=== PATIENT | female | born 1945 | race Caucasian/White ===

== ENCOUNTER 2017-08-30 14:58 | Observation (INO) | payer MEDICARE, OTHER ==
[2017-08-30] MEDS ORDERED: TRAMADOL HCL 50 MG TAB PO PRN (15:24)
[2017-08-30] MEDS ORDERED: ONDANSETRON 4 MG/2 ML VIAL IV PRN (15:24)
[2017-08-30] MEDS ORDERED: ACETAMINOPHEN 500 MG TAB PO PRN (15:24)
--- NOTE | 2017-08-30 15:36 | P.HP ---
Certification for Inpatient Patient admitted to: Observation With expected LOS: <2 Midnights Patient will require the following post-hospital care: Other Practitioner: I am a practitioner with admitting privileges, knowledge of patient current condition, hospital course, and medical plan of care. Services: Services provided to patient in accordance with Admission requirements found in Title 42 Section 412.3 of the Code of Federal Regulations Patient History Date of Service: 08/30/17 Primary Care Provider: Dr. Powell Reason for admission: Failed outpatient UTI, now with ESBL History of Present Illness: 71-year-old female presented to the hospital as a direct admission. Patient was found to have a UTI and failed outpatient therapy. Urine culture was positive for E coli and enterococcus faecalis. Culture also confirmed ESBL. Patient was admitted for IV antibiotic therapy and set up for possible home antibiotic therapy. The patient has been reporting increasing dysuria. No fever or chills noted. Patient has a history of UTIs in the past. She also reports a history of urinary incontinence and kidney stones. She denies any significant nausea, vomiting. Patient has hypertension, depression with anxiety , chronic pancreatitis, GERD with hiatal hernia. When I evaluated the patient she did not appear septic. Patient reports some incontinence. She use using briefs. It is been a while since she has last seen urology. Allergies zolpidem [From Ambien] Allergy (Severe, Verified 08/13/16 05:42) Unknown Home medications list reviewed: Yes Home Medications: Citalopram [Celexa*] 20 mg PO DAILY 08/13/16 Lipase/Protease/Amylase [Raza Kim 36,000 Units Capsule] 2 cap PO TID 08/13/16 Pantoprazole [Protonix Tab*] 40 mg PO BID 08/13/16 Lisinopril/Hydrochlorothiazide [Lisinopril-Hctz 20-12.5 mg Tab] 1 each PO DAILY #30 tablet 08/17/16 Nystatin Cream [Mycostatin 100MU/Gm Cream*] 1 appl TOP BID #1 tube 08/17/16 Nitrofuran Macro [Macrobid*] 100 mg PO BIDWM #30 cap 11/18/16 - Past Medical/Surgical History Diabetic: No -: Chronic pancreatitis -: Gastroesophageal reflux disease w Hiatal hernia -: Esophageal spasm -: Attention deficit disorder -: HTN -: Depression with anxiety -: Hyperlipidemia -: Chronic pain -: Fatty liver, nonalcoholic -: Urinary incontinence/Nephrolithiasis -: Recurrent UTI -: Hysterectomy -: Cholecystectomy -: Appendectomy -: back surgery -: knee surgery -: foot surgery -: EGD/ERCP -: Cardiac catheterization Psychosocial/ Personal History: Patient lives at home - Family History Father -: Diabetes Mother -: Diabetes - Social History Smoking Status: Unknown if ever smoked Alcohol use: No CD- Drugs: No Caffeine use: Yes Place of Residence: Home Review of Systems General: As per HPI Eyes: Unremarkable ENT: Unremarkable Respiratory: Unremarkable Cardiovascular: Unremarkable Gastrointestinal: Unremarkable Genitourinary: Dysuria, Frequency, Urgency, Incontinence, As per HPI Musculoskeletal: Unremarkable Integumentary: Unremarkable Neurological: Unremarkable Lymphatics: Unremarkable Physical Examination - Physical Exam General: Alert, In no apparent distress, Oriented x3, Cooperative HEENT: Atraumatic, Normocephalic, PERRLA, Mucous membr. moist/pink Neck: Supple, No Thyromegaly Respiratory: Clear to auscultation bilaterally, Normal air movement Cardiovascular: Normal pulses, Regular rate/rhythm Gastrointestinal: Normal bowel sounds, Soft and benign, Non-distended, No ascites, No tenderness, No masses, No rebound, No guarding Musculoskeletal: No erythema, No tenderness, No warmth Integumentary: No tenderness/swelling, No erythema, No warmth, No cyanosis Neurological: Normal speech, Normal strength at 5/5 x4 extr, Normal tone, Normal affect Lymphatics: No axilla or inguinal lymphadenopathy Assessment and Plan - Problems (Diagnosis) (1) UTI (urinary tract infection) Current Visit: Yes Status: Acute Plan: Patient failed outpatient therapy. Urine culture positive for E coli and Enterococcus. Confirmed ESBL noted. Patient will start IV antibiotic therapy- meropenem. Patient will require PICC line. Patient will need a course of 7 days of antibiotic therapy. Will try to arrange for home antibiotics. Will recheck urine culture and blood cultures. Will obtain lab. Qualifiers: Urinary tract infection type: site unspecified Hematuria presence: without hematuria Qualified Code(s): N39.0 - Urinary tract infection, site not specified (2) ESBL (extended spectrum beta-lactamase) producing bacteria infection Current Visit: Yes Status: Acute Plan: Continue as above. (3) Hiatal hernia with GERD Current Visit: Yes Status: Chronic Plan: Will continue with her medication. Patient takes Protonix twice daily. (4) HTN (hypertension) Current Visit: Yes Status: Chronic Plan: Will continue with her medication. Will verify home medication. Qualifiers: Hypertension type: essential hypertension Qualified Code(s): I10 - Essential (primary) hypertension (5) Hyperlipidemia Current Visit: Yes Status: Chronic Plan: Will continue with medication Qualifiers: Hyperlipidemia type: unspecified Qualified Code(s): E78.5 - Hyperlipidemia , unspecified (6) Depression with anxiety Current Visit: Yes Status: Chronic Plan: Will continue with her medication (7) Failure of outpatient treatment Current Visit: Yes Status: Acute Plan: Continue as above (8) Chronic pancreatitis Current Visit: No Status: Chronic Plan: Overall stable. Will continue with her medication. (9) Chronic pain syndrome Current Visit: No Status: Chronic Plan: Continue with pain control medication. (10) Fatty liver Current Visit: No Status: Chronic Plan: Continue medication Discharge Plan: Home Plan to discharge in: 24 Hours - Advance Directives Does patient have a Living Will: No Does patient have a Durable POA for Healthcare: No - Code Status/Comfort Care Code Status Assessed: Yes Time Spent Managing Pts Care (In Minutes): 55
[2017-08-30 16:16] LABS: Absolute Lymphocytes (CBC) 1.9 K/uL (0.7-4.9); Absolute Monocytes 0.5 K/uL (0.1-1.3); Absolute Neutrophil 4.5 K/uL (1.8-8.0); Basophils % 0.9 % (0-1.3); Hematocrit 38.8 % (36.0-45.0); Lymphocytes % 26.4 % (15.3-44.8); MCH 28.6 pg (27.0-35.0); MCV 84.3 fL (80-100); MPV 8.3 fL (7.6-11.3)
[2017-08-30 16:34] LABS: Magnesium 2.5 mg/dL (1.8-2.4)
[2017-08-30 16:42] VITALS: BMI 32.5
[2017-08-30 16:49] VITALS: O2SAT 98
[2017-08-30] MEDS: ENOXAPARIN 40 MG/0.4 ML SQ SCH (17:25)
[2017-08-30] MEDS: PANTOPRAZOLE 40MG TABLET PO SCH (17:25)
[2017-08-30] MEDS: AMYLASE/LIPASE/PROTEASE CAP PO SCH ×2 (17:25→19:57)
[2017-08-30 18:06] LABS: Urine Appearance CLEAR; Urine Bilirubin NEGATIVE (NEG); Urine Blood NEGATIVE (NEG); Urine Color YELLOW; Urine Glucose NEGATIVE (NEG); Urine Microscopic Reflex ORDER UMIC; Urine Protein NEGATIVE (NEG); Urine Urobilinogen 0.2 mg/dL (0.2-1.0); Urine pH 5.5 (5.0-7.0)
[2017-08-30 18:12] LABS: Urine Bacteria >50 /HPF (<20); Urine Culture Reflex Order REFLEXED; Urine RBC NONE SEEN /HPF (NONE SEEN)
[2017-08-30] MEDS ORDERED: GABAPENTIN 300 MG CAP PO SCH (21:00)
[2017-08-30] MEDS: Meropenem 1,000 MG in NA CHLORIDE 0.9% 100 ML IV SCH (21:00)
[2017-08-30] MEDS ORDERED: ATORVASTATIN 10 MG TAB PO SCH (21:00)
[2017-08-30] MEDS ORDERED: Meropenem 1000 MG/VIAL IV SCH (21:00)
[2017-08-31] MEDS ORDERED: AMLODIPINE 5 MG TAB PO ONE (00:25)
[2017-08-31] MEDS ORDERED: LIDOCAINE 1% MPF 5 ML VIAL ONE (04:36)
[2017-08-31 06:00] LABS: Absolute Monocytes 0.6 K/uL (0.1-1.3); Absolute Neutrophil 3.3 K/uL (1.8-8.0); Basophils % 0.5 % (0-1.3); Eosinophils % 3.8 % (0-4.4); Hematocrit 36.3 % (36.0-45.0); Lymphocytes % 32.8 % (15.3-44.8); MCH 28.2 pg (27.0-35.0); MCV 85.7 fL (80-100); MPV 8.9 fL (7.6-11.3); Monocytes % 9.9 % (3.3-12.3); RBC Red Blood Cell Count 4.23 M/uL (3.86-4.86)
[2017-08-31 06:02] LABS: Magnesium 2.3 mg/dL (1.8-2.4); Potassium 4.1 mmol/L (3.5-5.1)
[2017-08-31] MEDS ORDERED: PANTOPRAZOLE 40MG TABLET PO SCH (06:30)
[2017-08-31] MEDS: AMYLASE/LIPASE/PROTEASE CAP PO SCH ×3 (06:35→16:22)
[2017-08-31] MEDS: PANTOPRAZOLE 40MG TABLET PO SCH ×2 (06:35→16:23)
[2017-08-31] MEDS: Meropenem 1,000 MG in NA CHLORIDE 0.9% 100 ML IV SCH ×2 (07:26→17:37)
--- NOTE | 2017-08-31 08:15 | RAD REPORT ---
EXAM DESCRIPTION: RAD - Chest Single View - 08/31/2017 5:34 am CLINICAL HISTORY: PICC Placement COMPARISON: Chest Single View dated 03/15/2017; Chest Single View dated 11/15/2016; Chest Single View d ated 04/29/2016; Chest Single View dated 10/18/2015 FINDINGS: Portable chest was obtained following placement of a right upper extremity PICC line. The catheter tip projects over the SVC.
[2017-08-31] MEDS ORDERED: LISINOPRIL 10 MG TAB PO SCH (09:00)
[2017-08-31] MEDS ORDERED: CITALOPRAM 10 MG TABLET PO SCH (09:00)
[2017-08-31] MEDS: ENOXAPARIN 40 MG/0.4 ML SQ SCH (09:46)
--- NOTE | 2017-08-31 10:29 | P.DS ---
Admission Date: 08/30/17 Discharge Date: 08/31/17 Primary Care Provider: Dr. Powell Disposition: DC HOME/HOME HEALTH CARE Discharge Condition: GOOD Reason for Admission: Failed outpatient UTI, now with ESBL - Problems (1) UTI (urinary tract infection) Onset Date: 08/31/17 Current Visit: Yes Status: Acute Qualifiers: Urinary tract infection type: site unspecified Hematuria presence: without hematuria Qualified Code(s): N39.0 - Urinary tract infection, site not specified (2) ESBL (extended spectrum beta-lactamase) producing bacteria infection Onset Date: 08/31/17 Current Visit: Yes Status: Acute (3) Hiatal hernia with GERD Onset Date: 08/31/17 Current Visit: Yes Status: Chronic (4) HTN (hypertension) Onset Date: 08/31/17 Current Visit: Yes Status: Chronic Qualifiers: Hypertension type: essential hypertension Qualified Code(s): I10 - Essential (primary) hypertension (5) Hyperlipidemia Onset Date: 08/31/17 Current Visit: Yes Status: Chronic Qualifiers: Hyperlipidemia type: unspecified Qualified Code(s): E78.5 - Hyperlipidemia , unspecified (6) Depression with anxiety Onset Date: 08/31/17 Current Visit: Yes Status: Chronic (7) Failure of outpatient treatment Onset Date: 08/31/17 Current Visit: Yes Status: Acute (8) Chronic pancreatitis Onset Date: 08/31/17 Current Visit: Yes Status: Chronic Qualifiers: Pancreatitis type: unspecified pancreatitis type Qualified Code(s): K86.1 - Other chronic pancreatitis (9) Chronic pain syndrome Onset Date: 08/31/17 Current Visit: Yes Status: Chronic (10) Fatty liver Onset Date: 08/31/17 Current Visit: Yes Status: Chronic Brief History of Present Illness: 71-year-old female presented to the hospital as a direct admission. Patient was found to have a UTI and failed outpatient therapy. Urine culture was positive for E coli and enterococcus faecalis. Culture also confirmed ESBL. Patient was admitted for IV antibiotic therapy and set up for possible home antibiotic therapy. The patient has been reporting increasing dysuria. No fever or chills noted. Patient has a history of UTIs in the past. She also reports a history of urinary incontinence and kidney stones. She denies any significant nausea, vomiting. Patient has hypertension, depression with anxiety , chronic pancreatitis, GERD with hiatal hernia. When I evaluated the patient she did not appear septic. Patient reports some incontinence. She use using briefs. It is been a while since she has last seen urology. Hospital Course: Patient was admitted for treatment of UTI. Patient had failed outpatient treatment. Patient also found to have E coli and Enterococcus. Urine culture was positive for ESBL. Repeat urine culture was obtained. Patient was started on IV antibiotic therapy. PICC line was placed. At discharge, patient will continue with meropenem 1000 mg IV twice daily for total 7 days. Recommendation is to recheck catheterized urine culture in 5-7 days to monitor resolution. Patient made require further treatment if infection still remains. Recommendation is for the patient follow up with urology as an outpatient to further evaluate. Patient with history of nephrolithiasis. UTI prevention education will be provided. Patient has hypertension. Patient continue with her medication-lisinopril hydrochlorothiazide. Recommendation is to maintain blood pressures less 150/ 80. Further adjustment can be done by her PCP. Patient has hyperlipidemia. Patient continue with her medication-Zocor. Patient has depression with anxiety. Patient will continue with Celexa 20 mg daily. Patient has chronic pancreatitis. Patient will continue with Creon. Patient has GERD. Patient will continue with Protonix 40 mg 1 pill twice daily. Patient has chronic pain. Patient may continue with Neurontin. Patient may benefit with pain management referral as an outpatient to further assess and treat. Further adjustment in medication can be done by her PCP. Vital Signs/Physical Exam: Temp Pulse Resp BP Pulse Ox 97.6 F 56 20 130/72 95 08/31/17 08:00 08/31/17 09:45 08/31/17 08:00 08/31/17 09:45 08/31/17 08:00 General: Alert, In no apparent distress, Oriented x3, Cooperative HEENT: Atraumatic Neck: Supple Respiratory: Clear to auscultation bilaterally, Normal air movement Cardiovascular: Normal pulses, Regular rate/rhythm Gastrointestinal: Normal bowel sounds, Soft and benign, Non-distended, No tenderness, No masses, No rebound, No guarding Musculoskeletal: No erythema, No tenderness, No warmth Integumentary: No tenderness/swelling, No erythema, No warmth, No cyanosis Neurological: Normal speech, Normal strength at 5/5 x4 extr, Normal tone, Normal affect Lymphatics: No axilla or inguinal lymphadenopathy Laboratory Data at Discharge: WBC 6.2 K/uL (4.3-10.9) 08/31/17 05:22 Hgb 11.9 g/dL (12.0-15.0) L 08/31/17 05:22 Hct 36.3 % (36.0-45.0) 08/31/17 05:22 Plt Count 230 K/uL (152-406) 08/31/17 05:22 Sodium 139 mmol/L (136-145) 08/31/17 05:22 Potassium 4.1 mmol/L (3.5-5.1) 08/31/17 05:22 BUN 15 mg/dL (7-18) 08/31/17 05:22 Creatinine 1.00 mg/dL (0.55-1.3) 08/31/17 05:22 Glucose 105 mg/dL (74-106) 08/31/17 05:22 Magnesium 2.3 mg/dL (1.8-2.4) 08/31/17 05:22 Home Medications: Citalopram [Celexa*] 20 mg PO DAILY 08/13/16 Lipase/Protease/Amylase [Raza Kim 36,000 Units Capsule] 2 cap PO TID 08/13/16 Pantoprazole [Protonix Tab*] 40 mg PO BID 08/13/16 Gabapentin [Neurontin*] 100 mg PO TID 08/30/17 Lisinopril/Hydrochlorothiazide [Lisinopril-Hctz 10-12.5 mg Tab] 1 each PO DAILY 08/30/17 Simvastatin 20 mg PO BEDTIME 08/30/17 Patient Discharge Instructions: 1. Patient will need to follow up with her PCP in 1 week to follow up this hospitalization. 2. Patient was admitted for failed outpatient treatment of UTI. Patient also found to have E coli and Enterococcus. Urine culture was positive for ESBL. Patient was admitted for IV antibiotic therapy. PICC line was placed. At discharge, patient will also continue with meropenem 1000 mg IV twice daily for total 7 days. This will be continued with home health at home. Recommendation is to recheck cath urine in 7 days to monitor resolution. Patient may require further treatment if infection persists. Recommendation is for the patient to see urology as an outpatient to further evaluate. Patient with history of nephrolithiasis. UTI prevention education will be provided. 3. Patient has hypertension. Patient continue with her medication-lisinopril hydrochlorothiazide. Recommendation is to maintain blood pressures less 150/80. Further adjustment can be done by her PCP. 4. Patient has hyperlipidemia. Patient continue with her medication. 5. Patient has depression with anxiety. Patient will continue with Celexa 20 mg daily. 6. Patient has chronic pancreatitis. Patient will continue with Creon. 7. Patient has GERD. Patient will continue with Protonix 40 mg 1 pill twice daily. 8. Patient has chronic pain. Patient may continue with Neurontin. Patient may benefit with chronic pain management referral to further evaluate. Further adjustment in medication can be done by her PCP. Diet: AHA Activity: Ad ange Time spent managing pt's care (in minutes): 55
[2017-08-31] MEDS ORDERED: PROTEASE PO SCH (14:00)
[2017-08-31] MEDS ORDERED: AMYLASE PO SCH (14:00)
[2017-08-31] MEDS ORDERED: LIPASE PO SCH (14:00)
[2017-08-31 17:18] VITALS: BP 144/68; TEMP 98
[2017-08-31] MEDS ORDERED: HOME MED 1 EA UNK (Simvastatin [Simvastatin] 20 MG) PO SCH (21:00)
== END 2017-08-31 18:31 | disposition home health service (06) ==
LOC: INTOOBSV 15:16 → 2ND 15:16
PROVIDERS: ADMIT Family Medicine; ATTEND Family Medicine
PROC: 02HV33Z Insertion of Infusion Device into Superior Vena Cava, Percutaneous Approach (ICD-10-PCS; principal; 2017-08-31)
DX: N39.0 Urinary tract infection, site not specified (principal); B96.20 Unspecified Escherichia coli [E. coli] as the cause of diseases classified elsewhere; B95.2 Enterococcus as the cause of diseases classified elsewhere; Z16.12 Extended spectrum beta lactamase (ESBL) resistance; I10 Essential (primary) hypertension; F32.9 Major depressive disorder, single episode, unspecified; F41.8 Other specified anxiety disorders; K86.1 Other chronic pancreatitis; K21.9 Gastro-esophageal reflux disease without esophagitis; K44.9 Diaphragmatic hernia without obstruction or gangrene; G89.4 Chronic pain syndrome; K76.0 Fatty (change of) liver, not elsewhere classified; E78.5 Hyperlipidemia, unspecified
CPT/HCPCS: 36415 ×2; 36569; 71045; 80048 ×2; 83735 ×2; 84145; 85025 ×2; 87040 ×2; 87077 ×2; 87086; 87088; 87186 ×2; G0378; G0379; J1650 ×2; 81003; 81015

== ENCOUNTER 2017-09-26 17:02 | Emergency (ER) | payer OTHER ==
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
[2017-09-26 20:23] VITALS: TEMP 98.4
[2017-09-26 20:24] VITALS: O2SAT 100
[2017-09-26 20:25] VITALS: BP 172/136
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
== END 2017-09-26 20:17 | disposition home or self-care (01) ==
LOC: ER 17:02
DX: S93.402A Sprain of unspecified ligament of left ankle, initial encounter (principal); S40.012A Contusion of left shoulder, initial encounter; Y08.89XA Assault by other specified means, initial encounter; Y93.89 Activity, other specified; Y92.89 Other specified places as the place of occurrence of the external cause; Y99.8 Other external cause status; Z88.8 Allergy status to other drugs, medicaments and biological substances; I10 Essential (primary) hypertension; E78.5 Hyperlipidemia, unspecified; F41.9 Anxiety disorder, unspecified; F17.210 Nicotine dependence, cigarettes, uncomplicated
CPT/HCPCS: 70450; 72125; 99283

== ENCOUNTER 2018-03-01 10:30 | Emergency (ER) | payer MEDICARE, OTHER ==
[2011-09-29 16:55] VITALS: BP 113/72
--- OUTSIDE RECORDS SUMMARY | 2018-03-01 10:32 | XMS REPORT ---
:1945 Author Organization [employer] Care Team Providers Name Role Phone Andre Dmitry Provider Role Unavailable Allergies No Known Allergies Problems Problem Type Condition Code Onset Dates Condition Status Problem Esophageal stenosis K22.2 Active Problem Benign essential hypertension I10 Active Problem Hyperlipidemia, mixed E78.2 Active Problem Chronic GERD K21.9 Active Problem Vitamin D deficiency E55.9 Active Problem Insomnia, unspecified type G47.00 Active Problem Depression with anxiety F41.8 Active Problem Kidney stone N20.0 Active Problem Chronic pancreatitis K86.1 Active Problem Hiatal hernia K44.9 Active Problem Chronic gastritis without bleeding, K29.50 Active unspecified gastritis type Problem Duodenitis K29.80 Active Problem Mixed stress and urge urinary N39.46 Active incontinence Problem Nonalcoholic fatty liver disease K76.0 Active Problem Ulcer of esophagus without bleeding K22.10 Active Medications No Known Medications Results No Known Results Summary Purpose [employer] Submission
--- OUTSIDE RECORDS SUMMARY | 2018-03-01 10:32 | XMS REPORT ---
:1945 Author Organization [employer] Care Team Providers Name Role Phone Dmitry Powell Provider Role Unavailable Allergies No Known Allergies Problems Problem Type Condition Code Onset Dates Condition Status Problem Esophageal stenosis K22.2 Active Problem Benign essential hypertension I10 Active Problem Hyperlipidemia, mixed E78.2 Active Problem Chronic GERD K21.9 Active Assessment Chronic pancreatitis K86.1 Active Problem Vitamin D deficiency E55.9 Active Assessment Hyperlipidemia, mixed E78.2 Active Assessment Chronic GERD K21.9 Active Problem Insomnia, unspecified type G47.00 Active Problem Depression with anxiety F41.8 Active Problem Kidney stone N20.0 Active Problem Chronic pancreatitis K86.1 Active Problem Hiatal hernia K44.9 Active Assessment Depression with anxiety F41.8 Active Assessment Benign essential hypertension I10 Active Assessment Mixed stress and urge urinary N39.46 Active incontinence Assessment Insomnia, unspecified type G47.00 Active Problem Chronic gastritis without bleeding, K29.50 Active unspecified gastritis type Problem Duodenitis K29.80 Active Problem Mixed stress and urge urinary N39.46 Active incontinence Assessment Nonalcoholic fatty liver disease K76.0 Active Problem Nonalcoholic fatty liver disease K76.0 Active Problem Ulcer of esophagus without bleeding K22.10 Active Medications Medication Code Code Instructions Start End Status Dosage System Date Date Culturelle FOR[facility] NAMED [facility] 62090264228 - Orally Active not defined Nystatin FORMERLY NAMED [facility] 29757836651 232571 UNIT/GM Active 1 application Externally to affected Twice a day area Simvastatin FORMER[facility] NAMED [facility] 70480450053 20 MG Orally Active 1 tablet in Once a day the evening Clotrimazole FORMER[facility] NAMED [facility] 09545345300 1 % Externally Active 1 application Twice a day to affected area Trazodone HCl FORMER[facility] NAMED [facility] 40629906541 100 MG Orally Active 1 tablet at Once a day bedtime Zestoretic FOR[facility] NAMED [facility] 35564675524 10-12.5 MG Active 1 tablet Orally Twice a day Protonix FORMER[facility] NAMED [facility] 36007411655 40 MG Orally Active 1 tablet Twice a day Estrace FORMER[facility] NAMED [facility] 04466795398 0.1 MG/GM Active as directed Vaginal twice weekly Neurontin FORMER[facility] NAMED [facility] 11877624481 300 MG Orally Active 1 capsule Three times a before day bedtime Citalopram FORMER[facility] NAMED [facility] 30251479943 40 MG Orally Active 1 tablet Hydrobromide Once a day Creon FORMER[facility] NAMED [facility] 71065612851 44520-21886 Active 1 cap UNIT Orally three times a day Results No Known Results Summary Purpose [employer] Submission
--- OUTSIDE RECORDS SUMMARY | 2018-03-01 10:32 | XMS REPORT ---
:1945 Author Organization [employer] Care Team Providers Name Role Phone Shakeel Jennie Provider Role Unavailable Allergies, Adverse Reactions, Alerts Substance Reaction Event Type N.K.D.A. Info Not Available Non Drug Allergy Problems Problem Type Condition Code Onset Dates [...] Active Problem Hiatal hernia K44.9 Active Assessment Kidney stone N20.0 Active Assessment Recurrent UTI N39.0 Active Problem Chronic gastritis without bleeding, K29.50 Active unspecified gastritis type Problem Duodenitis K29.80 Active Problem Mixed stress and urge urinary N39.46 Active incontinence Problem Nonalcoholic fatty liver disease K76.0 Active Problem Ulcer of esophagus without bleeding K22.10 Active Medications Medication Code System Code Instructions Start Date End Date Status Dosage Citalopram NDC 0 Active not defined Hydrobromide Results Name Result Date Reference Range Unit Abnormality Flag URINALYSIS AUTO W/O SCOPE (54534) ----MARY 1+ [id number] ----NIT neg [id number] ----PROTEIN neg [id number] ----pH 5.0 20170930 ----BLO trace [id number] ----GLUCOSE neg [id number] ----BILIRUBIN neg [id number] ----KETONES neg [id number] ----SPECIFIC GRAVITY >=1.030 [id number] Summary Purpose [employer] Submission
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
[2018-03-01] MEDS ORDERED: NA CHLORIDE 0.9% 1,000 ML ONE (12:56)
[2018-03-01] MEDS ORDERED: ONDANSETRON 4 MG/2 ML VIAL ONE ×2 (12:56→15:02)
[2018-03-01] MEDS ORDERED: MORPHINE 4 MG/ML SYR ONE ×2 (12:56→15:02)
[2018-03-01] MEDS ORDERED: LIDOCAINE VISCOUS 2% SOLN 15 ML UDC ONE (12:57)
[2018-03-01] MEDS ORDERED: MAGNE/ALUM HYDROXD 30 ML UCUP ONE (12:57)
[2018-03-01] MEDS ORDERED: FAMOTIDINE 20 MG/2 ML VIAL IV ONE (12:57)
[2018-03-01 13:45] LABS: Albumin 3.5 g/dL (3.4-5.0); Bilirubin Direct 0.1 mg/dL (0-0.2); Bilirubin Total 0.4 mg/dL (0.2-1.0); Potassium 4.5 mmol/L (3.5-5.1)
[2018-03-01 14:18] LABS: Absolute Lymphocytes (CBC) 2.3 K/uL (0.7-4.9); Absolute Monocytes 0.8 K/uL (0.1-1.3); Absolute Neutrophil 4.3 K/uL (1.8-8.0); Basophils % 0.7 % (0-1.3); Eosinophils % 2.6 % (0-4.4); Hematocrit 37.8 % (36.0-45.0); Lymphocytes % 29.5 % (15.3-44.8); MPV 8.2 fL (7.6-11.3); Monocytes % 10.3 % (3.3-12.3); RBC Red Blood Cell Count 4.56 M/uL (3.86-4.86)
--- NOTE | 2018-03-01 14:43 | ER ---
Nurse's Notes [facility] Name: Isadora Bettencourt Age: 72 yrs Sex: Female : 1945 Arrival Date: 03/01/2018 Time: 10:31 Bed 26 Private MD: Dmitry Powell Diagnosis: Acute pancreatitis Presentation: 03/01 11:26 Presenting complaint: Patient states: mid abd jun since yesterday, worse today, iw described as achy, constant, denies vomiting or diarrhea, hx of pancreatitis, 12/15 pain. Transition of care: patient was not received from another setting of care. Onset of symptoms was March 01, 2018. Risk Assessment: Do you want to hurt yourself or someone else? Patient reports no desire to harm self or others. Initial Sepsis Screen: Does the patient meet any 2 criteria? No. Patient's initial sepsis screen is negative. Does the patient have a suspected source of infection? No. Patient's initial sepsis screen is negative. Care prior to arrival: None. 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 - Social history:: Smoking status: Patient/guardian denies using tobacco, Patient/guardian denies using alcohol, street drugs, The patient lives with family. - Ebola Screening: : Patient negative for fever greater than or equal to 101.5 degrees Fahrenheit, and additional compatible Ebola Virus Disease symptoms Patient denies exposure to infectious person Patient denies travel to an Ebola-affected area in the 21 days before illness onset No symptoms or risks identified at this time. - Family history:: not pertinent. - Hospitalizations: : No recent hospitalization is reported. Screenin:17 Abuse screen: Denies threats or abuse. Denies injuries from another. Nutritional aj screening: No deficits noted. Tuberculosis screening: No symptoms or risk factors identified. Fall Risk None identified. Assessment: 13:17 General: Appears in no apparent distress. comfortable, Behavior is calm, cooperative, aj appropriate for age. Pain: Complains of pain in right upper quadrant and left upper quadrant. Neuro: Level of Consciousness is awake, alert, obeys commands, Oriented to person, place, time, situation, Appropriate for age. Respiratory: Airway is patent Respiratory effort is even, unlabored, Respiratory pattern is regular, symmetrical. GI: Abdomen is obese, Bowel sounds present X 4 quads. Abd is soft and non tender X 4 quads. Reports upper abdominal pain, nausea. Derm: Skin is intact, is healthy with good turgor, Skin is pink, warm \T\ dry. normal. Vital Signs: 11:29 BP 182 / 76; Pulse 65; Resp 16; Temp 98.0; Pulse Ox 99% on R/A; Weight 81.65 kg; Height iw 5 ft. 1 in. (154.94 cm); Pain 10/10; 15:34 BP 157 / 70; Pulse 66; Resp 16; Pulse Ox 98% on R/A; rv 11:29 Body Mass Index 34.01 (81.65 kg, 154.94 cm) iw ED Course: 10:31 Patient arrived in ED. as 10:32 Dmitry Powell DO is Private Physician. as 11:28 Triage completed. iw 11:29 Arm band placed on. iw 11:33 Janene Toledo, RN is Primary Nurse. aj 12:11 Anatoliy Cassidy MD is Attending Physician. ma2 12:22 Requested pain medication and a blanket. Provided blanket and informed that her aj provider would be in as soon as possible. 13:17 Patient has correct armband on for positive identification. Pulse ox on. NIBP on. aj 13:17 Inserted saline lock: 20 gauge in left EJ, using aseptic technique. Blood collected. aj Missed attempt(s): 22 gauge in right forearm. Bleeding controlled, band aid applied, catheter tip intact. 15:22 No provider procedures requiring assistance completed. IV discontinued, bleeding rv controlled, No redness/swelling at site. Pressure dressing applied. Administered Medications: 13:19 Drug: GI Cocktail without - (Maalox Suspension 30 ml, Lidocaine Liquid 2 % 15 aj ml) Route: PO; 15:21 Follow up: Response: Pain is decreased rv 13:19 Drug: morphine 4 mg Route: IVP; Site: left jugular; aj 15:21 Follow up: Response: Pain is decreased rv 13:19 Drug: Zofran 4 mg Route: IVP; Site: left jugular; aj 15:21 Follow up: Response: Nausea is decreased rv 13:20 Drug: NS 0.9% 1000 ml Route: IV; Rate: 1 bolus; Site: left jugular; aj 15:20 Follow up: IV Status: Completed infusion rv 13:20 Drug: Pepcid 20 mg Route: IVP; Site: left jugular; aj 15:20 Follow up: Response: Pain is decreased rv 15:00 Drug: morphine 2 mg Route: IVP; Site: left jugular; rv 15:22 Follow up: Response: Pain is decreased rv 15:00 Drug: Zofran 4 mg Route: IVP; Site: left jugular; rv 15:22 Follow up: Response: Nausea is decreased rv Outcome: 14:43 Discharge ordered by MD. fernandez 15:23 Discharged to home ambulatory. rv 15:23 Condition: good 15:23 Discharge instructions given to patient, Instructed on discharge instructions, follow up and referral plans. medication usage, Demonstrated understanding of instructions, follow-up care, medications, Prescriptions given X 1. 15:35 Patient left the ED. rv Signatures: Janene Toledo, RN Ann Marie Gavin Irene, RN RN iw Alzahri, Mohammad, MD MD ma2 Vicente, Ronaldo, RN RN rv
--- NOTE | 2018-03-01 14:44 | EDPHYS ---
Physician Documentation [facility] Name: Isadora Bettencourt Age: 72 yrs Sex: Female : 1945 Arrival Date: 03/01/2018 Time: 10:31 Bed 26 Private MD: Elio Powellh ED Physician Anatoliy Cassidy HPI: 03/01 12:52 This 72 yrs old Female presents to ER via Ambulatory with complaints of ma2 Abdominal Pain. 12:52 The patient presents with abdominal pain in the epigastric area. Onset: The ma2 symptoms/episode began/occurred gradually, 2 day(s) ago. The symptoms do not radiate. Associated signs and symptoms: Pertinent positives: Pertinent negatives: nausea and vomiting, anorexia, blood in stools, constipation, dysuria, headache, palpitations, vaginal discharge, vomiting blood. The symptoms are described as burning. Severity of pain: At its worst the pain was moderate in the emergency department the pain is unchanged. The patient has experienced similar episodes in the past. 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 - Social history:: Smoking status: Patient/guardian denies using tobacco, Patient/guardian denies using alcohol, street drugs, The patient lives with family. - Ebola Screening: : Patient negative for fever greater than or equal to 101.5 degrees Fahrenheit, and additional compatible Ebola Virus Disease symptoms Patient denies exposure to infectious person Patient denies travel to an Ebola-affected area in the 21 days before illness onset No symptoms or risks identified at this time. - Family history:: not pertinent. - Hospitalizations: : No recent hospitalization is reported. ROS: 12:52 Constitutional: Negative for fever, chills, and weight loss, ENT: Negative for injury, ma2 pain, and discharge, Cardiovascular: Negative for chest pain, palpitations, and edema, Respiratory: Negative for shortness of breath, cough, wheezing, and pleuritic chest pain, Back: Negative for injury and pain, : Negative for injury, bleeding, discharge, and swelling, MS/Extremity: Negative for injury and deformity, Psych: Negative for depression, anxiety, suicide ideation, homicidal ideation, and hallucinations, Allergy/Immunology: Negative for hives, rash, and allergies. 12:52 Abdomen/GI: Positive for abdominal pain, Negative for nausea and vomiting, nausea, diarrhea, abdominal cramps, rectal pain, bowel incontinence, flatulence. Exam: 12:52 Constitutional: This is a well developed, well nourished patient who is awake, alert, ma2 and in no acute distress. Chest/axilla: Normal chest wall appearance and motion. Nontender with no deformity. No lesions are appreciated. Cardiovascular: Regular rate and rhythm with a normal S1 and S2. No gallops, murmurs, or rubs. Normal PMI, no JVD. No pulse deficits. Respiratory: Lungs have equal breath sounds bilaterally, clear to auscultation and percussion. No rales, rhonchi or wheezes noted. No increased work of breathing, no retractions or nasal flaring. Abdomen/GI: Soft, non-tender, with normal bowel sounds. No distension or tympany. No guarding or rebound. No evidence of tenderness throughout. Vital Signs: 11:29 BP 182 / 76; Pulse 65; Resp 16; Temp 98.0; Pulse Ox 99% on R/A; Weight 81.65 kg; Height iw 5 ft. 1 in. (154.94 cm); Pain 10/10; 15:34 BP 157 / 70; Pulse 66; Resp 16; Pulse Ox 98% on R/A; rv 11:29 Body Mass Index 34.01 (81.65 kg, 154.94 cm) iw MDM: 12:11 Patient medically screened. ma2 12:52 Differential diagnosis: gastritis, gastroesophageal reflux disease, Hepatitis, ma2 pancreatitis. 14:41 Data reviewed: vital signs, nurses notes, lab test result(s). Counseling: I had a ma2 detailed discussion with the patient and/or guardian regarding: the historical points, exam findings, and any diagnostic results supporting the discharge/admit diagnosis, the presence of at least one elevated blood pressure reading (>120/80) during this emergency department visit, the need for outpatient follow up. Response to treatment: the patient's symptoms have markedly improved after treatment. 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 03/01 12:36 Order name: Basic Metabolic Panel; Complete Time: 14:09 ma2 03/01 12:36 Order name: CBC with Diff; Complete Time: 14:41 ma2 03/01 12:36 Order name: Creatinine for Radiology; Complete Time: 14:09 ma2 03/01 12:36 Order name: Hepatic Function; Complete Time: 14:09 ma2 03/01 12:36 Order name: Lipase; Complete Time: 14:09 ma2 03/01 12:36 Order name: IV Saline Lock; Complete Time: 13:31 ma2 03/01 12:36 Order name: Labs collected and sent; Complete Time: 13:32 ma2 Administered Medications: 13:19 Drug: GI Cocktail without - (Maalox Suspension 30 ml, Lidocaine Liquid 2 % 15 aj ml) Route: PO; 15:21 Follow up: Response: Pain is decreased rv 13:19 Drug: morphine 4 mg Route: IVP; Site: left jugular; aj 15:21 Follow up: Response: Pain is decreased rv 13:19 Drug: Zofran 4 mg Route: IVP; Site: left jugular; aj 15:21 Follow up: Response: Nausea is decreased rv 13:20 Drug: NS 0.9% 1000 ml Route: IV; Rate: 1 bolus; Site: left jugular; aj 15:20 Follow up: IV Status: Completed infusion rv 13:20 Drug: Pepcid 20 mg Route: IVP; Site: left jugular; aj 15:20 Follow up: Response: Pain is decreased rv 15:00 Drug: morphine 2 mg Route: IVP; Site: left jugular; rv 15:22 Follow up: Response: Pain is decreased rv 15:00 Drug: Zofran 4 mg Route: IVP; Site: left jugular; rv 15:22 Follow up: Response: Nausea is decreased rv Disposition: 03/01/18 14:43 Discharged to Home. Impression: Acute pancreatitis. - Condition is Stable. - Prescriptions for Tylenol- Codeine #4 300-60 mg Oral Tablet - take 1 tablet by ORAL route every 6 hours As needed; 6 tablet. - Medication Reconciliation Form, Thank You Letter, Antibiotic Education, Prescription Opioid Use form. - Follow up: Private Physician; When: Tomorrow; Reason: Continuance of care. Signatures: Dispatcher [employer] Janene Timmons, RN Maddy Robin RN RN iw Alzahri, Mohammad, MD MD ma2 Jay Sim RN RN rv Corrections: (The following items were deleted from the chart) 15:35 14:43 03/01/2018 14:43 Discharged to Home. Impression: Acute pancreatitis. Condition is rv Stable. Forms are Medication Reconciliation Form, Thank You Letter, Antibiotic Education, Prescription Opioid Use. Follow up: Private Physician; When: Tomorrow; Reason: Continuance of care. ma2
== END 2018-03-01 15:35 | disposition home or self-care (01) ==
LOC: ER 10:30
DX: K85.90 Acute pancreatitis without necrosis or infection, unspecified (principal); I10 Essential (primary) hypertension; E78.5 Hyperlipidemia, unspecified; F41.9 Anxiety disorder, unspecified; Z88.8 Allergy status to other drugs, medicaments and biological substances
CPT/HCPCS: 36415; 80048; 80076; 83690; 85025; 96361; 96374; 96375; 99284; J2405 ×2; J7030

== ENCOUNTER 2018-03-03 15:45 | Emergency (ER) | payer OTHER ==
--- OUTSIDE RECORDS SUMMARY | 2018-03-03 15:47 | XMS REPORT ---
[...] End Status Dosage System Date Date Citalopram [facility] 34827247967 40 MG Orally Active 0.5 tablet Hydrobromide Once a day Simvastatin ND 45179110658 20 MG Orally Active 1 tablet in Once a day the evening Clotrimazole [facility] 27927150780 1 % Externally Active 1 application Twice a day to affected area Nystatin [facility] 71937443599 946110 UNIT/GM Active 1 application Externally to affected Twice a day area Protonix [facility] 86813254547 40 MG Orally Active 1 tablet Twice a day Creon [facility] 77214193031 [id number] Active 1 cap UNIT Orally three times a day Trazodone HCl ND 53536835723 100 MG Orally August 27, Active 1Take 1/2 tab Once a day 2018 QHS x 1 week then 1 tab QHS Neurontin [facility] 67751697008 300 MG Orally Active 1 capsule Three times a before day bedtime Estrace [facility] 78481038411 0.1 MG/GM September 09, Active as directed Vaginal twice 2018 weekly Culturelle [facility] 31686016713 - Orally Active not defined Zestoretic [facility] 04724838119 10-12.5 MG Active 1 tablet Orally Once a day Results No Known Results Summary Purpose [employer]Clinical[employer] Submission
--- OUTSIDE RECORDS SUMMARY | 2018-03-03 15:48 | XMS REPORT ---
[...] End Status Dosage System Date Date Culturelle [facility] 20207383265 - Orally Active not defined Nystatin [facility] 08390918984 358661 UNIT/GM Active 1 application Externally to affected Twice a day area Simvastatin [facility] 00434733869 20 MG Orally Active 1 tablet in Once a day the evening Clotrimazole [facility] 05664878984 1 % Externally Active 1 application Twice a day to affected area Trazodone HCl [facility] 93789985645 100 MG Orally Active 1 tablet at Once a day bedtime Zestoretic [facility] 21414544842 10-12.5 MG Active 1 tablet Orally Twice a day Protonix [facility] 22097664609 40 MG Orally Active 1 tablet Twice a day Estrace [facility] 81263631146 0.1 MG/GM Active as directed Vaginal twice weekly Neurontin [facility] 45588286061 300 MG Orally Active 1 capsule Three times a before day bedtime Citalopram [facility] 25629492113 40 MG Orally Active 1 tablet Hydrobromide Once a day Creon [facility] 47436317553 66685-79994 Active 1 cap UNIT Orally three times a day Results No Known Results Summary Purpose eClinicalWorks Submission
--- OUTSIDE RECORDS SUMMARY | 2018-03-03 15:48 | XMS REPORT ---
[...] Unit Abnormality Flag URINALYSIS AUTO W/O SCOPE ([id number]) ----MARY 1+ [id number] ----NIT neg [id number] ----PROTEIN neg [id number] ----pH 5.0 [id number] ----BLO trace [id number] ----GLUCOSE neg [id number] ----BILIRUBIN neg [id number] ----KETONES neg [id number] ----SPECIFIC GRAVITY >=1.030 [id number] Summary Purpose eClinicalWorks Submission
--- OUTSIDE RECORDS SUMMARY | 2018-03-03 15:48 | XMS REPORT ---
[...] Medications Results No Known Results Summary Purpose [employer] Submission
[2018-03-03 17:39] LABS: Urine Blood TRACE (NEG); Urine Glucose NEGATIVE (NEG); Urine Protein NEGATIVE (NEG); Urine Specific Gravity >1.030 (1.005-1.030); Urine pH 5.5 (5.0-7.0)
[2018-03-03 18:04] LABS: Urine Bacteria 20-50 /HPF (<20); Urine Culture Reflex Order NOT NEEDED
[2018-03-03 18:10] LABS: Absolute Lymphocytes (CBC) 2.3 K/uL (0.7-4.9); Absolute Monocytes 0.8 K/uL (0.1-1.3); Absolute Neutrophil 5.3 K/uL (1.8-8.0); Basophils % 0.5 % (0-1.3); Eosinophils % 1.7 % (0-4.4); Lymphocytes % 27.1 % (15.3-44.8); MPV 8.2 fL (7.6-11.3); Monocytes % 9.3 % (3.3-12.3); RBC Red Blood Cell Count 4.42 M/uL (3.86-4.86)
[2018-03-03 18:29] LABS: ALT/SGPT 15 U/L (12-78); AST/SGOT 11 U/L (15-37); Albumin 3.5 g/dL (3.4-5.0); Alkaline Phosphatase 89 U/L (45-117); BUN Blood Urea Nitrogen 17 mg/dL (7-18); Bicarbonate 27 mmol/L (21-32); Bilirubin Direct < 0.1 mg/dL (0-0.2); Bilirubin Total 0.3 mg/dL (0.2-1.0); Glucose Level 128 mg/dL (74-106); Lipase 444 U/L (73-393); Potassium 3.9 mmol/L (3.5-5.1); Protein, Total 7.6 g/dL (6.4-8.2); Sodium Level 140 mmol/L (136-145)
[2018-03-03] MEDS ORDERED: CODEINE 30MG/APAP 300MG TAB ONE (19:15)
[2018-03-03] MEDS ORDERED: MAGNE/ALUM HYDROXD 30 ML UCUP ONE (19:15)
[2018-03-03] MEDS ORDERED: ONDANSETRON 4 MG (ODT) TAB ONE (19:16)
[2018-03-03] MEDS ORDERED: LIDOCAINE VISCOUS 2% SOLN 15 ML UDC ONE (19:16)
--- NOTE | 2018-03-03 20:35 | EDPHYS ---
Physician Documentation [facility] Name: Isadora Bettencourt Age: 72 yrs Sex: Female : 1945 Arrival Date: 03/03/2018 Time: 15:47 Bed 5 Private MD: Dmitry Powell ED Physician Anatoliy Cassidy HPI: 03/03 18:00 This 72 yrs old Female presents to ER via Ambulatory with complaints of pm1 Abdominal Pain. 18:00 The patient presents with abdominal pain in the upper abdomen. Onset: The pm1 symptoms/episode began/occurred 3 day(s) ago. The symptoms do not radiate. Associated signs and symptoms: Pertinent positives: nausea and vomiting, Pertinent negatives: chest pain, diarrhea, dysuria, fever, shortness of breath. 18:00 The symptoms are described as constant, sharp. Modifying factors: The symptoms are pm1 alleviated by nothing, the symptoms are aggravated by nothing. Severity of pain: in the emergency department the pain is unchanged. The patient has experienced similar episodes in the past, multiple times. The patient has been recently seen by a physician: ER yesterday. Went to Dr. Smith's office this AM. 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 - Social history:: Smoking status: unknown. - Ebola Screening: : Patient negative for fever greater than or equal to 101.5 degrees Fahrenheit, and additional compatible Ebola Virus Disease symptoms. ROS: 18:00 Constitutional: Negative for fever, chills, and weight loss, Eyes: Negative for injury, pm1 pain, redness, and discharge, ENT: Negative for injury, pain, and discharge, Neck: Negative for injury, pain, and swelling, Cardiovascular: Negative for chest pain, palpitations, and edema, Respiratory: Negative for shortness of breath, cough, wheezing, and pleuritic chest pain. 18:00 Back: Negative for injury and pain, : Negative for injury, bleeding, discharge, and swelling, MS/Extremity: Negative for injury and deformity, Skin: Negative for injury, rash, and discoloration, Neuro: Negative for headache, weakness, numbness, tingling, and seizure. 18:00 Abdomen/GI: Positive for abdominal pain, nausea and vomiting, of the right upper quadrant and left upper quadrant, Negative for diarrhea, constipation. Exam: 18:00 Constitutional: This is a well developed, well nourished patient who is awake, alert, pm1 and in no acute distress. Head/Face: Normocephalic, atraumatic. Eyes: Pupils equal round and reactive to light, extra-ocular motions intact. Lids and lashes normal. Conjunctiva and sclera are non-icteric and not injected. Cornea within normal limits. Periorbital areas with no swelling, redness, or edema. ENT: Nares patent. No nasal discharge, no septal abnormalities noted. Tympanic membranes are normal and external auditory canals are clear. Oropharynx with no redness, swelling, or masses, exudates, or evidence of obstruction, uvula midline. Mucous membranes moist. Neck: Trachea midline, no thyromegaly or masses palpated, and no cervical lymphadenopathy. Supple, full range of motion without nuchal rigidity, or vertebral point tenderness. No Meningismus. Chest/axilla: Normal chest wall appearance and motion. Nontender with no deformity. No lesions are appreciated. Cardiovascular: Regular rate and rhythm with a normal S1 and S2. No gallops, murmurs, or rubs. Normal PMI, no JVD. No pulse deficits. Respiratory: Lungs have equal breath sounds bilaterally, clear to auscultation and percussion. No rales, rhonchi or wheezes noted. No increased work of breathing, no retractions or nasal flaring. 18:00 Back: No spinal tenderness. No costovertebral tenderness. Full range of motion. Skin: Warm, dry with normal turgor. Normal color with no rashes, no lesions, and no evidence of cellulitis. MS/ Extremity: Pulses equal, no cyanosis. Neurovascular intact. Full, normal range of motion. 18:00 Abdomen/GI: Inspection: abdomen appears normal, Bowel sounds: normal, Palpation: abdomen is soft and non-tender, in all quadrants, mass, is not appreciated, rebound tenderness, is not appreciated. 18:00 Neuro: Orientation: is normal, Motor: is normal, no acute changes. Vital Signs: 16:19 BP 175 / 104; Pulse 73; Resp 18; Temp 97.4; Pulse Ox 100% on R/A; ph 16:45 BP 149 / 89; Pulse 115; Resp 16 S; Pulse Ox 99% on R/A; Pain 8/10; jl7 18:00 BP 143 / 89; Pulse 105; Resp 16 S; Pulse Ox 97% on R/A; jl7 20:26 BP 188 / 84; Pulse 64; Resp 17 S; Pulse Ox 95% on R/A; jd3 20:48 BP 173 / 71; Pulse 53; Resp 17 S; Pulse Ox 97% on R/A; jd3 MDM: 17:11 Patient medically screened. pm1 20:00 ED course: Patient denies urinary symptoms. Squamous epithelial contamination present. pm1 Will wait for urine culture results prior to antibiotic treatment. 20:00 ED course: Lipase decreased from yesterday. GI cocktail resolved pain. Patient with pm1 history of hiatal hernia. Likely symptoms due to reflux disease related to hiatal hernia. 20:33 Data reviewed: vital signs. Data interpreted: Pulse oximetry: on room air is 95 %. pm1 Interpretation: normal. Counseling: I had a detailed discussion with the patient and/or guardian regarding: the historical points, exam findings, and any diagnostic results supporting the discharge/admit diagnosis, lab results, the need for outpatient follow up, to return to the emergency department if symptoms worsen or persist or if there are any questions or concerns that arise at home. 03/03 17:12 Order name: Basic Metabolic Panel pm1 03/03 17:12 Order name: CBC with Diff pm1 03/03 17:12 Order name: Creatinine for Radiology pm1 03/03 17:12 Order name: Hepatic Function pm1 03/03 17:12 Order name: Lipase; Complete Time: 18:46 pm1 03/03 17:13 Order name: Basic Metabolic Panel; Complete Time: 18:46 EDMS 03/03 17:13 Order name: CBC with Automated Diff; Complete Time: 18:46 EDMS 03/03 17:13 Order name: Creatinine (Radiology Only); Complete Time: 18:46 EDMS 03/03 17:13 Order name: Liver (Hepatic) Function; Complete Time: 18:46 EDMS 03/03 17:27 Order name: Urine Dipstick--Ancillary (enter results); Complete Time: 18:06 03/03 17:29 Order name: Urine Culture [facility] 03/03 17:29 Order name: Urine Microscopic Only; Complete Time: 18:06 jb1 03/03 17:12 Order name: Labs collected and sent; Complete Time: 18:49 pm1 Administered Medications: 19:14 Drug: Zofran 4 mg Route: PO; jd3 20:49 Follow up: Response: No adverse reaction jd3 19:16 Drug: Tylenol #3 (300 mg-30 mg) 2 tabs Route: PO; jd3 20:49 Follow up: Response: No adverse reaction jd3 19:17 Drug: GI Cocktail without - (Maalox Suspension 30 ml, Lidocaine Liquid 2 % 15 jd3 ml) Route: PO; 20:49 Follow up: Response: No adverse reaction jd3 Disposition: 03/03/18 20:34 Discharged to Home. Impression: Other chronic pancreatitis. - Condition is Stable. - Discharge Instructions: Chronic Pancreatitis. - Prescriptions for Zofran 4 mg Oral Tablet - take 1 tablet by ORAL route every 12 hours As needed; 20 tablet. - Medication Reconciliation Form, Thank You Letter, Antibiotic Education, Prescription Opioid Use form. - Follow up: Emergency Department; When: As needed; Reason: Worsening of condition. Follow up: Solis Smith MD; When: 2 - 3 days; Reason: Recheck today's complaints, Continuance of care, Re-evaluation by your physician. - Problem is new. - Symptoms have improved. Addendum: 03/05/2018 17:24 Co-signature as Attending Physician, Anatoliy Cassidy MD. m a2 Signatures: Dispatcher [employer] [facility] Elizabeth Desai RN RN ph Marinas, Patrick, DESK MONITOR DESK MONITOR pm1 Darrin Rodriguez RN RN jl7 Deangelo Orozco RN RN jd3 Anatoliy Cassidy MD MD ma2 Corrections: (The following items were deleted from the chart) 03/03 20:50 17:12 IV Saline Lock ordered. pm1 jd3 20:58 20:34 03/03/2018 20:34 Discharged to Home. Impression: Other chronic pancreatitis. jd3 Condition is Stable. Forms are Medication Reconciliation Form, Thank You Letter, Antibiotic Education, Prescription Opioid Use. Follow up: Emergency Department; When: As needed; Reason: Worsening of condition. Follow up: Solis Smith; When: 2 - 3 days; Reason: Recheck today's complaints, Continuance of care, Re-evaluation by your physician. Problem is new. Symptoms have improved. pm1
--- NOTE | 2018-03-03 20:35 | ER ---
Nurse's Notes [facility] Name: Isadora Bettencourt Age: 72 yrs Sex: Female : 1945 Arrival Date: 03/03/2018 Time: 15:47 Bed 5 Private MD: Dmitry Powell Diagnosis: Other chronic pancreatitis Presentation: 03/03 16:17 Presenting complaint: Patient states: Stomach pain in mid abdomen, also reports N/V, ph states, " I was seen here a few days ago and they sent me home w/ medicine but it hasn't helped.". Transition of care: patient was not received from another setting of care. Onset of symptoms was March 03, 2018. Risk Assessment: Do you want to hurt yourself or someone else? Patient reports no desire to harm self or others. Initial Sepsis Screen: Does the patient meet any 2 criteria? No. Patient's initial sepsis screen is negative. Care prior to arrival: None. 16:17 Method Of Arrival: Ambulatory ph 16:17 Acuity: FRANDY 3 ph 19:18 Initial Sepsis Screen: Does the patient have a suspected source of infection? No. jd3 Patient's initial sepsis screen is negative. 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 - Social history:: Smoking status: unknown. - Ebola Screening: : Patient negative for fever greater than or equal to 101.5 degrees Fahrenheit, and additional compatible Ebola Virus Disease symptoms. Screenin:15 Abuse screen: Denies threats or abuse. Denies injuries from another. Nutritional jl7 screening: No deficits noted. Tuberculosis screening: No symptoms or risk factors identified. Fall Risk IV access (20 points). Total Mitchell Fall Scale indicates No Risk (0-24 pts). Assessment: 17:15 General: Appears in no apparent distress. uncomfortable, Behavior is calm, cooperative, jl7 appropriate for age. Pain: Complains of pain in left upper quadrant Pain does not radiate. Pain currently is 8 out of 10 on a pain scale. Quality of pain is described as ''It's just pain." Pain began 2-3 days ago. Is continuous, Aggravated by Eating and drinking. Neuro: Level of Consciousness is awake, alert, obeys commands, Oriented to person, place, time, situation. Cardiovascular: Patient's skin is warm and dry. Respiratory: Airway is patent Respiratory effort is even, unlabored, Respiratory pattern is regular, symmetrical. GI: Abdomen is round non-distended, Bowel sounds present X 4 quads. Abd is soft and non tender. : No signs and/or symptoms were reported regarding the genitourinary system. EENT: No signs and/or symptoms were reported regarding the EENT system. Derm: Skin is pink, warm \\T\\ dry. Musculoskeletal: No signs and/or symptoms reported regarding the musculoskeletal system. 18:15 Reassessment: Patient appears in no apparent distress at this time. No changes from jl7 previously documented assessment. Patient and/or family updated on plan of care and expected duration. Pain level reassessed. Patient is alert, oriented x 3, equal unlabored respirations, skin warm/dry/pink. 19:18 Reassessment: Patient appears in no apparent distress at this time. No changes from jd3 previously documented assessment. Patient and/or family updated on plan of care and expected duration. Pain level reassessed. Patient is alert, oriented x 3, equal unlabored respirations, skin warm/dry/pink. 19:58 Reassessment: Patient appears in no apparent distress at this time. Patient and/or jd3 family updated on plan of care and expected duration. Pain level reassessed. Patient is alert, oriented x 3, equal unlabored respirations, skin warm/dry/pink. reports small amount of relief from medication. no vomiting. 20:26 Reassessment: Patient appears in no apparent distress at this time. No changes from jd3 previously documented assessment. Patient and/or family updated on plan of care and expected duration. Pain level reassessed. Patient is alert, oriented x 3, equal unlabored respirations, skin warm/dry/pink. 20:48 Reassessment: Patient appears in no apparent distress at this time. Patient and/or jd3 family updated on plan of care and expected duration. Pain level reassessed. Patient is alert, oriented x 3, equal unlabored respirations, skin warm/dry/pink. Vital Signs: 16:19 BP 175 / 104; Pulse 73; Resp 18; Temp 97.4; Pulse Ox 100% on R/A; ph 16:45 BP 149 / 89; Pulse 115; Resp 16 S; Pulse Ox 99% on R/A; Pain 8/10; jl7 18:00 BP 143 / 89; Pulse 105; Resp 16 S; Pulse Ox 97% on R/A; jl7 20:26 BP 188 / 84; Pulse 64; Resp 17 S; Pulse Ox 95% on R/A; jd3 20:48 BP 173 / 71; Pulse 53; Resp 17 S; Pulse Ox 97% on R/A; jd3 ED Course: 15:47 Patient arrived in ED. mr 15:47 Dmitry Powell DO is Private Physician. mr 16:19 Triage completed. ph 16:20 Arm band placed on. ph 17:11 Virgilio Francis NP is PHCP. pm1 17:11 Anatoliy Cassidy MD is Attending Physician. pm1 17:14 Darrin Rodriguez, SHARMAINE is Primary Nurse. jl7 17:15 Patient has correct armband on for positive identification. Placed in gown. Bed in low jl7 position. Call light in reach. Side rails up X 1. case monitor on. Pulse ox on. NIBP on. Warm blanket given. 17:15 Missed attempt(s): 24 gauge in right forearm. Bleeding controlled, band aid applied, jl7 catheter tip intact. 17:35 Urine collected: clean catch specimen, cloudy, [place] colored. jb1 19:27 Primary Nurse role handed off by Darrin Rodriguez, SHARMAINE jl7 19:57 Deangelo Orozco, SHARMAINE is Primary Nurse. jd3 20:34 Solis Smith MD is Referral Physician. pm1 20:48 No provider procedures requiring assistance completed. Patient did not have IV access jd3 during this emergency room visit. Administered Medications: 19:14 Drug: Zofran 4 mg Route: PO; jd3 20:49 Follow up: Response: No adverse reaction jd3 19:16 Drug: Tylenol #3 (300 mg-30 mg) 2 tabs Route: PO; jd3 20:49 Follow up: Response: No adverse reaction jd3 19:17 Drug: GI Cocktail without - (Maalox Suspension 30 ml, Lidocaine Liquid 2 % 15 jd3 ml) Route: PO; 20:49 Follow up: Response: No adverse reaction jd3 Outcome: 20:34 Discharge ordered by . pm1 20:56 Discharged to home ambulatory, with friend. jd3 20:56 Condition: stable 20:56 Discharge instructions given to patient, friend, Instructed on discharge instructions, follow up and referral plans. medication usage, Demonstrated understanding of instructions, follow-up care, medications, Prescriptions given X 1. 20:58 Patient left the ED. jd3 Signatures: [place] jb1 Ratna Castellon mr Elizabeth Desai RN RN ph Virgilio Francis, LIFE UNDERWRITER LIFE UNDERWRITER pm1 Darrin Rodriguez RN RN jl7 Deangelo Orozco RN RN jd3 Corrections: (The following items were deleted from the chart) 19:58 19:18 Reassessment: Patient appears in no apparent distress at this time. No changes jd3 from previously documented assessment. Patient and/or family updated on plan of care and expected duration. Pain level reassessed. Patient is alert, oriented x 3, equal unlabored respirations, skin warm/dry/pink. jd3
[2018-03-03 22:32] VITALS: TEMP 97.4
[2018-03-03 22:37] VITALS: BP 173/71; O2SAT 97
== END 2018-03-03 20:58 | disposition home or self-care (01) ==
LOC: ER 15:45
DX: K86.1 Other chronic pancreatitis (principal)
CPT/HCPCS: 36415; 80048; 80076; 81003; 81015; 83690; 85025; 87086; 87088; 99284

== ENCOUNTER 2018-07-20 07:08 | Observation (INO) | payer OTHER ==
--- OUTSIDE RECORDS SUMMARY | 2018-07-20 07:11 | XMS REPORT ---
[...] Medications Results No Known Results Summary Purpose [employer] Submission
--- OUTSIDE RECORDS SUMMARY | 2018-07-20 07:11 | XMS REPORT ---
[...] End Status Dosage System Date Date Citalopram [facility] 78504306662 40 MG Orally Active 0.5 tablet Hydrobromide Once a day Simvastatin ND 20829162989 20 MG Orally Active 1 tablet in Once a day the evening Clotrimazole [facility] 49709266681 1 % Externally Active 1 application Twice a day to affected area Nystatin [facility] 40304888421 015928 UNIT/GM Active 1 application Externally to affected Twice a day area Protonix [facility] 30105109541 40 MG Orally Active 1 tablet Twice a day Creon [facility] 12867060001 83140-91961 Active 1 cap UNIT Orally three times a day Trazodone HCl ND 62284649668 100 MG Orally August 27, Active 1Take 1/2 tab Once a day 2018 QHS x 1 week then 1 tab QHS Neurontin [facility] 06453042573 300 MG Orally Active 1 capsule Three times a before day bedtime Estrace [facility] 36287298079 0.1 MG/GM September 09, Active as directed Vaginal twice 2018 weekly Culturelle [facility] 53850779920 - Orally Active not defined Zestoretic [facility] 74276837694 10-12.5 MG Active 1 tablet Orally Once a day Results No Known Results Summary Purpose [employer] Submission
--- OUTSIDE RECORDS SUMMARY | 2018-07-20 07:11 | XMS REPORT ---
[...] Medications Results No Known Results Summary Purpose [employer] Submission
--- OUTSIDE RECORDS SUMMARY | 2018-07-20 07:11 | XMS REPORT ---
[...] Unit Abnormality Flag URINALYSIS AUTO W/O SCOPE (04394) ----MARY 1+ [id number] ----NIT neg [id number] ----PROTEIN neg [id number] ----pH 5.0 20170930 ----BLO trace 20170930 ----GLUCOSE neg [id number] ----BILIRUBIN neg 20170930 ----KETONES neg [id number] ----SPECIFIC GRAVITY >=1.030 20170930 Summary Purpose [employer]Works Submission
--- OUTSIDE RECORDS SUMMARY | 2018-07-20 07:11 | XMS REPORT ---
[...] End Status Dosage System Date Date Culturelle [facility] 79829541623 - Orally Active not defined Nystatin [facility] 88839027651 950511 UNIT/GM Active 1 application Externally to affected Twice a day area Simvastatin [facility] 10212564726 20 MG Orally Active 1 tablet in Once a day the evening Clotrimazole [facility] 41030813858 1 % Externally Active 1 application Twice a day to affected area Trazodone HCl [facility] 66550704598 100 MG Orally Active 1 tablet at Once a day bedtime Zestoretic [facility] 27864279797 10-12.5 MG Active 1 tablet Orally Twice a day Protonix [facility] 81848123326 40 MG Orally Active 1 tablet Twice a day Estrace [facility] 10466188424 0.1 MG/GM Active as directed Vaginal twice weekly Neurontin [facility] 46041205473 300 MG Orally Active 1 capsule Three times a before day bedtime Citalopram [facility] 80860795887 40 MG Orally Active 1 tablet Hydrobromide Once a day Creon [facility] 69954719991 70247-47767 Active 1 cap UNIT Orally three times a day Results No Known Results Summary Purpose [employer] Submission
--- OUTSIDE RECORDS SUMMARY | 2018-07-20 07:12 | XMS REPORT ---
:1945 Author Organization [employer] Care Team Providers Name Role Phone Andre Dmitry Provider Role Unavailable Allergies, Adverse Reactions, Alerts Substance Reaction Event Type N.K.D.A. Info Not Available Non Drug Allergy Problems Problem Type Condition Code Onset Dates Condition Status Assessment Non compliance w medication regimen Z91.14 Active Problem Mixed stress and urge urinary N39.46 Active incontinence Assessment Nonalcoholic fatty liver disease K76.0 Active Problem Ulcer of esophagus without bleeding K22.10 Active Assessment Chronic GERD K21.9 Active Problem Esophageal stenosis K22.2 Active Problem Benign essential hypertension I10 Active Problem Hyperlipidemia, mixed E78.2 Active Problem Chronic GERD K21.9 Active Problem Vitamin D deficiency E55.9 Active Assessment Mixed stress and urge urinary N39.46 Active incontinence Assessment Chronic pancreatitis K86.1 Active Problem Insomnia, unspecified type G47.00 Active Assessment Hyperlipidemia, mixed E78.2 Active Problem Depression with anxiety F41.8 Active Problem Kidney stone N20.0 Active Problem Chronic pancreatitis K86.1 Active Problem Hiatal hernia K44.9 Active Assessment Benign essential hypertension I10 Active Assessment Generalized abdominal pain R10.84 Active Assessment Insomnia, unspecified type G47.00 Active Assessment Depression with anxiety F41.8 Active Problem Chronic gastritis without bleeding, K29.50 Active unspecified gastritis type Problem Duodenitis K29.80 Active Problem Nonalcoholic fatty liver disease K76.0 Active Medications Medication Code Code Instructions Start End Status Dosage System Date Date Zestoretic [facility] 28563905959 20-25 MG Mar 09, Active 1 tablet Orally Once a 2018 day Estrace [facility] 59490832460 0.1 MG/GM Active as directed Vaginal twice weekly Trazodone HCl [facility] 43124130201 100 MG Orally Active 1 tablet at Once a day bedtime Citalopram [facility] 23582593149 40 MG Orally Active 1 tablet Hydrobromide Once a day Zestoretic [facility] 89971428070 10-12.5 MG Inactive 1 tablet Orally Twice a day Nystatin [facility] 32296892062 518311 UNIT/GM Active 1 application Externally to affected Twice a day area Clotrimazole [facility] 13777633400 1 % Externally Active 1 application Twice a day to affected area Protonix [facility] 22094147453 40 MG Orally Active 1 tablet Twice a day Simvastatin [facility] 29957127946 20 MG Orally Active 1 tablet in Once a day the evening Neurontin [facility] 09716223717 300 MG Orally Inactive 1 capsule Three times a before day bedtime Culturelle [facility] 28312186449 - Orally Active not defined Creon [facility] 27073448447 67598-50819 Active 1 cap UNIT Orally three times a day Results No Known Results Summary Purpose [employer]ClinicalWorks Submission
--- OUTSIDE RECORDS SUMMARY | 2018-07-20 07:12 | XMS REPORT ---
:1945 Author Organization eClinicalWorks Care Team Providers Name Role Phone Powell Dmitry Provider Role Unavailable Allergies, Adverse Reactions, [...] unspecified gastritis type Problem Duodenitis K29.80 Active Assessment Non compliance w medication regimen Z91.14 Active Problem Mixed stress and urge urinary N39.46 Active incontinence Assessment Nonalcoholic fatty liver disease K76.0 Active Problem Nonalcoholic fatty liver disease K76.0 Active Problem Ulcer of esophagus without bleeding K22.10 Active Medications Medication Code Code Instructions Start End Status Dosage System Date Date ProAir HFA [facility] 50350071009 108 (90 Base) Apr 25, Active 2 puffs as MCG/ACT 2019 needed Inhalation every 6 hrs PRN COugh, Wheezing or shortness of breath Culturelle [facility] 17870157396 - Orally Active not defined Creon [facility] 85690151021 52462-21544 Active 1 cap UNIT Orally three times a day Citalopram [facility] 99746154514 40 MG Orally Active 1 tablet Hydrobromide Once a day Clotrimazole [facility] 50530631777 1 % Externally Active 1 application Twice a day to affected area Neurontin [facility] 00775927955 300 MG Orally Active 1 capsule Twice a day before bedtime Simvastatin [facility] 16112154309 20 MG Orally Active 1 tablet in Once a day the evening Clonidine HCl [facility] 93245839976 0.1 MG Orally Active 1 tablet at Once a day bedtime Metoprolol [facility] 21653151697 50 MG Orally Active 1 tablet with Tartrate Twice a day food Trazodone HCl [facility] 18136737788 100 MG Orally Active 1 tablet at Once a day bedtime Protonix [facility] 74808980996 40 MG Orally Active 1 tablet Twice a day Estrace [facility] 22024066879 0.1 MG/GM Active as directed Vaginal twice weekly Nystatin [facility] 66512946445 136476 UNIT/GM Active 1 application Externally to affected Twice a day area Zestoretic [facility] 83589177348 20-25 MG Orally Active 1 tablet Once a day Results No Known Results Summary Purpose [employer]ClinicalWorks Submission
--- OUTSIDE RECORDS SUMMARY | 2018-07-20 07:12 | XMS REPORT ---
[...] Medications Results No Known Results Summary Purpose [employer] Submission
--- OUTSIDE RECORDS SUMMARY | 2018-07-20 07:12 | XMS REPORT ---
[...] Active Problem Hiatal hernia K44.9 Active Assessment Acute non-recurrent maxillary J01.00 Active sinusitis Assessment Upper respiratory tract infection, J06.9 Active unspecified type Assessment Cough R05 Active Assessment Allergic rhinitis, unspecified J30.9 Active seasonality, unspecified trigger Problem Chronic gastritis without bleeding, K29.50 Active unspecified gastritis type Problem Duodenitis K29.80 Active Problem Mixed stress and urge urinary N39.46 Active incontinence Problem Nonalcoholic fatty liver disease K76.0 Active Problem Ulcer of esophagus without bleeding K22.10 Active Medications Medication Code Code Instructions Start End Status Dosage System Date Date Simvastatin ND 21037479644 20 MG Orally Active 1 tablet in Once a day the evening Clotrimazole [facility] 26720636733 1 % Externally Active 1 application Twice a day to affected area Culturelle [facility] 04685938962 - Orally Active not defined Creon ND 09157125189 11704-28564 Active 1 cap UNIT Orally three times a day Citalopram [facility] 28589485928 40 MG Orally Active 1 tablet Hydrobromide Once a day Zestoretic ND 15454521127 20-25 MG Orally Mar 09, Active 1 tablet Once a day 2018 Protonix ND 38792118188 40 MG Orally Active 1 tablet Twice a day Azithromycin ND 26540329711 250 MG Orally Apr 25, Apr Active 2 tablets on Once a day 2018, the first 2019 day, then 1 tablet daily for 4 days ProAir HFA [facility] 39227073921 108 (90 Base) Apr 25, Active 2 puffs as MCG/ACT 2018 needed Inhalation every 6 hrs PRN COugh, Wheezing or shortness of breath Estrace [facility] 79158784257 0.1 MG/GM Active as directed Vaginal twice weekly Trazodone HCl [facility] 89547576440 100 MG Orally Active 1 tablet at Once a day bedtime Nystatin [facility] 88704472185 128270 UNIT/GM Active 1 application Externally to affected Twice a day area Results Name Result Date Reference Range Unit Abnormality Flag FLU TEST ----A NEG [id number] ----B NEG [id number] STREP A RAPID ----Result NEG [id number] Summary Purpose [employer]ClinicalWorks Submission
--- OUTSIDE RECORDS SUMMARY | 2018-07-20 07:12 | XMS REPORT ---
[...] Medications Results No Known Results Summary Purpose [employer] Submission
[2018-07-20] MEDS ORDERED: ONDANSETRON 4 MG/2 ML VIAL ONE (07:40)
[2018-07-20] MEDS ORDERED: NITROGLYCERIN 0.4 MG/TAB SL ONE (07:40)
--- NOTE | 2018-07-20 07:48 | EKG ---
Test Date: 2018-07-20 Test Time: 07:17:30 Paste Mixer: GURINDER MEASUREMENT RESULTS: Intervals: Rate: 69 CA: 152 QRSD: 136 QT: 450 QTc: 482 [place]: P: 42 CA: 152 QRS: -42 T: 137 INTERPRETIVE STATEMENTS: Normal sinus rhythm Left axis deviation Left bundle branch block Abnormal ECG Compared to ECG 03/15/2017 16:59:36 Atrial premature complex(es) no longer present Electronically Signed On 07-20-18 07:48:28 CDT by Rishi Mclean
[2018-07-20 08:16] LABS: ALT/SGPT 17 U/L (12-78); AST/SGOT 14 U/L (15-37); Albumin 3.3 g/dL (3.4-5.0); Alkaline Phosphatase 92 U/L (45-117); BUN Blood Urea Nitrogen 17 mg/dL (7-18); Bicarbonate 25 mmol/L (21-32); Bilirubin Direct 0.1 mg/dL (0-0.2); Bilirubin Total 0.5 mg/dL (0.2-1.0); Glucose Level 195 mg/dL (74-106); Lipase 569 U/L (73-393); NT PRO-BNP 175 pg/mL (<125); Potassium 4.2 mmol/L (3.5-5.1); Protein, Total 7.7 g/dL (6.4-8.2); Sodium Level 142 mmol/L (136-145); Troponin (Emerg Dept Use Only) < 0.02 ng/mL (0.0-0.045)
--- NOTE | 2018-07-20 08:58 | RAD REPORT ---
EXAM DESCRIPTION: RAD - Chest Single View - 07/20/2018 8:31 am CLINICAL HISTORY: CHEST PAIN Chest pain. COMPARISON: Chest Single View dated 08/31/2017; Chest Single View dated 03/15/2017; Chest Single View d ated 11/15/2016; Chest Single View dated 04/29/2016 FINDINGS: Portable technique limits examination quality. The lungs are grossly clear. The heart is normal in size. No displaced fractures. IMPRESSION: No acute intrathoracic process suspected.
[2018-07-20 09:06] LABS: Absolute Lymphocytes (CBC) 1.6 K/uL (0.7-4.9); Absolute Monocytes 0.7 K/uL (0.1-1.3); Basophils % 0.8 % (0-1.3); Eosinophils % 3.6 % (0-4.4); Hematocrit 35.7 % (36.0-45.0); Lymphocytes % 20.6 % (15.3-44.8); MPV 8.2 fL (7.6-11.3); Monocytes % 9.1 % (3.3-12.3)
--- NOTE | 2018-07-20 09:38 | RAD REPORT ---
EXAM DESCRIPTION: CT - Angio Aorta For Dissection - 07/20/2018 9:21 am CLINICAL HISTORY: Chest pain radiating to the back. CHEST PAIN COMPARISON: Chest Single View dated 03/15/2017; Abdomen Pelvis W Contrast dated 03/15/2017; Abdomen Pelvis W Contrast dated 08/13/2016 TECHNIQUE: CT angiography of the aorta was performed with MIPs. All CT scans are performed using dose optimization technique as appropriate and may include automated exposure control or mA/KV adjustment according to patient size. FINDINGS: A left aortic arch is present with normal branching pattern of the great vessels.No acute aortic finding is seen such as aneurysm, penetrating ulcer or dissection. The celiac axis, SMA, ANA ROSA and renal arteries are widely patent. No evidence of pulmonary embolism. The lungs are clear. Moderate axial hiatal hernia. The gallbladder is surgically absent. Mild pneumobilia is present.The spleen is unremarkable for catherine y arterial phase imaging. Hypodense mass again noted in the pancreatic tail measuring 25 x 24 mm, sta ble since 03/15/2017 study.Mild mesenteric edema is unchanged. 15 mm oblong stone in the inferior calyx left kidney is unchanged. No right-sided stone or hydronephr osis seen. No significant hydronephrosis. No bowel obstruction, free fluid or abscess.Prominent sigmoid diverticulosis coli without diverticuli tis.No pathologic enlarged lymphadenopathy identified. Advanced lumbar degenerative changes are present. IMPRESSION: No acute aortic finding is demonstrated. Nonspecific 25 x 24 mm mass in the pancreatic tail is stable since 2018 comparative study. Continued surveillance imaging with follow-up imaging of the pancreas in 6-12 months is advised. 15 mm inferior left renal calculus without hydronephrosis.
[2018-07-20 09:43] LABS: Urine Blood NEGATIVE (NEG); Urine Glucose NEGATIVE (NEG); Urine Protein NEGATIVE (NEG); Urine Specific Gravity 1.025 (1.005-1.030); Urine pH 5.5 (5.0-7.0)
--- NOTE | 2018-07-20 09:58 | ER ---
Nurse's Notes [facility] Name: Isadora Bettencourt Age: 72 yrs Sex: Female : 1945 Arrival Date: 07/20/2018 Time: 07:10 Bed 14 Private MD: Dmitry Powell Diagnosis: Chest pain, unspecified;Other chronic pancreatitis Presentation: 07/20 07:23 Presenting complaint: Patient states: LUQ pain radiating to left chest wall since last iw night, worse over past few hours, 8/10, squeezing pain. Transition of care: patient was not received from another setting of care. Onset of symptoms was July 20, 2018. Risk Assessment: Do you want to hurt yourself or someone else? Patient reports no desire to harm self or others. Initial Sepsis Screen: Does the patient meet any 2 criteria? No. Patient's initial sepsis screen is negative. Does the patient have a suspected source of infection? No. Patient's initial sepsis screen is negative. Care prior to arrival: None. 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 - Social history:: Smoking status: Patient/guardian denies using tobacco. - Family history:: not pertinent. - Ebola Screening: : Patient negative for fever greater than or equal to 101.5 degrees Fahrenheit, and additional compatible Ebola Virus Disease symptoms Patient denies exposure to infectious person Patient denies travel to an Ebola-affected area in the 21 days before illness onset No symptoms or risks identified at this time. - Hospitalizations: : No recent hospitalization is reported. Screenin:30 Abuse screen: Denies threats or abuse. Nutritional screening: No deficits noted. aa5 Tuberculosis screening: No symptoms or risk factors identified. Fall Risk IV access (20 points). Total Mitchell Fall Scale indicates No Risk (0-24 pts). Assessment: 07:22 General: Appears comfortable, Behavior is calm, cooperative. Pain: Complains of pain in aa5 anterior aspect, left upper chest and left breast, and LUQ Pain does not radiate. Pain currently is 8 out of 10 on a pain scale. Quality of pain is described as squeezing, Pain began Pt states "during the night" Is continuous, Alleviated by nothing. Aggravated by none. Neuro: Level of Consciousness is awake, alert, obeys commands, Oriented to person, place, time, situation. Cardiovascular: Heart tones S1 S2 present Rhythm is regular. Respiratory: Airway is patent Respiratory effort is even, unlabored, Respiratory pattern is regular, symmetrical, Breath sounds are clear bilaterally. Denies cough, shortness of breath. GI: Abdomen is round Bowel sounds present X 4 quads. Abd is soft and non tender X 4 quads. Reports nausea, Patient currently denies vomiting. : No signs and/or symptoms were reported regarding the genitourinary system. EENT: No signs and/or symptoms were reported regarding the EENT system. Derm: Skin is pink, warm \\T\\ dry. Musculoskeletal: Range of motion: intact in all extremities. 07:51 Reassessment: Patient is alert, oriented x 3, equal unlabored respirations, skin aa5 warm/dry/pink. Pt states "the nitro helped for like a minute but the pain is back up". Pt rates pain a 8/10 on a pain scale, MD was notified. . 09:10 Reassessment: Patient is alert, oriented x 3, equal unlabored respirations, skin aa5 warm/dry/pink. Pt to CT . 10:05 Reassessment: Patient is alert, oriented x 3, equal unlabored respirations, skin aa5 warm/dry/pink. Patient states symptoms have not improved. Awaiting room assignment, pt notified of wait time . 11:50 Reassessment: Patient is alert, oriented x 3, equal unlabored respirations, skin aa5 warm/dry/pink. Pt reports urinary incontinence, pt assisted with cleaning and provided clean gown and brief. . 12:15 Reassessment: Patient is alert, oriented x 3, equal unlabored respirations, skin aa5 warm/dry/pink. Vital Signs: 07:24 BP 181 / 84; Pulse 66; Resp 16; Temp 98.3(O); Pulse Ox 97% on R/A; Weight 81.65 kg; iw Height 5 ft. 1 in. (154.94 cm); Pain 8/10; 07:32 BP 181 / 85; Pulse 64; Resp 16 S; Pulse Ox 97% on R/A; Pain 8/10; aa5 07:48 BP 136 / 70; Pulse 56; Resp 18 S; Pulse Ox 92% on R/A; Pain 8/10; aa5 07:49 Pulse Ox 96% on 2 lpm NC; aa5 08:01 BP 137 / 72; Pulse 54; Resp 20 S; Pulse Ox 97% on 2 lpm NC; aa5 09:00 BP 137 / 74; Pulse 52; Resp 18 S; Pulse Ox 98% on 2 lpm NC; aa5 10:04 BP 136 / 69; Pulse 49; Resp 20 S; Pulse Ox 100% on 2 lpm NC; Pain 8/10; aa5 11:50 BP 135 / 70; Pulse 60; Resp 18 S; Temp 98.0(O); Pulse Ox 98% on R/A; aa5 07:24 Body Mass Index 34.01 (81.65 kg, 154.94 cm) iw ED Course: 07:10 Patient arrived in ED. mr 07:10 Dmitry Powell DO is Private Physician. mr 07:12 Jose Prater MD is Attending Physician. rn 07:14 Noemi Bonner, SHARMAINE is Primary Nurse. aa5 07:21 EKG done, by ED staff, reviewed by Jose Prater MD. em1 07:22 accounts payable administrator on. Pulse ox on. NIBP on. aa5 07:22 Patient has correct armband on for positive identification. Placed in gown. Bed in low aa5 position. Call light in reach. Side rails up X2. 07:22 Arm band placed on. aa5 07:24 Triage completed. iw 07:30 Initial lab(s) drawn, by me, sent to lab. Inserted saline lock: 20 gauge in right aa5 forearm, using aseptic technique. Blood collected. 07:43 No provider procedures requiring assistance completed. Patient maintains SpO2 aa5 saturation greater than 95% on room air. 08:32 XRAY Chest (1 view) In Process Unspecified. EDMS 09:22 CT Aorta for Dissection In Process Unspecified. EDMS 09:57 Willy Santacruz DO is Hospitalizing Provider. rn 12:15 Patient admitted, IV remains in place. aa5 Administered Medications: 07:31 Drug: Zofran 4 mg Route: IVP; Site: right forearm; aa5 07:48 Follow up: Response: No adverse reaction aa5 07:34 Drug: Nitroglycerin 0.4 mg Route: Sublingual; aa5 07:48 Follow up: Response: No adverse reaction aa5 Outcome: 09:58 Decision to Hospitalize by Provider. rn 12:15 Admitted to Tele accompanied by tech, via wheelchair, with chart, Report called to aa5 SHARMAINE Churchill 12:15 Condition: stable 12:15 Instructed on the need for admit, Demonstrated understanding of instructions. 12:24 Patient left the ED. aa5 Signatures: Dispatcher [employer] EDME RavinderRatna Irene, RN RN iw Jose Prater MD MD rn Martinez, Eric 1 Noemi Bonner RN RN aa5 Corrections: (The following items were deleted from the chart) 07:43 07:28 Arm band placed on iw aa5
--- NOTE | 2018-07-20 09:58 | EDPHYS ---
Physician Documentation [facility] Name: Isadora Bettencourt Age: 72 yrs Sex: Female : 1945 Arrival Date: 07/20/2018 Time: 07:10 Bed 14 Private MD: Dmitry Powell ED Physician Jose rPater HPI: 07/20 07:22 This 72 yrs old Female presents to ER via Unassigned with complaints of Chest rn Pain. 07:22 The patient or guardian reports chest pain that is located primarily in the anterior rn chest wall, left. Onset: last night. The pain radiates to abdomen. Associated signs and symptoms: Pertinent positives: abdominal pain, Pertinent negatives: cough, diaphoresis, dizziness, lower extremity swelling, near syncope, palpitations, recent travel, shortness of breath, syncope, vomiting. The chest pain is described as aching, squeezing. Duration: The patient or guardian reports a single episode, The patient or guardian reports multiple episodes, that wax and wane. Modifying factors: The symptoms are alleviated by nothing. the symptoms are aggravated by nothing. Severity of pain: At its worst the pain was moderate in the emergency department the pain is unchanged. The patient has not experienced similar symptoms in the past. REports last night began with left sided chest pain, radiates to LUQ abdomen, not assoc with fever/cough/sob, feels different than her chronic pancreatitis, nothing makes it better or worse, reports had heart cath 1 year ago and told "was a million bucks". No previous [place]. No leg swelling or hx of dvt. Worse with touching chest. . 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 - Social history:: Smoking status: Patient/guardian denies using tobacco. - Family history:: not pertinent. - Ebola Screening: : Patient negative for fever greater than or equal to 101.5 degrees Fahrenheit, and additional compatible Ebola Virus Disease symptoms Patient denies exposure to infectious person Patient denies travel to an Ebola-affected area in the 21 days before illness onset No symptoms or risks identified at this time. - Hospitalizations: : No recent hospitalization is reported. ROS: 07:22 Constitutional: Negative for fever, chills, and weight loss, Eyes: Negative for injury, rn pain, redness, and discharge, Neck: Negative for injury, pain, and swelling, Cardiovascular: Negative for palpitations, and edema, Respiratory: Negative for shortness of breath, cough, wheezing Abdomen/GI: Negative for nausea, vomiting, diarrhea, and constipation, MS/Extremity: Negative for injury and deformity, Skin: Negative for injury, rash, and discoloration, Neuro: Negative for headache, weakness, numbness, tingling, and seizure. Exam: 07:22 Constitutional: This is a well developed, well nourished patient who is awake, alert, rn and in no acute distress. Head/Face: Normocephalic, atraumatic. Eyes: Pupils equal round and reactive to light, extra-ocular motions intact. Lids and lashes normal. Conjunctiva and sclera are non-icteric and not injected. Cornea within normal limits. Periorbital areas with no swelling, redness, or edema. Cardiovascular: Regular rate and rhythm. No pulse deficits. Respiratory: Lungs have equal breath sounds bilaterally, clear to auscultation. No increased work of breathing, no retractions or nasal flaring. Abdomen/GI: soft, non-tender Skin: Warm, dry. No evidence of cellulitis. MS/ Extremity: Pulses equal, no cyanosis. Neurovascular intact. Full, normal range of motion. Equal circumference. Neuro: Awake and alert, GCS 15, oriented to person, place, time, and situation. Motor strength 5/5 in all extremities. Sensory grossly intact. 07:33 ECG was reviewed by the Attending Physician. rn Vital Signs: 07:24 BP 181 / 84; Pulse 66; Resp 16; Temp 98.3(O); Pulse Ox 97% on R/A; Weight 81.65 kg; iw Height 5 ft. 1 in. (154.94 cm); Pain 8/10; 07:32 BP 181 / 85; Pulse 64; Resp 16 S; Pulse Ox 97% on R/A; Pain 8/10; aa5 07:48 BP 136 / 70; Pulse 56; Resp 18 S; Pulse Ox 92% on R/A; Pain 8/10; aa5 07:49 Pulse Ox 96% on 2 lpm NC; aa5 08:01 BP 137 / 72; Pulse 54; Resp 20 S; Pulse Ox 97% on 2 lpm NC; aa5 09:00 BP 137 / 74; Pulse 52; Resp 18 S; Pulse Ox 98% on 2 lpm NC; aa5 10:04 BP 136 / 69; Pulse 49; Resp 20 S; Pulse Ox 100% on 2 lpm NC; Pain 8/10; aa5 11:50 BP 135 / 70; Pulse 60; Resp 18 S; Temp 98.0(O); Pulse Ox 98% on R/A; aa5 07:24 Body Mass Index 34.01 (81.65 kg, 154.94 cm) iw MDM: 07:13 Patient medically screened. rn 09:56 Differential diagnosis: acute myocardial infarction, acute pericarditis, anxiety, rn coronary artery disease chest wall pain, esophagitis, gastroesophageal reflux disease (GERD), pancreatitis, pneumonia, pneumothorax, stable angina, unstable angina. Data reviewed: vital signs, nurses notes, lab test result(s), EKG, radiologic studies, CT scan, plain films, and as a result, I will admit patient. Counseling: I had a detailed discussion with the patient and/or guardian regarding: the historical points, exam findings, and any diagnostic results supporting the discharge/admit diagnosis, lab results, radiology results, the need for further work-up and treatment in the hospital. Admission orders: after a detailed discussion of the patient's condition and case, the admit orders are written by me. ED course: Pt very scared about going home given never had chest pain like this, + mild elevation in lipase, + chronic pancreatitis, will admit for cardiac rule out.. 07/20 07:21 Order name: Basic Metabolic Panel rn 07/20 07:21 Order name: CBC with Diff; Complete Time: 09:40 rn 07/20 09:58 Interpretation: Normal except: HGB 11.5; HCT 35.7. rn 07/20 07:21 Order name: LFT's; Complete Time: 08:53 rn 07/20 09:58 Interpretation: Within normal limits. 07/20 07:21 Order name: NT PRO-BNP; Complete Time: 08:53 rn 07/20 09:58 Interpretation: Abnormal. 07/20 07:21 Order name: Troponin (emerg Dept Use Only); Complete Time: 08:53 rn 07/20 07:21 Order name: Lipase; Complete Time: 08:53 rn 07/20 09:58 Interpretation: Abnormal. 07/20 07:21 Order name: XRAY Chest (1 view); Complete Time: 09:40 rn 07/20 07:21 Order name: EKG; Complete Time: 07:23 rn 07/20 07:21 Order name: Cardiac monitoring; Complete Time: 07:25 rn 07/20 07:22 Order name: Basic Metabolic Panel; Complete Time: 08:53 EDMS 07/20 09:59 Interpretation: Normal except: GLUC 195. rn 07/20 09:02 Order name: CT Aorta for Dissection; Complete Time: 09:40 rn 07/20 09:27 Order name: Urine Dipstick--Ancillary (enter results); Complete Time: 09:58 bd 07/20 09:58 Interpretation: Within normal limits. 07/20 07:21 Order name: EKG - Nurse/Tech; Complete Time: 07:25 rn 07/20 07:21 Order name: IV Saline Lock; Complete Time: 07:41 rn 07/20 07:21 Order name: Labs collected and sent; Complete Time: 07:41 rn 07/20 07:21 Order name: O2 Per Protocol; Complete Time: 07:41 rn 07/20 07:21 Order name: O2 Sat Monitoring; Complete Time: 07:41 07/20 08:18 Order name: Labs - recollect needed; Complete Time: 08:44 bd EC:33 Rate is 69 beats/min. Rhythm is regular. Left axis deviation noted. QRS is positive in rn lead I and negative in lead aVF. IA interval is normal. QRS interval is prolonged at 136 msec. QT interval is normal. No Q waves. T waves are Normal. No ST changes noted. Clinical impression: NSR w/ Non-specific ST/T Changes. Interpreted by me. Reviewed by me. Administered Medications: 07:31 Drug: Zofran 4 mg Route: IVP; Site: right forearm; aa5 07:48 Follow up: Response: No adverse reaction aa5 07:34 Drug: Nitroglycerin 0.4 mg Route: Sublingual; aa5 07:48 Follow up: Response: No adverse reaction aa5 Disposition: 07/20/18 09:58 Hospitalization ordered by Willy Santacruz for Observation. Preliminary diagnosis are Chest pain, unspecified, Other chronic pancreatitis. - Bed requested for Telemetry/MedSurg (observation). - Status is Observation. aa5 - Condition is Stable. - Problem is new. - Symptoms have improved. UTI on Admission? No Signatures: Dispatcher [employer] EDMS Jayda Lala Irene, RN RN iw Jose Prater MD MD rn Calderon, Audri, RN RN aa5 Corrections: (The following items were deleted from the chart) 12:00 09:58 Hospitalization Ordered by Willy Santacruz DO for Observation. Preliminary aa5 diagnosis is Chest pain, unspecified; Other chronic pancreatitis. Bed requested for Telemetry/MedSurg (observation). Status is Observation. Condition is Stable. Problem is new. Symptoms have improved. UTI on Admission? No. rn 12:04 12:00 07/20/2018 09:58 Hospitalization Ordered by Willy Santacruz DO for Observation. bd Preliminary diagnosis is Chest pain, unspecified; Other chronic pancreatitis. Bed requested for Telemetry/MedSurg (observation). Status is Observation. Condition is Stable. Problem is new. Symptoms have improved. UTI on Admission? No. aa5 12:24 12:04 07/20/2018 09:58 Hospitalization Ordered by Willy Santacruz DO for Observation. aa5 Preliminary diagnosis is Chest pain, unspecified; Other chronic pancreatitis. Bed requested for Telemetry/MedSurg (observation). Status is Observation. Condition is Stable. Problem is new. Symptoms have improved. UTI on Admission? No. bd
[2018-07-20] MEDS ORDERED: TRAMADOL HCL 50 MG TAB PO PRN (12:22)
[2018-07-20] MEDS ORDERED: HYDRALAZINE HCL 20 MG/ML VIAL IV PRN (12:22)
[2018-07-20] MEDS ORDERED: ACETAMINOPHEN 500 MG TAB PO PRN (12:22)
[2018-07-20] MEDS: AMYLASE/LIPASE/PROTEASE CAP PO SCH ×3 (12:22→21:00)
[2018-07-20] MEDS ORDERED: ONDANSETRON 4 MG/2 ML VIAL IV PRN (12:22)
[2018-07-20] MEDS ORDERED: HYDROCODONE/APAP 7.5/325 MG TAB PO PRN (12:22)
[2018-07-20 13:19] VITALS: BMI 32.5
[2018-07-20] MEDS: NA CHLORIDE 0.9% 1,000 ML IV SCH ×2 (13:38→21:48)
--- NOTE | 2018-07-20 13:57 | P.HP ---
Certification for Inpatient Patient admitted to: Observation With expected LOS: <2 Midnights Patient will require the following post-hospital care: None Practitioner: I am a practitioner with admitting privileges, knowledge of patient current condition, hospital course, and medical plan of care. Services: Services provided to patient in accordance with Admission requirements found in Title 42 Section 412.3 of the Code of Federal Regulations Patient History Date of Service: 07/20/18 Primary Care Provider: Dr. Powell Reason for admission: Chest pain, epigastric pain History of Present Illness: 72-year-old female presented to the emergency room with chest pain. Patient with history of hypertension, hyperlipidemia, chronic pancreatitis and depression. Patient reported left-sided chest pain early this morning. It radiated to the left arm. The pain lasted for several hr. It was associated with some nausea. No vomiting. She denied any shortness of breath. She came to the ER for further evaluation. In the ER she further reported some epigastric pain but no significant nausea or vomiting. In the ER patient evaluated. Initial cardiac enzymes unremarkable. White count 7.6, GFR of 60. Lipase was elevated at 567. CT scan shows mass to the tail the pancreas which his remained stable. No evidence of pancreatitis. The patient was admitted for further evaluation. When I saw the patient ER, she appeared comfortable. Patient works compliance with her medication. Allergies zolpidem [From Ambien] Allergy (Severe, Verified 08/13/16 05:42) Unknown Home medications list reviewed: Yes Home Medications: Citalopram Hydrobromide [Citalopram HBr] 40 mg PO DAILY 07/20/18 Dexlansoprazole [Dexilant] 1 cap PO BID 07/20/18 Gabapentin 300 mg PO BID 07/20/18 Lipase/Protease/Amylase [Raza Kim 36,000 Units Capsule] 1 tab PO TIDWM 07/20/18 Lisinopril [Prinivil*] 20 mg PO DAILY 07/20/18 Simvastatin 20 mg PO DAILY 07/20/18 - Past Medical/Surgical History Has patient received pneumonia vaccine in the past: Yes Diabetic: No -: Chronic pancreatitis -: Gastroesophageal reflux disease w Hiatal hernia -: Esophageal spasm -: Attention deficit disorder -: Hypertension -: Depression with anxiety -: Hyperlipidemia -: Chronic pain -: Fatty liver, nonalcoholic -: Urinary incontinence/Nephrolithiasis -: Recurrent UTI -: Hysterectomy -: Cholecystectomy -: Appendectomy -: back surgery -: knee surgery -: foot surgery -: EGD/ERCP -: Cardiac catheterization, no stent Psychosocial/ Personal History: Patient lives at home - Family History Father -: Diabetes Notes: Type 2 Mother -: Diabetes Notes: Hypoglycemia - Social History Smoking Status: Never smoker Alcohol use: No CD- Drugs: No Caffeine use: Yes Place of Residence: Home Review of Systems General: As per HPI Eyes: Unremarkable ENT: Unremarkable Respiratory: Unremarkable Cardiovascular: Chest Pain, As per HPI Gastrointestinal: Nausea, Abdominal Pain, As per HPI Genitourinary: Unremarkable Musculoskeletal: Unremarkable Integumentary: Unremarkable Neurological: Unremarkable Lymphatics: Unremarkable Physical Examination - Physical Exam General: Alert, In no apparent distress, Oriented x3, Cooperative HEENT: Atraumatic, Mucous membr. moist/pink Neck: Supple, No Thyromegaly Respiratory: Clear to auscultation bilaterally, Normal air movement Cardiovascular: Normal pulses, Regular rate/rhythm Gastrointestinal: Normal bowel sounds, Soft and benign, Non-distended, No masses , Tenderness (Mild pain to the epigastric region) Integumentary: No tenderness/swelling, No erythema, No warmth, No cyanosis Neurological: Normal speech, Normal strength at 5/5 x4 extr, Normal tone, Normal affect - Studies Laboratory Data (last 24 hrs) 07/20/18 08:47: WBC 7.6, Hgb 11.5 L, Hct 35.7 L, Plt Count 253 07/20/18 07:30: Sodium 142, Potassium 4.2, BUN 17, Creatinine 0.92, Glucose 195 H, Total Bilirubin 0.5, AST 14 L, ALT 17, Alkaline Phosphatase 92, Lipase 569 H Assessment and Plan - Plan Impression: Chest pain with noted epigastric pain likely noncardiac and related to acute on chronic pancreatitis Hypertension Hyperlipidemia Depression Pancreatic mass Plan: Chest pain with noted epigastric pain likely noncardiac and related to acute on chronic pancreatitis: Patient will be admitted and observed. Will check echocardiogram and monitor cardiac enzymes. Suspect this is noncardiac in nature. Patient may have early pancreatitis. Will provide IV fluids. Will advance diet as tolerated. Will monitor lipase levels. If echo or cardiac enzymes unremarkable patient will require cardiac evaluation. Will continue monitor closely. Anticipate discharge in the next 24 hr. If with improved symptoms. Will continue with Creon and Protonix. Hypertension: Continue with home medication. Hyperlipidemia: Continue home medication. Depression: Continue medication. Pancreatic mass: Repeat CT scan shows stability. This can be further monitored as an outpatient. Discharge Plan: Home Plan to discharge in: 24 Hours - Advance Directives Does patient have a Living Will: No Does patient have a Durable POA for Healthcare: No - Code Status/Comfort Care Code Status Assessed: Yes (Patient full code.) Time Spent Managing Pts Care (In Minutes): 55
[2018-07-20 14:30] LABS: Thyroid Stimulating Hormone 1.06 uIU/mL (0.360-3.740)
[2018-07-20 14:35] LABS: Creatine Phosphokinase 76 U/L (26-192); Troponin I < 0.02 ng/mL (0.0-0.045)
[2018-07-20] MEDS: MORPHINE 2 MG/ML SYR IV PRN ×2 (15:31→21:47)
--- NOTE | 2018-07-20 16:30 | ECHO ---
HEIGHT: 5 ft 1 in WEIGHT: 172 lb 0 oz DATE OF STUDY: 07/20/[address]: Willy Santacruz DO 2-DIMENSIONAL: YES M.MODE: YES DOPPLER: YES COLOR FLOW: YES TDS: YES PORTABLE: DEFINITY: BUBBLE STUDY: DIAGNOSIS: CHEST PAIN CARDIAC HISTORY: CATHERIZATION: YES SURGERY: NO PROSTHETIC VALVE: NO PACEMAKER: NO MEASUREMENTS (cm) DIASTOLIC (NORMALS) SYSTOLIC (NORMALS) IVSd 1.0 (0.6-1.2) LA Diam 3.3 (1.9-4.0) LVEF 70% LVIDd 3.8 (3.5-5.7) LVIDs 2.3 (2.0-3.5) %FS 39% LVPWd 1.1 (0.6-1.2) Ao Diam 2.5 (2.0-3.7) 2 DIMENSIONAL ASSESSMENT: RIGHT ATRIUM: NORMAL LEFT ATRIUM: NORMAL RIGHT VENTRICLE: NORMAL LEFT VENTRICLE: NORMAL TRICUSPID VALVE: NORMAL MITRAL VALVE: NORMAL PULMONIC VALVE: NORMAL AORTIC VALVE: NORMAL PERICARDIAL EFFUSION: NONE AORTIC ROOT: NORMAL LEFT VENTRICULAR WALL MOTION: NORMAL DOPPLER/COLOR FLOW: MILD TRICUSPID REGURGITATION. NORMAL RIGHT VENTRICULAR SYSTOLIC PRESSURE. COMMENTS: NORMAL TWO DIMENSIONAL ECHOCARDIOGRAM. MILD TRICUSPID REGURGITATION. TECHNOLOGIST: GRAYSON AVILA
--- NOTE | 2018-07-20 19:20 | RAD REPORT ---
EXAM DESCRIPTION: US - Abdomen Exam Complete - 07/20/2018 7:01 pm CLINICAL HISTORY: Abdominal pain COMPARISON: July 20, 2018 cat scan FINDINGS: The liver has an increased echotexture. Cholecystectomy Pancreatic head and body normal in size and echotexture. Pancreatic tail was not visualized second ov erlying bowel gas The right kidney measures 11 centimeters with a normal echotexture. The left kidney measures 11 centimeters with a normal echotexture. 15 millimeter calculus. Borderline mild left hydronephrosis The spleen measures 9 centimeters. The abdominal aorta and inferior vena cava appear unremarkable IMPRESSION: Increased hepatic echotexture consistent with fatty infiltration 15 mm left renal calculus Limited evaluation pancreatic tail
[2018-07-20 22:34] LABS: CKMB Creatine Kinase MB 1.3 ng/mL (0.3-3.6); Creatine Phosphokinase 83 U/L (26-192); Troponin I < 0.02 ng/mL (0.0-0.045)
[2018-07-21] MEDS: MORPHINE 2 MG/ML SYR IV PRN (03:40)
[2018-07-21] MEDS ORDERED: PANTOPRAZOLE 40MG TABLET PO SCH (06:30)
[2018-07-21 06:55] LABS: Absolute Lymphocytes (CBC) 1.8 K/uL (0.7-4.9); Absolute Monocytes 0.6 K/uL (0.1-1.3); Absolute Neutrophil 4.3 K/uL (1.8-8.0); Basophils % 0.7 % (0-1.3); Eosinophils % 3.1 % (0-4.4); Hematocrit 35.3 % (36.0-45.0); Lymphocytes % 26.1 % (15.3-44.8); MPV 8.4 fL (7.6-11.3); Monocytes % 8.8 % (3.3-12.3); RBC Red Blood Cell Count 4.24 M/uL (3.86-4.86)
[2018-07-21 07:20] LABS: Albumin 3.2 g/dL (3.4-5.0); Bilirubin Total 0.4 mg/dL (0.2-1.0); Magnesium 2.2 mg/dL (1.8-2.4); Potassium 4.4 mmol/L (3.5-5.1); Protein, Total 7.1 g/dL (6.4-8.2)
[2018-07-21] MEDS: AMYLASE/LIPASE/PROTEASE CAP PO SCH (07:30)
[2018-07-21] MEDS: NA CHLORIDE 0.9% 1,000 ML IV SCH (08:22)
[2018-07-21] MEDS ORDERED: ENOXAPARIN 40 MG/0.4 ML SQ SCH (09:00)
[2018-07-21] MEDS ORDERED: CITALOPRAM 10 MG TABLET PO SCH (09:00)
[2018-07-21 09:23] VITALS: TEMP 97.2
[2018-07-21 10:41] VITALS: O2SAT 97
--- NOTE | 2018-07-21 11:04 | P.DS ---
Admission Date: 07/20/18 Discharge Date: 07/21/18 Primary Care Provider: Dr. Powell Disposition: ROUTINE DISCHARGE Discharge Condition: GOOD Reason for Admission: Chest pain, epigastric pain Consultations: none Procedures: ECHO: Ejection fraction 70% LEFT VENTRICULAR WALL MOTION: NORMAL DOPPLER/COLOR FLOW: MILD TRICUSPID REGURGITATION. NORMAL RIGHT VENTRICULAR SYSTOLIC PRESSURE. COMMENTS: NORMAL TWO DIMENSIONAL ECHOCARDIOGRAM. MILD TRICUSPID REGURGITATION. ABUS: COMPARISON: July 20, 2018 cat scan FINDINGS: The liver has an increased echotexture. Cholecystectomy Pancreatic head and body normal in size and echotexture. Pancreatic tail was not visualized second overlying bowel gas The right kidney measures 11 centimeters with a normal echotexture. The left kidney measures 11 centimeters with a normal echotexture. 15 millimeter calculus. Borderline mild left hydronephrosis The spleen measures 9 centimeters. The abdominal aorta and inferior vena cava appear unremarkable IMPRESSION: Increased hepatic echotexture consistent with fatty infiltration 15 mm left renal calculus Limited evaluation pancreatic tail CT scan: FINDINGS: A left aortic arch is present with normal branching pattern of the great vessels.No acute aortic finding is seen such as aneurysm, penetrating ulcer or dissection. The celiac axis, SMA, ANA ROSA and renal arteries are widely patent. No evidence of pulmonary embolism. The lungs are clear. Moderate axial hiatal hernia. The gallbladder is surgically absent. Mild pneumobilia is present.The spleen is unremarkable for early arterial phase imaging. Hypodense mass again noted in the pancreatic tail measuring 25 x 24 mm, stable since 03/15/2017 study.Mild mesenteric edema is unchanged. 15 mm oblong stone in the inferior calyx left kidney is unchanged. No right- sided stone or hydronephrosis seen. No significant hydronephrosis. No bowel obstruction, free fluid or abscess.Prominent sigmoid diverticulosis coli without diverticulitis.No pathologic enlarged lymphadenopathy identified. Advanced lumbar degenerative changes are present. IMPRESSION: No acute aortic finding is demonstrated. Nonspecific 25 x 24 mm mass in the pancreatic tail is stable since 2018 comparative study. Continued surveillance imaging with follow-up imaging of the pancreas in 6-12 months is advised. 15 mm inferior left renal calculus without hydronephrosis. Heart Catheterization(11/18/2017) Surgeon: Rishi Mclean MD History: Mrs. Bettencourt had a left heart catheterization, coronary left ventricular angiogram. Indication: Chest pain with abnormal myocardial perfusion image stress test. Findings: The patient's coronary arteries are normal. Left ventricular ejection fraction is normal. All of her pressures were normal including left ventricular end-diastolic pressure. 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 Patient with history of hypertension, hyperlipidemia, chronic pancreatitis and depression. Patient reported left-sided chest pain early this morning. It radiated to the left arm. The pain lasted for several hr. It was associated with some nausea. No vomiting. She denied any shortness of breath. She came to the ER for further evaluation. In the ER she further reported some epigastric pain but no significant nausea or vomiting. In the ER patient evaluated. Initial cardiac enzymes unremarkable. White count 7.6, GFR of 60. Lipase was elevated at 567. CT scan shows mass to the tail the pancreas which his remained stable. No evidence of pancreatitis. The patient was admitted for further evaluation. When I saw the patient ER, she appeared comfortable. Patient works compliance with her medication. Hospital Course: Patient presented with chest pain and epigastric pain. Patient was admitted for further evaluation. Cardiac enzymes unremarkable. No significant ST changes noted. Patient had prior heart catheterization in November of last year. She had normal coronaries at that time. Echocardiogram unremarkable. Chest pain likely related to epigastric pain. CT did not reveal significant inflammation to the pancreas however lipase was slightly elevated. Patient likely with acute on chronic pancreatitis. CT did reveal a stable pancreatic mass. Patient reports a history of chronic pancreatitis. Patient is seen and followed by GI closely. Patient takes Creon. Patient received IV fluids. Diet was advanced. At discharge she is without any significant pain or vomiting. Patient with chronic pain and takes gabapentin. At discharge patient will continue with Creon 36,000 3 times a day. May continue with gabapentin 300 mg 1 pill twice daily. She is to continue with a GI soft diet. Dietary changes addressed. Recommend to follow up with GI as an outpatient further monitor. Recommend to follow up with cardiology in 2-4 weeks if chest pain persists. Patient will be provided a limited supply of pain medication- tramadol 50 mg 1 pill twice daily as needed for pain and Zofran 4 mg 3 times a day as needed for nausea. If symptoms of pancreatitis increased patient is to return to the hospital otherwise follow up with GI. Patient with hypertension. At discharge patient will continue with lisinopril 20 mg daily. Recommend to maintain blood pressures less 150/80. Further adjustment can be done by her PCP. Patient with mixed hyperlipidemia. Patient currently on Zocor 20 mg daily. Triglycerides slightly elevated. In light of her history of pancreatitis will start Fish oil as well. At discharge patient will continue with Zocor 20 mg daily and fish oil 2000 mg twice daily. Recommend to recheck lab-fasting lipid panel in 4-6 weeks to monitor her progress. Further adjustment can be done by her PCP. Patient with depression. At discharge she will continue with Celexa 40 mg daily. Patient with GERD. Patient reports having EGD several weeks ago. She is seen and followed by GI closely. Recommend to follow up with GI as directed. Patient will continue with Dexilant 30 mg 1 pill twice daily. Dietary changes addressed in detail. CT revealed stable 25 x 24 mm mass in the pancreatic tail since 2018. Recommend to follow up with GI as an outpatient to further monitor. Patient may need to have follow up CT scan in 6-12 months to monitor stability. Patient with 15 mm inferior left renal calculus without hydronephrosis. This can be further monitored by her PCP. Patient with fatty liver. Lifestyle modification education addressed in detail. Patient will follow up with GI to further monitor and address. Vital Signs/Physical Exam: Temp Pulse Resp BP Pulse Ox 97.2 F 51 16 141/64 H 96 07/21/18 08:00 07/21/18 08:00 07/21/18 08:00 07/21/18 08:00 07/21/18 08:00 General: Alert, In no apparent distress, Oriented x3, Cooperative HEENT: Atraumatic Neck: Supple Respiratory: Clear to auscultation bilaterally, Normal air movement Cardiovascular: Normal pulses, Regular rate/rhythm Gastrointestinal: Normal bowel sounds, Soft and benign, Non-distended, No ascites, No tenderness, No masses, No rebound, No guarding Musculoskeletal: No erythema, No tenderness, No warmth Integumentary: No tenderness/swelling, No erythema, No warmth, No cyanosis Neurological: Normal speech, Normal strength at 5/5 x4 extr, Normal tone, Normal affect Laboratory Data at Discharge: WBC 7.1 K/uL (4.3-10.9) 07/21/18 06:20 Hgb 11.4 g/dL (12.0-15.0) L 07/21/18 06:20 Hct 35.3 % (36.0-45.0) L 07/21/18 06:20 Plt Count 209 K/uL (152-406) 07/21/18 06:20 Sodium 140 mmol/L (136-145) 07/21/18 06:20 Potassium 4.4 mmol/L (3.5-5.1) 07/21/18 06:20 BUN 12 mg/dL (7-18) 07/21/18 06:20 Creatinine 0.72 mg/dL (0.55-1.3) 07/21/18 06:20 Glucose 114 mg/dL (74-106) H 07/21/18 06:20 Magnesium 2.2 mg/dL (1.8-2.4) 07/21/18 06:20 Total Bilirubin 0.4 mg/dL (0.2-1.0) 07/21/18 06:20 AST 10 U/L (15-37) L 07/21/18 06:20 ALT 16 U/L (12-78) 07/21/18 06:20 Alkaline Phosphatase 86 U/L (45-117) 07/21/18 06:20 Troponin I < 0.02 ng/mL (0.0-0.045) 07/20/18 22:05 Triglycerides 221 mg/dL (<150) H 07/20/18 13:00 Cholesterol 212 mg/dL (<200) H 07/20/18 13:00 HDL Cholesterol 52 mg/dL (40-60) 07/20/18 13:00 Cholesterol/HDL Ratio 4.08 07/20/18 13:00 Lipase 449 U/L (73-393) H 07/20/18 13:55 Home Medications: Citalopram Hydrobromide [Citalopram HBr] 40 mg PO DAILY 07/20/18 Dexlansoprazole [Dexilant] 1 cap PO BID 07/20/18 Gabapentin 300 mg PO BID 07/20/18 Lipase/Protease/Amylase [Raza Kim 36,000 Units Capsule] 1 tab PO TIDWM 07/20/18 Lisinopril [Prinivil*] 20 mg PO DAILY 07/20/18 Simvastatin 20 mg PO DAILY 07/20/18 Coram-3 Fatty Acids/Fish Oil [Fish Oil 1,000 mg Softgel] 2 each PO BID #120 capsule 07/21/18 Ondansetron HCl [Zofran] 4 mg PO TID PRN #10 tablet 07/21/18 Tramadol HCl [Ultram] 50 mg PO BID PRN #10 tablet 07/21/18 New Medications: Coram-3 Fatty Acids/Fish Oil [Fish Oil 1,000 mg Softgel] 2 each PO BID #120 capsule Ondansetron HCl [Zofran] 4 mg PO TID PRN #10 tablet PRN Reason: Nausea / Vomiting Tramadol HCl [Ultram] 50 mg PO BID PRN #10 tablet PRN Reason: Abdominal Pain Patient Discharge Instructions: 1. Follow up with PCP in 1 week to follow up this hospitalization. 2. Patient presented with chest pain and epigastric pain. Patient was admitted for further evaluation. Cardiac enzymes unremarkable. No significant ST changes noted. Patient had prior heart catheterization in November of last year. She had normal coronaries at that time. Echocardiogram unremarkable. Chest pain likely related to epigastric pain. CT did not reveal significant inflammation to the pancreas however lipase was slightly elevated. Patient likely with acute on chronic pancreatitis. CT did reveal a stable pancreatic mass. Patient reports a history of chronic pancreatitis. Patient is seen and followed by GI closely. Patient takes Creon. Patient received IV fluids. Diet was advanced. At discharge she is without any significant pain or vomiting. Patient with chronic pain and takes gabapentin. At discharge patient will continue with Creon 36,000 3 times a day. May continue with gabapentin 300 mg 1 pill twice daily. She is to continue with a GI soft diet. Dietary changes addressed. Recommend to follow up with GI as an outpatient further monitor. Recommend to follow up with cardiology in 2-4 weeks if chest pain persists. Patient will be provided a limited supply of pain medication-tramadol 50 mg 1 pill twice daily as needed for pain and Zofran 4 mg 3 times a day as needed for nausea. If symptoms of pancreatitis increased patient is to return to the hospital otherwise follow up with GI. 3. Patient with hypertension. At discharge patient will continue with lisinopril 20 mg daily. Recommend to maintain blood pressures less 150/80. Further adjustment can be done by her PCP. 4. Patient with mixed hyperlipidemia. Patient currently on Zocor 20 mg daily. Triglycerides slightly elevated. In light of her history of pancreatitis will start Fish oil as well. At discharge patient will continue with Zocor 20 mg daily and fish oil 2000 mg twice daily. Recommend to recheck lab-fasting lipid panel in 4-6 weeks to monitor her progress. Further adjustment can be done by her PCP. 5. Patient with depression. At discharge she will continue with Celexa 40 mg daily. 6. Patient with GERD. Patient reports having EGD several weeks ago. She is seen and followed by GI closely. Recommend to follow up with GI as directed. Patient will continue with Dexilant 30 mg 1 pill twice daily. Dietary changes addressed in detail. 7. CT revealed stable 25 x 24 mm mass in the pancreatic tail since 2018. Recommend to follow up with GI as an outpatient to further monitor. Patient may need to have follow up CT scan in 6-12 months to monitor stability. 8. Patient with 15 mm inferior left renal calculus without hydronephrosis. This can be further monitored by her PCP. 9. Patient with fatty liver. Lifestyle modification education addressed in detail. Patient will follow up with GI to further monitor and address. Diet: GI soft low fat diet Activity: Ad ange Time spent managing pt's care (in minutes): 55
[2018-07-21 12:52] VITALS: BP 127/95
== END 2018-07-21 14:00 | disposition home or self-care (01) ==
LOC: ER 07:08 → ERHOLD 11:08 → 4TH 12:18
PROVIDERS: ADMIT Family Medicine; ATTEND Family Medicine
DX: R07.9 Chest pain, unspecified (principal); R10.13 Epigastric pain; I10 Essential (primary) hypertension; E78.2 Mixed hyperlipidemia; K86.1 Other chronic pancreatitis; F32.9 Major depressive disorder, single episode, unspecified; K86.9 Disease of pancreas, unspecified; K21.9 Gastro-esophageal reflux disease without esophagitis; G89.29 Other chronic pain; N20.0 Calculus of kidney; K76.0 Fatty (change of) liver, not elsewhere classified; Z88.8 Allergy status to other drugs, medicaments and biological substances
CPT/HCPCS: 93005; 93306; 87040 ×2; 85025 ×2; 80048; 36415; 83735; 82550 ×2; 80061; 80076; 84443; 81003; 84484 ×3; 82553 ×2; 84439; 83690 ×3; 80053; 83880; 71275; 74175; 71045; 76700; 96374; 99285; Q9967; J1650; J2270 ×3; J7030 ×2; J2405 ×2; G0378 ×2

== ENCOUNTER 2018-08-28 09:57 | Emergency (ER) | payer OTHER ==
--- OUTSIDE RECORDS SUMMARY | 2018-08-28 10:00 | XMS REPORT ---
[...] Medications Results No Known Results Summary Purpose [employer] Submission
--- OUTSIDE RECORDS SUMMARY | 2018-08-28 10:00 | XMS REPORT ---
[...] End Status Dosage System Date Date Culturelle [facility] 19357205852 - Orally Active not defined Nystatin [facility] 40930882781 009708 UNIT/GM Active 1 application Externally to affected Twice a day area Simvastatin [facility] 59230072260 20 MG Orally Active 1 tablet in Once a day the evening Clotrimazole [facility] 20930920252 1 % Externally Active 1 application Twice a day to affected area Trazodone HCl [facility] 66556108561 100 MG Orally Active 1 tablet at Once a day bedtime Zestoretic [facility] 03674054576 10-12.5 MG Active 1 tablet Orally Twice a day Protonix [facility] 47413301761 40 MG Orally Active 1 tablet Twice a day Estrace [facility] 78228989304 0.1 MG/GM Active as directed Vaginal twice weekly Neurontin [facility] 10123737513 300 MG Orally Active 1 capsule Three times a before day bedtime Citalopram [facility] 49865779628 40 MG Orally Active 1 tablet Hydrobromide Once a day Creon [facility] 91901305014 66461-99996 Active 1 cap UNIT Orally three times a day Results No Known Results Summary Purpose eClinicalWorks Submission
--- OUTSIDE RECORDS SUMMARY | 2018-08-28 10:00 | XMS REPORT ---
[...] Unit Abnormality Flag URINALYSIS AUTO W/O SCOPE (65516) ----MARY 1+ [id number] ----NIT neg [id number] ----PROTEIN neg [id number] ----pH 5.0 20170930 ----BLO trace [id number] ----GLUCOSE neg [id number] ----BILIRUBIN neg [id number] ----KETONES neg [id number] ----SPECIFIC GRAVITY >=1.030 20170930 Summary Purpose eClinicalWorks Submission
--- OUTSIDE RECORDS SUMMARY | 2018-08-28 10:00 | XMS REPORT ---
[...] End Status Dosage System Date Date Citalopram [facility] 31528047827 40 MG Orally Active 0.5 tablet Hydrobromide Once a day Simvastatin ND 89361846352 20 MG Orally Active 1 tablet in Once a day the evening Clotrimazole [facility] 69996108445 1 % Externally Active 1 application Twice a day to affected area Nystatin [facility] 41115611210 117711 UNIT/GM Active 1 application Externally to affected Twice a day area Protonix [facility] 49481490171 40 MG Orally Active 1 tablet Twice a day Creon [facility] 04564098030 08855-25264 Active 1 cap UNIT Orally three times a day Trazodone HCl ND 24007396761 100 MG Orally August 27, Active 1Take 1/2 tab Once a day 2018 QHS x 1 week then [address] [facility] 43338924252 300 MG Orally Active 1 capsule Three times a before day bedtime Estrace [facility] 02090629989 0.1 MG/GM September 09, Active as directed Vaginal twice [address] [facility] 66580124562 - Orally Active not defined Zestoretic [facility] 46990290798 10-12.5 MG Active 1 tablet Orally Once a day Results No Known Results Summary Purpose eClinicalWorks Submission
--- OUTSIDE RECORDS SUMMARY | 2018-08-28 10:01 | XMS REPORT ---
[...] End Status Dosage System Date Date Zestoretic [facility] 30281384793 20-25 MG Mar 09, Active 1 tablet Orally Once a 2018 day Estrace [facility] 02610792378 0.1 MG/GM Active as directed Vaginal twice weekly Trazodone HCl [facility] 12223082317 100 MG Orally Active 1 tablet at Once a day bedtime Citalopram [facility] 74941397762 40 MG Orally Active 1 tablet Hydrobromide Once a day Zestoretic [facility] 90056493777 10-12.5 MG Inactive 1 tablet Orally Twice a day Nystatin [facility] 24508140949 222117 UNIT/GM Active 1 application Externally to affected Twice a day area Clotrimazole [facility] 31849363115 1 % Externally Active 1 application Twice a day to affected area Protonix [facility] 08896064679 40 MG Orally Active 1 tablet Twice a day Simvastatin [facility] 33888061182 20 MG Orally Active 1 tablet in Once a day the evening Neurontin [facility] 93042933327 300 MG Orally Inactive 1 capsule Three times a before day bedtime Culturelle [facility] 66183068308 - Orally Active not defined Creon [facility] 42142636059 23622-30054 Active 1 cap UNIT Orally three times a day Results No Known Results Summary Purpose eClinicalWorks Submission
--- OUTSIDE RECORDS SUMMARY | 2018-08-28 10:01 | XMS REPORT ---
[...] Status Dosage System Date Date Simvastatin ND 91621137218 20 MG Orally Active 1 tablet in Once a day the evening Clotrimazole [facility] 16114654762 1 % Externally Active 1 application Twice a day to affected area Culturelle [facility] 27903920174 - Orally Active not defined Creon [place] 82491779255 42842-40016 Active 1 cap UNIT Orally three times a day Citalopram [facility] 26598743665 40 MG Orally Active 1 tablet Hydrobromide Once a day Zestoretic ND 57978806329 20-25 MG Orally Mar 09, Active 1 tablet Once a day 2018 Protonix ND 85081742742 40 MG Orally Active 1 tablet Twice a day Azithromycin ND 07287041787 250 MG Orally Apr 25, Apr Active 2 tablets on Once a day 2018, the first 2019 day, then 1 tablet daily for 4 days ProAir HFA [facility] 75786736442 108 (90 Base) Apr 25, Active 2 puffs as MCG/ACT 2018 needed Inhalation every 6 hrs PRN COugh, Wheezing or shortness of breath Estrace [facility] 92015386837 0.1 MG/GM Active as directed Vaginal twice weekly Trazodone HCl [facility] 76855103696 100 MG Orally Active 1 tablet at Once a day bedtime Nystatin [facility] 82847842600 009461 UNIT/GM Active 1 application Externally to affected Twice a day area Results Name Result Date Reference Range Unit Abnormality Flag FLU TEST ----A NEG [id number] ----B NEG [id number] STREP A RAPID ----Result NEG [id number] Summary Purpose eClinicalWorks Submission
--- OUTSIDE RECORDS SUMMARY | 2018-08-28 10:01 | XMS REPORT ---
[...] Medications Results No Known Results Summary Purpose [employer] Submission
--- OUTSIDE RECORDS SUMMARY | 2018-08-28 10:02 | XMS REPORT ---
[...] Medications Results No Known Results Summary Purpose [employer] Submission
--- OUTSIDE RECORDS SUMMARY | 2018-08-28 10:02 | XMS REPORT ---
[...] Medications Results No Known Results Summary Purpose [email or web address] Submission
--- OUTSIDE RECORDS SUMMARY | 2018-08-28 10:02 | XMS REPORT ---
[...] Status Dosage System Date Date ProAir HFA [facility] 77913285108 108 (90 Base) Apr 25, Active 2 puffs as MCG/ACT 2019 needed Inhalation every 6 hrs PRN COugh, Wheezing or shortness of breath Culturelle [facility] 36389389616 - Orally Active not defined Creon [facility] 37258764861 82008-08978 Active 1 cap UNIT Orally three times a day Citalopram [facility] 21982692558 40 MG Orally Active 1 tablet Hydrobromide Once a day Clotrimazole [facility] 79039025738 1 % Externally Active 1 application Twice a day to affected area Neurontin [facility] 28490472296 300 MG Orally Active 1 capsule Twice a day before bedtime Simvastatin [facility] 44730313372 20 MG Orally Active 1 tablet in Once a day the evening Clonidine HCl [facility] 80234418771 0.1 MG Orally Active 1 tablet at Once a day bedtime Metoprolol [facility] 25028613175 50 MG Orally Active 1 tablet with Tartrate Twice a day food Trazodone HCl [facility] 75466455951 100 MG Orally Active 1 tablet at Once a day bedtime Protonix [facility] 21996753097 40 MG Orally Active 1 tablet Twice a day Estrace [facility] 81224256372 0.1 MG/GM Active as directed Vaginal twice weekly Nystatin [facility] 91780128834 993726 UNIT/GM Active 1 application Externally to affected Twice a day area Zestoretic [facility] 81223218115 20-25 MG Orally Active 1 tablet Once a day Results No Known Results Summary Purpose eClinicalWorks Submission
[2018-08-28] MEDS ORDERED: HYDROCODONE/APAP 10/325 TAB ONE (10:47)
--- NOTE | 2018-08-28 12:05 | RAD REPORT ---
EXAM DESCRIPTION: CT - [id number] - 08/28/2018 11:39 am CLINICAL HISTORY: Fall, head and neck injury, facial injury COMPARISON: CT head September 26, 2017 TECHNIQUE: Axial 5 mm thick images of the head were obtained. Axial 2 mm thick images of the cervic al spine were obtained with sagittal and coronal reconstruction images generated and reviewed. All CT scans are performed using dose optimization technique as appropriate and may include automated exposure control or mA/KV adjustment according to patient size. FINDINGS: No intracranial hemorrhage, mass, edema or acute intracranial finding. No suspicion for acute infarct ion. Atrophy and chronic ischemic changes are present not substantially different from comparison. Ar terial and physiologic calcifications are present. Mastoid air cells and paranasal sinuses are clear. Ventricles are in proportion to volume loss. No globe or orbit abnormality seen. Cervical bodies are normal in height. Minimal C4 anterior subluxation secondary to prominent facet de generative change. C5-6 and C6-7 disc space narrowing present. Prominent facet degenerative change pr esent at C3-4, C4-5 and on the right at C5-6. No significant degree of foraminal stenosis. No fractur e or acute bony abnormality. Central canal detail is inherently limited. No paraspinal mass or hematoma. IMPRESSION: Mild atrophy and chronic ischemic change with no acute intracranial finding. No signific ant change from 2018. Cervical spine degenerative change with no acute finding.
--- NOTE | 2018-08-28 12:07 | RAD REPORT ---
EXAM DESCRIPTION: CT - Facial Bones W/ Mpr - 08/28/2018 11:39 am CLINICAL HISTORY: Fall, head and neck injury, facial trauma COMPARISON: None. TECHNIQUE: Axial 2 millimeter thick images of the facial bones were obtained with sagittal and coron al reconstruction imaging. All CT scans are performed using dose optimization technique as appropriate and may include automated exposure control or mA/KV adjustment according to patient size. FINDINGS: No mandible fracture. Condyles are normally positioned. Mastoid air cells and paranasal si nuses are clear. No skullbase fracture identified. No globe or orbital content abnormality. No air-fl uid level in the paranasal sinuses. No facial bone fracture identified. No foreign body in the soft t issues. IMPRESSION: No facial bone fracture. No significant injury identifiable.
--- NOTE | 2018-08-28 12:49 | RAD REPORT ---
EXAM DESCRIPTION: RAD - Chest Single View - 08/28/2018 11:26 am CLINICAL HISTORY: Fall, shortness of breath COMPARISON: July 2018 TECHNIQUE: AP portable chest image was obtained 1108 hours . FINDINGS: Lungs are clear. Heart and vasculature are normal. No measurable pleural effusion and no p neumothorax. No acute bony abnormality seen. No acute aortic findings suspected. IMPRESSION: No acute cardiopulmonary process. No significant change from comparison.
--- NOTE | 2018-08-28 12:50 | RAD REPORT ---
EXAM DESCRIPTION: RAD - Wrist Right 3 View - 08/28/2018 11:26 am CLINICAL HISTORY: Fall, right wrist pain COMPARISON: None. FINDINGS: No fracture is identified. There is no dislocation or periosteal reaction noted. Prominent degenerative change involves the trapezial first metacarpal articulation. A more mild degenerative c hange involves the scaphoid trapezial articulation. No foreign body or other soft tissue abnormality. IMPRESSION: Degenerative change in the right wrist as detailed. No fracture identified.
--- NOTE | 2018-08-28 12:52 | RAD REPORT ---
EXAM DESCRIPTION: RAD - Hand Right 3 View - 08/28/2018 11:26 am CLINICAL HISTORY: Fall, right hand pain COMPARISON: November 2009 FINDINGS: No fracture is identified. There is no dislocation or periosteal reaction noted. IP joint space narrowing and spurring changes are present progressive from 2009. Joint space narrowing and sp urring changes are present at the first MCP joint with joint space narrowing and a mild radial side s ubluxation of the third MCP joint. Degenerative changes are present at the trapezium first metacarpal articulation. IMPRESSION: Right hand degenerative changes are present as detailed. No fracture or acute finding no valentin.
--- NOTE | 2018-08-28 12:52 | RAD REPORT ---
EXAM DESCRIPTION: RAD - Elbow Right 3 View - 08/28/2018 11:26 am CLINICAL HISTORY: Fall, elbow pain COMPARISON: None. FINDINGS: No fracture is identified and no elevated posterior fat pad. There is no dislocation or pe riosteal reaction noted. Mild degenerative changes are present along the articular margins. No pathol ogic bone process. No significant periarticular finding. IMPRESSION: Right elbow degenerative change mild in degree with no acute finding.
--- NOTE | 2018-08-28 12:53 | RAD REPORT ---
EXAM DESCRIPTION: Shoulder Right 2 View - 08/28/2018 11:26 am CLINICAL HISTORY: Fall, right shoulder pain COMPARISON: None. TECHNIQUE: Internal and external rotation views of the right shoulder were obtained. FINDINGS: There is no fracture or dislocation. Postsurgical resection of the lateral clavicle is pr esent including the head of the clavicle. Acromial humeral joint space is normal. Benign calcificatio n is seen lateral to the acromion. No acute or suspicious findings. IMPRESSION: Postsurgical changes are noted to the right clavicle and AC joint. Minimal degenerative change noted. No fracture or dislocation.
--- NOTE | 2018-08-28 12:54 | RAD REPORT ---
EXAM DESCRIPTION: RAD - Knee Right 3 View - 08/28/2018 11:26 am CLINICAL HISTORY: Fall, knee pain COMPARISON: None. FINDINGS: No fracture, dislocation or periosteal reaction.No joint effusion seen. Very slight narrow ing of the medial compartment. Very minimal marginal spurring changes are present. No foreign body or other soft tissue abnormality. IMPRESSION: Minimal right knee degenerative change with no acute bone or joint finding. Clinical concerns for internal derangement or occult bony injury could be further assessed with MR im aging.
--- NOTE | 2018-08-28 13:27 | EDPHYS ---
Physician Documentation [facility] Name: Isadora Bettencourt Age: 72 yrs Sex: Female : 1945 Arrival Date: 08/28/2018 Time: 10:00 Bed 20 Private MD: Dmitry Powell ED Physician Anthony Kaminski HPI: 08/28 10:15 This 72 yrs old Female presents to ER via Wheelchair with complaints of Fall jmm Injury. 10:15 Details of fall: The patient fell from an upright position. Onset: The symptoms/episode jmm began/occurred acutely, just prior to arrival. Patient complaints of headache and right sided pain after fall on the side walk while pulling weeds. Patient denies loc, denies vomiting. Complains of of pain to the right side of her face, right shoulder, right elbow, right wrist, right hand, and right knee. Patient denies other injury. . 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 - Social history:: Smoking status: Patient/guardian denies using tobacco. - Ebola Screening: : Patient negative for fever greater than or equal to 101.5 degrees Fahrenheit, and additional compatible Ebola Virus Disease symptoms Patient denies exposure to infectious person Patient denies travel to an Ebola-affected area in the 21 days before illness onset No symptoms or risks identified at this time. ROS: 10:21 Constitutional: Negative for fever, chills, and weight loss, Cardiovascular: Negative jmm for chest pain, palpitations, and edema, Respiratory: Negative for shortness of breath, cough, wheezing, and pleuritic chest pain. 10:21 MS/extremity: Positive for injury or acute deformity, pain. 10:21 Neuro: Positive for headache. 10:21 All other systems are negative. Exam: 10:21 Constitutional: This is a well developed, well nourished patient who is awake, alert, jmm and in no acute distress. 10:21 Eyes: EOMI, no conjunctival erythema appreciated ENT: Moist Mucus Membranes Neck: Trachea midline, Supple Cardiovascular: Regular rate and rhythm. No edema appreciated Respiratory: Normal respirations, no respiratory distress appreciated Abdomen/GI: Non distended, soft 10:21 Head/face: right maxillary tenderness on palpation, no obvious deformity appreciated. 10:21 Chest/axilla: right sided chest pain on palpation. 10:21 Musculoskeletal/extremity: diffuse tenderness noted to the right shoulder, elbow, wrist, hand, no obvious deformity appreciated, compartments are soft, full radial pulse. Right knee pain on palpation, patient is able to bear weight without difficulty. . 10:21 Skin: Appearance: Color: normal in color. 10:21 Neuro: Orientation: is normal, Mentation: is normal, Memory: is normal. 10:21 Psych: Behavior/mood is pleasant, cooperative. Vital Signs: 10:20 BP 172 / 83; Pulse 63; Resp 16 S; Temp 97.9; Pulse Ox 99% on R/A; Weight 81.65 kg; iw Height 5 ft. 1 in. (154.94 cm); Pain 10/10; 12:50 BP 189 / 85; Pulse 56; Resp 16; Pulse Ox 98% on R/A; em 13:34 BP 154 / 83; Pulse 74; Resp 18; Pulse Ox 99% on R/A; Pain 8/10; em 10:20 Body Mass Index 34.01 (81.65 kg, 154.94 cm) iw MDM: 10:15 Patient medically screened. [facility] 13:06 Data reviewed: vital signs, nurses notes. Counseling: I had a detailed discussion with dayan the patient and/or guardian regarding: the historical points, exam findings, and any diagnostic results supporting the discharge/admit diagnosis, radiology results, the need for outpatient follow up, to return to the emergency department if symptoms worsen or persist or if there are any questions or concerns that arise at home. ED course: Pain is relieved in the ED. Patient is advised to follow up with pcp and otherwise given strict return precautions. patient understood and agrees with the plan of care. . 08/28 10: Order name: CT Head C Spine; Complete Time: 12:09 [facility] 08/28 10: Order name: CT Facial Bones W/O Con; Complete Time: 12:09 [facility] 08/28 10: Order name: Chest Single View XRAY; Complete Time: 13:01 [facility] 08/28 10: Order name: Shoulder Right (2 View) XRAY; Complete Time: 13:01 [facility] 08/28 10:26 Order name: Wrist Right 3 View XRAY; Complete Time: 13:01 [facility] 08/28 10:26 Order name: Elbow Right 3 View XRAY; Complete Time: 13:01 [facility] 08/28 10:26 Order name: Hand Right 3 View XRAY; Complete Time: 13:01 [facility] 08/28 10:26 Order name: Knee Right 3 View XRAY; Complete Time: 13: [facility] 08/28 13:09 Order name: Wrist Splint; Complete Time: 13:33 [facility] Administered Medications: 10:36 Drug: [place] 10 mg-325 mg 1 tabs Route: PO; em 13:12 Follow up: Response: No adverse reaction; Pain is decreased em Disposition: 08/29 09:56 Co-signature as Attending Physician, Anthony Kaminski MD I agree with the assessment and james plan of care. Disposition: 08/28/18 13:25 Discharged to Home. Impression: Sprain of other part of right wrist and hand, Other sprain of right shoulder joint, Contusion of right knee, Superficial injury of head. - Condition is Stable. - Discharge Instructions: Head Injury, Adult, Shoulder Pain, Knee Pain, Wrist Sprain. - Prescriptions for Ibuprofen 800 mg Oral Tablet - take 1 tablet by ORAL route every 12 hours As needed take with food; 10 tablet. orphenadrine citrate 100 mg Oral Tablet Sustained Release - take 1 tablet by ORAL route 2 times per day As needed; 20 tablet. - Medication Reconciliation Form, Thank You Letter, Antibiotic Education, Prescription Opioid Use, Work release form form. - Follow up: Dmitry Powell, DO; When: 2 - 3 days; Reason: Recheck today's complaints, Continuance of care, Re-evaluation by your physician. Signatures: Dispatcher [employer] Anthony Peralta MD MD cha Mickail, Joel, PA PA Fernando Chan, FITNESS TEACHER FITNESS TEACHER em Maddy Lopez RN RN iw Joaquin, Henry, RN RN Corrections: (The following items were deleted from the chart) 08/28 11:05 10:55 Chest Single View ordered. [facility] 11:05 10:55 Knee Right 3 View ordered. [facility] 11:05 10:55 Hand Right 3 View ordered. [facility] 11:05 10:56 Elbow Right 3 View ordered. [facility] 11:05 10:56 Shoulder Right 2 View ordered. [facility] 11:05 10:56 Wrist Right 3 View ordered. [facility] 13:47 13:25 08/28/2018 13:25 Discharged to Home. Impression: Sprain of other part of right hj wrist and hand; Other sprain of right shoulder joint; Contusion of right knee; Superficial injury of head. Condition is Stable. Forms are Medication Reconciliation Form, Thank You Letter, Antibiotic Education, Prescription Opioid Use. Follow up: Dmitry Powell; When: 2 - 3 days; Reason: Recheck today's complaints, Continuance of care, Re-evaluation by your physician. dayan
--- NOTE | 2018-08-28 13:27 | ER ---
Nurse's Notes [facility] Name: Isadora Bettencourt Age: 72 yrs Sex: Female : 1945 Arrival Date: 08/28/2018 Time: 10:00 Bed 20 Private MD: Dmitry Powell Diagnosis: Sprain of other part of right wrist and hand;Other sprain of right shoulder joint;Contusion of right knee;Superficial injury of head Presentation: 08/28 10:15 Presenting complaint: Patient states: was out pulling weeds this morning, lost her iw balance and fell forward, fell onto right side, c/o pain to right side of face, right shoulder, right knee, denies LOC, not on blood thinner. Care prior to arrival: None. 10:15 Acuity: FRANDY 4 iw 10:15 Method Of Arrival: Wheelchair iw 10:19 Transition of care: patient was not received from another setting of care. Onset of iw symptoms was August 28, 2018. Risk Assessment: Do you want to hurt yourself or someone else? Patient reports no desire to harm self or others. Initial Sepsis Screen: Does the patient meet any 2 criteria? No. Patient's initial sepsis screen is negative. Does the patient have a suspected source of infection? No. Patient's initial sepsis screen is negative. 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 - Social history:: Smoking status: Patient/guardian denies using tobacco. - Ebola Screening: : Patient negative for fever greater than or equal to 101.5 degrees Fahrenheit, and additional compatible Ebola Virus Disease symptoms Patient denies exposure to infectious person Patient denies travel to an Ebola-affected area in the 21 days before illness onset No symptoms or risks identified at this time. Screenin:24 Abuse screen: Denies threats or abuse. Nutritional screening: No deficits noted. em Tuberculosis screening: No symptoms or risk factors identified. Fall Risk None identified. Assessment: 10:30 General: Appears in no apparent distress. comfortable, Behavior is calm, cooperative. em Pain: Complains of pain in face, pelvis, right hand, right arm and right leg Pain currently is 10 out of 10 on a pain scale. Neuro: Level of Consciousness is awake, alert, obeys commands, Oriented to person, place, time, situation. Cardiovascular: Capillary refill < 3 seconds Patient's skin is warm and dry. Respiratory: Airway is patent Respiratory effort is even, unlabored, Respiratory pattern is regular, symmetrical. Derm: Skin is intact, is healthy with good turgor, Skin is pink, warm \T\ dry. Musculoskeletal: Capillary refill < 3 seconds, Range of motion: intact in all extremities. 10:57 Reassessment: wheeled to radiology dept. via stretcher. em 11:43 Reassessment: Patient appears in no apparent distress at this time. returned from em radiology dept. 12:39 Reassessment: Patient appears in no apparent distress at this time. Patient and/or em family updated on plan of care and expected duration. Pain level reassessed. Patient is alert, oriented x 3, equal unlabored respirations, skin warm/dry/pink. Patient states feeling better. 13:47 Reassessment: Patient appears in no apparent distress at this time. Patient and/or hj family updated on plan of care and expected duration. Pain level reassessed. Patient is alert, oriented x 3, equal unlabored respirations, skin warm/dry/pink. Vital Signs: 10:20 BP 172 / 83; Pulse 63; Resp 16 S; Temp 97.9; Pulse Ox 99% on R/A; Weight 81.65 kg; iw Height 5 ft. 1 in. (154.94 cm); Pain 10/10; 12:50 BP 189 / 85; Pulse 56; Resp 16; Pulse Ox 98% on R/A; em 13:34 BP 154 / 83; Pulse 74; Resp 18; Pulse Ox 99% on R/A; Pain 8/10; em 10:20 Body Mass Index 34.01 (81.65 kg, 154.94 cm) iw ED Course: 10:00 Patient arrived in ED. mr 10:00 Dmitry Powell DO is Private Physician. mr 10:13 [facility] m 10:13 Anthony Kaminski MD is Attending Physician. [facility] 10:19 Triage completed. iw 10:20 Arm band placed on. iw 10:24 Fernando Hill LVN is Primary Nurse. em 10:24 Patient has correct armband on for positive identification. Bed in low position. Call em light in reach. Side rails up X2. 11:26 Chest Single View XRAY In Process Unspecified. [facility] 11:26 Shoulder Right (2 View) XRAY In Process Unspecified. [facility] 11:26 Wrist Right 3 View XRAY In Process Unspecified. [facility] 11:26 Elbow Right 3 View XRAY In Process Unspecified. [facility] 11:26 Hand Right 3 View XRAY In Process Unspecified. [facility] 11:26 Knee Right 3 View XRAY In Process Unspecified. EDMS 11:39 CT Head C Spine In Process Unspecified. EDMS 11:39 CT Facial Bones W/O Con In Process Unspecified. [facility] 13:25 Dmitry Powell DO is Referral Physician. m 13:34 No provider procedures requiring assistance completed. Patient did not have IV access em during this emergency room visit. Administered Medications: 10:36 Drug: [place] 10 mg-325 mg 1 tabs Route: PO; em 13:12 Follow up: Response: No adverse reaction; Pain is decreased em Outcome: 13:25 Discharge ordered by MD. jmm 13:34 Discharged to home via wheelchair, with family. em 13:34 Condition: good 13:34 Discharge instructions given to patient, Instructed on discharge instructions, follow up and referral plans. medication usage, Demonstrated understanding of instructions, follow-up care, medications, Prescriptions given X 2. 13:47 Patient left the ED. hj Signatures: Dispatcher [employer] EDMS Robert Saunders PA PA jmm Rivera, Mary mr HillFernando LVN LVN em Maddy Lopez, RN RN Leonidas Mascorro RN RN taiwo
[2018-08-28 14:08] VITALS: TEMP 97.9
[2018-08-28 14:10] VITALS: BP 154/83; O2SAT 99
== END 2018-08-28 13:47 | disposition home or self-care (01) ==
LOC: ER 09:57
DX: S00.90XA Unspecified superficial injury of unspecified part of head, initial encounter (principal); S43.491A Other sprain of right shoulder joint, initial encounter; S63.8X1A Sprain of other part of right wrist and hand, initial encounter; S80.01XA Contusion of right knee, initial encounter; W19.XXXA Unspecified fall, initial encounter; Y93.H2 Activity, gardening and landscaping; Y92.9 Unspecified place or not applicable; Z88.8 Allergy status to other drugs, medicaments and biological substances; I10 Essential (primary) hypertension
CPT/HCPCS: 70450; 70486; 71045; 72125; 76377; 99283

== ENCOUNTER 2018-11-09 01:21 | Emergency (ER) | payer OTHER ==
--- OUTSIDE RECORDS SUMMARY | 2018-11-09 01:23 | XMS REPORT ---
[...] End Status Dosage System Date Date Culturelle [facility] 78653295609 - Orally Active not defined Nystatin [facility] 66998639001 979733 UNIT/GM Active 1 application Externally to affected Twice a day area Simvastatin [facility] 65048277449 20 MG Orally Active 1 tablet in Once a day the evening Clotrimazole [facility] 16113415190 1 % Externally Active 1 application Twice a day to affected area Trazodone HCl [facility] 15003515122 100 MG Orally Active 1 tablet at Once a day bedtime Zestoretic [facility] 22859301572 10-12.5 MG Active 1 tablet Orally Twice a day Protonix [facility] 66868449948 40 MG Orally Active 1 tablet Twice a day Estrace [facility] 40704810152 0.1 MG/GM Active as directed Vaginal twice weekly Neurontin [facility] 51773102032 300 MG Orally Active 1 capsule Three times a before day bedtime Citalopram [facility] 75382587890 40 MG Orally Active 1 tablet Hydrobromide Once a day Creon [facility] 88878772885 44227-37709 Active 1 cap UNIT Orally three times a day Results No Known Results Summary Purpose [employer]ClinicalWorks Submission
--- OUTSIDE RECORDS SUMMARY | 2018-11-09 01:23 | XMS REPORT ---
[...] Medications Results No Known Results Summary Purpose [employer] Submission
--- OUTSIDE RECORDS SUMMARY | 2018-11-09 01:23 | XMS REPORT ---
[...] End Status Dosage System Date Date Citalopram [facility] 53855701102 40 MG Orally Active 0.5 tablet Hydrobromide Once a day Simvastatin ND 59868890346 20 MG Orally Active 1 tablet in Once a day the evening Clotrimazole [facility] 88454891934 1 % Externally Active 1 application Twice a day to affected area Nystatin [facility] 99689598611 346704 UNIT/GM Active 1 application Externally to affected Twice a day area Protonix [facility] 04756387033 40 MG Orally Active 1 tablet Twice a day Creon [facility] 28734724277 47460-50372 Active 1 cap UNIT Orally three times a day Trazodone HCl ND 73625033939 100 MG Orally August 27, Active 1Take 1/2 tab Once a day 2018 QHS x 1 week then 1 tab QHS Neurontin [facility] 76496581296 300 MG Orally Active 1 capsule Three times a before day bedtime Estrace [facility] 33951360794 0.1 MG/GM September 09, Active as directed Vaginal twice 2018 weekly Culturelle [facility] 80958966500 - Orally Active not defined Zestoretic [facility] 56973755729 10-12.5 MG Active 1 tablet Orally Once a day Results No Known Results Summary Purpose [employer]Works Submission
--- OUTSIDE RECORDS SUMMARY | 2018-11-09 01:23 | XMS REPORT ---
[...] Unit Abnormality Flag URINALYSIS AUTO W/O SCOPE (53012) ----MARY 1+ [id number] ----NIT neg [id number] ----PROTEIN neg [id number] ----pH 5.0 20170930 ----BLO trace [id number] ----GLUCOSE neg [id number] ----BILIRUBIN neg [id number] ----KETONES neg [id number] ----SPECIFIC GRAVITY >=1.030 [id number] Summary Purpose eClinicalWorks Submission
--- OUTSIDE RECORDS SUMMARY | 2018-11-09 01:24 | XMS REPORT ---
[...] Medications Results No Known Results Summary Purpose [employer] Submission
--- OUTSIDE RECORDS SUMMARY | 2018-11-09 01:24 | XMS REPORT ---
:1945 Author Organization eClinicalWorks Care Team Providers Name Role Phone [facility] Provider Role Unavailable Allergies, Adverse Reactions, Alerts Substance Reaction Event Type N.K.D.A. Info Not Available Non Drug Allergy Problems Problem Type Condition Code Onset Dates Condition Status Assessment Non compliance w medication Z91.14 Active regimen Assessment Nonalcoholic fatty liver disease K76.0 Active Assessment Chronic GERD K21.9 Active Assessment Hyperlipidemia, mixed E78.2 Active Assessment Chronic pancreatitis K86.1 Active Assessment Mixed stress and urge urinary N39.46 Active incontinence Problem Mixed stress and urge urinary N39.46 Active incontinence Assessment Insomnia, unspecified type G47.00 Active Problem Ulcer of esophagus without K22.10 Active bleeding Assessment Depression with anxiety F41.8 Active Problem Esophageal stenosis K22.2 Active Problem Benign essential hypertension I10 Active Problem Hyperlipidemia, mixed E78.2 Active Problem Chronic GERD K21.9 Active Problem Vitamin D deficiency E55.9 Active Assessment Strain of unspecified muscle, S66.911A Active fascia and tendon at wrist and hand level, right hand, initial encounter Assessment Unspecified sprain of right wrist, S63.501A Active initial encounter Problem Insomnia, unspecified type G47.00 Active Assessment Benign essential hypertension I10 Active Problem Depression with anxiety F41.8 Active Problem Kidney stone N20.0 Active Problem Chronic pancreatitis K86.1 Active Problem Hiatal hernia K44.9 Active Assessment Superficial head injury, initial S00.90XA Active encounter Assessment Fall involving sidewalk curb, W10.1XXA Active initial encounter Assessment Strain of right shoulder, initial S46.911A Active encounter Assessment Contusion of right knee, initial S80.01XA Active encounter Problem Chronic gastritis without K29.50 Active bleeding, unspecified gastritis type Problem Duodenitis K29.80 Active Problem Nonalcoholic fatty liver disease K76.0 Active Medications Medication Code Code Instructions Start End Status Dosage System Date Date Protonix [facility] 16361296160 40 MG Orally Active 1 tablet Twice a day Citalopram [facility] 22505472902 40 MG Orally Active 1 tablet Hydrobromide Once a day Zestoretic [facility] 72630817273 20-25 MG Orally Active 1 tablet Once a day Clotrimazole [facility] 12775780924 1 % Externally Active 1 application Twice a day to affected area Culturelle [facility] 09633076259 - Orally Active not defined Simvastatin [facility] 04763315960 20 MG Orally Active 1 tablet in Once a day the evening Metoprolol [facility] 64962179744 50 MG Orally Active 1 tablet with Tartrate Twice a day food Neurontin [facility] 26476017126 300 MG Orally Active 1 capsule Twice a day before bedtime Estrace [facility] 87563031153 0.1 MG/GM Active as directed Vaginal twice weekly ProAir HFA [facility] 74264447659 108 (90 Base) Apr 25, Active 2 puffs as MCG/ACT 2019 needed Inhalation every 6 hrs PRN COugh, Wheezing or shortness of breath Trazodone HCl [facility] 62818314286 100 MG Orally Active 1 tablet at Once a day bedtime Creon [facility] 97012736249 81410-90286 Active 1 cap UNIT Orally three times a day Clonidine HCl [facility] 15106794146 0.1 MG Orally Active 1 tablet at Once a day bedtime Results No Known Results Summary Purpose eClinicalWorks Submission
--- OUTSIDE RECORDS SUMMARY | 2018-11-09 01:24 | XMS REPORT ---
[...] End Status Dosage System Date Date Zestoretic [facility] 60973466198 20-25 MG Mar 09, Active 1 tablet Orally Once a 2018 day Estrace [facility] 36158512690 0.1 MG/GM Active as directed Vaginal twice weekly Trazodone HCl [facility] 85199733762 100 MG Orally Active 1 tablet at Once a day bedtime Citalopram [facility] 69451566257 40 MG Orally Active 1 tablet Hydrobromide Once a day Zestoretic [facility] 20831723432 10-12.5 MG Inactive 1 tablet Orally Twice a day Nystatin [facility] 60674679963 013927 UNIT/GM Active 1 application Externally to affected Twice a day area Clotrimazole [facility] 31742365507 1 % Externally Active 1 application Twice a day to affected area Protonix [facility] 98109136845 40 MG Orally Active 1 tablet Twice a day Simvastatin [facility] 84947652659 20 MG Orally Active 1 tablet in Once a day the evening Neurontin [facility] 84424366772 300 MG Orally Inactive 1 capsule Three times a before day bedtime Culturelle [facility] 07731711533 - Orally Active not defined Creon [facility] 78984125257 54928-49111 Active 1 cap UNIT Orally three times a day Results No Known Results Summary Purpose eClinicalWorks Submission
--- OUTSIDE RECORDS SUMMARY | 2018-11-09 01:24 | XMS REPORT ---
[...] Medications Results No Known Results Summary Purpose DipityinicalSonavation Submission
--- OUTSIDE RECORDS SUMMARY | 2018-11-09 01:24 | XMS REPORT ---
[...] Status Dosage System Date Date ProAir HFA [facility] 85150404156 108 (90 Base) Apr 25, Active 2 puffs as MCG/ACT 2019 needed Inhalation every 6 hrs PRN COugh, Wheezing or shortness of breath Culturelle [facility] 17016981304 - Orally Active not defined Creon [facility] 99747383212 50089-49526 Active 1 cap UNIT Orally three times a day Citalopram [facility] 32514283154 40 MG Orally Active 1 tablet Hydrobromide Once a day Clotrimazole [facility] 14176047916 1 % Externally Active 1 application Twice a day to affected area Neurontin [facility] 04872059155 300 MG Orally Active 1 capsule Twice a day before bedtime Simvastatin [facility] 71654181819 20 MG Orally Active 1 tablet in Once a day the evening Clonidine HCl [facility] 11656719542 0.1 MG Orally Active 1 tablet at Once a day bedtime Metoprolol [facility] 06112446054 50 MG Orally Active 1 tablet with Tartrate Twice a day food Trazodone HCl [facility] 51710362148 100 MG Orally Active 1 tablet at Once a day bedtime Protonix [facility] 00233895791 40 MG Orally Active 1 tablet Twice a day Estrace [facility] 44822215112 0.1 MG/GM Active as directed Vaginal twice weekly Nystatin [facility] 71682711332 658288 UNIT/GM Active 1 application Externally to affected Twice a day area Zestoretic [facility] 44911857510 20-25 MG Orally Active 1 tablet Once a day Results No Known Results Summary Purpose eClinicalWorks Submission
--- OUTSIDE RECORDS SUMMARY | 2018-11-09 01:24 | XMS REPORT ---
[...] Status Dosage System Date Date Simvastatin ND 56739475980 20 MG Orally Active 1 tablet in Once a day the evening Clotrimazole [facility] 55495331824 1 % Externally Active 1 application Twice a day to affected area Culturelle [facility] 06030564529 - Orally Active not defined Creon ND 00238535599 24289-44775 Active 1 cap UNIT Orally three times a day Citalopram [facility] 66806619152 40 MG Orally Active 1 tablet Hydrobromide Once a day Zestoretic ND 02724409784 20-25 MG Orally Mar 09, Active 1 tablet Once a day 2018 Protonix ND 06816025492 40 MG Orally Active 1 tablet Twice a day Azithromycin ND 85326844167 250 MG Orally Apr 25, Apr Active 2 tablets on Once a day 2018, the first 2019 day, then 1 tablet daily for 4 days ProAir HFA [facility] 24629893986 108 (90 Base) Apr 25, Active 2 puffs as MCG/ACT 2018 needed Inhalation every 6 hrs PRN COugh, Wheezing or shortness of breath Estrace [facility] 97907298200 0.1 MG/GM Active as directed Vaginal twice weekly Trazodone HCl [facility] 39048493120 100 MG Orally Active 1 tablet at Once a day bedtime Nystatin [facility] 07465908676 776325 UNIT/GM Active 1 application Externally to affected Twice a day area Results Name Result Date Reference Range Unit Abnormality Flag FLU TEST ----A NEG 20180425 ----B NEG [id number] STREP A RAPID ----Result NEG [id number] Summary Purpose eClinicalWorks Submission
--- OUTSIDE RECORDS SUMMARY | 2018-11-09 01:24 | XMS REPORT ---
:1945 Author Organization eClinicalWorks Care Team Providers Name Role Phone Powell, [facility] Provider Role Unavailable Allergies, Adverse Reactions, Alerts Substance Reaction Event Type N.K.D.A. Info Not Available Non Drug Allergy Problems Problem Type Condition Code Onset Dates Condition Status Assessment History of fall within past 90 days Z91.81 Active Assessment Non compliance w medication regimen Z91.14 Active Assessment Nonalcoholic fatty liver disease K76.0 Active Problem Ulcer of esophagus without bleeding K22.10 Active Assessment Chronic GERD K21.9 Active Problem Esophageal stenosis K22.2 Active Assessment Hyperlipidemia, mixed E78.2 Active Problem Hyperlipidemia, mixed E78.2 Active Problem Kidney stone N20.0 Active Problem Benign essential hypertension I10 Active Problem Insomnia, unspecified type G47.00 Active Problem Chronic GERD K21.9 Active Assessment Peripheral polyneuropathy G62.9 Active Assessment Mixed stress and urge urinary N39.46 Active incontinence Problem Peripheral polyneuropathy G62.9 Active Assessment Chronic pancreatitis K86.1 Active Problem Hiatal hernia K44.9 Active Problem Depression with anxiety F41.8 Active Problem Vitamin D deficiency E55.9 Active Problem Chronic pancreatitis K86.1 Active Assessment Benign essential hypertension I10 Active Assessment Insomnia, unspecified type G47.00 Active Assessment Depression with anxiety F41.8 Active Problem Duodenitis K29.80 Active Problem Mixed stress and urge urinary N39.46 Active incontinence Problem Nonalcoholic fatty liver disease K76.0 Active Problem Chronic gastritis without bleeding, K29.50 Active unspecified gastritis type Medications Medication Code Code Instructions Start End Status Dosage System Date Date Neurontin [facility] 71809982551 300 MG Orally Active 1 capsule Once a day before bedtime Culturelle [facility] 34215472933 - Orally Active not defined Protonix [facility] 66760004537 40 MG Orally Active 1 tablet Twice a day Metoprolol ND 44024691601 50 MG Orally Active 1 tablet with Tartrate Twice a day food Estrace [facility] 54947518094 0.1 MG/GM Active as directed Vaginal twice weekly Citalopram [facility] 60705714815 40 MG Orally Active 1 tablet Hydrobromide Once a day Trazodone HCl ND 57874045913 100 MG Orally Active 1 tablet at Once a day bedtime Creon [facility] 12382195820 93011-34554 Active 1 cap UNIT Orally three times a day Clonidine HCl ND 37281935283 0.1 MG Orally Active 1 tablet at Once a day bedtime Zestoretic [facility] 03985232994 20-25 MG Orally Active 1 tablet Once a day ProAir HFA [facility] 32888797076 108 (90 Base) Apr 25, Active 2 puffs as MCG/ACT 2019 needed Inhalation every 6 hrs PRN COugh, Wheezing or shortness of breath Clotrimazole [facility] 14262643483 1 % Externally Active 1 application Twice a day to affected area Simvastatin ND 61501392568 20 MG Orally Active 1 tablet in Once a day the evening Results No Known Results Summary Purpose eClinicalWorks Submission
--- OUTSIDE RECORDS SUMMARY | 2018-11-09 01:24 | XMS REPORT ---
[...] Medications Results No Known Results Summary Purpose FirethorninicalYottaa Submission
[2018-11-09] MEDS ORDERED: NA CHLORIDE 0.9% 1,000 ML ONE (01:37)
[2018-11-09] MEDS ORDERED: ONDANSETRON 4 MG/2 ML VIAL ONE ×2 (01:37→06:14)
[2018-11-09] MEDS ORDERED: MORPHINE 4 MG/ML SYR ONE ×3 (02:01→06:14)
[2018-11-09 02:06] LABS: Absolute Lymphocytes (CBC) 2.1 K/uL (0.7-4.9); Basophils % 0.7 % (0-1.3); Hematocrit 35.8 % (36.0-45.0); Lymphocytes % 25.7 % (15.3-44.8); MPV 8.3 fL (7.6-11.3)
[2018-11-09 02:31] LABS: ALT/SGPT 22 U/L (12-78); AST/SGOT 14 U/L (15-37); Albumin 3.3 g/dL (3.4-5.0); Alkaline Phosphatase 94 U/L (45-117); BUN Blood Urea Nitrogen 14 mg/dL (7-18); Bicarbonate 25 mmol/L (21-32); Bilirubin Direct < 0.1 mg/dL (0-0.2); Bilirubin Total 0.2 mg/dL (0.2-1.0); Glucose Level 157 mg/dL (74-106); Protein, Total 7.8 g/dL (6.4-8.2); Sodium Level 141 mmol/L (136-145)
[2018-11-09 02:33] LABS: Lipase > 30000 U/L (73-393)
[2018-11-09 02:41] LABS: Urine Blood 1+ (NEG); Urine Glucose NEGATIVE (NEG); Urine Protein 1+ (NEG); Urine pH 5.5 (5.0-7.0)
--- NOTE | 2018-11-09 05:54 | ER ---
Nurse's Notes [facility] Name: Isadora Bettencourt Age: 72 yrs Sex: Female : 1945 Arrival Date: 11/09/2018 Time: 01:24 Bed 20 Private MD: Diagnosis: Acute pancreatitis, unspecified;Pneumobilia Presentation: 11/09 01:33 Presenting complaint: Patient states: N/V abd pain since 0100. Transition of care: ak1 patient was not received from another setting of care. Onset of symptoms was November 09, 2018. Risk Assessment: Do you want to hurt yourself or someone else? Patient reports no desire to harm self or others. Initial Sepsis Screen: Does the patient meet any 2 criteria? No. Patient's initial sepsis screen is negative. Does the patient have a suspected source of infection? No. Patient's initial sepsis screen is negative. Care prior to arrival: None. 01:33 Acuity: FRANDY 3 ak1 01:33 Method Of Arrival: Wheelchair ak1 Triage Assessment: 01:33 General: Appears in no apparent distress. Behavior is calm, cooperative. GI: Reports ak1 upper abdominal pain, nausea, vomiting. 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 - Social history:: Smoking status: Patient/guardian denies using tobacco. - Ebola Screening: : No symptoms or risks identified at this time. Screenin:34 Abuse screen: Denies threats or abuse. Denies injuries from another. Nutritional cc3 screening: No deficits noted. Tuberculosis screening: No symptoms or risk factors identified. Fall Risk Ambulatory Aid- None/Bed Rest/Nurse Assist (0 pts). Gait- Normal/Bed Rest/Wheelchair (0 pts) Mental Status- Oriented to own ability (0 pts). Assessment: 01:34 General: Appears in no apparent distress. uncomfortable, Behavior is calm, cooperative, cc3 appropriate for age. Pain: Complains of pain in left lower quadrant and right lower quadrant Pain currently is 10 out of 10 on a pain scale. Quality of pain is described as aching. Neuro: Level of Consciousness is awake, alert, obeys commands, Oriented to person, place, time, situation, Appropriate for age. Cardiovascular: Denies chest pain, Capillary refill < 3 seconds Patient's skin is warm and dry. Respiratory: Airway is patent Respiratory effort is even, unlabored. GI: Bowel sounds present X 4 quads. Abd is soft X 4 quads Abdomen is tender to palpation X 4 quads. : No signs and/or symptoms were reported regarding the genitourinary system. EENT: No signs and/or symptoms were reported regarding the EENT system. Derm: Skin is intact, is healthy with good turgor, Skin is pink, warm \T\ dry. normal. Musculoskeletal: Circulation, motion, and sensation intact. Range of motion: intact in all extremities. 02:35 Reassessment: Patient appears in no apparent distress at this time. Patient and/or cc3 family updated on plan of care and expected duration. Pain level reassessed. Patient is alert, oriented x 3, equal unlabored respirations, skin warm/dry/pink. Patient taken to CT scan department by bed by the crime scene evidence technician. 03:01 Reassessment: Patient appears in no apparent distress at this time. Patient and/or cc3 family updated on plan of care and expected duration. Pain level reassessed. Patient is alert, oriented x 3, equal unlabored respirations, skin warm/dry/pink. Patient came back from CT scan department, awaiting result. Patient states feeling better. Patient states symptoms have improved. 04:42 Reassessment: Patient appears in no apparent distress at this time. Patient and/or cc3 family updated on plan of care and expected duration. Pain level reassessed. Patient is alert, oriented x 3, equal unlabored respirations, skin warm/dry/pink. 05:20 Reassessment: Patient appears in no apparent distress at this time. Patient and/or cc3 family updated on plan of care and expected duration. Pain level reassessed. Patient is alert, oriented x 3, equal unlabored respirations, skin warm/dry/pink. 06:00 Reassessment: Patient appears in no apparent distress at this time. Patient and/or cc3 family updated on plan of care and expected duration. Pain level reassessed. Patient is alert, oriented x 3, equal unlabored respirations, skin warm/dry/pink. Patient for transfer to [facility] as a case of acute pancreatitis, report called and handed over to SHARMAINE Andrade. ED material control clerkrhonda Shelton to call for ground EMS for patient transport. Patient complains of abdominal pain again, Dr. Arroyo informed. 06:50 Reassessment: ED material control clerk Cat said EMS will take a while for patient transport because cc3 they'll be coming after their shift change. 07:00 Reassessment: Patient appears in no apparent distress at this time. No changes from jl7 previously documented assessment. Patient and/or family updated on plan of care and expected duration. Pain level reassessed. Patient is alert, oriented x 3, equal unlabored respirations, skin warm/dry/pink. 08:00 Reassessment: Patient appears in no apparent distress at this time. Patient and/or jl7 family updated on plan of care and expected duration. Pain level reassessed. Patient is alert, oriented x 3, equal unlabored respirations, skin warm/dry/pink. 08:37 Reassessment: EMS here to transport pt. tawanna Vital Signs: 01:30 Pulse 96; Resp 18; Temp 98.4; Pulse Ox 97% on R/A; Weight 81.65 kg (R); Height 5 ft. 1 ak1 in. (154.94 cm) (R); Pain 10/10; 01:39 BP 213 / 106; ak1 02:14 BP 198 / 121; Pulse 75; Resp 19 S; Pulse Ox 96% on R/A; cc3 03:18 BP 101 / 46; Pulse 77; Resp 17 S; Pulse Ox 96% on R/A; Pain 7/10; cc3 03:38 BP 174 / 82; Pulse 79; Resp 18 S; Pulse Ox 95% on R/A; cc3 04:38 BP 182 / 80; Pulse 77; Resp 17 S; Pulse Ox 95% on R/A; cc3 05:30 BP 170 / 82; Pulse 73; Resp 17 S; Pulse Ox 97% on R/A; cc3 06:27 BP 119 / 71; Pulse 77; Resp 17 S; Pulse Ox 95% on R/A; cc3 08:37 BP 158 / 94; Pulse 85; Resp 16 S; Pulse Ox 95% on R/A; jl7 01:30 Body Mass Index 34.01 (81.65 kg, 154.94 cm) ak1 ED Course: 01:24 Patient arrived in ED. ds1 01:30 Arm band placed on Patient placed in an exam room, on a stretcher, on pulse oximetry, ak1 Patient notified of wait time. 01:34 Elaine Zamudio is Primary Nurse. cc3 01:34 Triage completed. ak1 01:34 Patient has correct armband on for positive identification. Placed in gown. Bed in low cc3 position. Call light in reach. Side rails up X 1. Pulse ox on. NIBP on. 01:37 Uri Arroyo MD is Attending Physician. tw4 01:45 Inserted saline lock: 20 gauge in right forearm, using aseptic technique. Blood cc3 collected. 02:16 Radiology exam delayed due to lab results not completed at this time. (BUN/Creatinine). kw1 03:38 CT Abd/Pelvis - IV Contrast Only In Process Unspecified. EDMS 07:00 Report given to SHARMAINE Clifford. cc3 08:36 Darrin Rodriguez RN is Primary Nurse. jl7 08:39 Patient transferred, IV remains in place. intact, No redness/swelling at site. jl7 08:39 No provider procedures requiring assistance completed. jl7 Administered Medications: 01:45 Drug: Zofran 4 mg Route: IVP; Site: right forearm; cc3 02:00 Follow up: Response: No adverse reaction; Nausea is decreased cc3 01:45 Drug: NS 0.9% 1000 ml Route: IV; Rate: 1 bolus; Site: right forearm; cc3 03:00 Follow up: Response: No adverse reaction; IV Status: Completed infusion; IV Intake: cc3 1000ml 02:00 Drug: morphine 4 mg {Note: RASS 0.} Route: IVP; Site: right forearm; cc3 03:00 Follow up: Response: No adverse reaction; Pain is decreased; RASS: Alert and Calm (0) cc3 03:50 Drug: morphine 4 mg {Note: RASS 0.} Route: IVP; Site: right forearm; cc3 04:30 Follow up: Response: No adverse reaction; Pain is decreased; RASS: Alert and Calm (0) cc3 06:15 Drug: morphine 4 mg {Note: RASS 0.} Route: IVP; Site: right forearm; cc3 06:53 Follow up: Response: No adverse reaction; Pain is decreased; RASS: Alert and Calm (0) cc3 06:20 Drug: Zofran 4 mg Route: IVP; Site: right forearm; cc3 06:53 Follow up: Response: No adverse reaction; Nausea is decreased cc3 Intake: 03:00 IV: 1000ml; Total: 1000ml. cc3 Outcome: 05:50 ER care complete, transfer ordered by . tw4 08:38 Transferred by ground EMS to [facility], [facility], Transfer form completed. jl7 08:38 Condition: stable 08:38 Discharge instructions given to patient, Instructed on discharge instructions, Demonstrated understanding of instructions. 08:40 Patient left the ED. jl7 Signatures: Dispatcher [employer] [facility] Michaelle Hamilton dsKerri Saravia, RN RN ak1 Darrin Rodriguez RN RN jl7 Minnie Soto kw1 Uri Arroyo MD MD tw4 Elaine Zamudio cc3 Corrections: (The following items were deleted from the chart) 03:59 03:18 BP 101 / 46; Pulse 77bpm; Resp 17bpm; Spontaneous; Pulse Ox 96% RA; cc3 cc3 06:53 06:50 Reassessment: ED material control clerkrhonda Shelton said EMS will take a while because they'll be cc3 waiting for shift change. cc3
--- NOTE | 2018-11-09 05:55 | EDPHYS ---
Physician Documentation [facility] Name: Isadora Bettencourt Age: 72 yrs Sex: Female : 1945 Arrival Date: 11/09/2018 Time: 01:24 Bed 20 Private MD: ED Physician Uri Arroyo HPI: 11/09 02:21 This 72 yrs old Female presents to ER via Wheelchair with complaints of tw4 Abdominal Pain, Vomiting. 02:21 The patient presents to the emergency department with nausea, vomiting, 3 times since tw4 the onset of symptoms. Onset: The symptoms/episode began/occurred today. Possible causes: unknown. The symptoms are aggravated by nothing. The symptoms are alleviated by nothing. Associated signs and symptoms: The patient has no apparent associated signs or symptoms. The patient has not experienced similar symptoms in the past. 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 - Social history:: Smoking status: Patient/guardian denies using tobacco. - Ebola Screening: : No symptoms or risks identified at this time. ROS: 02:21 Constitutional: Negative for fever, chills, and weight loss, Eyes: Negative for injury, tw4 pain, redness, and discharge, Cardiovascular: Negative for chest pain, palpitations, and edema, Respiratory: Negative for shortness of breath, cough, wheezing, and pleuritic chest pain. 02:21 Back: Negative for injury and pain, MS/Extremity: Negative for injury and deformity, Skin: Negative for injury, rash, and discoloration. 02:21 Abdomen/GI: Positive for abdominal pain, nausea and vomiting, nausea, vomiting, and diarrhea. Exam: 02:31 Constitutional: This is a well developed, well nourished patient who is awake, alert, tw4 and in no acute distress. Eyes: Pupils equal round and reactive to light, extra-ocular motions intact. Lids and lashes normal. Conjunctiva and sclera are non-icteric and not injected. Cornea within normal limits. Periorbital areas with no swelling, redness, or edema. Chest/axilla: Normal chest wall appearance and motion. Nontender with no deformity. No lesions are appreciated. Cardiovascular: Regular rate and rhythm with a normal S1 and S2. No gallops, murmurs, or rubs. Normal PMI, no JVD. No pulse deficits. Respiratory: Lungs have equal breath sounds bilaterally, clear to auscultation and percussion. No rales, rhonchi or wheezes noted. No increased work of breathing, no retractions or nasal flaring. 02:31 MS/ Extremity: Pulses equal, no cyanosis. Neurovascular intact. Full, normal range of motion. Neuro: Awake and alert, GCS 15, oriented to person, place, time, and situation. Cranial nerves II-XII grossly intact. Motor strength 5/5 in all extremities. Sensory grossly intact. Cerebellar exam normal. Normal gait. 02:31 Abdomen/GI: Inspection: distension, that is moderate, Bowel sounds: diminished, in all quadrants, Palpation: moderate abdominal tenderness, in the right lower quadrant and left lower quadrant. Vital Signs: 01:30 Pulse 96; Resp 18; Temp 98.4; Pulse Ox 97% on R/A; Weight 81.65 kg (R); Height 5 ft. 1 ak1 in. (154.94 cm) (R); Pain 10/10; 01:39 BP 213 / 106; ak1 02:14 BP 198 / 121; Pulse 75; Resp 19 S; Pulse Ox 96% on R/A; cc3 03:18 BP 101 / 46; Pulse 77; Resp 17 S; Pulse Ox 96% on R/A; Pain 7/10; cc3 03:38 BP 174 / 82; Pulse 79; Resp 18 S; Pulse Ox 95% on R/A; cc3 04:38 BP 182 / 80; Pulse 77; Resp 17 S; Pulse Ox 95% on R/A; cc3 05:30 BP 170 / 82; Pulse 73; Resp 17 S; Pulse Ox 97% on R/A; cc3 06:27 BP 119 / 71; Pulse 77; Resp 17 S; Pulse Ox 95% on R/A; cc3 08:37 BP 158 / 94; Pulse 85; Resp 16 S; Pulse Ox 95% on R/A; jl7 01:30 Body Mass Index 34.01 (81.65 kg, 154.94 cm) ak1 MDM: 01:37 Patient medically screened. tw4 06:44 Differential diagnosis: Nonspecific abd pain, gastritis, cholecystitis, pancreatitis. tw4 Data reviewed: vital signs, nurses notes. Data interpreted: Pulse oximetry: Interpretation: normal. Counseling: I had a detailed discussion with the patient and/or guardian regarding: the historical points, exam findings, and any diagnostic results supporting the discharge/admit diagnosis, lab results. Medication response: morphine partially relieved the patient's pain. Response to treatment: the patient's symptoms have markedly improved after treatment, and as a result, I will admit patient. 11/09 01:30 Order name: Basic Metabolic Panel [facility] 11/09 01:30 Order name: CBC with Diff [facility] 11/09 01:30 Order name: Creatinine for Radiology [facility] 11/09 01:30 Order name: Hepatic Function [facility] 11/09 01:30 Order name: Lipase [facility] 11/09 02:11 Order name: CBC with Automated Diff; Complete Time: 03:36 [facility] 11/09 03:36 Interpretation: Normal except: HGB 11.5; MCV 79.4; HCT 35.8; MCH 25.6; RDW 15.9. tw4 11/09 01:40 Order name: CT Abd/Pelvis - IV Contrast Only [facility] 11/09 02:24 Order name: Urine Dipstick--Ancillary (enter results) [facility] 11/09 02:32 Order name: Basic Metabolic Panel [facility] 11/09 02:32 Order name: Liver (Hepatic) Function [facility] 11/09 02:32 Order name: Creatinine (Radiology Only) [facility] 11/09 02:34 Order name: Lipase [facility] 11/09 02:43 Order name: Urine Dipstick-Ancillary; Complete Time: 03:36 [facility] 11/09 01:30 Order name: IV Saline Lock; Complete Time: 01:52 [facility] 11/09 01:30 Order name: Labs collected and sent; Complete Time: 01:52 [facility] 11/09 01:30 Order name: Urine Dipstick-Ancillary (obtain specimen); Complete Time: 02:30 [facility] Administered Medications: 01:45 Drug: Zofran 4 mg Route: IVP; Site: right forearm; cc3 02:00 Follow up: Response: No adverse reaction; Nausea is decreased cc3 01:45 Drug: NS 0.9% 1000 ml Route: IV; Rate: 1 bolus; Site: right forearm; cc3 03:00 Follow up: Response: No adverse reaction; IV Status: Completed infusion; IV Intake: cc3 1000ml 02:00 Drug: morphine 4 mg {Note: RASS 0.} Route: IVP; Site: right forearm; cc3 03:00 Follow up: Response: No adverse reaction; Pain is decreased; RASS: Alert and Calm (0) cc3 03:50 Drug: morphine 4 mg {Note: RASS 0.} Route: IVP; Site: right forearm; cc3 04:30 Follow up: Response: No adverse reaction; Pain is decreased; RASS: Alert and Calm (0) cc3 06:15 Drug: morphine 4 mg {Note: RASS 0.} Route: IVP; Site: right forearm; cc3 06:53 Follow up: Response: No adverse reaction; Pain is decreased; RASS: Alert and Calm (0) cc3 06:20 Drug: Zofran 4 mg Route: IVP; Site: right forearm; cc3 06:53 Follow up: Response: No adverse reaction; Nausea is decreased cc3 Disposition: 11/09/18 05:50 Transfer ordered to [facility]. Diagnosis are Acute pancreatitis, unspecified, Pneumobilia. - Reason for transfer: Higher level of care. - Accepting physician is Dr Henning. - Condition is Stable. - Problem is an ongoing problem. - Symptoms have worsened. Signatures: Dispatcher [employer] EDKerri Prescott RN RN ak1 Darrin Rodriguez RN RN jl7 Uri Arroyo MD MD tw4 Elaine Zamudio cc3 Corrections: (The following items were deleted from the chart) 08:40 05:50 11/09/2018 05:50 Transfer ordered to [facility]. Diagnosis is jl7 Acute pancreatitis, unspecified; Pneumobilia. Reason for transfer: Higher level of care. Accepting physician is Dr Henning. Condition is Stable. Problem is an ongoing problem. Symptoms have worsened. tw4
[2018-11-09 08:57] VITALS: TEMP 98.4
[2018-11-09 09:05] VITALS: O2SAT 95
[2018-11-09 09:06] VITALS: BP 158/94
--- NOTE | 2018-11-09 09:58 | RAD REPORT ---
EXAM DESCRIPTION: CT - Abdomen Pelvis W Contrast - 11/09/2018 4:14 am CLINICAL HISTORY: ABD PAIN COMPARISON: October 05, 2017. TECHNIQUE: CT ABDOMEN PELVIS WITH IV CONTRAST on 11/09/2018 1:40 AM CDT This exam was performed according to our departmental dose-optimization program, which includes autom ated exposure control, adjustment of the mA and/or kV according to patient size and/or use of iterati ve reconstruction technique. FINDINGS: Lower lungs are clear. Abdomen: The liver is normal in appearance. There is no biliary dilatation. There is a moderate hiata l hernia. There is mild to moderate pneumobilia. There is inflammation surrounding the pancreatic hea d. There is minimal fluid adjacent to the pancreatic tail. The adrenal glands are normal. Kidneys are mildly atrophic. There is a large lower pole left renal calculus measuring 1.6 cm. Abdominal aorta is normal in course and caliber without aneurysm. There is no free air. There is no r etroperitoneal adenopathy. Pelvis: There is severe distal colonic diverticulosis. Urinary bladder is unremarkable. There is no f ree fluid. Hysterectomy was performed. Appendix is not clearly seen. Skeleton: There are no acute osseous findings. No suspicious bony lesions. IMPRESSION: Acute pancreatitis. Electronically signed by: Roosevelt Collins MD 11/09/2018 3:36 AM CDT Due to temporary technical issues with the PACS/Fluency reporting system, reports are being signed by the in house radiologist as a courtesy to ensure prompt reporting. The interpreting radiologist is f virginiely responsible for the content of the report.
== END 2018-11-09 08:40 | disposition short-term general hospital (02) ==
LOC: ER 01:21
DX: K85.90 Acute pancreatitis without necrosis or infection, unspecified (principal); K83.8 Other specified diseases of biliary tract; I10 Essential (primary) hypertension; E78.5 Hyperlipidemia, unspecified; F41.9 Anxiety disorder, unspecified; Z88.8 Allergy status to other drugs, medicaments and biological substances
CPT/HCPCS: 96361; 85025; 80048; 36415; 80076; 81003; 83690; 74177; 96375; 96374; 99285; Q9967; J7030; J2405 ×2

== ENCOUNTER 2019-01-23 16:00 | Emergency (ER) | payer OTHER ==
--- OUTSIDE RECORDS SUMMARY | 2019-01-23 16:03 | XMS REPORT ---
[...] Start End Status Dosage System Date Date Clonidine HCl ND 06140280368 0.1 MG Orally Active 1 tablet at Once a day bedtime Metoprolol ND 72148368327 50 MG Orally Active 1 tablet with Tartrate Twice a day food Culturelle [facility] 29063872948 - Orally Active not defined Clotrimazole ND 74218551984 1 % Externally Active 1 application Twice a day to affected area Simvastatin ND 46018062885 20 MG Orally Active 1 tablet in Once a day the evening Zestoretic [facility] 23477334440 20-25 MG Orally Active 1 tablet Once a day Protonix [facility] 11246468150 40 MG Orally Active 1 tablet Twice a day Creon [facility] 77184264340 32250-87232 Active 1 cap UNIT Orally three times a day ProAir HFA [facility] 15432452797 108 (90 Base) Apr 25, Active 2 puffs as MCG/ACT 2019 needed Inhalation every 6 hrs PRN COugh, Wheezing or shortness of breath Estrace [facility] 77140275661 0.1 MG/GM Active as directed Vaginal twice weekly Trazodone HCl [facility] 51735041932 100 MG Orally Active 1 tablet at Once a day bedtime Neurontin [facility] 09447654531 300 MG Orally Active 1 capsule Once a day before bedtime Citalopram [facility] 04764044586 40 MG Orally Active 1 tablet Hydrobromide Once a day Results No Known Results Summary Purpose eClinicalWorks Submission
--- OUTSIDE RECORDS SUMMARY | 2019-01-23 16:03 | XMS REPORT ---
:1945 [facility] Address [facility] Dragan Padilla [address] [place] [address] Care Team Providers Name Role Phone GAY QIU Unavailable Unavailable Problems This patient has no known problems. Allergies, Adverse Reactions, Alerts This patient has no known allergies or adverse reactions. Medications This patient has no known medications. Results Test Description Test Time Test Comments Text Results Atomic Results Result Comments PHOSPHORUS 2018-11-11 05:54:00 Test Item Value Reference Range Comments PHOSPHORUS (BEAKER) (test cuts=182) 3.6 mg/dL 2.3-4.7 [id number] 05:54:00 Test Item Value Reference Range Comments MAGNESIUM (BEAKER) (test bxqo=105) 1.8 mg/dL 1.6-2.6 BASIC METABOLIC [id number] 05:54:00 Test Item Value Reference Range Comments SODIUM (BEAKER) (test 137 meq/L 136-145 hlid=007) POTASSIUM (BEAKER) (test 3.8 meq/L 3.5-5.1 whwd=790) CHLORIDE (BEAKER) (test 103 meq/L 98-107 syyo=339) CO2 (BEAKER) (test 28 meq/L 22-29 dfbd=507) BLOOD UREA NITROGEN 10 mg/dL 7-21 (BEAKER) (test ufzr=503) CREATININE (BEAKER) (test 0.75 mg/dL 0.57-1.25 lccc=110) GLUCOSE RANDOM (BEAKER) 113 mg/dL 70-105 (test nzsj=361) CALCIUM (BEAKER) (test 8.4 mg/dL 8.4-10.2 knab=676) EGFR (BEAKER) (test 76 mL/min/1.73 sq m ESTIMATED GFR IS NOT tfyj=7965) ACCURATE CREATININE CLEARANCE IN PREDICTING GLOMERULAR FILTRATION RATE. ESTIMATED GFR IS NOT APPLICABLE FOR DIALYSIS PATIENTS. HEPATIC FUNCTION [id number] 05:54:00 Test Item Value Reference Range Comments TOTAL PROTEIN (BEAKER) (test yxxx=450) 6.7 gm/dL 6.0-8.3 ALBUMIN (BEAKER) (test mmmw=5978) 3.5 g/dL 3.5-5.0 BILIRUBIN TOTAL (BEAKER) (test qjro=862) 0.5 mg/dL 0.2-1.2 BILIRUBIN DIRECT (BEAKER) (test uztm=817) 0.2 mg/dL 0.1-0.5 ALKALINE PHOSPHATASE (BEAKER) (test lbbv=623) 76 U/L 40-150 AST (SGOT) (BEAKER) (test zbxk=855) 17 U/L 5-34 ALT (SGPT) (BEAKER) (test pjvn=637) 12 U/L 6-55 CBC W/PLT COUNT & AUTO [id number] 05:43:00 Test Item Value Reference Range Comments WHITE BLOOD CELL COUNT (BEAKER) (test bzmy=404) 6.6 K/ L 3.5-10.5 RED BLOOD CELL COUNT (BEAKER) (test rfyc=149) 3.63 M/ L 3.93-5.22 HEMOGLOBIN (BEAKER) (test phcj=905) 9.3 GM/DL 11.2-15.7 HEMATOCRIT (BEAKER) (test deyb=309) 31.1 % 34.1-44.9 MEAN CORPUSCULAR VOLUME (BEAKER) (test rxdn=770) 85.7 fL 79.4-94.8 MEAN CORPUSCULAR HEMOGLOBIN (BEAKER) (test 25.6 pg 25.6-32.2 sovz=341) MEAN CORPUSCULAR HEMOGLOBIN CONC (BEAKER) (test 29.9 GM/DL 32.2-35.5 pfbr=288) RED CELL DISTRIBUTION WIDTH (BEAKER) (test 15.4 % 11.7-14.4 zmma=368) PLATELET COUNT (BEAKER) (test vdzx=992) 157 K/CU MM 150-450 MEAN PLATELET VOLUME (BEAKER) (test ekhs=011) 10.5 fL 9.4-12.3 NUCLEATED RED BLOOD CELLS (BEAKER) (test 0 /100 WBC 0-0 qxlt=586) NEUTROPHILS RELATIVE PERCENT (BEAKER) (test 59 % cdwn=993) LYMPHOCYTES RELATIVE PERCENT (BEAKER) (test 26 % jqkb=780) MONOCYTES RELATIVE PERCENT (BEAKER) (test 11 % tvbr=191) EOSINOPHILS RELATIVE PERCENT (BEAKER) (test 3 % wrzq=379) BASOPHILS RELATIVE PERCENT (BEAKER) (test 1 % gmdg=398) NEUTROPHILS ABSOLUTE COUNT (BEAKER) (test 3.91 K/ L 1.56-6.13 jakc=011) LYMPHOCYTES ABSOLUTE COUNT (BEAKER) (test 1.72 K/ L 1.18-3.74 psmn=254) MONOCYTES ABSOLUTE COUNT (BEAKER) (test 0.72 K/ L 0.24-0.36 ynbt=505) EOSINOPHILS ABSOLUTE COUNT (BEAKER) (test 0.22 K/ L 0.04-0.36 shws=510) BASOPHILS ABSOLUTE COUNT (BEAKER) (test 0.04 K/ L 0.01-0.08 bxcj=645) IMMATURE GRANULOCYTES-RELATIVE PERCENT (BEAKER) 0 % 0-1 (test nudi=0887) PROTHROMBIN [id number] 05:42:00 Test Item Value Reference Range Comments PROTIME (BEAKER) (test klae=726) 13.0 seconds 11.9-14.2 INR (BEAKER) (test rxcn=355) 1.0 <=5.9 Effective 08/03/2018: PT Reference Range ChangeNew: 11.9-14.2 Previous: 11.7- 14.7RECOMMENDED COUMADIN/WARFARIN INR THERAPY RANGESSTANDARD DOSE: 2.0-3.0 Includes: PROPHYLAXIS for venous thrombosis, systemic embolization; TREATMENT for venous thrombosis and/or pulmonary embolus.HIGH RISK: Target INR is2.5-3.5 for patients wiht mechanical heart valves.HEMOGLOBIN [id number] 07:50:00 Test Item Value Reference Range Comments HEMOGLOBIN A1C (BEAKER) (test zfpe=443) 7.1 % 4.3-6.1 [id number] 04:53:00 Test Item Value Reference Range Comments PHOSPHORUS (BEAKER) (test zxrp=368) 3.2 mg/dL 2.3-4.7 [id number] 04:53:00 Test Item Value Reference Range Comments MAGNESIUM (BEAKER) (test yzmh=589) 1.8 mg/dL 1.6-2.6 BASIC METABOLIC [id number] 04:53:00 Test Item Value Reference Range Comments SODIUM (BEAKER) (test 139 meq/L 136-145 sgxw=498) POTASSIUM (BEAKER) (test 3.8 meq/L 3.5-5.1 qgru=615) CHLORIDE (BEAKER) (test 106 meq/L 98-107 kdlr=723) CO2 (BEAKER) (test 27 meq/L 22-29 vsmf=275) BLOOD UREA NITROGEN 15 mg/dL 7-21 (BEAKER) (test ovwt=994) CREATININE (BEAKER) (test 0.78 mg/dL 0.57-1.25 kfmg=971) GLUCOSE RANDOM (BEAKER) 149 mg/dL 70-105 (test gblx=978) CALCIUM (BEAKER) (test 8.5 mg/dL 8.4-10.2 wpwo=078) EGFR (BEAKER) (test 73 mL/min/1.73 sq m ESTIMATED GFR IS NOT kgtn=6468) ACCURATE CREATININE CLEARANCE IN PREDICTING GLOMERULAR FILTRATION RATE. ESTIMATED GFR IS NOT APPLICABLE FOR DIALYSIS PATIENTS. HEPATIC FUNCTION [id number] 04:53:00 Test Item Value Reference Range Comments TOTAL PROTEIN (BEAKER) (test fnus=311) 6.9 gm/dL 6.0-8.3 ALBUMIN (BEAKER) (test jlgx=2208) 3.5 g/dL 3.5-5.0 BILIRUBIN TOTAL (BEAKER) (test jyuk=339) 0.7 mg/dL 0.2-1.2 BILIRUBIN DIRECT (BEAKER) (test xoyl=895) 0.2 mg/dL 0.1-0.5 ALKALINE PHOSPHATASE (BEAKER) (test jufs=997) 81 U/L 40-150 AST (SGOT) (BEAKER) (test qrpc=851) 14 U/L 5-34 ALT (SGPT) (BEAKER) (test gagk=578) 12 U/L 6-55 PROTHROMBIN [id number] 04:19:00 Test Item Value Reference Range Comments PROTIME (BEAKER) (test sdmh=160) 14.3 seconds 11.9-14.2 INR (BEAKER) (test dust=919) 1.2 <=5.9 Effective 08/03/2018: PT Reference Range ChangeNew: 11.9-14.2 Previous: 11.7- 14.7RECOMMENDED COUMADIN/WARFARIN INR THERAPY RANGESSTANDARD DOSE: 2.0-3.0 Includes: PROPHYLAXIS for venous thrombosis, systemic embolization; TREATMENT for venous thrombosis and/or pulmonary embolus.HIGH RISK: Target INR is2.5-3.5 for patients wiht mechanical heart valves.CBC W/PLT COUNT & AUTO [id number] 04:14:00 Test Item Value Reference Range Comments WHITE BLOOD CELL COUNT (BEAKER) (test vpck=717) 8.5 K/ L 3.5-10.5 RED BLOOD CELL COUNT (BEAKER) (test voyz=495) 3.90 M/ L 3.93-5.22 HEMOGLOBIN (BEAKER) (test mlnh=414) 9.9 GM/DL 11.2-15.7 HEMATOCRIT (BEAKER) (test scie=882) 33.2 % 34.1-44.9 MEAN CORPUSCULAR VOLUME (BEAKER) (test jocm=207) 85.1 fL 79.4-94.8 MEAN CORPUSCULAR HEMOGLOBIN (BEAKER) (test 25.4 pg 25.6-32.2 xune=188) MEAN CORPUSCULAR HEMOGLOBIN CONC (BEAKER) (test 29.8 GM/DL 32.2-35.5 eurb=602) RED CELL DISTRIBUTION WIDTH (BEAKER) (test 15.6 % 11.7-14.4 pqqs=335) PLATELET COUNT (BEAKER) (test ufem=761) 210 K/CU MM 150-450 MEAN PLATELET VOLUME (BEAKER) (test snmh=226) 10.0 fL 9.4-12.3 NUCLEATED RED BLOOD CELLS (BEAKER) (test 0 /100 WBC 0-0 mqxl=475) NEUTROPHILS RELATIVE PERCENT (BEAKER) (test 68 % cjxn=183) LYMPHOCYTES RELATIVE PERCENT (BEAKER) (test 20 % aqsx=619) MONOCYTES RELATIVE PERCENT (BEAKER) (test 9 % xxds=231) EOSINOPHILS RELATIVE PERCENT (BEAKER) (test 3 % lzar=654) BASOPHILS RELATIVE PERCENT (BEAKER) (test 0 % bblw=145) NEUTROPHILS ABSOLUTE COUNT (BEAKER) (test 5.76 K/ L 1.56-6.13 ozis=950) LYMPHOCYTES ABSOLUTE COUNT (BEAKER) (test 1.68 K/ L 1.18-3.74 kuba=303) MONOCYTES ABSOLUTE COUNT (BEAKER) (test 0.80 K/ L 0.24-0.36 sxro=137) EOSINOPHILS ABSOLUTE COUNT (BEAKER) (test 0.23 K/ L 0.04-0.36 ypqs=527) BASOPHILS ABSOLUTE COUNT (BEAKER) (test 0.03 K/ L 0.01-0.08 ojsa=480) IMMATURE GRANULOCYTES-RELATIVE PERCENT (BEAKER) 0 % 0-1 (test ejyr=4880) [id number] 14:44:00 Test Item Value Reference Range Comments LIPASE (BEAKER) (test qurl=825) 972 U/L 8-78 [id number] 13:06:00 Test Item Value Reference Range Comments PHOSPHORUS (BEAKER) (test mvex=942) 3.3 mg/dL 2.3-4.7 [id number] 13:06:00 Test Item Value Reference Range Comments MAGNESIUM (BEAKER) (test mxqj=301) 2.0 mg/dL 1.6-2.6 BASIC METABOLIC [id number] 13:06:00 Test Item Value Reference Range Comments SODIUM (BEAKER) (test 141 meq/L 136-145 doiy=118) POTASSIUM (BEAKER) (test 4.3 meq/L 3.5-5.1 lkyl=628) CHLORIDE (BEAKER) (test 105 meq/L 98-107 afgb=461) CO2 (BEAKER) (test 26 meq/L 22-29 fsej=424) BLOOD UREA NITROGEN 12 mg/dL 7-21 (BEAKER) (test ciet=522) CREATININE (BEAKER) (test 0.80 mg/dL 0.57-1.25 woic=939) GLUCOSE RANDOM (BEAKER) 159 mg/dL 70-105 (test gpbb=886) CALCIUM (BEAKER) (test 8.9 mg/dL 8.4-10.2 kivf=747) EGFR (BEAKER) (test 71 mL/min/1.73 sq m ESTIMATED GFR IS NOT dwea=0488) ACCURATE CREATININE CLEARANCE IN PREDICTING GLOMERULAR FILTRATION RATE. ESTIMATED GFR IS NOT APPLICABLE FOR DIALYSIS PATIENTS. LIPID [id number] 13:06:00 Test Item Value Reference Range Comments TRIGLYCERIDES (BEAKER) (test ihsv=497) 210 mg/dL CHOLESTEROL (BEAKER) (test uqjq=177) 213 mg/dL HDL CHOLESTEROL (BEAKER) (test zuxs=102) 56 mg/dL LDL CHOLESTEROL CALCULATED (BEAKER) (test 115 mg/dL slhd=074) Triglyceride Reference Range: Low Risk <150 Borderline 150- 199 High Risk 200-499 Very High Risk >=500Cholesterol Reference Range: Low Risk <200 Borderline 200-239 High Risk > 240HDL Cholesterol Reference Range: Low Risk >=60 High Risk <40LDL Cholesterol Reference Range: Optimal <100 Near Optimal 100-129 Borderline 130-159 High 160-189 Very High >=190HEPATIC FUNCTION [id number] 13:06:00 Test Item Value Reference Range Comments TOTAL PROTEIN (BEAKER) (test qqpp=222) 8.2 gm/dL 6.0-8.3 ALBUMIN (BEAKER) (test mxvs=1266) 4.1 g/dL 3.5-5.0 BILIRUBIN TOTAL (BEAKER) (test kgio=244) 0.5 mg/dL 0.2-1.2 BILIRUBIN DIRECT (BEAKER) (test cfjm=035) 0.1 mg/dL 0.1-0.5 ALKALINE PHOSPHATASE (BEAKER) (test uigw=721) 94 U/L 40-150 AST (SGOT) (BEAKER) (test jfvv=798) 17 U/L 5-34 ALT (SGPT) (BEAKER) (test oiun=139) 18 U/L 6-55 CBC W/PLT COUNT & AUTO [id number] 12:46:00 Test Item Value Reference Range Comments WHITE BLOOD CELL COUNT (BEAKER) (test cycb=963) 11.1 K/ L 3.5-10.5 RED BLOOD CELL COUNT (BEAKER) (test vztt=219) 4.27 M/ L 3.93-5.22 HEMOGLOBIN (BEAKER) (test jixe=660) 11.0 GM/DL 11.2-15.7 HEMATOCRIT (BEAKER) (test qqtg=992) 35.9 % 34.1-44.9 MEAN CORPUSCULAR VOLUME (BEAKER) (test yfwz=507) 84.1 fL 79.4-94.8 MEAN CORPUSCULAR HEMOGLOBIN (BEAKER) (test 25.8 pg 25.6-32.2 qgns=452) MEAN CORPUSCULAR HEMOGLOBIN CONC (BEAKER) (test 30.6 GM/DL 32.2-35.5 wqen=897) RED CELL DISTRIBUTION WIDTH (BEAKER) (test 15.4 % 11.7-14.4 opms=486) PLATELET COUNT (BEAKER) (test qwkh=243) 233 K/CU MM 150-450 MEAN PLATELET VOLUME (BEAKER) (test qcus=580) 10.4 fL 9.4-12.3 NUCLEATED RED BLOOD CELLS (BEAKER) (test 0 /100 WBC 0-0 mscn=830) NEUTROPHILS RELATIVE PERCENT (BEAKER) (test 81 % myvv=594) LYMPHOCYTES RELATIVE PERCENT (BEAKER) (test 12 % tqvz=388) MONOCYTES RELATIVE PERCENT (BEAKER) (test 6 % ivoo=501) EOSINOPHILS RELATIVE PERCENT (BEAKER) (test 0 % liuq=625) BASOPHILS RELATIVE PERCENT (BEAKER) (test 0 % talo=444) NEUTROPHILS ABSOLUTE COUNT (BEAKER) (test 9.05 K/ L 1.56-6.13 vgpi=103) LYMPHOCYTES ABSOLUTE COUNT (BEAKER) (test 1.34 K/ L 1.18-3.74 qede=023) MONOCYTES ABSOLUTE COUNT (BEAKER) (test 0.62 K/ L 0.24-0.36 khtl=633) EOSINOPHILS ABSOLUTE COUNT (BEAKER) (test 0.04 K/ L 0.04-0.36 elou=418) BASOPHILS ABSOLUTE COUNT (BEAKER) (test 0.02 K/ L 0.01-0.08 xxmm=585) IMMATURE GRANULOCYTES-RELATIVE PERCENT (BEAKER) 0 % 0-1 (test kmve=[id number]) PROTHROMBIN TIME/[id number] 12:39:00 Test Item Value Reference Range Comments PROTIME (BEAKER) (test hqcb=491) 13.4 seconds 11.9-14.2 INR (BEAKER) (test gqlc=574) 1.1 <=5.9 Effective 08/03/2018: PT Reference Range ChangeNew: 11.9-14.2 Previous: 11.7- 14.7RECOMMENDED COUMADIN/WARFARIN INR THERAPY RANGESSTANDARD DOSE: 2.0-3.0 Includes: PROPHYLAXIS for venous thrombosis, systemic embolization; TREATMENT for venous thrombosis and/or pulmonary embolus.HIGH RISK: Target INR is2.5-3.5 for patients wiht mechanical heart valves.
--- NOTE | 2019-01-23 17:16 | RAD REPORT ---
EXAM DESCRIPTION: RAD - Chest Single View - 01/23/2019 5:02 pm CLINICAL HISTORY: CHEST PAIN Chest pain. COMPARISON: Chest Single View dated 08/28/2018; Chest Single View dated 07/20/2018; Chest Single View dated 08/31/2017; Chest Single View dated 03/15/2017 FINDINGS: Portable technique limits examination quality. The lungs are grossly clear. The heart is mildly enlarged in size. Small to moderate hiatal hernia. IMPRESSION: No acute intrathoracic process suspected.
[2019-01-23] MEDS ORDERED: TAMSULOSIN 0.4 MG SR CAP ONE (17:26)
[2019-01-23] MEDS ORDERED: FENTANYL CITR 100 MCG/2 ML ONE ×2 (17:32→20:09)
[2019-01-23] MEDS ORDERED: ONDANSETRON 4 MG/2 ML VIAL ONE (17:32)
[2019-01-23] MEDS ORDERED: NA CHLORIDE 0.9% 1,000 ML ONE (17:33)
[2019-01-23] MEDS ORDERED: PANTOPRAZOLE 40 MG INJ ONE (17:33)
[2019-01-23 18:15] LABS: Protime INR 1.01
[2019-01-23 19:08] LABS: Absolute Lymphocytes (CBC) 2.4 K/uL (0.7-4.9); Basophils % 1.4 % (0-1.3); Hematocrit 33.2 % (36.0-45.0); Lymphocytes % 25.7 % (15.3-44.8); RBC Red Blood Cell Count 4.22 M/uL (3.86-4.86)
[2019-01-23 19:15] LABS: Platelet Estimate ADEQ; Urine White Blood Cell Casts OK
[2019-01-23 19:16] LABS: Blood Morphology Comment NOT SEEN (NOT SEEN)
[2019-01-23 19:45] LABS: ALT/SGPT 17 U/L (12-78); AST/SGOT 17 U/L (15-37); Albumin 3.1 g/dL (3.4-5.0); Alkaline Phosphatase 82 U/L (45-117); BUN Blood Urea Nitrogen 15 mg/dL (7-18); Bicarbonate 23 mmol/L (21-32); Bilirubin Direct < 0.1 mg/dL (0-0.2); Bilirubin Total 0.2 mg/dL (0.2-1.0); Glucose Level 114 mg/dL (74-106); Lipase 283 U/L (73-393); Magnesium 2.1 mg/dL (1.8-2.4); NT PRO-BNP 227 pg/mL (<125); Potassium 4.3 mmol/L (3.5-5.1); Sodium Level 141 mmol/L (136-145); Troponin (Emerg Dept Use Only) < 0.02 ng/mL (0.0-0.045)
[2019-01-23 19:54] LABS: Urine Bacteria <20 /HPF (<20); Urine Culture Reflex Order REFLEXED; Urine RBC <5 /HPF (NONE SEEN)
[2019-01-23] MEDS ORDERED: SUCRALFATE 1 GM TABLET ONE (20:08)
--- NOTE | 2019-01-23 20:24 | EDPHYS ---
Physician Documentation [facility] Name: Isadora Bettencourt Age: 73 yrs Sex: Female : 1945 Arrival Date: 01/23/2019 Time: 16:02 Bed 26 Private MD: ED Physician Anthony Kaminski HPI: 01/23 18:28 This 73 yrs old Female presents to ER via Ambulatory with complaints of snw Throat Pain, Abdominal Pain. 18:28 Onset: The symptoms/episode began/occurred suddenly, 2 day(s) ago, and became snw persistent. Associated signs and symptoms: Pertinent positives: abdominal pain, cough, sore throat, unable to hold down meds. The patient has experienced similar episodes in the past, multiple times. It is unknown whether or not the patient has recently seen a physician. 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 - Social history:: Smoking status: Patient/guardian denies using tobacco. - Ebola Screening: : No symptoms or risks identified at this time. ROS: 18:26 Constitutional: Negative for fever, chills, and weight loss, Eyes: Negative for injury, snw pain, redness, and discharge, ENT: Negative for injury, pain, and discharge, Neck: Negative for injury, pain, and swelling, Cardiovascular: Negative for chest pain, palpitations, and edema, Respiratory: Negative for shortness of breath, cough, wheezing, and pleuritic chest pain, Back: Negative for injury and pain, : Negative for injury, bleeding, discharge, and swelling, MS/Extremity: Negative for injury and deformity, Skin: Negative for injury, rash, and discoloration, Neuro: Negative for headache, weakness, numbness, tingling, and seizure. 18:26 Abdomen/GI: Positive for abdominal pain, nausea, vomiting, of the epigastric area. Exam: 18:26 Constitutional: This is a well developed, well nourished patient who is awake, alert, snw and in no acute distress. Head/Face: Normocephalic, atraumatic. Eyes: Pupils equal round and reactive to light, extra-ocular motions intact. Lids and lashes normal. Conjunctiva and sclera are non-icteric and not injected. Cornea within normal limits. Periorbital areas with no swelling, redness, or edema. ENT: Nares patent. No nasal discharge, no septal abnormalities noted. Tympanic membranes are normal and external auditory canals are clear. Oropharynx with no redness, swelling, or masses, exudates, or evidence of obstruction, uvula midline. Mucous membranes moist. Neck: Trachea midline, no thyromegaly or masses palpated, and no cervical lymphadenopathy. Supple, full range of motion without nuchal rigidity, or vertebral point tenderness. No Meningismus. Chest/axilla: Normal chest wall appearance and motion. Nontender with no deformity. No lesions are appreciated. Cardiovascular: Regular rate and rhythm with a normal S1 and S2. No gallops, murmurs, or rubs. Normal PMI, no JVD. No pulse deficits. Abdomen/GI: Soft, epigastric area tender, with normal bowel sounds. No distension or tympany. No guarding or rebound. No evidence of tenderness throughout. Back: No spinal tenderness. No costovertebral tenderness. Full range of motion. Skin: Warm, dry with normal turgor. Normal color with no rashes, no lesions, and no evidence of cellulitis. MS/ Extremity: Pulses equal, no cyanosis. Neurovascular intact. Full, normal range of motion. Neuro: Awake and alert, GCS 15, oriented to person, place, time, and situation. Cranial nerves II-XII grossly intact. Motor strength 5/5 in all extremities. Sensory grossly intact. Cerebellar exam normal. Normal gait. Psych: Awake, alert, with orientation to person, place and time. Behavior, mood, and affect are within normal limits. 18:26 Respiratory: the patient does not display signs of respiratory distress, Respirations: normal, Breath sounds: are clear throughout, cough. Vital Signs: 16:21 BP 183 / 101; Pulse 86; Resp 20; Temp 97.5; Pulse Ox 98% on R/A; Weight 81.65 kg; hb Height 5 ft. 1 in. (154.94 cm); Pain 8/10; 18:00 BP 161 / 91; Pulse 72; Resp 20; Pulse Ox 100% ; fu 19:00 BP 163 / 91; Pulse 67; Resp 21; Pulse Ox 100% ; fu 20:00 BP 143 / 49; Pulse 75; Resp 19; Pulse Ox 97% ; Pain 4/10; fu 16:21 Body Mass Index 34.01 (81.65 kg, 154.94 cm) hb MDM: 16:23 Patient medically screened. james 20:24 Data reviewed: vital signs, nurses notes, lab test result(s), EKG, radiologic studies. snw Data interpreted: Pulse oximetry: on room air is 100 %. Interpretation: normal. Counseling: I had a detailed discussion with the patient and/or guardian regarding: the historical points, exam findings, and any diagnostic results supporting the discharge/admit diagnosis, the presence of at least one elevated blood pressure reading (>120/80) during this emergency department visit, lab results, the need for outpatient follow up, to return to the emergency department if symptoms worsen or persist or if there are any questions or concerns that arise at home. Special discussion: Based on the history and exam findings, there is no indication for further emergent testing or inpatient evaluation. I discussed with the patient/guardian the need to see the primary care provider for further evaluation of the symptoms. 01/23 16:34 Order name: Basic Metabolic Panel; Complete Time: 20:04 snw 01/23 16:34 Order name: CBC with Diff snw 01/23 16:34 Order name: LFT's; Complete Time: 20:04 snw 01/23 16:34 Order name: Magnesium; Complete Time: 20:04 snw 01/23 16:34 Order name: NT PRO-BNP; Complete Time: 20:04 snw 01/23 16:34 Order name: PT-INR; Complete Time: 18:20 snw 01/23 16:34 Order name: Troponin (emerg Dept Use Only); Complete Time: 20:04 snw 01/23 16:34 Order name: XRAY Chest (1 view); Complete Time: 17:19 snw 01/23 16:34 Order name: Lipase; Complete Time: 20:04 snw 01/23 16:34 Order name: Urine Microscopic Only; Complete Time: 20:04 snw 01/23 19:16 Order name: Urine Dipstick--Ancillary (enter results) mw2 01/23 19:17 Order name: CBC Smear Scan EDMS 01/23 16:34 Order name: EKG; Complete Time: 16:35 snw 01/23 16:34 Order name: Cardiac monitoring; Complete Time: 17:21 snw 01/23 16:34 Order name: EKG - Nurse/Tech; Complete Time: 16:50 snw 01/23 16:34 Order name: IV Saline Lock; Complete Time: 17:54 snw 01/23 16:34 Order name: Labs collected and sent; Complete Time: 17:54 snw 01/23 16:34 Order name: O2 Per Protocol; Complete Time: 17:22 snw 01/23 16:34 Order name: O2 Sat Monitoring; Complete Time: 17:22 snw 01/23 16:34 Order name: Urine Dipstick-Ancillary (obtain specimen); Complete Time: 19:17 snw Administered Medications: 17:48 Drug: fentaNYL (PF) 25 mcg Route: IVP; Site: right antecubital; 19:30 Follow up: Response: No adverse reaction; Pain is decreased; RASS: Alert and Calm (0) 17:50 Drug: Zofran 2 mg Route: IVP; Site: right antecubital; 19:30 Follow up: Response: No adverse reaction; Nausea is decreased 17:53 Drug: ProTONIX 40 mg Route: IVP; Site: right antecubital; 19:30 Follow up: Response: No adverse reaction 17:53 Drug: NS 0.9% 1000 ml Route: IV; Rate: 1 bolus; Site: right antecubital; 19:30 Follow up: IV Status: Completed infusion 20:30 Drug: CarafATE 1 grams Route: PO; fu 20:30 Drug: fentaNYL (PF) 25 mcg Route: IVP; Site: right forearm; fu Disposition: 01/24 06:47 Co-signature as Attending Physician, Anthony Kaminski MD I agree with the assessment and james plan of care. Disposition: 01/23/19 20:23 Discharged to Home. Impression: Upper abdominal pain, unspecified, Nausea and vomiting. - Condition is Stable. - Discharge Instructions: Abdominal Pain, Adult, Colic, Hypertension, Nausea and Vomiting, Adult. - Prescriptions for Carafate 1 gram Oral Tablet - take 1 tablet by ORAL route 4 times per day take on an empty stomach, beginning on waking and last dose at bedtime; 100 tablet. - Medication Reconciliation Form, Thank You Letter, Antibiotic Education, Prescription Opioid Use form. - Follow up: Private Physician; When: 2 - 3 days; Reason: Recheck today's complaints, Continuance of care, Re-evaluation by your physician. Follow up: Emergency Department; When: As needed; Reason: Worsening of condition. Signatures: Dispatcher [employer] EDMS Anhtony Kaminski MD MD cha Therrien, Shelly, PERSONAL DEVELOPMENT MENTOR-C PERSONAL DEVELOPMENT MENTOR-Csnw Radha Garcia RN RN hb Habalo, Winsy wh Umadhay, Felix, RN RN fu Corrections: (The following items were deleted from the chart) 01/23 18:28 18:26 Constitutional: This is a well developed, well nourished patient who is awake, snw alert, and in no acute distress. Head/Face: Normocephalic, atraumatic. Eyes: Pupils equal round and reactive to light, extra-ocular motions intact. Lids and lashes normal. Conjunctiva and sclera are non-icteric and not injected. Cornea within normal limits. Periorbital areas with no swelling, redness, or edema. ENT: Nares patent. No nasal discharge, no septal abnormalities noted. Tympanic membranes are normal and external auditory canals are clear. Oropharynx with no redness, swelling, or masses, exudates, or evidence of obstruction, uvula midline. Mucous membranes moist. Neck: Trachea midline, no thyromegaly or masses palpated, and no cervical lymphadenopathy. Supple, full range of motion without nuchal rigidity, or vertebral point tenderness. No Meningismus. Chest/axilla: Normal chest wall appearance and motion. Nontender with no deformity. No lesions are appreciated. Cardiovascular: Regular rate and rhythm with a normal S1 and S2. No gallops, murmurs, or rubs. Normal PMI, no JVD. No pulse deficits. Back: No spinal tenderness. No costovertebral tenderness. Full range of motion. Skin: Warm, dry with normal turgor. Normal color with no rashes, no lesions, and no evidence of cellulitis. MS/ Extremity: Pulses equal, no cyanosis. Neurovascular intact. Full, normal range of motion. Neuro: Awake and alert, GCS 15, oriented to person, place, time, and situation. Cranial nerves II-XII grossly intact. Motor strength 5/5 in all extremities. Sensory grossly intact. Cerebellar exam normal. Normal gait. Psych: Awake, alert, with orientation to person, place and time. Behavior, mood, and affect are within normal limits. snw 20:58 20:23 01/23/2019 20:23 Discharged to Home. Impression: Upper abdominal pain, fu unspecified; Nausea and vomiting. Condition is Stable. Forms are Medication Reconciliation Form, Thank You Letter, Antibiotic Education, Prescription Opioid Use. Follow up: Private Physician; When: 2 - 3 days; Reason: Recheck today's complaints, Continuance of care, Re-evaluation by your physician. Follow up: Emergency Department; When: As needed; Reason: Worsening of condition. snw
--- NOTE | 2019-01-23 20:24 | ER ---
Nurse's Notes [facility] Name: Isadora Bettencourt Age: 73 yrs Sex: Female : 1945 Arrival Date: 01/23/2019 Time: 16:02 Bed 26 Private MD: Diagnosis: Upper abdominal pain, unspecified;Nausea and vomiting Presentation: 01/23 16:19 Presenting complaint: Epigastric pain and vomiting x 2 days. Hx of gastric ulcers, hb unable to keep medication down. Transition of care: patient was not received from another setting of care. Onset of symptoms was January 22, 2019. Risk Assessment: Do you want to hurt yourself or someone else? Patient reports no desire to harm self or others. Care prior to arrival: None. 16:19 Method Of Arrival: Ambulatory 16:19 Acuity: FRANDY 3 hb 17:05 Initial Sepsis Screen: Does the patient meet any 2 criteria? No. Patient's initial sepsis screen is negative. Does the patient have a suspected source of infection? Yes: Acute abdominal pain. 19:29 Initial Sepsis Screen: Does the patient meet any 2 criteria?. 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 - Social history:: Smoking status: Patient/guardian denies using tobacco. - Ebola Screening: : No symptoms or risks identified at this time. Screenin:47 Abuse screen: Denies threats or abuse. Denies injuries from another. Nutritional aj1 screening: No deficits noted. Tuberculosis screening: No symptoms or risk factors identified. 17:05 Fall Risk None identified. Assessment: 16:47 General: Appears in no apparent distress. uncomfortable, Behavior is calm, cooperative, aj1 appropriate for age. Pain: Complains of pain in epigastric area. Neuro: Level of Consciousness is awake, alert, obeys commands, Oriented to person, place, time, situation. Cardiovascular: Patient's skin is warm and dry. Respiratory: Airway is patent Respiratory effort is even, unlabored, Respiratory pattern is regular, symmetrical. GI: Abdomen is non-distended, Bowel sounds present X 4 quads. Abd is soft X 4 quads Reports nausea, vomiting. : No signs and/or symptoms were reported regarding the genitourinary system. EENT: No signs and/or symptoms were reported regarding the EENT system. Derm: No signs and/or symptoms reported regarding the dermatologic system. Skin is pink, warm \T\ dry. normal. Musculoskeletal: No signs and/or symptoms reported regarding the musculoskeletal system. Circulation, motion, and sensation intact. 17:25 Reassessment: Patient appears in no apparent distress at this time. No changes from previously documented assessment. Patient and/or family updated on plan of care and expected duration. Pain level reassessed. Patient is alert, oriented x 3, equal unlabored respirations, skin warm/dry/pink. 18:30 Reassessment: Patient appears in no apparent distress at this time. No changes from previously documented assessment. Patient and/or family updated on plan of care and expected duration. Pain level reassessed. Patient is alert, oriented x 3, equal unlabored respirations, skin warm/dry/pink. 19:28 Reassessment: Patient appears in no apparent distress at this time. No changes from previously documented assessment. Patient and/or family updated on plan of care and expected duration. Pain level reassessed. Patient is alert, oriented x 3, equal unlabored respirations, skin warm/dry/pink. Patient states feeling better. Patient states symptoms have improved. 19:39 Reassessment: Patient appears in no apparent distress at this time. Patient and/or fu family updated on plan of care and expected duration. Pain level reassessed. Patient is alert, oriented x 3, equal unlabored respirations, skin warm/dry/pink. reports epigastric pain 9/10 in pain scale.. 20:20 Reassessment: Patient appears in no apparent distress at this time. Patient and/or fu family updated on plan of care and expected duration. Pain level reassessed. Patient is alert, oriented x 3, equal unlabored respirations, skin warm/dry/pink. Patient states feeling better. Patient states symptoms have improved. Vital Signs: 16:21 BP 183 / 101; Pulse 86; Resp 20; Temp 97.5; Pulse Ox 98% on R/A; Weight 81.65 kg; hb Height 5 ft. 1 in. (154.94 cm); Pain 8/10; 18:00 BP 161 / 91; Pulse 72; Resp 20; Pulse Ox 100% ; fu 19:00 BP 163 / 91; Pulse 67; Resp 21; Pulse Ox 100% ; fu 20:00 BP 143 / 49; Pulse 75; Resp 19; Pulse Ox 97% ; Pain 4/10; fu 16:21 Body Mass Index 34.01 (81.65 kg, 154.94 cm) hb ED Course: 16:02 Patient arrived in ED. rg4 16:16 [facility] snw 16:16 Anthony Kaminski MD is Attending Physician. snw 16:20 Triage completed. hb 16:21 Arm band placed on. hb 16:35 Yessenia Trejo RN is Primary Nurse. aj1 16:47 Patient has correct armband on for positive identification. aj1 16:47 No provider procedures requiring assistance completed. aj1 16:48 EKG done, by preparatory technician. reviewed by Ambar [place]. sm3 17:03 XRAY Chest (1 view) In Process Unspecified. EDMS 17:31 Inserted saline lock: 22 gauge in right forearm, using aseptic technique. jb1 19:15 Primary Nurse role handed off by Yessenia Trejo, RN fu 19:15 Steven Andrews, RN is Primary Nurse. fu 19:31 Bed in low position. Call light in reach. Side rails up X 1. clinical pharmacist on. Pulse fu ox on. NIBP on. 20:50 IV discontinued, bleeding controlled, Pressure dressing applied. fu Administered Medications: 17:48 Drug: fentaNYL (PF) 25 mcg Route: IVP; Site: right antecubital; 19:30 Follow up: Response: No adverse reaction; Pain is decreased; RASS: Alert and Calm (0) 17:50 Drug: Zofran 2 mg Route: IVP; Site: right antecubital; 19:30 Follow up: Response: No adverse reaction; Nausea is decreased 17:53 Drug: ProTONIX 40 mg Route: IVP; Site: right antecubital; 19:30 Follow up: Response: No adverse reaction 17:53 Drug: NS 0.9% 1000 ml Route: IV; Rate: 1 bolus; Site: right antecubital; 19:30 Follow up: IV Status: Completed infusion 20:30 Drug: CarafATE 1 grams Route: PO; fu 20:30 Drug: fentaNYL (PF) 25 mcg Route: IVP; Site: right forearm; fu Outcome: 20:23 Discharge ordered by . anthony 20:50 Discharged to home ambulatory. fu 20:50 Condition: improved 20:50 Discharge instructions given to patient, Instructed on discharge instructions, follow up and referral plans. Demonstrated understanding of instructions, medications, Prescriptions given X 1. 20:58 Patient left the ED. fu Signatures: Dispatcher [employer] EDSouth [place] jb1 Yessenia Trejo RN RN aj1 Ambar Mcclure, JOB ANALYSIS MANAGER-C JOB ANALYSIS MANAGER-Csnw Radha Garcia RN RN hb Garcia, Rubi rg4 Piyush Hanson Steven Andrews RN Brittney Guallpa 3
[2019-01-23 21:01] LABS: Urine Blood TRACE (NEG); Urine Glucose NEGATIVE (NEG); Urine Protein NEGATIVE (NEG)
[2019-01-23 23:48] VITALS: TEMP 97.5
[2019-01-23 23:49] VITALS: O2SAT 100
[2019-01-23 23:50] VITALS: BP 163/91
--- NOTE | 2019-01-24 09:44 | EKG ---
Test Date: 2019-01-23 Test Time: 16:44:45 [employer] Supervisor: SILVANA MEASUREMENT RESULTS: Intervals: Rate: 87 CA: 154 QRSD: 134 QT: 416 QTc: 500 [place]: P: 74 CA: 154 QRS: -26 T: 74 INTERPRETIVE STATEMENTS: Normal sinus rhythm Nonspecific intraventricular block Cannot rule out Anterior infarct, age undetermined Abnormal ECG Compared to ECG 07/20/2018 07:17:30 Myocardial infarct finding now present Left-axis deviation no longer present Left bundle-branch block no longer present Electronically Signed On 01-24-19 09:42:01 DIRECTOR OF MAINTENANCE by Artemio Bolivar
== END 2019-01-23 20:58 | disposition home or self-care (01) ==
LOC: ER 16:00
DX: R11.2 Nausea with vomiting, unspecified (principal); I10 Essential (primary) hypertension; E78.5 Hyperlipidemia, unspecified; F41.9 Anxiety disorder, unspecified; Z88.8 Allergy status to other drugs, medicaments and biological substances
CPT/HCPCS: 93005; 85025; 80048; 36415; 83735; 85610; 80076; 84484; 83690; 83880; 71045; 99284; C9113; J3010 ×2; J7030; J2405; 81003; 81015; 96361; 96374; 96375

== ENCOUNTER 2019-04-20 14:56 | Emergency (ER) | payer OTHER ==
[2011-09-29 16:55] VITALS: BP 113/72
--- OUTSIDE RECORDS SUMMARY | 2019-04-20 15:00 | XMS REPORT ---
:1945 [facility] Address Formerly [facility], [facility] Dragan Padilla [address] [place] [address] Care Team Providers Name Role Phone GAY QIU Unavailable Unavailable Problems This patient has no known problems. Allergies, Adverse Reactions, Alerts This patient has no known allergies or adverse reactions. Medications This patient has no known medications. Results Test Description Test Time Test Comments Text Results Atomic Results Result Comments PHOSPHORUS 2018-11-11 05:54:00 Test Item Value Reference Range Comments PHOSPHORUS (BEAKER) (test eupq=376) 3.6 mg/dL 2.3-4.7 [id number] 05:54:00 Test Item Value Reference Range Comments MAGNESIUM (BEAKER) (test idtf=863) 1.8 mg/dL 1.6-2.6 BASIC METABOLIC [id number] 05:54:00 Test Item Value Reference Range Comments SODIUM (BEAKER) (test 137 meq/L 136-145 rgti=278) POTASSIUM (BEAKER) (test 3.8 meq/L 3.5-5.1 cbhc=325) CHLORIDE (BEAKER) (test 103 meq/L 98-107 yjgl=900) CO2 (BEAKER) (test 28 meq/L 22-29 yhbl=244) BLOOD UREA NITROGEN 10 mg/dL 7-21 (BEAKER) (test bmre=508) CREATININE (BEAKER) (test 0.75 mg/dL 0.57-1.25 kdvl=958) GLUCOSE RANDOM (BEAKER) 113 mg/dL 70-105 (test zgfa=316) CALCIUM (BEAKER) (test 8.4 mg/dL 8.4-10.2 qelt=091) EGFR (BEAKER) (test 76 mL/min/1.73 sq m ESTIMATED GFR IS NOT gzwk=6029) ACCURATE CREATININE CLEARANCE IN PREDICTING GLOMERULAR FILTRATION RATE. ESTIMATED GFR IS NOT APPLICABLE FOR DIALYSIS PATIENTS. HEPATIC FUNCTION [id number] 05:54:00 Test Item Value Reference Range Comments TOTAL PROTEIN (BEAKER) (test milf=428) 6.7 gm/dL 6.0-8.3 ALBUMIN (BEAKER) (test onzg=3416) 3.5 g/dL 3.5-5.0 BILIRUBIN TOTAL (BEAKER) (test stqq=816) 0.5 mg/dL 0.2-1.2 BILIRUBIN DIRECT (BEAKER) (test sufz=141) 0.2 mg/dL 0.1-0.5 ALKALINE PHOSPHATASE (BEAKER) (test cgln=307) 76 U/L 40-150 AST (SGOT) (BEAKER) (test roiq=813) 17 U/L 5-34 ALT (SGPT) (BEAKER) (test dieo=088) 12 U/L 6-55 CBC W/PLT COUNT & AUTO [id number] 05:43:00 Test Item Value Reference Range Comments WHITE BLOOD CELL COUNT (BEAKER) (test qeyd=204) 6.6 K/ L 3.5-10.5 RED BLOOD CELL COUNT (BEAKER) (test rdyo=809) 3.63 M/ L 3.93-5.22 HEMOGLOBIN (BEAKER) (test hjwb=685) 9.3 GM/DL 11.2-15.7 HEMATOCRIT (BEAKER) (test xwuj=639) 31.1 % 34.1-44.9 MEAN CORPUSCULAR VOLUME (BEAKER) (test nxvu=223) 85.7 fL 79.4-94.8 MEAN CORPUSCULAR HEMOGLOBIN (BEAKER) (test 25.6 pg 25.6-32.2 jtup=622) MEAN CORPUSCULAR HEMOGLOBIN CONC (BEAKER) (test 29.9 GM/DL 32.2-35.5 usgr=081) RED CELL DISTRIBUTION WIDTH (BEAKER) (test 15.4 % 11.7-14.4 iijr=136) PLATELET COUNT (BEAKER) (test xlms=807) 157 K/CU MM 150-450 MEAN PLATELET VOLUME (BEAKER) (test xhgm=546) 10.5 fL 9.4-12.3 NUCLEATED RED BLOOD CELLS (BEAKER) (test 0 /100 WBC 0-0 qbcj=540) NEUTROPHILS RELATIVE PERCENT (BEAKER) (test 59 % znef=437) LYMPHOCYTES RELATIVE PERCENT (BEAKER) (test 26 % jwqn=059) MONOCYTES RELATIVE PERCENT (BEAKER) (test 11 % vuxy=104) EOSINOPHILS RELATIVE PERCENT (BEAKER) (test 3 % fhui=418) BASOPHILS RELATIVE PERCENT (BEAKER) (test 1 % jmyc=923) NEUTROPHILS ABSOLUTE COUNT (BEAKER) (test 3.91 K/ L 1.56-6.13 bgma=898) LYMPHOCYTES ABSOLUTE COUNT (BEAKER) (test 1.72 K/ L 1.18-3.74 uwsz=281) MONOCYTES ABSOLUTE COUNT (BEAKER) (test 0.72 K/ L 0.24-0.36 suwf=557) EOSINOPHILS ABSOLUTE COUNT (BEAKER) (test 0.22 K/ L 0.04-0.36 xfub=947) BASOPHILS ABSOLUTE COUNT (BEAKER) (test 0.04 K/ L 0.01-0.08 vghh=242) IMMATURE GRANULOCYTES-RELATIVE PERCENT (BEAKER) 0 % 0-1 (test hymu=2216) PROTHROMBIN [id number] 05:42:00 Test Item Value Reference Range Comments PROTIME (BEAKER) (test bysh=676) 13.0 seconds 11.9-14.2 INR (BEAKER) (test xzxf=419) 1.0 <=5.9 Effective 08/03/2018: PT Reference Range ChangeNew: 11.9-14.2 Previous: 11.7- 14.7RECOMMENDED COUMADIN/WARFARIN INR THERAPY RANGESSTANDARD DOSE: 2.0-3.0 Includes: PROPHYLAXIS for venous thrombosis, systemic embolization; TREATMENT for venous thrombosis and/or pulmonary embolus.HIGH RISK: Target INR is2.5-3.5 for patients wiht mechanical heart valves.HEMOGLOBIN [id number] 07:50:00 Test Item Value Reference Range Comments HEMOGLOBIN A1C (BEAKER) (test ndjp=431) 7.1 % 4.3-6.1 [id number] 04:53:00 Test Item Value Reference Range Comments PHOSPHORUS (BEAKER) (test wrth=332) 3.2 mg/dL 2.3-4.7 [id number] 04:53:00 Test Item Value Reference Range Comments MAGNESIUM (BEAKER) (test oifc=123) 1.8 mg/dL 1.6-2.6 BASIC METABOLIC [id number] 04:53:00 Test Item Value Reference Range Comments SODIUM (BEAKER) (test 139 meq/L 136-145 vgae=939) POTASSIUM (BEAKER) (test 3.8 meq/L 3.5-5.1 pppr=933) CHLORIDE (BEAKER) (test 106 meq/L 98-107 zvbz=264) CO2 (BEAKER) (test 27 meq/L 22-29 abzr=092) BLOOD UREA NITROGEN 15 mg/dL 7-21 (BEAKER) (test gibo=601) CREATININE (BEAKER) (test 0.78 mg/dL 0.57-1.25 rtcs=932) GLUCOSE RANDOM (BEAKER) 149 mg/dL 70-105 (test cbev=327) CALCIUM (BEAKER) (test 8.5 mg/dL 8.4-10.2 ywww=361) EGFR (BEAKER) (test 73 mL/min/1.73 sq m ESTIMATED GFR IS NOT hzga=1029) ACCURATE CREATININE CLEARANCE IN PREDICTING GLOMERULAR FILTRATION RATE. ESTIMATED GFR IS NOT APPLICABLE FOR DIALYSIS PATIENTS. HEPATIC FUNCTION [id number] 04:53:00 Test Item Value Reference Range Comments TOTAL PROTEIN (BEAKER) (test igox=051) 6.9 gm/dL 6.0-8.3 ALBUMIN (BEAKER) (test hwzk=9135) 3.5 g/dL 3.5-5.0 BILIRUBIN TOTAL (BEAKER) (test xdxl=976) 0.7 mg/dL 0.2-1.2 BILIRUBIN DIRECT (BEAKER) (test euxf=759) 0.2 mg/dL 0.1-0.5 ALKALINE PHOSPHATASE (BEAKER) (test hgew=342) 81 U/L 40-150 AST (SGOT) (BEAKER) (test fnlx=777) 14 U/L 5-34 ALT (SGPT) (BEAKER) (test nrte=906) 12 U/L 6-55 PROTHROMBIN [id number] 04:19:00 Test Item Value Reference Range Comments PROTIME (BEAKER) (test frro=753) 14.3 seconds 11.9-14.2 INR (BEAKER) (test kqdc=729) 1.2 <=5.9 Effective 08/03/2018: PT Reference Range ChangeNew: 11.9-14.2 Previous: 11.7- 14.7RECOMMENDED COUMADIN/WARFARIN INR THERAPY RANGESSTANDARD DOSE: 2.0-3.0 Includes: PROPHYLAXIS for venous thrombosis, systemic embolization; TREATMENT for venous thrombosis and/or pulmonary embolus.HIGH RISK: Target INR is2.5-3.5 for patients wiht mechanical heart valves.CBC W/PLT COUNT & AUTO [id number] 04:14:00 Test Item Value Reference Range Comments WHITE BLOOD CELL COUNT (BEAKER) (test wtan=264) 8.5 K/ L 3.5-10.5 RED BLOOD CELL COUNT (BEAKER) (test zsof=254) 3.90 M/ L 3.93-5.22 HEMOGLOBIN (BEAKER) (test otkq=708) 9.9 GM/DL 11.2-15.7 HEMATOCRIT (BEAKER) (test rrjz=705) 33.2 % 34.1-44.9 MEAN CORPUSCULAR VOLUME (BEAKER) (test ymak=996) 85.1 fL 79.4-94.8 MEAN CORPUSCULAR HEMOGLOBIN (BEAKER) (test 25.4 pg 25.6-32.2 utoq=158) MEAN CORPUSCULAR HEMOGLOBIN CONC (BEAKER) (test 29.8 GM/DL 32.2-35.5 ffcs=022) RED CELL DISTRIBUTION WIDTH (BEAKER) (test 15.6 % 11.7-14.4 dgoq=944) PLATELET COUNT (BEAKER) (test mmzs=019) 210 K/CU MM 150-450 MEAN PLATELET VOLUME (BEAKER) (test mxwe=558) 10.0 fL 9.4-12.3 NUCLEATED RED BLOOD CELLS (BEAKER) (test 0 /100 WBC 0-0 zmjy=061) NEUTROPHILS RELATIVE PERCENT (BEAKER) (test 68 % ajai=547) LYMPHOCYTES RELATIVE PERCENT (BEAKER) (test 20 % ghme=400) MONOCYTES RELATIVE PERCENT (BEAKER) (test 9 % kbya=629) EOSINOPHILS RELATIVE PERCENT (BEAKER) (test 3 % cgev=100) BASOPHILS RELATIVE PERCENT (BEAKER) (test 0 % mtza=923) NEUTROPHILS ABSOLUTE COUNT (BEAKER) (test 5.76 K/ L 1.56-6.13 ncms=988) LYMPHOCYTES ABSOLUTE COUNT (BEAKER) (test 1.68 K/ L 1.18-3.74 dblr=791) MONOCYTES ABSOLUTE COUNT (BEAKER) (test 0.80 K/ L 0.24-0.36 kebx=810) EOSINOPHILS ABSOLUTE COUNT (BEAKER) (test 0.23 K/ L 0.04-0.36 utzb=111) BASOPHILS ABSOLUTE COUNT (BEAKER) (test 0.03 K/ L 0.01-0.08 sfud=133) IMMATURE GRANULOCYTES-RELATIVE PERCENT (BEAKER) 0 % 0-1 (test zggk=5151) [id number] 14:44:00 Test Item Value Reference Range Comments LIPASE (BEAKER) (test bzrd=422) 972 U/L 8-78 [id number] 13:06:00 Test Item Value Reference Range Comments PHOSPHORUS (BEAKER) (test xumi=728) 3.3 mg/dL 2.3-4.7 [id number] 13:06:00 Test Item Value Reference Range Comments MAGNESIUM (BEAKER) (test rvls=400) 2.0 mg/dL 1.6-2.6 BASIC METABOLIC [id number] 13:06:00 Test Item Value Reference Range Comments SODIUM (BEAKER) (test 141 meq/L 136-145 smcd=537) POTASSIUM (BEAKER) (test 4.3 meq/L 3.5-5.1 krui=930) CHLORIDE (BEAKER) (test 105 meq/L 98-107 fida=892) CO2 (BEAKER) (test 26 meq/L 22-29 szgk=997) BLOOD UREA NITROGEN 12 mg/dL 7-21 (BEAKER) (test scji=126) CREATININE (BEAKER) (test 0.80 mg/dL 0.57-1.25 alym=419) GLUCOSE RANDOM (BEAKER) 159 mg/dL 70-105 (test axdf=017) CALCIUM (BEAKER) (test 8.9 mg/dL 8.4-10.2 gaub=642) EGFR (BEAKER) (test 71 mL/min/1.73 sq m ESTIMATED GFR IS NOT zgqy=2168) ACCURATE CREATININE CLEARANCE IN PREDICTING GLOMERULAR FILTRATION RATE. ESTIMATED GFR IS NOT APPLICABLE FOR DIALYSIS PATIENTS. LIPID [id number] 13:06:00 Test Item Value Reference Range Comments TRIGLYCERIDES (BEAKER) (test dini=969) 210 mg/dL CHOLESTEROL (BEAKER) (test cqlf=839) 213 mg/dL HDL CHOLESTEROL (BEAKER) (test epoj=214) 56 mg/dL LDL CHOLESTEROL CALCULATED (BEAKER) (test 115 mg/dL nqqf=407) Triglyceride Reference Range: Low Risk <150 Borderline 150- 199 High Risk 200-499 Very High Risk >=500Cholesterol Reference Range: Low Risk <200 Borderline 200-239 High Risk > 240HDL Cholesterol Reference Range: Low Risk >=60 High Risk <40LDL Cholesterol Reference Range: Optimal <100 Near Optimal 100-129 Borderline 130-159 High 160-189 Very High >=190HEPATIC FUNCTION [id number] 13:06:00 Test Item Value Reference Range Comments TOTAL PROTEIN (BEAKER) (test jgtc=917) 8.2 gm/dL 6.0-8.3 ALBUMIN (BEAKER) (test kcem=7899) 4.1 g/dL 3.5-5.0 BILIRUBIN TOTAL (BEAKER) (test vghs=395) 0.5 mg/dL 0.2-1.2 BILIRUBIN DIRECT (BEAKER) (test bwym=440) 0.1 mg/dL 0.1-0.5 ALKALINE PHOSPHATASE (BEAKER) (test afsj=897) 94 U/L 40-150 AST (SGOT) (BEAKER) (test rqgn=960) 17 U/L 5-34 ALT (SGPT) (BEAKER) (test guhm=603) 18 U/L 6-55 CBC W/PLT COUNT & AUTO [id number] 12:46:00 Test Item Value Reference Range Comments WHITE BLOOD CELL COUNT (BEAKER) (test bmqx=078) 11.1 K/ L 3.5-10.5 RED BLOOD CELL COUNT (BEAKER) (test luyr=289) 4.27 M/ L 3.93-5.22 HEMOGLOBIN (BEAKER) (test smki=145) 11.0 GM/DL 11.2-15.7 HEMATOCRIT (BEAKER) (test efex=760) 35.9 % 34.1-44.9 MEAN CORPUSCULAR VOLUME (BEAKER) (test rgdr=853) 84.1 fL 79.4-94.8 MEAN CORPUSCULAR HEMOGLOBIN (BEAKER) (test 25.8 pg 25.6-32.2 tebb=332) MEAN CORPUSCULAR HEMOGLOBIN CONC (BEAKER) (test 30.6 GM/DL 32.2-35.5 obrh=190) RED CELL DISTRIBUTION WIDTH (BEAKER) (test 15.4 % 11.7-14.4 eylg=235) PLATELET COUNT (BEAKER) (test kjqh=418) 233 K/CU MM 150-450 MEAN PLATELET VOLUME (BEAKER) (test dran=360) 10.4 fL 9.4-12.3 NUCLEATED RED BLOOD CELLS (BEAKER) (test 0 /100 WBC 0-0 feha=558) NEUTROPHILS RELATIVE PERCENT (BEAKER) (test 81 % icdw=145) LYMPHOCYTES RELATIVE PERCENT (BEAKER) (test 12 % iuup=585) MONOCYTES RELATIVE PERCENT (BEAKER) (test 6 % gbmv=092) EOSINOPHILS RELATIVE PERCENT (BEAKER) (test 0 % hddq=629) BASOPHILS RELATIVE PERCENT (BEAKER) (test 0 % tnkf=922) NEUTROPHILS ABSOLUTE COUNT (BEAKER) (test 9.05 K/ L 1.56-6.13 cyzr=335) LYMPHOCYTES ABSOLUTE COUNT (BEAKER) (test 1.34 K/ L 1.18-3.74 unqa=370) MONOCYTES ABSOLUTE COUNT (BEAKER) (test 0.62 K/ L 0.24-0.36 egds=017) EOSINOPHILS ABSOLUTE COUNT (BEAKER) (test 0.04 K/ L 0.04-0.36 rflu=927) BASOPHILS ABSOLUTE COUNT (BEAKER) (test 0.02 K/ L 0.01-0.08 woco=478) IMMATURE GRANULOCYTES-RELATIVE PERCENT (BEAKER) 0 % 0-1 (test cyys=0746) PROTHROMBIN [id number] 12:39:00 Test Item Value Reference Range Comments PROTIME (BEAKER) (test wxpp=673) 13.4 seconds 11.9-14.2 INR (BEAKER) (test opre=617) 1.1 <=5.9 Effective 08/03/2018: PT Reference Range ChangeNew: 11.9-14.2 Previous: 11.7- 14.7RECOMMENDED COUMADIN/WARFARIN INR THERAPY RANGESSTANDARD DOSE: 2.0-3.0 Includes: PROPHYLAXIS for venous thrombosis, systemic embolization; TREATMENT for venous thrombosis and/or pulmonary embolus.HIGH RISK: Target INR is2.5-3.5 for patients wiht mechanical heart valves.
--- OUTSIDE RECORDS SUMMARY | 2019-04-20 15:00 | XMS REPORT ---
[...] Dosage System Date Date Clonidine HCl ND 48015112627 0.1 MG Orally Active 1 tablet at Once a day bedtime Metoprolol ND 56451696610 50 MG Orally Active 1 tablet with Tartrate Twice a day food Culturelle [facility] 22070663515 - Orally Active not defined Clotrimazole ND 85395665465 1 % Externally Active 1 application Twice a day to affected area Simvastatin ND 66298107321 20 MG Orally Active 1 tablet in Once a day the evening Zestoretic [facility] 11086964667 20-25 MG Orally Active 1 tablet Once a day Protonix [facility] 63678179456 40 MG Orally Active 1 tablet Twice a day Creon [facility] 30775243034 35103-98377 Active 1 cap UNIT Orally three times a day ProAir HFA [facility] 24077963251 108 (90 Base) Apr 25, Active 2 puffs as MCG/ACT 2019 needed Inhalation every 6 hrs PRN COugh, Wheezing or shortness of breath Estrace [facility] 89653183099 0.1 MG/GM Active as directed Vaginal twice weekly Trazodone HCl [facility] 27326588764 100 MG Orally Active 1 tablet at Once a day bedtime Neurontin [facility] 63030500089 300 MG Orally Active 1 capsule Once a day before bedtime Citalopram [facility] 49525401923 40 MG Orally Active 1 tablet Hydrobromide Once a day Results No Known Results Summary Purpose eClinicalWorks Submission
--- NOTE | 2019-04-20 16:53 | ER ---
Nurse's Notes [facility] Name: Isadora Bettencourt Age: 73 yrs Sex: Female : 1945 Arrival Date: 04/20/2019 Time: 14:57 Bed 15 Private MD: Diagnosis: Candidal Rash;Chest pain, unspecified Presentation: 04/20 15:21 Presenting complaint: Patient states: I have ardon under my breasts from sweat and on ca1 my stomach. I've had them for years but it has gotten really bad right now that it look like I scalded myself. Transition of care: patient was not received from another setting of care. Onset of symptoms was April 20, 2019. Risk Assessment: Do you want to hurt yourself or someone else? Patient reports no desire to harm self or others. Initial Sepsis Screen: Does the patient meet any 2 criteria? No. Patient's initial sepsis screen is negative. Does the patient have a suspected source of infection? No. Patient's initial sepsis screen is negative. Care prior to arrival: None. 15:21 Method Of Arrival: Wheelchair ca1 15:21 Acuity: FRANDY 4 ca1 Historical: - Allergies: 15:25 No Known Allergies; ca1 - Home Meds: 15:25 None [Active]; ca1 - PMHx: 15:25 Hypertension; Anxiety; ca1 - PSHx: 15:25 Cholecystectomy; Appendectomy; Hysterectomy; ca1 - Immunization history:: Adult Immunizations up to date, Pneumococcal vaccine status is unknown, Flu vaccine is not up to date. - Coronavirus screen:: The patient has NOT traveled to [place] in the past 14 days. The patient has NOT had contact with known/suspected case of Coronavirus?. - Social history:: Smoking status: Patient denies any tobacco usage or history of. - Ebola Screening: : Patient negative for fever greater than or equal to 101.5 degrees Fahrenheit, and additional compatible Ebola Virus Disease symptoms Patient denies exposure to infectious person Patient denies travel to an Ebola-affected area in the 21 days before illness onset No symptoms or risks identified at this time. Screenin:10 Abuse screen: Denies threats or abuse. Nutritional screening: No deficits noted. Tuberculosis screening: No symptoms or risk factors identified. Fall Risk None identified. Assessment: 15:32 Reassessment: Pt reported chest pain at triage, on/off but cannot recall since when. ca1 EKG done at triage. Result shown to provider. 16:03 General: Appears uncomfortable, Behavior is calm, cooperative, appropriate for age. Pain: Complains of pain in Pt reports pain and discomfort under bilateral breast and groin area Pain does not radiate. Pain at worst was 10 out of 10 on a pain scale. Quality of pain is described as burning, Pain began unknown, she states that she deals with this on and off and it never goes away Is intermittent, Alleviated by nothing. Aggravated by sweating and clothes. Neuro: Level of Consciousness is awake, alert, obeys commands, Oriented to person, place, time, [employer] are equal bilaterally Gait is steady, Speech is normal, Facial symmetry appears normal. Cardiovascular: Heart tones S1 S2 present Capillary refill < 3 seconds Patient's skin is warm and dry. Pulses are palpable in right radial artery, right dorsalis pedis artery, left radial artery and left dorsalis pedis artery. Respiratory: Airway is patent Respiratory effort is even, unlabored, Respiratory pattern is regular, symmetrical, Breath sounds are clear bilaterally. GI: Abdomen is non-distended, Bowel sounds present X 4 quads. Abd is non tender. : No signs and/or symptoms were reported regarding the genitourinary system. EENT: No signs and/or symptoms were reported regarding the EENT system. Derm: Rash noted that is Pt has redness noted under bilateral breast and her groin area. Musculoskeletal: Circulation, motion, and sensation intact. Capillary refill < 3 seconds. Vital Signs: 15:25 BP 145 / 84; Pulse 86; Resp 16 S; Temp 98.8(O); Pulse Ox 97% on R/A; Weight 81.65 kg ca1 (R); Height 5 ft. 1 in. (154.94 cm) (R); Pain 7/10; 15:25 Body Mass Index 34.01 (81.65 kg, 154.94 cm) ca1 ED Course: 14:57 Patient arrived in ED. as 15:22 Triage completed. ca1 15:25 Arm band placed on right wrist. [facility] 15:46 Robert Saunders PA is PHCP. [facility] 15:46 Hollis Paz MD is Attending Physician. [facility] 15:50 Lory Mclean, RN is Primary Nurse. 16:11 Patient has correct armband on for positive identification. Placed in gown. Bed in low ah position. Call light in reach. Side rails up X 1. 16:30 No provider procedures requiring assistance completed. Patient did not have IV access during this emergency room visit. Administered Medications: No medications were administered Outcome: 16:19 Discharge ordered by . elle 16:35 Discharged to home via wheelchair. 16:35 Condition: good 16:35 Discharge instructions given to patient, Instructed on discharge instructions, follow up and referral plans. medication usage, Demonstrated understanding of instructions, follow-up care, medications. 16:41 Patient left the ED. Signatures: Robert Saudners PA PA jmm Martinez, Amelia as Acob, Cheryl RN RN ca1 Lory Mclean RN RN Corrections: (The following items were deleted from the chart) 15:25 15:25 BP 145 / 84; Pulse 86bpm; Resp 16bpm; Spontaneous; Pulse Ox 97% RA; Temp 98.8F ca1 Oral; 81.65 kg Reported; Height 5 ft. 1 in. Reported; BMI: 34.0; ca1
--- NOTE | 2019-04-20 16:54 | EDPHYS ---
Physician Documentation [facility] Name: Isadora Bettencourt Age: 73 yrs Sex: Female : 1945 Arrival Date: 04/20/2019 Time: 14:57 Bed 15 Private MD: ED Physician Hollis Paz HPI: 04/20 15:47 This 73 yrs old Female presents to ER via Wheelchair with complaints of Skin [facility] Problem. 15:47 The patient's rash thought to be caused by an unknown cause. The rash is located on the [facility] chest. Onset: The symptoms/episode began/occurred chronic. Associated signs and symptoms: Pertinent positives: burning sensation, itching, Pain Pertinent negatives: swelling of lips, swelling of throat, swelling of tongue, vomiting. This is a 73 year old female with a history of htn, anxiety, that presents to the ED with complaints of a chronic rash beneath both breasts which has worsened with increased pain. Patient also complains of ongoing chest wall pain. Denies fever, denies shortness of breath. . Historical: - Allergies: 15:25 No Known Allergies; ca1 - Home Meds: 15:25 None [Active]; ca1 - PMHx: 15:25 Hypertension; Anxiety; ca1 - PSHx: 15:25 Cholecystectomy; Appendectomy; Hysterectomy; ca1 - Immunization history:: Adult Immunizations up to date, Pneumococcal vaccine status is unknown, Flu vaccine is not up to date. - Coronavirus screen:: The patient has NOT traveled to [place] in the past 14 days. The patient has NOT had contact with known/suspected case of Coronavirus?. - Social history:: Smoking status: Patient denies any tobacco usage or history of. - Ebola Screening: : Patient negative for fever greater than or equal to 101.5 degrees Fahrenheit, and additional compatible Ebola Virus Disease symptoms Patient denies exposure to infectious person Patient denies travel to an Ebola-affected area in the 21 days before illness onset No symptoms or risks identified at this time. ROS: 15:47 Constitutional: Negative for fever, chills, and weight loss. jmm 15:47 Respiratory: Negative for shortness of breath, cough, wheezing, and pleuritic chest pain, Abdomen/GI: Negative for abdominal pain, nausea, vomiting, diarrhea, and constipation, Back: Negative for injury and pain. 15:47 Cardiovascular: Positive for chest pain, with movement. 15:47 Skin: Positive for rash. 15:47 All other systems are negative. Exam: 15:47 Constitutional: This is a well developed, well nourished patient who is awake, alert, jmm and in no acute distress. Head/Face: atraumatic. Eyes: EOMI, no conjunctival erythema appreciated ENT: Moist Mucus Membranes Neck: Trachea midline, Supple 15:47 Abdomen/GI: Non distended, soft Back: Normal ROM Skin: General appearance color normal MS/ Extremity: Moves all extremities, no obvious deformities appreciated, no edema noted to the lower extremities Neuro: Awake and alert, normal gait Psych: Behavior is normal, Mood is normal, Patient is cooperative and pleasant 15:47 Chest/axilla: Inspection: candidal rash noted beneath both breasts, Palpation: tenderness, that is moderate, that totally reproduces the patient's complaints. 15:47 Cardiovascular: Rate: normal, Rhythm: regular. 15:47 Respiratory: the patient does not display signs of respiratory distress, Respirations: normal, Breath sounds: are clear throughout. Vital Signs: 15:25 BP 145 / 84; Pulse 86; Resp 16 S; Temp 98.8(O); Pulse Ox 97% on R/A; Weight 81.65 kg ca1 (R); Height 5 ft. 1 in. (154.94 cm) (R); Pain 7/10; 15:25 Body Mass Index 34.01 (81.65 kg, 154.94 cm) ca1 MDM: 15:57 Patient medically screened. [facility] 16:17 Data reviewed: vital signs, nurses notes. Counseling: I had a detailed discussion with [facility] the patient and/or guardian regarding: the historical points, exam findings, and any diagnostic results supporting the discharge/admit diagnosis, the need for outpatient follow up, to return to the emergency department if symptoms worsen or persist or if there are any questions or concerns that arise at home. ED course: Patient's chest wall pain is reproduceable on palpation and has been ongoing for the past few days. Patient has no sob. Character of pain does not appear cardiac. Patient is advised to follow up with pcp tomorrow for reevaluation. Patient is given strict return precautions. patient understood and agrees with the plan of care. . 04/20 15:47 Order name: Gown patient; Complete Time: 16:[address] [facility] Administered Medications: No medications were administered Disposition: 18:58 Co-signature as Attending Physician, Hollis Paz MD I agree with the assessment and kdr plan of care. Disposition: 04/20/19 16:19 Discharged to Home. Impression: Candidal Rash, Chest pain, unspecified. - Condition is Stable. - Discharge Instructions: Chest Wall Pain, Rash. - Prescriptions for nystatin 100,000 unit/gram Topical ointment - apply 1 application by TOPICAL route 2 times per day; 1 bottle. Ultracet 37.5- 325 mg Oral Tablet - take 1 tablet by ORAL route every 6 hours - for up to 5 days; do not exceed 8 tablets per day.; 12 tablet. - Medication Reconciliation Form, Thank You Letter, Antibiotic Education, Prescription Opioid Use form. - Follow up: Private Physician; When: 1 - 2 days; Reason: Recheck today's complaints, Continuance of care, Re-evaluation by your physician. Signatures: Hollis Paz MD MD kdr Mickail, Joel, PA PA [facility] Dina Lindsey RN [facility] Lory Mclean RN RN Corrections: (The following items were deleted from the chart) 16:41 16:19 04/20/2019 16:19 Discharged to Home. Impression: Candidal Rash; Chest pain, ah unspecified. Condition is Stable. Forms are Medication Reconciliation Form, Thank You Letter, Antibiotic Education, Prescription Opioid Use. Follow up: Private Physician; When: 1 - 2 days; Reason: Recheck today's complaints, Continuance of care, Re-evaluation by your physician. [facility] 16:48 16:17 ED course: Patient's chest wall pain is reproduceable on palpation. Patient has [facility] no sob. Character of pain does not appear cardiac. Patient is given strict return precautions. patient understood and agrees with the plan of care. . [facility]
--- NOTE | 2019-04-21 13:37 | EKG ---
Test Date: 2019-04-20 Test Time: 15:33:31 Cell Support Operator: CARLOS MEASUREMENT RESULTS: Intervals: Rate: 79 MA: 156 QRSD: 130 QT: 402 QTc: 460 Faber: P: 51 MA: 156 QRS: 18 T: -64 INTERPRETIVE STATEMENTS: Normal sinus rhythm Nonspecific intraventricular block Cannot rule out Septal infarct, age undetermined T wave abnormality, consider inferior ischemia Abnormal ECG Compared to ECG 01/23/2019 16:44:45 T-wave abnormality now present Possible ischemia now present Myocardial infarct finding still present Electronically Signed On 04-21-19 13:36:17 [employer] by Rishi Mclean
== END 2019-04-20 16:41 | disposition home or self-care (01) ==
LOC: ER 14:56
DX: B37.9 Candidiasis, unspecified (principal); R07.9 Chest pain, unspecified; I10 Essential (primary) hypertension; F41.9 Anxiety disorder, unspecified
CPT/HCPCS: 93005; 99281

== ENCOUNTER 2019-05-02 13:27 | Inpatient (IN) | payer OTHER ==
--- OUTSIDE RECORDS SUMMARY | 2019-05-02 13:30 | XMS REPORT ---
:1945 Author [facility] [address] [place] [address] Care Team Providers Name Role Phone GAY QIU Unavailable Unavailable Problems This patient has no known problems. Allergies, Adverse Reactions, Alerts This patient has no known allergies or adverse reactions. Medications This patient has no known medications. Results Test Description Test Time Test Comments Text Results Atomic Results Result Comments PHOSPHORUS 2018-11-11 05:54:00 Test Item Value Reference Range Comments PHOSPHORUS (BEAKER) (test rlfv=048) 3.6 mg/dL 2.3-4.7 [id number] 05:54:00 Test Item Value Reference Range Comments MAGNESIUM (BEAKER) (test pyzf=048) 1.8 mg/dL 1.6-2.6 BASIC METABOLIC [id number] 05:54:00 Test Item Value Reference Range Comments SODIUM (BEAKER) (test 137 meq/L 136-145 xkxx=388) POTASSIUM (BEAKER) (test 3.8 meq/L 3.5-5.1 ppnf=366) CHLORIDE (BEAKER) (test 103 meq/L 98-107 nvus=178) CO2 (BEAKER) (test 28 meq/L 22-29 dvno=312) BLOOD UREA NITROGEN 10 mg/dL 7-21 (BEAKER) (test uvve=592) CREATININE (BEAKER) (test 0.75 mg/dL 0.57-1.25 evjv=703) GLUCOSE RANDOM (BEAKER) 113 mg/dL 70-105 (test mzkt=283) CALCIUM (BEAKER) (test 8.4 mg/dL 8.4-10.2 icdh=561) EGFR (BEAKER) (test 76 mL/min/1.73 sq m ESTIMATED GFR IS NOT tead=2339) ACCURATE CREATININE CLEARANCE IN PREDICTING GLOMERULAR FILTRATION RATE. ESTIMATED GFR IS NOT APPLICABLE FOR DIALYSIS PATIENTS. HEPATIC FUNCTION [id number] 05:54:00 Test Item Value Reference Range Comments TOTAL PROTEIN (BEAKER) (test nvrn=253) 6.7 gm/dL 6.0-8.3 ALBUMIN (BEAKER) (test rark=4674) 3.5 g/dL 3.5-5.0 BILIRUBIN TOTAL (BEAKER) (test rzbg=566) 0.5 mg/dL 0.2-1.2 BILIRUBIN DIRECT (BEAKER) (test gonl=926) 0.2 mg/dL 0.1-0.5 ALKALINE PHOSPHATASE (BEAKER) (test ihmc=152) 76 U/L 40-150 AST (SGOT) (BEAKER) (test olox=869) 17 U/L 5-34 ALT (SGPT) (BEAKER) (test wgnx=154) 12 U/L 6-55 CBC W/PLT COUNT & AUTO [id number] 05:43:00 Test Item Value Reference Range Comments WHITE BLOOD CELL COUNT (BEAKER) (test qver=063) 6.6 K/ L 3.5-10.5 RED BLOOD CELL COUNT (BEAKER) (test vzvr=430) 3.63 M/ L 3.93-5.22 HEMOGLOBIN (BEAKER) (test hjkf=164) 9.3 GM/DL 11.2-15.7 HEMATOCRIT (BEAKER) (test pcmw=044) 31.1 % 34.1-44.9 MEAN CORPUSCULAR VOLUME (BEAKER) (test xipz=516) 85.7 fL 79.4-94.8 MEAN CORPUSCULAR HEMOGLOBIN (BEAKER) (test 25.6 pg 25.6-32.2 ojzb=420) MEAN CORPUSCULAR HEMOGLOBIN CONC (BEAKER) (test 29.9 GM/DL 32.2-35.5 xyuo=668) RED CELL DISTRIBUTION WIDTH (BEAKER) (test 15.4 % 11.7-14.4 jcts=106) PLATELET COUNT (BEAKER) (test xgco=301) 157 K/CU MM 150-450 MEAN PLATELET VOLUME (BEAKER) (test pwzb=941) 10.5 fL 9.4-12.3 NUCLEATED RED BLOOD CELLS (BEAKER) (test 0 /100 WBC 0-0 lved=508) NEUTROPHILS RELATIVE PERCENT (BEAKER) (test 59 % oodu=469) LYMPHOCYTES RELATIVE PERCENT (BEAKER) (test 26 % laqz=808) MONOCYTES RELATIVE PERCENT (BEAKER) (test 11 % tnre=378) EOSINOPHILS RELATIVE PERCENT (BEAKER) (test 3 % msut=723) BASOPHILS RELATIVE PERCENT (BEAKER) (test 1 % jfqm=859) NEUTROPHILS ABSOLUTE COUNT (BEAKER) (test 3.91 K/ L 1.56-6.13 metn=985) LYMPHOCYTES ABSOLUTE COUNT (BEAKER) (test 1.72 K/ L 1.18-3.74 zouh=771) MONOCYTES ABSOLUTE COUNT (BEAKER) (test 0.72 K/ L 0.24-0.36 tobx=553) EOSINOPHILS ABSOLUTE COUNT (BEAKER) (test 0.22 K/ L 0.04-0.36 fijm=667) BASOPHILS ABSOLUTE COUNT (BEAKER) (test 0.04 K/ L 0.01-0.08 ykap=463) IMMATURE GRANULOCYTES-RELATIVE PERCENT (BEAKER) 0 % 0-1 (test eoiv=1907) PROTHROMBIN [id number] 05:42:00 Test Item Value Reference Range Comments PROTIME (BEAKER) (test jvgr=473) 13.0 seconds 11.9-14.2 INR (BEAKER) (test cjje=130) 1.0 <=5.9 Effective 08/03/2018: PT Reference Range ChangeNew: 11.9-14.2 Previous: 11.7- 14.7RECOMMENDED COUMADIN/WARFARIN INR THERAPY RANGESSTANDARD DOSE: 2.0-3.0 Includes: PROPHYLAXIS for venous thrombosis, systemic embolization; TREATMENT for venous thrombosis and/or pulmonary embolus.HIGH RISK: Target INR is2.5-3.5 for patients wiht mechanical heart valves.HEMOGLOBIN [id number] 07:50:00 Test Item Value Reference Range Comments HEMOGLOBIN A1C (BEAKER) (test kmwi=615) 7.1 % 4.3-6.1 [id number] 04:53:00 Test Item Value Reference Range Comments PHOSPHORUS (BEAKER) (test vwym=902) 3.2 mg/dL 2.3-4.7 [id number] 04:53:00 Test Item Value Reference Range Comments MAGNESIUM (BEAKER) (test nwyt=659) 1.8 mg/dL 1.6-2.6 BASIC METABOLIC [id number] 04:53:00 Test Item Value Reference Range Comments SODIUM (BEAKER) (test 139 meq/L 136-145 kdhs=659) POTASSIUM (BEAKER) (test 3.8 meq/L 3.5-5.1 gspz=387) CHLORIDE (BEAKER) (test 106 meq/L 98-107 kvik=612) CO2 (BEAKER) (test 27 meq/L 22-29 hbxr=763) BLOOD UREA NITROGEN 15 mg/dL 7-21 (BEAKER) (test znwy=506) CREATININE (BEAKER) (test 0.78 mg/dL 0.57-1.25 ogos=975) GLUCOSE RANDOM (BEAKER) 149 mg/dL 70-105 (test ugtl=472) CALCIUM (BEAKER) (test 8.5 mg/dL 8.4-10.2 oisk=634) EGFR (BEAKER) (test 73 mL/min/1.73 sq m ESTIMATED GFR IS NOT xbwj=6792) ACCURATE CREATININE CLEARANCE IN PREDICTING GLOMERULAR FILTRATION RATE. ESTIMATED GFR IS NOT APPLICABLE FOR DIALYSIS PATIENTS. HEPATIC FUNCTION [id number] 04:53:00 Test Item Value Reference Range Comments TOTAL PROTEIN (BEAKER) (test sdab=745) 6.9 gm/dL 6.0-8.3 ALBUMIN (BEAKER) (test qdnx=1915) 3.5 g/dL 3.5-5.0 BILIRUBIN TOTAL (BEAKER) (test mros=961) 0.7 mg/dL 0.2-1.2 BILIRUBIN DIRECT (BEAKER) (test zwkp=577) 0.2 mg/dL 0.1-0.5 ALKALINE PHOSPHATASE (BEAKER) (test mfbk=269) 81 U/L 40-150 AST (SGOT) (BEAKER) (test ycmm=918) 14 U/L 5-34 ALT (SGPT) (BEAKER) (test ufrc=086) 12 U/L 6-55 PROTHROMBIN [id number] 04:19:00 Test Item Value Reference Range Comments PROTIME (BEAKER) (test pqbx=777) 14.3 seconds 11.9-14.2 INR (BEAKER) (test qwxc=938) 1.2 <=5.9 Effective 08/03/2018: PT Reference Range ChangeNew: 11.9-14.2 Previous: 11.7- 14.7RECOMMENDED COUMADIN/WARFARIN INR THERAPY RANGESSTANDARD DOSE: 2.0-3.0 Includes: PROPHYLAXIS for venous thrombosis, systemic embolization; TREATMENT for venous thrombosis and/or pulmonary embolus.HIGH RISK: Target INR is2.5-3.5 for patients wiht mechanical heart valves.CBC W/PLT COUNT & AUTO [id number] 04:14:00 Test Item Value Reference Range Comments WHITE BLOOD CELL COUNT (BEAKER) (test zvlv=460) 8.5 K/ L 3.5-10.5 RED BLOOD CELL COUNT (BEAKER) (test thdi=376) 3.90 M/ L 3.93-5.22 HEMOGLOBIN (BEAKER) (test sjrn=890) 9.9 GM/DL 11.2-15.7 HEMATOCRIT (BEAKER) (test unqy=293) 33.2 % 34.1-44.9 MEAN CORPUSCULAR VOLUME (BEAKER) (test shts=509) 85.1 fL 79.4-94.8 MEAN CORPUSCULAR HEMOGLOBIN (BEAKER) (test 25.4 pg 25.6-32.2 tasw=124) MEAN CORPUSCULAR HEMOGLOBIN CONC (BEAKER) (test 29.8 GM/DL 32.2-35.5 yrdb=735) RED CELL DISTRIBUTION WIDTH (BEAKER) (test 15.6 % 11.7-14.4 azmp=315) PLATELET COUNT (BEAKER) (test jlgy=528) 210 K/CU MM 150-450 MEAN PLATELET VOLUME (BEAKER) (test zijb=758) 10.0 fL 9.4-12.3 NUCLEATED RED BLOOD CELLS (BEAKER) (test 0 /100 WBC 0-0 sqgg=446) NEUTROPHILS RELATIVE PERCENT (BEAKER) (test 68 % hxzd=739) LYMPHOCYTES RELATIVE PERCENT (BEAKER) (test 20 % rfpy=294) MONOCYTES RELATIVE PERCENT (BEAKER) (test 9 % rihl=773) EOSINOPHILS RELATIVE PERCENT (BEAKER) (test 3 % hfzo=682) BASOPHILS RELATIVE PERCENT (BEAKER) (test 0 % jpyx=589) NEUTROPHILS ABSOLUTE COUNT (BEAKER) (test 5.76 K/ L 1.56-6.13 felm=802) LYMPHOCYTES ABSOLUTE COUNT (BEAKER) (test 1.68 K/ L 1.18-3.74 nkaf=059) MONOCYTES ABSOLUTE COUNT (BEAKER) (test 0.80 K/ L 0.24-0.36 mkqj=097) EOSINOPHILS ABSOLUTE COUNT (BEAKER) (test 0.23 K/ L 0.04-0.36 htkt=707) BASOPHILS ABSOLUTE COUNT (BEAKER) (test 0.03 K/ L 0.01-0.08 xaep=127) IMMATURE GRANULOCYTES-RELATIVE PERCENT (BEAKER) 0 % 0-1 (test jhdo=8694) [id number] 14:44:00 Test Item Value Reference Range Comments LIPASE (BEAKER) (test fyts=893) 972 U/L 8-78 [id number] 13:06:00 Test Item Value Reference Range Comments PHOSPHORUS (BEAKER) (test qaip=175) 3.3 mg/dL 2.3-4.7 [id number] 13:06:00 Test Item Value Reference Range Comments MAGNESIUM (BEAKER) (test znag=132) 2.0 mg/dL 1.6-2.6 BASIC METABOLIC [id number] 13:06:00 Test Item Value Reference Range Comments SODIUM (BEAKER) (test 141 meq/L 136-145 tzcd=183) POTASSIUM (BEAKER) (test 4.3 meq/L 3.5-5.1 udni=796) CHLORIDE (BEAKER) (test 105 meq/L 98-107 crwl=285) CO2 (BEAKER) (test 26 meq/L 22-29 vhvz=735) BLOOD UREA NITROGEN 12 mg/dL 7-21 (BEAKER) (test spyx=511) CREATININE (BEAKER) (test 0.80 mg/dL 0.57-1.25 ldei=742) GLUCOSE RANDOM (BEAKER) 159 mg/dL 70-105 (test bkja=481) CALCIUM (BEAKER) (test 8.9 mg/dL 8.4-10.2 xsip=556) EGFR (BEAKER) (test 71 mL/min/1.73 sq m ESTIMATED GFR IS NOT wvgo=4575) ACCURATE CREATININE CLEARANCE IN PREDICTING GLOMERULAR FILTRATION RATE. ESTIMATED GFR IS NOT APPLICABLE FOR DIALYSIS PATIENTS. LIPID [id number] 13:06:00 Test Item Value Reference Range Comments TRIGLYCERIDES (BEAKER) (test bbwh=699) 210 mg/dL CHOLESTEROL (BEAKER) (test pdxi=652) 213 mg/dL HDL CHOLESTEROL (BEAKER) (test xdym=489) 56 mg/dL LDL CHOLESTEROL CALCULATED (BEAKER) (test 115 mg/dL afsp=995) Triglyceride Reference Range: Low Risk <150 Borderline 150- 199 High Risk 200-499 Very High Risk >=500Cholesterol Reference Range: Low Risk <200 Borderline 200-239 High Risk > 240HDL Cholesterol Reference Range: Low Risk >=60 High Risk <40LDL Cholesterol Reference Range: Optimal <100 Near Optimal 100-129 Borderline 130-159 High 160-189 Very High >=190HEPATIC FUNCTION [id number] 13:06:00 Test Item Value Reference Range Comments TOTAL PROTEIN (BEAKER) (test bewg=398) 8.2 gm/dL 6.0-8.3 ALBUMIN (BEAKER) (test ukzk=7552) 4.1 g/dL 3.5-5.0 BILIRUBIN TOTAL (BEAKER) (test vvmo=853) 0.5 mg/dL 0.2-1.2 BILIRUBIN DIRECT (BEAKER) (test rivh=635) 0.1 mg/dL 0.1-0.5 ALKALINE PHOSPHATASE (BEAKER) (test twgo=778) 94 U/L 40-150 AST (SGOT) (BEAKER) (test itpr=248) 17 U/L 5-34 ALT (SGPT) (BEAKER) (test xodf=843) 18 U/L 6-55 CBC W/PLT COUNT & AUTO [id number] 12:46:00 Test Item Value Reference Range Comments WHITE BLOOD CELL COUNT (BEAKER) (test qnrd=094) 11.1 K/ L 3.5-10.5 RED BLOOD CELL COUNT (BEAKER) (test gbuu=223) 4.27 M/ L 3.93-5.22 HEMOGLOBIN (BEAKER) (test vfxc=083) 11.0 GM/DL 11.2-15.7 HEMATOCRIT (BEAKER) (test oobe=348) 35.9 % 34.1-44.9 MEAN CORPUSCULAR VOLUME (BEAKER) (test yler=983) 84.1 fL 79.4-94.8 MEAN CORPUSCULAR HEMOGLOBIN (BEAKER) (test 25.8 pg 25.6-32.2 xctk=104) MEAN CORPUSCULAR HEMOGLOBIN CONC (BEAKER) (test 30.6 GM/DL 32.2-35.5 viou=322) RED CELL DISTRIBUTION WIDTH (BEAKER) (test 15.4 % 11.7-14.4 fijh=510) PLATELET COUNT (BEAKER) (test vvva=310) 233 K/CU MM 150-450 MEAN PLATELET VOLUME (BEAKER) (test rckh=423) 10.4 fL 9.4-12.3 NUCLEATED RED BLOOD CELLS (BEAKER) (test 0 /100 WBC 0-0 zyyw=741) NEUTROPHILS RELATIVE PERCENT (BEAKER) (test 81 % qsch=156) LYMPHOCYTES RELATIVE PERCENT (BEAKER) (test 12 % zlas=557) MONOCYTES RELATIVE PERCENT (BEAKER) (test 6 % supi=874) EOSINOPHILS RELATIVE PERCENT (BEAKER) (test 0 % dluo=297) BASOPHILS RELATIVE PERCENT (BEAKER) (test 0 % nedq=615) NEUTROPHILS ABSOLUTE COUNT (BEAKER) (test 9.05 K/ L 1.56-6.13 porj=848) LYMPHOCYTES ABSOLUTE COUNT (BEAKER) (test 1.34 K/ L 1.18-3.74 gnhh=505) MONOCYTES ABSOLUTE COUNT (BEAKER) (test 0.62 K/ L 0.24-0.36 mbzo=759) EOSINOPHILS ABSOLUTE COUNT (BEAKER) (test 0.04 K/ L 0.04-0.36 uvex=584) BASOPHILS ABSOLUTE COUNT (BEAKER) (test 0.02 K/ L 0.01-0.08 spcc=583) IMMATURE GRANULOCYTES-RELATIVE PERCENT (BEAKER) 0 % 0-1 (test gbnj=7168) PROTHROMBIN [id number] 12:39:00 Test Item Value Reference Range Comments PROTIME (BEAKER) (test qcnw=498) 13.4 seconds 11.9-14.2 INR (BEAKER) (test jkgr=419) 1.1 <=5.9 Effective 08/03/2018: PT Reference Range ChangeNew: 11.9-14.2 Previous: 11.7- 14.7RECOMMENDED COUMADIN/WARFARIN INR THERAPY RANGESSTANDARD DOSE: 2.0-3.0 Includes: PROPHYLAXIS for venous thrombosis, systemic embolization; TREATMENT for venous thrombosis and/or pulmonary embolus.HIGH RISK: Target INR is2.5-3.5 for patients wiht mechanical heart valves.
--- OUTSIDE RECORDS SUMMARY | 2019-05-02 13:31 | XMS REPORT ---
[...] Dosage System Date Date Clonidine HCl ND 48426742411 0.1 MG Orally Active 1 tablet at Once a day bedtime Metoprolol ND 96825100064 50 MG Orally Active 1 tablet with Tartrate Twice a day food Culturelle [facility] 26002548118 - Orally Active not defined Clotrimazole ND 96798337847 1 % Externally Active 1 application Twice a day to affected area Simvastatin ND 27123393722 20 MG Orally Active 1 tablet in Once a day the evening Zestoretic [facility] 01878614663 20-25 MG Orally Active 1 tablet Once a day Protonix [facility] 45648712483 40 MG Orally Active 1 tablet Twice a day Creon [facility] 29476400492 31958-52054 Active 1 cap UNIT Orally three times a day ProAir HFA [facility] 62613885892 108 (90 Base) Apr 25, Active 2 puffs as MCG/ACT 2019 needed Inhalation every 6 hrs PRN COugh, Wheezing or shortness of breath Estrace [facility] 91525683760 0.1 MG/GM Active as directed Vaginal twice weekly Trazodone HCl [facility] 00508262122 100 MG Orally Active 1 tablet at Once a day bedtime Neurontin [facility] 87648503702 300 MG Orally Active 1 capsule Once a day before bedtime Citalopram [facility] 54921094746 40 MG Orally Active 1 tablet Hydrobromide Once a day Results No Known Results Summary Purpose eClinicalWorks Submission
[2019-05-02] MEDS ORDERED: MORPHINE 4 MG/ML SYR ONE (14:24)
[2019-05-02] MEDS ORDERED: ONDANSETRON 4 MG/2 ML VIAL ONE ×2 (14:24→19:23)
[2019-05-02] MEDS ORDERED: NA CHLORIDE 0.9% 1,000 ML ONE (14:24)
--- NOTE | 2019-05-02 14:32 | RAD REPORT ---
EXAM DESCRIPTION: RAD - Chest Single View - 05/02/2019 2:15 pm CLINICAL HISTORY: Abdominal pain Chest pain. COMPARISON: Chest Single View dated 01/23/2019; Chest Single View dated 08/28/2018; Chest Single View dated 07/20/2018; Chest Single View dated 08/31/2017 FINDINGS: Portable technique limits examination quality. The lungs are grossly clear. The heart is mildly prominent in size. No displaced fractures. IMPRESSION: No acute intrathoracic process suspected.
[2019-05-02] MEDS ORDERED: ONDANSETRON 4 MG (ODT) TAB ONE (15:23)
[2019-05-02] MEDS ORDERED: PROMETHAZINE INJ 25 MG/ML AMP ONE (16:25)
[2019-05-02] MEDS ORDERED: FENTANYL CITR 100 MCG/2 ML ONE ×2 (16:26→19:22)
[2019-05-02] MEDS ORDERED: FAMOTIDINE 20 MG/2 ML VIAL IV ONE (16:26)
[2019-05-02 16:31] LABS: Basophils % 1.1 % (0-1.3); Hematocrit 37.3 % (36.0-45.0); Lymphocytes % 21.8 % (15.3-44.8); MPV 8.5 fL (7.6-11.3); RBC Red Blood Cell Count 4.79 M/uL (3.86-4.86)
[2019-05-02 16:32] LABS: Protime INR 1.05
[2019-05-02 16:58] LABS: ALT/SGPT 20 U/L (12-78); AST/SGOT 25 U/L (15-37); Albumin 3.3 g/dL (3.4-5.0); Alkaline Phosphatase 104 U/L (45-117); BUN Blood Urea Nitrogen 10 mg/dL (7-18); Bicarbonate 26 mmol/L (21-32); Bilirubin Direct < 0.1 mg/dL (0-0.2); Bilirubin Total 0.4 mg/dL (0.2-1.0); Glucose Level 152 mg/dL (74-106); Magnesium 2.4 mg/dL (1.8-2.4); NT PRO-BNP 860 pg/mL (<125); Potassium 4.9 mmol/L (3.5-5.1); Protein, Total 8.3 g/dL (6.4-8.2); Sodium Level 142 mmol/L (136-145); Troponin (Emerg Dept Use Only) < 0.02 ng/mL (0.0-0.045)
--- NOTE | 2019-05-02 17:07 | RAD REPORT ---
EXAM DESCRIPTION: CT - Abdomen Pelvis Wo Contrast - 05/02/2019 4:48 pm CLINICAL HISTORY: ABD PAIN COMPARISON: Abdomen Pelvis W Contrast dated 11/09/2018; Abdomen Pelvis Wo Contrast dated 10/05/2017 TECHNIQUE: Axial [address] imaging of the abdomen and pelvis was performed without IV contrast. No IV contrast was given because of allergy, abnormal renal function, patient refusal or physician re quest. No oral contrast given. All CT scans are performed using dose optimization technique as appropriate and may include automated exposure control or mA/KV adjustment according to patient size. FINDINGS: No suspicious findings in the lung bases. No pericardial thickening or effusion. Liver shows fatty infiltration pattern with no focal liver lesion identified. Pneumobilia is present similar to comparison. Gallbladder is absent. Splenomegaly or focal splenic finding. No biliary tree abnormal dilatation. Fullness in the head of the pancreas matches comparison imaging. Trace amount of stranding is seen ad jacent to the pancreas similar or less prominent than seen previously. The tail of the pancreas there is a 3.2 centimeter oval fairly well demarcated low-density mass. Trace amount of stranding is prese nt adjacent to the nearby adrenal gland. No hydronephrosis or suspicious renal mass. Fullness of the left renal pelvis matches comparison. Coa rse calcifications lower pole of the left kidney are stable back to September 2017. Isodense renal masses and pyelonephritis cannot be excluded in the absence of IV contrast. The urinary bladder is without s ignificant finding. No gastric dilatation or wall thickening. No duodenal abnormality seen. Remainder of the small bowel is unremarkable. No active colon process seen. Prominent sigmoid diverticulosis present. A large hiat al hernia is again noted with 30% of the stomach intrathoracic. No free air or pneumatosis. No additional areas outside of the pancreas with stranding. No mass or bulky lymphadenopathy. Disc and bony degenerative changes are present. Facet degenerative changes pronounced L4-S1. IMPRESSION: Patient has chronic pancreatitis changes evident with a 3 centimeter pancreatic tail mas s most likely a pseudocyst. Trace amount of stranding adjacent to the pancreas is present. This is less pronounced than seen prev iously. A mild pancreatitis is suspected. Overall assessment is limited in the absence of oral and IV contrast. Fatty infiltration of the liver. Stable pneumobilia. Full assessment is limited is the absence of IV contrast.
[2019-05-02 18:27] LABS: Lipase 589 U/L (73-393)
[2019-05-02] MEDS ORDERED: ONDANSETRON 4 MG/2 ML VIAL IV PRN (19:34)
[2019-05-02] MEDS ORDERED: ACETAMINOPHEN 500 MG TAB PO PRN (19:34)
[2019-05-02 22:29] VITALS: BMI 36.0
[2019-05-02] MEDS: NA CHLORIDE 0.9% 1,000 ML IV SCH (22:35)
--- NOTE | 2019-05-02 23:13 | ER ---
Nurse's Notes [facility] Name: Isadora Bettencourt Age: 73 yrs Sex: Female : 1945 Arrival Date: 05/02/2019 Time: 13:29 Bed 16 Private MD: Diagnosis: Abdominal and pelvic pain;Acute pancreatitis;Acute diastolic (congestive) heart failure Presentation: 05/02 13:31 Presenting complaint: Patient states: abd pain reports it to be her pancreatitis, pain sv started a couple of hours ago. Transition of care: patient was not received from another setting of care. Onset of symptoms was May 02, 2019. Care prior to arrival: None. 13:31 Method Of Arrival: Wheelchair sv 13:31 Acuity: FRANDY 3 sv 14:55 Risk Assessment: Do you want to hurt yourself or someone else? Patient reports no em desire to harm self or others. Initial Sepsis Screen: Does the patient meet any 2 criteria? No. Patient's initial sepsis screen is negative. Does the patient have a suspected source of infection? No. Patient's initial sepsis screen is negative. Triage Assessment: 13:31 General: Appears in no apparent distress. uncomfortable, Behavior is cooperative, sv appropriate for age, agitated. Pain: Complains of pain in abdomen. Neuro: Level of Consciousness is awake, alert, obeys commands. Respiratory: Respiratory effort is even, unlabored. 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 - Coronavirus screen:: The patient has NOT traveled to [place] in the past 14 days. Proceed with normal triage process as indicated. The patient has NOT had contact with known/suspected case of Coronavirus? Proceed with normal triage procedures. - Social history:: Smoking status: Patient denies any tobacco usage or history of. - Ebola Screening: : No symptoms or risks identified at this time. Screenin:15 Abuse screen: Denies threats or abuse. Nutritional screening: No deficits noted. em Tuberculosis screening: No symptoms or risk factors identified. Fall Risk None identified. Assessment: 14:10 General: Appears in no apparent distress. comfortable, Behavior is calm, cooperative, em Denies fever. Pain: Complains of pain in abdomen Pain currently is 9 out of 10 on a pain scale. Neuro: Level of Consciousness is awake, alert, obeys commands, Oriented to person, place, time, situation, Appropriate for age. Cardiovascular: Capillary refill < 3 seconds Patient's skin is warm and dry. Respiratory: Airway is patent Respiratory effort is even, unlabored, Respiratory pattern is regular, symmetrical. GI: Abdomen is flat, Reports nausea, vomiting. Derm: Skin is intact, is healthy with good turgor, Skin is pink, warm \T\ dry. Musculoskeletal: Capillary refill < 3 seconds, Range of motion: intact in all extremities. 14:54 Reassessment: unable to get IV access, provider and charge nurse notified. em 15:21 Reassessment: Patient appears in no apparent distress at this time. received verbal em order for PO zofran by Dr. Paz. 16:15 Reassessment: assisted Dr. Arroyo with an IV in the REJ. em 17:15 Reassessment: Patient appears in no apparent distress at this time. Patient and/or em family updated on plan of care and expected duration. Pain level reassessed. Patient is alert, oriented x 3, equal unlabored respirations, skin warm/dry/pink. 17:22 Reassessment: actively vomiting, provider notified, received new medication orders. em 18:16 Reassessment: Patient appears in no apparent distress at this time. Patient and/or em family updated on plan of care and expected duration. Pain level reassessed. Patient is alert, oriented x 3, equal unlabored respirations, skin warm/dry/pink. nausea improved, indigestion has improved, rates pain 6/10 Patient states feeling better. Patient states symptoms have improved. 19:10 General: Appears in no apparent distress. comfortable, Behavior is calm, cooperative, rr5 appropriate for age. 19:10 Pain: Complains of pain in right upper quadrant and left upper quadrant Pain does not rr5 radiate. Pain currently is 7 out of 10 on a pain scale. Quality of pain is described as aching, sharp, Pain began gradually, Is continuous. Neuro: Level of Consciousness is awake, alert, obeys commands, Oriented to person, place, time, situation, Appropriate for age. Cardiovascular: Capillary refill < 3 seconds Patient's skin is warm and dry. Respiratory: Airway is patent Respiratory effort is even, unlabored, Respiratory pattern is regular, symmetrical. GI: Abdomen is round non-distended, Reports upper abdominal pain, nausea. : No signs and/or symptoms were reported regarding the genitourinary system. EENT: No signs and/or symptoms were reported regarding the EENT system. Derm: Skin is intact, is healthy with good turgor, Skin is pink, warm \T\ dry. Musculoskeletal: Circulation, motion, and sensation intact. Capillary refill < 3 seconds. 19:10 Reassessment: for admission awaiting for room assignment. rr5 20:30 Reassessment: Patient appears in no apparent distress at this time. Patient and/or rr5 family updated on plan of care and expected duration. Pain level reassessed. Patient is alert, oriented x 3, equal unlabored respirations, skin warm/dry/pink. awaiting for room number. Patient states feeling better. Patient states symptoms have improved. 21:45 Reassessment: Patient appears in no apparent distress at this time. No changes from rr5 previously documented assessment. Patient is alert, oriented x 3, equal unlabored respirations, skin warm/dry/pink. for transfer to 4th floor. Vital Signs: 13:32 BP 159 / 88; Pulse 85; Resp 24; Temp 98.4(TE); Pulse Ox 98% ; Weight 81.65 kg; Height 5 sv ft. 1 in. (154.94 cm); Pain 9/10; 16:33 BP 186 / 86; Pulse 87; Resp 18; Pulse Ox 95% on R/A; Pain 9/10; em 17:49 BP 153 / 72; Pulse 72; Resp 18; Pulse Ox 98% on R/A; Pain 6/10; em 19:30 BP 120 / 79; Pulse 75; Resp 17; Temp 98.5; Pulse Ox 99% ; Pain 7/10; rr5 21:30 BP 152 / 76; Pulse 65; Resp 18; Temp 98.5; Pulse Ox 100% on R/A; mg2 13:32 Body Mass Index 34.01 (81.65 kg, 154.94 cm) sv ED Course: 13:29 Patient arrived in ED. as 13:31 Triage completed. sv 13:32 Arm band placed on. sv 13:42 Hollis Paz MD is Attending Physician. kdr 13:42 Fernando Hill, RN is Primary Nurse. em 14:02 Missed attempt(s): 22 gauge in left forearm. Bleeding controlled, band aid applied, tw2 catheter tip intact. 14:15 Patient has correct armband on for positive identification. Placed in gown. Bed in low em position. Call light in reach. Pulse ox on. NIBP on. 14:17 XRAY Chest (1 view) In Process Unspecified. EDMS 14:56 Missed attempt(s): 22 gauge in right forearm. antecubital area. mh5 15:12 Missed attempt(s): 22 gauge in left antecubital area. Bleeding controlled, band aid em applied, catheter tip intact. 16:48 CT Abd/Pelvis - Without Contrast In Process Unspecified. EDMS 17:20 Initial lab(s) drawn, by me, sent to lab. Inserted saline lock: 20 gauge in right EJ, em using aseptic technique. Blood collected. 18:56 Anatoliy Sosa MD is Hospitalizing Provider. kdr 21:15 Primary Nurse role handed off by Fernando Hill, RN ar5 21:36 No provider procedures requiring assistance completed. Patient admitted, IV remains in mg2 place. 21:40 Jeremiah Long, SHARMAINE is Primary Nurse. rr5 Administered Medications: 15:23 Drug: Zofran 4 mg Route: PO; em 16:22 Follow up: Response: No adverse reaction; Nausea unchanged em 16:27 Drug: Phenergan 12.5 mg Route: IVP; Site: right jugular; em 17:36 Follow up: Response: No adverse reaction em 16:27 Drug: NS 0.9% 500 ml Route: IV; Rate: bolus; Site: right jugular; em 19:09 Follow up: IV Status: Completed infusion; IV Intake: 500ml em 16:29 Drug: Pepcid 20 mg Route: IVP; Site: right jugular; em 17:30 Follow up: Response: No adverse reaction; Marked relief of symptoms em 16:30 Drug: fentaNYL (PF) 25 mcg Route: IVP; Site: right jugular; em 17:36 Follow up: Response: No adverse reaction; Marked relief of symptoms; Nausea is em decreased; RASS: Alert and Calm (0) 19:30 Drug: Zofran 4 mg {Note: right EJ.} Route: IVP; Site: Other; rr5 21:34 Follow up: Response: No adverse reaction mg2 19:32 Drug: fentaNYL (PF) 50 mcg {Note: rass 0 right EJ.} Route: IVP; Site: Other; rr5 21:34 Follow up: Response: No adverse reaction; RASS: Alert and Calm (0) mg2 Intake: 19:09 IV: 500ml; Total: 500ml. em Outcome: 18:57 Decision to Hospitalize by Provider. kdr 21:39 Admitted to Tele accompanied by tech, via wheelchair, room 422, with chart, Report mg2 called to SHARMAINE Ferguson 21:39 Condition: stable 21:39 Instructed on the need for admit, Demonstrated understanding of instructions. 21:55 Patient left the ED. mg2 Signatures: Dispatcher [employer] Rosa Elena Galvan, RN SHARMAINE Hollis Paz MD MD kdr Munoz, Edgar, RN RN em Ann Marie Lacey Tara, RN RN 2 Caren Lacey [facility] Roger Paul RN RN [facility] Jeremiah Long RN RN rr5 Blanche Carcamo ar5 Corrections: (The following items were deleted from the chart) 21:57 20:30 Reassessment: Patient appears in no apparent distress at this time. No changes rr5 from previously documented assessment. Patient is alert, oriented x 3, equal unlabored respirations, skin warm/dry/pink. awaiting for room number. rr5
--- NOTE | 2019-05-02 23:13 | EDPHYS ---
Physician Documentation [facility] Name: Isadora Bettencourt Age: 73 yrs Sex: Female : 1945 Arrival Date: 05/02/2019 Time: 13:29 Bed 16 Private MD: ED Physician Hollis Paz HPI: 05/02 19:15 This 73 yrs old Female presents to ER via Wheelchair with complaints of kdr Pancreatitis. 19:15 The patient presents with abdominal pain in the epigastric area, in the upper abdomen. kdr Onset: The symptoms/episode began/occurred suddenly, 3 hour(s) ago. The symptoms do not radiate. Associated signs and symptoms: Pertinent positives: nausea, Pertinent negatives: blood in stools, chest pain, constipation, diarrhea, dysuria, fever, headache, hematuria, vomiting, vomiting blood. The symptoms are described as achy, burning, crampy, steady. Modifying factors: The symptoms are alleviated by nothing, the symptoms are aggravated by food, movement. Severity of pain: At its worst the pain was mild moderate just prior to arrival, in the emergency department the pain is unchanged. The patient has experienced similar episodes in the past, multiple times. The patient has not recently seen a physician. 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 - Coronavirus screen:: The patient has NOT traveled to [place] in the past 14 days. Proceed with normal triage process as indicated. The patient has NOT had contact with known/suspected case of Coronavirus? Proceed with normal triage procedures. - Social history:: Smoking status: Patient denies any tobacco usage or history of. - Ebola Screening: : No symptoms or risks identified at this time. ROS: 19:15 Constitutional: Negative for fever, chills, and weight loss, Eyes: Negative for injury, kdr pain, redness, and discharge, ENT: Negative for injury, pain, and discharge, Neck: Negative for injury, pain, and swelling, Cardiovascular: Negative for chest pain, palpitations, and edema, Respiratory: Negative for shortness of breath, cough, wheezing, and pleuritic chest pain, Back: Negative for injury and pain, : Negative for injury, bleeding, discharge, and swelling, MS/Extremity: Negative for injury and deformity, Skin: Negative for injury, rash, and discoloration, Neuro: Negative for headache, weakness, numbness, tingling, and seizure activity. Psych: Negative for depression, anxiety, suicide ideation, homicidal ideation, and hallucinations, Allergy/Immunology: Negative for hives, rash, and allergies, Endocrine: Negative for neck swelling, polydipsia, polyuria, polyphagia, and marked weight changes, Hematologic/Lymphatic: Negative for swollen nodes, abnormal bleeding, and unusual bruising. 19:15 Abdomen/GI: Positive for abdominal pain, nausea, Negative for constipation, abdominal kdr cramps, abdominal distension, black/tarry stool, rectal pain, rectal bleeding, bowel incontinence. Exam: 19:15 Constitutional: This is a well developed, well nourished patient who is awake, alert, kdr and in no acute distress. Head/Face: Normocephalic, atraumatic. Eyes: Pupils equal round and reactive to light, extra-ocular motions intact. Lids and lashes normal. Conjunctiva and sclera are non-icteric and not injected. Cornea within normal limits. Periorbital areas with no swelling, redness, or edema. Neck: Trachea midline, no thyromegaly or masses palpated, and no cervical lymphadenopathy. Supple, full range of motion without nuchal rigidity, or vertebral point tenderness. No Meningismus. Chest/axilla: Normal chest wall appearance and motion. Nontender with no deformity. No lesions are appreciated. Cardiovascular: Regular rate and rhythm with a normal S1 and S2. No gallops, murmurs, or rubs. Normal PMI, no JVD. No pulse deficits. Back: No spinal tenderness. No costovertebral tenderness. Full range of motion. Skin: Warm, dry with normal turgor. Normal color with no rashes, no lesions, and no evidence of cellulitis. MS/ Extremity: Pulses equal, no cyanosis. Neurovascular intact. Full, normal range of motion. Neuro: Awake and alert, GCS 15, oriented to person, place, time, and situation. Cranial nerves II-XII grossly intact. Motor strength 5/5 in all extremities. Sensory grossly intact. Cerebellar exam normal. Normal gait. Psych: Awake, alert, with orientation to person, place and time. Behavior, mood, and affect are within normal limits. 19:15 Respiratory: the patient does not display signs of respiratory distress, Respirations: normal, Breath sounds: rales, that are mild, are scattered. 19:15 Abdomen/GI: Inspection: obese Bowel sounds: active, all quadrants, Palpation: soft, mild abdominal tenderness, in the right upper quadrant and left upper quadrant, mass, is not appreciated, rebound tenderness, is not appreciated. Vital Signs: 13:32 BP 159 / 88; Pulse 85; Resp 24; Temp 98.4(TE); Pulse Ox 98% ; Weight 81.65 kg; Height 5 sv ft. 1 in. (154.94 cm); Pain 9/10; 16:33 BP 186 / 86; Pulse 87; Resp 18; Pulse Ox 95% on R/A; Pain 9/10; em 17:49 BP 153 / 72; Pulse 72; Resp 18; Pulse Ox 98% on R/A; Pain 6/10; em 19:30 BP 120 / 79; Pulse 75; Resp 17; Temp 98.5; Pulse Ox 99% ; Pain 7/10; rr5 21:30 BP 152 / 76; Pulse 65; Resp 18; Temp 98.5; Pulse Ox 100% on R/A; mg2 13:32 Body Mass Index 34.01 (81.65 kg, 154.94 cm) sv MDM: 18:57 Patient medically screened. kdr 19:15 Data reviewed: vital signs, nurses notes, lab test result(s), radiologic studies. kdr Counseling: I had a detailed discussion with the patient and/or guardian regarding: the historical points, exam findings, and any diagnostic results supporting the discharge/admit diagnosis, lab results, radiology results, the need for further work-up and treatment in the hospital. 05/02 13:47 Order name: Basic Metabolic Panel [facility] 05/02 13:47 Order name: CBC with Diff; Complete Time: 17:05 [facility] 05/02 13:47 Order name: LFT's kdr 05/02 13:47 Order name: Magnesium kdr 05/02 13:47 Order name: NT PRO-BNP [facility] 05/02 13:47 Order name: PT-INR; Complete Time: 17:05 [facility] 05/02 13:47 Order name: Troponin (emerg Dept Use Only) kdr 05/02 13:47 Order name: XRAY Chest (1 view); Complete Time: 17:05 kdr 05/02 16:34 Order name: CT Abd/Pelvis - Without Contrast kdr 05/02 17:36 Order name: Lipase kdr 05/02 17:37 Order name: Add On-Lab 05/02 13:47 Order name: EKG; Complete Time: 13:48 kdr 05/02 13:47 Order name: Cardiac monitoring; Complete Time: 18:26 kdr 05/02 13:47 Order name: EKG - Nurse/Tech; Complete Time: 18:26 kdr 05/02 13:47 Order name: IV Saline Lock; Complete Time: 18:25 kdr 05/02 13:47 Order name: Labs collected and sent; Complete Time: 14:59 kdr 05/02 13:47 Order name: O2 Per Protocol; Complete Time: 14:59 kdr 05/02 13:47 Order name: O2 Sat Monitoring; Complete Time: 14:59 kdr Administered Medications: 15:23 Drug: Zofran 4 mg Route: PO; em 16:22 Follow up: Response: No adverse reaction; Nausea unchanged em 16:27 Drug: Phenergan 12.5 mg Route: IVP; Site: right jugular; em 17:36 Follow up: Response: No adverse reaction em 16:27 Drug: NS 0.9% 500 ml Route: IV; Rate: bolus; Site: right jugular; em 19:09 Follow up: IV Status: Completed infusion; IV Intake: 500ml em 16:29 Drug: Pepcid 20 mg Route: IVP; Site: right jugular; em 17:30 Follow up: Response: No adverse reaction; Marked relief of symptoms em 16:30 Drug: fentaNYL (PF) 25 mcg Route: IVP; Site: right jugular; em 17:36 Follow up: Response: No adverse reaction; Marked relief of symptoms; Nausea is em decreased; RASS: Alert and Calm (0) 19:30 Drug: Zofran 4 mg {Note: right EJ.} Route: IVP; Site: Other; rr5 21:34 Follow up: Response: No adverse reaction mg2 19:32 Drug: fentaNYL (PF) 50 mcg {Note: rass 0 right EJ.} Route: IVP; Site: Other; rr5 21:34 Follow up: Response: No adverse reaction; RASS: Alert and Calm (0) mg2 Disposition: 05/02/19 18:57 Hospitalization ordered by Anatoliy Sosa for Inpatient Admission. Preliminary diagnosis are Abdominal and pelvic pain, Acute pancreatitis, Acute diastolic (congestive) heart failure. - Bed requested for Telemetry/MedSurg (Inpatient). - Status is Inpatient Admission. mg2 - Condition is Fair. - Problem is an acute exacerbation. - Symptoms have improved. Signatures: Dispatcher [employer] EDRosa Elena Jacobson, RN RN Nichol Coffman RN RN Hollis Paz MD MD [facility] Fernando Hill, RN SHARMAINE em Roger Paul, SHARMAINE SCHMID mg2 Jeremiah Long RN RN rr5 Corrections: (The following items were deleted from the chart) 18:57 18:57 Hospitalization Ordered by Anatoliy Sosa MD for Inpatient Admission. Preliminary kdr diagnosis is Abdominal and pelvic pain; Acute pancreatitis. Bed requested for Telemetry/MedSurg (Inpatient). Status is Inpatient Admission. Condition is Fair. Problem is an acute exacerbation. Symptoms have improved. [facility] 21:26 18:57 05/02/2019 18:57 Hospitalization Ordered by Anatoliy Sosa MD for Inpatient dw Admission. Preliminary diagnosis is Abdominal and pelvic pain; Acute pancreatitis; Acute diastolic (congestive) heart failure. Bed requested for Telemetry/MedSurg (Inpatient). Status is Inpatient Admission. Condition is Fair. Problem is an acute exacerbation. Symptoms have improved. kdr 21:55 21:26 05/02/2019 18:57 Hospitalization Ordered by Anatoliy Sosa MD for Inpatient mg2 Admission. Preliminary diagnosis is Abdominal and pelvic pain; Acute pancreatitis; Acute diastolic (congestive) heart failure. Bed requested for Telemetry/MedSurg (Inpatient). Status is Inpatient Admission. Condition is Fair. Problem is an acute exacerbation. Symptoms have improved. dw
[2019-05-02] MEDS: MORPHINE 4 MG/ML SYR IV PRN (23:30)
[2019-05-03] MEDS: MORPHINE 4 MG/ML SYR IV PRN (03:30)
[2019-05-03] MEDS: NA CHLORIDE 0.9% 1,000 ML IV SCH ×4 (03:41→23:25)
[2019-05-03 04:15] LABS: Absolute Lymphocytes (CBC) 2.7 K/uL (0.7-4.9); Basophils % 0.5 % (0-1.3); Hematocrit 36.3 % (36.0-45.0); Lymphocytes % 31.4 % (15.3-44.8); MPV 8.7 fL (7.6-11.3); RBC Red Blood Cell Count 4.56 M/uL (3.86-4.86)
[2019-05-03 04:34] LABS: Albumin 3.2 g/dL (3.4-5.0); Bilirubin Total 0.5 mg/dL (0.2-1.0); Phosphorus 2.8 mg/dL (2.5-4.9); Potassium 3.5 mmol/L (3.5-5.1); Protein, Total 7.6 g/dL (6.4-8.2)
[2019-05-03] MEDS ORDERED: SODIUM CHLORIDE 0.9% 10ML INJ IV PRN (04:35)
[2019-05-03] MEDS: PANTOPRAZOLE 40 MG INJ IVP SCH ×2 (04:51→20:33)
[2019-05-03] MEDS ORDERED: KCL 20 MEQ/100 mL IVPB 20 MEQ/100 ML BAG IV SCH (05:00)
[2019-05-03] MEDS ORDERED: PNEUMOCOCCAL VACCINE 0.5 ML IMVAC ONE (08:00)
[2019-05-03] MEDS ORDERED: INFLUENZA VACCINE (for 3y+) 0.5 ML DOSE IMVAC ONE (08:00)
--- NOTE | 2019-05-03 08:19 | EKG ---
Test Date: 2019-05-02 Test Time: 15:11:37 Vp Production: MEME MEASUREMENT RESULTS: Intervals: Rate: 84 TN: 158 QRSD: 134 QT: 418 QTc: 493 Logan: P: 59 TN: 158 QRS: -2 T: 149 INTERPRETIVE STATEMENTS: Sinus rhythm with occasional premature ventricular complexes Left bundle branch block Abnormal ECG Compared to ECG 04/20/2019 15:33:31 Ventricular premature complex(es) now present Left bundle-branch block now present Electronically Signed On 05-03-19 08:18:23 FINANCIAL INVESTMENT ADVISER by Rishi Mclean
[2019-05-03 08:28] LABS: Urine Appearance CLOUDY; Urine Blood TRACE (NEG); Urine Color DK YELLOW; Urine Glucose NEGATIVE (NEG); Urine Protein TRACE (NEG); Urine Urobilinogen 0.2 mg/dL (0.2-1.0)
--- NOTE | 2019-05-03 08:32 | RAD REPORT ---
EXAM DESCRIPTION: MRI - Cholangiogram - 05/03/2019 7:47 am CLINICAL HISTORY: Pancreatitis, abdominal pain COMPARISON: CT abdomen May 02, 2019 TECHNIQUE: Axial and coronal heavily T2 weighted sequences were obtained. Coronal T2 HASTE fat satur ation static and coronal multiplane reconstruction imaging generated and reviewed. Horizontal and maxime tical axis rotational views obtained using maximum intensity projection (MIP) protocol. FINDINGS: Pancreatic duct in the head and proximal body of the stomach is visualized and shows no in traluminal filling defect, stricture or mass. In the body and tail of the pancreas the pancreatic marco t is more difficult to visualize and much smaller in diameter. This corresponds to diminished overall pancreatic parenchymal volume. The presumed pseudocyst at the pancreatic tail is seen as a hyperinte nse T2 focus. No dilatation of the common bile duct. Small filling defects are present in the midportion of the casey e duct near the cystic duct junction. Small filling defects are present in the left lobe duct. These areas correspond to pneumobilia seen on the CT study. Pneumobilia is favored over choledocholithiasis . No stricture or mass evident. IMPRESSION: No biliary tree stones confirmed on this study. The filling defects in the biliary tree correspond to areas of pneumobilia as seen on the CT. It can be difficult to distinguish pneumobilia from choledocholithiasis. If there are continued karlene rns for duct stones, ERCP would be an alternative means for assessing the biliary tree.
[2019-05-03 08:40] LABS: Urine Microscopic Reflex ORDER UMIC
[2019-05-03 08:49] LABS: Urine Bilirubin NEGATIVE (NEG)
--- NOTE | 2019-05-03 08:56 | P.HP ---
Certification for Inpatient Patient admitted to: Inpatient With expected LOS: >2 Midnights Patient will require the following post-hospital care: None Practitioner: I am a practitioner with admitting privileges, knowledge of patient current condition, hospital course, and medical plan of care. Services: Services provided to patient in accordance with Admission requirements found in Title 42 Section 412.3 of the Code of Federal Regulations Patient History Date of Service: 05/02/19 Reason for admission: Acute pancreatitis History of Present Illness: Patient is a 73-year-old female who came to the hospital with epigastric tenderness. Patient has had frequent admissions to the hospital for similar complaints. She has been worked up on numerous occasions but the etiology of her pancreatitis is unknown. She follows up with a local GI physician. She has been worked up and was scheduled to get an ERCP and EGD in the near future. Clinically she appears to be doing better. Will go ahead and start her on some ice chips and may be advanced her to a clear liquid diet in the morning. Repeat lipase levels. Normally her lipase level is greater than 10,000. At this time, patient is doing well. Plan to monitor her labs closely. Await for GI input. Possibly advanced diet in the morning. Patient has a history of difficulty with IVs. She also has a history of hiatal hernia. She will need to follow up with surgery for evaluation for a TIF procedure as well as a MediPort placement. Allergies No Known Allergies Allergy (Unverified 05/02/19 22:32) Home Medications: Nystatin Oint [Mycostatin 100 Mu/Gm Oint*] 1 cem TOP BID 05/02/19 - Past Medical/Surgical History Has patient received pneumonia vaccine in the past: No Diabetic: No -: Chronic pancreatitis -: Gastroesophageal reflux disease w Hiatal hernia -: Esophageal spasm -: Attention deficit disorder -: Hypertension -: Depression with anxiety -: Hyperlipidemia -: Chronic pain -: Fatty liver, nonalcoholic -: Urinary incontinence/Nephrolithiasis -: Recurrent UTI -: Hysterectomy -: Cholecystectomy -: Appendectomy -: back surgery -: knee surgery -: foot surgery -: EGD/ERCP -: Cardiac catheterization, no stent Psychosocial/ Personal History: Patient lives at home - Family History Father Medical History: Diabetes Notes: Type 2 Mother Medical History: Diabetes Notes: Hypoglycemia Sister Notes: epilepsy - Social History Smoking Status: Former smoker Alcohol use: No CD- Drugs: No Caffeine use: Yes Place of Residence: Home Review of Systems 10-point ROS is otherwise unremarkable Physical Examination - Vital Signs Temperature: 97.5 F Blood Pressure: 136/65 Pulse: 79 Respirations: 16 Pulse Ox (%): 94 - Physical Exam General: Alert, In no apparent distress, Oriented x3 HEENT: Atraumatic, PERRLA, Mucous membr. moist/pink, EOMI, Sclerae nonicteric Neck: Supple, 2+ carotid pulse no bruit, No LAD, Without JVD or thyroid abnormality Respiratory: Clear to auscultation bilaterally, Normal air movement Cardiovascular: Regular rate/rhythm, Normal S1 S2, No murmurs Gastrointestinal: Normal bowel sounds, Soft and benign, Non-distended, No rebound, No guarding, Tenderness ( EPIGASTRIC TENDERNESS) Musculoskeletal: No clubbing, No swelling, No tenderness Integumentary: No rashes Neurological: Normal gait, Normal speech, Normal strength at 5/5 x4 extr, Normal tone, Sensation intact, Cranial nerves 3-12 intact, Normal affect Lymphatics: No axilla or inguinal lymphadenopathy - Studies Laboratory Data (last 24 hrs) 05/02/19 17:36: Lipase Cancelled 05/02/19 16:17: Lipase 588 H 05/02/19 16:17: PT 12.4, INR 1.05 05/02/19 16:17: WBC 9.2, Hgb 11.9 L, Hct 37.3, Plt Count 237 05/02/19 16:17: Sodium 142, Potassium 4.9, BUN 10, Creatinine 0.83, Glucose 152 H, Magnesium 2.4, Total Bilirubin 0.4, AST 25, ALT 20, Alkaline Phosphatase 104 , Lipase 589 H Assessment & Plan - Problems (Diagnosis) (1) Acute pancreatitis, unspecified Onset Date: 10/18/15 Current Visit: No Status: Acute (2) Fatty liver Onset Date: 08/31/17 Current Visit: No Status: Chronic (3) HTN (hypertension) Onset Date: 08/31/17 Current Visit: No Status: Chronic Qualifiers: (4) Hiatal hernia with GERD Onset Date: 08/31/17 Current Visit: No Status: Chronic (5) Hyperlipidemia Onset Date: 08/31/17 Current Visit: No Status: Chronic Qualifiers: - Plan PLAN: 1. IV HYDRATION 2. NPO 3. PAIN CONTROL 4. MONITOR LIPASE LEVEL WELL RENAL FUNCTION 5. PATIENT WILL GET A GI CONSULTATION. MAY NEED MRCP PENDING EVALUATION 6. STRICT BLOOD PRESSURE AND BLOOD SUGAR CONTROL 7. GI AND DVT PROPHYLAXIS Discharge Plan: Home Plan to discharge in: Greater than 2 days - Advance Directives Does patient have a Living Will: No Does patient have a Durable POA for Healthcare: No - Code Status/Comfort Care Code Status Assessed: Yes Code Status: Full Code Critical Care: No Time Spent Managing PTS Care (In Minutes): 45
[2019-05-03] MEDS: NYSTATIN OINT 15 GM TUBE TOP SCH ×3 (09:00→20:33)
[2019-05-03 09:08] LABS: Urine Bacteria 20-50 /HPF (<20); Urine RBC <5 /HPF (NONE SEEN)
[2019-05-03] MEDS: ENOXAPARIN 40 MG/0.4 ML SQ SCH (09:15)
--- NOTE | 2019-05-03 13:24 | P.PN ---
Subjective Date of Service: 05/03/19 Chief Complaint: Acute pancreatitis Stated her abdominal pain is better and wants to eat. MRCP results reviewed and reporting biliary duct filling defect which could be pneumobilia or stone. Liver enzymes are normal. Normal total bilirubin. Physical Examination - Vital Signs Temperature: 98.3 F Blood Pressure: 140/67 Pulse: 72 Respirations: 16 Pulse Ox (%): 94 - Physical Exam General: Alert, In no apparent distress, Oriented x3 HEENT: Mucous membr. moist/pink, Sclerae nonicteric Neck: Supple, JVD not distended Respiratory: Clear to auscultation bilaterally, Normal air movement Cardiovascular: No edema, Regular rate/rhythm, Normal S1 S2 Gastrointestinal: Normal bowel sounds, Soft and benign, Non-distended, No tenderness Musculoskeletal: No swelling, No erythema Integumentary: No rashes Neurological: Normal strength at 5/5 x4 extr - Studies Laboratory Data (last 24 hrs) 05/02/19 17:36: Lipase Cancelled 05/02/19 16:17: Lipase 588 H 05/02/19 16:17: PT 12.4, INR 1.05 05/02/19 16:17: WBC 9.2, Hgb 11.9 L, Hct 37.3, Plt Count 237 05/02/19 16:17: Sodium 142, Potassium 4.9, BUN 10, Creatinine 0.83, Glucose 152 H, Magnesium 2.4, Total Bilirubin 0.4, AST 25, ALT 20, Alkaline Phosphatase 104 , Lipase 589 H Assessment And Plan - Current Problems (Diagnosis) (1) Acute on chronic pancreatitis Onset Date: 08/13/16 Current Visit: No Status: Acute (2) Pancreatic pseudocyst Current Visit: Yes Status: Acute - Plan Continue supportive measures. Keep NPO until seen by GI. Serial lipase daily IV hydration Pain management and antiemetics as needed.
[2019-05-04 04:38] LABS: Potassium 3.7 mmol/L (3.5-5.1)
[2019-05-04] MEDS ORDERED: POTASSIUM CL SA 10 MEQ TAB PO ONE (05:13)
[2019-05-04] MEDS: NA CHLORIDE 0.9% 1,000 ML IV SCH (06:25)
[2019-05-04] MEDS: ENOXAPARIN 40 MG/0.4 ML SQ SCH (09:12)
[2019-05-04] MEDS: NYSTATIN OINT 15 GM TUBE TOP SCH ×2 (09:13→20:53)
[2019-05-04] MEDS: PANTOPRAZOLE 40 MG INJ IVP SCH ×2 (09:13→20:52)
[2019-05-04] MEDS: ALBUTEROL 2.5 MG/3 ML NEB SOL NEB SCH ×4 (09:51→19:54)
[2019-05-04] MEDS: IPRATROPIUM BROM 0.5MG/2.5ML NEB SCH ×4 (09:51→19:54)
--- NOTE | 2019-05-04 10:09 | EKG ---
Test Date: 2019-05-04 Test Time: 09:20:13 Chimney Mechanic: MEME MEASUREMENT RESULTS: Intervals: Rate: 84 IN: 156 QRSD: 136 QT: 418 QTc: 493 [place]: P: 40 IN: 156 QRS: -18 T: 170 INTERPRETIVE STATEMENTS: Normal sinus rhythm Left bundle branch block Abnormal ECG Compared to ECG 05/02/2019 15:11:37 Ventricular premature complex(es) no longer present Electronically Signed On 05-04-19 10:08:40 BULB ASSEMBLER by Artemio Bolivar
--- NOTE | 2019-05-04 11:40 | P.PN ---
Subjective Date of Service: 05/04/19 Chief Complaint: Acute pancreatitis Subjective: No new changes, Improving Review of Systems 10-point ROS is otherwise unremarkable Physical Examination - Vital Signs Temperature: 97.6 F Blood Pressure: 117/68 Pulse: 81 Respirations: 18 Pulse Ox (%): 97 - Physical Exam General: Alert, In no apparent distress HEENT: Atraumatic, Normocephalic Neck: Supple Respiratory: Clear to auscultation bilaterally Cardiovascular: Regular rate/rhythm, Normal S1 S2 Capillary refill: <2 Seconds Gastrointestinal: Soft and benign, W/out hepatosplenomegaly Musculoskeletal: No clubbing, No swelling Integumentary: No rashes Neurological: Normal speech, Normal strength at 5/5 x4 extr Lymphatics: No axilla or inguinal lymphadenopathy External genitalia: Deferred Rectal: Deferred - Studies Laboratory Last Values WBC 8.7 K/uL (4.3-10.9) 05/03/19 03:44 RBC 4.56 M/uL (3.86-4.86) 05/03/19 03:44 Hgb 11.7 g/dL (12.0-15.0) L 05/03/19 03:44 Hct 36.3 % (36.0-45.0) 05/03/19 03:44 MCV 79.6 fL (80-100) L 05/03/19 03:44 MCH 25.7 pg (27.0-35.0) L 05/03/19 03:44 MCHC 32.3 g/dL (32.0-36.0) 05/03/19 03:44 RDW 16.3 % (12.1-15.2) H 05/03/19 03:44 Plt Count 244 K/uL (152-406) 05/03/19 03:44 MPV 8.7 fL (7.6-11.3) 05/03/19 03:44 Neutrophils % 55.5 % (41.7-73.7) 05/03/19 03:44 Lymphocytes % 31.4 % (15.3-44.8) 05/03/19 03:44 Monocytes % 10.1 % (3.3-12.3) 05/03/19 03:44 Eosinophils % 2.5 % (0-4.4) 05/03/19 03:44 Basophils % 0.5 % (0-1.3) 05/03/19 03:44 Absolute Neutrophils 4.8 K/uL (1.8-8.0) 05/03/19 03:44 Absolute Lymphocytes 2.7 K/uL (0.7-4.9) 05/03/19 03:44 Absolute Monocytes 0.9 K/uL (0.1-1.3) 05/03/19 03:44 Absolute Eosinophils 0.2 K/uL (0-0.5) 05/03/19 03:44 Absolute Basophils 0.0 K/uL (0-0.5) 05/03/19 03:44 PT 12.4 SECONDS (9.5-12.5) 05/02/19 16:17 INR 1.05 05/02/19 16:17 Sodium 141 mmol/L (136-145) 05/04/19 03:37 Potassium 3.7 mmol/L (3.5-5.1) 05/04/19 03:37 Chloride 109 mmol/L (98-107) H 05/04/19 03:37 Carbon Dioxide 24 mmol/L (21-32) 05/04/19 03:37 BUN 9 mg/dL (7-18) 05/04/19 03:37 Creatinine 0.72 mg/dL (0.55-1.3) 05/04/19 03:37 Estimated GFR 80 mL/min (=/>90) L 05/04/19 03:37 Glucose 130 mg/dL (74-106) H 05/04/19 03:37 POC Glucose 126 mg/dl (65-120) H 05/02/19 21:51 Calcium 7.4 mg/dL (8.5-10.1) L 05/04/19 03:37 Phosphorus 2.8 mg/dL (2.5-4.9) 05/03/19 03:44 Magnesium 2.0 mg/dL (1.8-2.4) 05/03/19 03:44 Total Bilirubin 0.5 mg/dL (0.2-1.0) 05/03/19 03:44 Direct Bilirubin < 0.1 mg/dL (0-0.2) 05/02/19 16:17 AST 17 U/L (15-37) 05/03/19 03:44 ALT 18 U/L (12-78) 05/03/19 03:44 Alkaline Phosphatase 105 U/L (45-117) 05/03/19 03:44 Rapid Troponin I < 0.02 ng/mL (0.0-0.045) 05/02/19 16:17 NT-Pro-B Natriuret Pep 860 pg/mL (<125) H 05/02/19 16:17 Serum Total Protein 7.6 g/dL (6.4-8.2) 05/03/19 03:44 Albumin 3.2 g/dL (3.4-5.0) L 05/03/19 03:44 Globulin 4.4 g/dL (2.3-3.5) H D 05/03/19 03:44 Albumin/Globulin Ratio 0.7 (1.1-1.8) L 05/03/19 03:44 Triglycerides 243 mg/dL (<150) H 05/03/19 03:44 Cholesterol 177 mg/dL (<200) 05/03/19 03:44 LDL Cholesterol, Calc 75 (<130) 05/03/19 03:44 HDL Cholesterol 53 mg/dL (40-60) 05/03/19 03:44 Cholesterol/HDL Ratio 3.34 05/03/19 03:44 Lipase 288 U/L (73-393) 05/04/19 03:37 Urine Color Dk yellow 05/03/19 07:15 Urine Appearance Cloudy 05/03/19 07:15 Urine pH 5.0 (5.0-7.0) 05/03/19 07:15 Ur Specific [place] 1.020 (1.005-1.030) 05/03/19 07:15 Glucose (UA)(Auto) Negative (NEG) 05/03/19 07:15 Urine Ketones Negative (NEG) 05/03/19 07:15 Urine Blood Trace (NEG) H 05/03/19 07:15 Urine Nitrite Negative (NEG) 05/03/19 07:15 Urine Bilirubin Negative (NEG) 05/03/19 07:15 Urine Urobilinogen 0.2 mg/dL (0.2-1.0) 05/03/19 07:15 Ur Leukocyte Esterase 2+ (NEG) H 05/03/19 07:15 Urine RBC <5 /HPF (NONE SEEN) 05/03/19 07:15 Urine WBC >50 /HPF (<5) H 05/03/19 07:15 Ur Squamous Epith Cells 20-50 /HPF (NONE SEEN) H 05/03/19 07:15 Urine Bacteria 20-50 /HPF (<20) H 05/03/19 07:15 Urine Culture Reflexed Not needed 05/03/19 07:15 Urine Total Protein Trace (NEG) 05/03/19 07:15 Assessment & Plan - Problems (Diagnosis) (1) Acute on chronic pancreatitis Onset Date: 08/13/16 Current Visit: No Status: Acute (2) Acute pancreatitis, unspecified Onset Date: 10/18/15 Current Visit: No Status: Acute (3) Chest pain Onset Date: 11/16/16 Current Visit: No Status: Acute (4) Fatty liver Onset Date: 08/31/17 Current Visit: No Status: Chronic (5) HTN (hypertension) Onset Date: 08/31/17 Current Visit: No Status: Chronic Qualifiers: (6) Hyperlipidemia Onset Date: 08/31/17 Current Visit: No Status: Chronic Plan: Lipase trending down Pain is controlled well Started on clear liquid diet advance as tolerated Patient follows up with Dr. Smith as outpatient consultation Had previous ERCPs done Hypertriglyceridemia noted Discussed in detail with the patient regarding the CT and MRCP findings Liver enzymes trending down Possible Dc home in a.m. if tolerates p.o. Qualifiers: Time Spent Managing Pts Care (In Minutes): 42
[2019-05-05] MEDS: IPRATROPIUM BROM 0.5MG/2.5ML NEB SCH ×4 (00:25→11:58)
[2019-05-05] MEDS: ALBUTEROL 2.5 MG/3 ML NEB SOL NEB SCH ×4 (00:25→11:58)
[2019-05-05] MEDS: HYDRALAZINE HCL 20 MG/ML VIAL IV PRN ×2 (00:28→08:19)
[2019-05-05 05:33] LABS: Absolute Lymphocytes (CBC) 1.5 K/uL (0.7-4.9); Basophils % 0.3 % (0-1.3); Hematocrit 29.9 % (36.0-45.0); Lymphocytes % 28.1 % (15.3-44.8); MPV 8.9 fL (7.6-11.3)
[2019-05-05 05:38] LABS: Potassium 3.9 mmol/L (3.5-5.1)
[2019-05-05] MEDS ORDERED: POTASSIUM CL SA 10 MEQ TAB PO ONE (05:58)
[2019-05-05] MEDS: ENOXAPARIN 40 MG/0.4 ML SQ SCH (08:19)
[2019-05-05] MEDS: PANTOPRAZOLE 40 MG INJ IVP SCH (08:19)
[2019-05-05] MEDS: NYSTATIN OINT 15 GM TUBE TOP SCH (08:20)
[2019-05-05 10:02] VITALS: O2SAT 95
--- NOTE | 2019-05-05 11:04 | P.DS ---
Admission Date: 05/02/19 Discharge Date: 05/05/19 Disposition: ROUTINE DISCHARGE Discharge Condition: GOOD Reason for Admission: Acute pancreatitis - Problems (1) Acute on chronic pancreatitis Onset Date: 08/13/16 Current Visit: No Status: Acute (2) Acute pancreatitis, unspecified Onset Date: 10/18/15 Current Visit: No Status: Acute (3) Chest pain Onset Date: 11/16/16 Current Visit: No Status: Acute (4) Fatty liver Onset Date: 08/31/17 Current Visit: No Status: Chronic (5) HTN (hypertension) Onset Date: 08/31/17 Current Visit: No Status: Chronic Qualifiers: (6) Hyperlipidemia Onset Date: 08/31/17 Current Visit: No Status: Chronic Qualifiers: Brief History of Present Illness: 73-year-old female who came to the hospital with epigastric tenderness. Patient has had frequent admissions to the hospital for similar complaints. She has been worked up on numerous occasions but the etiology of her pancreatitis is unknown. She follows up with a local GI physician. She has been worked up and was scheduled to get an ERCP and EGD in the near future. Clinically she appears to be doing better. Will go ahead and start her on some ice chips and may be advanced her to a clear liquid diet in the morning. Repeat lipase levels. Normally her lipase level is greater than 10,000. At this time, patient is doing well. Plan to monitor her labs closely. Await for GI input. Possibly advanced diet in the morning. Hospital Course: She was admitted and was started on IV pain medications and IV fluids. has a past medical history of chronic pancreatitis with acute exacerbation. Had multiple ERCPs done with Dr. Smith . Monitored Lipase which is trending down .Pain is controlled well Started on clear liquid diet and advanced as tolerated Patient follows up with Dr. Smith as outpatient consultation Hypertriglyceridemia noted Discussed in detail with the patient regarding the CT and MRCP findings Liver enzymes trending down Possible Dc home in a.m. if tolerates p.o. Patient has a history of difficulty with IVs. She also has a history of hiatal hernia. She will need to follow up with surgery for evaluation for a TIF procedure as well as a MediPort placement. Vital Signs/Physical Exam: Temp Pulse Resp BP Pulse Ox 98.3 F 78 14 179/76 H 95 05/05/19 08:00 05/05/19 08:00 05/05/19 08:00 05/05/19 08:00 05/05/19 08:00 General: Alert, In no apparent distress HEENT: Atraumatic, Normocephalic Neck: Supple Respiratory: Clear to auscultation bilaterally, Normal air movement Cardiovascular: Normal pulses, Regular rate/rhythm Capillary refill: <2 Seconds Gastrointestinal: Soft and benign, W/out hepatosplenomegaly Musculoskeletal: No clubbing, No swelling Integumentary: No rashes Neurological: Normal speech, Normal strength at 5/5 x4 extr Lymphatics: No axilla or inguinal lymphadenopathy Laboratory Data at Discharge: WBC 5.2 K/uL (4.3-10.9) D 05/05/19 05:05 Hgb 9.7 g/dL (12.0-15.0) L 05/05/19 05:05 Hct 29.9 % (36.0-45.0) L D 05/05/19 05:05 Plt Count 158 K/uL (152-406) D 05/05/19 05:05 PT 12.4 SECONDS (9.5-12.5) 05/02/19 16:17 INR 1.05 05/02/19 16:17 Sodium 142 mmol/L (136-145) 05/05/19 05:05 Potassium 3.9 mmol/L (3.5-5.1) 05/05/19 05:05 BUN 8 mg/dL (7-18) 05/05/19 05:05 Creatinine 0.84 mg/dL (0.55-1.3) 05/05/19 05:05 Glucose 177 mg/dL (74-106) H 05/05/19 05:05 Phosphorus 2.8 mg/dL (2.5-4.9) 05/03/19 03:44 Magnesium 2.0 mg/dL (1.8-2.4) 05/03/19 03:44 Total Bilirubin 0.5 mg/dL (0.2-1.0) 05/03/19 03:44 AST 17 U/L (15-37) 05/03/19 03:44 ALT 18 U/L (12-78) 05/03/19 03:44 Alkaline Phosphatase 105 U/L (45-117) 05/03/19 03:44 Triglycerides 243 mg/dL (<150) H 05/03/19 03:44 Cholesterol 177 mg/dL (<200) 05/03/19 03:44 HDL Cholesterol 53 mg/dL (40-60) 05/03/19 03:44 Cholesterol/HDL Ratio 3.34 05/03/19 03:44 Lipase 395 U/L (73-393) H 05/05/19 05:05 Home Medications: Nystatin Oint [Mycostatin 100 Mu/Gm Oint*] 1 cem TOP BID 05/02/19 Amlodipine Besylate 10 mg PO DAILY #30 tablet 05/05/19 Pantoprazole [Protonix Tab] 40 mg PO DAILY #30 tab 05/05/19 carvediloL [Coreg] 6.25 mg PO BID #60 tab 05/05/19 New Medications: Amlodipine Besylate 10 mg PO DAILY #30 tablet carvediloL [Coreg] 6.25 mg PO BID #60 tab Pantoprazole [Protonix Tab] 40 mg PO DAILY #30 tab Diet: AHA Activity: Ad ange Followup: Solis Smith MD [ACTIVE - CAN ADMIT] - (call to schedule appointment) Dmitry Powell DO [Primary Care Provider] - (call to schedule appointment) Physician Review: Patient Assessed, Agree with Above Assessment and Plan Time spent managing pt's care (in minutes): 39
--- NOTE | 2019-05-05 11:40 | ECHO ---
HEIGHT: 5 ft 1 in WEIGHT: 190 lb 9.6 oz DATE OF STUDY: 05/05/[address]: Jaime Ayala DO 2-DIMENSIONAL: YES M.MODE: YES DOPPLER: YES COLOR FLOW: YES TDS: YES PORTABLE: DEFINITY: BUBBLE STUDY: DIAGNOSIS: CHEST PAIN CARDIAC HISTORY: CATHERIZATION: NO SURGERY: NO PROSTHETIC VALVE: NO PACEMAKER: NO MEASUREMENTS (cm) DIASTOLIC (NORMALS) SYSTOLIC (NORMALS) IVSd 1.1 (0.6-1.2) LA Diam 4.0 (1.9-4.0) LVEF 70% LVIDd 4.7 (3.5-5.7) LVIDs 2.9 (2.0-3.5) %FS 39% LVPWd 1.1 (0.6-1.2) Ao Diam 2.6 (2.0-3.7) 2 DIMENSIONAL ASSESSMENT: RIGHT ATRIUM: NORMAL LEFT ATRIUM: NORMAL RIGHT VENTRICLE: NORMAL LEFT VENTRICLE: NORMAL TRICUSPID VALVE: NORMAL MITRAL VALVE: NORMAL PULMONIC VALVE: NORMAL AORTIC VALVE: NORMAL PERICARDIAL EFFUSION: NONE AORTIC ROOT: NORMAL LEFT VENTRICULAR WALL MOTION: DOPPLER/COLOR FLOW: COMMENTS: NORMAL 2-DIMENSIONAL ECHOCARDIOGRAM WITH DOPPLER. NO WALL MOTION ABNORMALITY. NO EFFUSION. TECHNOLOGIST: VIRGINIA BRIMINGHAM
[2019-05-05 12:23] VITALS: BP 151/65; TEMP 98
== END 2019-05-05 15:07 | disposition home or self-care (01) | DRG 439 ==
LOC: ER 13:27 → ERHOLD 20:01 → 4TH 21:43
PROVIDERS: ADMIT Hospitalist; ATTEND Hospitalist
DX: K85.90 Acute pancreatitis without necrosis or infection, unspecified (principal); K86.3 Pseudocyst of pancreas; K76.0 Fatty (change of) liver, not elsewhere classified; I10 Essential (primary) hypertension; E78.5 Hyperlipidemia, unspecified; K21.9 Gastro-esophageal reflux disease without esophagitis; K44.9 Diaphragmatic hernia without obstruction or gangrene; Z23 Encounter for immunization
CPT/HCPCS: 36415; 71045; 74176; 74181; 80048; 80053; 80061; 80076; 81003; 81015; 82947; 83690; 83735; 83880; 84100; 84484; 85025; 85610; 90471; 90670; 93005; 93306; 94640; 96361; 96374; 96375; 99285; C9113; J0360; J1650; J2405; J2550; J3010; J7030; Q2035

== ENCOUNTER 2019-06-22 21:13 | Emergency (ER) | payer OTHER ==
--- OUTSIDE RECORDS SUMMARY | 2019-06-22 21:16 | XMS REPORT ---
:1945 Author Organization [facility] t Address [address] [place] [address] Care Team Providers Name Role Phone [facility] Unavailable Unavailable Problems Condition Condition Condition Status Onset Resolution Last Treatin g Comments Name Details Category Date Date Treatment Clinician Date Esophageal Esophageal Problem Active stenosis stenosis Benign Benign Diagnosis Active essential essential hypertensio hypertensio n n Hyperlipide Hyperlipide Problem Active francisco j, mixed francisco j, mixed Chronic Chronic Problem Active GERD GERD Vitamin D Vitamin D Problem Active deficiency deficiency Insomnia, Insomnia, Diagnosis Active unspecified unspecified type type Depression Depression Diagnosis Active with with anxiety anxiety Kidney Kidney Problem Active stone stone Chronic Chronic Problem Active pancreatiti pancreatiti s s Hiatal Hiatal Problem Active hernia hernia Chronic Chronic Problem Active gastritis gastritis without without bleeding, bleeding, unspecified unspecified gastritis gastritis type type Duodenitis Duodenitis Problem Active Mixed Mixed Problem Active stress and stress and urge urge urinary urinary incontinenc incontinenc e e Nonalcoholi Nonalcoholi Problem Active c fatty c fatty liver liver disease disease Ulcer of Ulcer of Problem Active esophagus esophagus without without bleeding bleeding Non Non Diagnosis Active compliance compliance w w medication medication regimen regimen History of History of Diagnosis Active fall within fall within past 90 past 90 days days Peripheral Peripheral Problem Active polyneuropa polyneuropa thy thy Allergies, Adverse Reactions, Alerts This patient has no known allergies or adverse reactions. Medications Ordered Filled Start Stop Current Ordering Indication Dosage Frequency Signature Comments Components Medication Medication Date Date Medication? Clinician (SIG) Name Name ProAir HFA ProAir HFA Yes Dmitry 2 puffs as 2-18 Powell needed 00:00: 00 Zestoretic Zestoretic Yes Dmitry 1 tablet 1-02 Powell 00:00: 00 Culturelle Culturelle Yes Dmitry not Powell defined Simvastatin Simvastatin Yes Dmitry 1 table t Powell in the evening Clotrimazol Clotrimazol Yes Dmitry 1 e e Powell applicatio n to affected area Protonix Protonix Yes Dmitry 1 tablet Powell Estrace Estrace Yes Dmitry as Powell directed Creon Creon Yes Dmitry 1 cap Powell Trazodone Trazodone Yes Dmitry 1 tablet HCl HCl Powell at bedtime Citalopram Citalopram Yes Dmitry 1 tablet Hydrobromid Hydrobromid Powell e e Neurontin Neurontin Yes Dmitry 1 capsule Powell before bedtime Clonidine Clonidine Yes Dmitry 1 tablet HCl HCl Powell at bedtime Metoprolol Metoprolol Yes Dmitry 1 tablet Tartrate Tartrate Powell with food Encounters Start End Encounter Admission Attending Care Care Encounter Date/Time Date/Time Type Type Clinicians Facility Department ID 2018-12-15 2018-12-15 [facility] [id number] 16:00:00 16:00:00 [facility] 2018-09-14 2018-09-14 [facility] [id number] 15:45:00 15:45:00 [facility] 2018-08-30 2018-08-30 [facility] [id number] 08:00:00 08:00:00 [facility] 2018-06-10 2018-06-10 [facility] [id number] 16:46:00 16:46:00 [facility] 2018-06-09 2018-06-09 [facility] [id number] 09:18:00 09:18:00 [facility] 2018-06-07 2018-06-07 [id number] 15:00:00 15:00:00 [facility] 2018-04-25 2018-04-25 [facility] [id number] 09:15:00 09:15:00 [facility] 2018-03-09 2018-03-09 [facility] [id number] 16:00:00 16:00:00 [facility] 2018-03-03 2018-03-03 [facility] [id number] 08:52:00 08:52:00 [facility] 2017-11-30 2017-11-30 [facility] [id number] 15:00:00 15:00:00 [facility] 2017-09-30 2017-09-30 [facility] [id number] 15:00:00 15:00:00 [facility]U [facility] 2017-09-29 2017-09-29 [facility] [id number] 10:13:00 10:13:00 [facility] 2017-09-28 2017-09-28 [facility] [id number] 14:00:00 14:00:00 [facility] Results Test Description Test Time Test Comments Text Results Atomic Results Result Comments PHOSPHORUS 2018-11-11 05:54:00 Test Item Value Reference Range Comments PHOSPHORUS (BEAKER) (test code = 604) 3.6 mg/dL 2.3-4.7 [id number] 05:54:00 Test Item Value Reference Range Comments MAGNESIUM (BEAKER) (test code = 627) 1.8 mg/dL 1.6-2.6 BASIC METABOLIC [id number] 05:54:00 Test Item Value Reference Range Comments SODIUM (BEAKER) (test 137 meq/L 136-145 code = 381) POTASSIUM (BEAKER) (test 3.8 meq/L 3.5-5.1 code = 379) CHLORIDE (BEAKER) (test 103 meq/L 98-107 code = 382) CO2 (BEAKER) (test code = 28 meq/L 22-29 355) BLOOD UREA NITROGEN 10 mg/dL 7-21 (BEAKER) (test code = 354) CREATININE (BEAKER) (test 0.75 mg/dL 0.57-1.25 code = 358) GLUCOSE RANDOM (BEAKER) 113 mg/dL 70-105 (test code = 652) CALCIUM (BEAKER) (test 8.4 mg/dL 8.4-10.2 code = 697) EGFR (BEAKER) (test code 76 mL/min/1.73 sq m EST IMATED GFR IS NOT = 1092) ACCURATE CREA TININE CLEARANCE IN PRE DICTING GLOMERULAR FILTR ATION RATE. ESTIMATED GFR IS NOT APPLICABLE F OR DIALYSIS PATIENT S. HEPATIC FUNCTION [id number] 05:54:00 Test Item Value Reference Range Comments TOTAL PROTEIN (BEAKER) (test code = 770) 6.7 gm/dL 6.0-8.3 ALBUMIN (BEAKER) (test code = 1145) 3.5 g/dL 3.5-5.0 BILIRUBIN TOTAL (BEAKER) (test code = 377) 0.5 mg/dL 0.2-1 .2 BILIRUBIN DIRECT (BEAKER) (test code = 706) 0.2 mg/dL 0.1- 0.5 ALKALINE PHOSPHATASE (BEAKER) (test code = 346) 76 U/L 40-150 AST (SGOT) (BEAKER) (test code = 353) 17 U/L 5-34 ALT (SGPT) (BEAKER) (test code = 347) 12 U/L 6-55 CBC W/PLT COUNT & AUTO [id number] 05:43:00 Test Item Value Reference Range Comments WHITE BLOOD CELL COUNT (BEAKER) (test code = 6.6 K/ L 3.5 -10.5 775) RED BLOOD CELL COUNT (BEAKER) (test code = 761) 3.63 M/ L 3.93-5.22 HEMOGLOBIN (BEAKER) (test code = 410) 9.3 GM/DL 11.2-15.7 HEMATOCRIT (BEAKER) (test code = 411) 31.1 % 34.1-44.9 MEAN CORPUSCULAR VOLUME (BEAKER) (test code = 85.7 fL 79 .4-94.8 753) MEAN CORPUSCULAR HEMOGLOBIN (BEAKER) (test code 25.6 pg 25.6-32.2 = 751) MEAN CORPUSCULAR HEMOGLOBIN CONC (BEAKER) (test 29.9 GM/DL 32.2-35.5 code = 752) RED CELL DISTRIBUTION WIDTH (BEAKER) (test code 15.4 % 11.7-14.4 = 412) PLATELET COUNT (BEAKER) (test code = 756) 157 K/CU MM 150-45 0 MEAN PLATELET VOLUME (BEAKER) (test code = 754) 10.5 fL 9.4-12.3 NUCLEATED RED BLOOD CELLS (BEAKER) (test code = 0 /100 WBC 0-0 413) NEUTROPHILS RELATIVE PERCENT (BEAKER) (test code 59 % = 429) LYMPHOCYTES RELATIVE PERCENT (BEAKER) (test code 26 % = 430) MONOCYTES RELATIVE PERCENT (BEAKER) (test code = 11 % 431) EOSINOPHILS RELATIVE PERCENT (BEAKER) (test code 3 % = 432) BASOPHILS RELATIVE PERCENT (BEAKER) (test code = 1 % 437) NEUTROPHILS ABSOLUTE COUNT (BEAKER) (test code = 3.91 K/ L 1.56-6.13 670) LYMPHOCYTES ABSOLUTE COUNT (BEAKER) (test code = 1.72 K/ L 1.18-3.74 414) MONOCYTES ABSOLUTE COUNT (BEAKER) (test code = 0.72 K/ L 0 .24-0.36 415) EOSINOPHILS ABSOLUTE COUNT (BEAKER) (test code = 0.22 K/ L 0.04-0.36 416) BASOPHILS ABSOLUTE COUNT (BEAKER) (test code = 0.04 K/ L 0 .01-0.08 417) IMMATURE GRANULOCYTES-RELATIVE PERCENT (BEAKER) 0 % 0-1 (test code = 2801) PROTHROMBIN [id number] 05:42:00 Test Item Value Reference Range Comments PROTIME (BEAKER) (test code = 759) 13.0 seconds 11.9-14.2 INR (BEAKER) (test code = 370) 1.0 <=5.9 Effective 08/03/2018: PT Reference Range ChangeNew: 11.9-14.2 Previous: 11.7- 14.7RECOMMENDED COUMADIN/WARFARIN INR THERAPY RANGESSTANDARD DOSE: 2.0-3.0 Includes: PROPHYLAXIS for venous thrombosis, systemic embolization; TREATMENT for venous thrombosis and/or pulmonary embolus.HIGH RISK: Target INR is2.5-3.5 for patients wiht mechanical heart valves.HEMOGLOBIN [id number] 07:50:00 Test Item Value Reference Range Comments HEMOGLOBIN A1C (BEAKER) (test code = 368) 7.1 % 4.3-6. 1 [id number] 04:53:00 Test Item Value Reference Range Comments PHOSPHORUS (BEAKER) (test code = 604) 3.2 mg/dL 2.3-4.7 [id number] 04:53:00 Test Item Value Reference Range Comments MAGNESIUM (BEAKER) (test code = 627) 1.8 mg/dL 1.6-2.6 BASIC METABOLIC [id number] 04:53:00 Test Item Value Reference Range Comments SODIUM (BEAKER) (test 139 meq/L 136-145 code = 381) POTASSIUM (BEAKER) (test 3.8 meq/L 3.5-5.1 code = 379) CHLORIDE (BEAKER) (test 106 meq/L 98-107 code = 382) CO2 (BEAKER) (test code = 27 meq/L 22-29 355) BLOOD UREA NITROGEN 15 mg/dL 7-21 (BEAKER) (test code = 354) CREATININE (BEAKER) (test 0.78 mg/dL 0.57-1.25 code = 358) GLUCOSE RANDOM (BEAKER) 149 mg/dL 70-105 (test code = 652) CALCIUM (BEAKER) (test 8.5 mg/dL 8.4-10.2 code = 697) EGFR (BEAKER) (test code 73 mL/min/1.73 sq m EST IMATED GFR IS NOT = 1092) ACCURATE CREA TININE CLEARANCE IN PRE DICTING GLOMERULAR FILTR ATION RATE. ESTIMATED GFR IS NOT APPLICABLE F OR DIALYSIS PATIENT S. HEPATIC FUNCTION [id number] 04:53:00 Test Item Value Reference Range Comments TOTAL PROTEIN (BEAKER) (test code = 770) 6.9 gm/dL 6.0-8.3 ALBUMIN (BEAKER) (test code = 1145) 3.5 g/dL 3.5-5.0 BILIRUBIN TOTAL (BEAKER) (test code = 377) 0.7 mg/dL 0.2-1 .2 BILIRUBIN DIRECT (BEAKER) (test code = 706) 0.2 mg/dL 0.1- 0.5 ALKALINE PHOSPHATASE (BEAKER) (test code = 346) 81 U/L 40-150 AST (SGOT) (BEAKER) (test code = 353) 14 U/L 5-34 ALT (SGPT) (BEAKER) (test code = 347) 12 U/L 6-55 PROTHROMBIN [id number] 04:19:00 Test Item Value Reference Range Comments PROTIME (BEAKER) (test code = 759) 14.3 seconds 11.9-14.2 INR (BEAKER) (test code = 370) 1.2 <=5.9 Effective 08/03/2018: PT Reference Range ChangeNew: 11.9-14.2 Previous: 11.7- 14.7RECOMMENDED COUMADIN/WARFARIN INR THERAPY RANGESSTANDARD DOSE: 2.0-3.0 Includes: PROPHYLAXIS for venous thrombosis, systemic embolization; TREATMENT for venous thrombosis and/or pulmonary embolus.HIGH RISK: Target INR is2.5-3.5 for patients wiht mechanical heart valves.CBC W/PLT COUNT & AUTO [id number] 04:14:00 Test Item Value Reference Range Comments WHITE BLOOD CELL COUNT (BEAKER) (test code = 8.5 K/ L 3.5 -10.5 775) RED BLOOD CELL COUNT (BEAKER) (test code = 761) 3.90 M/ L 3.93-5.22 HEMOGLOBIN (BEAKER) (test code = 410) 9.9 GM/DL 11.2-15.7 HEMATOCRIT (BEAKER) (test code = 411) 33.2 % 34.1-44.9 MEAN CORPUSCULAR VOLUME (BEAKER) (test code = 85.1 fL 79 .4-94.8 753) MEAN CORPUSCULAR HEMOGLOBIN (BEAKER) (test code 25.4 pg 25.6-32.2 = 751) MEAN CORPUSCULAR HEMOGLOBIN CONC (BEAKER) (test 29.8 GM/DL 32.2-35.5 code = 752) RED CELL DISTRIBUTION WIDTH (BEAKER) (test code 15.6 % 11.7-14.4 = 412) PLATELET COUNT (BEAKER) (test code = 756) 210 K/CU MM 150-45 0 MEAN PLATELET VOLUME (BEAKER) (test code = 754) 10.0 fL 9.4-12.3 NUCLEATED RED BLOOD CELLS (BEAKER) (test code = 0 /100 WBC 0-0 413) NEUTROPHILS RELATIVE PERCENT (BEAKER) (test code 68 % = 429) LYMPHOCYTES RELATIVE PERCENT (BEAKER) (test code 20 % = 430) MONOCYTES RELATIVE PERCENT (BEAKER) (test code = 9 % 431) EOSINOPHILS RELATIVE PERCENT (BEAKER) (test code 3 % = 432) BASOPHILS RELATIVE PERCENT (BEAKER) (test code = 0 % 437) NEUTROPHILS ABSOLUTE COUNT (BEAKER) (test code = 5.76 K/ L 1.56-6.13 670) LYMPHOCYTES ABSOLUTE COUNT (BEAKER) (test code = 1.68 K/ L 1.18-3.74 414) MONOCYTES ABSOLUTE COUNT (BEAKER) (test code = 0.80 K/ L 0 .24-0.36 415) EOSINOPHILS ABSOLUTE COUNT (BEAKER) (test code = 0.23 K/ L 0.04-0.36 416) BASOPHILS ABSOLUTE COUNT (BEAKER) (test code = 0.03 K/ L 0 .01-0.08 417) IMMATURE GRANULOCYTES-RELATIVE PERCENT (BEAKER) 0 % 0-1 (test code = 2801) [id number] 14:44:00 Test Item Value Reference Range Comments LIPASE (BEAKER) (test code = 749) 972 U/L 8-78 [id number] 13:06:00 Test Item Value Reference Range Comments PHOSPHORUS (BEAKER) (test code = 604) 3.3 mg/dL 2.3-4.7 [id number] 13:06:00 Test Item Value Reference Range Comments MAGNESIUM (BEAKER) (test code = 627) 2.0 mg/dL 1.6-2.6 BASIC METABOLIC [id number] 13:06:00 Test Item Value Reference Range Comments SODIUM (BEAKER) (test 141 meq/L 136-145 code = 381) POTASSIUM (BEAKER) (test 4.3 meq/L 3.5-5.1 code = 379) CHLORIDE (BEAKER) (test 105 meq/L 98-107 code = 382) CO2 (BEAKER) (test code = 26 meq/L 22-29 355) BLOOD UREA NITROGEN 12 mg/dL 7-21 (BEAKER) (test code = 354) CREATININE (BEAKER) (test 0.80 mg/dL 0.57-1.25 code = 358) GLUCOSE RANDOM (BEAKER) 159 mg/dL 70-105 (test code = 652) CALCIUM (BEAKER) (test 8.9 mg/dL 8.4-10.2 code = 697) EGFR (BEAKER) (test code 71 mL/min/1.73 sq m EST IMATED GFR IS NOT = 1092) ACCURATE CREA TININE CLEARANCE IN PRE DICTING GLOMERULAR FILTR ATION RATE. ESTIMATED GFR IS NOT APPLICABLE F OR DIALYSIS PATIENT S. LIPID [id number] 13:06:00 Test Item Value Reference Range Comments TRIGLYCERIDES (BEAKER) (test code = 540) 210 mg/dL CHOLESTEROL (BEAKER) (test code = 631) 213 mg/dL HDL CHOLESTEROL (BEAKER) (test code = 976) 56 mg/dL LDL CHOLESTEROL CALCULATED (BEAKER) (test code = 115 mg/dL 633) Triglyceride Reference Range: Low Risk <150 Borderline 150-199 High Risk 200-499 Very High Risk >=500Cholesterol Reference Range: Low Risk <200 Borderline 200-239 High Risk >240HDL Cholesterol Reference Range: Low Risk >=60 High Risk <40LDL Cholesterol Reference Range: Optimal <100 Near Optimal 100-129 Borderline 130-159 High 160-189 Very High >=190HEPATIC FUNCTION [id number] 13:06:00 Test Item Value Reference Range Comments TOTAL PROTEIN (BEAKER) (test code = 770) 8.2 gm/dL 6.0-8.3 ALBUMIN (BEAKER) (test code = 1145) 4.1 g/dL 3.5-5.0 BILIRUBIN TOTAL (BEAKER) (test code = 377) 0.5 mg/dL 0.2-1 .2 BILIRUBIN DIRECT (BEAKER) (test code = 706) 0.1 mg/dL 0.1- 0.5 ALKALINE PHOSPHATASE (BEAKER) (test code = 346) 94 U/L 40-150 AST (SGOT) (BEAKER) (test code = 353) 17 U/L 5-34 ALT (SGPT) (BEAKER) (test code = 347) 18 U/L 6-55 CBC W/PLT COUNT & AUTO [id number] 12:46:00 Test Item Value Reference Range Comments WHITE BLOOD CELL COUNT (BEAKER) (test code = 11.1 K/ L 3.5 -10.5 775) RED BLOOD CELL COUNT (BEAKER) (test code = 761) 4.27 M/ L 3.93-5.22 HEMOGLOBIN (BEAKER) (test code = 410) 11.0 GM/DL 11.2-15.7 HEMATOCRIT (BEAKER) (test code = 411) 35.9 % 34.1-44.9 MEAN CORPUSCULAR VOLUME (BEAKER) (test code = 84.1 fL 79 .4-94.8 753) MEAN CORPUSCULAR HEMOGLOBIN (BEAKER) (test code 25.8 pg 25.6-32.2 = 751) MEAN CORPUSCULAR HEMOGLOBIN CONC (BEAKER) (test 30.6 GM/DL 32.2-35.5 code = 752) RED CELL DISTRIBUTION WIDTH (BEAKER) (test code 15.4 % 11.7-14.4 = 412) PLATELET COUNT (BEAKER) (test code = 756) 233 K/CU MM 150-45 0 MEAN PLATELET VOLUME (BEAKER) (test code = 754) 10.4 fL 9.4-12.3 NUCLEATED RED BLOOD CELLS (BEAKER) (test code = 0 /100 WBC 0-0 413) NEUTROPHILS RELATIVE PERCENT (BEAKER) (test code 81 % = 429) LYMPHOCYTES RELATIVE PERCENT (BEAKER) (test code 12 % = 430) MONOCYTES RELATIVE PERCENT (BEAKER) (test code = 6 % 431) EOSINOPHILS RELATIVE PERCENT (BEAKER) (test code 0 % = 432) BASOPHILS RELATIVE PERCENT (BEAKER) (test code = 0 % 437) NEUTROPHILS ABSOLUTE COUNT (BEAKER) (test code = 9.05 K/ L 1.56-6.13 670) LYMPHOCYTES ABSOLUTE COUNT (BEAKER) (test code = 1.34 K/ L 1.18-3.74 414) MONOCYTES ABSOLUTE COUNT (BEAKER) (test code = 0.62 K/ L 0 .24-0.36 415) EOSINOPHILS ABSOLUTE COUNT (BEAKER) (test code = 0.04 K/ L 0.04-0.36 416) BASOPHILS ABSOLUTE COUNT (BEAKER) (test code = 0.02 K/ L 0 .01-0.08 417) IMMATURE GRANULOCYTES-RELATIVE PERCENT (BEAKER) 0 % 0-1 (test code = 2801) PROTHROMBIN [id number] 12:39:00 Test Item Value Reference Range Comments PROTIME (BEAKER) (test code = 759) 13.4 seconds 11.9-14.2 INR (BEAKER) (test code = 370) 1.1 <=5.9 Effective 08/03/2018: PT Reference Range ChangeNew: 11.9-14.2 Previous: 11.7- 14.7RECOMMENDED COUMADIN/WARFARIN INR THERAPY RANGESSTANDARD DOSE: 2.0-3.0 Includes: PROPHYLAXIS for venous thrombosis, systemic embolization; TREATMENT for venous thrombosis and/or pulmonary embolus.HIGH RISK: Target INR is2.5-3.5 for patients wiht mechanical heart valves.
--- OUTSIDE RECORDS SUMMARY | 2019-06-22 21:16 | XMS REPORT ---
:1945 Author Organization [employer] Care Team Providers Name Role Phone Andre Dmitry Provider Role Unavailable Allergies, Adverse Reactions, Alerts Substance Reaction Event Type N.K.D.A. Info Not Available Non Drug Allergy Problems Problem Type Condition Code Onset Dates Condition Statu s Assessment History of fall within past 90 [...] I10 Active Problem Insomnia, unspecified type G47.00 A ctive Problem Chronic GERD K21.9 Active Assessment Peripheral polyneuropathy G62.9 Ac tive Assessment Mixed stress and urge urinary N39.46 Active incontinence Problem Peripheral polyneuropathy G62.9 Ac tive Assessment Chronic pancreatitis K86.1 Active Problem Hiatal hernia K44.9 Active Problem Depression with anxiety F41.8 Acti ve Problem Vitamin D deficiency E55.9 Active Problem Chronic pancreatitis K86.1 Active Assessment Benign essential hypertension I10 Active Assessment Insomnia, unspecified type G47.00 A ctive Assessment Depression with anxiety F41.8 Acti ve Problem Duodenitis K29.80 Active Problem Mixed stress and urge urinary N39.46 Active incontinence Problem Nonalcoholic fatty liver disease K76.0 Active Problem Chronic gastritis without bleeding, K29.50 Active unspecified gastritis type Medications Medication Code Code Instructions Start End Status Dosage System Date Date Clonidine HCl [facility] 86352015083 0.1 MG Orally Active 1 tablet at Once a day bedtime Metoprolol [facility] 07500609597 50 MG Orally Active 1 ta blet with Tartrate Twice a day food Culturelle [facility] 33766052531 - Orally Active not defi chad Clotrimazole [facility] 12564985424 1 % Externally Active 1 application Twice a day to affected area Simvastatin [facility] 75105799610 20 MG Orally Active 1 t ablet in Once a day the evening Zestoretic [facility] 16557495628 20-25 MG Orally Active 1 tablet Once a day Protonix [facility] 91742749470 40 MG Orally Active 1 tabl et Twice a day Creon [facility] 08467031727 89670-73016 Active 1 cap UNIT Orally three times a day ProAir HFA [facility] 19110653940 108 (90 Base) Apr 25, Active 2 p uffs as MCG/ACT 2019 needed Inhalation every 6 hrs PRN COugh, Wheezing or shortness of breath Estrace [facility] 73489352940 0.1 MG/GM Active as directe d Vaginal twice weekly Trazodone HCl [facility] 94631689217 100 MG Orally Active 1 tablet at Once a day bedtime Neurontin [facility] 21784420211 300 MG Orally Active 1 ca psule Once a day before bedtime Citalopram [facility] 71543388835 40 MG Orally Active 1 ta blet Hydrobromide Once a day Results No Known Results Summary Purpose [employer] Submission
[2019-06-22 22:26] LABS: Absolute Lymphocytes (CBC) 1.8 K/uL (0.7-4.9); Basophils % 0.8 % (0-1.3); Hematocrit 36.9 % (36.0-45.0); Lymphocytes % 23.3 % (15.3-44.8); MPV 8.7 fL (7.6-11.3)
[2019-06-22] MEDS ORDERED: HYDROMORPHONE HCL 1 MG/ML INJ ONE (22:26)
[2019-06-22] MEDS ORDERED: NA CHLORIDE 0.9% 2,000 ML ONE (22:26)
[2019-06-22] MEDS ORDERED: PROMETHAZINE INJ 25 MG/ML AMP ONE (22:26)
[2019-06-22 22:27] LABS: Protime INR 1.04
[2019-06-22 22:42] LABS: ALT/SGPT 21 U/L (12-78); AST/SGOT 15 U/L (15-37); Albumin 3.3 g/dL (3.4-5.0); Alkaline Phosphatase 90 U/L (45-117); BUN Blood Urea Nitrogen 12 mg/dL (7-18); Bicarbonate 28 mmol/L (21-32); Bilirubin Direct 0.1 mg/dL (0-0.2); Bilirubin Total 0.5 mg/dL (0.2-1.0); Glucose Level 196 mg/dL (74-106); Lipase 188 U/L (73-393); Magnesium 2.5 mg/dL (1.8-2.4); NT PRO-BNP 258 pg/mL (<125); Potassium 3.8 mmol/L (3.5-5.1); Protein, Total 7.6 g/dL (6.4-8.2); Sodium Level 139 mmol/L (136-145); Troponin (Emerg Dept Use Only) < 0.02 ng/mL (0.0-0.045)
[2019-06-22] MEDS ORDERED: FAMOTIDINE 20 MG/2 ML VIAL IV ONE (23:47)
[2019-06-23 01:58] LABS: Urine Blood TRACE (NEG); Urine Glucose NEGATIVE (NEG); Urine Protein 1+ (NEG); Urine Specific Gravity 1.025 (1.005-1.030); Urine pH 8.5 (5.0-7.0)
[2019-06-23] MEDS ORDERED: CIPROFLOXACIN 400mg IV 400 MG/200 ML BAG IV ONE (02:17)
--- NOTE | 2019-06-23 02:22 | EDPHYS ---
Physician Documentation [facility] Name: Isadora Bettencourt Age: 73 yrs Sex: Female : 1945 Arrival Date: 06/22/2019 Time: 21:16 Bed 7 Private MD: NEHEMIAS Physician Anthony Kaminski HPI: 06/21 22:08 This 73 yrs old Female presents to ER via Ambulatory with complaints of james Diarrhea. 22:08 The patient presents to the emergency department with diarrhea, that is continuous, james abdominal pain. Onset: The symptoms/episode began/occurred 3 week(s) ago. Possible causes: unknown. The symptoms are aggravated by nothing. The symptoms are alleviated by nothing. Associated signs and symptoms: Pertinent positives: abdominal pain, diarrhea. Severity of symptoms: At their worst the symptoms were moderate in the emergency department the symptoms are unchanged. The patient has experienced similar episodes in the past, a few times. 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 - Social history:: Patient/guardian denies using alcohol, street drugs, tobacco products. - Family history:: not pertinent. ROS: 22:08 Constitutional: Negative for fever, chills, and weight loss, Eyes: Negative for injury, james pain, redness, and discharge, ENT: Negative for injury, pain, and discharge, Neck: Negative for injury, pain, and swelling, Cardiovascular: Negative for chest pain, palpitations, and edema, Respiratory: Negative for shortness of breath, cough, wheezing, and pleuritic chest pain, Back: Negative for injury and pain, : Negative for injury, bleeding, discharge, and swelling, MS/Extremity: Negative for injury and deformity, Skin: Negative for injury, rash, and discoloration, Neuro: Negative for headache, weakness, numbness, tingling, and seizure, Psych: Negative for depression, anxiety, suicide ideation, homicidal ideation, and hallucinations, Allergy/Immunology: Negative for hives, rash, and allergies, Endocrine: Negative for neck swelling, polydipsia, polyuria, polyphagia, and marked weight changes. 22:08 Abdomen/GI: Positive for diarrhea, abdominal cramps, abdominal distension, of the right upper quadrant, left upper quadrant, right lower quadrant and left lower quadrant. Exam: 22:08 Constitutional: This is a well developed, well nourished patient who is awake, alert, james and in no acute distress. Head/Face: Normocephalic, atraumatic. Eyes: Pupils equal round and reactive to light, extra-ocular motions intact. Lids and lashes normal. Conjunctiva and sclera are non-icteric and not injected. Cornea within normal limits. Periorbital areas with no swelling, redness, or edema. ENT: Nares patent. No nasal discharge, no septal abnormalities noted. Tympanic membranes are normal and external auditory canals are clear. Oropharynx with no redness, swelling, or masses, exudates, or evidence of obstruction, uvula midline. Mucous membranes moist. Neck: Trachea midline, no thyromegaly or masses palpated, and no cervical lymphadenopathy. Supple, full range of motion without nuchal rigidity, or vertebral point tenderness. No Meningismus. Chest/axilla: Normal chest wall appearance and motion. Nontender with no deformity. No lesions are appreciated. Cardiovascular: Regular rate and rhythm with a normal S1 and S2. No gallops, murmurs, or rubs. Normal PMI, no JVD. No pulse deficits. Respiratory: Lungs have equal breath sounds bilaterally, clear to auscultation and percussion. No rales, rhonchi or wheezes noted. No increased work of breathing, no retractions or nasal flaring. Back: No spinal tenderness. No costovertebral tenderness. Full range of motion. Skin: Warm, dry with normal turgor. Normal color with no rashes, no lesions, and no evidence of cellulitis. MS/ Extremity: Pulses equal, no cyanosis. Neurovascular intact. Full, normal range of motion. Neuro: Awake and alert, GCS 15, oriented to person, place, time, and situation. Cranial nerves II-XII grossly intact. Motor strength 5/5 in all extremities. Sensory grossly intact. Cerebellar exam normal. Normal gait. Psych: Awake, alert, with orientation to person, place and time. Behavior, mood, and affect are within normal limits. 22:08 Abdomen/GI: Inspection: distension, Bowel sounds: hyperactive, Palpation: mild abdominal tenderness, moderate abdominal tenderness, in all quadrants, Liver: no appreciated palpable abnormalities, Hernia: not appreciated. Vital Signs: 21:26 BP 132 / 86; Pulse 95; Resp 18; Temp 98.7; Pulse Ox 98% ; Pain 5/10; ll1 22:00 BP 151 / 87; Pulse 80; Resp 17; Pulse Ox 100% on R/A; lp1 23:00 BP 159 / 81; Pulse 87; Resp 18; Pulse Ox 96% on R/A; lp1 06/22 00:00 BP 137 / 90; Pulse 66; Resp 18; Pulse Ox 99% on R/A; lp1 01:00 BP 147 / 66; Pulse 68; Resp 19; Pulse Ox 100% on R/A; lp1 02:00 BP 138 / 75; Pulse 64; Resp 15; Pulse Ox 98% on R/A; lp1 03:00 BP 136 / 68; Pulse 64; Resp 19; Pulse Ox 97% on R/A; lp1 Procedures: 06/21 22:13 Peripheral line: by aseptic technique a peripheral line was placed in the left external james jugular vein. MDM: 21:17 Patient medically screened. james 22:11 Data reviewed: vital signs, nurses notes, lab test result(s), EKG, radiologic studies, [facility] CT scan, plain films. 22:11 Differential diagnosis: Nonspecific abd pain, pancreatitis, diverticulitis. ED course: [facility] diarrhea past 3 weeks, worse today, with abdominal pain. 22:12 ED course: long hx of pancreastits. [facility] 06/22 02:18 ED course: ct scan results discussed with patient, no diarrhea while in the department, [facility] pt will be dc'd to follow up dr saeed mack. 06/21 22:07 Order name: Basic Metabolic Panel; Complete Time: 23:00 [facility] 06/21 22:07 Order name: CBC with Diff; Complete Time: 23:00 [facility] 06/21 22:07 Order name: LFT's; Complete Time: 23:00 [facility] 06/21 22:07 Order name: Magnesium; Complete Time: 23:00 [facility] 06/21 22:07 Order name: NT PRO-BNP; Complete Time: 23:00 [facility] 06/21 22:07 Order name: PT-INR; Complete Time: 23:00 [facility] 06/21 22:07 Order name: Troponin (emerg Dept Use Only); Complete Time: 23:00 [facility] 06/21 22:07 Order name: XRAY Chest (1 view) [facility] 06/21 22:07 Order name: Lipase; Complete Time: 23:00 [facility] 06/22 01:46 Order name: Urine Culture [facility] 06/22 01:55 Order name: Urine Dipstick--Ancillary (enter results); Complete Time: 02:14 [facility] 06/21 22:07 Order name: EKG; Complete Time: 22:09 [facility] 06/21 22:07 Order name: Cardiac monitoring; Complete Time: 22:18 [facility] 06/21 22:07 Order name: EKG - Nurse/Tech; Complete Time: 00:40 [facility] 06/21 22:07 Order name: IV Saline Lock; Complete Time: 22:16 [facility] 06/21 22:07 Order name: Labs collected and sent; Complete Time: 22:16 [facility] 06/21 22:07 Order name: O2 Per Protocol; Complete Time: 22:16 [facility] 06/21 22:07 Order name: O2 Sat Monitoring; Complete Time: 22:16 [facility] 06/21 22:07 Order name: Urine Dipstick-Ancillary (obtain specimen); Complete Time: 02:16 [facility] 06/21 22:16 Order name: Abdomen EDMS Administered Medications: 06/21 22:29 Drug: NS 0.9% 1000 ml Route: IV; Rate: 1 bolus; Site: left jugular; lp1 23:45 Follow up: IV Status: Completed infusion; IV Intake: 1000ml lp1 22:30 Drug: Dilaudid 1 mg {Note: RASS 0.} Route: IVP; Site: left jugular; lp1 23:30 Follow up: Response: Pain is decreased lp1 22:30 Drug: Phenergan 12.5 mg Route: IVP; Site: left jugular; lp1 23:30 Follow up: Response: Nausea is decreased lp1 23:53 Drug: Pepcid 20 mg Route: IVP; Site: Other; ea 06/22 01:00 Follow up: Response: Marked relief of symptoms lp1 00:16 Drug: NS 0.9% 1000 ml Route: IV; Rate: 125 ml/hr; Site: left jugular; lp1 03:48 Follow up: IV Status: IV converted to saline lock lp1 02:15 Drug: Cipro 400 mg Volume: 200 ml; Route: IVPB; Infused Over: 60 mins; Site: left lp1 jugular; 03:15 Follow up: IV Status: Completed infusion; IV Intake: 200ml lp1 Disposition: 06/23/19 02:21 Discharged to Home. Impression: Diarrhea, unspecified, Other chronic pancreatitis - resolving, Urinary tract infection, site not specified. - Condition is Stable. - Discharge Instructions: Food Choices to Help Relieve Diarrhea, Adult, Chronic Diarrhea, Diarrhea, Adult, Urinary Tract Infection, Adult, Urinary Tract Infection, Adult, Amsa-or-Ydti, Diarrhea, Adult, [id number], Chronic Pancreatitis. - Prescriptions for nystatin 100,000 unit/gram Topical ointment - apply 1 application by TOPICAL route 3 times per day prefer cream ove ointment; 30 gram. Lomotil 2.5- 0.025 mg Oral Tablet - take 1 tablet by ORAL route every 6 hours As needed; 20 tablet. Cipro 250 mg Oral Tablet - take 1 tablet by ORAL route every 12 hours; 14 tablet. - Medication Reconciliation Form, Thank You Letter, Antibiotic Education, Prescription Opioid Use form. - Follow up: Private Physician; When: 2 - 3 days; Reason: Recheck today's complaints, Continuance of care, Re-evaluation by your physician. Follow up: Solis Mack MD; When: 2 - 3 days; Reason: Recheck today's complaints, Continuance of care, Re-evaluation by your physician. - Problem is new. - Symptoms have improved. Signatures: Dispatcher [employer] [facility] Pola Fernandez RN RN sg Anderson, Corey, MD MD cha Pena, Laura RN RN lp1 Carmelina Wright RN RN ea Lewis, Lynsay, RN RN ll1 Corrections: (The following items were deleted from the chart) 06/21 22:16 22:09 Abdomen Pelvis W Con+CT.RAD.BRZ ordered. [facility] 06/22 02:24 02:21 06/23/2019 02:21 Discharged to Home. Impression: Diarrhea, unspecified; Other james chronic pancreatitis - resolving. Condition is Stable. Forms are Medication Reconciliation Form, Thank You Letter, Antibiotic Education, Prescription Opioid Use. Follow up: Private Physician; When: 2 - 3 days; Reason: Recheck today's complaints, Continuance of care, Re-evaluation by your physician. Follow up: Solis Mack; When: 2 - 3 days; Reason: Recheck today's complaints, Continuance of care, Re-evaluation by your physician. Problem is new. Symptoms have improved. [facility] 04:01 02:24 06/23/2019 02:21 Discharged to Home. Impression: Diarrhea, unspecified; Other lp1 chronic pancreatitis - resolving; Urinary tract infection, site not specified. Condition is Stable. Discharge Instructions: Food Choices to Help Relieve Diarrhea, Adult, Chronic Diarrhea, Diarrhea, Adult, Diarrhea, Adult, [id number], Chronic Pancreatitis. Prescriptions for nystatin 100,000 unit/gram Topical ointment - apply 1 application by TOPICAL route 3 times per day prefer cream ove ointment; 30 gram, Lomotil 2.5-0.025 mg Oral Tablet - take 1 tablet by ORAL route every 6 hours As needed; 20 tablet. and Forms are Medication Reconciliation Form, Thank You Letter, Antibiotic Education, Prescription Opioid Use. Follow up: Private Physician; When: 2 - 3 days; Reason: Recheck today's complaints, Continuance of care, Re-evaluation by your physician. Follow up: Solis Mack; When: 2 - 3 days; Reason: Recheck today's complaints, Continuance of care, Re-evaluation by your physician. Problem is new. Symptoms have improved. [facility]
--- NOTE | 2019-06-23 02:22 | ER ---
Nurse's Notes [facility] Name: Isadora Bettencourt Age: 73 yrs Sex: Female : 1945 Arrival Date: 06/22/2019 Time: 21:16 Bed 7 Private MD: Diagnosis: Diarrhea, unspecified;Other chronic pancreatitis-resolving;Urinary tract infection, site not specified Presentation: 06/21 21:26 Chief complaint: Patient states: Diarrhea for 1 month with nausea.. No known fever. ll1 Coronavirus screen: Proceed with normal triage. Patient denies a cough. Patient denies shortness of breath or difficulty breathing. Patient denies measured and/or subjective temperature greater than 100.4F prior to today's visit. Patient denies travel on a cruise ship or to a country the [facility] currently lists as an affected area. Patient denies contact with known and/or suspected case of COVID-19. Ebola Screen: Patient denies travel to an Ebola-affected area in the 21 days before illness onset. Initial Sepsis Screen: Does the patient meet any 2 criteria? HR > 90 bpm. Risk Assessment: Do you want to hurt yourself or someone else? Patient reports no desire to harm self or others. Onset of symptoms was May 21, 2019. 21:26 Method Of Arrival: Ambulatory [facility] 21:26 Acuity: FRANDY 3 ll1 23:15 Initial Sepsis Screen: Does the patient have a suspected source of infection? No. lp1 Patient's initial sepsis screen is negative. 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 - Social history:: Patient/guardian denies using alcohol, street drugs, tobacco products. - Family history:: not pertinent. Screenin:17 Abuse screen: Denies threats or abuse. Nutritional screening: No deficits noted. ea Tuberculosis screening: No symptoms or risk factors identified. Fall Risk IV access (20 points). Assessment: 21:30 General: Appears in no apparent distress. Behavior is appropriate for age. Pain: lp1 Complains of pain in abdomen. Neuro: Level of Consciousness is awake, alert, obeys commands, Oriented to person, place, time, situation. Cardiovascular: Patient's skin is warm and dry. Respiratory: Respiratory effort is even, unlabored. GI: Abdomen is round Bowel sounds present X 4 quads. Abd is soft X 4 quads Reports diarrhea, since 1 month ago. : No signs and/or symptoms were reported regarding the genitourinary system. EENT: No signs and/or symptoms were reported regarding the EENT system. Derm: Skin is thin, Skin is dry, Skin is normal. Musculoskeletal: No deficits noted. 23:00 Reassessment: Patient appears in no apparent distress at this time. Patient drinking lp1 oral contrast; aware of notifying when completed. 23:17 Reassessment: CT notified of patient completing oral contrast now. lp1 06/22 00:16 Reassessment: Patient states pain to abdomen returning at this time; Provider notified. lp1 01:30 Reassessment: Patient is alert, oriented x 3, equal unlabored respirations, skin lp1 warm/dry/pink. Patient states no episodes of diarrhea; denies any abdominal pain. 03:30 Reassessment: Patient attempted to call for ride home; waiting for call back. lp1 Vital Signs: 06/21 21:26 BP 132 / 86; Pulse 95; Resp 18; Temp 98.7; Pulse Ox 98% ; Pain 5/10; ll1 22:00 BP 151 / 87; Pulse 80; Resp 17; Pulse Ox 100% on R/A; lp1 23:00 BP 159 / 81; Pulse 87; Resp 18; Pulse Ox 96% on R/A; lp1 06/22 00:00 BP 137 / 90; Pulse 66; Resp 18; Pulse Ox 99% on R/A; lp1 01:00 BP 147 / 66; Pulse 68; Resp 19; Pulse Ox 100% on R/A; lp1 02:00 BP 138 / 75; Pulse 64; Resp 15; Pulse Ox 98% on R/A; lp1 03:00 BP 136 / 68; Pulse 64; Resp 19; Pulse Ox 97% on R/A; lp1 ED Course: 06/21 21:16 Patient arrived in ED. cf2 21:17 Anthony Kaminski MD is Attending Physician. james 21:27 Triage completed. ll1 21:28 Arm band placed on Patient placed in an exam room, on a stretcher. ll1 21:30 Stephanie Wong, RN is Primary Nurse. lp1 22:00 Patient has correct armband on for positive identification. Bed in low position. Call ea light in reach. Side rails up X2. 22:00 Inserted saline lock: 18 gauge in left EJ, using aseptic technique. ,using aseptic ea technique. Started by Dr. Kaminski Blood collected. 22:53 XRAY Chest (1 view) In Process Unspecified. EDMS 06/22 01:21 Abdomen In Process Unspecified. EDMS 02:20 Solis Smith MD is Referral Physician. james 03:46 No provider procedures requiring assistance completed. lp1 04:01 IV discontinued, No redness/swelling at site. Pressure dressing applied. lp1 Administered Medications: 06/21 22:29 Drug: NS 0.9% 1000 ml Route: IV; Rate: 1 bolus; Site: left jugular; lp1 23:45 Follow up: IV Status: Completed infusion; IV Intake: 1000ml lp1 22:30 Drug: Dilaudid 1 mg {Note: RASS 0.} Route: IVP; Site: left jugular; lp1 23:30 Follow up: Response: Pain is decreased lp1 22:30 Drug: Phenergan 12.5 mg Route: IVP; Site: left jugular; lp1 23:30 Follow up: Response: Nausea is decreased lp1 23:53 Drug: Pepcid 20 mg Route: IVP; Site: Other; ea 06/22 01:00 Follow up: Response: Marked relief of symptoms lp1 00:16 Drug: NS 0.9% 1000 ml Route: IV; Rate: 125 ml/hr; Site: left jugular; lp1 03:48 Follow up: IV Status: IV converted to saline lock lp1 02:15 Drug: Cipro 400 mg Volume: 200 ml; Route: IVPB; Infused Over: 60 mins; Site: left lp1 jugular; 03:15 Follow up: IV Status: Completed infusion; IV Intake: 200ml lp1 Intake: 06/21 23:45 IV: 1000ml; Total: 1000ml. lp1 06/22 03:15 IV: 200ml; Total: 1200ml. lp1 Outcome: 02:21 Discharge ordered by . james 03:47 Condition: good lp1 03:47 Discharge instructions given to patient, Instructed on discharge instructions, follow up and referral plans. medication usage, Demonstrated understanding of instructions, follow-up care, medications, Prescriptions given X 3. 04:01 Discharged to home via wheelchair, with family. lp1 04:01 Patient left the ED. lp1 Signatures: Dispatcher [employer] EDMS Anthony Kaminski MD MD cha Pena, Laura, RN RN lp1 Carmelina Wright RN RN Bradly Sanchez cf2 Jag Forte, RN RN ll1
[2019-06-23 04:08] VITALS: TEMP 98.7
[2019-06-23 04:17] VITALS: BP 136/68; O2SAT 97
--- NOTE | 2019-06-23 08:29 | RAD REPORT ---
EXAM DESCRIPTION: RAD - Chest Single View - 06/22/2019 10:53 pm CLINICAL HISTORY: Abdominal distention;Dyspnea Chest pain. COMPARISON: Chest Single View dated 05/02/2019; Chest Single View dated 01/23/2019; Chest Single View dated 08/28/2018; Chest Single View dated 07/20/2018 FINDINGS: Portable technique limits examination quality. The lungs are grossly clear. The heart is upper limit of normal in size. No displaced fractures. IMPRESSION: No acute intrathoracic process suspected.
--- NOTE | 2019-06-23 12:04 | EKG ---
Test Date: 2019-06-22 Test Time: 22:44:36 Interventional Physician: YVON MEASUREMENT RESULTS: Intervals: Rate: 82 DC: 152 QRSD: 142 QT: 438 QTc: 511 [place]: P: 54 DC: 152 QRS: -36 T: 128 INTERPRETIVE STATEMENTS: Normal sinus rhythm Left axis deviation Left bundle branch block Abnormal ECG Compared to ECG 05/04/2019 09:20:13 Left-axis deviation now present Electronically Signed On 06-23-19 12:02:49 CDT by Artemio Bolivar
--- NOTE | 2019-06-23 12:11 | RAD REPORT ---
EXAM DESCRIPTION: Abdomen Pelvis W Contrast CLINICAL HISTORY: Lower abdomen pain COMPARISON: None. TECHNIQUE: CT ABDOMEN PELVIS WITH IV CONTRAST on 06/22/2019 9:21 PM CDT This exam was performed according to our departmental dose-optimization program, which includes autom ated exposure control, adjustment of the mA and/or kV according to patient size and/or use of iterati ve reconstruction technique. FINDINGS: Lower lungs are clear. Abdomen: The liver is normal in appearance. There is no biliary dilatation. Gallbladder is decompress ed. The pancreas and spleen are normal in appearance. The adrenal glands and kidneys are unremarkable . Abdominal aorta is normal in course and caliber without aneurysm. There is no free air. There is no r etroperitoneal adenopathy. Pelvis: There is moderate amount of stool throughout the colon. There are several borderline right lo wer quadrant lymph nodes. Urinary bladder is unremarkable. There is no free fluid. Appendix is normal . Skeleton: There are no acute osseous findings. No suspicious bony lesions. IMPRESSION: No definite acute inflammatory process. Normal appendix. Electronically signed by: Roosevelt Collins MD 06/23/2019 1:30 AM CDT Due to temporary technical issues with the PACS/Fluency reporting system, reports are being signed by the in house radiologist as a courtesy to ensure prompt reporting. The interpreting radiologist is f virginiely responsible for the content of the report.
== END 2019-06-23 04:01 | disposition home or self-care (01) ==
LOC: ER 21:13
PROC: 05HQ33Z Insertion of Infusion Device into Left External Jugular Vein, Percutaneous Approach (ICD-10-PCS; principal; 2019-06-23)
DX: N39.0 Urinary tract infection, site not specified (principal); K86.1 Other chronic pancreatitis; I10 Essential (primary) hypertension; E78.5 Hyperlipidemia, unspecified; F41.9 Anxiety disorder, unspecified
CPT/HCPCS: 93005; 87088; 85025; 87086; 80048; 36415; 83735; 85610; 80076; 87077; 87186; 81003; 84484; 83690; 83880; 74176; 71045; 99284; 36569; J2550; J1170; J7030; J0744; 96361; 96365; 96375

== ENCOUNTER 2019-07-11 12:25 | Emergency (ER) | payer OTHER ==
--- OUTSIDE RECORDS SUMMARY | 2019-07-11 12:28 | XMS REPORT ---
:1945 Author Organization [facility] t Address [address] [place] [address] Care Team Providers Name Role Phone [facility] Unavailable Unavailable Problems Condition Condition Condition Status [...] ID 2018-12-15 2018-12-15 [id number] 16:00:00 16:00:00 [email or web address] 2018-09-14 2018-09-14 [facility] [id number] 15:45:00 15:45:00 [email or web address] 2018-08-30 2018-08-30 [facility] [id number] 08:00:00 08:00:00 [email or web address] 2018-06-10 2018-06-10 [facility] [id number] 16:46:00 16:46:00 [email or web address] 2018-06-09 2018-06-09 [facility] [id number] 09:18:00 09:18:00 [facility] 2018-06-07 2018-06-07 [facility] [id number] 15:00:00 15:00:00 [email or web address] [facility] 2018-04-25 2018-04-25 [facility] [id number] 09:15:00 09:15:00 [email or web address] [facility] 2018-03-09 2018-03-09 [facility] [id number] 16:00:00 16:00:00 [email or web address] [facility] 2018-03-03 2018-03-03 [facility] [id number] 08:52:00 08:52:00 [facility] 2017-11-30 2017-11-30 [facility] [id number] 15:00:00 15:00:00 [facility] 2017-09-30 2017-09-30 [facility] [id number] 15:00:00 15:00:00 Specialty/U [facility] 2017-09-29 2017-09-29 [facility] [id number] 10:13:00 10:13:00 [facility] 2017-09-28 2017-09-28 [facility] [id number] 14:00:00 14:00:00 [facility] Results Test Description Test Time Test Comments Text Results Atomic Results Result Comments PHOSPHORUS 2018-11-11 05:54:00 Test Item Value Reference Range Comments PHOSPHORUS (BEAKER) (test code = 604) 3.6 mg/dL 2.3-4.7 [id number] 05:54:00 Test Item Value Reference Range Comments MAGNESIUM (BEAKER) (test code = 627) 1.8 mg/dL 1.6-2.6 BASIC METABOLIC [id number] 05:54:00 Test Item Value Reference Range Comments [...] F OR DIALYSIS PATIENT S. HEPATIC FUNCTION [id number] 05:54:00 Test Item Value Reference Range Comments [...] U/L 6-55 CBC W/PLT COUNT & AUTO [id number] 05:43:00 Test Item Value Reference Range Comments [...] % 0-1 (test code = 2801) PROTHROMBIN [id number] 05:42:00 Test Item Value Reference Range Comments [...] is2.5-3.5 for patients wiht mechanical heart valves.HEMOGLOBIN [id number] 07:50:00 Test Item Value Reference Range Comments HEMOGLOBIN A1C (BEAKER) (test code = 368) 7.1 % 4.3-6. 1 [id number] 04:53:00 Test Item Value Reference Range Comments PHOSPHORUS (BEAKER) (test code = 604) 3.2 mg/dL 2.3-4.7 [id number] 04:53:00 Test Item Value Reference Range Comments MAGNESIUM (BEAKER) (test code = 627) 1.8 mg/dL 1.6-2.6 BASIC METABOLIC [id number] 04:53:00 Test Item Value Reference Range Comments [...] F OR DIALYSIS PATIENT S. HEPATIC FUNCTION [id number] 04:53:00 Test Item Value Reference Range Comments [...] code = 347) 12 U/L 6-55 PROTHROMBIN [id number] 04:19:00 Test Item Value Reference Range Comments [...] mechanical heart valves.CBC W/PLT COUNT & AUTO [id number] 04:14:00 Test Item Value Reference Range Comments [...] 0 % 0-1 (test code = 2801) [id number] 14:44:00 Test Item Value Reference Range Comments LIPASE (BEAKER) (test code = 749) 972 U/L 8-78 [id number] 13:06:00 Test Item Value Reference Range Comments PHOSPHORUS (BEAKER) (test code = 604) 3.3 mg/dL 2.3-4.7 [id number] 13:06:00 Test Item Value Reference Range Comments MAGNESIUM (BEAKER) (test code = 627) 2.0 mg/dL 1.6-2.6 BASIC METABOLIC [id number] 13:06:00 Test Item Value Reference Range Comments [...] APPLICABLE F OR DIALYSIS PATIENT S. LIPID [id number] 13:06:00 Test Item Value Reference Range Comments [...] 130-159 High 160-189 Very High >=190HEPATIC FUNCTION [id number] 13:06:00 Test Item Value Reference Range Comments [...] U/L 6-55 CBC W/PLT COUNT & AUTO [id number] 12:46:00 Test Item Value Reference Range Comments [...] % 0-1 (test code = 2801) PROTHROMBIN [id number] 12:39:00 Test Item Value Reference Range Comments [...]
--- OUTSIDE RECORDS SUMMARY | 2019-07-11 12:28 | XMS REPORT ---
[...] Status Dosage System Date Date Clonidine HCl [facility] 26049593448 0.1 MG Orally Active 1 tablet at Once a day bedtime Metoprolol [facility] 86456012139 50 MG Orally Active 1 ta blet with Tartrate Twice a day food Culturelle [facility] 76586156199 - Orally Active not defi chad Clotrimazole [facility] 28791674305 1 % Externally Active 1 application Twice a day to affected area Simvastatin [facility] 49444361180 20 MG Orally Active 1 t ablet in Once a day the evening Zestoretic [facility] 94027979464 20-25 MG Orally Active 1 tablet Once a day Protonix [facility] 56783070343 40 MG Orally Active 1 tabl et Twice a day Creon [facility] 07926422226 39645-28526 Active 1 cap UNIT Orally three times a day ProAir HFA [facility] 19687680248 108 (90 Base) Apr 25, Active 2 p uffs as MCG/ACT 2019 needed Inhalation every 6 hrs PRN COugh, Wheezing or shortness of breath Estrace [facility] 44607934603 0.1 MG/GM Active as directe d Vaginal twice weekly Trazodone HCl [facility] 20742861071 100 MG Orally Active 1 tablet at Once a day bedtime Neurontin [facility] 73308420789 300 MG Orally Active 1 ca psule Once a day before bedtime Citalopram [facility] 96538625038 40 MG Orally Active 1 ta blet Hydrobromide Once a day Results No Known Results Summary Purpose eClinicalWorks Submission
[2019-07-11] MEDS ORDERED: DICYCLOMINE HCL 10 MG CAP ONE (13:55)
--- NOTE | 2019-07-11 14:32 | RAD REPORT ---
EXAM DESCRIPTION: RAD - Abdomen Acute Series - 07/11/2019 2:21 pm CLINICAL HISTORY: Abdominal pain FINDINGS: Lungs appear clear of acute infiltrate. Free air is not seen beneath the diaphragm. The bowel gas pattern is unremarkable . Left renal calculus. Round calcifications within the lower l eft abdomen and pelvis previously shown to represent phleboliths
[2019-07-11] MEDS ORDERED: FAMOTIDINE 20 MG/2 ML VIAL IV ONE (16:09)
[2019-07-11] MEDS ORDERED: ONDANSETRON 4 MG/2 ML VIAL ONE (16:09)
[2019-07-11 16:15] LABS: Absolute Lymphocytes (CBC) 3.5 K/uL (0.7-4.9); Hematocrit 39.2 % (36.0-45.0); Lymphocytes % 29.8 % (15.3-44.8); MPV 9.1 fL (7.6-11.3); RBC Red Blood Cell Count 4.94 M/uL (3.86-4.86)
[2019-07-11 16:36] LABS: Albumin 3.3 g/dL (3.4-5.0); Bilirubin Total 0.5 mg/dL (0.2-1.0); Potassium 4.6 mmol/L (3.5-5.1)
--- NOTE | 2019-07-11 17:41 | EDPHYS ---
Physician Documentation [facility] Name: Isadora Bettencourt Age: 73 yrs Sex: Female : 1945 Arrival Date: 07/11/2019 Time: 12:29 Bed 19 Private MD: Dmitry Powell ED Physician Freeman Crum HPI: 07/10 17:35 This 73 yrs old Female presents to ER via Wheelchair with complaints of ps1 Diarrhea, Abdominal Pain. 17:35 Patient has a history of chronic pancreatitis and diarrhea for last couple of months. ps1 States that she has been seen and evaluated for same in past. Has not had stool studies done and not been able to get an appointment with GI specialist 2/2 COVID. States that she has cramping and multiple episodes of diarrhea. Non-bloody. 10 episodes yesterday. NO fever. . 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 - Social history:: Patient/guardian denies using alcohol, street drugs, tobacco products, Smoking status: Patient denies any tobacco usage or history of. ROS: 17:35 Constitutional: Negative for fever, chills, and weight loss, Eyes: Negative for injury, ps1 pain, redness, and discharge, Cardiovascular: Negative for chest pain, palpitations, and edema, Respiratory: Negative for shortness of breath, cough, wheezing, and pleuritic chest pain, MS/Extremity: Negative for injury and deformity, Skin: Negative for injury, rash, and discoloration, Neuro: Negative for headache, weakness, numbness, tingling, and seizure. 17:35 Constitutional: Positive for 17:35 Abdomen/GI: Positive for abdominal pain, nausea, vomiting, and diarrhea. Exam: 17:35 Constitutional: This is a well developed, well nourished patient who is awake, alert, ps1 and in no acute distress. Head/Face: Normocephalic, atraumatic. Eyes: Pupils equal round and reactive to light, extra-ocular motions intact. Lids and lashes normal. Conjunctiva and sclera are non-icteric and not injected. Cardiovascular: Regular rate and rhythm. No gallops, murmurs, or rubs. Normal PMI, no JVD. No pulse deficits. Respiratory: Lungs have equal breath sounds bilaterally, clear to auscultation and percussion. No rales, rhonchi or wheezes noted. No increased work of breathing, no retractions or nasal flaring. Skin: Warm, dry with normal turgor. Normal color with no rashes, no lesions, and no evidence of cellulitis. MS/ Extremity: Pulses equal, no cyanosis. Neurovascular intact. Full, normal range of motion. Neuro: Awake and alert, GCS 15, oriented to person, place, time, and situation. Cranial nerves II-XII grossly intact. Sensory grossly intact. 17:35 Abdomen/GI: Inspection: abdomen appears normal, Bowel sounds: normal, Palpation: soft, mild abdominal tenderness, in the left lower quadrant. Vital Signs: 12:40 BP 171 / 92; Pulse 84; Resp 18; Temp 99.1; Pulse Ox 100% ; Pain 10/10; ll1 14:30 BP 167 / 86; Pulse 78; Resp 18; Pulse Ox 98% on R/A; ph 15:30 BP 159 / 89; Pulse 81; Resp 19; Pulse Ox 99% on R/A; ph 17:00 BP 164 / 87; Pulse 78; Resp 18; Pulse Ox 98% ; ph 18:45 BP 168 / 78; Pulse 76; Resp 19; Temp 98.0; Pulse Ox 99% on R/A; ph MDM: 13:49 Patient medically screened. ps1 17:35 Data reviewed: vital signs, nurses notes, lab test result(s), radiologic studies, and ps1 as a result, I will discharge patient. Counseling: I had a detailed discussion with the patient and/or guardian regarding: the historical points, exam findings, and any diagnostic results supporting the discharge/admit diagnosis, the need for outpatient follow up, to return to the emergency department if symptoms worsen or persist or if there are any questions or concerns that arise at home. ED course: Ordered stool studies. Will treat for suspected Cdiff pending results. Continue current home medications. Follow up with GI shahnaz. . 07/10 13:41 Order name: CBC with Diff; Complete Time: 18:14 ps1 07/10 13:41 Order name: CMP; Complete Time: 16:42 ps1 07/10 13:41 Order name: Abdomen Acute Series XRAY; Complete Time: 15:52 ps1 07/10 17:54 Order name: CBC Smear Scan; Complete Time: 18:14 EDMS Administered Medications: 13:56 Drug: Bentyl 20 mg Route: PO; ph 19:13 Follow up: Response: No adverse reaction ph 16:15 Drug: Pepcid 20 mg Route: IVP; Site: right jugular; ph 19:13 Follow up: Response: No adverse reaction ph 16:18 Drug: Zofran (Ondansetron) 4 mg Route: IVP; Site: right jugular; ph 19:13 Follow up: Response: No adverse reaction ph 17:45 Drug: NS 0.9% 500 ml Route: IV; Rate: bolus; Site: right jugular; ph 19:13 Follow up: Response: No adverse reaction; IV Status: Completed infusion; IV Intake: ph 500ml Disposition: 07/11/19 17:40 Discharged to Home. Impression: Diarrhea, unspecified. - Condition is Stable. - Discharge Instructions: Diarrhea, Adult. - Prescriptions for Metronidazole 500 mg Oral Tablet - take 1 tablet by ORAL route every 8 hours; 30 tablet. - Medication Reconciliation Form, Thank You Letter, Antibiotic Education, Prescription Opioid Use form. - Follow up: Dmitry Powell DO; When: As needed; Reason: Recheck today's complaints, Continuance of care, Re-evaluation by your physician. Follow up: Emergency Department; When: As needed; Reason: Fever > 102 F, Worsening of condition. - Problem is chronic. - Symptoms have improved. Signatures: Dispatcher [employer]WY Elizabeth Desai RN RN ph Freeman Crum MD MD ps1 Roger Paul RN RN mg2 Jag Forte RN RN ll1 Corrections: (The following items were deleted from the chart) 19:52 17:40 07/11/2019 17:40 Discharged to Home. Impression: Diarrhea, unspecified. Condition mg2 is Stable. Forms are Medication Reconciliation Form, Thank You Letter, Antibiotic Education, Prescription Opioid Use. Follow up: Dmitry Powell; When: As needed; Reason: Recheck today's complaints, Continuance of care, Re-evaluation by your physician. Follow up: Emergency Department; When: As needed; Reason: Fever > 102 F, Worsening of condition. Problem is chronic. Symptoms have improved. ps1
--- NOTE | 2019-07-11 17:41 | ER ---
Nurse's Notes [facility] Name: Isadora Bettencourt Age: 73 yrs Sex: Female : 1945 Arrival Date: 07/11/2019 Time: 12:29 Bed 19 Private MD: Dmitry Powell Diagnosis: Diarrhea, unspecified Presentation: 07/10 12:40 Chief complaint: Patient states: Abdominal pain and diarrhea continues for past two ll1 months. Coronavirus screen: Proceed with normal triage. Patient denies a cough. Patient denies shortness of breath or difficulty breathing. Patient denies measured and/or subjective temperature greater than 100.4F prior to today's visit. Patient denies travel on a cruise ship or to a country the [facility] currently lists as an affected area. Patient denies contact with known and/or suspected case of COVID-19. Ebola Screen: Patient denies travel to an Ebola-affected area in the 21 days before illness onset. Initial Sepsis Screen: Does the patient meet any 2 criteria? No. Patient's initial sepsis screen is negative. Does the patient have a suspected source of infection? No. Patient's initial sepsis screen is negative. Risk Assessment: Do you want to hurt yourself or someone else? Patient reports no desire to harm self or others. Onset of symptoms was May 11, 2019. 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 - Social history:: Patient/guardian denies using alcohol, street drugs, tobacco products, Smoking status: Patient denies any tobacco usage or history of. Screenin:46 Abuse screen: Denies threats or abuse. Denies injuries from another. Nutritional ph screening: No deficits noted. Tuberculosis screening: No symptoms or risk factors identified. Fall Risk None identified. Assessment: 13:30 General: Appears in no apparent distress. comfortable, well groomed, Behavior is calm, ph cooperative, appropriate for age. Pain: Complains of pain in abdomen. Neuro: Level of Consciousness is awake, alert, obeys commands, Oriented to person, place, time, situation. Cardiovascular: Capillary refill < 3 seconds in bilateral fingers Patient's skin is warm and dry. Respiratory: Airway is patent Respiratory effort is even, unlabored. GI: Abdomen is round non-distended, Reports lower abdominal pain, upper abdominal pain, diarrhea, nausea. Derm: Skin is intact, is healthy with good turgor, Skin is pink, warm \\T\\ dry. Musculoskeletal: Circulation, motion, and sensation intact. Range of motion: intact in all extremities. 17:49 Reassessment: Patient appears in no apparent distress at this time. Patient and/or ph family updated on plan of care and expected duration. Pain level reassessed. Patient is alert, oriented x 3, equal unlabored respirations, skin warm/dry/pink. D/C pending completion of IV fluids, pt unable to provide stool sample at this time, states, " The same thing happened last time, it's like the diarrhea stops as soon as I get here then starts again when I get home.". 19:09 Reassessment: Patient appears in no apparent distress at this time. Patient and/or ph family updated on plan of care and expected duration. Pain level reassessed. Patient is alert, oriented x 3, equal unlabored respirations, skin warm/dry/pink. IV fluids complete, pt still unable to have BM, d/c paperwork signed and IV d/c, awaiting ride home from son. Vital Signs: 12:40 BP 171 / 92; Pulse 84; Resp 18; Temp 99.1; Pulse Ox 100% ; Pain 10/10; ll1 14:30 BP 167 / 86; Pulse 78; Resp 18; Pulse Ox 98% on R/A; ph 15:30 BP 159 / 89; Pulse 81; Resp 19; Pulse Ox 99% on R/A; ph 17:00 BP 164 / 87; Pulse 78; Resp 18; Pulse Ox 98% ; ph 18:45 BP 168 / 78; Pulse 76; Resp 19; Temp 98.0; Pulse Ox 99% on R/A; ph ED Course: 12:29 Patient arrived in ED. mr 12:29 Dmitry Powell, is Private Physician. mr 12:42 Triage completed. ll1 12:43 Arm band placed on Patient placed in an exam room, on a stretcher. ll1 12:45 Elizabeth Desai, RN is Primary Nurse. ph 12:46 Patient has correct armband on for positive identification. Bed in low position. Call ph light in reach. Side rails up X 1. Pulse ox on. NIBP on. Door closed. Noise minimized. Warm blanket given. 13:05 Freeman Crum MD is Attending Physician. ps1 14:19 Abdomen Acute Series XRAY In Process Unspecified. EDMS 16:15 Accessed peripheral vein via ultrasound, utilizing dynamic ultrasound technique using ph 20G Nexia IV catheter per hospital protocol. Clean \\T\\ dry. Dressing intact. Good blood return. Flushes easily. 17:40 Dmitry Powell DO is Referral Physician. ps1 17:52 No provider procedures requiring assistance completed. ph 19:10 IV discontinued, intact, bleeding controlled, No redness/swelling at site. ph Administered Medications: 13:56 Drug: Bentyl 20 mg Route: PO; ph 19:13 Follow up: Response: No adverse reaction ph 16:15 Drug: Pepcid 20 mg Route: IVP; Site: right jugular; ph 19:13 Follow up: Response: No adverse reaction ph 16:18 Drug: Zofran (Ondansetron) 4 mg Route: IVP; Site: right jugular; ph 19:13 Follow up: Response: No adverse reaction ph 17:45 Drug: NS 0.9% 500 ml Route: IV; Rate: bolus; Site: right jugular; ph 19:13 Follow up: Response: No adverse reaction; IV Status: Completed infusion; IV Intake: ph 500ml Intake: 19:13 IV: 500ml; Total: 500ml. ph Outcome: 17:40 Discharge ordered by . ps1 19:10 Discharged to home ambulatory, with family. ph 19:10 Condition: good 19:10 Discharge instructions given to patient, Instructed on discharge instructions, follow up and referral plans. medication usage, Demonstrated understanding of instructions, follow-up care, medications. 19:52 Patient left the ED. mg2 Signatures: Dispatcher [employer] EDNE Ratna Castellon Elizabeth Desai, RN RN ph Freeman Crum MD MD ps1 Roger Paul RN RN mg2 Jag Forte RN RN ll1
[2019-07-11] MEDS ORDERED: NA CHLORIDE 0.9% 500 ML ONE (17:42)
[2019-07-11 17:54] LABS: Blood Morphology Comment NOT SEEN (NOT SEEN); Platelet Estimate ADEQ; Urine White Blood Cell Casts OK
[2019-07-11 23:01] VITALS: BP 168/78; TEMP 98; O2SAT 99
== END 2019-07-11 19:52 | disposition home or self-care (01) ==
LOC: ER 12:25
DX: R19.7 Diarrhea, unspecified (principal); I10 Essential (primary) hypertension
CPT/HCPCS: 85025; 36415; 80053; 74022; J7040; J2405

== ENCOUNTER 2019-07-13 15:46 | Emergency (ER) | payer OTHER ==
--- OUTSIDE RECORDS SUMMARY | 2019-07-13 15:54 | XMS REPORT | Clinical Summary ---
:1945 Author Organization [facility] Address [address] [place] [address] Care Team Providers Name Role Phone Dmitry Powell Primary Care Provider [phone] Allergies No Known Allergies Medications Medication Sig Dispensed Refills Start Date End Date Status pantoprazole Take 40 mg by mouth 0 Active (PROTONIX) 40 MG 2 (two) times daily tablet . [id number] Take 36,000 units of 0 Active ase (CREON) lipase by mouth 3 36,000-114,000- (three) times daily 180,000 unit CpDR with meals. capsule metoprolol Take 50 mg by mouth 0 Active (LOPRESSOR) 50 MG daily. tablet gabapentin Take 100 mg by mouth 0 Active (NEURONTIN) 100 MG 2 (two) times daily. capsule lisinopril Take 40 mg by mouth 0 Active (PRINIVIL,ZESTRIL) daily. 40 MG tablet albuterol Take 0.5 mLs (2.5 mg 1 each 0 11/11/2018 Active (PROVENTIL) 2.5 total) by mg/0.5 mL Nebu nebulization every 4 nebulizer solution (four) hours as needed. Active Problems Problem Noted Date Acute pancreatitis 11/09/2018 Essential hypertension 11/09/2018 Esophageal stricture 11/09/2018 Encounters Date Type Specialty Care Team Description 11/10/2018 Travel 11/09/2018 - Hospital Encounter Intensive Care [place], Acute p ancreatitis, unspecified complication status, unspecified pancreatitis type (Primary Dx); 11/11/2018 MD aJy Idiopathic acute pancreatitis without in fection or necrosis Matt Chamorro MD Merchant, Omar, MD after 07/12/2018 Social History Tobacco Use Types Packs/Day Years Used Date Former Smoker Smokeless Tobacco: Never Used Alcohol Use Drinks/Week oz/Week Comments No Alcohol Habits Answer Date Recorded How often do you have a drink containing alcohol? Never 11/09/2018 How many drinks containing alcohol do you have on a typical Not asked day when you are drinking? How often do you have six or more drinks on one occasion? No t asked Sex Assigned at Date Recorded Not on file Job Start Date Occupation Industry Not on file Not on file Not on file Travel History Travel Start Travel End No recent travel history available. Last Filed Vital Signs Vital Sign Reading Time Taken Blood Pressure 144/71 11/11/2018 10:00 AM CDT Pulse 64 11/11/2018 2:00 PM CDT Temperature 36.8 C (98.2 F) 11/11/2018 8:00 AM CDT Respiratory Rate 13 11/11/2018 2:00 PM CDT Oxygen Saturation 96% 11/11/2018 2:00 PM CDT Inhaled Oxygen Concentration 28% 11/10/2018 8:10 PM CDT Weight 90.2 kg (198 lb 13.7 oz) 11/11/2018 6:0 0 AM CDT Height 154.9 cm (5' 1") 11/09/2018 11:00 AM CDT Body Mass Index 37.57 11/11/2018 6:00 AM CDT Plan of Treatment Not on file Procedures Procedure Name Priority Date/Time Associated Comments Diagnosis RHYTHM STRIP - SCAN 11/15/2018 7:20 AM CDT CBC W/PLT COUNT & Routine 11/11/2018 5:15 Result s for this AUTO DIFFERENTIAL AM CDT procedure are in the results section. CBC W/PLT COUNT & Routine 11/11/2018 5:15 Result s for this AUTO DIFFERENTIAL AM CDT procedure are in the results section. PHOSPHORUS Routine 11/11/2018 5:15 Results for this AM CDT procedure are i n the results section. MAGNESIUM Routine 11/11/2018 5:15 Results for this AM CDT procedure are i n the results section. PROTHROMBIN TIME/INR Routine 11/11/2018 5:15 Res ults for this AM CDT procedure are i n the results section. HEPATIC FUNCTION Routine 11/11/2018 5:15 Results for this PANEL AM CDT procedure are i n the results section. BASIC METABOLIC PANEL Routine 11/11/2018 5:15 Re sults for this (7) AM CDT procedure are i n the results section. CBC W/PLT COUNT & Routine 11/10/2018 3:53 Result s for this AUTO DIFFERENTIAL AM CDT procedure are in the results section. CBC W/PLT COUNT & Routine 11/10/2018 3:53 Result s for this AUTO DIFFERENTIAL AM CDT procedure are in the results section. PHOSPHORUS Routine 11/10/2018 3:53 Results for this AM CDT procedure are i n the results section. MAGNESIUM Routine 11/10/2018 3:53 Results for this AM CDT procedure are i n the results section. PROTHROMBIN TIME/INR Routine 11/10/2018 3:53 Res ults for this AM CDT procedure are i n the results section. HEMOGLOBIN A1C Routine 11/10/2018 3:53 Results f or this AM CDT procedure are i n the results section. HEPATIC FUNCTION Routine 11/10/2018 3:53 Results for this PANEL AM CDT procedure are i n the results section. BASIC METABOLIC PANEL Routine 11/10/2018 3:53 Re sults for this (7) AM CDT procedure are i n the results section. LIPASE Routine 11/09/2018 12:21 Results for this PM CDT procedure are i n the results section. PHOSPHORUS Routine 11/09/2018 12:21 Results for this PM CDT procedure are i n the results section. MAGNESIUM Routine 11/09/2018 12:21 Results for this PM CDT procedure are i n the results section. LIPID PANEL Routine 11/09/2018 12:21 Results for this PM CDT procedure are i n the results section. PROTHROMBIN TIME/INR Routine 11/09/2018 12:21 Res ults for this PM CDT procedure are i n the results section. HEPATIC FUNCTION Routine 11/09/2018 12:21 Results for this PANEL PM CDT procedure are i n the results section. BASIC METABOLIC PANEL Routine 11/09/2018 12:21 Re sults for this (7) PM CDT procedure are i n the results section. CBC W/PLT COUNT & Routine 11/09/2018 12:12 Result s for this AUTO DIFFERENTIAL PM CDT procedure are in the results section. CBC W/PLT COUNT & Routine 11/09/2018 12:12 Result s for this AUTO DIFFERENTIAL PM CDT procedure are in the results section. after 07/12/2018 Results RHYTHM STRIP - SCAN (11/15/2018 7:20 AM CDT) Narrative Performed At This result has an attachment that is no t available. CBC with platelet count + automated diff (11/11/2018 5:15 AM CDT)Only the most recent of3 resultswithin the time period is included. WBC 6.6 3.5 - 10.5 K/L [facility] RBC 3.63 (L) 3.93 - 5.22 M/L [facility] Hemoglobin 9.3 (L) 11.2 - 15.7 GM/DL [facility] Hematocrit 31.1 (L) 34.1 - 44.9 % [facility] MCV 85.7 79.4 - 94.8 fL [facility] MCH 25.6 25.6 - 32.2 pg [facility] MCHC 29.9 (L) 32.2 - 35.5 GM/DL [facility] RDW 15.4 (H) 11.7 - 14.4 % [facility] Platelets 157 150 - 450 K/CU MM [facility] MPV 10.5 9.4 - 12.3 fL [facility] nRBC 0 0 - 0 /100 WBC [facility] % Neutros 59 % [facility] % Lymphs 26 % [facility] % Monos 11 % [facility] % Eos 3 % [facility] % Baso 1 % [facility] # Neutros 3.91 1.56 - 6.13 K/L [facility] # Lymphs 1.72 1.18 - 3.74 K/L [facility] # Monos 0.72 (H) 0.24 - 0.36 K/L [facility] # Eos 0.22 0.04 - 0.36 K/L [facility] # Baso 0.04 0.01 - 0.08 K/L [facility] Immature Granulocytes-Relative 0 0 - 1 % [facility] Specimen Blood Performing Organization Address City/[facility] Cent[facility] Phone Number [address] [phone] CENTER Prothrombin time/INR (11/11/2018 5:15 AM CDT)Only the most recent of3 results within the time period is included. Protime 13.0 11.9 - 14.2 seconds [facility] INR 1.0 <=5.9 [facility] Specimen Blood Narrative Performed At Effective 08/03/2018: PT Reference Range [facility] Change New: 11.9-14.2Previous: 11.7-14.7 RECOMMENDED COUMADIN/WARFARIN INR THERAPY RANGES STANDARD DOSE: 2.0-3.0Includes: PROPHYLAXIS for venous thrombosis, systemic embolization; TREATMENT for venous thrombosis and/or pulmonary embolus. HIGH RISK: Target INR is 2.5-3.5 for patients wiht mechanical heart valves. Performing Organization Address [facility] Phone Number [address] [phone] CENTER Phosphorus (11/11/2018 5:15 AM CDT)Only the most recent of3 resultswithin the time period is included. Phosphorus 3.6 2.3 - 4.7 mg/dL [facility] Specimen Blood Performing Organization Address City/[facility] Cent[facility]ode Phone Number [address] [phone] CENTER Magnesium (11/11/2018 5:15 AM CDT)Only the most recent of3 resultswithin the time period is included. Magnesium 1.8 1.6 - 2.6 mg/dL [facility] Specimen Blood Performing Organization Address City/State/Zipcode Phone Number [facility] [address] [place] [address] [place] Hepatic function panel (11/11/2018 5:15 AM CDT)Only the most recent of3 results within the time period is included. Protein, Total 6.7 6.0 - 8.3 gm/dL [facility] Albumin 3.5 3.5 - 5.0 g/dL [facility] Total Bilirubin 0.5 0.2 - 1.2 mg/dL [facility] Bilirubin, Direct 0.2 0.1 - 0.5 mg/dL [facility] Alkaline Phosphatase 76 40 - 150 U/L [facility] AST 17 5 - 34 U/L [facility] ALT 12 6 - 55 U/L [facility] Specimen Blood Performing Organization Address City/State/Zipcode Phone Number [facility] [address] [place] [address] [place] Basic metabolic panel (11/11/2018 5:15 AM CDT)Only the most recent of3 results within the time period is included. Sodium 137 136 - 145 meq/L [facility] Potassium 3.8 3.5 - 5.1 meq/L [facility] Chloride 103 98 - 107 meq/L [facility] CO2 28 22 - 29 meq/L [facility] BUN 10 7 - 21 mg/dL [facility] Creatinine 0.75 0.57 - 1.25 mg/dL [facility] Glucose 113 (H) 70 - 105 mg/dL [facility] Calcium 8.4 8.4 - 10.2 mg/dL [facility] EGFR 76Comment: ESTIMATED GFR IS mL/min/1.73 sq m [facility] NOT ACCURATE [facility] CLEARANCE IN PREDICTING GLOMERULAR FILTRATION RATE. ESTIMATED GFR IS NOT APPLICABLE FOR DIALYSIS PATIENTS. Specimen Blood Performing Organization Address City/State/Zipcode Phone Number [address] [address] [place] Hemoglobin A1c (11/10/2018 3:53 AM CDT) Hemoglobin A1C 7.1 (H) 4.3 - 6.1 % [facility] Specimen Blood Performing Organization Address City/[facility] Cent[facility] Phone Number [address] [address] [place] Lipase (11/09/2018 12:21 PM CDT) Lipase 972 (H) 8 - 78 U/L [facility] Specimen Blood Performing Organization Address City/[facility] Cent[facility] Phone Number [address] [address] [place] Lipid panel (11/09/2018 12:21 PM CDT) Triglycerides 210 mg/dL [facility] Cholesterol 213 mg/dL [facility] HDL 56 mg/dL [facility] LDL Calculated 115 mg/dL [facility] Specimen Blood Narrative Performed At Triglyceride Reference Range: [facility] Low Risk <150 [id number] High Risk 200-499 Very High Risk>=500 Cholesterol Reference Range: Low Risk <200 [id number] High Risk>240 HDL Cholesterol Reference Range: Low Risk >=60 High Risk <40 LDL Cholesterol Reference Range: Optimal<100 Near [id number] [id number] Qfus473-514 Very High >=190 Performing Organization Address City/[facility] Centercode Phone Number [facility] [address] [place] [address] CENTER after 07/12/2018 Insurance Payer Benefit Plan / Group Subscriber ID Type Phone A ddress MEDICARE MEDICARE A B xxxxxxxxxxx Medicare Advance Directives For more information, please contact:[facility], [place] [phone] Code Status Date Activated Date Inactivated Comments Full Code 11/09/2018 11:45 AM 11/11/2018 7:24 PM This code status was determined by: Patient
--- OUTSIDE RECORDS SUMMARY | 2019-07-13 15:55 | XMS REPORT ---
:1945 Author Organization [facility] t Address [address] [place] [address] Care Team Providers Name Role Phone [facility] Unavailable Unavailable Problems Condition Condition Condition [...] ID 2018-12-15 2018-12-15 [facility] [id number] 16:00:00 16:00:00 [facility] [employer] [facility] 2018-09-14 2018-09-14 [facility] [id number] 15:45:00 15:45:00 [facility] [employer] [facility] 2018-08-30 2018-08-30 [facility] [id number] 08:00:00 08:00:00 [facility] [employer] [facility] 2018-06-10 2018-06-10 [facility] [id number] 16:46:00 16:46:00 [facility] [employer] [facility] 2018-06-09 2018-06-09 [facility] [id number] 09:18:00 09:18:00 [facility] Medicine 2018-06-07 2018-06-07 [facility] [id number] 15:00:00 15:00:00 [facility] [employer] [facility] 2018-04-25 2018-04-25 [facility] [id number] 09:15:00 09:15:00 [facility] [employer] [facility] 2018-03-09 2018-03-09 [facility] [id number] 16:00:00 16:00:00 [facility] [employer] [facility] 2018-03-03 2018-03-03 [facility] [id number] 08:52:00 08:52:00 [facility] 2017-11-30 2017-11-30 [facility] [id number] 15:00:00 15:00:00 [facility] 2017-09-30 2017-09-30 [facility] [id number] 15:00:00 15:00:00 Specialty[facility]U [facility] 2017-09-29 2017-09-29 [facility] [id number] 10:13:00 10:13:00 [facility] 2017-09-28 2017-09-28 [facility] [id number] 14:00:00 14:00:00 [facility] Results Test Description Test Time Test Comments Text Results Atomic Results Result Comments PHOSPHORUS 2018-11-11 05:54:00 Test Item Value Reference Range Comments PHOSPHORUS (BEAKER) (test code = 604) 3.6 mg/dL 2.3-4.7 [id number] 05:54:00 Test Item Value Reference Range Comments MAGNESIUM (BEAKER) (test code = 627) 1.8 mg/dL 1.6-2.6 BASIC METABOLIC [id number] 05:54:00 Test Item Value Reference Range Comments [...] F OR DIALYSIS PATIENT S. HEPATIC FUNCTION [id number] 05:54:00 Test Item Value Reference Range Comments [...] U/L 6-55 CBC W/PLT COUNT & AUTO [id number] 05:43:00 Test Item Value Reference Range Comments [...] % 0-1 (test code = 2801) PROTHROMBIN [id number] 05:42:00 Test Item Value Reference Range Comments [...] is2.5-3.5 for patients wiht mechanical heart valves.HEMOGLOBIN [id number] 07:50:00 Test Item Value Reference Range Comments HEMOGLOBIN A1C (BEAKER) (test code = 368) 7.1 % 4.3-6. 1 [id number] 04:53:00 Test Item Value Reference Range Comments PHOSPHORUS (BEAKER) (test code = 604) 3.2 mg/dL 2.3-4.7 [id number] 04:53:00 Test Item Value Reference Range Comments MAGNESIUM (BEAKER) (test code = 627) 1.8 mg/dL 1.6-2.6 BASIC METABOLIC [id number] 04:53:00 Test Item Value Reference Range Comments [...] F OR DIALYSIS PATIENT S. HEPATIC FUNCTION [id number] 04:53:00 Test Item Value Reference Range Comments [...] code = 347) 12 U/L 6-55 PROTHROMBIN [id number] 04:19:00 Test Item Value Reference Range Comments [...] mechanical heart valves.CBC W/PLT COUNT & AUTO [id number] 04:14:00 Test Item Value Reference Range Comments [...] 0 % 0-1 (test code = 2801) [id number] 14:44:00 Test Item Value Reference Range Comments LIPASE (BEAKER) (test code = 749) 972 U/L 8-78 [id number] 13:06:00 Test Item Value Reference Range Comments PHOSPHORUS (BEAKER) (test code = 604) 3.3 mg/dL 2.3-4.7 [id number] 13:06:00 Test Item Value Reference Range Comments MAGNESIUM (BEAKER) (test code = 627) 2.0 mg/dL 1.6-2.6 BASIC METABOLIC [id number] 13:06:00 Test Item Value Reference Range Comments [...] APPLICABLE F OR DIALYSIS PATIENT S. LIPID [id number] 13:06:00 Test Item Value Reference Range Comments [...] 130-159 High 160-189 Very High >=190HEPATIC FUNCTION [id number] 13:06:00 Test Item Value Reference Range Comments [...] U/L 6-55 CBC W/PLT COUNT & AUTO [id number] 12:46:00 Test Item Value Reference Range Comments [...] % 0-1 (test code = 2801) PROTHROMBIN [id number] 12:39:00 Test Item Value Reference Range Comments [...]
--- OUTSIDE RECORDS SUMMARY | 2019-07-13 15:55 | XMS REPORT ---
[...] Status Dosage System Date Date Clonidine HCl [facility][NOTE 3] 53766116371 0.1 MG Orally Active 1 tablet at Once a day bedtime Metoprolol [facility][NOTE 3] 13992105420 50 MG Orally Active 1 ta blet with Tartrate Twice a day food Culturelle [facility][NOTE 3] 95266002915 - Orally Active not defi chad Clotrimazole [facility][NOTE 3] 84802532533 1 % Externally Active 1 application Twice a day to affected area Simvastatin [facility][NOTE 3] 49192226912 20 MG Orally Active 1 t ablet in Once a day the evening Zestoretic [facility][NOTE 3] 42241340818 20-25 MG Orally Active 1 tablet Once a day Protonix [facility][NOTE 3] 99116047931 40 MG Orally Active 1 tabl et Twice a day Creon [facility][NOTE 3] 71367000616 84720-30333 Active 1 cap UNIT Orally three times a day ProAir HFA [facility][NOTE 3] 71316734259 108 (90 Base) Apr 25, Active 2 p uffs as MCG/ACT 2019 needed Inhalation every 6 hrs PRN COugh, Wheezing or shortness of breath Estrace [facility][NOTE 3] 20310800587 0.1 MG/GM Active as directe d Vaginal twice weekly Trazodone HCl [facility][NOTE 3] 17292489909 100 MG Orally Active 1 tablet at Once a day bedtime Neurontin [facility][NOTE 3] 61943374781 300 MG Orally Active 1 ca psule Once a day before bedtime Citalopram [facility][NOTE 3] 06498469694 40 MG Orally Active 1 ta blet Hydrobromide Once a day Results No Known Results Summary Purpose eClinicalWorks Submission
[2019-07-13 17:29] LABS: Absolute Lymphocytes (CBC) 1.7 K/uL (0.7-4.9); Basophils % 1.3 % (0-1.3); Hematocrit 34.7 % (36.0-45.0); Lymphocytes % 28.6 % (15.3-44.8); MPV 8.7 fL (7.6-11.3)
[2019-07-13 17:48] LABS: ALT/SGPT 22 U/L (12-78); AST/SGOT 18 U/L (15-37); Albumin 3.2 g/dL (3.4-5.0); Alkaline Phosphatase 85 U/L (45-117); BUN Blood Urea Nitrogen 12 mg/dL (7-18); Bicarbonate 28 mmol/L (21-32); Bilirubin Direct < 0.1 mg/dL (0-0.2); Bilirubin Total 0.2 mg/dL (0.2-1.0); Glucose Level 127 mg/dL (74-106); Lipase 296 U/L (73-393); Magnesium 2.7 mg/dL (1.8-2.4); Potassium 4.6 mmol/L (3.5-5.1); Protein, Total 7.5 g/dL (6.4-8.2); Sodium Level 143 mmol/L (136-145)
[2019-07-13] MEDS ORDERED: MAGNE/ALUM HYDROXD 30 ML UCUP ONE (18:39)
[2019-07-13] MEDS ORDERED: LIDOCAINE VISCOUS 2% SOLN 15 ML UDC ONE (18:39)
[2019-07-13] MEDS ORDERED: DICYCLOMINE HCL 10 MG CAP ONE (19:04)
--- NOTE | 2019-07-13 19:27 | RAD REPORT ---
EXAM DESCRIPTION: CT - Abdomen Pelvis Wo Contrast - 07/13/2019 6:42 pm CLINICAL HISTORY: ABD PAIN COMPARISON: Abdomen Pelvis Wo Contrast dated 06/23/2019; Abdomen Pelvis Wo Contrast dated 05/02/19 TECHNIQUE: Axial [address] imaging of the abdomen and pelvis was performed without IV contrast. No IV contrast was given because of allergy, abnormal renal function, patient refusal or physician re quest. Oral contrast was given. All CT scans are performed using dose optimization technique as appropriate and may include automated exposure control or mA/KV adjustment according to patient size. FINDINGS: No suspicious findings in the lung bases. The liver and spleen show no suspicious findings. Volume loss in the pancreatic tail and body present . Remnant pancreatic tail pseudocyst is present similar to prior imaging. Trace amount of stranding n ear the pancreatic head has not changed. Gallbladder is absent. Pneumobilia is present similar to com parison. No abnormal biliary tree dilatation. No hydronephrosis or suspicious renal mass. Large lower pole nonobstructing calculus on the left has not changed. No significant adrenal finding. Isodense renal masses and pyelonephritis cannot be exclu ded in the absence of IV contrast. Contracted urinary bladder shows no suspicious findings. Pelvic fl oor laxity is present. Uterus is absent. Ovaries are absent or atrophic. No dilated bowel loops or bowel wall thickening. Prominent sigmoid diverticulosis present without div erticulitis. No free air, free fluid or pneumatosis. A nonspecific congestion to the central mesenter ic fat noted. This was seen previously. No hernia, mass or bulky lymphadenopathy. No suspicious bony findings. IMPRESSION: Noncontrast CT abdomen and pelvis imaging shows no emergent finding. Chronic pancreatitis changes are again noted. Trace amount of stranding near the pancreas is also unc hanged. Acute pancreatitis is not suspected without supporting clinical or laboratory findings. Stable pneumobilia with no biliary tree dilatation. No acute bowel finding identifiable. Full assessment is limited is the absence of IV contrast.
--- NOTE | 2019-07-13 20:38 | ER ---
Nurse's Notes [facility] Name: Isadora Bettencourt Age: 73 yrs Sex: Female : 1945 Arrival Date: 07/13/2019 Time: 15:48 Bed 14 Private MD: Dmitry Powell Diagnosis: Diarrhea, unspecified;Unspecified abdominal pain Presentation: 07/12 15:55 Chief complaint: Patient states: "I was seen here yesterday for diarrhea and nothing aa5 has changed but I am still in pain and I brought a stool sample today". Pt reports being prescribed Flagyl. Pt reports diarrhea x 1 month ago. 15:55 Coronavirus screen: Proceed with normal triage. Patient denies a cough. Patient denies aa5 shortness of breath or difficulty breathing. Patient denies measured and/or subjective temperature greater than 100.4F prior to today's visit. Patient denies travel on a cruise ship or to a country the [facility] currently lists as an affected area. Patient denies contact with known and/or suspected case of COVID-19. Ebola Screen: Patient negative for fever greater than or equal to 101.5 degrees Fahrenheit, and additional compatible Ebola Virus Disease symptoms. Initial Sepsis Screen: Does the patient meet any 2 criteria? No. Patient's initial sepsis screen is negative. Does the patient have a suspected source of infection? No. Patient's initial sepsis screen is negative. Risk Assessment: Do you want to hurt yourself or someone else? Patient reports no desire to harm self or others. Onset of symptoms was July 2019. 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 - Social history:: Smoking status: Patient denies any tobacco usage or history of. Screenin:12 Abuse screen: Denies threats or abuse. Nutritional screening: No deficits noted. Tuberculosis screening: No symptoms or risk factors identified. Fall Risk None identified. Assessment: 16:24 General: Appears in no apparent distress. Pain: Complains of pain in right upper ah quadrant Pain currently is 8 out of 10 on a pain scale. Quality of pain is described as sharp. Neuro: Level of Consciousness is awake, alert, Oriented to person, place, time, situation. Cardiovascular: Heart tones S1 S2 present. Respiratory: Breath sounds are clear bilaterally. GI: Abdomen is round Stools are reported to be diarrhea. Last BM was July 13, 2019. Bowel sounds present X 4 quads. hyperactive in right lower quadrant and left lower quadrant Reports diarrhea, nausea, since 1 month. : No signs and/or symptoms were reported regarding the genitourinary system. EENT: No signs and/or symptoms were reported regarding the EENT system. Derm: No signs and/or symptoms reported regarding the dermatologic system. Musculoskeletal: No signs and/or symptoms reported regarding the musculoskeletal system. 17:30 Reassessment: Patient and/or family updated on plan of care and expected duration. Pain ah level reassessed. 18:45 Reassessment: Reassessment: Pt given GI cocktail at this time and taken to CT scan. ah 19:45 Reassessment: Pt states that the GI cocktail was very effective. She states that she is ah feeling better at this time. 20:45 Reassessment: Pt given lomotil and a drink at this time Pt able to tolerate the drink ah with no nausea or vomiting. 21:15 Reassessment: Discharge instructions given at this time. Educated Pt on prescriptions ah and the importance of following up with the GI MD. Pt voiced understanding. Vital Signs: 15:55 BP 135 / 77; Pulse 74; Resp 18 S; Temp 98.6(O); Pulse Ox 98% on R/A; aa5 16:30 BP 168 / 84; Pulse 63; Resp 18; Pulse Ox 97% ; ah 18:00 BP 158 / 80; Pulse 65; Resp 18; Pulse Ox 98% ; ah 19:00 BP 156 / 82; Pulse 64; Resp 18; Pulse Ox 97% ; ah 20:00 BP 152 / 79; Pulse 60; Resp 18; Pulse Ox 96% ; ah 21:00 BP 150 / 80; Pulse 64; Resp 17; Pulse Ox 98% ; ah ED Course: 15:48 Patient arrived in ED. ag5 15:48 Dmitry Powell DO is Private Physician. ag5 15:55 Arm band placed on Patient placed in an exam room, on a stretcher. [facility] 16:01 Triage completed. aa 16:12 Lory Mclean, RN is Primary Nurse. 16:13 Patient has correct armband on for positive identification. Bed in low position. Call light in reach. 16:15 Anthony Osorio PA is PHCP. cp 16:15 Hollis Paz MD is Attending Physician. 18:42 CT Abd/Pelvis - Without Contrast In Process Unspecified. [facility] 20:37 Shekhar Hall MD is Referral Physician. cp Administered Medications: 18:45 Drug: GI Cocktail without - (Maalox Suspension 30 ml, Lidocaine Liquid 2 % 15 ah ml) Route: PO; 21:41 Follow up: Response: No adverse reaction; Pain is decreased 19:01 Drug: Bentyl 20 mg Route: PO; 20:01 Follow up: Response: No adverse reaction 19:14 Not Given (unable to obtain IV access): Zofran (Ondansetron) 4 mg IVP once; over 2 ah minutes 20:45 Drug: LoMOTIL 2 tabs Route: PO; 21:38 Follow up: Response: Medication administered at discharge. Outcome: 20:37 Discharge ordered by . 21:56 Patient left the ED. Addendum: 07/17/2019 11:00 Addendum: Culture Results: Positive stool culture. Prescription called-in to pharmacy a a5 of choice. to [facility] pharmacy in [place], [place], called-in Bactrim DS BID x 10 days per Virgilio Francis NP. Signatures: Dispatcher [employer] [facility] Noemi Bonner RN RN 5 Anthony Osorio PA ND Holley Sawyer 5 Lory Mclean, RN RN Corrections: (The following items were deleted from the chart) 07/12 21:37 21:36 BP 168 / 84; Pulse 63bpm; Resp 18bpm; Pulse Ox 97%; [facility] 21:43 18:30 Reassessment: [facility]
--- NOTE | 2019-07-13 20:38 | EDPHYS ---
Physician Documentation [facility] Name: Isadora Bettencourt Age: 73 yrs Sex: Female : 1945 Arrival Date: 07/13/2019 Time: 15:48 Bed 14 Private MD: Andre [facility] ED Physician Hollis Paz HPI: 07/12 16:30 This 73 yrs old Female presents to ER via Wheelchair with complaints of cp Diarrhea. 16:30 The patient presents to the emergency department with diarrhea, that is intermittent. cp 16:30 Onset: The symptoms/episode began/occurred 1 month(s) ago, and became worse 3 day(s) cp ago. Possible causes: flare up of bowel problem, chronic pancreatitis. Associated signs and symptoms: Pertinent positives: abdominal pain, Pertinent negatives: constipation, fever, GI bleeding, vomiting. Severity of symptoms: in the emergency department the symptoms are unchanged. The patient has been recently seen at the [facility] Emergency Department, yesterday, for similar complaints labs were performed, X-rays were performed, prescribed metronidazole due to concern for c-diff infection. 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 - Social history:: Smoking status: Patient denies any tobacco usage or history of. ROS: 16:35 Constitutional: Negative for body aches, chills, fever, poor PO intake. cp 16:35 Cardiovascular: Negative for chest pain, palpitations. cp 16:35 Respiratory: Negative for cough, shortness of breath, wheezing. 16:35 Abdomen/GI: Positive for abdominal pain, diarrhea, Negative for vomiting, constipation, black/tarry stool, rectal bleeding. 16:35 Back: Negative for pain at rest, pain with movement. 16:35 : Negative for urinary symptoms. 16:35 Neuro: Negative for altered mental status, headache, weakness. 16:35 All other systems are negative. Exam: 16:45 Constitutional: The patient appears in no acute distress, alert, awake, cp non-diaphoretic, non-toxic, well developed, well nourished. 16:45 Head/Face: Normocephalic, atraumatic. cp 16:45 Eyes: Periorbital structures: appear normal, Conjunctiva: normal, no exudate, no injection, Sclera: no appreciated abnormality, Lids and lashes: appear normal, bilaterally. 16:45 ENT: External ear(s): are unremarkable, Nose: is normal, Mouth: is normal, Posterior pharynx: is normal, airway is patent. 16:45 Chest/axilla: Inspection: normal, Palpation: is normal, no crepitus, no tenderness. 16:45 Cardiovascular: Rate: normal, Rhythm: regular, Edema: is not appreciated, JVD: is not appreciated. 16:45 Respiratory: the patient does not display signs of respiratory distress, Respirations: normal, no use of accessory muscles, no retractions, labored breathing, is not present, Breath sounds: are clear throughout, no decreased breath sounds, no wheezing. 16:45 Abdomen/GI: Inspection: abdomen appears normal, Bowel sounds: active, all quadrants, Palpation: soft, in all quadrants, mild abdominal tenderness, in the right upper quadrant, rebound tenderness, is not appreciated, voluntary guarding, is not appreciated, involuntary guarding, is not appreciated. 16:45 Back: pain, that is mild, of the mid back area. 16:45 Skin: no rash present. Vital Signs: 15:55 BP 135 / 77; Pulse 74; Resp 18 S; Temp 98.6(O); Pulse Ox 98% on R/A; aa5 16:30 BP 168 / 84; Pulse 63; Resp 18; Pulse Ox 97% ; ah 18:00 BP 158 / 80; Pulse 65; Resp 18; Pulse Ox 98% ; ah 19:00 BP 156 / 82; Pulse 64; Resp 18; Pulse Ox 97% ; ah 20:00 BP 152 / 79; Pulse 60; Resp 18; Pulse Ox 96% ; ah 21:00 BP 150 / 80; Pulse 64; Resp 17; Pulse Ox 98% ; ah MDM: 16:25 Patient medically screened. cp 17:00 Differential diagnosis: Nonspecific abd pain, gastritis, pancreatitis, cp choledocholithiasis, bowel obstruction. 20:36 Data reviewed: vital signs, nurses notes, lab test result(s), radiologic studies, CT cp scan. 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 Response to treatment: the patient's symptoms have mildly improved after treatment. Special discussion: Based on the patient's Hx, exam, and Dx evaluation, there is no indication for emergent surgery or inpatient Tx. It is understood by the patient/guardian that if the Sx's persist or worsen they need to return immediately for re-evaluation. 07/12 16:46 Order name: Basic Metabolic Panel; Complete Time: 17:55 cp 07/12 17:55 Interpretation: Normal except: CL 109; GLUC 127; GFR 61. cp 07/12 16:46 Order name: CBC with Diff; Complete Time: 17:55 cp 07/12 17:56 Interpretation: Normal except: WBC 6.0; HGB 11.0; HCT 34.7; MCV 78.9; MCH 25.0; MCHC cp 31.7; RDW 16.2. 07/12 16:46 Order name: Creatinine for Radiology; Complete Time: 17:55 cp 07/12 16:46 Order name: Hepatic Function; Complete Time: 17:55 cp 07/12 17:56 Interpretation: Normal except: ALB 3.2; GLOB 4.3; A/G 0.7. cp 07/12 16:46 Order name: Lipase; Complete Time: 17:55 cp 07/12 16:46 Order name: Magnesium; Complete Time: 17:55 cp 07/12 16:46 Order name: Ova And Parasites cp 07/12 16:46 Order name: Stool Culture cp 07/12 16:46 Order name: CDIFF cp 07/12 18:31 Order name: CT Abd/Pelvis - Without Contrast; Complete Time: 20:06 ca1 07/12 16:16 Order name: Orthostatics cp 07/12 16:46 Order name: Labs collected and sent; Complete Time: 21:40 cp 07/12 20:07 Order name: PO challenge; Complete Time: 21:39 cp Administered Medications: 18:45 Drug: GI Cocktail without - (Maalox Suspension 30 ml, Lidocaine Liquid 2 % 15 ah ml) Route: PO; 21:41 Follow up: Response: No adverse reaction; Pain is decreased 19:01 Drug: Bentyl 20 mg Route: PO; 20:01 Follow up: Response: No adverse reaction 19:14 Not Given (unable to obtain IV access): Zofran (Ondansetron) 4 mg IVP once; over 2 ah minutes 20:45 Drug: LoMOTIL 2 tabs Route: PO; 21:38 Follow up: Response: Medication administered at discharge. Disposition: 20:50 Chart complete. Disposition: 07/13/19 20:37 Discharged to Home. Impression: Diarrhea, unspecified, Unspecified abdominal pain. - Condition is Stable. - Discharge Instructions: Abdominal Pain, Adult, Food Choices to Help Relieve Diarrhea, Adult, Diarrhea, Adult. - Prescriptions for Bentyl 20 mg Oral Tablet - take 2 tablet by ORAL route every 6 hours As needed; 40 tablet. Zofran 4 mg Oral Tablet - take 1 tablet by ORAL route every 12 hours As needed; 20 tablet. Lomotil 2.5- 0.025 mg Oral Tablet - take 1 tablet by ORAL route every 6 hours As needed; 20 tablet. - Medication Reconciliation Form, Thank You Letter, Antibiotic Education, Prescription Opioid Use form. - Follow up: Shekhar Hall MD; When: 1 - 2 days; Reason: Recheck today's complaints. - Problem is an ongoing problem. - Symptoms have improved. Addendum: 07/17/2019 20:28 Co-signature as Attending Physician, Hollis Paz MD I agree with the assessment and k dr plan of care. Signatures: Dispatcher [employer] [facility] Hollis Pza MD MD [facility] Noemi Bonner RN RN aa5 Anthony Osorio PA PA Dina Lindsey RN RN [facility] Lory Mclean RN RN Corrections: (The following items were deleted from the chart) 07/12 16:48 16:47 MA/CREAT RATIO+CHEM UR.LAB.BRZ ordered. [facility] EDMS 18:40 17:06 Abdomen Pelvis W Con+CT.RAD.BRZ ordered. [facility]RI EDMS 21:56 20:37 07/13/2019 20:37 Discharged to Home. Impression: Diarrhea, unspecified; Unspecified abdominal pain. Condition is Stable. Forms are Medication Reconciliation Form, Thank You Letter, Antibiotic Education, Prescription Opioid Use. Follow up: Shekhar Hall; When: 1 - 2 days; Reason: Recheck today's complaints. Problem is an ongoing problem. Symptoms have improved. cp 07/13 21:00 16:30 This 73 yrs old Female presents to ER via Wheelchair with complaints of cp Diarrhea. cp
[2019-07-13] MEDS ORDERED: DIPHENOX/ATROP SULF 1 TAB PO ONE (20:57)
[2019-07-14 09:24] VITALS: TEMP 98.6
[2019-07-14 09:31] VITALS: BP 150/80; O2SAT 98
[2019-07-14 16:15] LABS: C.diff Antigen/Toxin Ag neg : Tox neg (NEG : NEG)
== END 2019-07-13 21:56 | disposition home or self-care (01) ==
LOC: ER 15:46
DX: R10.11 Right upper quadrant pain (principal)
CPT/HCPCS: 36415; 74176; 80048; 80076; 83690; 83735; 85025; 87045; 87046; 87077; 87177; 87186; 87209; 87324; 87449; 99283

== ENCOUNTER 2020-03-24 01:44 | Inpatient (IN) | payer OTHER ==
--- OUTSIDE RECORDS SUMMARY | 2020-03-24 01:45 | XMS REPORT | Clinical Summary ---
:1945 Author Organization [facility] Address [address] [place] [address] Care Team Providers Name Role Phone Dmitry Powell Primary Care Provider [phone] Allergies No Known Allergies Medications Medication Sig Dispensed Refills Start Date End Date Status pantoprazole Take 40 mg by mouth 0 Active (PROTONIX) 40 MG 2 (two) times daily tablet . [id number] Take 36,000 units of 0 Active ase [...] 11/09/2018 Essential hypertension 11/09/2018 Esophageal stricture 11/09/2018 Social History Tobacco Use Types Packs/Day Years [...] Assigned at Date Recorded Not on file Last Filed Vital Signs Not on file Plan of Treatment Health Maintenance Due Date Last Done Comments BREAST CANCER SCREENING 1945 COLON CANCER SCREENING COLONOSCOPY 1945 PNEUMOCOCCAL 65+ YRS (1 of 1 - [id number]) 12/28/2012 MEDICARE ANNUAL WELLNESS (YEAR 2 or FIRST YEAR if no 12/07/2013 IPPE) INFLUENZA VACCINE (#1) 2019 Results Not on fileafter 03/24/2019 Advance Directives For more information, please contact: [phone] Code Status Date Activated Date Inactivated Comments Full Code 11/09/2018 11:45 AM 11/11/2018 7:24 PM This code status was determined by: Patient
--- OUTSIDE RECORDS SUMMARY | 2020-03-24 01:46 | XMS REPORT | Continuity of Care Document ---
:1945 Author Organization [facility] t Address [address] [place] [address] Care Team Providers Name Role Phone Angelo Powell DO Primary Care Physician CAYLAANNA Attending Clinician Unavailable [facility] Admitting Clinician Unavailable Problems Condition Condition Condition Status Onset Resolution Last Treating Co mments Source Name Details Category Date Date Treatment Clinician Date Acute Acute Disease Active [facility] pancreatit pancreatit 11-09 Mansi kes - is is 00:00: Medical 00 [facility] Essential Essential Disease Active [facility] hypertensi hypertensi 11-09 Mansi kes - on on 00:00: Medical 00 [facility]me 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 11-09 Luke [facility] - 00:00: Medical 00 [facility]me Esophageal Esophageal Problem Active [facility] stenosis stenosis [facility] Benign Benign Problem Active [facility] essential essential Luke s - hypertensi hypertensi Me moria on on l [facility]ics Hyperlipid Hyperlipid Problem Active [facility] emia, emia, [facility] - mixed mixed Memoria l [facility] ent Clinics Chronic Chronic Problem Active [facility] GERD GERD [facility] Vitamin D Vitamin D Problem Active [facility] deficiency deficiency Mansi kes - [facility] Insomnia, Insomnia, Problem Active [facility] unspecifie unspecifie Mansi kes - d type d type [facility]oria l [facility]ics Depression Depression Problem Active [facility] with with [facility] - anxiety anxiety [facility]oria l [facility]ics Kidney Kidney Problem Active [facility] stone stone [facility] Chronic Chronic Problem Active [facility] pancreatit pancreatit Mansi kes - is is [facility]oria l [facility] Hiatal Hiatal Problem Active [facility] hernia hernia [facility] Chronic Chronic Problem Active [facility] gastritis gastritis Luke s - without without Memoria bleeding, bleeding, l unspecifie unspecifie Ou tpati d d ent gastritis gastritis Clin ics type type Duodenitis Duodenitis Problem Active [facility] Mixed Mixed Problem Active [facility] stress and stress and Mansi kes - urge urge Memoria urinary urinary l incontinen incontinen Ou tpati ce ce ent Clinics Nonalcohol Nonalcohol Problem Active [facility] ic fatty ic fatty [facility] - liver liver Memoria disease disease l [facility] Ulcer of Ulcer of Problem Active [facility] t esophagus esophagus Luke s - without without Memoria bleeding bleeding l [facility] Peripheral Peripheral Problem Active [facility] polyneurop polyneurop Mansi kes - athy athy Memoria [facility] ent Clinics Allergies, Adverse Reactions, Alerts This patient has no known allergies or adverse reactions. Social History Social Habit Start Date Stop Date Quantity Comments Source History [facility] ASPEN Jones [facility] - Alcohol Std Drinks Medica Center History [facility] Lukes - Alcohol Binge Medical Carl ter Sex Assigned At [facility] Tobacco use and 2018-11-09 2018-11-09 Never used [facility] St Nazario kes - exposure 00:00:00 00:00:00 [facility] Alcohol intake 2018-11-09 2018-11-09 [facility] non-drinker of Medical Ce nter alcohol (finding) History [facility] 2018-11-09 2018-11-[address] Nazariokes - Alcohol Frequency 00:00:00 00:00:00 [facility] Smoking Status Start Date Stop Date Source Former smoker 2018-11-09 00:00:00 2018-11-09 00:00:00 [facility] Medications Ordered Filled Start Stop Current Ordering Indication Dosage Frequency Signature Comments Components Source Medication Medication Date Date Medication? Clinician (SIG) Name Name pantoprazol 2018-0 Yes 40mg Q.5D Take 40 mg [facility] 9-06 by mouth 2 [facility] - (PROTONIX) 17:24: (two) Medica l 40 MG 08 times Center tablet daily . lipase-prot 2019- Yes 13098S{ Take [facility] ease-amylas 9-06 lipase} 36,000 [place] es - e (CREON) 17:24: units of Medi oralia 36,000-114, [address] 000- mouth 3 180,000 (three) unit CpDR times capsule daily with meals. metoprolol Yes 50mg QD Take [address] (LOPRESSOR) 9-06 by mouth Luke s - 50 MG 17:24: daily. Medical tablet 08 Acme gabapentin Yes 100mg Q.5D Take [address] (NEURONTIN) 9-06 mg by [facility]ukes - 100 MG 17:24: mouth 2 Medical capsule 08 (two) Center times daily. lisinopril Yes 40mg QD Take [address] (PRINIVIL,Z 9-06 by mouth Luke s - ESTRIL) 40 17:24: daily. Medic al MG tablet 08 Center albuterol Yes 2.5mg Take 0.[address] (PROVENTIL) 9-06 mLs (2.5 Luke s - 2.5 mg/0.5 00:00: mg total) Me dical mL Nebu 00 by Center nebulizer nebulizati solution on every 4 (four) hours as needed. Clotrimazol Clotrimazol 2019- No Dmitry [address] [facility] e e 10-12 Powell applicatio [employer] - 00:00 n to Memoria :00 affected l area Outpati ent Clinics Procedures This patient has no known procedures. Plan of Care Planned Activity Planned Date Details Comments Source Future Scheduled 2019-11-07 INFLUENZA VACCINE (#1) [facility] - Test 00:00:00 [code = INFLUENZA Medical Ce nter VACCINE (#1)] Future Scheduled 2013-12-[address] L ukes - Test 00:00:00 WELLNESS (YEAR 2 or Medical Center FIRST YEAR if no IPPE) [code = MEDICARE ANNUAL WELLNESS (YEAR 2 or FIRST YEAR if no IPPE)] Future Scheduled 2012-12-28 PNEUMOCOCCAL 65+ YRS [facility] - Test 00:00:00 (1 of 1 - Medical Center [id number]) [code = PNEUMOCOCCAL 65+ YRS (1 of 1 - [id number] PCV13)] Future Scheduled [address] [facility]yanne es - Test 00:00:00 malignant neoplasm of Medica l Center breast (procedure) [code = 480275565] Future Scheduled [address] Cheyanne es - Test 00:00:00 malignant neoplasm of Medica l Center colon (procedure) [code = 904885864] Encounters Start End Encounter Admission Attending Care Care Encounter Source Date/Time Date/Time Type Type Clinicians Facility Department ID 2019-09-29 2019-09-29 [facility] [id number] 13:46:00 13:46:00 t [facility] [employer] [facility] Family Medicine l Medicine Outpati ent Clinics 2019-09-28 2019-09-28 [facility] [id number] 11:00:00 11:00:00 t [employer] s - Drive [facility] Medicine l Medicine Outpati ent Clinics 2019-09-28 2019-09-28 [facility] [id number] 10:30:00 10:30:00 t [place] [employer] s - Drive [facility] Family Medicine l Medicine Outpati ent Clinics 2019-07-14 2019-07-14 [facility] [id number] 10:31:00 10:31:00 t [employer] s - Drive [facility] Family Medicine l Medicine Outpati ent Clinics 2018-12-15 2018-12-15 [facility] [id number] 16:00:00 16:00:00 [place] [employer] Luke s - Drive [facility] Family Medicine l Medicine Outpati ent Clinics 2018-09-14 2018-09-14 [facility] [id number] 15:45:00 15:45:00 t [place] [employer] - Drive [facility] Medicine l Medicine Outpati ent Clinics 2018-08-30 2018-08-30 [facility] [id number] 08:00:00 08:00:00 t [place] [employer] - Drive [facility] Medicine l Medicine Outpati ent Clinics 2018-06-10 2018-06-10 [facility] [id number] 16:46:00 16:46:00 [place] [employer] s - Drive [facility] Medicine Medicine Outpati ent Clinics 2018-06-09 2018-06-09 [facility] [id number] 09:18:00 09:18:00 t [facility] Luke s - Road [facility] l Medicine Outpati ent Clinics 2018-06-07 2018-06-07 [facility] [id number] 15:00:00 15:00:00 t [place] [employer] - Drive [facility] Medicine l Medicine Outpati ent Clinics 2018-04-25 2018-04-25 [facility] [id number] 09:15:00 09:15:00 [place] [employer] s - Drive [facility] Medicine Outpati ent Clinics 2018-03-09 2018-03-09 [facility] [id number] 16:00:00 16:00:00 [place] [employer] s - Drive [facility] Medicine Outpati ent Clinics 2018-03-03 2018-03-03 [facility] [id number] 08:52:00 08:52:00 [place] [employer] - Drive [facility] Medicine Outpati ent Clinics 2017-11-30 2017-11-30 [facility] [id number] 15:00:00 15:00:00 [place] [employer] - Drive [facility] Medicine Outpati ent Clinics 2017-09-30 2017-09-30 [facility] [id number] 15:00:00 15:00:00 t Specialty/U Mansi kes [facility] ent Clinics 2017-09-29 2017-09-29 [facility] [id number] 10:13:00 10:13:00 [place] [employer] - Drive [facility] Medicine Outpati ent Clinics 2017-09-28 2017-09-28 [facility] [id number] 14:00:00 14:00:00 t [place] [employer] s - Drive [facility] Medicine Outpati ent Clinics Results Test Description Test Time Test Comments Results Result Comments Source PHOSPHORUS 2018-11-11 05:54:00 Test Item Value Reference Range Interpretation Comme nts PHOSPHORUS (BEAKER) (test code = 604) 3.6 mg/dL 2.3-4.7 [id number] 05:54:00 Test Item Value Reference Range Interpretation Comments MAGNESIUM (BEAKER) (test code = 1.8 mg/dL 1.6-2.6 627) BASIC METABOLIC [id number] 05:54:00 Test Item Value Reference Range Interpretation Comments SODIUM (BEAKER) 137 meq/L 136-145 (test code = 381) POTASSIUM (BEAKER) 3.8 meq/L 3.5-5.1 (test code = 379) CHLORIDE (BEAKER) 103 meq/L 98-107 (test code = 382) CO2 (BEAKER) (test 28 meq/L 22-29 code = 355) BLOOD UREA NITROGEN 10 mg/dL 7-21 (BEAKER) (test code = 354) CREATININE (BEAKER) 0.75 mg/dL 0.57-1.25 (test code = 358) GLUCOSE RANDOM 113 mg/dL 70-105 H (BEAKER) (test code = 652) CALCIUM (BEAKER) 8.4 mg/dL 8.4-10.2 (test code = 697) EGFR (BEAKER) (test 76 mL/min/1.73 ESTIMA NANCI GFR IS code = 1092) sq m NOT ACCURATE CREATININE CLEARANCE IN PREDICTING GLOMERULAR FILTRATION RATE . ESTIMATED GFR I S NOT APPLICABLE FOR DIALYSIS PATIEN TS. HEPATIC FUNCTION [id number] 05:54:00 Test Item Value Reference Range Interpretation Comments TOTAL PROTEIN (BEAKER) (test code = 6.7 gm/dL 6.0-8.3 770) ALBUMIN (BEAKER) (test code = 1145) 3.5 g/dL 3.5-5.0 BILIRUBIN TOTAL (BEAKER) (test code 0.5 mg/dL 0.2-1.2 = 377) BILIRUBIN DIRECT (BEAKER) (test 0.2 mg/dL 0.1-0.5 code = 706) ALKALINE PHOSPHATASE (BEAKER) (test 76 U/L 40-150 code = 346) AST (SGOT) (BEAKER) (test code = 17 U/L 5-34 353) ALT (SGPT) (BEAKER) (test code = 12 U/L 6-55 347) CBC W/PLT COUNT & AUTO [id number] 05:43:00 Test Item Value Reference Range Interpretation Comments WHITE BLOOD CELL COUNT (BEAKER) 6.6 K/ L 3.5-10.5 (test code = 775) RED BLOOD CELL COUNT (BEAKER) 3.63 M/ L 3.93-5.22 L (test code = 761) HEMOGLOBIN (BEAKER) (test code = 9.3 GM/DL 11.2-15.7 L 410) HEMATOCRIT (BEAKER) (test code = 31.1 % 34.1-44.9 L 411) MEAN CORPUSCULAR VOLUME (BEAKER) 85.7 fL 79.4-94.8 (test code = 753) MEAN CORPUSCULAR HEMOGLOBIN 25.6 pg 25.6-32.2 (BEAKER) (test code = 751) MEAN CORPUSCULAR HEMOGLOBIN CONC 29.9 GM/DL 32.2-35.5 L (BEAKER) (test code = 752) RED CELL DISTRIBUTION WIDTH 15.4 % 11.7-14.4 H (BEAKER) (test code = 412) PLATELET COUNT (BEAKER) (test 157 K/CU MM 150-450 code = 756) MEAN PLATELET VOLUME (BEAKER) 10.5 fL 9.4-12.3 (test code = 754) NUCLEATED RED BLOOD CELLS 0 /100 WBC 0-0 (BEAKER) (test code = 413) NEUTROPHILS RELATIVE PERCENT 59 % (BEAKER) (test code = 429) LYMPHOCYTES RELATIVE PERCENT 26 % (BEAKER) (test code = 430) MONOCYTES RELATIVE PERCENT 11 % (BEAKER) (test code = 431) EOSINOPHILS RELATIVE PERCENT 3 % (BEAKER) (test code = 432) BASOPHILS RELATIVE PERCENT 1 % (BEAKER) (test code = 437) NEUTROPHILS ABSOLUTE COUNT 3.91 K/ L 1.56-6.13 (BEAKER) (test code = 670) LYMPHOCYTES ABSOLUTE COUNT 1.72 K/ L 1.18-3.74 (BEAKER) (test code = 414) MONOCYTES ABSOLUTE COUNT (BEAKER) 0.72 K/ L 0.24-0.36 H (test code = 415) EOSINOPHILS ABSOLUTE COUNT 0.22 K/ L 0.04-0.36 (BEAKER) (test code = 416) BASOPHILS ABSOLUTE COUNT (BEAKER) 0.04 K/ L 0.01-0.08 (test code = 417) IMMATURE GRANULOCYTES-RELATIVE 0 % 0-1 PERCENT (BEAKER) (test code = 2801) PROTHROMBIN [id number] 05:42:00 Test Item Value Reference Range Interpretation Comments PROTIME (BEAKER) (test code = 13.0 seconds 11.9-14.2 759) INR (BEAKER) (test code = 370) 1.0 <=5.9 Effective 08/03/2018: PT Reference Range ChangeNew: 11.9-14.2 Previous: 11.7- 14.7RECOMMENDED COUMADIN/WARFARIN INR THERAPY RANGESSTANDARD DOSE: 2.0-3.0 Includes: PROPHYLAXIS for venous thrombosis, systemic embolization; TREATMENT for venous thrombosis and/or pulmonary embolus.HIGH RISK: Target INR is2.5-3.5 for patients wiht mechanical heart valves.HEMOGLOBIN [id number] 07:50:00 Test Item Value Reference Range Interpretation Comments HEMOGLOBIN A1C (BEAKER) (test code = 7.1 % 4.3-6.1 H 368) [id number] 04:53:00 Test Item Value Reference Range Interpretation Comments PHOSPHORUS (BEAKER) (test code = 3.2 mg/dL 2.3-4.7 604) [id number] 04:53:00 Test Item Value Reference Range Interpretation Comments MAGNESIUM (BEAKER) (test code = 1.8 mg/dL 1.6-2.6 627) BASIC METABOLIC [id number] 04:53:00 Test Item Value Reference Range Interpretation Comments SODIUM (BEAKER) 139 meq/L 136-145 (test code = 381) POTASSIUM (BEAKER) 3.8 meq/L 3.5-5.1 (test code = 379) CHLORIDE (BEAKER) 106 meq/L 98-107 (test code = 382) CO2 (BEAKER) (test 27 meq/L 22- code = 355) BLOOD UREA NITROGEN 15 mg/dL 7-21 (BEAKER) (test code = 354) CREATININE (BEAKER) 0.78 mg/dL 0.57-1.25 (test code = 358) GLUCOSE RANDOM 149 mg/dL 70-105 H (BEAKER) (test code = 652) CALCIUM (BEAKER) 8.5 mg/dL 8.4-10.2 (test code = 697) EGFR (BEAKER) (test 73 mL/min/1.73 ESTIMA NANCI GFR IS code = 1092) sq m NOT ACCURATE CREATININE CLEARANCE IN PREDICTING GLOMERULAR FILTRATION RATE . ESTIMATED GFR I S NOT APPLICABLE FOR DIALYSIS PATIEN TS. HEPATIC FUNCTION [id number] 04:53:00 Test Item Value Reference Range Interpretation Comments TOTAL PROTEIN (BEAKER) (test code = 6.9 gm/dL 6.0-8.3 770) ALBUMIN (BEAKER) (test code = 1145) 3.5 g/dL 3.5-5.0 BILIRUBIN TOTAL (BEAKER) (test code 0.7 mg/dL 0.2-1.2 = 377) BILIRUBIN DIRECT (BEAKER) (test 0.2 mg/dL 0.1-0.5 code = 706) ALKALINE PHOSPHATASE (BEAKER) (test 81 U/L 40-150 code = 346) AST (SGOT) (BEAKER) (test code = 14 U/L 5-34 353) ALT (SGPT) (BEAKER) (test code = 12 U/L 6-55 347) PROTHROMBIN [id number] 04:19:00 Test Item Value Reference Range Interpretation Comments PROTIME (BEAKER) (test code = 14.3 seconds 11.9-14.2 H 759) INR (BEAKER) (test code = 370) 1.2 <=5.9 Effective 08/03/2018: PT Reference Range ChangeNew: 11.9-14.2 Previous: 11.7- 14.7RECOMMENDED COUMADIN/WARFARIN INR THERAPY RANGESSTANDARD DOSE: 2.0-3.0 Includes: PROPHYLAXIS for venous thrombosis, systemic embolization; TREATMENT for venous thrombosis and/or pulmonary embolus.HIGH RISK: Target INR is2.5-3.5 for patients wiht mechanical heart valves.CBC W/PLT COUNT & AUTO [id number] 04:14:00 Test Item Value Reference Range Interpretation Comments WHITE BLOOD CELL COUNT (BEAKER) 8.5 K/ L 3.5-10.5 (test code = 775) RED BLOOD CELL COUNT (BEAKER) 3.90 M/ L 3.93-5.22 L (test code = 761) HEMOGLOBIN (BEAKER) (test code = 9.9 GM/DL 11.2-15.7 L 410) HEMATOCRIT (BEAKER) (test code = 33.2 % 34.1-44.9 L 411) MEAN CORPUSCULAR VOLUME (BEAKER) 85.1 fL 79.4-94.8 (test code = 753) MEAN CORPUSCULAR HEMOGLOBIN 25.4 pg 25.6-32.2 L (BEAKER) (test code = 751) MEAN CORPUSCULAR HEMOGLOBIN CONC 29.8 GM/DL 32.2-35.5 L (BEAKER) (test code = 752) RED CELL DISTRIBUTION WIDTH 15.6 % 11.7-14.4 H (BEAKER) (test code = 412) PLATELET COUNT (BEAKER) (test 210 K/CU MM 150-450 code = 756) MEAN PLATELET VOLUME (BEAKER) 10.0 fL 9.4-12.3 (test code = 754) NUCLEATED RED BLOOD CELLS 0 /100 WBC 0-0 (BEAKER) (test code = 413) NEUTROPHILS RELATIVE PERCENT 68 % (BEAKER) (test code = 429) LYMPHOCYTES RELATIVE PERCENT 20 % (BEAKER) (test code = 430) MONOCYTES RELATIVE PERCENT 9 % (BEAKER) (test code = 431) EOSINOPHILS RELATIVE PERCENT 3 % (BEAKER) (test code = 432) BASOPHILS RELATIVE PERCENT 0 % (BEAKER) (test code = 437) NEUTROPHILS ABSOLUTE COUNT 5.76 K/ L 1.56-6.13 (BEAKER) (test code = 670) LYMPHOCYTES ABSOLUTE COUNT 1.68 K/ L 1.18-3.74 (BEAKER) (test code = 414) MONOCYTES ABSOLUTE COUNT (BEAKER) 0.80 K/ L 0.24-0.36 H (test code = 415) EOSINOPHILS ABSOLUTE COUNT 0.23 K/ L 0.04-0.36 (BEAKER) (test code = 416) BASOPHILS ABSOLUTE COUNT (BEAKER) 0.03 K/ L 0.01-0.08 (test code = 417) IMMATURE GRANULOCYTES-RELATIVE 0 % 0-1 PERCENT (BEAKER) (test code = 2801) [id number] 14:44:00 Test Item Value Reference Range Interpretation Comments LIPASE (BEAKER) (test code = 749) 972 U/L 8-78 H [id number] 13:06:00 Test Item Value Reference Range Interpretation Comments PHOSPHORUS (BEAKER) (test code = 3.3 mg/dL 2.3-4.7 604) [id number] 13:06:00 Test Item Value Reference Range Interpretation Comments MAGNESIUM (BEAKER) (test code = 2.0 mg/dL 1.6-2.6 627) BASIC METABOLIC [id number] 13:06:00 Test Item Value Reference Range Interpretation Comments SODIUM (BEAKER) 141 meq/L 136-145 (test code = 381) POTASSIUM (BEAKER) 4.3 meq/L 3.5-5.1 (test code = 379) CHLORIDE (BEAKER) 105 meq/L 98-107 (test code = 382) CO2 (BEAKER) (test 26 meq/L 22-29 code = 355) BLOOD UREA NITROGEN 12 mg/dL 7-21 (BEAKER) (test code = 354) CREATININE (BEAKER) 0.80 mg/dL 0.57-1.25 (test code = 358) GLUCOSE RANDOM 159 mg/dL 70-105 H (BEAKER) (test code = 652) CALCIUM (BEAKER) 8.9 mg/dL 8.4-10.2 (test code = 697) EGFR (BEAKER) (test 71 mL/min/1.73 ESTIMA NANCI GFR IS code = 1092) sq m NOT ACCURATE CREATININE CLEARANCE IN PREDICTING GLOMERULAR FILTRATION RATE . ESTIMATED GFR I S NOT APPLICABLE FOR DIALYSIS PATIEN TS. LIPID [id number] 13:06:00 Test Item Value Reference Range Interpretation Comments TRIGLYCERIDES (BEAKER) (test code = 210 mg/dL 540) CHOLESTEROL (BEAKER) (test code = 213 mg/dL 631) HDL CHOLESTEROL (BEAKER) (test code 56 mg/dL = 976) LDL CHOLESTEROL CALCULATED (BEAKER) 115 mg/dL (test code = 633) Triglyceride Reference Range: Low Risk <150 Borderline 150-199 High Risk 200-499 Very High Risk >=500Cholesterol Reference Range: Low Risk <200 Borderline 200-239 High Risk >240HDL Cholesterol Reference Range: Low Risk >=60 High Risk <40LDL Cholesterol Reference Range: Optimal <100 Near Optimal 100-129 Borderline 130-159 High 160-189 Very High >=190HEPATIC FUNCTION [id number] 13:06:00 Test Item Value Reference Range Interpretation Comments TOTAL PROTEIN (BEAKER) (test code = 8.2 gm/dL 6.0-8.3 770) ALBUMIN (BEAKER) (test code = 1145) 4.1 g/dL 3.5-5.0 BILIRUBIN TOTAL (BEAKER) (test code 0.5 mg/dL 0.2-1.2 = 377) BILIRUBIN DIRECT (BEAKER) (test 0.1 mg/dL 0.1-0.5 code = 706) ALKALINE PHOSPHATASE (BEAKER) (test 94 U/L 40-150 code = 346) AST (SGOT) (BEAKER) (test code = 17 U/L 5-34 353) ALT (SGPT) (BEAKER) (test code = 18 U/L 6-55 347) CBC W/PLT COUNT & AUTO [id number] 12:46:00 Test Item Value Reference Range Interpretation Comments WHITE BLOOD CELL COUNT (BEAKER) 11.1 K/ L 3.5-10.5 H (test code = 775) RED BLOOD CELL COUNT (BEAKER) 4.27 M/ L 3.93-5.22 (test code = 761) HEMOGLOBIN (BEAKER) (test code = 11.0 GM/DL 11.2-15.7 L 410) HEMATOCRIT (BEAKER) (test code = 35.9 % 34.1-44.9 411) MEAN CORPUSCULAR VOLUME (BEAKER) 84.1 fL 79.4-94.8 (test code = 753) MEAN CORPUSCULAR HEMOGLOBIN 25.8 pg 25.6-32.2 (BEAKER) (test code = 751) MEAN CORPUSCULAR HEMOGLOBIN CONC 30.6 GM/DL 32.2-35.5 L (BEAKER) (test code = 752) RED CELL DISTRIBUTION WIDTH 15.4 % 11.7-14.4 H (BEAKER) (test code = 412) PLATELET COUNT (BEAKER) (test 233 K/CU MM 150-450 code = 756) MEAN PLATELET VOLUME (BEAKER) 10.4 fL 9.4-12.3 (test code = 754) NUCLEATED RED BLOOD CELLS 0 /100 WBC 0-0 (BEAKER) (test code = 413) NEUTROPHILS RELATIVE PERCENT 81 % (BEAKER) (test code = 429) LYMPHOCYTES RELATIVE PERCENT 12 % (BEAKER) (test code = 430) MONOCYTES RELATIVE PERCENT 6 % (BEAKER) (test code = 431) EOSINOPHILS RELATIVE PERCENT 0 % (BEAKER) (test code = 432) BASOPHILS RELATIVE PERCENT 0 % (BEAKER) (test code = 437) NEUTROPHILS ABSOLUTE COUNT 9.05 K/ L 1.56-6.13 H (BEAKER) (test code = 670) LYMPHOCYTES ABSOLUTE COUNT 1.34 K/ L 1.18-3.74 (BEAKER) (test code = 414) MONOCYTES ABSOLUTE COUNT (BEAKER) 0.62 K/ L 0.24-0.36 H (test code = 415) EOSINOPHILS ABSOLUTE COUNT 0.04 K/ L 0.04-0.36 (BEAKER) (test code = 416) BASOPHILS ABSOLUTE COUNT (BEAKER) 0.02 K/ L 0.01-0.08 (test code = 417) IMMATURE GRANULOCYTES-RELATIVE 0 % 0-1 PERCENT (BEAKER) (test code = 2801) PROTHROMBIN [id number] 12:39:00 Test Item Value Reference Range Interpretation Comments PROTIME (BEAKER) (test code = 13.4 seconds 11.9-14.2 759) INR (BEAKER) (test code = 370) 1.1 <=5.9 Effective 08/03/2018: PT Reference Range ChangeNew: 11.9-14.2 Previous: 11.7- 14.7RECOMMENDED COUMADIN/WARFARIN INR THERAPY RANGESSTANDARD DOSE: 2.0-3.0 Includes: PROPHYLAXIS for venous thrombosis, systemic embolization; TREATMENT for venous thrombosis and/or pulmonary embolus.HIGH RISK: Target INR is2.5-3.5 for patients wiht mechanical heart valves.
[2020-03-24 02:36] LABS: Absolute Lymphocytes (CBC) 1.9 K/uL (0.7-4.9); Basophils % 0.8 % (0-1.3); Hematocrit 35.9 % (36.0-45.0); Lymphocytes % 21.2 % (15.3-44.8); MPV 8.7 fL (7.6-11.3); RBC Red Blood Cell Count 4.46 M/uL (3.86-4.86)
[2020-03-24 02:37] LABS: Protime INR 0.97
[2020-03-24 02:50] LABS: ALT/SGPT 14 U/L (12-78); AST/SGOT 12 U/L (15-37); Alkaline Phosphatase 86 U/L (45-117); Amylase 69 U/L (25-115); BUN Blood Urea Nitrogen 16 mg/dL (7-18); Bicarbonate 26 mmol/L (21-32); Bilirubin Direct < 0.1 mg/dL (0-0.2); Bilirubin Total 0.3 mg/dL (0.2-1.0); Glucose Level 217 mg/dL (74-106); Lipase 296 U/L (73-393); Magnesium 2.3 mg/dL (1.8-2.4); NT PRO-BNP 489 pg/mL (<125); Potassium 4.2 mmol/L (3.5-5.1); Protein, Total 7.3 g/dL (6.4-8.2); Sodium Level 138 mmol/L (136-145); Troponin (Emerg Dept Use Only) < 0.02 ng/mL (0.0-0.045)
[2020-03-24] MEDS ORDERED: HYDROMORPHONE HCL 1 MG/ML INJ ONE (03:22)
[2020-03-24] MEDS ORDERED: ONDANSETRON 4 MG/2 ML VIAL ONE ×2 (03:22→04:17)
[2020-03-24 04:56] LABS: Urine Blood TRACE (NEG); Urine Glucose TRACE (NEG); Urine Protein NEGATIVE (NEG)
[2020-03-24 05:11] LABS: Urine Bacteria 20-50 /HPF (<20); Urine Mucus 1+ /HPF (NONE SEEN)
--- NOTE | 2020-03-24 05:29 | EDPHYS ---
Physician Documentation [facility] Name: Isadora Bettencourt Age: 74 yrs Sex: Female : 1945 Arrival Date: 03/24/2020 Time: 01:52 Bed 4 Private MD: ED Physician Gil Garcia HPI: 03/24 03:30 This 74 yrs old Female presents to ER via EMS with complaints of Chest Pain. mh7 03:30 The patient or guardian reports chest pain that is located primarily in the substernal mh7 area. Onset: today. The pain does not radiate. 03:30 Associated signs and symptoms: Pertinent positives: abdominal pain, nausea, Pertinent mh7 negatives: cough, diaphoresis, dizziness, headache, lower extremity pain, lower extremity swelling, lightheadedness, near syncope, palpitations, recent travel, shortness of breath, syncope, vomiting. The chest pain is described as a pressure. Duration: The patient or guardian reports multiple episodes, that are intermittent, that wax and wane, with no pattern. Modifying factors: The symptoms are alleviated by nothing. the symptoms are aggravated by nothing. Severity of pain: At its worst the pain was moderate today, in the emergency department the pain has improved moderately. EMS care prior to arrival includes: aspirin, nitroglycerin, x 1, with partial relief of the chest pain. 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 - Social history:: Smoking status: unknown Patient/guardian denies using alcohol, street drugs. ROS: 03:30 Constitutional: Negative for fever, chills, and weight loss, Eyes: Negative for injury, mh7 pain, redness, and discharge, ENT: Negative for injury, pain, and discharge, Neck: Negative for injury, pain, and swelling, Respiratory: Negative for shortness of breath, cough, wheezing, and pleuritic chest pain, Back: Negative for injury and pain, : Negative for injury, bleeding, discharge, and swelling, MS/Extremity: Negative for injury and deformity, Skin: Negative for injury, rash, and discoloration, Neuro: Negative for headache, weakness, numbness, tingling, and seizure, Psych: Negative for depression, anxiety, suicide ideation, homicidal ideation, and hallucinations, Allergy/Immunology: Negative for hives, rash, and allergies, Endocrine: Negative for neck swelling, polydipsia, polyuria, polyphagia, and marked weight changes, Hematologic/Lymphatic: Negative for swollen nodes, abnormal bleeding, and unusual bruising. Exam: 03:30 Constitutional: This is a well developed, well nourished patient who is awake, alert, mh7 and in no acute distress. Head/Face: Normocephalic, atraumatic. Eyes: Pupils equal round and reactive to light, extra-ocular motions intact. Lids and lashes normal. Conjunctiva and sclera are non-icteric and not injected. Cornea within normal limits. Periorbital areas with no swelling, redness, or edema. Neck: Trachea midline, no thyromegaly or masses palpated, and no cervical lymphadenopathy. Supple, full range of motion without nuchal rigidity, or vertebral point tenderness. No Meningismus. Chest/axilla: Normal chest wall appearance and motion. Nontender with no deformity. No lesions are appreciated. Cardiovascular: Regular rate and rhythm with a normal S1 and S2. No gallops, murmurs, or rubs. Normal PMI, no JVD. No pulse deficits. Respiratory: Lungs have equal breath sounds bilaterally, clear to auscultation and percussion. No rales, rhonchi or wheezes noted. No increased work of breathing, no retractions or nasal flaring. 03:30 Back: No spinal tenderness. No costovertebral tenderness. Full range of motion. Skin: Warm, dry with normal turgor. Normal color with no rashes, no lesions, and no evidence of cellulitis. MS/ Extremity: Pulses equal, no cyanosis. Neurovascular intact. Full, normal range of motion. Neuro: Awake and alert, GCS 15, oriented to person, place, time, and situation. Cranial nerves II-XII grossly intact. Motor strength 5/5 in all extremities. Sensory grossly intact. Cerebellar exam normal. Normal gait. Psych: Awake, alert, with orientation to person, place and time. Behavior, mood, and affect are within normal limits. 03:30 Abdomen/GI: Inspection: obese Bowel sounds: normal, in all quadrants, Palpation: moderate abdominal tenderness, in the epigastric area, Rectal exam: the exam is deferred, because of patient request, Indicators: McBurney's point is not tender, Bowens's sign is negative, Rovsing's sign is negative, Obturator sign is negative, Psoas sign is negative, Liver: no appreciated palpable abnormalities, Hernia: not appreciated. Vital Signs: 01:50 BP 114 / 68; Pulse 80; Resp 17; Temp 98; Pulse Ox 98% ; Weight 81.65 kg; Height 5 ft. 1 rr5 in. (154.94 cm); Pain 7/10; 03:10 BP 126 / 84; Pulse 86; Resp 19; Pulse Ox 99% ; Pain 8/10; rr5 04:00 BP 131 / 89; Pulse 59; Resp 17; Pulse Ox 98% ; rr5 05:00 BP 125 / 57; Pulse 60; Resp 16; Pulse Ox 98% ; rr5 05:55 BP 155 / 74; Pulse 62; Resp 16; Pulse Ox 99% ; rr5 01:50 Body Mass Index 34.01 (81.65 kg, 154.94 cm) rr5 MDM: 05:25 Differential diagnosis: abnormal EKG, acute myocardial infarction, acute pericarditis, mh7 anxiety, coronary artery disease chest wall pain, congestive heart failure costochondritis, gastritis, gastroesophageal reflux disease (GERD), pancreatitis, peptic ulcer disease, pericarditis, pleurisy, pneumonia, pulmonary embolus. HEART Score: History: Moderately Suspicious (1), ECG: Non specific repolarization disturbance / LBTB / PM (1), Age: > or = 65 years (2), Risk Factors: 1 or 2 risk factors (1), [Hypercholesterolemia] [Hypertension] Troponin: < or = 1 x Normal Limit (0), Total Score = 5. Data reviewed: vital signs, nurses notes, EMS record, old medical records, lab test result(s), CBC, electrolytes, urinalysis, EKG, radiologic studies, CT scan, plain films. Data interpreted: Pulse oximetry: on room air is 99 %. Interpretation: normal. Counseling: I had a detailed discussion with the patient and/or guardian regarding: the historical points, exam findings, and any diagnostic results supporting the discharge/admit diagnosis, lab results, radiology results, the need for further work-up and treatment in the hospital. Response to treatment: the patient's symptoms have mildly improved after treatment. 05:28 Patient medically screened. [facility] 03/24 01:59 Order name: Basic Metabolic Panel [facility] 03/24 01:59 Order name: CBC with Diff; Complete Time: 03:27 [facility] 03/24 01:59 Order name: LFT's; Complete Time: 03:27 [facility] 03/24 01:59 Order name: Magnesium; Complete Time: 03:27 [facility] 03/24 01:59 Order name: NT PRO-BNP; Complete Time: 03:27 [facility] 03/24 01:59 Order name: PT-INR; Complete Time: 03:27 [facility] 03/24 01:59 Order name: Troponin (emerg Dept Use Only); Complete Time: 03:27 [facility] 03/24 01:59 Order name: Lipase; Complete Time: 03:27 [facility] 03/24 01:59 Order name: Amylase, Serum; Complete Time: 03:27 [facility] 03/24 02:01 Order name: Basic Metabolic Panel; Complete Time: 03:27 [facility] 03/24 04:49 Order name: Urine Microscopic Only; Complete Time: 05:24 5 03/24 04:49 Order name: Urine Culture [facility] 03/24 04:53 Order name: Urine Dipstick--Ancillary (enter results); Complete Time: 05:24 mw2 03/24 05:37 Order name: COVID-19 mg2 03/24 01:59 Order name: XRAY Chest (1 view) [facility] 03/24 03:28 Order name: CT Chest For PE Angio [facility] 03/24 03:28 Order name: CT Abd/Pelvis - IV Contrast Only [facility] 03/24 05:50 Order name: CBC with Automated Diff [facility] 03/24 05:50 Order name: CBC with Automated Diff [facility] 03/24 05:50 Order name: Comprehensive Metabolic Panel [facility] 03/24 05:50 Order name: Comprehensive Metabolic Panel [facility] 03/24 05:50 Order name: Troponin I [facility] 03/24 05:50 Order name: Troponin I [facility] 03/24 05:50 Order name: Troponin I [facility] 03/24 06:55 Order name: SARS-COV-2 RT PCR [facility] 03/24 01:59 Order name: EKG; Complete Time: 02:03/24 01:59 Order name: Cardiac monitoring; Complete Time: 02:03/24 01:59 Order name: EKG - Nurse/Tech; Complete Time: 02:03/24 01:59 Order name: IV Saline Lock; Complete Time: 02:03/24 01:59 Order name: Labs collected and sent; Complete Time: 02:03/24 01:59 Order name: O2 Per Protocol; Complete Time: 02:03/24 01:59 Order name: O2 Sat Monitoring; Complete Time: 02:03/24 05:50 Order name: CONS Pharmacy Consult [facility] 03/24 05:50 Order name: NPO [facility] Administered Medications: 03:08 Drug: Zofran (Ondansetron) 4 mg Route: IVP; Site: right hand; rr5 03:47 Follow up: Response: No adverse reaction mg2 03:10 Drug: Dilaudid 1 mg {Note: rass 0.} Route: IVP; Site: right hand; rr5 03:47 Follow up: Response: No adverse reaction mg2 04:00 Drug: Zofran (Ondansetron) 4 mg Route: IVP; Site: right forearm; rr5 05:28 Follow up: Response: No adverse reaction mg2 05:33 Drug: Reglan 10 mg Route: IVP; Site: right forearm; mg2 05:50 Drug: Rocephin 1 grams Route: IV; Rate: calculated rate; Site: right hand; rr5 08:16 Follow up: Response: No adverse reaction; IV Status: Completed infusion; IV Intake: 10mlem Disposition: 03/24/20 05:28 Hospitalization ordered by Tim Ayala for Observation. Preliminary diagnosis are Chest pain, unspecified, Acute Pancreatitis. - Bed requested for Telemetry/MedSurg (observation). - Status is Observation. em - Condition is Stable. - Problem is new. - Symptoms have improved. Signatures: Dispatcher [employer] EDNichol Amezquita RN RN dw Fernando Hill, RN RN em Roger Paul, SHARMAINE RN [facility] Jeremiah Long RN RN rr5 Gil Garcia MD MD 7 Corrections: (The following items were deleted from the chart) 07:54 05:28 Hospitalization Ordered by Tim Ayala MD for Observation. Preliminary dw diagnosis is Chest pain, unspecified; Acute Pancreatitis. Bed requested for Telemetry/MedSurg (observation). Status is Observation. Condition is Stable. Problem is new. Symptoms have improved. 7 08:30 07:54 03/24/2020 05:28 Hospitalization Ordered by Tim Ayala MD for Observation. em Preliminary diagnosis is Chest pain, unspecified; Acute Pancreatitis. Bed requested for Telemetry/MedSurg (observation). Status is Observation. Condition is Stable. Problem is new. Symptoms have improved. dw
--- NOTE | 2020-03-24 05:29 | ER ---
Nurse's Notes [facility] Jaswinder Name: Isadora Bettencourt Age: 74 yrs Sex: Female : 1945 Arrival Date: 03/24/2020 Time: 01:52 Bed 4 Private MD: Diagnosis: Chest pain, unspecified;Acute Pancreatitis Presentation: 03/24 01:50 Chief complaint: Patient's son or daughter states: patient complaint of chest pain rr5 started couple of hours ago while watching TV. 01:50 Coronavirus screen: Client denies travel out of the [place] in the last 14 days. At this rr5 time, the client does not indicate any symptoms associated with coronavirus-19. Ebola Screen: Patient negative for fever greater than or equal to 101.5 degrees Fahrenheit, and additional compatible Ebola Virus Disease symptoms Patient denies exposure to infectious person. Patient denies travel to an Ebola-affected area in the 21 days before illness onset. Initial Sepsis Screen: Does the patient meet any 2 criteria? No. Patient's initial sepsis screen is negative. Does the patient have a suspected source of infection? No. Patient's initial sepsis screen is negative. Risk Assessment: Do you want to hurt yourself or someone else? Patient reports no desire to harm self or others. Onset of symptoms was March 24, 2020. Care prior to arrival: Medication(s) given: ASA, 325 mg, Nitroglycerin, 0.4 mg SL x 1. 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 - Social history:: Smoking status: unknown Patient/guardian denies using alcohol, street drugs. Screenin:00 Abuse screen: Denies threats or abuse. Denies injuries from another. Nutritional rr5 screening: No deficits noted. Tuberculosis screening: No symptoms or risk factors identified. Fall Risk IV access (20 points). Total Mitchell Fall Scale indicates No Risk (0-24 pts). Assessment: 02:00 General: Appears in no apparent distress. comfortable, Behavior is calm, cooperative, rr5 appropriate for age. 02:00 Pain: Complains of pain in epigastric area Pain radiates to chest Pain Quality of pain rr5 is described as aching, Pain began gradually. Neuro: Level of Consciousness is awake, alert, obeys commands, Oriented to person, place, time, situation. Cardiovascular: Reports chest pain, palpitations, Capillary refill < 3 seconds Patient's skin is warm and dry. Respiratory: Airway is patent Respiratory effort is even, unlabored, Respiratory pattern is regular, symmetrical. GI: Reports epigastric pain. : No signs and/or symptoms were reported regarding the genitourinary system. EENT: No signs and/or symptoms were reported regarding the EENT system. Derm: Skin is intact, is healthy with good turgor, Skin temperature is warm. Musculoskeletal: Capillary refill < 3 seconds. 03:10 Reassessment: Patient appears in no apparent distress at this time. Patient is alert, rr5 oriented x 3, equal unlabored respirations, skin warm/dry/pink. complaint of chest pain and nausea, ED provider aware with order made and carried out. 04:05 Reassessment: Patient appears in no apparent distress at this time. Patient and/or rr5 family updated on plan of care and expected duration. Pain level reassessed. Patient is alert, oriented x 3, equal unlabored respirations, skin warm/dry/pink. awaiting for results. 05:00 Reassessment: Patient appears in no apparent distress at this time. complaint of nausea rr5 ED provider with order made and carried out. 05:30 Reassessment: Patient appears in no apparent distress at this time. Patient is alert, rr5 oriented x 3, equal unlabored respirations, skin warm/dry/pink. hospitalist at bedside.. 07:50 Reassessment: Patient appears in no apparent distress at this time. Patient and/or em family updated on plan of care and expected duration. Pain level reassessed. informed pt of covid NEG status, pending room assignment. Vital Signs: 01:50 BP 114 / 68; Pulse 80; Resp 17; Temp 98; Pulse Ox 98% ; Weight 81.65 kg; Height 5 ft. 1 rr5 in. (154.94 cm); Pain 7/10; 03:10 BP 126 / 84; Pulse 86; Resp 19; Pulse Ox 99% ; Pain 8/10; rr5 04:00 BP 131 / 89; Pulse 59; Resp 17; Pulse Ox 98% ; rr5 05:00 BP 125 / 57; Pulse 60; Resp 16; Pulse Ox 98% ; rr5 05:55 BP 155 / 74; Pulse 62; Resp 16; Pulse Ox 99% ; rr5 01:50 Body Mass Index 34.01 (81.65 kg, 154.94 cm) rr5 ED Course: 01:52 Patient arrived in ED. cl3 01:53 Jeremiah Long, RN is Primary Nurse. rr5 01:54 Triage completed. rr5 01:57 Arm band placed on left wrist. rr5 01:57 Patient has correct armband on for positive identification. Placed in gown. Bed in low rr5 position. Call light in reach. Side rails up X2. pvc monitor on. Pulse ox on. NIBP on. 01:59 Gil Garcia MD is Attending Physician. mh7 02:20 Inserted saline lock: 20 gauge in right forearm, using aseptic technique. rr5 02:22 Inserted saline lock: 22 gauge in right hand, using aseptic technique. Blood collected. rr5 02:27 XRAY Chest (1 view) In Process Unspecified. EDMS 04:49 CT Chest For PE Angio In Process Unspecified. EDMS 04:50 CT Abd/Pelvis - IV Contrast Only In Process Unspecified. EDMS 05:27 Tim Ayala MD is Hospitalizing Provider. mh7 05:53 COVID swab sent to lab. rr5 05:57 No provider procedures requiring assistance completed. Patient admitted, IV remains in rr5 place. intact, No redness/swelling at site. 07:09 Primary Nurse role handed off by Jeremiah Long, SHARMAINE eb 07:31 Fernando Hill, RN is Primary Nurse. em Administered Medications: 03:08 Drug: Zofran (Ondansetron) 4 mg Route: IVP; Site: right hand; rr5 03:47 Follow up: Response: No adverse reaction mg2 03:10 Drug: Dilaudid 1 mg {Note: rass 0.} Route: IVP; Site: right hand; rr5 03:47 Follow up: Response: No adverse reaction mg2 04:00 Drug: Zofran (Ondansetron) 4 mg Route: IVP; Site: right forearm; rr5 05:28 Follow up: Response: No adverse reaction mg2 05:33 Drug: Reglan 10 mg Route: IVP; Site: right forearm; mg2 05:50 Drug: Rocephin 1 grams Route: IV; Rate: calculated rate; Site: right hand; rr5 08:16 Follow up: Response: No adverse reaction; IV Status: Completed infusion; IV Intake: 10mlem Intake: 08:16 IV: 10ml; Total: 10ml. em Outcome: 05:28 Decision to Hospitalize by Provider. [facility] 08:27 Admitted to Med/surg accompanied by tech, via wheelchair, room 225, with chart, Report em called to SHARMAINE Schmid 08:27 Condition: good 08:27 Instructed on the need for admit, Demonstrated understanding of instructions. 08:30 Patient left the ED. em Signatures: Dispatcher [employer] Fernando Vaca RN RN em Carlee Morocho Michele, RN RN mg2 Jeremiah Long RN RN rr5 Patience Forte3 Gil Garcia MD MD 7 Corrections: (The following items were deleted from the chart) 06:01 05:55 BP 121 / 74; Pulse 62bpm; Resp 16bpm; Pulse Ox 99%; rr5 rr5
[2020-03-24] MEDS ORDERED: MORPHINE 2 MG/ML SYR IV PRN (05:45)
[2020-03-24] MEDS ORDERED: ACETAMINOPHEN 500 MG TAB PO PRN (05:45)
[2020-03-24] MEDS ORDERED: METOCLOPRAMIDE 10 MG/2mL INJ ONE (05:47)
[2020-03-24] MEDS ORDERED: SODIUM CHLORIDE 0.9% 10ML INJ IV PRN (05:49)
[2020-03-24] MEDS ORDERED: CEFTRIAXONE/SWI 1gm 1 GM/10 ML SYR ONE (05:49)
--- NOTE | 2020-03-24 05:50 | P.HP ---
Certification for Inpatient Patient admitted to: Inpatient With expected LOS: >2 Midnights Practitioner: I am a practitioner with admitting privileges, knowledge of patient current condition, hospital course, and medical plan of care. Services: Services provided to patient in accordance with Admission requirements found in Title 42 Section 412.3 of the Code of Federal Regulations Patient History Date of Service: 03/24/20 Reason for admission: Abdominal pain History of Present Illness: 74 yo female with past medical history of hypertension, hyperlipidemia, chronic pancreatitis, hiatal hernia with GERD, anxiety, followed by Dr. Smith as outpatient ABX with chest pain and abdominal pain which has been going on for the last 1 day. patient states that the pain started insidiously in the substernal area and radiating to the back as well as epigastrium. Associated with nausea and vomiting. Denies any diaphoresis. No fever or chills. Chest pain described as pressure-like feeling and pain is intermittent. Had previous history of LHC with no stents placed. Patient was assessed in the ER and was workup was consistent with acute on chronic pancreatitis and was admitted for further management. At the time of interview, patient denies any chest pain Patient being admitted for further management of acute on chronic pancreatitis and to rule out ACS Allergies No Known Allergies Allergy (Unverified 05/02/19 22:32) Home medications list reviewed: Yes Home Medications: Nystatin Oint [Mycostatin 100 Mu/Gm Oint*] 1 cem TOP BID 05/02/19 Amlodipine Besylate 10 mg PO DAILY #30 tablet 05/05/19 Pantoprazole [Protonix Tab] 40 mg PO DAILY #30 tab 05/05/19 carvediloL [Coreg] 6.25 mg PO BID #60 tab 05/05/19 - Past Medical/Surgical History Diabetic: No Past Medical History: Reviewed- Non-Contributory -: Chronic pancreatitis -: Gastroesophageal reflux disease w Hiatal hernia -: Esophageal spasm -: Attention deficit disorder -: Hypertension -: Depression with anxiety -: Hyperlipidemia -: Chronic pain -: Fatty liver, nonalcoholic -: Urinary incontinence/Nephrolithiasis -: Recurrent UTI Past Surgical History: Reviewed- Non-Contributory -: Hysterectomy -: Cholecystectomy -: Appendectomy -: back surgery -: knee surgery -: foot surgery -: EGD/ERCP -: Cardiac catheterization, no stent Psychosocial/ Personal History: Patient lives at home - Family History Father -: Diabetes Notes: Type 2 Mother -: Diabetes Notes: Hypoglycemia Sister Notes: epilepsy - Social History Smoking Status: Never smoker Alcohol use: No CD- Drugs: No Caffeine use: Yes Review of Systems 10-point ROS is otherwise unremarkable Physical Examination - Vital Signs Temperature: 97.8 F Blood Pressure: 122/76 Pulse: 78 Respirations: 18 - Physical Exam General: Alert, In no apparent distress, Oriented x3 HEENT: Atraumatic, Normocephalic Neck: Supple Respiratory: Clear to auscultation bilaterally, Normal air movement Cardiovascular: Regular rate/rhythm, Normal S1 S2 Capillary refill: <2 Seconds Gastrointestinal: W/out hepatosplenomegaly, No guarding, Tenderness Musculoskeletal: No clubbing, No swelling Integumentary: No rashes, No breakdown Neurological: Normal speech, Normal strength at 5/5 x4 extr Lymphatics: No axilla or inguinal lymphadenopathy - Studies Laboratory Data (last 24 hrs) 03/24/20 02:20: PT 11.4, INR 0.97 03/24/20 02:20: WBC 8.9, Hgb 11.6 L, Hct 35.9 L, Plt Count 212 03/24/20 02:20: Sodium 138, Potassium 4.2, BUN 16, Creatinine 0.86, Glucose 217 H, Magnesium 2.3, Total Bilirubin 0.3, AST 12 L, ALT 14, Alkaline Phosphatase 86, Amylase 69, Lipase 296 Assessment and Plan - Problems (Diagnosis) (1) Acute on chronic pancreatitis Onset Date: 08/13/16 Current Visit: No Status: Acute (2) Chest pain Onset Date: 11/16/16 Current Visit: No Status: Acute (3) Gastritis Current Visit: No Status: Acute (4) UTI (urinary tract infection) Onset Date: 11/16/16 Current Visit: No Status: Acute (5) HTN (hypertension) Onset Date: 08/31/17 Current Visit: No Status: Chronic Qualifiers: (6) Hyperlipidemia Onset Date: 08/31/17 Current Visit: No Status: Chronic Qualifiers: (7) Intractable nausea and vomiting Onset Date: 10/18/15 Current Visit: No Status: Chronic - Plan Acute on chronic pancreatitis History of hiatal hernia with GERD Chest pain to rule out ACS. UTI Hypertension Hyperlipidemia Anxiety Plan NPO for now Start on fluids Start on PPI Will trend cardiac enzymes Start on IV antibiotics for UTI Monitor under telemetry Antihypertensives titrated start on hydralazine p.r.n. Will get a lipid panel GI consult if not better GI/DVT prophylaxis Advanced directives full code - Advance Directives Does patient have a Living Will: No Does patient have a Durable POA for Healthcare: No Time Spent Managing Pts Care (In Minutes): 45
[2020-03-24 09:00] VITALS: BMI 34.9
--- NOTE | 2020-03-24 09:29 | RAD REPORT ---
EXAM DESCRIPTION: RAD - Chest Single View - 03/24/2020 2:28 am CLINICAL HISTORY: CHEST PAIN COMPARISON: PA chest July 2019 TECHNIQUE: AP portable chest image was obtained 03/24/2020 2:28 am . FINDINGS: Lungs are clear. Heart and vasculature are normal. No measurable pleural effusion and no p neumothorax. No acute bony abnormality seen. No acute aortic findings suspected. IMPRESSION: No acute cardiopulmonary process. No significant change from comparison study.
[2020-03-24] MEDS: ONDANSETRON 4 MG/2 ML VIAL IV PRN (09:44)
[2020-03-24] MEDS: PANTOPRAZOLE 40 MG INJ IVP SCH ×2 (12:13→20:39)
[2020-03-24 23:24] VITALS: O2SAT 95
[2020-03-25] MEDS: carvediloL 6.25 MG TAB PO SCH ×2 (00:36→08:42)
[2020-03-25] MEDS: AMLODIPINE 10 MG TAB PO SCH ×2 (00:37→08:43)
[2020-03-25] MEDS ORDERED: HYDRALAZINE HCL 20 MG/ML VIAL IV PRN (02:25)
[2020-03-25 05:00] LABS: Absolute Lymphocytes (CBC) 1.7 K/uL (0.7-4.9); Basophils % 0.5 % (0-1.3); Hematocrit 34.4 % (36.0-45.0); Lymphocytes % 25.5 % (15.3-44.8); MPV 8.6 fL (7.6-11.3); RBC Red Blood Cell Count 4.27 M/uL (3.86-4.86)
[2020-03-25 05:08] LABS: Albumin 2.9 g/dL (3.4-5.0); Bilirubin Total 0.7 mg/dL (0.2-1.0); Potassium 4.2 mmol/L (3.5-5.1)
--- NOTE | 2020-03-25 06:39 | P.PN ---
Subjective Date of Service: 03/24/20 Subjective: Improving Still having some pain. She is wanting to try clear liquid diet. She did request a PICC line but it is possible she could improve quicker than anticipated and go home with the next 48-72 hours. We will try to hold off on the PICC line. If she is not tolerating her diet and will go ahead and get PICC line placed. Review of Systems 10-point ROS is otherwise unremarkable Physical Examination - Vital Signs Temperature: 97.4 F Blood Pressure: 137/65 Pulse: 61 Respirations: 18 Pulse Ox (%): 95 - Physical Exam General: Alert, In no apparent distress, Oriented x3 Respiratory: Clear to auscultation bilaterally, Normal air movement Cardiovascular: Regular rate/rhythm, Normal S1 S2, No murmurs Gastrointestinal: Normal bowel sounds, Soft and benign, Non-distended, Tenderness Musculoskeletal: No clubbing, No swelling, No tenderness Neurological: Sensation intact, Cranial nerves 3-12 intact Lymphatics: No axilla or inguinal lymphadenopathy - Studies Medications List Reviewed: Yes Assessment & Plan - Problems (Diagnosis) (1) Acute on chronic pancreatitis Onset Date: 08/13/16 Current Visit: No Status: Acute (2) Chronic pain syndrome Onset Date: 08/31/17 Current Visit: No Status: Chronic (3) Depression with anxiety Onset Date: 08/31/17 Current Visit: No Status: Chronic (4) Fatty liver Onset Date: 08/31/17 Current Visit: No Status: Chronic (5) HTN (hypertension) Onset Date: 08/31/17 Current Visit: No Status: Chronic Qualifiers: (6) Hiatal hernia with GERD Onset Date: 08/31/17 Current Visit: No Status: Chronic (7) Hyperlipidemia Onset Date: 08/31/17 Current Visit: No Status: Chronic Qualifiers: (8) Intractable nausea and vomiting Onset Date: 10/18/15 Current Visit: No Status: Chronic (9) Nephrolithiasis Current Visit: No Status: Chronic - Plan Patient with a history of severe pancreatitis. She is admitted to our hospital on numerous occasions for similar episodes. Sometimes her lipase is significantly elevated. However, over the last few admissions her lipase has not shown to have significant elevation. Patient does have a pseudocyst on CT scan as well as inflammation of the peripancreatic region. Continue monitoring her closely over the next 48-72 hours. If she tolerates her diet and her pain is well controlled then anticipate discharge over the next 2-3 days. Discharge Plan: Home Plan to discharge in: Greater than 2 days - Advance Directives Does patient have a Living Will: No Does patient have a Durable POA for Healthcare: No - Code Status/Comfort Care Code Status Assessed: Yes Code Status: Full Code Critical Care: No Time Spent Managing PTS Care (In Minutes): 35
[2020-03-25] MEDS ORDERED: CITALOPRAM 10 MG TABLET PO SCH (09:00)
[2020-03-25] MEDS ORDERED: GABAPENTIN 100 MG CAP PO SCH (09:00)
[2020-03-25] MEDS ORDERED: CEFTRIAXONE/SWI 1gm 1 GM/10 ML SYR IV SCH (09:00)
[2020-03-25] MEDS ORDERED: LIPASE/PROTEASE/AMYLASE CAP PO SCH (09:00)
[2020-03-25] MEDS ORDERED: CEFTRIAXONE 1 GM/NS 50 ML 1 GM/50 ML BAG IV SCH (09:00)
--- NOTE | 2020-03-25 09:43 | P.DS ---
Admission Date: 03/24/20 Discharge Date: 03/25/20 Primary Care Provider: Dr. Powell; GI-Dr. Smith Disposition: ROUTINE DISCHARGE Discharge Condition: GOOD Reason for Admission: Abdominal pain Consultations: none Procedures: CT Ab: Pseudocyst with Inflammation to the jose pancreatic area Medical Problem List: Abdominal pain, nausea vomiting secondary to acute on chronic pancreatitis with pseudocyst Chronic pain Hypertension GERD with hiatal hernia Brief History of Present Illness: 74-year-old female with history of hypertension, hyperlipidemia, chronic pancreatitis, GERD with hiatal hernia and depression with anxiety. Patient presented with abdominal pain and chest pain. Patient found to have acute on chronic pancreatitis. Patient admitted for further evaluation and treatment. Hospital Course: Patient presented with abdominal pain, nausea and vomiting. This was secondary to acute on chronic pancreatitis. CT scan revealed pseudocyst with mild inflammation to the jose pancreatic region. Patient has done well. Her diet was slowly advanced. At discharge patient without significant abdominal pain or nausea. Patient back to baseline. At discharge patient will continue with a soft bland diet. Patient will continue with Creon 1 pill 3 times a day. Recommend follow up with GI-Dr. Smith who she sees as an outpatient. Recommend follow up in 1-2 weeks to follow up this hospitalization and monitor the pseudocyst. Patient with chronic pain. At discharge she may continue with her medication of Neurontin 100 mg 1 pill 3 times a day. Recommend follow up with her PCP to further monitor and adjust. Patient with hypertension. Medications were restarted during her stay. At discharge she will continue with Norvasc 10 mg daily and carvedilol 6.250 pill twice daily. Recommend to monitor her blood pressure daily. Recommend to maintain blood pressure less than 130/80. Further adjustment in her medication can be done by her PCP. Patient with history of GERD with hiatal hernia. At discharge patient will continue with Protonix 40 mg daily. Patient had asymptomatic dysuria. No need for antibiotics at this time. Urine culture showed normal blaine. Vital Signs/Physical Exam: Temp Pulse Resp BP Pulse Ox 97.4 F 70 18 191/87 H 95 03/25/20 08:00 03/25/20 08:43 03/25/20 08:00 03/25/20 08:43 03/25/20 08:00 General: Alert, In no apparent distress, Oriented x3, Cooperative HEENT: Atraumatic Neck: Supple Respiratory: Clear to auscultation bilaterally, Normal air movement Cardiovascular: Normal pulses, Regular rate/rhythm Gastrointestinal: Normal bowel sounds, Soft and benign, Non-distended, No tenderness, No masses, No rebound, No guarding Neurological: Normal speech, Normal strength at 5/5 x4 extr, Normal tone, Normal affect Laboratory Data at Discharge: WBC 6.9 K/uL (4.3-10.9) D 03/25/20 04:08 Hgb 11.4 g/dL (12.0-15.0) L 03/25/20 04:08 Hct 34.4 % (36.0-45.0) L 03/25/20 04:08 Plt Count 199 K/uL (152-406) 03/25/20 04:08 PT 11.4 SECONDS (9.5-12.5) 03/24/20 02:20 INR 0.97 03/24/20 02:20 Sodium 138 mmol/L (136-145) 03/25/20 04:08 Potassium 4.2 mmol/L (3.5-5.1) 03/25/20 04:08 BUN 9 mg/dL (7-18) 03/25/20 04:08 Creatinine 0.77 mg/dL (0.55-1.3) 03/25/20 04:08 Glucose 155 mg/dL (74-106) H 03/25/20 04:08 Magnesium 2.3 mg/dL (1.8-2.4) 03/24/20 02:20 Total Bilirubin 0.7 mg/dL (0.2-1.0) 03/25/20 04:08 AST 13 U/L (15-37) L 03/25/20 04:08 ALT 14 U/L (12-78) 03/25/20 04:08 Alkaline Phosphatase 88 U/L (45-117) 03/25/20 04:08 Troponin I < 0.02 ng/mL (0.0-0.045) 03/24/20 09:49 Amylase 69 U/L (25-115) 03/24/20 02:20 Lipase 296 U/L (73-393) 03/24/20 02:20 Home Medications: Citalopram Hydrobromide [Celexa] 1 tab PO DAILY 03/24/20 Gabapentin [Neurontin*] 1 cap PO TID 03/24/20 Lipase/Protease/Amylase [Raza Kim 36,000 Units Capsule] 1 cap PO TID 03/24/20 Amlodipine [Norvasc*] 10 mg PO DAILY #30 tab 03/25/20 Pantoprazole [Protonix Tab] 40 mg PO DAILY #30 tab 03/25/20 carvediloL [Coreg*] 6.25 mg PO BID #60 tab 03/25/20 New Medications: carvediloL [Coreg*] 6.25 mg PO BID #60 tab Amlodipine [Norvasc*] 10 mg PO DAILY #30 tab Pantoprazole [Protonix Tab] 40 mg PO DAILY #30 tab Patient Discharge Instructions: Recommend follow up with PCP in 1 week to follow up this hospitalization. Patient presented with abdominal pain, nausea and vomiting. This was secondary to acute on chronic pancreatitis. CT scan revealed pseudocyst with mild inflammation to the jose pancreatic region. Patient has done well. Her diet was slowly advanced. At discharge patient without significant abdominal pain or nausea. Patient back to baseline. At discharge patient will continue with a soft bland diet. Patient will continue with Creon 1 pill 3 times a day. Recommend follow up with GI-Dr. Smith who she sees as an outpatient. Recommend follow up in 1-2 weeks to follow up this hospitalization and monitor the pseudocyst. Patient with chronic pain. At discharge she may continue with her medication of Neurontin 100 mg 1 pill 3 times a day. Recommend follow up with her PCP to further monitor and adjust. Patient with hypertension. Medications were restarted during her stay. At discharge she will continue with Norvasc 10 mg daily and carvedilol 6.250 pill twice daily. Recommend to monitor her blood pressure daily. Recommend to maintain blood pressure less than 130/80. Further adjustment in her medication can be done by her PCP. Patient with history of GERD with hiatal hernia. At discharge patient will continue with Protonix 40 mg daily. Patient had asymptomatic dysuria. No need for antibiotics at this time. Urine culture showed normal blaine. Diet: Soft bland Activity: Ad ange Followup: Dmitry Powell, [Primary Care Provider] - Time spent managing pt's care (in minutes): 55
[2020-03-25] MEDS ORDERED: INFLUENZA VACCINE (for 3y+) 0.5 ML DOSE IMVAC ONE (11:00)
[2020-03-25] MEDS: ONDANSETRON 4 MG/2 ML VIAL IV PRN (11:59)
--- NOTE | 2020-03-25 13:02 | RAD REPORT ---
EXAM DESCRIPTION: CT - Abdomen Pelvis W Contrast - 03/24/2020 6:29 am CLINICAL HISTORY: The patient is 74 years old and is Female; CHEST PAIN TECHNIQUE: Axial computed tomographic angiography images of the chest and axial computed tomography images of the abdomen and pelvis with intravenous contrast. Sagittal and coronal reformatted images were created and reviewed. This CT exam was performed using one or more of the following dose redu ction techniques: automated exposure control, adjustment of the mA and/or kV according to patient s ize, and/or use of iterative reconstruction technique. MIP reconstructed images were created and reviewed. COMPARISON: CT of the abdomen and pelvis July 13, 2019 FINDINGS: ARTIFACTS: The exam is suboptimal secondary to motion artifact. CHEST: AORTA: No acute findings. No aortic aneurysm. No dissection. PULMONARY ARTERIES: There are no obvious filling defects identified within the pulmonary arterie s to suggest pulmonary embolism. GREAT VESSELS OF AORTIC ARCH: No acute findings. No dissection. No arterial occlusion or sig nificant stenosis. LUNGS: Unremarkable. No mass. No consolidation. PLEURAL SPACE: Unremarkable. No significant effusion. No pneumothorax. HEART: Unremarkable. No cardiomegaly. No significant pericardial effusion. MEDIASTINUM: A moderate sized hiatal hernia is present. ABDOMEN: LIVER: Unremarkable. No mass. GALLBLADDER AND BILE DUCTS: Small amount of pneumobilia within the left intrahepatic branches is noted in similar to prior exam. The gallbladder surgically absent. No ductal dilation. PANCREAS: A 2.5 cm well-defined cystic structure at the tail the pancreas is present in similar to prior exam. Peripancreatic inflammation and stranding is present. The body and tail the pancreas i s severely atrophic. No ductal dilation. SPLEEN: The spleen is enlarged. ADRENALS: Unremarkable. No mass. KIDNEYS AND URETERS: Multiple left intrarenal calcifications are present. The kidneys enhance sy mmetrically. There is no hydronephrosis or hydroureter of either kidney. No obstructing renal or uret eral calculus is seen. No solid mass. STOMACH AND BOWEL: The stomach is decompressed. The small bowel is normal in caliber. A moderate amount stool is present throughout colon. Scattered colonic diverticula are noted without surroundin g inflammation. There is no mucosal thickening or evidence of bowel obstruction. PELVIS: APPENDIX: No findings to suggest acute appendicitis. BLADDER: Unremarkable. No mass. REPRODUCTIVE: The patient is status post hysterectomy. CHEST, ABDOMEN and PELVIS: INTRAPERITONEAL SPACE: Unremarkable. No significant fluid collection. No free air. BONES/JOINTS: Scoliotic curvature of the spine is present with multilevel degenerative change. No acute fracture. No dislocation. SOFT TISSUES: Unremarkable. LYMPH NODES: Unremarkable. No enlarged lymph nodes. IMPRESSION: 1. No evidence of pulmonary embolism. 2. Findings suggest acute pancreatitis involving the head and uncinate process superimposed on soft tile setter mohini pancreatitis changes. Correlation with laboratory values is recommended. 3. Cystic structure at the tail the pancreas is unchanged from prior exam suggesting a pseudocyst. 4. Colonic diverticulosis. 5. Chronic findings as detailed above. Electronically signed by: Ariana Lazaro MD 03/24/2020 5:05 AM MANAGER LEASING Due to temporary technical issues with the PACS/Fluency reporting system, reports are being signed by the in house radiologist without review as a courtesy to ensure prompt reporting. The interpreting r adiologist is fully responsible for the content of the report.
--- NOTE | 2020-03-25 13:06 | RAD REPORT ---
EXAM DESCRIPTION: CT - Chest For Pe Angio - 03/24/2020 6:28 am CLINICAL HISTORY: The patient is 74 years old and is Female; CHEST PAIN TECHNIQUE: Axial computed tomographic angiography images of the chest and axial computed tomography images of the abdomen and pelvis with intravenous contrast. Sagittal and coronal reformatted images were created and reviewed. This CT exam was performed using one or more of the following dose redu ction techniques: automated exposure control, adjustment of the mA and/or kV according to patient s ize, and/or use of iterative reconstruction technique. MIP reconstructed images were created and reviewed. COMPARISON: CT of the abdomen and pelvis July 13, 2019 FINDINGS: ARTIFACTS: The exam is suboptimal secondary to motion artifact. CHEST: AORTA: No acute findings. No aortic aneurysm. No dissection. PULMONARY ARTERIES: There are no obvious filling defects identified within the pulmonary arterie s to suggest pulmonary embolism. GREAT VESSELS OF AORTIC ARCH: No acute findings. No dissection. No arterial occlusion or sig nificant stenosis. LUNGS: Unremarkable. No mass. No consolidation. PLEURAL SPACE: Unremarkable. No significant effusion. No pneumothorax. HEART: Unremarkable. No cardiomegaly. No significant pericardial effusion. MEDIASTINUM: A moderate sized hiatal hernia is present. ABDOMEN: LIVER: Unremarkable. No mass. GALLBLADDER AND BILE DUCTS: Small amount of pneumobilia within the left intrahepatic branches is noted in similar to prior exam. The gallbladder surgically absent. No ductal dilation. PANCREAS: A 2.5 cm well-defined cystic structure at the tail the pancreas is present in similar to prior exam. Peripancreatic inflammation and stranding is present. The body and tail the pancreas i s severely atrophic. No ductal dilation. SPLEEN: The spleen is enlarged. ADRENALS: Unremarkable. No mass. KIDNEYS AND URETERS: Multiple left intrarenal calcifications are present. The kidneys enhance sy mmetrically. There is no hydronephrosis or hydroureter of either kidney. No obstructing renal or uret eral calculus is seen. No solid mass. STOMACH AND BOWEL: The stomach is decompressed. The small bowel is normal in caliber. A moderate amount stool is present throughout colon. Scattered colonic diverticula are noted without surroundin g inflammation. There is no mucosal thickening or evidence of bowel obstruction. PELVIS: APPENDIX: No findings to suggest acute appendicitis. BLADDER: Unremarkable. No mass. REPRODUCTIVE: The patient is status post hysterectomy. CHEST, ABDOMEN and PELVIS: INTRAPERITONEAL SPACE: Unremarkable. No significant fluid collection. No free air. BONES/JOINTS: Scoliotic curvature of the spine is present with multilevel degenerative change. No acute fracture. No dislocation. SOFT TISSUES: Unremarkable. LYMPH NODES: Unremarkable. No enlarged lymph nodes. IMPRESSION: 1. No evidence of pulmonary embolism. 2. Findings suggest acute pancreatitis involving the head and uncinate process superimposed on emergency services director mohini pancreatitis changes. Correlation with laboratory values is recommended. 3. Cystic structure at the tail the pancreas is unchanged from prior exam suggesting a pseudocyst. 4. Colonic diverticulosis. 5. Chronic findings as detailed above. Electronically signed by: Ariana Lazaro MD 03/24/2020 5:05 AM ASSISTANT FILM EDITOR Due to temporary technical issues with the PACS/Fluency reporting system, reports are being signed by the in house radiologist without review as a courtesy to ensure prompt reporting. The interpreting r adiologist is fully responsible for the content of the report.
[2020-03-25 13:53] VITALS: BP 128/61; TEMP 97.7
== END 2020-03-25 13:45 | disposition home or self-care (01) | DRG 439 ==
LOC: ER 01:44 → ERHOLD 05:51 → 2ND 08:20
PROVIDERS: ADMIT Family Medicine; ATTEND Family Medicine
DX: K85.90 Acute pancreatitis without necrosis or infection, unspecified (principal); K86.3 Pseudocyst of pancreas; N39.0 Urinary tract infection, site not specified; K29.00 Acute gastritis without bleeding; K86.1 Other chronic pancreatitis; K21.9 Gastro-esophageal reflux disease without esophagitis; F41.8 Other specified anxiety disorders; K44.9 Diaphragmatic hernia without obstruction or gangrene; G89.4 Chronic pain syndrome; K76.0 Fatty (change of) liver, not elsewhere classified; N20.0 Calculus of kidney; I10 Essential (primary) hypertension; E78.5 Hyperlipidemia, unspecified; R30.0 Dysuria; Z90.49 Acquired absence of other specified parts of digestive tract; Z90.710 Acquired absence of both cervix and uterus; Z79.899 Other long term (current) drug therapy; Z20.822 Contact with and (suspected) exposure to COVID-19
CPT/HCPCS: 36415; 71045; 71275; 74177; 80048; 80053; 80076; 81003; 81015; 82150; 83690; 83735; 83880; 84484; 85025; 85610; 87077; 87086; 87088; 87186; 93005; 99285; C9113; J0360; J0696; J1170; J2270; J2405; J2765; Q9967; U0003

== ENCOUNTER 2020-06-25 07:22 | Day surgery (SDC) | payer OTHER ==
[2020-06-25] MEDS ORDERED: Ringers Lactate 1,000 ML IV ONE (07:50)
[2020-06-25] MEDS ORDERED: GENTAMICIN 100 MG/100 ML BAG 0 ML IV ONE (07:50)
[2020-06-25] MEDS ORDERED: CEFAZOLIN/SWI 2gm 2 GM/20 ML SYR ONE (07:57)
[2020-06-25] MEDS ORDERED: AMPICILLIN SODIUM 2 GM in NA CHLORIDE 0.9% 100 ML IVPB ONE (08:00)
[2020-06-25] MEDS ORDERED: Gentamicin Inj 180 MG in NA CHLORIDE 0.9% 100 ML IV ONE (08:00)
[2020-06-25] MEDS ORDERED: LIDOCAINE 1% MPF 5 ML VIAL ONE (08:35)
[2020-06-25] MEDS ORDERED: propofoL 200 MG/20 ML VIAL IV ONE (08:35)
[2020-06-25] MEDS ORDERED: FENTANYL CITR 100 MCG/2 ML ONE (08:35)
[2020-06-25] MEDS ORDERED: ONDANSETRON 4 MG/2 ML VIAL ONE (08:36)
[2020-06-25] MEDS ORDERED: NA CIT/CITRIC AC 30 ML ORAL UDC ONE (09:14)
[2020-06-25] MEDS ORDERED: SUCCINYLCHOLINE 20 MG/ML (10 ML) IV ONE (09:14)
[2020-06-25] MEDS ORDERED: FAMOTIDINE 20 MG/2 ML VIAL IV ONE (09:14)
[2020-06-25] MEDS: LABETALOL 20 MG/4ML SYRINGE IV ONE ×4 (10:07→10:29)
[2020-06-25] MEDS ORDERED: HYDROCODONE/APAP 5/325 MG TAB PO PRN (10:32)
[2020-06-25] MEDS ORDERED: PHENAZOPYRIDINE 100MG TAB PO ONE ×2 (10:32→11:34)
--- NOTE | 2020-06-25 10:40 | RAD REPORT ---
EXAM DESCRIPTION: RAD - Urethrocystogrphy Retrograde - 06/25/2020 9:57 am FINDINGS: Fluoroscopic time was 0.10 minutes There were 6 fluoroscopic KUB images obtained during fluoroscopic assisted left ureteral stent placem ent. No suspicious or unexpected finding.
[2020-06-25] MEDS ORDERED: PANTOPRAZOLE 40 MG INJ IVP SCH (11:00)
--- NOTE | 2020-06-25 11:00 | OP ---
Surgeon: RAUL SHAIKH Preoperative Diagnoses: 1.Left 15 mm nephrolithiasis. 2.Recurrent urinary tract infection. Postoperative Diagnoses: 1.Left 15 mm nephrolithiasis. 2.Recurrent urinary tract infection. 3.Bladder lesions. Principle Procedures: 1.Cystoscopy. 2.Left retrograde pyelography. 3.Left ureteral stent placement. 4.Cold cup bladder biopsies and fulguration. Indication For Procedure: Ms. Bettenocurt presented to the Urology Clinic with issues of recurrent urinary tract infections and evidence of cystitis. She underwent imaging evaluation, which revealed the pre sence of a 15 x 8 mm renal calculus, which could potentially have been the source of the infections. She had evidence of cystitis within her bladder. Because of her history of pancreatitis, shockwave lithotripsy, while the stone was visible via plain film, since this was also within her left kidney a nd potentially could affect the pancreas, I recommended against ESWL. Instead, I recommended uretero scopy with laser lithotripsy, and since the stone was of significant enough size to require more prol onged evaluation, I recommended stent placement first to allow dilation of the ureter before attempti ng ureteroscopic management of the stone. Procedure In Detail: The patient was consented in the preoperative holding area before being transfe rred to the operative suite where general anesthesia was induced. She was given ampicillin and genta micin IV antimicrobial prophylaxis. Pneumo boots were provided for DVT prophylaxis. She was placed in the lithotomy position, padded and secured to the table appropriately. The case was begun using a 22-Nigerian rigid cystoscope to traverse the urethra and enter her bladder with ease. The bladder was decompressed of clear urine, and was surveyed. Multiple papillary lesions were noted throughout her bladder with the appearance of chronic cystitis cystica. As a result, I turned my attention to the ureteral orifice, which was orthotopic within the trigone and cannulated the left ureteral orifice wi th a 5-Nigerian ureteral access catheter. I then performed a retrograde pyelogram on the left side. Left retrograde pyelography: Using a 70:30 mixture of Omnipaque and saline, contrast was injected after spot fluoroscopic imagery was obtained. Again, radiopaque within the left upper quadrant was a putative renal calculus that wa s relatively laterally displaced. I then injected the contrast via the 5-Nigerian ureteral access cath eter and it did propagate a nondilated ureter without evidence of filling defect before entering the upper pole, then mid pole and eventually lower pole before abutting the previously seen radiopaque ca lculus. No filling defects were noted within the collecting system proximally or within the collecti ng system other than the stone as previously mentioned. As a result, I passed a Sensor wire up the 5 -Nigerian ureteral access catheter and it coiled fluoroscopically within the upper pole of the kidney. I then passed a 6-Nigerian by 24 cm double-J left ureteral stent over the Sensor wire with a coil obse rved fluoroscopically there. An additional coil was formed cystoscopically within the bladder. I th en turned my attention to the bladder lesions previously seen, and while I had low suspicion that the y represented malignancy, I thought it best to biopsy the lesions in the event there was any sign of malignancy contributory. As a result, 2 medicare sales representative lesions in the posterior wall of the bladder were sampled superficially and sent for pathologic analysis. The base of the lesions was fulgurated, and the bladder was decompressed. With no additional oozing noted with the bladder decompressed, e case was concluded. The scope was removed, the patient taken out of the lithotomy position, awaken ed from general anesthesia, transferred to a stretcher, and then transferred to the recovery room in good condition. Complications: None. Estimated Blood Loss: Less than 5-10 mL. Discharge Disposition: The patient will follow up in the Urology Clinic to discuss the pathology of the bladder biopsies and to reschedule left ureteroscopy and laser lithotripsy, which can be prescheduled at this point to occur within the next 2-3 weeks if possible. This will allow definitiv e management of the stone. LUCHO/MODL Voice ID: [id number] Report ID: [id number]
[2020-06-25] MEDS ORDERED: HYDROCODONE/APAP 5/325 MG TAB ONE (11:34)
[2020-06-25 12:51] VITALS: BP 110/66; TEMP 96; O2SAT 95
== END 2020-06-25 12:30 | disposition home or self-care (01) ==
LOC: OR 07:22
PROVIDERS: ATTEND Urology
PROC: 0T778DZ Dilation of Left Ureter with Intraluminal Device, Via Natural or Artificial Opening Endoscopic (ICD-10-PCS; 2020-06-25)
PROC: 0TBB8ZX Excision of Bladder, Via Natural or Artificial Opening Endoscopic, Diagnostic (ICD-10-PCS; principal; 2020-06-25 08:30)
DX: N20.0 Calculus of kidney (principal); Z87.440 Personal history of urinary (tract) infections; Z20.822 Contact with and (suspected) exposure to COVID-19
CPT/HCPCS: 52204; 52332; 88305; 74450; 51610; U0003; J2704; J0330; J1580; C9113; J3010; J0690; J7120; J2405; J0290

== ENCOUNTER 2020-07-09 12:50 | Day surgery (SDC) | payer OTHER ==
[2020-07-05 12:48] LABS: Urine Appearance TURBID (Clear); Urine Bilirubin NEGATIVE (Negataive); Urine Blood 3+ (Negative); Urine Color YELLOW (Yellow); Urine Glucose 3+ (Negative); Urine Protein 3+ (Negative); Urine Specific Gravity >=1.030 (1.005-1.030); Urine Urobilinogen 0.2 mg/dL (0.2-1.0); Urine pH 5.5 (5.0-7.0)
[2020-07-05 12:50] LABS: Urine Microscopic Reflex ORDER UMIC
[2020-07-05 13:04] LABS: Urine Bacteria >50 /HPF (<20); Urine Yeast PRESENT (NONE SEEN)
[2020-07-05 13:05] LABS: Urine Yeast with Hyphae PRESENT
[~2020-07-09 12:50] MED LIST: AMPICILLIN SODIUM 2 GM in NA CHLORIDE 0.9% 100 ML IVPB SCH; Gentamicin Inj 240 MG in NA CHLORIDE 0.9% 100 ML IV SCH; Ringers Lactate 1,000 ML IV ONE
[2020-07-09] MEDS ORDERED: ONDANSETRON 4 MG/2 ML VIAL ONE ×2 (13:29→15:29)
[2020-07-09] MEDS ORDERED: NA CIT/CITRIC AC 30 ML ORAL UDC ONE (13:41)
[2020-07-09] MEDS ORDERED: CEFTRIAXONE/SWI 1gm 1 GM/10 ML SYR IV SCH (14:00)
[2020-07-09] MEDS ORDERED: FENTANYL CITR 100 MCG/2 ML ONE ×2 (14:32→15:41)
[2020-07-09] MEDS ORDERED: propofoL 200 MG/20 ML VIAL IV ONE (14:32)
[2020-07-09] MEDS ORDERED: PANTOPRAZOLE 40 MG INJ IVP SCH (15:00)
[2020-07-09] MEDS ORDERED: FLUCONAZOLE 400 MG IVPB 400 MG/200 ML BAG IV ONE (15:15)
[2020-07-09] MEDS ORDERED: dexAMETHasone 10 MG/ML VIAL ONE (15:29)
[2020-07-09] MEDS ORDERED: EPHEDRINE SULF 50 MG/ML VIAL ONE (15:29)
[2020-07-09] MEDS ORDERED: NA CHLORIDE 0.9% 2,000 ML ONE (15:31)
[2020-07-09] MEDS ORDERED: KETOROLAC 30 MG/ML INJ ONE (15:35)
[2020-07-09] MEDS ORDERED: HYDROCODONE/APAP 5/325 MG TAB PO PRN (16:31)
[2020-07-09] MEDS ORDERED: PHENAZOPYRIDINE 100MG TAB PO ONE ×2 (16:31→18:17)
[2020-07-09] MEDS ORDERED: MORPHINE 4 MG/ML SYR ONE (17:16)
[2020-07-09 17:50] VITALS: TEMP 97; O2SAT 99
[2020-07-09] MEDS ORDERED: PROMETHAZINE INJ 25 MG/ML AMP ONE (17:54)
[2020-07-09] MEDS ORDERED: HYDROCODONE/APAP 5/325 MG TAB ONE (18:16)
[2020-07-09 18:27] VITALS: BP 150/72
--- NOTE | 2020-07-10 02:12 | OP ---
Surgeon: RAUL SHAIKH Preoperative Diagnosis: Left nephrolithiasis, 15 mm calculus. Postoperative Diagnosis: Left nephrolithiasis, 15 mm calculus, located within the lower pole posterior calyx. Principle Procedures: 1.Cystoscopy. 2.Left ureteroscopy with laser lithotripsy. 3.Left ureteral stent exchange. Indication For Procedure: Ms. Bettencourt presented to the Urology Clinic with issues of recurrent urinary tract infections and associated evidence of cystitis. She was evaluated revealing the presence of a 15 mm calculus in the lower pole of her kidney, and given her history of pancreatitis, recurrent, I recommended against shockwave lithotripsy to avoid the potential for aggravating her underlying pancr eatitis and creating another acute event. As such, she presented for a cystoscopy and left ureteral stent placement previously and followed up today for definitive management via ureteroscopy and laser lithotripsy. Procedure In Detail: The patient was consented in the preoperative holding area before being transfe rred to the operative suite where general anesthesia was induced. She was given ampicillin and genta micin IV antimicrobial prophylaxis. Initially given a preoperative urine culture that revealed less than 10,000 colonies of mixed blaine only. However, after placing her in the lithotomy position, padd ing and securing her to the table appropriately, and prepping her genitalia using Hibiclens, I insert ed a 22-Maori rigid cystoscope and observed cloudy urine. This cleared quickly, and I was able to s urvey her bladder before noting fibrinous debris around her left ureteral stent. As a result, I requ ested an additional 1 g of ceftriaxone as well as 400 mg of fluconazole IV additional prophylaxis, an d I grasped the stent using an alligator grasper and delivered it to the meatus. I then passed a Sen sor wire via the stent into the putative upper pole of the kidney, and over the Sensor wire, I placed a dual-lumen catheter into the proximal ureter and renal pelvis. I then collected several cc of uri ne from the renal pelvis by direct aspiration and sent this for culture. I additionally allowed the renal pelvis to decompress significantly before performing a retrograde pyelogram. Left retrograde pyelography: Visible on the automatic oven operator fluoroscopic image was the calculus within the putative lower pole of the kidney . Contrast was then injected via the second lumen of the dual-lumen catheter and did delineate each of the calices, which were sharp and without significant evidence of caliectasis. There was also no significant pelviectasis, and the calices filled right to the point of the calculus in the lower pole . I thus placed a Bentson guidewire into the collecting system, and by this point, the additional ce ftriaxone was given and the fluconazole was running in. As a result, I then removed the dual-lumen c atheter and placed a ureteral access sheath into the proximal ureter. Because her recurrent infectio ns were likely due to the presence of the calculus or at least I suspected this to be the case, I tho ught it of benefit to proceed to try to rid her of the stone burden and eliminate the recurrent infec tions. As a result, I passed via the ureteral access sheath a flexible ureteroscope into the upper p ole calyx and then surveyed the upper, the upper mid pole, the mid pole and the mid pole posterior ca lices where no stones were noted. I then surveyed into the lower pole calices where within the lower pole posterior calyx, the stone was noted to emanate from deep within the calyx and up through and i nfundibulum. I then employed a 270 nm laser fiber and power settings of 1.0 joules and 15 Hz to quic dilshad began to fragment the portion of the calculus sticking up through the infundibulum. I was able t o whittle this away and the neck of the calculus within the infundibulum before entering into the oralia yx where the majority of the stone proper sat. I was able to then fragment about half of the stone w ithin the calyx before the most posterior lateral portion of the stone burden was simply not accessib le by the contortions made with the ureteroscope and maximum flex with the laser fiber unfortunately coming out of the left upper portion of the screen at around 10 or 11 p.m. As a result, despite mult iple attempts and over 1 hour of attempted laser lithotripsy, it was difficult to achieve complete fr agmentation of the stone. I even employed a 2.3 cm Nitinol basket to attempt to dislodge the stone f rom its position within the lower pole posterior calyx or to be able to grasp it and deliver it to a more favorable location for laser lithotripsy, but this was aborted and not achievable. Further atte mpts at laser lithotripsy only achieved minimal additional results. In the end, a significant compon ent of the stone burden remained; so, I surveyed the renal pelvis down through the proximal, mid and distal ureter removing the ureteral access sheath on the way out and observed no evidence of any uret eral injury. I then backloaded the dual-lumen catheter over the safety wire and again performed a re trograde pyelogram to assure ureteral integrity. Thus, a 70:30 mixture of Omnipaque and saline was i njected via the second lumen of the dual-lumen catheter and did delineate the ureter and renal pelvis and calices without any evidence of extravasation of contrast. As a result, I removed the dual-lume n catheter and backloaded the rigid cystoscope over the indwelling safety wire. I then passed a 6-Fr ench by 24 cm double-J ureteral stent into the left upper pole with a coil observed fluoroscopically there. An additional coil was formed within the bladder. The bladder was also surveyed, and the amanda dence of prior biopsy sites was there as well as evidence of ongoing persistent cystitis. As such, I decompressed her bladder of fluid and urine, and then took her out of the lithotomy position. She w as then awakened from general anesthesia, transferred to a stretcher, and then transferred to the rec overy room in good condition. Complications: None apparent. Discharge Disposition: She will be discharged with a 10-day prescription for Augmentin relative to h er prior culture results with antimicrobial sensitive to that. She also will be given a prescription for Tylenol No. 4 for pain. The prior culture was Enterococcus faecalis sensitive to ampicillin. O n followup, we will discuss having to proceed with shockwave lithotripsy as the next best option for trying to rid her of this uniquely positioned calculus within the lower pole posterior calyx, which i s extremely difficult to access ureteroscopically. I think this will be a less morbid procedure for her than a percutaneous nephrostolithotomy, especially since the stone is likely less than 1 cm in di ameter at this time. While the risk of exacerbation of pancreatitis is present, since the stone is i n the lower pole, I think the shock wave will be far enough away from the tip of the pancreas than if the stone were in the upper pole or 1 of the upper pole oralia ices. LUCHO/MODL Voice ID: [id number] Report ID: [id number]
== END 2020-07-09 18:40 | disposition home or self-care (01) ==
LOC: OR 12:50
PROVIDERS: ATTEND Urology
PROC: 0TF78ZZ Fragmentation in Left Ureter, Via Natural or Artificial Opening Endoscopic (ICD-10-PCS; 2020-07-09)
PROC: 0T778DZ Dilation of Left Ureter with Intraluminal Device, Via Natural or Artificial Opening Endoscopic (ICD-10-PCS; principal; 2020-07-09 13:45)
DX: N20.0 Calculus of kidney (principal); Z20.822 Contact with and (suspected) exposure to COVID-19
CPT/HCPCS: 87088; 87070; 87086; 82947; 74450; 51610; 52356; U0003; J2704; J2550; J1580; C9113; J3010 ×2; J1100; J1450; J7120; J7030; J2405 ×2; J0290; 81003; 81015; 87077; 87186

== ENCOUNTER 2020-07-10 17:43 | Inpatient (IN) | payer OTHER ==
--- OUTSIDE RECORDS SUMMARY | 2020-07-10 17:46 | XMS REPORT | Continuity of Care Document ---
:1945 Author Organization [facility] t Address [address] [place] [address] Care Team Providers Name Role Phone Angelo Powell DO Primary Care Physician [facility] Attending Clinician Unavailable [facility] Admitting Clinician Unavailable Problems Condition Condition Condition Status Onset Resolution Last Treating Co mments Source Name Details Category Date Date Treatment Clinician Date Acute Acute Disease Active [facility] pancreatit pancreatit 11-09 [facility] - is is 00:00: Medical 00 [place] Essential Essential Disease Active [facility] hypert[facility]i hypertensi 11-09 Mansi kes - on on 00:00: Medical 00 [place] 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 11-09 ishmael s - 00:00: Medical [address] [place] [address] Allergies, Adverse Reactions, Alerts This patient has no known allergies or adverse reactions. Social History Social Habit Start Date Stop Date Quantity Comments Source History [facility] Std Drinks Medica l Center History [facility] Binge Medical Carl ter Sex Assigned At [facility] Alcohol intake 2018-11-09 2018-11-09 Current [facility]k es - 00:00:00 00:00:00 non-drinker of Medical Ce nter alcohol (finding) History [facility] 2018-11-09 2018-11-09 1 [facility] - Alcohol Frequency 00:00:00 00:00:00 Medical Center Tobacco use and 2018-11-09 2018-11-[address] [facility] Mansi kes - exposure 00:00:00 00:00:00 [facility] Smoking Status Start Date Stop Date Source Former smoker 2018-11-09 00:00:00 2018-11-09 00:00:[address] [facility] Medications Ordered Filled Start Stop Current Ordering Indication Dosage Frequency Signature Comments Components Source Medication Medication Date Date Medication? Clinician (SIG) Name Name pantoprazol Yes 40mg Q.5D Take [address] e 9-06 by mouth 2 [facility] - (PROTONIX) 17:24: (two) Medica l 40 MG 08 times Center tablet daily . lipase-prot Yes 02556D{ Take [facility] ease-amylas 9-06 lipase} 36,000 [place] es - e (CREON) 17:24: units of Medi oralia 36,000-114, [address] 000- mouth 3 180,000 (three) unit CpDR times capsule daily with meals. metoprolol Yes 50mg QD Take [address] (LOPRESSOR) 9-06 by mouth Luke s - 50 MG 17:24: daily. Medical tablet 08 Center gabapentin Yes 100mg Q.5D Take 100 [facility] [...] 4 (four) hours as needed. Clotrimazol Clotrimazol Dmitry [address] [facility] e -07 Powell applicatio Britta - 00:00 n to [facility]oria :00 affected l area Outpati ent Clinics Procedures This patient has no known procedures. Plan of Care Planned Activity Planned Date Details Comments Source Future Scheduled 2020-03-[address] [facility] - Test 00:00:00 (12+) [code = Medical Center DEPRESSION SCREENING (12+)] Future Scheduled 2019-11-07 INFLUENZA VACCINE (#1) C [...] 00:00:00 (1 of 1 - Medical Center [id number] PCV13) [code = PNEUMOCOCCAL 65+ YRS (1 of 1 - [id number] PCV13)] Future Scheduled 1997-12-28 SHINGLES VACCINES ([address] [facility] - Test 00:00:00 of 2) [code = SHINGLES Medic al Center VACCINES (1 of 2)] Future Scheduled 1966-12-28 DTAP/TDAP/TD VACCINES [facility] - Test 00:00:00 (1 - Tdap) [code = Medical C enter DTAP/TDAP/TD VACCINES (1 - Tdap)] Future Scheduled 1965-12-28 HEPATITIS C [facility]CREENING [facility] Test 00:00:00 [code = HEPATITIS C Medical Center SCREENING] Future Scheduled [address] [facility] - Test 00:00:00 [facility] [code = 205869059] Future Scheduled [address] [facility] - Test 00:00:00 [facility] [code = 199372386] Encounters Start End Encounter Admission Attending Care Care Encounter Source Date/Time Date/Time Type Type Clinicians Facility Department ID 2020-07-05 2020-07-05 Outpatient [facility] [id number] [facility] 2020-06-27 2020-06-27 Outpatient [facility] [id number] [facility] 2020-06-24 2020-06-24 Out[facility] [id number] [facility] 2020-06-19 2020-06-19 Out[facility] [id number] [facility] 2020-05-20 2020-05-20 Out[facility] [id number] [facility] 2020-05-14 2020-05-14 Outpatient [facility] [id number] [facility] 2020-04-19 2020-04-19 Out[facility] [id number] [facility] 2020-04-16 2020-04-16 Out[facility] [id number] [facility] 2019-09-29 2019-09-29 [facility] [id number] 13:46:00 13:46:00 t [facility] Medicine l Medicine Outpati ent Clinics 2019-09-28 2019-09-28 [facility] [id number] 11:00:00 11:00:00 t [employer] [facility] Medicine l Medicine Outpati ent Clinics 2019-09-28 2019-09-28 [facility] [id number] 10:30:00 10:30:00 t [employer] - Drive [facility] Medicine l Medicine Outpati ent Clinics 2019-07-14 2019-07-14 [facility] [id number] 10:31:00 10:31:00 t [employer] [facility] Medicine l Medicine Outpati ent Clinics 2018-12-15 2018-12-15 [facility] [id number] 16:00:00 16:00:[address] [place] [address] Luke [place] - Drive [facility] Medicine l Medicine Outpati ent Clinics 2018-09-14 2018-09-14 [facility] [id number] 15:45:00 15:45:[address] [place] [address] Luke s - Drive [facility] Medicine l Medicine Outpati ent Clinics 2018-08-30 2018-08-30 [facility] [id number] 08:00:00 08:00:[address] [place] [address] Luke s - Drive [facility] Medicine l Medicine Outpati ent Clinics 2018-06-10 2018-06-10 [facility] [id number] 16:46:00 16:46:[address] [place] [address] Luke s - Drive [facility] Medicine l Medicine Outpati ent Clinics 2018-06-09 2018-06-09 [facility] [id number] 09:18:00 09:18:00 t [facility] [employer] s - Road [facility] Medicine l Medicine Outpati ent Clinics 2018-06-07 2018-06-07 [facility] [id number] 15:00:00 15:00:[address] [place] [address] Luke s - Drive [facility] Medicine l Medicine Outpati ent Clinics 2018-04-25 2018-04-25 [facility] [id number] 09:15:00 09:15:00 [place] [employer] Luke s - Drive [facility] Medicine l Medicine Outpati ent Clinics 2018-03-09 2018-03-09 [facility] [id number] 16:00:00 16:00:[address] [place] [address] Luke s - Drive [facility] Medicine l Medicine Outpati ent Clinics 2018-03-03 2018-03-03 [facility] [id number] 08:52:00 08:52:[address] [place] [address] Luke s - Drive [facility] Medicine l Medicine Outpati ent Clinics 2017-11-30 2017-11-30 [facility] [id number] 15:00:00 15:00:[address] [place] [address] Luke s - Drive [facility] Medicine l Medicine Outpati ent Clinics 2017-09-30 2017-09-30 [facility] [id number] 15:00:00 15:00:00 t Specialty/U Mansi kes - Specialty rology [facility] 2017-09-29 2017-09-29 Outpatient Jaswinder Parham [id number] 10:13:00 10:13:00 [facility] 2017-09-28 2017-09-28 Outpatient Jaswinder Parham [id number] 14:00:00 14:00:00 [facility] Results Test Description Test Time Test Comments Results Result Comments Source PHOSPHORUS 2018-11-11 05:54:00 Test Item Value Reference Range Interpretation Comme nts PHOSPHORUS (BEAKER) (test code = 604) 3.6 mg/dL 2.3-4.7 [id number] 05:54:00 Test Item Value Reference Range Interpretation Comments MAGNESIUM (BEAKER) (test code = 1.8 mg/dL 1.6-2.6 627) BASIC METABOLIC [id number] 05:54:00 Test Item Value Reference Range Interpretation [...] APPLICABLE FOR DIALYSIS PATIEN TS. HEPATIC FUNCTION [id number] 05:54:00 Test Item Value Reference Range Interpretation [...] 6-55 347) CBC W/PLT COUNT & AUTO [id number] 05:43:00 Test Item Value Reference Range Interpretation [...] PERCENT (BEAKER) (test code = 2801) PROTHROMBIN [id number] 05:42:00 Test Item Value Reference Range Interpretation [...] is2.5-3.5 for patients wiht mechanical heart valves.HEMOGLOBIN [id number] 07:50:00 Test Item Value Reference Range Interpretation Comments HEMOGLOBIN A1C (BEAKER) (test code = 7.1 % 4.3-6.1 H 368) [id number] 04:53:00 Test Item Value Reference Range Interpretation Comments PHOSPHORUS (BEAKER) (test code = 3.2 mg/dL 2.3-4.7 604) [id number] 04:53:00 Test Item Value Reference Range Interpretation Comments MAGNESIUM (BEAKER) (test code = 1.8 mg/dL 1.6-2.6 627) BASIC METABOLIC [id number] 04:53:00 Test Item Value Reference Range Interpretation Comments SODIUM (BEAKER) 139 meq/L 136-145 (test code = 381) POTASSIUM (BEAKER) 3.8 meq/L 3.5-5.1 (test code = 379) CHLORIDE (BEAKER) 106 meq/L 98-107 (test code = 382) CO2 (BEAKER) (test 27 meq/L 22-29 code = 355) BLOOD UREA NITROGEN 15 [...] APPLICABLE FOR DIALYSIS PATIEN TS. HEPATIC FUNCTION [id number] 04:53:00 Test Item Value Reference Range Interpretation [...] code = 12 U/L 6-55 347) PROTHROMBIN [id number] 04:19:00 Test Item Value Reference Range Interpretation [...] mechanical heart valves.CBC W/PLT COUNT & AUTO [id number] 04:14:00 Test Item Value Reference Range Interpretation [...] 0-1 PERCENT (BEAKER) (test code = 2801) [id number] 14:44:00 Test Item Value Reference Range Interpretation Comments LIPASE (BEAKER) (test code = 749) 972 U/L 8-78 H [id number] 13:06:00 Test Item Value Reference Range Interpretation Comments PHOSPHORUS (BEAKER) (test code = 3.3 mg/dL 2.3-4.7 604) [id number] 13:06:00 Test Item Value Reference Range Interpretation Comments MAGNESIUM (BEAKER) (test code = 2.0 mg/dL 1.6-2.6 627) BASIC METABOLIC [id number] 13:06:00 Test Item Value Reference Range Interpretation [...] NOT APPLICABLE FOR DIALYSIS PATIEN TS. LIPID [id number] 13:06:00 Test Item Value Reference Range Interpretation [...] 130-159 High 160-189 Very High >=190HEPATIC FUNCTION [id number] 13:06:00 Test Item Value Reference Range Interpretation [...] 6-55 347) CBC W/PLT COUNT & AUTO [id number] 12:46:00 Test Item Value Reference Range Interpretation [...] PERCENT (BEAKER) (test code = 2801) PROTHROMBIN [id number] 12:39:00 Test Item Value Reference Range Interpretation [...]
[2020-07-10 22:33] LABS: Urine Blood 3+ (Negative); Urine Glucose 3+ (Negative); Urine Protein 3+ (Negative)
[2020-07-10] MEDS ORDERED: ONDANSETRON 4 MG/2 ML VIAL ONE (22:33)
[2020-07-10] MEDS ORDERED: NA CHLORIDE 0.9% 1,000 ML ONE (22:33)
[2020-07-10] MEDS ORDERED: MORPHINE 4 MG/ML SYR ONE (22:33)
[2020-07-10] MEDS ORDERED: CEFTRIAXONE/SWI 1gm 0 GM/0 ML SYR ONE (23:03)
--- NOTE | 2020-07-10 23:20 | ER ---
Nurse's Notes [facility] Name: Isadora Bettencourt Age: 74 yrs Sex: Female : 1945 Arrival Date: 07/10/2020 Time: 17:44 Bed 15 Private MD: Diagnosis: Cystitis, unspecified without hematuria-with pyelonephritis;Other chest pain Presentation: 07/10 17:53 Chief complaint: Patient states: Chest pain started yesterday, progressively gotten ca1 worse since. Had a kidney procedure done yesterday, had lithotripsy and stents placed yesterday. I think I had the chest pain before the procedure, then it just gotten worse today. Coronavirus screen: Client denies travel out of the [place] in the last 14 days. At this time, the client does not indicate any symptoms associated with coronavirus-19. Ebola Screen: Patient negative for fever greater than or equal to 101.5 degrees Fahrenheit, and additional compatible Ebola Virus Disease symptoms Patient denies exposure to infectious person. Patient denies travel to an Ebola-affected area in the 21 days before illness onset. No symptoms or risks identified at this time. Initial Sepsis Screen: Does the patient meet any 2 criteria? No. Patient's initial sepsis screen is negative. Does the patient have a suspected source of infection? No. Patient's initial sepsis screen is negative. Risk Assessment: Do you want to hurt yourself or someone else? Patient reports no desire to harm self or others. Onset of symptoms was July 10, 2020. 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 - Social history:: Smoking status: Patient/guardian denies using tobacco, the patient reports quitting approximately 20 years ago, Patient/guardian denies using alcohol, street drugs, The patient lives with family. - Family history:: not pertinent. Screenin:09 Abuse screen: Denies threats or abuse. Denies injuries from another. Nutritional ad5 screening: No deficits noted. Tuberculosis screening: No symptoms or risk factors identified. Fall Risk None identified. No fall in past 12 months (0 pts). Secondary diagnosis (15 points) IV access (20 points). Ambulatory Aid- Crutches/Cane/Walker (15 pts). Gait- Normal/Bed Rest/Wheelchair (0 pts) Mental Status- Oriented to own ability (0 pts). Total Mitchell Fall Scale indicates No Risk (0-24 pts). Assessment: 22:04 General: Appears in no apparent distress. Behavior is calm, cooperative, appropriate ad5 for age. General:. Pain: Complains of pain in left low back and left mid back Pain radiates to suprapubic area Pain currently is 10 out of 10 on a pain scale. Quality of pain is described as shooting, stabbing, Pain began gradually, 1 day ago. Is continuous. Neuro: Level of Consciousness is awake, alert, obeys commands, Oriented to person, place, time, situation, Appropriate for age [employer] Consultant are equal bilaterally Moves all extremities. Gait is steady, Speech is normal, Facial symmetry appears normal. Cardiovascular: Reports chest pain, Denies diaphoresis, lightheadedness, shortness of breath, Heart tones S1 Capillary refill < 3 seconds Clubbing of nail beds is absent JVD is absent Patient's skin is warm and dry. Pulses are all present. Rhythm is regular Chest pain is described as mild, Pain is 5 out of 10 on a pain scale. quality is pressure, is located in anterior chest wall began 1 day ago episodes are intermittent. Respiratory: No deficits noted. Airway is patent Trachea midline Respiratory effort is even, unlabored, Respiratory pattern is regular, symmetrical, Breath sounds are clear bilaterally. GI: Abdomen is distended, Bowel sounds present X 4 quads. Abd is soft and non tender X 4 quads. Reports lower abdominal pain, Patient currently denies pain. : Reports cramping, pain in left in suprapubic area flank(s). Derm: No deficits noted. Musculoskeletal: No deficits noted. 23:00 Reassessment: Patient and/or family updated on plan of care and expected duration. Pain ad5 level reassessed. Patient is alert, oriented x 3, equal unlabored respirations, skin warm/dry/pink. Patient states feeling better. 07/11 00:00 Reassessment: Patient appears in no apparent distress at this time. Patient is alert, ad5 oriented x 3, equal unlabored respirations, skin warm/dry/pink. Patient states symptoms have improved. Vital Signs: 07/10 17:53 BP 141 / 106; Pulse 81; Resp 18 S; Temp 97.1; Pulse Ox 96% on R/A; Weight 82.1 kg (R); ca1 Height 5 ft. 1 in. (154.94 cm); 22:16 BP 173 / 86; Pulse 71; Resp 18; Pulse Ox 97% on R/A; ad5 23:00 BP 151 / 70; Pulse 67; Resp 18; Pulse Ox 94% ; Pain 7/10; ad5 07/11 00:00 BP 156 / 107; Pulse 67; Resp 18; Pulse Ox 95% on R/A; ad5 07/10 17:53 Body Mass Index 34.20 (82.10 kg, 154.94 cm) ca1 ED Course: 07/10 17:44 Patient arrived in ED. as 17:59 Triage completed. ca1 18:02 Arm band placed on right wrist. ca1 21:08 Mari Greer, SHARMAINE is Primary Nurse. bb 21:08 Anatoliy Cassidy MD is Attending Physician. ma2 21:40 XRAY Chest (1 view) In Process Unspecified. EDMS 22:09 Patient has correct armband on for positive identification. Placed in gown. Bed in low ad5 position. Call light in reach. Side rails up X2. air sampling and monitoring on. Pulse ox on. NIBP on. Noise minimized. Warm blanket given. Head of bed. 22:10 No provider procedures requiring assistance completed. Inserted saline lock: 22 gauge ad5 in left forearm, using aseptic technique. Patient maintains SpO2 saturation greater than 95% on room air. 22:12 CT Abd/Pelvis - Without Contrast Sent. ad5 22:17 CT Abd/Pelvis - Without Contrast In Process Unspecified. EDMS 22:46 Urine Culture Sent. ad5 23:19 Willy Santacruz DO is Hospitalizing Provider. ma2 07/11 00:16 Blood Culture Adult (2) Sent. ad5 00:16 Urine Culture Sent. ad5 01:00 Patient admitted, IV remains in place. ad5 Administered Medications: 07/10 22:30 Drug: NS 0.9% 1000 ml Route: IV; Rate: 1 bolus; Site: left forearm; ad5 22:30 Drug: morphine 4 mg Route: IVP; Site: left forearm; ad5 23:49 Follow up: Response: No adverse reaction; RASS: Alert and Calm (0) ad5 22:30 Drug: Zofran (Ondansetron) 4 mg Route: IVP; Site: left forearm; ad5 23:49 Follow up: Response: No adverse reaction ad5 22:52 CANCELLED (Patient Refused): Rocephin (cefTRIAXone) 1 grams IV at calculated rate once; ma2 Given slow IV push per pharmacy instructions 07/11 00:15 Drug: Zosyn (piperacillin-tazobactam) 3.375 grams Route: IVPB; Infused Over: 60 mins; ad5 Site: left forearm; 00:50 Drug: Fluconazole 200 mg {Note: order changed to po per MD CASSIE Ugalde} Volume: 100 ml; ad5 Route: IVPB; Infused Over: 60 mins; Site: Other; Outcome: 07/10 23:19 Decision to Hospitalize by Provider. maBonnie 07/11 01:00 Admitted to ER Hold. Please see [facility] for further documentation. ad5 Condition: stable Instructed on the need for admit, Demonstrated understanding of 04:04 Admitted to Med/surg accompanied by nurse, via stretcher, with chart, Report called to tre Hernandez RN 04:28 Patient left the ED. ad5 Signatures: Dispatcher [employer] Ann Marie Yang Brenda, RN RN bb Alzahri, Mohammad, MD MD ma2 Acob, Cheryl, RN RN ca1 Davidson, Andrea ad5
--- NOTE | 2020-07-10 23:20 | EDPHYS ---
Physician Documentation [facility] Name: Isadora Bettencourt Age: 74 yrs Sex: Female : 1945 Arrival Date: 07/10/2020 Time: 17:44 Bed 15 Private MD: ED Physician Anatoliy Cassidy HPI: 07/10 21:55 This 74 yrs old Female presents to ER via Wheelchair with complaints of Chest ma2 Pain. 21:55 The patient or guardian reports chest pain that is located primarily in the substernal ma2 area. Onset: gradually, 1 day(s) ago. Associated signs and symptoms: Pertinent positives: has left flank pain as well, Pertinent negatives: cough, headache, lower extremity swelling, lightheadedness, vomiting. Severity of pain: At its worst the pain was mild in the emergency department the pain is unchanged. The patient has not experienced similar symptoms in the past. here with chest pain, she also states she had left uretric stent placed yesterday for chronic kidney stone, was having hematuria yesterday and that has resolved... . 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 - Social history:: Smoking status: Patient/guardian denies using tobacco, the patient reports quitting approximately 20 years ago, Patient/guardian denies using alcohol, street drugs, The patient lives with family. - Family history:: not pertinent. ROS: 21:55 Constitutional: Negative for fever, chills, and weight loss. ma2 21:55 All other systems are negative. Exam: 21:55 Constitutional: This is a well developed, well nourished patient who is awake, alert, ma2 and in no acute distress. Chest/axilla: Normal chest wall appearance and motion. Nontender with no deformity. No lesions are appreciated. Cardiovascular: Regular rate and rhythm with a normal S1 and S2. No gallops, murmurs, or rubs. Normal PMI, no JVD. No pulse deficits. Respiratory: Lungs have equal breath sounds bilaterally, clear to auscultation and percussion. No rales, rhonchi or wheezes noted. No increased work of breathing, no retractions or nasal flaring. Abdomen/GI: Soft, non-tender, with normal bowel sounds. No distension or tympany. No guarding or rebound. No evidence of tenderness throughout. Skin: Warm, dry with normal turgor. Normal color with no rashes, no lesions, and no evidence of cellulitis. MS/ Extremity: Pulses equal, no cyanosis. Neurovascular intact. Full, normal range of motion. Neuro: Awake and alert, GCS 15, oriented to person, place, time, and situation. Cranial nerves II-XII grossly intact. Motor strength 5/5 in all extremities. Sensory grossly intact. Cerebellar exam normal. Normal gait. Vital Signs: 17:53 BP 141 / 106; Pulse 81; Resp 18 S; Temp 97.1; Pulse Ox 96% on R/A; Weight 82.1 kg (R); ca1 Height 5 ft. 1 in. (154.94 cm); 22:16 BP 173 / 86; Pulse 71; Resp 18; Pulse Ox 97% on R/A; ad5 23:00 BP 151 / 70; Pulse 67; Resp 18; Pulse Ox 94% ; Pain 7/10; ad5 07/11 00:00 BP 156 / 107; Pulse 67; Resp 18; Pulse Ox 95% on R/A; ad5 07/10 17:53 Body Mass Index 34.20 (82.10 kg, 154.94 cm) ca1 MDM: 07/10 21:08 Patient medically screened. ma2 21:55 Differential diagnosis: abnormal EKG, chest wall pain, myocarditis, stable angina. Data rebecca reviewed: vital signs, nurses notes. Counseling: I had a detailed discussion with the patient and/or guardian regarding: the historical points, exam findings, and any diagnostic results supporting the discharge/admit diagnosis, the presence of at least one elevated blood pressure reading (>120/80) during this emergency department visit, the need for outpatient follow up. 23:17 ED course: has pyelonephritis on ct, and ua consistent with uti, discussed with dr. rebecca simmons he advised that urine culture taken form kidney grew gungal and both gram + and negative audra. 05/05 21:09 Order name: Basic Metabolic Panel [facility] [place] 07/10 21:09 Order name: CBC with Diff [facility] [place] 07/10 21:09 Order name: LFT's [facility] [place] 07/10 21:09 Order name: Magnesium [facility] [place] 07/10 21:09 Order name: NT PRO-BNP; Complete Time: 02:40 nd2 07/10 21:09 Order name: PT-INR; Complete Time: 02:40 [facility] [place] 07/10 21:09 Order name: Troponin (emerg Dept Use Only); Complete Time: 01:16 nd2 07/10 21:09 Order name: Basic Metabolic Panel; Complete Time: 02:40 EDMS 07/10 21:09 Order name: CBC with Automated Diff; Complete Time: 02:40 EDMS 07/10 21:09 Order name: Liver (Hepatic) Function; Complete Time: 02:40 EDMS 07/10 21:10 Order name: Magnesium; Complete Time: 02:40 EDMS 07/10 22:34 Order name: Urine Dipstick-Ancillary; Complete Time: 22:40 EDMS 07/10 22:41 Order name: Blood Culture Adult (2) [facility] [place] 07/10 22:41 Order name: Urine Culture [facility] [place] 07/10 21:09 Order name: XRAY Chest (1 view) [facility] [place] 07/10 21:09 Order name: EKG; Complete Time: 21:10 [facility] [place] 07/10 21:09 Order name: Cardiac monitoring; Complete Time: 22:11 [facility] [place] 07/10 21:09 Order name: EKG - Nurse/Tech; Complete Time: 22:11 [facility] [place] 07/10 21:09 Order name: IV Saline Lock; Complete Time: 22:11 [facility] [place] 07/10 21:09 Order name: Labs collected and sent; Complete Time: 00:34 [facility] [place] 07/10 21:45 Order name: CT Abd/Pelvis - Without Contrast [facility] [place] 07/10 23:46 Order name: COVID-19 : Document "Date of Symptom Onset" if Symptomatic. tt3 07/10 23:50 Order name: Manual Differential; Complete Time: 02:40 EDMS 07/11 01:12 Order name: CONS Physician Consult EDMS 07/10 21:09 Order name: O2 Per Protocol; Complete Time: 22:11 [facility] [place] 07/10 21:09 Order name: O2 Sat Monitoring; Complete Time: 22:12 ma2 07/10 21:45 Order name: Urine Dipstick-Ancillary (obtain specimen); Complete Time: 22:46 ma2 Administered Medications: 22:30 Drug: NS 0.9% 1000 ml Route: IV; Rate: 1 bolus; Site: left forearm; ad5 22:30 Drug: morphine 4 mg Route: IVP; Site: left forearm; ad5 23:49 Follow up: Response: No adverse reaction; RASS: Alert and Calm (0) ad5 22:30 Drug: Zofran (Ondansetron) 4 mg Route: IVP; Site: left forearm; ad5 23:49 Follow up: Response: No adverse reaction ad5 22:52 CANCELLED (Patient Refused): Rocephin (cefTRIAXone) 1 grams IV at calculated rate once; ma2 Given slow IV push per pharmacy instructions 07/11 00:15 Drug: Zosyn (piperacillin-tazobactam) 3.375 grams Route: IVPB; Infused Over: 60 mins; ad5 Site: left forearm; 00:50 Drug: Fluconazole 200 mg {Note: order changed to po per MD CASSIE Ugalde} Volume: 100 ml; ad5 Route: IVPB; Infused Over: 60 mins; Site: Other; Disposition: 07/10/20 23:19 Hospitalization ordered by Willy Santacruz for Inpatient Admission. Preliminary diagnosis are Cystitis, unspecified without hematuria - with pyelonephritis, Other chest pain. - Bed requested for Telemetry/MedSurg (Inpatient). - Status is Inpatient Admission. ad5 - Condition is Stable. - Problem is new. - Symptoms are unchanged. Signatures: Dispatcher [employer] EDMS Caren Saul RN RN tl1 Anatoliy Cassidy MD MD ma2 Dina Lindsey RN RN ca1 Chilango Trejo PA PA ej Davidson, Andrea ad5 Corrections: (The following items were deleted from the chart) 07/10 22:52 22:41 cefTRIAXone [Rocephin (cefTRIAXone) 1 grams IV at calculated rate once; Given ma2 slow IV push per pharmacy instructions] ordered. ma2 23:19 23:19 Hospitalization Ordered by Willy Santacruz DO for Inpatient Admission. Preliminary ma2 diagnosis is Cystitis, unspecified without hematuria - with pyelonephritis; Other chest pain. Bed requested for Telemetry/MedSurg (observation). Status is Inpatient Admission. Condition is Stable. Problem is new. Symptoms are unchanged. [facility] [place] 07/11 03:13 05 23:19 07/10/2020 23:19 Hospitalization Ordered by Willy Santacruz DO for Inpatient tl1 Admission. Preliminary diagnosis is Cystitis, unspecified without hematuria - with pyelonephritis; Other chest pain. Bed requested for Telemetry/MedSurg (Inpatient). Status is Inpatient Admission. Condition is Stable. Problem is new. Symptoms are unchanged. [facility] [place] 07/11 04:28 03:13 07/10/2020 23:19 Hospitalization Ordered by Willy Santacruz DO for Inpatient ad5 Admission. Preliminary diagnosis is Cystitis, unspecified without hematuria - with pyelonephritis; Other chest pain. Bed requested for Telemetry/MedSurg (Inpatient). Status is Inpatient Admission. Condition is Stable. Problem is new. Symptoms are unchanged. tl1
[2020-07-10] MEDS ORDERED: FLUCONAZOLE 100 MG TAB ONE (23:24)
[2020-07-10] MEDS ORDERED: PIPER/TAZO/NS 3.375gm 3.375 GM/100 ML BAG ONE (23:24)
[2020-07-10 23:49] LABS: Absolute Lymphocytes (CBC) 0.7 K/uL (0.7-4.9); Basophils % 0.2 % (0-1.3); Hematocrit 35.3 % (36.0-45.0); Lymphocytes % 6.3 % (15.3-44.8)
[2020-07-11 00:07] LABS: Protime INR 1.08
[2020-07-11 00:17] LABS: ALT/SGPT 23 U/L (12-78); AST/SGOT 17 U/L (15-37); Albumin 3.2 g/dL (3.4-5.0); Alkaline Phosphatase 106 U/L (45-117); BUN Blood Urea Nitrogen 16 mg/dL (7-18); Bicarbonate 30 mmol/L (21-32); Bilirubin Direct 0.1 mg/dL (0-0.2); Bilirubin Total 0.4 mg/dL (0.2-1.0); Glucose Level 367 mg/dL (74-106); Magnesium 2.4 mg/dL (1.8-2.4); NT PRO-BNP 767 pg/mL (<125); Potassium 4.3 mmol/L (3.5-5.1); Sodium Level 139 mmol/L (136-145); Troponin (Emerg Dept Use Only) < 0.02 ng/mL (0.0-0.045)
[2020-07-11] MEDS ORDERED: ACETAMINOPHEN 500 MG TAB PO PRN (01:27)
[2020-07-11] MEDS ORDERED: NITROGLYCERIN 0.4 MG/TAB SL PRN (01:27)
--- NOTE | 2020-07-11 01:29 | P.HP ---
Certification for Inpatient Patient admitted to: Inpatient With expected LOS: >2 Midnights Patient will require the following post-hospital care: None Practitioner: I am a practitioner with admitting privileges, knowledge of patient current condition, hospital course, and medical plan of care. Services: Services provided to patient in accordance with Admission requirements found in Title 42 Section 412.3 of the Code of Federal Regulations Patient History Date of Service: 07/11/20 Reason for admission: pyelonephritis History of Present Illness: Ms. Bettencourt is a 74 yo F with HTN, HLD, chronic pancreatitis, GERD, depression and anxiety here today for flank pain, hematuria and nausea. Two weeks ago, she had a left ureteric stent placed for a chronic kidney stone. She says she has been taking amoxicillin and OTC antifungal since this time. Yesterday she underwent lithotripsy. Today her symptoms worsened. She denies fever, vomiting, dysuria, frequency, urgency, diarrhea. She has chronic incontinence. CT scan consistent with acute pyelonephritis. Urinalysis with 3+ glucose, trace ketones, 3+ blood, + nitrites, 3+ leukocyte esterase, and 3+ protein. GFR 36. Glu 367. BNP 767. Recent urine culture grew gram + and gram - bacteria as well as fungus. She also reports 10/10 sternal chest pressure lasting for 10-15 minutes, onset when sitting down. She says this has been going on for awhile and usually occurs with flares of her pancreatitis. She says she had a normal heart cath 2 or 3 years ago. Initial troponin wnl. Allergies No Known Allergies Allergy (Verified 07/11/20 01:24) Home Medications: Citalopram Hydrobromide [Celexa] 1 tab PO DAILY 03/24/20 Gabapentin [Neurontin*] 1 cap PO TID 03/24/20 Lipase/Protease/Amylase [Raza Kim 36,000 Units Capsule] 1 cap PO TID 03/24/20 Amlodipine [Norvasc*] 10 mg PO DAILY #30 tab 03/25/20 Pantoprazole [Protonix Tab*] 40 mg PO DAILY #30 tab 03/25/20 carvediloL [Coreg*] 6.25 mg PO BID #60 tab 03/25/20 Hydrocodone 5/APAP 325 [[place] 5/325*] 1 tab PO Q4H PRN tab 07/09/20 - Past Medical/Surgical History Diabetic: No -: Chronic pancreatitis -: Gastroesophageal reflux disease w Hiatal hernia -: Esophageal spasm -: Attention deficit disorder -: Hypertension -: Depression with anxiety -: Hyperlipidemia -: Chronic pain -: Fatty liver, nonalcoholic -: Urinary incontinence/Nephrolithiasis -: Recurrent UTI -: Hysterectomy -: Cholecystectomy -: Appendectomy -: back surgery -: knee surgery -: foot surgery -: EGD/ERCP -: Cardiac catheterization, no stent Psychosocial/ Personal History: Patient lives at home - Family History Father -: Diabetes, Cancer Notes: Type 2 Mother -: Hypertension, Diabetes Notes: Hypoglycemia Sister Notes: epilepsy - Social History Smoking Status: Never smoker Alcohol use: No CD- Drugs: No Caffeine use: No Place of Residence: Home Review of Systems General: Unremarkable Eyes: Unremarkable ENT: Unremarkable Respiratory: Unremarkable Cardiovascular: Chest Pain, As per HPI Gastrointestinal: Nausea, Abdominal Pain, As per HPI Genitourinary: Incontinence, Hematuria, As per HPI Musculoskeletal: Unremarkable Integumentary: Unremarkable Neurological: Unremarkable Lymphatics: Unremarkable Physical Examination - Physical Exam General: Alert, In no apparent distress, Oriented x3, Cooperative HEENT: Atraumatic, Normocephalic, PERRLA, Mucous membr. moist/pink, EOMI, Sclerae nonicteric Neck: Supple, 2+ carotid pulse no bruit, JVD not distended, No Thyromegaly, No LAD Respiratory: Clear to auscultation bilaterally, Normal air movement Cardiovascular: No edema, Normal pulses, Regular rate/rhythm, Normal S1 S2, No gallops, No rubs, No murmurs Capillary refill: <2 Seconds Gastrointestinal: Normal bowel sounds, Soft and benign, Non-distended, No ascites, No masses, No rebound, No guarding, Tenderness Musculoskeletal: No clubbing, No swelling, No contractures, No erythema, No tenderness, No warmth Integumentary: No rashes, No breakdown, No significant lesion, No tenderness/swelling, No erythema, No warmth, No cyanosis Neurological: Normal gait, Normal speech, Normal strength at 5/5 x4 extr, Normal tone, Sensation intact, Cranial nerves 3-12 intact, Normal affect Lymphatics: No axilla or inguinal lymphadenopathy - Studies Laboratory Data (last 24 hrs) 07/10/20 23:39: PT 12.4, INR 1.08 07/10/20 23:39: WBC 10.50, Hgb 11.6 L, Hct 35.3 L, Plt Count 139 L 07/10/20 23:39: Sodium 139, Potassium 4.3, BUN 16, Creatinine 0.98, Glucose 367 H, Magnesium 2.4, Total Bilirubin 0.4, AST 17, ALT 23, Alkaline Phosphatase 106 Assessment and Plan - Problems (Diagnosis) (1) Pyelonephritis Current Visit: Yes Status: Acute (2) Chest pain Onset Date: 11/16/16 Current Visit: No Status: Acute Qualifiers: Chest pain type: unspecified Qualified Code(s): R07.9 - Chest pain, unspecified (3) Chronic pancreatitis Onset Date: 08/31/17 Current Visit: No Status: Chronic Qualifiers: Pancreatitis type: unspecified pancreatitis type Qualified Code(s): K86.1 - Other chronic pancreatitis (4) Depression with anxiety Onset Date: 08/31/17 Current Visit: No Status: Chronic (5) HTN (hypertension) Onset Date: 08/31/17 Current Visit: No Status: Chronic Qualifiers: Hypertension type: essential hypertension Qualified Code(s): I10 - Essential (primary) hypertension (6) Hiatal hernia with GERD Onset Date: 08/31/17 Current Visit: No Status: Chronic (7) Hyperlipidemia Onset Date: 08/31/17 Current Visit: No Status: Chronic Qualifiers: Hyperlipidemia type: unspecified Qualified Code(s): E78.5 - Hyperlipidemia, unspecified - Plan Urology consulted IVF, continue IV zosyn and PO fluconazole pain management and zofran as needed will reconcile and continue home medications monitor BP, IV hydralazine PRN trend troponins and EKG SCDs for DVT ppx A1c pending, accuchecks and mild sliding scale Discharge Plan: Home Plan to discharge in: 72 Hours - Advance Directives Does patient have a Living Will: No Does patient have a Durable POA for Healthcare: No - Code Status/Comfort Care Code Status Assessed: Yes (full code) Critical Care: No Time Spent Managing Pts Care (In Minutes): 70
[2020-07-11 01:43] LABS: Blood Morphology Comment NOT SEEN (NOT SEEN); Platelet Estimate ADEQ
[2020-07-11] MEDS: NA CHLORIDE 0.9% 1,000 ML IV SCH ×4 (02:00→15:44)
[2020-07-11] MEDS: MORPHINE 2 MG/ML SYR IV PRN ×3 (02:04→21:42)
[2020-07-11] MEDS: ONDANSETRON 4 MG/2 ML VIAL IV PRN ×3 (02:06→21:42)
[2020-07-11] MEDS ORDERED: ONDANSETRON 4 MG/2 ML VIAL ONE (02:07)
[2020-07-11] MEDS ORDERED: MORPHINE 2 MG/ML SYR ONE (02:07)
[2020-07-11 02:49] VITALS: BMI 34.2
[2020-07-11 06:57] LABS: Albumin 3.1 g/dL (3.4-5.0); Bilirubin Total 0.4 mg/dL (0.2-1.0); Magnesium 2.2 mg/dL (1.8-2.4); Phosphorus 2.5 mg/dL (2.5-4.9); Potassium 4.1 mmol/L (3.5-5.1); Protein, Total 7.6 g/dL (6.4-8.2); Thyroid Stimulating Hormone 0.346 uIU/mL (0.360-3.740)
--- NOTE | 2020-07-11 07:18 | EKG ---
Test Date: 2020-07-10 Test Time: 17:52:29 Counter Waitress/Waiter: CARLOS MEASUREMENT RESULTS: Intervals: Rate: 76 [place]: 152 QRSD: 138 QT: 436 QTc: 490 [place]: P: 34 [place]: 152 QRS: 22 T: 198 INTERPRETIVE STATEMENTS: Normal sinus rhythm Nonspecific intraventricular block Cannot rule out Anterior infarct, age undetermined T wave abnormality, consider inferolateral ischemia Abnormal ECG Compared to ECG 03/24/2020 02:03:46 Myocardial infarct finding now present T-wave abnormality now present Possible ischemia now present Left bundle-branch block no longer present Electronically Signed On 07-11-20 07:17:33 CDT by Artemio Bolivar
[2020-07-11] MEDS ORDERED: PIPER/TAZO/NS 3.375gm 3.375 GM/100 ML BAG IVPB SCH ×2 (07:30→09:00)
--- NOTE | 2020-07-11 08:50 | RAD REPORT ---
EXAM DESCRIPTION: RAD - Chest Single View - 07/10/2020 9:40 pm CLINICAL HISTORY: CHEST PAIN Chest pain. COMPARISON: Chest Single View dated 03/24/2020; Abdomen Acute Series dated 07/11/2019; Chest Single Vie w dated 06/22/2019; Chest Single View dated 05/02/2019 FINDINGS: Portable technique limits examination quality. Mild linear opacity in the right lung base may represent atelectasis. The lungs are otherwise clear. The heart is upper limit normal in size. No displaced fractures.
[2020-07-11] MEDS: INSULIN -REGULAR HUMAN 50 UNIT/0.5 ML ML SQ SCH ×4 (09:14→21:00)
--- NOTE | 2020-07-11 11:17 | RAD REPORT ---
EXAM DESCRIPTION: Abdomen Pelvis Wo Contrast RadLex: CT ABDOMEN PELVIS WITHOUT IV CONTRAST CLINICAL HISTORY: Left flank pain s/p stent. COMPARISON: CT of the abdomen and pelvis from March 24, 2020. TECHNIQUE: Serial axial CT images were obtained from above the diaphragm through the pubic symphysis without administration of intravenous or oral contrast. All CT scans are performed using dose optimization techniques as appropriate, including automated exp osure control and/or standardized protocols, where dose is adjusted for indication for exam and body habitus. FINDINGS: Thoracic: No significant abnormality. Hepatobiliary: Diffuse hepatic steatosis. Hepatomegaly, measuring 19 cm in length. No obvious concern ing hepatic lesion identified in the absence of intravenous contrast. The gallbladder is surgically a bsent. Similar appearance of intrahepatic and extrahepatic pneumobilia. No biliary ductal dilatation. Pancreas: Unremarkable. Spleen: Unremarkable. Gastrointestinal: Again seen is a medium-sized sliding-type hiatal hernia which measures 4.2 x 0.5 cm . No evidence of bowel obstruction or perienteric inflammation. The appendix is nonvisualized, but th ere are no pericecal inflammatory changes. Moderate left colonic diverticulosis. Adrenals: No abnormality identified in either adrenal gland. Renal: Pigtail ureteral stent on the left begins in the renal pelvis/interpolar calyx, and terminates within the urinary bladder. Mild to moderate residual hydronephrosis. There is a moderate amount of gas within the left renal collecting system. There is a calculus in the left renal pelvis which measu res 1 x 0.6 cm. There is also a calculus in the anterior inferior pole which measures 0.6 x 2.9 cm. N o obvious parenchymal abnormality in either kidney in the absence of intravenous contrast. No right-s ided hydronephrosis or urolithiasis. Bladder/Reproductive: Trace gas in the urinary bladder. No bladder wall thickening. Vascular/Lymphatics: No lymphadenopathy identified by CT size criteria. Abdominal aorta is normal in caliber. Mild to moderate calcific atherosclerosis. Musculoskeletal: No concerning osseous lesion identified. Osteopenia. Spinal scoliosis and spondylosi s. Fluid / peritoneum: No significant free fluid. No free intraperitoneal air identified. IMPRESSION: 1. Left-sided ureteral stent with mild to moderate residual hydronephrosis. 2. Moderate amount of gas in the left renal collecting system. Trace gas in the urinary bladder. Co rrelate for emphysematous pyelitis. 3. Left-sided nephrolithiasis. 4. Chronic findings, as described. Electronically signed by: Kellie Toure MD 07/10/2020 10:30 PM CDT Due to temporary technical issues with the PACS/Fluency reporting system, reports are being signed by the in house radiologist without review as a courtesy to ensure prompt reporting. The interpreting r adiologist is fully responsible for the content of the report.
[2020-07-11] MEDS: PHENAZOPYRIDINE 100MG TAB PO PRN ×2 (16:11→21:52)
[2020-07-11] MEDS: HYDRALAZINE HCL 20 MG/ML VIAL IV PRN (16:12)
--- NOTE | 2020-07-11 18:52 | P.PN ---
Subjective Date of Service: 07/11/20 Chief Complaint: pyelonephritis Patient complaining of dysuria. No fever. Her blood sugar readings are elevated. Patient denies any history of diabetes. Physical Examination - Vital Signs Temperature: 97.5 F Blood Pressure: 137/66 Pulse: 86 Respirations: 17 Pulse Ox (%): 97 - Physical Exam General: Alert, In no apparent distress, Oriented x3 HEENT: Mucous membr. moist/pink Neck: JVD not distended Respiratory: Clear to auscultation bilaterally, Normal air movement Cardiovascular: No edema, Regular rate/rhythm, Normal S1 S2 Gastrointestinal: Normal bowel sounds, Soft and benign, No tenderness Musculoskeletal: No swelling, No tenderness Integumentary: No rashes Neurological: Normal strength at 5/5 x4 extr, Cranial nerves 3-12 intact - Studies Laboratory Data (last 24 hrs) 07/10/20 23:39: PT 12.4, INR 1.08 07/10/20 23:39: WBC 10.50, Hgb 11.6 L, Hct 35.3 L, Plt Count 139 L 07/10/20 23:39: Sodium 139, Potassium 4.3, BUN 16, Creatinine 0.98, Glucose 367 H, Magnesium 2.4, Total Bilirubin 0.4, AST 17, ALT 23, Alkaline Phosphatase 106 Microbiology Data (last 24 hrs): 07/11/20 00:04 Blood - Blood Anaerobic Blood Culture - Final Assessment And Plan - Current Problems (Diagnosis) (1) Elevated blood sugar Current Visit: Yes Status: Acute (2) Pyelonephritis Current Visit: Yes Status: Acute (3) Status post placement of ureteral stent Current Visit: Yes Status: Acute - Plan Continue current IV antibiotics. Follow urine culture and blood cultures. Consult to Urology-Dr. Garcia requested. Hemoglobin A1c is 9.1 suggesting diabetes mellitus. Manage blood sugar with insulin sliding scale. Patient is hard stick. She may need IV antibiotics for several days. She prefers PICC line. PICC line requested. Monitor electrolyte and replete as needed. Pain management as needed. Pyridium p.r.n. for dysuria.
[2020-07-11] MEDS: FLUCONAZOLE 100 MG TAB PO SCH (21:42)
[2020-07-11] MEDS: CEFTRIAXONE/SWI 1gm 1 GM/10 ML SYR IV SCH (21:42)
[2020-07-12] MEDS: NA CHLORIDE 0.9% 1,000 ML IV SCH ×4 (02:38→17:16)
[2020-07-12] MEDS: MORPHINE 2 MG/ML SYR IV PRN ×2 (02:39→07:55)
[2020-07-12] MEDS: ONDANSETRON 4 MG/2 ML VIAL IV PRN ×2 (02:39→09:17)
[2020-07-12] MEDS: HYDRALAZINE HCL 20 MG/ML VIAL IV PRN ×2 (04:23→12:59)
[2020-07-12] MEDS: INSULIN -REGULAR HUMAN 50 UNIT/0.5 ML ML SQ SCH ×4 (07:30→21:00)
[2020-07-12] MEDS: FLUCONAZOLE 100 MG TAB PO SCH (07:54)
[2020-07-12] MEDS: CEFTRIAXONE/SWI 1gm 1 GM/10 ML SYR IV SCH ×2 (07:55→21:00)
[2020-07-12] MEDS: CEPACOL LOZENGES PO PRN ×3 (09:16→18:32)
--- NOTE | 2020-07-12 10:59 | P.PN ---
Subjective Date of Service: 07/12/20 Chief Complaint: pyelonephritis Patient complaining of sore throat today No fever. Her blood sugar readings continue to be elevated. Physical Examination - Vital Signs Temperature: 98 F Blood Pressure: 158/86 Pulse: 84 Respirations: 16 Pulse Ox (%): 94 - Physical Exam General: Alert, In no apparent distress, Oriented x3 HEENT: Mucous membr. moist/pink Neck: JVD not distended Respiratory: Clear to auscultation bilaterally, Normal air movement Cardiovascular: Regular rate/rhythm, Normal S1 S2 Gastrointestinal: Normal bowel sounds, Soft and benign, Non-distended, No tenderness Musculoskeletal: No swelling, No tenderness Integumentary: No rashes Neurological: Normal strength at 5/5 x4 extr - Studies Microbiology Data (last 24 hrs): 07/10/20 09:17 Blood - Blood Anaerobic Blood Culture - Final 07/11/20 00:04 Blood - Blood Anaerobic Blood Culture - Final Assessment And Plan - Current Problems (Diagnosis) (1) Pyelonephritis Current Visit: Yes Status: Acute (2) Status post placement of ureteral stent Current Visit: Yes Status: Acute (3) Diabetes mellitus type 2 in obese Current Visit: Yes Status: Acute (4) Chronic pancreatitis Onset Date: 08/31/17 Current Visit: No Status: Chronic Qualifiers: Pancreatitis type: unspecified pancreatitis type Qualified Code(s): K86.1 - Other chronic pancreatitis - Plan Continue current IV antibiotics. Blood cultures: No growth to date Urine culture is still pending. Patient seen by urology. Awaiting input. Hemoglobin A1c is 9.1 suggesting diabetes mellitus. Manage blood sugar with insulin sliding scale. PICC line requested. Monitor electrolyte and replete as needed. Pain management as needed. Pyridium p.r.n. for dysuria. Cepacol p.r.n. for sore throat
--- NOTE | 2020-07-12 13:09 | RAD REPORT ---
EXAM DESCRIPTION: RAD - Chest Single View - 07/12/2020 1:00 pm CLINICAL HISTORY: PICC line placement COMPARISON: Chest Single View dated 07/10/2020; Chest Single View dated 03/24/2020; Abdomen Acute Serie s dated 07/11/2019; Chest Single View dated 06/22/2019 FINDINGS: Portable chest was obtained following placement of a right upper extremity PICC line. The catheter tip projects over the SVC..
[2020-07-12 17:11] LABS: Albumin 2.8 g/dL (3.4-5.0); Bilirubin Total 0.4 mg/dL (0.2-1.0); Magnesium 2.1 mg/dL (1.8-2.4); Phosphorus 2.4 mg/dL (2.5-4.9); Potassium 3.8 mmol/L (3.5-5.1); Protein, Total 6.8 g/dL (6.4-8.2)
[2020-07-12] MEDS ORDERED: POTASSIUM CL SA 10 MEQ TAB PO ONE (21:00)
[2020-07-13] MEDS: CEPACOL LOZENGES PO PRN ×2 (00:23→12:10)
[2020-07-13] MEDS: HYDRALAZINE HCL 20 MG/ML VIAL IV PRN (02:45)
[2020-07-13] MEDS: MORPHINE 2 MG/ML SYR IV PRN (02:59)
[2020-07-13] MEDS: NA CHLORIDE 0.9% 1,000 ML IV SCH ×2 (04:00→14:00)
[2020-07-13 05:44] LABS: Absolute Lymphocytes (CBC) 1.7 K/uL (0.7-4.9); Basophils % 0.6 % (0-1.3); Hematocrit 34.2 % (36.0-45.0); Lymphocytes % 22.5 % (15.3-44.8); MPV 8.8 fL (7.6-11.3); RBC Red Blood Cell Count 4.32 M/uL (3.86-4.86)
[2020-07-13 06:02] LABS: Potassium 4.1 mmol/L (3.5-5.1)
[2020-07-13] MEDS: INSULIN -REGULAR HUMAN 50 UNIT/0.5 ML ML SQ SCH ×4 (07:30→21:42)
[2020-07-13] MEDS ORDERED: HYDROCODONE/APAP 5/325 MG TAB PO PRN (08:51)
[2020-07-13] MEDS: AMLODIPINE 10 MG TAB PO SCH (09:33)
[2020-07-13] MEDS: CITALOPRAM 10 MG TABLET PO SCH (09:34)
[2020-07-13] MEDS: FLUCONAZOLE 100 MG TAB PO SCH (09:34)
[2020-07-13] MEDS: carvediloL 6.25 MG TAB PO SCH ×2 (09:34→21:41)
[2020-07-13] MEDS: GABAPENTIN 100 MG CAP PO SCH ×3 (09:34→21:41)
[2020-07-13] MEDS: PANTOPRAZOLE 40MG TABLET PO SCH (09:35)
[2020-07-13] MEDS: PHENAZOPYRIDINE 100MG TAB PO PRN (09:35)
[2020-07-13] MEDS: CEFTRIAXONE/SWI 1gm 1 GM/10 ML SYR IV SCH ×2 (09:36→21:43)
--- NOTE | 2020-07-13 10:38 | EKG ---
Test Date: 2020-07-12 Test Time: 12:46:14 Restaurant Supervisor: MEME MEASUREMENT RESULTS: Intervals: Rate: 97 UT: 140 QRSD: 128 QT: 406 QTc: 515 [place]: P: 57 UT: 140 QRS: 28 T: 71 INTERPRETIVE STATEMENTS: Normal sinus rhythm Nonspecific intraventricular block Cannot rule out Anteroseptal infarct, age undetermined Abnormal ECG Compared to ECG 07/10/2020 17:52:29 T-wave abnormality no longer present Possible ischemia no longer present Myocardial infarct finding still present Electronically Signed On 07-13-20 10:36:42 CDT by Artemio Bolivar
[2020-07-13] MEDS: LIPASE/PROTEASE/AMYLASE CAP PO SCH ×2 (12:11→16:22)
[2020-07-13] MEDS: ONDANSETRON 4 MG/2 ML VIAL IV PRN ×2 (12:15→16:17)
--- NOTE | 2020-07-13 13:24 | P.PN ---
Subjective Date of Service: 07/13/20 Chief Complaint: pyelonephritis Patient now complaining of intermittent diarrhea. She also reports dysuria. No fever. Elevated blood sugar Physical Examination - Vital Signs Temperature: 97.3 F Blood Pressure: 170/98 Pulse: 91 Respirations: 20 Pulse Ox (%): 95 - Physical Exam General: Alert, In no apparent distress, Oriented x3 HEENT: Mucous membr. moist/pink Neck: JVD not distended Respiratory: Clear to auscultation bilaterally, Normal air movement Cardiovascular: No edema, Regular rate/rhythm, Normal S1 S2 Gastrointestinal: Normal bowel sounds, Soft and benign, Non-distended, No tenderness Musculoskeletal: No swelling, No tenderness Integumentary: No rashes, No erythema Neurological: Normal strength at 5/5 x4 extr - Studies Microbiology Data (last 24 hrs): 07/10/20 09:17 Blood - Blood Anaerobic Blood Culture - Final Assessment And Plan - Current Problems (Diagnosis) (1) Pyelonephritis Current Visit: Yes Status: Acute (2) Status post placement of ureteral stent Current Visit: Yes Status: Acute (3) Diabetes mellitus type 2 in obese Current Visit: Yes Status: Acute (4) Chronic pancreatitis Onset Date: 08/31/17 Current Visit: No Status: Chronic Qualifiers: Pancreatitis type: unspecified pancreatitis type Qualified Code(s): K86.1 - Other chronic pancreatitis - Plan Continue current IV antibiotics. Blood cultures: No growth to date I called the lab today to follow urine culture Urine only to be told the urine culture remain uncollected. Patient seen by urology-Dr. Garcia Hemoglobin A1c is 9.1 suggesting diabetes mellitus. Manage blood sugar with insulin sliding scale. PICC line placed Monitor electrolyte and replete as needed. Pain management as needed. Pyridium p.r.n. for dysuria. Cepacol p.r.n. for sore throat.
[2020-07-13 19:49] LABS: Urine Appearance CLOUDY (Clear); Urine Bilirubin NEGATIVE (Negataive); Urine Blood 2+ (Negative); Urine Color ORANGE (Yellow); Urine Glucose 2+ (Negative); Urine Protein 1+ (Negative); Urine Specific Gravity 1.015 (1.005-1.030); Urine pH 5.5 (5.0-7.0)
[2020-07-13 20:20] LABS: Urine Microscopic Reflex ORDER UMIC
[2020-07-13 20:23] LABS: Urine Bacteria >50 /HPF (<20)
[2020-07-13] MEDS ORDERED: BISMUTH SUBSALICYL 262MG/15ML-240 ML BTL PO PRN (21:49)
[2020-07-14] MEDS: CEPACOL LOZENGES PO PRN ×2 (01:56→13:47)
[2020-07-14] MEDS: MORPHINE 2 MG/ML SYR IV PRN (06:23)
[2020-07-14] MEDS: ONDANSETRON 4 MG/2 ML VIAL IV PRN (06:31)
[2020-07-14] MEDS ORDERED: MORPHINE 2 MG/ML SYR IV ONE (06:51)
[2020-07-14 07:41] LABS: C.diff Antigen/Toxin Ag neg : Tox neg (NEG : NEG)
[2020-07-14] MEDS: CEFTRIAXONE/SWI 1gm 1 GM/10 ML SYR IV SCH ×2 (08:51→20:27)
[2020-07-14] MEDS: carvediloL 6.25 MG TAB PO SCH ×2 (08:52→20:26)
[2020-07-14] MEDS: CITALOPRAM 10 MG TABLET PO SCH (08:52)
[2020-07-14] MEDS: AMLODIPINE 10 MG TAB PO SCH (08:54)
[2020-07-14] MEDS: FLUCONAZOLE 100 MG TAB PO SCH (08:54)
[2020-07-14] MEDS: PANTOPRAZOLE 40MG TABLET PO SCH (08:54)
[2020-07-14] MEDS: GABAPENTIN 100 MG CAP PO SCH ×3 (08:54→20:26)
[2020-07-14] MEDS: LIPASE/PROTEASE/AMYLASE CAP PO SCH ×3 (08:55→17:05)
[2020-07-14] MEDS: INSULIN -REGULAR HUMAN 50 UNIT/0.5 ML ML SQ SCH ×4 (08:56→20:27)
--- NOTE | 2020-07-14 14:28 | P.PN ---
Subjective Date of Service: 07/14/20 Chief Complaint: pyelonephritis Patient complained of chest pain this morning. Troponin negative. EKG unchanged from previous. Her chest pain resolved with IV morphine. no fever. Physical Examination - Vital Signs Temperature: 97.6 F Blood Pressure: 117/56 Pulse: 60 Respirations: 18 Pulse Ox (%): 93 - Physical Exam General: Alert, In no apparent distress, Oriented x3 HEENT: Mucous membr. moist/pink Neck: Supple, JVD not distended Respiratory: Clear to auscultation bilaterally, Normal air movement Cardiovascular: No edema, Regular rate/rhythm, Normal S1 S2 Gastrointestinal: Normal bowel sounds, Soft and benign, Non-distended, No tenderness Musculoskeletal: No swelling, No tenderness Integumentary: No rashes Neurological: Normal strength at 5/5 x4 extr Assessment And Plan - Current Problems (Diagnosis) (1) Pyelonephritis Current Visit: Yes Status: Acute (2) Status post placement of ureteral stent Current Visit: Yes Status: Acute (3) Diabetes mellitus type 2 in obese Current Visit: Yes Status: Acute (4) Chronic pancreatitis Onset Date: 08/31/17 Current Visit: No Status: Chronic Qualifiers: Pancreatitis type: unspecified pancreatitis type Qualified Code(s): K86.1 - Other chronic pancreatitis - Plan Continue current IV antibiotics. Blood cultures: No growth to date Urine culture is pending. Patient seen by urology-Dr. Garcia Hemoglobin A1c is 9.1 suggesting diabetes mellitus. Manage blood sugar with insulin sliding scale. Planning outpatient therapy with oral hypoglycemics and Metformin. PICC line placed. Chest pain atypical. Not ACS. Monitor electrolyte and replete as needed. Pain management as needed. Pyridium p.r.n. for dysuria. Cepacol p.r.n. for sore throat.
[2020-07-14 20:05] VITALS: O2SAT 92
[2020-07-15] MEDS: CEPACOL LOZENGES PO PRN ×2 (03:31→08:04)
[2020-07-15] MEDS: INSULIN -REGULAR HUMAN 50 UNIT/0.5 ML ML SQ SCH ×3 (07:30→16:30)
[2020-07-15] MEDS: PANTOPRAZOLE 40MG TABLET PO SCH (07:48)
[2020-07-15] MEDS: LIPASE/PROTEASE/AMYLASE CAP PO SCH ×3 (07:48→16:39)
[2020-07-15] MEDS: AMLODIPINE 10 MG TAB PO SCH (07:49)
[2020-07-15] MEDS: FLUCONAZOLE 100 MG TAB PO SCH (07:49)
[2020-07-15] MEDS: GABAPENTIN 100 MG CAP PO SCH ×2 (07:49→14:13)
[2020-07-15] MEDS: carvediloL 6.25 MG TAB PO SCH (07:49)
[2020-07-15] MEDS: CITALOPRAM 10 MG TABLET PO SCH (07:50)
[2020-07-15] MEDS: CEFTRIAXONE/SWI 1gm 1 GM/10 ML SYR IV SCH (08:00)
[2020-07-15 08:19] LABS: Absolute Lymphocytes (CBC) 1.8 K/uL (0.7-4.9); Hematocrit 30.5 % (36.0-45.0); Lymphocytes % 26.1 % (15.3-44.8); MPV 8.8 fL (7.6-11.3); RBC Red Blood Cell Count 3.84 M/uL (3.86-4.86)
--- NOTE | 2020-07-15 10:44 | P.CNS ---
Date of Consult: 07/15/20 Chief Complaint: pyelonephritis History of Present Illness: The patient is a 74-year-old female with an extensive past medical history who presented to the emergency department due to flake pain, hematuria, and nausea. 2 weeks ago the patient had a left ureteric stent placed due to a chronic kidney stone. She states that she had been taking amoxicillin planned over the counter antifungal since that time. Patient underwent a lithotripsy on 07/10. She states that after that procedure her symptoms had worsened. CT scan performed consistent with acute pyelonephritis. Patient also had 10 on 10 sternal chest pain upon admission. Patient states the flares of chest pain have been going on for awhile and occurs when she has flares of for pancreatitis. Infectious disease has been consulted for oral antibiotic recommendations for discharge. Other bbodily fluid wound culture grew Enterococcus and Klebsiella, both sensitive to penicillins. Unclear source of this culture, likely urine. Blood cultures show no growth. Patient's also on fluconazole as UA and other bodily f luid culture grew yeast. Labs reviewed with no significant abnormalities, patient's remains hemodynamically stable. Allergies No Known Allergies Allergy (Verified 07/11/20 05:18) Home Medications: Citalopram Hydrobromide [Celexa] 1 tab PO DAILY 03/24/20 Gabapentin [Neurontin*] 1 cap PO TID 03/24/20 Lipase/Protease/Amylase [Raza Kim 36,000 Units Capsule] 1 cap PO TID 03/24/20 Amlodipine [Norvasc*] 10 mg PO DAILY #30 tab 03/25/20 Pantoprazole [Protonix Tab*] 40 mg PO DAILY #30 tab 03/25/20 carvediloL [Coreg*] 6.25 mg PO BID #60 tab 03/25/20 Hydrocodone 5/APAP 325 [[place] 5/325*] 1 tab PO Q4H PRN tab 07/09/20 Fluconazole [Diflucan] 150 mg PO DAILY 07/11/20 - Past Medical/Surgical History Diabetic: No -: Chronic pancreatitis -: Gastroesophageal reflux disease w Hiatal hernia -: Esophageal spasm -: Attention deficit disorder -: Hypertension -: Depression with anxiety -: Hyperlipidemia -: Chronic pain -: Fatty liver, nonalcoholic -: Urinary incontinence/Nephrolithiasis -: Recurrent UTI -: Hysterectomy -: Cholecystectomy -: Appendectomy -: back surgery -: knee surgery -: foot surgery -: EGD/ERCP -: Cardiac catheterization, no stent Psychosocial/ Personal History: Patient lives at home - Family History Father Medical History: Diabetes, Cancer Notes: Type 2 Mother Medical History: Hypertension, Diabetes Notes: Hypoglycemia Sister Notes: epilepsy - Social History Smoking Status: Unknown if ever smoked Alcohol use: No CD- Drugs: No Caffeine use: No Place of Residence: Home Review of Systems 10-point ROS is otherwise unremarkable Physical Examination Temp Pulse Resp BP Pulse Ox 97.9 F 64 16 160/72 H 93 07/15/20 07:42 07/15/20 07:49 07/15/20 07:42 07/15/20 07:49 07/15/20 07:42 General: Alert, In no apparent distress HEENT: Atraumatic, Normocephalic Neck: Supple, 2+ carotid pulse no bruit Respiratory: Clear to auscultation bilaterally, Normal air movement Cardiovascular: No edema, Normal pulses, Regular rate/rhythm Gastrointestinal: Normal bowel sounds Musculoskeletal: No clubbing Integumentary: No rashes, No breakdown Temp Pulse Resp BP Pulse Ox 97.9 F 64 16 160/72 H 93 07/15/20 07:42 07/15/20 07:49 07/15/20 07:42 07/15/20 07:49 07/15/20 07:42 Laboratory Last Values WBC 10.50 K/uL (4.3-10.9) 07/10/20 23:39 RBC 4.40 M/uL (3.86-4.86) 07/10/20 23:39 Hgb 11.6 g/dL (12.0-15.0) L 07/10/20 23:39 Hct 35.3 % (36.0-45.0) L 07/10/20 23:39 MCV 80.3 fL (80-100) 07/10/20 23:39 MCH 26.3 pg (27.0-35.0) L 07/10/20 23:39 MCHC 32.7 g/dL (32.0-36.0) 07/10/20 23:39 RDW 15.9 % (12.1-15.2) H 07/10/20 23:39 Plt Count 139 K/uL (152-406) L 07/10/20 23:39 MPV 9.0 fL (7.6-11.3) 07/10/20 23:39 Neutrophils % 85.9 % (41.7-73.7) H 07/10/20 23:39 Lymphocytes % 6.3 % (15.3-44.8) L 07/10/20 23:39 Monocytes % 7.6 % (3.3-12.3) 07/10/20 23:39 Eosinophils % 0.0 % (0-4.4) 07/10/20 23:39 Basophils % 0.2 % (0-1.3) 07/10/20 23:39 Absolute Neutrophils 9.0 K/uL (1.8-8.0) H 07/10/20 23:39 Segmented Neutrophils 93 % (40-80) H 07/10/20 23:39 Band Neutrophils 2 % (0-1) H 07/10/20 23:39 Absolute Lymphocytes 0.7 K/uL (0.7-4.9) 07/10/20 23:39 Lymphocytes 3 % (15-42) L 07/10/20 23:39 Monocytes 2 % (0-10) 07/10/20 23:39 Absolute Monocytes 0.8 K/uL (0.1-1.3) 07/10/20 23:39 Absolute Eosinophils 0.0 K/uL (0-0.5) 07/10/20 23:39 Absolute Basophils 0.0 K/uL (0-0.5) 07/10/20 23:39 Platelet Estimate Adeq 07/10/20 23:39 Morphology Comment Not seen (NOT SEEN) 07/10/20 23:39 PT 12.4 SECONDS (9.5-12.5) 07/10/20 23:39 INR 1.08 07/10/20 23:39 Sodium 139 mmol/L (136-145) 07/10/20 23:39 Potassium 4.3 mmol/L (3.5-5.1) 07/10/20 23:39 Chloride 104 mmol/L (98-107) 07/10/20 23:39 Carbon Dioxide 30 mmol/L (21-32) 07/10/20 23:39 BUN 16 mg/dL (7-18) 07/10/20 23:39 Creatinine 0.98 mg/dL (0.55-1.3) 07/10/20 23:39 Estimated GFR 56 mL/min (=/>90) L 07/10/20 23:39 Glucose 367 mg/dL (74-106) H 07/10/20 23:39 Calcium 8.5 mg/dL (8.5-10.1) 07/10/20 23:39 Magnesium 2.4 mg/dL (1.8-2.4) 07/10/20 23:39 Total Bilirubin 0.4 mg/dL (0.2-1.0) 07/10/20 23:39 Direct Bilirubin 0.1 mg/dL (0-0.2) 07/10/20 23:39 AST 17 U/L (15-37) 07/10/20 23:39 ALT 23 U/L (12-78) 07/10/20 23:39 Alkaline Phosphatase 106 U/L (45-117) 07/10/20 23:39 Rapid Troponin I < 0.02 ng/mL (0.0-0.045) 07/10/20 23:39 NT-Pro-B Natriuret Pep 767 pg/mL (<125) H 07/10/20 23:39 Serum Total Protein 8.0 g/dL (6.4-8.2) 07/10/20 23:39 Albumin 3.2 g/dL (3.4-5.0) L 07/10/20 23:39 Globulin 4.8 g/dL (2.3-3.5) H 07/10/20 23:39 Albumin/Globulin Ratio 0.7 (1.1-1.8) L 07/10/20 23:39 Urine pH 6.0 (5.0-7.0) 07/10/20 22:30 Ur Specific [place] 1.020 (1.005-1.030) 07/10/20 22:30 Glucose (UA)(Auto) 3+ (Negative) H 07/10/20 22:30 Urine Ketones Trace (Negative) H 07/10/20 22:30 Urine Blood 3+ (Negative) H 07/10/20 22:30 Urine Nitrite Positive (Negative) H 07/10/20 22:30 Ur Leukocyte Esterase 3+ (Negative) H 07/10/20 22:30 Urine Total Protein 3+ (Negative) H 07/10/20 22:30 Conclusions/Impression: Assessment: -pyelonephritis -chronic pancreatitis -hyperlipidemia -diabetes -anemia plan: -other review bilaterally fluid culture grew Klebsiella and Enterococcus both sensitive to penicillins. Unclear source of the culture, likely urine. Recommend patient be placed on 2 weeks of oral Augmentin as well as fluconazole. -medical management per primary team -continue monitor BMP and CBC -continue to monitor for signs infection Plan of care discussed with Dr. Kwan Thank you for consultation
--- NOTE | 2020-07-15 14:31 | P.DS ---
Admission Date: 07/11/20 Discharge Date: 07/15/20 Discharge Condition: FAIR Reason for Admission: pyelonephritis - Problems (1) Pyelonephritis Current Visit: Yes Status: Acute (2) Status post placement of ureteral stent Current Visit: Yes Status: Acute (3) Diabetes mellitus type 2 in obese Current Visit: Yes Status: Acute (4) Chronic pancreatitis Onset Date: 08/31/17 Current Visit: No Status: Chronic Qualifiers: Pancreatitis type: unspecified pancreatitis type Qualified Code(s): K86.1 - Other chronic pancreatitis Brief History of Present Illness: 74 yo woman with a history of HTN, HLD, chronic pancreatitis, GERD, depression and anxiety presented to the emergency department with a complaint of flank pain, hematuria and nausea. She had a left ureteric stent placed for a chronic kidney stone. She was taking amoxicillin and fluconazole since this time. She underwent lithotripsy the day prior to presentation. She has chronic incontinence. CT abdomen and pelvis done in the ED was consistent with acute pyelonephritis. Urinalysis with 3+ glucose, trace ketones, 3+ blood, + nitrites, 3+ leukocyte esterase, and 3+ protein. GFR 36. Glu 367. BNP 767. Recent urine culture grew gram + and gram - bacteria as well as fungus. She also reported intermittent sternal chest pressure which she relates to flares of her pancreatitis. She reports normal heart cath 2 or 3 years ago. Initial troponin wnl. EKG demonstrated sinus rhythm with LBBB which is chronic. Patient was hospitalized for further management. Hospital Course: Patient admitted to the medical floor and started on aggressive antibiotics which included IV vancomycin and cefepime and Diflucan. Patient also noted to have hyperglycemia. Hemoglobin A1c check was 9.1 suggest diabetes. Her blood sugar was managed with insulin sliding scale. Patient seen by dietitian and counseled on ADA diet. She is discharged with metformin for glucose management. Patient's urine culture done prior to admission grew Klebsiella and enterococcus. Infectious disease was consulted hole at this time recommend Augmentin based on the sensitivity results of both organisms and Diflucan.. She was also seen in consultation by urology-Dr. Garcia. Patient had an episode of chest pain. EKG done was unchanged from previous ones. Troponin checked multiple times all came back negative. Patient reports chronic chest pain and relates it to pancreatitis flare. She is on pancreatic enzyme supplementation. I suspect the diabetes is related to the chronic pancreatitis. Patient symptoms have significantly improved. The dysuria has resolved. Noted she also developed sore throat which was treated symptomatically. Patient will continue antibiotics to complete 14 days of treatment. She has an appointment to follow up with Dr. Garcia within 3 weeks. Continue current IV antibiotics. Blood cultures: No growth to date Urine culture is pending. Patient seen by urology-Dr. Garcia Hemoglobin A1c is 9.1 suggesting diabetes mellitus. Manage blood sugar with insulin sliding scale. Planning outpatient therapy with oral hypoglycemics and Metformin. PICC line placed. Chest pain atypical. Not ACS. Monitor electrolyte and replete as needed. Pain management as needed. Pyridium p.r.n. for dysuria. Cepacol p.r.n. for sore throat. Vital Signs/Physical Exam: Temp Pulse Resp BP Pulse Ox 98.5 F 71 16 115/59 L 98 07/15/20 12:00 07/15/20 12:00 07/15/20 12:00 07/15/20 12:00 07/15/20 12:00 General: Alert, In no apparent distress, Oriented x3 Neck: JVD not distended Respiratory: Clear to auscultation bilaterally, Normal air movement Cardiovascular: No edema, Regular rate/rhythm, Normal S1 S2 Gastrointestinal: Normal bowel sounds, Soft and benign, Non-distended, No tenderness Musculoskeletal: No swelling Integumentary: No rashes Neurological: Normal strength at 5/5 x4 extr Laboratory Data at Discharge: WBC 6.90 K/uL (4.3-10.9) 07/15/20 06:19 Hgb 9.9 g/dL (12.0-15.0) L 07/15/20 06:19 Hct 30.5 % (36.0-45.0) L 07/15/20 06:19 Plt Count 175 K/uL (152-406) 07/15/20 06:19 PT 12.4 SECONDS (9.5-12.5) 07/10/20 23:39 INR 1.08 07/10/20 23:39 Sodium 139 mmol/L (136-145) 07/15/20 06:19 Potassium 4.0 mmol/L (3.5-5.1) 07/15/20 06:19 BUN 10 mg/dL (7-18) 07/15/20 06:19 Creatinine 0.72 mg/dL (0.55-1.3) 07/15/20 06:19 Glucose 170 mg/dL (74-106) H 07/15/20 06:19 Phosphorus 2.4 mg/dL (2.5-4.9) L 07/12/20 16:18 Magnesium 2.1 mg/dL (1.8-2.4) 07/12/20 16:18 Total Bilirubin 0.4 mg/dL (0.2-1.0) 07/12/20 16:18 AST 21 U/L (15-37) 07/12/20 16:18 ALT 26 U/L (12-78) 07/12/20 16:18 Alkaline Phosphatase 99 U/L (45-117) 07/12/20 16:18 Troponin I < 0.02 ng/mL (0.0-0.045) 07/14/20 15:42 Triglycerides 162 mg/dL (<150) H 07/11/20 05:54 Cholesterol 130 mg/dL (<200) 07/11/20 05:54 HDL Cholesterol 61 mg/dL (40-60) H 07/11/20 05:54 Cholesterol/HDL Ratio 2.13 07/11/20 05:54 Home Medications: Citalopram Hydrobromide [Celexa] 1 tab PO DAILY 03/24/20 Gabapentin [Neurontin*] 1 cap PO TID 03/24/20 Lipase/Protease/Amylase [Raza Dr 36,000 Units Capsule] 1 cap PO TID 03/24/20 Amlodipine [Norvasc*] 10 mg PO DAILY #30 tab 03/25/20 Pantoprazole [Protonix Tab*] 40 mg PO DAILY #30 tab 03/25/20 carvediloL [Coreg*] 6.25 mg PO BID #60 tab 03/25/20 Hydrocodone 5/APAP 325 [[place] 5/325*] 1 tab PO Q4H PRN tab 07/09/20 Amoxicillin/Potassium Clav [Augmentin 875-125 Tablet] 1 each PO BID #20 tablet 07/15/20 Bismuth Subsal [[place]-Bismuth*] 15 ml PO TID #1 btl 07/15/20 Fluconazole 200 mg PO DAILY #10 tablet 07/15/20 Metformin HCl 500 mg PO BID #60 tablet 07/15/20 New Medications: Amoxicillin/Potassium Clav [Augmentin 875-125 Tablet] 1 each PO BID #20 tablet Fluconazole 200 mg PO DAILY #10 tablet Metformin HCl 500 mg PO BID #60 tablet Bismuth Subsal [[place]-Bismuth*] 15 ml PO TID #1 btl Diet: ADA Activity: Ad ange Followup: Dmitry Powell, DO [Primary Care Provider] - 1 Week (call to schedule an appointment ) Jonh Garcia [ACTIVE - CAN ADMIT] - 1-2 Weeks (call to schedule an appointment ) Time spent managing pt's care (in minutes): 42
[2020-07-15 16:04] VITALS: BP 122/60; TEMP 96.9
== END 2020-07-15 17:10 | disposition home or self-care (01) | DRG 690 ==
LOC: ER 17:43 → ERHOLD 07-11 01:17 → 4TH 07-11 03:16
PROVIDERS: ADMIT Internal Medicine; ATTEND Internal Medicine
PROC: 02HV33Z Insertion of Infusion Device into Superior Vena Cava, Percutaneous Approach (ICD-10-PCS; principal; 2020-07-12)
DX: N10 Acute pyelonephritis (principal); K86.1 Other chronic pancreatitis; K21.9 Gastro-esophageal reflux disease without esophagitis; E78.5 Hyperlipidemia, unspecified; F41.8 Other specified anxiety disorders; E11.65 Type 2 diabetes mellitus with hyperglycemia; D64.9 Anemia, unspecified; I10 Essential (primary) hypertension; K44.9 Diaphragmatic hernia without obstruction or gangrene; B95.2 Enterococcus as the cause of diseases classified elsewhere; B96.1 Klebsiella pneumoniae [K. pneumoniae] as the cause of diseases classified elsewhere; E66.9 Obesity, unspecified; Z68.34 Body mass index [BMI] 34.0-34.9, adult; Z90.49 Acquired absence of other specified parts of digestive tract; Z79.84 Long term (current) use of oral hypoglycemic drugs; Z90.710 Acquired absence of both cervix and uterus; Z87.891 Personal history of nicotine dependence; Z79.899 Other long term (current) drug therapy; Z96.0 Presence of urogenital implants; Z20.822 Contact with and (suspected) exposure to COVID-19
CPT/HCPCS: 36415; 36569; 51610; 71045; 74176; 74450; 80048; 80053; 80061; 80076; 81003; 81015; 82947; 83036; 83735; 83880; 84100; 84439; 84443; 84484; 85025; 85610; 87040; 87045; 87046; 87070; 87077; 87086; 87088; 87186; 87324; 87449; 93005; 94760; 99285; C9113; J0290; J0360; J0696; J1100; J1450; J1580; J2270; J2405; J2543; J2550; J2704; J3010; J7030; J7120; U0003

== ENCOUNTER 2020-08-13 07:39 | Day surgery (SDC) | payer OTHER ==
[2020-08-13] MEDS ORDERED: AMPICILLIN SODIUM 2 GM in NA CHLORIDE 0.9% 100 ML IVPB ONE (08:00)
[2020-08-13] MEDS ORDERED: Gentamicin Inj 180 MG in NA CHLORIDE 0.9% 100 ML IV ONE (08:00)
[2020-08-13 08:11] LABS: Absolute Lymphocytes (CBC) 2.1 K/uL (0.7-4.9); Basophils % 0.7 % (0-1.3); Hematocrit 36.7 % (36.0-45.0); Lymphocytes % 28.6 % (15.3-44.8); MPV 8.4 fL (7.6-11.3); RBC Red Blood Cell Count 4.65 M/uL (3.86-4.86)
[2020-08-13 08:16] LABS: Protime INR 1.03
[2020-08-13] MEDS ORDERED: MIDAZOLAM HCL 2 MG/2 ML INJ ONE (08:26)
[2020-08-13] MEDS ORDERED: propofoL 200 MG/20 ML VIAL IV ONE (08:26)
[2020-08-13] MEDS ORDERED: ONDANSETRON 4 MG/2 ML VIAL ONE (08:26)
[2020-08-13] MEDS ORDERED: FENTANYL CITR 100 MCG/2 ML ONE (08:26)
[2020-08-13 08:27] VITALS: BP 173/95; TEMP 98.2; O2SAT 95
[2020-08-13] MEDS ORDERED: NA CHLORIDE 0.9% 1,000 ML ONE (08:34)
[2020-08-13 09:21] LABS: Urine Appearance CLOUDY (Clear); Urine Bilirubin NEGATIVE (Negative); Urine Blood 1+ (Negative); Urine Color YELLOW (Yellow); Urine Glucose NEGATIVE (Negative); Urine Protein 1+ (Negative); Urine Specific Gravity 1.015 (1.005-1.030); Urine Urobilinogen 0.2 mg/dL (0.2-1.0)
[2020-08-13 09:45] LABS: Urine Microscopic Reflex ORDER UMIC
[2020-08-13] MEDS ORDERED: NA CIT/CITRIC AC 30 ML ORAL UDC ONE (10:11)
[2020-08-13 10:22] LABS: Urine Bacteria 20-50 /HPF (<20)
[2020-08-13 10:23] LABS: Urine Yeast PRESENT (NONE SEEN); Urine Yeast with Hyphae PRESENT
== END 2020-08-13 11:15 | disposition home or self-care (01) ==
LOC: OR 07:39
PROVIDERS: ATTEND Urology
DX: N20.0 Calculus of kidney (principal); Z20.822 Contact with and (suspected) exposure to COVID-19; Z53.09 Procedure and treatment not carried out because of other contraindication
CPT/HCPCS: 87088; 85025; 87086; 36415; 85610; 82947; 87077; 87186; U0003; J1580; J7030; J0290; 81003; 81015; J2250; J2405; J2704; J3010

== ENCOUNTER 2020-08-16 03:51 | Inpatient (IN) | payer OTHER ==
--- OUTSIDE RECORDS SUMMARY | 2020-08-16 03:54 | XMS REPORT | Continuity of Care Document ---
:1945 Author Organization [facility] t Address [address] [place] [address] Care Team Providers Name Role Phone Angelo Powell DO Primary Care Physician [facility] Attending Clinician Unavailable [facility] Admitting Clinician Unavailable Problems Condition Condition Condition Status Onset Resolution Last Treating Co mments Source Name Details Category Date Date Treatment Clinician Date Acute Acute Disease Active [facility] pancreat[facility] pancreatit 11-09 Mansi kes - is is 00:00: Medical 00 [place] Essential Essential Disease Active [facility] hypertensi hypertensi 11-09 Mansi kes - on on 00:00: Medical 00 [place] 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 11-09 Luke s - 00:00: Medical [address] [place] [address] Allergies, Adverse Reactions, Alerts This patient has no known allergies or adverse reactions. Social History Social Habit Start Date Stop Date Quantity Comments Source History [facility] Std Drinks Medica l Center History [facility] - Alcohol Binge Medical Carl ter Sex Assigned At [facility] kes [facility] Tobacco use and 2018-11-09 2018-11-09 Never used [facility] St Nazario kes - exposure 00:00:00 00:00:00 Medical [place] Alcohol intake 2018-11-09 2018-11-09 [facility] non-drinker of Medical Ce nter alcohol (finding) History [facility] 2018-11-09 2018-11-[address] [facility] - Alcohol Frequency 00:00:00 00:00:00 [facility] Center Smoking Status Start Date Stop Date Source Former smoker 2018-11-09 00:00:00 2018-11-09 00:00:[address] [facility] Medications Ordered Filled Start Stop Current Ordering Indication Dosage Frequency Signature Comments Components Source Medication Medication Date Date Medication? Clinician (SIG) Name Name pantoprazol Yes 40mg Q.5D Take [address] [facility] 9-06 by mouth 2 [facility] - (PROTONIX) 17:24: (two) Medica l 40 MG 08 times Center tablet daily . lipase-prot Yes 20066T{ Take [facility]-amyl[facility] 9-06 lipase} 36,000 [...] [facility] -07 Powell applicatio Informaat - 00:00 n to Memoria :00 affected [...] 00:00:00 (1 of 1 - Medical Center [id number] PCV13) [code = PNEUMOCOCCAL 65+ YRS (1 of 1 - [id number] PCV13)] Future Scheduled 1997-12-28 SHINGLES VACCINES (1 [...] es - Test 00:00:00 [facility] ([facility]) [code = 455380894] Future Scheduled [address] [facility] [place] es - Test 00:00:00 [facility] colon (procedure) [code = 827947425] Encounters Start End Encounter Admission Attending Care Care Encounter Source Date/Time Date/Time Type Type Clinicians Facility Department ID 2020-08-01 2020-08-01 Outpatient [facility] [id number] [facility] 2020-07-24 2020-07-24 Outpatient [facility] [id number] [facility] 2020-07-16 2020-07-16 [facility] [id number] 2020-07-16 2020-07-16 [facility] [id number] [facility] 2020-07-10 2020-07-10 Out[facility] [id number] [facility] 2020-07-05 2020-07-05 Out[facility] [id number] [facility] 2020-06-27 2020-06-27 Out[facility] [id number] [facility] 2020-06-24 2020-06-24 Out[facility] [id number] [facility] 2020-06-19 2020-06-19 Out[facility] [id number] [facility] 2020-05-20 2020-05-20 Out[facility] [id number] [facility] 2020-05-14 2020-05-14 Out[facility] [id number] [facility] 2020-04-19 2020-04-19 Outpatient [facility] [id number] [facility] 2020-04-16 2020-04-16 Outpatient [facility] [id number] [facility] 2019-09-29 2019-09-29 [facility] [id number] [address] 13:46:00 13:46:00 t [facility] [employer] [facility] s - Road [facility] Medicine l Medicine Outpati ent Clinics 2019-09-28 2019-09-28 [facility] [id number] 11:00:00 11:00:00 t Lydia [employer] [facility] - Drive [facility] Medicine l Medicine Outpati ent Clinics 2019-09-28 2019-09-28 [facility] [id number] 10:30:00 10:30:00 t Lydia Lydia [employer] [facility] - Drive [facility] Medicine l Medicine Outpati ent Clinics 2019-07-14 2019-07-14 [facility] [id number] 10:31:00 10:31:00 t Lydia Lydia [employer] [facility] s - Drive [facility] Medicine l Medicine Outpati ent Clinics 2018-12-15 2018-12-15 [facility] [id number] 16:00:00 16:00:00 t Lydia Lydia [employer] [facility] - Drive [facility] Medicine l Medicine Outpati ent Clinics 2018-09-14 2018-09-14 [facility] [id number] 15:45:00 15:45:00 t Lydia Lydia [employer] [facility] - Drive [facility] Medicine l Medicine Outpati ent Clinics 2018-08-30 2018-08-30 [facility] [id number] 08:00:00 08:00:00 t Lydia [employer] [facility] - Drive [facility] Medicine l Medicine Outpati ent Clinics 2018-06-10 2018-06-10 [facility] [id number] 16:46:00 16:46:00 t Lydia Lydia [employer] [facility] - Drive [facility] Medicine l Medicine Outpati ent Clinics 2018-06-09 2018-06-09 [facility] [id number] 09:18:00 09:18:00 t [facility] [employer] [facility] s - Road [facility] l Medicine Outpati ent Clinics 2018-06-07 2018-06-07 [facility] [id number] 15:00:00 15:00:00 t Lydia Lydia [employer] [facility] - Drive [facility] Medicine l Medicine Outpati ent Clinics 2018-04-25 2018-04-25 [facility] [id number] 09:15:00 09:15:00 t [facility] Outpati ent Clinics 2018-03-09 2018-03-09 [facility] [id number] 16:00:00 16:00:00 t [facility] Outpati ent Clinics 2018-03-03 2018-03-03 [facility] [id number] 08:52:00 08:52:00 t [facility] Medicine Outpati ent Clinics 2017-11-30 2017-11-30 [facility] [id number] 15:00:00 15:00:00 t [facility] Outpati ent Clinics 2017-09-30 2017-09-30 [facility] [id number] 15:00:00 15:00:00 t Specialty/U Mansi kes - Specialty rology [facility] a /Urology Clinic l Clinic Outpati ent Clinics 2017-09-29 2017-09-29 [facility] [id number] 10:13:00 10:13:00 t [facility] Outpati ent Clinics 2017-09-28 2017-09-28 [facility] [id number] 14:00:00 14:00:00 t [facility] Outpati ent Clinics Results Test Description Test Time Test Comments Results Result Comments Source PHOSPHORUS 2018-11-11 05:54:00 Test Item Value Reference Range Interpretation Comme nts PHOSPHORUS (BEAKER) (test code = 604) 3.6 mg/dL 2.3-4.7 [id number] 05:54:00 Test Item Value Reference Range Interpretation Comments MAGNESIUM (BEAKER) (test code = 1.8 mg/dL 1.6-2.6 627) BASIC METABOLIC [id number] 05:54:00 Test Item Value Reference Range Interpretation [...] APPLICABLE FOR DIALYSIS PATIEN TS. HEPATIC FUNCTION [id number] 05:54:00 Test Item Value Reference Range Interpretation [...] 6-55 347) CBC W/PLT COUNT & AUTO [id number] 05:43:00 Test Item Value Reference Range Interpretation [...] PERCENT (BEAKER) (test code = 2801) PROTHROMBIN [id number] 05:42:00 Test Item Value Reference Range Interpretation [...] is2.5-3.5 for patients wiht mechanical heart valves.HEMOGLOBIN [id number] 07:50:00 Test Item Value Reference Range Interpretation Comments HEMOGLOBIN A1C (BEAKER) (test code = 7.1 % 4.3-6.1 H 368) [id number] 04:53:00 Test Item Value Reference Range Interpretation Comments PHOSPHORUS (BEAKER) (test code = 3.2 mg/dL 2.3-4.7 604) [id number] 04:53:00 Test Item Value Reference Range Interpretation Comments MAGNESIUM (BEAKER) (test code = 1.8 mg/dL 1.6-2.6 627) BASIC METABOLIC [id number] 04:53:00 Test Item Value Reference Range Interpretation [...] APPLICABLE FOR DIALYSIS PATIEN TS. HEPATIC FUNCTION [id number] 04:53:00 Test Item Value Reference Range Interpretation [...] code = 12 U/L 6-55 347) PROTHROMBIN [id number] 04:19:00 Test Item Value Reference Range Interpretation [...] mechanical heart valves.CBC W/PLT COUNT & AUTO [id number] 04:14:00 Test Item Value Reference Range Interpretation [...] 0-1 PERCENT (BEAKER) (test code = 2801) [id number] 14:44:00 Test Item Value Reference Range Interpretation Comments LIPASE (BEAKER) (test code = 749) 972 U/L 8-78 H [id number] 13:06:00 Test Item Value Reference Range Interpretation Comments PHOSPHORUS (BEAKER) (test code = 3.3 mg/dL 2.3-4.7 604) [id number] 13:06:00 Test Item Value Reference Range Interpretation Comments MAGNESIUM (BEAKER) (test code = 2.0 mg/dL 1.6-2.6 627) BASIC METABOLIC [id number] 13:06:00 Test Item Value Reference Range Interpretation [...] GFR I S NOT APPLICABLE FOR DIALYSIS LETICIA TS. LIPID [id number] 13:06:00 Test Item Value Reference Range Interpretation [...] 130-159 High 160-189 Very High >=190HEPATIC FUNCTION [id number] 13:06:00 Test Item Value Reference Range Interpretation [...] 6-55 347) CBC W/PLT COUNT & AUTO [id number] 12:46:00 Test Item Value Reference Range Interpretation [...] PERCENT (BEAKER) (test code = 2801) PROTHROMBIN [id number] 12:39:00 Test Item Value Reference Range Interpretation [...]
[2020-08-16 04:54] LABS: Urine Blood 1+ (Negative); Urine Glucose Negative (Negative); Urine Protein 1+ (Negative); Urine Specific Gravity 1.025 (1.005-1.030); Urine pH 6.5 (5.0-7.0)
[2020-08-16 04:56] LABS: Absolute Lymphocytes (CBC) 1.7 K/uL (0.7-4.9); Basophils % 0.6 % (0-1.3); Hematocrit 36.3 % (36.0-45.0); Lymphocytes % 23.5 % (15.3-44.8); MPV 8.3 fL (7.6-11.3); Protime INR 1.04; RBC Red Blood Cell Count 4.63 M/uL (3.86-4.86)
[2020-08-16] MEDS ORDERED: MORPHINE 4 MG/ML SYR ONE ×3 (04:58→15:12)
[2020-08-16] MEDS ORDERED: ONDANSETRON 4 MG/2 ML VIAL ONE ×2 (04:58→06:33)
[2020-08-16] MEDS ORDERED: Meropenem 1 GM/100 ML BAG ONE (04:59)
[2020-08-16] MEDS ORDERED: NA CHLORIDE 0.9% 1,000 ML ONE ×2 (04:59→12:31)
[2020-08-16 05:04] LABS: ALT/SGPT 19 U/L (12-78); AST/SGOT 15 U/L (15-37); Albumin 3.5 g/dL (3.4-5.0); Alkaline Phosphatase 97 U/L (45-117); BUN Blood Urea Nitrogen 9 mg/dL (7-18); Bicarbonate 25 mmol/L (21-32); Bilirubin Direct 0.1 mg/dL (0-0.2); Bilirubin Total 0.5 mg/dL (0.2-1.0); Glucose Level 125 mg/dL (74-106); Lipase 244 U/L (73-393); Magnesium 2.2 mg/dL (1.8-2.4); NT PRO-BNP 649 pg/mL (<125); Potassium 4.3 mmol/L (3.5-5.1); Protein, Total 8.3 g/dL (6.4-8.2); Sodium Level 139 mmol/L (136-145); Troponin (Emerg Dept Use Only) < 0.02 ng/mL (0.0-0.045)
--- NOTE | 2020-08-16 06:01 | ER ---
Nurse's Notes [facility] Prasad Name: Isadora Bettencourt Age: 74 yrs Sex: Female : 1945 Arrival Date: 08/16/2020 Time: 03:54 Bed 20 Private MD: Diagnosis: Abdominal tenderness;Urinary tract infection, site not specified;Nausea;Essential (primary) hypertension Presentation: 08/16 03:58 Chief complaint: EMS states: lower abdominal pain started yesterday, also C/O nausea. wh Pt states Hx of Kidney stones. Coronavirus screen: Client denies travel out of the [place] in the last 14 days. At this time, the client does not indicate any symptoms associated with coronavirus-19. Ebola Screen: Patient negative for fever greater than or equal to 101.5 degrees Fahrenheit, and additional compatible Ebola Virus Disease symptoms Patient denies exposure to infectious person. Initial Sepsis Screen: Does the patient meet any 2 criteria?. Initial Sepsis Screen: Does the patient meet any 2 criteria? No. Patient's initial sepsis screen is negative. Does the patient have a suspected source of infection? Yes: Acute abdominal pain. Risk Assessment: Do you want to hurt yourself or someone else? Patient reports no desire to harm self or others. Onset of symptoms was August 16, 2020. 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 - Social history:: Smoking status: Patient denies any tobacco usage or history of. - Family history:: not pertinent. Screenin:02 Abuse screen: Denies threats or abuse. Denies injuries from another. Nutritional screening: No deficits noted. Tuberculosis screening: No symptoms or risk factors identified. Fall Risk None identified. Assessment: 04:01 General: Appears in no apparent distress. Behavior is calm, cooperative, appropriate for age. Pain: Complains of pain in suprapubic area. Neuro: Level of Consciousness is awake, alert, obeys commands, Oriented to person, place, time, situation. Cardiovascular: Capillary refill < 3 seconds. Respiratory: Airway is patent Respiratory effort is even, unlabored, Respiratory pattern is regular, symmetrical. GI: Abdomen is flat, non-distended, Reports lower abdominal pain, nausea. : No signs and/or symptoms were reported regarding the genitourinary system. EENT: No signs and/or symptoms were reported regarding the EENT system. Derm: Skin is intact, is healthy with good turgor, Skin is pink, warm \T\ dry. normal. Musculoskeletal: Circulation, motion, and sensation intact. 05:55 Reassessment: Patient appears in no apparent distress at this time. Patient and/or jb4 family updated on plan of care and expected duration. Pain level reassessed. Patient is alert, oriented x 3, equal unlabored respirations, skin warm/dry/pink. Report received from SHARMAINE Pickett. 07:16 Reassessment: Returned from CT.. 09:56 Reassessment: Patient appears in no apparent distress at this time. Patient and/or vg1 family updated on plan of care and expected duration. Pain level reassessed. Patient is alert, oriented x 3, equal unlabored respirations, skin warm/dry/pink. 10:43 Reassessment: Tessie from CT stated need to contact Dr Prater, Hospitalist, to request vg1 from a nation catheter be placed in pt in order to perform Rectal contrast. Pts bladder and kidneys still contain contrast from previously CT and it needs to be drained. 10:52 Reassessment: Called Dr Prater and left message on phone. vg1 10:54 Reassessment: Received VO from DR Paz to place nation catheter for patient. vg1 11:13 Reassessment: Tessie in CT called and notified of nation placement; stated to d/c in vg1 about an hour to drain bladder and will be by to get patient around 1230. 14:02 Reassessment: Received VO from Dr Paz to administer 4 mg of Morphine IVP x1. vg1 Vital Signs: 03:58 BP 195 / 86; Pulse 75; Resp 18; Temp 97.8; Pulse Ox 98% ; Weight 77.11 kg; Height 5 ft. wh 1 in. (154.94 cm); 05:00 BP 189 / 81; Pulse 70; Resp 20; Pulse Ox 95% ; wh 06:00 BP 194 / 87; Pulse 69; Resp 20; Pulse Ox 93% ; wh 07:17 BP 186 / 75; Pulse 76; Resp 18; Pulse Ox 97% ; wh 08:10 BP 145 / 61; Pulse 64; Resp 20; Pulse Ox 96% on R/A; kg 09:19 BP 106 / 50; Pulse 67; Resp 20; Pulse Ox 93% on R/A; kg 10:00 BP 107 / 47; Pulse 60; Resp 14; Pulse Ox 94% on R/A; vg1 12:45 BP 127 / 59; Pulse 63; Resp 18; Pulse Ox 97% on R/A; vg1 14:57 BP 104 / 50; Pulse 65; Resp 18; Pulse Ox 92% on R/A; tr6 03:58 Body Mass Index 32.12 (77.11 kg, 154.94 cm) ED Course: 03:54 Patient arrived in ED. em 03:58 Piyush Hanson, RN is Primary Nurse. 03:59 Anthony Kaminsik MD is Attending Physician. james 04:00 Triage completed. 04:02 Patient has correct armband on for positive identification. Bed in low position. Call light in reach. Side rails up X 1. Pulse ox on. NIBP on. 04:02 Arm band placed on right wrist. 04:43 XRAY Chest (1 view) In Process Unspecified. EDMS 05:59 Jeremiah Prater MD is Hospitalizing Provider. [facility] 07:02 CT Abd/Pelvis - PO and IV Contrast In Process Unspecified. EDMS 08:21 Abdomen 1 View (KUB) XRAY In Process Unspecified. EDMS 11:12 Nation cath inserted, using sterile technique, 16 Fr., by dc, balloon inflated, to vg1 gravity drainage. 12:25 Urine collected: Nation catheter specimen, clear, Amount Returned: 200mL. vg1 12:30 Nation cath removed intact, balloon deflated, Removed by NEHEMIAS Last. vg1 12:40 Pelvis Wo Cont In Process Unspecified. EDMS 15:48 No provider procedures requiring assistance completed. Patient admitted, IV remains in vg1 place. Administered Medications: 04:48 Drug: NS 0.9% 500 ml Route: IV; Rate: bolus; Site: right forearm; 05:19 Follow up: Response: No adverse reaction; IV Status: Completed infusion 04:50 Drug: morphine 4 mg {Note: RASS 0.} Route: IVP; Site: right forearm; 05:19 Follow up: Response: No adverse reaction; Pain is decreased; RASS: Alert and Calm (0) 04:52 Drug: Zofran (Ondansetron) 4 mg Route: IVP; Site: right forearm; 05:19 Follow up: Response: No adverse reaction; Nausea is decreased 04:54 Drug: Meropenem 1 grams Route: IV; Rate: per protocol; Site: right forearm; 05:19 Follow up: Response: No adverse reaction; IV Status: Completed infusion 05:20 Drug: NS 0.9% 1000 ml Route: IV; Rate: 125 ml/hr; Site: right forearm; wh 15:50 Follow up: IV Status: Infusion continued upon admission vg1 06:15 Drug: Zofran (Ondansetron) 4 mg Route: IVP; Site: right antecubital; jb4 07:19 Follow up: Response: No adverse reaction; Nausea is decreased 06:25 Drug: cloNIDine 0.1 mg Route: PO; jb4 07:19 Follow up: Response: No adverse reaction; Blood pressure is lowered 09:18 Drug: morphine 4 mg Route: IVP; Site: right antecubital; kg 09:55 Follow up: Response: No adverse reaction; Pain is decreased kg 14:55 Drug: morphine 4 mg Route: IVP; Site: right antecubital; vg1 15:50 Follow up: Response: No adverse reaction; Pain is decreased vg1 Outcome: 06:00 Decision to Hospitalize by Provider. james 15:49 Admitted to Tele accompanied by [facility], via wheelchair, room 211, with chart, Report vg1 called to SHARMAINE Cooper 15:49 Condition: stable 15:49 Instructed on the need for admit. 15:57 Patient left the ED. vg1 Signatures: Dispatcher [employer] Anthony Peralta MD MD cha Munoz, Edgar RN All Calvo RN RN jb4 Piyush Hanson RN RN Megan Ryder RN RN vg1 Deborah Samaniego RN RN tr6 Mandy Dai RN RN kg Corrections: (The following items were deleted from the chart) 04:01 03:58 BP 195 / 86; Pulse 75bpm; Resp 18bpm; Pulse Ox 98%; 77.11 kg; Height 5 ft. 1 in.; wh BMI: 32.1; wh 12:44 12:42 Nation cath removed intact, balloon deflated, Removed by NEHEMIAS Last Tech vg1 vg1
--- NOTE | 2020-08-16 06:01 | EDPHYS ---
Physician Documentation [facility] Name: Isadora Bettencourt Age: 74 yrs Sex: Female : 1945 Arrival Date: 08/16/2020 Time: 03:54 Bed 20 Private MD: NEHEMIAS Physician Anthony Kaminski HPI: 08/16 04:24 This 74 yrs old Female presents to ER via EMS with complaints of uti. esbl james and abd pain. 04:24 The patient presents with abdominal pain in the upper abdomen, in the lower abdomen, james abdominal distention in the upper abdomen, in the lower abdomen. Onset: The symptoms/episode began/occurred 3 day(s) ago. The patient presents with pelvic pain, that is located in/on the right lower quadrant and left lower quadrant, urinary symptoms, dysuria, frequency, hematuria, urgency. Onset: The symptoms/episode began/occurred 1 week(s) ago. Modifying factors: The symptoms are alleviated by nothing, the symptoms are aggravated by movement. Associated signs and symptoms: Pertinent positives:. Severity of symptoms: At their worst the symptoms were mild, in the emergency department the symptoms are unchanged. The patient is not sexually active. The symptoms do not radiate. 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 - Social history:: Smoking status: Patient denies any tobacco usage or history of. - Family history:: not pertinent. ROS: 04:24 Constitutional: Negative for fever, chills, and weight loss, Eyes: Negative for injury, james pain, redness, and discharge, ENT: Negative for injury, pain, and discharge, Neck: Negative for injury, pain, and swelling, Cardiovascular: Negative for chest pain, palpitations, and edema, Respiratory: Negative for shortness of breath, cough, wheezing, and pleuritic chest pain, Back: Negative for injury and pain, : Negative for injury, bleeding, discharge, and swelling, MS/Extremity: Negative for injury and deformity, Skin: Negative for injury, rash, and discoloration, Neuro: Negative for headache, weakness, numbness, tingling, and seizure, Psych: Negative for depression, anxiety, suicide ideation, homicidal ideation, and hallucinations, Allergy/Immunology: Negative for hives, rash, and allergies, Endocrine: Negative for neck swelling, polydipsia, polyuria, polyphagia, and marked weight changes, Hematologic/Lymphatic: Negative for swollen nodes, abnormal bleeding, and unusual bruising. 04:24 Abdomen/GI: Positive for abdominal pain, nausea, abdominal cramps, abdominal distension, of the right upper quadrant, left upper quadrant, right lower quadrant and left lower quadrant. Exam: 04:24 Constitutional: This is a well developed, well nourished patient who is awake, alert, james and in no acute distress. Head/Face: Normocephalic, atraumatic. Eyes: Pupils equal round and reactive to light, extra-ocular motions intact. Lids and lashes normal. Conjunctiva and sclera are non-icteric and not injected. Cornea within normal limits. Periorbital areas with no swelling, redness, or edema. ENT: Nares patent. No nasal discharge, no septal abnormalities noted. Tympanic membranes are normal and external auditory canals are clear. Oropharynx with no redness, swelling, or masses, exudates, or evidence of obstruction, uvula midline. Mucous membranes moist. Neck: Trachea midline, no thyromegaly or masses palpated, and no cervical lymphadenopathy. Supple, full range of motion without nuchal rigidity, or vertebral point tenderness. No Meningismus. Chest/axilla: Normal chest wall appearance and motion. Nontender with no deformity. No lesions are appreciated. Cardiovascular: Regular rate and rhythm with a normal S1 and S2. No gallops, murmurs, or rubs. Normal PMI, no JVD. No pulse deficits. Respiratory: Lungs have equal breath sounds bilaterally, clear to auscultation and percussion. No rales, rhonchi or wheezes noted. No increased work of breathing, no retractions or nasal flaring. Back: No spinal tenderness. No costovertebral tenderness. Full range of motion. Female : Normal external genitalia. Skin: Warm, dry with normal turgor. Normal color with no rashes, no lesions, and no evidence of cellulitis. MS/ Extremity: Pulses equal, no cyanosis. Neurovascular intact. Full, normal range of motion. Neuro: Awake and alert, GCS 15, oriented to person, place, time, and situation. Cranial nerves II-XII grossly intact. Motor strength 5/5 in all extremities. Sensory grossly intact. Cerebellar exam normal. Normal gait. Psych: Awake, alert, with orientation to person, place and time. Behavior, mood, and affect are within normal limits. 04:24 Abdomen/GI: Inspection: distension, Bowel sounds: normal, Palpation: moderate abdominal tenderness, in all quadrants, Liver: no appreciated palpable abnormalities, Hernia: not appreciated. 04:36 ECG was reviewed by the Attending Physician. james Vital Signs: 03:58 BP 195 / 86; Pulse 75; Resp 18; Temp 97.8; Pulse Ox 98% ; Weight 77.11 kg; Height 5 ft. wh 1 in. (154.94 cm); 05:00 BP 189 / 81; Pulse 70; Resp 20; Pulse Ox 95% ; wh 06:00 BP 194 / 87; Pulse 69; Resp 20; Pulse Ox 93% ; wh 07:17 BP 186 / 75; Pulse 76; Resp 18; Pulse Ox 97% ; wh 08:10 BP 145 / 61; Pulse 64; Resp 20; Pulse Ox 96% on R/A; kg 09:19 BP 106 / 50; Pulse 67; Resp 20; Pulse Ox 93% on R/A; kg 10:00 BP 107 / 47; Pulse 60; Resp 14; Pulse Ox 94% on R/A; vg1 12:45 BP 127 / 59; Pulse 63; Resp 18; Pulse Ox 97% on R/A; vg1 14:57 BP 104 / 50; Pulse 65; Resp 18; Pulse Ox 92% on R/A; tr6 03:58 Body Mass Index 32.12 (77.11 kg, 154.94 cm) MDM: 04:01 Patient medically screened. james 04:29 Differential diagnosis: nonspecific abdominal pain, urinary tract infection, bowel james obstruction, coronary artery disease, diverticulitis, gastritis, Mesenteric ischemia or infarction, non-specific abd pain, pancreatitis, Peptic Ulcer Disease. Data reviewed: vital signs, nurses notes, lab test result(s), EKG, radiologic studies, CT scan, plain films. Data interpreted: satellite project site monitor: rate is 75 beats/min, rhythm is regular, Pulse oximetry: is not applicable for this patient encounter. on. Test interpretation: by ED physician or midlevel provider: ECG, plain radiologic studies. Counseling: I had a detailed discussion with the patient and/or guardian regarding: the historical points, exam findings, and any diagnostic results supporting the discharge/admit diagnosis, lab results, radiology results, the need for further work-up and treatment in the hospital. 08/16 04:19 Order name: Basic Metabolic Panel; Complete Time: 05:30 [facility] 08/16 04:19 Order name: CBC with Diff; Complete Time: 05:04 [facility] 08/16 04:19 Order name: LFT's; Complete Time: 05:30 [facility] 08/16 04:19 Order name: Magnesium; Complete Time: 05:31 [facility] 08/16 04:19 Order name: NT PRO-BNP; Complete Time: 05:31 [facility] 08/16 04:19 Order name: PT-INR; Complete Time: 05:04 [facility] 08/16 04:19 Order name: Troponin (emerg Dept Use Only); Complete Time: 05:31 [facility] 08/16 04:19 Order name: XRAY Chest (1 view); Complete Time: 12:46 [facility] 08/16 04:19 Order name: Lipase; Complete Time: 05:31 [facility] 08/16 04:19 Order name: Urine Culture [facility] 08/16 04:36 Order name: COVID-19 : Document "Date of Symptom Onset" if Symptomatic. [facility] 08/16 04:54 Order name: Urine Dipstick-Ancillary; Complete Time: 05:04 [facility] 08/16 06:22 Order name: SARS-COV-2 RT PCR; Complete Time: 07:09 [facility] 08/16 04:19 Order name: EKG; Complete Time: 04:20 [facility] 08/16 04:19 Order name: Cardiac monitoring; Complete Time: 04:35 [facility] 08/16 04:19 Order name: EKG - Nurse/Tech; Complete Time: 04:35 [facility] 08/16 04:19 Order name: CT Abd/Pelvis - PO and IV Contrast; Complete Time: 12:46 [facility] 08/16 06:03 Order name: Abdomen 1 View (KUB) XRAY; Complete Time: 12:46 [facility] 08/16 10:10 Order name: Pelvis Wo Cont; Complete Time: 12:57 [facility] 08/16 04:19 Order name: IV Saline Lock; Complete Time: 04:35 [facility] 08/16 04:19 Order name: Labs collected and sent; Complete Time: 04:35 [facility] 08/16 04:19 Order name: O2 Per Protocol; Complete Time: 04:35 [facility] 08/16 04:19 Order name: O2 Sat Monitoring; Complete Time: 04:35 [facility] 08/16 04:19 Order name: Urine Dipstick-Ancillary (obtain specimen); Complete Time: 04:55 [facility] EC:36 Rate is 71 beats/min. Rhythm is regular. QRS [place] is Normal. [place] interval is normal. QRS james interval is prolonged at 138 msec. QT interval is normal. No Q waves. T waves are Normal. No ST changes noted. Clinical impression: Abnormal EKG without significant change and No evidence of ischemia. Interpreted by me. Reviewed by me. Administered Medications: 04:48 Drug: NS 0.9% 500 ml Route: IV; Rate: bolus; Site: right forearm; 05:19 Follow up: Response: No adverse reaction; IV Status: Completed infusion 04:50 Drug: morphine 4 mg {Note: RASS 0.} Route: IVP; Site: right forearm; 05:19 Follow up: Response: No adverse reaction; Pain is decreased; RASS: Alert and Calm (0) 04:52 Drug: Zofran (Ondansetron) 4 mg Route: IVP; Site: right forearm; 05:19 Follow up: Response: No adverse reaction; Nausea is decreased 04:54 Drug: Meropenem 1 grams Route: IV; Rate: per protocol; Site: right forearm; 05:19 Follow up: Response: No adverse reaction; IV Status: Completed infusion 05:20 Drug: NS 0.9% 1000 ml Route: IV; Rate: 125 ml/hr; Site: right forearm; wh 15:50 Follow up: IV Status: Infusion continued upon admission vg1 06:15 Drug: Zofran (Ondansetron) 4 mg Route: IVP; Site: right antecubital; jb4 07:19 Follow up: Response: No adverse reaction; Nausea is decreased wh 06:25 Drug: cloNIDine 0.1 mg Route: PO; jb4 07:19 Follow up: Response: No adverse reaction; Blood pressure is lowered wh 09:18 Drug: morphine 4 mg Route: IVP; Site: right antecubital; kg 09:55 Follow up: Response: No adverse reaction; Pain is decreased kg 14:55 Drug: morphine 4 mg Route: IVP; Site: right antecubital; vg1 15:50 Follow up: Response: No adverse reaction; Pain is decreased vg1 Disposition: 08/16/20 06:00 Hospitalization ordered by Jeremiah Prater for Inpatient Admission. Preliminary diagnosis are Abdominal tenderness, Urinary tract infection, site not specified, Nausea, Essential (primary) hypertension. - Bed requested for Telemetry/MedSurg (Inpatient). - Status is Inpatient Admission. vg1 - Condition is Fair. - Problem is new. - Symptoms have improved. Signatures: Dispatcher [employer] [facility] Anthony Kaminski MD MD cha Rittger, Kevin, MD MD kdr Wilfredo Phillips, ASSISTANT BASEBALL COACH-C ASSISTANT BASEBALL COACH-Cla1 All Avila, RN RN jb4 Piyush Hanson, RN RN Carlee Morocho Victoria, RN RN vg1 Mandy Dai RN RN kg Corrections: (The following items were deleted from the chart) 04:39 04:36 CORONAVIRUS ordered. [facility] 06:14 06:00 Hospitalization Ordered by Jeremiah Prater MD for Inpatient Admission. Preliminary james diagnosis is Abdominal tenderness; Urinary tract infection, site not specified. Bed requested for Telemetry/MedSurg (Inpatient). Status is Inpatient Admission. Condition is Fair. Problem is new. Symptoms have improved. james 06:19 06:14 08/16/2020 06:00 Hospitalization Ordered by Jeremiah Prater MD for Inpatient james Admission. Preliminary diagnosis is Abdominal tenderness; Urinary tract infection, site not specified; Nausea. Bed requested for Telemetry/MedSurg (Inpatient). Status is Inpatient Admission. Condition is Fair. Problem is new. Symptoms have improved. james 10:10 10:06 Pelvis W/Cont ordered. [facility] 15:21 06:19 08/16/2020 06:00 Hospitalization Ordered by Jeremiah Prater MD for Inpatient eb Admission. Preliminary diagnosis is Abdominal tenderness; Urinary tract infection, site not specified; Nausea; Essential (primary) hypertension. Bed requested for Telemetry/MedSurg (Inpatient). Status is Inpatient Admission. Condition is Fair. Problem is new. Symptoms have improved. james 15:57 15:21 08/16/2020 06:00 Hospitalization Ordered by Jeremiah Prater MD for Inpatient vg1 Admission. Preliminary diagnosis is Abdominal tenderness; Urinary tract infection, site not specified; Nausea; Essential (primary) hypertension. Bed requested for Telemetry/MedSurg (Inpatient). Status is Inpatient Admission. Condition is Fair. Problem is new. Symptoms have improved. eb
[2020-08-16] MEDS ORDERED: cloNIDine HCL 0.1 MG TAB ONE (06:42)
--- NOTE | 2020-08-16 07:23 | RAD REPORT ---
EXAM DESCRIPTION: Anatoly Single View08/16/2020 4:43 am CLINICAL HISTORY: Abdominal pain COMPARISON: July 2020 FINDINGS: The lungs appear clear of acute infiltrate. The heart is mildly enlarged IMPRESSION: No acute abnormalities displayed
--- NOTE | 2020-08-16 07:23 | RAD REPORT ---
EXAM DESCRIPTION: 2 - Abdomen Pelvis W Contrast - 08/16/2020 7:02 am CLINICAL HISTORY: Abdominal pain. COMPARISON: None. July 2020 TECHNIQUE: Computed axial tomography of the abdomen and pelvis was obtained. 100 cc Isovue-300 is ad ministered intravenously. Oral contrast was given. All CT scans are performed using dose optimization technique as appropriate and may include automated exposure control or mA/KV adjustment according to patient size. FINDINGS: Fatty liver. Chronic pneumobilia. Moderate hiatal hernia. The spleen, adrenals and right kidney are unremarkable. Left ureteral stent in place with mild left hydronephrosis unchanged. Small amount of air within the bladder. Left renal calculi are again demonstrated 2.7 centimeter pseudocyst pancreatic tail region. The pancreatic body and tail are atrophic. Pancreat ic head unremarkable. Minimal stranding is present adjacent to the pancreatic head. Diverticula stem from the colon without evidence diverticulitis. IMPRESSION: Mild acute pancreatitis. 2.7 centimeter pancreatic pseudocyst minimally enlarged from the prior CAT scan. Left ureteral stent in place with mild left hydronephrosis. Air in the bladder could be post instrumentation or secondary to infection.
--- NOTE | 2020-08-16 09:17 | RAD REPORT ---
EXAM DESCRIPTION: RAD - Abdomen 1 View (KUB) - 08/16/2020 8:21 am CLINICAL HISTORY: Abdomen pain. FINDINGS: The bowel gas pattern is unremarkable. Left ureteral stent in place Contrast is present within the right renal pelvis. Mild hydronephrosis. Contrast is present within the left renal pelvis. Mild left hydronephrosis. Left renal calculi are present
--- NOTE | 2020-08-16 12:55 | RAD REPORT ---
EXAM DESCRIPTION: CT - Pelvis Wo Cont - 08/16/2020 12:40 pm CLINICAL HISTORY: Pelvic pain COMPARISON: August 16, 2020 TECHNIQUE: Computed axial tomography of the pelvis was obtained. Contrast was administered into the rectum. All CT scans are performed using dose optimization technique as appropriate and may include automated exposure control or mA/KV adjustment according to patient size. FINDINGS: The examination was performed to assess for a possible colovesical fistula. A couple of air bubbles are present within the bladder. A sigmoid diverticulum abuts the bladder. Stranding within the adjacent fat is not noted. Contrast from the recent CT scan is present within the bladder. A Dobson catheter was placed in an att empt to drain the bladder. A followup CT scan was performed with the delay of over 2 hours so that th e kidneys and ureters would not be delivering contrast the bladder. Unfortunately, the Dobson catheter did not completely drain the contrast from the bladder IMPRESSION: My suspicion for an colovesical fistula is low given that sigmoid diverticulitis is not present. However, this cannot be stated with certainty as contrast from the recent CT scan is present within t he bladder. So there is no way to currently determine if the contrast is entirely from the genitourin brady system or if it is a combination that and from the sigmoid colon. To definitively determine if a fistula is present there needs to be no contrast within the bladder p rior to CT scan. Then rectal contrast needs to be given and a CT pelvis performed
[2020-08-16] MEDS: ENOXAPARIN 40 MG/0.4 ML SQ SCH (16:00)
[2020-08-16] MEDS ORDERED: Meropenem 1 GM/100 ML BAG IV SCH (16:00)
[2020-08-16 16:13] VITALS: BMI 32.1
[2020-08-16] MEDS: Meropenem 1 GM/100 ML BAG IV SCH (17:17)
--- NOTE | 2020-08-16 19:18 | P.HP ---
Certification for Inpatient Patient admitted to: Inpatient With expected LOS: >2 Midnights Practitioner: I am a practitioner with admitting privileges, knowledge of patient current condition, hospital course, and medical plan of care. Services: Services provided to patient in accordance with Admission requirements found in Title 42 Section 412.3 of the Code of Federal Regulations Patient History Date of Service: 08/16/20 Reason for admission: UTI, resistant, pancreatitis History of Present Illness: 74-year-old female, PMH: HTN, HLD, chronic pancreatitis, GERD, depression and anxiety, multiple urinary tract infections, history of nephrolithiasis Presents to the ER today due to progressively worsening abdominal pain over the last week. Patient states she has pain in her upper abdomen as well as her lower abdomen. She states this does not feel like her prior pancreatitis, nor her prior infection/kidney stones. Patient was supposed to undergo her third round of lithotripsy a few days ago, however, was cancelled due to patients symptoms. A urine culture was obtained which grew resistant Morganella, only sensitive to meropenem. Urologist concerned for fistula due to patients multiple urinary infections with multiple different organisms over the last few months. Patient denies SOB, chest pain, diarrhea, vomiting. +nausea Unfortunately CT abdomen/pelvis obtained in the ER about the motor evaluate for fistula. Repeat CT scan cannot rule out fistula due to prior IV contrast now filling bladder. CT scan was notable for mild a cute pancreatitis findings. Patient will be admitted for IV meropenem, will need pic line, check blood cultures, he needs to be further evaluated for potential fistula. Allergies No Known Allergies Allergy (Verified 08/13/20 08:29) Home Medications: Citalopram Hydrobromide [Celexa] 1 tab PO DAILY 03/24/20 Fluconazole 200 mg PO DAILY #10 tablet 07/15/20 Famotidine [Pepcid] 20 mg PO DAILY 08/16/20 Metformin HCl 500 mg PO DAILY 08/16/20 Pantoprazole [Protonix Tab*] 40 mg PO BID 08/16/20 - Past Medical/Surgical History Has patient received pneumonia vaccine in the past: Yes Diabetic: No -: Chronic pancreatitis -: Gastroesophageal reflux disease w Hiatal hernia -: Esophageal spasm -: Attention deficit disorder -: Hypertension -: Depression with anxiety -: Hyperlipidemia -: Chronic pain -: Fatty liver, nonalcoholic -: Urinary incontinence/Nephrolithiasis -: Recurrent UTI -: Hysterectomy -: Cholecystectomy -: Appendectomy -: back surgery -: knee surgery -: foot surgery -: EGD/ERCP -: Cardiac catheterization, no stent Psychosocial/ Personal History: Patient lives at home - Family History Father -: Diabetes, Cancer Notes: Type 2 Mother -: Hypertension, Diabetes Notes: Hypoglycemia Sister Notes: epilepsy - Social History Smoking Status: Never smoker Alcohol use: No CD- Drugs: No Caffeine use: No Place of Residence: Home Review of Systems 10-point ROS is otherwise unremarkable Physical Examination - Vital Signs Temperature: 97.6 F Blood Pressure: 176/72 Pulse: 60 Respirations: 18 Pulse Ox (%): 98 - Physical Exam General: Alert, Mild distress HEENT: Sclerae nonicteric Neck: Supple Respiratory: Clear to auscultation bilaterally, Normal air movement Cardiovascular: No edema, Regular rate/rhythm, Normal S1 S2 Gastrointestinal: Soft and benign, Non-distended, Tenderness (epigastrium and lower abdomen (L>R)) Musculoskeletal: No erythema, No tenderness Integumentary: No rashes Neurological: Normal speech, Normal affect - Studies Laboratory Data (last 24 hrs) 08/16/20 04:10: PT 12.0, INR 1.04 08/16/20 04:10: WBC 7.40, Hgb 11.8 L, Hct 36.3, Plt Count 192 08/16/20 04:10: Sodium 139, Potassium 4.3, BUN 9, Creatinine 0.77, Glucose 125 H, Magnesium 2.2, Total Bilirubin 0.5, AST 15, ALT 19, Alkaline Phosphatase 97, Lipase 244 Assessment and Plan - Advance Directives Does patient have a Living Will: No Does patient have a Durable POA for Healthcare: No Physician Review Additional Text: Problem List Urinary tract infection, multi-drug resistant acute on chronic pancreatitis HTN GERD depression and anxiety -admit, med/surg w/ telemetry -pt does not appear to be septic at this time -IV meropenem -NPO with ice chips, pt reported some nausea earlier, IV fluids -Discussed case over the phone with patients urologist, unfortunately he will be out of town. Recommended general surgery consult. -Repeat imaging to further evaluate for fistula once current contrast has been out of her system -Obtain home medications, restart as appropriate. -f/u cultures, pt did receive PO antibiotic prior to admission Vte: lovenox Code: full Dispo: anticipate dc home in ~72hrs Time Spent Managing Pts Care (In Minutes): 80
[2020-08-16] MEDS: PANTOPRAZOLE 40MG TABLET PO SCH (20:16)
[2020-08-17] MEDS: Meropenem 1 GM/100 ML BAG IV SCH ×3 (00:47→16:32)
[2020-08-17] MEDS: NA CHLORIDE 0.9% 1,000 ML IV SCH ×5 (00:48→23:16)
[2020-08-17 06:13] LABS: Absolute Lymphocytes (CBC) 0.7 K/uL (0.7-4.9); Basophils % 0.9 % (0-1.3); Hematocrit 31.5 % (36.0-45.0); Lymphocytes % 14.7 % (15.3-44.8); MPV 8.4 fL (7.6-11.3); RBC Red Blood Cell Count 3.99 M/uL (3.86-4.86)
[2020-08-17 06:31] LABS: Albumin 2.8 g/dL (3.4-5.0); Bilirubin Total 0.7 mg/dL (0.2-1.0); Magnesium 2.3 mg/dL (1.8-2.4); Potassium 4.5 mmol/L (3.5-5.1); Protein, Total 6.7 g/dL (6.4-8.2)
--- NOTE | 2020-08-17 07:36 | P.PN ---
Subjective Date of Service: 08/17/20 Chief Complaint: UTI, resistant, pancreatitis Subjective: Other (no significant new changes. pt refused telemetry. upset from multiple attempts to draw blood reports epigastric pain is maybe slightly better. lower abdominal pain is worse on right today, better on left. voiding, +dysuria) Review of Systems 10-point ROS is otherwise unremarkable Physical Examination - Vital Signs Temperature: 97.7 F Blood Pressure: 137/77 Pulse: 72 Respirations: 18 Pulse Ox (%): 93 Assessment & Plan Physician Review Additional Text: Physical Exam Gen: NAD, AAOx3 HEENT: Normal conjunctiva, sclerae anicteric Pulmonary: Clear auscultation bilaterally, nonlabored respirations on room air CV: Regular rate and rhythm, no murmur Abd: Tenderness to palpation in the epigastric and lower abdomen/suprapubic region (R>L) Integumentary - no rash/lesions Problem List Urinary tract infection, multi-drug resistant acute on chronic pancreatitis HTN GERD depression and anxiety -pt does not appear to be septic -continue IV meropenem for resistant morganella (Cx obtained outpatient) -NPO with ice chips, reported nausea this morning, no vomiting, IVF @125ml/hr -Discussed with urologist on admission, concern for recto-vesicular fistula with recurrent UTIs , different bacteria each time -unfortunately both CT scans done yesterday were suboptimal and can't rule out fistula -general surgery consulted for recommendations /guidance on further evaluation. KUB ordered for tomorrow to eval for clearance of contrast from bladder -once contrast is clear, can obtain CT with contrast enema to most accurately eval for fistula -PICC ordered -continue home meds as appropriate -f/u cultures, pt did receive PO antibiotic prior to admission VTE: lovenox Code: full Dispo: anticipate dc home in ~48-72hrs will need PICC / IV antibiotics Time Spent Managing Pts Care (In Minutes): 35
[2020-08-17] MEDS: ENOXAPARIN 40 MG/0.4 ML SQ SCH (08:57)
[2020-08-17] MEDS: PANTOPRAZOLE 40MG TABLET PO SCH ×2 (08:58→22:18)
[2020-08-17] MEDS: MORPHINE 4 MG/ML SYR IV PRN ×2 (08:58→22:49)
[2020-08-17] MEDS ORDERED: CITALOPRAM HYDROBROMIDE 40 MG PO SCH (09:00)
--- NOTE | 2020-08-17 10:36 | CON ---
Date of Consultation: 08/16/2020 Reason For Consultation: Abdominal pain. History Of Present Illness: The patient is a 74-year-old female, who has had recurrent UTI of differ ent organisms for the past several months. She has seen Dr. Garcia, our new urologist, to determine whether she has a colovesical fistula. She also was noted to have a kidney stone on the left side w hich she states could be cause of the recurrent UTI as well and she has not undergone an instrumentat ion of her bladder for the last month or so and she came in because of progressive increasing abdomin al pain over the last week. Pain was in the upper abdomen as well as the lower abdomen. She has his tory of pancreatitis as well. She was supposed to undergo an episode of lithotripsy; however, it was canceled because the patient was symptomatic and a urine culture was obtained which grew out Rosetta lla, only sensitive to meropenem. The patient does have nausea, but no vomiting. No sore throat, ru nny nose, cough, headaches, or dizziness. No chest pain. No fever or chills. Review of Systems: Otherwise unremarkable. Please note, Dr. Garcia did contact me. Although he is out of town, he gra cefully explained the patient's history and help determined the current management. Past Medical History: Significant for chronic pancreatitis, GERD, ADD, hypertension, esophageal spas m, hyperlipidemia, and recurrent UTI. Past Surgical History: Hysterectomy, cholecystectomy, appendectomy, back surgery, knee surgery, foot surgery, multiple EGDs, ERCP, cardiac catheterization. Allergies: NONE. Habits: The patient denies smoking or drinking alcohol. Family History: Significant for hypertension, diabetes, a sister with epilepsy and father with unkno wn type of cancer. Physical Examination: Vital Signs: Stable. She is afebrile. General: She is awake, alert, and oriented x3. Head and Neck: Cranial nerves 2 through 12 grossly within normal limits. No neck masses. No JVD. Throat clear. Neck is supple. Chest: Clear. Heart: S1 and S2. Abdomen: Soft, slightly distended. Hypoactive bowel sounds. Tender in the upper abdomen as well as the lower abdomen, but no rebound rigidity or guarding. Extremities: Adequately perfused. Nontender. Neuro: Nonfocal. Laboratory Data: Reviewed. White count is normal. Platelets are 142 and there is no left shift. I NR is 1.04. Electrolytes reviewed within normal limits. Lipase is 167 which is normal. Urinalysis shows 1+ blood and 3+ esterase. COVID negative. The microbiology reviewed on August 13, she had a shelbie n-catch urine which grew out Morganella. Prior to that and last month, she had Klebsiella and Entero coccus faecalis. Prior to that, she had Enterococcus faecalis and Staph aureus, and a few years back , she has had E coli and Enterococcus faecalis as well. CT of the abdomen and pelvis reviewed with the radiologist, which showed mild acute pancreatitis, a 2 .7 cm pancreatic pseudocyst, left urethral stent in place with mild left hydronephrosis and air in th e bladder could be post instrumentation or secondary to infection. The patient then had a pelvic CT done to look for colovesical fistula. However, patient had contrast in the bladder and they could no t be determined, but the suspicion of the radiologist as low given that sigmoid diverticulitis was no t present. Assessment: 74-year-old female with multiple medical problems, with recurrent urinary tract infectio n, pancreatitis, nephrolithiasis, rule out colovesical fistula. Recommendations: I think, the next step would be to check an abdominal x-ray tomorrow and make sure the patient does not have any more bladder contrast, so we can repeat the pelvic CT to see if there i s a colovesical fistula. In the meantime, the patient needs a PICC line for meropenem for treatment of the Morganella UTI. There is no need for any acute surgical intervention at this point, however, once the patient is discharged she can get a colonoscopy as an outpatient as well and then if she indeed does have a colovesical fistula, she will need surgery, if not it will be medical management. /MODL Voice ID: [id number] Report ID: [id number]
[2020-08-17] MEDS ORDERED: CITALOPRAM 10 MG TABLET PO SCH (11:00)
[2020-08-17] MEDS ORDERED: LIDOCAINE 1% MPF 5 ML VIAL ONE ×2 (20:39→21:15)
[2020-08-18] MEDS: Meropenem 1 GM/100 ML BAG IV SCH ×4 (01:00→16:29)
[2020-08-18] MEDS: HYDROCODONE/APAP 7.5/325 MG TAB PO PRN (04:48)
[2020-08-18] MEDS: NA CHLORIDE 0.9% 1,000 ML IV SCH ×2 (05:16→19:19)
--- NOTE | 2020-08-18 07:47 | P.PN ---
Subjective Date of Service: 08/18/20 Chief Complaint: UTI, resistant, pancreatitis Subjective: Other (Unable to obtain PICC line overnight, difficulty with getting access/threading the guidewire. IV access was obtained, however patient removed it due to pain. Patient states she is not using says she drank anything this morning, agreeable to Port-A-Cath. Otherwise reports symptoms are unchanged) Review of Systems 10-point ROS is otherwise unremarkable Physical Examination - Vital Signs Temperature: 98.0 F Blood Pressure: 163/64 Pulse: 65 Respirations: 18 Pulse Ox (%): 96 Assessment & Plan Physician Review Additional Text: Physical Exam Gen: NAD, AAOx3 HEENT: Normal conjunctiva, sclerae anicteric Pulmonary: Clear auscultation bilaterally, nonlabored respirations on room air CV: Regular rate and rhythm, no murmur Abd: Tenderness to palpation in the epigastric and lower abdomen/suprapubic region, mild distention Integumentary - no rash/lesions Problem List Urinary tract infection, Morganella sensitive to meropenem acute on chronic pancreatitis HTN GERD depression and anxiety -continue IV meropenem for resistant morganella (Cx obtained outpatient). Repeat cultures on admission (blood, urine) without growth -NPO for Port-A-Cath -has no access right now but needs to continue with IV fluids and antibiotics -Discussed with urologist on admission, concern for recto-vesicular fistula with recurrent UTIs , different bacteria each time -unfortunately both CT scans done on day of admission were suboptimal and can't rule out fistula -general surgery consulted for recommendations /guidance on further evaluation. KUB ordered for today and to eval for clearance of contrast from bladder -once contrast is clear, can obtain CT with contrast enema to accurately eval for fistula -continue home meds as appropriate VTE: lovenox (held for Port-A-Cath this morning) Code: full Dispo: anticipate dc home in ~48-72hrs needs IV access, will need meropenem, need to r/o fistula Time Spent Managing Pts Care (In Minutes): 35
[2020-08-18] MEDS: PANTOPRAZOLE 40MG TABLET PO SCH ×2 (09:00→22:51)
[2020-08-18] MEDS: CITALOPRAM 10 MG TABLET PO SCH (09:00)
[2020-08-18] MEDS ORDERED: NS 0.9% VIAL 20 ML ONE (09:22)
[2020-08-18] MEDS ORDERED: NA CIT/CITRIC AC 30 ML ORAL UDC ONE (09:25)
[2020-08-18] MEDS ORDERED: LIDOCAINE 2% MPF 5 ML VIAL ONE (09:29)
[2020-08-18] MEDS ORDERED: propofoL 200 MG/20 ML VIAL IV ONE (09:29)
[2020-08-18] MEDS ORDERED: Phenylephrine HCl 10 MG/ML 1 ML VIAL ONE (09:30)
[2020-08-18] MEDS ORDERED: NA CHLORIDE 0.9% 1,000 ML ONE (09:52)
[2020-08-18] MEDS: LIDOCAINE 1% MPF 30 ML VIAL ONE ×2 (10:01→10:11)
[2020-08-18] MEDS ORDERED: MIDAZOLAM HCL 2 MG/2 ML INJ ONE (10:01)
[2020-08-18] MEDS: HEPARIN 5000 UNIT/ML 1 ML VIAL ONE ×2 (10:12→10:20)
[2020-08-18] MEDS ORDERED: CEFAZOLIN SODIUM 1 GM/VIAL ONE (10:21)
--- NOTE | 2020-08-18 10:25 | P.OP ---
Delinquency Prevention Social Worker: Kelly DOMINGO Preoperative diagnosis: Poor IV Access, UTI Postoperative diagnosis: same Primary procedure: RIJ Portacth, Fluoroscopy Anesthesia: General Estimated blood loss: min Specimen: none Findings: Normal Anatomy Complications: None Transferred to: Recovery Room Condition: Good
[2020-08-18] MEDS ORDERED: dexAMETHasone 10 MG/ML VIAL ONE (10:31)
[2020-08-18] MEDS ORDERED: ONDANSETRON 4 MG/2 ML VIAL ONE (10:31)
--- NOTE | 2020-08-18 10:43 | RAD REPORT ---
EXAM DESCRIPTION: RAD - Abdomen 1 View (KUB) - 08/18/2020 8:13 am CLINICAL HISTORY: Is there contrast in the bladder? Inquiring minds Pain COMPARISON: Abdomen 1 View (KUB) dated 08/16/2020; ABDOMEN 1 VIEW KUB dated 04/23/2014; Pelvis Wo Cont dated 08/16/2020 FINDINGS: A left-sided double-J stent is noted. There appears to be a small volume of contrast still in the urinary bladder. Moderate contrast is present in the colon.
--- NOTE | 2020-08-18 10:49 | RAD REPORT ---
EXAM DESCRIPTION: RAD - Chest Single View - 08/18/2020 10:44 am CLINICAL HISTORY: post port a cath placement Chest pain. COMPARISON: Abdomen 1 View (KUB) dated 08/18/2020; Abdomen 1 View (KUB) dated 08/16/2020; Chest Single View dated 08/16/2020; Chest Single View dated 07/12/2020 FINDINGS: Portable technique limits examination quality. Right-sided port catheter has been placed with its tip in the SVC. No postprocedure pneumothorax.
--- NOTE | 2020-08-18 10:49 | RAD REPORT ---
EXAM DESCRIPTION: RAD - Fluoroscopy <1 Hour - 08/18/2020 10:43 am CLINICAL HISTORY: Venous catheter insertion. PORT A CATH INSERTION IN OR 4 COMPARISON: Cardiac Img R Or S Only dated 11/16/2016 FINDINGS: Fluoroscopic imaging is submitted from placement of a venous catheter. Details of the pro cedure not available. Fluoroscopy time: 0.5 minutes
[2020-08-18] MEDS ORDERED: lisinopriL 10 MG TAB PO SCH (12:00)
--- NOTE | 2020-08-18 14:06 | PN ---
Date of Progress Note: 08/18/2020 Subjective: The patient had an attempt at putting a PICC line on her, was unsuccessful, was attempte d 5 times and now, she does not have a peripheral IV access. She has had multiple admissions recentl y and always had difficulty with IV access. Therefore, we will proceed with placing a Port-A-Cath. The patient understands the risks, benefits, and alternatives and agrees to procedure. As far as her abdominal x-ray, it has been done and the official report is not out, but it appears that there was no contrast in the bladder. Once we get the official report, we will order the CT of the pelvis with rectal contrast to try to rule out colovesical fistula. Objective: Vital Signs: Stable. She is afebrile. Physical exam no changes. Assessment: Recurrent urinary tract infection, rule out colovesical fistula. Poor IV access. Recommendation: Port-A-Cath placement. The patient understands the risks, benefits, and alternative s and agrees to procedure. Continue IV antibiotics. Await CT of the pelvis. /MODL Voice ID: [id number] Report ID: [id number]
[2020-08-18 16:51] LABS: Absolute Lymphocytes (CBC) 0.5 K/uL (0.7-4.9); Basophils % 0.3 % (0-1.3); Hematocrit 34.5 % (36.0-45.0); Lymphocytes % 13.5 % (15.3-44.8); MPV 8.4 fL (7.6-11.3); RBC Red Blood Cell Count 4.35 M/uL (3.86-4.86)
[2020-08-18 17:00] LABS: Magnesium 2.3 mg/dL (1.8-2.4); Phosphorus 1.8 mg/dL (2.5-4.9); Potassium 4.3 mmol/L (3.5-5.1)
[2020-08-18] MEDS: HYDRALAZINE HCL 20 MG/ML VIAL IV PRN (19:18)
--- NOTE | 2020-08-18 20:43 | OP ---
Date of Procedure: 08/18/2020 Surgeon: Mayito West MD Breeding Technician: CHAYO Rider. Preoperative Diagnoses: Poor intravenous access, urinary tract infection. Postoperative Diagnoses: Poor intravenous access, urinary tract infection. Procedure: Right IJ Port-A-Cath device and interpretation of fluoroscopy. Estimated Blood Loss: Minimal. Specimen: None. Findings: Normal anatomy. Anesthesia: General. Complications: None. Disposition: The patient tolerated the procedure in stable condition, taken to Recovery in good gene ral condition. Procedure In Detail: The patient was brought to the OR and placed in supine position. General anest hesia was begun. The patient was prepped and draped in the usual sterile fashion. Marcaine 0.5% was infiltrated locally. An 18-gauge needle was used to access the right IJ vein. Guidewire passed, po sition confirmed with fluoroscopy at 3 cm. Counter incision made, pocket created, and then tunneling device was used to tunnel the catheter between the 2 wounds. Seldinger technique used and tip of th e catheter placed in the SVC and right atrial junction, and attached to the Port-A-Cath device. Port -A-Cath device attached to subcutaneous tissue with 3-0 Vicryl. Then, Port-A-Cath device flushed wit h heparin and packed with heparin with good blood flow. Then, 3-0 chromic was used to approximate ceron bcutaneous tissue and close the skin. Sterile dressing was applied. The patient awakened and taken to Recovery in good general condition. Chest x-ray has been ordered. DOT/MARIA G Voice ID: [id number] Report ID: [id number]
[2020-08-18] MEDS: MORPHINE 4 MG/ML SYR IV PRN (23:00)
[2020-08-19] MEDS: Meropenem 1 GM/100 ML BAG IV SCH ×3 (00:55→16:31)
[2020-08-19 07:05] LABS: Absolute Lymphocytes (CBC) 0.7 K/uL (0.7-4.9); Basophils % 0.1 % (0-1.3); Hematocrit 29.6 % (36.0-45.0); Lymphocytes % 12.5 % (15.3-44.8); MPV 8.5 fL (7.6-11.3)
[2020-08-19 07:22] LABS: Magnesium 2.2 mg/dL (1.8-2.4); Phosphorus 1.8 mg/dL (2.5-4.9)
[2020-08-19 07:23] LABS: BUN Blood Urea Nitrogen 4 mg/dL (7-18); Bicarbonate 29 mmol/L (21-32); Glucose Level 171 mg/dL (74-106); Potassium 4.2 mmol/L (3.5-5.1); Sodium Level 141 mmol/L (136-145)
[2020-08-19 07:24] LABS: ALT/SGPT 16 U/L (12-78); AST/SGOT 12 U/L (15-37); Albumin 2.6 g/dL (3.4-5.0); Alkaline Phosphatase 76 U/L (45-117); Bilirubin Total 0.4 mg/dL (0.2-1.0); Lipase 87 U/L (73-393); Protein, Total 6.6 g/dL (6.4-8.2)
--- NOTE | 2020-08-19 08:11 | P.PN ---
Subjective Date of Service: 08/19/20 Chief Complaint: UTI, resistant, pancreatitis Subjective: No new changes (reports epigastric and lower abd pain mostly unchanged. slight nausea at times, prefers full liquids. Port-A-Cath placed yesterday) Review of Systems 10-point ROS is otherwise unremarkable Physical Examination - Vital Signs Temperature: 97.8 F Blood Pressure: 150/62 Pulse: 55 Respirations: 18 Pulse Ox (%): 96 - Studies Microbiology Data (last 24 hrs): 08/16/20 04:45 Clean Catch Urine Peach Bottom Count - Final BETWEEN 10,000 & 100,000 CFU/ML 08/16/20 04:45 Clean Catch Urine - Final MIXED MICHELLE. Assessment & Plan Physician Review Additional Text: Physical Exam Gen: NAD, AAOx3 HEENT: Normal conjunctiva, sclerae anicteric Pulmonary: Clear auscultation bilaterally, nonlabored respirations on room air CV: Regular rate and rhythm, no murmur Abd: Tenderness to palpation in the epigastric and lower abdomen/suprapubic region, mild distention Integumentary - no rash/lesions Problem List Urinary tract infection, Morganella sensitive to meropenem acute on chronic pancreatitis HTN GERD depression and anxiety -continue IV meropenem for resistant morganella (Cx obtained outpatient). Repeat cultures on admission (blood, urine) without growth -Port-A-Cath placed on 08/18 -general surgery consulted for recommendations /guidance on further evaluation -KUB yesterday with contrast in the bladder. Repeat KUB ordered for this morning, will obtain a repeat CT with contrast enema to rule out fistula if no contrast in the bladder today -Discussed with urologist on admission, concern for recto-vesicular fistula with recurrent UTIs , different bacteria each time, and each more resistant than the prior -unfortunately both CT scans done on day of admission were suboptimal and can't rule out fistula -continue home meds as appropriate VTE: lovenox Code: full Dispo: anticipate dc home in ~48hrs will need merrem on dc, need to r/o fistula, pain control Time Spent Managing Pts Care (In Minutes): 40
[2020-08-19] MEDS: ENOXAPARIN 40 MG/0.4 ML SQ SCH (09:00)
--- NOTE | 2020-08-19 09:48 | RAD REPORT ---
EXAM DESCRIPTION: RAD - Abdomen 1 View (KUB) - 08/19/2020 9:24 am CLINICAL HISTORY: eval if contrast still in bladder Pain COMPARISON: Abdomen 1 View (KUB) dated 08/18/2020; Abdomen 1 View (KUB) dated 08/16/2020; ABDOMEN 1 EW KUB dated 04/23/2014 FINDINGS: Contrast is present in the colon. Left-sided double-J stent is noted without significant c hange in position. Left-sided renal calculi are noted. There is no evidence of significant contrast w ithin the urinary bladder on plain radiograph.
[2020-08-19] MEDS: POTASS/SODIUM PHOSPHATE 1 PKT POWD.PACK PO SCH ×3 (10:00→11:50)
[2020-08-19] MEDS: PANTOPRAZOLE 40MG TABLET PO SCH ×2 (10:01→20:19)
[2020-08-19] MEDS: CITALOPRAM 10 MG TABLET PO SCH (10:01)
[2020-08-19] MEDS: lisinopriL 10 MG TAB PO SCH (10:01)
--- NOTE | 2020-08-19 10:50 | PN ---
Date of Progress Note: 08/19/2020 Subjective: The patient is awake, alert. No new complaints. A little bit of abdominal pain. No na usea or vomiting. Objective: Vital signs are stable, afebrile. Laboratory Data: Abdominal x-ray is pending. Assessment: Recurrent urinary tract infection, rule out colovesical fistula, status post Port-A-Cath placement. Recommendation: We will check the x-ray after it is done to make sure the patient does not have any contrast in the bladder. Then proceed with pelvis CT with regard to contrast to rule out colovesical fistula. Discharge planning, the patient will need a colonoscopy as an outpatient. Dr. Lacey wi ll follow this patient over the next couple of days while I am out of town. Plan of care was discuss ed in detail with Dr. Prater. DOT/MARIA G Voice ID: [id number] Report ID: [id number]
[2020-08-19] MEDS: HYDRALAZINE HCL 20 MG/ML VIAL IV PRN (11:51)
--- NOTE | 2020-08-19 13:41 | RAD REPORT ---
EXAM DESCRIPTION: CT - Abdomen Pelvis Wo Contrast - 08/19/2020 1:23 pm CLINICAL HISTORY: eval for colo/recto-vesical fistula COMPARISON: Abdomen Pelvis W Contrast dated 08/16/2020 TECHNIQUE: Axial [address] imaging of the abdomen and pelvis was performed without IV contrast. No IV contrast was given because of allergy, abnormal renal function, patient refusal or physician re quest. Imaging was performed in left lateral decubitus positioning. GI contrast is administered. All CT scans are performed using dose optimization technique as appropriate and may include automated exposure control or mA/KV adjustment according to patient size. FINDINGS: No suspicious findings in the lung bases. The liver, spleen and pancreas show no new findings on non-contrast imaging. Gallbladder is absent. P neumobilia again noted. No right-sided hydronephrosis or hydroureter. No new right renal or ureteral finding. Pigtail stent r emains in place in the left collecting system. Stent is well positioned. Contracted urinary bladder s hows no evidence of contrast. No new adrenal finding. Isodense renal masses and pyelonephritis cannot be excluded in the absence of IV contrast. Rectosigmoid colon is well filled but not dilated by the intraluminal contrast material. Patient has extensive sigmoid diverticulosis without diverticulitis. The remainder of the colon is also well fill ed but not dilated by stool and contrast. Cecum is not opacified. All GI contrast is retained within the lumen of the colon. No enterovesical or enterovaginal fistula can be demonstrated. No free air, free fluid or inflammatory stranding. No new mass or lymphadenopathy. No new bone finding. IMPRESSION: The rectosigmoid colon is well filled with contrast material. No enterovesical or entero vaginal fistula is identifiable. No new or GI process identifiable. Full assessment is limited is the absence of IV contrast.
[2020-08-19] MEDS: NA CHLORIDE 0.9% 1,000 ML IV SCH ×2 (14:00→20:20)
[2020-08-20] MEDS: Meropenem 1 GM/100 ML BAG IV SCH ×3 (00:14→17:03)
[2020-08-20 06:30] LABS: Absolute Lymphocytes (CBC) 1.4 K/uL (0.7-4.9); Basophils % 0.5 % (0-1.3); Hematocrit 31.6 % (36.0-45.0); Lymphocytes % 21.9 % (15.3-44.8); MPV 8.1 fL (7.6-11.3); RBC Red Blood Cell Count 4.01 M/uL (3.86-4.86)
[2020-08-20 06:42] LABS: Albumin 3.3 g/dL (3.4-5.0); Magnesium 2.1 mg/dL (1.8-2.4); Phosphorus 1.9 mg/dL (2.5-4.9); Potassium 3.6 mmol/L (3.5-5.1)
[2020-08-20] MEDS: HYDRALAZINE HCL 20 MG/ML VIAL IV PRN (08:18)
[2020-08-20] MEDS: ONDANSETRON 4 MG/2 ML VIAL IV PRN (08:25)
[2020-08-20] MEDS: ENOXAPARIN 40 MG/0.4 ML SQ SCH (08:25)
[2020-08-20] MEDS: CITALOPRAM 10 MG TABLET PO SCH (08:26)
[2020-08-20] MEDS: PANTOPRAZOLE 40MG TABLET PO SCH ×2 (08:26→21:32)
[2020-08-20] MEDS: lisinopriL 10 MG TAB PO SCH (08:49)
[2020-08-20] MEDS ORDERED: POTASSIUM CL SA 10 MEQ TAB PO ONE (09:00)
[2020-08-20] MEDS ORDERED: POTASSIUM PHOS 20 MEQ in NA CHLORIDE 0.9% 250 ML IV ONE (09:00)
--- NOTE | 2020-08-20 17:51 | P.PN ---
Subjective Date of Service: 08/20/20 Chief Complaint: UTI, resistant, pancreatitis Patient complaining of diarrhea and increased urinary frequency. Physical Examination - Vital Signs Temperature: 98.1 F Blood Pressure: 162/79 Pulse: 67 Respirations: 16 Pulse Ox (%): 95 - Physical Exam General: Alert, In no apparent distress, Oriented x3 HEENT: Mucous membr. moist/pink Neck: JVD not distended Respiratory: Clear to auscultation bilaterally, Normal air movement Cardiovascular: No edema, Regular rate/rhythm, Normal S1 S2 Gastrointestinal: Soft and benign, Non-distended, No tenderness Musculoskeletal: No swelling, No tenderness Integumentary: No rashes Neurological: Normal strength at 5/5 x4 extr Assessment And Plan Physician Review Additional Text: Physical Exam Gen: NAD, AAOx3 HEENT: Normal conjunctiva, sclerae anicteric Pulmonary: Clear auscultation bilaterally, nonlabored respirations on room air CV: Regular rate and rhythm, no murmur Abd: Tenderness to palpation in the epigastric and lower abdomen/suprapubic region, mild distention Integumentary - no rash/lesions Problem List Urinary tract infection, Morganella sensitive to meropenem acute on chronic pancreatitis HTN GERD depression and anxiety -continue IV meropenem for resistant morganella (Cx obtained outpatient). Urine culture shows mixed growth. Blood cultures: No growth. -CT abdomen with contrast enema shows no fistula -Port-A-Cath placed on 08/18 -Diocussed with Dr. Martines, [facility] urology for possible transfer for stent removal given the recurrent UTI. Dr. Martines recommended to continue UTI treatment and follow up with Dr. Palacios for stent removal after the UTI has been adequately treated. -continue home meds as appropriate VTE: lovenox Code: full
[2020-08-21] MEDS: Meropenem 1 GM/100 ML BAG IV SCH ×3 (00:28→17:46)
[2020-08-21] MEDS ORDERED: POTASSIUM CL SA 10 MEQ TAB PO ONE (07:00)
[2020-08-21] MEDS: ENOXAPARIN 40 MG/0.4 ML SQ SCH (09:39)
[2020-08-21] MEDS: CITALOPRAM 10 MG TABLET PO SCH (09:40)
[2020-08-21] MEDS: PANTOPRAZOLE 40MG TABLET PO SCH ×2 (09:40→20:45)
[2020-08-21] MEDS: lisinopriL 10 MG TAB PO SCH (09:40)
[2020-08-21] MEDS: HYDROCODONE/APAP 7.5/325 MG TAB PO PRN (09:41)
--- NOTE | 2020-08-21 15:20 | P.PN ---
Subjective Date of Service: 08/21/20 Chief Complaint: UTI, resistant, pancreatitis Patient complaining of abdominal discomfort. Patient still with increased urinary frequency. Her stool is more formed today. Physical Examination - Vital Signs Temperature: 97.4 F Blood Pressure: 213/99 Pulse: 80 Respirations: 18 Pulse Ox (%): 95 - Physical Exam General: Alert, In no apparent distress, Oriented x3 HEENT: Mucous membr. moist/pink Neck: Supple, JVD not distended Respiratory: Clear to auscultation bilaterally, Normal air movement Cardiovascular: No edema, Regular rate/rhythm, Normal S1 S2 Gastrointestinal: Normal bowel sounds, Soft and benign, Non-distended, No tenderness Musculoskeletal: No swelling, No tenderness Integumentary: No rashes, No erythema Neurological: Normal speech, Normal strength at 5/5 x4 extr Assessment And Plan Physician Review Additional Text: Problem List Urinary tract infection, Morganella sensitive to meropenem acute on chronic pancreatitis HTN GERD depression and anxiety -continue IV meropenem for resistant morganella (Cx obtained outpatient). Urine culture shows mixed growth. Blood cultures: No growth. -CT abdomen with contrast enema shows no fistula -Port-A-Cath placed on 08/18 -Diocussed with Dr. Martines, [facility] urology for possible transfer for stent removal given the recurrent UTI. Dr. Martines recommended to continue UTI treatment and follow up with Dr. Palacios for stent removal after the UTI has been adequately treated. Also discussed case with Dr. Garcia recommend to continue antibiotics and follow up with him in the office within 2 weeks. -continue home meds as appropriate. -patient plan for a total of 3 weeks of antibiotics( Invanz with home health) VTE: lovenox Code: full
[2020-08-22] MEDS: Meropenem 1 GM/100 ML BAG IV SCH ×2 (00:50→08:53)
[2020-08-22 05:57] LABS: Absolute Lymphocytes (CBC) 1.2 K/uL (0.7-4.9); Basophils % 0.5 % (0-1.3); Hematocrit 32.3 % (36.0-45.0); Lymphocytes % 24.4 % (15.3-44.8); MPV 8.1 fL (7.6-11.3)
[2020-08-22] MEDS: HYDROCODONE/APAP 7.5/325 MG TAB PO PRN (08:53)
[2020-08-22] MEDS: HYDRALAZINE HCL 20 MG/ML VIAL IV PRN (08:53)
[2020-08-22] MEDS: ENOXAPARIN 40 MG/0.4 ML SQ SCH (08:54)
[2020-08-22] MEDS: POTASS/SODIUM PHOSPHATE 1 PKT POWD.PACK PO SCH ×3 (08:54→12:00)
[2020-08-22] MEDS: PANTOPRAZOLE 40MG TABLET PO SCH (08:54)
[2020-08-22] MEDS: ONDANSETRON 4 MG/2 ML VIAL IV PRN (08:54)
[2020-08-22] MEDS: CITALOPRAM 10 MG TABLET PO SCH (08:54)
[2020-08-22] MEDS ORDERED: ERTAPENEM SODIUM 1 GM VIAL IVPB ONE (09:09)
[2020-08-22 09:17] VITALS: O2SAT 96
[2020-08-22] MEDS ORDERED: ERTAPENEM NA 1 GM in NA CHLORIDE 0.9% 100 ML IVPB ONE (10:00)
[2020-08-22] MEDS: lisinopriL 10 MG TAB PO SCH (11:15)
[2020-08-22 11:27] VITALS: BP 157/69
[2020-08-22] MEDS: MORPHINE 4 MG/ML SYR IV PRN (11:59)
[2020-08-22 12:07] VITALS: TEMP 97.9
[2020-08-22 12:19] LABS: C.diff Antigen/Toxin Ag neg : Tox neg (NEG : NEG)
--- NOTE | 2020-08-22 14:42 | P.DS ---
Admission Date: 08/16/20 Discharge Date: 08/22/20 Disposition: [place] HOME/HOME HEALTH CARE Discharge Condition: FAIR Reason for Admission: UTI, resistant, pancreatitis Consultations: Surgery-Dr. West Procedures: Port-A-Cath placement. Brief History of Present Illness: 74-year-old woman with a history of hypertension and dyslipidemia chronic pancreatitis, GERD, depression and anxiety, history of recurrent urinary tract infection history of nephrolithiasis status post left urethral stent was directed to the emergency department by her urologist Dr. Garcia due to another episode of UTI with a concern for rectovesical fistula. CT scan done in the emergency department was nondiagnostic for fistula due to contrast already in the bladder from a previous CT. CT scan demonstrated mild acute pancreatitis. Patient completed 2 weeks therapy of meropenem for resistant Morganella UTI. She was started on IV meropenem and admitted for further management. Hospital Course: Discharge Diagnosis Urinary tract infection, Morganella sensitive to meropenem acute on chronic pancreatitis Ureteral stent HTN GERD depression and anxiety Patient admitted to the medical floor and started on IV meropenem for UTI -continue IV meropenem for resistant morganella (Cx obtained outpatient). Urine culture showed mixed growth. Blood cultures: No growth. -repeat CT abdomen with contrast enema showed no fistula -Port-A-Cath placed on 08/18 for outpatient IV antibiotics. PICC line placement was unsuccessful -considered the option of transferring patient for stent removal. Discussed case with Dr. Martines, [facility] urology for possible transfer for stent removal given the recurrent UTI. Dr. Martines recommended to continue UTI treatment and follow up with Dr. Palacios for stent removal after the UTI has been adequately treated. Also discussed case with Dr. Garcia who also recommended to continue antibiotics and follow up with him in the office within 2 weeks. -continued home meds during the hospital stay. -patient was complaining of abdominal pain and loose stools. His stool was formed when examined. Stool for C. diff negative and fecal leukocyte negative indicating infection is unlikely. Her abdominal symptoms likely related to her chronic pancreatitis. Patient placed on probiotic as prophylaxis for C. diff. -she was complaining of increased urinary frequency. -she is discharged with Invanz IV to complete 3 weeks of treatment. -also prescribed fluconazole to cover for yeast. -she will follow with Dr. Garcia in the office within 2 weeks. Vital Signs/Physical Exam: Temp Pulse Resp BP Pulse Ox 97.9 F 82 18 157/69 H 97 08/22/20 12:00 08/22/20 12:00 08/22/20 12:00 08/22/20 12:00 08/22/20 12:00 General: Alert, In no apparent distress, Oriented x3 HEENT: Mucous membr. moist/pink Neck: Supple, JVD not distended Respiratory: Clear to auscultation bilaterally, Normal air movement Cardiovascular: No edema, Regular rate/rhythm, Normal S1 S2 Gastrointestinal: Normal bowel sounds, Soft and benign, Non-distended, No tenderness Musculoskeletal: No swelling Integumentary: No rashes Neurological: Normal strength at 5/5 x4 extr Laboratory Data at Discharge: WBC 5.10 K/uL (4.3-10.9) D 08/22/20 05:30 Hgb 10.5 g/dL (12.0-15.0) L 08/22/20 05:30 Hct 32.3 % (36.0-45.0) L 08/22/20 05:30 Plt Count 180 K/uL (152-406) 08/22/20 05:30 PT 12.0 SECONDS (9.5-12.5) 08/16/20 04:10 INR 1.04 08/16/20 04:10 Sodium Cancelled 08/22/20 10:21 Potassium Cancelled 08/22/20 10:21 BUN Cancelled 08/22/20 10:21 Creatinine Cancelled 08/22/20 10:21 Glucose Cancelled 08/22/20 10:21 Phosphorus 2.4 mg/dL (2.5-4.9) L 08/22/20 05:30 Magnesium 2.1 mg/dL (1.8-2.4) 08/20/20 06:15 Total Bilirubin 0.4 mg/dL (0.2-1.0) 08/19/20 06:22 AST 12 U/L (15-37) L 08/19/20 06:22 ALT 16 U/L (12-78) 08/19/20 06:22 Alkaline Phosphatase 76 U/L (45-117) 08/19/20 06:22 Lipase 87 U/L (73-393) 08/19/20 06:22 Home Medications: Citalopram Hydrobromide [Celexa] 1 tab PO DAILY 03/24/20 Famotidine [Pepcid*] 20 mg PO DAILY 08/16/20 Metformin HCl 500 mg PO DAILY 08/16/20 Pantoprazole [Protonix Tab*] 40 mg PO BID 08/16/20 Ertapenem Sodium [Invanz] 1 gm IV DAILY #15 vial 08/22/20 Fluconazole 200 mg PO DAILY #14 tablet 08/22/20 New Medications: Fluconazole 200 mg PO DAILY #14 tablet Ertapenem Sodium [Invanz] 1 gm IV DAILY #15 vial Physician Discharge Instructions: PROBLEM: Urinary tract infection, pancreatitis GOAL: Clear understanding of disease process INSTRUCTIONS: Diet: diabetic Activity: As tolerated If you have any questions regarding your stay call [phone] If your symptoms worsen call 911 or go to the ED. If you have any questions regarding your antibiotics or Port a cath [facility] health: [phone] Options care for antibiotics: [phone] Diet: ADA Activity: Ad ange Followup: NONE,NONE [Primary Care Provider] - Time spent managing pt's care (in minutes): 40
== END 2020-08-22 16:32 | disposition home health service (06) | DRG 689 ==
LOC: ER 03:51 → ERHOLD 14:53 → 2ND 15:52
PROVIDERS: ADMIT Hospitalist; ATTEND Internal Medicine
PROC: B5181ZA Fluoroscopy of Superior Vena Cava using Low Osmolar Contrast, Guidance (ICD-10-PCS; 2020-08-18)
PROC: 02HV33Z Insertion of Infusion Device into Superior Vena Cava, Percutaneous Approach (ICD-10-PCS; principal; 2020-08-18 09:00)
DX: N39.0 Urinary tract infection, site not specified (principal); K85.90 Acute pancreatitis without necrosis or infection, unspecified; K86.3 Pseudocyst of pancreas; Z16.29 Resistance to other single specified antibiotic; K86.1 Other chronic pancreatitis; K21.9 Gastro-esophageal reflux disease without esophagitis; F32.9 Major depressive disorder, single episode, unspecified; F41.9 Anxiety disorder, unspecified; E78.5 Hyperlipidemia, unspecified; N20.0 Calculus of kidney; I10 Essential (primary) hypertension; Z79.84 Long term (current) use of oral hypoglycemic drugs; Z79.899 Other long term (current) drug therapy; Z90.710 Acquired absence of both cervix and uterus; Z90.49 Acquired absence of other specified parts of digestive tract; Z20.822 Contact with and (suspected) exposure to COVID-19
CPT/HCPCS: 36415; 51702; 71045; 72192; 74018; 74176; 74177; 76000; 80048; 80053; 80069; 80076; 81003; 83690; 83735; 83880; 84100; 84132; 84484; 85025; 85610; 87040; 87086; 87088; 87324; 87449; 89055; 93005; 94760; 99285; C1788; J0360; J0690; J1100; J1335; J1644; J1650; J2185; J2250; J2370; J2405; J2704; J7030; J7050; Q9967; U0003

== ENCOUNTER 2020-09-10 09:20 | Day surgery (SDC) | payer OTHER ==
[2020-09-10] MEDS ORDERED: Ringers Lactate 1,000 ML IV ONE (12:46)
[2020-09-10] MEDS ORDERED: CEFAZOLIN/SWI 2gm 2 GM/20 ML SYR ONE (12:46)
[2020-09-10] MEDS ORDERED: CODEINE 30MG/APAP 300MG TAB PO PRN (13:29)
[2020-09-10] MEDS ORDERED: propofoL 200 MG/20 ML VIAL IV ONE (13:53)
[2020-09-10] MEDS ORDERED: dexAMETHasone 10 MG/ML VIAL ONE (13:54)
[2020-09-10] MEDS ORDERED: MIDAZOLAM HCL 2 MG/2 ML INJ ONE (13:54)
[2020-09-10] MEDS ORDERED: FENTANYL CITR 100 MCG/2 ML ONE (13:54)
[2020-09-10] MEDS ORDERED: ONDANSETRON 4 MG/2 ML VIAL ONE (13:54)
[2020-09-10] MEDS ORDERED: LIDOCAINE 2% MPF 5 ML VIAL ONE (13:54)
[2020-09-10] MEDS ORDERED: AMPICILLIN SODIUM 2 GM in NA CHLORIDE 0.9% 100 ML IVPB SCH (15:00)
[2020-09-10] MEDS: HYDROMORPHONE HCL 1 MG/ML INJ ONE ×2 (15:30→15:35)
[2020-09-10 15:45] VITALS: TEMP 97.3
[2020-09-10 15:56] VITALS: BP 159/69; O2SAT 96
[2020-09-10] MEDS ORDERED: HEPARIN 500 UNIT/5 ML SYR IV ONE (16:45)
--- NOTE | 2020-09-10 22:33 | OP ---
Date of Procedure: 09/10/2020 Surgeon: RAUL SHAIKH Preoperative Diagnosis: Left nephrolithiasis. Postoperative Diagnosis: Left nephrolithiasis-10 mm calculus and 6.6 mm calculus in the left lower p ole. Procedure: Left extracorporeal shock wave lithotripsy. Indication For Procedure: Ms. Bettencourt is a 74-year-old woman, well known to me with recurrent urinary tract infections of uncertain origin. She initially grew Enterococcus as well as Klebsiella, which w as found not only within her intravesical urine, but also on direct renal aspirate associated with ur eteroscopy and laser lithotripsy performed to try to rid her of the nephrolithiasis, which was presum ed to be the source of her persistent infection. Instead, after the initial ureteroscopic interventi on with stent being placed, the patient returned in the interim with a complicated Morganella infecti on resistant to all oral and IV antimicrobials with the exception of meropenem. As this was very unu sual and a different organism than what she had previously grown, a CT scan with rectal contrast was performed to assess for enterovesical or enterovaginal fistula. Unfortunately, no fistula could be d emonstrated; so I planned to remove the stent while she was yet being treated with the ertapenem, whi ch was done last week. The patient thus presents today for shock wave lithotripsy to complete fragme ntation of the left lower pole calculi, which were inaccessible ureteroscopically on the prior interv ention. Procedure In Detail: The patient was consented in the preoperative holding area before being transfe rred to the operative suite where general anesthesia was induced. She was given Ancef 1 g and ampici llin 2 g IV antimicrobial prophylaxis. Pneumoboots was provided for DVT prophylaxis. She was placed supine on the shock wave lithotripsy table with a water bath beneath her flank. The stones were vis ible fluoroscopically and the more anterior of the 2 calculi that was approximately 10 mm was targete d first. Ramping up from a power setting of 1.0 to 7.0 over the course of 500 shocks, the initial st one the larger of the 2 was targeted. After it did seem to fragment and a cloud of dust was remnant, we then retargeted the second more inferior calculus, which was within the cloud of dust seen. This was similarly targeted for an additional 1500 shocks for a total of 3000 shocks delivered. In the e nd, no formed calculus was seen and only what appeared to be a cloud of dust. The patient tolerated the procedure well and was awakened from general anesthesia, transferred to a stretcher, and then tra nsferred to the recovery room in good condition. Complications: None. Discharge Disposition: We will ask her to follow up in the Urology Clinic with nurse practitioner, Abel jim within the next few weeks with a KUB obtained pre-clinic and order has already been sent. If successful fragmentation and dissolutionment of the stones have occurred, we will allow the patient a couple of weeks from the date of surgery off any antimicrobial and then perform a straight catheter urine culture assessment to see if there is any persistence of infection after the stone has been ca red for. Meanwhile, the patient has been placed on intravaginal estrogen therapy 3 times a week to t ry to restore the normal vaginal blaine and prevent subsequent infections via the fecal vaginal route. The patient does have an issue with significant diarrhea and loose stools as well as fecal incontin ence in addition to the urinary incontinence, which may be contributory. Prior assessments of her po stvoid residual have also been unremarkable. The straight-cathed PVR will confirm the adequacy of he r emptying. Should persistent infection be found, consideration should be given to arranging for the patient to do a Poppy seed test and strain her urine to see if any Poppy seeds show up in the urine, which would be indicative of a fistula perhaps missed on the CT scan even though done with rectal co ntrast. Should there be failure to have completely fragmented the left renal calculi, we will have t o consider additional therapy of that. Subsequently, she should undergo a metabolic stone profile as sessment via Litholink, but this should be performed no sooner than 1 month after the shock wave lithotripsy today. WR/MODL Voice ID: [id number] Report ID: [id number]
== END 2020-09-10 17:05 | disposition home or self-care (01) ==
LOC: OR 09:20
PROVIDERS: ATTEND Urology
PROC: 0TF7XZZ Fragmentation in Left Ureter, External Approach (ICD-10-PCS; principal; 2020-09-10 13:30)
DX: N20.0 Calculus of kidney (principal); I10 Essential (primary) hypertension; K21.9 Gastro-esophageal reflux disease without esophagitis; K85.90 Acute pancreatitis without necrosis or infection, unspecified
CPT/HCPCS: 50590; J0290; J0690; J1100; J1170; J1642; J2250; J2405; J2704; J3010; J7120

== ENCOUNTER 2020-09-20 12:32 | Observation (INO) | payer OTHER ==
--- OUTSIDE RECORDS SUMMARY | 2020-09-20 12:36 | XMS REPORT | Continuity of Care Document ---
:1945 Author Organization [facility] t Address [address] [place] [address] Care Team Providers Name Role Phone Angelo Powell DO Primary Care Physician [facility] Attending Clinician Unavailable [facility] Admitting Clinician Unavailable Problems Condition Condition Condition Status Onset Resolution Last Treating Co mments Source Name Details Category Date Date Treatment Clinician Date Acute Acute Disease Active [facility] pancreatit pancreatit 11-09 Mansi kes - is is 00:00: Medical 00 [place] Essential Essential Disease Active [facility] hypertensi hypertensi 11-09 Mansi kes - on on 00:00: Medical 00 [place] 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 11-09 Luke s - 00:00: Medical [address] [place] [address] Allergies, Adverse Reactions, Alerts This patient has no known allergies or adverse reactions. Social History Social Habit Start Date Stop Date Quantity Comments Source History [facility] - Alcohol Std Drinks Medica l Center History [facility] - Alcohol Binge Medical Carl ter Sex Assigned At [facility] kes [facility] Tobacco use and 2018-11-09 2018-11-09 Never used [facility] St Nazario kes - exposure 00:00:00 00:00:00 Medical [place] Alcohol intake 2018-11-09 2018-11-09 [facility]00 non-drinker of Medical Ce nter alcohol (finding) History [facility] 2018-11-09 2018-11-[address] [facility] - [...] times Center tablet daily . lipase-prot Yes [id number]{ Take [facility] ease-amylas 9-06 lipase} 36,000 [...] Clotrimazol Dmitry [address] [facility] [facility] e 10-12 Powell applicatio [employer] - 00:00 n to Memoria :00 affected l area Outpati ent Clinics Procedures This patient has no known procedures. Plan of Care Planned Activity Planned Date Details Comments Source Future Scheduled 2020-11-[address] [facility] - Test 00:00:00 (Season Ended) [code = Medic al Center INFLUENZA VACCINE (Season Ended)] Future Scheduled 2020-03-[address] [facility] - Test 00:00:00 (12+) [code = Medical Center DEPRESSION SCREENING (12+)] Future Scheduled 2013-12-[address] [facility] - Test 00:00:00 WELLNESS (YEAR 2 or Medical Center FIRST YEAR if no IPPE) [code = MEDICARE ANNUAL WELLNESS (YEAR 2 or FIRST YEAR if no IPPE)] Future Scheduled 2012-12-28 PNEUMOCOCCAL 65+ YRS [facility] - Test 00:00:00 (1 of 1 - Medical Center [id number]) [code = PNEUMOCOCCAL 65+ YRS (1 of 1 - [id number] PCV13)] Future Scheduled 1997-12-28 SHINGLES VACCINES (1 [...] HEPATITIS C Medical Center SCREENING] Future Scheduled 1959 COVID-19 VACCINE (1) [facility] - Test 00:00:00 [code = COVID-[address] VACCINE (1)] Future Scheduled [address] [facility] - Test 00:00:00 malignant neoplasm of Medica l Center breast (procedure) [code = 231401670] Future Scheduled [address] [facility] - Test 00:00:00 malignant neoplasm of Medica l Center colon (procedure) [code = 697668198] Encounters Start End Encounter Admission Attending Care Care Encounter Source Date/Time Date/Time Type Type Clinicians Facility Department ID 2020-09-04 2020-09-04 Outpatient [facility] [id number] [facility] 2020-09-04 2020-09-04 Out[facility] [id number] [facility] 2020-09-04 2020-09-04 Out[facility] [id number] [facility] 2020-09-03 2020-09-03 Outpatient [facility] [id number] [facility] 2020-08-27 2020-08-27 Outpatient [facility] [id number] [facility] 2020-08-15 2020-08-15 Outpatient [facility] [id number] [facility] 2020-08-14 2020-08-14 Outpatient [facility] [id number] [facility] 2020-08-01 2020-08-01 Outpatient [facility] [id number] [facility] 2020-07-24 2020-07-24 Outpatient [facility] [id number] [facility] 2020-07-16 2020-07-16 Outpatient [facility] [id number] [facility] 2020-07-16 2020-07-16 Outpatient [facility] [id number] [facility] 2020-07-10 2020-07-10 Outpatient [facility] [id number] [facility] 2020-07-05 2020-07-05 Outpatient [facility] [id number] [facility] 2020-06-27 2020-06-27 Outpatient [facility] [id number] [facility] 2020-06-24 2020-06-24 Outpatient [facility] [id number] [facility] 2020-06-19 2020-06-19 Outpatient [facility] [id number] [facility] 2020-05-20 2020-05-20 Outpatient [facility] [id number] [facility] 2020-05-14 2020-05-14 Outpatient [facility] [id number] [facility] 2020-04-19 2020-04-19 Outpatient [facility] [id number] [facility] 2020-04-16 2020-04-16 Outpatient [facility] [id number] [facility] 2019-09-29 2019-09-29 [facility] [id number] 13:46:00 13:46:[address] [facility] [address] [facility] Medicine l Medicine Outpati ent Clinics 2019-09-28 2019-09-28 [facility] [id number] 11:00:00 11:00:00 [facility] [place] [facility] Medicine l Medicine Outpati ent Clinics 2019-09-28 2019-09-28 [facility] [id number] 10:30:00 10:30:00 t [place] [facility] - [facility] Medicine l Medicine Outpati ent Clinics 2019-07-14 2019-07-14 [facility] [id number] 10:31:[facility] 10:31:[address] [facility] - [address] [facility] Medicine l Medicine Outpati ent Clinics 2018-12-15 2018-12-15 [facility] [id number] 16:00:00 16:00:[address] Luke s - [address] [facility] Medicine l Medicine Outpati ent Clinics 2018-09-14 2018-09-14 [facility] [id number] 15:45:00 15:45:[address] Luke [facility] - [address] [facility] Medicine l Medicine Outpati ent Clinics 2018-08-30 2018-08-30 [facility] [id number] 08:00:00 08:00:[address] Luke s - Drive [facility] Medicine l Medicine Outpati ent Clinics 2018-06-10 2018-06-10 [facility] [id number] 16:46:00 16:46:00 [place] [employer] Luke s - Drive [facility] Medicine l Medicine Outpati ent Clinics 2018-06-09 2018-06-09 [facility] [id number] 09:18:00 09:18:00 t [facility] Lu s - Road [facility] Medicine l Medicine Outpati ent Clinics 2018-06-07 2018-06-07 [facility] [id number] 15:00:00 15:00:00 [place] [employer] Luke s - Drive [facility] Medicine l Medicine Outpati ent Clinics 2018-04-25 2018-04-25 [facility] [id number] 09:15:00 09:15:[address] [facility] - Drive [facility] Medicine l Medicine Outpati ent Clinics 2018-03-09 2018-03-09 [facility] [id number] 16:00:00 16:00:[address] Luke s - Drive [facility] Medicine l Medicine Outpati ent Clinics 2018-03-03 2018-03-03 [facility] [id number] 08:52:00 08:52:[address] Luke s - Drive [facility] Medicine l Medicine Outpati ent Clinics 2017-11-30 2017-11-30 Outpatient Jaswinder [facility] [id number] 15:00:00 15:00:00 t [facility] ent Clinics 2017-09-30 2017-09-30 Outpatient Jaswinder Parham [id number] 15:00:00 15:00:00 t Specialty/U Mansi kes - Specialty rology [facility] a /Urology Clinic l Clinic [facility] ent Clinics 2017-09-29 2017-09-29 Outpatient Jaswinder Jaswinderkellie [id number] 10:13:00 10:13:00 t [facility] [employer] [facility] ent [facility] 2017-09-28 2017-09-28 Outpatient Jaswinder [facility] [id number] 14:00:00 14:00:00 t [facility] Results Test Description Test Time Test Comments Results Result Comments Source PHOSPHORUS 2018-11-11 05:54:00 Test Item Value Reference Range Interpretation Comme nts PHOSPHORUS (BEAKER) (test code = 604) 3.6 mg/dL 2.3-4.7 [id number] 05:54:00 Test Item Value Reference Range Interpretation Comments MAGNESIUM (BEAKER) (test code = 1.8 mg/dL 1.6-2.6 627) BASIC METABOLIC [id number] 05:54:00 Test Item Value Reference Range Interpretation [...] APPLICABLE FOR DIALYSIS PATIEN TS. HEPATIC FUNCTION [id number] 05:54:00 Test Item Value Reference Range Interpretation [...] 6-55 347) CBC W/PLT COUNT & AUTO [id number] 05:43:00 Test Item Value Reference Range Interpretation [...] PERCENT (BEAKER) (test code = 2801) PROTHROMBIN [id number] 05:42:00 Test Item Value Reference Range Interpretation [...] is2.5-3.5 for patients wiht mechanical heart valves.HEMOGLOBIN [id number] 07:50:00 Test Item Value Reference Range Interpretation Comments HEMOGLOBIN A1C (BEAKER) (test code = 7.1 % 4.3-6.1 H 368) [id number] 04:53:00 Test Item Value Reference Range Interpretation Comments PHOSPHORUS (BEAKER) (test code = 3.2 mg/dL 2.3-4.7 604) [id number] 04:53:00 Test Item Value Reference Range Interpretation Comments MAGNESIUM (BEAKER) (test code = 1.8 mg/dL 1.6-2.6 627) BASIC METABOLIC [id number] 04:53:00 Test Item Value Reference Range Interpretation [...] APPLICABLE FOR DIALYSIS PATIEN TS. HEPATIC FUNCTION [id number] 04:53:00 Test Item Value Reference Range Interpretation [...] code = 12 U/L 6-55 347) PROTHROMBIN [id number] 04:19:00 Test Item Value Reference Range Interpretation [...] mechanical heart valves.CBC W/PLT COUNT & AUTO [id number] 04:14:00 Test Item Value Reference Range Interpretation [...] 0-1 PERCENT (BEAKER) (test code = 2801) [id number] 14:44:00 Test Item Value Reference Range Interpretation Comments LIPASE (BEAKER) (test code = 749) 972 U/L 8-78 H [id number] 13:06:00 Test Item Value Reference Range Interpretation Comments PHOSPHORUS (BEAKER) (test code = 3.3 mg/dL 2.3-4.7 604) [id number] 13:06:00 Test Item Value Reference Range Interpretation Comments MAGNESIUM (BEAKER) (test code = 2.0 mg/dL 1.6-2.6 627) BASIC METABOLIC [id number] 13:06:00 Test Item Value Reference Range Interpretation [...] NOT APPLICABLE FOR DIALYSIS PATIEN TS. LIPID [id number] 13:06:00 Test Item Value Reference Range Interpretation [...] 130-159 High 160-189 Very High >=190HEPATIC FUNCTION [id number] 13:06:00 Test Item Value Reference Range Interpretation [...] 6-55 347) CBC W/PLT COUNT & AUTO [id number] 12:46:00 Test Item Value Reference Range Interpretation [...] PERCENT (BEAKER) (test code = 2801) PROTHROMBIN [id number] 12:39:00 Test Item Value Reference Range Interpretation Comments PROTIME (BEAKER) (test code = 13.4 seconds 11.9-14.2 759) INR (MARY) (test code = 370) 1.1 <=5.9 Effective 08/03/2018: PT Reference Range ChangeNew: 11.9-14.2 Previous: 11.7- 14.7RECOMMENDED COUMADIN/WARFARIN INR THERAPY RANGESSTANDARD DOSE: 2.0-3.0 Includes: PROPHYLAXIS for venous thrombosis, systemic embolization; TREATMENT for venous thrombosis and/or pulmonary embolus.HIGH RISK: Target INR is2.5-3.5 for patients wiht mechanical heart valves.
--- NOTE | 2020-09-20 13:42 | RAD REPORT ---
EXAM DESCRIPTION: CT - Abdomen Pelvis Wo Contrast - 09/20/2020 1:31 pm CLINICAL HISTORY: Abdominal pain. no contrast;Abd pain COMPARISON: Abdomen Pelvis Wo Contrast dated 08/19/2020 TECHNIQUE: CT imaging of the abdomen and pelvis was performed without contrast. Solid organ, bowel a nd vascular assessment is limited due to lack of IV and oral contrast. All CT scans are performed using dose optimization technique as appropriate and may include automated exposure control or mA/KV adjustment according to patient size. FINDINGS: The lower lung arnold are clear. Mild to moderate pneumobilia.No aggressive liver lesion or biliary dilatation. Moderate hiatal hernia . The spleen is unremarkable. Mild edema in the region of the pancreatic head noted. Mild left hydron ephrosis is present with 12 mm stone in the inferior calyx left kidney. No right-sided stone or hydro nephrosis. No bowel obstruction, free air, free fluid or abscess. Prominent sigmoid diverticulosis without diver ticulitis. The appendix is not identified as a discrete structure, however, no secondary findings of appendicitis are identified. Moderate levoscoliosis of the lumbar spine. IMPRESSION: Suggestion of edema in the region of the pancreatic head could indicate a pancreatitis. Suggest correlation with amylase and lipase levels. 12 mm stone inferior left kidney with mild left hydronephrosis. Moderate axial hiatal hernia. Sigmoid diverticulosis without diverticulitis. A limited non-contrast examination was performed as detailed.
--- NOTE | 2020-09-20 14:07 | RAD REPORT ---
EXAM DESCRIPTION: RAD - Chest Single View - 09/20/2020 1:54 pm CLINICAL HISTORY: CHEST PAIN Chest pain. COMPARISON: Abdomen 1 View (KUB) dated 08/19/2020; Chest Single View dated 08/18/2020; Abdomen 1 View (KUB) dated 08/18/2020; Abdomen 1 View (KUB) dated 08/16/2020 FINDINGS: Portable technique limits examination quality. The lungs are grossly clear. The heart is normal in size. Right-sided venous catheter has tip in the SVC.
[2020-09-20 14:19] LABS: Absolute Lymphocytes (CBC) 1.5 K/uL (0.7-4.9); Basophils % 0.5 % (0-1.3); Hematocrit 32.6 % (36.0-45.0); Lymphocytes % 24.1 % (15.3-44.8); MPV 7.7 fL (7.6-11.3); RBC Red Blood Cell Count 4.16 M/uL (3.86-4.86)
[2020-09-20 14:28] LABS: Protime INR 1.04
[2020-09-20 14:37] LABS: ALT/SGPT 17 U/L (12-78); AST/SGOT 11 U/L (15-37); Albumin 3.2 g/dL (3.4-5.0); Alkaline Phosphatase 121 U/L (45-117); BUN Blood Urea Nitrogen 12 mg/dL (7-18); Bicarbonate 27 mmol/L (21-32); Bilirubin Direct < 0.1 mg/dL (0-0.2); Bilirubin Total 0.4 mg/dL (0.2-1.0); Glucose Level 171 mg/dL (74-106); Lipase 261 U/L (73-393); Magnesium 2.2 mg/dL (1.8-2.4); NT PRO-BNP 576 pg/mL (<125); Potassium 3.9 mmol/L (3.5-5.1); Protein, Total 7.6 g/dL (6.4-8.2); Sodium Level 140 mmol/L (136-145); Troponin (Emerg Dept Use Only) < 0.02 ng/mL (0.0-0.045)
[2020-09-20] MEDS ORDERED: MORPHINE 2 MG/ML SYR ONE ×4 (14:51→22:13)
[2020-09-20] MEDS ORDERED: ONDANSETRON 4 MG/2 ML VIAL ONE ×2 (14:51→23:23)
[2020-09-20 16:22] LABS: Urine Appearance CLOUDY (Clear); Urine Bilirubin NEGATIVE (Negative); Urine Blood 2+ (Negative); Urine Color YELLOW (Yellow); Urine Glucose NEGATIVE (Negative); Urine Protein 1+ (Negative); Urine Specific Gravity 1.015 (1.005-1.030); Urine Urobilinogen 0.2 mg/dL (0.2-1.0)
[2020-09-20 16:49] LABS: Urine Microscopic Reflex ORDER UMIC
[2020-09-20 16:51] LABS: Urine Bacteria 20-50 /HPF (<20)
[2020-09-20 16:52] LABS: Urine Mucus 1+ /HPF (NONE SEEN)
--- NOTE | 2020-09-20 18:12 | EDPHYS ---
Physician Documentation [facility] Name: Isadora Bettencourt Age: 74 yrs Sex: Female : 1945 Arrival Date: 09/20/2020 Time: 12:36 Bed 19 Private MD: ED Physician Hollis Paz HPI: 09/20 13:37 This 74 yrs old Female presents to ER via Wheelchair with complaints of Chest kb Pain, Jaw Pain. 13:37 The patient or guardian reports chest pain that is located primarily in the anterior kb chest wall, right. Onset: just prior to arrival. The pain radiates to right jaw. Associated signs and symptoms: Pertinent positives: abdominal pain, Pertinent negatives: cough, diaphoresis, dizziness, headache, lower extremity pain, lower extremity swelling, lightheadedness, nausea, near syncope, palpitations, recent travel, shortness of breath, syncope, vomiting. The chest pain is described as aching. Duration: The patient or guardian reports a single episode, that is now resolved. Modifying factors: The symptoms are alleviated by nothing. the symptoms are aggravated by nothing. Severity of pain: At its worst the pain was moderate in the emergency department the pain has resolved. The patient has not experienced similar symptoms in the past. The patient has not recently seen a physician. Pt reports she walked out of Dr Powell's office and started having right sided chest pain that radiated to right jaw so she came in. States the pain in chest and jaw has resolved, but she is now having pain to RLQ. . 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 - Social history:: Smoking status: Patient denies any tobacco usage or history of. ROS: 13:36 Constitutional: Negative for fever, chills, and weight loss, Respiratory: Negative for kb shortness of breath, cough, wheezing, and pleuritic chest pain. 13:36 Cardiovascular: Positive for chest pain, of the anterior aspect of right upper chest, Negative for edema, orthopnea, palpitations, paroxysmal nocturnal dyspnea. 13:36 Abdomen/GI: Positive for abdominal pain, of the right upper quadrant and right lower quadrant, Negative for nausea, vomiting, and diarrhea. 13:36 All other systems are negative. 13:38 : Positive for urinary symptoms, small amounts, burning with urination. kb Exam: 13:36 Constitutional: This is a well developed, well nourished patient who is awake, alert, kb and in no acute distress. Head/Face: Normocephalic, atraumatic. ENT: Moist Mucous membranes Cardiovascular: Regular rate and rhythm with a normal S1 and S2. No gallops, murmurs, or rubs. No pulse deficits. Respiratory: Respirations even and unlabored. No increased work of breathing, no retractions or nasal flaring. Skin: Warm, dry with normal turgor. Normal color. MS/ Extremity: Pulses equal, no cyanosis. Neurovascular intact. Full, normal range of motion. Neuro: Awake and alert, GCS 15, oriented to person, place, time, and situation. Moves all extremities. Normal gait. Psych: Awake, alert, with orientation to person, place and time. Behavior, mood, and affect are within normal limits. 13:36 Chest/axilla: Inspection: normal, Palpation: tenderness, that is mild, of the anterior aspect of right upper chest, that totally reproduces the patient's complaints. 13:36 Abdomen/GI: Inspection: abdomen appears normal, Bowel sounds: normal, Palpation: soft, in all quadrants, mild abdominal tenderness, in the right upper quadrant, moderate abdominal tenderness, in the right lower quadrant. 14:01 ECG was reviewed by the Attending Physician. kb Vital Signs: 12:53 BP 149 / 93; Pulse 79; Resp 18; Temp 98.6; Pulse Ox 98% ; Weight 83.91 kg; Height 5 ft. ll1 1 in. (154.94 cm); Pain 6/10; 15:03 BP 153 / 87; Pulse 78; Resp 18; Pulse Ox 96% ; zb 17:18 BP 143 / 58; Pulse 76; Resp 16; Pulse Ox 98% on R/A; zb 12:53 Body Mass Index 34.96 (83.91 kg, 154.94 cm) ll1 MDM: 13:08 Patient medically screened. kb 13:35 Data reviewed: vital signs, nurses notes. Data interpreted: Pulse oximetry: on room air kb is 98 %. Interpretation: normal. 15:24 ED course: Discussed HPI, exam and diagnostics with Dr Paz. Recommends outpatient kb follow up. Pt in agreement with plan of care. Pt states she would rather go home than be admitted. . 16:11 ED course: EKG compared to previous ones from July and August. No new findings. kb 17:55 Counseling: I had a detailed discussion with the patient and/or guardian regarding: the kb historical points, exam findings, and any diagnostic results supporting the discharge/admit diagnosis, lab results, radiology results, the need for outpatient follow up, a certified medical biller, a family practitioner, to return to the emergency department if symptoms worsen or persist or if there are any questions or concerns that arise at home. 18:09 ED course: Chest pain returned for the 3rd time. KADE Lui contacted for kb admission. Will see pt in ED shortly. 09/20 13:15 Order name: Basic Metabolic Panel kb 09/20 13:15 Order name: CBC with Diff kb 09/20 13:15 Order name: LFT's 09/20 13:15 Order name: Magnesium kb 09/20 13:15 Order name: NT PRO-BNP; Complete Time: 14:46 kb 09/20 13:15 Order name: PT-INR; Complete Time: 14:46 kb 09/20 13:15 Order name: Troponin (emerg Dept Use Only); Complete Time: 14:46 kb 09/20 13:15 Order name: Urine Microscopic Only; Complete Time: 16:54 kb 09/20 13:15 Order name: Lipase; Complete Time: 14:46 kb 09/20 13:16 Order name: Basic Metabolic Panel; Complete Time: 14:46 EDMS 09/20 13:16 Order name: CBC with Automated Diff; Complete Time: 14:46 EDMS 09/20 13:16 Order name: Liver (Hepatic) Function; Complete Time: 14:46 EDMS 09/20 13:16 Order name: Magnesium; Complete Time: 14:46 EDMS 09/20 16:10 Order name: Troponin (emerg Dept Use Only); Complete Time: 18:05 kb 09/20 16:18 Order name: Urinalysis; Complete Time: 16:54 EDMS 09/20 16:54 Order name: Urine Culture EDMS 09/20 22:08 Order name: Glucose, Ancillary Testing; Complete Time: 22:16 EDMS 09/20 22:52 Order name: Troponin I; Complete Time: 23:14 EDMS 09/20 22:52 Order name: NT PRO-BNP; Complete Time: 23:14 EDMS 09/20 22:52 Order name: C-Reactive Protein; Complete Time: 23:14 EDMS 09/20 22:52 Order name: Amylase; Complete Time: 23:14 EDMS 09/20 22:52 Order name: Lipase; Complete Time: 23:14 EDMS 09/21 03:10 Order name: Troponin I EDMS 09/21 05:18 Order name: CBC with Automated Diff EDMS 09/21 05:35 Order name: Comprehensive Metabolic Panel EDMS 09/21 05:35 Order name: Phosphorus EDMS 09/21 05:35 Order name: Troponin I EDMS 09/21 05:35 Order name: Lipid Profile EDMS 09/21 05:35 Order name: T4 Free EDMS 09/20 13:15 Order name: XRAY Chest (1 view); Complete Time: 14:09 kb 09/20 13:15 Order name: EKG; Complete Time: 13:16 kb 09/20 13:15 Order name: Cardiac monitoring; Complete Time: 14:10 kb 09/20 13:15 Order name: EKG - Nurse/Tech; Complete Time: 14:10 kb 09/20 13:15 Order name: IV Saline Lock; Complete Time: 14:10 kb 09/20 13:15 Order name: Labs collected and sent; Complete Time: 14:10 kb 09/20 13:15 Order name: O2 Per Protocol; Complete Time: 14:10 kb 09/20 13:15 Order name: O2 Sat Monitoring; Complete Time: 14:10 kb 09/20 13:15 Order name: Urine Dipstick-Ancillary (obtain specimen); Complete Time: 16:03 kb 09/20 13:16 Order name: CT Abd/Pelvis - Without Contrast; Complete Time: 13:44 kb 09/21 05:35 Order name: Magnesium EDMS 09/21 05:35 Order name: Thyroid Stimulating Hormone EDMS 09/21 05:35 Order name: Transferrin Sat/Iron Binding EDMS 09/21 05:35 Order name: Ferritin EDMS 09/21 08:54 Order name: Glucose, Ancillary Testing EDMS 09/21 11:42 Order name: Glucose, Ancillary Testing EDMS EC:01 Rate is 65 beats/min. Rhythm is regular. QRS [place] is Normal. LA interval is normal at kb 154 msec. QRS interval is normal at 138 msec. QT interval is normal at 460 msec. Administered Medications: 14:20 Drug: morphine 2 mg {Note: RASS +1.} Route: IVP; Site: Port-a-cath; zb 15:00 Follow up: Response: No adverse reaction; Marked relief of symptoms zb 14:20 Drug: Zofran (Ondansetron) 4 mg Route: IVP; Site: Port-a-cath; zb 16:38 Follow up: Response: No adverse reaction zb 16:10 Drug: morphine 2 mg {Note: RASS +0.} Route: IVP; Site: Port-a-cath; zb 16:38 Follow up: Response: No adverse reaction; Marked relief of symptoms; Pain is decreased; zb RASS: Alert and Calm (0) 18:28 Drug: Rocephin (cefTRIAXone) 1 grams Route: IV; Rate: calculated rate; Site: Port-a-cath; 19:10 Follow up: Response: No adverse reaction; IV Status: Completed infusion; IV Intake: 10mlem 18:29 Drug: morphine 2 mg {Note: RASS +0.} Route: IVP; Site: Port-a-cath; zb 19:10 Follow up: Response: No adverse reaction em Disposition: 09/22 07:22 Co-signature as Attending Physician, Hollis Paz MD I agree with the assessment and kdr plan of care. Disposition Summary: 09/20/20 18:10 Hospitalization Ordered Hospitalization Status: Observation kb Provider: Kale Mosher Condition: Stable kb Problem: new kb Symptoms: are unchanged kb Bed/Room Type: Standard kb Location: Telemetry/MedSurg (observation)(09/21/20 12:04) dw Room Assignment: 224(09/21/20 12:04) dw Diagnosis - Chest pain, unspecified kb - UTI/ Urinary tract infection, site not specified kb - Abdominal pain, unspecified kb Discharge Instructions: - Discharge Summary Sheet kb - Abdominal Pain, Adult, [id number] kb - Nonspecific Chest Pain, Adult, [id number] kb Forms: - Medication Reconciliation Form kb - SBAR form kb Signatures: Dispatcher [employer] EDMS Mecca Sullivan, ELECTRICIANS TOP HELPER-C ELECTRICIANS TOP HELPER-Nichol Lino, RN RN dw Hollis Paz MD MD kdr Lasagna, Tonya RN RN tl1 Jag Forte RN RN ll1 Frieda Boles RN RN Fernando Benitez RN em Corrections: (The following items were deleted from the chart) 09/20 16:53 16:50 Urine Microscopic Only ordered. EDMT EDMS :30 18:10 Telemetry/MedSurg (observation) kb tl1 21:30 18:10 kb tl1 09/21 12:04 09/20 21:30 BR ER HOLD tl1 dw 09/21 12:04 09/20 21:30 ERHOLD- tl1 dw
--- NOTE | 2020-09-20 18:12 | ER ---
Nurse's Notes 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 Coronavirus ll1 screen: Client denies travel out of the [place] in the last 14 days. At this time, the client does not indicate any symptoms associated with coronavirus-19. Ebola Screen: Patient denies travel to an Ebola-affected area in the 21 days before illness onset. Initial Sepsis Screen: Does the patient meet any 2 criteria? No. Patient's initial sepsis screen is negative. Does the patient have a suspected source of infection? No. Patient's initial sepsis screen is negative. Risk Assessment: Do you want to hurt yourself or someone else? Patient reports no desire to harm self or others. Onset of symptoms was September 20, 2020. 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 - Social history:: Smoking status: Patient denies any tobacco usage or history of. Screenin:20 Abuse screen: Denies threats or abuse. Denies injuries from another. Nutritional zb screening: No deficits noted. Tuberculosis screening: No symptoms or risk factors identified. Fall Risk No fall in past 12 months (0 pts). No secondary diagnosis (0 pts). No IV (0 pts). Ambulatory Aid- Crutches/Cane/Walker (15 pts). Gait- Normal/Bed Rest/Wheelchair (0 pts) Mental Status- Oriented to own ability (0 pts). Total Mitchell Fall Scale indicates No Risk (0-24 pts). Assessment: 13:14 Reassessment: ECP at bedside. zb 14:00 General: Appears uncomfortable, Behavior is calm. Pain: Complains of pain in right zb lower quadrant and right upper quadrant and chest and anterior aspect of right upper chest Pain radiates to right lower quadrant Pain began 1 hour ago. Is continuous. Neuro: Level of Consciousness is awake, alert, obeys commands, Oriented to person, place, time. Cardiovascular: Reports chest pain, Denies lightheadedness, nausea, palpitations, shortness of breath, vomiting, Heart tones S1 S2 present Capillary refill < 3 seconds Patient's skin is warm and dry. Respiratory: Airway is patent Respiratory effort is even, unlabored, Respiratory pattern is regular, symmetrical. GI: Abdomen is round obese. : Reports burning with urination, pain urgency, urinary frequency. Derm: Skin is intact, is healthy with good turgor, Skin is normal. Musculoskeletal: Range of motion: intact in all extremities. 15:00 Reassessment: Patient appears in no apparent distress at this time. Patient and/or zb family updated on plan of care and expected duration. Pain level reassessed. Patient is alert, oriented x 3, equal unlabored respirations, skin warm/dry/pink. 16:00 Reassessment: Patient appears in no apparent distress at this time. Patient and/or zb family updated on plan of care and expected duration. Pain level reassessed. Patient is alert, oriented x 3, equal unlabored respirations, skin warm/dry/pink. 17:20 Reassessment: Patient appears in no apparent distress at this time. Patient and/or zb family updated on plan of care and expected duration. Pain level reassessed. Patient is alert, oriented x 3, equal unlabored respirations, skin warm/dry/pink. Vital Signs: 12:53 BP 149 / 93; Pulse 79; Resp 18; Temp 98.6; Pulse Ox 98% ; Weight 83.91 kg; Height 5 ft. ll1 1 in. (154.94 cm); Pain 6/10; 15:03 BP 153 / 87; Pulse 78; Resp 18; Pulse Ox 96% ; zb 17:18 BP 143 / 58; Pulse 76; Resp 16; Pulse Ox 98% on R/A; zb 12:53 Body Mass Index 34.96 (83.91 kg, 154.94 cm) ll1 ED Course: 12:36 Patient arrived in ED. mr 12:43 Arm band placed on. ll1 12:54 Triage completed. ll1 13:08 Mecca Sullivan FNP-C is [facility]. kb 13:08 Gil Garcia MD is Attending Physician. kb 13:08 Hollis Paz MD is Attending Physician. kb 13:14 Frieda Boles, RN is Primary Nurse. zb 13:31 CT Abd/Pelvis - Without Contrast In Process Unspecified. EDMS 13:54 XRAY Chest (1 view) In Process Unspecified. EDMS 14:11 Accessed Port-a-Cath. using accessed w/ #19 Treviño needle, ,sterile technique, per [facility] protocol. Clean \T\ dry. Dressing intact. Good blood return. Flushes easily. 15:03 Patient maintains SpO2 saturation greater than 95% on room air. zb 18:10 Kale Mosher is Hospitalizing Provider. kb 19:10 No provider procedures requiring assistance completed. Patient admitted, IV remains in em place. Administered Medications: 14:20 Drug: morphine 2 mg {Note: RASS +1.} Route: IVP; Site: Port-a-cath; zb 15:00 Follow up: Response: No adverse reaction; Marked relief of symptoms zb 14:20 Drug: Zofran (Ondansetron) 4 mg Route: IVP; Site: Port-a-cath; zb 16:38 Follow up: Response: No adverse reaction zb 16:10 Drug: morphine 2 mg {Note: RASS +0.} Route: IVP; Site: Port-a-cath; zb 16:38 Follow up: Response: No adverse reaction; Marked relief of symptoms; Pain is decreased; zb RASS: Alert and Calm (0) 18:28 Drug: Rocephin (cefTRIAXone) 1 grams Route: IV; Rate: calculated rate; Site: zb Port-a-cath; 19:10 Follow up: Response: No adverse reaction; IV Status: Completed infusion; IV Intake: 10mlem 18:29 Drug: morphine 2 mg {Note: RASS +0.} Route: IVP; Site: Port-a-cath; zb 19:10 Follow up: Response: No adverse reaction em Intake: 19:10 IV: 10ml; Total: 10ml. em Outcome: 18:10 Decision to Hospitalize by Provider. kb 19:10 Admitted to ER Hold. Please see [facility] for further documentation. em 19:10 Condition: stable 19:10 Instructed on discharge instructions, Demonstrated understanding of instructions. 09/21 13:54 Patient left the ED. jd3 Signatures: Dispatcher [employer] EDMecca Levi, HIGH SCHOOL BIOLOGY TEACHER-C HIGH SCHOOL BIOLOGY TEACHER-Olvin Castellon Ratna HillFernando, RN RN em Deangelo Orozco RN RN jd3 Rene Gallegos, RN RN Jag Warren RN RN ll1 Frieda Boles RN RN zb
[2020-09-20] MEDS ORDERED: CEFTRIAXONE/SWI 1gm 1 GM/10 ML SYR ONE (18:38)
[2020-09-20] MEDS ORDERED: MORPHINE 4 MG/ML SYR ONE (18:38)
--- NOTE | 2020-09-20 19:36 | P.HP ---
Certification for Inpatient Patient admitted to: Inpatient With expected LOS: <2 Midnights Patient will require the following post-hospital care: None Practitioner: I am a practitioner with admitting privileges, knowledge of patient current condition, hospital course, and medical plan of care. Services: Services provided to patient in accordance with Admission requirements found in Title 42 Section 412.3 of the Code of Federal Regulations Patient History Date of Service: 09/20/20 Reason for admission: chest pain, UTI & pancreatitis History of Present Illness: Ms. Bettencourt is a 74 yo F with HTN, HLD, chronic pancreatitis and recurrent UTI, GERD, depression and anxiety here today for 10/10 sudden right sided chest pain going from her neck down to her abdomen when she was walking to her car. She says the pain will also occur randomly without exertion. She reports nausea, denies all other symptoms. In the past, she has had these symptoms with flares of her chronic pancreatitis. She had a cath in 2016, with no stents placed. CT scan shows edema in the region of the pancreatic head that could indicate pancreatitis, 12 mm stone inferior left kidney with mild left hydronephrosis, moderate axial hiatl hernia, and sigmoid diverticulosis without diverticulitis. Today she saw her urologist for dysuria and found to have cystitis and was prescribed two oral antibiotics. Allergies No Known Allergies Allergy (Verified 08/13/20 08:29) Home Medications: Citalopram Hydrobromide [Celexa] 1 tab PO DAILY 03/24/20 Famotidine [Pepcid*] 20 mg PO DAILY 08/16/20 Pantoprazole [Protonix Tab*] 40 mg PO BID 08/16/20 Gabapentin 300 mg PO DAILY 09/10/20 Metoprolol Succinate 50 mg PO BID 09/10/20 Simvastatin 20 mg PO DAILY 09/10/20 - Past Medical/Surgical History Diabetic: No -: Chronic pancreatitis -: Gastroesophageal reflux disease w Hiatal hernia -: Esophageal spasm -: Attention deficit disorder -: Hypertension -: Depression with anxiety -: Hyperlipidemia -: Chronic pain -: Fatty liver, nonalcoholic -: Urinary incontinence/Nephrolithiasis -: Recurrent UTI -: Hysterectomy -: Cholecystectomy -: Appendectomy -: back surgery -: knee surgery -: foot surgery -: EGD/ERCP -: Cardiac catheterization, no stent Psychosocial/ Personal History: Patient lives at home - Family History Father -: Diabetes, Cancer Notes: Type 2 Mother -: Hypertension, Diabetes Notes: Hypoglycemia Sister Notes: epilepsy - Social History Smoking Status: Former smoker Alcohol use: No CD- Drugs: No Caffeine use: No Place of Residence: Home Review of Systems 10-point ROS is otherwise unremarkable Cardiovascular: Chest Pain Gastrointestinal: Nausea Physical Examination - Physical Exam General: Alert, In no apparent distress HEENT: Atraumatic, PERRLA, Mucous membr. moist/pink, EOMI, Sclerae nonicteric Neck: Supple, 2+ carotid pulse no bruit, No LAD, Without JVD or thyroid abn ormality Respiratory: Clear to auscultation bilaterally, Normal air movement Cardiovascular: Regular rate/rhythm, Normal S1 S2 Gastrointestinal: Normal bowel sounds, No tenderness Musculoskeletal: No tenderness Integumentary: No rashes Neurological: Normal gait, Normal speech, Normal strength at 5/5 x4 extr, Normal tone, Normal affect Lymphatics: No axilla or inguinal lymphadenopathy - Studies Laboratory Data (last 24 hrs) 09/20/20 14:08: PT 12.0, INR 1.04 09/20/20 14:08: WBC 6.30, Hgb 10.7 L, Hct 32.6 L, Plt Count 203 09/20/20 14:08: Sodium 140, Potassium 3.9, BUN 12, Creatinine 0.79, Glucose 171 H, Magnesium 2.2, Total Bilirubin 0.4, AST 11 L, ALT 17, Alkaline Phosphatase 121 H, Lipase 261 Assessment and Plan - Problems (Diagnosis) (1) Acute on chronic pancreatitis Onset Date: 08/13/16 Current Visit: No Status: Acute (2) Chest pain Onset Date: 11/16/16 Current Visit: No Status: Acute Qualifiers: Chest pain type: unspecified Qualified Code(s): R07.9 - Chest pain, unspecified (3) Diabetes mellitus type 2 in obese Current Visit: No Status: Chronic (4) Recurrent UTI (urinary tract infection) Current Visit: No Status: Acute (5) HTN (hypertension) Onset Date: 08/31/17 Current Visit: No Status: Chronic Qualifiers: Hypertension type: primary hypertension Qualified Code(s): I10 - Essential (primary) hypertension (6) Hyperlipidemia Onset Date: 08/31/17 Current Visit: No Status: Chronic Qualifiers: Hyperlipidemia type: unspecified Qualified Code(s): E78.5 - Hyperlipidemia, unspecified - Plan continue IVF hydration, advance diet as tolerated continue IV antibiotics, urine culture and blood cultures pending trend troponins, repeat AM EKG daily ASA, BB, statin, morphine + NTG prn, hydralazine for PRN BP spikes lipid panel and thyroid panel pending, anemia workup pending accuchecks and sliding scale insulin DVT ppx Discharge Plan: Home Plan to discharge in: 48 Hours - Advance Directives Does patient have a Living Will: No Does patient have a Durable POA for Healthcare: No - Code Status/Comfort Care Code Status Assessed: Yes (full code ) Critical Care: No Time Spent Managing Pts Care (In Minutes): 70
[2020-09-20] MEDS: ATORVASTATIN 20 MG TAB PO SCH (21:12)
[2020-09-20] MEDS: INSULIN -REGULAR HUMAN 50 UNIT/0.5 ML ML SQ SCH (21:12)
[2020-09-20] MEDS ORDERED: NITROGLYCERIN 0.4 MG/TAB SL PRN (21:12)
[2020-09-20] MEDS ORDERED: HYDRALAZINE HCL 20 MG/ML VIAL IV PRN (21:12)
[2020-09-20] MEDS ORDERED: ONDANSETRON 4 MG/2 ML VIAL IV PRN (21:12)
[2020-09-20] MEDS: NA CHLORIDE 0.9% 1,000 ML IV SCH (21:12)
[2020-09-20] MEDS ORDERED: ACETAMINOPHEN 500 MG TAB PO PRN (21:12)
[2020-09-20] MEDS: Meropenem 1 GM/100 ML BAG IV SCH (21:12)
[2020-09-20] MEDS ORDERED: Meropenem 1000 MG/VIAL IV ONE (21:57)
[2020-09-20] MEDS ORDERED: ATORVASTATIN 20 MG TAB ONE (21:57)
[2020-09-20] MEDS ORDERED: NA CHLORIDE 0.9% 100 ML ONE (21:58)
[2020-09-20] MEDS ORDERED: INSULIN -REGULAR HUMAN 50 UNIT/0.5 ML ML ONE (21:58)
[2020-09-20] MEDS: MORPHINE 2 MG/ML SYR IV PRN (22:08)
[2020-09-20 22:52] LABS: Amylase 57 U/L (25-115); C-Reactive Protein 9.17 mg/L (<3.00); Lipase 202 U/L (73-393); NT PRO-BNP 523 pg/mL (<125); Troponin I < 0.02 ng/mL (0.0-0.045)
[2020-09-21 00:02] VITALS: BMI 34.0
[2020-09-21] MEDS ORDERED: ACETAMINOPHEN 500 MG TAB ONE (01:50)
[2020-09-21] MEDS: MORPHINE 2 MG/ML SYR IV PRN ×3 (02:08→20:30)
[2020-09-21] MEDS ORDERED: MORPHINE 2 MG/ML SYR ONE ×2 (02:27→11:57)
[2020-09-21] MEDS ORDERED: METOPROLOL TAR 25 MG TAB ONE (04:05)
[2020-09-21] MEDS ORDERED: NA CHLORIDE 0.9% 100 ML ONE (04:05)
[2020-09-21] MEDS ORDERED: Meropenem 1000 MG/VIAL IV ONE (04:05)
[2020-09-21 05:03] LABS: Absolute Lymphocytes (CBC) 1.3 K/uL (0.7-4.9); Basophils % 0.6 % (0-1.3); Hematocrit 29.9 % (36.0-45.0); MPV 8.2 fL (7.6-11.3); RBC Red Blood Cell Count 3.84 M/uL (3.86-4.86)
[2020-09-21] MEDS: Meropenem 1 GM/100 ML BAG IV SCH ×3 (05:12→20:21)
[2020-09-21 05:35] LABS: ALT/SGPT 16 U/L (12-78); AST/SGOT 8 U/L (15-37); Albumin 2.9 g/dL (3.4-5.0); Alkaline Phosphatase 116 U/L (45-117); BUN Blood Urea Nitrogen 16 mg/dL (7-18); Bicarbonate 28 mmol/L (21-32); Bilirubin Total 0.3 mg/dL (0.2-1.0); Glucose Level 218 mg/dL (74-106); HDL Cholesterol 41 mg/dL (40-60); LDL Cholesterol, Calculated 58 (<130); Magnesium 2.1 mg/dL (1.8-2.4); Phosphorus 3.9 mg/dL (2.5-4.9); Sodium Level 138 mmol/L (136-145); Transferrin 280 mg/dL (200-360); Troponin I < 0.02 ng/mL (0.0-0.045)
[2020-09-21] MEDS: METOPROLOL TAR 25 MG TAB PO SCH ×2 (05:56→17:05)
[2020-09-21] MEDS: NA CHLORIDE 0.9% 1,000 ML IV SCH (07:12)
[2020-09-21] MEDS: INSULIN -REGULAR HUMAN 50 UNIT/0.5 ML ML SQ SCH ×4 (07:30→20:34)
[2020-09-21] MEDS: ASPIRIN EC 81 MG TAB PO SCH (08:47)
[2020-09-21] MEDS: ENOXAPARIN 40 MG/0.4 ML SQ SCH (09:00)
--- NOTE | 2020-09-21 09:03 | EKG ---
Test Date: 2020-09-20 Test Time: 13:53:22 Business Communications Instructor: DOMO MEASUREMENT RESULTS: Intervals: Rate: 65 RI: 154 QRSD: 138 QT: 460 QTc: 478 Kamas: P: 30 RI: 154 QRS: 3 T: 153 INTERPRETIVE STATEMENTS: Normal sinus rhythm Left bundle branch block Abnormal ECG Compared to ECG 08/19/2020 02:23:54 No significant changes Electronically Signed On 09-21-20 09:01:56 CDT by Artemio Bolivar
[2020-09-21] MEDS ORDERED: INSULIN -REGULAR HUMAN 50 UNIT/0.5 ML ML ONE ×2 (09:13→11:55)
[2020-09-21] MEDS ORDERED: ENOXAPARIN 40 MG/0.4 ML SQ ONE (09:14)
[2020-09-21] MEDS ORDERED: ONDANSETRON 4 MG/2 ML VIAL ONE (10:03)
--- NOTE | 2020-09-21 15:25 | P.PN ---
Subjective Date of Service: 09/21/20 Chief Complaint: chest pain, UTI & pancreatitis Patient complaining of abdominal pain. No nausea or vomiting. Patient is ambulatory with a cane Physical Examination - Vital Signs Temperature: 98.1 F Blood Pressure: 126/78 Pulse: 60 Respirations: 17 Pulse Ox (%): 97 - Physical Exam General: In no apparent distress, Oriented x3 HEENT: Mucous membr. moist/pink Neck: JVD not distended Respiratory: Clear to auscultation bilaterally, Normal air movement Cardiovascular: No edema, Regular rate/rhythm, Normal S1 S2 Gastrointestinal: Soft and benign, Non-distended, No tenderness Musculoskeletal: No swelling, No tenderness Integumentary: No rashes, No erythema Neurological: Normal strength at 5/5 x4 extr Assessment And Plan - Current Problems (Diagnosis) (1) Acute on chronic pancreatitis Onset Date: 08/13/16 Current Visit: No Status: Acute (2) Nephrolithiasis Current Visit: No Status: Chronic (3) UTI (urinary tract infection) Current Visit: No Status: Acute Qualifiers: Urinary tract infection type: acute cystitis Hematuria presence: without hematuria Qualified Code(s): N30.00 - Acute cystitis without hematuria - Plan History of Morganella morganii resistance to several antibiotics and sensitive to meropenem. Patient started on meropene Follow urine culture. Lipase level is normal. Pain management as needed. Advanced diet as tolerated. Further management of kidney stones as outpatient with urology-Dr. Palacios.
[2020-09-21] MEDS: ATORVASTATIN 20 MG TAB PO SCH (20:30)
[2020-09-22] MEDS: Meropenem 1 GM/100 ML BAG IV SCH ×2 (04:21→12:25)
[2020-09-22] MEDS: MORPHINE 2 MG/ML SYR IV PRN (04:22)
[2020-09-22 05:50] LABS: Absolute Lymphocytes (CBC) 0.8 K/uL (0.7-4.9); Basophils % 0.7 % (0-1.3); Hematocrit 29.3 % (36.0-45.0); Lymphocytes % 17.3 % (15.3-44.8); MPV 7.8 fL (7.6-11.3); RBC Red Blood Cell Count 3.73 M/uL (3.86-4.86)
[2020-09-22 06:00] LABS: Potassium 4.1 mmol/L (3.5-5.1)
[2020-09-22] MEDS: METOPROLOL TAR 25 MG TAB PO SCH (06:33)
[2020-09-22] MEDS: INSULIN -REGULAR HUMAN 50 UNIT/0.5 ML ML SQ SCH ×2 (08:05→11:30)
[2020-09-22] MEDS: ENOXAPARIN 40 MG/0.4 ML SQ SCH (08:06)
[2020-09-22] MEDS: ASPIRIN EC 81 MG TAB PO SCH (08:06)
[2020-09-22 09:37] VITALS: O2SAT 92
[2020-09-22 11:46] VITALS: BP 131/61; TEMP 97.5
--- NOTE | 2020-09-22 13:24 | P.DS ---
Admission Date: 09/20/20 Discharge Date: 09/22/20 Disposition: ROUTINE DISCHARGE Discharge Condition: FAIR Reason for Admission: chest pain, UTI & pancreatitis - Problems (1) Acute on chronic pancreatitis Onset Date: 08/13/16 Current Visit: No Status: Acute (2) Nephrolithiasis Current Visit: No Status: Chronic (3) UTI (urinary tract infection) Current Visit: No Status: Acute Qualifiers: Urinary tract infection type: acute cystitis Hematuria presence: without hematuria Qualified Code(s): N30.00 - Acute cystitis without hematuria Brief History of Present Illness: 74 yo F with HTN, HLD, chronic pancreatitis and recurrent UTI, GERD, depression and anxiety presented to the ED for 10/10 sudden right sided chest pain going from her neck down to her abdomen when she was walking to her car. She says the pain will also occur randomly without exertion. In the past, she has had these symptoms with flares of her chronic pancreatitis. She had a cath in 2016, with no stents placed. CT scan shows edema in the region of the pancreatic head that could indicate pancreatitis, 12 mm stone inferior left kidney with mild left hydronephrosis, moderate axial hiatl hernia, and sigmoid diverticulosis without diverticulitis. She saw her urologist for dysuria and found to have cystitis and was prescribed two oral antibiotics. UA suggested the presence of UTI. Lipase level was normal. Patient is hospitalized for further management. Hospital Course: Patient place under observation and started on IV meropenem for UTI based on her previous urine culture growing in kaiser resistant Morganella morganii. Patient's symptoms improved with supportive measures. Urine culture yielded mixed growth. Patient currently asymptomatic. He is discharged with Cipro designed to continue treatment for UTI and recommended to follow with Dr. Palacios her urologist as outpatient. Vital Signs/Physical Exam: Temp Pulse Resp BP Pulse Ox 97.5 F 65 16 131/61 98 09/22/20 11:44 09/22/20 11:44 09/22/20 11:44 09/22/20 11:44 09/22/20 11:44 General: Alert, In no apparent distress, Oriented x3 HEENT: Mucous membr. moist/pink Neck: JVD not distended Respiratory: Clear to auscultation bilaterally, Normal air movement Cardiovascular: No edema, Regular rate/rhythm, Normal S1 S2 Gastrointestinal: Soft and benign, Non-distended, No tenderness Musculoskeletal: No swelling Integumentary: No rashes Neurological: Normal strength at 5/5 x4 extr Laboratory Data at Discharge: WBC 4.70 K/uL (4.3-10.9) D 09/22/20 05:31 Hgb 9.8 g/dL (12.0-15.0) L 09/22/20 05:31 Hct 29.3 % (36.0-45.0) L 09/22/20 05:31 Plt Count 155 K/uL (152-406) 09/22/20 05:31 PT 12.0 SECONDS (9.5-12.5) 09/20/20 14:08 INR 1.04 09/20/20 14:08 Sodium 139 mmol/L (136-145) 09/22/20 05:31 Potassium 4.1 mmol/L (3.5-5.1) 09/22/20 05:31 BUN 12 mg/dL (7-18) 09/22/20 05:31 Creatinine 0.76 mg/dL (0.55-1.3) 09/22/20 05:31 Glucose 199 mg/dL (74-106) H 09/22/20 05:31 Phosphorus 3.9 mg/dL (2.5-4.9) 09/21/20 04:45 Magnesium 2.1 mg/dL (1.8-2.4) 09/21/20 04:45 Total Bilirubin 0.3 mg/dL (0.2-1.0) 09/21/20 04:45 AST 8 U/L (15-37) L 09/21/20 04:45 ALT 16 U/L (12-78) 09/21/20 04:45 Alkaline Phosphatase 116 U/L (45-117) 09/21/20 04:45 Troponin I < 0.02 ng/mL (0.0-0.045) 09/21/20 04:45 Triglycerides 295 mg/dL (<150) H 09/21/20 04:45 Cholesterol 158 mg/dL (<200) 09/21/20 04:45 HDL Cholesterol 41 mg/dL (40-60) 09/21/20 04:45 Cholesterol/HDL Ratio 3.85 09/21/20 04:45 Amylase 57 U/L (25-115) 09/20/20 21:57 Lipase 202 U/L (73-393) 09/20/20 21:57 Home Medications: Citalopram Hydrobromide [Celexa] 1 tab PO DAILY 03/24/20 Famotidine [Pepcid*] 20 mg PO DAILY 08/16/20 Pantoprazole [Protonix Tab*] 40 mg PO BID 08/16/20 Gabapentin 300 mg PO DAILY 09/10/20 Metoprolol Succinate 50 mg PO BID 09/10/20 Simvastatin 20 mg PO DAILY 09/10/20 Cefpodoxime Proxetil 100 mg PO BID #14 tablet 09/22/20 New Medications: Cefpodoxime Proxetil 100 mg PO BID #14 tablet Diet: AHA Activity: Ad ange Followup: Dmitry Powell, [Primary Care Provider] - Jonh Garcia [ACTIVE - CAN ADMIT] - 1-2 Weeks
[2020-09-22] MEDS ORDERED: HEPARIN 500 UNIT/5 ML SYR IV PRN (14:52)
== END 2020-09-22 15:40 | disposition home health service (06) ==
LOC: ER 12:32 → ERHOLD 18:45 → 2ND 09-21 13:39
PROVIDERS: ADMIT Internal Medicine; ATTEND Internal Medicine
DX: N30.00 Acute cystitis without hematuria (principal); K85.90 Acute pancreatitis without necrosis or infection, unspecified; K86.1 Other chronic pancreatitis; N20.0 Calculus of kidney; R07.9 Chest pain, unspecified; I10 Essential (primary) hypertension; K76.0 Fatty (change of) liver, not elsewhere classified; E78.5 Hyperlipidemia, unspecified; K21.9 Gastro-esophageal reflux disease without esophagitis; K44.9 Diaphragmatic hernia without obstruction or gangrene; K57.30 Diverticulosis of large intestine without perforation or abscess without bleeding; G89.29 Other chronic pain; F41.8 Other specified anxiety disorders; F98.8 Other specified behavioral and emotional disorders with onset usually occurring in childhood and adolescence; E66.9 Obesity, unspecified; Z68.34 Body mass index [BMI] 34.0-34.9, adult; Z87.891 Personal history of nicotine dependence; Z90.710 Acquired absence of both cervix and uterus; Z83.3 Family history of diabetes mellitus; Z80.9 Family history of malignant neoplasm, unspecified
CPT/HCPCS: 96365; 93005 ×2; 87088; 85025 ×3; 87086; 80048 ×2; 36415 ×2; 82150; 83735 ×2; 84100; 85610; 80061; 82947 ×7; 80076; 84443; 87077; 87186; 83036; 84484 ×5; 84439; 82728; 83690 ×2; 83540; 80053; 83880 ×2; 84466; 86140; 74176; 71045; 94760 ×3; 96375; 99285; J1650 ×2; J2270 ×8; J2185 ×3; J1642; J0696; J2405 ×3; G0378 ×3; 81003; 81015

== ENCOUNTER 2020-10-03 13:59 | Inpatient (IN) | payer OTHER ==
--- OUTSIDE RECORDS SUMMARY | 2020-10-03 14:02 | XMS REPORT | Continuity of Care Document ---
:1945 Author Organization [facility] t Address [address] [place] [address] Care Team Providers Name Role Phone Angelo Powell DO Primary Care Physician [facility] Attending Clinician Unavailable [facility] Admitting Clinician Unavailable Problems Condition Condition Condition Status Onset Resolution Last Treating Co mments Source Name Details Category Date Date Treatment Clinician Date Acute Acute Disease Active [facility] pancreatit pancreatit 11-09 Mansi kes - is is 00:00: Medical 00 Brady Essential Essential Disease Active [facility] hypertensi hypertensi 11-09 Mansi kes - on on 00:00: Medical 00 Brady 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 11-09 Luke s - 00:00: Medical [address] [place] [address] Allergies, Adverse Reactions, Alerts This patient has no known allergies or adverse reactions. Social History Social Habit Start Date Stop Date Quantity Comments Source History [facility] - Alcohol Std Drinks Medica l Center History [facility] - Alcohol Binge Medical Carl ter Sex Assigned At [facility] kes [facility] Tobacco use and 2018-11-09 2018-11-09 Never used [facility] St Nazario kes - exposure 00:00:00 00:00:00 Medical Brady Alcohol intake 2018-11-09 2018-11-09 [facility] non-drinker of Medical Ce nter alcohol (finding) History [facility] 2018-11-09 2018-11-[address] [facility] - [...] times Center tablet daily . lipase-prot Yes [id number]{ Take [facility] ease-amylas 9-06 lipase} 36,000 [...] [facility] e 10-12 Powell applicatio [facility] - 00:00 n to Memoria :00 affected [...] 00:00:00 (1 of 1 - Medical Center [id number] PCV13) [code = PNEUMOCOCCAL 65+ YRS (1 of 1 - [id number] PCV13)] Future Scheduled 1997-12-28 SHINGLES VACCINES (1 [...] Medica l Center breast (procedure) [code = 937313779] Future Scheduled [address] [facility] - Test 00:00:00 malignant neoplasm of Medica l Center colon (procedure) [code = 315637382] Encounters Start End Encounter Admission Attending Care Care Encounter Source Date/Time Date/Time Type Type Clinicians Facility Department ID 2020-09-25 2020-09-25 [facility] [id number] 2020-09-20 2020-09-20 Outpatient [facility] [id number] [facility] 2020-09-04 2020-09-04 Out[facility] [id number] [facility] 2020-09-04 2020-09-04 Out[facility] [id number] [facility] 2020-09-04 2020-09-04 Out[facility] [id number] [facility] 2020-09-03 2020-09-03 Out[facility] [id number] [facility] 2020-08-27 2020-08-27 Out[facility] [id number] [facility] 2020-08-15 2020-08-15 Out[facility] [id number] [facility] 2020-08-14 2020-08-14 Out[facility] [id number] [facility] 2020-08-01 2020-08-01 Outpatient [facility] [id number] [facility] 2020-07-24 2020-07-24 Out[facility] [id number] [facility] 2020-07-16 2020-07-16 Out[facility] [id number] [facility] 2020-07-16 2020-07-16 Out[facility] [id number] [facility] 2020-07-10 2020-07-10 Outpatient [facility] [id number] [facility] 2020-07-05 2020-07-05 Out[facility] [id number] [facility] 2020-06-27 2020-06-27 Outpatient [facility] [id number] [facility] 2020-06-24 2020-06-24 Outpatient [facility] [id number] [facility] 2020-06-19 2020-06-19 Out[facility] [id number] [facility] 2020-05-20 2020-05-20 Out[facility] [id number] [facility] 2020-05-14 2020-05-14 Out[facility] [id number] [facility] 2020-04-19 2020-04-19 Out[facility] [id number] [facility] 2020-04-16 2020-04-16 Out[facility] [id number] [facility] 2019-09-29 2019-09-29 [facility] [id number] 13:46:00 13:46:00 [facility] Clinics 2019-09-28 2019-09-28 [facility] [id number] 11:00:00 11:00:00 t [employer] s - [facility] Medicine l Medicine Outpati ent Clinics 2019-09-28 2019-09-28 [facility] [id number] 10:30:00 10:30:00 [place] [employer] s - Drive [facility] Medicine l Medicine Outpati ent Clinics 2019-07-14 2019-07-14 [facility] [id number] 10:31:00 10:31:00 [place] [employer] s - [facility] Medicine l Medicine Outpati ent Clinics 2018-12-15 2018-12-15 [facility] [id number] [facility] 16:00:00 16:00:00 [place] Breather s - Drive [facility] l Medicine Outpati ent Clinics 2018-09-14 2018-09-14 [facility] [id number] 15:45:00 15:45:00 [place] [employer] s - [facility] Medicine l Medicine Outpati ent Clinics 2018-08-30 2018-08-30 [facility] [id number] 08:00:00 08:00:00 [place] [employer] s - [facility] Medicine l Medicine Outpati ent Clinics 2018-06-10 2018-06-10 [facility] [id number] 16:46:00 16:46:00 t [place] [employer] s - [facility] Medicine l Medicine Outpati ent Clinics 2018-06-09 2018-06-09 [facility] [id number] 09:18:00 09:18:00 t [facility] [employer] [address] [facility] Medicine l Medicine Outpati ent Clinics 2018-06-07 2018-06-07 [facility] [id number] 15:00:00 15:00:00 [place] [employer] s - [facility] Medicine l Medicine Outpati ent Clinics 2018-04-25 2018-04-25 [facility] [id number] 09:15:00 09:15:00 t [place] [employer] s - [facility] Medicine l Medicine Outpati ent Clinics 2018-03-09 2018-03-09 [facility] [id number] 16:00:00 16:00:00 t [employer]deja [employer] [facility] 2018-03-03 2018-03-03 [facility] [id number] 08:52:00 08:52:00 t [employer] [employer] [facility] 2017-11-30 2017-11-30 [facility] [id number] 15:00:00 15:00:00 t [employer] [facility] 2017-09-30 2017-09-30 [facility] [id number] 15:00:00 15:00:00 t Specialty/U Mansi kes - Specialty rology [facility] a [facility]rology [facility] l [facility] 2017-09-29 2017-09-29 [facility] [id number] 10:13:00 10:13:00 [employer]ja [employer] [facility] 2017-09-28 2017-09-28 [facility] [id number] 14:00:00 14:00:00 [employer]deja [employer]) [facility] Results Test Description Test Time Test Comments Results Result Comments Source PHOSPHORUS 2018-11-11 05:54:00 Test Item Value Reference Range Interpretation Comme nts PHOSPHORUS (BEAKER) (test code = 604) 3.6 mg/dL 2.3-4.7 [id number] 05:54:00 Test Item Value Reference Range Interpretation Comments MAGNESIUM (BEAKER) (test code = 1.8 mg/dL 1.6-2.6 627) BASIC METABOLIC [id number] 05:54:00 Test Item Value Reference Range Interpretation [...] APPLICABLE FOR DIALYSIS PATIEN TS. HEPATIC FUNCTION [id number] 05:54:00 Test Item Value Reference Range Interpretation [...] 6-55 347) CBC W/PLT COUNT & AUTO [id number] 05:43:00 Test Item Value Reference Range Interpretation [...] PERCENT (BEAKER) (test code = 2801) PROTHROMBIN [id number] 05:42:00 Test Item Value Reference Range Interpretation [...] is2.5-3.5 for patients wiht mechanical heart valves.HEMOGLOBIN [id number] 07:50:00 Test Item Value Reference Range Interpretation Comments HEMOGLOBIN A1C (BEAKER) (test code = 7.1 % 4.3-6.1 H 368) [id number] 04:53:00 Test Item Value Reference Range Interpretation Comments PHOSPHORUS (BEAKER) (test code = 3.2 mg/dL 2.3-4.7 604) [id number] 04:53:00 Test Item Value Reference Range Interpretation Comments MAGNESIUM (BEAKER) (test code = 1.8 mg/dL 1.6-2.6 627) BASIC METABOLIC [id number] 04:53:00 Test Item Value Reference Range Interpretation [...] APPLICABLE FOR DIALYSIS PATIEN TS. HEPATIC FUNCTION [id number] 04:53:00 Test Item Value Reference Range Interpretation [...] code = 12 U/L 6-55 347) PROTHROMBIN [id number] 04:19:00 Test Item Value Reference Range Interpretation [...] mechanical heart valves.CBC W/PLT COUNT & AUTO [id number] 04:14:00 Test Item Value Reference Range Interpretation [...] 0-1 PERCENT (BEAKER) (test code = 2801) [id number] 14:44:00 Test Item Value Reference Range Interpretation Comments LIPASE (BEAKER) (test code = 749) 972 U/L 8-78 H [id number] 13:06:00 Test Item Value Reference Range Interpretation Comments MAGNESIUM (BEAKER) (test code = 2.0 mg/dL 1.6-2.6 627) BASIC METABOLIC [id number] 13:06:00 Test Item Value Reference Range Interpretation [...] NOT APPLICABLE FOR DIALYSIS PATIEN TS. LIPID [id number] 13:06:00 Test Item Value Reference Range Interpretation [...] 130-159 High 160-189 Very High >=190HEPATIC FUNCTION [id number] 13:06:00 Test Item Value Reference Range Interpretation [...] (test code = 18 U/L 6-55 347) [id number] 13:06:00 Test Item Value Reference Range Interpretation Comments PHOSPHORUS (BEAKER) (test code = 3.3 mg/dL 2.3-4.7 604) CBC W/PLT COUNT & AUTO [id number] 12:46:00 Test Item Value Reference Range Interpretation [...] PERCENT (BEAKER) (test code = 2801) PROTHROMBIN [id number] 12:39:00 Test Item Value Reference Range Interpretation [...]
[2020-10-03 18:41] LABS: Urine Blood Negative (Negative); Urine Glucose Negative (Negative); Urine Protein Negative (Negative); Urine Specific Gravity 1.025 (1.005-1.030)
[2020-10-03] MEDS ORDERED: ONDANSETRON 4 MG/2 ML VIAL ONE (19:31)
[2020-10-03] MEDS ORDERED: MORPHINE 4 MG/ML SYR ONE (19:31)
[2020-10-03] MEDS ORDERED: NA CHLORIDE 0.9% 1,000 ML ONE (19:31)
[2020-10-03 19:36] LABS: Absolute Lymphocytes (CBC) 2.1 K/uL (0.7-4.9); Basophils % 0.5 % (0-1.3); Hematocrit 33.1 % (36.0-45.0); Lymphocytes % 29.4 % (15.3-44.8); MPV 8.1 fL (7.6-11.3); RBC Red Blood Cell Count 4.23 M/uL (3.86-4.86)
--- NOTE | 2020-10-03 19:46 | RAD REPORT ---
EXAM DESCRIPTION: CT - Abdomen Pelvis Wo Contrast - 10/03/2020 7:36 pm CLINICAL HISTORY: Abdominal pain. ABD PAIN COMPARISON: Abdomen Pelvis Wo Contrast dated 09/20/2020; Abdomen Pelvis Wo Contrast dated 08/20/19 21; Abdomen Pelvis W Contrast dated 08/16/2020; Abdomen Pelvis Wo Contrast dated 07/10/2020 TECHNIQUE: CT imaging of the abdomen and pelvis was performed without contrast. Solid organ, bowel a nd vascular assessment is limited due to lack of IV and oral contrast. All CT scans are performed using dose optimization technique as appropriate and may include automated exposure control or mA/KV adjustment according to patient size. FINDINGS: Moderate hiatal hernia. Lung bases are clear. Coronary artery calcifications. No pericardi al effusion. Pneumobilia which is unchanged. No focal liver lesions are identified. Peripancreatic stranding is pr esent. There is atrophy along the pancreatic body and tail. Fluid collection along the pancreatic sary l is unchanged since at least 08/16/2020. Spleen is unremarkable. Bilateral ureteral fullness. No obs tructing stones are identified. 9 millimeter stone in the lower pole left kidney. Hysterectomy. Diver ticulosis without diverticulitis. No bowel obstruction, free air, free fluid or abscess. Degenerative changes are present in the spine. IMPRESSION: Persistent peripancreatic stranding and edema consistent with acute pancreatitis. No com plicating features identified. A limited non-contrast examination was performed as detailed.
[2020-10-03 20:17] LABS: ALT/SGPT 17 U/L (12-78); AST/SGOT 13 U/L (15-37); Albumin 3.3 g/dL (3.4-5.0); Alkaline Phosphatase 139 U/L (45-117); BUN Blood Urea Nitrogen 12 mg/dL (7-18); Bicarbonate 27 mmol/L (21-32); Bilirubin Direct < 0.1 mg/dL (0-0.2); Bilirubin Total 0.3 mg/dL (0.2-1.0); Glucose Level 156 mg/dL (74-106); Lipase 4380 U/L (73-393); Potassium 3.8 mmol/L (3.5-5.1); Protein, Total 7.9 g/dL (6.4-8.2); Sodium Level 137 mmol/L (136-145)
--- NOTE | 2020-10-03 20:33 | ER ---
Nurse's Notes [facility] Jaswinder Name: Isadora Bettencourt Age: 74 yrs Sex: Female : 1945 Arrival Date: 10/03/2020 Time: 14:01 Bed 26 Private MD: Dmitry Powell Diagnosis: Acute pancreatitis without necrosis or infection, unspecified Presentation: 10/03 14:08 Chief complaint: Patient states: abdominal pain, nausea, and diarrhea since yesterday. aa5 Pt denies vomiting. Pt states "I have an appointment with Dr. Smith for an endoscopy". Coronavirus screen: At this time, the client does not indicate any symptoms associated with coronavirus-19. Ebola Screen: Patient negative for fever greater than or equal to 101.5 degrees Fahrenheit, and additional compatible Ebola Virus Disease symptoms. Initial Sepsis Screen: Does the patient meet any 2 criteria? No. Patient's initial sepsis screen is negative. Does the patient have a suspected source of infection? No. Patient's initial sepsis screen is negative. Risk Assessment: Do you want to hurt yourself or someone else? Patient reports no desire to harm self or others. Onset of symptoms was September 2020. 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 - Social history:: Smoking status: Patient denies any tobacco usage or history of. Screenin:30 Abuse screen: Denies threats or abuse. Denies injuries from another. Nutritional ld1 screening: No deficits noted. Tuberculosis screening: No symptoms or risk factors identified. Fall Risk None identified. Assessment: 19:30 General: Appears in no apparent distress. comfortable, Behavior is calm, cooperative, ld1 appropriate for age. Pain: Complains of pain in abdomen Pain does not radiate. Pain currently is 8 out of 10 on a pain scale. Quality of pain is described as throbbing, Pain began 4 hours ago. Is continuous. Neuro: Level of Consciousness is awake, alert, obeys commands, Oriented to person, place, time, situation. Cardiovascular: Capillary refill < 3 seconds Patient's skin is warm and dry. Respiratory: Airway is patent Respiratory effort is even, unlabored, Respiratory pattern is regular, symmetrical. GI: Abdomen is round non-distended, Bowel sounds present X 4 quads. Abd is soft Abdomen is tender to palpation X 4 quads. : No signs and/or symptoms were reported regarding the genitourinary system. EENT: No signs and/or symptoms were reported regarding the EENT system. Derm: No signs and/or symptoms reported regarding the dermatologic system. Musculoskeletal: No signs and/or symptoms reported regarding the musculoskeletal system. Vital Signs: 14:08 BP 180 / 96; Pulse 79; Resp 18 S; Temp 97.6(TE); Pulse Ox 98% on R/A; aa5 19:30 BP 168 / 92; Pulse 82; Resp 18; Pulse Ox 98% on R/A; Pain 8/10; ld1 ED Course: 14:01 Patient arrived in ED. as 14:01 Dmitry Powell DO is Private Physician. as 14:08 Arm band placed on. aa5 14:09 Triage completed. aa5 18:30 Mecca Sullivan FNP-C [facility]. kb 18:30 Anthony Kaminski MD is Attending Physician. kb 18:40 Deborah Samaniego RN is Primary Nurse. tr6 19:30 Patient has correct armband on for positive identification. Bed in low position. Call ld1 light in reach. Side rails up X2. compliance monitor on. Pulse ox on. NIBP on. 19:30 No provider procedures requiring assistance completed. Accessed Port-a-Cath. using ld1 accessed w/ #19 Treviño needle, Clean \\T\\ dry. Dressing intact. Good blood return. 19:36 CT Abd/Pelvis - Without Contrast In Process Unspecified. EDMS 20:33 Kale Mosher is Hospitalizing Provider. kb Administered Medications: 19:20 Drug: NS 0.9% 1000 ml Route: IV; Rate: 1000 ml; Site: Port-a-cath; ld1 19:20 Drug: Zofran (Ondansetron) 4 mg Route: IVP; Site: Port-a-cath; ld1 19:34 Follow up: Response: No adverse reaction ld1 19:20 Drug: morphine 4 mg Route: IVP; Site: Port-a-cath; ld1 19:34 Follow up: Response: No adverse reaction ld1 Outcome: 20:33 Decision to Hospitalize by Provider. kb 23:28 Admitted to Med/surg accompanied by nurse, via wheelchair, room 216, with chart, Report ld1 called to SHARMAINE Schuler 23:28 Condition: stable 10/04 00:01 Patient left the ED. ea Signatures: Dispatcher [employer] EDMS Mecca Sullivan, SERJIO-C SOFTWARE TESTER-Ann Marie Spence Audri, RN RN aa5 Carmelina Wright RN RN Balbina Barbosa RN RN ld1 Deborah Samaniego RN RN tr6 Corrections: (The following items were deleted from the chart) 10/03 14:11 14:08 Chief complaint: Patient states: abdominal pain, nausea, and diarrhea since aa5 yesterday. Pt denies vomiting. aa5
--- NOTE | 2020-10-03 20:33 | EDPHYS ---
Physician Documentation [facility] Name: Isadora Bettencourt Age: 74 yrs Sex: Female : 1945 Arrival Date: 10/03/2020 Time: 14:01 Bed 26 Private MD: Dmitry Powell ED Physician Anthony Kaminski HPI: 10/03 19:42 This 74 yrs old Female presents to ER via Wheelchair with complaints of kb Abdominal Pain. 19:42 The patient presents with abdominal pain in the upper abdomen. Onset: The kb symptoms/episode began/occurred yesterday. The symptoms do not radiate. Associated signs and symptoms: Pertinent positives: diarrhea, Pertinent negatives: nausea and vomiting, fever. The symptoms are described as constant. Modifying factors: The symptoms are alleviated by nothing, the symptoms are aggravated by nothing. Severity of pain: At its worst the pain was mild moderate in the emergency department the pain is unchanged. The patient has not experienced similar symptoms in the past. The patient has not recently seen a physician. Pt reports upper abd pain that feels like pancreatitis she has had before. Reports diarrhea, no other symptoms. Was scheduled to see Dr Smith today, but came here instead. 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 - Social history:: Smoking status: Patient denies any tobacco usage or history of. ROS: 19:11 Constitutional: Negative for fever, chills, and weight loss. kb 19:11 Abdomen/GI: Positive for abdominal pain, diarrhea, Negative for nausea and vomiting. 19:11 All other systems are negative. Exam: 19:11 Constitutional: This is a well developed, well nourished patient who is awake, alert, kb and in no acute distress. Head/Face: Normocephalic, atraumatic. ENT: Moist Mucous membranes Respiratory: Respirations even and unlabored. No increased work of breathing, no retractions or nasal flaring. Skin: Warm, dry with normal turgor. Normal color. MS/ Extremity: Pulses equal, no cyanosis. Neurovascular intact. Full, normal range of motion. Neuro: Awake and alert, GCS 15, oriented to person, place, time, and situation. Moves all extremities. Normal gait. Psych: Awake, alert, with orientation to person, place and time. Behavior, mood, and affect are within normal limits. 19:11 Abdomen/GI: Inspection: abdomen appears normal, Bowel sounds: normal, Palpation: soft, in all quadrants, mild abdominal tenderness, in the left upper quadrant, moderate abdominal tenderness, in the right upper quadrant. Vital Signs: 14:08 BP 180 / 96; Pulse 79; Resp 18 S; Temp 97.6(TE); Pulse Ox 98% on R/A; aa5 19:30 BP 168 / 92; Pulse 82; Resp 18; Pulse Ox 98% on R/A; Pain 8/10; ld1 MDM: 18:30 Patient medically screened. kb 18:58 Data reviewed: vital signs, nurses notes. Data interpreted: Pulse oximetry: on room air kb is 98 %. Interpretation: normal. 20:30 Counseling: I had a detailed discussion with the patient and/or guardian regarding: the kb historical points, exam findings, and any diagnostic results supporting the discharge/admit diagnosis, lab results, radiology results, the need for further work-up and treatment in the hospital. Physician consultation: Wilfredo BEACH was contacted at 20:32, regarding admission, patient's condition, and will see patient in ED, shortly. 10/03 18:30 Order name: Basic Metabolic Panel; Complete Time: 20:29 kb 10/03 18:30 Order name: CBC with Diff; Complete Time: 19:48 kb 10/03 18:30 Order name: Hepatic Function; Complete Time: 20:29 kb 10/03 18:30 Order name: Lipase; Complete Time: 20:29 kb 10/03 18:40 Order name: Urine Dipstick-Ancillary; Complete Time: 18:57 EDMS 10/03 21:12 Order name: Lipid Profile; Complete Time: 23:15 EDMS 10/03 22:37 Order name: SARS-COV-2 RT PCR EDMS 10/03 23:36 Order name: Comprehensive Metabolic Panel EDMS 10/03 23:36 Order name: CBC with Automated Diff EDMS 10/03 23:36 Order name: CBC with Automated Diff EDMS 10/03 23:36 Order name: CBC with Automated Diff EDMS 10/03 23:36 Order name: CBC with Automated Diff EDMS 10/03 23:36 Order name: Comprehensive Metabolic Panel EDMS 10/03 18:30 Order name: IV Saline Lock; Complete Time: 19:33 kb 10/03 18:30 Order name: Labs collected and sent; Complete Time: 19:33 kb 10/03 18:50 Order name: CT Abd/Pelvis - Without Contrast; Complete Time: 19:48 kb 10/03 23:36 Order name: NPO EDMS 10/03 23:36 Order name: Comprehensive Metabolic Panel EDMS 10/03 23:36 Order name: Comprehensive Metabolic Panel EDMS 10/03 23:36 Order name: Lipase EDMS 10/03 23:36 Order name: Lipase EDMS 10/03 23:36 Order name: Lipase EDMS 10/03 23:36 Order name: Lipase EDMS 10/03 23:36 Order name: Magnesium EDMS 10/03 23:36 Order name: Magnesium EDMS Administered Medications: 19:20 Drug: NS 0.9% 1000 ml Route: IV; Rate: 1000 ml; Site: Port-a-cath; ld1 19:20 Drug: Zofran (Ondansetron) 4 mg Route: IVP; Site: Port-a-cath; ld1 19:34 Follow up: Response: No adverse reaction ld1 19:20 Drug: morphine 4 mg Route: IVP; Site: Port-a-cath; ld1 19:34 Follow up: Response: No adverse reaction ld1 Disposition: 10/04 06:28 Co-signature as Attending Physician, Anthony Kaminski MD I agree with the assessment and james plan of care. Disposition Summary: 10/03/20 20:33 Hospitalization Ordered Hospitalization Status: Inpatient Admission kb Provider: Kale Mosher Location: Telemetry/MedSurg (Inpatient) kb Condition: Stable kb Problem: new kb Symptoms: are unchanged kb Bed/Room Type: Standard Room Assignment: 216(10/03/20 22:40) tl1 Diagnosis - Acute pancreatitis without necrosis or infection, unspecified kb Forms: - Medication Reconciliation Form kb - SBAR form kb Signatures: Dispatcher [employer] EDMecca Levi FNP-Kathy BASSETT-Anthony Whitten MD MD cha Calderon, Audri, RN RN aa5 Wilfredo Phillips, EGG GATHERER-C EGG GATHERER-Cla1 Caren Saul, RN RN tl1 Balbina Whaley RN RN ld1 Corrections: (The following items were deleted from the chart) 10/03 19:11 18:58 Counseling: I had a detailed discussion with the patient and/or guardian regarding: the historical points, exam findings, and any diagnostic results supporting the discharge/admit diagnosis, 21:34 20:43 CORONAVIRUS+MR.LAB.BRZ ordered. EDMS EDMS 22:40 20:33 kb tl1
--- NOTE | 2020-10-03 21:16 | P.HP ---
Certification for Inpatient Patient admitted to: Inpatient With expected LOS: >2 Midnights Patient will require the following post-hospital care: None Practitioner: I am a practitioner with admitting privileges, knowledge of patient current condition, hospital course, and medical plan of care. Services: Services provided to patient in accordance with Admission requirements found in Title 42 Section 412.3 of the Code of Federal Regulations Patient History Date of Service: 10/03/20 Primary Care Provider: Dr. Luis Jc Reason for admission: Acute pancreatitis History of Present Illness: 74-year-old female with history of chronic pancreatitis, GERD, frequent multi resistant urinary tract infections, hypertension, hyperlipidemia presents to the emergency department for abdominal pain, nausea. Patient reports increasing abdominal pain over the course of last 24 to 48 hours. Patient evaluated in the emergency department, labs significant for hemoglobin 10.9 hematocrit 33.1 lipase 4380, CT demonstrates noncomplicated acute pancreatitis. ED provider wishes to admit for further evaluation and management. Allergies No Known Allergies Allergy (Verified 08/13/20 08:29) Home Medications: Citalopram Hydrobromide [Celexa] 1 tab PO DAILY 03/24/20 Famotidine [Pepcid*] 20 mg PO DAILY 08/16/20 Pantoprazole [Protonix Tab*] 40 mg PO BID 08/16/20 Gabapentin 300 mg PO DAILY 09/10/20 Metoprolol Succinate 50 mg PO BID 09/10/20 Simvastatin 20 mg PO DAILY 09/10/20 Cefpodoxime Proxetil 100 mg PO BID #14 tablet 09/22/20 - Past Medical/Surgical History Diabetic: No -: Chronic pancreatitis -: Gastroesophageal reflux disease w Hiatal hernia -: Esophageal spasm -: Attention deficit disorder -: Hypertension -: Depression with anxiety -: Hyperlipidemia -: Chronic pain -: Fatty liver, nonalcoholic -: Urinary incontinence/Nephrolithiasis -: Recurrent UTI -: Hysterectomy -: Cholecystectomy -: Appendectomy -: back surgery -: knee surgery -: foot surgery -: EGD/ERCP -: Cardiac catheterization, no stent Psychosocial/ Personal History: Patient lives at home - Family History Father -: Diabetes, Cancer Notes: Type 2 Mother -: Hypertension, Diabetes Notes: Hypoglycemia Sister Notes: epilepsy - Social History Smoking Status: Never smoker Alcohol use: No CD- Drugs: No Caffeine use: Yes Review of Systems 10-point ROS is otherwise unremarkable Gastrointestinal: Nausea, Abdominal Pain Physical Examination - Physical Exam General: Alert, In no apparent distress, Oriented x3 HEENT: Atraumatic, PERRLA, Mucous membr. moist/pink, EOMI, Sclerae nonicteric Neck: Supple, 2+ carotid pulse no bruit, No LAD, Without JVD or thyroid abnormality Respiratory: Clear to auscultation bilaterally, Normal air movement Cardiovascular: Regular rate/rhythm, Normal S1 S2 Gastrointestinal: Normal bowel sounds, No rebound, No guarding, Tenderness (Epigastric tenderness) Musculoskeletal: No tenderness Integumentary: No rashes Neurological: Normal speech, Normal strength at 5/5 x4 extr, Normal tone, Normal affect - Studies Laboratory Data (last 24 hrs) 10/03/20 19:28: WBC 7.30, Hgb 10.9 L, Hct 33.1 L, Plt Count 224 10/03/20 19:28: Sodium 137, Potassium 3.8, BUN 12, Creatinine 0.71, Glucose 156 H, Total Bilirubin 0.3, AST 13 L, ALT 17, Alkaline Phosphatase 139 H, Lipase 4380 H Assessment and Plan - Plan Assessment: Acute on chronic pancreatitis GERD Hypertension Hyperlipidemia Plan: Acute on chronic pancreatitis: N.p.o., IVF, as needed pain medications. Stat lipid panel pending, CT with uncomplicated pancreatitis, patient with history of multiple bouts of pancreatitis in the past. Advance diet as tolerated. GERD: IV Protonix Hypertension: Continue medications when appropriate Hyperlipidemia: Continue medications when appropriate DVT PPX: Lovenox Code status: Full Discharge Plan: Home Plan to discharge in: Greater than 2 days - Advance Directives Does patient have a Living Will: No Does patient have a Durable POA for Healthcare: No - Code Status/Comfort Care Code Status Assessed: Yes (Full code) Critical Care: No Time Spent Managing Pts Care (In Minutes): 55
[2020-10-03] MEDS ORDERED: SODIUM CHLORIDE 0.9% 10ML INJ IV PRN (23:35)
[2020-10-03] MEDS ORDERED: HYDROMORPHONE HCL 1 MG/ML INJ ONE (23:42)
[2020-10-04] MEDS: ONDANSETRON 4 MG/2 ML VIAL IV PRN ×2 (01:30→08:17)
[2020-10-04] MEDS: D5 0.45 NS 1,000 ML IV SCH ×3 (01:31→20:57)
[2020-10-04 03:54] VITALS: BMI 34.4
[2020-10-04] MEDS: HYDROMORPHONE HCL 1 MG/ML INJ IV PRN ×3 (05:37→16:56)
[2020-10-04 06:11] LABS: Urine Appearance CLOUDY (Clear); Urine Blood NEGATIVE (Negative); Urine Color DK YELLOW (Yellow); Urine Glucose NEGATIVE (Negative); Urine Protein NEGATIVE (Negative); Urine Urobilinogen 0.2 mg/dL (0.2-1.0); Urine pH 5.5 (5.0-7.0)
[2020-10-04 06:22] LABS: Urine Bilirubin NEGATIVE (Negative); Urine Microscopic Reflex NO UMIC
[2020-10-04 06:32] LABS: Basophils % 0.4 % (0-1.3); Hematocrit 32.4 % (36.0-45.0); MPV 7.8 fL (7.6-11.3); RBC Red Blood Cell Count 4.11 M/uL (3.86-4.86)
[2020-10-04 07:01] LABS: Albumin 3.2 g/dL (3.4-5.0); Bilirubin Total 0.5 mg/dL (0.2-1.0); Potassium 4.2 mmol/L (3.5-5.1); Protein, Total 7.8 g/dL (6.4-8.2)
[2020-10-04] MEDS: ENOXAPARIN 40 MG/0.4 ML SQ SCH (08:16)
[2020-10-04] MEDS ORDERED: PANTOPRAZOLE 40 MG INJ IVP SCH (09:00)
--- NOTE | 2020-10-04 13:01 | P.PN ---
Subjective Date of Service: 10/04/20 Primary Care Provider: Dr. Powell, Dr. Smith Chief Complaint: Acute pancreatitis Patient complained of mild abdominal pain. She denies any diarrhea or nausea. No vomiting. Physical Examination - Vital Signs Temperature: 98.1 F Blood Pressure: 142/65 Pulse: 62 Respirations: 18 Pulse Ox (%): 94 - Physical Exam General: In no apparent distress, Oriented x3 HEENT: Mucous membr. moist/pink Neck: JVD not distended Respiratory: Clear to auscultation bilaterally, Normal air movement Cardiovascular: No edema, Regular rate/rhythm, Normal S1 S2 Gastrointestinal: Soft and benign, Non-distended, No tenderness Musculoskeletal: No swelling Integumentary: No rashes, No erythema Neurological: Normal strength at 5/5 x4 extr - Studies Laboratory Data (last 24 hrs) 10/03/20 19:28: Triglycerides 202 H, Cholesterol 144, HDL Cholesterol 49, Cholesterol/HDL Ratio 2.94 10/03/20 19:28: WBC 7.30, Hgb 10.9 L, Hct 33.1 L, Plt Count 224 10/03/20 19:28: Sodium 137, Potassium 3.8, BUN 12, Creatinine 0.71, Glucose 156 H, Total Bilirubin 0.3, AST 13 L, ALT 17, Alkaline Phosphatase 139 H, Lipase 4380 H Assessment And Plan - Current Problems (Diagnosis) (1) Acute on chronic pancreatitis Onset Date: 08/13/16 Current Visit: No Status: Acute (2) HTN (hypertension) Onset Date: 08/31/17 Current Visit: No Status: Chronic Qualifiers: Hypertension type: primary hypertension Qualified Code(s): I10 - Essential (primary) hypertension (3) Nephrolithiasis Current Visit: No Status: Chronic - Plan Continue supportive measures with IV hydration, pain management as needed. Start clear liquid diet. Monitor lipase daily UA negative for UTI Continue PPI Continue other home medications.
[2020-10-04] MEDS: PANTOPRAZOLE 40MG TABLET PO SCH (20:55)
[2020-10-05] MEDS: HYDROMORPHONE HCL 1 MG/ML INJ IV PRN ×2 (01:00→08:42)
[2020-10-05] MEDS: ONDANSETRON 4 MG/2 ML VIAL IV PRN (01:39)
[2020-10-05 04:37] VITALS: O2SAT 93
[2020-10-05] MEDS: D5 0.45 NS 1,000 ML IV SCH (05:35)
[2020-10-05 05:50] LABS: Absolute Lymphocytes (CBC) 1.7 K/uL (0.7-4.9); Basophils % 0.7 % (0-1.3); Hematocrit 29.8 % (36.0-45.0); Lymphocytes % 30.6 % (15.3-44.8); MPV 8.1 fL (7.6-11.3); RBC Red Blood Cell Count 3.77 M/uL (3.86-4.86)
[2020-10-05 06:22] LABS: Albumin 3.2 g/dL (3.4-5.0); Bilirubin Total 0.4 mg/dL (0.2-1.0); Potassium 4.3 mmol/L (3.5-5.1); Protein, Total 7.3 g/dL (6.4-8.2)
[2020-10-05] MEDS: PANTOPRAZOLE 40MG TABLET PO SCH (08:40)
[2020-10-05] MEDS: ENOXAPARIN 40 MG/0.4 ML SQ SCH (08:40)
[2020-10-05] MEDS ORDERED: CITALOPRAM 10 MG TABLET PO SCH (09:00)
[2020-10-05] MEDS ORDERED: GABAPENTIN 300 MG CAP PO SCH (09:00)
[2020-10-05] MEDS ORDERED: FAMOTIDINE 20 MG TAB PO SCH (09:00)
--- NOTE | 2020-10-05 11:06 | P.DS ---
Admission Date: 10/03/20 Discharge Date: 10/05/20 Primary Care Provider: Dr. Luis Jc Disposition: ROUTINE DISCHARGE Discharge Condition: FAIR Reason for Admission: Acute pancreatitis - Problems (1) Acute on chronic pancreatitis Onset Date: 08/13/16 Current Visit: No Status: Acute (2) HTN (hypertension) Onset Date: 08/31/17 Current Visit: No Status: Chronic Qualifiers: Hypertension type: primary hypertension Qualified Code(s): I10 - Essential (primary) hypertension (3) Nephrolithiasis Current Visit: No Status: Chronic Brief History of Present Illness: 74-year-old woman with history of chronic pancreatitis, GERD, frequent multi resistant urinary tract infections, hypertension, hyperlipidemia presented to the emergency department for abdominal pain, nausea. Patient reported increasing abdominal pain over the course of last 24 to 48 hours. Patient evaluated in the emergency department, lipase 4380, CT demonstrates noncomplicated acute pancreatitis. Patient admitted for further management. Hospital Course: Patient admitted to the medical floor and treated supportively with IV hydration, IV opiates p.r.n. for pain. Lipase level monitored significantly improved to almost normal. Patient became asymptomatic. She is clinically stable for discharge. Vital Signs/Physical Exam: Temp Pulse Resp BP Pulse Ox 97.1 F 61 20 182/76 H 94 10/05/20 08:00 10/05/20 08:00 10/05/20 09:12 10/05/20 08:00 10/05/20 09:12 General: In no apparent distress, Oriented x3 HEENT: Mucous membr. moist/pink Neck: JVD not distended Respiratory: Clear to auscultation bilaterally, Normal air movement Cardiovascular: Regular rate/rhythm, Normal S1 S2 Gastrointestinal: Soft and benign, Non-distended Musculoskeletal: No swelling Integumentary: No rashes Neurological: Normal speech, Normal strength at 5/5 x4 extr Laboratory Data at Discharge: WBC 5.70 K/uL (4.3-10.9) D 10/05/20 05:00 Hgb 9.7 g/dL (12.0-15.0) L 10/05/20 05:00 Hct 29.8 % (36.0-45.0) L 10/05/20 05:00 Plt Count 210 K/uL (152-406) D 10/05/20 05:00 Sodium 136 mmol/L (136-145) 10/05/20 05:00 Potassium 4.3 mmol/L (3.5-5.1) 10/05/20 05:00 BUN 9 mg/dL (7-18) 10/05/20 05:00 Creatinine 0.77 mg/dL (0.55-1.3) 10/05/20 05:00 Glucose 185 mg/dL (74-106) H 10/05/20 05:00 Magnesium 2.0 mg/dL (1.8-2.4) 10/04/20 06:00 Total Bilirubin 0.4 mg/dL (0.2-1.0) 10/05/20 05:00 AST 10 U/L (15-37) L 10/05/20 05:00 ALT 17 U/L (12-78) 10/05/20 05:00 Alkaline Phosphatase 131 U/L (45-117) H 10/05/20 05:00 Triglycerides 202 mg/dL (<150) H 10/03/20 19:28 Cholesterol 144 mg/dL (<200) 10/03/20 19:28 HDL Cholesterol 49 mg/dL (40-60) 10/03/20 19:28 Cholesterol/HDL Ratio 2.94 10/03/20 19:28 Lipase 436 U/L (73-393) H 10/05/20 05:00 Home Medications: Citalopram Hydrobromide [Celexa] 1 tab PO DAILY 03/24/20 Famotidine [Pepcid*] 20 mg PO DAILY 08/16/20 Pantoprazole [Protonix Tab*] 40 mg PO BID 08/16/20 Gabapentin 300 mg PO DAILY 09/10/20 Metformin HCl [Glucophage*] 500 mg PO DAILY 10/04/20 Diet: ADA Activity: Ad ange Followup: Dmitry Powell DO [Primary Care Provider] - Jonh Garcia [ACTIVE - CAN ADMIT] - (within 2 weeks.) Time spent managing pt's care (in minutes): 28
[2020-10-05 12:47] VITALS: BP 183/89; TEMP 97.9
== END 2020-10-05 15:12 | disposition home or self-care (01) | DRG 440 ==
LOC: ER 13:59 → 2ND 23:50
PROVIDERS: ADMIT Internal Medicine; ATTEND Internal Medicine
DX: K85.90 Acute pancreatitis without necrosis or infection, unspecified (principal); K21.9 Gastro-esophageal reflux disease without esophagitis; E78.5 Hyperlipidemia, unspecified; I10 Essential (primary) hypertension; N20.0 Calculus of kidney; K86.1 Other chronic pancreatitis; Z79.899 Other long term (current) drug therapy; Z90.710 Acquired absence of both cervix and uterus; Z90.49 Acquired absence of other specified parts of digestive tract; Z95.5 Presence of coronary angioplasty implant and graft; Z20.822 Contact with and (suspected) exposure to COVID-19
CPT/HCPCS: 36415; 74176; 80048; 80053; 80061; 80076; 81003; 83690; 83735; 85025; 93005; 96374; 96375; 99285; C9113; J1170; J1650; J2405; J7030; J7799; U0003

== ENCOUNTER 2020-10-26 16:15 | Emergency (ER) | payer OTHER ==
--- OUTSIDE RECORDS SUMMARY | 2020-10-26 16:19 | XMS REPORT | Continuity of Care Document ---
:1945 Author Organization [facility] t Address [address] [place] [address] Care Team Providers Name Role Phone [facility] Attending Clinician Unavailable [facility] Admitting Clinician Unavailable Problems This patient has no known problems. Allergies, Adverse Reactions, Alerts This patient has no known allergies or adverse reactions. Medications Ordered Filled Start Stop Current Ordering Indication Dosage Frequency Signature Comments Components Source Medication Medication Date Date Medication? Clinician (SIG) Name Name Clotrimazol Clotrimazol 2019- No Dmitry [address] [facility] Procedures This patient has no known procedures. Encounters Start End Encounter Admission Attending Care Care Encounter Source Date/Time Date/Time Type Type Clinicians Facility Department ID 2020-10-16 2020-10-16 Outpatient [facility] [id number] [facility] 2020-10-16 2020-10-16 Outpatient [facility] [id number] [facility] 2020-10-10 2020-10-10 Outpatient [facility] [id number] [facility] 2020-09-25 2020-09-25 Outpatient [facility] [id number] [facility] 2020-09-20 2020-09-20 [facility] [id number] [facility] 2020-09-04 2020-09-04 [facility] [id number] [facility] 2020-09-04 2020-09-04 [facility] [id number] [facility] 2020-09-04 2020-09-04 [facility] [id number] [facility] 2020-09-03 2020-09-03 [facility] [id number] [facility] 2020-08-27 2020-08-27 [facility] [id number] [facility] 2020-08-15 2020-08-15 [facility] [id number] [facility] 2020-08-14 2020-08-14 [facility] [id number] [facility] 2020-08-01 2020-08-01 [facility] [id number] [facility] 2020-07-24 2020-07-24 [facility] [id number] [facility] 2020-07-16 2020-07-16 [facility] [id number] [facility] 2020-07-16 2020-07-16 [facility] [id number] [facility] 2020-07-10 2020-07-10 [facility] [id number] [facility] 2020-07-05 2020-07-05 [facility] [id number] [facility] 2020-06-27 2020-06-27 Out[facility] [id number] [facility] 2020-06-24 2020-06-24 [facility] [id number] [facility] 2020-06-19 2020-06-19 Out[facility] [id number] [facility] 2020-05-20 2020-05-20 Out[facility] [id number] [facility] 2020-05-14 2020-05-14 [facility] [id number] [facility] 2020-04-19 2020-04-19 Out[facility] [id number] [facility] 2020-04-16 2020-04-16 [facility] [id number] [facility] 2019-09-29 2019-09-29 Outpatient Jaswinder Sant [id number] [facility] 13:46:00 13:46:00 [facility] Clin[facility] 2019-09-28 2019-09-28 Outpatient Brazvitaly Sant [id number] [facility] 11:00:00 11:00:[address] [facility] - Drive [facility] Medicine l Medicine Outpati ent Clinics 2019-09-28 2019-09-28 [facility] [id number] [facility] 10:30:00 10:30:[address] [employer] s - Drive [facility] Medicine l Medicine Outpati ent Clinics 2019-07-14 2019-07-14 [facility] [id number] [facility] 10:31:00 10:31:00 t Hiram Hiram Gathered[employer] s - Drive [facility] Medicine l Medicine Outpati ent Clinics 2018-12-15 2018-12-15 [facility] [id number] 16:00:00 16:00:00 t Hiram [employer] s - Drive [facility] Out[facility] Clinics 2018-09-14 2018-09-14 [facility] [id number] 15:45:00 15:45:00 t Hiram Hiram [employer] s - Drive [facility] Medicine Outpati ent Clinics 2018-08-30 2018-08-30 [facility] [id number] 08:00:00 08:00:00 t Hiram Hiram [employer] s - Drive [facility] Medicine l Medicine Outpati ent Clinics 2018-06-10 2018-06-10 [facility] [id number] 16:46:00 16:46:00 t Hiram [employer] s - Drive [facility] Medicine l Medicine Outpati ent Clinics 2018-06-09 2018-06-09 [facility] [id number] 09:18:00 09:18:00 t [facility] [address] [facility] Medicine l Medicine Outpati ent Clinics 2018-06-07 2018-06-07 [facility] [id number] [facility] 15:00:00 15:00:00 t Hiram Hiram [employer] s - Drive [facility] Medicine l Medicine Outpati ent Clinics 2018-04-25 2018-04-25 [facility] [id number] [facility] 09:15:00 09:15:00 t Hiram Hiram [employer] s - Drive [facility] Medicine l Medicine Outpati ent Clinics 2018-03-09 2018-03-09 [facility] [id number] 16:00:00 16:00:00 t C-sam - Gatheredtable [facility] 2018-03-03 2018-03-03 [facility] [id number] 08:52:00 08:52:00 t Holaira [facility] 2017-11-30 2017-11-30 [facility] [id number] [facility] 15:00:00 15:00:00 t [place]a [facility] 2017-09-30 2017-09-30 [facility] [id number] [facility] 15:00:00 15:00:00 t Specialty/U Mansi kes - Specialty rology [facility] a [facility]Urology [facility] l Clinic [facility] 2017-09-29 2017-09-29 [facility] [id number] 10:13:00 10:13:00 t [place] [facility] 2017-09-28 2017-09-28 [facility] [id number] [facility] 14:00:00 14:00:00 t C-sam Gatheredtable [facility] Results Test Description Test Time Test Comments Results Result Comments Source PHOSPHORUS 2018-11-11 05:54:00 Test Item Value Reference Range Interpretation Comme nts PHOSPHORUS (BEAKER) (test code = 604) 3.6 mg/dL 2.3-4.7 [id number] 05:54:00 Test Item Value Reference Range Interpretation Comments MAGNESIUM (BEAKER) (test code = 1.8 mg/dL 1.6-2.6 627) BASIC METABOLIC [id number] 05:54:00 Test Item Value Reference Range Interpretation [...] APPLICABLE FOR DIALYSIS PATIEN TS. HEPATIC FUNCTION [id number] 05:54:00 Test Item Value Reference Range Interpretation [...] 6-55 347) CBC W/PLT COUNT & AUTO [id number] 05:43:00 Test Item Value Reference Range Interpretation [...] PERCENT (BEAKER) (test code = 2801) PROTHROMBIN [id number] 05:42:00 Test Item Value Reference Range Interpretation [...] is2.5-3.5 for patients wiht mechanical heart valves.HEMOGLOBIN [id number] 07:50:00 Test Item Value Reference Range Interpretation Comments HEMOGLOBIN A1C (BEAKER) (test code = 7.1 % 4.3-6.1 H 368) [id number] 04:53:00 Test Item Value Reference Range Interpretation Comments PHOSPHORUS (BEAKER) (test code = 3.2 mg/dL 2.3-4.7 604) [id number] 04:53:00 Test Item Value Reference Range Interpretation Comments MAGNESIUM (BEAKER) (test code = 1.8 mg/dL 1.6-2.6 627) BASIC METABOLIC [id number] 04:53:00 Test Item Value Reference Range Interpretation [...] APPLICABLE FOR DIALYSIS PATIEN TS. HEPATIC FUNCTION [id number] 04:53:00 Test Item Value Reference Range Interpretation [...] code = 12 U/L 6-55 347) PROTHROMBIN [id number] 04:19:00 Test Item Value Reference Range Interpretation [...] mechanical heart valves.CBC W/PLT COUNT & AUTO [id number] 04:14:00 Test Item Value Reference Range Interpretation [...] 0-1 PERCENT (BEAKER) (test code = 2801) [id number] 14:44:00 Test Item Value Reference Range Interpretation Comments LIPASE (BEAKER) (test code = 749) 972 U/L 8-78 H [id number] 13:06:00 Test Item Value Reference Range Interpretation Comments PHOSPHORUS (BEAKER) (test code = 3.3 mg/dL 2.3-4.7 604) [id number] 13:06:00 Test Item Value Reference Range Interpretation Comments MAGNESIUM (BEAKER) (test code = 2.0 mg/dL 1.6-2.6 627) BASIC METABOLIC [id number] 13:06:00 Test Item Value Reference Range Interpretation [...] NOT APPLICABLE FOR DIALYSIS PATIEN TS. LIPID [id number] 13:06:00 Test Item Value Reference Range Interpretation [...] 130-159 High 160-189 Very High >=190HEPATIC FUNCTION [id number] 13:06:00 Test Item Value Reference Range Interpretation [...] 6-55 347) CBC W/PLT COUNT & AUTO [id number] 12:46:00 Test Item Value Reference Range Interpretation [...] PERCENT (BEAKER) (test code = 2801) PROTHROMBIN [id number] 12:39:00 Test Item Value Reference Range Interpretation [...]
[2020-10-26] MEDS ORDERED: NA CHLORIDE 0.9% 1,000 ML ONE (18:59)
[2020-10-26] MEDS ORDERED: ONDANSETRON 4 MG/2 ML VIAL ONE (18:59)
[2020-10-26] MEDS ORDERED: HYDROMORPHONE HCL 0.5 MG/0.5 ML INJ ONE (18:59)
[2020-10-26 19:46] LABS: Urine Blood Trace-intact (Negative); Urine Glucose Trace (Negative); Urine Protein Trace (Negative); Urine Specific Gravity 1.025 (1.005-1.030); Urine pH 5.5 (5.0-7.0)
[2020-10-26 20:21] LABS: Absolute Lymphocytes (CBC) 0.7 K/uL (0.7-4.9); Basophils % 0.4 % (0-1.3); Hematocrit 32.1 % (36.0-45.0); Lymphocytes % 13.9 % (15.3-44.8); MPV 7.3 fL (7.6-11.3); RBC Red Blood Cell Count 4.22 M/uL (3.86-4.86)
[2020-10-26 20:41] LABS: Albumin 3.3 g/dL (3.4-5.0); Bilirubin Direct 0.1 mg/dL (0-0.2); Bilirubin Total 0.4 mg/dL (0.2-1.0); Protein, Total 7.6 g/dL (6.4-8.2)
--- NOTE | 2020-10-26 21:26 | RAD REPORT ---
EXAM DESCRIPTION: CT - Stone Protocol - 10/26/2020 9:02 pm CLINICAL HISTORY: Abdominal pain. COMPARISON: September 2020 TECHNIQUE: Computed axial tomography of the abdomen pelvis was obtained without oral or IV contrast. Lack of IV and oral contrast limits evaluation of solid organs, bowel, and vessels. Coronal reformat valentin images were obtained and reviewed. All CT scans are performed using dose optimization technique as appropriate and may include automated exposure control or mA/KV adjustment according to patient size. FINDINGS: Left renal calculi are present. These do not obstruct. Bilateral extrarenal pelves. Mild l eft pyelocaliectasis. No significant hydronephrosis. A ureteral calculus is not seen. A bladder calcu dang is not noted Chronic pneumobilia. The spleen and adrenals are unremarkable. 2.1 centimeter pseudocyst within the pancreatic tail mildly decreased size. Mild stranding adjacent t he pancreatic head and uncinate. Atrophy of the remainder of the pancreas. Diverticula stem from the colon without evidence diverticulitis. A cystocele is present. Moderate hiatal hernia IMPRESSION: Nonobstructing left renal calculi. Mild pyelocaliectasis is present unchanged from the p rior exam. Mild pancreatitis. 2.1 centimeters pseudocyst pancreatic tail is mildly decreased size
--- NOTE | 2020-10-26 21:30 | EDPHYS ---
Physician Documentation [facility] Name: Isadora Bettencourt Age: 74 yrs Sex: Female : 1945 Arrival Date: 10/26/2020 Time: 16:16 Bed 24 Private MD: [facility] ED Physician Anthony Kaminsik HPI: 10/26 20:28 This 74 yrs old Female presents to ER via Wheelchair with complaints of jmm Abdominal Pain. 20:28 The patient presents with abdominal pain. Onset: The symptoms/episode began/occurred jmm gradually. The symptoms do not radiate. Associated signs and symptoms: Pertinent positives: nausea and vomiting. The symptoms are described as achy. The patient has experienced similar episodes in the past, several times. similar to previous episodes of pancreatitis. 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 - Social history:: Smoking status: Patient denies any tobacco usage or history of. ROS: 20:28 Constitutional: Negative for fever, chills, and weight loss, Cardiovascular: Negative jmm for chest pain, palpitations, and edema, Respiratory: Negative for shortness of breath, cough, wheezing, and pleuritic chest pain. 20:28 Abdomen/GI: Positive for 20:28 All other systems are negative. Exam: 20:28 Constitutional: This is a well developed, well nourished patient who is awake, alert, jmm and in no acute distress. Head/Face: atraumatic. Eyes: EOMI, no conjunctival erythema appreciated ENT: Moist Mucus Membranes Neck: Trachea midline, Supple Chest/axilla: Normal chest wall appearance and motion. Cardiovascular: Regular rate and rhythm. No edema appreciated Respiratory: Normal respirations, no respiratory distress appreciated 20:28 Skin: General appearance color normal MS/ Extremity: Moves all extremities, no obvious deformities appreciated, no edema noted to the lower extremities Neuro: Awake and alert, normal gait Psych: Behavior is normal, Mood is normal, Patient is cooperative and pleasant 20:28 Abdomen/GI: Inspection: abdomen appears normal, Bowel sounds: normal, Palpation: soft, mild abdominal tenderness, in all quadrants. Vital Signs: 16:51 BP 152 / 97; Pulse 100; Resp 20; Temp 97.7(TE); Pulse Ox 100% on R/A; Weight 84.37 kg; kg Height 5 ft. 1 in. (154.94 cm); Pain 10/10; 20:30 BP 124 / 87; Pulse 90; Resp 16; Pulse Ox 100% ; vg1 22:00 BP 136 / 84; Pulse 82; Resp 16; Pulse Ox 98% ; vg1 16:51 Body Mass Index 35.14 (84.37 kg, 154.94 cm) kg MDM: 17:53 Patient medically screened. [facility] 21:28 Data reviewed: vital signs, nurses notes. Counseling: I had a detailed discussion with dayan the patient and/or guardian regarding: the historical points, exam findings, and any diagnostic results supporting the discharge/admit diagnosis, lab results, radiology results, the need for outpatient follow up, to return to the emergency department if symptoms worsen or persist or if there are any questions or concerns that arise at home. ED course: Patient is alert and non toxic in appearance in the ED. Pain is relieved. Patient advised to follow up with GI and otherwise given strict return precautions. Patient understood and agrees with the plan of care. . 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 [facility] 10/26 17:41 Order name: Basic Metabolic Panel; Complete Time: 20:42 [facility] 10/26 17:41 Order name: CBC with Diff; Complete Time: 20:30 [facility] 10/26 17:41 Order name: Hepatic Function; Complete Time: 20:42 [facility] 10/26 17:41 Order name: Lipase; Complete Time: 20:42 [facility] 10/26 19:46 Order name: Urine Dipstick-Ancillary; Complete Time: 19:47 [facility] 10/26 20:42 Order name: CT Stone Protocol; Complete Time: 21:28 [facility] 10/26 17:41 Order name: IV Saline Lock; Complete Time: 20:25 [facility] 10/26 17:41 Order name: Labs collected and sent; Complete Time: 20:25 [facility] 10/26 17:41 Order name: Urine Dipstick-Ancillary (obtain specimen); Complete Time: 19:48 [facility] Administered Medications: 20:20 Drug: NS 0.9% 1000 ml Route: IV; Rate: 1 bolus; Site: right antecubital; vg1 22:24 Follow up: IV Status: Completed infusion; IV Intake: 500ml vg1 20:21 Drug: Zofran (Ondansetron) 4 mg Route: IVP; Site: right antecubital; vg1 22:05 Follow up: Response: No adverse reaction vg1 20:23 Drug: Dilaudid (HYDROmorphone) 0.5 mg Route: IVP; Site: right antecubital; vg1 22:04 Follow up: Response: No adverse reaction; Marked relief of symptoms vg1 22:04 Drug: Dilaudid (HYDROmorphone) 1 mg Route: IVP; Site: right antecubital; vg1 22:24 Follow up: Response: No adverse reaction; Marked relief of symptoms vg1 Disposition: 10/27 09:22 Co-signature as Attending Physician, Anthony Kaminski MD I agree with the assessment and james plan of care. Disposition Summary: 10/26/20 21:29 Discharge Ordered Location: Home [facility] Condition: Stable [facility] Diagnosis - Acute Pancreatitis [facility] Followup: [facility] - With: Dmitry Powell, DO - When: 2 - 3 days - Reason: Recheck today's complaints, Continuance of care, Re-evaluation by your physician Discharge Instructions: - Discharge Summary Sheet [facility] - Acute Pancreatitis [facility] Forms: - Medication Reconciliation Form [facility] - Thank You Letter [facility] - Antibiotic Education [facility] - Prescription Opioid Use [facility] Prescriptions: - acetaminophen-codeine 300-15 mg Oral tablet - take 1 tablet by ORAL route every 6 hours; 20 tablet; Refills: 0, Product [facility] Selection Permitted - ondansetron 4 mg Oral tablet,disintegrating - place 1 tablet by TRANSLINGUAL route every 4-6 hours; 20 tablet; Refills: 0, [facility] Product Selection Permitted Signatures: Dispatcher [employer] Anthony Peralta MD MD cha Mickail, Joel, PA PA jmm Garcia, Victoria RN RN vg1 Suhas, Mandy, RN RN kg
--- NOTE | 2020-10-26 21:30 | ER ---
Nurse's Notes [facility] Prasad Name: Isadora Bettencourt Age: 74 yrs Sex: Female : 1945 Arrival Date: 10/26/2020 Time: 16:16 Bed 24 Private MD: Dmitry Powell Diagnosis: Acute Pancreatitis Presentation: 10/26 16:51 Chief complaint: Patient states: Abdominal pain, diarrhea x 1 day. Coronavirus screen: kg Client denies travel out of the [place] in the last 14 days. At this time, unable to obtain information related to travel outside the [place] Client presents with at least one sign or symptom that may indicate coronavirus-19. Standard/surgical mask placed on the client. Provider contacted for isolation considerations. Ebola Screen: Patient negative for fever greater than or equal to 101.5 degrees Fahrenheit, and additional compatible Ebola Virus Disease symptoms Patient denies exposure to infectious person. Patient denies travel to an Ebola-affected area in the 21 days before illness onset. Initial Sepsis Screen: Does the patient meet any 2 criteria? No. Patient's initial sepsis screen is negative. Does the patient have a suspected source of infection? No. Patient's initial sepsis screen is negative. Risk Assessment: Do you want to hurt yourself or someone else? Patient reports no desire to harm self or others. Onset of symptoms was October 25, 2020. 16:51 Method Of Arrival: Wheelchair kg 16:51 Acuity: FRANDY 3 kg Triage Assessment: 16:53 General: Appears in no apparent distress. Behavior is calm, cooperative, appropriate kg for age, quiet. Pain: Complains of pain in umbilical area, right upper quadrant, left upper quadrant, right lower quadrant and left lower quadrant Pain currently is 10 out of 10 on a pain scale. at worst was 10 out of 10 on a pain scale. level that patient reports is acceptable is 5 out of 10 on a pain scale. Quality of pain is described as squeezing, Pain began 1 day ago. GI: Reports diarrhea. 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 - Social history:: Smoking status: Patient denies any tobacco usage or history of. Screenin:58 Abuse screen: Denies threats or abuse. Denies injuries from another. Nutritional kg screening: No deficits noted. Tuberculosis screening: No symptoms or risk factors identified. Fall Risk None identified. Assessment: 18:30 Reassessment: Pt has port-a-cath to right chest wall, port is accessed with no dressing jl7 over it. Pt reports that Day Surgery nurses accessed a couple of weeks ago and everyone always uses the accessed port to draw blood and give medications. Informed pt in order to provide safe care the current access will need to be removed and the port needs to be re-accessed using sterile technique per hospital protocol. . 20:10 General: Appears in no apparent distress. comfortable, Behavior is calm, cooperative. vg1 Pain: Complains of pain in left lower quadrant and right lower quadrant and left upper quadrant and right upper quadrant Pain currently is 10 out of 10 on a pain scale. Pain began 1 day ago. Noted to be grimacing, guarding. Neuro: Level of Consciousness is awake, alert, obeys commands, Oriented to person, place, time, situation. Cardiovascular: Patient's skin is warm and dry. Respiratory: Airway is patent Respiratory effort is even, unlabored. GI: Bowel sounds present X 4 quads. Abdomen is tender to palpation X 4 quads. Reports diarrhea. : No signs and/or symptoms were reported regarding the genitourinary system. EENT: No signs and/or symptoms were reported regarding the EENT system. Derm: Skin is intact, Skin is pink, warm \T\ dry. Musculoskeletal: Circulation, motion, and sensation intact. 21:00 Reassessment: Patient appears in no apparent distress at this time. No changes from vg1 previously documented assessment. Patient and/or family updated on plan of care and expected duration. Pain level reassessed. Patient is alert, oriented x 3, equal unlabored respirations, skin warm/dry/pink. 22:26 Reassessment: Patient appears in no apparent distress at this time. No changes from vg1 previously documented assessment. Patient and/or family updated on plan of care and expected duration. Pain level reassessed. Patient is alert, oriented x 3, equal unlabored respirations, skin warm/dry/pink. Vital Signs: 16:51 BP 152 / 97; Pulse 100; Resp 20; Temp 97.7(TE); Pulse Ox 100% on R/A; Weight 84.37 kg; kg Height 5 ft. 1 in. (154.94 cm); Pain 10/10; 20:30 BP 124 / 87; Pulse 90; Resp 16; Pulse Ox 100% ; vg1 22:00 BP 136 / 84; Pulse 82; Resp 16; Pulse Ox 98% ; vg1 16:51 Body Mass Index 35.14 (84.37 kg, 154.94 cm) kg ED Course: 16:16 Patient arrived in ED. am2 16:16 Dmitry Powell DO is Private Physician. am2 16:53 Triage completed. kg 16:53 Arm band placed on right wrist. kg 16:58 Patient has correct armband on for positive identification. kg 17:40 Robert Saunders PA is PHCP. jmm 17:40 Anthony Kaminski MD is Attending Physician. jmm 18:24 Darrin Rodriguez RN is Primary Nurse. [facility] 18:50 Accessed Port-a-Cath. using accessed w/ # 20 Treviño needle, ,sterile technique, per [address] protocol. No blood return. No blood return and port will not flush, needle removed. 18:55 Missed attempt(s): 24 gauge in right forearm. Bleeding controlled, band aid applied, jl7 catheter tip intact. 19:33 Report received from Darrin SCHMID. vg1 20:27 Initial lab(s) drawn, sent to lab. Inserted saline lock: 22 gauge in right antecubital vg1 area, using aseptic technique. ,using aseptic technique. completed by Fernando SCHMID Blood collected. 21:02 CT Stone Protocol In Process Unspecified. EDMS 21:29 Dmitry Powell DO is Referral Physician. jmm 22:25 No provider procedures requiring assistance completed. IV discontinued, intact, vg1 bleeding controlled, No redness/swelling at site. Pressure dressing applied. Administered Medications: 20:20 Drug: NS 0.9% 1000 ml Route: IV; Rate: 1 bolus; Site: right antecubital; vg1 22:24 Follow up: IV Status: Completed infusion; IV Intake: 500ml vg1 20:21 Drug: Zofran (Ondansetron) 4 mg Route: IVP; Site: right antecubital; vg1 22:05 Follow up: Response: No adverse reaction vg1 20:23 Drug: Dilaudid (HYDROmorphone) 0.5 mg Route: IVP; Site: right antecubital; vg1 22:04 Follow up: Response: No adverse reaction; Marked relief of symptoms vg1 22:04 Drug: Dilaudid (HYDROmorphone) 1 mg Route: IVP; Site: right antecubital; vg1 22:24 Follow up: Response: No adverse reaction; Marked relief of symptoms vg1 Intake: 22:24 IV: 500ml; Total: 500ml. vg1 Outcome: 21:29 Discharge ordered by . dayan 22:25 Discharged to home via wheelchair. vg1 22:25 Condition: stable 22:25 Discharge instructions given to patient, Instructed on discharge instructions, follow up and referral plans. medication usage, Demonstrated understanding of instructions, follow-up care, medications, Prescriptions given X 2. 22:27 Patient left the ED. vg1 Signatures: Dispatcher [employer] EDMS Robert Saunders PA PA jmm Leal, Jahala, RN RN jl7 Janene Morrissey Victoria, RN RN vg1 Mandy Dai RN RN kg Corrections: (The following items were deleted from the chart) 20:26 20:21 Zofran (Ondansetron) 4 mg IVP in left antecubital vg1 vg1
[2020-10-26] MEDS ORDERED: HYDROMORPHONE HCL 1 MG/ML INJ ONE (22:22)
[2020-10-26 22:34] VITALS: TEMP 97.7
[2020-10-26 22:36] VITALS: BP 136/84; O2SAT 98
== END 2020-10-26 22:27 | disposition home or self-care (01) ==
LOC: ER 16:15
DX: K85.90 Acute pancreatitis without necrosis or infection, unspecified (principal); I10 Essential (primary) hypertension
CPT/HCPCS: 96361; 85025; 80048; 36415; 80076; 81003; 83690; 76377; 74176; 96375; 96374; 99284; J1170 ×2; J7030; J2405

== ENCOUNTER 2020-10-27 07:49 | Emergency (ER) | payer OTHER ==
--- OUTSIDE RECORDS SUMMARY | 2020-10-27 07:53 | XMS REPORT | Continuity of Care Document ---
:1945 Author Organization [facility] t Address [address] [place] [address] Care Team Providers Name Role Phone Angelo Powell DO Primary Care Physician [facility] Attending Clinician Unavailable [facility] Admitting Clinician Unavailable Problems Condition Condition Condition Status Onset Resolution Last Treating Co mments Source Name Details Category Date Date Treatment Clinician Date Acute Acute Disease Active [facility] pancreatit pancreatit 11-09 Mansi kes - is is 00:00: Medical 00 [place] Essential Essential Disease Active [facility] hypertensi hypertensi 11-09 Mansi kes - on on 00:00: Medical 00 [place] 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 11-09 Luke s - 00:00: Medical [address] [place] [address] Allergies, Adverse Reactions, Alerts This patient has no known allergies or adverse reactions. Social History Social Habit Start Date Stop Date Quantity Comments Source History [facility] Std Drinks Medica l Center History [facility] - Alcohol Binge Medical Carl ter Sex Assigned At [facility] kes [facility] Tobacco use and 2018-11-09 2018-11-09 Never used [facility] St Nazario kes - exposure 00:00:00 00:00:00 Medical [place] Alcohol intake 2018-11-09 2018-11-09 Current [facility]k es - 00:00:00 00:00:00 non-drinker of Medical Ce nter alcohol (finding) History [facility] 2018-11-09 2018-11-[address] [facility] [...] times Center tablet daily . lipase-prot Yes [id number]{ Take [facility] ease-amylas 9-06 lipase} 36,000 [...] [facility] e 10-12 Powell applicatio [employer] - 00:00 n to Memoria :00 affected [...] 00:00:00 (1 of 1 - Medical Center POIT25_Mxklakg PCV13) [code = PNEUMOCOCCAL 65+ YRS (1 of 1 - RWEZ35_Dzvvzmm PCV13)] Future Scheduled 1997-12-28 SHINGLES VACCINES (1 [...] Medica l Center breast (procedure) [code = 487102448] Future Scheduled [address] [facility] - Test 00:00:00 malignant neoplasm of Medica l Center colon (procedure) [code = 434920601] Encounters Start End Encounter Admission Attending Care Care Encounter Source Date/Time Date/Time Type Type Clinicians Facility Department ID 2020-10-16 2020-10-16 Outpatient [facility] [id number] [facility] 2020-10-16 2020-10-16 Outpatient [facility] [id number] [facility] 2020-10-10 2020-10-10 Outpatient [facility] [id number] [facility] 2020-09-25 2020-09-25 Outpatient [facility] [id number] [facility] 2020-09-20 2020-09-20 Outpatient [facility] [id number] [facility] 2020-09-04 2020-09-04 Outpatient [facility] [id number] [facility] 2020-09-04 2020-09-04 Outpatient [facility] [id number] [facility] 2020-09-04 2020-09-04 Outpatient [facility] [id number] [facility] 2020-09-03 2020-09-03 Outpatient [facility] [id number] [facility] 2020-08-27 2020-08-27 Outpatient [facility] [id number] [facility] 2020-08-15 2020-08-15 Outpatient [facility] [id number] [facility] 2020-08-14 2020-08-14 Outpatient [facility] [id number] [facility] 2020-08-01 2020-08-01 Outpatient [facility] [id number] [facility] 2020-07-24 2020-07-24 Outpatient [facility] [id number] [facility] 2020-07-16 2020-07-16 Outpatient [facility] [id number] [facility] 2020-07-16 2020-07-16 Outpatient [facility] [id number] [facility] 2020-07-10 2020-07-10 Outpatient [facility] [id number] [facility] 2020-07-05 2020-07-05 Outpatient [facility] [id number] [facility] 2020-06-27 2020-06-27 Outpatient [facility] [id number] [facility] 2020-06-24 2020-06-24 Outpatient [facility] [id number] [facility] 2020-06-19 2020-06-19 Outpatient [facility] [id number] [facility] 2020-05-20 2020-05-20 Outpatient [facility] [id number] [facility] 2020-05-14 2020-05-14 Outpatient [facility] [id number] [facility] 2020-04-19 2020-04-19 Outpatient [facility] [id number] [facility] 2020-04-16 2020-04-16 Outpatient [facility] [id number] [facility] 2019-09-29 2019-09-29 [facility] [id number] 13:46:00 13:46:00 t [facility] [employer] [facility] Medicine l Medicine Outpati ent Clinics 2019-09-28 2019-09-28 [facility] [id number] 11:00:00 11:00:00 t [employer] [facility] - [facility] Medicine l Medicine Outpati ent Clinics 2019-09-28 2019-09-28 [facility] [id number] 10:30:00 10:30:00 t [facility] [employer] [facility] - [facility] Medicine l Medicine Outpati ent Clinics 2019-07-14 2019-07-14 [facility] [id number] 10:31:00 10:31:00 t [employer] [facility] - [facility] Medicine l Medicine Outpati ent Clinics 2018-12-15 2018-12-15 [facility] [id number] 16:00:00 16:00:00 t [facility] [employer] [facility] Medicine l Medicine Outpati ent Clinics 2018-09-14 2018-09-14 [facility] [id number] 15:45:00 15:45:00 t [employer] - [facility] Medicine l Medicine Outpati ent Clinics 2018-08-30 2018-08-30 [facility] [id number] 08:00:00 08:00:00 t [employer] [facility] - [facility] Medicine l Medicine Outpati ent Clinics 2018-06-10 2018-06-10 [facility] [id number] 16:46:00 16:46:00 t [employer] - [facility] Medicine l Medicine Outpati ent Clinics 2018-06-09 2018-06-09 [facility] [id number] 09:18:00 09:18:00 t [facility] [employer] [facility] Medicine Outpati ent Clinics 2018-06-07 2018-06-07 [facility] [id number] 15:00:00 15:00:00 t [employer] [facility] Medicine Outpati ent Clinics 2018-04-25 2018-04-25 [facility] [id number] 09:15:00 09:15:00 t [employer] [facility] Medicine Outpati ent Clinics 2018-03-09 2018-03-09 [facility] [id number] 16:00:00 16:00:00 t [employer] [facility] Medicine Outpati ent Clinics 2018-03-03 2018-03-03 [facility] [id number] 08:52:00 08:52:00 t [employer] [facility] Medicine Outpati ent Clinics 2017-11-30 2017-11-30 [facility] [id number] [facility] 15:00:00 15:00:00 t [employer] [facility] Medicine Outpati ent Clinics 2017-09-30 2017-09-30 [facility] [id number] [facility] 15:00:00 15:00:00 t Specialty/U Mansi kes - Specialty rology [facility] a /Urology Clinic l Clinic Outpati ent Clinics 2017-09-29 2017-09-29 [facility] [id number] 10:13:00 10:13:00 t [employer] [facility] Medicine Outpati ent Clinics 2017-09-28 2017-09-28 [facility] [id number] 14:00:00 14:00:00 t [employer] [facility] Medicine Outpati ent Clinics Results Test Description Test Time Test Comments Results Result Comments Source PHOSPHORUS 2018-11-11 05:54:00 Test Item Value Reference Range Interpretation Comme nts PHOSPHORUS (BEAKER) (test code = 604) 3.6 mg/dL 2.3-4.7 [id number] 05:54:00 Test Item Value Reference Range Interpretation Comments MAGNESIUM (BEAKER) (test code = 1.8 mg/dL 1.6-2.6 627) BASIC METABOLIC [id number] 05:54:00 Test Item Value Reference Range Interpretation [...] APPLICABLE FOR DIALYSIS PATIEN TS. HEPATIC FUNCTION [id number] 05:54:00 Test Item Value Reference Range Interpretation [...] 6-55 347) CBC W/PLT COUNT & AUTO [id number] 05:43:00 Test Item Value Reference Range Interpretation [...] PERCENT (BEAKER) (test code = 2801) PROTHROMBIN [id number] 05:42:00 Test Item Value Reference Range Interpretation [...] is2.5-3.5 for patients wiht mechanical heart valves.HEMOGLOBIN [id number] 07:50:00 Test Item Value Reference Range Interpretation Comments HEMOGLOBIN A1C (BEAKER) (test code = 7.1 % 4.3-6.1 H 368) [id number] 04:53:00 Test Item Value Reference Range Interpretation Comments PHOSPHORUS (BEAKER) (test code = 3.2 mg/dL 2.3-4.7 604) [id number] 04:53:00 Test Item Value Reference Range Interpretation Comments MAGNESIUM (BEAKER) (test code = 1.8 mg/dL 1.6-2.6 627) BASIC METABOLIC [id number] 04:53:00 Test Item Value Reference Range Interpretation [...] APPLICABLE FOR DIALYSIS PATIEN TS. HEPATIC FUNCTION [id number] 04:53:00 Test Item Value Reference Range Interpretation [...] code = 12 U/L 6-55 347) PROTHROMBIN [id number] 04:19:00 Test Item Value Reference Range Interpretation [...] mechanical heart valves.CBC W/PLT COUNT & AUTO [id number] 04:14:00 Test Item Value Reference Range Interpretation [...] 0-1 PERCENT (BEAKER) (test code = 2801) [id number] 14:44:00 Test Item Value Reference Range Interpretation Comments LIPASE (BEAKER) (test code = 749) 972 U/L 8-78 H [id number] 13:06:00 Test Item Value Reference Range Interpretation Comments PHOSPHORUS (BEAKER) (test code = 3.3 mg/dL 2.3-4.7 604) [id number] 13:06:00 Test Item Value Reference Range Interpretation Comments MAGNESIUM (BEAKER) (test code = 2.0 mg/dL 1.6-2.6 627) BASIC METABOLIC [id number] 13:06:00 Test Item Value Reference Range Interpretation [...] NOT APPLICABLE FOR DIALYSIS PATIEN TS. LIPID [id number] 13:06:00 Test Item Value Reference Range Interpretation [...] 130-159 High 160-189 Very High >=190HEPATIC FUNCTION [id number] 13:06:00 Test Item Value Reference Range Interpretation [...] 6-55 347) CBC W/PLT COUNT & AUTO [id number] 12:46:00 Test Item Value Reference Range Interpretation [...] PERCENT (BEAKER) (test code = 2801) PROTHROMBIN [id number] 12:39:00 Test Item Value Reference Range Interpretation [...]
--- NOTE | 2020-10-27 09:36 | RAD REPORT ---
EXAM DESCRIPTION: CT - CTHCSPWOC - 10/27/2020 8:56 am CLINICAL HISTORY: PAIN, fall, head and neck injury COMPARISON: Head C Spine Mpr Wo Con dated 08/28/2018; Head C Spine Mpr Wo Con dated 09/26/2017 TECHNIQUE: Axial 5 mm thick images of the head were obtained. Axial 2 mm thick images of the cervic al spine were obtained with sagittal and coronal reconstruction images generated and reviewed. All CT scans are performed using dose optimization technique as appropriate and may include automated exposure control or mA/KV adjustment according to patient size. FINDINGS: No intracranial hemorrhage, mass, edema or acute intracranial finding. No acute cortical b ased infarction identified. No cortical edema or sulcal effacement. Moderate severity atrophy is pres ent. Ventricles are in proportion to volume loss. Chronic ischemic changes are present throughout the cerebral white matter. Atrophy has progressed from 2018. No extra-axial fluid collections. Mastoid a ir cells and paranasal sinuses are clear. No globe or orbit abnormality seen. Right frontal scalp hem atoma is present. Underlying bone and sinus are intact. Cervical bodies are normal in height. Slight anterior subluxation C4 on C5 from facet degenerative ch aure is stable from the 2019 comparison. Alignment is otherwise normal. C5-6 and C6-7 disc space narr owing also stable. No fracture or acute bony abnormality. Multilevel facet joint hypertrophy noted. T his results mild right foraminal stenosis at C2-3, mild bilateral C3-4, C4-5 and C5-6. Central canal detail is inherently limited. No paraspinal mass or hematoma. IMPRESSION: No hemorrhage, edema or acute intracranial finding. The patient has moderate atrophy and chronic ischemic pattern has shown progression from 2018. Cervical spine degenerative changes are present with no acute finding. No significant change from 201 9 imaging.
--- NOTE | 2020-10-27 09:45 | ER ---
Nurse's Notes [facility] Name: Isadora Bettencourt Age: 74 yrs Sex: Female : 1945 Arrival Date: 10/27/2020 Time: 07:51 Bed 26 Private MD: Dmitry Powell Diagnosis: Fall due to bumping against object;Unspecified injury of head, initial encounter-hematoma, forehead;Diarrhea, unspecified Presentation: 10/27 08:26 Chief complaint: Patient states: slipped on diarrhea this morning and fell an hit her iw head. Coronavirus screen: At this time, the client does not indicate any symptoms associated with coronavirus-19. Ebola Screen: Patient negative for fever greater than or equal to 101.5 degrees Fahrenheit, and additional compatible Ebola Virus Disease symptoms Patient denies exposure to infectious person. Patient denies travel to an Ebola-affected area in the 21 days before illness onset. No symptoms or risks identified at this time. Initial Sepsis Screen: Does the patient meet any 2 criteria? No. Patient's initial sepsis screen is negative. Does the patient have a suspected source of infection? No. Patient's initial sepsis screen is negative. Risk Assessment: Do you want to hurt yourself or someone else? Patient reports no desire to harm self or others. Onset of symptoms was October 27, 2020. 08:26 Method Of Arrival: Ambulatory iw 08:26 Acuity: FRANDY 3 iw Triage Assessment: 11:00 General: Appears in no apparent distress. Behavior is calm, cooperative. 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 - Social history:: Smoking status: Patient denies any tobacco usage or history of. Screenin:44 Abuse screen:. Nutritional screening: No deficits noted. Tuberculosis screening: No iw symptoms or risk factors identified. Fall Risk Fall in past 12 months (25 points). Assessment: 09:00 General: Appears in no apparent distress. Behavior is calm, cooperative. Pain: iw Complains of pain in forehead. Neuro: Level of Consciousness is awake, alert, obeys commands, Oriented to person, place, time, situation, Moves all extremities. Vital Signs: 08:26 BP 165 / 88; Pulse 71; Resp 16; Temp 98.3; Pulse Ox 97% on R/A; iw ED Course: 07:51 Patient arrived in ED. as 07:51 Dmitry Powell DO is Private Physician. as 07:56 [facility] la1 07:59 Anthony Kaminski MD is Attending Physician. james 08:03 Mdady Lopez, RN is Primary Nurse. iw 08:27 Triage completed. iw 08:56 CT Head C Spine In Process Unspecified. EDMS 09:00 Arm band placed on. iw 09:00 Patient has correct armband on for positive identification. iw 09:45 Dmitry Powell DO is Referral Physician. james 11:44 No provider procedures requiring assistance completed. Patient did not have IV access iw during this emergency room visit. Administered Medications: 10:27 Drug: LoMOTIL (diphenoxylate-atropine) 2 tabs Route: PO; iw 10:45 Follow up: Response: No adverse reaction iw Outcome: 09:45 Discharge ordered by . james 11:44 Discharged to home ambulatory, with family. iw 11:44 Condition: good 11:44 Discharge instructions given to patient, Instructed on discharge instructions, follow up and referral plans. Demonstrated understanding of instructions, follow-up care. 11:45 Patient left the ED. iw Signatures: Dispatcher [employer] Anthony Peralta MD MD cha Martinez, Amelia as Maddy Lopez RN RN iw Wilfredo Phillips FNP-C ACUTE CARE SURGEON-[facility]
--- NOTE | 2020-10-27 09:45 | EDPHYS ---
Physician Documentation [facility] Name: Isadora Bettencourt Age: 74 yrs Sex: Female : 1945 Arrival Date: 10/27/2020 Time: 07:51 Bed 26 Private MD: Andre [facility] ED Physician Anthony Kaminski HPI: 10/27 08:30 This 74 yrs old Female presents to ER via Ambulatory with complaints of Fall james Injury. 08:30 Details of fall: The patient fell from an upright position, while walking. Onset: The james symptoms/episode began/occurred just prior to arrival. Associated injuries: The patient sustained injury to the head, contusion, hematoma, pain, swelling. Severity of symptoms: At their worst the symptoms were mild, in the emergency department the symptoms are unchanged. The patient has not experienced similar symptoms in the past. 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 - Social history:: Smoking status: Patient denies any tobacco usage or history of. ROS: 08:30 Constitutional: Negative for fever, chills, and weight loss, Eyes: Negative for injury, james pain, redness, and discharge, ENT: Negative for injury, pain, and discharge, Neck: Negative for injury, pain, and swelling, Cardiovascular: Negative for chest pain, palpitations, and edema, Respiratory: Negative for shortness of breath, cough, wheezing, and pleuritic chest pain, Abdomen/GI: Negative for abdominal pain, nausea, vomiting, diarrhea, and constipation, Back: Negative for injury and pain, : Negative for injury, bleeding, discharge, and swelling, MS/Extremity: Negative for injury and deformity, Skin: Negative for injury, rash, and discoloration, Psych: Negative for depression, anxiety, suicide ideation, homicidal ideation, and hallucinations, Allergy/Immunology: Negative for hives, rash, and allergies, Endocrine: Negative for neck swelling, polydipsia, polyuria, polyphagia, and marked weight changes, Hematologic/Lymphatic: Negative for swollen nodes, abnormal bleeding, and unusual bruising. 08:30 Neuro: Positive for headache, weakness. Exam: 08:30 Constitutional: This is a well developed, well nourished patient who is awake, alert, james and in no acute distress. Eyes: Pupils equal round and reactive to light, extra-ocular motions intact. Lids and lashes normal. Conjunctiva and sclera are non-icteric and not injected. Cornea within normal limits. Periorbital areas with no swelling, redness, or edema. ENT: Nares patent. No nasal discharge, no septal abnormalities noted. Tympanic membranes are normal and external auditory canals are clear. Oropharynx with no redness, swelling, or masses, exudates, or evidence of obstruction, uvula midline. Mucous membranes moist. Neck: Trachea midline, no thyromegaly or masses palpated, and no cervical lymphadenopathy. Supple, full range of motion without nuchal rigidity, or vertebral point tenderness. No Meningismus. Chest/axilla: Normal chest wall appearance and motion. Nontender with no deformity. No lesions are appreciated. Cardiovascular: Regular rate and rhythm with a normal S1 and S2. No gallops, murmurs, or rubs. Normal PMI, no JVD. No pulse deficits. Respiratory: Lungs have equal breath sounds bilaterally, clear to auscultation and percussion. No rales, rhonchi or wheezes noted. No increased work of breathing, no retractions or nasal flaring. Back: No spinal tenderness. No costovertebral tenderness. Full range of motion. Female : Normal external genitalia. Skin: Warm, dry with normal turgor. Normal color with no rashes, no lesions, and no evidence of cellulitis. MS/ Extremity: Pulses equal, no cyanosis. Neurovascular intact. Full, normal range of motion. Neuro: Awake and alert, GCS 15, oriented to person, place, time, and situation. Cranial nerves II-XII grossly intact. Motor strength 5/5 in all extremities. Sensory grossly intact. Cerebellar exam normal. Normal gait. Psych: Awake, alert, with orientation to person, place and time. Behavior, mood, and affect are within normal limits. 08:30 Constitutional: The patient appears alert, awake, comfortable. 08:30 Head/face: Noted is contusion, hematoma, that is moderate, of the forehead. 08:30 Abdomen/GI: Inspection: distension, that is mild. Vital Signs: 08:26 BP 165 / 88; Pulse 71; Resp 16; Temp 98.3; Pulse Ox 97% on R/A; iw MDM: 08:04 Patient medically screened. james 08:35 Differential diagnosis: closed head injury, contusion, multiple trauma, sprain, strain. james Data reviewed: vital signs, nurses notes, radiologic studies, CT scan. Data interpreted: ekg monitor tech: rate is 71 beats/min, rhythm is regular, Pulse oximetry: on room air is 97 %. Counseling: I had a detailed discussion with the patient and/or guardian regarding: the historical points, exam findings, and any diagnostic results supporting the discharge/admit diagnosis, lab results, radiology results, the need for outpatient follow up, for definitive care, 10/27 08:30 Order name: CT Head C Spine; Complete Time: 09:44 james 10/27 08:30 Order name: Ice pack; Complete Time: 09:59 james 10/27 08:40 Order name: PO challenge: gatorade; Complete Time: 09:59 james Administered Medications: 10:27 Drug: LoMOTIL (diphenoxylate-atropine) 2 tabs Route: PO; iw 10:45 Follow up: Response: No adverse reaction iw Disposition Summary: 10/27/20 09:45 Discharge Ordered Location: Home james Problem: new james Symptoms: have improved james Condition: Stable james Diagnosis - Fall due to bumping against object james - Unspecified injury of head, initial encounter - hematoma, forehead james - Diarrhea, unspecified james Followup: james - With: - When: 2 - 3 days - Reason: Recheck today's complaints, Continuance of care, Re-evaluation by your physician Discharge Instructions: - Discharge Summary Sheet james - Food Choices to Help Relieve Diarrhea, Adult james - Diarrhea, Adult james - Head Injury, Adult james - Diarrhea, Adult, [id number] james - Fall Prevention in the Home, Adult james - Fall Prevention in the Home, Adult, [id number] [facility] Forms: - Medication Reconciliation Form james - Thank You Letter james - Antibiotic Education james - Prescription Opioid Use james Prescriptions: - Lomotil 2.5-0.025 mg Oral Tablet - take 1 tablet by ORAL route every 6 hours As needed; 20 tablet; Refills: 0, james Product Selection Permitted Signatures: Dispatcher [employer] Anthony Peralta MD MD cha Williams, Irene, RN RN iw
[2020-10-27] MEDS ORDERED: DIPHENOX/ATROP SULF 1 TAB PO ONE (10:40)
[2020-10-27 11:48] VITALS: BP 165/88; TEMP 98.3; O2SAT 97
== END 2020-10-27 11:45 | disposition home or self-care (01) ==
LOC: ER 07:49
DX: S00.83XA Contusion of other part of head, initial encounter (principal); R19.7 Diarrhea, unspecified; W18.00XA Striking against unspecified object with subsequent fall, initial encounter; Y93.01 Activity, walking, marching and hiking; I10 Essential (primary) hypertension
CPT/HCPCS: 70450; 72125; 99283

== ENCOUNTER 2020-12-16 22:43 | Inpatient (IN) | payer OTHER ==
[2020-12-17 00:01] LABS: Urine Blood 1+ (Negative); Urine Glucose Trace (Negative); Urine Protein 1+ (Negative); Urine Specific Gravity 1.025 (1.005-1.030); Urine pH 7.5 (5.0-7.0)
[2020-12-17] MEDS ORDERED: PROMETHAZINE INJ 25 MG/ML AMP ONE ×2 (00:03→01:14)
[2020-12-17] MEDS ORDERED: NA CHLORIDE 0.9% 50 ML ONE ×2 (00:04→01:15)
[2020-12-17] MEDS ORDERED: NA CHLORIDE 0.9% 1,000 ML ONE ×2 (00:04→01:15)
[2020-12-17] MEDS ORDERED: HYDROMORPHONE HCL 1 MG/ML INJ ONE ×2 (00:04→01:15)
[2020-12-17] MEDS ORDERED: FAMOTIDINE 20 MG/2 ML VIAL IV ONE (00:04)
[2020-12-17 00:16] LABS: Protime INR 1.03
[2020-12-17 00:17] LABS: Absolute Lymphocytes (CBC) 2.2 K/uL (0.7-4.9); Basophils % 0.7 % (0-1.3); Hematocrit 34.3 % (36.0-45.0); Lymphocytes % 26.7 % (15.3-44.8); MPV 8.1 fL (7.6-11.3); RBC Red Blood Cell Count 4.43 M/uL (3.86-4.86)
--- NOTE | 2020-12-17 00:27 | ER ---
Nurse's Notes [facility] Name: Isadora Bettencourt Age: 74 yrs Sex: Female : 1945 Arrival Date: 12/16/2020 Time: 22:47 Bed 5 Private MD: Diagnosis: Abdominal pain, Generalized;Vomiting;Other chronic pancreatitis;Abdominal tenderness;UTI/ Urinary tract infection, site not specified;Pyelonephritis acute;Pseudocyst of pancreas-small, stable Presentation: 12/16 22:50 Chief complaint: Patient states: rt upper abd pain \T\ nausea. denies vomiting and sj1 diarrhea. Coronavirus screen: Vaccine status: Patient reports receiving the 2nd dose of the covid vaccine. Patient reports receiving the 1st dose of the Covid vaccine. Ebola Screen: Patient negative for fever greater than or equal to 101.5 degrees Fahrenheit, and additional compatible Ebola Virus Disease symptoms Patient denies exposure to infectious person. Patient denies travel to an Ebola-affected area in the 21 days before illness onset. No symptoms or risks identified at this time. Initial Sepsis Screen: Does the patient meet any 2 criteria? No. Patient's initial sepsis screen is negative. Does the patient have a suspected source of infection? No. Patient's initial sepsis screen is negative. Risk Assessment: Do you want to hurt yourself or someone else? Patient reports no desire to harm self or others. Onset of symptoms was December 16, 2020. 22:50 Method Of Arrival: Wheelchair sj1 22:50 Acuity: FRANDY 2 sj1 12/17 01:00 Note Pt becoming confused. Follows commands. Face symmetry wnl. Pt received Dilaudid x df1 2. Provider notified. Provider at bedside for assessment. 01:40 Note Admitting provider at bedside for assessment. df1 02:48 Note provider notified of elevated BP. Awaiting CT head results before addressing BP. df1 03:[address] results returned. ER provider states he will let the Admitting provider address df1 BP. Nurse notified in report. Triage Assessment: 12/16 22:54 General: Appears in no apparent distress. Behavior is calm, cooperative, appropriate sj1 for age. Pain: Complains of pain in RUQ. GI: Reports upper abdominal pain, nausea. 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 - Social history:: Smoking status: Patient/guardian denies using tobacco, the patient reports quitting approximately 20 years ago. - Family history:: not pertinent. Screenin/11 22:56 Abuse screen: Denies threats or abuse. Denies injuries from another. Nutritional sj1 screening: No deficits noted. Tuberculosis screening: No symptoms or risk factors identified. Fall Risk None identified. Assessment: 12/17 00:09 General: Appears uncomfortable, Behavior is calm, cooperative. Pain: Complains of pain df1 in right upper quadrant Pain does not radiate. Pain began suddenly, 1 hour ago. Neuro: No deficits noted. Cardiovascular: No deficits noted. Respiratory: Airway is patent Trachea midline Respiratory effort is even, unlabored, Respiratory pattern is regular, symmetrical, Breath sounds are clear bilaterally. GI: Bowel sounds present X 4 quads. Abd is soft in epigastric area, right upper quadrant and abdomen diffusely Abdomen is tender to palpation Guarding noted Reports upper abdominal pain, nausea. : Urine is cloudy. Musculoskeletal: No deficits noted. 00:30 Neuro: Level of Consciousness is awake, alert, obeys commands. df1 01:00 Neuro: Level of Consciousness is alert, obeys commands, confused. df1 02:21 Neuro: Level of Consciousness is awake, alert, obeys commands, confused. df1 Vital Signs: 12/16 22:50 BP 196 / 138; Pulse 78; Resp 19 S; Temp 98.6; Pulse Ox 100% on R/A; Weight 83.01 kg sj1 (R); Height 5 ft. 1 in. (154.94 cm) (R); Pain 10/10; 12/17 01:22 BP 179 / 98; Pulse 79; Resp 18; Pulse Ox 96% on R/A; Pain 7/10; df1 02:47 BP 183 / 100; Pulse 69; Resp 18; Pulse Ox 100% on R/A; Pain 0/10; df1 03:24 BP 167 / 111; Pulse 68; Resp 18; Pulse Ox 97% on R/A; Pain 0/10; df1 11 22:50 Body Mass Index 34.58 (83.01 kg, 154.94 cm) [facility] ED Course: 12/16 22:47 Patient arrived in ED. bp1 22:54 Triage completed. sj1 22:54 Arm band placed on right wrist. sj1 22:56 Patient has correct armband on for positive identification. sj1 22:57 Anthony Kaminski MD is Attending Physician. james 23:38 XRAY Chest (1 view) In Process Unspecified. EDMS 12/17 00:03 Basic Metabolic Panel Sent. df1 00:03 CT Abd/Pelvis - IV Contrast Only Sent. df1 00:06 Amylase, Serum Sent. df1 00:06 Lipase Sent. df1 00:06 Urine Culture Sent. df1 00:06 Basic Metabolic Panel Sent. df1 00:06 CBC with Diff Sent. df1 00:06 LFT's Sent. df1 00:07 Magnesium Sent. df1 00:07 NT PRO-BNP Sent. df1 00:07 PT-INR Sent. df1 00:07 Troponin (emerg Dept Use Only) Sent. df1 00:07 Accessed Port-a-Cath. using accessed w/ # 20 Treviño needle, Clean \T\ dry. Dressing df1 intact. Good blood return. 00:22 CT Abd/Pelvis - IV Contrast Only In Process Unspecified. EDMS 00:24 Willy Santacruz DO is Hospitalizing Provider. james 00:25 Jocelyn Cortez is Primary Nurse. df1 00:26 SARS-COV-2 RT PCR Sent. df1 00:35 Dobson cath inserted, using sterile technique, 16 Fr., by me. df1 02:11 Head Brain Wo Cont CT Sent. df1 02:14 Noise minimized. Warm blanket given. Head of bed lowered. df1 03:45 No provider procedures requiring assistance completed. Patient admitted, IV remains in df1 place. Administered Medications: 12/16 23:50 Drug: Phenergan (promethazine) 12.5 mg Route: IVP; Site: Port-a-cath; df1 12/17 02:13 Follow up: Response: Nausea is decreased df1 12/16 23:55 Drug: Pepcid (famotidine) 20 mg Route: IVP; Site: Port-a-cath; df1 12/17 02:12 Follow up: Response: No adverse reaction df1 12/16 23:55 Drug: Dilaudid (HYDROmorphone) 1 mg Route: IVP; Site: Port-a-cath; df1 12/17 02:12 Follow up: Response: No adverse reaction; Pain is decreased df1 00:05 Drug: NS 0.9% 1000 ml Route: IV; Rate: 1 bolus; Site: Port-a-cath; df1 01:46 Follow up: IV Status: Completed infusion; IV Intake: 1000ml df1 00:46 Drug: Rocephin (cefTRIAXone) 1 grams Route: IV; Rate: per protocol; Site: Port-a-cath; df1 01:21 Follow up: Response: No adverse reaction; IV Status: Completed infusion; IV Intake: [id number] 01:00 Drug: Dilaudid (HYDROmorphone) 1 mg Route: IVP; Site: Port-a-cath; df1 01:46 Follow up: Response: No adverse reaction; Pain is decreased df1 01:00 Drug: Phenergan (promethazine) 12.5 mg Route: IVP; Site: Port-a-cath; df1 01:46 Follow up: Response: Nausea is decreased df1 01:04 CANCELLED (Duplicate Order): D5-1/2 NS 1000 ml IV at 100 ml/hr continuous james 01:45 Drug: NS 0.9% 1000 ml Route: IV; Rate: 1 bolus; Site: Port-a-cath; df1 03:44 Follow up: IV Status: Completed infusion; IV Intake: 1000ml df1 01:45 Drug: NS 0.9% 1000 ml Route: IV; Rate: 1 bolus; Site: Port-a-cath; df1 03:25 Follow up: IV Status: Completed infusion; IV Intake: 1000ml df1 02:09 Drug: Meropenem 1 grams Route: IV; Rate: per protocol; Site: Port-a-cath; df1 03:25 Follow up: IV Status: Completed infusion; IV Intake: 100ml df1 Intake: 01:21 IV: 10ml; Total: 10ml. df1 01:46 IV: 1000ml; Total: 1010ml. df1 03:25 IV: 100ml; Total: 1110ml. df1 03:25 IV: 1000ml; Total: 2110ml. df1 03:44 IV: 1000ml; Total: 3110ml. df1 Outcome: 00:27 Decision to Hospitalize by Provider. james 03:45 Admitted to Med/surg accompanied by tech. df1 03:45 Condition: stable 03:45 Instructed on the need for admit. 03:46 Patient left the ED. df1 Signatures: Dispatcher [employer] EDMS Anthony Kaminski MD MD cha Paniauga, Brittany bp1 Furlich, Dawn df1 Renee Trejo, RN RN sj1 Corrections: (The following items were deleted from the chart) 12/16 23:01 22:50 Pulse 78bpm; Resp 19bpm; Spontaneous; Pulse Ox 100% RA; Temp 98.6F; 83.01 kg sj1 Reported; Height 5 ft. 1 in. Reported; BMI: 34.5; Pain 12/15; sj1 12/17 00:11 00:03 CORONAVIRUS+ drawn and sent. df1 EDOK 02:16 02:15 Dobson cath inserted, using sterile technique, 16 Fr., by ny, df1 df1 02:20 02:20 Neuro: Level of Consciousness is awake, alert, obeys commands, df1 df1
--- NOTE | 2020-12-17 00:28 | EDPHYS ---
Physician Documentation [facility] Name: Isadora Bettencourt Age: 74 yrs Sex: Female : 1945 Arrival Date: 12/16/2020 Time: 22:47 Bed 5 Private MD: Anthony Valera HPI: 12/16 23:17 This 74 yrs old Female presents to ER via Wheelchair with complaints of james Abdominal Pain. 23:17 The patient presents with abdominal pain in the epigastric area, in the upper abdomen, james abdominal distention in the upper abdomen, in the lower abdomen. Onset: The symptoms/episode began/occurred 1 day(s) ago. The patient presents to the emergency department with nausea, vomiting, abdominal pain, of the epigastric area, right upper quadrant and left upper quadrant. Onset: The symptoms/episode began/occurred 1 day(s) ago. Possible causes: unknown. The symptoms are aggravated by movement, pressure, food , The symptoms are alleviated by nothing. remaining still. Associated signs and symptoms: The patient has no apparent associated signs or symptoms. The symptoms do not radiate. Associated signs and symptoms: Pertinent positives: nausea and vomiting. Modifying factors: The symptoms are alleviated by remaining still, the symptoms are aggravated by movement, pressure, touching the area. 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 - Social history:: Smoking status: Patient/guardian denies using tobacco, the patient reports quitting approximately 20 years ago. - Family history:: not pertinent. ROS: 12/16 23:17 Constitutional: Negative for fever, chills, and weight loss, Eyes: Negative for injury, james pain, redness, and discharge, ENT: Negative for injury, pain, and discharge, Neck: Negative for injury, pain, and swelling, Cardiovascular: Negative for chest pain, palpitations, and edema, Respiratory: Negative for shortness of breath, cough, wheezing, and pleuritic chest pain, Back: Negative for injury and pain, : Negative for injury, bleeding, discharge, and swelling, MS/Extremity: Negative for injury and deformity, Skin: Negative for injury, rash, and discoloration, Neuro: Negative for headache, weakness, numbness, tingling, and seizure, Psych: Negative for depression, anxiety, suicide ideation, homicidal ideation, and hallucinations, Allergy/Immunology: Negative for hives, rash, and allergies, Endocrine: Negative for neck swelling, polydipsia, polyuria, polyphagia, and marked weight changes. Abdomen/GI: Positive for abdominal pain, nausea and vomiting, of the epigastric area, right upper quadrant and left upper quadrant. Exam: 23:17 Constitutional: This is a well developed, well nourished patient who is awake, alert, james and in no acute distress. Head/Face: Normocephalic, atraumatic. Eyes: Pupils equal round and reactive to light, extra-ocular motions intact. Lids and lashes normal. Conjunctiva and sclera are non-icteric and not injected. Cornea within normal limits. Periorbital areas with no swelling, redness, or edema. ENT: Nares patent. No nasal discharge, no septal abnormalities noted. Tympanic membranes are normal and external auditory canals are clear. Oropharynx with no redness, swelling, or masses, exudates, or evidence of obstruction, uvula midline. Mucous membranes moist. Neck: Trachea midline, no thyromegaly or masses palpated, and no cervical lymphadenopathy. Supple, full range of motion without nuchal rigidity, or vertebral point tenderness. No Meningismus. Chest/axilla: Normal chest wall appearance and motion. Nontender with no deformity. No lesions are appreciated. Cardiovascular: Regular rate and rhythm with a normal S1 and S2. No gallops, murmurs, or rubs. Normal PMI, no JVD. No pulse deficits. Respiratory: Lungs have equal breath sounds bilaterally, clear to auscultation and percussion. No rales, rhonchi or wheezes noted. No increased work of breathing, no retractions or nasal flaring. Back: No spinal tenderness. No costovertebral tenderness. Full range of motion. Female : Normal external genitalia. Skin: Warm, dry with normal turgor. Normal color with no rashes, no lesions, and no evidence of cellulitis. MS/ Extremity: Pulses equal, no cyanosis. Neurovascular intact. Full, normal range of motion. Neuro: Awake and alert, GCS 15, oriented to person, place, time, and situation. Cranial nerves II-XII grossly intact. Motor strength 5/5 in all extremities. Sensory grossly intact. Cerebellar exam normal. Normal gait. Psych: Awake, alert, with orientation to person, place and time. Behavior, mood, and affect are within normal limits. 23:17 Abdomen/GI: Inspection: distension, that is mild, Bowel sounds: active, in the right upper quadrant, left upper quadrant, right lower quadrant and left lower quadrant, Palpation: moderate abdominal tenderness, in the epigastric area, right upper quadrant and left upper quadrant, Liver: no appreciated palpable abnormalities, Hernia: not appreciated. 12/17 00:33 ECG was reviewed by the Attending Physician. [facility] Vital Signs: 12/16 22:50 BP 196 / 138; Pulse 78; Resp 19 S; Temp 98.6; Pulse Ox 100% on R/A; Weight 83.01 kg [facility] (R); Height 5 ft. 1 in. (154.94 cm) (R); Pain 10/10; 12/17 01:22 BP 179 / 98; Pulse 79; Resp 18; Pulse Ox 96% on R/A; Pain 7/10; df1 02:47 BP 183 / 100; Pulse 69; Resp 18; Pulse Ox 100% on R/A; Pain 0/10; df1 03:24 BP 167 / 111; Pulse 68; Resp 18; Pulse Ox 97% on R/A; Pain 0/10; df1 12/16 22:50 Body Mass Index 34.58 (83.01 kg, 154.94 cm) [facility] MDM: 12/16 22:57 Patient medically screened. [facility] 23:20 Differential diagnosis: Nonspecific abd pain, cholecystitis, pancreatitis, james diverticulitis, viral gastroenteritis, gastroenteritis, AAA, Cholelithiasis, gastritis, gastroesophageal reflux disease, Irritable bowel syndrome, Mesenteric ischemia or infarction, non-specific abd pain, pancreatitis, Peptic Ulcer Disease, Perf. Duodenal Ulcer, urinary tract infection. Data reviewed: vital signs, nurses notes, lab test result(s), EKG, radiologic studies, CT scan, plain films. Data interpreted: gambling monitor: rate is 78 beats/min, rhythm is regular, Pulse oximetry: on room air is 100 %. Test interpretation: by ED physician or midlevel provider: ECG, plain radiologic studies. Counseling: I had a detailed discussion with the patient and/or guardian regarding: the historical points, exam findings, and any diagnostic results supporting the discharge/admit diagnosis, the presence of at least one elevated blood pressure reading (>120/80) during this emergency department visit, lab results, radiology results. 12/16 23:15 Order name: Basic Metabolic Panel [facility] 12/16 23:15 Order name: CBC with Diff; Complete Time: 02:01 [facility] 12/16 23:15 Order name: LFT's; Complete Time: 00:49 [facility] 12/16 23:15 Order name: Magnesium; Complete Time: 00:49 [facility] 12/16 23:15 Order name: NT PRO-BNP; Complete Time: 00:49 [facility] 12/16 23:15 Order name: PT-INR; Complete Time: 00:23 [facility] 12/16 23:15 Order name: Troponin (emerg Dept Use Only); Complete Time: 00:49 [facility] 12/16 23:15 Order name: Urine Culture [facility] 12/16 23:15 Order name: Lipase; Complete Time: 00:49 [facility] 12/16 23:15 Order name: Amylase, Serum; Complete Time: 00:49 [facility] 12/16 23:15 Order name: Basic Metabolic Panel; Complete Time: 00:49 [facility] 12/17 00:02 Order name: Urine Dipstick-Ancillary; Complete Time: 00:02 [facility] 12/17 00:11 Order name: SARS-COV-2 RT PCR; Complete Time: 02:01 [facility] 12/16 23:15 Order name: XRAY Chest (1 view) [facility] 12/16 23:15 Order name: CT Abd/Pelvis - IV Contrast Only [facility] 12/17 00:44 Order name: CBC Smear Scan; Complete Time: 02:01 [facility] 12/17 00:51 Order name: Urine Microscopic Only; Complete Time: 02:01 [facility] 12/17 01:11 Order name: Lipid Profile; Complete Time: 02:01 [facility] 12/17 01:38 Order name: Head Brain Wo Cont CT [facility] 12/17 03:34 Order name: CREATININE WHOLE BLOOD EDMS 12/16 23:15 Order name: EKG; Complete Time: 23:22 [facility] 12/16 23:15 Order name: Cardiac monitoring; Complete Time: 00:06 [facility] 12/16 23:15 Order name: EKG - Nurse/Tech; Complete Time: 00:37 [facility] 12/16 23:15 Order name: IV Saline Lock; Complete Time: 00:06 [facility] 12/16 23:15 Order name: Labs collected and sent; Complete Time: 00:06 [facility] 12/16 23:15 Order name: O2 Per Protocol; Complete Time: 00:06 [facility] 12/16 23:15 Order name: O2 Sat Monitoring; Complete Time: 00:06 [facility] 12/16 23:15 Order name: Urine Dipstick-Ancillary (obtain specimen); Complete Time: 00:06 [facility] 12/17 00:50 Order name: NPO; Complete Time: 01:21 hi EC/12 00:33 Rate is 80 beats/min. Rhythm is regular. QRS Perry is Normal. [place] interval is normal. QRS james interval is normal. QT interval is normal. No Q waves. T waves are Normal. No ST changes noted. Clinical impression: NSR w/ Non-specific ST/T Changes and No evidence of ischemia. Interpreted by me. Reviewed by me. Administered Medications: 12/16 23:50 Drug: Phenergan (promethazine) 12.5 mg Route: IVP; Site: Port-a-cath; df1 12/17 02:13 Follow up: Response: Nausea is decreased df1 12/16 23:55 Drug: Pepcid (famotidine) 20 mg Route: IVP; Site: Port-a-cath; df1 12/17 02:12 Follow up: Response: No adverse reaction df1 12/16 23:55 Drug: Dilaudid (HYDROmorphone) 1 mg Route: IVP; Site: Port-a-cath; df1 12/17 02:12 Follow up: Response: No adverse reaction; Pain is decreased df1 00:05 Drug: NS 0.9% 1000 ml Route: IV; Rate: 1 bolus; Site: Port-a-cath; df1 01:46 Follow up: IV Status: Completed infusion; IV Intake: 1000ml df1 00:46 Drug: Rocephin (cefTRIAXone) 1 grams Route: IV; Rate: per protocol; Site: Port-a-cath; df1 01:21 Follow up: Response: No adverse reaction; IV Status: Completed infusion; IV Intake: [id number] 01:00 Drug: Dilaudid (HYDROmorphone) 1 mg Route: IVP; Site: Port-a-cath; df1 01:46 Follow up: Response: No adverse reaction; Pain is decreased df1 01:00 Drug: Phenergan (promethazine) 12.5 mg Route: IVP; Site: Port-a-cath; df1 01:46 Follow up: Response: Nausea is decreased df1 01:04 CANCELLED (Duplicate Order): D5-1/2 NS 1000 ml IV at 100 ml/hr continuous james 01:45 Drug: NS 0.9% 1000 ml Route: IV; Rate: 1 bolus; Site: Port-a-cath; df1 03:44 Follow up: IV Status: Completed infusion; IV Intake: 1000ml df1 01:45 Drug: NS 0.9% 1000 ml Route: IV; Rate: 1 bolus; Site: Port-a-[facility]; df1 03:25 Follow up: IV Status: Completed infusion; IV Intake: 1000ml df1 02:09 Drug: Meropenem 1 grams Route: IV; Rate: per protocol; Site: Port-a-[facility]; df1 03:25 Follow up: IV Status: Completed infusion; IV Intake: 100ml df1 Disposition Summary: 12/17/20 00:27 Hospitalization Ordered Hospitalization Status: Inpatient Admission james Provider: Willy Santacruz cha Location: Telemetry/MedSurg (Inpatient) james Condition: Fair james Problem: new james Symptoms: have improved james Bed/Room Type: Standard james Room Assignment: 221(12/17/20 02:19) mw Diagnosis - Abdominal pain, Generalized james - Vomiting james - Other chronic pancreatitis james - Abdominal tenderness james - UTI/ Urinary tract infection, site not specified james - Pyelonephritis acute james - Pseudocyst of pancreas - small, stable james Forms: - Medication Reconciliation Form james - SBAR form james Signatures: Dispatcher [employer] EDMS Mattie Dale RN RN mw Anderson, Corey, MD MD cha Roszak, Josh, PA PA [id number] Wilfredo Phillips, CARBON ACCOUNTANT-C CARBON ACCOUNTANT-Cla1 Jocelyn Cortez df1 Renee Trejo RN RN sj1 Corrections: (The following items were deleted from the chart) 12/16 23:37 23:16 Chest Single View ordered. EDMS EDMS 12/17 00:11 12/16 23:16 CORONAVIRUS+LAB.MARISOL ordered. EDMS EDMS 12/17 01:04 00:50 D5-1/2 NS 1000 ml IV at 100 ml/hr continuous ordered. la1 [facility] 01:07 00:27 Biliary acute pancreatitis [facility] 02:19 00:27 james burleson
[2020-12-17 00:41] LABS: ALT/SGPT 14 U/L (12-78); AST/SGOT 10 U/L (15-37); Albumin 3.3 g/dL (3.4-5.0); Alkaline Phosphatase 124 U/L (45-117); BUN Blood Urea Nitrogen 10 mg/dL (7-18); Bicarbonate 29 mmol/L (21-32); Bilirubin Direct < 0.1 mg/dL (0-0.2); Bilirubin Total 0.3 mg/dL (0.2-1.0); Glucose Level 175 mg/dL (74-106); Lipase 17811 U/L (73-393); Magnesium 2.2 mg/dL (1.8-2.4); NT PRO-BNP 274 pg/mL (<125); Potassium 3.9 mmol/L (3.5-5.1); Protein, Total 7.6 g/dL (6.4-8.2); Sodium Level 138 mmol/L (136-145); Troponin (Emerg Dept Use Only) < 0.02 ng/mL (0.0-0.045)
[2020-12-17] MEDS ORDERED: CEFTRIAXONE 1000 MG/VIAL ONE (00:56)
[2020-12-17 01:45] LABS: Blood Morphology Comment NOT SEEN (NOT SEEN); Platelet Estimate ADEQ; White Blood Cell Scan OK (OK)
[2020-12-17 01:51] LABS: Urine Bacteria <20 /HPF (<20); Urine RBC <5 /HPF (NONE SEEN); Urine Urothelial Cells <5 /HPF (NONE SEEN); Urine Yeast FEW (NONE SEEN)
[2020-12-17 01:52] LABS: Urine Yeast with Hyphae PRESENT
--- NOTE | 2020-12-17 01:53 | P.HP ---
Certification for Inpatient Patient admitted to: Inpatient With expected LOS: >2 Midnights Patient will require the following post-hospital care: None Practitioner: I am a practitioner with admitting privileges, knowledge of patient current condition, hospital course, and medical plan of care. Services: Services provided to patient in accordance with Admission requirements found in Title 42 Section 412.3 of the Code of Federal Regulations Patient History Date of Service: 12/17/20 Primary Care Provider: Dr. Powell, Dr. Smith Reason for admission: Acute pancreatitis, urinary tract infection History of Present Illness: 74-year-old female with history of chronic pancreatitis, GERD, hypertension, hyperlipidemia presents emergency department for harmeet pain increasing over the course last few days. Patient was evaluated in the emergency department labs are significant for hemoglobin 11.0 hematocrit 34.3 MCV 77.4 GFR 67 glucose 175 alk phos 124 BNP 274 amylase 1302 lipase 17,811 triglycerides 195 urinalysis with 3+ leukoesterase nitrite negative urine microscopic analysis pending. Patient with history of significantly resistant urinary tract infections. Patient was given dose of meropenem in the emergency department, Covid negative. ED provider wishes to admit for further evaluation and management of acute on chronic pancreatitis, urinary tract infection. Allergies No Known Allergies Allergy (Verified 08/13/20 08:29) Home Medications: Citalopram Hydrobromide [Celexa] 1 tab PO DAILY 03/24/20 Famotidine [Pepcid*] 20 mg PO DAILY 08/16/20 Pantoprazole [Protonix Tab*] 40 mg PO BID 08/16/20 Gabapentin 300 mg PO DAILY 09/10/20 Metformin HCl [Glucophage*] 500 mg PO DAILY 10/04/20 - Past Medical/Surgical History Diabetic: No -: Chronic pancreatitis -: Gastroesophageal reflux disease w Hiatal hernia -: Esophageal spasm -: Attention deficit disorder -: Hypertension -: Depression with anxiety -: Hyperlipidemia -: Chronic pain -: Fatty liver, nonalcoholic -: Urinary incontinence/Nephrolithiasis -: Recurrent UTI -: Hysterectomy -: Cholecystectomy -: Appendectomy -: back surgery -: knee surgery -: foot surgery -: EGD/ERCP -: Cardiac catheterization, no stent Psychosocial/ Personal History: Patient lives at home - Family History Father -: Diabetes, Cancer Notes: Type 2 Mother -: Hypertension, Diabetes Notes: Hypoglycemia Sister Notes: epilepsy - Social History Alcohol use: No CD- Drugs: No Caffeine use: Yes Place of Residence: Home Review of Systems 10-point ROS is otherwise unremarkable Gastrointestinal: Nausea, Vomiting, Abdominal Pain Genitourinary: Incontinence Physical Examination - Physical Exam General: Alert, In no apparent distress, Oriented x2, Confused HEENT: Atraumatic, PERRLA, Mucous membr. moist/pink, EOMI, Sclerae nonicteric Neck: Supple, 2+ carotid pulse no bruit, No LAD, Without JVD or thyroid abnormality Respiratory: Clear to auscultation bilaterally, Normal air movement Cardiovascular: Regular rate/rhythm, Normal S1 S2 Gastrointestinal: No masses, No rebound, No guarding, Tenderness (Moderate epigastric abdominal tenderness) Musculoskeletal: No tenderness Integumentary: No rashes Neurological: Normal speech, Normal tone, Normal affect - Studies Laboratory Data (last 24 hrs) 12/17/20 00:00: Triglycerides 195 H, Cholesterol 137, HDL Cholesterol 52, Cholesterol/HDL Ratio 2.63 12/16/20 23:35: PT 11.9, INR 1.03 12/16/20 23:35: WBC 8.20, Hgb 11.0 L, Hct 34.3 L, Plt Count 209 12/16/20 23:35: Sodium 138, Potassium 3.9, BUN 10, Creatinine 0.84, Glucose 175 H, Magnesium 2.2, Total Bilirubin 0.3, AST 10 L, ALT 14, Alkaline Phosphatase 124 H, Amylase > 1302 H*, Lipase 38206 H Assessment and Plan - Plan Assessment: Acute on chronic pancreatitis with small stable pseudocyst of the pancreatic tail Urinary tract infection, possible early pyelonephritis Altered mental statuslikely toxic metabolic encephalopathy secondary to above combined with opioid/Phenergan administration GERD Hypertension Hyperlipidemia Plan: Acute on chronic pancreatitis with small stable pseudocyst of the pancreatic tail: N.p.o., IV fluids, as needed pain medications and antiemetics. No sign of any complications of pancreatitis at this time we will continue to monitor for these with daily labs. Consult GI as necessary. Triglycerides 195, no need for insulin drip at this time. Urinary tract infection, possible early pyelonephritis: Patient with history of multidrug-resistant urinary tract infections in the past previously sensitive to meropenem. Patient started on meropenem, urine culture obtained. Altered mental statuslikely toxic metabolic encephalopathy secondary to above combined with opioid/Phenergan administration: Continue treatment for pancreatitis/pyelonephritis. Attempt to limit as needed medications as much as possible. ED Staff report change in mental status after receiving IV dilaudid/phenergan. No focal defecits, will obtain CT head as well. GERD: IV protonix Hypertension: PRN hydralazine. pt NPO Hyperlipidemia: Will need to hold oral meds at this time. DVT PPX: Lovenox Code status: Full Discharge Plan: Home Plan to discharge in: Greater than 2 days - Advance Directives Does patient have a Living Will: No Does patient have a Durable POA for Healthcare: No - Code Status/Comfort Care Code Status Assessed: Yes (Full code) Critical Care: No Time Spent Managing Pts Care (In Minutes): 55
[2020-12-17] MEDS ORDERED: NA CHLORIDE 0.9% 100 ML ONE (02:30)
[2020-12-17] MEDS ORDERED: Meropenem 1000 MG/VIAL IV ONE (02:30)
[2020-12-17] MEDS ORDERED: ONDANSETRON 4 MG/2 ML VIAL IV PRN (03:28)
[2020-12-17] MEDS ORDERED: HYDRALAZINE HCL 20 MG/ML VIAL IV PRN (03:28)
[2020-12-17] MEDS ORDERED: PROMETHAZINE INJ 25 MG/ML AMP IV PRN (03:28)
[2020-12-17] MEDS ORDERED: SODIUM CHLORIDE 0.9% 10ML INJ IV PRN (03:28)
[2020-12-17] MEDS ORDERED: HYDROMORPHONE HCL 1 MG/ML INJ IV PRN (03:32)
[2020-12-17 04:25] VITALS: BMI 34.5
[2020-12-17] MEDS: D5 0.45 NS 1,000 ML IV SCH ×3 (04:30→11:13)
--- NOTE | 2020-12-17 06:05 | P.PN ---
Subjective Date of Service: 12/17/20 Primary Care Provider: Dr. Powell, GI-Dr. Smith Chief Complaint: Acute pancreatitis, urinary tract infection Subjective: Improving Physical Examination - Vital Signs Temperature: 97.3 F Blood Pressure: 135/93 Pulse: 73 Respirations: 18 Pulse Ox (%): 96 - Studies Laboratory Data (last 24 hrs) 12/17/20 00:00: Triglycerides 195 H, Cholesterol 137, HDL Cholesterol 52, Cholesterol/HDL Ratio 2.63 12/16/20 23:35: PT 11.9, INR 1.03 12/16/20 23:35: WBC 8.20, Hgb 11.0 L, Hct 34.3 L, Plt Count 209 12/16/20 23:35: Sodium 138, Potassium 3.9, BUN 10, Creatinine 0.84, Glucose 175 H, Magnesium 2.2, Total Bilirubin 0.3, AST 10 L, ALT 14, Alkaline Phosphatase 124 H, Amylase > 1302 H*, Lipase 37174 H Assessment & Plan Discharge Plan: Home Plan to discharge in: 72 Hours Physician Review Additional Text: COVID: negative Physical Exam: General: Alert, In no apparent distress, Oriented x2, Confused HEENT: Neck supple Respiratory: Clear to auscultation bilaterally, Normal air movement Cardiovascular: Regular rate/rhythm, Normal S1 S2 Gastrointestinal: Pain to the epigastric region improved. No significant ascites. Musculoskeletal: No tenderness Integumentary: No rashes Neurological: Normal speech, Normal tone, Normal affect Impression: Acute on chronic pancreatitis with small stable pseudocyst of the pancreatic tail Urinary tract infection, possible early pyelonephritis Altered mental statuslikely toxic metabolic encephalopathy secondary to above combined with opioid/Phenergan administration GERD Hypertension Depression Diabetes mellitus type 2 Chronic pain Plan: Acute on chronic pancreatitis with small stable pseudocyst of the pancreatic tail: Overall pain is improved. Continue IV fluids and IV pain medication. Patient remains n.p.o. at this time. Anticipate continued improvement. Follow lipase and electrolytes. Electrolyte protocol in place. Anticipate possible initiation of clear liquids tomorrow. Anticipate improvement over the next 48 to 72 hours. . Urinary tract infection, possible early pyelonephritis: Patient with history of multidrug-resistant urinary tract infections in the past previously sensitive to meropenem. Continue IV meropenem. Await urine culture. Altered mental statuslikely toxic metabolic encephalopathy secondary to above combined with opioid/Phenergan administration: CT head unremarkable. Overall stable. Patient back to baseline. GERD: Continue IV Protonix Hypertension: Continue IV medication as needed Diabetes mellitus type 2: Continue Accu-Cheks and sliding scale. Chronic pain: Continue with medication for pain Depression: Restart medication once taking good oral intake DVT PPX: Lovenox Code status: Full Discharge Plan: Home at discharge Time Spent Managing Pts Care (In Minutes): 55
[2020-12-17 06:26] LABS: Absolute Lymphocytes (CBC) 1.5 K/uL (0.7-4.9); Basophils % 1.2 % (0-1.3); Hematocrit 30.8 % (36.0-45.0); Lymphocytes % 17.5 % (15.3-44.8); MPV 7.5 fL (7.6-11.3); RBC Red Blood Cell Count 4.02 M/uL (3.86-4.86)
[2020-12-17 06:51] LABS: Bilirubin Total 0.3 mg/dL (0.2-1.0); Potassium 3.9 mmol/L (3.5-5.1); Protein, Total 6.9 g/dL (6.4-8.2)
[2020-12-17 06:52] LABS: Magnesium 1.9 mg/dL (1.8-2.4); Thyroid Stimulating Hormone 3.53 uIU/mL (0.360-3.740)
[2020-12-17] MEDS ORDERED: PANTOPRAZOLE 40 MG INJ IVP SCH (07:30)
[2020-12-17] MEDS ORDERED: KCL 20 MEQ/100 mL IVPB 20 MEQ/100 ML BAG IV ONE (08:00)
--- NOTE | 2020-12-17 08:52 | RAD REPORT ---
EXAM DESCRIPTION: RAD - Chest Single View - 12/16/2020 11:38 pm CLINICAL HISTORY: ABDOMINAL DISTENTION Chest pain. COMPARISON: Abdomen 1 View (KUB) dated 09/26/2020; Chest Single View dated 09/20/2020; Abdomen 1 View (KUB) dated 08/19/2020; Chest Single View dated 08/18/2020 FINDINGS: Portable technique limits examination quality. The lungs are grossly clear. The heart is normal in size. Right-sided venous catheter has tip in the SVC.
[2020-12-17] MEDS: ENOXAPARIN 40 MG/0.4 ML SQ SCH (09:00)
[2020-12-17] MEDS ORDERED: MAGNESIUM SULFATE 1 gm IVPB 1 GM/100 ML BAG IV ONE (09:00)
[2020-12-17] MEDS ORDERED: KCL 20 MEQ/100 mL IVPB 20 MEQ/100 ML BAG IV SCH (09:00)
[2020-12-17] MEDS: Meropenem 1 GM/100 ML BAG IV SCH ×2 (09:09→16:57)
[2020-12-17] MEDS: PANTOPRAZOLE 40 MG INJ IVP SCH (09:09)
--- NOTE | 2020-12-17 15:07 | RAD REPORT ---
EXAM DESCRIPTION: CT Head COMPARISON: CT head October 27, 2020 CLINICAL HISTORY: [facility] MA[facility] CONFUSED TECHNIQUE: Axial images were obtained from skull base to vertex without intravenous contrast. Imag es viewed on bone and brain windows. Multiplanar reformats were performed. Automated exposure contr ol was utilized on this examination as a dose lowering technique. FINDINGS: Brain parenchyma, ventricles, dura, meninges, and extra-axial spaces: Moderate generalized cerebral and cerebellar volume loss is present. Small chronic lacunar infarct of the left thalamus. Moderate hypodensities in the subcortical white matter of both hemispheres are nonspecific but likely relate to chronic small vessel disease. No acute intracranial hemorrhage or abnormal extra-axial flu id collections. Vascular structures: No hyperdense arteries or veins. Calvarium, mastoid air cells, paranasal sinuses and orbits: The calvarium is normal. The mastoid air cells are clear. Visualized paranasal sinuses are unremarkable. Orbital structures are unremarkable. IMPRESSION: 1. No acute intracranial abnormality. 2. Small chronic lacunar infarct of the left thalamus. 3. Moderate senescent changes. Electronically signed by: Lavelle Zheng MD 12/17/2020 3:10 AM CDT Due to temporary technical issues with the PACS/Fluency reporting system, reports are being signed by the in house radiologist without review as a courtesy to ensure prompt reporting. The interpreting r adiologist is fully responsible for the content of the report.
--- NOTE | 2020-12-17 15:08 | RAD REPORT ---
EXAM DESCRIPTION: CT Abdomen and Pelvis COMPARISON: CT abdomen and pelvis October 26, 2020 CLINICAL HISTORY: [facility] MAIN ABD PAIN TECHNIQUE: CT of the abdomen and pelvis was acquired with IV contrast material. Coronal and sagitt al reconstructions were obtained. Automated exposure control was utilized on this examination as a dose lowering technique. FINDINGS: Lung bases: Clear. Liver: Normal. Gallbladder and biliary: The gallbladder is contracted or surgically absent. Pneumobilia is present. Pancreas: Peripancreatic fat stranding is present. Atrophy of the pancreatic body and tail. Spleen: Normal. Adrenal glands: Normal adrenal glands. Kidneys: There is a 5 mm nonobstructing inferior left renal calculus. There is mild enhancement/thick ening of the left renal pelvic wall. Stomach and Small Bowel: Moderate sized hiatal hernia. Normal small bowel. Urinary bladder: Mild bladder wall thickening. Uterus and Adnexa: Normal. Colon and Appendix: Severe sigmoid diverticulosis. No evidence of appendicitis. Retroperitoneum and lymph nodes: A few peripancreatic lymph nodes are likely reactive. Vascular: Mild atherosclerosis. Peritoneal cavity: A small amount of fluid is noted adjacent to the pancreatic tail measuring 2.2 cm. Musculoskeletal and soft tissues: Soft tissues are unremarkable. Lumbar spondylosis is present. No ag gressive bone lesions. No compression fracture. IMPRESSION: ABDOMEN/PELVIS IMPRESSION: 1. Acute pancreatitis with atrophy of the pancreatic tail and small stable pseudocyst of the pancreat ic tail. 2. Mild wall thickening of the left renal pelvic wall with mild bladder wall thickening may indicate ascending urinary tract infection. A nonobstructing left renal calculus is present. 3. Severe sigmoid diverticulosis. 4. Contracted or surgically absent gallbladder with pneumobilia. 5. Moderate-sized hiatal hernia. Electronically signed by: Lavelle Zheng MD 12/17/2020 12:52 AM CDT Due to temporary technical issues with the PACS/Fluency reporting system, reports are being signed by the in house radiologist without review as a courtesy to ensure prompt reporting. The interpreting r adiologist is fully responsible for the content of the report.
[2020-12-17] MEDS ORDERED: HYDROMORPHONE HCL 0.5 MG/0.5 ML INJ IV PRN (15:58)
[2020-12-18] MEDS: Meropenem 1 GM/100 ML BAG IV SCH ×2 (01:00→09:56)
[2020-12-18] MEDS: D5 0.45 NS 1,000 ML IV SCH ×3 (02:18→10:18)
--- NOTE | 2020-12-18 06:12 | P.PN ---
Subjective Date of Service: 12/18/20 Primary Care Provider: Dr. Powell, GI-Dr. Smith Chief Complaint: Acute pancreatitis, urinary tract infection Subjective: Improving (Pain improved. No significant nausea or vomiting) Physical Examination - Vital Signs Temperature: 97.8 F Blood Pressure: 132/65 Pulse: 79 Respirations: 18 Pulse Ox (%): 97 Assessment & Plan Discharge Plan: Home Plan to discharge in: 24 Hours Physician Review Additional Text: COVID: negative Physical Exam: General: Alert, In no apparent distress, Oriented x2, Confused HEENT: Neck supple Respiratory: Clear to auscultation bilaterally, Normal air movement Cardiovascular: Regular rate/rhythm, Normal S1 S2 Gastrointestinal: Pain to the epigastric region improved. No significant ascites. 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 Will decrease IV fluids. Lipase within normal range. Will start clear liquid diet. Consider full liquid later today and GI soft tomorrow. Likely home in the next 24 to 48 hours. Urinary tract infection: Urine culture shows mixed blaine. Will discontinue IV antibiotic therapy. Restart her oxybutynin. Altered mental statuslikely toxic metabolic encephalopathy secondary to above combined with opioid/Phenergan administration: CT head unremarkable. Overall stable. Patient back to baseline. GERD: Will change Protonix to oral. Diabetes mellitus type 2: Continue sliding scale. Will monitor closely. Obtain home medication Chronic pain: We will provide medication for pain Depression: Obtain and verify home medication. DVT PPX: Lovenox Code status: Full Discharge Plan: Home at discharge Time Spent Managing Pts Care (In Minutes): 55
[2020-12-18] MEDS ORDERED: FOLIC ACID 5 MG/ML VIAL IVP SCH (09:00)
[2020-12-18] MEDS ORDERED: THIAMINE 200 MG/2 ML INJ IVP SCH (09:00)
[2020-12-18] MEDS: PANTOPRAZOLE 40 MG INJ IVP SCH (09:56)
[2020-12-18] MEDS: ENOXAPARIN 40 MG/0.4 ML SQ SCH (09:57)
[2020-12-18 10:01] LABS: Absolute Lymphocytes (CBC) 0.6 K/uL (0.7-4.9); Basophils % 0.9 % (0-1.3); Hematocrit 30.4 % (36.0-45.0); Lymphocytes % 14.9 % (15.3-44.8); MPV 7.7 fL (7.6-11.3); RBC Red Blood Cell Count 3.97 M/uL (3.86-4.86)
[2020-12-18] MEDS ORDERED: FOLIC ACID 1 MG in NA CHLORIDE 0.9% 50 ML IV SCH (10:30)
[2020-12-18 10:36] LABS: Albumin 2.9 g/dL (3.4-5.0); Bilirubin Total 0.5 mg/dL (0.2-1.0); Magnesium 2.1 mg/dL (1.8-2.4); Potassium 4.1 mmol/L (3.5-5.1); Protein, Total 6.7 g/dL (6.4-8.2)
[2020-12-18] MEDS ORDERED: D5 0.45 NS 1,000 ML IV SCH (10:42)
[2020-12-18] MEDS ORDERED: HYDROCODONE/APAP 7.5/325 MG TAB PO PRN (10:45)
[2020-12-18] MEDS ORDERED: TRAMADOL HCL 50 MG TAB PO PRN (10:45)
--- NOTE | 2020-12-18 16:41 | EKG ---
Test Date: 2020-12-17 Test Time: 00:28:05 Distribution Technician: YVON MEASUREMENT RESULTS: Intervals: Rate: 80 NC: 154 QRSD: 138 QT: 428 QTc: 493 [place]: P: 51 NC: 154 QRS: -32 T: 121 INTERPRETIVE STATEMENTS: Normal sinus rhythm Left axis deviation Left bundle branch block Abnormal ECG Compared to ECG 10/04/2020 09:05:00 Left-axis deviation now present Left bundle-branch block now present Myocardial infarct finding no longer present Electronically Signed On 12-18-20 16:36:13 CDT by Artemio Bolivar
[2020-12-19 01:30] VITALS: O2SAT 98
[2020-12-19 05:48] LABS: Absolute Lymphocytes (CBC) 1.1 K/uL (0.7-4.9); Basophils % 0.1 % (0-1.3); Hematocrit 32.6 % (36.0-45.0); Lymphocytes % 26.1 % (15.3-44.8); MPV 7.9 fL (7.6-11.3); RBC Red Blood Cell Count 4.23 M/uL (3.86-4.86)
[2020-12-19 06:10] LABS: Albumin 3.1 g/dL (3.4-5.0); Bilirubin Total 0.4 mg/dL (0.2-1.0); Magnesium 2.2 mg/dL (1.8-2.4); Potassium 4.1 mmol/L (3.5-5.1); Protein, Total 7.1 g/dL (6.4-8.2)
[2020-12-19] MEDS ORDERED: PANTOPRAZOLE 40MG TABLET PO SCH (06:30)
[2020-12-19] MEDS: ENOXAPARIN 40 MG/0.4 ML SQ SCH (08:27)
--- NOTE | 2020-12-19 08:48 | P.DS ---
Admission Date: 12/17/20 Discharge Date: 12/19/20 Primary Care Provider: Dr. Powell, GI-Dr. Smith Disposition: ROUTINE DISCHARGE Discharge Condition: GOOD Reason for Admission: Acute pancreatitis, urinary tract infection Consultations: none Procedures: COVID: negative CT Head: COMPARISON: CT head October 27, 2020 TECHNIQUE: Axial images were obtained from skull base to vertex without intravenous contrast. Images viewed on bone and brain windows. Multiplanar reformats were performed. Automated exposure control was utilized on this examination as a dose lowering technique. FINDINGS: Brain parenchyma, ventricles, dura, meninges, and extra-axial spaces: Moderate generalized cerebral and cerebellar volume loss is present. Small chronic lacunar infarct of the left thalamus. Moderate hypodensities in the subcortical white matter of both hemispheres are nonspecific but likely relate to chronic small vessel disease. No acute intracranial hemorrhage or abnormal extra-axial fluid collections. Vascular structures: No hyperdense arteries or veins. Calvarium, mastoid air cells, paranasal sinuses and orbits: The calvarium is normal. The mastoid air cells are clear. Visualized paranasal sinuses are unremarkable. Orbital structures are unremarkable. IMPRESSION: 1. No acute intracranial abnormality. 2. Small chronic lacunar infarct of the left thalamus. 3. Moderate senescent changes. CXR: COMPARISON: Abdomen 1 View (KUB) dated 09/26/2020; Chest Single View dated 09/20/2020; Abdomen 1 View (KUB) dated 08/19/2020; Chest Single View dated 08/18/2020 FINDINGS: Portable technique limits examination quality. The lungs are grossly clear. The heart is normal in size. Right-sided venous catheter has tip in the SVC. CT Ab: COMPARISON: CT abdomen and pelvis October 26, 2020 CLINICAL HISTORY: [facility] MAIN ABD PAIN TECHNIQUE: CT of the abdomen and pelvis was acquired with IV contrast material. Coronal and sagittal reconstructions were obtained. Automated exposure control was utilized on this examination as a dose lowering technique. FINDINGS: Lung bases: Clear. Liver: Normal. Gallbladder and biliary: The gallbladder is contracted or surgically absent. Pneumobilia is present. Pancreas: Peripancreatic fat stranding is present. Atrophy of the pancreatic body and tail. Spleen: Normal. Adrenal glands: Normal adrenal glands. Kidneys: There is a 5 mm nonobstructing inferior left renal calculus. There is mild enhancement/thickening of the left renal pelvic wall. Stomach and Small Bowel: Moderate sized hiatal hernia. Normal small bowel. Urinary bladder: Mild bladder wall thickening. Uterus and Adnexa: Normal. Colon and Appendix: Severe sigmoid diverticulosis. No evidence of appendicitis. Retroperitoneum and lymph nodes: A few peripancreatic lymph nodes are likely reactive. Vascular: Mild atherosclerosis. Peritoneal cavity: A small amount of fluid is noted adjacent to the pancreatic tail measuring 2.2 cm. Musculoskeletal and soft tissues: Soft tissues are unremarkable. Lumbar spondylosis is present. No aggressive bone lesions. No compression fracture. IMPRESSION: ABDOMEN/PELVIS IMPRESSION: 1. Acute pancreatitis with atrophy of the pancreatic tail and small stable pseudocyst of the pancreatic tail. 2. Mild wall thickening of the left renal pelvic wall with mild bladder wall thickening may indicate ascending urinary tract infection. A nonobstructing left renal calculus is present. 3. Severe sigmoid diverticulosis. 4. Contracted or surgically absent gallbladder with pneumobilia. 5. Moderate-sized hiatal hernia. Medical Problem List: Acute on chronic pancreatitis with small stable pseudocyst of the pancreatic t ail Urinary tract infection Altered mental statuslikely metabolic encephalopathy secondary to above combined with Opioid/Phenergan administration GERD with moderate hiatal hernia Hypertension Depression Diabetes mellitus type 2 Chronic pain Brief History of Present Illness: 74-year-old female with history of chronic pancreatitis, GERD, hypertension and hyperlipidemia. Patient presented with abdominal pain increasing over several days. Patient found to have elevated lipase suggestive of pancreatitis. Possible UTI was also suspected. Patient admitted for treatment. Hospital Course: Patient presented with abdominal pain secondary to acute on chronic pancreatitis. CT scan revealed acute pancreatitis with atrophy of the pancreatic tail and small stable pseudocyst of the pancreatic tail. Patient was admitted for treatment. Patient received IV fluids, IV pain medication and antinausea medication. Her condition improved. Patient was slowly transition to GI soft diet. At discharge patient without significant abdominal pain. Patient tolerating diet. Lipase within normal range. At discharge patient iraida uld continue with 3 times a day. Recommend follow-up with GI as an outpatient to further monitor and address. Recommend follow-up with PCP with PCP in 1 week to follow-up his hospitalization. Patient had some mild altered mental status change. This was likely related to her pancreatitis and pain/nausea medication. This resolved quickly. CT head unremarkable. Covid test negative. There was some suspicion of possible UTI. Patient was given IV antibiotic therapy. This was discontinued as urine culture shows mixed blaine. UTI prevention provided at discharge. Patient has some urinary incontinence. Patient may continue with her medication. Patient with underlying GERD. CT scan shows moderate size hiatal hernia. Recommend to continue Protonix 40 mg at discharge. Patient with diabetes mellitus type 2. In September 2020 her A1c was 8.4. Recommend to maintain blood sugar less than 140 fasting and less than 200 after meals. Recommend ADA diet. Recommend to continue her regular regimen. Recommend to recheck hemoglobin A1c every 3 months to monitor her progress. Recommend follow-up with PCP to further monitor and address medication. Patient with hypertension. Medication lisinopril started. At discharge she will continue with lisinopril 10 mg daily. Recommend to monitor blood pressure daily. Recommend to maintain blood pressure less 130/80. Further adjustment can be done by her PCP. Commend follow-up with PCP to further monitor and adjust medication Patient with depression. At discharge she will continue with her medication. Patient with chronic pain. At discharge she will continue with her medication. Vital Signs/Physical Exam: Temp Pulse Resp BP Pulse Ox 97.5 F 80 18 191/59 H 98 12/19/20 08:00 12/19/20 08:00 12/19/20 08:00 12/19/20 08:00 12/19/20 08:00 General: Alert, In no apparent distress, Oriented x3, Cooperative HEENT: Atraumatic Neck: Supple Respiratory: Clear to auscultation bilaterally, Normal air movement Cardiovascular: Normal pulses, Regular rate/rhythm Gastrointestinal: Normal bowel sounds, No ascites, No tenderness, No masses, No rebound, No guarding Musculoskeletal: No erythema, No tenderness, No warmth Integumentary: No tenderness/swelling Neurological: Normal speech, Normal strength at 5/5 x4 extr, Normal tone Laboratory Data at Discharge: WBC 4.10 K/uL (4.3-10.9) L 12/19/20 05:35 Hgb 10.5 g/dL (12.0-15.0) L 12/19/20 05:35 Hct 32.6 % (36.0-45.0) L 12/19/20 05:35 Plt Count 174 K/uL (152-406) D 12/19/20 05:35 PT 11.9 SECONDS (9.5-12.5) 12/16/20 23:35 INR 1.03 12/16/20 23:35 Sodium 138 mmol/L (136-145) 12/19/20 05:35 Potassium 4.1 mmol/L (3.5-5.1) 12/19/20 05:35 BUN 5 mg/dL (7-18) L 12/19/20 05:35 Creatinine 0.78 mg/dL (0.55-1.3) 12/19/20 05:35 Glucose 152 mg/dL (74-106) H 12/19/20 05:35 Magnesium 2.2 mg/dL (1.8-2.4) 12/19/20 05:35 Total Bilirubin 0.4 mg/dL (0.2-1.0) 12/19/20 05:35 AST 24 U/L (15-37) 12/19/20 05:35 ALT 14 U/L (12-78) 12/19/20 05:35 Alkaline Phosphatase 122 U/L (45-117) H 12/19/20 05:35 Triglycerides 195 mg/dL (<150) H 12/17/20 00:00 Cholesterol 137 mg/dL (<200) 12/17/20 00:00 HDL Cholesterol 52 mg/dL (40-60) 12/17/20 00:00 Cholesterol/HDL Ratio 2.63 12/17/20 00:00 Amylase > 1302 U/L (25-115) H* 12/16/20 23:35 Lipase 212 U/L (73-393) 12/19/20 05:35 Home Medications: Pantoprazole [Protonix Tab*] 40 mg PO DAILY 08/16/20 Oxybutynin Chloride [Oxybutynin Chloride ER] 15 mg PO DAILY 12/17/20 Lipase/Protease/Amylase [Raza Kim 12,000 Units Capsule] 1 each PO QID #120 capsule. 12/19/20 lisinopriL [Prinivil*] 10 mg PO DAILY #30 tab 12/19/20 New Medications: Lipase/Protease/Amylase [Raza Kim 12,000 Units Capsule] 1 each PO QID #120 capsule. lisinopriL [Prinivil*] 10 mg PO DAILY #30 tab Physician Discharge Instructions: Patient presented with abdominal pain secondary to acute on chronic pancreatitis. CT scan revealed acute pancreatitis with atrophy of the pancreatic tail and small stable pseudocyst of the pancreatic tail. Patient was admitted for treatment. Patient received IV fluids, IV pain medication and antinausea medication. Her condition improved. Patient was slowly transition to GI soft diet. At discharge patient without significant abdominal pain. Patient tolerating diet. Lipase within normal range. At discharge patient should continue with 3 times a day. Recommend follow-up with GI as an outpatient to further monitor and address. Recommend follow-up with PCP with PCP in 1 week to follow-up his hospitalization. Patient had some mild altered mental status change. This was likely related to her pancreatitis and pain/nausea medication. This resolved quickly. CT head unremarkable. Covid test negative. There was some suspicion of possible UTI. Patient was given IV antibiotic therapy. This was discontinued as urine culture shows mixed blaine. UTI prevention provided at discharge. Patient has some urinary incontinence. Patient may continue with her medication. Patient with underlying GERD. CT scan shows moderate size hiatal hernia. Nilson mmend to continue Protonix 40 mg at discharge. Patient with diabetes mellitus type 2. In September 2020 her A1c was 8.4. Recommend to maintain blood sugar less than 140 fasting and less than 200 after meals. Recommend ADA diet. Recommend to continue her regular regimen. Recommend to recheck hemoglobin A1c every 3 months to monitor her progress. Recommend follow-up with PCP to further monitor and address medication. Patient with hypertension. Medication lisinopril started. At discharge she will continue with lisinopril 10 mg daily. Recommend to monitor blood pressure daily. Recommend to maintain blood pressure less 130/80. Further adjustment can be done by her PCP. Commend follow-up with PCP to further monitor and adjust medication Patient with depression. At discharge she will continue with her medication. Patient with chronic pain. At discharge she will continue with her medication. Diet: ADA Followup: Dmitry Powell, [Primary Care Provider] - Time spent managing pt's care (in minutes): 55
[2020-12-19] MEDS ORDERED: FOLIC ACID 1 MG TABLET PO SCH (09:00)
[2020-12-19] MEDS ORDERED: THIAMINE HCL 100 MG TABLET PO SCH (09:00)
[2020-12-19] MEDS ORDERED: OXYBUTYNIN ER 5 MG TAB PO SCH (09:00)
[2020-12-19] MEDS ORDERED: lisinopriL 10 MG TAB PO SCH (09:00)
[2020-12-19 12:24] VITALS: BP 139/68; TEMP 99.1
[2020-12-19 13:59] LABS: Amylase > 1300 U/L (25-115)
== END 2020-12-19 14:47 | disposition home or self-care (01) | DRG 438 ==
LOC: ER 22:43 → ERHOLD 12-17 01:44 → 2ND 12-17 02:44
PROVIDERS: ADMIT Family Medicine; ATTEND Family Medicine
DX: K85.90 Acute pancreatitis without necrosis or infection, unspecified (principal); G92.8 Other toxic encephalopathy; K86.3 Pseudocyst of pancreas; N39.0 Urinary tract infection, site not specified; E11.9 Type 2 diabetes mellitus without complications; I10 Essential (primary) hypertension; F32.A Depression, unspecified; G89.29 Other chronic pain; T40.2X5A Adverse effect of other opioids, initial encounter; T42.6X5A Adverse effect of other antiepileptic and sedative-hypnotic drugs, initial encounter; K21.9 Gastro-esophageal reflux disease without esophagitis; K44.9 Diaphragmatic hernia without obstruction or gangrene; Z20.822 Contact with and (suspected) exposure to COVID-19
CPT/HCPCS: 36415; 51702; 70450; 71045; 74177; 80048; 80053; 80061; 80076; 81003; 81015; 82150; 82565; 83690; 83735; 83880; 84439; 84443; 84484; 85025; 85610; 87086; 87088; 93005; 94010; 96361; 96365; 96367; 96375; 99285; C9113; J0360; J1170; J1650; J2185; J2550; J3411; J3480; J7030; J7799; Q9967; U0003

== ENCOUNTER 2021-02-12 00:44 | Emergency (ER) | payer OTHER ==
--- OUTSIDE RECORDS SUMMARY | 2021-02-12 00:48 | XMS REPORT | Continuity of Care Document ---
:1945 Author Organization [facility] t Address [address] [place] [address] Care Team Providers Name Role Phone Angelo Powell DO Primary Care Physician LAZARUS Attending Clinician Unavailable [facility] Admitting Clinician Unavailable Payers Payer Name Policy Type Policy Number Effective Date Expiration Date S ource MEDICARE A B [id number] 2012 00:00:00 Problems Condition Condition Condition Status Onset Resolution Last Treating Co mments Source Name Details Category Date Date Treatment Clinician Date Essential Essential Disease Active [facility] hypertensi hypertensi 11-09 Mansi kes - on on 00:00: Medical 00 [place] 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 11-09 Luke s - 00:00: Medical 00 [place] Acute Acute Disease Active [facility] pancreatit pancreatit 11-09 Mansi kes - is is 00:00: Medical 00 [place] Allergies, Adverse Reactions, Alerts Allergy Allergy Status Severity Reaction(s) Onset Inactive Treating Comm ents Source Name Type Date Date Clinician NO KNOWN Allergy Active [facility] ALLERGIE [facility] Social History Social Habit Start Date Stop Date Quantity Comments Source History SDOH [facility] Std Drinks Medica l Center History SDOH [facility] - Alcohol Binge Medical [facility] Sex Assigned At [facility] kes [facility] Tobacco use and 2018-11-09 2018-11-09 Never used [facility] St Mansi quiñoness - exposure 00:00:00 00:00:00 [facility] Alcohol intake 2018-11-09 2018-11-09 Current [facility] [place] es - 00:00:00 00:00:00 non-drinker of Medical Ce nter alcohol (finding) History SDOH 2018-11-09 2018-11-09 1 [facility] [place] - Alcohol Frequency 00:00:00 00:00:00 [facility] Smoking Status Start Date Stop Date Source Former smoker 2018-11-09 00:00:00 2018-11-09 00:00:00 [facility] Medications Ordered Filled Start Stop Current Ordering Indication Dosage Frequency Signature Comments Components Source Medication Medication Date Date Medication? Clinician (SIG) Name Name pantoprazol Yes 40mg Q.5D Take [address] 9-06 by mouth 2 [facility] - (PROTONIX) 17:24: (two) Medica l 40 MG 08 times Center tablet daily . lipase-prot Yes [id number]{ Take [facility] ease-amylas 9-06 lipase} 36,000 [...] daily. Medic al MG tablet 08 Center pantoprazol Yes 40mg Q.5D Take [address] [facility] e 9-06 by mouth 2 [facility] - (PROTONIX) 17:24: (two) Medica l 40 MG 08 times Center tablet daily . lipase-prot 2018- Yes [id number]{ Take [facility] 9-06 lipase} 36,000 [place] - e (CREON) 17:24: units of Medi oralia 36,000-114, [address] 000- mouth 3 180,000 (three) unit CpDR times capsule daily with meals. metoprolol 2019-0 Yes 50mg QD Take [address] (LOPRESSOR) 9-06 by mouth Luke s - 50 MG 17:24: daily. Medical tablet 08 Center gabapentin 2019-0 Yes 100mg Q.5D Take [address] (NEURONTIN) 9-06 mg by [facility] - 100 MG 17:24: mouth 2 Medical capsule 08 (two) Center times daily. lisinopril 2019-0 Yes 40mg QD Take [address] (PRINIVIL,Z 9-06 by mouth Luke s - ESTRIL) 40 17:24: daily. Medic al MG tablet 08 Center pantoprazol 2018-0 Yes 40mg Q.5D Take [address] [facility] e 9-06 by mouth 2 [facility] - (PROTONIX) 17:24: (two) Medica l 40 MG 08 times Center tablet daily . lipase-prot 2019-0 Yes [id number]{ Take [facility] 9-06 lipase} 36,000 [place] - e (CREON) 17:24: units of Medi oralia 36,000-114, [address] 000- mouth 3 180,000 (three) unit CpDR times capsule daily with meals. metoprolol 2019-0 Yes 50mg QD Take [address] (LOPRESSOR) 9-06 by mouth Luke s - 50 MG 17:24: daily. Medical tablet 08 Center gabapentin 2019-0 Yes 100mg Q.5D Take [address] (NEURONTIN) 9-06 mg by [facility] - 100 MG 17:24: mouth 2 Medical capsule 08 (two) Center times daily. lisinopril 2019-0 Yes 40mg QD Take [address] (PRINIVIL,Z 9-06 by mouth Luke s - ESTRIL) 40 17:24: daily. Medic al MG tablet 08 Center albuterol 2019-0 Yes 2.5mg Take 0.[address] (PROVENTIL) 9-06 mLs (2.5 Luke s - 2.5 mg/0.5 00:00: mg total) Me dical mL Nebu 00 by Center nebulizer nebulizati solution on every 4 (four) hours as needed. albuterol 2019-0 Yes 2.5mg Take 0.[address] (PROVENTIL) 9-06 mLs (2.5 Luke s - 2.5 mg/0.5 00:00: mg total) Me dical mL Nebu 00 by Center nebulizer nebulizati solution on every 4 (four) hours as needed. albuterol 2019-0 Yes 2.5mg Take 0.[address] (PROVENTIL) 9-06 mLs (2.5 Luke s - 2.5 mg/0.5 00:00: mg total) Me dical mL Nebu 00 by Center nebulizer nebulizati solution on every 4 (four) hours as needed. Clotrimazol Clotrimazol No Dmitry [address] [facility] [facility] e 10-12 Poewll applicatio [facility] - 00:00 n to Memoria :00 affected l area Outpati ent Clinics Procedures This patient has no known procedures. Plan of Care Planned Activity Planned Date Details Comments Source Future Scheduled 2020-11-[address] [facility] - Test 00:00:00 (Season Ended) [code = Medic al Center INFLUENZA VACCINE (Season Ended)] Future Scheduled 2020-11-[address] [facility] - Test 00:00:00 (Season Ended) [code = Medic al Center INFLUENZA VACCINE (Season Ended)] Future Scheduled 2020-11-[address] [facility] - Test 00:00:00 (Season Ended) [code = Medic al Center INFLUENZA VACCINE (Season Ended)] Future Scheduled 2020-03-[address] [facility] - Test 00:00:00 (12+) [code = Medical Center DEPRESSION SCREENING (12+)] Future Scheduled 2020-03-[address] [facility] - Test 00:00:00 (12+) [code = Medical Center DEPRESSION SCREENING (12+)] Future Scheduled 2020-03-[address] [facility] - Test 00:00:00 (12+) [code = Medical Center DEPRESSION SCREENING (12+)] Future Scheduled 2013-12-[address] [facility] - Test 00:00:00 WELLNESS (YEAR 2 or Medical Center FIRST YEAR if no IPPE) [code = MEDICARE ANNUAL WELLNESS (YEAR 2 or FIRST YEAR if no IPPE)] Future Scheduled 2013-12-[address] [facility] - Test 00:00:00 WELLNESS (YEAR 2 or Medical Center FIRST YEAR if no IPPE) [code = MEDICARE ANNUAL WELLNESS (YEAR 2 or FIRST YEAR if no IPPE)] Future Scheduled 2013-12-[address] [facility] - Test 00:00:00 WELLNESS (YEAR 2 or Medical Center FIRST YEAR if no IPPE) [code = MEDICARE ANNUAL WELLNESS (YEAR 2 or FIRST YEAR if no IPPE)] Future Scheduled 2012-12-28 PNEUMOCOCCAL 65+ YRS [facility] - Test 00:00:00 (1 of 1 - Medical Center [id number] PCV13) [code = PNEUMOCOCCAL 65+ YRS (1 of 1 - [id number] PCV13)] Future Scheduled 2012-12-28 PNEUMOCOCCAL 65+ Y[facility] - Test 00:00:00 (1 of 1 - Medical Center [id number] PCV13) [code = PNEUMOCOCCAL 65+ YRS (1 of 1 - [id number] PCV13)] Future Scheduled 2012-12-28 PNEUMOCOCCAL 65+ YRS [facility] - Test 00:00:00 (1 of 1 - Medical Center [id number] PCV13) [code = PNEUMOCOCCAL 65+ YRS (1 of 1 - [id number] PCV13)] Future Scheduled 1997-12-28 SHINGLES VACCINES ([address] [facility] - Test 00:00:00 of 2) [code = SHINGLES Medic al Center VACCINES (1 of 2)] Future Scheduled 1997-12-28 SHINGLES VACCINES ([address] [facility] - Test 00:00:00 of 2) [code = SHINGLES Medic al Center VACCINES (1 of 2)] Future Scheduled 1997-12-28 SHINGLES VACCINES ([address] [facility] - Test 00:00:00 of 2) [code = SHINGLES Medic al Center VACCINES (1 of 2)] Future Scheduled 1966-12-28 DTAP/TDAP/TD [facility]ACCINES [facility] Test 00:[facility]:00 (1 - Tdap) [code = Medical C enter DTAP/TDAP/TD VACCINES (1 - Tdap)] Future Scheduled 1966-12-28 DTAP/TDAP/TD [facility]ACCINES [facility] Test 00:00:00 (1 - Tdap) [code = Medical C enter DTAP/TDAP/TD VACCINES (1 - Tdap)] Future Scheduled 1966-12-28 DTAP/TDAP/TD VACCINES [facility] Test 00:00:00 (1 - Tdap) [code = Medical C enter DTAP/TDAP/TD VACCINES (1 - Tdap)] Future Scheduled 1965-12-28 HEPATITIS C [facility]CREENING [facility] Test 00:00:00 [code = HEPATITIS C Medical Center SCREENING] Future Scheduled 1965-12-28 HEPATITIS C [facility]CRE[facility]ING [facility] Test 00:00:00 [code = HEPATITIS C Medical Center SCREENING] Future Scheduled 1965-12-28 HEPATITIS C [facility]CRE[facility]ING [facility] 00:00:00 [code = HEPATITIS C Medical Center SCREENING] Future Scheduled 1959 COVID-19 VACCINE (1) [facility] Test 00:00:00 [code = COVID-[address] VACCINE (1)] Future Scheduled 1959 COVID-19 VACCINE (1) [facility] Test 00:00:00 [code = COVID-[address] VACCINE (1)] Future Scheduled 1959 COVID-19 VACCINE (1) [facility] Test 00:00:00 [code = COVID-[address] VACCINE (1)] Future Scheduled [address] [place] [facility] - Test 00:00:00 malignant neoplasm of Medica l Center breast (procedure) [code = 442860731] Future Scheduled [address] [facility] [facility] [place] [facility] - Test 00:00:00 malignant neoplasm of Medica l Center colon (procedure) [code = 010027284] Future Scheduled [address] [place] [facility] - Test 00:00:00 malignant neoplasm of Medica l Center breast (procedure) [code = 823115399] Future Scheduled [address] [place] [facility] - Test 00:00:00 malignant neoplasm of Medica l Center colon (procedure) [code = 382623512] Future Scheduled [address] [place] [facility] - Test 00:00:00 malignant neoplasm of Medica l Center breast (procedure) [code = 673692134] Future Scheduled [address] [place] [facility] - Test 00:00:00 malignant neoplasm of Medica Center colon (procedure) [code = 900115680] Encounters Start End Encounter Admission Attending Care Care Encounter Source Date/Time Date/Time Type Type Clinicians Facility Department ID 2020-12-15 Inpatient [facility] [id number] [facility]39 [facility] 2021-01-27 2021-01-27 [id number] 2020-12-25 2020-12-25 [facility] [id number] [facility] 2020-12-20 2020-12-20 [facility] [id number] [facility] 2020-12-02 2020-12-02 [facility] [id number] [facility] 2020-12-02 2020-12-02 [facility] [id number] [facility] 2020-12-02 2020-12-02 [facility] [id number] [facility] 2020-10-16 2020-10-16 [facility] [id number] [facility] 2020-10-16 2020-10-16 Out[facility] [id number] [facility] 2020-10-10 2020-10-10 [facility] [id number] [facility] 2020-09-25 2020-09-25 Outpatient [facility] [id number] [facility] 2020-09-20 2020-09-20 Outpatient [facility] [id number] [facility] 2020-09-04 2020-09-04 Outpatient [facility] [id number] [facility] 2020-09-04 2020-09-04 Outpatient [facility] [id number] [facility] 2020-09-04 2020-09-04 Outpatient [facility] [id number] [facility] 2020-09-03 2020-09-03 Outpatient [facility] [id number] [facility] 2020-08-27 2020-08-27 Outpatient [facility] [id number] [facility] 2020-08-15 2020-08-15 Outpatient [facility] [id number] [facility] 2020-08-14 2020-08-14 Outpatient [facility] [id number] [facility] 2020-08-01 2020-08-01 Outpatient [facility] [id number] [facility] 2020-07-24 2020-07-24 Outpatient [facility] [id number] [facility] 2020-07-16 2020-07-16 Outpatient [facility] [id number] [facility] 2020-07-16 2020-07-16 Outpatient [facility] [id number] [facility] 2020-07-10 2020-07-10 Outpatient [facility] [id number] [facility] 2020-07-05 2020-07-05 Outpatient [facility] [id number] [facility] 2020-06-27 2020-06-27 Outpatient [facility] [id number] [facility] 2020-06-24 2020-06-24 Outpatient [facility] [id number] [facility] 2020-06-19 2020-06-19 Outpatient [facility] [id number] [facility] 2020-05-20 2020-05-20 Outpatient [facility] [id number] [facility] 2020-05-14 2020-05-14 Outpatient [facility] [id number] [facility] 2020-04-19 2020-04-19 Outpatient [facility] [id number] [facility] 2020-04-16 2020-04-16 Outpatient [facility] [id number] [facility] 2019-09-29 2019-09-29 [facility] [id number] 13:46:00 13:46:[address] [facility] Medicine l Medicine Outpati ent Clinics 2019-09-28 2019-09-28 [facility] [id number] 11:00:00 11:00:00 t [employer] - Drive [facility] Medicine l Medicine Outpati ent Clinics 2019-09-28 2019-09-28 [facility] [id number] 10:30:00 10:30:00 t [employer] - Drive [facility] Medicine l Medicine Outpati ent Clinics 2019-07-14 2019-07-14 [facility] [id number] [facility] 10:31:00 10:31:00 t [employer] - [employer] [facility] l Medicine Outpati ent Clinics 2018-12-15 2018-12-15 [facility] [id number] 16:00:00 16:00:00 t [employer] [facility] Medicine l Medicine Outpati ent Clinics 2018-09-14 2018-09-14 [facility] [id number] 15:45:00 15:45:00 t [employer] [facility] Medicine l Medicine Outpati ent Clinics 2018-08-30 2018-08-30 [facility] [id number] 08:00:00 08:00:00 t [employer] [facility] Medicine l Medicine Outpati ent Clinics 2018-06-10 2018-06-10 [facility] [id number] 16:46:00 16:46:00 t [employer] - [employer] [facility] Medicine l Medicine Outpati ent Clinics 2018-06-09 2018-06-09 [facility] [id number] 09:18:00 09:18:00 t [facility] [employer] [facility] l Medicine Outpati ent Clinics 2018-06-07 2018-06-07 [facility] [id number] 15:00:00 15:00:00 t Virgil Vir[employer] s - Drive [facility] Medicine l Medicine Outpati ent Clinics 2018-04-25 2018-04-25 [facility] [id number] 09:15:00 09:15:00 t [employer] [facility] Medicine Outpati ent Clinics 2018-03-09 2018-03-09 [facility] [id number] 16:00:00 16:00:00 t [employer] - Drive [facility] Medicine Outpati ent Clinics 2018-03-03 2018-03-03 [facility] [id number] 08:52:00 08:52:00 t [employer] [facility] Medicine Outpati ent Clinics 2017-11-30 2017-11-30 [facility] [id number] 15:00:00 15:00:00 t [employer] - [employer] [facility] Outpati ent Clinics 2017-09-30 2017-09-30 [facility] [id number] 15:00:00 15:00:00 t Specialty/U Mansi kes - Specialty rology [facility] a /Urology Clinic l Clinic Outpati ent Clinics 2017-09-29 2017-09-29 [facility] [id number] 10:13:00 10:13:00 t [employer] [facility] Outpati ent Clinics 2017-09-28 2017-09-28 [facility] [id number] 14:00:00 14:00:00 t [employer] [facility] Results Test Description Test Time Test Comments Results Result Comments Source PHOSPHORUS 2018-11-11 05:54:00 Test Item Value Reference Range Interpretation Comme nts PHOSPHORUS (BEAKER) (test code = 604) 3.6 mg/dL 2.3-4.7 [id number] 05:54:00 Test Item Value Reference Range Interpretation Comments MAGNESIUM (BEAKER) (test code = 1.8 mg/dL 1.6-2.6 627) BASIC METABOLIC [id number] 05:54:00 Test Item Value Reference Range Interpretation [...] 697) EGFR (BEAKER) (test 76 mL/min/1.73 ESTIMA NNACI GFR IS code = 1092) sq m NOT ACCURATE CREATININE CLEARANCE IN PREDICTING GLOMERULAR FILTRATION RATE . ESTIMATED GFR I S NOT APPLICABLE FOR DIALYSIS PATIEN TS. HEPATIC FUNCTION [id number] 05:54:00 Test Item Value Reference Range Interpretation [...] 6-55 347) CBC W/PLT COUNT & AUTO [id number] 05:43:00 Test Item Value Reference Range Interpretation [...] PERCENT (BEAKER) (test code = 2801) PROTHROMBIN [id number] 05:42:00 Test Item Value Reference Range Interpretation [...] is2.5-3.5 for patients wiht mechanical heart valves.HEMOGLOBIN [id number] 07:50:00 Test Item Value Reference Range Interpretation Comments HEMOGLOBIN A1C (BEAKER) (test code = 7.1 % 4.3-6.1 H 368) [id number] 04:53:00 Test Item Value Reference Range Interpretation Comments PHOSPHORUS (BEAKER) (test code = 3.2 mg/dL 2.3-4.7 604) [id number] 04:53:00 Test Item Value Reference Range Interpretation Comments MAGNESIUM (BEAKER) (test code = 1.8 mg/dL 1.6-2.6 627) BASIC METABOLIC [id number] 04:53:00 Test Item Value Reference Range Interpretation [...] APPLICABLE FOR DIALYSIS PATIEN TS. HEPATIC FUNCTION [id number] 04:53:00 Test Item Value Reference Range Interpretation [...] code = 12 U/L 6-55 347) PROTHROMBIN [id number] 04:19:00 Test Item Value Reference Range Interpretation [...] mechanical heart valves.CBC W/PLT COUNT & AUTO [id number] 04:14:00 Test Item Value Reference Range Interpretation [...] 0-1 PERCENT (BEAKER) (test code = 2801) [id number] 14:44:00 Test Item Value Reference Range Interpretation Comments LIPASE (BEAKER) (test code = 749) 972 U/L 8-78 H HEPATIC FUNCTION [id number] 13:06:00 Test Item Value Reference Range Interpretation [...] (test code = 18 U/L 6-55 347) [id number] 13:06:00 Test Item Value Reference Range Interpretation Comments PHOSPHORUS (BEAKER) (test code = 3.3 mg/dL 2.3-4.7 604) [id number] 13:06:00 Test Item Value Reference Range Interpretation Comments MAGNESIUM (BEAKER) (test code = 2.0 mg/dL 1.6-2.6 627) BASIC METABOLIC [id number] 13:06:00 Test Item Value Reference Range Interpretation [...] NOT APPLICABLE FOR DIALYSIS PATIEN TS. LIPID [id number] 13:06:00 Test Item Value Reference Range Interpretation [...] 100-129 Borderline 130-159 High 160-189 Very High >=190CBC W/PLT COUNT & AUTO [id number] 12:46:00 Test Item Value Reference Range Interpretation [...] PERCENT (BEAKER) (test code = 2801) PROTHROMBIN [id number] 12:39:00 Test Item Value Reference Range Interpretation [...]
[2021-02-12 03:40] LABS: Urine Blood Trace-intact (Negative); Urine Glucose Trace (Negative); Urine Protein Negative (Negative); Urine Specific Gravity 1.025 (1.005-1.030)
[2021-02-12] MEDS ORDERED: NA CHLORIDE 0.9% 1,000 ML ONE (04:24)
[2021-02-12 04:32] LABS: Urine Bacteria <20 /HPF (<20); Urine RBC NONE SEEN /HPF (NONE SEEN); Urine Urothelial Cells <5 /HPF (NONE SEEN)
[2021-02-12] MEDS ORDERED: ONDANSETRON 4 MG/2 ML VIAL ONE (04:44)
[2021-02-12] MEDS ORDERED: MORPHINE 4 MG/ML SYR ONE ×2 (04:44→08:14)
[2021-02-12] MEDS ORDERED: FAMOTIDINE 20 MG/2 ML VIAL IV ONE (04:44)
[2021-02-12 05:34] LABS: Absolute Lymphocytes (CBC) 2.2 K/uL (0.7-4.9); Basophils % 0.5 % (0-1.3); Hematocrit 31.2 % (36.0-45.0); Lymphocytes % 27.4 % (15.3-44.8); RBC Red Blood Cell Count 4.24 M/uL (3.86-4.86)
[2021-02-12 05:38] LABS: ALT/SGPT 15 U/L (12-78); AST/SGOT 12 U/L (15-37); Albumin 3.1 g/dL (3.4-5.0); Alkaline Phosphatase 129 U/L (45-117); BUN Blood Urea Nitrogen 10 mg/dL (7-18); Bicarbonate 24 mmol/L (21-32); Bilirubin Direct < 0.1 mg/dL (0-0.2); Bilirubin Total 0.4 mg/dL (0.2-1.0); Glucose Level 220 mg/dL (74-106); Lipase 103 U/L (73-393); Potassium 3.8 mmol/L (3.5-5.1); Protein, Total 7.7 g/dL (6.4-8.2); Sodium Level 136 mmol/L (136-145)
[2021-02-12] MEDS ORDERED: CEFTRIAXONE 1000 MG/VIAL ONE (06:08)
[2021-02-12] MEDS ORDERED: NA CHLORIDE 0.9% 50 ML ONE (06:08)
--- NOTE | 2021-02-12 07:23 | RAD REPORT ---
EXAM DESCRIPTION: CT - Abdomen Pelvis W Contrast - 02/12/2021 6:37 am CLINICAL HISTORY: Abdominal pain COMPARISON: December 2020 TECHNIQUE: Computed axial tomography of the abdomen pelvis was obtained. 100 cc Isovue-300 was admin istered intravenously. Oral contrast was not requested which limits evaluation of bowel. All CT scans are performed using dose optimization technique as appropriate and may include automated exposure control or mA/KV adjustment according to patient size. FINDINGS: Moderate hiatal hernia. Mild fatty infiltration liver with pneumobilia which is chronic. A pseudocyst within the pancreatic tail has mostly resolved. Minimal peripancreatic stranding has dim inished since the prior exam. Atrophy of the pancreatic body and tail. Small left renal calculus. Mild bilateral pyelocaliectasis unchanged. Ureters are normal caliber. Diverticula stem from the colon without evidence of diverticulitis. Hysterectomy IMPRESSION: Improvement in the pancreatitis which is mild
--- NOTE | 2021-02-12 08:06 | EDPHYS ---
Physician Documentation [facility] Name: Isadora Bettencourt Age: 75 yrs Sex: Female : 1945 Arrival Date: 02/12/2021 Time: 00:48 Bed 12 Private MD: ED Physician Lincoln Powell HPI: 02/12 03:55 This 75 yrs old Female presents to ER via Ambulatory with complaints of Abdominal Pain. mh7 03:55 The patient presents with abdominal pain in the upper abdomen. Onset: The mh7 symptoms/episode began/occurred 2 day(s) ago. The symptoms do not radiate. Associated signs and symptoms: Pertinent positives: nausea and vomiting, Pertinent negatives: anorexia, blood in stools, chest pain, constipation, diarrhea, dysuria, fever, headache, hematuria, palpitations, shortness of breath, vaginal discharge, vomiting blood. The symptoms are described as intermittent, vague, waxing/waning. Modifying factors: The symptoms are alleviated by nothing, the symptoms are aggravated by nothing. Severity of pain: At its worst the pain was moderate yesterday, in the emergency department the pain is unchanged. The patient has experienced similar episodes in the past, multiple times. Historical: - Allergies: 06:43 No Known Allergies; bb - Immunization history:: Client reports receiving the 2nd dose of the Covid vaccine. - Social history:: Smoking status: unknown. ROS: 03:55 Constitutional: Negative for fever, chills, and weight loss, Eyes: Negative for injury, mh7 pain, redness, and discharge, ENT: Negative for injury, pain, and discharge, Neck: Negative for injury, pain, and swelling, Cardiovascular: Negative for chest pain, palpitations, and edema, Respiratory: Negative for shortness of breath, cough, wheezing, and pleuritic chest pain, Back: Negative for injury and pain, : Negative for injury, bleeding, discharge, and swelling, MS/Extremity: Negative for injury and deformity, Skin: Negative for injury, rash, and discoloration, Neuro: Negative for headache, weakness, numbness, tingling, and seizure, Psych: Negative for depression, anxiety, suicide ideation, homicidal ideation, and hallucinations, Allergy/Immunology: Negative for hives, rash, and allergies, Endocrine: Negative for neck swelling, polydipsia, polyuria, polyphagia, and marked weight changes, Hematologic/Lymphatic: Negative for swollen nodes, abnormal bleeding, and unusual bruising. Exam: 03:55 Constitutional: This is a well developed, well nourished patient who is awake, alert, mh7 and in no acute distress. Head/Face: Normocephalic, atraumatic. Eyes: Pupils equal round and reactive to light, extra-ocular motions intact. Lids and lashes normal. Conjunctiva and sclera are non-icteric and not injected. Cornea within normal limits. Periorbital areas with no swelling, redness, or edema. Neck: Trachea midline, no thyromegaly or masses palpated, and no cervical lymphadenopathy. Supple, full range of motion without nuchal rigidity, or vertebral point tenderness. No Meningismus. Chest/axilla: Normal chest wall appearance and motion. Nontender with no deformity. No lesions are appreciated. Cardiovascular: Regular rate and rhythm with a normal S1 and S2. No gallops, murmurs, or rubs. Normal PMI, no JVD. No pulse deficits. Respiratory: Lungs have equal breath sounds bilaterally, clear to auscultation and percussion. No rales, rhonchi or wheezes noted. No increased work of breathing, no retractions or nasal flaring. 03:55 Back: No spinal tenderness. No costovertebral tenderness. Full range of motion. Skin: Warm, dry with normal turgor. Normal color with no rashes, no lesions, and no evidence of cellulitis. MS/ Extremity: Pulses equal, no cyanosis. Neurovascular intact. Full, normal range of motion. Neuro: Awake and alert, GCS 15, oriented to person, place, time, and situation. Cranial nerves II-XII grossly intact. Motor strength 5/5 in all extremities. Sensory grossly intact. Cerebellar exam normal. Normal gait. Psych: Awake, alert, with orientation to person, place and time. Behavior, mood, and affect are within normal limits. 03:55 Abdomen/GI: Inspection: obese Bowel sounds: normal, in all quadrants, Palpation: mild abdominal tenderness, in the epigastric area, mass, is not appreciated, rebound tenderness, is not appreciated, voluntary guarding, is not appreciated, involuntary guarding, is not appreciated, no appreciated organomegaly, Rectal exam: the exam is deferred, because of patient request, Indicators: McBurney's point is not tender, Bowens's sign is negative, Rovsing's sign is negative, Obturator sign is negative, Psoas sign is negative, Liver: no appreciated palpable abnormalities, Hernia: not appreciated. Vital Signs: 00:54 BP 123 / 100; Pulse 95; Resp 18; Temp 98.5; Pulse Ox 100% on R/A; Weight 81.65 kg; da3 Height 5 ft. 1 in. (154.94 cm); 05:34 BP 167 / 80; Pulse 79; Resp 16; Pulse Ox 99% on R/A; mw2 06:32 BP 158 / 69; Pulse 70; Resp 18 S; Pulse Ox 98% on R/A; bb 00:54 Body Mass Index 34.01 (81.65 kg, 154.94 cm) da3 MDM: 07:02 Transition of care: After a detail discussion of the patient's case, care is mh7 transferred to Lincoln Powell MD. 08:04 ED course: CT demonstrates improved pancreatitis. Will give 1 dose of morphine further sp3 and discharge patient home with her primary team follow-up.. 08:05 Patient medically screened. sp3 02/12 03:05 Order name: Basic Metabolic Panel; Complete Time: 05:47 tw5 02/12 03:05 Order name: CBC with Diff; Complete Time: 05:47 tw5 02/12 03:05 Order name: Hepatic Function; Complete Time: 05:47 tw5 02/12 03:05 Order name: Lipase; Complete Time: 05:47 5 02/12 03:40 Order name: Urine Dipstick-Ancillary; Complete Time: 03:52 EDMS 02/12 03:40 Order name: Urine Culture [facility] 02/12 03:40 Order name: Urine Microscopic Only; Complete Time: 04:48 [facility] 02/12 04:49 Order name: CT Abd/Pelvis - IV Contrast Only; Complete Time: 08:03 7 02/12 03:05 Order name: IV Saline Lock; Complete Time: 05:12 tw5 02/12 03:05 Order name: Labs collected and sent; Complete Time: 05:12 tw5 02/12 03:33 Order name: Urine Dipstick-Ancillary (obtain specimen); Complete Time: 03:40 [facility] 02/12 03:53 Order name: EKG; Complete Time: 03:54 mh7 02/12 03:53 Order name: EKG - Nurse/Tech; Complete Time: 05:23 mh7 Administered Medications: 05:20 Drug: NS 0.9% 1000 ml Route: IV; Rate: 1000 ml; Site: right forearm; bb 05:20 Drug: Zofran (Ondansetron) 4 mg Route: IVP; Site: right forearm; bb 06:21 Follow up: Response: No adverse reaction bb 05:24 Drug: morphine 4 mg {Note: RASS 0.} Route: IVP; Site: right forearm; bb 06:20 Follow up: Response: No adverse reaction; Pain is decreased; RASS: Alert and Calm (0) bb 05:31 Drug: Pepcid (famotidine) 20 mg Route: IVP; Site: right forearm; bb 06:21 Follow up: Response: No adverse reaction bb 06:20 Drug: Rocephin (cefTRIAXone) 1 grams Route: IV; Rate: per protocol; Site: right femoral;bb 08:20 Drug: morphine 4 mg Route: IVP; Site: right forearm; Disposition Summary: 02/12/21 08:05 Discharge Ordered Location: Home sp3 Condition: Stable sp3 Diagnosis - Other chronic pancreatitis sp3 Followup: sp3 - With: Private Physician - When: As needed - Reason: Recheck today's complaints Discharge Instructions: - Discharge Summary Sheet sp3 - Chronic Pancreatitis sp3 Forms: - Medication Reconciliation Form sp3 - Thank You Letter sp3 - Antibiotic Education sp3 - Prescription Opioid Use sp3 Signatures: Dispatcher [employer] EDMS Mari Greer RN RN bb Williams, Irene, RN RN Rima Castro mw2 Gil Garcia MD MD 7 Dominik Feliciano RN RN da3 Lincoln Powell MD MD sp3 Deborah Yee tw5 Corrections: (The following items were deleted from the chart) 04:54 03:56 Abdomen Pelvis Wo Con+CT.RAD.BRZ ordered. EDMS EDMS
--- NOTE | 2021-02-12 08:06 | ER ---
Nurse's Notes [facility] Name: Isadora Bettencourt Age: 75 yrs Sex: Female : 1945 Arrival Date: 02/12/2021 Time: 00:48 Bed 12 Private MD: Diagnosis: Other chronic pancreatitis Presentation: 02/12 00:54 Chief complaint: Patient states: abdominal pain on and off x 20 years pts possible da3 related to her pancreatitis. Coronavirus screen: Vaccine status: Patient reports receiving the 2nd dose of the covid vaccine. Ebola Screen: No symptoms or risks identified at this time. Risk Assessment: Do you want to hurt yourself or someone else? Patient reports no desire to harm self or others. 00:54 Method Of Arrival: Ambulatory da3 00:54 Acuity: FRANDY 3 da3 06:47 Initial Sepsis Screen: Does the patient meet any 2 criteria? No. Patient's initial bb sepsis screen is negative. Does the patient have a suspected source of infection? No. Patient's initial sepsis screen is negative. Onset of symptoms is unknown. Triage Assessment: 00:57 General: Appears in no apparent distress. comfortable, Behavior is calm, cooperative, da3 appropriate for age. Historical: - Allergies: 06:43 No Known Allergies; bb - Immunization history:: Client reports receiving the 2nd dose of the Covid vaccine. - Social history:: Smoking status: unknown. Screenin:43 Abuse screen: Denies threats or abuse. Nutritional screening: No deficits noted. bb Tuberculosis screening: No symptoms or risk factors identified. Fall Risk None identified. Assessment: 03:30 General: Appears in no apparent distress. uncomfortable, obese, Behavior is bb cooperative. Pain: Complains of pain in abdomen. Neuro: Level of Consciousness is awake, alert, obeys commands, Oriented to person, place, time, situation. Cardiovascular: Capillary refill < 3 seconds Patient's skin is warm and dry. Respiratory: Airway is patent Respiratory effort is even, unlabored, Respiratory pattern is regular. GI: Abdomen is obese, Reports upper abdominal pain. Derm: Skin is pink, warm \T\ dry. Musculoskeletal: Circulation, motion, and sensation intact. 04:30 Reassessment: Patient is alert, oriented x 3, equal unlabored respirations, skin bb warm/dry/pink. awaiting diagnostic results. 05:30 Reassessment: Patient is alert, oriented x 3, equal unlabored respirations, skin bb warm/dry/pink. IV site intact, no erythema or edema noted. Vital Signs: 00:54 BP 123 / 100; Pulse 95; Resp 18; Temp 98.5; Pulse Ox 100% on R/A; Weight 81.65 kg; da3 Height 5 ft. 1 in. (154.94 cm); 05:34 BP 167 / 80; Pulse 79; Resp 16; Pulse Ox 99% on R/A; mw2 06:32 BP 158 / 69; Pulse 70; Resp 18 S; Pulse Ox 98% on R/A; bb 00:54 Body Mass Index 34.01 (81.65 kg, 154.94 cm) da3 ED Course: 00:48 Patient arrived in ED. da3 00:57 Triage completed. da3 03:21 Gil Garcia MD is Attending Physician. [facility] 04:16 Mari Greer, SHARMAINE is Primary Nurse. bb 05:09 Inserted saline lock: 24 gauge in right forearm, using aseptic technique. Blood ds4 collected. Missed attempt(s): 22 gauge in left forearm. Bleeding controlled, band aid applied, catheter tip intact. 05:32 Warm blanket given. Pillow given. mw2 06:37 CT Abd/Pelvis - IV Contrast Only In Process Unspecified. EDMS 06:43 Patient has correct armband on for positive identification. bb 07:03 Attending Physician role handed off by Gil Garcia MD sp3 07:03 Lincoln Powell MD is Attending Physician. sp3 Administered Medications: 05:20 Drug: NS 0.9% 1000 ml Route: IV; Rate: 1000 ml; Site: right forearm; bb 05:20 Drug: Zofran (Ondansetron) 4 mg Route: IVP; Site: right forearm; bb 06:21 Follow up: Response: No adverse reaction bb 05:24 Drug: morphine 4 mg {Note: RASS 0.} Route: IVP; Site: right forearm; bb 06:20 Follow up: Response: No adverse reaction; Pain is decreased; RASS: Alert and Calm (0) bb 05:31 Drug: Pepcid (famotidine) 20 mg Route: IVP; Site: right forearm; bb 06:21 Follow up: Response: No adverse reaction bb 06:20 Drug: Rocephin (cefTRIAXone) 1 grams Route: IV; Rate: per protocol; Site: right femoral; 08:20 Drug: morphine 4 mg Route: IVP; Site: right forearm; Outcome: 08:05 Discharge ordered by MD. chao 08:58 Patient left the ED. 5 Signatures: Dispatcher [employer] EDMS Mari Greer RN RN bb Williams, Irene, RN RN Jeremias Gomes 4 Caren Lacey 5 Rima Castro 2 Gil Garcia MD MD mh7 Dominik Feliciano RN RN da3 Lincoln Powell MD MD sp3
[2021-02-12 09:32] VITALS: TEMP 98.5
[2021-02-12 09:37] VITALS: BP 158/69; O2SAT 98
--- NOTE | 2021-02-12 12:03 | EKG ---
Test Date: 2021-02-12 Test Time: 05:19:03 Installer Technician: KARI MEASUREMENT RESULTS: Intervals: Rate: 75 MT: 152 QRSD: 140 QT: 440 QTc: 491 [place]: P: 47 MT: 152 QRS: -38 T: 120 INTERPRETIVE STATEMENTS: Normal sinus rhythm Left axis deviation Left bundle branch block Abnormal ECG Compared to ECG 12/17/2020 00:28:05 No significant changes Electronically Signed On 02-12-21 12:02:41 MICA PATCHER by Artemio Bolivar
== END 2021-02-12 08:58 | disposition home or self-care (01) ==
LOC: ER 00:44
DX: K86.1 Other chronic pancreatitis (principal)
CPT/HCPCS: 93005; 87088; 85025; 87086; 80048; 36415; 80076; 83690; 74177; 99284; Q9967; J7030; J2405; 81003; 81015

== ENCOUNTER 2021-03-27 21:13 | Emergency (ER) | payer OTHER ==
--- OUTSIDE RECORDS SUMMARY | 2021-03-27 21:17 | XMS REPORT | Continuity of Care Document ---
:1945 Author Organization [facility] t Address [address] [place] [address] Care Team Providers Name Role Phone Angelo Powell DO Primary Care Physician LAZARUS Attending Clinician Unavailable 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 11-09 Luke s - 00:00: Medical 00 [place] Acute Acute Disease Active [facility] pancreatit pancreatit 11-09 Mansi kes - is is 00:00: Medical 00 [place] Allergies, Adverse Reactions, Alerts Allergy Allergy Status Severity Reaction(s) Onset Inactive Treating Comm ents Source Name Type Date Date Clinician NO KNOWN Allergy Active [facility] Social History Social Habit Start Date Stop Date Quantity Comments Source History SDOH [facility] Std Drinks [facility] Center History SDOH [facility] - Alcohol Binge Medical Carl ter Sex Assigned At [facility] [place] kes [facility] Tobacco use and 2018-11-09 2018-11-[address] [facility] St Mansi quiñoness - exposure 00:00:00 00:00:00 [facility] Alcohol intake 2018-11-09 2018-11-[address] [facility] [place] es - 00:00:00 00:00:00 non-drinker of Medical Ce nter alcohol (finding) History SDOH 2018-11-09 2018-11-[address] [facility] [address] [place] - Alcohol Frequency 00:00:00 00:00:00 [facility] Smoking Status Start Date Stop Date Source Former smoker 2018-11-09 00:00:00 2018-11-09 00:00:00 [facility] Medications Ordered Filled Start Stop Current Ordering Indication Dosage Frequency Signature Comments Components Source Medication Medication Date Date Medication? Clinician (SIG) Name Name pantoprazol Yes 40mg Q.5D Take [address] [facility] 9-06 by mouth 2 [facility] - (PROTONIX) 17:24: (two) Medica l 40 MG 08 times Center tablet daily . lipase-prot Yes [id number]{ Take [facility] 9-06 lipase} 36,000 [...] Center tablet daily . lipase-prot 2018- Yes [id number]{ Take [facility] 9-06 lipase} 36,000 [...] Center tablet daily . lipase-prot 2019-0 Yes [id number]{ Take [facility] 9-06 lipase} 36,000 [...] 00:00:00 (1 of 1 - Medical Center [id number] PCV13) [code = PNEUMOCOCCAL 65+ YRS (1 of 1 - [id number] PCV13)] Future Scheduled 2012-12-28 PNEUMOCOCCAL 65+ YRS [facility] - Test 00:00:00 (1 of 1 - Medical Center [id number] PCV13) [code = PNEUMOCOCCAL 65+ YRS (1 of 1 - [id number] PCV13)] Future Scheduled 2012-12-28 PNEUMOCOCCAL 65+ Y[facility] - Test 00:00:00 (1 of 1 - Medical Center [id number]_Yaonksl PCV13) [code = PNEUMOCOCCAL 65+ YRS (1 of 1 - [id number]_Gkkypoh PCV13)] Future Scheduled 1997-12-28 SHINGLES VACCINES (1 [...] Medica l Center breast (procedure) [code = 913824179] Future Scheduled [address] [facility] [place] [facility] - Test 00:00:00 malignant neoplasm of Medica l Center colon (procedure) [code = 926017562] Future Scheduled [address] [facility] [place] [facility] - Test 00:00:00 malignant neoplasm of [facility]ica [facility] Center breast (procedure) [code = 194696926] Future Scheduled [address] [facility] [place] [facility] - Test 00:00:00 malignant neoplasm of Medica l Center colon (procedure) [code = 184860123] Future Scheduled [address] [facility] [place] [facility] - Test 00:00:00 malignant neoplasm of Medica l Center breast (procedure) [code = 004063502] Future Scheduled [address] [facility] [place] [facility] - Test 00:00:00 malignant neoplasm of Medica Center colon (procedure) [code = 770779742] Encounters Start End Encounter Admission Attending Care Care Encounter Source Date/Time Date/Time Type Type Clinicians Facility Department ID 2020-12-15 Inpatient [facility] [id number] [facility] 2021-03-10 2021-03-10 ambulatory [facility]ML[facility] [id number] [facility] 2021-03-06 2021-03-06 ambulatory [facility] [id number] [facility] 2021-03-05 2021-03-05 ambulatory [facility] [id number] [facility] 2021-01-27 2021-01-27 ambulatory [facility] [id number] [facility] 2020-12-25 2020-12-25 Outpatient [facility] [id number] [facility] 2020-12-20 2020-12-20 ambulatory [facility] [id number] [facility] 2020-12-02 2020-12-02 Outpatient [facility] [id number] [facility] 2020-12-02 2020-12-02 Outpatient [facility] [id number] [facility] 2020-12-02 2020-12-02 Outpatient [facility] [id number] [facility] 2020-10-16 2020-10-16 Outpatient [facility] [id number] [facility] 2020-10-16 2020-10-16 Outpatient [facility] [id number] [facility] 2020-10-10 2020-10-10 Outpatient [facility] [id number] [facility] 2020-09-25 2020-09-25 Outpatient [facility] [id number] [facility] 2020-09-20 2020-09-20 Outpatient [facility] [id number] [facility] 2020-09-04 2020-09-04 Outpatient [facility] [id number] [facility] 2020-09-04 2020-09-04 Outpatient [facility] [id number] [facility] 2020-09-04 2020-09-04 Outpatient [facility] [id number] [facility] 2020-09-03 2020-09-03 Outpatient [facility] [id number] [facility] 2020-08-27 2020-08-27 Outpatient [facility] [id number] [facility] 2020-08-15 2020-08-15 Outpatient [facility] [id number] [facility] 2020-08-14 2020-08-14 Outpatient [facility] [id number] [facility] 2020-08-01 2020-08-01 Outpatient [facility] [id number] [facility] 2020-07-24 2020-07-24 Outpatient [facility] [id number] [facility] 2020-07-16 2020-07-16 Outpatient [facility] [id number] [facility] 2020-07-16 2020-07-16 Outpatient [facility] [id number] [facility] 2020-07-10 2020-07-10 Outpatient [facility] [id number] [facility] 2020-07-05 2020-07-05 Outpatient [facility] [id number] [facility] 2020-06-27 2020-06-27 Outpatient [facility] [id number] [facility] 2020-06-24 2020-06-24 Outpatient [facility] [id number] [facility] 2020-06-19 2020-06-19 Outpatient [facility] [id number] [facility] 2020-05-20 2020-05-20 Outpatient [facility] [id number] [facility] 2020-05-14 2020-05-14 Outpatient [facility] [id number] [facility] 2020-04-19 2020-04-19 Outpatient STLC STLC [id number] [facility] 2020-04-16 2020-04-16 Outpatient [facility]LMLC STLC [id number] [facility] 2019-09-29 2019-09-29 [facility] [id number] 13:46:00 13:46:[address] [facility] [employer] s - Road [facility] Medicine l Medicine Outpati ent Clinics 2019-09-28 2019-09-28 [facility] [id number] [address] 11:00:00 11:00:00 t [employer] [facility] - Drive [facility] Medicine l Medicine Outpati ent Clinics 2019-09-28 2019-09-28 [facility] [id number] [address] 10:30:00 10:30:00 t [employer] [facility] Luke s - Drive [facility] Medicine l Medicine Outpati ent Clinics 2019-07-14 2019-07-14 [facility] [id number] 10:31:00 10:31:00 t [employer] s - Drive [facility] Medicine l Medicine Outpati ent Clinics 2018-12-15 2018-12-15 [facility] [id number] 16:00:00 16:00:00 t [employer] Luke s - Drive [facility] Medicine l Medicine Outpati ent Clinics 2018-09-14 2018-09-14 [facility] [id number] 15:45:00 15:45:00 t [employer] Luke s - Drive [facility] Medicine l Medicine Outpati ent Clinics 2018-08-30 2018-08-30 [facility] [id number] [address] 08:00:00 08:00:00 t [employer] [place] s - Drive [facility] Medicine l Medicine Outpati ent Clinics 2018-06-10 2018-06-10 [facility] [id number] [address] 16:46:00 16:46:00 t [employer] [place] s - [facility] Clinics 2018-06-09 2018-06-09 [facility] [id number] [address] 09:18:00 09:18:[address] [facility] Luke s - Road [facility] Medicine l Medicine Outpati ent Clinics 2018-06-07 2018-06-07 [facility] [id number] [address] 15:00:00 15:00:00 t [place] [place] - Drive [facility] Medicine l Medicine Outpati ent Clinics 2018-04-25 2018-04-25 [facility] [id number] [address] 09:15:00 09:15:00 t [employer] - Drive [facility] Medicine l Medicine Outpati ent Clinics 2018-03-09 2018-03-09 [facility] [id number] 16:00:00 16:00:00 t [employer] s - Drive [facility] Medicine l Medicine Outpati ent Clinics 2018-03-03 2018-03-03 [facility] [id number] [address] 08:52:00 08:52:00 t [employer] s - Drive [facility] Medicine l Medicine Outpati ent Clinics 2017-11-30 2017-11-30 [facility] [id number] 15:00:00 15:00:00 t [employer] s - Drive [facility] Medicine l Medicine Outpati ent Clinics 2017-09-30 2017-09-30 [facility] [id number] [address] 15:00:00 15:00:00 t Specialty/U Mansi kes - Specialty rology Memori [facility] /Urology Clinic l Clinic Outpati ent Clinics 2017-09-29 2017-09-29 [facility] [id number] 10:13:00 10:13:00 t [employer] s - Drive [facility] Medicine l Medicine Outpati ent Clinics 2017-09-28 2017-09-28 [facility] [id number] 14:00:00 14:00:00 t [employer] - Drive [facility] Medicine l Medicine Outpati ent Clinics Results Test Description Test Time Test Comments Results Result Comments Source PHOSPHORUS 2018-11-11 05:54:00 Test Item Value Reference Range Interpretation Comme nts PHOSPHORUS (BEAKER) (test code = 604) 3.6 mg/dL 2.3-4.7 [id number] 05:54:00 Test Item Value Reference Range Interpretation Comments MAGNESIUM (BEAKER) (test code = 1.8 mg/dL 1.6-2.6 627) BASIC METABOLIC [id number] 05:54:00 Test Item Value Reference Range Interpretation [...] APPLICABLE FOR DIALYSIS PATIEN TS. HEPATIC FUNCTION [id number] 05:54:00 Test Item Value Reference Range Interpretation [...] 6-55 347) CBC W/PLT COUNT & AUTO [id number] 05:43:00 Test Item Value Reference Range Interpretation [...] PERCENT (BEAKER) (test code = 2801) PROTHROMBIN [id number] 05:42:00 Test Item Value Reference Range Interpretation [...] is2.5-3.5 for patients wiht mechanical heart valves.HEMOGLOBIN [id number] 07:50:00 Test Item Value Reference Range Interpretation Comments HEMOGLOBIN A1C (BEAKER) (test code = 7.1 % 4.3-6.1 H 368) [id number] 04:53:00 Test Item Value Reference Range Interpretation Comments PHOSPHORUS (BEAKER) (test code = 3.2 mg/dL 2.3-4.7 604) [id number] 04:53:00 Test Item Value Reference Range Interpretation Comments MAGNESIUM (BEAKER) (test code = 1.8 mg/dL 1.6-2.6 627) BASIC METABOLIC [id number] 04:53:00 Test Item Value Reference Range Interpretation [...] APPLICABLE FOR DIALYSIS PATIEN TS. HEPATIC FUNCTION [id number] 04:53:00 Test Item Value Reference Range Interpretation [...] code = 12 U/L 6-55 347) PROTHROMBIN [id number] 04:19:00 Test Item Value Reference Range Interpretation [...] mechanical heart valves.CBC W/PLT COUNT & AUTO [id number] 04:14:00 Test Item Value Reference Range Interpretation [...] 0-1 PERCENT (BEAKER) (test code = 2801) [id number] 14:44:00 Test Item Value Reference Range Interpretation Comments LIPASE (BEAKER) (test code = 749) 972 U/L 8-78 H [id number] 13:06:00 Test Item Value Reference Range Interpretation Comments PHOSPHORUS (BEAKER) (test code = 3.3 mg/dL 2.3-4.7 604) [id number] 13:06:00 Test Item Value Reference Range Interpretation Comments MAGNESIUM (BEAKER) (test code = 2.0 mg/dL 1.6-2.6 627) BASIC METABOLIC [id number] 13:06:00 Test Item Value Reference Range Interpretation [...] NOT APPLICABLE FOR DIALYSIS PATIEN TS. LIPID [id number] 13:06:00 Test Item Value Reference Range Interpretation [...] 130-159 High 160-189 Very High >=190HEPATIC FUNCTION [id number] 13:06:00 Test Item Value Reference Range Interpretation [...] 6-55 347) CBC W/PLT COUNT & AUTO [id number] 12:46:00 Test Item Value Reference Range Interpretation [...] PERCENT (BEAKER) (test code = 2801) PROTHROMBIN [id number] 12:39:00 Test Item Value Reference Range Interpretation [...]
[2021-03-27] MEDS ORDERED: HYDROCODONE/APAP 5/325 MG TAB ONE (21:44)
--- NOTE | 2021-03-27 22:56 | RAD REPORT ---
EXAM DESCRIPTION: RAD - Femur Right - 03/27/2021 10:18 pm CLINICAL HISTORY: trauma COMPARISON: None FINDINGS: Right femur, knee, tibia/fibula and ankle - multiple projections are submitted No acute fracture or dislocation.
[2021-03-27] MEDS ORDERED: ONDANSETRON 4 MG (ODT) TAB ONE (22:57)
--- NOTE | 2021-03-27 23:44 | EDPHYS ---
Physician Documentation [facility] Name: Isadora Bettencourt Age: 75 yrs Sex: Female : 1945 Arrival Date: 03/27/2021 Time: 21:14 Bed 15 Private MD: ED Physician Gil Garcia HPI: 03/27 21:39 This 75 yrs old Female presents to ER via EMS with complaints of Fall Injury. [facility] 21:39 Details of fall: The patient fell from an upright position, while walking, and struck a 7 tile surface. Onset: The symptoms/episode began/occurred just prior to arrival, today. Associated injuries: The patient sustained anterior aspect of right ankle and right knee and right leg. Severity of symptoms: At their worst the symptoms were moderate, earlier today, in the emergency department the symptoms are unchanged, despite EMS interventions. Patient states that she tripped and fell when her cane got stuck on her rug causing her to fall onto her kitchen floor. She complains of pain to her right knee, leg and ankle. She denies any head trauma or LOC or other injuries. She denies any symptoms prior to falling including headache, neck pain, chest pain, abdominal pain, shortness of breath, nausea, vomiting, dizziness, numbness/tingling, or weakness.. 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 - Immunization history: Last tetanus immunization: unknown. - Social history:: Smoking status: Patient/guardian denies using tobacco, but has a distant history of tobacco abuse, Patient/guardian denies using alcohol. ROS: 21:39 Constitutional: Negative for fever, chills, and weight loss, Eyes: Negative for injury, mh7 pain, redness, and discharge, ENT: Negative for injury, pain, and discharge, Neck: Negative for injury, pain, and swelling, Cardiovascular: Negative for chest pain, palpitations, and edema, Respiratory: Negative for shortness of breath, cough, wheezing, and pleuritic chest pain, Abdomen/GI: Negative for abdominal pain, nausea, vomiting, diarrhea, and constipation, Back: Negative for injury and pain, : Negative for injury, bleeding, discharge, and swelling, Skin: Negative for injury, rash, and discoloration, Neuro: Negative for headache, weakness, numbness, tingling, and seizure, Psych: Negative for depression, anxiety, suicide ideation, homicidal ideation, and hallucinations, Allergy/Immunology: Negative for hives, rash, and allergies, Endocrine: Negative for neck swelling, polydipsia, polyuria, polyphagia, and marked weight changes, Hematologic/Lymphatic: Negative for swollen nodes, abnormal bleeding, and unusual bruising. Exam: 21:39 Constitutional: This is a well developed, well nourished patient who is awake, alert, mh7 and in no acute distress. Head/Face: Normocephalic, atraumatic. Eyes: Pupils equal round and reactive to light, extra-ocular motions intact. Lids and lashes normal. Conjunctiva and sclera are non-icteric and not injected. Cornea within normal limits. Periorbital areas with no swelling, redness, or edema. Neck: Trachea midline, no thyromegaly or masses palpated, and no cervical lymphadenopathy. Supple, full range of motion without nuchal rigidity, or vertebral point tenderness. No Meningismus. Chest/axilla: Normal chest wall appearance and motion. Nontender with no deformity. No lesions are appreciated. Cardiovascular: Regular rate and rhythm with a normal S1 and S2. No gallops, murmurs, or rubs. Normal PMI, no JVD. No pulse deficits. Respiratory: Lungs have equal breath sounds bilaterally, clear to auscultation and percussion. No rales, rhonchi or wheezes noted. No increased work of breathing, no retractions or nasal flaring. Abdomen/GI: Soft, non-tender, with normal bowel sounds. No distension or tympany. No guarding or rebound. No evidence of tenderness throughout. Back: No spinal tenderness. No costovertebral tenderness. Full range of motion. Skin: Warm, dry with normal turgor. Normal color with no rashes, no lesions, and no evidence of cellulitis. 21:39 Psych: Awake, alert, with orientation to person, place and time. Behavior, mood, and affect are within normal limits. 21:39 Musculoskeletal/extremity: Extremities: noted in the Right knee, right leg, right ankle: pain, tenderness, ROM: limited active range of motion due to pain, in the Right knee, right leg, right ankle, limited passive range of motion due to pain, in the Right knee, right leg, right ankle, Circulation is intact in all extremities. Sensation intact. Compartment Syndrome exam of affected extremity: is normal. no numbness, no tingling, no sensation deficit, no palor, no weak pulses, Joints: the right knee and right ankle displays painful range of motion, tenderness, Weight bearing: is unable to bear weight, Tendon exam: specific tendon testing normal through active and passive range of motion 21:39 Neuro: Orientation: is normal, Mentation: is normal, Memory: is normal, Cranial nerves: grossly normal, Cerebellar function: is grossly normal, Motor: is normal, Sensation: is normal, Gait: not tested. seizure activity, is not displayed by the patient, Abnormal movements: there are no abnormal movements. Vital Signs: 21:21 BP 180 / 102 LA Supine (auto/reg); Pulse 84 LA; Resp 20 S; Temp 98.3(O); Pulse Ox 100% tk1 on R/A; Pain 10/10; 21:24 BP 202 / 104; Pulse 87; Resp 18 S; Temp 98.1(O); Pulse Ox 100% on R/A; Weight 74.84 kg as6 (R); Height 5 ft. (152.40 cm) (R); Pain 10/10; 22:00 BP 175 / 105 LA Supine (auto/reg); Pulse 86 MON; Resp 18; Pulse Ox 100% on R/A; Pain tk1 10/10; 22:07 BP 175 / 105 Supine (auto/reg); Pulse 86 MON; Resp 18 S; Pulse Ox 100% on R/A; Pain tk1 10/10; 23:00 BP 170 / 102 LA Supine (auto/reg); Pulse 76 MON; Resp 16; Pulse Ox 98% ; tk 03/28 00:19 BP 151 / 91 LA Supine (auto/reg); Pulse 77 MON; Resp 18 S; Temp 98.2(O); Pulse Ox 100% tk1 ; Pain 9/10; 03/27 21:24 Body Mass Index 32.22 (74.84 kg, 152.40 cm) as6 Darcie Coma Score: 03/27 21:24 Eye Response: spontaneous(4). Verbal Response: oriented(5). Motor Response: obeys as6 commands(6). Total: 15. 21:29 Eye Response: spontaneous(4). Verbal Response: oriented(5). Motor Response: obeys tk1 commands(6). Total: 15. Trauma Score (Adult): 21:24 Eye Response: spontaneous(1); Verbal Response: oriented(1); Motor Response: obeys as6 commands(2); Systolic BP: > 89 mm Hg(4); Respiratory Rate: 10 to 29 per min(4); [place] Score: 15; Trauma Score: 12 MDM: 23:41 Differential diagnosis: abrasion, contusion, fracture, sprain, strain. Data reviewed: [facility] vital signs, nurses notes, EMS record, old medical records, radiologic studies, plain films. Data interpreted: Pulse oximetry: on room air is 98 %. Interpretation: normal. Counseling: I had a detailed discussion with the patient and/or guardian regarding: the historical points, exam findings, and any diagnostic results supporting the discharge/admit diagnosis, the presence of at least one elevated blood pressure reading (>120/80) during this emergency department visit, radiology results, the need for outpatient follow up, a orthopedic surgeon. Response to treatment: the patient's symptoms have markedly improved after treatment. 23:43 Patient medically screened. [facility] 03/27 21:37 Order name: Knee Right 3 View XRAY [facility] 03/27 21:37 Order name: Tib Fib Right XRAY [facility] 03/27 21:37 Order name: Ankle Right 3 View XRAY [facility] 03/27 21:38 Order name: Femur Right XRAY; Complete Time: 23:21 [facility] Administered Medications: 21:45 Drug: [place] (HYDROcodone-acetaminophen) 5 mg-325 mg 1 tabs Route: PO; tk1 22:07 Follow up: BP 175 / 105 Supine Left Arm Auto Regular; Pulse 86 bpm Monitor; Resp 18 bpm tk1 Spontaneous; Pulse Ox 100% RA; Pain 12/15 Adult 22:57 Drug: Ondansetron 4 mg Route: PO; tk1 Disposition Summary: 03/27/21 23:43 Discharge Ordered Location: Home [facility] Problem: new [facility] Symptoms: have improved [facility] Condition: Stable [facility] Diagnosis - Contusion, right knee and right leg [facility] - Sprain, right ankle [facility] Followup: [facility] - With: Private Physician - When: 1 - 2 days - Reason: Worsening of condition, Recheck today's complaints, Continuance of care, Re-evaluation by your physician Followup: [facility] - With: Weston Bush MD - When: 2 - 3 days - Reason: Worsening of condition, Recheck today's complaints Discharge Instructions: - Discharge Summary Sheet [facility] - How to Use a Walker [facility] - Ankle Sprain, [id number] [facility] - Contusion, [id number] [facility] Forms: - Medication Reconciliation Form [facility] - Thank You Letter [facility] - Antibiotic Education [facility] - Prescription Opioid Use [facility] Prescriptions: - Tylenol-Codeine #3 300 mg-30 mg Oral - take 2 tablet by ORAL route every 6 hours As needed; 15 tablet; Refills: 0, 7 Product Selection Permitted Signatures: Dispatcher [employer] Gil Monteiro MD MD 7 Woo Francis RN RN as6 Patricia Bishop tk1
--- NOTE | 2021-03-27 23:44 | ER ---
Nurse's Notes [facility] Name: Isadora Bettencourt Age: 75 yrs Sex: Female : 1945 Arrival Date: 03/27/2021 Time: 21:14 Bed 15 Private MD: Diagnosis: Contusion, right knee and right leg;Sprain, right ankle Presentation: 03/27 21:19 Chief complaint: EMS states: pt was walking in living room and tripped and fell over as6 the rug, pt c/o right sided pain. Care prior to arrival: None. Mechanism of Injury: Fall from standing position. Trauma event details: Injury occurred in the [facility]. 21:19 Acuity: FRANDY 3 as6 21:19 Method Of Arrival: EMS: [facility] as6 21:28 Coronavirus screen: At this time, the client does not indicate any symptoms associated as6 with coronavirus-19. Ebola Screen: No symptoms or risks identified at this time. Initial Sepsis Screen: Does the patient meet any 2 criteria? No. Patient's initial sepsis screen is negative. Does the patient have a suspected source of infection? No. Patient's initial sepsis screen is negative. Risk Assessment: Do you want to hurt yourself or someone else? Patient reports no desire to harm self or others. Onset of symptoms was March 27, 2021. 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 - Immunization history: Last tetanus immunization: unknown. - Social history:: Smoking status: Patient/guardian denies using tobacco, but has a distant history of tobacco abuse, Patient/guardian denies using alcohol. Screenin:29 Abuse screen: Denies threats or abuse. Denies injuries from another. Nutritional tk1 screening: No deficits noted. Tuberculosis screening: No symptoms or risk factors identified. Fall Risk Fall in past 12 months (25 points). Secondary diagnosis (15 points) impaired mobility, No IV (0 pts). Gait- Impaired (20 pts.). Mental Status- Oriented to own ability (0 pts). Total Mitchell Fall Scale indicates High Risk Score (45 or more points). Fall prevention measures have been instituted. Side Rails Up X 2 Placed Close to Nursing Station Frequent Obs/Assessments Occuring As available patient and family educated on Fall Prevention Program and Strategies. Primary Survey: 21:23 NO uncontrolled hemorrhage observed. A: Airway: patent. Breathing/Chest: Respiratory as6 pattern: regular, Respiratory effort: spontaneous. Circulation: Pulses: palpable . Disability Alert. Exposure/Environment: A warming method has been applied: A warm blanket has been provided to the patient. 21:31 Reassessment Breathing/Chest Respiratory pattern Regular Respiratory effort Spontaneous tk1 Unlabored Breath sounds Clear Chest inspection Symmetrical. Assessment: 21:21 General: Appears uncomfortable, well groomed, Behavior is calm, cooperative, agitated. tk1 Pain: Complains of pain in right knee Pain radiates to anterior aspect of right ankle Pain currently is 10 out of 10 on a pain scale. Quality of pain is described as aching, Pain began 1 hour ago. Is continuous, Alleviated by medications, Aggravated by weight bearing. Neuro: No deficits noted. Cardiovascular: No deficits noted. Respiratory: No deficits noted. Respiratory: Airway is patent Breath sounds are clear bilaterally. GI: No deficits noted. : No deficits noted. EENT: No deficits noted. Musculoskeletal: Capillary refill < 3 seconds, Range of motion: intact in all extremities, Tenderness present in right knee Reports pain in right knee and anterior aspect of right ankle Denies numbness in, right knee and anterior aspect of right ankle. Injury Description: No edema, bruising, or deformity noted. 21:22 General: Appears uncomfortable, Behavior is calm, cooperative. Pain: Complains of pain as6 in right dillon of body. 22:17 Reassessment: No changes from previously documented assessment. Patient states, she is tk1 incontinent of urine and needs to be change. Removed soiled brief, cleansed jose area, and new pad and brief applied. 22:58 Reassessment: Dr. Garcia updated on patient's c/o nausea. New verbal order received. tk1 GI: Reports nausea. 23:30 Reassessment: Patient verbalized nausea, not as bad. tk1 23:45 Reassessment: D/C per MD order. Discharge/Prescription instructions given to patient. tk1 Verbalized understanding. Patient refused to walk with walker to for discharge. Patient stood with walker for height adjustment. Patient states, I only walk a few feet at home anyway. Patient remained in in lobby awaiting son to bring her home. Vital Signs: 21:21 BP 180 / 102 LA Supine (auto/reg); Pulse 84 LA; Resp 20 S; Temp 98.3(O); Pulse Ox 100% tk1 on R/A; Pain 10; 21:24 BP 202 / 104; Pulse 87; Resp 18 S; Temp 98.1(O); Pulse Ox 100% on R/A; Weight 74.84 kg as6 (R); Height 5 ft. (152.40 cm) (R); Pain 10/; 22:00 BP 175 / 105 LA Supine (auto/reg); Pulse 86 MON; Resp 18; Pulse Ox 100% on R/A; Pain tk1 10/; 22:07 BP 175 / 105 Supine (auto/reg); Pulse 86 MON; Resp 18 S; Pulse Ox 100% on R/A; Pain tk1 10/; 23:00 BP 170 / 102 LA Supine (auto/reg); Pulse 76 MON; Resp 16; Pulse Ox 98% ; tk1 03/28 00:19 BP 151 / 91 LA Supine (auto/reg); Pulse 77 MON; Resp 18 S; Temp 98.2(O); Pulse Ox 100% tk1 ; Pain /; 03/27 21:24 Body Mass Index 32.22 (74.84 kg, 152.40 cm) as6 Darcie Coma Score: 03/27 21:24 Eye Response: spontaneous(4). Verbal Response: oriented(5). Motor Response: obeys as6 commands(6). Total: 15. 21:29 Eye Response: spontaneous(4). Verbal Response: oriented(5). Motor Response: obeys tk1 commands(6). Total: 15. Trauma Score (Adult): 21:24 Eye Response: spontaneous(1); Verbal Response: oriented(1); Motor Response: obeys as6 commands(2); Systolic BP: > 89 mm Hg(4); Respiratory Rate: 10 to 29 per min(4); Darcie Score: 15; Trauma Score: 12 ED Course: 21:14 Patient arrived in ED. 21:20 Patricia Bishop is Primary Nurse. tk1 21:22 Triage completed. as6 21:25 Gil Garcia MD is Attending Physician. [facility] 21:26 Bed in low position. Call light in reach. Side rails up X2. as6 21:26 Arm band placed on. as6 21:31 No provider procedures requiring assistance completed. tk1 22:17 Knee Right 3 View XRAY In Process Unspecified. EDMS 22:17 Tib Fib Right XRAY In Process Unspecified. EDMS 22:18 Ankle Right 3 View XRAY In Process Unspecified. EDMS 22:18 Femur Right XRAY In Process Unspecified. EDMS 23:42 Weston Bush MD is Referral Physician. [facility] 03/28 00:17 Adria wrap to right ankle Walker instructions and demonstration given. tk1 Administered Medications: 03/27 21:45 Drug: [place] (HYDROcodone-acetaminophen) 5 mg-325 mg 1 tabs Route: PO; tk1 22:07 Follow up: BP 175 / 105 Supine Left Arm Auto Regular; Pulse 86 bpm Monitor; Resp 18 bpm tk1 Spontaneous; Pulse Ox 100% RA; Pain 10/10 Adult 22:57 Drug: Ondansetron 4 mg Route: PO; tk1 Outcome: 23:43 Discharge ordered by . [facility] 03/28 00:18 Discharged to home via wheelchair. tk1 Condition: stable Discharge instructions given to patient, Instructed on discharge instructions, follow up and referral plans. no drinking with medication, no driving heavy equipment, medication usage, Walker usage. 00:21 Patient left the ED. tk1 Signatures: Dispatcher [employer] EDMS Gil Garcia MD MD [facility] Cece Mercado Woo Francis, RN RN as6 Patricia Bishop tk1
[2021-03-28 01:28] VITALS: BP 151/91; TEMP 98.2; O2SAT 100
--- NOTE | 2021-03-29 20:21 | RAD REPORT ---
EXAM DESCRIPTION: RAD - Ankle Right 3 View - 03/27/2021 10:18 pm CLINICAL HISTORY: Trauma COMPARISON: None FINDINGS: Right femur, knee, tibia/fibula and ankle - multiple projections are submitted No acute fracture or dislocation.
--- NOTE | 2021-03-29 20:21 | RAD REPORT ---
EXAM DESCRIPTION: RAD - Tib Fib Right - 03/27/2021 10:18 pm CLINICAL HISTORY: Trauma COMPARISON: None FINDINGS: Right femur, knee, tibia/fibula and ankle - multiple projections are submitted No acute fracture or dislocation.
== END 2021-03-28 00:21 | disposition home or self-care (01) ==
LOC: ER 21:13
DX: S93.401A Sprain of unspecified ligament of right ankle, initial encounter (principal); S80.11XA Contusion of right lower leg, initial encounter; W01.198A Fall on same level from slipping, tripping and stumbling with subsequent striking against other object, initial encounter; I10 Essential (primary) hypertension
CPT/HCPCS: 99284

== ENCOUNTER 2021-04-12 12:13 | Emergency (ER) | payer MEDICARE, OTHER ==
--- OUTSIDE RECORDS SUMMARY | 2021-04-12 12:17 | XMS REPORT | Continuity of Care Document ---
:[address] [facility] [place], [place] t Address [address] [place] [address] Care Team Providers Name Role Phone Angelo Powell DO Primary Care Physician Koko Powell Attending Clinician Unavailable CAYLAANNA Attending Clinician Un[facility] Admitting Clinician Unavailable Payers Payer Name Policy Type Policy Number Effective Date Expiration Date S wilfredo MEDICARE A B [id number] 2012 00:00:00 Problems Condition Condition Condition Status Onset Resolution Last Treating Co mments Source Name Details Category Date Date Treatment Clinician Date Essential Essential Disease Active [facility] hypertensi hypertensi 11-09 Mansi kes - on on 00:00: Medical 00 Nunda 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 11-09 Luke s - 00:00: Medical 00 Nunda Acute Acute Disease Active [facility] pancreatit pancreatit 11-09 Mansi kes - is is 00:00: Medical 00 Nunda Allergies, Adverse Reactions, Alerts Allergy Allergy Status Severity Reaction(s) Onset Inactive Treating Comm ents Source Name Type Date Date Clinician NO KNOWN Allergy Active [facility] Social History Social Habit Start Date Stop Date Quantity Comments Source History SDOH [facility] St[facility] Dr[facility] Med[facility] l Center History SDOH [facility] - Alcohol Binge Medical Carl ter Sex Assigned At [facility] Mansi juarez - [facility] Center Tobacco use and 2018-11-09 2018-11-09 Never used [facility] Mansi quiñoness - exposure 00:00:00 00:00:00 [facility] Alcohol intake 2018-11-09 2018-11-09 Current [facility] Cheyanne es - 00:00:00 00:00:00 non-drinker of Medical Ce nter alcohol (finding) History SDOH 2018-11-09 2018-11-09 [address] [facility] [address] Callejas - Alcohol Frequency 00:00:00 00:00:00 [facility] Smoking Status Start Date Stop Date Source Former smoker 2018-11-09 00:00:00 2018-11-09 00:00:00 [facility] Lindsey ukes [facility] Medications Ordered Filled Start Stop Current Ordering Indication Dosage Frequency Signature Comments Components Source Medication Medication Date Date Medication? Clinician (SIG) Name Name pantoprazol Yes 40mg Q.5D Take [address] [facility] 9-06 by mouth 2 [facility] - (PROTONIX) 17:24: (two) Medica l 40 MG 08 times Center tablet daily . lipase-prot 2018- Yes [id number]{ Take [facility]amyl[facility] 9-06 lipase} 36,000 [...] Center tablet daily . lipase-prot 2019-0 Yes [id number]{ Take [facility] 9-06 lipase} 36,000 [...] Center tablet daily . lipase-prot 2019-0 Yes [id number]{ Take [facility] 9-06 lipase} 36,000 [...] 00:00:00 (1 of 1 - Medical Center [id number] PCV13) [code = PNEUMOCOCCAL 65+ YRS (1 of 1 - [id number] PCV13)] Future Scheduled 2012-12-28 PNEUMOCOCCAL 65+ YRS [facility] - Test 00:00:00 (1 of 1 - Medical Center [id number] PCV13) [code = PNEUMOCOCCAL 65+ YRS (1 of 1 - [id number]_Eexldez PCV13)] Future Scheduled 2012-12-28 PNEUMOCOCCAL 65+ YRS [facility] - Test 00:00:00 (1 of 1 - Medical Center [id number]_Tdhyvet PCV13) [code = PNEUMOCOCCAL 65+ YRS (1 of 1 - [id number]_Xhibghu PCV13)] Future Scheduled 1997-12-28 SHINGLES VACCINES (1 [...] Medica l Center breast (procedure) [code = 684816481] Future Scheduled [address] [facility] [address] [facility] es - Test 00:00:00 malignant neoplasm of Medica l Center colon (procedure) [code = 435595069] Future Scheduled [address] [facility] es - Test 00:00:00 malignant neoplasm of Medica l Center breast (procedure) [code = 424722795] Future Scheduled [address] [facility] [facility] - Test 00:00:00 malignant neoplasm of Medica l Center colon (procedure) [code = 798773341] Future Scheduled [address] [facility] [facility] - Test 00:00:00 malignant neoplasm of Medica l Center breast (procedure) [code = 472946024] Future Scheduled [address] [facility] [facility] es - Test 00:00:00 malignant neoplasm of [facility] colon (procedure) [code = 169268226] Encounters Start End Encounter Admission Attending Care Care Encounter Source Date/Time Date/Time Type Type Clinicians Facility Department ID 2021-04-02 Outpatient Powell, [facility]15 D[facility] [id number] [facility] 2021-04-02 Outpatient Powell, [facility] Dmitry [id number] [facility] 2021-04-02 Outpatient Powell, [facility] 13[facility]38:40 [facility]mit[facility] [id number] [facility] 2021-04-02 Outpatient Powell, [facility] 13:36:48 Dmitry [id number] [facility] 2021-04-02 Outpatient Powell, [facility] 13[facility]28:35 Dmtiry [id number] [facility] 2021-04-02 Outpatient Powell, [facility] 13:28:20 Dmitry [id number] [facility] 2021-04-02 Outpatient Powell, [facility] 13:04:41 [facility]mitry [id number] [facility] 2021-04-02 Outpatient Powell, [facility] 12:55:20 [facility]mitry [id number] [facility] 2021-04-02 Outpatient Powell, [facility] [id number] 12:37:32 Dmitry [id number] [facility] 2021-04-02 Outpatient Powell, [facility] 11:40:56 Dmitry [id number] [facility] 2021-04-02 Outpatient Powell, [facility] [id number] 11:32:24 Dmitry [id number] [facility] 2021-04-02 Outpatient Powell, [facility] [id number] [facility] 10:59:26 Dmitry [id number] [facility] 2021-04-02 Outpatient Powell, [facility] [id number] 10:59:05 Dmitry [id number] [facility] 2020-12-15 Inpatient UR [facility] Urology [id number] [facility]39 [facility] 2021-04-10 2021-04-10 ambulatory [facility] [id number] [facility] 2021-04-03 2021-04-03 ambulatory [facility] [id number] [facility] 2021-03-10 2021-03-10 ambulatory [facility] [id number] [facility] 2021-03-06 2021-03-06 ambulatory [facility] [id number] [facility] 2021-03-05 2021-03-05 ambulatory [facility] [id number] [facility] 2021-01-27 2021-01-27 ambulatory [facility] [id number] [facility] 2020-12-25 2020-12-25 Outpatient [facility] [id number] [facility] 2020-12-20 2020-12-20 ambulatory [facility] [id number] [facility] 2020-12-02 2020-12-02 Outpatient [facility] [id number] [facility] 2020-12-02 2020-12-02 Outpatient [facility] [id number] [facility] 2020-12-02 2020-12-02 Outpatient [facility] [id number] [facility] 2020-10-16 2020-10-16 Outpatient [facility] [id number] [facility] 2020-10-16 2020-10-16 Outpatient [facility] [id number] [facility] 2020-10-10 2020-10-10 Outpatient [facility] [id number] [facility] 2020-09-25 2020-09-25 Outpatient [facility] [id number] [facility] 2020-09-20 2020-09-20 Outpatient [facility] [id number] [facility] 2020-09-04 2020-09-04 Outpatient [facility] [id number] [facility] 2020-09-04 2020-09-04 Outpatient [facility] [id number] [facility] 2020-09-04 2020-09-04 Outpatient [facility] [id number] [facility] 2020-09-03 2020-09-03 Outpatient [facility] [id number] [facility] 2020-08-27 2020-08-27 Outpatient [facility] [id number] [facility] 2020-08-15 2020-08-15 Outpatient [facility] [id number] [facility] 2020-08-14 2020-08-14 Outpatient [facility] [id number] [facility] 2020-08-01 2020-08-01 Outpatient [facility] [id number] [facility] 2020-07-24 2020-07-24 Outpatient [facility] [id number] [facility] 2020-07-16 2020-07-16 Outpatient [facility] [id number] [facility] 2020-07-16 2020-07-16 Outpatient [facility] [id number] [facility] 2020-07-10 2020-07-10 Outpatient [facility] [id number] [facility] 2020-07-05 2020-07-05 Outpatient [facility] [id number] [facility] 2020-06-27 2020-06-27 Outpatient [facility] [id number] [facility] 2020-06-24 2020-06-24 Outpatient [facility] [id number] [facility] 2020-06-19 2020-06-19 Outpatient [facility] [id number] [facility] 2020-05-20 2020-05-20 Outpatient [facility] [id number] [facility] 2020-05-14 2020-05-14 Outpatient [facility] [id number] [facility] 2020-04-19 2020-04-19 Outpatient [facility] [id number] [facility] 2020-04-16 2020-04-16 Outpatient [facility] [id number] [facility] 2019-09-29 2019-09-29 [facility] [id number] 13:46:00 13:46:00 t [facility] [address] [place] s - Road [facility] Outpati ent Clinics 2019-09-28 2019-09-28 [facility] [id number] 11:00:00 11:00:[address] Luke s - Drive [facility] Medicine Outpat[facility] ent Clinics 2019-09-28 2019-09-28 [facility] [id number] 10:30:00 10:30:[address] Luke s - Drive [facility] l Medicine Outpati ent Clinics 2019-07-14 2019-07-14 [facility] [id number] 10:31:00 10:31:[address] Luke s - Drive [facility] l Medicine Outpati ent Clinics 2018-12-15 2018-12-15 [facility] [id number] 16:00:00 16:00:[address] Luke s - Drive [facility] Medicine l Medicine Outpati ent Clinics 2018-09-14 2018-09-14 [facility] [id number] 15:45:00 15:45:[address] Luke s - Drive [facility] Medicine l Medicine Outpati ent Clinics 2018-08-30 2018-08-30 [facility] [id number] 08:00:00 08:00:[address] Luke s - Drive [facility] Medicine l Medicine Outpati ent Clinics 2018-06-10 2018-06-10 [facility] [id number] 16:46:00 16:46:[address] Luke s - Drive [facility] Medicine l Medicine Outpati ent Clinics 2018-06-09 2018-06-09 [facility] [id number] 09:18:00 09:18:00 t [facility] [address] [employer] s - Road [facility] Medicine Outpati ent Clinics 2018-06-07 2018-06-07 [facility] [id number] 15:00:00 15:00:[address] Luke s - Drive [facility] Medicine l Medicine Outpati ent Clinics 2018-04-25 2018-04-25 [facility] [id number] 09:15:00 09:15:[address] Luke s - Drive [facility] l Medicine Outpati ent Clinics 2018-03-09 2018-03-09 [facility] [id number] [address] 16:00:00 16:00:[address] Luke s - Drive [facility] Medicine l Medicine Outpati ent Clinics 2018-03-03 2018-03-03 [facility] [id number] [address] 08:52:00 08:52:[address] Luke s - Drive [facility] Medicine l Medicine Outpati ent Clinics 2017-11-30 2017-11-30 [facility] [id number] 15:00:00 15:00:[address] Luke s - Drive [facility] Medicine l Medicine Outpati ent Clinics 2017-09-30 2017-09-30 [facility] [id number] 15:00:00 15:00:00 t Specialty/U Mansi kes - Specialty rology Memori [facility] /Urology Clinic [facility] 2017-09-29 2017-09-29 Outpatient Jaswinder Parham [id number] 10:13:00 10:13:00 [facility] 2017-09-28 2017-09-28 Outpatient Jaswinder Parham [id number] 14:00:00 14:00:00 [facility] Results Test Description Test Time Test Comments Results Result Comments Source PHOSPHORUS 2018-11-11 05:54:00 Test Item Value Reference Range Interpretation Comme nts PHOSPHORUS (BEAKER) (test code = 604) 3.6 mg/dL 2.3-4.7 [id number] 05:54:00 Test Item Value Reference Range Interpretation Comments MAGNESIUM (BEAKER) (test code = 1.8 mg/dL 1.6-2.6 627) BASIC METABOLIC [id number] 05:54:00 Test Item Value Reference Range Interpretation [...] APPLICABLE FOR DIALYSIS PATIEN TS. HEPATIC FUNCTION [id number] 05:54:00 Test Item Value Reference Range Interpretation [...] 6-55 347) CBC W/PLT COUNT & AUTO [id number] 05:43:00 Test Item Value Reference Range Interpretation [...] PERCENT (BEAKER) (test code = 2801) PROTHROMBIN [id number] 05:42:00 Test Item Value Reference Range Interpretation [...] is2.5-3.5 for patients wiht mechanical heart valves.HEMOGLOBIN [id number] 07:50:00 Test Item Value Reference Range Interpretation Comments HEMOGLOBIN A1C (BEAKER) (test code = 7.1 % 4.3-6.1 H 368) [id number] 04:53:00 Test Item Value Reference Range Interpretation Comments PHOSPHORUS (BEAKER) (test code = 3.2 mg/dL 2.3-4.7 604) [id number] 04:53:00 Test Item Value Reference Range Interpretation Comments MAGNESIUM (BEAKER) (test code = 1.8 mg/dL 1.6-2.6 627) BASIC METABOLIC [id number] 04:53:00 Test Item Value Reference Range Interpretation [...] APPLICABLE FOR DIALYSIS PATIEN TS. HEPATIC FUNCTION [id number] 04:53:00 Test Item Value Reference Range Interpretation [...] code = 12 U/L 6-55 347) PROTHROMBIN [id number] 04:19:00 Test Item Value Reference Range Interpretation [...] mechanical heart valves.CBC W/PLT COUNT & AUTO [id number] 04:14:00 Test Item Value Reference Range Interpretation [...] 0-1 PERCENT (BEAKER) (test code = 2801) [id number] 14:44:00 Test Item Value Reference Range Interpretation Comments LIPASE (BEAKER) (test code = 749) 972 U/L 8-78 H [id number] 13:06:00 Test Item Value Reference Range Interpretation Comments PHOSPHORUS (BEAKER) (test code = 3.3 mg/dL 2.3-4.7 604) [id number] 13:06:00 Test Item Value Reference Range Interpretation Comments MAGNESIUM (BEAKER) (test code = 2.0 mg/dL 1.6-2.6 627) BASIC METABOLIC [id number] 13:06:00 Test Item Value Reference Range Interpretation [...] NOT APPLICABLE FOR DIALYSIS PATIEN TS. LIPID [id number] 13:06:00 Test Item Value Reference Range Interpretation [...] 130-159 High 160-189 Very High >=190HEPATIC FUNCTION [id number] 13:06:00 Test Item Value Reference Range Interpretation [...] 6-55 347) CBC W/PLT COUNT & AUTO [id number] 12:46:00 Test Item Value Reference Range Interpretation [...] PERCENT (BEAKER) (test code = 2801) PROTHROMBIN [id number] 12:39:00 Test Item Value Reference Range Interpretation [...]
[2021-04-12 13:03] LABS: Hematocrit 36.4 % (36.0-45.0); Lymphocytes % 22.9 % (15.3-44.8); MPV 7.9 fL (7.6-11.3); RBC Red Blood Cell Count 4.88 M/uL (3.86-4.86)
[2021-04-12 13:07] LABS: Protime INR 1.06
[2021-04-12 13:20] LABS: Potassium 4.2 mmol/L (3.5-5.1)
--- NOTE | 2021-04-12 14:22 | RAD REPORT ---
EXAM DESCRIPTION: CT - Head C Spine Graham Kenny - 04/12/2021 1:57 pm CLINICAL HISTORY: Head and neck injury with chest and abdominal pain status post fall. Head and neck pain . TECHNIQUE: Computed axial tomography of the head and cervical spine was obtained Computed axial tomography of the chest, abdomen and pelvis was obtained. 100 cc Isovue-300 was given intravenously coronal and sagittal reconstruction was performed. All CT scans are performed using dose optimization technique as appropriate and may include automated exposure control or mA/KV adjustment according to patient size. COMPARISON: 2020 FINDINGS: An intracranial bleed is not seen. The ventricles are normal in caliber. An extra-axial fl uid collection is not noted. Fluid within the sinuses is not seen A cervical fracture is not seen. No dislocation is seen. Mild anterior subluxation C4 on C5 and C5 on C6 is unchanged. A mediastinal hematoma is not noted. A pleural effusion is not present. A lung contusion is not seen. The liver, spleen, pancreas, adrenals, kidneys and bladder do not demonstrate a traumatic injury Mild peripancreatic stranding may indicate a mild pancreatitis. Moderate hiatal hernia. Chronic pneum obilia IMPRESSION: No acute intracranial abnormality is seen A cervical fracture is not visualized. If the patient continues have symptoms to suggest intracranial /spinal cord pathology then MRI would be recommended. No traumatic injury involving the chest, abdomen or pelvis is seen.
--- NOTE | 2021-04-12 14:27 | RAD REPORT ---
EXAM DESCRIPTION: RAD - Knee Left 2 View - 04/12/2021 2:07 pm CLINICAL HISTORY: Knee pain FINDINGS: No fracture or dislocation seen
--- NOTE | 2021-04-12 14:28 | RAD REPORT ---
EXAM DESCRIPTION: RAD - Knee Right 2 View - 04/12/2021 2:07 pm CLINICAL HISTORY: Right knee pain status post injury FINDINGS: No fracture or dislocation is seen. Limited 2 series
--- NOTE | 2021-04-12 14:30 | RAD REPORT ---
EXAM DESCRIPTION: RAD - Foot Right 3 View - 04/12/2021 2:07 pm CLINICAL HISTORY: Right foot pain status post injury FINDINGS: No fracture or dislocation is seen
--- NOTE | 2021-04-12 15:50 | ER ---
Nurse's Notes [facility]ad Name: Isadora Bettencourt Age: 75 yrs Sex: Female : 1945 Arrival Date: 04/12/2021 Time: 12:16 Bed DX1 Private MD: Diagnosis: Fall on same level from slipping, tripping and stumbling without subsequent striking against object Presentation: 04/12 12:16 Chief complaint: Patient states: pt tripped and fell/dizzness. Coronavirus screen: olivares Vaccine status: Patient reports receiving the 2nd dose of the covid vaccine. Patient reports receiving the 1st dose of the Covid vaccine. Ebola Screen: Patient denies travel to an Ebola-affected area in the 21 days before illness onset. 12:16 Method Of Arrival: EMS: [facility] 12:20 Initial Sepsis Screen: Does the patient meet any 2 criteria? No. Patient's initial olivares sepsis screen is negative. Does the patient have a suspected source of infection? No. Patient's initial sepsis screen is negative. Risk Assessment: Do you want to hurt yourself or someone else? Patient reports no desire to harm self or others. Onset of symptoms was April 12, 2021. 12:20 Acuity: FRANDY 3 olivares Triage Assessment: 12:18 General: Appears in no apparent distress. Behavior is calm, cooperative. Pain: olivares Complains of pain in scalp and back. 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 - Social history:: Smoking status: Patient denies any tobacco usage or history of. - Family history:: not pertinent. - Hospitalizations: : No recent hospitalization is reported. Screenin:19 Abuse screen: Denies threats or abuse. Denies injuries from another. Nutritional olivares screening: No deficits noted. Tuberculosis screening: No symptoms or risk factors identified. Fall Risk Fall in past 12 months (25 points). Assessment: 12:19 General: Appears in no apparent distress. Pain: Complains of pain in scalp and back. olivares Musculoskeletal: Reports pain in scalp and back Pain is 8 out of 10 on a pain scale. 12:31 Neuro: Level of Consciousness is awake, alert, obeys commands, Oriented to person, ic1 place, Speech is normal, Facial symmetry appears normal, Pupils are PERRLA. Cardiovascular: Rhythm is sinus rhythm. Respiratory: No deficits noted. GI: No deficits noted. : No deficits noted. 12:33 Reassessment: Pt arrived on backboard while in c-collar d/t fall that occurred around ic1 0930 on today. Pt states she felt dizzy, tripped and fell. Pt states she landed backwards. Was found lying on R side. Pt denies blood thinners or pos LOC. States she is currently taking antibiotics for uti. 12:33 Reassessment: Pt removed from backboard. ic1 Vital Signs: 12:16 BP 200 / 117; Pulse 116; Resp 18; Pulse Ox 95% on R/A; Weight 81.65 kg; Height 5 ft. 1 olivares in. (154.94 cm); 12:31 BP 188 / 101; Pulse 79; Resp 18; Pulse Ox 100% on R/A; ic1 15:06 BP 152 / 139; Pulse 81; Resp 18; Pulse Ox 97% on R/A; olivares 16:08 BP 129 / 86; Pulse 80; Resp 16; Pulse Ox 100% on R/A; ic1 12:16 Body Mass Index 34.01 (81.65 kg, 154.94 cm) ED Course: 12:16 Patient arrived in ED. olivares 12:18 Arm band placed on. olivares 12:19 Bed in low position. olivares 12:20 Triage completed. olivares 12:30 Lore Tsai RN is Primary Nurse. ic1 12:31 phototypesetting equipment monitor on. Pulse ox on. NIBP on. Door closed. Warm blanket given. ic1 12:31 Inserted saline lock: 20 gauge in left antecubital area, using aseptic technique. Blood ic1 collected. 12:32 Jose Prater MD is Attending Physician. rn 12:57 Protime (+inr) Sent. ic1 12:58 Ptt, Activated Sent. ic1 12:58 Basic Metabolic Panel Sent. ic1 12:58 CBC with Diff Sent. ic1 13:57 CT Traumagram (Head C Spine CAP W Con) In Process Unspecified. EDMS 14:07 Foot Right 3 View XRAY In Process Unspecified. EDMS 14:07 Knee Left 2 View XRAY In Process Unspecified. EDMS 14:07 Knee Right 2 View XRAY In Process Unspecified. EDMS 16:19 intact, bleeding controlled, No redness/swelling at site. Pressure dressing applied. ic1 Administered Medications: No medications were administered Outcome: 15:50 Discharge ordered by . rn 16:18 Discharged to home via wheelchair, with family, Called son Hugh for pickup. Stated he ic1 would be on his way. 16:18 Condition: stable 16:18 Discharge instructions given to patient, family, Instructed on discharge instructions, follow up and referral plans. Demonstrated understanding of instructions, follow-up care. 16:47 Patient left the ED. ic1 Signatures: Dispatcher [employer] Jose Ye MD MD rn ReymundorRadha RN RN Lore Hurley RN RN ic1 Corrections: (The following items were deleted from the chart) 12:19 12:18 Home Meds: unable to verify home meds; olivares olivares 12:32 12:19 No provider procedures requiring assistance completed. olivares ic1 12:32 12:19 Inserted saline lock: 20 gauge in left antecubital area, using aseptic technique. ic1 olivares 12:32 12:19 No provider procedures requiring assistance completed. ic1 ic1
--- NOTE | 2021-04-12 15:50 | EDPHYS ---
Physician Documentation [facility] Name: Isadora Bettencourt Age: 75 yrs Sex: Female : 1945 Arrival Date: 04/12/2021 Time: 12:16 Bed DX1 Private MD: ED Physician Jose Prater HPI: 04/12 14:16 This 75 yrs old Female presents to ER via EMS with complaints of fall. rn 14:16 Details of fall: The patient fell from an upright position, while standing. Onset: The rn symptoms/episode began/occurred just prior to arrival. Associated injuries: The patient sustained injury to the head, injury to the chest, injury to the abdomen, Right leg and left knee. Severity of symptoms: At their worst the symptoms were mild, in the emergency department the symptoms are unchanged. The patient has not experienced similar symptoms in the past. The patient has not recently seen a physician. Patient reports fall prior to arrival, fell backward, denies LOC. Denies taking blood thinners. Reports pain to head/chest/abdomen/both knees, right foot.. 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 - Social history:: Smoking status: Patient denies any tobacco usage or history of. - Family history:: not pertinent. - Hospitalizations: : No recent hospitalization is reported. ROS: 14:16 Constitutional: Negative for fever, chills, and weight loss, Eyes: Negative for injury, rn pain, redness, and discharge, Neck: Negative for injury, pain, and swelling, Cardiovascular: Negative for palpitations, and edema, Respiratory: Negative for shortness of breath, cough, wheezing Abdomen/GI: Negative for nausea, vomiting, diarrhea, and constipation, Back: Negative for injury and pain, : Negative for injury, bleeding, discharge, and swelling, MS/Extremity: Positive for injury and pain to both knees and right foot Skin: Negative for injury, rash, and discoloration, Neuro: Negative for numbness, tingling, and seizure. Exam: 14:16 Constitutional: This is a well developed, well nourished patient who is awake, alert, rn and in no acute distress. Head/Face: Normocephalic, atraumatic. Eyes: Pupils equal round and reactive to light, extra-ocular motions intact. ENT: No oral laceration or swelling Neck: In c-collar, trachea midline, no midline cervical tenderness Chest/axilla: Mild anterior costal tenderness, no crepitus or depressions noted Cardiovascular: Regular rate and rhythm . No pulse deficits. Respiratory: No increased work of breathing, no retractions or nasal flaring. Abdomen/GI: Soft, mild epigastric tenderness, no rebound or masses Back: No spinal tenderness. Skin: Warm, dry MS/ Extremity: Pulses equal, no cyanosis. Mild painful range of motion of bilateral knees and right foot without focal bony tenderness/ecchymosis/open wounds/swelling Neuro: Awake and alert, GCS 15, moves all 4 extremities spontaneously and equally. Vital Signs: 12:16 BP 200 / 117; Pulse 116; Resp 18; Pulse Ox 95% on R/A; Weight 81.65 kg; Height 5 ft. 1 olivares in. (154.94 cm); 12:31 BP 188 / 101; Pulse 79; Resp 18; Pulse Ox 100% on R/A; ic1 15:06 BP 152 / 139; Pulse 81; Resp 18; Pulse Ox 97% on R/A; olivares 16:08 BP 129 / 86; Pulse 80; Resp 16; Pulse Ox 100% on R/A; ic1 12:16 Body Mass Index 34.01 (81.65 kg, 154.94 cm) olivares MDM: 12:32 Patient medically screened. rn 15:48 Differential diagnosis: closed head injury, contusion, fracture, sprain, strain. Data rn reviewed: vital signs, nurses notes, lab test result(s), radiologic studies, CT scan, plain films, and as a result, I will discharge patient. Counseling: I had a detailed discussion with the patient and/or guardian regarding: the historical points, exam findings, and any diagnostic results supporting the discharge/admit diagnosis, lab results, radiology results, the need for outpatient follow up, to return to the emergency department if symptoms worsen or persist or if there are any questions or concerns that arise at home. Response to treatment: the patient's symptoms have markedly improved after treatment, and as a result, I will discharge patient. Special discussion: Based on the patient's history, exam and DX evaluation, there is no indication for emergent intervention or inpatient TX. It is understood by the patient/guardian that if the SXs persist or worsen they need to return immediately for re-evaluation. I discussed with the patient/guardian in detail that at this point there is no indication for admission to the hospital. It is understood, however, that if the symptoms persist or worsen the patient needs to return immediately for re-evaluation. ED course: No acute findings on CT imaging. X-rays negative for fracture. Patient now sitting up on her own with improved range of motion of legs. Is actually trying to get out of bed and go to the bathroom. Will discharge home with return precautions.. 04/12 12:37 Order name: CBC with Diff; Complete Time: 13:35 rn 04/12 12:37 Order name: Basic Metabolic Panel; Complete Time: 13:35 rn 04/12 12:37 Order name: CT Traumagram (Head C Spine CAP W Con); Complete Time: 14:33 rn 04/12 12:37 Order name: Protime (+inr); Complete Time: 13:35 rn 04/12 12:37 Order name: Ptt, Activated; Complete Time: 13:35 rn 04/12 12:40 Order name: Foot Right 3 View XRAY; Complete Time: 14:33 eb 04/12 12:37 Order name: IV Start; Complete Time: 12:51 rn 04/12 12:40 Order name: Knee Left 2 View XRAY; Complete Time: 14:33 eb 04/12 12:40 Order name: Knee Right 2 View XRAY; Complete Time: 14:33 eb Administered Medications: No medications were administered Disposition Summary: 04/12/21 15:50 Discharge Ordered Location: Home rn Problem: new rn Symptoms: have improved rn Condition: Stable rn Diagnosis - Fall on same level from slipping, tripping and stumbling without subsequent rn striking against object Followup: rn - With: Private Physician - When: As needed - Reason: Recheck today's complaints, Re-evaluation by your physician Discharge Instructions: - Discharge Summary Sheet rn - Fall Prevention in the Home, Adult rn Forms: - Medication Reconciliation Form rn - Thank You Letter rn - Antibiotic securities attorney - Prescription Opioid Use rn Signatures: Dispatcher [employer] Jose Ye MD MD rn Au-Stager, Heather, RN RN ha Corrections: (The following items were deleted from the chart) 12:19 12:18 Home Meds: unable to verify home meds; olivares olivares
[2021-04-12 16:57] VITALS: BP 129/86; O2SAT 100
--- NOTE | 2021-04-14 11:34 | EKG ---
Test Date: 2021-04-12 Test Time: 12:25:46 Central Supply Worker: HELIO MEASUREMENT RESULTS: Intervals: Rate: 77 RI: 142 QRSD: 134 QT: 432 QTc: 488 [place]: P: 106 RI: 142 QRS: -36 T: 115 INTERPRETIVE STATEMENTS: Sinus rhythm with premature supraventricular complexes Left axis deviation Left bundle branch block Abnormal ECG Compared to ECG 02/12/2021 05:19:03 Atrial premature complex(es) now present Electronically Signed On 04-14-21 11:30:44 [employer] PROGRAM DIRECTOR by Artemio Bolivar
== END 2021-04-12 16:47 | disposition home or self-care (01) ==
LOC: ER 12:13
DX: Z04.3 Encounter for examination and observation following other accident (principal); W01.0XXA Fall on same level from slipping, tripping and stumbling without subsequent striking against object, initial encounter
CPT/HCPCS: 93005; 85025; 80048; 36415; 85610; 85730; 70450; 72125; 71260; 74177; 73630; 73560 ×2; 99284; Q9967

== ENCOUNTER 2021-07-27 04:06 | Observation (INO) | payer MEDICARE, OTHER ==
--- OUTSIDE RECORDS SUMMARY | 2021-07-27 04:10 | XMS REPORT | Continuity of Care Document ---
:1945 Author Organization [facility] t Address [address] [place] [address] Care Team Providers Name Role Phone Angelo Powell DO Primary Care Physician Koko Powell Attending Clinician Unavailable LAZARUS Attending Clinician Unavailable LAZARUS Admitting Clinician Unavailable Payers Payer Name Policy Type Policy Number Effective Date Expiration Date S wilfredo MEDICARE A B [id number] 2012 00:00:00 FORMERLY [facility] [id number] (MEDICARE 00:00:00 REPLACEMENT HMO) Problems Condition Condition Condition Status Onset Resolution Last Treating Co mments Source Name Details Category Date Date Treatment Clinician Date Essential Essential Disease Active [facility] hypertensi 11-09 Mansi kes on on 00:00: Medical 00 Center 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 11-09 Luke s 00:00: Medical 00 [place] Acute Acute Disease Active [facility] pancreatit pancreatit 11-09 Mansi kes is is 00:00: Medical 00 Center Allergies, Adverse Reactions, Alerts Allergy Allergy Status Severity Reaction(s) Onset Inactive Treating Comm ents Source Name Type Date Date Clinician NO KNOWN Allergy Active [facility] Social History Social Habit Start Date Stop Date Quantity Comments Source History SDOH [facility] Alcohol Std Drinks Medica l Center History [facility] Alcohol Binge Medical [facility] Sex Assigned At [facility] Tobacco use and 2018-11-09 2018-11-09 Never used [facility] Nazario kes exposure 00:00:00 00:00:00 [facility] Alcohol intake 2018-11-09 2018-11-[address] [facility] [address] [place] es 00:00:00 00:00:00 non-drinker of Medical Ce nter alcohol (finding) History SDOH 2018-11-09 2018-11-[address] [facility] Alcohol Frequency 00:00:00 00:00:00 [facility] Smoking Status Start Date Stop Date Source Former smoker 2018-11-09 00:00:00 2018-11-09 00:00:00 [facility] Medications Ordered Filled Start Stop Current Ordering Indication Dosage Frequency Signature Comments Components Source Medication Medication Date Date Medication? Clinician (SIG) Name Name pantoprazol Yes 40mg Q.5D Take [address] [facility] 9-06 by mouth 2 [facility] (PROTONIX) 17:24: (two) Medica l 40 MG 08 times Center tablet daily . lipase-prot 2018- Yes [id number]{ Take [facility]-amyl[facility] 9-06 lipase} 36,000 [place] es e (CREON) 17:24: units of Medi oralia 36,000-114, [address] 000- mouth 3 180,000 (three) unit CpDR times capsule daily with meals. metoprolol 2019- Yes 50mg QD Take [address] (LOPRESSOR) 9-06 by mouth Luke s 50 MG 17:24: daily. Medical tablet 08 Center gabapentin 2019-0 Yes 100mg Q.5D Take [address] (NEURONTIN) 9-06 mg by [facility] 100 MG 17:24: mouth 2 Medical capsule 08 (two) Center times daily. lisinopril 2019-0 Yes 40mg QD Take [address] (PRINIVIL,Z 9-06 by mouth Luke s ESTRIL) 40 17:24: daily. Medic al MG tablet 08 Center pantoprazol Yes 40mg Q.5D Take [address] [facility] 9-06 by mouth 2 [facility] (PROTONIX) 17:24: (two) Medica l 40 MG 08 times Center tablet daily . lipase-prot 2019-0 Yes [id number]{ Take [facility] 9-06 lipase} 36,000 [place] e (CREON) 17:24: units of Medi oralia 36,000-114, [address] 000- mouth 3 180,000 (three) unit CpDR times capsule daily with meals. metoprolol 2019-0 Yes 50mg QD Take [address] (LOPRESSOR) 9-06 by mouth Luke s 50 MG 17:24: daily. Medical tablet 08 Center gabapentin 2019-0 Yes 100mg Q.5D Take [address] (NEURONTIN) 9-06 mg by [facility] 100 MG 17:24: mouth 2 Medical capsule 08 (two) Center times daily. lisinopril 2019-0 Yes 40mg QD Take [address] (PRINIVIL,Z 9-06 by mouth Luke s ESTRIL) 40 17:24: daily. Medic al MG tablet 08 Center pantoprazol 2019-0 Yes 40mg Q.5D Take [address] [facility] 9-06 by mouth 2 [facility] (PROTONIX) 17:24: (two) Medica l 40 MG 08 times Center tablet daily . lipase-prot 2019-0 Yes [id number]{ Take [facility] 9-06 lipase} 36,000 [place] e (CREON) 17:24: units of Medi oralia 36,000-114, [address] 000- mouth 3 180,000 (three) unit CpDR times capsule daily with meals. metoprolol 2019-0 Yes 50mg QD Take [address] (LOPRESSOR) 9-06 by mouth Luke s 50 MG 17:24: daily. Medical tablet 08 Center gabapentin 2019-0 Yes 100mg Q.5D Take [address] (NEURONTIN) 9-06 mg by [facility] 100 MG 17:24: mouth 2 Medical capsule 08 (two) Center times daily. lisinopril 2019-0 Yes 40mg QD Take [address] (PRINIVIL,Z 9-06 by mouth Luke s ESTRIL) 40 17:24: daily. Medic al MG tablet 08 Center albuterol 2019-0 Yes 2.5mg Take 0.[address] (PROVENTIL) 9-06 mLs (2.5 Luke s 2.5 mg/0.5 00:00: mg total) Me dical mL Nebu 00 by Center nebulizer nebulizati solution on every 4 (four) hours as needed. albuterol 2019-0 Yes 2.5mg Take 0.[address] (PROVENTIL) 9-06 mLs (2.5 Luke s 2.5 mg/0.5 00:00: mg total) Me dical mL Nebu 00 by Center nebulizer nebulizati solution on every 4 (four) hours as needed. albuterol 2019-0 Yes 2.5mg Take 0.[address] (PROVENTIL) 9-06 mLs (2.5 Luke s 2.5 mg/0.5 00:00: mg total) Me dical mL Nebu 00 by Center nebulizer nebulizati solution on every 4 (four) hours as needed. Clotrimazol Clotrimazol 2019- No Dmitry 1 Common e e 10-12 Powell applicatio Spirit 00:00 n to - [facility]I :00 affected [facility] Procedures This patient has no known procedures. Plan of Care Planned Activity Planned Date Details Comments Source Future Scheduled 2020-11-[address] [facility] Test 00:00:00 (Season Ended) [code = Medic al Center INFLUENZA VACCINE (Season Ended)] Future Scheduled 2020-11-[address] [facility] Test 00:00:00 (Season Ended) [code = Medic al Center INFLUENZA VACCINE (Season Ended)] Future Scheduled 2020-11-[address] [facility] Test 00:00:00 (Season Ended) [code = [facility] al Center INFLUENZA VACCINE (Season Ended)] Future Scheduled 2020-03-[address] [facility] Test 00:00:00 (12+) [code = Medical Center DEPRESSION SCREENING (12+)] Future Scheduled 2020-03-[address] [facility] Test 00:00:00 (12+) [code = Medical Center DEPRESSION SCREENING (12+)] Future Scheduled 2020-03-[address] [facility] Test 00:00:00 (12+) [code = Medical Center DEPRESSION SCREENING (12+)] Future Scheduled 2013-12-[address] [facility] Test 00:00:00 WELLNESS (YEAR 2 or Medical Center FIRST YEAR if no IPPE) [code = MEDICARE ANNUAL WELLNESS (YEAR 2 or FIRST YEAR if no IPPE)] Future Scheduled 2013-12-[address] [facility] Test 00:00:00 WELLNESS (YEAR 2 or Medical Center FIRST YEAR if no IPPE) [code = MEDICARE ANNUAL WELLNESS (YEAR 2 or FIRST YEAR if no IPPE)] Future Scheduled 2013-12-[address] [facility] Test 00:00:00 WELLNESS (YEAR 2 or Medical Center FIRST YEAR if no IPPE) [code = MEDICARE ANNUAL WELLNESS (YEAR 2 or FIRST YEAR if no IPPE)] Future Scheduled 2012-12-28 PNEUMOCOCCAL 65+ YRS [facility] Test 00:00:00 (1 of 1 - Medical Center [id number] PCV13) [code = PNEUMOCOCCAL 65+ YRS (1 of 1 - [id number] PCV13)] Future Scheduled 2012-12-28 PNEUMOCOCCAL 65+ Y[facility] Test 00:00:00 (1 of 1 - Medical Center [id number] PCV13) [code = PNEUMOCOCCAL 65+ YRS (1 of 1 - [id number] PCV13)] Future Scheduled 2012-12-28 PNEUMOCOCCAL 65+ Y[facility] Test 00:00:00 (1 of 1 - [facility] Center [id number] PCV13) [code = PNEUMOCOCCAL 65+ YRS (1 of 1 - [id number] PCV13)] Future Scheduled 1997-12-28 SHINGLES VACCINES ([address] [facility] Test 00:00:00 of 2) [code = SHINGLES Medic al Center VACCINES (1 of 2)] Future Scheduled 1997-12-28 SHINGLES VACCINES ([address] [facility] Test 00:00:00 of 2) [code = SHINGLES Medic al Center VACCINES (1 of 2)] Future Scheduled 1997-12-28 SHINGLES VACCINES ([address] [facility] Test 00:00:00 of 2) [code = SHINGLES Medic al Center VACCINES (1 of 2)] Future Scheduled 1966-12-28 DTAP/TDAP/TD [facility]ACCINES [facility] 00:00:00 (1 - Tdap) [code = Medical C enter DTAP/TDAP/TD VACCINES (1 - Tdap)] Future Scheduled 1966-12-28 DTAP/TDAP/TD VACCINES [facility] Test 00:00:00 (1 - Tdap) [code = Medical C enter DTAP/TDAP/TD VACCINES (1 - Tdap)] Future Scheduled 1966-12-28 DTAP/TDAP/TD VACCINES [facility] 00:00:00 (1 - Tdap) [code = Medical C enter DTAP/TDAP/TD VACCINES (1 - Tdap)] Future Scheduled 1965-12-28 HEPATITIS C SCRE[facility]ING [facility] Test 00:00:00 [code = HEPATITIS C Medical Center SCREENING] Future Scheduled 1965-12-28 HEPATITIS C [facility]CRE[facility]ING [facility] 00:00:00 [code = HEPATITIS C Medical Center SCREENING] Future Scheduled 1965-12-28 HEPATITIS C [facility]CRE[facility]ING [facility] 00:00:00 [code = HEPATITIS C Medical Center SCREENING] Future Scheduled 1959 COVID-19 VACCINE (1) [facility] Test 00:00:00 [code = COVID-[address] VACCINE (1)] Future Scheduled 1959 COVID-19 VACCINE (1) [facility] Test 00:00:00 [code = COVID-[address] VACCINE (1)] Future Scheduled 1959 COVID-19 VACCINE (1) [facility] Test 00:00:00 [code = COVID-[address] VACCINE (1)] Future Scheduled [address] [facility] Test 00:00:00 malignant neoplasm of Medica l Center breast (procedure) [code = 493692340] Future Scheduled [address] [facility] Test 00:00:00 malignant neoplasm of Medica l Center colon (procedure) [code = 630875282] Future Scheduled [address] [facility] Test 00:00:00 malignant neoplasm of Medica l Center breast (procedure) [code = 761764067] Future Scheduled [address] [facility] Test 00:00:00 malignant neoplasm of Medica l Center colon (procedure) [code = 419381286] Future Scheduled [address] [facility] Test 00:00:00 malignant neoplasm of Medica l Center breast (procedure) [code = 163837309] Future Scheduled [address] [facility] Test 00:00:00 malignant neoplasm of Medica [facility] colon (procedure) [code = 193453388] Encounters Start End Encounter Admission Attending Care Care Encounter Source Date/Time Date/Time Type Type Clinicians Facility Department ID 2021-04-02 Outpatient Powell, STLMLC STLMLC [id number] Common 14:02:15 Dmitry 72897 [facility] 2021-04-02 Outpatient Powell, STLMLC STLMLC [id number] Common 14:01:19 Dmitry 68582 [facility] 2021-04-02 Outpatient Powell, STLMLC STLMLC [id number] Common 13:38:40 Dmitry 83938 [facility] 2021-04-02 Outpatient Powell, STLMLC STLMLC [id number] Common 13:36:48 Dmitry 14673 [facility] 2021-04-02 Outpatient Powell, STLMLC STLMLC [id number] Common 13:28:35 Dmitry 31726 [facility] 2021-04-02 Outpatient Powell, STLMLC STLMLC [id number] Common 13:28:20 Dmitry 32758 [facility] 2021-04-02 Outpatient Powell, STLMLC STLMLC [id number] Common 13:04:41 Dmitry 62583 [facility] 2021-04-02 Outpatient Powell, STLMLC STLMLC [id number] Common 12:55:20 Dmitry 78835 [facility] 2021-04-02 Outpatient Powell, STLMLC STLMLC [id number] Common 12:37:32 Dmitry 77982 [facility] 2021-04-02 Outpatient Powell, STLMLC STLMLC [id number] Common 11:40:56 Dmitry 13207 [facility] 2021-04-02 Outpatient Powell, STLMLC STLMLC [id number] Common 11:32:24 Dmitry 25826 [facility] 2021-04-02 Outpatient Powell, STLMLC STLMLC [id number] Common 10:59:26 Dmitry 12223 [facility] 2021-04-02 Outpatient Powell, STLMLC STLMLC [id number] Common 10:59:05 [facility] 38287 [facility] 2020-12-15 Inpatient UR [facility] [id number] [facility]17[facility] 2021-07-22 2021-07-22 ambulatory STLMLC STLMLC [id number] Common 00:00:00 00:00:00 [facility] 2021-07-14 2021-07-14 ambulatory STLMLC STLMLC [id number] Common 00:00:00 00:00:00 [facility] 2021-07-12 2021-07-12 ambulatory STLMLC STLMLC [id number] Common 00:00:00 00:00:00 [facility] 2021-07-05 2021-07-05 [id number] [facility]:00[facility]00 09:00:[facility] 2021-05-20 2021-05-20 Outpatient DMG DMG [id number] [facility] 09:01:00 09:01:00 [facility] 2021-05-14 2021-05-14 ambulatory STLMLC STLMLC [id number] Common 00:00:00 00:00:00 [facility] 2021-05-07 2021-05-07 ambulatory STLMLC STLMLC [id number] Common 00:00:00 00:00:00 [facility] 2021-05-07 2021-05-07 ambulatory STLMLC STLMLC [id number] Common 00:00:00 00:00:00 [facility] 2021-05-06 2021-05-06 ambulatory STLMLC STLMLC [id number] Common 00:00:00 00:00:00 [facility] 2021-04-21 2021-04-21 ambulatory STLMLC STLMLC [id number] Common 00:00:00 00:00:00 [facility] 2021-04-21 2021-04-21 ambulatory STLMLC STLMLC [id number] Common 00:00:00 00:00:00 [facility] 2021-04-18 2021-04-18 ambulatory STLMLC STLMLC [id number] Common 00:00:00 00:00:00 [facility] 2021-04-16 2021-04-16 ambulatory STLMLC STLMLC [id number] Common 00:00:00 00:00:00 [facility] 2021-04-14 2021-04-14 ambulatory STLMLC STLMLC [id number] Common 00:00:00 00:00:00 [facility] 2021-04-10 2021-04-10 ambulatory STLMLC STLMLC [id number] Common 00:00:00 00:00:00 [facility] 2021-04-03 2021-04-03 ambulatory STLMLC STLMLC [id number] Common 00:00:00 00:00:00 [facility] 2021-03-10 2021-03-10 ambulatory STLMLC STLMLC [id number] Common 00:00:00 00:00:00 [facility] 2021-03-06 2021-03-06 ambulatory STLMLC STLMLC [id number] Common 00:00:00 00:00:00 [facility] 2021-03-05 2021-03-05 ambulatory STLMLC STLMLC [id number] Common 00:00:00 00:00:00 [facility] 2021-01-27 2021-01-27 ambulatory STLMLC STLMLC [id number] Common 00:00:00 00:00:00 [facility] 2020-12-25 2020-12-25 Outpatient STLMLC STLMLC [id number] Common 00:00:00 00:00:00 [facility] 2020-12-20 2020-12-20 ambulatory STLMLC STLMLC [id number] Common 00:00:00 00:00:00 [facility] 2020-12-02 2020-12-02 Outpatient STLMLC STLMLC [id number] Common 00:00:00 00:00:00 [facility] 2020-12-02 2020-12-02 Outpatient STLMLC STLMLC [id number] Common 00:00:00 00:00:00 [facility] 2020-12-02 2020-12-02 Outpatient STLMLC STLMLC [id number] Common 00:00:00 00:00:00 [facility] 2020-10-16 2020-10-16 Outpatient STLMLC STLMLC [id number] Common 00:00:00 00:00:00 [facility] 2020-10-16 2020-10-16 Outpatient STLMLC STLMLC [id number] Common 00:00:00 00:00:00 [facility] 2020-10-10 2020-10-10 Outpatient STLMLC STLMLC [id number] Common 00:00:00 00:00:00 [facility] 2020-09-25 2020-09-25 Outpatient STLMLC STLMLC [id number] Common 00:00:00 00:00:00 [facility] 2020-09-20 2020-09-20 Outpatient STLMLC STLMLC [id number] Common 00:00:00 00:00:00 [facility] 2020-09-04 2020-09-04 Outpatient STLMLC STLMLC [id number] Common 00:00:00 00:00:00 [facility] 2020-09-04 2020-09-04 Outpatient STLMLC STLMLC [id number] Common 00:00:00 00:00:00 [facility] 2020-09-04 2020-09-04 Outpatient STLMLC STLMLC [id number] Common 00:00:00 00:00:00 [facility] 2020-09-03 2020-09-03 Outpatient STLMLC STLMLC [id number] Common 00:00:00 00:00:00 [facility] 2020-08-27 2020-08-27 Outpatient STLMLC STLMLC [id number] Common 00:00:00 00:00:00 [facility] 2020-08-15 2020-08-15 Outpatient STLMLC STLMLC [id number] Common 00:00:00 00:00:00 [facility] 2020-08-14 2020-08-14 Outpatient STLMLC STLMLC [id number] Common 00:00:00 00:00:00 [facility] 2020-08-01 2020-08-01 Outpatient STLMLC STLMLC [id number] Common 00:00:00 00:00:00 [facility] 2020-07-24 2020-07-24 Outpatient STLMLC STLMLC [id number] Common 00:00:00 00:00:00 [facility] 2020-07-16 2020-07-16 Outpatient STLMLC STLMLC [id number] Common 00:00:00 00:00:00 [facility] 2020-07-16 2020-07-16 Outpatient STLMLC STLMLC [id number] Common 00:00:00 00:00:00 [facility] 2020-07-10 2020-07-10 Outpatient STLMLC STLMLC [id number] Common 00:00:00 00:00:00 [facility] 2020-07-05 2020-07-05 Outpatient STLMLC STLMLC [id number] Common 00:00:00 00:00:00 [facility] 2020-06-27 2020-06-27 Outpatient STLMLC STLMLC [id number] Common 00:00:00 00:00:00 [facility] 2020-06-24 2020-06-24 Outpatient STLMLC STLMLC [id number] Common 00:00:00 00:00:00 [facility] 2020-06-19 2020-06-19 Outpatient STLMLC STLMLC [id number] Common 00:00:00 00:00:00 [facility] 2020-05-20 2020-05-20 Outpatient STLMLC STLMLC [id number] Common 00:00:00 00:00:00 [facility] 2020-05-14 2020-05-14 Outpatient STLMLC STLMLC [id number] Common 00:00:00 00:00:00 [facility] 2020-04-19 2020-04-19 Outpatient STLMLC STLMLC [id number] Common 00:00:00 00:00:00 [facility] 2020-04-16 2020-04-16 Outpatient STLMLC STLMLC [id number] Common 00:00:00 00:00:00 [facility] 2019-09-29 2019-09-29 [facility] [id number] Common 13:46:00 13:46:00 t [facility] [address] [facility] 2019-09-28 2019-09-28 [facility] [id number] Common 11:00:00 11:00:00 [address] [place] [address] [facility] 2019-09-28 2019-09-28 [facility] [id number] Common 10:30:00 10:30:[address] [place] [address] [facility] 2019-07-14 2019-07-14 [facility] [id number] Common 10:31:00 10:31:[address] [place] [address] [facility] 2018-12-15 2018-12-15 [facility] [id number] Common 16:00:00 16:00:[address] [place] [address] [facility] 2018-09-14 2018-09-14 [facility] [id number] Common 15:45:00 15:45:[address] [facility] 2018-08-30 2018-08-30 [facility] [id number] Common 08:00:00 08:00:[address] [place] [address] [facility] 2018-06-10 2018-06-10 [facility] [id number] Common 16:46:00 16:46:[address] [place] [address] [facility] 2018-06-09 2018-06-09 [facility] [id number] Common 09:18:00 09:18:[address] [facility] 2018-06-07 2018-06-07 [facility] [id number] Common 15:00:00 15:00:[address] [address] [facility] 2018-04-25 2018-04-25 [facility] [id number] Common 09:15:00 09:15:[address] [address] [facility] 2018-03-09 2018-03-09 [facility] [id number] Common 16:00:00 16:00:[address] [place] [address] [facility] 2018-03-03 2018-03-03 [facility] [id number] Common 08:52:00 08:52:[address] [place] [address] [facility] 2017-11-30 2017-11-30 [facility] [id number] Common 15:00:00 15:00:[address] [place] [address] [facility] 2017-09-30 2017-09-30 [facility] [id number] Common 15:00:00 15:00:00 t Specialty/U Sp nahed Specialty rology - [facility] 2017-09-29 2017-09-29 [facility] [id number] Common 10:13:00 10:13:[address] [address] [facility] 2017-09-28 2017-09-28 [facility] [id number] Common 14:00:00 14:00:[address] [place] [address] [facility] Results Test Description Test Time Test Comments Results Result Comments Source PHOSPHORUS 2018-11-11 05:54:00 Test Item Value Reference Range Interpretation Comme nts PHOSPHORUS (BEAKER) (test code = 604) 3.6 mg/dL 2.3-4.7 [id number] 05:54:00 Test Item Value Reference Range Interpretation Comments MAGNESIUM (BEAKER) (test code = 1.8 mg/dL 1.6-2.6 627) BASIC METABOLIC [id number] 05:54:00 Test Item Value Reference Range Interpretation [...] APPLICABLE FOR DIALYSIS PATIEN TS. HEPATIC FUNCTION [id number] 05:54:00 Test Item Value Reference Range Interpretation [...] 6-55 347) CBC W/PLT COUNT & AUTO [id number] 05:43:00 Test Item Value Reference Range Interpretation [...] PERCENT (BEAKER) (test code = 2801) PROTHROMBIN [id number] 05:42:00 Test Item Value Reference Range Interpretation [...] is2.5-3.5 for patients wiht mechanical heart valves.HEMOGLOBIN [id number] 07:50:00 Test Item Value Reference Range Interpretation Comments HEMOGLOBIN A1C (BEAKER) (test code = 7.1 % 4.3-6.1 H 368) [id number] 04:53:00 Test Item Value Reference Range Interpretation Comments PHOSPHORUS (BEAKER) (test code = 3.2 mg/dL 2.3-4.7 604) [id number] 04:53:00 Test Item Value Reference Range Interpretation Comments MAGNESIUM (BEAKER) (test code = 1.8 mg/dL 1.6-2.6 627) BASIC METABOLIC [id number] 04:53:00 Test Item Value Reference Range Interpretation [...] APPLICABLE FOR DIALYSIS PATIEN TS. HEPATIC FUNCTION [id number] 04:53:00 Test Item Value Reference Range Interpretation [...] code = 12 U/L 6-55 347) PROTHROMBIN [id number] 04:19:00 Test Item Value Reference Range Interpretation [...] mechanical heart valves.CBC W/PLT COUNT & AUTO [id number] 04:14:00 Test Item Value Reference Range Interpretation [...] 0-1 PERCENT (BEAKER) (test code = 2801) [id number] 14:44:00 Test Item Value Reference Range Interpretation Comments LIPASE (BEAKER) (test code = 749) 972 U/L 8-78 H [id number] 13:06:00 Test Item Value Reference Range Interpretation Comments PHOSPHORUS (BEAKER) (test code = 3.3 mg/dL 2.3-4.7 604) [id number] 13:06:00 Test Item Value Reference Range Interpretation Comments MAGNESIUM (BEAKER) (test code = 2.0 mg/dL 1.6-2.6 627) BASIC METABOLIC [id number] 13:06:00 Test Item Value Reference Range Interpretation [...] NOT APPLICABLE FOR DIALYSIS PATIEN TS. LIPID [id number] 13:06:00 Test Item Value Reference Range Interpretation [...] 130-159 High 160-189 Very High >=190HEPATIC FUNCTION [id number] 13:06:00 Test Item Value Reference Range Interpretation [...] 6-55 347) CBC W/PLT COUNT & AUTO [id number] 12:46:00 Test Item Value Reference Range Interpretation [...] PERCENT (BEAKER) (test code = 2801) PROTHROMBIN [id number] 12:39:00 Test Item Value Reference Range Interpretation [...]
[2021-07-27] MEDS ORDERED: HYDROMORPHONE HCL 1 MG/ML INJ ONE ×2 (05:28→10:08)
[2021-07-27] MEDS ORDERED: NA CHLORIDE 0.9% 1,000 ML ONE (05:28)
[2021-07-27] MEDS ORDERED: ONDANSETRON 4 MG/2 ML VIAL ONE ×2 (05:29→08:57)
[2021-07-27 07:03] LABS: Albumin 3.3 g/dL (3.4-5.0); Bilirubin Direct 0.1 mg/dL (0-0.2); Bilirubin Total 0.5 mg/dL (0.2-1.0); Magnesium 1.9 mg/dL (1.8-2.4); Potassium 4.2 mmol/L (3.5-5.1); Protein, Total 7.8 g/dL (6.4-8.2); Troponin High Sensitivity 13.8 pg/mL (<58.9)
[2021-07-27 07:20] LABS: Urine Blood Negative (Negative); Urine Glucose 3+ (Negative); Urine Protein Negative (Negative)
--- NOTE | 2021-07-27 08:02 | RAD REPORT ---
EXAM DESCRIPTION: CT - Abdomen Pelvis Wo Contrast - 07/27/2021 7:47 am CLINICAL HISTORY: Abdominal pain, acute, nonlocalized COMPARISON: Abdomen Pelvis W Contrast dated 02/12/2021 TECHNIQUE: Axial [address] imaging of the abdomen and pelvis was performed without IV contrast. Only a small amount of IV contrast was administered due to inadequate venous access. No oral contrast administered. All CT scans are performed using dose optimization technique as appropriate and may include automated exposure control or mA/KV adjustment according to patient size. FINDINGS: No suspicious findings in the lung bases. Liver and spleen show no suspicious findings. Gallbladder is absent. No biliary tree dilatation. No solid or cystic mass within the pancreas or peripancreatic tissues. There is a trace amount of ed rosana or stranding adjacent to the head of the pancreas and uncinate process. Finding is not substantia lly different from the February 2021 study. A mild pancreatitis is suspected and needs correlation wi th clinical presentation and any supporting lab abnormalities. Fullness of the left renal pelvis and calices match the prior examination. Right pelvic fullness also matches prior imaging. No acute hydronephrosis. No new obstructing or nonobstructing calculus. No s ignificant adrenal finding. Isodense renal masses and pyelonephritis cannot be excluded in the absenc e of IV contrast. Urinary bladder is fully contracted around a Dobson catheter. Uterus is absent. Ovar ies are absent or atrophic. No adnexal mass. Large hiatal hernia is present similar to prior imaging. No acute gastric finding. No acute large or small bowel finding. The patient has prominent sigmoid diverticulosis but no diverticulitis findings. No free air, free fluid or pneumatosis. No hernia, mass or bulky lymphadenopathy. Prominent lumbar and lower thoracic degenerative changes are present without acute component or signi ficant interval change. IMPRESSION: Mild pancreatitis changes are suspected around the uncinate process and head of the panc reas. No mass, pseudocyst or other complicating factor. Correlation is needed with clinical and labor atory supporting findings. The remainder the study, as detailed above, is without acute finding or significant change from prior imaging. Full assessment is limited is the absence of IV contrast.
--- NOTE | 2021-07-27 08:10 | ER ---
Nurse's Notes [facility] Name: Isadora Bettencourt Age: 75 yrs Sex: Female : 1945 Arrival Date: 07/27/2021 Time: 04:10 Bed 8 Private MD: Diagnosis: Upper abdominal pain, unspecified;Acute pancreatitis without necrosis or infection, unspecified Presentation: 07/27 04:43 Chief complaint: Patient states: I have 9/10 lower stomach pain that started about 30 kd3 minutes ago. it came on suddenly. I have a history of chronic pancreatitis but it doesn't feel like that. Coronavirus screen: Vaccine status: Patient reports receiving the 2nd dose of the covid vaccine. Ebola Screen: No symptoms or risks identified at this time. Initial Sepsis Screen: Does the patient meet any 2 criteria? No. Patient's initial sepsis screen is negative. Does the patient have a suspected source of infection? No. Patient's initial sepsis screen is negative. Risk Assessment: Do you want to hurt yourself or someone else? Patient reports no desire to harm self or others. Onset of symptoms was July 27, 2021. 04:43 Method Of Arrival: Wheelchair kd3 04:43 Acuity: FRANDY 3 kd3 Triage Assessment: 04:44 General: Appears in no apparent distress. Behavior is calm, cooperative. Pain: kd3 Complains of pain in right lower quadrant and left lower quadrant. GI: Abdomen is obese, Bowel sounds present X 4 quads. Historical: - Home Meds: 04:44 pantoprazole 40 mg oral TbEC 1 tab once daily [Active]; Vesicare 10 mg oral tab 1 tab kd3 once daily [Active]; - PMHx: 04:44 Anxiety; Pancreatitis; Kidney stones; Hypertension; kd3 - Immunization history:: Adult Immunizations up to date, Client reports receiving the 2nd dose of the Covid vaccine. - Social history:: Smoking status: Patient/guardian denies using tobacco, the patient reports quitting approximately 20 years ago. Screenin:46 Abuse screen: Denies threats or abuse. Denies injuries from another. Nutritional kd3 screening: No deficits noted. Tuberculosis screening: No symptoms or risk factors identified. Fall Risk None identified. Assessment: 04:47 GI: Abd is soft X 4 quads. kd3 06:00 Reassessment: Patient appears in no apparent distress at this time. Patient is alert, ke1 oriented x 3, equal unlabored respirations, skin warm/dry/pink. Patient states symptoms have improved. 07:14 Reassessment: Patient appears in no apparent distress at this time. Patient is alert, ke1 oriented x 3, equal unlabored respirations, skin warm/dry/pink. 08:15 Reassessment: No changes from previously documented assessment. Patient and/or family ll1 updated on plan of care and expected duration. Pain level reassessed. Patient is alert, oriented x 3, equal unlabored respirations, skin warm/dry/pink. 08:57 Reassessment: No changes from previously documented assessment. Patient and/or family ll1 updated on plan of care and expected duration. Pain level reassessed. Patient is alert, oriented x 3, equal unlabored respirations, skin warm/dry/pink. 08:59 Reassessment: Patient states that forest supervisor nurse attempted to access port to R ss anterior chest wall but was unsuccessful. Pt states, "the last time they used that was a year ago." CT attempted to obtain CT with contrast, but initial IV infiltrated. Pt appears comfortable. CMS intact. 20 gauge, 10 CM ultrasound guided POWERGLIDE Midline inserted to R upper arm. Verbal order given by Dr. Kaminski \\T\\ [id number]. 09:12 Reassessment: No changes from previously documented assessment. Patient and/or family ll1 updated on plan of care and expected duration. Pain level reassessed. Patient is alert, oriented x 3, equal unlabored respirations, skin warm/dry/pink. 10:10 Reassessment: No changes from previously documented assessment. Patient and/or family ll1 updated on plan of care and expected duration. Pain level reassessed. Patient is alert, oriented x 3, equal unlabored respirations, skin warm/dry/pink. 11:10 Reassessment: No changes from previously documented assessment. Patient and/or family ll1 updated on plan of care and expected duration. Pain level reassessed. Patient is alert, oriented x 3, equal unlabored respirations, skin warm/dry/pink. 12:00 Reassessment: No changes from previously documented assessment. Patient and/or family ll1 updated on plan of care and expected duration. Pain level reassessed. Patient is alert, oriented x 3, equal unlabored respirations, skin warm/dry/pink. 12:19 Reassessment: No changes from previously documented assessment. Patient and/or family ll1 updated on plan of care and expected duration. Pain level reassessed. Patient is alert, oriented x 3, equal unlabored respirations, skin warm/dry/pink. Vital Signs: 04:43 BP 163 / 88; Pulse 87; Resp 17; Pulse Ox 99% on R/A; kd3 08:57 BP 171 / 79; Pulse 72; Resp 16; Temp 98.0; Pulse Ox 99% ; ll1 09:11 BP 177 / 91; Pulse 62; ll1 09:40 BP 175 / 92; Pulse 62; ll1 11:01 BP 165 / 99; Pulse 57; Resp 16; Pulse Ox 98% on R/A; ll1 11:58 BP 153 / 91; Pulse 70; Resp 16; Pulse Ox 100% on R/A; Pain 6/10; ll1 12:18 BP 153 / 101; Pulse 70; Resp 16; Pulse Ox 100% ; ll1 ED Course: 04:10 Patient arrived in ED. kz 04:14 Anthony Kaminski MD is Attending Physician. james 04:42 Bell Burns, RN is Primary Nurse. kd3 04:44 Triage completed. kd3 04:47 Arm band placed on right wrist. kd3 04:47 Patient has correct armband on for positive identification. kd3 05:29 XRAY Chest (1 view) In Process Unspecified. EDMS 07:07 Inserted saline lock: 22 gauge in left ,using aseptic technique. left upper chest. ke1 07:49 Abdomen In Process Unspecified. EDMS 08:08 Anatoliy Sosa MD is Hospitalizing Provider. james 08:50 Primary Nurse role handed off by Bell Burns, RN ll1 08:50 Jag Forte, SHARMAINE is Primary Nurse. ll1 08:59 Inserted 20 gauge, 10 CM POWERGLIDE MIDLINE inserted to R upper arm. Ultrasound guided. ss 11:59 No provider procedures requiring assistance completed. Patient admitted, IV remains in ll1 place. Administered Medications: 07:10 Drug: Dilaudid (HYDROmorphone) 1 mg Route: IVP; Site: left upper arm; ke1 11:00 Follow up: Response: No adverse reaction ll1 07:11 Drug: Zofran (Ondansetron) 4 mg Route: IVP; Site: left upper arm; ke1 11:00 Follow up: Response: No adverse reaction ll1 07:12 Drug: NS 0.9% 1000 ml Route: IV; Rate: 1 bolus; Site: left upper arm; ke1 11:00 Follow up: Response: No adverse reaction; IV Status: Completed infusion; IV Intake: ll1 1000ml 08:55 Drug: NS 0.9% 1000 ml Route: IV; Rate: 1 bolus; Site: right upper arm; ll1 11:01 Follow up: Response: No adverse reaction; IV Status: Completed infusion; IV Intake: ll1 1000ml 08:56 Drug: Zofran (Ondansetron) 4 mg Route: IVP; Site: right upper arm; ll1 11:00 Follow up: Response: No adverse reaction ll1 10:14 Drug: Dilaudid (HYDROmorphone) 1 mg Route: IVP; Site: right upper arm; ll1 11:00 Follow up: Response: No adverse reaction ll1 10:59 Drug: Phenergan (promethazine) 6.25 mg Route: IVP; Site: right upper arm; ll1 12:07 Follow up: Response: No adverse reaction; Nausea is decreased ll1 Medication: 04:47 VIS not applicable for this client. kd3 Intake: 11:00 IV: 1000ml; Total: 1000ml. ll1 11:01 IV: 1000ml; Total: 2000ml. ll1 Outcome: 08:09 Decision to Hospitalize by Provider. james 08:59 Instructed on the need for admit. 11:59 [facility], room Room 220, with chart, Report ll1 called to SHARMAINE [place] on . :59 Condition: stable 12:39 Patient left the ED. 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; kd3 kd3 04:46 04:44 PMHx: gastric ulcers; kd3 kd3 04:46 04:44 PMHx: diabetes mellitus; kd3 kd3 04:46 04:44 PSHx: kidney stent, kidney stones; kd3 kd3 04:46 04:44 PSHx: Cholecystectomy; kd3 kd3 04:46 04:44 PSHx: Total abdominal hysterectomy; kd3 kd3 04:46 04:44 PSHx: Appendectomy; kd3 kd3 04:46 04:44 PSHx: Hernia repair x2; kd3 kd3 04:46 04:44 PSHx: carpal tunnel bilateral; kd3 kd3 04:46 04:44 PSHx: 1st rib removed right; kd3 kd3 04:46 04:44 PSHx: bladder repair; kd3 kd3 04:46 04:44 PSHx: bunion repair bilteral; kd3 kd3 04:46 04:44 PSHx: bilateral knee repair; kd3 kd3 08:58 08:57 BP 171 / 79; Pulse 72bpm; Resp 16bpm; Pulse Ox 99%; ll1 ll1 12:18 11:59 Admitted to Tele accompanied by tech, via wheelchair, room Room 220, with chart, ll1 ll1
--- NOTE | 2021-07-27 08:10 | EDPHYS ---
Physician Documentation [facility] Name: Isadora Bettencourt Age: 75 yrs Sex: Female : 1945 Arrival Date: 07/27/2021 Time: 04:10 Bed 8 Private MD: NEHEMIAS Physician Anthony Kaminski HPI: 07/27 05:58 This 75 yrs old Female presents to ER via Wheelchair with complaints of james Abdominal Pain, Nausea. 05:58 The patient presents to the emergency department with nausea, vomiting, abdominal pain, james of the epigastric area, right upper quadrant and left upper quadrant. Onset: The symptoms/episode began/occurred 3 day(s) ago. Possible causes: PANCREATITIS. The symptoms are aggravated by nothing. The symptoms are alleviated by nothing. Associated signs and symptoms: The patient has no apparent associated signs or symptoms. Severity of symptoms: At their worst the symptoms were mild moderate in the emergency department the symptoms are unchanged. The patient has experienced similar episodes in the past, multiple times. Historical: - Home Meds: 04:44 pantoprazole 40 mg oral TbEC 1 tab once daily [Active]; Vesicare 10 mg oral tab 1 tab kd3 once daily [Active]; - PMHx: 04:44 Anxiety; Pancreatitis; Kidney stones; Hypertension; kd3 - Immunization history:: Adult Immunizations up to date, Client reports receiving the 2nd dose of the Covid vaccine. - Social history:: Smoking status: Patient/guardian denies using tobacco, the patient reports quitting approximately 20 years ago. ROS: 05:59 Constitutional: Negative for fever, chills, and weight loss, Eyes: Negative for injury, james pain, redness, and discharge, ENT: Negative for injury, pain, and discharge, Neck: Negative for injury, pain, and swelling, Cardiovascular: Negative for chest pain, palpitations, and edema, Respiratory: Negative for shortness of breath, cough, wheezing, and pleuritic chest pain, Back: Negative for injury and pain, : Negative for injury, bleeding, discharge, and swelling, MS/Extremity: Negative for injury and deformity, Skin: Negative for injury, rash, and discoloration, Neuro: Negative for headache, weakness, numbness, tingling, and seizure, Psych: Negative for depression, anxiety, suicide ideation, homicidal ideation, and hallucinations, Allergy/Immunology: Negative for hives, rash, and allergies, Endocrine: Negative for neck swelling, polydipsia, polyuria, polyphagia, and marked weight changes, Hematologic/Lymphatic: Negative for swollen nodes, abnormal bleeding, and unusual bruising. 05:59 Abdomen/GI: Positive for abdominal pain, of the epigastric area, right upper quadrant and left upper quadrant. Exam: 05:59 Constitutional: This is a well developed, well nourished patient who is awake, alert, james and in no acute distress. Head/Face: Normocephalic, atraumatic. Eyes: Pupils equal round and reactive to light, extra-ocular motions intact. Lids and lashes normal. Conjunctiva and sclera are non-icteric and not injected. Cornea within normal limits. Periorbital areas with no swelling, redness, or edema. ENT: Nares patent. No nasal discharge, no septal abnormalities noted. Tympanic membranes are normal and external auditory canals are clear. Oropharynx with no redness, swelling, or masses, exudates, or evidence of obstruction, uvula midline. Mucous membranes moist. Neck: Trachea midline, no thyromegaly or masses palpated, and no cervical lymphadenopathy. Supple, full range of motion without nuchal rigidity, or vertebral point tenderness. No Meningismus. Chest/axilla: Normal chest wall appearance and motion. Nontender with no deformity. No lesions are appreciated. Cardiovascular: Regular rate and rhythm with a normal S1 and S2. No gallops, murmurs, or rubs. Normal PMI, no JVD. No pulse deficits. Respiratory: Lungs have equal breath sounds bilaterally, clear to auscultation and percussion. No rales, rhonchi or wheezes noted. No increased work of breathing, no retractions or nasal flaring. Back: No spinal tenderness. No costovertebral tenderness. Full range of motion. Female : Normal external genitalia. Skin: Warm, dry with normal turgor. Normal color with no rashes, no lesions, and no evidence of cellulitis. MS/ Extremity: Pulses equal, no cyanosis. Neurovascular intact. Full, normal range of motion. Neuro: Awake and alert, GCS 15, oriented to person, place, time, and situation. Cranial nerves II-XII grossly intact. Motor strength 5/5 in all extremities. Sensory grossly intact. Cerebellar exam normal. Normal gait. Psych: Awake, alert, with orientation to person, place and time. Behavior, mood, and affect are within normal limits. 05:59 Abdomen/GI: Inspection: abdomen appears normal, Bowel sounds: normal, Palpation: moderate abdominal tenderness, in the epigastric area, right upper quadrant and left upper quadrant, Liver: no appreciated palpable abnormalities, Hernia: not appreciated. 05:59 Abdomen/GI: Bowel sounds: Palpation: 07:09 ECG was reviewed by the Attending Physician. [facility] Vital Signs: 04:43 BP 163 / 88; Pulse 87; Resp 17; Pulse Ox 99% on R/A; kd3 08:57 BP 171 / 79; Pulse 72; Resp 16; Temp 98.0; Pulse Ox 99% ; ll1 09:11 BP 177 / 91; Pulse 62; ll1 09:40 BP 175 / 92; Pulse 62; ll1 11:01 BP 165 / 99; Pulse 57; Resp 16; Pulse Ox 98% on R/A; ll1 11:58 BP 153 / 91; Pulse 70; Resp 16; Pulse Ox 100% on R/A; Pain 6/10; ll1 12:18 BP 153 / 101; Pulse 70; Resp 16; Pulse Ox 100% ; ll1 Procedures: 06:44 Peripheral line: by aseptic technique a peripheral line was placed in the left external [facility] jugular vein, FAILED. MDM: 04:51 Patient medically screened. [facility] 06:01 Differential diagnosis: Nonspecific abd pain, gastritis, cholecystitis, pancreatitis, james diverticulitis, viral gastroenteritis, gastroenteritis. Data reviewed: vital signs, nurses notes, lab test result(s), EKG, radiologic studies, CT scan, plain films. Data interpreted: campus monitor: rate is 87 beats/min, rhythm is regular, Pulse oximetry: on room air is 99 %. Test interpretation: by ED physician or midlevel provider: ECG, plain radiologic studies. Counseling: I had a detailed discussion with the patient and/or guardian regarding: the historical points, exam findings, and any diagnostic results supporting the discharge/admit diagnosis, lab results, radiology results. 07/27 04:55 Order name: Basic Metabolic Panel; Complete Time: 07:29 [facility] 07/27 04:55 Order name: CBC with Diff [facility] 07/27 04:55 Order name: LFT's; Complete Time: 07:29 [facility] 07/27 04:55 Order name: Magnesium; Complete Time: 07:29 [facility] 07/27 04:55 Order name: NT PRO-BNP; Complete Time: 07:29 [facility] 07/27 04:55 Order name: PT-INR [facility] 07/27 04:55 Order name: Troponin HS; Complete Time: 07:29 [facility] 07/27 04:55 Order name: Lipase; Complete Time: 07:29 [facility] 07/27 07:20 Order name: Urine Dipstick-Ancillary; Complete Time: 07:29 [facility] 07/27 09:06 Order name: COVID-19 SARS RT PCR (Document "Date of Onset" if Symptomatic) 07/27 11:33 Order name: CBC with Automated Diff [facility] 07/27 11:33 Order name: CBC with Automated Diff [facility] 07/27 11:33 Order name: Comprehensive Metabolic Panel [facility] 07/27 11:33 Order name: Comprehensive Metabolic Panel [facility] 07/27 04:55 Order name: XRAY Chest (1 view) [facility] 07/27 04:55 Order name: EKG; Complete Time: 04:58 [facility] 07/27 07:49 Order name: Abdomen ; Complete Time: 08:09 [facility] 07/27 11:33 Order name: Full Liquid [facility] 07/27 11:33 Order name: Lipase [facility] 07/27 11:33 Order name: Lipase [facility] 07/27 11:33 Order name: Lipid Profile [facility] 07/27 11:33 Order name: Lipid Profile [facility] 07/27 04:55 Order name: Cardiac monitoring; Complete Time: 07:13 [facility] 07/27 04:55 Order name: EKG - Nurse/Tech; Complete Time: 07:13 [facility] 07/27 04:55 Order name: IV Saline Lock; Complete Time: 07:02 [facility] 07/27 04:55 Order name: Labs collected and sent; Complete Time: 07:02 [facility] 07/27 04:55 Order name: O2 Per Protocol; Complete Time: 07:02 [facility] 07/27 04:55 Order name: O2 Sat Monitoring; Complete Time: 07:02 [facility] 07/27 04:55 Order name: Urine Dipstick-Ancillary (obtain specimen); Complete Time: 07:21 james 07/27 07:21 Order name: Dobson; Complete Time: 07:21 ll1 07/27 08:07 Order name: Misc. Order: ACCESS PORT A CATH OR PLACE MIDLINE; Complete Time: 08:38 james EC:09 Rate is 74 beats/min. Rhythm is regular. QRS Hope is Normal. NM interval is normal. QRS james interval is normal. QT interval is normal. No Q waves. T waves are Normal. No ST changes noted. Clinical impression: NSR w/ Non-specific ST/T Changes and No evidence of ischemia. Administered Medications: 07:10 Drug: Dilaudid (HYDROmorphone) 1 mg Route: IVP; Site: left upper arm; ke1 11:00 Follow up: Response: No adverse reaction ll1 07:11 Drug: Zofran (Ondansetron) 4 mg Route: IVP; Site: left upper arm; ke1 11:00 Follow up: Response: No adverse reaction ll1 07:12 Drug: NS 0.9% 1000 ml Route: IV; Rate: 1 bolus; Site: left upper arm; ke1 11:00 Follow up: Response: No adverse reaction; IV Status: Completed infusion; IV Intake: ll1 1000ml 08:55 Drug: NS 0.9% 1000 ml Route: IV; Rate: 1 bolus; Site: right upper arm; ll1 11:01 Follow up: Response: No adverse reaction; IV Status: Completed infusion; IV Intake: ll1 1000ml 08:56 Drug: Zofran (Ondansetron) 4 mg Route: IVP; Site: right upper arm; ll1 11:00 Follow up: Response: No adverse reaction ll1 10:14 Drug: Dilaudid (HYDROmorphone) 1 mg Route: IVP; Site: right upper arm; ll1 11:00 Follow up: Response: No adverse reaction ll1 10:59 Drug: Phenergan (promethazine) 6.25 mg Route: IVP; Site: right upper arm; ll1 12:07 Follow up: Response: No adverse reaction; Nausea is decreased ll1 Disposition Summary: 07/27/21 08:09 Hospitalization Ordered Hospitalization Status: Inpatient Admission james Provider: Anatoliy Sosa cha Location: Telemetry/MedSurg (Inpatient) james Condition: Fair james Problem: new james Symptoms: have improved james Bed/Room Type: Standard [facility] Room Assignment: 220(07/27/21 11:37) dw Diagnosis - Upper abdominal pain, unspecified james - Acute pancreatitis without necrosis or infection, unspecified james Forms: - Medication Reconciliation Form james - SBAR form james Signatures: Dispatcher [employer] EDMS Nichol Coffman RN RN dw Anderson, Corey, MD MD cha Lewis, Lynsay, RN RN ll1 Bell Burns RN RN kd3 Lindsay Tripathi RN RN ke1 Corrections: (The following items were deleted from the chart) 04:46 04:44 PMHx: Hyperlipidemia; kd3 kd3 04:46 04:44 PMHx: GERD; kd3 kd3 04:46 04:44 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; kd3 kd3 04:46 04:44 PMHx: gastric ulcers; kd3 kd3 04:46 04:44 PMHx: diabetes mellitus; kd3 kd3 04:46 04:44 PSHx: kidney stent, kidney stones; kd3 kd3 04:46 04:44 PSHx: Cholecystectomy; kd3 kd3 04:46 04:44 PSHx: Total abdominal hysterectomy; kd3 kd3 04:46 04:44 PSHx: Appendectomy; kd3 kd3 04:46 04:44 PSHx: Hernia repair x2; kd3 kd3 04:46 04:44 PSHx: carpal tunnel bilateral; kd3 kd3 04:46 04:44 PSHx: 1st rib removed right; kd3 kd3 04:46 04:44 PSHx: bladder repair; kd3 kd3 04:46 04:44 PSHx: bunion repair bilteral; kd3 kd3 04:46 04:44 PSHx: bilateral knee repair; kd3 kd3 07:49 05:00 Abdomen Pelvis W Con+CT.RAD.BRZ ordered. EDMS EDMS 11:37 08:09 james dw
[2021-07-27 08:18] LABS: Absolute Lymphocytes (CBC) 1.4 K/uL (0.7-4.9); Hematocrit 36.1 % (36.0-45.0); Lymphocytes % 20.6 % (15.3-44.8); MPV 7.7 fL (7.6-11.3); RBC Red Blood Cell Count 4.97 M/uL (3.86-4.86)
[2021-07-27 08:23] LABS: Protime INR 1.1
[2021-07-27] MEDS ORDERED: PROMETHAZINE INJ 25 MG/ML AMP ONE (10:58)
[2021-07-27] MEDS ORDERED: ACETAMINOPHEN 500 MG TAB PO PRN (11:30)
[2021-07-27 13:47] VITALS: BMI 34.0
[2021-07-27] MEDS: NA CHLORIDE 0.9% 1,000 ML IV SCH ×2 (13:57→23:28)
[2021-07-27] MEDS ORDERED: MORPHINE 4 MG/ML SYR IV PRN (21:11)
--- NOTE | 2021-07-28 02:32 | P.HP ---
Certification for Inpatient Patient admitted to: Observation With expected LOS: <2 Midnights Patient will require the following post-hospital care: None Practitioner: I am a practitioner with admitting privileges, knowledge of patient current condition, hospital course, and medical plan of care. Services: Services provided to patient in accordance with Admission requirements found in Title 42 Section 412.3 of the Code of Federal Regulations Patient History Date of Service: 07/27/21 Reason for admission: Acute pancreatitis History of Present Illness: patient is a 75-year-old female came to the hospital with acute pancreatitis. Patient has had chronic pancreatitis for quite a while. She started having some epigastric tenderness along with nausea and vomiting. He came to the emergency room for further evaluation. CT imaging in the emergency room revealed mild pancreatitis. Lipase is normal. At this time, patient will be admitted for observation. Will go ahead and try to get her pain controlled. Start her on low-fat diet. If patient tolerates and lipase is remaining normal and pain is controlled the display discharged home with pain medication in follow-up as an outpatient. Allergies No Known Allergies Allergy (Verified 08/13/20 08:29) Home Medications: Pantoprazole [Protonix Tab*] 40 mg PO DAILY 08/16/20 Solifenacin Succinate [Vesicare] 1 tab PO DAILY 07/27/21 - Past Medical/Surgical History Has patient received pneumonia vaccine in the past: Yes Diabetic: No -: Chronic pancreatitis -: Gastroesophageal reflux disease w Hiatal hernia -: Esophageal spasm -: Attention deficit disorder -: Hypertension -: Depression with anxiety -: Hyperlipidemia -: Chronic pain -: Fatty liver, nonalcoholic -: Urinary incontinence/Nephrolithiasis -: Recurrent UTI -: Hysterectomy -: Cholecystectomy -: Appendectomy -: back surgery -: knee surgery -: foot surgery -: EGD/ERCP -: Cardiac catheterization, no stent Psychosocial/ Personal History: Patient lives at home - Family History Father Medical History: Diabetes, Cancer Notes: Type 2 Mother Medical History: Hypertension, Diabetes, Other (see notes) Notes: Hypoglycemia Sister Notes: epilepsy - Social History Smoking Status: Former smoker Alcohol use: No CD- Drugs: No Caffeine use: Yes Place of Residence: Home Review of Systems 10-point ROS is otherwise unremarkable Physical Examination - Vital Signs Temperature: 97.4 F Blood Pressure: 143/72 Pulse: 64 Respirations: 18 Pulse Ox (%): 96 - Physical Exam General: Alert, In no apparent distress, Oriented x3 HEENT: Atraumatic, PERRLA, Mucous membr. moist/pink, EOMI, Sclerae nonicteric Neck: Supple, 2+ carotid pulse no bruit, No LAD, Without JVD or thyroid abnormality Respiratory: Clear to auscultation bilaterally, Normal air movement Cardiovascular: Regular rate/rhythm, Normal S1 S2 Gastrointestinal: Normal bowel sounds, Soft and benign, Non-distended, No rebound, No guarding, Tenderness Musculoskeletal: No clubbing, No swelling, No tenderness Integumentary: No rashes Neurological: Normal gait, Normal speech, Normal strength at 5/5 x4 extr, Normal tone, Normal affect Lymphatics: No axilla or inguinal lymphadenopathy - Studies Laboratory Data (last 24 hrs) 07/27/21 08:05: PT 12.1, INR 1.10 07/27/21 08:05: WBC 6.9, Hgb 11.8 L, Hct 36.1, Plt Count 217 07/27/21 06:35: Sodium 136, Potassium 4.2, BUN 15, Creatinine 0.76, Glucose 261 H, Magnesium 1.9, Total Bilirubin 0.5, AST 10 L, ALT 15, Alkaline Phosphatase 124 H, Lipase 155 Assessment & Plan - Problems (Diagnosis) (1) Acute on chronic pancreatitis Onset Date: 08/13/16 Current Visit: No Status: Acute - Plan Plan: 1. continue with IV fluids 2. Pain control 3. Low-fat diet 4. Repeat labs in the morning 5. strict blood pressure and blood sugar control 6. Gi DVT prophylaxis Discharge Plan: Home Plan to discharge in: Greater than 2 days - Advance Directives Does patient have a Living Will: No Does patient have a Durable POA for Healthcare: No - Code Status/Comfort Care Code Status Assessed: Yes Code Status: Full Code Critical Care: No Time Spent Managing PTS Care (In Minutes): 45
[2021-07-28] MEDS: HYDROMORPHONE HCL 1 MG/ML INJ IV PRN ×5 (04:40→21:56)
[2021-07-28 04:54] LABS: Absolute Lymphocytes (CBC) 1.3 K/uL (0.7-4.9); Hematocrit 33.9 % (36.0-45.0); Lymphocytes % 23.1 % (15.3-44.8); MPV 8.2 fL (7.6-11.3); RBC Red Blood Cell Count 4.55 M/uL (3.86-4.86)
[2021-07-28 05:09] LABS: Albumin 2.7 g/dL (3.4-5.0); Bilirubin Total 0.6 mg/dL (0.2-1.0); Potassium 4.2 mmol/L (3.5-5.1); Protein, Total 6.6 g/dL (6.4-8.2)
[2021-07-28] MEDS: PANTOPRAZOLE 40MG TABLET PO SCH (08:10)
[2021-07-28] MEDS: NA CHLORIDE 0.9% 1,000 ML IV SCH (08:11)
[2021-07-28] MEDS: SOLIFENACIN SUCCIN 5 MG TAB PO SCH (08:11)
[2021-07-28] MEDS: ONDANSETRON 4 MG/2 ML VIAL IV PRN ×4 (09:49→21:57)
--- NOTE | 2021-07-28 11:27 | EKG ---
Test Date: 2021-07-27 Test Time: 06:58:59 Development Engineer: KARI MEASUREMENT RESULTS: Intervals: Rate: 74 IL: 156 QRSD: 136 QT: 438 QTc: 486 [place]: P: 74 IL: 156 QRS: 22 T: 143 INTERPRETIVE STATEMENTS: Normal sinus rhythm Left bundle branch block Abnormal ECG Compared to ECG 04/12/2021 12:25:46 Atrial premature complex(es) no longer present Left-axis deviation no longer present Electronically Signed On 07-28-21 11:23:37 CDT by Artemio Bolivar
--- NOTE | 2021-07-28 12:46 | RAD REPORT ---
EXAM DESCRIPTION: RAD - Chest Single View - 07/27/2021 5:27 am CLINICAL HISTORY: The patient is 75 years old and is Female; ABDOMINAL DISTENTION TECHNIQUE: Frontal view of the chest. COMPARISON: No relevant prior studies available. FINDINGS: Lungs: Unremarkable. No consolidation. Pleural space: Unremarkable. No pneumothorax. Heart: Unremarkable. Mediastinum: Unremarkable. Bones/joints: Unremarkable. Tubes, lines and devices: Right central venous catheter with tip in the SVC. IMPRESSION: No acute findings in the chest. Electronically signed by: Dru Layton MD 07/27/2021 5:41 AM CDT Due to temporary technical issues with the PACS/Fluency reporting system, reports are being signed by the in house radiologist without review as a courtesy to ensure prompt reporting. The interpreting r adiologist is fully responsible for the content of the report.
--- NOTE | 2021-07-28 14:39 | P.PN ---
Subjective Date of Service: 07/28/21 Chief Complaint: Acute pancreatitis Subjective: No new changes, No C/O voiced Still complaining of generalized lower abdominal pain. States slowly improving Pain not worse with meal Physical Examination - Vital Signs Temperature: 98.1 F Blood Pressure: 155/68 Pulse: 71 Respirations: 18 Pulse Ox (%): 99 Assessment And Plan Discharge Plan: Home Physician Review: Patient Assessed, Agree with Above Assessment and Plan Physician Review Additional Text: - Physical Exam General: Alert, In no apparent distress, Oriented x3 HEENT: Atraumatic, PERRLA, Mucous membr. moist/pink, EOMI, Sclerae nonicteric Neck: Supple, 2+ carotid pulse no bruit, No LAD, Without JVD or thyroid abnormality Respiratory: Clear to auscultation bilaterally, Normal air movement Cardiovascular: Regular rate/rhythm, Normal S1 S2 Gastrointestinal: Normal bowel sounds, Soft and benign, Non-distended, No rebound, No guarding, Tenderness Musculoskeletal: No clubbing, No swelling, No tenderness Integumentary: No rashes Neurological: Normal gait, Normal speech, Normal strength at 5/5 x4 extr, Normal tone, Normal affect Lymphatics: No axilla or inguinal lymphadenopathy - Studies Laboratory Data (last 24 hrs) 07/27/21 08:05: PT 12.1, INR 1.10 07/27/21 08:05: WBC 6.9, Hgb 11.8 L, Hct 36.1, Plt Count 217 07/27/21 06:35: Sodium 136, Potassium 4.2, BUN 15, Creatinine 0.76, Glucose 261 H, Magnesium 1.9, Total Bilirubin 0.5, AST 10 L, ALT 15, Alkaline Phosphatase 124 H, Lipase 155 Assessment & Plan - Problems (Diagnosis) (1) Acute on chronic pancreatitis Onset Date: 08/13/16 Current Visit: No Status: Acute - Plan Plan: 1. Imaging finding of acute pancreatitis Lipase remain normal Continue pain regimen Advance diet as tolerated Plan for discharge home when pain controlled Continue straight BP and glycemic control 6. Gi DVT prophylaxis Discharge Plan: Home Plan to discharge in: in am Time Spent Managing PTS Care (In Minutes): 30
[2021-07-28] MEDS ORDERED: ALBUTEROL 2.5 MG/3 ML NEB SOL NEB PRN (22:13)
[2021-07-28] MEDS ORDERED: HYDRALAZINE HCL 20 MG/ML VIAL IV PRN (22:49)
[2021-07-28 22:58] VITALS: O2SAT 100
[2021-07-29] MEDS ORDERED: FAMOTIDINE 20 MG/2 ML VIAL IV ONE (00:55)
[2021-07-29] MEDS: ONDANSETRON 4 MG/2 ML VIAL IV PRN (09:50)
[2021-07-29] MEDS: HYDROMORPHONE HCL 1 MG/ML INJ IV PRN (09:50)
[2021-07-29] MEDS: SOLIFENACIN SUCCIN 5 MG TAB PO SCH (09:50)
[2021-07-29] MEDS: PANTOPRAZOLE 40MG TABLET PO SCH (09:50)
--- NOTE | 2021-07-29 11:05 | P.DS ---
Admission Date: 07/27/21 Discharge Date: 07/29/21 Disposition: ROUTINE DISCHARGE Discharge Condition: GOOD Reason for Admission: Acute pancreatitis Brief History of Present Illness: Reason for admission: Acute pancreatitis History of Present Illness: patient is a 75-year-old female came to the hospital with acute pancreatitis. Patient has had chronic pancreatitis for quite a while. She started having some epigastric tenderness along with nausea and vomiting. He came to the emergency room for further evaluation. CT imaging in the emergency room revealed mild pancreatitis. Lipase is normal. At this time, patient will be admitted for observation. Will go ahead and try to get her pain controlled. Start her on low-fat diet. If patient tolerates and lipase is remaining normal and pain is controlled the display discharged home with pain medication in follow-up as an outpatient. Allergies No Known Allergies Allergy (Verified 08/13/20 08:29) Home Medications: Pantoprazole [Protonix Tab*] 40 mg PO DAILY 08/16/20 Solifenacin Succinate [Vesicare] 1 tab PO DAILY 07/27/21 Hospital Course: Patient with history of chronic pain syndrome, on chronic hydrocodone at home but states she recently ran out, admitted for recurrent abdominal cramps. CT findings of acute on chronic pancreatitis but normal lipase level. She was tolerating p.o. well without any worsening of her pain although she still continues to have intermittent bouts of abdominal cramps. She was also continued of urine incontinence. Urinalysis was negative for UTI. Her pain did improve with restart of hydrocodone. She will be discharged home today to follow-up in 1 week with her PCP Vital Signs/Physical Exam: Temp Pulse Resp BP Pulse Ox 98.7 F 76 14 145/70 H 98 07/29/21 08:00 07/29/21 08:00 07/29/21 09:50 07/29/21 08:00 07/29/21 09:50 General: Alert, In no apparent distress, Oriented x3, Obese HEENT: Atraumatic, Normocephalic, PERRLA Neck: Supple, 2+ carotid pulse no bruit, JVD not distended Respiratory: Clear to auscultation bilaterally, Normal air movement Cardiovascular: No edema, Normal pulses, Regular rate/rhythm, Normal S1 S2 Gastrointestinal: Normal bowel sounds, Soft and benign, Non-distended Musculoskeletal: No clubbing, No swelling Neurological: Normal gait, Normal speech, Normal strength at 5/5 x4 extr, Normal tone, Sensation intact, Cranial nerves 3-12 intact Laboratory Data at Discharge: WBC 5.6 K/uL (4.3-10.9) D 07/28/21 04:35 Hgb 10.6 g/dL (12.0-15.0) L 07/28/21 04:35 Hct 33.9 % (36.0-45.0) L 07/28/21 04:35 Plt Count 171 K/uL (152-406) D 07/28/21 04:35 PT 12.1 SECONDS (9.5-12.5) 07/27/21 08:05 INR 1.10 07/27/21 08:05 Sodium 139 mmol/L (136-145) 07/28/21 04:35 Potassium 4.2 mmol/L (3.5-5.1) 07/28/21 04:35 BUN 7 mg/dL (7-18) 07/28/21 04:35 Creatinine 0.73 mg/dL (0.55-1.3) 07/28/21 04:35 Glucose 228 mg/dL (74-106) H 07/28/21 04:35 Magnesium 1.9 mg/dL (1.8-2.4) 07/27/21 06:35 Total Bilirubin 0.6 mg/dL (0.2-1.0) 07/28/21 04:35 AST 15 U/L (15-37) 07/28/21 04:35 ALT 15 U/L (12-78) 07/28/21 04:35 Alkaline Phosphatase 110 U/L (45-117) 07/28/21 04:35 Triglycerides 193 mg/dL (<150) H 07/28/21 04:35 Cholesterol 145 mg/dL (<200) 07/28/21 04:35 HDL Cholesterol 46 mg/dL (40-60) 07/28/21 04:35 Cholesterol/HDL Ratio 3.15 07/28/21 04:35 Lipase 109 U/L (73-393) 07/28/21 04:35 Home Medications: Pantoprazole [Protonix Tab*] 40 mg PO DAILY 08/16/20 Solifenacin Succinate [Vesicare] 1 tab PO DAILY 07/27/21 Hydrocodone 7.5/APAP 325 [[place] 7.5/325 mg] 1 tab PO Q6H PRN #30 tab 07/28/21 New Medications: Hydrocodone 7.5/APAP 325 [[place] 7.5/325 mg] 1 tab PO Q6H PRN #30 tab PRN Reason: Pain Physician Discharge Instructions: OK TO DC IV AND DC HOME FOLLOW-UP WITH PRIMARY CARE PROVIDER IN 1-2 WEEKS FOLLOW-UP WITH Cardiology Fellow IN 1-2 WEEKS RETURN TO THE ER IF symptoms worsen CALL DR. PRATT AT [phone] IF ANY QUESTIONS REGARDING HOSPITAL STAY. PLEASE CALL THE FLOOR AT [phone] IF ANY MEDICATION OR NURSING QUESTIONS. Diet: Regular Activity: Ad ange Followup: Dmitry Powell, [Primary Care Provider] - Time spent managing pt's care (in minutes): 35
[2021-07-29 14:14] VITALS: BP 179/88; TEMP 97.6
== END 2021-07-29 13:54 | disposition home or self-care (01) ==
LOC: ER 04:06 → ERHOLD 11:57 → 2ND 12:18
PROVIDERS: ADMIT Hospitalist; ATTEND Internal Medicine
PROC: 02HV33Z Insertion of Infusion Device into Superior Vena Cava, Percutaneous Approach (ICD-10-PCS; principal; 2021-07-27)
DX: K85.90 Acute pancreatitis without necrosis or infection, unspecified (principal); K86.1 Other chronic pancreatitis; G89.4 Chronic pain syndrome; K21.9 Gastro-esophageal reflux disease without esophagitis; K44.9 Diaphragmatic hernia without obstruction or gangrene; K22.4 Dyskinesia of esophagus; I10 Essential (primary) hypertension; F41.8 Other specified anxiety disorders; E78.5 Hyperlipidemia, unspecified; K76.0 Fatty (change of) liver, not elsewhere classified; R32 Unspecified urinary incontinence; N20.0 Calculus of kidney; F98.8 Other specified behavioral and emotional disorders with onset usually occurring in childhood and adolescence; Z20.822 Contact with and (suspected) exposure to COVID-19; Z79.899 Other long term (current) drug therapy; Z87.440 Personal history of urinary (tract) infections; Z87.891 Personal history of nicotine dependence; Z90.49 Acquired absence of other specified parts of digestive tract; Z90.710 Acquired absence of both cervix and uterus; Z83.3 Family history of diabetes mellitus; Z82.49 Family history of ischemic heart disease and other diseases of the circulatory system; Z80.9 Family history of malignant neoplasm, unspecified; Z82.0 Family history of epilepsy and other diseases of the nervous system
CPT/HCPCS: 36569; 93005; 85025 ×2; 80048; 36415; 83735; 85610; 80061; 80076; 81003; 84484; 83690 ×2; 80053; 83880; 74176; 71045; 99285; U0003; J2550; J1170 ×8; G0378 ×5; J7030 ×4; J2405 ×7; J3490

== ENCOUNTER 2021-09-16 08:41 | Observation (INO) | payer MEDICARE ==
--- NOTE | 2021-09-12 12:01 | RAD REPORT ---
EXAM DESCRIPTION: RAD - Chest Pa And Lat (2 Views) - 09/12/2021 11:33 am CLINICAL HISTORY: pre op for surgery Chest pain. COMPARISON: Chest Single View dated 07/27/2021; Chest Single View dated 12/16/2020; Abdomen 1 View (K UB) dated 09/26/2020; Chest Single View dated 09/20/2020 FINDINGS: The lungs are clear. The heart is normal in size. No displaced fractures. Right-sided veno us catheter tip in the SVC. IMPRESSION: No acute or concerning finding suspected.
[2021-09-12 12:23] LABS: SARS-CoV-2 Antigen Rapid Res Negative (Negative)
[2021-09-16] MEDS ORDERED: CEFAZOLIN 2 GM IN 0.9% NACL 2 GM/100 ML BAG ONE (09:10)
[2021-09-16] MEDS ORDERED: Ringers Lactate 1,000 ML IV ONE (09:10)
[2021-09-16] MEDS ORDERED: LIDOCAINE 1% 20 ML MDV ONE (10:43)
[2021-09-16] MEDS ORDERED: LIDOCAINE 1% MPF 5 ML VIAL ONE (12:42)
[2021-09-16] MEDS ORDERED: FENTANYL CITR 100 MCG/2 ML ONE (12:42)
[2021-09-16] MEDS ORDERED: dexAMETHasone 10 MG/ML VIAL ONE ×2 (12:42→16:41)
[2021-09-16] MEDS ORDERED: MIDAZOLAM HCL 2 MG/2 ML INJ ONE (12:42)
[2021-09-16] MEDS ORDERED: propofoL 200 MG/20 ML VIAL IV ONE (12:42)
[2021-09-16] MEDS ORDERED: ONDANSETRON 4 MG/2 ML VIAL ONE ×2 (12:43→15:44)
[2021-09-16] MEDS ORDERED: METHYLENE BLUE 0.5% 10 ML AMP ONE (13:16)
[2021-09-16] MEDS ORDERED: TRIAMCINOLONE ACETON 40 MG/ML VIAL ONE (13:17)
[2021-09-16] MEDS ORDERED: PHENAZOPYRIDINE 100MG TAB PO ONE (13:55)
[2021-09-16] MEDS ORDERED: CODEINE 30MG/APAP 300MG TAB PO PRN (13:55)
[2021-09-16] MEDS: MORPHINE 4 MG/ML SYR ONE ×2 (14:03→14:08)
[2021-09-16] MEDS: HYDROMORPHONE HCL 1 MG/ML INJ ONE ×4 (14:16→14:44)
[2021-09-16] MEDS ORDERED: KETOROLAC 30 MG/ML INJ ONE (14:58)
[2021-09-16] MEDS ORDERED: KETOROLAC 30 MG/ML INJ IV SCH (17:08)
[2021-09-16] MEDS ORDERED: PHENAZOPYRIDINE 100MG TAB PO PRN (17:08)
[2021-09-16] MEDS ORDERED: NACL 0.9% IRRG SOLN 1000 ML IRR PRN (17:08)
[2021-09-16] MEDS ORDERED: HYDROCODONE/APAP 5/325 MG TAB PO PRN (17:08)
[2021-09-16] MEDS ORDERED: SODIUM CHL 0.9% IRR SOLN 2000 ML IRR SCH (17:08)
[2021-09-16 17:16] LABS: SARS-CoV-2 Antigen Rapid Res Negative (Negative)
[2021-09-16] MEDS ORDERED: LABETALOL 20 MG/4ML SYRINGE IV ONE (18:00)
[2021-09-16 18:47] LABS: Amylase 41 U/L (25-115); Lipase 110 U/L (73-393)
[2021-09-16] MEDS: CEPHALEXIN 500 MG CAP PO SCH ×2 (19:27→23:54)
[2021-09-16] MEDS: D5.45NS W/KCL 20MEQ 20 MEQ/1,000 ML BAG IV SCH (19:27)
--- NOTE | 2021-09-16 19:40 | OP ---
Surgeon: RAUL SHAIKH Preoperative Diagnoses: 1.Detrusor instability associated lower urinary tract symptoms. 2.Urge incontinence. 3.Bladder lesion. 4.Pelvic pain syndrome. Postoperative Diagnoses: 1.Detrusor instability associated lower urinary tract symptoms. 2.Urge incontinence. 3.Bladder lesion. 4.Pelvic pain syndrome. 5.Cystitis cystica and glandularis. 6.Vulvovaginitis. 7.Trabeculated bladder with diminished capacity approximately 250 cc. Principle Procedures: 1.Cystoscopy with bladder biopsies and fulguration. 2.Urethral Dobson catheter placement and methylene blue intravesical instillation, assessment of vesi covaginal fistula. Indication For Procedure: Ms. Bettencourt is a 75-year-old woman with history of chronic pancreatitis, NATACHA D, hypertension, and history of percutaneous intervention for coronary artery disease, who was previo usly treated for a 15 x 8 mm left nephrolithiasis associated with recurrent bacterial UTIs. She sinc e has had no further bacterial infections, but she now has severe incontinence as well as pelvic pain and dysuria. She expresses that she feels like it is just burning down below chronically. She unde rwent urodynamic evaluation, which revealed an unstable detrusor and urge associated detrusor contrac tions consistent with detrusor instability related incontinence. Efforts to medically manage her inc ontinence and pelvic pain medically have largely been unsuccessful. She also has had urinary culture s when voided specimens that all returned fungus that has been treated on multiple occasions. As a r esult, because bladder lesions had been observed previously, in an effort to rule out any underlying malignancy, but also to assess for the potential of vesicovaginal fistula given her prior hysterectom y, I recommended operative evaluation and management. Procedure In Detail: The patient was consented in the preoperative holding area before being transfe rred to the operative suite where general anesthesia was induced. She was given 2 g Ancef IV antimic robial prophylaxis and pneumo boots were provided for DVT prophylaxis. She was placed in the lithoto my position, padded and secured to the table appropriately. Her genitalia were prepped using [place] ns and she was draped in standard fashion. The case was begun using a 22-Belgian rigid cystoscope to traverse the urethra and enter her bladder with ease. 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 At this time, I did not see any fairly suspicious erythematous regions within the bladder. As a result, I performed random bladder biopsies targeting these cystitis cystica lesions within the trigone, posterior wall of the b ladder, dome of the bladder, left and right lateral araya of the bladder. These were sent for pathol ogic analysis. I then carefully fulgurated the base of each of these lesions and ensured that there was no ongoing bleeding with the bladder decompressed. I then placed an 18-Belgian urethral Dobson cat heter into her bladder and decompressed the remainder of the fluid and urine. I then retrograde inst illed using a gravity instillation at about 20 cm of water pressure. A mixture of methylene blue in 400 cc of normal saline. Her bladder did fill with ease and relatively adequate compliance until cem roximately 220 cc of fluid had been instilled. At this point, the bladder pressure did increase and she started to reflux the fluid back into the cylinder indicative of greater than 20 cm of pressure w as being generated. Of note, while the methylene blue containing fluid was being instilled into her bladder, I placed several Ray-Les sponges into her vaginal cuff to assess for the presence of vesicov aginal fistula. After decompressing her bladder of the fluid and urine, I removed the Ray-Les sponge s, and there was no blue on the sponge indicating the absence of any vesicovaginal fistula. Vaginal exam was then performed and there was significant vulvovaginitis with erythematous and very irritated mucosa. She also had a grade 1 rectocele that was visible. No other abnormalities were noted on bi manual examination. As a result, I connected the Dobson catheter to a leg bag and took the patient ou t of the lithotomy position. She was then awakened from general anesthesia, transferred to [facility], and then transferred to the recovery room in good condition. Complications: None. Discharge Disposition: I would like for to keep the catheter for the next 1-2 days to allow bladder rest and healing from the biopsy sites. She may have the catheter removed in the office on or Wednesday, and we will provide a dose of antimicrobial prophylaxis in the office at that time. I jackie l reinforce that she is utilizing triamcinolone nystatin ointment at least twice daily to the entire vulvovaginal region to treat the vaginitis noted there. Ultimately, followup should be established i n about 2 weeks' time to discuss the results of the pathology and determine next steps, which if no m alignancy is noted, would involve consideration of intravesical Botox versus potential tibial nerve s timulator therapy. LUCHO/MARIA G Voice ID: [id number] Report ID: [id number]
--- NOTE | 2021-09-16 19:58 | P.PN ---
Subjective Date of Service: 09/16/21 Chief Complaint: pelvic pain and nausea Patient s/p uncomplicated cysto + bladder biopsies with methylene blue intravesical assessment of V-V fistula revealing evidence of chronic cystitis cystica, low capacity unstable bladder with incontinence, and no vesicovaginal fistula. Post-operatively, she c/o pelvic pain requiring multiple doses of narcotics provided by anesthesia and toradol provided by me. She then began to c/o nausea despite Zofran administration. Physical Examination - Vital Signs Temperature: 98 F Blood Pressure: 163/78 Pulse: 68 Respirations: 16 - Physical Exam General: In no apparent distress HEENT: Atraumatic, Normocephalic Respiratory: Normal air movement Neurological: Normal speech Urinary: Dobson catheter External genitalia: Other (vulvovaginitis) - Studies Laboratory Data (last 24 hrs) 09/16/21 17:17: Amylase 41, Lipase 110 09/16/21 16:31: Amylase Cancelled, Lipase Cancelled Assessment And Plan - Plan 75yo woman with h/o CAD p PCI, h/o recurrent pancreatitis, and other chronic medical conditions who is s/p uncomplicated cysto with bladder biopsies, Dobson catheter placement and Methylene blue test confirming absence of V-V fistula with significant pelvic pain post-operatively and nausea without vomiting. - will admit overnight for observation - Amylase/Lipase to r/o pancreatitis - IVFs - IV Dilaudid - Toradol 15 IV q 8h - Nystatin cream to vulvovaginal region - Keflex 500mg q8h - Discharge in AM - Code Status/Comfort Care Code Status Assessed: No Code Status: Full Code Critical Care: No Time Spent Managing PTS Care (In Minutes): 20
[2021-09-16] MEDS: ONDANSETRON 4 MG/2 ML VIAL IV PRN (20:56)
[2021-09-16] MEDS: PANTOPRAZOLE 40MG TABLET PO SCH (20:56)
[2021-09-16] MEDS ORDERED: AMITRIPTYLINE 50 MG TAB PO SCH (21:00)
[2021-09-16] MEDS ORDERED: NYSTATIN 100MU/GM CREAM 15GM TOP SCH (21:00)
[2021-09-16] MEDS: HYDROMORPHONE HCL 0.5 MG/0.5 ML INJ IV PRN (22:15)
[2021-09-16 23:29] VITALS: O2SAT 94; BMI 30.4
[2021-09-17] MEDS: KETOROLAC 30 MG/ML INJ IV SCH ×3 (00:01→16:56)
[2021-09-17] MEDS: HYDROMORPHONE HCL 0.5 MG/0.5 ML INJ IV PRN ×2 (01:32→14:09)
[2021-09-17] MEDS: CEPHALEXIN 500 MG CAP PO SCH ×3 (05:25→16:56)
[2021-09-17] MEDS: D5.45NS W/KCL 20MEQ 20 MEQ/1,000 ML BAG IV SCH (06:28)
[2021-09-17] MEDS ORDERED: GLUCAGON 1 MG/VIAL IM PRN ×3 (12:02→23:16)
[2021-09-17] MEDS ORDERED: D50W 25 GM/50 ML SYRINGE IV PRN ×2 (12:02→23:16)
[2021-09-17] MEDS ORDERED: DEXTROSE 10%-WATER 125 ML IV PRN (12:22)
[2021-09-17] MEDS: INSULIN -REGULAR HUMAN 50 UNIT/0.5 ML ML SQ SCH ×2 (12:34→20:57)
--- NOTE | 2021-09-17 13:32 | P.CNS ---
Date of Consult: 09/17/21 Reason for Consult: medical management/hyperglycemia Requesting Physician: John Garcia Chief Complaint: pelvic pain and nausea History of Present Illness: patient attended 75-year-old female who came to the hospital for cystoscopy to evaluate a bladder mass. Biopsy was performed the patient was admitted for observation overnight. Patient is extended stay hospitalization. Patient also has a history of diabetes and chronic pancreatitis. I have admitted her to the hospital on numerous occasions for pancreatitis. At this time she will be admitted for observation. Patient to be discharged in the morning. Blood sugars are slightly elevated and we need to get strict blood sugar control. Allergies No Known Allergies Allergy (Verified 09/16/21 09:15) Home Medications: Pantoprazole [Protonix Tab*] 40 mg PO DAILY 08/16/20 Hydrocodone 7.5/APAP 325 [[place] 7.5/325 mg*] 1 tab PO Q6H PRN #30 tab 07/28/21 Simvastatin 1 tab PO DAILY 09/12/21 Sucralfate [Carafate*] 1 tab PO DAILY 09/12/21 Fluconazole 1 tab PO DAILY 09/16/21 Nystatin/Triamcin [Nystatin-Triamcinolone Cream] 30 gm TP BID 42 Days #1 cream..g. 09/16/21 - Past Medical/Surgical History Diabetic: Yes -: kidney stones -: Gastroesophageal reflux disease w Hiatal hernia -: Esophageal spasm -: Attention deficit disorder -: Hypertension -: Depression with anxiety -: Hyperlipidemia -: Chronic pain -: Fatty liver, nonalcoholic -: Urinary incontinence/Nephrolithiasis -: Recurrent UTI -: Hysterectomy -: Cholecystectomy -: Appendectomy -: back surgery -: knee surgery -: foot surgery -: EGD/ERCP -: Cardiac catheterization, no stent Psychosocial/ Personal History: Patient lives at home - Family History Father Medical History: Diabetes, Cancer Notes: Type 2 Mother Medical History: Hypertension, Diabetes, Other (see notes) Notes: Hypoglycemia Sister Notes: epilepsy - Social History Smoking Status: Former smoker Alcohol use: No CD- Drugs: Yes Caffeine use: No Place of Residence: Home Review of Systems 10-point ROS is otherwise unremarkable Physical Examination Temp Pulse Resp BP Pulse Ox 98.8 F 80 16 144/70 H 96 09/17/21 12:53 09/17/21 12:53 09/17/21 12:53 09/17/21 12:53 09/17/21 12:53 General: Alert, In no apparent distress, Oriented x3 HEENT: Atraumatic, PERRLA, Mucous membr. moist/pink, EOMI, Sclerae nonicteric Neck: Supple, 2+ carotid pulse no bruit, No LAD, Without JVD or thyroid abnormal ity Respiratory: Clear to auscultation bilaterally, Normal air movement Cardiovascular: Regular rate/rhythm, Normal S1 S2 Gastrointestinal: Normal bowel sounds, No tenderness Musculoskeletal: No tenderness Integumentary: No rashes Neurological: Normal gait, Normal speech, Normal tone, Normal affect Lymphatics: No axilla or inguinal lymphadenopathy Laboratory Data (last 24 hrs) 09/16/21 17:17: Amylase 41, Lipase 110 09/16/21 16:31: Amylase Cancelled, Lipase Cancelled - Problems (1) Elevated blood sugar Current Visit: No Status: Acute (2) Chronic pain syndrome Onset Date: 08/31/17 Current Visit: No Status: Chronic (3) Chronic pancreatitis Onset Date: 08/31/17 Current Visit: No Status: Chronic Qualifiers: Pancreatitis type: unspecified pancreatitis type Qualified Code(s): K86.1 - Other chronic pancreatitis (4) Depression with anxiety Onset Date: 08/31/17 Current Visit: No Status: Chronic (5) Diabetes mellitus type 2 in obese Current Visit: No Status: Chronic (6) HTN (hypertension) Onset Date: 08/31/17 Current Visit: No Status: Chronic Qualifiers: Hypertension type: primary hypertension Qualified Code(s): I10 - Essential (primary) hypertension (7) Hyperlipidemia Onset Date: 08/31/17 Current Visit: No Status: Chronic Qualifiers: Hyperlipidemia type: unspecified Qualified Code(s): E78.5 - Hyperlipidemia, unspecified Conclusions/ Impression: Plan: 1. Strict blood sugar control 2. Pain control 3. Outpatient follow-up with Urology for biopsy results 4. Anticipate discharge in the a.m. 5. DVT prophylaxis Critical Care: No Time Spent Managing Pts care (In Minutes): 45
[2021-09-17] MEDS: ONDANSETRON 4 MG/2 ML VIAL IV PRN (14:09)
[2021-09-17] MEDS ORDERED: DEXTROSE 10%-WATER 500 ML IV BAG IV PRN (16:17)
[2021-09-17] MEDS ORDERED: INSULIN 70/30 100 UNITS/ML SQ ONE (17:00)
[2021-09-17] MEDS: PANTOPRAZOLE 40MG TABLET PO SCH (20:56)
[2021-09-17] MEDS ORDERED: HYDROCODONE/APAP 7.5/325 MG TAB PO PRN (23:16)
[2021-09-17] MEDS ORDERED: D10W 125 ML IV PRN (23:19)
[2021-09-18] MEDS: KETOROLAC 30 MG/ML INJ IV SCH ×2 (01:00→08:12)
[2021-09-18] MEDS: CEPHALEXIN 500 MG CAP PO SCH ×3 (06:39→12:28)
[2021-09-18 06:54] LABS: Absolute Lymphocytes (CBC) 1.6 K/uL (0.7-4.9); Hematocrit 28.6 % (36.0-45.0); Lymphocytes % 15.8 % (15.3-44.8); MCV 73.5 fL (80-100); MPV 7.9 fL (7.6-11.3); RBC Red Blood Cell Count 3.89 M/uL (3.86-4.86)
[2021-09-18 07:04] LABS: Potassium 3.8 mmol/L (3.5-5.1)
[2021-09-18] MEDS: INSULIN -REGULAR HUMAN 50 UNIT/0.5 ML ML SQ SCH ×2 (07:30→12:30)
[2021-09-18] MEDS ORDERED: SUCRALFATE 1 GM TABLET PO SCH (09:00)
[2021-09-18] MEDS ORDERED: PANTOPRAZOLE 40MG TABLET PO SCH (09:00)
[2021-09-18] MEDS ORDERED: FLUCONAZOLE 100 MG TAB PO SCH (09:00)
[2021-09-18 13:00] VITALS: BP 181/79; TEMP 97.4
[2021-09-18] MEDS ORDERED: ATORVASTATIN 10 MG TAB PO SCH (21:00)
[2021-09-18] MEDS ORDERED: INSULIN 70/30 100 UNITS/ML SQ ONE (23:16)
--- NOTE | 2021-09-22 09:55 | P.DS ---
Discharge Date: 09/18/21 Disposition: ROUTINE DISCHARGE Discharge Condition: GOOD Reason for Admission: pelvic pain and nausea - Problems (1) Elevated blood sugar Status: Acute (2) Chronic pain syndrome Onset Date: 08/31/17 Status: Chronic (3) Chronic pancreatitis Onset Date: 08/31/17 Status: Chronic Qualifiers: Pancreatitis type: unspecified pancreatitis type Qualified Code(s): K86.1 - Other chronic pancreatitis (4) Depression with anxiety Onset Date: 08/31/17 Status: Chronic (5) Diabetes mellitus type 2 in obese Status: Chronic (6) HTN (hypertension) Onset Date: 08/31/17 Status: Chronic Qualifiers: Hypertension type: primary hypertension Qualified Code(s): I10 - Essential (primary) hypertension (7) Hyperlipidemia Onset Date: 08/31/17 Status: Chronic Qualifiers: Hyperlipidemia type: unspecified Qualified Code(s): E78.5 - Hyperlipidemia, unspecified Brief History of Present Illness: patient attended 75-year-old female who came to the hospital for cystoscopy to evaluate a bladder mass. Biopsy was performed the patient was admitted for observation overnight. Patient is extended stay hospitalization. Patient also has a history of diabetes and chronic pancreatitis. I have admitted her to the hospital on numerous occasions for pancreatitis. At this time she will be admitted for observation. Patient to be discharged in the morning. Blood sugars are slightly elevated and we need to get strict blood sugar control. Hospital Course: Patient's blood sugars are stable. Patient will follow-up with urology as an outpatient. Patient will also follow with PCP to get better blood sugar contro l. Patient is stable for discharge and follow-up as recommended. Vital Signs/Physical Exam: Temp Pulse Resp BP Pulse Ox 97.4 F 63 20 181/79 H 97 09/18/21 12:00 09/18/21 12:00 09/18/21 12:00 09/18/21 12:00 09/18/21 12:00 General: Alert, In no apparent distress, Oriented x3 Laboratory Data at Discharge: WBC 10.0 K/uL (4.3-10.9) 09/18/21 06:30 Hgb 9.6 g/dL (12.0-15.0) L 09/18/21 06:30 Hct 28.6 % (36.0-45.0) L 09/18/21 06:30 Plt Count 206 K/uL (152-406) 09/18/21 06:30 Sodium 138 mmol/L (136-145) 09/18/21 06:30 Potassium 3.8 mmol/L (3.5-5.1) 09/18/21 06:30 BUN 23 mg/dL (7-18) H 09/18/21 06:30 Creatinine 0.80 mg/dL (0.55-1.3) 09/18/21 06:30 Glucose 184 mg/dL (74-106) H 09/18/21 06:30 Amylase 41 U/L (25-115) 09/16/21 17:17 Lipase 110 U/L (73-393) 09/16/21 17:17 Home Medications: Pantoprazole [Protonix Tab*] 40 mg PO DAILY 08/16/20 Hydrocodone 7.5/APAP 325 [[place] 7.5/325 mg*] 1 tab PO Q6H PRN #30 tab 07/28/21 Simvastatin 1 tab PO DAILY 09/12/21 Sucralfate [Carafate*] 1 tab PO DAILY 09/12/21 Fluconazole 1 tab PO DAILY 09/16/21 Nystatin/Triamcin [Nystatin-Triamcinolone Cream] 30 gm TP BID 42 Days #1 cream..g. 09/16/21 Glimepiride [Amaryl] 2 mg PO DAILY #30 tablet 09/17/21 Metformin HCl [Glucophage*] 500 mg PO BIDWM #60 tab 09/17/21 Phenazopyrididine [Pyridium*] 100 mg PO TID PRN #30 tab 09/17/21 New Medications: Glimepiride [Amaryl] 2 mg PO DAILY #30 tablet Metformin HCl [Glucophage*] 500 mg PO BIDWM #60 tab Nystatin/Triamcin [Nystatin-Triamcinolone Cream] 30 gm TP BID 42 Days #1 cream..g. Phenazopyrididine [Pyridium*] 100 mg PO TID PRN #30 tab PRN Reason: dysuria Physician Discharge Instructions: Diet:Independence Activity:Ad ange PHYSICIAN'S DISCHARGE INSTRUCTIONS Biopsies of your bladder were taken today, so to allow you a period of bladder rest, I am leaving the Dobson catheter, and I would like for you to keep it for the next 2 to 3 days. Please contact my office and we will remove the catheter for you either or Wednesday. We will provide you a dose of antibiotic therapy in the office at the time of catheter removal. Please schedule follow-up with me in about 2 weeks time to discuss the results of the pathology of the bladder biopsies taken. I also was able to confirm the absence of any vesicovaginal fistula, but I did verify the ongoing presence of significant vulvovaginitis. This may be the source of your burning pelvic discomfort. It may not be coming from your bladder, though we do have to deal with the fact that your bladder does not hold much urine (has a low capacity) and tends to squeeze uncontrollably when you feel the urge to urinate. To that end, I have sent a prescription for triamcinolone nystatin cream, which I would like for you to apply to the labia majora and labia minora, within the labial crease above the urethra, and around the urethra and within the entry to the vaginal canal -twice daily. You should also still have the prescription for Vesicare/Solifenacin, which I prescribed for you the last time from my office. I would like for you to continue taking it as well as the amitriptyline, which I prescribed for you the last time in my office. If you are not taking these medications, please notify me via my office. Notify me if you develop any fever (temperature greater than 100.4 Fahrenheit), intractable nausea or vomiting, increasing pain not controlled by pain medications or other unusual signs or symptoms. If you develop bright red and thick/nontranslucent blood in the urine, especially with significant clots, please notify me about this immediately. You may take plain Tylenol (up to 1000 mg every 6 hours) and alternate it every 4 hours with Motrin/ibuprofen (up to 800 mg every 8 hours) as needed for pain. All the best! WBR Diet: ADA Activity: Ad ange Followup: Jonh Garcia [ACTIVE - CAN ADMIT] - Time spent managing pt's care (in minutes): 35
--- OUTSIDE RECORDS SUMMARY | 2021-09-25 01:57 | XMS REPORT | Continuity of Care Document ---
:1945 Author Organization [facility] t Address [address] [place] [address] Care Team Providers Name Role Phone Angelo Powell DO Primary Care Physician Koko Powell Attending Clinician Unavailable LAZARUS Attending Clinician Unavailable LAZARUS Admitting Clinician Unavailable Payers Payer Name Policy Type Policy Number Effective Date Expiration Date S wilfredo MEDICARE A B [id number] 2012 00:00:00 [facility] [id number] (MEDICARE 00:00:00 REPLACEMENT HMO) Problems Condition Condition Condition Status Onset Resolution Last Treating Co mments Source Name Details Category Date Date Treatment Clinician Date Essential Essential Disease Active [facility] hypertensi 11-09 Mansi kes on on 00:00: Medical 00 Center 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 11-09 Luke s 00:00: Medical 00 [facility] Acute Acute Disease Active [facility] pancreatit pancreatit 11-09 Mansi kes is is 00:00: Medical 00 Center Allergies, Adverse Reactions, Alerts Allergy Allergy Status Severity Reaction(s) Onset Inactive Treating Comm ents Source Name Type Date Date Clinician NO KNOWN Allergy Active [facility] Social History Social Habit Start Date Stop Date Quantity Comments Source History [facility] Alcohol Std Drinks Medica l Center History [facility] Alcohol Binge Medical Carl ter Sex Assigned At [facility] Tobacco use and 2018-11-09 2018-11-[address] [facility] St Nazario kes exposure 00:00:00 00:00:00 [facility] Alcohol intake 2018-11-09 2018-11-[address] [facility] [place] [facility] 00:00:00 00:00:00 non-drinker of Medical Ce nter alcohol (finding) History [facility] 2018-11-09 2018-11-[address] [facility] Alcohol Frequency 00:00:00 00:00:00 [facility] Smoking Status Start Date Stop Date Source Former smoker 2018-11-09 00:00:00 2018-11-09 00:00:00 [facility] Medications Ordered Filled Start Stop Current Ordering Indication Dosage Frequency Signature Comments Components Source Medication Medication Date Date Medication? Clinician (SIG) Name Name pantoprazol Yes 40mg Q.5D Take [address] 9-06 by mouth [facility] (PROTONIX) 17:24: (two) Medica l 40 MG 08 times Center tablet daily . lipase-prot Yes [id number]{ Take [facility] ease-amylas 9-06 lipase} 36,000 [...] capsule 08 (two) Center times daily. lisinopril 2019- Yes 40mg QD Take [address] (PRINIVIL,Z 9-06 by mouth Luke s ESTRIL) 40 17:24: daily. Medic al MG tablet 08 Center pantoprazol Yes 40mg Q.5D Take [address] [facility] 9-06 by mouth [facility] (PROTONIX) 17:24: (two) Medica l 40 MG 08 times Center tablet daily . lipase-prot 2019-0 Yes [id number]{ Take [facility] 9-06 lipase} 36,000 [...] Center tablet daily . lipase-prot 2019-0 Yes [id number]{ Take [facility] 9-06 lipase} 36,000 [...] 00:00 n to - [facility]00 [facility] Procedures This patient has no known procedures. [...] 00:00:00 (1 of 1 - Medical Center [id number] PCV13) [code = PNEUMOCOCCAL 65+ YRS (1 of 1 - [id number] PCV13)] Future Scheduled 2012-12-28 PNEUMOCOCCAL 65+ YRS [facility] Test 00:00:00 (1 of 1 - Medical Center [id number]_Pehnyrn PCV13) [code = PNEUMOCOCCAL 65+ YRS (1 of 1 - [id number]_Aznpywo PCV13)] Future Scheduled 2012-12-28 PNEUMOCOCCAL 65+ Y[facility] Test 00:00:00 (1 of 1 - Medical Center [id number]_Pwicrwx PCV13) [code = PNEUMOCOCCAL 65+ YRS (1 of 1 - TZNO69_Hpznryt PCV13)] Future Scheduled 1997-12-28 SHINGLES VACCINES (1 [...] Medica l Center breast (procedure) [code = 854843911] Future Scheduled [address] [facility] Test 00:00:00 malignant neoplasm of Medica l Center colon (procedure) [code = 646211646] Future Scheduled [address] [facility] Test 00:00:00 malignant neoplasm of Medica l Center breast (procedure) [code = 772739429] Future Scheduled [address] [facility] Test 00:00:00 malignant neoplasm of Medica l Center colon (procedure) [code = 902367693] Future Scheduled [address] [facility] [facility] Test 00:00:00 malignant neoplasm of Medica l Center breast (procedure) [code = 729986276] Future Scheduled [address] [facility] Test 00:00:00 malignant neoplasm of Medica Center colon (procedure) [code = 391222168] Encounters Start End Encounter Admission Attending Care Care Encounter Source Date/Time Date/Time Type Type Clinicians Facility Department ID 2021-07-31 Outpatient Powell, STLMLC STL[facility] [id number] Common 09:46:01 [facility] 2021-04-02 Outpatient Powell, STLMLC STLMLC [id number] Common 14:02:15 Dmitry 28947 [facility] 2021-04-02 Outpatient Powell, STLMLC STLMLC [id number] Common 14:01:19 Dmitry 77213 [facility] 2021-04-02 Outpatient Powell, STLMLC STLMLC [id number] Common 13:38:40 Dmitry 99567 [facility] 2021-04-02 Outpatient Powell, STLMLC STLMLC [id number] Common 13:36:48 Dmitry 32243 [facility] 2021-04-02 Outpatient Powell, STLMLC STLMLC [id number] Common 13:28:35 Dmitry 62917 [facility] 2021-04-02 Outpatient Powell, STLMLC STLMLC [id number] Common 13:28:20 Dmitry 58069 [facility] 2021-04-02 Outpatient Powell, STLMLC STLMLC [id number] Common 13:04:41 Dmitry 88725 [facility] 2021-04-02 Outpatient Powell, STLMLC STLMLC [id number] Common 12:55:20 Dmitry 23573 [facility] 2021-04-02 Outpatient Powell, STLMLC STLMLC [id number] Common 12:37:32 Dmitry 16043 [facility] 2021-04-02 Outpatient Powell, STLMLC STLMLC [id number] Common 11:40:56 Dmitry 99542 [facility] 2021-04-02 Outpatient Powell, STLMLC STLMLC [id number] Common 11:32:24 Dmitry 91757 [facility] 2021-04-02 Outpatient Powell, STLMLC STLMLC [id number] Common 10:59:26 Dmitry 38306 [facility] 2021-04-02 Outpatient Powell, STLMLC STLMLC [id number] Common 10:59:05 Dmitry 41754 [facility] 2020-12-15 Inpatient UR [facility] [id number] [facility] 01:17:39 [facility] 2021-09-23 2021-09-23 ambulatory STLMLC STLMLC [id number] Common 00:00:00 00:00:00 [facility] 2021-09-22 2021-09-22 ambulatory STLMLC STLMLC [id number] Common 00:00:00 00:00:00 [facility] 2021-09-19 2021-09-19 Outpatient DMG DMG [id number] [facility] 03:36:00 03:36:00 [facility] 2021-08-15 2021-08-15 ambulatory STLMLC STL[facility]C [id number] Common 00:00:00 00:00:00 [facility] 2021-08-12 2021-08-12 ambulatory STLMLC STLMLC [id number] Common 00:00:00 00:00:00 [facility] 2021-08-01 2021-08-01 ambulatory STLMLC STLMLC [id number] Common 00:00:00 00:00:00 [facility] 2021-08-01 2021-08-01 ambulatory STLMLC STLMLC [id number] Common 00:00:00 00:00:00 [facility] 2021-07-31 2021-07-31 ambulatory STLMLC STLMLC [id number] Common 00:00:00 00:00:00 [facility] 2021-07-31 2021-07-31 ambulatory STLMLC STLMLC [id number] Common 00:00:00 00:00:00 [facility] 2021-07-30 2021-07-30 ambulatory STLMLC STL[facility]C [id number] Common 00:00:00 00:00:00 [facility] 2021-07-25 2021-07-25 ambulatory STLMLC STL[facility]C [id number] Common 00:00:00 00:00:00 [facility] 2021-07-22 2021-07-22 ambulatory STLMLC STLMLC [id number] Common 00:00:00 00:00:00 [facility] 2021-07-14 2021-07-14 ambulatory STLMLC STLMLC [id number] Common 00:00:00 00:00:00 [facility] 2021-07-12 2021-07-12 ambulatory STLMLC STLMLC [id number] Common 00:00:00 00:00:00 [facility] 2021-07-05 2021-07-05 Outpatient DMG [facility] [id number] [facility] 09:00:00 09:00:00 0430 [facility] 2021-05-20 2021-05-20 Outpatient DMG DM [id number] [facility] 09:01:00 09:01:00 0315 [facility] 2021-05-14 2021-05-14 ambulatory STLMLC STLMLC [id number] Common 00:00:00 00:00:00 [facility] 2021-05-07 2021-05-07 ambulatory STLMLC STLMLC [id number] Common 00:00:00 00:00:00 [facility] 2021-05-07 2021-05-07 ambulatory STLMLC STLMLC [id number] Common 00:00:00 00:00:00 [facility] 2021-05-06 2021-05-06 ambulatory STLMLC STLMLC [id number] Common 00:00:00 00:00:00 [facility] 2021-04-21 2021-04-21 ambulatory STLMLC STLMLC [id number] Common 00:00:00 00:00:00 [facility] 2021-04-21 2021-04-21 ambulatory STLMLC STLMLC [id number] Common 00:00:00 00:00:00 [facility] 2021-04-18 2021-04-18 ambulatory STLMLC STLMLC [id number] Common 00:00:00 00:00:00 [facility] 2021-04-16 2021-04-16 ambulatory STLMLC STLMLC [id number] Common 00:00:00 00:00:00 [facility] 2021-04-14 2021-04-14 ambulatory STLMLC STLMLC [id number] Common 00:00:00 00:00:00 [facility] 2021-04-10 2021-04-10 ambulatory STLMLC STLMLC [id number] Common 00:00:00 00:00:00 [facility] 2021-04-03 2021-04-03 ambulatory STLMLC STLMLC [id number] Common 00:00:00 00:00:00 [facility] 2021-03-10 2021-03-10 ambulatory STLMLC STLMLC [id number] Common 00:00:00 00:00:00 [facility] 2021-03-06 2021-03-06 ambulatory STLMLC STLMLC [id number] Common 00:00:00 00:00:00 [facility] 2021-03-05 2021-03-05 ambulatory STLMLC STLMLC [id number] Common 00:00:00 00:00:00 [facility] 2021-01-27 2021-01-27 ambulatory STLMLC STLMLC [id number] Common 00:00:00 00:00:00 [facility] 2020-12-25 2020-12-25 Outpatient STLMLC STLMLC [id number] Common 00:00:00 00:00:00 [facility] 2020-12-20 2020-12-20 ambulatory STLMLC STLMLC [id number] Common 00:00:00 00:00:00 [facility] 2020-12-02 2020-12-02 Outpatient STLMLC STLMLC [id number] Common 00:00:00 00:00:00 [facility] 2020-12-02 2020-12-02 Outpatient STLMLC STLMLC [id number] Common 00:00:00 00:00:00 [facility] 2020-12-02 2020-12-02 Outpatient STLMLC STLMLC [id number] Common 00:00:00 00:00:00 [facility] 2020-10-16 2020-10-16 Outpatient STLMLC STLMLC [id number] Common 00:00:00 00:00:00 [facility] 2020-10-16 2020-10-16 Outpatient STLMLC STLMLC [id number] Common 00:00:00 00:00:00 [facility] 2020-10-10 2020-10-10 Outpatient STLMLC STLMLC [id number] Common 00:00:00 00:00:00 [facility] 2020-09-25 2020-09-25 Outpatient STLMLC STLMLC [id number] Common 00:00:00 00:00:00 [facility] 2020-09-20 2020-09-20 Outpatient STLMLC STLMLC [id number] Common 00:00:00 00:00:00 [facility] 2020-09-04 2020-09-04 Outpatient STLMLC STL[facility]C [id number] Common 00:00:00 00:00:00 [facility] 2020-09-04 2020-09-04 Outpatient STLMLC STLMLC [id number] Common 00:00:00 00:00:00 [facility] 2020-09-04 2020-09-04 Outpatient STLMLC STLMLC [id number] Common 00:00:00 00:00:00 [facility] 2020-09-03 2020-09-03 Outpatient STLMLC STLMLC [id number] Common 00:00:00 00:00:00 [facility] 2020-08-27 2020-08-27 Outpatient STLMLC STLMLC [id number] Common 00:00:00 00:00:00 [facility] 2020-08-15 2020-08-15 Outpatient STLMLC STLMLC [id number] Common 00:00:00 00:00:00 [facility] 2020-08-14 2020-08-14 Outpatient STLMLC STLMLC [id number] Common 00:00:00 00:00:00 [facility] 2020-08-01 2020-08-01 Outpatient STLMLC STLMLC [id number] Common 00:00:00 00:00:00 [facility] 2020-07-24 2020-07-24 Outpatient STLMLC STLMLC [id number] Common 00:00:00 00:00:00 [facility] 2020-07-16 2020-07-16 Outpatient STLMLC STLMLC [id number] Common 00:00:00 00:00:00 [facility] 2020-07-16 2020-07-16 Outpatient STLMLC STLMLC [id number] Common 00:00:00 00:00:00 [facility] 2020-07-10 2020-07-10 Outpatient STLMLC STLMLC [id number] Common 00:00:00 00:00:00 [facility] 2020-07-05 2020-07-05 Outpatient STLMLC STLMLC [id number] Common 00:00:00 00:00:00 [facility] 2020-06-27 2020-06-27 Outpatient STLMLC STLMLC [id number] Common 00:00:00 00:00:00 [facility] 2020-06-24 2020-06-24 Outpatient STLMLC STLMLC [id number] Common 00:00:00 00:00:00 [facility] 2020-06-19 2020-06-19 Outpatient STLMLC STLMLC [id number] Common 00:00:00 00:00:00 [facility] 2020-05-20 2020-05-20 Outpatient STLMLC STLMLC [id number] Common 00:00:00 00:00:00 [facility] 2020-05-14 2020-05-14 Outpatient STLMLC STLMLC [id number] Common 00:00:00 00:00:00 [facility] 2020-04-19 2020-04-19 Outpatient STLMLC STLMLC [id number] Common 00:00:00 00:00:00 [facility] 2020-04-16 2020-04-16 Outpatient STLMLC STLMLC [id number] Common 00:00:00 00:00:00 [facility] 2019-09-29 2019-09-29 [facility] [id number] Common 13:46:00 13:46:00 t [facility] [address] [facility] 2019-09-28 2019-09-28 [facility] [id number] Common 11:00:00 11:00:[address] [place] [address] [facility] 2019-09-28 2019-09-28 [facility] [id number] Common 10:30:00 10:30:[address] [facility] 2019-07-14 2019-07-14 [facility] [id number] Common 10:31:00 10:31:[address] [facility] 2018-12-15 2018-12-15 [facility] [id number] Common 16:00:00 16:00:[address] [facility] 2018-09-14 2018-09-14 [facility] [id number] Common 15:45:00 15:45:[address] [facility] 2018-08-30 2018-08-30 [facility] [id number] Common 08:00:00 08:00:[address] [facility] 2018-06-10 2018-06-10 [facility] [id number] Common 16:46:00 16:46:[address] [facility] 2018-06-09 2018-06-09 [facility] [id number] Common 09:18:00 09:18:[address] [facility] 2018-06-07 2018-06-07 [facility] [id number] Common 15:00:00 15:00:[address] [facility] 2018-04-25 2018-04-25 [facility] [id number] Common 09:15:00 09:15:[address] [facility] 2018-03-09 2018-03-09 [facility] [id number] Common 16:00:00 16:00:[address] [facility] 2018-03-03 2018-03-03 [facility] [id number] Common 08:52:00 08:52:[address] [facility] 2017-11-30 2017-11-30 [facility] [id number] Common 15:00:00 15:00:[address] [facility] 2017-09-30 2017-09-30 [facility] [id number] Common 15:00:00 15:00:00 t Specialty/U Sp nahed Specialty rology - [facility] /Urology Clinic [facility] 2017-09-29 2017-09-29 [facility] [id number] Common 10:13:00 10:13:[address] [facility] 2017-09-28 2017-09-28 [facility] [id number] Common 14:00:00 14:00:[address] [facility] Results Test Description Test Time Test Comments Results Result Comments Source PHOSPHORUS 2018-11-11 05:54:00 Test Item Value Reference Range Interpretation Comme nts PHOSPHORUS (BEAKER) (test code = 604) 3.6 mg/dL 2.3-4.7 [id number] 05:54:00 Test Item Value Reference Range Interpretation Comments MAGNESIUM (BEAKER) (test code = 1.8 mg/dL 1.6-2.6 627) BASIC METABOLIC [id number] 05:54:00 Test Item Value Reference Range Interpretation [...] APPLICABLE FOR DIALYSIS PATIEN TS. HEPATIC FUNCTION [id number] 05:54:00 Test Item Value Reference Range Interpretation [...] 6-55 347) CBC W/PLT COUNT & AUTO [id number] 05:43:00 Test Item Value Reference Range Interpretation [...] PERCENT (BEAKER) (test code = 2801) PROTHROMBIN [id number] 05:42:00 Test Item Value Reference Range Interpretation [...] is2.5-3.5 for patients wiht mechanical heart valves.HEMOGLOBIN [id number] 07:50:00 Test Item Value Reference Range Interpretation Comments HEMOGLOBIN A1C (BEAKER) (test code = 7.1 % 4.3-6.1 H 368) [id number] 04:53:00 Test Item Value Reference Range Interpretation Comments PHOSPHORUS (BEAKER) (test code = 3.2 mg/dL 2.3-4.7 604) [id number] 04:53:00 Test Item Value Reference Range Interpretation Comments MAGNESIUM (BEAKER) (test code = 1.8 mg/dL 1.6-2.6 627) BASIC METABOLIC [id number] 04:53:00 Test Item Value Reference Range Interpretation [...] APPLICABLE FOR DIALYSIS PATIEN TS. HEPATIC FUNCTION [id number] 04:53:00 Test Item Value Reference Range Interpretation [...] code = 12 U/L 6-55 347) PROTHROMBIN [id number] 04:19:00 Test Item Value Reference Range Interpretation [...] mechanical heart valves.CBC W/PLT COUNT & AUTO [id number] 04:14:00 Test Item Value Reference Range Interpretation [...] 0-1 PERCENT (BEAKER) (test code = 2801) [id number] 14:44:00 Test Item Value Reference Range Interpretation Comments LIPASE (BEAKER) (test code = 749) 972 U/L 8-78 H [id number] 13:06:00 Test Item Value Reference Range Interpretation Comments PHOSPHORUS (BEAKER) (test code = 3.3 mg/dL 2.3-4.7 604) [id number] 13:06:00 Test Item Value Reference Range Interpretation Comments MAGNESIUM (BEAKER) (test code = 2.0 mg/dL 1.6-2.6 627) BASIC METABOLIC [id number] 13:06:00 Test Item Value Reference Range Interpretation [...] NOT APPLICABLE FOR DIALYSIS PATIEN TS. LIPID [id number] 13:06:00 Test Item Value Reference Range Interpretation [...] 130-159 High 160-189 Very High >=190HEPATIC FUNCTION [id number] 13:06:00 Test Item Value Reference Range Interpretation [...] 6-55 347) CBC W/PLT COUNT & AUTO [id number] 12:46:00 Test Item Value Reference Range Interpretation [...] PERCENT (BEAKER) (test code = 2801) PROTHROMBIN [id number] 12:39:00 Test Item Value Reference Range Interpretation [...]
== END 2021-09-18 15:45 | disposition home or self-care (01) ==
LOC: OR 08:41 → 2ND 17:08 → UNDODISOB 18:11
PROVIDERS: ADMIT Urology; ATTEND Urology
PROC: 0T9B70Z Drainage of Bladder with Drainage Device, Via Natural or Artificial Opening (ICD-10-PCS; 2021-09-16)
PROC: 0TBB8ZX Excision of Bladder, Via Natural or Artificial Opening Endoscopic, Diagnostic (ICD-10-PCS; principal; 2021-09-16 10:15)
DX: N32.9 Bladder disorder, unspecified (principal); N39.41 Urge incontinence; N31.9 Neuromuscular dysfunction of bladder, unspecified; N30.80 Other cystitis without hematuria; N76.0 Acute vaginitis; R11.0 Nausea; R30.0 Dysuria; R10.2 Pelvic and perineal pain; G89.4 Chronic pain syndrome; N32.81 Overactive bladder; N81.6 Rectocele; E11.65 Type 2 diabetes mellitus with hyperglycemia; K86.1 Other chronic pancreatitis; I10 Essential (primary) hypertension; I25.10 Atherosclerotic heart disease of native coronary artery without angina pectoris; K21.9 Gastro-esophageal reflux disease without esophagitis; K44.9 Diaphragmatic hernia without obstruction or gangrene; K76.0 Fatty (change of) liver, not elsewhere classified; E78.5 Hyperlipidemia, unspecified; F41.8 Other specified anxiety disorders; F98.8 Other specified behavioral and emotional disorders with onset usually occurring in childhood and adolescence; E66.9 Obesity, unspecified; Z68.30 Body mass index [BMI] 30.0-30.9, adult; Z20.822 Contact with and (suspected) exposure to COVID-19; Z87.440 Personal history of urinary (tract) infections; Z87.442 Personal history of urinary calculi; Z87.891 Personal history of nicotine dependence; Z79.84 Long term (current) use of oral hypoglycemic drugs; Z79.899 Other long term (current) drug therapy; Z90.710 Acquired absence of both cervix and uterus; Z90.49 Acquired absence of other specified parts of digestive tract; Z83.3 Family history of diabetes mellitus; Z82.49 Family history of ischemic heart disease and other diseases of the circulatory system; Z80.9 Family history of malignant neoplasm, unspecified
CPT/HCPCS: 36415; 71046; 80048; 82150; 82947; 83036; 83690; 85025; 87086; 87088; 87811; 88305; G0378; G0379; J0690; J1100; J1170; J1815; J2250; J2405; J2704; J3010; J3301; J7120; Q9968

== ENCOUNTER 2021-09-30 20:24 | Inpatient (IN) | payer MEDICARE ==
--- OUTSIDE RECORDS SUMMARY | 2021-09-30 20:28 | XMS REPORT | Continuity of Care Document ---
:1945 Author Organization [facility] t Address [address] [place] [address] Care Team Providers Name Role Phone Angelo Powell DO Primary Care Physician Koko Powell Attending Clinician Unavailable LAZARUS Attending Clinician Unavailable LAZARUS Admitting Clinician Unavailable Payers Payer Name Policy Type Policy Number Effective Date Expiration Date S wilfredo MEDICARE A B [id number] 2012 00:00:00 [facility] [id number] (MEDICARE 00:00:00 REPLACEMENT HMO) Problems Condition Condition Condition Status Onset Resolution Last Treating Co mments Source Name Details Category Date Date Treatment Clinician Date Essential Essential Disease Active [facility] hypertensi 11-09 Mansi kes on on 00:00: Medical 00 Center 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 11-09 Luke s 00:00: Medical 00 [place] Acute Acute Disease Active [facility] pancreatit pancreatit 11-09 Mansi kes is is 00:00: Medical 00 Center Allergies, Adverse Reactions, Alerts Allergy Allergy Status Severity Reaction(s) Onset Inactive Treating Comm ents Source Name Type Date Date Clinician NO KNOWN Allergy Active [facility] Social History Social Habit Start Date Stop Date Quantity Comments Source History SDOH [facility] Alcohol Std Drinks Medica l Center History [facility] Alcohol Binge Medical Carl [facility] Sex Assigned At [facility] Tobacco use and 2018-11-09 2018-11-[address] [facility] St Nazario kes exposure 00:00:00 00:00:00 [facility] Alcohol intake 2018-11-09 2018-11-[address] [facility] [place] [facility] 00:00:00 00:00:00 non-drinker of Medical Ce nter alcohol (finding) History SDOH 2018-11-09 2018-11-[address] [facility] Alcohol Frequency 00:00:00 00:00:00 [facility] Smoking Status Start Date Stop Date Source Former smoker 2018-11-09 00:00:00 2018-11-09 00:00:00 [facility] Medications Ordered Filled Start Stop Current Ordering Indication Dosage Frequency Signature Comments Components Source Medication Medication Date Date Medication? Clinician (SIG) Name Name pantoprazol Yes 40mg Q.5D Take [address] 9-06 by mouth 2 [facility] (PROTONIX) 17:24: (two) Medica l 40 MG 08 times Center tablet daily . lipase-prot 2018- Yes [id number]{ Take [facility] 9-06 lipase} 36,000 [...] Center tablet daily . lipase-prot 2019-0 Yes [id number]{ Take [facility] 9-06 lipase} 36,000 [...] Center tablet daily . lipase-prot 2019-0 Yes [id number]{ Take [facility] 9-06 lipase} 36,000 [...] 00:00 n to - [facility] :00 affected [facility] Procedures This patient has no known [...] [facility] Test 00:00:00 (Season Ended) [code = [facility] Center INFLUENZA VACCINE (Season Ended)] Future [...] 00:00:00 (1 of 1 - Medical Center [id number] PCV13) [code = PNEUMOCOCCAL 65+ YRS (1 of 1 - [id number]_Eawfwhz PCV13)] Future Scheduled 2012-12-28 PNEUMOCOCCAL 65+ YRS [facility] Test 00:00:00 (1 of 1 - Medical Center [id number] PCV13) [code = PNEUMOCOCCAL 65+ YRS (1 of 1 - TPVF82_Udxeweg PCV13)] Future Scheduled 2012-12-28 PNEUMOCOCCAL 65+ Y[facility] Test 00:00:00 (1 of 1 - [facility] Center [id number]_Ozvtssr PCV13) [code = PNEUMOCOCCAL 65+ YRS (1 of 1 - SDWD91_Zhdwqfh PCV13)] Future Scheduled 1997-12-28 SHINGLES VACCINES (1 [...] Medica l Center breast (procedure) [code = 656605592] Future Scheduled [address] [facility] [facility] Test 00:00:00 malignant neoplasm of Medica l Center colon (procedure) [code = 342881527] Future Scheduled [address] [facility] [facility] [facility] Test 00:00:00 malignant neoplasm of Medica l Center breast (procedure) [code = 741865571] Future Scheduled [address] [facility] [facility] Test 00:00:00 malignant neoplasm of Medica l Center colon (procedure) [code = 821494662] Future Scheduled [address] [facility] [facility] Test 00:00:00 malignant neoplasm of Medica l Center breast (procedure) [code = 039563921] Future Scheduled [address] [facility] [facility] Test 00:00:00 malignant neoplasm of Medica [facility] colon (procedure) [code = 224411208] Encounters Start End Encounter Admission Attending Care Care Encounter Source Date/Time Date/Time Type Type Clinicians Facility Department ID 2021-07-31 Outpatient Powell, STLMLC STLMLC [id number] Common 09:46:01 Dmitry [facility] 2021-04-02 Outpatient Powell, STLMLC STLMLC [id number] Common 14:02:15 Dmitry 13213 [facility] 2021-04-02 Outpatient Powell, STLMLC STLMLC [id number] Common 14:01:19 Dmitry 20459 [facility] 2021-04-02 Outpatient Powell, STLMLC STLMLC [id number] Common 13:38:40 Dmitry 18505 [facility] 2021-04-02 Outpatient Powell, STLMLC STLMLC [id number] Common 13:36:48 Dmitry 59755 [facility] 2021-04-02 Outpatient Powell, STLMLC STLMLC [id number] Common 13:28:35 Dmitry 25920 [facility] 2021-04-02 Outpatient Powell, STLMLC STLMLC [id number] Common 13:28:20 Dmitry 03176 [facility] 2021-04-02 Outpatient Powell, STLMLC STLMLC [id number] Common 13:04:41 Dmitry 33780 [facility] 2021-04-02 Outpatient Powell, STLMLC STLMLC [id number] Common 12:55:20 Dmitry 09702 [facility] 2021-04-02 Outpatient Powell, STLMLC STLMLC [id number] Common 12:37:32 Dmitry 68434 [facility] 2021-04-02 Outpatient Powell, STLMLC STLMLC [id number] Common 11:40:56 Dmitry 09853 [facility] 2021-04-02 Outpatient Powell, STLMLC STLMLC [id number] Common 11:32:24 Dmitry 03648 [facility] 2021-04-02 Outpatient Powell, STLMLC STLMLC [id number] Common 10:59:26 Dmitry 78791 [facility] 2021-04-02 Outpatient Powell, STLMLC STLMLC [id number] Common 10:59:05 Dmitry 84377 [facility] 2020-12-15 Inpatient UR [facility] [id number] [facility] 01:17:39 [facility] 2021-09-23 2021-09-23 ambulatory STLMLC STLMLC [id number] Common 00:00:00 00:00:00 [facility] 2021-09-22 2021-09-22 ambulatory STLMLC STLMLC [id number] Common 00:00:00 00:00:00 [facility] 2021-09-19 2021-09-19 Outpatient DMG DMG [id number] [facility] 03:36:00 03:36:00 0715 [facility] 2021-08-15 2021-08-15 ambulatory STLMLC STLMLC [id number] Common 00:00:00 00:00:00 [facility] 2021-08-12 2021-08-12 ambulatory STLMLC STLMLC [id number] Common 00:00:00 00:00:00 [facility] 2021-08-01 2021-08-01 ambulatory STLMLC STLMLC [id number] Common 00:00:00 00:00:00 [facility] 2021-08-01 2021-08-01 ambulatory STLMLC STLMLC [id number] Common 00:00:00 00:00:00 [facility] 2021-07-31 2021-07-31 ambulatory STLMLC STLMLC [id number] Common 00:00:00 00:00:00 [facility] 2021-07-31 2021-07-31 ambulatory STLMLC STLMLC [id number] Common 00:00:00 00:00:00 [facility] 2021-07-30 2021-07-30 ambulatory STLMLC STLMLC [id number] Common 00:00:00 00:00:00 [facility] 2021-07-25 2021-07-25 ambulatory STLMLC STLMLC [id number] Common 00:00:00 00:00:00 [facility] 2021-07-22 2021-07-22 ambulatory STLMLC STLMLC [id number] Common 00:00:00 00:00:00 [facility] 2021-07-14 2021-07-14 ambulatory STLMLC STLMLC [id number] Common 00:00:00 00:00:00 [facility] 2021-07-12 2021-07-12 ambulatory STLMLC STLMLC [id number] Common 00:00:00 00:00:00 [facility] 2021-07-05 2021-07-05 Outpatient DMG [facility] [id number] [facility] 09:00:00 09:00:00 0430 [facility] l Group 2021-05-20 2021-05-20 Outpatient DMG [facility] [id number] [facility] 09:01:00 09:01:00 0315 [facility] l Group 2021-05-14 2021-05-14 ambulatory STLMLC STLMLC [id number] Common 00:00:00 00:00:00 [facility] 2021-05-07 2021-05-07 ambulatory STLMLC STLMLC [id number] Common 00:00:00 00:00:00 [facility] 2021-05-07 2021-05-07 ambulatory STLMLC STLMLC [id number] Common 00:00:00 00:00:00 [facility] 2021-05-06 2021-05-06 ambulatory STLMLC STLMLC [id number] Common 00:00:00 00:00:00 [facility] 2021-04-21 2021-04-21 ambulatory STLMLC STLMLC [id number] Common 00:00:00 00:00:00 [facility] 2021-04-21 2021-04-21 ambulatory STLMLC STLMLC [id number] Common 00:00:00 00:00:00 [facility] 2021-04-18 2021-04-18 ambulatory STLMLC STLMLC [id number] Common 00:00:00 00:00:00 [facility] 2021-04-16 2021-04-16 ambulatory STLMLC STLMLC [id number] Common 00:00:00 00:00:00 [facility] 2021-04-14 2021-04-14 ambulatory STLMLC STLMLC [id number] Common 00:00:00 00:00:00 [facility] 2021-04-10 2021-04-10 ambulatory STLMLC STLMLC [id number] Common 00:00:00 00:00:00 [facility] 2021-04-03 2021-04-03 ambulatory STLMLC STLMLC [id number] Common 00:00:00 00:00:00 [facility] 2021-03-10 2021-03-10 ambulatory STLMLC STLMLC [id number] Common 00:00:00 00:00:00 [facility] 2021-03-06 2021-03-06 ambulatory STLMLC STLMLC [id number] Common 00:00:00 00:00:00 [facility] 2021-03-05 2021-03-05 ambulatory STLMLC STLMLC [id number] Common 00:00:00 00:00:00 [facility] 2021-01-27 2021-01-27 ambulatory STLMLC STLMLC [id number] Common 00:00:00 00:00:00 [facility] 2020-12-25 2020-12-25 Outpatient STLMLC STLMLC [id number] Common 00:00:00 00:00:00 [facility] 2020-12-20 2020-12-20 ambulatory STLMLC STLMLC [id number] Common 00:00:00 00:00:00 [facility] 2020-12-02 2020-12-02 Outpatient STLMLC STLMLC [id number] Common 00:00:00 00:00:00 [facility] 2020-12-02 2020-12-02 Outpatient STLMLC STLMLC [id number] Common 00:00:00 00:00:00 [facility] 2020-12-02 2020-12-02 Outpatient STLMLC STLMLC [id number] Common 00:00:00 00:00:00 [facility] 2020-10-16 2020-10-16 Outpatient STLMLC STLMLC [id number] Common 00:00:00 00:00:00 [facility] 2020-10-16 2020-10-16 Outpatient STLMLC STLMLC [id number] Common 00:00:00 00:00:00 [facility] 2020-10-10 2020-10-10 Outpatient STLMLC STLMLC [id number] Common 00:00:00 00:00:00 [facility] 2020-09-25 2020-09-25 Outpatient STLMLC STLMLC [id number] Common 00:00:00 00:00:00 [facility] 2020-09-20 2020-09-20 Outpatient STLMLC STLMLC [id number] Common 00:00:00 00:00:00 [facility] 2020-09-04 2020-09-04 Outpatient STLMLC STLMLC [id number] Common 00:00:00 00:00:00 [facility] 2020-09-04 2020-09-04 Outpatient STLMLC STLMLC [id number] Common 00:00:00 00:00:00 [facility] 2020-09-04 2020-09-04 Outpatient STLMLC STLMLC [id number] Common 00:00:00 00:00:00 [facility] 2020-09-03 2020-09-03 Outpatient STLMLC STLMLC [id number] Common 00:00:00 00:00:00 [facility] 2020-08-27 2020-08-27 Outpatient STLMLC STLMLC [id number] Common 00:00:00 00:00:00 [facility] 2020-08-15 2020-08-15 Outpatient STLMLC STLMLC [id number] Common 00:00:00 00:00:00 [facility] 2020-08-14 2020-08-14 Outpatient STLMLC STLMLC [id number] Common 00:00:00 00:00:00 [facility] 2020-08-01 2020-08-01 Outpatient STLMLC STLMLC [id number] Common 00:00:00 00:00:00 [facility] 2020-07-24 2020-07-24 Outpatient STLMLC STLMLC [id number] Common 00:00:00 00:00:00 [facility] 2020-07-16 2020-07-16 Outpatient STLMLC STLMLC [id number] Common 00:00:00 00:00:00 [facility] 2020-07-16 2020-07-16 Outpatient STLMLC STLMLC [id number] Common 00:00:00 00:00:00 [facility] 2020-07-10 2020-07-10 Outpatient STLMLC STLMLC [id number] Common 00:00:00 00:00:00 [facility] 2020-07-05 2020-07-05 Outpatient STLMLC STLMLC [id number] Common 00:00:00 00:00:00 [facility] 2020-06-27 2020-06-27 Outpatient STLMLC STLMLC [id number] Common 00:00:00 00:00:00 [facility] 2020-06-24 2020-06-24 Outpatient STLMLC STLMLC [id number] Common 00:00:00 00:00:00 [facility] 2020-06-19 2020-06-19 Outpatient STLMLC STLMLC [id number] Common 00:00:00 00:00:00 [facility] 2020-05-20 2020-05-20 Outpatient STLMLC STLMLC [id number] Common 00:00:00 00:00:00 [facility] 2020-05-14 2020-05-14 Outpatient STLMLC STLMLC [id number] Common 00:00:00 00:00:00 [facility] 2020-04-19 2020-04-19 Outpatient STLMLC STLMLC [id number] Common 00:00:00 00:00:00 [facility] 2020-04-16 2020-04-16 Outpatient STLMLC STLMLC [id number] Common 00:00:00 00:00:00 [facility] 2019-09-29 2019-09-29 [facility] [id number] Common 13:46:00 13:46:[address] [facility] [address] [facility] 2019-09-28 2019-09-28 [facility] [id number] Common 11:00:00 11:00:[address] [facility] 2019-09-28 2019-09-28 [facility] [id number] Common 10:30:00 10:30:[address] [facility] 2019-07-14 2019-07-14 [facility] [id number] Common 10:31:00 10:31:[address] [facility] 2018-12-15 2018-12-15 [facility] [id number] Common 16:00:00 16:00:[address] [facility] 2018-09-14 2018-09-14 [facility] [id number] Common 15:45:00 15:45:[address] [facility] 2018-08-30 2018-08-30 [facility] [id number] Common 08:00:00 08:00:[address] [facility] 2018-06-10 2018-06-10 [facility] [id number] Common 16:46:00 16:46:[address] [facility] 2018-06-09 2018-06-09 [facility] [id number] Common 09:18:00 09:18:00 [address] [facility] [address] [facility] 2018-06-07 2018-06-07 [facility] [id number] Common 15:00:00 15:00:[address] [facility] 2018-04-25 2018-04-25 [facility] [id number] Common 09:15:00 09:15:[address] [facility] 2018-03-09 2018-03-09 [facility] [id number] Common 16:00:00 16:00:[address] [facility] 2018-03-03 2018-03-03 [facility] [id number] Common 08:52:00 08:52:[address] [facility] 2017-11-30 2017-11-30 [facility] [id number] Common 15:00:00 15:00:[address] [facility] 2017-09-30 2017-09-30 [facility] [id number] Common 15:00:00 15:00:00 t Specialty/U Sp nahed Specialty rology - [facility] /[facility] 2017-09-29 2017-09-29 [facility] [id number] Common 10:13:00 10:13:[address] [facility] 2017-09-28 2017-09-28 [facility] [id number] Common 14:00:00 14:00:[address] [facility] Results Test Description Test Time Test Comments Results Result Comments Source PHOSPHORUS 2018-11-11 05:54:00 Test Item Value Reference Range Interpretation Comme nts PHOSPHORUS (BEAKER) (test code = 604) 3.6 mg/dL 2.3-4.7 [id number] 05:54:00 Test Item Value Reference Range Interpretation Comments MAGNESIUM (BEAKER) (test code = 1.8 mg/dL 1.6-2.6 627) BASIC METABOLIC [id number] 05:54:00 Test Item Value Reference Range Interpretation [...] APPLICABLE FOR DIALYSIS PATIEN TS. HEPATIC FUNCTION [id number] 05:54:00 Test Item Value Reference Range Interpretation [...] 6-55 347) CBC W/PLT COUNT & AUTO [id number] 05:43:00 Test Item Value Reference Range Interpretation [...] PERCENT (BEAKER) (test code = 2801) PROTHROMBIN [id number] 05:42:00 Test Item Value Reference Range Interpretation [...] is2.5-3.5 for patients wiht mechanical heart valves.HEMOGLOBIN [id number] 07:50:00 Test Item Value Reference Range Interpretation Comments HEMOGLOBIN A1C (BEAKER) (test code = 7.1 % 4.3-6.1 H 368) [id number] 04:53:00 Test Item Value Reference Range Interpretation Comments PHOSPHORUS (BEAKER) (test code = 3.2 mg/dL 2.3-4.7 604) [id number] 04:53:00 Test Item Value Reference Range Interpretation Comments MAGNESIUM (BEAKER) (test code = 1.8 mg/dL 1.6-2.6 627) BASIC METABOLIC [id number] 04:53:00 Test Item Value Reference Range Interpretation [...] APPLICABLE FOR DIALYSIS PATIEN TS. HEPATIC FUNCTION [id number] 04:53:00 Test Item Value Reference Range Interpretation [...] code = 12 U/L 6-55 347) PROTHROMBIN [id number] 04:19:00 Test Item Value Reference Range Interpretation [...] mechanical heart valves.CBC W/PLT COUNT & AUTO [id number] 04:14:00 Test Item Value Reference Range Interpretation [...] 0-1 PERCENT (BEAKER) (test code = 2801) [id number] 14:44:00 Test Item Value Reference Range Interpretation Comments LIPASE (BEAKER) (test code = 749) 972 U/L 8-78 H [id number] 13:06:00 Test Item Value Reference Range Interpretation Comments PHOSPHORUS (BEAKER) (test code = 3.3 mg/dL 2.3-4.7 604) [id number] 13:06:00 Test Item Value Reference Range Interpretation Comments MAGNESIUM (BEAKER) (test code = 2.0 mg/dL 1.6-2.6 627) BASIC METABOLIC [id number] 13:06:00 Test Item Value Reference Range Interpretation [...] NOT APPLICABLE FOR DIALYSIS PATIEN TS. LIPID [id number] 13:06:00 Test Item Value Reference Range Interpretation [...] 130-159 High 160-189 Very High >=190HEPATIC FUNCTION [id number] 13:06:00 Test Item Value Reference Range Interpretation [...] 6-55 347) CBC W/PLT COUNT & AUTO [id number] 12:46:00 Test Item Value Reference Range Interpretation [...] PERCENT (BEAKER) (test code = 2801) PROTHROMBIN [id number] 12:39:00 Test Item Value Reference Range Interpretation [...]
[2021-09-30 23:02] LABS: Absolute Lymphocytes (CBC) 1.9 K/uL (0.7-4.9); Hematocrit 37.4 % (36.0-45.0); Lymphocytes % 19.2 % (15.3-44.8); MCV 74.2 fL (80-100); MPV 7.7 fL (7.6-11.3); RBC Red Blood Cell Count 5.05 M/uL (3.86-4.86)
[2021-09-30 23:09] LABS: Urine Blood Trace-intact (Negative); Urine Glucose 2+ (Negative); Urine Protein Trace (Negative); Urine Specific Gravity 1.015 (1.005-1.030); Urine pH 6.5 (5.0-7.0)
[2021-09-30] MEDS ORDERED: NA CHLORIDE 0.9% 500 ML ONE (23:46)
[2021-09-30] MEDS ORDERED: FAMOTIDINE 20 MG/2 ML VIAL IV ONE (23:56)
[2021-10-01 00:23] LABS: Albumin 3.4 g/dL (3.4-5.0); Bilirubin Total 0.3 mg/dL (0.2-1.0); Potassium 3.8 mmol/L (3.5-5.1); Protein, Total 7.9 g/dL (6.4-8.2)
--- NOTE | 2021-10-01 02:51 | P.HP ---
Certification for Inpatient Patient admitted to: Inpatient With expected LOS: <2 Midnights Patient will require the following post-hospital care: None Practitioner: I am a practitioner with admitting privileges, knowledge of patient current condition, hospital course, and medical plan of care. Services: Services provided to patient in accordance with Admission requirements found in Title 42 Section 412.3 of the Code of Federal Regulations Patient History Date of Service: 10/01/21 Reason for admission: Pancreatitis History of Present Illness: Patient is a 75-year-old female with chronic pancreatitis and HTN who presented to the ED with complaints of diffuse abdominal pain associated with nausea that began 2 hours [employer]. She reports the pain is similar to her previous pancreatitis flare ups. CT revealed mild pancreatitis. Lipase WNL (similar in past). She was given fluids, morphine, and zofran. VSS. Patient is admitted for further evaluation and treatment. Allergies No Known Allergies Allergy (Verified 09/16/21 09:15) Home Medications: Pantoprazole [Protonix Tab*] 40 mg PO DAILY 08/16/20 Hydrocodone 7.5/APAP 325 [[place] 7.5/325 mg*] 1 tab PO Q6H PRN #30 tab 07/28/21 Simvastatin 1 tab PO DAILY 09/12/21 Sucralfate [Carafate*] 1 tab PO DAILY 09/12/21 Fluconazole 1 tab PO DAILY 09/16/21 Nystatin/Triamcin [Nystatin-Triamcinolone Cream] 30 gm TP BID 42 Days #1 cream..g. 09/16/21 Glimepiride [Amaryl] 2 mg PO DAILY #30 tablet 09/17/21 Metformin HCl [Glucophage*] 500 mg PO BIDWM #60 tab 09/17/21 Phenazopyrididine [Pyridium*] 100 mg PO TID PRN #30 tab 09/17/21 - Past Medical/Surgical History Diabetic: Yes -: kidney stones -: Gastroesophageal reflux disease w Hiatal hernia -: Esophageal spasm -: Attention deficit disorder -: Hypertension -: Depression with anxiety -: Hyperlipidemia -: Chronic pain -: Fatty liver, nonalcoholic -: Urinary incontinence/Nephrolithiasis -: Recurrent UTI -: Hysterectomy -: Cholecystectomy -: Appendectomy -: back surgery -: knee surgery -: foot surgery -: EGD/ERCP -: Cardiac catheterization, no stent Psychosocial/ Personal History: Patient lives at home - Family History Father -: Diabetes, Cancer Notes: Type 2 Mother -: Hypertension, Diabetes, Other (see notes) Notes: Hypoglycemia Sister Notes: epilepsy - Social History Smoking Status: Never smoker Alcohol use: No CD- Drugs: Yes Caffeine use: No Place of Residence: Home Review of Systems Gastrointestinal: Nausea, Abdominal Pain Physical Examination - Physical Exam General: Alert, In no apparent distress HEENT: Atraumatic, PERRLA, EOMI, Sclerae nonicteric Neck: Supple, 2+ carotid pulse no bruit, No LAD, Without JVD or thyroid abnormality Respiratory: Clear to auscultation bilaterally, Normal air movement Cardiovascular: Regular rate/rhythm, Normal S1 S2 Gastrointestinal: Normal bowel sounds, Tenderness Musculoskeletal: No tenderness Integumentary: No rashes Neurological: Normal speech, Normal strength at 5/5 x4 extr, Normal tone, Normal affect - Studies Laboratory Data (last 24 hrs) 09/30/21 23:25: Sodium 135 L, Potassium 3.8, BUN 13, Creatinine 0.86, Glucose 245 H, Total Bilirubin 0.3, AST 12 L, ALT 20, Alkaline Phosphatase 136 H, Lipase 97 09/30/21 22:45: WBC 9.9, Hgb 12.2 D, Hct 37.4 D, Plt Count 300 D Assessment and Plan - Problems (Diagnosis) (1) Acute on chronic pancreatitis Current Visit: Yes Status: Acute (2) HTN (hypertension) Current Visit: Yes Status: Chronic Qualifiers: Hypertension type: primary hypertension Qualified Code(s): I10 - Essential (primary) hypertension (3) Diabetes mellitus type 2 in obese Current Visit: Yes Status: Chronic - Plan -continue IV fluids and IV pain control -Clear liquid diet, advance as tolerated -repeat lipase and amylase tomorrow. lipid panel and A1C pending -blood pressure and glucose control -reconcile and continue home medications -Monitor and replete electrolytes per protocol -DVT prophylaxis -Full code Discharge Plan: Home Plan to discharge in: 48 Hours - Advance Directives Does patient have a Living Will: Yes Does patient have a Durable POA for Healthcare: Yes - Code Status/Comfort Care Code Status Assessed: Yes (Full) Critical Care: No Time Spent Managing Pts Care (In Minutes): 50
[2021-10-01] MEDS: NA CHLORIDE 0.9% 1,000 ML IV SCH ×3 (03:03→20:06)
[2021-10-01] MEDS ORDERED: D50W 25 GM/50 ML SYRINGE IV PRN (03:03)
[2021-10-01] MEDS ORDERED: GLUCAGON 1 MG/VIAL IM PRN (03:03)
[2021-10-01] MEDS ORDERED: ACETAMINOPHEN 500 MG TAB PO PRN (03:03)
[2021-10-01] MEDS ORDERED: D10W 125 ML IV PRN (03:09)
[2021-10-01] MEDS: ONDANSETRON 4 MG/2 ML VIAL IV PRN ×3 (04:28→22:11)
[2021-10-01] MEDS ORDERED: ONDANSETRON 4 MG/2 ML VIAL ONE ×2 (04:32→09:47)
[2021-10-01 05:07] LABS: SARS-CoV-2 Antigen Rapid Res Negative (Negative)
[2021-10-01 05:30] VITALS: BMI 32.1
--- NOTE | 2021-10-01 05:55 | ER ---
Nurse's Notes [facility] Name: Isadora Bettencourt Age: 75 yrs Sex: Female : 1945 Arrival Date: 09/30/2021 Time: 20:27 Bed 19 Private MD: Diagnosis: Upper abdominal pain, unspecified;Biliary acute pancreatitis Presentation: 09/30 20:40 Chief complaint: Diffuse abdominal pain and nausea x 2 hours. Last normal BM was this morning. Hx of pancreatitis, feels similar to last flare. Coronavirus screen: At this time, the client does not indicate any symptoms associated with coronavirus-19. Ebola Screen: No symptoms or risks identified at this time. Initial Sepsis Screen: Does the patient meet any 2 criteria? No. Patient's initial sepsis screen is negative. Does the patient have a suspected source of infection? No. Patient's initial sepsis screen is negative. Risk Assessment: Do you want to hurt yourself or someone else? Patient reports no desire to harm self or others. Onset of symptoms was September 30, 2021. 20:40 Method Of Arrival: Wheelchair 20:40 Acuity: FRANDY 3 hb Triage Assessment: 20:42 General: Appears in no apparent distress. uncomfortable, Behavior is calm, cooperative. hb Pain: Pain currently is 8 out of 10 on a pain scale. Neuro: Level of Consciousness is awake, alert, obeys commands, Oriented to person, place, time, situation. Cardiovascular: Patient's skin is warm and dry. Respiratory: Respiratory effort is even, unlabored, Respiratory pattern is regular, symmetrical. GI: Reports lower abdominal pain, upper abdominal pain. Historical: - Allergies: 20:42 No Known Allergies; hb - Home Meds: 20:42 pantoprazole 40 mg Oral TbEC 1 tab once daily [Active]; Vesicare 10 mg Oral tab 1 tab hb once daily [Active]; - PMHx: 20:42 Anxiety; Hypertension; Kidney stones; Pancreatitis; hb - Immunization history:: Adult Immunizations up to date. - Social history:: Smoking status: Patient denies any tobacco usage or history of. Screenin:30 Abuse screen: Denies threats or abuse. Denies injuries from another. Nutritional kd3 screening: No deficits noted. Tuberculosis screening: No symptoms or risk factors identified. Fall Risk IV access (20 points). Assessment: 23:30 General: Appears in no apparent distress. Behavior is calm, cooperative. Neuro: Level kd3 of Consciousness is awake, alert, obeys commands, Oriented to person, place, time, situation. Respiratory: Airway is patent Trachea midline Respiratory effort is even, unlabored, Respiratory pattern is regular, symmetrical. GI: Bowel sounds present X 4 quads. Abd is soft. 10/01 02:43 Reassessment: No changes from previously documented assessment. Patient and/or family ll3 updated on plan of care and expected duration. Pain level reassessed. Patient is alert, oriented x 3, equal unlabored respirations, skin warm/dry/pink. 04:00 Reassessment: No changes from previously documented assessment. Patient and/or family ll3 updated on plan of care and expected duration. Pain level reassessed. Patient is alert, oriented x 3, equal unlabored respirations, skin warm/dry/pink. Vital Signs: 09/30 20:40 BP 160 / 83; Pulse 98; Resp 18; Temp 99(TE); Pulse Ox 98% on R/A; Weight 77.11 kg; hb Height 5 ft. 1 in. (154.94 cm); Pain 8/10; 23:35 BP 156 / 71; Pulse 96; Resp 20; Pulse Ox 100% on R/A; 1 10/01 01:25 BP 146 / 73; Pulse 88; Resp 20; Pulse Ox 98% on R/A; bh1 04:00 BP 177 / 95; Pulse 81; Resp 20; Pulse Ox 98% on R/A; ll3 09/30 20:40 Body Mass Index 32.12 (77.11 kg, 154.94 cm) hb ED Course: 09/30 20:27 Patient arrived in ED. ja2 20:42 Triage completed. hb 20:42 Arm band placed on. hb 22:45 Inserted saline lock: 22 gauge in right forearm, using aseptic technique. Blood hb collected. 23:16 Bell Burns, SHARMAINE is Primary Nurse. kd3 23:30 Patient has correct armband on for positive identification. kd3 23:30 No provider procedures requiring assistance completed. kd3 23:31 Hollis Paz MD is Attending Physician. kdr 23:40 No apparent distress. Resting quietly. Awaiting lab results, Awaiting radiology [facility] 10/01 00:24 No apparent distress. Resting quietly. Awaiting disposition. [facility] 01:10 Abdomen In Process Unspecified. EDMS 01:25 No apparent distress. Resting quietly. Awaiting lab results, Awaiting radiology results[facility] 02:41 Report given to micheal lozada. [facility] 05:12 Kale Mosher is Hospitalizing Provider. kdr Administered Medications: 09/30 23:41 Drug: NS 0.9% 500 ml Route: IV; Rate: bolus; Site: right forearm; 1 10/01 11:37 Follow up: IV Status: Completed infusion; IV Intake: 500ml jg9 09/30 23:51 Drug: Pepcid (famotidine) 20 mg Route: IVP; Site: right forearm; [facility] 23:51 Follow up: Response: No adverse reaction [facility] Medication: 23:30 VIS not applicable for this client. kd3 Intake: 10/01 11:37 IV: 500ml; Total: 500ml. j9 Outcome: 05:13 Decision to Hospitalize by Provider. kdr 12:08 Patient left the ED. iw Signatures: Dispatcher [employer] EDMS Hollis Paz MD MD kdr Maddy Lopez RN RN iw Radha Garcia RN RN Dottie Boone [place], RN RN [email or web address] Bell Burns RN RN kd3 Padmini Cantu RN RN jg9 Jayda Glover RN RN 1 Corrections: (The following items were deleted from the chart) 09/30 22:47 22:47 Inserted saline lock: 22 gauge in right forearm, using aseptic technique. Blood hb collected. hb
--- NOTE | 2021-10-01 05:55 | EDPHYS ---
Physician Documentation [facility] Name: Isadora Bettencourt Age: 75 yrs Sex: Female : 1945 Arrival Date: 09/30/2021 Time: : Bed 19 Private MD: ED Physician Hollis Paz HPI: 10/01 02:18 This 75 yrs old Female presents to ER via Wheelchair with complaints of Abdominal Pain. kdr 02:18 The patient presents with abdominal pain in the upper abdomen. Onset: The kdr symptoms/episode began/occurred suddenly, 2 hour(s) ago. The symptoms do not radiate. Associated signs and symptoms: Pertinent positives: nausea and vomiting, dyspepsia. The symptoms are described as achy, burning, sharp, vague. Modifying factors: The symptoms are alleviated by nothing, the symptoms are aggravated by drinking, food. Severity of pain: At its worst the pain was mild moderate just prior to arrival, in the emergency department the pain is unchanged. The patient has not experienced similar symptoms in the past. The patient has not recently seen a physician. Historical: - Allergies: 09/30 20:42 No Known Allergies; hb - Home Meds: 20:42 pantoprazole 40 mg Oral TbEC 1 tab once daily [Active]; Vesicare 10 mg Oral tab 1 tab hb once daily [Active]; - PMHx: 20:42 Anxiety; Hypertension; Kidney stones; Pancreatitis; hb - Immunization history:: Adult Immunizations up to date. - Social history:: Smoking status: Patient denies any tobacco usage or history of. ROS: 10/01 02:18 Constitutional: Negative for fever, chills, and weight loss, Eyes: Negative for injury, kdr pain, redness, and discharge, Neck: Negative for injury, pain, and swelling, Cardiovascular: Negative for chest pain, palpitations, and edema, Respiratory: Negative for shortness of breath, cough, wheezing, and pleuritic chest pain, Back: Negative for injury and pain, : Negative for injury, bleeding, discharge, and swelling, MS/Extremity: Negative for injury and deformity, Skin: Negative for injury, rash, and discoloration, Neuro: Negative for headache, weakness, numbness, tingling, and seizure activity. Psych: Negative for depression, anxiety, suicide ideation, homicidal ideation, and hallucinations, Allergy/Immunology: Negative for hives, rash, and allergies, Endocrine: Negative for neck swelling, polydipsia, polyuria, polyphagia, and marked weight changes, Hematologic/Lymphatic: Negative for swollen nodes, abnormal bleeding, and unusual bruising. Abdomen/GI: Positive for abdominal pain, nausea and vomiting, Negative for constipation, abdominal cramps, abdominal distension, anorexia, dysphagia, hematemesis, black/tarry stool, rectal pain, rectal bleeding, bowel incontinence. Exam: 02:18 Constitutional: This is a well developed, well nourished patient who is awake, alert, kdr and in no acute distress. Head/Face: Normocephalic, atraumatic. Eyes: Pupils equal round and reactive to light, extra-ocular motions intact. Lids and lashes normal. Conjunctiva and sclera are non-icteric and not injected. Cornea within normal limits. Periorbital areas with no swelling, redness, or edema. Neck: Trachea midline, no thyromegaly or masses palpated, and no cervical lymphadenopathy. Supple, full range of motion without nuchal rigidity, or vertebral point tenderness. No Meningismus. Chest/axilla: Normal chest wall appearance and motion. Nontender with no deformity. No lesions are appreciated. Cardiovascular: Regular rate and rhythm with a normal S1 and S2. No gallops, murmurs, or rubs. Normal PMI, no JVD. No pulse deficits. Respiratory: Lungs have equal breath sounds bilaterally, clear to auscultation and percussion. No rales, rhonchi or wheezes noted. No increased work of breathing, no retractions or nasal flaring. Back: No spinal tenderness. No costovertebral tenderness. Full range of motion. Skin: Warm, dry with normal turgor. Normal color with no rashes, no lesions, and no evidence of cellulitis. MS/ Extremity: Pulses equal, no cyanosis. Neurovascular intact. Full, normal range of motion. Neuro: Awake and alert, GCS 15, oriented to person, place, time, and situation. Cranial nerves II-XII grossly intact. Motor strength 5/5 in all extremities. Sensory grossly intact. Cerebellar exam normal. Normal gait. Psych: Awake, alert, with orientation to person, place and time. Behavior, mood, and affect are within normal limits. 02:18 Abdomen/GI: Inspection: abdomen appears normal, Bowel sounds: normal, Palpation: soft, mild abdominal tenderness, in all quadrants, Liver: no appreciated palpable abnormalities. Vital Signs: 09/30 20:40 BP 160 / 83; Pulse 98; Resp 18; Temp 99(TE); Pulse Ox 98% on R/A; Weight 77.11 kg; hb Height 5 ft. 1 in. (154.94 cm); Pain 8/10; 23:35 BP 156 / 71; Pulse 96; Resp 20; Pulse Ox 100% on R/A; 1 10/01 01:25 BP 146 / 73; Pulse 88; Resp 20; Pulse Ox 98% on R/A; [facility] 04:00 BP 177 / 95; Pulse 81; Resp 20; Pulse Ox 98% on R/A; ll3 09/30 20:40 Body Mass Index 32.12 (77.11 kg, 154.94 cm) hb MDM: 02:18 Data reviewed: vital signs, nurses notes, lab test result(s), radiologic studies. [facility] 05:13 Patient medically screened. [facility] 09/30 22:23 Order name: CBC with Diff; Complete Time: 23:32 09/30 22:23 Order name: CMP; Complete Time: 02:14 09/30 22:23 Order name: Lipase; Complete Time: 02:14 09/30 23:10 Order name: Urine Dipstick-Ancillary; Complete Time: 23:32 [facility] 10/01 02:15 Order name: SARS RAPID 10/01 08:28 Order name: Glucose, Ancillary Testing [facility] 09/30 22:23 Order name: IV Saline Lock; Complete Time: 23:04 09/30 22:23 Order name: Labs collected and sent; Complete Time: 23:04 09/30 22:23 Order name: Urine Dipstick-Ancillary (obtain specimen); Complete Time: 23:04 09/30 23:37 Order name: CT Abd/Pelvis - IV Contrast Only [facility] 09/30 23:41 Order name: Abdomen [facility] 10/01 11:56 Order name: Glucose, Ancillary Testing [facility] Administered Medications: 09/30 23:41 Drug: NS 0.9% 500 ml Route: IV; Rate: bolus; Site: right forearm; [facility] 10/01 11:37 Follow up: IV Status: Completed infusion; IV Intake: 500ml jg9 07/26 23:51 Drug: Pepcid (famotidine) 20 mg Route: IVP; Site: right forearm; [facility] 23:51 Follow up: Response: No adverse reaction bh1 Disposition Summary: 10/01/21 05:13 Hospitalization Ordered Hospitalization Status: Inpatient Admission kdr Provider: Kale Mosher Location: Telemetry/[facility] (Inpatient) kdr Condition: Fair kdr Problem: new kdr Symptoms: have improved kdr Bed/Room Type: Standard kdr Room Assignment: 205(10/01/21 11:01) bd Diagnosis - Upper abdominal pain, unspecified kdr - Biliary acute pancreatitis kdr Discharge Instructions: - Discharge Summary Sheet ll3 Forms: - Medication Reconciliation Form kdr - SBAR form kdr Signatures: Dispatcher [employer] EDMS Jayda Lala Kevin, MD MD kdr Mari Greer RN RN Radha Howard RN RN Jayda Glover RN RN bh Padmini Cantu RN jg9 Corrections: (The following items were deleted from the chart) 10/01 11:01 05:13 kdr bd
[2021-10-01] MEDS: INSULIN -REGULAR HUMAN 50 UNIT/0.5 ML ML SQ SCH ×4 (07:30→21:00)
[2021-10-01] MEDS ORDERED: INSULIN -REGULAR HUMAN 50 UNIT/0.5 ML ML ONE (08:31)
[2021-10-01] MEDS: ENOXAPARIN 40 MG/0.4 ML SQ SCH (09:00)
[2021-10-01] MEDS ORDERED: MORPHINE 4 MG/ML SYR ONE (09:46)
[2021-10-01] MEDS: MORPHINE 4 MG/ML SYR IV PRN ×3 (09:47→22:16)
[2021-10-01] MEDS ORDERED: ENOXAPARIN 40 MG/0.4 ML SQ ONE (10:00)
--- NOTE | 2021-10-01 11:24 | RAD REPORT ---
EXAM DESCRIPTION: CT - Abdomen Pelvis W Contrast - 10/01/2021 6:53 am CLINICAL HISTORY: The patient is 75 years old and is Female; Abdominal pain, acute, nonlocalized TECHNIQUE: Axial computed tomography images of the abdomen and pelvis with intravenous contrast. S agittal and coronal reformatted images were created and reviewed. This CT exam was performed using one or more of the following dose reduction techniques: automated exposure control, adjustment of t he mA and/or kV according to patient size, and/or use of iterative reconstruction technique. COMPARISON: CT abdomen pelvis July 27, 2021 FINDINGS: LUNG BASES: Unremarkable. No mass. No consolidation. MEDIASTINUM: A small hiatal hernia is present. ABDOMEN: LIVER: Unremarkable. No mass. GALLBLADDER AND BILE DUCTS: Surgical clips are present in the right upper quadrant, consistent wi th previous cholecystectomy. Mild pneumobilia is present. PANCREAS: The posterior body and tail the pancreas is atrophic. Mild inflammatory stranding surro unding the head and uncinate process is noted. SPLEEN: Unremarkable. ADRENALS: Unremarkable. No mass. KIDNEYS AND URETERS: Left parapelvic renal cysts are noted. No follow-up imaging is recommended. The kidneys enhance symmetrically. There is no hydronephrosis or hydroureter of either kidney. No obs tructing renal or ureteral calculus is seen. STOMACH AND BOWEL: The stomach is minimally fluid filled. The small bowel is relatively normal in caliber. Stool is present throughout colon. There is no mucosal thickening or evidence of bowel obst ruction. Scattered colonic diverticula are noted without surrounding inflammation. PELVIS: APPENDIX: No findings to suggest acute appendicitis. BLADDER: The bladder is moderately distended. REPRODUCTIVE: The patient is status post hysterectomy. ABDOMEN and PELVIS: INTRAPERITONEAL SPACE: Unremarkable. No free air. No significant fluid collection. BONES/JOINTS: Multilevel degenerative change of the spine is present. SOFT TISSUES: The soft tissues are normal. VASCULATURE: Unremarkable. No abdominal aortic aneurysm. LYMPH NODES: Unremarkable. No enlarged lymph nodes. IMPRESSION: 1. Findings suggest mild acute pancreatitis involving the head and uncinate process. 2. Moderate sized hiatal hernia. Electronically signed by: Ariana Lazaro MD 10/01/2021 1:29 AM CDT Due to temporary technical issues with the PACS/Fluency reporting system, reports are being signed by the in house radiologists without review as a courtesy to insure prompt reporting. The interpreting radiologist is fully responsible for the content of the report.
[2021-10-01] MEDS ORDERED: PROMETHAZINE INJ 25 MG/ML AMP IV PRN (13:31)
--- NOTE | 2021-10-01 14:37 | P.PN ---
Date of Service: 10/01/21 Pt still complaining of nausea, no vomiting. She is tolerating only clear liquid diet. Diagnosis: Acute on chronic pancreatitis Plan: Continue supportive measures. IV hydration Advance diet as tolerated Lipase level is normal Continue other home medications.
[2021-10-01] MEDS: ATORVASTATIN 10 MG TAB PO SCH (20:06)
[2021-10-02] MEDS: NA CHLORIDE 0.9% 1,000 ML IV SCH ×3 (03:03→18:04)
[2021-10-02 04:14] LABS: Absolute Lymphocytes (CBC) 1.7 K/uL (0.7-4.9); Hematocrit 32.7 % (36.0-45.0); Lymphocytes % 20.8 % (15.3-44.8); MCV 75.9 fL (80-100); MPV 7.8 fL (7.6-11.3); RBC Red Blood Cell Count 4.32 M/uL (3.86-4.86)
[2021-10-02 04:38] LABS: Magnesium 1.8 mg/dL (1.8-2.4); Potassium 3.7 mmol/L (3.5-5.1); Thyroid Stimulating Hormone 2.17 uIU/mL (0.360-3.740)
[2021-10-02] MEDS ORDERED: HYDRALAZINE HCL 20 MG/ML VIAL IV PRN (04:48)
[2021-10-02] MEDS ORDERED: FAMOTIDINE 20 MG/2 ML VIAL IV ONE (04:48)
[2021-10-02] MEDS: SUCRALFATE 1 GM TABLET PO SCH (08:52)
[2021-10-02] MEDS: ENOXAPARIN 40 MG/0.4 ML SQ SCH (08:53)
[2021-10-02] MEDS: INSULIN -REGULAR HUMAN 50 UNIT/0.5 ML ML SQ SCH ×4 (08:53→21:48)
[2021-10-02] MEDS: ONDANSETRON 4 MG/2 ML VIAL IV PRN (08:54)
[2021-10-02] MEDS: HYDROCODONE/APAP 7.5/325 MG TAB PO PRN ×2 (08:56→14:53)
[2021-10-02] MEDS ORDERED: HOME MED 1 EA UNK (Simvastatin [Simvastatin] 20 MG Tablet) PO SCH (09:00)
[2021-10-02] MEDS ORDERED: MAGNESIUM CITRATE 300 ML BOT PO SCH (10:00)
--- NOTE | 2021-10-02 14:07 | P.PN ---
Subjective Date of Service: 10/02/21 Chief Complaint: Pancreatitis Patient complaining of nausea. She also reported constipation for several days. Currently on clear liquid diet. Physical Examination - Vital Signs Temperature: 97.7 F Blood Pressure: 167/93 Pulse: 91 Respirations: 16 Pulse Ox (%): 97 - Physical Exam General: Alert, In no apparent distress, Oriented x3, Obese HEENT: Mucous membr. moist/pink Neck: JVD not distended Respiratory: Clear to auscultation bilaterally, Normal air movement Cardiovascular: No edema, Regular rate/rhythm, Normal S1 S2, No murmurs Gastrointestinal: Normal bowel sounds, Soft and benign, Non-distended, No tenderness Musculoskeletal: No swelling Integumentary: No rashes, No cyanosis Neurological: Normal strength at 5/5 x4 extr Assessment And Plan - Current Problems (Diagnosis) (1) Functional constipation Current Visit: Yes Status: Acute (2) Acute on chronic pancreatitis Current Visit: Yes Status: Acute (3) Diabetes mellitus type 2 in obese Current Visit: Yes Status: Chronic (4) HTN (hypertension) Current Visit: Yes Status: Chronic Qualifiers: Hypertension type: primary hypertension Qualified Code(s): I10 - Essential (primary) hypertension - Plan Continue supportive measures. Oral magnesium citrate for constipation. Pain management as tolerated. Advance diet as tolerated. Monitor and correct electrolytes. Insulin sliding scale for glucose management. Start amlodipine for uncontrolled hypertension.
[2021-10-02] MEDS: AMLODIPINE 10 MG TAB PO SCH (14:54)
[2021-10-02] MEDS: ATORVASTATIN 10 MG TAB PO SCH (21:48)
[2021-10-03] MEDS: NA CHLORIDE 0.9% 1,000 ML IV SCH ×2 (01:57→10:45)
[2021-10-03] MEDS: SUCRALFATE 1 GM TABLET PO SCH ×3 (05:03→13:14)
[2021-10-03] MEDS ORDERED: FAMOTIDINE 20 MG TAB PO PRN (05:17)
[2021-10-03] MEDS: ONDANSETRON 4 MG/2 ML VIAL IV PRN (06:46)
[2021-10-03] MEDS: ENOXAPARIN 40 MG/0.4 ML SQ SCH (08:30)
[2021-10-03] MEDS: AMLODIPINE 10 MG TAB PO SCH (08:32)
[2021-10-03] MEDS: INSULIN -REGULAR HUMAN 50 UNIT/0.5 ML ML SQ SCH ×2 (08:32→12:26)
[2021-10-03 09:33] VITALS: O2SAT 93
[2021-10-03 13:25] VITALS: BP 155/67; TEMP 97.2
--- NOTE | 2021-10-03 15:35 | P.DS ---
Admission Date: 10/01/21 Discharge Date: 10/03/21 Disposition: ROUTINE DISCHARGE Discharge Condition: FAIR Reason for Admission: Pancreatitis - Problems (1) Functional constipation Current Visit: Yes Status: Acute (2) Acute on chronic pancreatitis Current Visit: Yes Status: Acute (3) Diabetes mellitus type 2 in obese Current Visit: Yes Status: Chronic (4) HTN (hypertension) Current Visit: Yes Status: Chronic Qualifiers: Hypertension type: primary hypertension Qualified Code(s): I10 - Essential (primary) hypertension Brief History of Present Illness: Patient is a 75-year-old female with chronic pancreatitis and HTN who presented to the ED with complaints of diffuse abdominal pain associated with nausea that began 2 hours CAR PILOT. She reports the pain is similar to her previous pancreatitis flare ups. CT revealed mild pancreatitis. Lipase WNL (similar in past). She was given fluids, morphine, and zofran. VSS. Patient is admitted for further evaluation and treatment. Hospital Course: Patient admitted to the medical floor and treated for acute pancreatitis with supportive measures. Her lipase level was normal. She also complained of constipation which was treated with laxatives and stool softeners. Patient successfully had bowel movement. She initially had nausea and vomiting which resolved. She tolerated diet. She is ambulatory, vitals are stable. She is deemed stable for discharge. Vital Signs/Physical Exam: Temp Pulse Resp BP Pulse Ox 97.2 F 78 18 155/67 H 96 10/03/21 12:00 10/03/21 12:00 10/03/21 12:00 10/03/21 12:00 10/03/21 12:00 General: Alert, In no apparent distress, Oriented x3 HEENT: Mucous membr. moist/pink Neck: Supple, JVD not distended Respiratory: Clear to auscultation bilaterally, Normal air movement Cardiovascular: No edema, Regular rate/rhythm, Normal S1 S2 Capillary refill: <2 Seconds Gastrointestinal: Normal bowel sounds, Soft and benign, Non-distended, No tenderness Musculoskeletal: No swelling Integumentary: No rashes Neurological: Normal strength at 5/5 x4 extr Laboratory Data at Discharge: WBC 8.1 K/uL (4.3-10.9) D 10/02/21 03:27 Hgb 10.6 g/dL (12.0-15.0) L 10/02/21 03:27 Hct 32.7 % (36.0-45.0) L 10/02/21 03:27 Plt Count 241 K/uL (152-406) 10/02/21 03:27 Sodium 136 mmol/L (136-145) 10/02/21 03:27 Potassium 3.7 mmol/L (3.5-5.1) 10/02/21 03:27 BUN 4 mg/dL (7-18) L 10/02/21 03:27 Creatinine 0.62 mg/dL (0.55-1.3) 10/02/21 03:27 Glucose 156 mg/dL (74-106) H 10/02/21 03:27 Magnesium 1.8 mg/dL (1.8-2.4) 10/02/21 03:27 Total Bilirubin 0.3 mg/dL (0.2-1.0) 09/30/21 23:25 AST 12 U/L (15-37) L 09/30/21 23:25 ALT 20 U/L (12-78) 09/30/21 23:25 Alkaline Phosphatase 136 U/L (45-117) H 09/30/21 23:25 Triglycerides 220 mg/dL (<150) H 10/02/21 03:27 Cholesterol 183 mg/dL (<200) 10/02/21 03:27 HDL Cholesterol 47 mg/dL (40-60) 10/02/21 03:27 Cholesterol/HDL Ratio 3.89 10/02/21 03:27 Amylase 25 U/L (25-115) 10/02/21 03:27 Lipase 55 U/L (73-393) L 10/02/21 03:27 Home Medications: Hydrocodone 7.5/APAP 325 [[place] 7.5/325 mg*] 1 tab PO Q6H PRN #30 tab 07/28/21 Simvastatin 1 tab PO DAILY 09/12/21 Fluconazole 1 tab PO DAILY 09/16/21 Nystatin/Triamcin [Nystatin-Triamcinolone Cream] 30 gm TP BID 42 Days #1 cream..g. 09/16/21 Glimepiride [Amaryl] 2 mg PO DAILY #30 tablet 09/17/21 Metformin HCl [Glucophage*] 500 mg PO BIDWM #60 tab 09/17/21 Phenazopyrididine [Pyridium*] 100 mg PO TID PRN #30 tab 09/17/21 Amlodipine [Norvasc*] 10 mg PO DAILY #30 tab 10/03/21 Pantoprazole [Protonix Tab*] 40 mg PO BID #60 tab 10/03/21 Sucralfate [Carafate*] 1 gm PO TID #90 tab 10/03/21 New Medications: Sucralfate [Carafate*] 1 gm PO TID #90 tab Amlodipine [Norvasc*] 10 mg PO DAILY #30 tab Pantoprazole [Protonix Tab*] 40 mg PO BID #60 tab Diet: AHA Activity: Fall precautions Followup: Dmitry Powell, [Primary Care Provider] - Time spent managing pt's care (in minutes): 33
== END 2021-10-03 18:00 | disposition home or self-care (01) | DRG 440 ==
LOC: ER 20:24 → ERHOLD 10-01 02:55 → 2ND 10-01 11:47
PROVIDERS: ADMIT Internal Medicine; ATTEND Internal Medicine
DX: K85.90 Acute pancreatitis without necrosis or infection, unspecified (principal); K86.1 Other chronic pancreatitis; K59.04 Chronic idiopathic constipation; E11.9 Type 2 diabetes mellitus without complications; G89.29 Other chronic pain; R11.2 Nausea with vomiting, unspecified; I10 Essential (primary) hypertension; F41.9 Anxiety disorder, unspecified; K76.0 Fatty (change of) liver, not elsewhere classified; R32 Unspecified urinary incontinence; E66.9 Obesity, unspecified; Z68.32 Body mass index [BMI] 32.0-32.9, adult; Z20.822 Contact with and (suspected) exposure to COVID-19; Z79.84 Long term (current) use of oral hypoglycemic drugs; Z79.899 Other long term (current) drug therapy; Z87.442 Personal history of urinary calculi; Z87.440 Personal history of urinary (tract) infections; Z90.49 Acquired absence of other specified parts of digestive tract; Z90.710 Acquired absence of both cervix and uterus; Z83.3 Family history of diabetes mellitus; Z82.49 Family history of ischemic heart disease and other diseases of the circulatory system; Z82.0 Family history of epilepsy and other diseases of the nervous system; Z80.9 Family history of malignant neoplasm, unspecified
CPT/HCPCS: 36415; 74177; 80048; 80053; 80061; 81003; 82150; 82947; 83036; 83690; 83735; 84443; 85025; 87811; 96361; 96374; 99284; J0360; J1650; J1815; J2405; J2550; J7030; J7040; Q9967

== ENCOUNTER 2022-03-28 22:47 | Inpatient (IN) | payer MEDICARE ==
--- OUTSIDE RECORDS SUMMARY | 2022-03-28 22:55 | XMS REPORT | Continuity of Care Document ---
:1945 Author Organization [facility] t Address [address] [place] [address] Care Team Providers Name Role Phone Dmitry Powell DO Primary Care Physician [phone] Dmitry Powell Attending Clinician Unavailable Ogdestiny_Abel Attending Clinician Unavailable GAY QIU Attending Clinician Unavailable Campos Admitting Clinician Unavailable GAY QIU Admitting Clinician Unavailable Payers Payer Name Policy Type Policy Effective Date Expiration Date Sour ce Number MEDICARE A B [id number] 2012 00:00:00 [employer] [id number] 2020 (MEDICARE 00:00:00 REPLACEMENT HMO) [employer] [id number] Common Spi [facility] - [facility] [employer] C1 [id number] Common Spi rit - [facility] C1 [id number] Common Spi rit - [facility] [employer] C1 [id number] Common Spi rit - [facility] [employer] [id number] Common Spi rit - [facility] [employer] C1 [id number] Common Spi rit - [facility] [employer] [id number] Common Spi rit - [facility] [employer] C1 [id number] Common Spi rit - [facility] [employer] C1 [id number] Common Spi rit [facility] Problems Condition Condition Condition Status Onset Resolution Last Treating Co mments Source Name Details Category Date Date Treatment Clinician Date Acute Acute Disease Active [facility] pancreat[facility] pancreatit 11-09 Mansi kes is is 00:00: Medical 00 Center Essential Essential Disease Active [facility] hypertensi hypertensi 11-09 Mansi kes on on 00:00: Medical 00 Center 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 11-09 Luke s 00:00: Medical 00 [place] Mixed Depression Problem Commo n anxiety with Spirit and anxiety - CHI depressive [facility] Hiatal Hiatal Problem Common hernia hernia [facility] Benign Benign Problem Common essential essential Spir it hypertensi hypertensi - CHI on on [facility] Mixed Hyperlipid Problem Commo n hyperlipid emia, Spirit emia mixed [facility] Ulcer of Ulcer of Problem Commo n esophagus esophagus Spir it without - CHI bleeding [facility] [id number] Cystocele Problem Com mon and Spirit rectocele - CHI with [facility] uterovagin Medica l al Center prolapse [id number] Urinary Problem Commo n incontinen Spirit ce, - CHI unspecifie [facility] Kidney Left Problem Common stone nephrolith [facility] iasis [facility] Vitamin D Vitamin D Problem Com mon deficiency deficiency Sp nahed [facility] [id number] Chronic Problem Common gastritis Spirit [facility] type [id number] Insomnia, Problem Com mon unspecifie Spirit d type [facility] [id number] Chronic Problem Commo n GERD Spirit [facility] [id number] Fatigue, Problem Commo n unspecifie Spirit d type [facility] [id number] Peripheral Problem Com mon polyneurop Spirit athy [facility] [id number] Nocturnal Problem Commo n enuresis [facility] [id number] Gross Problem Common hematuria Spirit [facility] [id number] Stress Problem Common incontinen Spirit ce due to - CHI pelvic 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 of ureteral [facility] stent Medical [place] [id number] Type 2 [place] [id number] diabetes Spirit mellitus - CHI with other diabetic [facility] kidney Medical complicati Center on [id number] Incontinen Problem Com mon ce of Spirit feces, - CHI unspecifie [facility] incontinen Medica l ce type Center [id number] Cystitis Problem Commo n Spirit - [facility] [id number] Bladder Problem Commo n spasms Spirit [facility] [id number] Lower Problem Common urinary Spirit tract - CHI symptoms ([facility] [id number] Incomplete Problem Co mmon emptying Spirit of bladder - [facility] [id number] [place], [place] [id number] joint, Spirit knee, - CHI right [facility] [id number] Pain, Problem Commo n [id number] joint, Spirit ankle, - CHI right [facility] [id number] Detrusor Problem Comm on instabilit Spirit y - [facility] [id number] Vulvovagin Problem Com mon itis Spirit - [facility] [id number] Pelvic Problem Common pain Spirit - [facility] [id number] Urge Problem Common incontinen Spirit ce - [facility] [id number] Chronic Problem Commo n recurrent Spirit pancreatit - CHI is [facility] [id number] Primary Problem 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 Spirit n of the dysfunctio - CH I urinary n of St bladder bladder, [facility] un[facility]ifie Medica [facility] d [place] [id number] Acute Problem Common vaginitis [facility] Allergies, Adverse Reactions, Alerts Allergy Allergy Status Severity Reaction(s) Onset Inactive Treating Comm ents Source Name Type Date Date Clinician NO KNOWN Allergy Active [facility] Social History Social Habit Start Date Stop Date Quantity Comments Source History of Tobacco Common Spirit - Use [facility] History [facility] Alcohol Std Drinks Medica [facility] History [facility] Alcohol Binge Medical [facility] History [facility] Alcohol Comment Medical C enter Tobacco use and 2018-11-09 2018-11-09 Never used [facility] exposure 00:00:00 00:00:00 [facility] Alcohol intake 2018-11-09 2018-11-09 [facility] non-drinker of Medical Ce nter alcohol (finding) History [facility] 2018-11-09 2018-11-[address] [facility] Alcohol Frequency 00:00:00 00:00:00 [facility] Sex Assigned At [address] [facility] 00:00:00 00:00:00 [facility] Smoking Status Start Date Stop Date Source Unknown if ever smoked Common Sp nahed - [facility] Ce nter Never Smoker Common Spirit - [facility] nter Former smoker 2018-11-09 00:00:00 2018-11-09 00:00:00 [facility] Medications Ordered Filled Start Stop Current Ordering Indication Dosage Frequency Signature Comments Components Source Medication Medication Date Date Medication? Clinician (SIG) Name Name Solifenacin Solifenacin 2022- No 1{table QD Solifenaci Succinate Succinate 03-11 1230 t} n 10 MG 10 MG 00:00: 00:00 Succinate 00 :00 10 MG Solifenacin Solifenacin 2022- No 1{table QD Solifenaci Succinate Succinate 03-11 t} n 10 MG 10 MG 00:00: 00:00 Succinate 00 :00 10 MG Clotrimazol Clotrimazol 2022- No 1{appli BID Clotrimazo e-Betametha e-Betametha 03-11 cation} le-Betamet sone 1-0.05 sone 1-0.05 00:00: 00:00 hasone % % 00 :00 1-0.05 % Fluconazole Fluconazole 2022- No 1{table Fluconazol 150 MG 150 MG 03-11 t} e 150 MG 00:00: 00:00 00 :00 amitriptyli amitriptyli 2021-03- No amitriptyl ne 25 mg ne 25 mg 04-22 ine 25 mg 00:00: 00:00 00 :00 amitriptyli amitriptyli 2021-03- No amitriptyl ne 25 mg ne 25 mg 04-22 ine 25 mg 00:00: 00:00 00 :00 Clotrimazol Clotrimazol 2021-03- No 1{appli BID Clotrimazo e-Betametha e-Betametha 03-16 cation} le-Betamet sone 1-0.05 sone 1-0.05 00:00: 00:00 hasone % % 00 :00 1-0.05 % Clotrimazol Clotrimazol 2021-03- No 1{troch TID Clotrimazo e 10 MG e 10 MG 03-16 e} le 10 MG 00:00: 00:00 00 :00 Nitrofurant Nitrofurant 2021-03- No Nitrofuran oin Monohyd oin Monohyd 0-18 05-14 toin Macro 100 Macro 100 00:00: 00:00 Monohyd MG MG 00 :00 Macro 100 MG Nitrofurant Nitrofurant 2021-03- No Nitrofuran oin Monohyd oin Monohyd 0-18 05-14 toin Macro 100 Macro 100 00:00: 00:00 Monohyd MG MG 00 :00 Macro 100 MG Nitrofurant Nitrofurant 2021-03- No Nitrofuran oin Monohyd oin Monohyd 0-18 03-09 toin Macro 100 Macro 100 00:00: 00:00 Monohyd MG MG 00 :00 Macro 100 MG Nitrofurant Nitrofurant 2021-03- No Nitrofuran oin Monohyd oin Monohyd 0-18 03-09 toin Macro 100 Macro 100 00:00: 00:00 Monohyd MG MG 00 :00 Macro 100 MG Nitrofurant Nitrofurant 2021-03- No Nitrofuran oin Monohyd oin Monohyd 0-18 03-09 toin Macro 100 Macro 100 00:00: 00:00 Monohyd MG MG 00 :00 Macro 100 MG Nitrofurant Nitrofurant 2021-03- No 1{capsu QD Nitrofuran oin Monohyd oin Monohyd 0-18 02-15 le_with toin Macro 100 Macro 100 00:00: 00:00 _food} Monohyd MG MG 00 :00 Macro 100 MG Nitrofurant Nitrofurant 2021-03- No 1{capsu QD Nitrofuran oin Monohyd oin Monohyd 0-18 02-15 le_with toin Macro 100 Macro 100 00:00: 00:00 _food} Monohyd MG MG 00 :00 Macro 100 MG Cephalexin Cephalexin 2021-03- No 1{capsu TID Cephalexin 500 MG 500 MG 0-18 -23 le} 500 MG 00:00: 00:00 00 :00 Amitriptyli Amitriptyli 2021-0 No 1{table QD Amitriptyl ne HCl 75 ne HCl 75 8-05 t_at_be ine HCl 75 MG MG 00:00: dtime} MG 00 Amitriptyli Amitriptyli 2021-0 No 1{table QD Amitriptyl ne HCl 75 ne HCl 75 8-05 t_at_be ine HCl 75 MG MG 00:00: dtime} MG 00 Amitriptyli Amitriptyli 2021-0 No 1{table QD Amitriptyl ne HCl 75 ne HCl 75 8-05 t_at_be ine HCl 75 MG MG 00:00: dtime} MG 00 Amitriptyli Amitriptyli 2021-0 No 1{table QD Amitriptyl ne HCl 75 ne HCl 75 8-05 t_at_be ine HCl 75 MG MG 00:00: dtime} MG 00 Amitriptyli Amitriptyli 2021-0 No 1{table QD Amitriptyl ne HCl 75 ne HCl 75 8-05 t_at_be ine HCl 75 MG MG 00:00: dtime} MG 00 Amitriptyli Amitriptyli 2-0 No 1{table QD Amitriptyl ne HCl 75 ne HCl 75 8-05 t_at_be ine HCl 75 MG MG 00:00: dtime} MG 00 Amitriptyli Amitriptyli 2021-0 No 1{table QD Amitriptyl ne HCl 75 ne HCl 75 8-05 t_at_be ine HCl 75 MG MG 00:00: dtime} MG 00 Solifenacin Solifenacin 2021-0 2023- No 1{table QD Solifenaci Succinate Succinate 10-10 t} n 10 MG 10 MG 00:00: 00:00 Succinate 00 :00 10 MG Solifenacin Solifenacin 2-0 2023- No 1{table QD Solifenaci Succinate Succinate 10-10 t} n 10 MG 10 MG 00:00: 00:00 Succinate 00 :00 10 MG Solifenacin Solifenacin 2-0 2023- No 1{table QD Solifenaci Succinate Succinate 10-10 t} n 10 MG 10 MG 00:00: 00:00 Succinate 00 :00 10 MG Solifenacin Solifenacin 2-0 2023- No 1{table QD Solifenaci Succinate Succinate 10-10 t} n 10 MG 10 MG 00:00: 00:00 Succinate 00 :00 10 MG Solifenacin Solifenacin 2-0 2023- No 1{table QD Solifenaci Succinate Succinate 10-10 t} n 10 MG 10 MG 00:00: 00:00 Succinate 00 :00 10 MG Solifenacin Solifenacin 2022-0 2023- No 1{table QD Solifenaci Succinate Succinate 10-10 t} n 10 MG 10 MG 00:00: 00:00 Succinate 00 :00 10 MG Solifenacin Solifenacin 2022-0 2023- No 1{table QD Solifenaci Succinate Succinate 10-10 t} n 10 MG 10 MG 00:00: 00:00 Succinate 00 :00 10 MG Solifenacin Solifenacin 2022-0 2023- No 1{table QD Solifenaci Succinate Succinate 10-10 t} n 10 MG 10 MG 00:00: 00:00 Succinate 00 :00 10 MG Solifenacin Solifenacin 2-0 2023- No 1{table QD Solifenaci Succinate Succinate 10-10 t} n 10 MG 10 MG 00:00: 00:00 Succinate 00 :00 10 MG Lidocaine Lidocaine 2022-0 No 10mg Com 07-31 Spirit 00:00: - CHI 00 [facility] Kenalog Kenalog 2-0 No 40mg Common (Triamcinol (Triamcinol 5-26 S pirit one) one) 00:00: - CHI 00 [facility] Lidocaine Lidocaine 2022-0 No 10mg Com 07-31 Spirit 00:00: - CHI 00 [facility] Kenalog Kenalog 2022-0 No 40mg Common (Triamcinol (Triamcinol 5-26 S pirit one) one) 00:00: - CHI 00 [facility] Lidocaine Lidocaine 2-0 No 10mg Com 07-31 Spirit 00:00: - [facility] Kenalog Kenalog 2022-0 No 40mg Common (Triamcinol (Triamcinol 5-26 S pirit one) one) 00:00: - CHI 00 [facility] Lidocaine Lidocaine 2022-0 No 10mg Com 07-31 Spirit 00:00: - CHI 00 [facility] Kenalog Kenalog 2022-0 No 40mg Common (Triamcinol (Triamcinol 5-26 S pirit one) one) 00:00: - CHI 00 [facility] Lidocaine Lidocaine 2022-0 No 10mg Com 07-31 Spirit 00:00: - CHI 00 [facility] Kenalog Kenalog 2022-0 No 40mg Common (Triamcinol (Triamcinol 5-26 S pirit one) one) 00:00: - CHI 00 [facility] Lidocaine Lidocaine 2-0 No 10mg Com 07-31 Spirit 00:00: - CHI 00 [facility] Kenalog Kenalog 2-0 No 40mg Common (Triamcinol (Triamcinol 5-26 S pirit one) one) 00:00: - CHI 00 [facility] Lidocaine Lidocaine 2-0 No 10mg Com 07-31 Spirit 00:00: - CHI 00 [facility] Kenalog Kenalog 2-0 No 40mg Common (Triamcinol (Triamcinol 5-26 S pirit one) one) 00:00: - CHI 00 [facility] Lidocaine Lidocaine 2-0 No 10mg Com 07-31 Spirit 00:00: - CHI 00 [facility] Kenalog Kenalog 2-0 No 40mg Common (Triamcinol (Triamcinol 5-26 S pirit one) one) 00:00: - [facility] Lidocaine Lidocaine 2-0 No 10mg Com 07-31 Spirit 00:00: - CHI 00 [facility] Kenalog Kenalog 2-0 No 40mg Common (Triamcinol (Triamcinol 5-26 S pirit one) one) 00:00: - CHI 00 [facility] Lidocaine Lidocaine 2-0 No 10mg Com 07-31 Spirit 00:00: - CHI 00 [facility] Kenalog Kenalog 2-0 No 40mg Common (Triamcinol (Triamcinol 5-26 S pirit one) one) 00:00: - [facility] Lidocaine Lidocaine 2-0 No 10mg Com 07-31 Spirit 00:00: - CHI 00 [facility] Kenalog Kenalog 2-0 No 40mg Common (Triamcinol (Triamcinol 5-26 S pirit one) one) 00:00: - [facility] Lidocaine Lidocaine 2-0 No 10mg Com 07-31 Spirit 00:00: - CHI 00 [facility] Kenalog Kenalog 2-0 No 40mg Common (Triamcinol (Triamcinol 5-26 S pirit one) one) 00:00: - CHI 00 [facility] Lidocaine Lidocaine 2-0 No 10mg Com 07-31 Spirit 00:00: - CHI 00 [facility] Kenalog Kenalog 2-0 No 40mg Common (Triamcinol (Triamcinol 5-26 S pirit one) one) 00:00: - CHI 00 [facility] Lidocaine Lidocaine 2-0 No 10mg Com 07-31 Spirit 00:00: - CHI 00 [facility] Kenalog Kenalog 2-0 No 40mg Common (Triamcinol (Triamcinol 5-26 S pirit one) one) 00:00: - CHI 00 [facility] Lidocaine Lidocaine 2-0 No 10mg Com 07-31 Spirit 00:00: - CHI 00 [facility] Kenalog Kenalog 2-0 No 40mg Common (Triamcinol (Triamcinol 5-26 S pirit one) one) 00:00: - CHI 00 [facility] Lidocaine Lidocaine 2-0 No 10mg Com 07-31 Spirit 00:00: - CHI 00 [facility] Kenalog Kenalog 2-0 No 40mg Common (Triamcinol (Triamcinol 5-26 S pirit one) one) 00:00: - CHI 00 [facility] Lidocaine Lidocaine 2-0 No 10mg Com 07-31 Spirit 00:00: - CHI 00 [facility] Kenalog Kenalog 2-0 No 40mg Common (Triamcinol (Triamcinol 5-26 S pirit one) one) 00:00: - CHI 00 [facility] Lidocaine Lidocaine 2-0 No 10mg Com 07-31 Spirit 00:00: - CHI 00 [facility] Kenalog Kenalog 2-0 No 40mg Common (Triamcinol (Triamcinol 5-26 S pirit one) one) 00:00: - CHI 00 [facility] Lidocaine Lidocaine 2-0 No 10mg Com 07-31 Spirit 00:00: - CHI 00 [facility] Kenalog Kenalog 2-0 No 40mg Common (Triamcinol (Triamcinol 5-26 S pirit one) one) 00:00: - CHI 00 [facility] amitriptyli amitriptyli 0 No amitriptyl ne 25 mg ne 25 mg 5-20 ine 25 mg 00:00: 00 amitriptyli amitriptyli 2021-0 No amitriptyl ne 25 mg ne 25 mg 5-20 ine 25 mg 00:00: 00 amitriptyli amitriptyli 2021-0 No amitriptyl ne 25 mg ne 25 mg 5-20 ine 25 mg 00:00: 00 amitriptyli amitriptyli 2021-0 No amitriptyl ne 25 mg ne 25 mg 5-20 ine 25 mg 00:00: 00 amitriptyli amitriptyli 2021-0 No amitriptyl ne 25 mg ne 25 mg 5-20 ine 25 mg 00:00: 00 amitriptyli amitriptyli 2021-0 No amitriptyl ne 25 mg ne 25 mg 5-20 ine 25 mg 00:00: 00 amitriptyli amitriptyli 2021-0 No amitriptyl ne 25 mg ne 25 mg 5-20 ine 25 mg 00:00: 00 amitriptyli amitriptyli 2021-0 No amitriptyl ne 25 mg ne 25 mg 5-20 ine 25 mg 00:00: 00 amitriptyli amitriptyli 2021-0 No amitriptyl ne 25 mg ne 25 mg 5-20 ine 25 mg 00:00: 00 amitriptyli amitriptyli 2021-0 No amitriptyl ne 25 mg ne 25 mg 5-20 ine 25 mg 00:00: 00 amitriptyli amitriptyli 2021-0 No amitriptyl ne 25 mg ne 25 mg 5-20 ine 25 mg 00:00: 00 amitriptyli amitriptyli 2021-0 No amitriptyl ne 25 mg ne 25 mg 5-20 ine 25 mg 00:00: 00 amitriptyli amitriptyli 2021-0 No amitriptyl ne 25 mg ne 25 mg 5-20 ine 25 mg 00:00: 00 amitriptyli amitriptyli 2021-0 No amitriptyl ne 25 mg ne 25 mg 5-20 ine 25 mg 00:00: 00 amitriptyli amitriptyli 2021-0 No amitriptyl ne 25 mg ne 25 mg 5-20 ine 25 mg 00:00: 00 amitriptyli amitriptyli 2021-0 No amitriptyl ne 25 mg ne 25 mg 5-20 ine 25 mg 00:00: 00 amitriptyli amitriptyli 2021-0 No amitriptyl ne 25 mg ne 25 mg 5-20 ine 25 mg 00:00: 00 amitriptyli amitriptyli 2021-0 No amitriptyl ne 25 mg ne 25 mg 5-20 ine 25 mg 00:00: 00 amitriptyli amitriptyli 2021-0 No amitriptyl ne 25 mg ne 25 mg 5-20 ine 25 mg 00:00: 00 amitriptyli amitriptyli 2021-0 No amitriptyl ne 25 mg ne 25 mg 5-20 ine 25 mg 00:00: 00 Fluconazole Fluconazole 0 2021- No 1{table QD Fluconazol 100 MG 100 MG 07-17 t} e 100 MG 00:00: 00:00 00 :00 Bactrim DS Bactrim DS 0 2021- No 1{table BID Bactrim DS 800-160 MG 800-160 MG 07-12 t} 800-160 MG 00:00: 00:00 00 :00 Bactrim DS Bactrim DS 2021-0 2- No 1{table BID Bactrim DS 800-160 MG 800-160 MG 07-12 t} 800-160 MG 00:00: 00:00 00 :00 Uribel 118 Uribel 118 2021-0 2- No 1{capsu BID Uribel 118 MG MG 05-09 le} MG 00:00: 00:00 00 :00 Uribel 118 Uribel 118 2021-0 2- No 1{capsu BID Uribel 118 MG MG 05-09 le} MG 00:00: 00:00 00 :00 Clotrimazol Clotrimazol 0 2- No 1{appli BID Clotrimazo e-Betametha e-Betametha 3-02 05-25 cation} le-Betamet sone 1-0.05 sone 1-0.05 00:00: 00:00 hasone % % 00 :00 1-0.05 % Clotrimazol Clotrimazol 2021- No 1{appli BID Clotrimazo e-Betametha e-Betametha 3-02 05-25 cation} le-Betamet sone 1-0.05 sone 1-0.05 00:00: 00:00 hasone % % 00 :00 1-0.05 % Clotrimazol Clotrimazol 2021- No 1{appli BID Clotrimazo e-Betametha e-Betametha 3-02 05-25 cation} le-Betamet sone 1-0.05 sone 1-0.05 00:00: 00:00 hasone % % 00 :00 1-0.05 % Clotrimazol Clotrimazol 2021- No 1{appli BID Clotrimazo e-Betametha e-Betametha 3-02 05-25 cation} le-Betamet sone 1-0.05 sone 1-0.05 00:00: 00:00 hasone % % 00 :00 1-0.05 % Clotrimazol Clotrimazol 2021- No 1{appli BID Clotrimazo e-Betametha e-Betametha 3-02 05-25 cation} le-Betamet sone 1-0.05 sone 1-0.05 00:00: 00:00 hasone % % 00 :00 1-0.05 % Clotrimazol Clotrimazol 2021- No 1{appli BID Clotrimazo e-Betametha e-Betametha 3-02 05-25 cation} le-Betamet sone 1-0.05 sone 1-0.05 00:00: 00:00 hasone % % 00 :00 1-0.05 % Pentosan Pentosan 2021- No 1{capsu TID Pentosan Polysulfate Polysulfate 05-07 le_on_a Polysulfat Sodium 100 Sodium 100 00:00: 00:00 n_empty e Sodium MG MG 00 :00 _stomac 100 MG h} Pentosan Pentosan 2021- No 1{capsu TID Pentosan Polysulfate Polysulfate 05-07 le_on_a Polysulfat Sodium 100 Sodium 100 00:00: 00:00 n_empty e Sodium MG MG 00 :00 _stomac 100 MG h} Pentosan Pentosan 2021- No 1{capsu TID Pentosan Polysulfate Polysulfate 05-07 le_on_a Polysulfat Sodium 100 Sodium 100 00:00: 00:00 n_empty e Sodium MG MG 00 :00 _stomac 100 MG h} Bactrim DS Bactrim DS 2021- No 1{table BID Bactrim DS 800-160 MG 800-160 MG 04-10 t} 800-160 MG 00:00: 00:00 00 :00 Fluconazole Fluconazole 2021- No 1{table QD Fluconazol 150 MG 150 MG 04-10 t} e 150 MG 00:00: 00:00 00 :00 Fluconazole Fluconazole 2021- No 1{table QD Fluconazol 200 MG 200 MG 03-10 t} e 200 MG 00:00: 00:00 00 :00 Rocephin Rocephin 2020-1 No 1g Commo n (Ceftriaxon (Ceftriaxon 1-22 S pirit e) e) 00:00: - [facility] 00 [facility] Rocephin Rocephin 2020- No 1g Commo n (Ceftriaxon (Ceftriaxon 1-22 S pirit e) e) 00:00: - [facility]I 00 [facility] Rocephin Rocephin 2020- No 1g Commo n (Ceftriaxon (Ceftriaxon 1-22 S pirit e) e) 00:00: - [facility]I 00 [facility] Rocephin Rocephin 2020- No 1g Commo n (Ceftriaxon (Ceftriaxon 1-22 S pirit e) e) 00:00: - [facility]I 00 [facility] Rocephin Rocephin 2020-03 No 1g Commo n (Ceftriaxon (Ceftriaxon 1-22 S pirit e) e) 00:00: - [facility] 00 [facility]-03 No 1g Commo n (Ceftriaxon (Ceftriaxon 1-22 S pirit e) e) 00:00: - [facility] 00 [facility] 2020-03 No 1g Commo n (Ceftriaxon (Ceftriaxon 1-22 S pirit e) e) 00:00: - [facility] 00 [facility] 2020-03 No 1g Commo n (Ceftriaxon (Ceftriaxon 1-22 S pirit e) e) 00:00: - CHI 00 [facility] 2020-03 No 1g Commo n (Ceftriaxon (Ceftriaxon 1-22 S pirit e) e) 00:00: - CHI 00 [facility] 2020-03 No 1g Commo n (Ceftriaxon (Ceftriaxon 1-22 S pirit e) e) 00:00: - CHI 00 [facility] 2020-03 No 1g Commo n (Ceftriaxon (Ceftriaxon 1-22 S pirit e) e) 00:00: - CHI 00 [facility] 2020-03 No 1g Commo n (Ceftriaxon (Ceftriaxon 1-22 S pirit e) e) 00:00: - [facility] 00 [facility] No [facility]g Commo n (Ceftriaxon (Ceftriaxon 1-22 S pirit e) e) 00:00: - [facility] 00 [facility] 2020-03 No 1g Commo n (Ceftriaxon (Ceftriaxon 1-22 S pirit e) e) 00:00: - [facility] 00 [facility] 2020[facility] No 1g Commo n (Ceftriaxon (Ceftriaxon 1-22 S pirit e) e) 00:00: - CHI 00 [facility] 2020-03 No 1g Commo n (Ceftriaxon (Ceftriaxon 1-22 S pirit e) e) 00:00: - [facility] 00 [facility] 2020-03 No 1g Commo n (Ceftriaxon (Ceftriaxon 1-22 S pirit e) e) 00:00: - [facility] 00 [facility] 2020-03 No 1g Commo n (Ceftriaxon (Ceftriaxon 1-22 S pirit e) e) 00:00: - [facility] 00 [facility] 2020-03 No 1g Commo n (Ceftriaxon (Ceftriaxon 1-22 S pirit e) e) 00:00: - [facility] 00 [facility] 2020-03 No 1g Commo n (Ceftriaxon (Ceftriaxon 1-22 S pirit e) e) 00:00: - [facility] 00 [facility] 2020-03 No 1g Commo n (Ceftriaxon (Ceftriaxon 1-22 S pirit e) e) 00:00: - [facility] 00 [facility] No 1g Commo n (Ceftriaxon (Ceftriaxon 1-22 S pirit e) e) 00:00: - [facility] 00 [facility] 2020-03 No 1g Commo n (Ceftriaxon (Ceftriaxon 1-22 S pirit e) e) 00:00: - [facility] 00 [facility] 2020-03 No 1g Commo n (Ceftriaxon (Ceftriaxon 1-22 S pirit e) e) 00:00: - [facility] 00 [facility] 2020-03 No 1g Commo n (Ceftriaxon (Ceftriaxon 1-22 S pirit e) e) 00:00: - [facility] 00 [facility] 2020-03 No 1g Commo n (Ceftriaxon (Ceftriaxon 1-22 S pirit e) e) 00:00: - [facility] 00 [facility]03 No 1g Commo n (Ceftriaxon (Ceftriaxon 1-22 S pirit e) e) 00:00: - [facility] 00 [facility] 10 [facility] 10 2020-032- No 1{table QD [facility] MG MG 03-29-30 t} 10 MG 00:00: 00:00 00 :00 [facility] 10 [facility] 10 2020-032- No 1{table QD [facility] MG MG 03-2930 t} 10 MG 00:00: 00:00 00 :00 VESIcare 10 VESIcare 10 2020-032- No 1{table QD VESIcare MG MG 03-2930 t} 10 MG 00:00: 00:00 00 :00 VESIcare 10 VESIcare 10 2020-032- No 1{table QD VESIcare MG MG 03-29-30 t} 10 MG 00:00: 00:00 00 :00 VESIcare 10 VESIcare 10 2020-03- No 1{table QD VESIcare MG MG 03-2930 t} 10 MG 00:00: 00:00 00 :00 VESIcare 10 VESIcare 10 2020-032- No 1{table QD VESIcare MG MG 03-2930 t} 10 MG 00:00: 00:00 00 :00 VESIcare 10 VESIcare 10 2020-032- No 1{table QD VESIcare MG MG 03-29-30 t} 10 MG 00:00: 00:00 00 :00 VESIcare 10 VESIcare 10 2020-032- No 1{table QD VESIcare MG MG 03-29-30 t} 10 MG 00:00: 00:00 00 :00 VESIcare 10 VESIcare 10 2020-032- No 1{table QD VESIcare MG MG 03-29-30 t} 10 MG 00:00: 00:00 00 :00 VESIcare 10 VESIcare 10 2020-032- No 1{table QD VESIcare MG MG 03-29-30 t} 10 MG 00:00: 00:00 00 :00 VESIcare 10 VESIcare 10 2020-032- No 1{table QD VESIcare MG MG 03-2930 t} 10 MG 00:00: 00:00 00 :00 VESIcare 10 VESIcare 10 2020-032- No 1{table QD VESIcare MG MG 03-29 t} 10 MG 00:00: 00:00 00 :00 VESIcare 10 VESIcare 10 2020-03 2022- No 1{table QD VESIcare MG MG 03-29 t} 10 MG 00:00: 00:00 00 :00 VESIcare 10 VESIcare 10 2020-032- No 1{table QD VESIcare MG MG 03-29 t} 10 MG 00:00: 00:00 00 :00 VESIcare 10 VESIcare 10 2020-032- No 1{table QD VESIcare MG MG 03-29 t} 10 MG 00:00: 00:00 00 :00 Macrobid Macrobid 2020-032- No QD Macrobid 100 MG 100 MG 03-29 100 MG 00:00: 00:00 00 :00 Macrobid Macrobid 2020-032- No QD Macrobid 100 MG 100 MG 03-29 100 MG 00:00: 00:00 00 :00 VESIcare 10 VESIcare 10 2020-032- No 1{table QD VESIcare MG MG 03-29 t} 10 MG 00:00: 00:00 00 :00 Macrobid Macrobid 2020-032- No QD Macrobid 100 MG 100 MG 03-29 100 MG 00:00: 00:00 00 :00 VESIcare 10 VESIcare 10 2020-032- No 1{table QD VESIcare MG MG 03-29 t} 10 MG 00:00: 00:00 00 :00 Macrobid Macrobid 2020-032- No QD Macrobid 100 MG 100 MG 03-29 100 MG 00:00: 00:00 00 :00 VESIcare 10 VESIcare 10 2020-032- No 1{table QD VESIcare MG MG 03-29 t} 10 MG 00:00: 00:00 00 :00 Macrobid Macrobid 2020-03- No QD Macrobid 100 MG 100 MG 03-29 100 MG 00:00: 00:00 00 :00 VESIcare 10 VESIcare 10 2020-032- No 1{table QD VESIcare MG MG 03-29 t} 10 MG 00:00: 00:00 00 :00 Macrobid Macrobid 2020-03- No QD Macrobid 100 MG 100 MG 03-29 100 MG 00:00: 00:00 00 :00 VESIcare 10 VESIcare 10 2020-032- No 1{table QD VESIcare MG MG 03-29 t} 10 MG 00:00: 00:00 00 :00 Macrobid Macrobid 2020-03- No QD Macrobid 100 MG 100 MG 03-29 100 MG 00:00: 00:00 00 :00 VESIcare 10 VESIcare 10 2020-03- No 1{table QD VESIcare MG MG 03-29 t} 10 MG 00:00: 00:00 00 :00 Macrobid Macrobid 2020-03- No QD Macrobid 100 MG 100 MG 03-29 100 MG 00:00: 00:00 00 :00 Macrobid Macrobid 2020-03- No QD Macrobid 100 MG 100 MG 03-29 100 MG 00:00: 00:00 00 :00 Macrobid Macrobid 2020-03- No QD Macrobid 100 MG 100 MG 03-29 100 MG 00:00: 00:00 00 :00 Macrobid Macrobid 2020-03- No QD Macrobid 100 MG 100 MG 03-29 100 MG 00:00: 00:00 00 :00 Macrobid Macrobid 2020-03- No QD Macrobid 100 MG 100 MG 03-29 100 MG 00:00: 00:00 00 :00 Macrobid Macrobid 2020-03- No QD Macrobid 100 MG 100 MG 03-29 100 MG 00:00: 00:00 00 :00 Macrobid Macrobid 2020-03- No QD Macrobid 100 MG 100 MG 03-29 100 MG 00:00: 00:00 00 :00 Macrobid Macrobid 2020-03- No QD Macrobid 100 MG 100 MG 03-29 100 MG 00:00: 00:00 00 :00 Cefpodoxime Cefpodoxime 2020-03- No 1{table BID Cefpodoxim Proxetil Proxetil 03-29 t_with_ e Proxetil 100 MG 100 MG 00:00: 00:00 food} 100 MG 00 :00 Fluconazole Fluconazole 2020-03- No 1{table QD Fluconazol 200 MG 200 MG 03-29 t} e 200 MG 00:00: 00:00 00 :00 Oxybutynin Oxybutynin 2020- No 1{table QD Oxybutynin Chloride ER Chloride ER 12-0225 t} Chloride 15 MG 15 MG 00:00: 00:00 ER 15 MG 00 :00 Oxybutynin Oxybutynin 2020- No 1{table QD Oxybutynin Chloride ER Chloride ER 12-0225 t} Chloride 15 MG 15 MG 00:00: 00:00 ER 15 MG 00 :00 Oxybutynin Oxybutynin 2020- No 1{table QD Oxybutynin Chloride ER Chloride ER 12-0225 t} Chloride 15 MG 15 MG 00:00: 00:00 ER 15 MG 00 :00 Oxybutynin Oxybutynin 2020- No 1{table QD Oxybutynin Chloride ER Chloride ER 12-0225 t} Chloride 15 MG 15 MG 00:00: 00:00 ER 15 MG 00 :00 Oxybutynin Oxybutynin 2020- No 1{table QD Oxybutynin Chloride ER Chloride ER 12-0225 t} Chloride 15 MG 15 MG 00:00: 00:00 ER 15 MG 00 :00 Oxybutynin Oxybutynin 2020- No 1{table QD Oxybutynin Chloride ER Chloride ER 12-0225 t} Chloride 15 MG 15 MG 00:00: 00:00 ER 15 MG 00 :00 Nitrofurant Nitrofurant 2020- No QD Nitrofuran oin oin 10-16 toin Macrocrysta Macrocrysta 00:00: 00:00 Macrocryst l 50 MG l 50 MG 00 :00 al 50 MG Nitrofurant Nitrofurant 2020- No QD Nitrofuran oin oin 10-16 toin Macrocrysta Macrocrysta 00:00: 00:00 Macrocryst l 50 MG l 50 MG 00 :00 al 50 MG Nitrofurant Nitrofurant 2020- No QD Nitrofuran oin oin 10-16 toin Macrocrysta Macrocrysta 00:00: 00:00 Macrocryst l 50 MG l 50 MG 00 :00 al 50 MG Nitrofurant Nitrofurant 2020- No QD Nitrofuran oin oin 10-16 toin Macrocrysta Macrocrysta 00:00: 00:00 Macrocryst l 50 MG l 50 MG 00 :00 al 50 MG Nitrofurant Nitrofurant 2020- No QD Nitrofuran oin oin 10-16 toin Macrocrysta Macrocrysta 00:00: 00:00 Macrocryst l 50 MG l 50 MG 00 :00 al 50 MG Nitrofurant Nitrofurant 2020- No QD Nitrofuran oin oin 10-16 toin Macrocrysta Macrocrysta 00:00: 00:00 Macrocryst l 50 MG l 50 MG 00 :00 al 50 MG Nitrofurant Nitrofurant 2020- No QD Nitrofuran oin oin 10-16 toin Macrocrysta Macrocrysta 00:00: 00:00 Macrocryst l 50 MG l 50 MG 00 :00 al 50 MG Nitrofurant Nitrofurant 2020- No QD Nitrofuran oin oin 10-16 toin Macrocrysta Macrocrysta 00:00: 00:00 Macrocryst l 50 MG l 50 MG 00 :00 al 50 MG Nitrofurant Nitrofurant 2020- No QD Nitrofuran oin oin 8-11 12-09 toin Macrocrysta Macrocrysta 00:00: 00:00 Macrocryst l 50 MG l 50 MG 00 :00 al 50 MG pantoprazol 2019-0 Yes 40mg Q.5D Take [address] [facility] ([facility] 17:24: (two) [facility] 40 MG 08 times [facility] tablet daily . lipase-prot 2019-0 Yes [id number]{ Take [facility] lipase} 36,000 [...] Center tablet daily . lipase-prot 2019-0 Yes [id number]{ Take [facility] lipase} 36,000 [...] Center tablet daily . lipase-prot 2019-0 Yes [id number]{ Take [facility] lipase} 36,000 [...] Center tablet daily . lipase-prot 2019-0 Yes [id number]{ Take [facility] lipase} 36,000 [...] every 4 (four) hours as needed. albuterol Yes 2.5mg Take 0.[address] [facility] ([facility]) 9-06 mLs (2.5 [facility] 2.[facility] mg/0.5 00:00: mg total) Me dical mL Nebu 00 by Center nebulizer nebulizati solution on every 4 (four) hours as needed. albuterol Yes 2.5mg Take 0.[address] [facility] ([facility]) 9-06 mLs (2.5 [facility] 2.[facility] mg/0.5 00:00: mg total) Me dical mL Nebu 00 by Center nebulizer nebulizati solution on every 4 (four) hours as needed. albuterol Yes 2.5mg Take 0.[address] [facility] ([facility]) 9-06 mLs (2.5 [facility] 2.[facility] mg/0.5 00:00: mg total) Me dical mL Nebu 00 by Center nebulizer nebulizati solution on every 4 (four) hours as needed. [facility] No 40mg [facility] (Triamcinol (Triamcinol 2-18 S pirit one) one) 00:00: - [facility] Kenalog Kenalog No 40mg [facility] (Triamcinol (Triamcinol 2-18 S pirit one) one) 00:00: - [facility] Kenalog Kenalog 2018-0 No 40mg [facility] (Triamcinol (Triamcinol 2-18 S pirit one) one) 00:00: - [facility] Kenalog Kenalog 2018-0 No 40mg [facility] (Triamcinol (Triamcinol 2-18 S pirit one) one) 00:00: - [facility] Kenalog Kenalog 2019-0 No 40mg [facility] (Triamcinol (Triamcinol 2-18 S pirit one) one) 00:00: - [facility] Kenalog Kenalog 2019-0 No 40mg [facility] (Triamcinol (Triamcinol 2-18 S pirit one) one) 00:00: - [facility] Kenalog Kenalog 2019-0 No 40mg [facility] (Triamcinol (Triamcinol 2-18 S pirit one) one) 00:00: - [facility] Kenalog Kenalog 2019-0 No 40mg [facility] (Triamcinol (Triamcinol 2-18 S pirit one) one) 00:00: - [facility] Mina Kenalog 2019-0 No 40mg [facility] (Triamcinol (Triamcinol 2-18 S pirit one) one) 00:00: - [facility] Mina Kenalog 2019-0 No 40mg [facility] (Triamcinol (Triamcinol 2-18 S pirit one) one) 00:00: - [facility] Mina Kenalog 2019-0 No 40mg [facility] (Triamcinol (Triamcinol 2-18 S pirit one) one) 00:00: - [facility] Mina Kenalog 2019-0 No 40mg [facility] (Triamcinol (Triamcinol 2-18 S pirit one) one) 00:00: - [facility] Kenregulo Kenalog 2019-0 No 40mg [facility] (Triamcinol (Triamcinol 2-18 S pirit one) one) 00:00: - [facility] Kenalog Kenalog 2019-0 No 40mg [facility] (Triamcinol (Triamcinol 2-18 S pirit one) one) 00:00: - [facility] Kenalog Kenalog 2019-0 No 40mg [facility] (Triamcinol (Triamcinol 2-18 S pirit one) one) 00:00: - [facility] Kenalog Kenalog 2019-0 No 40mg [facility] (Triamcinol (Triamcinol 2-18 S pirit one) one) 00:00: - [facility] Kenalog Kenalog 2019-0 No 40mg [facility] (Triamcinol (Triamcinol 2-18 S pirit one) one) 00:00: - [facility] Kenalog Kenalog 2019-0 No 40mg Common (Triamcinol (Triamcinol 2-18 S pirit one) one) 00:00: - [facility] Kenalog Kenalog 2019-0 No 40mg Common (Triamcinol (Triamcinol 2-18 S pirit one) one) 00:00: - [facility] Kenalog Kenalog 2019-0 No 40mg Common (Triamcinol (Triamcinol 2-18 S pirit one) one) 00:00: - [facility] Kenregulo Kenalog 2019-0 No 40mg Common (Triamcinol (Triamcinol 2-18 S pirit one) one) 00:00: - [facility] Kenalog Kenalog 2019-0 No 40mg Common (Triamcinol (Triamcinol 2-18 S pirit one) one) 00:00: - [facility] Kenalog Kenalog 2019-0 No 40mg Common (Triamcinol (Triamcinol 2-18 S pirit one) one) 00:00: - [facility] Kenregulo Kenalog 2019-0 No 40mg Common (Triamcinol (Triamcinol 2-18 S pirit one) one) 00:00: - [facility] Kenalog Kenalog 2019-0 No 40mg Common (Triamcinol (Triamcinol 2-18 S pirit one) one) 00:00: - [facility] Kenalog Kenalog 2019-0 No 40mg Common (Triamcinol (Triamcinol 2-18 S pirit one) one) 00:00: - [facility] Kenalog Kenalog 2019-0 No 40mg Common (Triamcinol (Triamcinol 2-18 S pirit one) one) 00:00: - [facility] Gentamicin Gentamicin 2018-1 No 80mg C ommon 80mg 80mg 0-30 Spirit 00:00: - [facility] Gentamicin Gentamicin 2018-1 No 80mg C ommon 80mg 80mg 0-30 Spirit 00:00: - [facility] Gentamicin Gentamicin 2018-1 No 80mg C ommon 80mg 80mg 0-30 Spirit 00:00: - [facility] Gentamicin Gentamicin 2018-1 No 80mg C ommon 80mg 80mg 0-30 Spirit 00:00: - [facility] Gentamicin Gentamicin 2018-1 No 80mg C ommon 80mg 80mg 0-30 Spirit 00:00: - [facility] Gentamicin Gentamicin 2017-1 No 80mg C ommon 80mg 80mg 0-30 Spirit 00:00: - [facility] Gentamicin Gentamicin 2017-1 No 80mg C ommon 80mg 80mg 0-30 Spirit 00:00: - [facility] Gentamicin Gentamicin 2017-1 No 80mg C ommon 80mg 80mg 0-30 Spirit 00:00: - [facility] Gentamicin Gentamicin 2017-1 No 80mg C ommon 80mg 80mg 0-30 Spirit 00:00: - [facility] Gentamicin Gentamicin 2017-1 No 80mg C ommon 80mg 80mg 0-30 Spirit 00:00: - [facility] Gentamicin Gentamicin 2017-1 No 80mg C ommon 80mg 80mg 0-30 Spirit 00:00: - [facility] Gentamicin Gentamicin 2018-1 No 80mg C ommon 80mg 80mg 0-30 Spirit 00:00: - [facility] Gentamicin Gentamicin 2017-1 No 80mg C ommon 80mg 80mg 0-30 Spirit 00:00: - [facility] Gentamicin Gentamicin 2018-1 No 80mg C ommon 80mg 80mg 0-30 Spirit 00:00: - [facility] Gentamicin Gentamicin 2017-1 No 80mg C ommon 80mg 80mg 0-30 Spirit 00:00: - [facility] Gentamicin Gentamicin 2017-1 No 80mg C ommon 80mg 80mg 0-30 Spirit 00:00: - [facility] Gentamicin Gentamicin 2017-1 No 80mg C ommon 80mg 80mg 0-30 Spirit 00:00: - [facility] Gentamicin Gentamicin 2018-1 No 80mg C ommon 80mg 80mg 0-30 Spirit 00:00: - [facility] Gentamicin Gentamicin 2017-1 No 80mg C ommon 80mg 80mg 0-30 Spirit 00:00: - [facility] Gentamicin Gentamicin 2017-1 No 80mg C ommon 80mg 80mg 030 Spirit 00:00: - [facility] Gentamicin Gentamicin 2018- No 80mg C ommon 80mg 80mg 030 Spirit 00:00: - [facility] Gentamicin Gentamicin 2017- No 80mg C ommon 80mg 80mg 030 Spirit 00:00: - [facility] Gentamicin Gentamicin 2017- No 80mg C ommon 80mg 80mg 030 Spirit 00:00: - [facility] Gentamicin Gentamicin 2017-1 No 80mg C ommon 80mg 80mg 030 Spirit 00:00: - [facility] Gentamicin Gentamicin 2017-1 No 80mg C ommon 80mg 80mg 030 Spirit 00:00: - [facility] Gentamicin Gentamicin 2017-1 No 80mg C ommon 80mg 80mg 030 Spirit 00:00: - [facility] Gentamicin Gentamicin 2017-1 No 80mg C ommon 80mg 80mg 030 Spirit 00:00: - [facility] Gentamicin Gentamicin 2018-0 No 240mg Common 80mg 80mg 09-30 Spirit 00:00: - [facility] Gentamicin Gentamicin 2018-0 No 240mg Common 80mg 80mg 09-30 Spirit 00:00: - [facility] Gentamicin Gentamicin 2018-0 No 240mg Common 80mg 80mg 09-30 Spirit 00:00: - [facility] Gentamicin Gentamicin 2018-0 No 240mg Common 80mg 80mg 09-30 Spirit 00:00: - [facility] Gentamicin Gentamicin 2018-0 No 240mg Common 80mg 80mg 09-30 Spirit 00:00: - [facility] Gentamicin Gentamicin 2018-0 No 240mg Common 80mg 80mg 09-30 Spirit 00:00: - [facility] Gentamicin Gentamicin 2018-0 No 240mg Common 80mg 80mg 09-30 Spirit 00:00: - [facility] Gentamicin Gentamicin 2018-0 No 240mg Common 80mg 80mg 09-30 Spirit 00:00: - [facility] Gentamicin Gentamicin 2018-0 No 240mg Common 80mg 80mg 09-30 Spirit 00:00: - [facility] Gentamicin Gentamicin 2018-0 No 240mg Common 80mg 80mg 09-30 Spirit 00:00: - [facility] Gentamicin Gentamicin 2018-0 No 240mg Common 80mg 80mg 09-30 Spirit 00:00: - [facility] Gentamicin Gentamicin 2018-0 No 240mg Common 80mg 80mg 09-30 Spirit 00:00: - [facility] Gentamicin Gentamicin 2018-0 No 240mg Common 80mg 80mg 09-30 Spirit 00:00: - [facility] Gentamicin Gentamicin 2018-0 No 240mg Common 80mg 80mg 09-30 Spirit 00:00: - [facility] Gentamicin Gentamicin 2018-0 No 240mg Common 80mg 80mg 09-30 Spirit 00:00: - [facility] Gentamicin Gentamicin 2018-0 No 240mg Common 80mg 80mg 09-30 Spirit 00:00: - [facility] Gentamicin Gentamicin 2018-0 No 240mg Common 80mg 80mg 09-30 Spirit 00:00: - [facility] Gentamicin Gentamicin 2018-0 No 240mg Common 80mg 80mg 09-30 Spirit 00:00: - [facility] Gentamicin Gentamicin 2018-0 No 240mg Common 80mg 80mg 09-30 Spirit 00:00: - [facility] Gentamicin Gentamicin 2018-0 No 240mg Common 80mg 80mg 09-30 Spirit 00:00: - [facility] Gentamicin Gentamicin 2018-0 No 240mg Common 80mg 80mg 09-30 Spirit 00:00: - [facility] Gentamicin Gentamicin 2018-0 No 240mg Common 80mg 80mg 09-30 Spirit 00:00: - [facility] Gentamicin Gentamicin 2018-0 No 240mg Common 80mg 80mg 09-30 Spirit 00:00: - [facility] Gentamicin Gentamicin 2018-0 No 240mg Common 80mg 80mg 09-30 Spirit 00:00: - [facility] Gentamicin Gentamicin 2018-0 No 240mg Common 80mg 80mg 09-30 Spirit 00:00: - [facility] Gentamicin Gentamicin 2018-0 No 240mg Common 80mg 80mg 09-30 [facility] 00:00: - [facility] Gentamicin Gentamicin 2018-0 No 240mg Common 80mg 80mg 09-30 Spirit 00:00: - [facility] Culturelle Culturelle No Culturelle - - - HYDROcodone HYDROcodone No 1{table QID HYDROcodon -Acetaminop -Acetaminop t_as_ne e-Acetamin hen 7.5-325 hen 7.5-325 eded} ophen MG MG 7.5-325 MG Famotidine Famotidine No 1{table BID Famotidine 10 MG 10 MG t_as_ne 10 MG eded} Pantoprazol Pantoprazol No 1{table QD Pantoprazo e Sodium 40 e Sodium 40 t} le Sodium MG MG 40 MG Culturelle Culturelle No Culturelle - - - Creon Creon No TID Creon [id number] UNIT UNIT 0 UNIT Protonix 40 Protonix 40 No 1{table QD Protonix MG MG t} 40 MG Neurontin Neurontin No 1{capsu QD Neurontin 300 MG 300 MG le_befo 300 MG re_bedt rosalia} HYDROcodone HYDROcodone No 1{table QID HYDROcodon -Acetaminop -Acetaminop t_as_ne e-Acetamin hen 7.5-325 hen 7.5-325 eded} ophen MG MG 7.5-325 MG Famotidine Famotidine No 1{table BID Famotidine 10 MG 10 MG t_as_ne 10 MG eded} Creon Creon No TID Creon [id number] UNIT UNIT 0 UNIT Pantoprazol Pantoprazol No 1{table QD Pantoprazo e Sodium 40 e Sodium 40 t} le Sodium MG MG 40 MG HYDROcodone HYDROcodone No 1{table QID HYDROcodon -Acetaminop -Acetaminop t_as_ne e-Acetamin hen 7.5-325 hen 7.5-325 eded} ophen MG MG 7.5-325 MG Famotidine Famotidine No 1{table BID Famotidine 10 MG 10 MG t_as_ne 10 MG eded} Culturelle Culturelle No Culturelle - - - Protonix 40 Protonix 40 No 1{table QD Protonix MG MG t} 40 MG Neurontin Neurontin No 1{capsu QD Neurontin 300 MG 300 MG le_befo 300 MG re_bedt rosalia} Protonix 40 Protonix 40 No 1{table QD Protonix MG MG t} 40 MG Famotidine Famotidine No 1{table BID Famotidine 10 MG 10 MG t_as_ne 10 MG eded} Pantoprazol Pantoprazol No 1{table QD Pantoprazo e Sodium 40 e Sodium 40 t} le Sodium MG MG 40 MG Pantoprazol Pantoprazol No 1{table QD Pantoprazo e Sodium 40 e Sodium 40 t} le Sodium MG MG 40 MG Protonix 40 Protonix 40 No 1{table QD Protonix MG MG t} 40 MG Famotidine Famotidine No 1{table BID Famotidine 10 MG 10 MG t_as_ne 10 MG eded} Protonix 40 Protonix 40 No 1{table QD Protonix MG MG t} 40 MG Famotidine Famotidine No 1{table BID Famotidine 10 MG 10 MG t_as_ne 10 MG eded} Pantoprazol Pantoprazol No 1{table QD Pantoprazo e Sodium 40 e Sodium 40 t} le Sodium MG MG 40 MG Pantoprazol Pantoprazol No 1{table QD Pantoprazo e Sodium 40 e Sodium 40 t} le Sodium MG MG 40 MG Protonix 40 Protonix 40 No 1{table QD Protonix MG MG t} 40 MG Famotidine Famotidine No 1{table BID Famotidine 10 MG 10 MG t_as_ne 10 MG eded} Simvastatin Simvastatin No 1{table QD Simvastati 20 MG 20 MG t_in_th n 20 MG e_eveni ng} Creon Creon No TID Creon [id number] [phone] UNIT UNIT 0 UNIT Metoprolol Metoprolol No 1{table BID Metoprolol Tartrate 50 Tartrate 50 t_with_ Tartrate MG MG food} 50 MG cloNIDine cloNIDine No 1{table QD cloNIDine HCl 0.1 MG HCl 0.1 MG t_at_be HCl 0.1 MG dtime} Culturelle Culturelle No Culturelle - - - Neurontin Neurontin No 1{capsu QD Neurontin 300 MG 300 MG le_befo 300 MG re_bedt rosalia} Zestoretic Zestoretic No 1{table QD Zestoretic 20-25 MG 20-25 MG t} 20-25 MG Protonix 40 Protonix 40 No 1{table QD Protonix MG MG t} 40 MG traZODone traZODone No 1{table QD traZODone HCl 100 MG HCl 100 MG t_at_be HCl 100 MG dtime} Citalopram Citalopram No 1{table QD Citalopram Hydrobromid Hydrobromid t} Hydrobromi e 40 MG e 40 MG de 40 MG Famotidine Famotidine No 1{table BID Famotidine 10 MG 10 MG t_as_ne 10 MG eded} Simvastatin Simvastatin No 1{table QD Simvastati 20 MG 20 MG t_in_th n 20 MG e_eveni ng} Creon Creon No TID Creon [phone] [phone] UNIT UNIT 0 UNIT Metoprolol Metoprolol No 1{table BID Metoprolol Tartrate 50 Tartrate 50 t_with_ Tartrate MG MG food} 50 MG cloNIDine cloNIDine No 1{table QD cloNIDine HCl 0.1 MG HCl 0.1 MG t_at_be HCl 0.1 MG dtime} Culturelle Culturelle No Culturelle - - - Neurontin Neurontin No 1{capsu QD Neurontin 300 MG 300 MG le_befo 300 MG re_bedt rosalia} Zestoretic Zestoretic No 1{table QD Zestoretic 20-25 MG 20-25 MG t} 20-25 MG Protonix 40 Protonix 40 No 1{table QD Protonix MG MG t} 40 MG traZODone traZODone No 1{table QD traZODone HCl 100 MG HCl 100 MG t_at_be HCl 100 MG dtime} Citalopram Citalopram No 1{table QD Citalopram Hydrobromid Hydrobromid t} Hydrobromi e 40 MG e 40 MG de 40 MG Famotidine Famotidine No 1{table BID Famotidine 10 MG 10 MG t_as_ne 10 MG eded} Simvastatin Simvastatin No 1{table QD Simvastati 20 MG 20 MG t_in_th n 20 MG e_eveni ng} Creon Creon No TID Creon [id number] UNIT UNIT 0 UNIT Metoprolol Metoprolol No 1{table BID Metoprolol Tartrate 50 Tartrate 50 t_with_ Tartrate MG MG food} 50 MG cloNIDine cloNIDine No 1{table QD cloNIDine HCl 0.1 MG HCl 0.1 MG t_at_be HCl 0.1 MG dtime} Culturelle Culturelle No Culturelle - - - Neurontin Neurontin No 1{capsu QD Neurontin 300 MG 300 MG le_befo 300 MG re_bedt rosalia} Zestoretic Zestoretic No 1{table QD Zestoretic 20-25 MG 20-25 MG t} 20-25 MG Protonix 40 Protonix 40 No 1{table QD Protonix MG MG t} 40 MG traZODone traZODone No 1{table QD traZODone HCl 100 MG HCl 100 MG t_at_be HCl 100 MG dtime} Citalopram Citalopram No 1{table QD Citalopram Hydrobromid Hydrobromid t} Hydrobromi e 40 MG e 40 MG de 40 MG Famotidine Famotidine No 1{table BID Famotidine 10 MG 10 MG t_as_ne 10 MG eded} Simvastatin Simvastatin No 1{table QD Simvastati 20 MG 20 MG t_in_th n 20 MG e_eveni ng} Culturelle Culturelle No Culturelle - - - Citalopram Citalopram No 1{table QD Citalopram Hydrobromid Hydrobromid t} Hydrobromi e 40 MG e 40 MG de 40 MG Zestoretic Zestoretic No 1{table QD Zestoretic 20-25 MG 20-25 MG t} 20-25 MG cloNIDine cloNIDine No 1{table QD cloNIDine HCl 0.1 MG HCl 0.1 MG t_at_be HCl 0.1 MG dtime} traZODone traZODone No 1{table QD traZODone HCl 100 MG HCl 100 MG t_at_be HCl 100 MG dtime} Protonix 40 Protonix 40 No 1{table QD Protonix MG MG t} 40 MG Neurontin Neurontin No 1{capsu QD Neurontin 300 MG 300 MG le_befo 300 MG re_bedt rosalia} Creon Creon No TID Creon [id number] UNIT UNIT 0 UNIT Metoprolol Metoprolol No 1{table BID Metoprolol Tartrate 50 Tartrate 50 t_with_ Tartrate MG MG food} 50 MG Famotidine Famotidine No 1{table BID Famotidine 10 MG 10 MG t_as_ne 10 MG eded} Simvastatin Simvastatin No 1{table QD Simvastati 20 MG 20 MG t_in_th n 20 MG e_eveni ng} Culturelle Culturelle No Culturelle - - - Citalopram Citalopram No 1{table QD Citalopram Hydrobromid Hydrobromid t} Hydrobromi e 40 MG e 40 MG de 40 MG Zestoretic Zestoretic No 1{table QD Zestoretic 20-25 MG 20-25 MG t} 20-25 MG cloNIDine cloNIDine No 1{table QD cloNIDine HCl 0.1 MG HCl 0.1 MG t_at_be HCl 0.1 MG dtime} traZODone traZODone No 1{table QD traZODone HCl 100 MG HCl 100 MG t_at_be HCl 100 MG dtime} Protonix 40 Protonix 40 No 1{table QD Protonix MG MG t} 40 MG Neurontin Neurontin No 1{capsu QD Neurontin 300 MG 300 MG le_befo 300 MG re_bedt rosalia} Creon Creon No TID Creon [id number] UNIT UNIT 0 UNIT Metoprolol Metoprolol No 1{table BID Metoprolol Tartrate 50 Tartrate 50 t_with_ Tartrate MG MG food} 50 MG Famotidine Famotidine No 1{table BID Famotidine 10 MG 10 MG t_as_ne 10 MG eded} Simvastatin Simvastatin No 1{table QD Simvastati 20 MG 20 MG t_in_th n 20 MG e_eveni ng} Culturelle Culturelle No Culturelle - - - Citalopram Citalopram No 1{table QD Citalopram Hydrobromid Hydrobromid t} Hydrobromi e 40 MG e 40 MG de 40 MG Zestoretic Zestoretic No 1{table QD Zestoretic 20-25 MG 20-25 MG t} 20-25 MG cloNIDine cloNIDine No 1{table QD cloNIDine HCl 0.1 MG HCl 0.1 MG t_at_be HCl 0.1 MG dtime} traZODone traZODone No 1{table QD traZODone HCl 100 MG HCl 100 MG t_at_be HCl 100 MG dtime} Protonix 40 Protonix 40 No 1{table QD Protonix MG MG t} 40 MG Neurontin Neurontin No 1{capsu QD Neurontin 300 MG 300 MG le_befo 300 MG re_bedt rosalia} Creon Creon No TID Creon [id number] [phone] UNIT UNIT 0 UNIT Metoprolol Metoprolol No 1{table BID Metoprolol Tartrate 50 Tartrate 50 t_with_ Tartrate MG MG food} 50 MG Famotidine Famotidine No 1{table BID Famotidine 10 MG 10 MG t_as_ne 10 MG eded} traZODone traZODone No 1{table QD traZODone HCl 100 MG HCl 100 MG t_at_be HCl 100 MG dtime} Culturelle Culturelle No Culturelle - - - Famotidine Famotidine No 1{table BID Famotidine 10 MG 10 MG t_as_ne 10 MG eded} Zestoretic Zestoretic No 1{table QD Zestoretic 20-25 MG 20-25 MG t} 20-25 MG Citalopram Citalopram No 1{table QD Citalopram Hydrobromid Hydrobromid t} Hydrobromi e 40 MG e 40 MG de 40 MG Creon Creon No TID Creon [id number] [id number] UNIT UNIT 0 UNIT cloNIDine cloNIDine No 1{table QD cloNIDine HCl 0.1 MG HCl 0.1 MG t_at_be HCl 0.1 MG dtime} Simvastatin Simvastatin No 1{table QD Simvastati 20 MG 20 MG t_in_th n 20 MG e_eveni ng} Metoprolol Metoprolol No 1{table BID Metoprolol Tartrate 50 Tartrate 50 t_with_ Tartrate MG MG food} 50 MG Protonix 40 Protonix 40 No 1{table QD Protonix MG MG t} 40 MG Neurontin Neurontin No 1{capsu QD Neurontin 300 MG 300 MG le_befo 300 MG re_bedt rosalia} traZODone traZODone No 1{table QD traZODone HCl 100 MG HCl 100 MG t_at_be HCl 100 MG dtime} Culturelle Culturelle No Culturelle - - - Famotidine Famotidine No 1{table BID Famotidine 10 MG 10 MG t_as_ne 10 MG eded} Zestoretic Zestoretic No 1{table QD Zestoretic 20-25 MG 20-25 MG t} 20-25 MG Citalopram Citalopram No 1{table QD Citalopram Hydrobromid Hydrobromid t} Hydrobromi e 40 MG e 40 MG de 40 MG Creon Creon No TID Creon [id number] [phone] UNIT UNIT 0 UNIT cloNIDine cloNIDine No 1{table QD cloNIDine HCl 0.1 MG HCl 0.1 MG t_at_be HCl 0.1 MG dtime} Simvastatin Simvastatin No 1{table QD Simvastati 20 MG 20 MG t_in_th n 20 MG e_eveni ng} Metoprolol Metoprolol No 1{table BID Metoprolol Tartrate 50 Tartrate 50 t_with_ Tartrate MG MG food} 50 MG Protonix 40 Protonix 40 No 1{table QD Protonix MG MG t} 40 MG Neurontin Neurontin No 1{capsu QD Neurontin 300 MG 300 MG le_befo 300 MG re_bedt rosalia} Metoprolol Metoprolol No 1{table BID Metoprolol Tartrate 50 Tartrate 50 t_with_ Tartrate MG MG food} 50 MG cloNIDine cloNIDine No 1{table QD cloNIDine HCl 0.1 MG HCl 0.1 MG t_at_be HCl 0.1 MG dtime} Zestoretic Zestoretic No 1{table QD Zestoretic 20-25 MG 20-25 MG t} 20-25 MG Citalopram Citalopram No 1{table QD Citalopram Hydrobromid Hydrobromid t} Hydrobromi e 40 MG e 40 MG de 40 MG Creon Creon No TID Creon [id number] [phone] UNIT UNIT 0 UNIT traZODone traZODone No 1{table QD traZODone HCl 100 MG HCl 100 MG t_at_be HCl 100 MG dtime} Famotidine Famotidine No 1{table BID Famotidine 10 MG 10 MG t_as_ne 10 MG eded} Neurontin Neurontin No 1{capsu QD Neurontin 300 MG 300 MG le_befo 300 MG re_bedt rosalia} Culturelle Culturelle No Culturelle - - - Simvastatin Simvastatin No 1{table QD Simvastati 20 MG 20 MG t_in_th n 20 MG e_eveni ng} Protonix 40 Protonix 40 No 1{table QD Protonix MG MG t} 40 MG Metoprolol Metoprolol No 1{table BID Metoprolol Tartrate 50 Tartrate 50 t_with_ Tartrate MG MG food} 50 MG Culturelle Culturelle No Culturelle - - - Famotidine Famotidine No 1{table BID Famotidine 10 MG 10 MG t_as_ne 10 MG eded} Simvastatin Simvastatin No 1{table QD Simvastati 20 MG 20 MG t_in_th n 20 MG e_eveni ng} Protonix 40 Protonix 40 No 1{table QD Protonix MG MG t} 40 MG Zestoretic Zestoretic No 1{table QD Zestoretic 20-25 MG 20-25 MG t} 20-25 MG Neurontin Neurontin No 1{capsu QD Neurontin 300 MG 300 MG le_befo 300 MG re_bedt rosalia} Citalopram Citalopram No 1{table QD Citalopram Hydrobromid Hydrobromid t} Hydrobromi e 40 MG e 40 MG de 40 MG Creon Creon No TID Creon [phone] UNIT UNIT 0 UNIT cloNIDine cloNIDine No 1{table QD cloNIDine HCl 0.1 MG HCl 0.1 MG t_at_be HCl 0.1 MG dtime} traZODone traZODone No 1{table QD traZODone HCl 100 MG HCl 100 MG t_at_be HCl 100 MG dtime} Metoprolol Metoprolol No 1{table BID Metoprolol Tartrate 50 Tartrate 50 t_with_ Tartrate MG MG food} 50 MG Culturelle Culturelle No Culturelle - - - Famotidine Famotidine No 1{table BID Famotidine 10 MG 10 MG t_as_ne 10 MG eded} Protonix 40 Protonix 40 No 1{table QD Protonix MG MG t} 40 MG cloNIDine cloNIDine No 1{table QD cloNIDine HCl 0.1 MG HCl 0.1 MG t_at_be HCl 0.1 MG dtime} Creon Creon No TID Creon [id number] UNIT UNIT 0 UNIT Citalopram Citalopram No 1{table QD Citalopram Hydrobromid Hydrobromid t} Hydrobromi e 40 MG e 40 MG de 40 MG Zestoretic Zestoretic No 1{table QD Zestoretic 20-25 MG 20-25 MG t} 20-25 MG traZODone traZODone No 1{table QD traZODone HCl 100 MG HCl 100 MG t_at_be HCl 100 MG dtime} Simvastatin Simvastatin No 1{table QD Simvastati 20 MG 20 MG t_in_th n 20 MG e_eveni ng} Neurontin Neurontin No 1{capsu QD Neurontin 300 MG 300 MG le_befo 300 MG re_bedt rosalia} Metoprolol Metoprolol No 1{table BID Metoprolol Tartrate 50 Tartrate 50 t_with_ Tartrate MG MG food} 50 MG Culturelle Culturelle No Culturelle - - - Famotidine Famotidine No 1{table BID Famotidine 10 MG 10 MG t_as_ne 10 MG eded} Protonix 40 Protonix 40 No 1{table QD Protonix MG MG t} 40 MG cloNIDine cloNIDine No 1{table QD cloNIDine HCl 0.1 MG HCl 0.1 MG t_at_be HCl 0.1 MG dtime} Creon Creon No TID Creon [phone] UNIT UNIT 0 UNIT Citalopram Citalopram No 1{table QD Citalopram Hydrobromid Hydrobromid t} Hydrobromi e 40 MG e 40 MG de 40 MG Zestoretic Zestoretic No 1{table QD Zestoretic 20-25 MG 20-25 MG t} 20-25 MG traZODone traZODone No 1{table QD traZODone HCl 100 MG HCl 100 MG t_at_be HCl 100 MG dtime} Simvastatin Simvastatin No 1{table QD Simvastati 20 MG 20 MG t_in_th n 20 MG e_eveni ng} Neurontin Neurontin No 1{capsu QD Neurontin 300 MG 300 MG le_befo 300 MG re_bedt rosalia} Metoprolol Metoprolol No 1{table BID Metoprolol Tartrate 50 Tartrate 50 t_with_ Tartrate MG MG food} 50 MG Culturelle Culturelle No Culturelle - - - Famotidine Famotidine No 1{table BID Famotidine 10 MG 10 MG t_as_ne 10 MG eded} Protonix 40 Protonix 40 No 1{table QD Protonix MG MG t} 40 MG cloNIDine cloNIDine No 1{table QD cloNIDine HCl 0.1 MG HCl 0.1 MG t_at_be HCl 0.1 MG dtime} Creon Creon No TID Creon [phone] UNIT UNIT 0 UNIT Citalopram Citalopram No 1{table QD Citalopram Hydrobromid Hydrobromid t} Hydrobromi e 40 MG e 40 MG de 40 MG Zestoretic Zestoretic No 1{table QD Zestoretic 20-25 MG 20-25 MG t} 20-25 MG traZODone traZODone No 1{table QD traZODone HCl 100 MG HCl 100 MG t_at_be HCl 100 MG dtime} Simvastatin Simvastatin No 1{table QD Simvastati 20 MG 20 MG t_in_th n 20 MG e_eveni ng} Neurontin Neurontin No 1{capsu QD Neurontin 300 MG 300 MG le_befo 300 MG re_bedt rosalia} Metoprolol Metoprolol No 1{table BID Metoprolol Tartrate 50 Tartrate 50 t_with_ Tartrate MG MG food} 50 MG Culturelle Culturelle No Culturelle - - - Famotidine Famotidine No 1{table BID Famotidine 10 MG 10 MG t_as_ne 10 MG eded} Protonix 40 Protonix 40 No 1{table QD Protonix MG MG t} 40 MG cloNIDine cloNIDine No 1{table QD cloNIDine HCl 0.1 MG HCl 0.1 MG t_at_be HCl 0.1 MG dtime} Creon Creon No TID Creon [phone] UNIT UNIT 0 UNIT traZODone traZODone No 1{table QD traZODone HCl 100 MG HCl 100 MG t_at_be HCl 100 MG dtime} Zestoretic Zestoretic No 1{table QD Zestoretic 20-25 MG 20-25 MG t} 20-25 MG Simvastatin Simvastatin No 1{table QD Simvastati 20 MG 20 MG t_in_th n 20 MG e_eveni ng} Neurontin Neurontin No 1{capsu QD Neurontin 300 MG 300 MG le_befo 300 MG re_bedt rosalia} Citalopram Citalopram No 1{table QD Citalopram Hydrobromid Hydrobromid t} Hydrobromi e 40 MG e 40 MG de 40 MG Famotidine Famotidine No 1{table BID Famotidine 10 MG 10 MG t_as_ne 10 MG eded} Simvastatin Simvastatin No 1{table QD Simvastati 20 MG 20 MG t_in_th n 20 MG e_eveni ng} Neurontin Neurontin No 1{capsu QD Neurontin 300 MG 300 MG le_befo 300 MG re_bedt rosalia} traZODone traZODone No 1{table QD traZODone HCl 100 MG HCl 100 MG t_at_be HCl 100 MG dtime} cloNIDine cloNIDine No 1{table QD cloNIDine HCl 0.1 MG HCl 0.1 MG t_at_be HCl 0.1 MG dtime} Protonix 40 Protonix 40 No 1{table QD Protonix MG MG t} 40 MG Creon Creon No TID Creon [phone] UNIT UNIT 0 UNIT Zestoretic Zestoretic No 1{table QD Zestoretic 20-25 MG 20-25 MG t} 20-25 MG Culturelle Culturelle No Culturelle - - - Metoprolol Metoprolol No 1{table BID Metoprolol Tartrate 50 Tartrate 50 t_with_ Tartrate MG MG food} 50 MG Citalopram Citalopram No 1{table QD Citalopram Hydrobromid Hydrobromid t} Hydrobromi e 40 MG e 40 MG de 40 MG traZODone traZODone No 1{table QD traZODone HCl 100 MG HCl 100 MG t_at_be HCl 100 MG dtime} Neurontin Neurontin No 1{capsu QD Neurontin 300 MG 300 MG le_befo 300 MG re_bedt rosalia} cloNIDine cloNIDine No 1{table QD cloNIDine HCl 0.1 MG HCl 0.1 MG t_at_be HCl 0.1 MG dtime} Metoprolol Metoprolol No 1{table BID Metoprolol Tartrate 50 Tartrate 50 t_with_ Tartrate MG MG food} 50 MG Culturelle Culturelle No Culturelle - - - Famotidine Famotidine No 1{table BID Famotidine 10 MG 10 MG t_as_ne 10 MG eded} Creon Creon No TID Creon [phone] UNIT UNIT 0 UNIT Citalopram Citalopram No 1{table QD Citalopram Hydrobromid Hydrobromid t} Hydrobromi e 40 MG e 40 MG de 40 MG Protonix 40 Protonix 40 No 1{table QD Protonix MG MG t} 40 MG Simvastatin Simvastatin No 1{table QD Simvastati 20 MG 20 MG t_in_th n 20 MG e_eveni ng} Zestoretic Zestoretic No 1{table QD Zestoretic 20-25 MG 20-25 MG t} 20-25 MG traZODone traZODone No 1{table QD traZODone HCl 100 MG HCl 100 MG t_at_be HCl 100 MG dtime} Neurontin Neurontin No 1{capsu QD Neurontin 300 MG 300 MG le_befo 300 MG re_bedt rosalia} cloNIDine cloNIDine No 1{table QD cloNIDine HCl 0.1 MG HCl 0.1 MG t_at_be HCl 0.1 MG dtime} Metoprolol Metoprolol No 1{table BID Metoprolol Tartrate 50 Tartrate 50 t_with_ Tartrate MG MG food} 50 MG Culturelle Culturelle No Culturelle - - - Famotidine Famotidine No 1{table BID Famotidine 10 MG 10 MG t_as_ne 10 MG eded} Creon Creon No TID Creon [phone] UNIT UNIT 0 UNIT Citalopram Citalopram No 1{table QD Citalopram Hydrobromid Hydrobromid t} Hydrobromi e 40 MG e 40 MG de 40 MG Protonix 40 Protonix 40 No 1{table QD Protonix MG MG t} 40 MG Simvastatin Simvastatin No 1{table QD Simvastati 20 MG 20 MG t_in_th n 20 MG e_eveni ng} Zestoretic Zestoretic No 1{table QD Zestoretic 20-25 MG 20-25 MG t} 20-25 MG traZODone traZODone No 1{table QD traZODone HCl 100 MG HCl 100 MG t_at_be HCl 100 MG dtime} Neurontin Neurontin No 1{capsu QD Neurontin 300 MG 300 MG le_befo 300 MG re_bedt rosalia} cloNIDine cloNIDine No 1{table QD cloNIDine HCl 0.1 MG HCl 0.1 MG t_at_be HCl 0.1 MG dtime} Metoprolol Metoprolol No 1{table BID Metoprolol Tartrate 50 Tartrate 50 t_with_ Tartrate MG MG food} 50 MG Culturelle Culturelle No Culturelle - - - Famotidine Famotidine No 1{table BID Famotidine 10 MG 10 MG t_as_ne 10 MG eded} Creon Creon No TID Creon [phone] UNIT UNIT 0 UNIT Citalopram Citalopram No 1{table QD Citalopram Hydrobromid Hydrobromid t} Hydrobromi e 40 MG e 40 MG de 40 MG Protonix 40 Protonix 40 No 1{table QD Protonix MG MG t} 40 MG Simvastatin Simvastatin No 1{table QD Simvastati 20 MG 20 MG t_in_th n 20 MG e_eveni ng} Zestoretic Zestoretic No 1{table QD Zestoretic 20-25 MG 20-25 MG t} 20-25 MG traZODone traZODone No 1{table QD traZODone HCl 100 MG HCl 100 MG t_at_be HCl 100 MG dtime} Neurontin Neurontin No 1{capsu QD Neurontin 300 MG 300 MG le_befo 300 MG re_bedt rosalia} cloNIDine cloNIDine No 1{table QD cloNIDine HCl 0.1 MG HCl 0.1 MG t_at_be HCl 0.1 MG dtime} Metoprolol Metoprolol No 1{table BID Metoprolol Tartrate 50 Tartrate 50 t_with_ Tartrate MG MG food} 50 MG Culturelle Culturelle No Culturelle - - - Famotidine Famotidine No 1{table BID Famotidine 10 MG 10 MG t_as_ne 10 MG eded} Creon Creon No TID Creon [phone] UNIT UNIT 0 UNIT Citalopram Citalopram No 1{table QD Citalopram Hydrobromid Hydrobromid t} Hydrobromi e 40 MG e 40 MG de 40 MG Protonix 40 Protonix 40 No 1{table QD Protonix MG MG t} 40 MG Simvastatin Simvastatin No 1{table QD Simvastati 20 MG 20 MG t_in_th n 20 MG e_eveni ng} Zestoretic Zestoretic No 1{table QD Zestoretic 20-25 MG 20-25 MG t} 20-25 MG traZODone traZODone No 1{table QD traZODone HCl 100 MG HCl 100 MG t_at_be HCl 100 MG dtime} Neurontin Neurontin No 1{capsu QD Neurontin 300 MG 300 MG le_befo 300 MG re_bedt rosalia} cloNIDine cloNIDine No 1{table QD cloNIDine HCl 0.1 MG HCl 0.1 MG t_at_be HCl 0.1 MG dtime} Metoprolol Metoprolol No 1{table BID Metoprolol Tartrate 50 Tartrate 50 t_with_ Tartrate MG MG food} 50 MG Culturelle Culturelle No Culturelle - - - Famotidine Famotidine No 1{table BID Famotidine 10 MG 10 MG t_as_ne 10 MG eded} Creon Creon No TID Creon [phone] UNIT UNIT 0 UNIT Citalopram Citalopram No 1{table QD Citalopram Hydrobromid Hydrobromid t} Hydrobromi e 40 MG e 40 MG de 40 MG Protonix 40 Protonix 40 No 1{table QD Protonix MG MG t} 40 MG Simvastatin Simvastatin No 1{table QD Simvastati 20 MG 20 MG t_in_th n 20 MG e_eveni ng} Zestoretic Zestoretic No 1{table QD Zestoretic 20-25 MG 20-25 MG t} 20-25 MG Metoprolol Metoprolol No 1{table BID Metoprolol Tartrate 50 Tartrate 50 t_with_ Tartrate MG MG food} 50 MG traZODone traZODone No 1{table QD traZODone HCl 100 MG HCl 100 MG t_at_be HCl 100 MG dtime} Culturelle Culturelle No Culturelle - - - cloNIDine cloNIDine No 1{table QD cloNIDine HCl 0.1 MG HCl 0.1 MG t_at_be HCl 0.1 MG dtime} Zestoretic Zestoretic No 1{table QD Zestoretic 20-25 MG 20-25 MG t} 20-25 MG Simvastatin Simvastatin No 1{table QD Simvastati 20 MG 20 MG t_in_th n 20 MG e_eveni ng} Famotidine Famotidine No 1{table BID Famotidine 10 MG 10 MG t_as_ne 10 MG eded} Creon Creon No TID Creon [phone] UNIT UNIT 0 UNIT Citalopram Citalopram No 1{table QD Citalopram Hydrobromid Hydrobromid t} Hydrobromi e 40 MG e 40 MG de 40 MG Protonix 40 Protonix 40 No 1{table QD Protonix MG MG t} 40 MG Neurontin Neurontin No 1{capsu QD Neurontin 300 MG 300 MG le_befo 300 MG re_bedt rosalia} Metoprolol Metoprolol No 1{table BID Metoprolol Tartrate 50 Tartrate 50 t_with_ Tartrate MG MG food} 50 MG Creon Creon No TID Creon [phone] UNIT UNIT 0 UNIT Culturelle Culturelle No Culturelle - - - cloNIDine cloNIDine No 1{table QD cloNIDine HCl 0.1 MG HCl 0.1 MG t_at_be HCl 0.1 MG dtime} Simvastatin Simvastatin No 1{table QD Simvastati 20 MG 20 MG t_in_th n 20 MG e_eveni ng} traZODone traZODone No 1{table QD traZODone HCl 100 MG HCl 100 MG t_at_be HCl 100 MG dtime} Citalopram Citalopram No 1{table QD Citalopram Hydrobromid Hydrobromid t} Hydrobromi e 40 MG e 40 MG de 40 MG Neurontin Neurontin No 1{capsu QD Neurontin 300 MG 300 MG le_befo 300 MG re_bedt rosalia} Zestoretic Zestoretic No 1{table QD Zestoretic 20-25 MG 20-25 MG t} 20-25 MG Protonix 40 Protonix 40 No 1{table QD Protonix MG MG t} 40 MG Famotidine Famotidine No 1{table BID Famotidine 10 MG 10 MG t_as_ne 10 MG eded} Metoprolol Metoprolol No 1{table BID Metoprolol Tartrate 50 Tartrate 50 t_with_ Tartrate MG MG food} 50 MG Creon Creon No TID Creon [phone] UNIT UNIT 0 UNIT Culturelle Culturelle No Culturelle - - - cloNIDine cloNIDine No 1{table QD cloNIDine HCl 0.1 MG HCl 0.1 MG t_at_be HCl 0.1 MG dtime} Simvastatin Simvastatin No 1{table QD Simvastati 20 MG 20 MG t_in_th n 20 MG e_eveni ng} traZODone traZODone No 1{table QD traZODone HCl 100 MG HCl 100 MG t_at_be HCl 100 MG dtime} Citalopram Citalopram No 1{table QD Citalopram Hydrobromid Hydrobromid t} Hydrobromi e 40 MG e 40 MG de 40 MG Neurontin Neurontin No 1{capsu QD Neurontin 300 MG 300 MG le_befo 300 MG re_bedt rosalia} Zestoretic Zestoretic No 1{table QD Zestoretic 20-25 MG 20-25 MG t} 20-25 MG Protonix 40 Protonix 40 No 1{table QD Protonix MG MG t} 40 MG Famotidine Famotidine No 1{table BID Famotidine 10 MG 10 MG t_as_ne 10 MG eded} Simvastatin Simvastatin No 1{table QD Simvastati 20 MG 20 MG t_in_th n 20 MG e_eveni ng} Famotidine Famotidine No 1{table BID Famotidine 10 MG 10 MG t_as_ne 10 MG eded} Culturelle Culturelle No Culturelle - - - cloNIDine cloNIDine No 1{table QD cloNIDine HCl 0.1 MG HCl 0.1 MG t_at_be HCl 0.1 MG dtime} Zestoretic Zestoretic No 1{table QD Zestoretic 20-25 MG 20-25 MG t} 20-25 MG Neurontin Neurontin No 1{capsu QD Neurontin 300 MG 300 MG le_befo 300 MG re_bedt rosalia} traZODone traZODone No 1{table QD traZODone HCl 100 MG HCl 100 MG t_at_be HCl 100 MG dtime} Citalopram Citalopram No 1{table QD Citalopram Hydrobromid Hydrobromid t} Hydrobromi e 40 MG e 40 MG de 40 MG Protonix 40 Protonix 40 No 1{table QD Protonix MG MG t} 40 MG Creon Creon No TID Creon [phone] UNIT UNIT 0 UNIT Metoprolol Metoprolol No 1{table BID Metoprolol Tartrate 50 Tartrate 50 t_with_ Tartrate MG MG food} 50 MG Metoprolol Metoprolol No 1{table BID Metoprolol Tartrate 50 Tartrate 50 t_with_ Tartrate MG MG food} 50 MG Creon Creon No TID Creon [phone] UNIT UNIT 0 UNIT Culturelle Culturelle No Culturelle - - - Protonix 40 Protonix 40 No 1{table QD Protonix MG MG t} 40 MG cloNIDine cloNIDine No 1{table QD cloNIDine HCl 0.1 MG HCl 0.1 MG t_at_be HCl 0.1 MG dtime} Simvastatin Simvastatin No 1{table QD Simvastati 20 MG 20 MG t_in_th n 20 MG e_eveni ng} traZODone traZODone No 1{table QD traZODone HCl 100 MG HCl 100 MG t_at_be HCl 100 MG dtime} Citalopram Citalopram No 1{table QD Citalopram Hydrobromid Hydrobromid t} Hydrobromi e 40 MG e 40 MG de 40 MG Neurontin Neurontin No 1{capsu QD Neurontin 300 MG 300 MG le_befo 300 MG re_bedt rosalia} Zestoretic Zestoretic No 1{table QD Zestoretic 20-25 MG 20-25 MG t} 20-25 MG Famotidine Famotidine No 1{table BID Famotidine 10 MG 10 MG t_as_ne 10 MG eded} Simvastatin Simvastatin No 1{table QD Simvastati 20 MG 20 MG t_in_th n 20 MG e_eveni ng} Famotidine Famotidine No 1{table BID Famotidine 10 MG 10 MG t_as_ne 10 MG eded} Culturelle Culturelle No Culturelle - - - cloNIDine cloNIDine No 1{table QD cloNIDine HCl 0.1 MG HCl 0.1 MG t_at_be HCl 0.1 MG dtime} Citalopram Citalopram No 1{table QD Citalopram Hydrobromid Hydrobromid t} Hydrobromi e 40 MG e 40 MG de 40 MG Zestoretic Zestoretic No 1{table QD Zestoretic 20-25 MG 20-25 MG t} 20-25 MG Neurontin Neurontin No 1{capsu QD Neurontin 300 MG 300 MG le_befo 300 MG re_bedt rosalia} Metoprolol Metoprolol No 1{table BID Metoprolol Tartrate 50 Tartrate 50 t_with_ Tartrate MG MG food} 50 MG traZODone traZODone No 1{table QD traZODone HCl 100 MG HCl 100 MG t_at_be HCl 100 MG dtime} Protonix 40 Protonix 40 No 1{table QD Protonix MG MG t} 40 MG Creon Creon No TID Creon [phone] UNIT UNIT 0 UNIT HYDROcodone HYDROcodone No 1{table QID HYDROcodon -Acetaminop -Acetaminop t_as_ne e-Acetamin hen 7.5-325 hen 7.5-325 eded} ophen MG MG 7.5-325 MG Pantoprazol Pantoprazol No 1{table QD Pantoprazo e Sodium 40 e Sodium 40 t} le Sodium MG MG 40 MG Pantoprazol Pantoprazol No 1{table QD Pantoprazo e Sodium 40 e Sodium 40 t} le Sodium MG MG 40 MG HYDROcodone HYDROcodone No 1{table QID HYDROcodon -Acetaminop -Acetaminop t_as_ne e-Acetamin hen 7.5-325 hen 7.5-325 eded} ophen MG MG 7.5-325 MG Pantoprazol Pantoprazol No 1{table QD Pantoprazo e Sodium 40 e Sodium 40 t} le Sodium MG MG 40 MG HYDROcodone HYDROcodone No 1{table QID HYDROcodon -Acetaminop -Acetaminop t_as_ne e-Acetamin hen 7.5-325 hen 7.5-325 eded} ophen MG MG 7.5-325 MG HYDROcodone HYDROcodone No 1{table QID HYDROcodon -Acetaminop -Acetaminop t_as_ne e-Acetamin hen 7.5-325 hen 7.5-325 eded} ophen MG MG 7.5-325 MG Protonix 40 Protonix 40 No 1{table QD Protonix MG MG t} 40 MG Famotidine Famotidine No 1{table BID Famotidine 10 MG 10 MG t_as_ne 10 MG eded} Culturelle Culturelle No Culturelle - - - Pantoprazol Pantoprazol No 1{table QD Pantoprazo e Sodium 40 e Sodium 40 t} le Sodium MG MG 40 MG Creon Creon No TID Creon [id number] [phone] UNIT UNIT 0 UNIT Neurontin Neurontin No 1{capsu QD Neurontin 300 MG 300 MG le_befo 300 MG re_bedt rosalia} HYDROcodone HYDROcodone No 1{table QID HYDROcodon -Acetaminop -Acetaminop t_as_ne e-Acetamin hen 7.5-325 hen 7.5-325 eded} ophen MG MG 7.5-325 MG Protonix 40 Protonix 40 No 1{table QD Protonix MG MG t} 40 MG Famotidine Famotidine No 1{table BID Famotidine 10 MG 10 MG t_as_ne 10 MG eded} Culturelle Culturelle No Culturelle - - - Pantoprazol Pantoprazol No 1{table QD Pantoprazo e Sodium 40 e Sodium 40 t} le Sodium MG MG 40 MG Creon Creon No TID Creon [phone] UNIT UNIT 0 UNIT Neurontin Neurontin No 1{capsu QD Neurontin 300 MG 300 MG le_befo 300 MG re_bedt rosalia} HYDROcodone HYDROcodone No 1{table QID HYDROcodon -Acetaminop -Acetaminop t_as_ne e-Acetamin hen 7.5-325 hen 7.5-325 eded} ophen MG MG 7.5-325 MG Protonix 40 Protonix 40 No 1{table QD Protonix MG MG t} 40 MG Famotidine Famotidine No 1{table BID Famotidine 10 MG 10 MG t_as_ne 10 MG eded} Culturelle Culturelle No Culturelle - - - Pantoprazol Pantoprazol No 1{table QD Pantoprazo e Sodium 40 e Sodium 40 t} le Sodium MG MG 40 MG Creon Creon No TID Creon [phone] UNIT UNIT 0 UNIT Neurontin Neurontin No 1{capsu QD Neurontin 300 MG 300 MG le_befo 300 MG re_bedt rosalia} HYDROcodone HYDROcodone No 1{table QID HYDROcodon -Acetaminop -Acetaminop t_as_ne e-Acetamin hen 7.5-325 hen 7.5-325 eded} ophen MG MG 7.5-325 MG Protonix 40 Protonix 40 No 1{table QD Protonix MG MG t} 40 MG Famotidine Famotidine No 1{table BID Famotidine 10 MG 10 MG t_as_ne 10 MG eded} Culturelle Culturelle No Culturelle - - - Pantoprazol Pantoprazol No 1{table QD Pantoprazo e Sodium 40 e Sodium 40 t} le Sodium MG MG 40 MG Creon Creon No TID Creon [phone] UNIT UNIT 0 UNIT Neurontin Neurontin No 1{capsu QD Neurontin 300 MG 300 MG le_befo 300 MG re_bedt rosalia} HYDROcodone HYDROcodone No 1{table QID HYDROcodon -Acetaminop -Acetaminop t_as_ne e-Acetamin hen 7.5-325 hen 7.5-325 eded} ophen MG MG 7.5-325 MG Protonix 40 Protonix 40 No 1{table QD Protonix MG MG t} 40 MG Famotidine Famotidine No 1{table BID Famotidine 10 MG 10 MG t_as_ne 10 MG eded} Culturelle Culturelle No Culturelle - - - Pantoprazol Pantoprazol No 1{table QD Pantoprazo e Sodium 40 e Sodium 40 t} le Sodium MG MG 40 MG Creon Creon No TID Creon [id number] UNIT UNIT 0 UNIT Neurontin Neurontin No 1{capsu QD Neurontin 300 MG 300 MG le_befo 300 MG re_bedt rosalia} HYDROcodone HYDROcodone No 1{table QID HYDROcodon -Acetaminop -Acetaminop t_as_ne e-Acetamin hen 7.5-325 hen 7.5-325 eded} ophen MG MG 7.5-325 MG Famotidine Famotidine No 1{table BID Famotidine 10 MG 10 MG t_as_ne 10 MG eded} Culturelle Culturelle No Culturelle - - - Protonix 40 Protonix 40 No 1{table QD Protonix MG MG t} 40 MG Creon Creon No TID Creon [id number] [id number] UNIT UNIT 0 UNIT Neurontin Neurontin No 1{capsu QD Neurontin 300 MG 300 MG le_befo 300 MG re_bedt rosalia} Pantoprazol Pantoprazol No 1{table QD Pantoprazo e Sodium 40 e Sodium 40 t} le Sodium MG MG 40 MG HYDROcodone HYDROcodone No 1{table QID HYDROcodon -Acetaminop -Acetaminop t_as_ne e-Acetamin hen 7.5-325 hen 7.5-325 eded} ophen MG MG 7.5-325 MG Famotidine Famotidine No 1{table BID Famotidine 10 MG 10 MG t_as_ne 10 MG eded} Culturelle Culturelle No Culturelle - - - Protonix 40 Protonix 40 No 1{table QD Protonix MG MG t} 40 MG Creon Creon No TID Creon [id number] UNIT UNIT 0 UNIT Neurontin Neurontin No 1{capsu QD Neurontin 300 MG 300 MG le_befo 300 MG re_bedt rosalia} Pantoprazol Pantoprazol No 1{table QD Pantoprazo e Sodium 40 e Sodium 40 t} le Sodium MG MG 40 MG Pantoprazol Pantoprazol No 1{table QD Pantoprazo e Sodium 40 e Sodium 40 t} le Sodium MG MG 40 MG Neurontin Neurontin No 1{capsu QD Neurontin 300 MG 300 MG le_befo 300 MG re_bedt rosalia} Creon Creon No TID Creon [id number] UNIT UNIT 0 UNIT HYDROcodone HYDROcodone No 1{table QID HYDROcodon -Acetaminop -Acetaminop t_as_ne e-Acetamin hen 7.5-325 hen 7.5-325 eded} ophen MG MG 7.5-325 MG Famotidine Famotidine No 1{table BID Famotidine 10 MG 10 MG t_as_ne 10 MG eded} Culturelle Culturelle No Culturelle - - - Protonix 40 Protonix 40 No 1{table QD Protonix MG MG t} 40 MG Creon Creon No TID Creon [id number] UNIT UNIT 0 UNIT Neurontin Neurontin No 1{capsu QD Neurontin 300 MG 300 MG le_befo 300 MG re_bedt rosalia} Pantoprazol Pantoprazol No 1{table QD Pantoprazo e Sodium 40 e Sodium 40 t} le Sodium MG MG 40 MG Famotidine Famotidine No 1{table BID Famotidine 10 MG 10 MG t_as_ne 10 MG eded} Culturelle Culturelle No Culturelle - - - HYDROcodone HYDROcodone No 1{table QID HYDROcodon -Acetaminop -Acetaminop t_as_ne e-Acetamin hen 7.5-325 hen 7.5-325 eded} ophen MG MG 7.5-325 MG Protonix 40 Protonix 40 No 1{table QD Protonix MG MG t} 40 MG Creon Creon No TID Creon [id number] [phone] UNIT UNIT 0 UNIT Neurontin Neurontin No 1{capsu QD Neurontin 300 MG 300 MG le_befo 300 MG re_bedt rosalia} Pantoprazol Pantoprazol No 1{table QD Pantoprazo e Sodium 40 e Sodium 40 t} le Sodium MG MG 40 MG Famotidine Famotidine No 1{table BID Famotidine 10 MG 10 MG t_as_ne 10 MG eded} Culturelle Culturelle No Culturelle - - - HYDROcodone HYDROcodone No 1{table QID HYDROcodon -Acetaminop -Acetaminop t_as_ne e-Acetamin hen 7.5-325 hen 7.5-325 eded} ophen MG MG 7.5-325 MG Protonix 40 Protonix 40 No 1{table QD Protonix MG MG t} 40 MG Pantoprazol Pantoprazol No 1{table QD Pantoprazo e Sodium 40 e Sodium 40 t} le Sodium MG MG 40 MG Creon Creon No TID Creon [id number] UNIT UNIT 0 UNIT Protonix 40 Protonix 40 No 1{table QD Protonix MG MG t} 40 MG Neurontin Neurontin No 1{capsu QD Neurontin 300 MG 300 MG le_befo 300 MG re_bedt rosalia} Clotrimazol Clotrimazol 2020- No Dmitry 1 Common e e 10-12 [facility] applic[facility] 00:00 n to - [facility] :00 affected [facility] Immunizations Ordered Immunization Filled Immunization Date Status Commen ts Source Name Name Mina Enriquez 2018-04-25 Completed [facility] (Triamcinolone) (Triamcinolone) 09:55:00 - [facility] Mina Enriquez 2018-04-25 Completed [facility] (Triamcinolone) (Triamcinolone) 09:55:00 - [facility] Mina Enriquez 2018-04-25 Completed [facility] (Triamcinolone) (Triamcinolone) 09:55:00 - [facility] Mina Enriquez 2018-04-25 Completed [facility] (Triamcinolone) (Triamcinolone) 09:55:00 - [facility] 2018-04-25 Completed [facility] (Triamcinolone) (Triamcinolone) 09:55:00 - [facility] Mina 2018-04-25 Completed [facility] (Triamcinolone) (Triamcinolone) 09:55:00 - [facility] 2018-04-25 Completed [facility] (Triamcinolone) (Triamcinolone) 09:55:00 - [facility] Gentamicin 80mg Gentamicin 80mg 2018-01-04 Completed [facility] on [facility] 11:59:00 - [facility] Gentamicin 80mg Gentamicin 80mg 2018-01-04 Completed [facility] 11:59:00 [facility] Gentamicin 80mg Gentamicin 80mg 2018-01-04 Completed [facility] 11:59:00 [facility] Gentamicin 80mg Gentamicin 80mg 2018-01-04 Completed [facility] 11:59:00 [facility] Gentamicin 80mg Gentamicin 80mg 2018-01-04 Completed [facility] 11:59:00 [facility] Gentamicin 80mg Gentamicin 80mg 2018-01-04 Completed [facility] 11:59:00 [facility] Gentamicin 80mg Gentamicin 80mg 2018-01-04 Completed [facility] on [facility] 11:59:00 [facility] Gentamicin 80mg Gentamicin 80mg 2017-09-30 Completed [facility] 15:54:00 [facility] Gentamicin 80mg Gentamicin 80mg 2017-09-30 Completed [facility] 15:54:00 [facility] Gentamicin 80mg Gentamicin 80mg 2017-09-30 Completed [facility] 15:54:00 [facility] Gentamicin 80mg Gentamicin 80mg 2017-09-30 Completed [facility] 15:54:00 [facility] Gentamicin 80mg Gentamicin 80mg 2017-09-30 Completed [facility] 15:54:00 [facility] Gentamicin 80mg Gentamicin 80mg 2017-09-30 Completed [facility] 15:54:00 [facility] Gentamicin 80mg Gentamicin 80mg 2017-09-30 Completed Comm on [facility] 15:54:[address] [place] [address] Vital Signs Vital Name Observation Time Observation Value Comments Source height 2022-03-11 13:00:00 61 [in_i] [facility] weight 2022-03-11 13:00:00 170 [lb_av] [facility] temperature 2022-03-11 13:00:00 97.3 [degF] [facility] bmi 2022-03-11 13:00:00 32.12 kg/m2 [facility] oximetry 2022-03-11 13:00:00 96 % [facility] respiratory rate 2022-03-11 13:00:00 16 /min Comm on [facility] blood pressure 2022-03-11 13:00:00 138 mm[Hg] [facility] systolic [facility] blood pressure 2022-03-11 13:00:00 96 mm[Hg] [facility] diastolic [facility] blood pressure 2022-02-19 09:45:00 132 mm[Hg] [facility] systolic [facility] blood pressure 2022-02-19 09:45:00 68 mm[Hg] [facility] diastolic [facility] height 2022-02-19 09:45:00 61 [in_i] [facility] weight 2022-02-19 09:45:00 165 [lb_av] [facility] temperature 2022-02-19 09:45:00 97.8 [degF] [facility] bmi 2022-02-19 09:45:00 31.17 kg/m2 [facility] oximetry 2022-02-19 09:45:00 96 % [facility] respiratory rate 2022-02-19 09:45:00 18 /min Comm on [facility] height 2022-01-14 11:00:00 61 [in_i] [facility] weight 2022-01-14 11:00:00 165 [lb_av] [facility] temperature 2022-01-14 11:00:00 97.8 [degF] [facility] bmi 2022-01-14 11:00:00 31.17 kg/m2 [facility] oximetry 2022-01-14 11:00:00 97 % [facility] respiratory rate 2022-01-14 11:00:00 16 /min [facility] on [facility] - [facility] blood pressure 2022-01-14 11:00:00 142 mm[Hg] [facility] - systolic [facility] blood pressure 2022-01-14 11:00:00 89 mm[Hg] [facility] - diastolic [facility] height 2021-08-01 13:30:00 61 [in_i] [facility] weight 2021-08-01 13:30:00 181 [lb_av] [facility] temperature 2021-08-01 13:30:00 98 [degF] [facility] bmi 2021-08-01 13:30:00 34.2 kg/m2 [facility] blood pressure 2021-08-01 13:30:00 136 mm[Hg] [facility] - systolic [facility] blood pressure 2021-08-01 13:30:00 76 mm[Hg] [facility] - diastolic [facility] height 2021-07-31 09:30:00 61 [in_i] [facility] weight 2021-07-31 09:30:00 180 [lb_av] [facility] bmi 2021-07-31 09:30:00 34.01 kg/m2 [facility] blood pressure 2021-07-31 09:30:00 144 mm[Hg] [facility] - systolic [facility] blood pressure 2021-07-31 09:30:00 80 mm[Hg] [facility] - diastolic [facility] height 2021-07-25 11:30:00 61 [in_i] [facility] - [facility] weight 2021-07-25 11:30:00 180 [lb_av] [facility] temperature 2021-07-25 11:30:00 98.1 [degF] [facility] - [facility] bmi 2021-07-25 11:30:00 34.01 kg/m2 [facility] oximetry 2021-07-25 11:30:00 96 % [facility] respiratory rate 2021-07-25 11:30:00 16 /min Comm on [facility] blood pressure 2021-07-25 11:30:00 146 mm[Hg] Common [facility] - systolic [facility] blood pressure 2021-07-25 11:30:00 88 mm[Hg] Common [facility] - diastolic [facility] height 2021-04-21 14:15:00 61 [in_i] [facility] weight 2021-04-21 14:15:00 180 [lb_av] [facility] temperature 2021-04-21 14:15:00 97.6 [degF] [facility] bmi 2021-04-21 14:15:00 34.01 kg/m2 [facility] oximetry 2021-04-21 14:15:00 94 % [facility] respiratory rate 2021-04-21 14:15:00 18 /min [facility] on [facility] blood pressure 2021-04-21 14:15:00 136 mm[Hg] [facility] - systolic [facility] blood pressure 2021-04-21 14:15:00 68 mm[Hg] [facility] - diastolic [facility] height 2021-04-14 14:00:00 61 [in_i] [facility] weight 2021-04-14 14:00:00 180 [lb_av] [facility] - [facility] bmi 2021-04-14 14:00:00 34.01 kg/m2 [facility] - [facility] blood pressure 2021-04-14 14:00:00 132 mm[Hg] [facility] - systolic [facility] blood pressure 2021-04-14 14:00:00 80 mm[Hg] [facility] - diastolic [facility] height 2021-03-06 16:30:00 61 [in_i] [facility] weight 2021-03-06 16:30:00 180 [lb_av] [facility] temperature 2021-03-06 16:30:00 97.8 [degF] [facility] bmi 2021-03-06 16:30:00 34.01 kg/m2 [facility] S pirit [facility] oximetry 2021-03-06 16:30:00 99 % [facility] S pirit [facility] respiratory rate 2021-03-06 16:30:00 18 /min [facility] on [facility] - [facility] blood pressure 2021-03-06 16:30:00 135 mm[Hg] [facility] - systolic [facility] blood pressure 2021-03-06 16:30:00 90 mm[Hg] [facility] - diastolic [facility] height 2021-01-27 16:20:00 61 [in_i] [facility] - [facility] weight 2021-01-27 16:20:00 180 [lb_av] [facility] - [facility] temperature 2021-01-27 16:20:00 97.6 [degF] [facility] bmi 2021-01-27 16:20:00 34.01 kg/m2 [facility] oximetry 2021-01-27 16:20:00 98 % [facility] - [facility] blood pressure 2021-01-27 16:20:00 132 mm[Hg] [facility] - systolic [facility] blood pressure 2021-01-27 16:20:00 68 mm[Hg] [facility] - diastolic [facility] height 2020-12-25 14:45:00 61 [in_i] [facility] - [facility] weight 2020-12-25 14:45:00 180 [lb_av] [facility] - [facility] temperature 2020-12-25 14:45:00 97.6 [degF] [facility] - [facility] bmi 2020-12-25 14:45:00 34.01 kg/m2 [facility] - [facility] oximetry 2020-12-25 14:45:00 97 % [facility] - [facility] blood pressure 2020-12-25 14:45:00 147 mm[Hg] [facility] - systolic [facility] blood pressure 2020-12-25 14:45:00 84 mm[Hg] [facility] - diastolic [facility] height 2020-12-02 15:40:00 61 [in_i] [facility] weight 2020-12-02 15:40:00 180 [lb_av] [facility] temperature 2020-12-02 15:40:00 97.8 [degF] [facility] bmi 2020-12-02 15:40:00 34.01 kg/m2 [facility] - [facility] oximetry 2020-12-02 15:40:00 96 % [facility] - [facility] blood pressure 2020-12-02 15:40:00 184 mm[Hg] [facility] - systolic [facility] blood pressure 2020-12-02 15:40:00 104 mm[Hg] [facility] - diastolic [facility] height 2020-10-16 13:40:00 61 [in_i] [facility] - [facility] weight 2020-10-16 13:40:00 178 [lb_av] [facility] - [facility] temperature 2020-10-16 13:40:00 97.4 [degF] [facility] - [facility] bmi 2020-10-16 13:40:00 33.63 kg/m2 [facility] - [facility] blood pressure 2020-10-16 13:40:00 128 mm[Hg] [facility] - systolic [facility] blood pressure 2020-10-16 13:40:00 76 mm[Hg] [facility] - diastolic [facility] height 2020-10-16 16:30:00 61 [in_i] Common [facility] weight 2020-10-16 16:30:00 180 [lb_av] Common [facility] temperature 2020-10-16 16:30:00 97.7 [degF] [facility] - [facility] bmi 2020-10-16 16:30:00 34.01 kg/m2 Common S [facility] oximetry 2020-10-16 16:30:00 97 % Common S pir - [facility] blood pressure 2020-10-16 16:30:00 162 mm[Hg] [facility] - systolic [facility] blood pressure 2020-10-16 16:30:00 96 mm[Hg] [facility] - diastolic [facility] Procedures This patient has no known procedures. [...] 00:00:00 (1 of 1 - Medical Center [id number] PCV13) [code = PNEUMOCOCCAL 65+ YRS (1 of 1 - [id number] PCV13)] Future Scheduled 2012-12-28 PNEUMOCOCCAL 65+ YRS [facility] Test 00:00:00 (1 of 1 - Medical Center [id number]_Xsllkao PCV13) [code = PNEUMOCOCCAL 65+ YRS (1 of 1 - [id number]_Khceqxm PCV13)] Future Scheduled 2012-12-28 PNEUMOCOCCAL 65+ YRS [facility] Test 00:00:00 (1 of 1 - [facility] [id number]_Wyzzyso PCV13) [code = PNEUMOCOCCAL 65+ YRS (1 of 1 - [id number]_Uhsttjr PCV13)] Future Scheduled 1997-12-28 SHINGLES VACCINES (1 [...] [facility] breast (procedure) [code = 691744507] Future Scheduled [address] [facility]00 malignant ne[facility] of [facility] colon (procedure) [code = 061901153] Future Scheduled [address] [facility] 00:00:00 malignant ne[facility] of [facility] breast (procedure) [code = 976201461] Future Scheduled [address] [facility] 00:00:00 [facility]) [code = 539472058] Future Scheduled [address] [facility] 00:00:00 [facility] breast (procedure) [code = 082456533] Future Scheduled [address] [facility] Test 00:00:00 [facility] colon (procedure) [code = 386012072] Encounters Start End Encounter Admission Attending Care Care Encounter Source Date/Time Date/Time Type Type Clinicians Facility Department ID 2021-07-31 Outpatient [facility], STLMLC STLMLC [id number] Common 09:46:01 Dmitry [facility] 2021-04-02 Outpatient [facility], STLMLC STLMLC [id number] Common 14:02:15 Dmitry 81070 [facility] 2021-04-02 Outpatient [facility], STLMLC STLMLC [id number] Common 14:01:19 Dmitry 44586 [facility] 2021-04-02 Outpatient [facility], STLMLC STLMLC [id number] Common 13:38:40 Dmitry 67785 [facility] 2021-04-02 Outpatient [facility], STLMLC STLMLC [id number] Common 13:36:48 Dmitry 23705 [facility] 2021-04-02 Outpatient [facility], STLMLC STLMLC [id number] Common 13:28:35 Dmitry 90986 [facility] 2021-04-02 Outpatient [facility], STLMLC STLMLC [id number] Common 13:28:20 Dmitry 75045 [facility] 2021-04-02 Outpatient [facility], STLMLC STLMLC [id number] Common 13:04:41 Dmitry 63455 [facility] 2021-04-02 Outpatient [facility], STLMLC STLMLC [id number] Common 12:55:20 Dmitry 31708 [facility] 2021-04-02 Outpatient [facility], STLMLC STLMLC [id number] Common 12:37:32 Dmitry 60401 [facility] 2021-04-02 Outpatient [facility], STLMLC STLMLC [id number] Common 11:40:56 Dmitry 39871 [facility] 2021-04-02 Outpatient [facility], STLMLC STLMLC [id number] Common 11:32:24 Dmitry 22270 [facility] 2021-04-02 Outpatient [facility], STLMLC STLMLC [id number] Common 10:59:26 Dmitry 23390 [facility] 2021-04-02 Outpatient [facility], STLMLC STLC [id number] Common 10:59:05 Dmitry 61447 [facility] 2020-12-15 Inpatient UR [facility] Urology [id number] [facility] 2022-03-26 2022-03-26 Outpatient Ogweno_B DMG DMG [id number] [facility] 00:00:00 00:00:00 0119 [facility] 2022-03-24 2022-03-24 (TEL) STLMLC STLMLC [id number] Co mmon 00:00:00 00:00:00 [facility] 2022-03-11 2022-03-11 OFFICE STLMLC STLMLC [id number] Co mmon 00:00:00 00:00:00 VISIT Spirit ESTAB PT [facility] LEVEL 4 [facility] 2022-03-06 2022-03-06 (TEL) STLMLC STLMLC [id number] Co mmon 00:00:00 00:00:00 [facility] 2022-02-23 2022-02-23 Outpatient DMG DMG [id number] [facility] 00:00:00 00:00:00 1219 [facility] 2022-02-19 2022-02-19 OFFICE STLMLC STLMLC [id number] Co mmon 00:00:00 00:00:00 VISIT EST Spir it PT LEVEL 3 - [facility] 2022-01-14 2022-01-14 OFFICE STLMLC STLMLC [id number] Co mmon 00:00:00 00:00:00 VISIT EST Spir it PT LEVEL 3 - [facility] 2021-12-23 2021-12-23 (TEL) STLMLC STLMLC [id number] Co mmon 00:00:00 00:00:00 [facility] 2021-12-19 2021-12-19 OFFICE STLMLC STLMLC [id number] Co mmon 00:00:00 00:00:00 VISIT [facility] PT - CHI LEVEL 1 [facility] 2021-10-10 2021-10-10 Phone Only STLMLC STLMLC [id number] Common 00:00:00 00:00:00 Visit for Spir it Est MCR [facility] 2021-10-01 2021-10-01 (TEL) STLMLC STLMLC [id number] Co mmon 00:00:00 00:00:00 [facility] 2021-09-23 2021-09-23 (TEL) STLMLC STLMLC [id number] Co mmon 00:00:00 00:00:00 [facility] 2021-09-22 2021-09-22 (TEL) STLMLC STLMLC [id number] Co mmon 00:00:00 00:00:00 [facility] 2021-09-22 2021-09-22 OFFICE STLMLC STLMLC [id number] Co mmon 00:00:00 00:00:00 VISIT [facility] PT - [facility]I LEVEL 1 [facility] 2021-09-19 2021-09-19 Outpatient DMG DMG [id number] [facility] 03:36:00 03:36:00 0715 [facility] 2021-08-15 2021-08-15 (TEL) STLMLC STLMLC [id number] Co mmon 00:00:00 00:00:00 [facility] 2021-08-12 2021-08-12 (TEL) STLMLC STLMLC [id number] Co mmon 00:00:00 00:00:00 [facility] 2021-08-01 2021-08-01 (TEL) STLMLC STLMLC [id number] Co mmon 00:00:00 00:00:00 [facility] 2021-08-01 2021-08-01 (EST. STLMLC STLMLC [id number] Co mmon 00:00:00 00:00:00 VIDEO) EST Spi rit VIRTUAL - CHI VIDEO [facility] 2021-07-31 2021-07-31 (TEL) STLMLC STLMLC [id number] Co mmon 00:00:00 00:00:00 [facility] 2021-07-31 2021-07-31 OFFICE STLMLC STLMLC [id number] Co mmon 00:00:00 00:00:00 VISIT EST Spir it PT LEVEL 3 - [facility] 2021-07-30 2021-07-30 (TEL) STLMLC STLMLC [id number] Co mmon 00:00:00 00:00:00 [facility] 2021-07-25 2021-07-25 OFFICE STLMLC STLMLC [id number] Co mmon 00:00:00 00:00:00 V[facility]IT [facility] ESTAB PT - [facility] LEVEL 4 [facility] 2021-07-22 2021-07-22 (TEL) STLMLC STLMLC [id number] Co mmon 00:00:00 00:00:00 [facility] 2021-07-14 2021-07-14 (TEL) STLMLC STLMLC [id number] Co mmon 00:00:00 00:00:00 [facility] 2021-07-12 2021-07-12 (TEL) STLMLC STLMLC [id number] Co mmon 00:00:00 00:00:00 [facility] 2021-07-05 2021-07-05 Outpatient DMG DMG [id number] [facility] 09:00:00 09:00:00 0430 [facility] 2021-05-20 2021-05-20 Outpatient DMG DMG [id number] [facility] 09:01:00 09:01:00 0315 [facility] 2021-05-14 2021-05-14 (PROC) STLMLC STLMLC [id number] Co mmon 00:00:00 00:00:00 Procedure Spir it - [facility] 2021-05-07 2021-05-07 (TEL) STLMLC STLMLC [id number] Co mmon 00:00:00 00:00:00 [facility] 2021-05-07 2021-05-07 OFFICE STLMLC STLMLC [id number] Co mmon 00:00:00 00:00:00 VISIT [facility] ESTAB PT - [facility] LEVEL 4 [facility] 2021-05-06 2021-05-06 (TEL) STLMLC STLMLC [id number] Co mmon 00:00:00 00:00:00 [facility] 2021-04-21 2021-04-21 (TEL) STLMLC STLMLC [id number] Co mmon 00:00:00 00:00:00 [facility] 2021-04-21 2021-04-21 OFFICE STLMLC STLMLC [id number] Co mmon 00:00:00 00:00:00 VISIT EST Spir it PT LEVEL 3 [facility] 2021-04-18 2021-04-18 (TEL) STLMLC STLMLC [id number] Co mmon 00:00:00 00:00:00 [facility] 2021-04-16 2021-04-16 (TEL) STLMLC STLMLC [id number] Co mmon 00:00:00 00:00:00 [facility] 2021-04-14 2021-04-14 (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 LEADER) New STLMLC STLMLC [id number] C ommon 00:00:00 00:00:00 Patient [facility] 2021-04-10 2021-04-10 (TEL) STLMLC STLMLC [id number] Co mmon 00:00:00 00:00:00 [facility] 2021-04-03 2021-04-03 (TEL) STLMLC STLMLC [id number] Co mmon 00:00:00 00:00:00 [facility] 2021-03-10 2021-03-10 (TEL) STLMLC STLMLC [id number] Co mmon 00:00:00 00:00:00 [facility] - [facility] 2021-03-06 2021-03-06 OFFICE STLMLC STLMLC [id number] Co mmon 00:00:00 00:00:00 VISIT [facility] ESTAB PT - CHI LEVEL 2 [facility] 2021-03-05 2021-03-05 (TEL) STLMLC STLMLC [id number] Co mmon 00:00:00 00:00:00 [facility] - [facility] 2021-01-27 2021-01-27 OFFICE STLMLC STLMLC [id number] Co mmon 00:00:00 00:00:00 VISIT [facility] ESTAB PT - [facility]I LEVEL 4 [facility] 2020-12-25 2020-12-25 OFFICE STLMLC STLMLC [id number] Co mmon 00:00:00 00:00:00 VISIT EST Spir it PT LEVEL 3 - [facility] 2020-12-20 2020-12-20 (TEL) STLMLC STLMLC [id number] Co mmon 00:00:00 00:00:00 [facility] 2020-12-02 2020-12-02 (TEL) STLMLC STLMLC [id number] Co mmon 00:00:00 00:00:00 [facility] 2020-12-02 2020-12-02 (TEL) STLMLC STLMLC [id number] Co mmon 00:00:00 00:00:00 [facility] 2020-12-02 2020-12-02 OFFICE STLMLC STLMLC [id number] Co mmon 00:00:00 00:00:00 VISIT EST Spir it PT LEVEL 3 - [facility] 2020-10-16 2020-10-16 OFFICE STLMLC STLMLC [id number] Co mmon 00:00:00 00:00:00 VISIT [facility] ESTAB PT - [facility]I LEVEL 4 [facility] 2020-10-16 2020-10-16 OFFICE STLMLC STLMLC [id number] Co mmon 00:00:00 00:00:00 VISIT [facility] ESTAB PT - [facility] LEVEL 4 [facility] 2020-10-10 2020-10-10 (TEL) STLMLC STLMLC [id number] Co mmon 00:00:00 00:00:00 [facility] 2020-09-25 2020-09-25 Outpatient STLMLC STLMLC [id number] Common 00:00:00 00:00:00 [facility] 2020-09-20 2020-09-20 Outpatient STLMLC STLMLC [id number] Common 00:00:00 00:00:00 [facility] 2020-09-04 2020-09-04 Outpatient STLMLC STLMLC [id number] Common 00:00:00 00:00:00 [facility] 2020-09-04 2020-09-04 Outpatient STLMLC STLMLC [id number] Common 00:00:00 00:00:00 [facility] 2020-09-04 2020-09-04 Outpatient STLMLC STLMLC [id number] Common 00:00:00 00:00:00 [facility] 2020-09-03 2020-09-03 Outpatient STLMLC STLMLC [id number] Common 00:00:00 00:00:00 [facility] 2020-08-27 2020-08-27 Outpatient STLMLC STLMLC [id number] Common 00:00:00 00:00:00 [facility] 2020-08-15 2020-08-15 Outpatient STLMLC STLMLC [id number] Common 00:00:00 00:00:00 [facility] 2020-08-14 2020-08-14 Outpatient STLMLC STLMLC [id number] Common 00:00:00 00:00:00 [facility] 2020-08-01 2020-08-01 Outpatient STLMLC STLMLC [id number] Common 00:00:00 00:00:00 [facility] 2020-07-24 2020-07-24 Outpatient STLMLC STLMLC [id number] Common 00:00:00 00:00:00 [facility] 2020-07-16 2020-07-16 Outpatient STLMLC STLMLC [id number] Common 00:00:00 00:00:00 [facility] 2020-07-16 2020-07-16 Outpatient STLMLC STLMLC [id number] Common 00:00:00 00:00:00 [facility] 2020-07-10 2020-07-10 Outpatient STLMLC STLMLC [id number] Common 00:00:00 00:00:00 [facility] 2020-07-05 2020-07-05 Outpatient STLMLC STLMLC [id number] Common 00:00:00 00:00:00 [facility] 2020-06-27 2020-06-27 Outpatient STLMLC STLMLC [id number] Common 00:00:00 00:00:00 [facility] 2020-06-24 2020-06-24 Outpatient STLMLC STLMLC [id number] Common 00:00:00 00:00:00 [facility] 2020-06-19 2020-06-19 Outpatient STLMLC STLMLC [id number] Common 00:00:00 00:00:00 [facility] 2020-05-20 2020-05-20 Outpatient STLMLC STLMLC [id number] Common 00:00:00 00:00:00 [facility] 2020-05-14 2020-05-14 Outpatient STLMLC STLMLC [id number] Common 00:00:00 00:00:00 [facility] 2020-04-19 2020-04-19 Outpatient STLMLC STLMLC [id number] Common 00:00:00 00:00:00 [facility] 2020-04-16 2020-04-16 Outpatient STLMLC STLMLC [id number] Common 00:00:00 00:00:00 [facility] 2019-09-29 2019-09-29 [facility] [id number] Common 13:46:00 13:46:00 [facility] 2019-09-28 2019-09-28 [facility] [id number] Common 11:00:00 11:00:[address] [facility] 2019-09-28 2019-09-28 [facility] [id number] Common 10:30:00 10:30:[address] Spir it [address] [facility] 2019-07-14 2019-07-14 [facility] [id number] Common 10:31:00 10:31:[address] [place] [address] [facility] 2018-12-15 2018-12-15 [facility] [id number] Common 16:00:00 16:00:00 [address] [place] [address] [facility] 2018-09-14 2018-09-14 [facility] [id number] Common 15:45:00 15:45:00 [address] [place] [address] [facility] 2018-08-30 2018-08-30 [facility] [id number] Common 08:00:00 08:00:00 [address] [place] [address] [facility] 2018-06-10 2018-06-10 [facility] [id number] Common 16:46:00 16:46:00 [address] [place] [address] [facility] 2018-06-09 2018-06-09 [facility] [id number] Common 09:18:00 09:18:00 t [facility] [address] [facility] 2018-06-07 2018-06-07 [facility] [id number] Common 15:00:00 15:00:00 [address] [place] [address] [facility] 2018-04-25 2018-04-25 [facility] [id number] Common 09:15:00 09:15:00 [address] [place] [address] [facility] 2018-03-09 2018-03-09 [facility] [id number] Common 16:00:00 16:00:00 [address] [place] [address] [facility] 2018-03-03 2018-03-03 Outpatient [facility] [id number] Common 08:52:00 08:52:00 [address] [place] [address] [facility] 2017-11-30 2017-11-30 [facility] [place] [id number] Common 15:00:00 15:00:00 [address] [place] [address] [facility] 2017-09-30 2017-09-30 [facility] [place] [id number] Common 15:00:00 15:00:00 t Specialty/U Sp nahed Specialty rology - [facility] /[facility] Clinic [facility] 2017-09-29 2017-09-29 Outpatient [facility] 14 [id number] Common 10:13:00 10:13:00 [address] [place] [address] [facility] 2017-09-28 2017-09-28 Outpatient [facility] [id number] Common 14:00:00 14:00:00 [address] [place] [address] [facility] Results Test Description Test Time Test Comments Results Result Comments Source PHOSPHORUS 2018-11-11 05:54:00 Test Item Value Reference Range Interpretation Comme nts PHOSPHORUS (BEAKER) (test code = 604) 3.6 mg/dL 2.3-4.7 [id number] 05:54:00 Test Item Value Reference Range Interpretation Comments MAGNESIUM (BEAKER) (test code = 1.8 mg/dL 1.6-2.6 627) BASIC METABOLIC [id number] 05:54:00 Test Item Value Reference Range Interpretation [...] APPLICABLE FOR DIALYSIS PATIEN TS. HEPATIC FUNCTION [id number] 05:54:00 Test Item Value Reference Range Interpretation [...] 6-55 347) CBC W/PLT COUNT & AUTO [id number] 05:43:00 Test Item Value Reference Range Interpretation [...] PERCENT (BEAKER) (test code = 2801) PROTHROMBIN [id number] 05:42:00 Test Item Value Reference Range Interpretation Comments PROTIME (BEAKER) (test code = 13.0 seconds 11.9-14.2 759) INR (BEAKER) (test code = 370) 1.0 <=5.9 Effective 08/03/2018: PT Reference Range ChangeNew: 11.9-14.2 Previous: 11.7- 14.7RECOMMENDED COUMADIN/WARFARIN INR THERAPY RANGESSTANDARD DOSE: 2.0-3.0 Includes: PROPHYLAXIS for venous thrombosis, systemic embolization; TREATMENT for venous thrombosis and/or pulmonary embolus.HIGH RISK: Target INR is 2.5-3.5 for patients wiht mechanical heart valves.HEMOGLOBIN [id number] 07:50:00 Test Item Value Reference Range Interpretation Comments HEMOGLOBIN A1C (BEAKER) (test code = 7.1 % 4.3-6.1 H 368) [id number] 04:53:00 Test Item Value Reference Range Interpretation Comments PHOSPHORUS (BEAKER) (test code = 3.2 mg/dL 2.3-4.7 604) [id number] 04:53:00 Test Item Value Reference Range Interpretation Comments MAGNESIUM (BEAKER) (test code = 1.8 mg/dL 1.6-2.6 627) BASIC METABOLIC [id number] 04:53:00 Test Item Value Reference Range Interpretation [...] APPLICABLE FOR DIALYSIS PATIEN TS. HEPATIC FUNCTION [id number] 04:53:00 Test Item Value Reference Range Interpretation [...] code = 12 U/L 6-55 347) PROTHROMBIN [id number] 04:19:00 Test Item Value Reference Range Interpretation Comments PROTIME (BEAKER) (test code = 14.3 seconds 11.9-14.2 H 759) INR (BEAKER) (test code = 370) 1.2 <=5.9 Effective 08/03/2018: PT Reference Range ChangeNew: 11.9-14.2 Previous: 11.7- 14.7RECOMMENDED COUMADIN/WARFARIN INR THERAPY RANGESSTANDARD DOSE: 2.0-3.0 Includes: PROPHYLAXIS for venous thrombosis, systemic embolization; TREATMENT for venous thrombosis and/or pulmonary embolus.HIGH RISK: Target INR is 2.5-3.5 for patients wiht mechanical heart valves.CBC W/PLT COUNT & AUTO [id number] 04:14:00 Test Item Value Reference Range Interpretation [...] 0-1 PERCENT (BEAKER) (test code = 2801) [id number] 14:44:00 Test Item Value Reference Range Interpretation Comments LIPASE (BEAKER) (test code = 749) 972 U/L 8-78 H [id number] 13:06:00 Test Item Value Reference Range Interpretation Comments PHOSPHORUS (BEAKER) (test code = 3.3 mg/dL 2.3-4.7 604) [id number] 13:06:00 Test Item Value Reference Range Interpretation Comments MAGNESIUM (BEAKER) (test code = 2.0 mg/dL 1.6-2.6 627) BASIC METABOLIC [id number] 13:06:00 Test Item Value Reference Range Interpretation [...] NOT APPLICABLE FOR DIALYSIS PATIEN TS. LIPID [id number] 13:06:00 Test Item Value Reference Range Interpretation Comments TRIGLYCERIDES (BEAKER) (test code = 210 mg/dL 540) CHOLESTEROL (BEAKER) (test code = 213 mg/dL 631) HDL CHOLESTEROL (BEAKER) (test code 56 mg/dL = 976) LDL CHOLESTEROL CALCULATED (BEAKER) 115 mg/dL (test code = 633) Triglyceride Reference Range: Low Risk <150 Borderline 150-199 High Risk 200- 499 Very High Risk >=500Cholesterol Reference Range: Low Risk <200 Borderline 200-239 High Risk >240HDL Cholesterol Reference Range: Low Risk >=60 High Risk <40LDL Cholesterol Reference Range: Optimal <100 Near Optimal 100-129 Borderline 130-159 High 160-189 Very High >=190HEPATIC FUNCTION [id number] 13:06:00 Test Item Value Reference Range Interpretation [...] 6-55 347) CBC W/PLT COUNT & AUTO [id number] 12:46:00 Test Item Value Reference Range Interpretation [...] PERCENT (BEAKER) (test code = 2801) PROTHROMBIN [id number] 12:39:00 Test Item Value Reference Range Interpretation Comments PROTIME (BEAKER) (test code = 13.4 seconds 11.9-14.2 759) INR (BEAKER) (test code = 370) 1.1 <=5.9 Effective 08/03/2018: PT Reference Range ChangeNew: 11.9-14.2 Previous: 11.7- 14.7RECOMMENDED COUMADIN/WARFARIN INR THERAPY RANGESSTANDARD DOSE: 2.0-3.0 Includes: PROPHYLAXIS for venous thrombosis, systemic embolization; TREATMENT for venous thrombosis and/or pulmonary embolus.HIGH RISK: Target INR is 2.5-3.5 for patients wiht mechanical heart valves.
[2022-03-29] LABS: Absolute Lymphocytes (CBC) 1.9 K/uL (0.7-4.9); Hematocrit 36.9 % (36.0-45.0); Lymphocytes % 21.2 % (15.3-44.8); MCV 74.3 fL (80-100); RBC Red Blood Cell Count 4.97 M/uL (3.86-4.86)
[2022-03-29] MEDS ORDERED: MORPHINE 4 MG/ML SYR ONE ×2 (00:16→04:09)
[2022-03-29] MEDS ORDERED: NA CHLORIDE 0.9% 1,000 ML ONE (00:16)
[2022-03-29] MEDS ORDERED: ONDANSETRON 4 MG/2 ML VIAL ONE (00:16)
[2022-03-29 00:21] LABS: Albumin 3.3 g/dL (3.4-5.0); Bilirubin Total 0.4 mg/dL (0.2-1.0); Potassium 3.8 mmol/L (3.5-5.1); Protein, Total 7.6 g/dL (6.4-8.2); Troponin High Sensitivity 16.6 pg/mL (<58.9)
--- NOTE | 2022-03-29 03:29 | EDPHYS ---
Physician Documentation [facility] Name: Isadora Bettencourt Age: 76 yrs Sex: Female : 1945 Arrival Date: 03/28/2022 Time: 22:48 Bed 13 Private MD: ED Physician Efrain Smith HPI: 03/28 23:02 This 76 yrs old Female presents to ER via EMS with complaints of abdominal pain. rt 23:02 The patient presents with abdominal pain. Onset: The symptoms/episode began/occurred rt this morning. The symptoms do not radiate. Associated signs and symptoms: Pertinent positives: nausea, Pertinent negatives: vomiting. The symptoms are described as sharp. Modifying factors: The symptoms are alleviated by nothing, the symptoms are aggravated by. Severity of pain: At its worst the pain was moderate. Patient with history of pancreatitis presents to the ED with an epigastric pain that is consistent with prior episodes of pancreatitis. She has nausea no vomiting. She has not had a flare in several months. She denies other acute complaints at this time. Symptoms are moderate severity, no other aggravating alleviating factors.. Historical: - Allergies: 22:52 No Known Allergies; ke1 - PMHx: 22:52 Anxiety; Hypertension; Kidney stones; Pancreatitis; ke1 - Immunization history:: Client reports having NOT received the Covid vaccine. - Family history:: not pertinent. - Social history:: Smoking status: Patient/guardian denies using tobacco, the patient reports quitting approximately 21 years ago. ROS: 23:02 Constitutional: Negative for fever, chills, and weight loss, ENT: Negative for injury, rt pain, and discharge, Neck: Negative for injury, pain, and swelling, Cardiovascular: Negative for chest pain, palpitations, and edema, Respiratory: Negative for shortness of breath, cough, wheezing, and pleuritic chest pain, MS/Extremity: Negative for injury and deformity, Skin: Negative for injury, rash, and discoloration, Neuro: Negative for headache, weakness, numbness, tingling, and seizure, Psych: Negative for depression, anxiety, suicide ideation, homicidal ideation, and hallucinations. 23:02 Abdomen/GI: Positive for abdominal pain, nausea. Exam: 23:02 Constitutional: This is a well developed, well nourished patient who is awake, alert, rt and in no acute distress. Head/Face: Normocephalic, atraumatic. Chest/axilla: Normal chest wall appearance and motion. Nontender with no deformity. No lesions are appreciated. Cardiovascular: Regular rate and rhythm with a normal S1 and S2. No gallops, murmurs, or rubs. Normal PMI, no JVD. No pulse deficits. Respiratory: Lungs have equal breath sounds bilaterally, clear to auscultation and percussion. No rales, rhonchi or wheezes noted. No increased work of breathing, no retractions or nasal flaring. Skin: Warm, dry with normal turgor. Normal color with no rashes, no lesions, and no evidence of cellulitis. MS/ Extremity: Pulses equal, no cyanosis. Neurovascular intact. Full, normal range of motion. Neuro: Awake and alert, GCS 15, oriented to person, place, time, and situation. Cranial nerves II-XII grossly intact. Motor strength 5/5 in all extremities. Sensory grossly intact. Cerebellar exam normal. Normal gait. Psych: Awake, alert, with orientation to person, place and time. Behavior, mood, and affect are within normal limits. 23:02 Abdomen/GI: tenderness to the epigastrium without rebound, guarding, distention.. 03/29 00:39 ECG was reviewed by the Attending Physician. rt Vital Signs: 03/28 23:02 BP 224 / 127; Pulse 86; Resp 18; Temp 98.5(O); Pulse Ox 98% on R/A; Weight 72.57 kg; ke1 Height 5 ft. 1 in. (154.94 cm); Pain 9/10; 03/29 05:20 BP 155 / 93; Pulse 86; Resp 17; Temp 98.3; Pulse Ox 85% on R/A; Pain 0/10; ke1 05:21 Pulse Ox 98% on 4 lpm NC; ke1 03/28 23:02 Body Mass Index 30.23 (72.57 kg, 154.94 cm) ke1 MDM: 03/28 22:51 Patient medically screened. rt 03/29 03:29 Differential diagnosis: Acute coronary syndrome, pancreatitis, gastritis, bowel rt obstruction. Data reviewed: vital signs, nurses notes, lab test result(s), EKG, radiologic studies. Consideration of Admission/Observation Patient was admitted/placed on observation. Management of patient was discussed with the following: Hospitalist: Agrees to admit. I considered the following discharge prescriptions or medication management in the emergency department Medications were administered in the Emergency Department. See MAR. External Records Reviewed: Inpatient record: Signs of pancreatitis, only mildly seen on CT scans, with normal lipase. Care significantly affected by the following chronic conditions: Chronic pancreatitis. Response to treatment: the patient's symptoms have mildly improved after treatment. 03/28 22:59 Order name: CBC with Diff; Complete Time: 00:34 rt 03/28 22:59 Order name: CMP; Complete Time: 00:34 rt 03/28 22:59 Order name: Lipase; Complete Time: 00:34 rt 03/28 22:59 Order name: Troponin High Sensitivity; Complete Time: 00:34 rt 03/29 03:35 Order name: Glucose, Ancillary Testing; Complete Time: 03:37 EDMS 03/29 03:40 Order name: SARS RAPID la1 03/29 02:06 Order name: Abdomen EDMS 03/29 03:57 Order name: Lipid Profile la1 03/28 22:59 Order name: EKG; Complete Time: 23:00 rt 03/28 22:59 Order name: EKG - Nurse/Tech; Complete Time: 00:33 rt EC:39 Rate is 77 beats/min. Rhythm is regular, Normal Sinus Rhythm with Left bundle branch rt block. AR interval is normal. QRS interval is normal. QT interval is normal. Interpreted by me. Administered Medications: 00:20 Drug: morphine 4 mg Route: IVP; Infused Over: 4 mins; Site: right forearm; ke1 00:20 Drug: Zofran (Ondansetron) 4 mg Route: IVP; Site: right forearm; ke1 00:20 Drug: NS 0.9% 1000 ml Route: IV; Rate: 1 bolus; Site: right forearm; ke1 04:11 Drug: morphine 4 mg {Note: IM L deltoid , V.O [place] because no IV access.} Route: ke1 IVP; Infused Over: 4 mins; Site: Other; 05:18 Drug: Phenergan (promethazine) 12.5 mg Route: IVP; Site: right antecubital; ke1 Disposition Summary: 03/29/22 03:28 Hospitalization Ordered Hospitalization Status: Inpatient Admission rt Provider: Prater, Jeremiah rt Location: Telemetry/MedSurg (Inpatient) rt Condition: Stable rt Problem: an acute exacerbation rt Symptoms: have improved rt Bed/Room Type: Standard rt Room Assignment: 206(03/29/22 04:50) cg Diagnosis - Other chronic pancreatitis rt - Hyperglycemia, unspecified rt Forms: - Medication Reconciliation Form rt - SBAR form rt Signatures: Dispatcher [employer] EDWilfredo Olson FNP-C SENIOR INSTRUCTOR-Cla1 Chica Ryder RN RN cg Lindsay Tripathi RN RN ke1 Efrain Smith MD MD rt Corrections: (The following items were deleted from the chart) 02:06 03/28 23:04 Abdomen Pelvis W Con+CT.RAD.BRZ ordered. [facility] 03/29 04:50 03:28 rt cg
--- NOTE | 2022-03-29 03:29 | ER ---
Nurse's Notes [facility] Name: Isadora Bettencourt Age: 76 yrs Sex: Female : 1945 Arrival Date: 03/28/2022 Time: 22:48 Bed 13 Private MD: Diagnosis: Other chronic pancreatitis;Hyperglycemia, unspecified Presentation: 03/28 22:51 Chief complaint: EMS states: Toned out for abdominal pain that started 30 mn ago. ke1 Coronavirus screen: Vaccine status: Patient reports receiving the 2nd dose of the covid vaccine. Ebola Screen: No symptoms or risks identified at this time. Risk Assessment: Do you want to hurt yourself or someone else? Patient reports no desire to harm self or others. Onset of symptoms was March 28, 2022 at 22:15. 22:51 Method Of Arrival: EMS: [facility] ke1 22:51 Acuity: FRANDY 3 ke1 23:02 Initial Sepsis Screen: Does the patient meet any 2 criteria? No. Patient's initial ke1 sepsis screen is negative. Does the patient have a suspected source of infection? No. Patient's initial sepsis screen is negative. Triage Assessment: 23:03 General: Appears in no apparent distress. Behavior is appropriate for age. Pain: ke1 Complains of pain in abdomen Pain currently is 9 out of 10 on a pain scale. Neuro: Level of Consciousness is awake, alert, obeys commands, Oriented to person, place, time, situation. Historical: - Allergies: 22:52 No Known Allergies; ke1 - PMHx: 22:52 Anxiety; Hypertension; Kidney stones; Pancreatitis; ke1 - Immunization history:: Client reports having NOT received the Covid vaccine. - Family history:: not pertinent. - Social history:: Smoking status: Patient/guardian denies using tobacco, the patient reports quitting approximately 21 years ago. Screenin:04 [facility] ED Fall Risk Assessment (Adult) History of falling in the last 3 months, ke1 including since admission No falls in past 3 months (0 pts) Confusion or Disorientation No (0 pts) Intoxicated or Sedated No (0 pts) Impaired Gait No (0 pts) Mobility Assist Device Used No (0 pt) Altered Elimination No (0 pt) Score/Fall Risk Level 0 - 2 = Low Risk. Abuse screen: Denies threats or abuse. Nutritional screening: No deficits noted. Tuberculosis screening: No symptoms or risk factors identified. Assessment: 23:03 : Dobson in place. ke1 03/29 00:00 Reassessment: No changes from previously documented assessment. Patient is alert, ke1 oriented x 3, equal unlabored respirations, skin warm/dry/pink. 01:00 Reassessment: No changes from previously documented assessment. Patient states feeling ke1 better. Patient states symptoms have improved. 02:44 Reassessment: Very difficult stick patient, unable to get another IV line despite ke1 ultrasound. Vital Signs: 03/28 23:02 BP 224 / 127; Pulse 86; Resp 18; Temp 98.5(O); Pulse Ox 98% on R/A; Weight 72.57 kg; ke1 Height 5 ft. 1 in. (154.94 cm); Pain 9/10; 03/29 05:20 BP 155 / 93; Pulse 86; Resp 17; Temp 98.3; Pulse Ox 85% on R/A; Pain 0/10; ke1 05:21 Pulse Ox 98% on 4 lpm NC; ke1 03/28 23:02 Body Mass Index 30.23 (72.57 kg, 154.94 cm) ke1 ED Course: 03/28 22:48 Patient arrived in ED. jj6 22:51 Lindsay Tripathi, SHARMAINE is Primary Nurse. ke1 22:51 Efrain Smith MD is Attending Physician. rt 22:52 Triage completed. ke1 23:04 Arm band placed on left wrist. ke1 23:04 Bed in low position. Call light in reach. Side rails up X 1. ke1 23:30 Missed attempt(s): 22 gauge in right forearm. ke1 03/29 00:10 Inserted saline lock: 22 gauge in right forearm, using aseptic technique. ,using ke1 aseptic technique. by Jeremias. 00:30 IV discontinued, infiltrated. ke1 01:34 Missed attempt(s): 22 gauge in left forearm. pf1 01:37 Missed attempt(s): 22 gauge in left antecubital area. pf1 02:34 Abdomen In Process Unspecified. EDMS 03:28 Jeremiah Prater MD is Hospitalizing Provider. rt 05:33 No provider procedures requiring assistance completed. ke1 Administered Medications: 00:20 Drug: morphine 4 mg Route: IVP; Infused Over: 4 mins; Site: right forearm; ke1 00:20 Drug: Zofran (Ondansetron) 4 mg Route: IVP; Site: right forearm; ke1 00:20 Drug: NS 0.9% 1000 ml Route: IV; Rate: 1 bolus; Site: right forearm; ke1 04:11 Drug: morphine 4 mg {Note: IM L deltoid , V.O [place] because no IV access.} Route: ke1 IVP; Infused Over: 4 mins; Site: Other; 05:18 Drug: Phenergan (promethazine) 12.5 mg Route: IVP; Site: right antecubital; ke1 Medication: 05:33 VIS not applicable for this client. ke1 Outcome: 03:28 Decision to Hospitalize by Provider. rt 05:33 Admitted to Med/surg accompanied by tech. ke1 05:33 Condition: stable 05:33 Discharge instructions given to Instructed on the need for admit. 05:33 Patient left the ED. ke1 Signatures: Dispatcher [employer] EDMS Padmini Rivera jj6 Lindsay Tripathi RN RN ke1 Efrain Smith MD MD rt Trish levy RN RN pf1
--- NOTE | 2022-03-29 04:02 | P.HP ---
Certification for Inpatient Patient admitted to: Inpatient With expected LOS: >2 Midnights Patient will require the following post-hospital care: None Practitioner: I am a practitioner with admitting privileges, knowledge of patient current condition, hospital course, and medical plan of care. Services: Services provided to patient in accordance with Admission requirements found in Title 42 Section 412.3 of the Code of Federal Regulations <AlanWilfredo Weiss - Last Filed: 03/29/22 03:59> Patient History Date of Service: 03/29/22 Reason for admission: Acute on chronic pancreatitis History of Present Illness: 76-year-old female with history of chronic pancreatitis, [id number] diabetes, hypertension presents emergency department with epigastric pain similar to previous episodes pancreatitis. She reports that her pain began around 8 PM after eating some soup. She denies alcohol use, has had previous cholecystectomy. CT was performed without contrast as there is difficulty obtaining IV access, lipase was within normal limits. ED prior wishes to admit for further evaluation and management of acute on chronic pancreatitis. She has Dobson catheter in place from previous urological procedure. - Past Medical/Surgical History Diabetic: Yes -: kidney stones -: Gastroesophageal reflux disease w Hiatal hernia -: Esophageal spasm -: Attention deficit disorder -: Hypertension -: Depression with anxiety -: Hyperlipidemia -: Chronic pain -: Fatty liver, nonalcoholic -: Urinary incontinence/Nephrolithiasis -: Recurrent UTI -: Hysterectomy -: Cholecystectomy -: Appendectomy -: back surgery -: knee surgery -: foot surgery -: EGD/ERCP -: Cardiac catheterization, no stent Psychosocial/ Personal History: Patient lives at home - Family History Father -: Diabetes, Cancer Notes: Type 2 Mother -: Hypertension, Diabetes, Other (see notes) Notes: Hypoglycemia Sister Notes: epilepsy - Social History Smoking Status: Never smoker Alcohol use: No CD- Drugs: Yes Caffeine use: No Place of Residence: Home <Wilfredo Phillips - Last Filed: 03/29/22 03:59> Date of Service: 03/29/22 <Jeremiah Prater - Last Filed: 03/29/22 16:05> Allergies No Known Allergies Allergy (Verified 09/16/21 09:15) Home Medications: Hydrocodone 7.5/APAP 325 [[place] 7.5/325 mg*] 1 tab PO Q6H PRN #30 tab 05/23/22 Simvastatin 1 tab PO DAILY 09/12/21 Fluconazole 1 tab PO DAILY 09/16/21 Nystatin/Triamcin [Nystatin-Triamcinolone Cream] 30 gm TP BID 42 Days #1 cream..g. 09/16/21 Glimepiride [Amaryl] 2 mg PO DAILY #30 tablet 09/17/21 Metformin HCl [Glucophage*] 500 mg PO BIDWM #60 tab 09/17/21 Phenazopyrididine [Pyridium*] 100 mg PO TID PRN #30 tab 09/17/21 Amlodipine [Norvasc*] 10 mg PO DAILY #30 tab 10/03/21 Pantoprazole [Protonix Tab*] 40 mg PO BID #60 tab 10/03/21 Sucralfate [Carafate*] 1 gm PO TID #90 tab 10/03/21 Review of Systems 10-point ROS is otherwise unremarkable Gastrointestinal: Nausea, Abdominal Pain <Wilfredo Phillips - Last Filed: 03/29/22 03:59> Physical Examination - Physical Exam General: Alert, In no apparent distress HEENT: Atraumatic, PERRLA, Mucous membr. moist/pink, EOMI, Sclerae nonicteric Neck: Supple, 2+ carotid pulse no bruit, No LAD, Without JVD or thyroid abnormality Respiratory: Clear to auscultation bilaterally, Normal air movement Cardiovascular: Regular rate/rhythm, Normal S1 S2 Capillary refill: <2 Seconds Gastrointestinal: Normal bowel sounds, No tenderness Musculoskeletal: No tenderness Integumentary: No rashes Neurological: Normal speech, Normal strength at 5/5 x4 extr, Normal tone, Normal affect - Studies Laboratory Data (last 24 hrs) 03/28/22 23:52: Sodium 138, Potassium 3.8, BUN 10, Creatinine 0.87, Glucose 405 H*, Total Bilirubin 0.4, AST 11 L, ALT 14, Alkaline Phosphatase 125 H, Lipase 83 03/28/22 23:52: WBC 8.80, Hgb 11.9 L, Hct 36.9, Plt Count 258 <Wilfredo Phillips - Last Filed: 03/29/22 03:59> - Studies Laboratory Data (last 24 hrs) 03/28/22 23:52: Sodium 138, Potassium 3.8, BUN 10, Creatinine 0.87, Glucose 405 H*, Total Bilirubin 0.4, AST 11 L, ALT 14, Alkaline Phosphatase 125 H, Lipase 83 03/28/22 23:52: WBC 8.80, Hgb 11.9 L, Hct 36.9, Plt Count 258 <Jeremiah Prater - Last Filed: 03/29/22 16:05> Assessment and Plan - Plan Assessment: Acute on chronic pancreatitis Diabetes mellitus type [id number] with hyperglycemia Hypertension Plan: Acute on chronic pancreatitis NPO, IVF, trend lipase level, as needed pain medications. Diabetes mellitus type [id number]-chknord-ufhvcknor with hyperglycemia Sliding scale insulin, A1c with daily labs. Hypertension Continue home medications when appropriate. DVT PPX: Lovenox Code status: Full Discharge Plan: Home Plan to discharge in: 48 Hours - Advance Directives Does patient have a Living Will: No Does patient have a Durable POA for Healthcare: No - Code Status/Comfort Care Code Status Assessed: Yes (Full code) Critical Care: No Time Spent Managing Pts Care (In Minutes): 55 <Wilfredo Phillips - Last Filed: 03/29/22 03:59> - Plan Imaging negative, lipase normal recurrent episodes of this Unable to tell me how long she has been diabetic. States never explained to her, she oesn't check glucose at home A1c >13 discussed almost with DKA, which could trigger pancreas inflammation / similar symptoms <Jeremiah Prater - Last Filed: 03/29/22 16:05>
[2022-03-29 04:16] LABS: SARS-CoV-2 Antigen Rapid Res Negative (Negative)
[2022-03-29] MEDS ORDERED: PROMETHAZINE INJ 25 MG/ML AMP ONE (05:14)
[2022-03-29 05:59] VITALS: BMI 32.7
[2022-03-29] MEDS: Ringers Lactate 1,000 ML IV SCH ×3 (05:59→21:42)
[2022-03-29] MEDS: INSULIN -REGULAR HUMAN 50 UNIT/0.5 ML ML SQ SCH ×3 (06:20→17:49)
[2022-03-29 06:31] VITALS: O2SAT 98
[2022-03-29] MEDS: ENOXAPARIN 40 MG/0.4 ML SQ SCH (08:38)
[2022-03-29] MEDS: MORPHINE 2 MG/ML SYR IV PRN ×3 (08:38→17:49)
[2022-03-29] MEDS: HYDRALAZINE HCL 20 MG/ML VIAL IV PRN (12:53)
[2022-03-30] MEDS: INSULIN -REGULAR HUMAN 50 UNIT/0.5 ML ML SQ SCH ×4 (01:13→18:00)
[2022-03-30] MEDS: Ringers Lactate 1,000 ML IV SCH ×3 (05:57→23:20)
[2022-03-30 06:03] LABS: Albumin 2.4 g/dL (3.4-5.0); Bilirubin Total 0.6 mg/dL (0.2-1.0); Protein, Total 5.9 g/dL (6.4-8.2)
[2022-03-30 07:28] LABS: Absolute Lymphocytes (CBC) 1.6 K/uL (0.7-4.9); Hematocrit 32.6 % (36.0-45.0); Lymphocytes % 22.3 % (15.3-44.8); MCV 74.8 fL (80-100); MPV 8.1 fL (7.6-11.3); RBC Red Blood Cell Count 4.36 M/uL (3.86-4.86)
[2022-03-30] MEDS: ENOXAPARIN 40 MG/0.4 ML SQ SCH (11:21)
[2022-03-30] MEDS: AMLODIPINE 10 MG TAB PO SCH (11:22)
[2022-03-30] MEDS: HYDRALAZINE HCL 20 MG/ML VIAL IV PRN (14:59)
--- NOTE | 2022-03-30 16:53 | EKG ---
Test Date: 2022-03-29 Test Time: 00:02:10 [employer]: DAYNA MEASUREMENT RESULTS: Intervals: Rate: 77 NC: 158 QRSD: 142 QT: 448 QTc: 506 [employer]: P: 71 NC: 158 QRS: -47 T: 113 INTERPRETIVE STATEMENTS: Normal sinus rhythm Left bundle branch block Abnormal ECG Compared to ECG 07/27/2021 06:58:59 No significant changes Electronically Signed On 03-30-22 16:50:52 911 OPERATOR by Adán Bennett
[2022-03-30] MEDS: ONDANSETRON 4 MG/2 ML VIAL IV PRN (17:03)
--- NOTE | 2022-03-30 17:15 | RAD REPORT ---
EXAM DESCRIPTION: ADDENDUM #1 Addendum: There is a typographic correction of 10th sentence: The uterus is absent perhaps suggesting previous hysterectomy. IMPRESSION: No evidence for nephrolithiasis and/or hydronephrosis. Moderate size hiatal hernia. Mild fecal stasis. Sigmoid diverticulosis without evidence for acute diverticulitis. Status post hysterectomy. Pneumobilia. Electronically signed by: [place] Hel[place] MD 03/29/2022 3:11 AM HAIR WORKER End of Addendum EXAM DESCRIPTION: Abdomen Pelvis Wo Contrast 03/29/2022 2:43 AM HAIR WORKER CLINICAL HISTORY: 76 years, Female, epigastric pain COMPARISON: 10/01/2021 TECHNIQUE: Multiple transaxial tomograms of the abdomen and pelvis were performed from the lung base s to the symphysis pubis utilizing 5 mm slice thickness at 5 mm interval reconstruction, without admi nistration of IV and oral contrast. Multiplanar reformats in the sagittal and coronal plane were generated and reviewed. This exam was performed according to our departmental dose-optimization protocol, which includes auto mated exposure control, adjustment of the mA and/or kV according to patient size and/or use of iterat yung reconstruction technique. FINDINGS: The lack of IV and oral contrast limits evaluation of solid organs, subtle lesions cannot be excluded. The lung bases demonstrate to be clear. There is a moderate size hiatal hernia. Central line catheter within the cavoatrial junction. Mitral annular calcification. Grossly the unopacified liver again there is a presence of small amount of air within the biliary sys tem corresponding to pneumobilia. The gallbladder was not visualized. The pancreas, spleen and adrenal glands demonstrate to be within normal limits, no significant focal lesions were identified. The kidneys demonstrate grossly unremarkable. There is no evidence for nephrolithiasis and/or hydro nephrosis. No focal masses were demonstrated. Grossly the unopacified stomach, small bowel and large bowel demonstrate to be within normal limits. There is no evidence for bowel dilatation/or free air. There is mild fecal stasis. There is diverticu losis within the sigmoid colon. The urinary bladder demonstrate the presence of a Dobson catheter. The prostate gland is absent perhap s suggesting previous prostatectomy. The aorta demonstrate minimal atherosclerotic disease. There i s no retroperitoneal lymphadenopathy. There is no evidence for ascites. The rest of the soft tissue demonstrate to be grossly unremarkable. IMPRESSION: No evidence for nephrolithiasis and/or hydronephrosis. Moderate size hiatal hernia. Mild fecal stasis. Sigmoid diverticulosis without evidence for acute diverticulitis. Status post prostatectomy. Pneumobilia. Electronically signed by: South Helton MD 03/29/2022 2:47 AM HAIR WORKER Due to temporary technical issues with the PACS/Fluency reporting system, reports are being signed by the in house radiologists without review as a courtesy to insure prompt reporting. The interpreting radiologist is fully responsible for the content of the report
--- NOTE | 2022-03-30 21:04 | P.PN ---
Date of Service: 03/30/22 Subjective: feels slightly better - pain continues, less nausea no new/worsening symptoms ROS: A complete review of systems was performed and is negative except as mentioned above Physical Exam: Gen: NAD, AOx3 HEENT: normal conjunctiva, sclera anicteric CV: regular rate & rhythm, no edema Pulm: non-labored respirations, clear bilaterally Abd: soft, moderate epigastric tenderness vitals reviewed Problem List GERD w/ hiatal hernia Esophageal spasm HTN Depression w/ anxiety Chronic pain Fatty liver, nonalcoholic Urinary incontinence Acute on chronic pancreatitis vs near/borderline DKA denies nausea, continues with pain start CLD 03/30 lipase stable continue pain meds PRN sliding scale, long acting insulin A1c significantly high - 13.5 will need insulin on discharge continue home meds VTE: lovenox Code: full Dispo: home, ~24-48hrs
[2022-03-30] MEDS: MORPHINE 2 MG/ML SYR IV PRN (23:27)
[2022-03-31 03:45] LABS: Hematocrit 32.4 % (36.0-45.0); MCV 74.6 fL (80-100); RBC Red Blood Cell Count 4.35 M/uL (3.86-4.86)
[2022-03-31 03:46] LABS: Absolute Lymphocytes (CBC) 1.6 K/uL (0.7-4.9); Lymphocytes % 25.1 % (15.3-44.8); MPV 8.2 fL (7.6-11.3)
[2022-03-31 04:11] LABS: Albumin 2.6 g/dL (3.4-5.0); Bilirubin Total 0.7 mg/dL (0.2-1.0); Potassium 3.8 mmol/L (3.5-5.1); Protein, Total 6.1 g/dL (6.4-8.2)
[2022-03-31] MEDS: INSULIN -REGULAR HUMAN 50 UNIT/0.5 ML ML SQ SCH ×3 (07:39→12:00)
[2022-03-31] MEDS: Ringers Lactate 1,000 ML IV SCH ×3 (07:40→21:13)
[2022-03-31] MEDS: ENOXAPARIN 40 MG/0.4 ML SQ SCH (08:18)
[2022-03-31] MEDS: AMLODIPINE 10 MG TAB PO SCH (08:18)
[2022-03-31] MEDS: HYDROCODONE/APAP 7.5/325 MG TAB PO PRN (10:38)
--- NOTE | 2022-03-31 16:27 | P.PN ---
Subjective Date of Service: 03/31/22 Chief Complaint: Acute on chronic pancreatitis Patient states she feels better. She states her abdominal pain is better. She has tolerated clear liquid diet. She is also been having bowel movement. Physical Examination - Vital Signs Temperature: 97.9 F Blood Pressure: 137/64 Pulse: 67 Respirations: 16 Pulse Ox (%): 95 Assessment And Plan - Plan Physical Exam: Gen: NAD, AOx3 HEENT: normal conjunctiva, sclera anicteric CV: regular rate & rhythm, no edema Pulm: non-labored respirations, clear bilaterally Abd: soft, no tenderness, normal bowel sounds vitals reviewed Problem List GERD w/ hiatal hernia Esophageal spasm HTN Depression w/ anxiety Chronic pain Fatty liver, nonalcoholic Urinary incontinence Acute on chronic pancreatitis. lipase stable continue pain meds PRN sliding scale, long acting insulin A1c significantly high - 13.5 will need insulin on discharge. Advance to full liquid diet continue home meds VTE: lovenox Code: full Dispo: home in am once patient tolerates diet.
[2022-03-31] MEDS ORDERED: FAMOTIDINE 20 MG/2 ML VIAL IV ONE (19:44)
[2022-03-31] MEDS ORDERED: FAMOTIDINE 20 MG/2 ML VIAL IV PRN (20:58)
[2022-03-31] MEDS: ONDANSETRON 4 MG/2 ML VIAL IV PRN (21:19)
[2022-04-01] MEDS: Ringers Lactate 1,000 ML IV SCH ×3 (01:00→11:16)
[2022-04-01 04:19] LABS: Absolute Lymphocytes (CBC) 1.5 K/uL (0.7-4.9); Hematocrit 30.3 % (36.0-45.0); Lymphocytes % 27.3 % (15.3-44.8); MCV 75.1 fL (80-100); MPV 7.8 fL (7.6-11.3); RBC Red Blood Cell Count 4.04 M/uL (3.86-4.86)
[2022-04-01 04:39] LABS: Albumin 2.5 g/dL (3.4-5.0); Bilirubin Total 0.5 mg/dL (0.2-1.0); Potassium 3.8 mmol/L (3.5-5.1)
[2022-04-01] MEDS: HYDROCODONE/APAP 7.5/325 MG TAB PO PRN ×2 (06:48→11:28)
[2022-04-01] MEDS: ENOXAPARIN 40 MG/0.4 ML SQ SCH (08:35)
[2022-04-01] MEDS: AMLODIPINE 10 MG TAB PO SCH (08:35)
[2022-04-01] MEDS: HYDRALAZINE HCL 20 MG/ML VIAL IV PRN (08:47)
[2022-04-01] MEDS ORDERED: POTASSIUM 25 MEQ EFFERV TAB PO ONE (09:00)
[2022-04-01] MEDS: INSULIN -REGULAR HUMAN 50 UNIT/0.5 ML ML SQ SCH ×2 (10:13→12:15)
[2022-04-01] MEDS ORDERED: SUCRALFATE 1GM/10ML UCUP FT SCH (11:45)
--- NOTE | 2022-04-01 12:28 | P.DS ---
Admission Date: 03/29/22 Discharge Date: 04/01/22 Disposition: ROUTINE DISCHARGE Discharge Condition: FAIR Reason for Admission: Acute on chronic pancreatitis - Problems (1) Acute on chronic pancreatitis Status: Acute (2) Chronic pain Onset Date: 10/18/15 Status: Acute (3) Gastritis Status: Acute Brief History of Present Illness: 76-year-old female with history of chronic pancreatitis, [id number] diabetes, hypertension presented to the emergency department with epigastric pain similar to previous episodes pancreatitis. She reports that her pain began around 8 PM after eating some soup. She denies alcohol use, has had previous cholecystectomy. CT was performed without contrast as there is difficulty obtaining IV access, lipase was within normal limits. Patient admitted for acute on chronic pancreatitis. Hospital Course: Patient admitted to the medical floor and treated with supportive measures including IV hydration. She was also treated with antacids for acid reflux. Lipase level monitored remained normal. Diet was slowly advanced. Patient is currently tolerating full liquid diet. She has microcytic anemia which was stable. Patient clinically improved and deemed stable for discharge. He is given referral for sucralfate. Glimepiride is held due to risk of hypoglycemia with reduced oral intake. Metformin is continued for blood sugar management. Vital Signs/Physical Exam: Temp Pulse Resp BP Pulse Ox 98.0 F 80 16 185/75 H 94 04/01/22 08:00 04/01/22 08:35 04/01/22 08:00 04/01/22 08:35 04/01/22 08:00 General: Alert, In no apparent distress, Oriented x3 HEENT: Mucous membr. moist/pink Neck: JVD not distended Respiratory: Clear to auscultation bilaterally Cardiovascular: No edema, Regular rate/rhythm, Normal S1 S2 Gastrointestinal: Soft and benign, Non-distended Musculoskeletal: No swelling Integumentary: No rashes Neurological: Normal strength at 5/5 x4 extr Urinary: Dobson catheter Laboratory Data at Discharge: WBC 5.40 K/uL (4.3-10.9) 04/01/22 03:28 Hgb 9.9 g/dL (12.0-15.0) L 04/01/22 03:28 Hct 30.3 % (36.0-45.0) L 04/01/22 03:28 Plt Count 190 K/uL (152-406) 04/01/22 03:28 Sodium 142 mmol/L (136-145) 04/01/22 03:28 Potassium 3.8 mmol/L (3.5-5.1) 04/01/22 03:28 BUN 4 mg/dL (7-18) L 04/01/22 03:28 Creatinine 0.62 mg/dL (0.55-1.02) 04/01/22 03:28 Glucose 209 mg/dL (74-106) H 04/01/22 03:28 Total Bilirubin 0.5 mg/dL (0.2-1.0) 04/01/22 03:28 AST 9 U/L (15-37) L 04/01/22 03:28 ALT 13 U/L (13-56) 04/01/22 03:28 Alkaline Phosphatase 90 U/L (45-117) 04/01/22 03:28 Triglycerides Cancelled 03/29/22 03:57 Cholesterol Cancelled 03/29/22 03:57 HDL Cholesterol Cancelled 03/29/22 03:57 Cholesterol/HDL Ratio Cancelled 03/29/22 03:57 Lipase 54 U/L (73-393) L 04/01/22 03:28 Home Medications: Simvastatin 1 tab PO DAILY 09/12/21 Fluconazole 1 tab PO DAILY 09/16/21 Nystatin/Triamcin [Nystatin-Triamcinolone Cream] 30 gm TP BID 42 Days #1 cream..g. 09/16/21 Metformin HCl [Glucophage*] 500 mg PO BIDWM #60 tab 09/17/21 Amlodipine [Norvasc*] 10 mg PO DAILY #30 tab 10/03/21 Pantoprazole [Protonix Tab*] 40 mg PO BID #60 tab 10/03/21 Hydrocodone 7.5/APAP 325 [[place] 7.5/325 mg*] 1 tab PO Q6H PRN #12 tab 04/01/22 Sucralfate [Carafate*] 1 gm PO TID #90 tab 04/01/22 New Medications: Sucralfate [Carafate*] 1 gm PO TID #90 tab Hydrocodone 7.5/APAP 325 [[place] 7.5/325 mg*] 1 tab PO Q6H PRN #12 tab PRN Reason: Pain Diet: ADA Activity: Fall precautions Time spent managing pt's care (in minutes): 33
[2022-04-01 17:06] VITALS: BP 158/74; TEMP 98
== END 2022-04-01 16:20 | disposition home or self-care (01) | DRG 440 ==
LOC: ER 22:47 → ERHOLD 03-29 03:55 → 2ND 03-29 04:56
PROVIDERS: ADMIT Hospitalist; ATTEND Internal Medicine
DX: K85.90 Acute pancreatitis without necrosis or infection, unspecified (principal); K86.1 Other chronic pancreatitis; I10 Essential (primary) hypertension; E11.65 Type 2 diabetes mellitus with hyperglycemia; K44.9 Diaphragmatic hernia without obstruction or gangrene; K76.0 Fatty (change of) liver, not elsewhere classified; F41.8 Other specified anxiety disorders; D50.9 Iron deficiency anemia, unspecified; K22.4 Dyskinesia of esophagus; K21.9 Gastro-esophageal reflux disease without esophagitis; E78.5 Hyperlipidemia, unspecified; R32 Unspecified urinary incontinence; Z90.49 Acquired absence of other specified parts of digestive tract; Z95.5 Presence of coronary angioplasty implant and graft; Z79.84 Long term (current) use of oral hypoglycemic drugs; Z79.899 Other long term (current) drug therapy; Z28.310 Unvaccinated for COVID-19; Z90.710 Acquired absence of both cervix and uterus; Z87.891 Personal history of nicotine dependence; Z20.822 Contact with and (suspected) exposure to COVID-19
CPT/HCPCS: 36415; 74176; 80053; 82947; 83036; 83690; 84484; 85025; 87811; 93005; 99285; J0360; J1650; J1815; J2270; J2405; J2550; J7030; J7120

== ENCOUNTER 2022-05-09 10:38 | Emergency (ER) | payer MEDICARE ==
--- OUTSIDE RECORDS SUMMARY | 2022-05-09 10:47 | XMS REPORT | Continuity of Care Document ---
:1945 Author Organization [facility] t Address [address] [place] [address] Care Team Providers Name Role Phone Dmitry Powell DO Primary Care Physician [phone] Dmitry Powell Attending Clinician Unavailable Ogdestiny_B Attending Clinician Unavailable GAY QIU Attending Clinician Unavailable Campos Admitting Clinician Unavailable GAY QIU Admitting Clinician Unavailable Payers Payer Name Policy Type Policy Effective Date Expiration Date Sour ce Number MEDICARE A B [id number] 2012 00:00:00 [employer] [id number] (MEDICARE 00:00:00 REPLACEMENT HMO) [employer] [id number] Common Spi rit - [facility] [employer] C1 [id number] Common Spi rit - [facility] C1 [id number] Common Spi rit - [facility] C1 [id number] Common Spi rit - [facility] [facility] [id number] Common Spi rit - [facility] C1 [id number] Common Spi rit - [facility] [id number] Common Spi rit - [facility] C1 [id number] Common Spi rit - [facility] [employer] C1 [id number] Common Spi rit [facility] Problems Condition Condition Condition Status Onset [...] stricture 11-09 Luke s 00:00: Medical 00 [place] Mixed Depression Problem Commo n anxiety with Spirit and anxiety - CHI depressive [facility] Hiatal Hiatal Problem Common hernia hernia [facility] Benign Benign Problem Common essential essential Spir it hypertensi hypertensi - CHI on on [facility] Mixed Hyperlipid Problem Commo n hyperlipid emia, Spirit emia mixed [facility] Ulcer of Ulcer of Problem Commo n esophagus esophagus Spir it without - CHI bleeding [facility] [id number] Cystocele Problem Com mon and Spirit rectocele - CHI with [facility] uterovagin Medica l al Center prolapse [id number] Urinary Problem Commo n incontinen Spirit ce, - CHI unspecifie [facility] Kidney Left Problem Common stone nephrolith [facility] iasis [facility] Vitamin D Vitamin D Problem Com mon deficiency deficiency Sp nahed [facility] [id number] Chronic Problem Common gastritis Spirit without - [facility] type [id number] Insomnia, Problem Com mon unspecifie Spirit d type [facility] [id number] Chronic Problem Commo n GERD Spirit [facility] [id number] Fatigue, Problem Commo n unspecifie Spirit d type [facility] [id number] Peripheral Problem Com mon polyneurop Spirit athy [facility] [id number] Nocturnal Problem Commo n enuresis [facility] [id number] Gross Problem Common hematuria Spirit [facility] [id number] Stress Problem Common incontinen Spirit ce due to - CHI pelvic [facility] [id number] Urinary Problem Common tract Spirit infection - CHI without [facility] site Medical unspecifie Center d [id number] Full Problem Commo n [id number] incontinen Spirit ce of - CHI feces [facility] Mixed Urinary Problem Common incontinen incontinen Sp nahed ce ce, mixed - CHI [facility] [id number] Recurrent Problem Com mon UTI Spirit [facility] Duodenitis Duodenitis Problem C ommon Spirit - CH[facility] 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 Center long-term current use of insulin [id number] Status Problem Common post Spirit placement - [facility] of ureteral [facility] stent Medical [place] [id number] Type 2 [place] [address] diabetes Spirit mellitus - CHI with other diabetic [facility] kidney Medical complicati Center on [id number] Incontinen Problem Com mon ce of Spirit feces, - CHI unspecifie [facility] incontinen Medica l ce type Center [id number] Cystitis Problem Commo n Spirit - CH[facility] [id number] Bladder Problem Commo n spasms Spirit [facility] [id number] Lower Problem Common urinary Spirit tract - CHI symptoms ([facility] [id number] Incomplete Problem Co mmon emptying Spirit of bladder - [facility] [id number] [place], [place] [address] joint, Spirit knee, - CHI right [facility] [id number] Pain, Problem Commo n 6115625 joint, Spirit ankle, - CHI right [facility] [id number] Detrusor Problem Comm on instabilit Spirit y - [facility] [id number] Vulvovagin Problem Com mon itis Spirit - CH[facility] [id number] Pelvic Problem Common pain Spirit - [facility] [id number] Urge Problem Common incontinen Spirit ce - [facility] [id number] Chronic Problem Commo n recurrent Spirit pancreatit - CHI is [facility] [id number] Primary Problem 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 itis of - CHI right knee [facility] Chronic Other Problem Common pancreatit chronic Spiri t is pancreatit - CHI is [facility] Disorder Bladder Problem Common of urinary disorder, Spi rit bladder unspecifie - [facility] d [facility] 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 Spirit n of the dysfunctio - CH I urinary n of St bladder bladder, [facility] unspecifie Medica l d [place] [id number] Acute Problem Common vaginitis [facility] Allergies, Adverse Reactions, Alerts Allergy Allergy Status Severity Reaction(s) Onset Inactive Treating Comm ents Source Name Type Date Date Clinician NO KNOWN Allergy Active [facility] Social History Social Habit Start Date Stop Date Quantity Comments Source History of Tobacco Common Spirit - Use [facility] History [facility] Alcohol Std Drinks Medica [facility] History [facility] Alcohol Binge Medical [facility] History [facility] Alcohol Comment Medical C enter Tobacco use and 2018-11-09 2018-11-09 Never used [facility] exposure 00:00:00 00:00:00 [facility] Alcohol intake 2018-11-09 2018-11-09 [facility]:00 non-drinker of Medical Ce nter alcohol (finding) History [facility] 2018-11-09 2018-11-[address] [facility] Alcohol Frequency 00:00:00 00:00:00 [facility] Sex Ass[birth year] At 1945 [address] [facility] 00:00:00 00:00:00 [facility] Smoking Status Start Date Stop Date Source Unknown if ever smoked Common Sp nahed - [facility] Ce nter Never Smoker Common Spirit - [facility] nter Former smoker 2018-11-09 00:00:00 2018-11-09 00:00:00 [facility] Medications Ordered Filled Start Stop [...] Com 07-31 Spirit 00:00: - CHI 00 [facility] Kenalog Kenalog 2-0 No 40mg Common (Triamcinol (Triamcinol 5-26 S pirit one) one) 00:00: - CHI 00 [facility] Lidocaine Lidocaine 2022-0 No 10mg Com 07-31 Spirit 00:00: - CHI 00 [facility] Kenalog Kenalog 2022-0 No 40mg Common (Triamcinol (Triamcinol 5-26 S pirit one) one) 00:00: - CHI 00 [facility] Lidocaine Lidocaine 2-0 No 10mg Com 07-31 Spirit 00:00: - CHI [facility] Kenalog Kenalog 2022-0 No 40mg Common (Triamcinol (Triamcinol 5-26 S pirit one) one) 00:00: - CHI 00 [facility] Lidocaine Lidocaine 2022-0 No 10mg Com 07-31 Spirit 00:00: - CHI 00 [facility] Kenalog Kenalog 2022-0 No 40mg Common (Triamcinol (Triamcinol 5-26 S pirit one) one) 00:00: - CHI 00 [facility] Lidocaine Lidocaine 2022-0 No 10mg Com 07-31 Spirit 00:00: - CHI 00 [facility] Kenalog Kenalog 2022-0 No 40mg Common (Triamcinol (Triamcinol 5-26 S pirit one) one) 00:00: - CHI 00 [facility] Lidocaine Lidocaine 2-0 No 10mg Com 07-31 Spirit 00:00: - CHI 00 [facility] Kenalog Kenalog 2-0 No 40mg Common (Triamcinol (Triamcinol 5-26 S pirit one) one) 00:00: - CHI 00 [facility] Lidocaine Lidocaine 2-0 No 10mg Com 07-31 Spirit 00:00: - CHI 00 [facility] Kenalog Kenalog 2-0 No 40mg Common (Triamcinol (Triamcinol 5-26 S pirit one) one) 00:00: - CHI 00 [facility] Lidocaine Lidocaine 2-0 No 10mg Com 07-31 Spirit 00:00: - CHI 00 [facility] Kenalog Kenalog 2-0 No 40mg Common (Triamcinol (Triamcinol 5-26 S pirit one) one) 00:00: - CHI [facility] Lidocaine Lidocaine 2-0 No 10mg Com 07-31 Spirit 00:00: - CHI 00 [facility] Kenalog Kenalog 2-0 No 40mg Common (Triamcinol (Triamcinol 5-26 S pirit one) one) 00:00: - CHI 00 [facility] Lidocaine Lidocaine 2-0 No 10mg Com 07-31 Spirit 00:00: - CHI 00 [facility] Kenalog Kenalog 2-0 No 40mg Common (Triamcinol (Triamcinol 5-26 S pirit one) one) 00:00: - CHI [facility] Lidocaine Lidocaine 2-0 No 10mg Com 07-31 Spirit 00:00: - CHI 00 [facility] Kenalog Kenalog 2-0 No 40mg Common (Triamcinol (Triamcinol 5-26 S pirit one) one) 00:00: - CHI [facility] Lidocaine Lidocaine 2-0 No 10mg Com 07-31 Spirit 00:00: - CHI 00 [facility] Kenalog Kenalog 2-0 No 40mg Common (Triamcinol (Triamcinol 5-26 S pirit one) one) 00:00: - CHI 00 [facility] Lidocaine Lidocaine 2-0 No 10mg Com 07-31 Spirit 00:00: - CHI 00 [facility] Kenalog Kenalog 2-0 No 40mg Common (Triamcinol (Triamcinol 5-26 S pirit one) one) 00:00: - CHI 00 [facility] Lidocaine Lidocaine 2-0 No 10mg Com 07-31 Spirit 00:00: - CHI 00 [facility] Kenalog Kenalog 2-0 No 40mg Common (Triamcinol (Triamcinol 5-26 S pirit one) one) 00:00: - CHI 00 [facility] Lidocaine Lidocaine 2-0 No 10mg Com 07-31 Spirit 00:00: - CHI 00 [facility] Kenalog Kenalog 2-0 No 40mg Common (Triamcinol (Triamcinol 5-26 S pirit one) one) 00:00: - CHI 00 [facility] Lidocaine Lidocaine 2-0 No 10mg Com 07-31 Spirit 00:00: - CHI 00 [facility] Kenalog Kenalog 2-0 No 40mg Common (Triamcinol (Triamcinol 5-26 S pirit one) one) 00:00: - CHI 00 [facility] Lidocaine Lidocaine 2-0 No 10mg Com 07-31 Spirit 00:00: - CHI 00 [facility] Kenalog Kenalog 2-0 No 40mg Common (Triamcinol (Triamcinol 5-26 S pirit one) one) 00:00: - CHI 00 [facility] Lidocaine Lidocaine 2-0 No 10mg Com 07-31 Spirit 00:00: - CHI 00 [facility] Kenalog Kenalog 2-0 No 40mg Common (Triamcinol (Triamcinol 5-26 S pirit one) one) 00:00: - CHI 00 [facility] Lidocaine Lidocaine 2-0 No 10mg Com 07-31 Spirit 00:00: - CHI 00 [facility] Kenalog Kenalog 2-0 No 40mg Common (Triamcinol (Triamcinol 5-26 S pirit one) one) 00:00: - CHI 00 [facility] amitriptyli amitriptyli 0 No amitriptyl ne [...] pirit e) e) 00:00: - CHI 00 [facility] Rocephin Rocephin 2020- No 1g Commo n (Ceftriaxon (Ceftriaxon 1-22 S pirit e) e) 00:00: - CHI 00 [facility] Rocephin Rocephin 2020- No 1g Commo n (Ceftriaxon (Ceftriaxon 1-22 S pirit e) e) 00:00: - CHI 00 [facility] Rocephin Rocephin 2020- No 1g Commo n (Ceftriaxon (Ceftriaxon 1-22 S pirit e) e) 00:00: - CHI 00 [facility] Rocephin Rocephin 2020-03 No 1g Commo n (Ceftriaxon (Ceftriaxon 1-22 S pirit e) e) 00:00: - CHI 00 [facility]03 No 1g Commo n (Ceftriaxon (Ceftriaxon 1-22 S pirit e) e) 00:00: - CHI 00 [facility] 2020-03 No 1g Commo n (Ceftriaxon (Ceftriaxon 1-22 S pirit e) e) 00:00: - CHI 00 [facility] 2020-03 No 1g Commo n (Ceftriaxon (Ceftriaxon 1-22 S pirit e) e) 00:00: - CHI 00 [facility] 2020-03 No 1g Commo n (Ceftriaxon (Ceftriaxon 1-22 S pirit e) e) 00:00: - CHI 00 [facility] 2020-03 No 1g Commo n (Ceftriaxon (Ceftriaxon 1-22 S pirit e) e) 00:00: - CHI 00 [facility] 2020-03 No 1g Commo n (Ceftriaxon (Ceftriaxon 1-22 S pirit e) e) 00:00: - CHI 00 [facility] 2020-03 No 1g Commo n (Ceftriaxon (Ceftriaxon 1-22 S pirit e) e) 00:00: - CHI 00 [facility] No 1g Commo n (Ceftriaxon (Ceftriaxon 1-22 S pirit e) e) 00:00: - CHI 00 [facility]03 No 1g Commo n (Ceftriaxon (Ceftriaxon 1-22 S pirit e) e) 00:00: - CHI 00 [facility]03 No 1g Commo n (Ceftriaxon (Ceftriaxon 1-22 S pirit e) e) 00:00: - CHI 00 [facility] 2020-03 No 1g Commo n (Ceftriaxon (Ceftriaxon 1-22 S pirit e) e) 00:00: - CHI 00 [facility] 2020[facility]03 No 1g Commo n (Ceftriaxon (Ceftriaxon 1-22 S pirit e) e) 00:00: - CHI 00 [facility] 2020-03 No 1g Commo n (Ceftriaxon (Ceftriaxon 1-22 S pirit e) e) 00:00: - CHI 00 [facility] 2020-03 No 1g Commo n (Ceftriaxon (Ceftriaxon 1-22 S pirit e) e) 00:00: - CHI 00 [facility] 2020-03 No 1g Commo n (Ceftriaxon (Ceftriaxon 1-22 S pirit e) e) 00:00: - CHI 00 [facility] 2020-03 No 1g Commo n (Ceftriaxon (Ceftriaxon 1-22 S pirit e) e) 00:00: - CHI 00 [facility]-03 No 1g Commo n (Ceftriaxon (Ceftriaxon 1-22 S pirit e) e) 00:00: - CHI 00 [facility] 2020-03 No 1g Commo n (Ceftriaxon (Ceftriaxon 1-22 S pirit e) e) 00:00: - CHI 00 [facility] 2020-03 No 1g Commo n (Ceftriaxon (Ceftriaxon 1-22 S pirit e) e) 00:00: - CHI 00 [facility] 2020-03 No 1g Commo n (Ceftriaxon (Ceftriaxon 1-22 S pirit e) e) 00:00: - CHI 00 [facility] 2020-03 No 1g Commo n (Ceftriaxon (Ceftriaxon 1-22 S pirit e) e) 00:00: - CHI 00 [facility] 2020-03 No 1g Commo n (Ceftriaxon (Ceftriaxon 1-22 S pirit e) e) 00:00: - CHI 00 [facility] VESIcare 10 VESIcare 10 2020-032- No [...] Center tablet daily . lipase-prot 2019-0 Yes [id number]{ Take [facility] 9-06 lipase} 36,000 [...] Center tablet daily . lipase-prot 2019-0 Yes [id number]{ Take [facility] 9-06 lipase} 36,000 [...] Center tablet daily . lipase-prot 2019-0 Yes [id number]{ Take [facility] 9-06 lipase} 36,000 [...] Center tablet daily . lipase-prot 2019-0 Yes [id number]{ Take [facility] 9-06 lipase} 36,000 [...] Center tablet daily . lipase-prot 2019-0 Yes [id number]{ Take [facility] 9-06 lipase} 36,000 [place] es e (CREON) 17:24: units of Medi oralia 36,000-114, [address] 000- mouth 3 180,000 (three) unit CpDR times capsule daily with meals. metoprolol 20190 Yes 50mg QD Take [address] (LOPRESSOR) 9-06 by mouth Luke s 50 MG 17:24: daily. Medical tablet 08 Center gabapentin 0 Yes 100mg Q.5D Take [address] (NEURONTIN) 9-06 mg by [facility] 100 MG 17:24: mouth 2 Medical capsule 08 (two) Center times daily. lisinopril 20190 Yes 40mg QD Take [address] (PRINIVIL,Z 9-06 by mouth Luke s ESTRIL) 40 17:24: daily. Medic al MG tablet 08 Center albuterol 20190 Yes 2.5mg Take 0.[address] (PROVENTIL) [...] on every 4 (four) hours as needed. Kenalog Kenalog 2019-0 No 40mg Common (Triamcinol (Triamcinol 2-18 S pirit one) one) 00:00: - CHI 00 [facility] Kenalog Kenalog 2019-0 No 40mg Common (Triamcinol (Triamcinol 2-18 S pirit one) one) 00:00: - CHI 00 [facility] Kenalog Kenalog 2019-0 No 40mg Common (Triamcinol (Triamcinol 2-18 S pirit one) one) 00:00: - CHI 00 [facility] Kenalog Kenalog 2019-0 No 40mg Common (Triamcinol (Triamcinol 2-18 S pirit one) one) 00:00: - CHI 00 [facility] Kenalog Kenalog 2019-0 No 40mg Common (Triamcinol (Triamcinol 2-18 S pirit one) one) 00:00: - CHI 00 [facility] Kenalog Kenalog 2019-0 No 40mg Common (Triamcinol (Triamcinol 2-18 S pirit one) one) 00:00: - CHI 00 [facility] Kenalog Kenalog 2019-0 No 40mg Common (Triamcinol (Triamcinol 2-18 S pirit one) one) 00:00: - CHI 00 [facility] Kenalog Kenalog 2019-0 No 40mg Common (Triamcinol (Triamcinol 2-18 S pirit one) one) 00:00: - CHI 00 [facility] Kenalog Kenalog 2019-0 No 40mg Common (Triamcinol (Triamcinol 2-18 S pirit one) one) 00:00: - CHI 00 [facility] Kenalog Kenalog 2019-0 No 40mg Common (Triamcinol (Triamcinol 2-18 S pirit one) one) 00:00: - CHI 00 [facility] Kenalog Kenalog 2019-0 No 40mg Common (Triamcinol (Triamcinol 2-18 S pirit one) one) 00:00: - CHI 00 [facility] Kenalog Kenalog 2019-0 No 40mg Common (Triamcinol (Triamcinol 2-18 S pirit one) one) 00:00: - CHI 00 [facility] Kenalog Kenalog 2019-0 No 40mg Common (Triamcinol (Triamcinol 2-18 S pirit one) one) 00:00: - CHI 00 [facility] Kenalog Kenalog 2019-0 No 40mg Common (Triamcinol (Triamcinol 2-18 S pirit one) one) 00:00: - CHI 00 [facility] Kenalog Kenalog 2019-0 No 40mg Common (Triamcinol (Triamcinol 2-18 S pirit one) one) 00:00: - CHI 00 [facility] Kenalog Kenalog 2019-0 No 40mg Common (Triamcinol (Triamcinol 2-18 S pirit one) one) 00:00: - CHI 00 [facility] Kenalog Kenalog 2019-0 No 40mg Common (Triamcinol (Triamcinol 2-18 S pirit one) one) 00:00: - CHI 00 [facility] Kenalog Kenalog 2019-0 No 40mg Common (Triamcinol (Triamcinol 2-18 S pirit one) one) 00:00: - CHI 00 [facility] Kenalog Kenalog 2019-0 No 40mg Common (Triamcinol (Triamcinol 2-18 S pirit one) one) 00:00: - CHI 00 [facility] Kenalog Kenalog 2019-0 No 40mg Common (Triamcinol (Triamcinol 2-18 S pirit one) one) 00:00: - CHI 00 [facility] Mina Kenalog 2019-0 No 40mg Common (Triamcinol (Triamcinol 2-18 S pirit one) one) 00:00: - CHI 00 [facility] Mina Kenalog 2019-0 No 40mg Common (Triamcinol (Triamcinol 2-18 S pirit one) one) 00:00: - CHI 00 [facility] Mina Kenalog 2019-0 No 40mg Common (Triamcinol (Triamcinol 2-18 S pirit one) one) 00:00: - CHI 00 [facility] Mina Kenalog 2019-0 No 40mg Common (Triamcinol (Triamcinol 2-18 S pirit one) one) 00:00: - CHI 00 [facility] Mina Kenregulo 2019-0 No 40mg Common (Triamcinol (Triamcinol 2-18 S pirit one) one) 00:00: - CHI 00 [facility] Mina Kenalog 2019-0 No 40mg Common (Triamcinol (Triamcinol 2-18 S pirit one) one) 00:00: - CHI 00 [facility] Mina Kenalog 2019-0 No 40mg Common (Triamcinol (Triamcinol 2-18 S pirit one) one) 00:00: - CHI 00 [facility] Gentamicin Gentamicin 2018-1 No 80mg C ommon 80mg 80mg 0-30 Spirit 00:00: - CHI 00 [facility] Gentamicin Gentamicin 2018-1 No 80mg C ommon 80mg 80mg 0-30 Spirit 00:00: - CHI 00 [facility] Gentamicin Gentamicin 2018-1 No 80mg C ommon 80mg 80mg 0-30 Spirit 00:00: - CHI 00 [facility] Gentamicin Gentamicin 2018-1 No 80mg C ommon 80mg 80mg 0-30 Spirit 00:00: - CHI 00 [facility] Gentamicin Gentamicin 2018-1 No 80mg C ommon 80mg 80mg 0-30 Spirit 00:00: - CHI 00 [facility] Gentamicin Gentamicin 2018-1 No 80mg C ommon 80mg 80mg 0-30 Spirit 00:00: - CHI 00 [facility] Gentamicin Gentamicin 2018-1 No 80mg C ommon 80mg 80mg 0-30 Spirit 00:00: - CHI 00 [facility] Gentamicin Gentamicin 2017-1 No 80mg C ommon 80mg 80mg 0-30 Spirit 00:00: - CHI 00 [facility] Gentamicin Gentamicin 2017-1 No 80mg C ommon 80mg 80mg 0-30 Spirit 00:00: - CHI 00 [facility] Gentamicin Gentamicin 2017-1 No 80mg C ommon 80mg 80mg 0-30 Spirit 00:00: - CHI 00 [facility] Gentamicin Gentamicin 2017-1 No 80mg C ommon 80mg 80mg 0-30 Spirit 00:00: - CHI 00 [facility] Gentamicin Gentamicin 2017- No 80mg C ommon 80mg 80mg 0-30 Spirit 00:00: - CHI 00 [facility] Gentamicin Gentamicin 2017-1 No 80mg C ommon 80mg 80mg 0-30 Spirit 00:00: - CHI 00 [facility] Gentamicin Gentamicin 2017- No 80mg C ommon 80mg 80mg 0-30 Spirit 00:00: - CHI 00 [facility] Gentamicin Gentamicin 2017-1 No 80mg C ommon 80mg 80mg 0-30 Spirit 00:00: - CHI 00 [facility] Gentamicin Gentamicin 2017- No 80mg C ommon 80mg 80mg 0-30 Spirit 00:00: - CHI 00 [facility] Gentamicin Gentamicin 2017-1 No 80mg C ommon 80mg 80mg 0-30 Spirit 00:00: - CHI 00 [facility] Gentamicin Gentamicin 2017-1 No 80mg C ommon 80mg 80mg 0-30 Spirit 00:00: - CHI 00 [facility] Gentamicin Gentamicin 2017-1 No 80mg C ommon 80mg 80mg 0-30 Spirit 00:00: - CHI 00 [facility] Gentamicin Gentamicin 2017-1 No 80mg C ommon 80mg 80mg 0-30 Spirit 00:00: - CHI 00 [facility] Gentamicin Gentamicin 2017-1 No 80mg C ommon 80mg 80mg 0-30 Spirit 00:00: - CHI 00 [facility] Gentamicin Gentamicin 2017-1 No 80mg C ommon 80mg 80mg 0-30 Spirit 00:00: - CHI 00 [facility] Gentamicin Gentamicin 2017-1 No 80mg C ommon 80mg 80mg 030 Spirit 00:00: - CHI [facility] Gentamicin Gentamicin 2018-1 No 80mg C ommon 80mg 80mg 0 Spirit 00:00: - CHI [facility] Gentamicin Gentamicin 2018-1 No 80mg C ommon 80mg 80mg 0 Spirit 00:00: - CHI [facility] Gentamicin Gentamicin 2018-1 No 80mg C ommon 80mg 80mg 0 Spirit 00:00: - CHI [facility] Gentamicin Gentamicin 2018-1 No 80mg C ommon 80mg 80mg 0 Spirit 00:00: - CHI [facility] Gentamicin Gentamicin 2018-0 No 240mg Common 80mg 80mg 09-30 Spirit 00:00: - CHI [facility] Gentamicin Gentamicin 2018-0 No 240mg Common 80mg 80mg 09-30 Spirit 00:00: - CHI [facility] Gentamicin Gentamicin 2018-0 No 240mg Common 80mg 80mg 09-30 Spirit 00:00: - CHI [facility] Gentamicin Gentamicin 2018-0 No 240mg Common 80mg 80mg 09-30 Spirit 00:00: - CHI [facility] Gentamicin Gentamicin 2018-0 No 240mg Common 80mg 80mg 09-30 [facility] 00:00: - [facility] Gentamicin Gentamicin 2018-0 No 240mg Common 80mg 80mg 09-30 [facility] 00:00: - [facility] Gentamicin Gentamicin 2018-0 No 240mg Common 80mg 80mg 09-30 Spirit 00:00: - [facility] Gentamicin Gentamicin 2018-0 No 240mg Common 80mg 80mg 09-30 [facility] 00:00: - [facility] Gentamicin Gentamicin 2018-0 No 240mg Common 80mg 80mg 09-30 [facility] 00:00: - [facility] Gentamicin Gentamicin 2018-0 No 240mg Common 80mg 80mg 09-30 Spirit 00:00: - [facility] Gentamicin Gentamicin 2018-0 No 240mg Common 80mg 80mg 09-30 [facility] 00:00: - [facility] Gentamicin Gentamicin 2018-0 No 240mg Common 80mg 80mg 09-30 [facility] 00:00: - [facility] Gentamicin Gentamicin 2018-0 No 240mg Common 80mg 80mg 09-30 [facility] 00:00: - [facility] Gentamicin Gentamicin 2018-0 No 240mg Common 80mg 80mg 09-30 [facility] 00:00: - [facility] Gentamicin Gentamicin 2018-0 No 240mg Common 80mg 80mg 09-30 [facility] 00:00: - [facility] Gentamicin Gentamicin 2018-0 No 240mg Common 80mg 80mg 09-30 [facility] 00:00: - [facility] Gentamicin Gentamicin 2018-0 No 240mg Common 80mg 80mg 09-30 [facility] 00:00: - [facility] Gentamicin Gentamicin 2017-0 No 240mg Common 80mg 80mg 09-30 [facility] 00:00: - [facility] Gentamicin Gentamicin 2017-0 No 240mg Common 80mg 80mg 09-30 [facility] 00:00: - [facility] Gentamicin Gentamicin 2017-0 No 240mg Common 80mg 80mg 09-30 [facility] 00:00: - [facility] Gentamicin Gentamicin 2017-0 No 240mg Common 80mg 80mg 09-30 [facility] 00:00: - [facility] Gentamicin Gentamicin 2017-0 No 240mg Common 80mg 80mg 09-30 Spirit 00:00: - [facility] Gentamicin Gentamicin 2017-0 No 240mg Common 80mg 80mg 09-30 [facility] 00:00: - [facility] Gentamicin Gentamicin 2017-0 No 240mg Common 80mg 80mg 09-30 [facility] 00:00: - [facility] Gentamicin Gentamicin 2017-0 No 240mg Common 80mg 80mg 09-30 [facility] 00:00: - [facility] Gentamicin Gentamicin 2017-0 No 240mg Common 80mg 80mg 09-30 [facility] 00:00: - [facility] Gentamicin Gentamicin 2017-0 No 240mg Common 80mg 80mg 09-30 [facility] 00:00: - [facility] Famotidine Famotidine No 1{table BID Famotidine 10 [...] 40 MG Creon Creon No TID Creon [id number] 52112-01675 52594-1365 UNIT UNIT 0 UNIT Protonix 40 Protonix [...] - - Creon Creon No TID Creon 37531-92352 95505-13955 7[address] UNIT UNIT 0 UNIT Protonix 40 Protonix [...] MG eded} Creon Creon No TID Creon 90764-93288 14077-19782 [phone] UNIT UNIT 0 UNIT Pantoprazol Pantoprazol No [...] e_eveni ng} Creon Creon No TID Creon 45254-33225 [phone] [phone] UNIT UNIT 0 UNIT Metoprolol Metoprolol No [...] e_eveni ng} Creon Creon No TID Creon 80942-34229 10026-47965 [phone] UNIT UNIT 0 UNIT Metoprolol Metoprolol No [...] e_eveni ng} Creon Creon No TID Creon 59471-04110 [phone] [phone] UNIT UNIT 0 UNIT Metoprolol Metoprolol No [...] re_bedt rosalia} Creon Creon No TID Creon 76281-00996 11687-64151 [phone] UNIT UNIT 0 UNIT Metoprolol Metoprolol No [...] re_bedt rosalia} Creon Creon No TID Creon 32487-66279 53493-31143 [phone] UNIT UNIT 0 UNIT Metoprolol Metoprolol No [...] re_bedt rosalia} Creon Creon No TID Creon 58444-09809 60510-34679 23460-1992 UNIT UNIT 0 UNIT Metoprolol Metoprolol No [...] 40 MG Creon Creon No TID Creon 41765-17788 98448-52402 9[address] UNIT UNIT 0 UNIT cloNIDine cloNIDine No [...] 40 MG Creon Creon No TID Creon 27876-19886 37975-70390 586[address] UNIT UNIT 0 UNIT cloNIDine cloNIDine No [...] 40 MG Creon Creon No TID Creon 32148-50697 82924-66070 [phone] UNIT UNIT 0 UNIT traZODone traZODone No [...] 40 MG Creon Creon No TID Creon 76416-09960 02987-63820 [address] UNIT UNIT 0 UNIT cloNIDine cloNIDine No [...] MG dtime} Creon Creon No TID Creon 79018-44856 08231-66011 [phone] UNIT UNIT 0 UNIT Citalopram Citalopram No [...] MG dtime} Creon Creon No TID Creon 30184-75270 23592-33455 45[address] UNIT UNIT 0 UNIT Citalopram Citalopram No [...] MG dtime} Creon Creon No TID Creon 28936-60572 94872-68524 [address] UNIT UNIT 0 UNIT Citalopram Citalopram No [...] MG dtime} Creon Creon No TID Creon 86265-46609 99807-95992 8[address] UNIT UNIT 0 UNIT traZODone traZODone No [...] 40 MG Creon Creon No TID Creon 96772-87965 83298-20713 9[address] UNIT UNIT 0 UNIT Zestoretic Zestoretic No [...] MG eded} Creon Creon No TID Creon 73668-38116 25175-18215 [address] UNIT UNIT 0 UNIT Citalopram Citalopram No [...] MG eded} Creon Creon No TID Creon 78012-27056 20054-99904 [address] UNIT UNIT 0 UNIT Citalopram Citalopram No [...] MG eded} Creon Creon No TID Creon 89954-90651 10943-46619 7[address] UNIT UNIT 0 UNIT Citalopram Citalopram No [...] MG eded} Creon Creon No TID Creon 04417-76546 24986-99550 [address] UNIT UNIT 0 UNIT Citalopram Citalopram No [...] MG eded} Creon Creon No TID Creon 64136-05066 45067-74322 42862-5022 UNIT UNIT 0 UNIT Citalopram Citalopram No [...] MG eded} Creon Creon No TID Creon 07572-66446 74550-84186 12[address]7887 UNIT UNIT 0 UNIT Citalopram Citalopram No [...] 50 MG Creon Creon No TID Creon 33694-27068 42847-17728 [address] UNIT UNIT 0 UNIT Culturelle Culturelle No [...] 50 MG Creon Creon No TID Creon 18677-53855 29341-14897 288[address]13 UNIT UNIT 0 UNIT Culturelle Culturelle No [...] 40 MG Creon Creon No TID Creon 25649-72895 98221-21025 7[address] UNIT UNIT 0 UNIT Metoprolol Metoprolol No 1{table BID Metoprolol Tartrate 50 Tartrate 50 t_with_ Tartrate MG MG food} 50 MG Metoprolol Metoprolol No 1{table BID Metoprolol Tartrate 50 Tartrate 50 t_with_ Tartrate MG MG food} 50 MG Creon Creon No TID Creon 26664-67237 14629-28779 42666[address]8032 UNIT UNIT 0 UNIT Culturelle Culturelle No [...] 40 MG Creon Creon No TID Creon 27542-03185 72052-01527 [address] UNIT UNIT 0 UNIT HYDROcodone HYDROcodone No [...] 40 MG Creon Creon No TID Creon 24357-86120 04437-26188 [address] UNIT UNIT 0 UNIT Neurontin Neurontin No [...] 40 MG Creon Creon No TID Creon 28262-91604 03070-97229 11391-4969 UNIT UNIT 0 UNIT Neurontin Neurontin No [...] 40 MG Creon Creon No TID Creon 19080-37757 62558-31646 72[address] UNIT UNIT 0 UNIT Neurontin Neurontin No [...] 40 MG Creon Creon No TID Creon 08934-50589 07097-69324 9[address] UNIT UNIT 0 UNIT Neurontin Neurontin No [...] 40 MG Creon Creon No TID Creon 27395-00448 16279-64002 75012-5314 UNIT UNIT 0 UNIT Neurontin Neurontin No [...] 40 MG Creon Creon No TID Creon 80363-37525 86669-65278 14941-3757 UNIT UNIT 0 UNIT Neurontin Neurontin No [...] 40 MG Creon Creon No TID Creon 85499-14127 33226-94650 56957[address]2532 UNIT UNIT 0 UNIT Neurontin Neurontin No [...] re_bedt rosalia} Creon Creon No TID Creon 07184-77415 15380-37457 [address] UNIT UNIT 0 UNIT HYDROcodone HYDROcodone No 1{table QID HYDROcodon -Acetaminop -Acetaminop t_as_ne e-Acetamin hen 7.5-325 hen 7.5-325 eded} ophen MG MG 7.5-325 MG Famotidine Famotidine No 1{table BID Famotidine 10 MG 10 MG t_as_ne 10 MG eded} Culturelle Culturelle No Culturelle - - - Protonix 40 Protonix 40 No 1{table QD Protonix MG MG t} 40 MG Creon Creon No TID Creon 16919-77196 95718-50346 74621[address]360[address] UNIT UNIT 0 UNIT Neurontin Neurontin No [...] 40 MG Creon Creon No TID Creon 69497-29212 25913-77839 377[address]33 UNIT UNIT 0 UNIT Neurontin Neurontin No 1{capsu QD Neurontin 300 MG 300 MG le_befo 300 MG re_bedt rosalia} Pantoprazol Pantoprazol No 1{table QD Pantoprazo e Sodium 40 e Sodium 40 t} le Sodium MG MG 40 MG Clotrimazol Clotrimazol 2020- No Dmitry 1 Common e e 10-12 [facility] applicatio [facility] 00:00 n to - [facility] :00 affected [facility] Immunizations Ordered Immunization Filled Immunization Date Status Commen ts Source Name Name Mina Enriquez 2018-04-25 Completed [facility] (Triamcinolone) (Triamcinolone) 09:55:00 [facility] Mina Enriquez 2018-04-25 Completed [facility] (Triamcinolone) (Triamcinolone) 09:55:00 [facility] Mina Enriquez 2018-04-25 Completed [facility] (Triamcinolone) (Triamcinolone) 09:55:00 - [facility] Mina Enriquez 2018-04-25 Completed [facility] (Triamcinolone) (Triamcinolone) 09:55:00 [facility] Mina Enriquez 2018-04-25 Completed [facility] (Triamcinolone) (Triamcinolone) 09:55:00 [facility] Mina Enriquez 2018-04-25 Completed [facility] (Triamcinolone) (Triamcinolone) 09:55:00 - [facility] Mina 2018-04-25 Completed [facility] (Triamcinolone) (Triamcinolone) 09:55:00 [facility] Gentamicin 80mg Gentamicin 80mg 2018-01-04 Completed Comm on [facility] 11:59:00 [facility] Gentamicin 80mg Gentamicin 80mg 2018-01-04 Completed Comm on [facility] 11:59:00 [facility] Gentamicin 80mg Gentamicin 80mg 2018-01-04 Completed Comm on [facility] 11:59:00 [facility] Gentamicin 80mg Gentamicin 80mg 2018-01-04 Completed Comm on [facility] 11:59:00 [facility] Gentamicin 80mg Gentamicin 80mg 2018-01-04 Completed Comm on [facility] 11:59:00 [facility] Gentamicin 80mg Gentamicin 80mg 2018-01-04 Completed Comm on [facility] 11:59[facility]00 [facility] Gentamicin 80mg Gentamicin 80mg 2018-01-04 Completed Comm on [facility] 11:59:00 [facility] Gentamicin 80mg Gentamicin 80mg 2017-09-30 Completed Comm on [facility] 15:54:00 [facility] Gentamicin 80mg Gentamicin 80mg 2017-09-30 Completed Comm on [facility] 15:54:00 [facility] Gentamicin 80mg Gentamicin 80mg 2017-09-30 Completed Comm on [facility] 15:54:00 [facility] Gentamicin 80mg Gentamicin 80mg 2017-09-30 Completed Comm on [facility] 15:54:00 [facility] Gentamicin 80mg Gentamicin 80mg 2017-09-30 Completed Comm on [facility] 15:54:00 [facility] Gentamicin 80mg Gentamicin 80mg 2017-09-30 Completed Comm on [facility] 15:54:00 [facility] Gentamicin 80mg Gentamicin 80mg 2017-09-30 Completed Comm on [facility] 15:54:00 [facility] Vital Signs Vital Name Observation Time Observation Value Comments Source height 2022-03-11 13:00:00 61 [in_i] [facility] weight 2022-03-11 13:00:00 170 [lb_av] [facility] temperature 2022-03-11 13:00:00 97.3 [degF] [facility] bmi 2022-03-11 13:00:00 32.12 kg/m2 [facility] oximetry 2022-03-11 13:00:00 96 % [facility] respiratory rate 2022-03-11 13:00:00 16 /min Comm on [facility] blood pressure 2022-03-11 13:00:00 138 mm[Hg] Common [facility] - systolic [facility] blood pressure 2022-03-11 13:00:00 96 mm[Hg] Common [facility] - diastolic [facility] blood pressure 2022-02-19 09:45:00 132 mm[Hg] Common [facility] - systolic [facility] blood pressure 2022-02-19 09:45:00 68 mm[Hg] Common [facility] - diastolic [facility] height 2022-02-19 09:45:00 61 [in_i] Common [facility] weight 2022-02-19 09:45:00 165 [lb_av] [facility] temperature 2022-02-19 09:45:00 97.8 [degF] [facility] bmi 2022-02-19 09:45:00 31.17 kg/m2 [facility] oximetry 2022-02-19 09:45:00 96 % [facility] respiratory rate 2022-02-19 09:45:00 18 /min Comm on [facility] height 2022-01-14 11:00:00 61 [in_i] [facility] weight 2022-01-14 11:00:00 165 [lb_av] Common [facility] temperature 2022-01-14 11:00:00 97.8 [degF] [facility] bmi 2022-01-14 11:00:00 31.17 kg/m2 [facility] oximetry 2022-01-14 11:00:00 97 % [facility] respiratory rate 2022-01-14 11:00:00 16 /min Comm on [facility] blood pressure 2022-01-14 11:00:00 142 mm[Hg] Common [facility] - systolic [facility] blood pressure 2022-01-14 11:00:00 89 mm[Hg] [facility] - diastolic [facility] height 2021-08-01 13:30:00 61 [in_i] [facility] - [facility] weight 2021-08-01 13:30:00 181 [lb_av] [facility] - [facility] temperature 2021-08-01 13:30:00 98 [degF] Common [facility] - [facility] bmi 2021-08-01 13:30:00 34.2 kg/m2 [facility] - [facility] blood pressure 2021-08-01 13:30:00 136 mm[Hg] [facility] - systolic [facility] blood pressure 2021-08-01 13:30:00 76 mm[Hg] [facility] - diastolic [facility] height 2021-07-31 09:30:00 61 [in_i] Common [facility] - [facility] weight 2021-07-31 09:30:00 180 [lb_av] [facility] - [facility] bmi 2021-07-31 09:30:00 34.01 kg/m2 [facility] - [facility] blood pressure 2021-07-31 09:30:00 144 mm[Hg] [facility] - systolic [facility] blood pressure 2021-07-31 09:30:00 80 mm[Hg] [facility] - diastolic [facility] height 2021-07-25 11:30:00 61 [in_i] Common [facility] - [facility] weight 2021-07-25 11:30:00 180 [lb_av] Common [facility] - [facility] temperature 2021-07-25 11:30:00 98.1 [degF] Common [facility] - [facility] bmi 2021-07-25 11:30:00 34.01 kg/m2 [facility] S [facility] oximetry 2021-07-25 11:30:00 96 % [facility] S [facility] respiratory rate 2021-07-25 11:30:00 16 /min Comm on [facility] blood pressure 2021-07-25 11:30:00 146 mm[Hg] [facility] - systolic [facility] blood pressure 2021-07-25 11:30:00 88 mm[Hg] [facility] - diastolic [facility] height 2021-04-21 14:15:00 61 [in_i] [facility] 2021-04-21 14:15:00 180 [lb_av] [facility] temperature 2021-04-21 14:15:00 97.6 [degF] [facility] bmi 2021-04-21 14:15:00 34.01 kg/m2 [facility] oximetry 2021-04-21 14:15:00 94 % [facility] respiratory rate 2021-04-21 14:15:00 18 /min Comm on [facility] blood pressure 2021-04-21 14:15:00 136 mm[Hg] [facility] - systolic [facility] blood pressure 2021-04-21 14:15:00 68 mm[Hg] [facility] - diastolic [facility] height 2021-04-14 14:00:00 61 [in_i] Common [facility] weight 2021-04-14 14:00:00 180 [lb_av] [facility] bmi 2021-04-14 14:00:00 34.01 kg/m2 Common S pirit - [facility] blood pressure 2021-04-14 14:00:00 132 mm[Hg] [facility] - systolic [facility] blood pressure 2021-04-14 14:00:00 80 mm[Hg] [facility] - diastolic [facility] height 2021-03-06 16:30:00 61 [in_i] Common [facility] weight 2021-03-06 16:30:00 180 [lb_av] [facility] temperature 2021-03-06 16:30:00 97.8 [degF] Common S pirit - [facility] bmi 2021-03-06 16:30:00 34.01 kg/m2 [facility] oximetry 2021-03-06 16:30:00 99 % Common S p[facility] respiratory rate 2021-03-06 16:30:00 18 /min Comm on [facility] - [facility] blood pressure 2021-03-06 16:30:00 135 mm[Hg] [facility] - systolic [facility] blood pressure 2021-03-06 16:30:00 90 mm[Hg] [facility] - diastolic [facility] height 2021-01-27 16:20:00 61 [in_i] Common [facility] weight 2021-01-27 16:20:00 180 [lb_av] [facility] temperature 2021-01-27 16:20:00 97.6 [degF] Common [facility] bmi 2021-01-27 16:20:00 34.01 kg/m2 [facility] oximetry 2021-01-27 16:20:00 98 % Common [facility] blood pressure 2021-01-27 16:20:00 132 mm[Hg] Common [facility] - systolic [facility] blood pressure 2021-01-27 16:20:00 68 mm[Hg] [facility] - diastolic [facility] height 2020-12-25 14:45:00 61 [in_i] Common [facility] p[facility] weight 2020-12-25 14:45:00 180 [lb_av] [facility] temperature 2020-12-25 14:45:00 97.6 [degF] Common [facility] bmi 2020-12-25 14:45:00 34.01 kg/m2 Common [facility] oximetry 2020-12-25 14:45:00 97 % Common S p[facility] blood pressure 2020-12-25 14:45:00 147 mm[Hg] [facility] - systolic [facility] blood pressure 2020-12-25 14:45:00 84 mm[Hg] [facility] - diastolic [facility] height 2020-12-02 15:40:00 61 [in_i] Common [facility] weight 2020-12-02 15:40:00 180 [lb_av] Common [facility] temperature 2020-12-02 15:40:00 97.8 [degF] Common [facility] bmi 2020-12-02 15:40:00 34.01 kg/m2 Common [facility] oximetry 2020-12-02 15:40:00 96 % Common S pirit [facility] blood pressure 2020-12-02 15:40:00 184 mm[Hg] [facility] - systolic [facility] blood pressure 2020-12-02 15:40:00 104 mm[Hg] [facility] - diastolic [facility] height 2020-10-16 13:40:00 61 [in_i] Common S p[facility] weight 2020-10-16 13:40:00 178 [lb_av] Common [facility] temperature 2020-10-16 13:40:00 97.4 [degF] Common S pirit - [facility] bmi 2020-10-16 13:40:00 33.63 kg/m2 Common S pirit - [facility] blood pressure 2020-10-16 13:40:00 128 mm[Hg] [facility] - systolic [facility] blood pressure 2020-10-16 13:40:00 76 mm[Hg] [facility] - diastolic [facility] height 2020-10-16 16:30:00 61 [in_i] Common S p[facility] weight 2020-10-16 16:30:00 180 [lb_av] Common [facility] temperature 2020-10-16 16:30:00 97.7 [degF] Common S pirit - [facility] bmi 2020-10-16 16:30:00 34.01 kg/m2 Common S pirit - [facility] oximetry 2020-10-16 16:30:00 97 % Common S pirit - [facility] blood pressure 2020-10-16 16:30:00 162 mm[Hg] [facility] - systolic [facility] blood pressure 2020-10-16 16:30:00 96 mm[Hg] [facility] - diastolic [facility] Procedures This patient has no known procedures. Plan of Care Planned Activity Planned Date Details Comments Source Future Scheduled 2020-11-[address] [facility] 00:00:00 (Season Ended) [code = Medic al Center INFLUENZA VACCINE (Season Ended)] Future Scheduled 2020-11-[address] [facility] 00:00:00 (Season Ended) [code = [facility] al Center INFLUENZA VACCINE (Season Ended)] Future Scheduled 2020-11-[address] [facility] Test 00:00:00 (Season Ended) [code = [facility] INFLUENZA VACCINE (Season Ended)] Future Scheduled [...] [facility]ukes Test 00:00:00 (1 of 1 - [facility] [id number] PCV13) [code = PNEUMOCOCCAL 65+ YRS (1 of 1 - [id number] PCV13)] Future Scheduled 2012-12-28 PNEUMOCOCCAL 65+ [facility] 00:00:00 (1 of 1 - [facility] [id number] PCV13) [code = PNEUMOCOCCAL 65+ YRS (1 of 1 - [id number] PCV13)] Future Scheduled 2012-12-28 PNEUMOCOCCAL 65+ [facility] Test 00:00:00 (1 of 1 - [facility] [id number] PCV13) [code = PNEUMOCOCCAL 65+ YRS (1 of 1 - [id number] PCV13)] Future Scheduled 1997-12-28 SHINGLES VACCINES (1 [...] [facility] Center breast (procedure) [code = 051294517] Future Scheduled [address] [facility] malignant ne[facility] colon (procedure) [code = 372316759] Future Scheduled [address] [facility] 00:[facility]:00 [facility] breast (procedure) [code = 091508568] Future Scheduled [address] [facility] 00:[facility]:00 [facility] colon (procedure) [code = 139124212] Future Scheduled [address] [facility]:00 [facility] breast (procedure) [code = 221639519] Future Scheduled [address] [facility] 00:[facility]:00 malignant ne[facility] colon (procedure) [code = 083236248] Encounters Start End Encounter Admission Attending Care Care Encounter Source Date/Time Date/Time Type Type Clinicians Facility Department ID 2021-07-31 Outpatient DARIO Powell [facility] [id number] Common 09:46:01 [facility] 2021-04-02 Outpatient Powell, STLMLC STLMLC [id number] Common 14:02:15 Dmitry 23265 [facility] 2021-04-02 Outpatient Powell, STLMLC STLMLC [id number] Common 14:01:19 Dmitry 22721 [facility] 2021-04-02 Outpatient Powell, STLMLC STLMLC [id number] Common 13:38:40 Dmitry 22479 [facility] 2021-04-02 Outpatient Powell, STLMLC STLMLC [id number] Common 13:36:48 Dmitry 28894 [facility] 2021-04-02 Outpatient Powell, STLMLC STLMLC [id number] Common 13:28:35 Dmitry 55698 [facility] 2021-04-02 Outpatient Powell, STLMLC STLC [id number] Common 13:28:20 Dmitry 380[address] [facility] 2021-04-02 Outpatient Powell, STLMLC STLC [id number] Common 13:04:41 Dmitry 21437 [facility] 2021-04-02 Outpatient Powell, STLMLC STLMLC [id number] Common 12:55:20 Dmitry 406[address] [facility] 2021-04-02 Outpatient Powell, STLMLC STLC [id number] Common 12:37:32 Dmitry 83826 [facility] 2021-04-02 Outpatient Powell, STLMLC STLMLC [id number] Common 11:40:56 Dmitry 75373 [facility] 2021-04-02 Outpatient Powell, STLMLC STLMLC [id number] Common 11:32:24 Dmitry 66311 [facility] 2021-04-02 Outpatient Powell, STLMLC STLMLC [id number] Common 10:59:26 Dmitry 99031 [facility] 2021-04-02 Outpatient Powell, STLMLC STLC [id number] Common 10:59:05 Dmitry 82269 [facility] 2020-12-15 Inpatient [facility] [id number] [facility] 2022-03-26 2022-03-26 Outpatient Ogweno_B [facility] [id number] [facility] 00:00:00 00:00:00 [id number] [facility] 2022-03-26 2022-03-26 Outpatient Ogweno_B [facility] [id number] [facility] 00:00:00 00:00:00 [id number] [facility] 2022-03-24 2022-03-24 (TEL) STLMLC STLMLC [id number] Co mmon 00:00:00 00:00:00 [facility] 2022-03-11 2022-03-11 OFFICE STLMLC STLMLC [id number] Co mmon 00:00:00 00:00:00 VISIT [facility] PT - [facility] LEVEL 4 [facility] 2022-03-06 2022-03-06 (TEL) STLMLC STLMLC [id number] Co mmon 00:00:00 00:00:00 [facility] 2022-02-23 2022-02-23 [id number] 00:00:00 00:00:00 [id number] [facility] 2022-02-19 2022-02-19 OFFICE STLMLC STLMLC [id number] Co mmon 00:00:00 00:00:00 VISIT EST Spir it PT LEVEL 3 - [facility] 2022-01-14 2022-01-14 OFFICE STLMLC STLMLC [id number] Co mmon 00:00:00 00:00:00 VISIT EST Spir it PT LEVEL 3 - CHI [facility] 2021-12-23 2021-12-23 (TEL) STLMLC STLMLC [id number] Co mmon 00:00:00 00:00:00 [facility] 2021-12-19 2021-12-19 OFFICE STLMLC STLMLC [id number] Co mmon 00:00:00 00:00:00 VISIT Spirit ESTAB PT - CHI LEVEL 1 [facility] 2021-10-10 2021-10-10 Phone Only STLMLC STLMLC [id number] Common 00:00:00 00:00:00 Visit for Spir it Est [facility] 2021-10-01 2021-10-01 (TEL) STLMLC STLMLC [id number] Co mmon 00:00:00 00:00:00 [facility] 2021-09-23 2021-09-23 (TEL) STLMLC STLMLC [id number] Co mmon 00:00:00 00:00:00 [facility] 2021-09-22 2021-09-22 (TEL) STLMLC STLMLC [id number] Co mmon 00:00:00 00:00:00 [facility] 2021-09-22 2021-09-22 OFFICE STLMLC STLMLC [id number] Co mmon 00:00:00 00:00:00 VISIT [facility] LEVEL 1 [facility] 2021-09-19 2021-09-19 Outpatient DMG DMG [id number] Devoted 03:36:00 03:36:00 [facility] 2021-08-15 2021-08-15 (TEL) STLMLC STLMLC [id number] Co mmon 00:00:00 00:00:00 [facility] 2021-08-12 2021-08-12 (TEL) STLMLC STLMLC [id number] Co mmon 00:00:00 00:00:00 [facility] 2021-08-01 2021-08-01 (TEL) STLMLC STLMLC [id number] Co mmon 00:00:00 00:00:00 [facility] 2021-08-01 2021-08-01 (EST. STLMLC STLMLC [id number] Co mmon 00:00:00 00:00:00 VIDEO) EST Spi rit VIRTUAL - [facility] VIDEO [facility] 2021-07-31 2021-07-31 (TEL) STLMLC STLMLC [id number] Co mmon 00:00:00 00:00:00 [facility] 2021-07-31 2021-07-31 OFFICE STLMLC STLMLC [id number] Co mmon 00:00:00 00:00:00 VISIT EST Spir it PT LEVEL 3 - [facility] 2021-07-30 2021-07-30 (TEL) STLMLC STLMLC [id number] Co mmon 00:00:00 00:00:00 [facility] 2021-07-25 2021-07-25 OFFICE STLMLC STLMLC [id number] Co mmon 00:00:00 00:00:00 VISIT [facility] PT - CHI LEVEL 4 [facility] 2021-07-22 2021-07-22 (TEL) STLMLC STLMLC [id number] Co mmon 00:00:00 00:00:00 [facility] 2021-07-14 2021-07-14 (TEL) STLMLC STLMLC [id number] Co mmon 00:00:00 00:00:00 [facility] 2021-07-12 2021-07-12 (TEL) STLMLC STLMLC [id number] Co mmon 00:00:00 00:00:00 [facility] 2021-07-05 2021-07-05 Outpatient DMG DMG [id number] Devoted 09:00:00 09:00:00 [facility] 2021-05-20 2021-05-20 Outpatient DMG DMG [id number] [facility] 09:01:00 09:01:00 [facility] 2021-05-14 2021-05-14 (PROC) STLMLC STLMLC [id number] Co mmon 00:00:00 00:00:[address] [facility] 2021-05-07 2021-05-07 (TEL) STLMLC STLMLC [id number] Co mmon 00:00:00 00:00:00 [facility] 2021-05-07 2021-05-07 OFFICE STLMLC STLMLC [id number] Co mmon 00:00:00 00:00:00 VISIT [facility] PT - CHI LEVEL 4 [facility] 2021-05-06 2021-05-06 (TEL) STLMLC STLMLC [id number] Co mmon 00:00:00 00:00:00 [facility] 2021-04-21 2021-04-21 (TEL) STLMLC STLMLC [id number] Co mmon 00:00:00 00:00:00 [facility] 2021-04-21 2021-04-21 OFFICE STLMLC STLMLC [id number] Co mmon 00:00:00 00:00:00 VISIT EST Spir it PT LEVEL 3 [facility] 2021-04-18 2021-04-18 (TEL) STLMLC STLMLC [id number] Co mmon 00:00:00 00:00:00 [facility] 2021-04-16 2021-04-16 (TEL) STLMLC STLMLC [id number] Co mmon 00:00:00 00:00:00 [facility] 2021-04-14 2021-04-14 (RETAIL CUSTODIAL ASSOCIATE) New STLMLC STLMLC [id number] C ommon 00:00:00 00:00:00 Patient [facility] 2021-04-10 2021-04-10 (TEL) STLMLC STLMLC [id number] Co mmon 00:00:00 00:00:00 [facility] 2021-04-03 2021-04-03 (TEL) STLMLC STLMLC [id number] Co mmon 00:00:00 00:00:00 [facility] 2021-03-10 2021-03-10 (TEL) STLMLC STLMLC [id number] Co mmon 00:00:00 00:00:00 [facility] 2021-03-06 2021-03-06 OFFICE STLMLC STLMLC [id number] Co mmon 00:00:00 00:00:00 VISIT [facility] PT [facility] LEVEL 2 [facility] 2021-03-05 2021-03-05 (TEL) STLMLC STLMLC [id number] Co mmon 00:00:00 00:00:00 [facility] 2021-01-27 2021-01-27 OFFICE STLMLC STLMLC [id number] Co mmon 00:00:00 00:00:00 VISIT [facility] ESTAB PT - CHI LEVEL 4 [facility] 2020-12-25 2020-12-25 OFFICE STLMLC STLMLC [id number] Co mmon 00:00:00 00:00:00 VISIT EST Spir it PT LEVEL 3 - [facility] 2020-12-20 2020-12-20 (TEL) STLMLC STLMLC [id number] Co mmon 00:00:00 00:00:00 [facility] 2020-12-02 2020-12-02 (TEL) STLMLC STLMLC [id number] Co mmon 00:00:00 00:00:00 [facility] 2020-12-02 2020-12-02 (TEL) STLMLC STLMLC [id number] Co mmon 00:00:00 00:00:00 [facility] 2020-12-02 2020-12-02 OFFICE STLMLC STLMLC [id number] Co mmon 00:00:00 00:00:00 VISIT EST Spir it PT LEVEL 3 - [facility] 2020-10-16 2020-10-16 OFFICE STLMLC STLMLC [id number] Co mmon 00:00:00 00:00:00 VISIT [facility] ESTAB PT - CHI LEVEL 4 [facility] 2020-10-16 2020-10-16 OFFICE STLMLC STLMLC [id number] Co mmon 00:00:00 00:00:00 VISIT [facility] ESTAB PT - CHI LEVEL 4 [facility] 2020-10-10 2020-10-10 (TEL) STLMLC STLMLC [id number] Co mmon 00:00:00 00:00:00 [facility] 2020-09-25 2020-09-25 Outpatient STLMLC STLMLC [id number] Common 00:00:00 00:00:00 [facility] 2020-09-20 2020-09-20 Outpatient STLMLC STLMLC [id number] Common 00:00:00 00:00:00 [facility] 2020-09-04 2020-09-04 Outpatient STLMLC STLMLC [id number] Common 00:00:00 00:00:00 [facility] 2020-09-04 2020-09-04 Outpatient STLMLC STLMLC [id number] Common 00:00:00 00:00:00 [facility] 2020-09-04 2020-09-04 Outpatient STLMLC STLMLC [id number] Common 00:00:00 00:00:00 [facility] 2020-09-03 2020-09-03 Outpatient STLMLC STLMLC [id number] Common 00:00:00 00:00:00 [facility] 2020-08-27 2020-08-27 Outpatient STLMLC STLMLC [id number] Common 00:00:00 00:00:00 [facility] 2020-08-15 2020-08-15 Outpatient STLMLC STLMLC [id number] Common 00:00:00 00:00:00 [facility] 2020-08-14 2020-08-14 Outpatient STLMLC STLMLC [id number] Common 00:00:00 00:00:00 [facility] 2020-08-01 2020-08-01 Outpatient STLMLC STLMLC [id number] Common 00:00:00 00:00:00 [facility] 2020-07-24 2020-07-24 Outpatient STLMLC STLMLC [id number] Common 00:00:00 00:00:00 [facility] 2020-07-16 2020-07-16 Outpatient STLMLC STLMLC [id number] Common 00:00:00 00:00:00 [facility] 2020-07-16 2020-07-16 Outpatient STLMLC STLMLC [id number] Common 00:00:00 00:00:00 [facility] 2020-07-10 2020-07-10 Outpatient STLMLC STLMLC [id number] Common 00:00:00 00:00:00 [facility] 2020-07-05 2020-07-05 Outpatient STLMLC STLMLC [id number] Common 00:00:00 00:00:00 [facility] 2020-06-27 2020-06-27 Outpatient STLMLC STLMLC [id number] Common 00:00:00 00:00:00 [facility] 2020-06-24 2020-06-24 Outpatient STLMLC STLMLC [id number] Common 00:00:00 00:00:00 [facility] 2020-06-19 2020-06-19 Outpatient STLMLC STLMLC [id number] Common 00:00:00 00:00:00 [facility] 2020-05-20 2020-05-20 Outpatient STLMLC STLMLC [id number] Common 00:00:00 00:00:00 [facility] 2020-05-14 2020-05-14 Outpatient STLMLC STLMLC [id number] Common 00:00:00 00:00:00 [facility] 2020-04-19 2020-04-19 Outpatient STLMLC STLMLC [id number] Common 00:00:00 00:00:00 [facility] 2020-04-16 2020-04-16 Outpatient STLMLC STLMLC [id number] Common 00:00:00 00:00:00 [facility] 2019-09-29 2019-09-29 [facility] [id number] Common 13:46:00 13:46:[address] [facility] [address] [facility] 2019-09-28 2019-09-28 [facility] [id number] Common 11:00:00 11:00:00 [place] [address] [facility] 2019-09-28 2019-09-28 [facility] [id number] Common 10:30:00 10:30:00 [place] [address] [facility] 2019-07-14 2019-07-14 [facility] [id number] Common 10:31:00 10:31:00 [place] [address] [facility] 2018-12-15 2018-12-15 [facility] [id number] Common 16:00:00 16:00:00 [place] [address] [facility] 2018-09-14 2018-09-14 [facility] [id number] Common 15:45:00 15:45:00 [place] [address] [facility] 2018-08-30 2018-08-30 [facility] [id number] Common 08:00:00 08:00:00 [place] [address] [facility] 2018-06-10 2018-06-10 [facility] [id number] Common 16:46:00 16:46:00 [place] [address] [facility] 2018-06-09 2018-06-09 [facility] [id number] Common 09:18:00 09:18:00 [address] [facility] [address] [facility] 2018-06-07 2018-06-07 [facility] [id number] Common 15:00:00 15:00:00 [place] [address] [facility] 2018-04-25 2018-04-25 [facility] [id number] Common 09:15:00 09:15:00 [place] [address] [facility] 2018-03-09 2018-03-09 [facility] [id number] Common 16:00:00 16:00:00 [place] [address] [facility] 2018-03-03 2018-03-03 [facility] [id number] Common 08:52:00 08:52:00 [place] [address] [facility] 2017-11-30 2017-11-30 [facility] [id number] Common 15:00:00 15:00:00 [place] [address] [facility] 2017-09-30 2017-09-30 [facility] [id number] Common 15:00:00 15:00:00 t Specialty/U Sp nahed Specialty rology - [facility] /Urology Clinic [facility] 2017-09-29 2017-09-29 Outpatient Jaswinder Parham [id number] Common 10:13:00 10:13:[address] [facility] 2017-09-28 2017-09-28 Outpatient Jaswinder Parham [id number] Common 14:00:00 14:00:[address] [facility] Results Test Description Test Time Test Comments Results Result Comments Source PHOSPHORUS 2018-11-11 05:54:00 Test Item Value Reference Range Interpretation Comme nts PHOSPHORUS (BEAKER) (test code = 604) 3.6 mg/dL 2.3-4.7 [id number] 05:54:00 Test Item Value Reference Range Interpretation Comments MAGNESIUM (BEAKER) (test code = 1.8 mg/dL 1.6-2.6 627) BASIC METABOLIC [id number] 05:54:00 Test Item Value Reference Range Interpretation [...] APPLICABLE FOR DIALYSIS PATIEN TS. HEPATIC FUNCTION [id number] 05:54:00 Test Item Value Reference Range Interpretation [...] 6-55 347) CBC W/PLT COUNT & AUTO [id number] 05:43:00 Test Item Value Reference Range Interpretation [...] PERCENT (BEAKER) (test code = 2801) PROTHROMBIN [id number] 05:42:00 Test Item Value Reference Range Interpretation [...] 2.5-3.5 for patients wiht mechanical heart valves.HEMOGLOBIN [id number] 07:50:00 Test Item Value Reference Range Interpretation Comments HEMOGLOBIN A1C (BEAKER) (test code = 7.1 % 4.3-6.1 H 368) [id number] 04:53:00 Test Item Value Reference Range Interpretation Comments PHOSPHORUS (BEAKER) (test code = 3.2 mg/dL 2.3-4.7 604) [id number] 04:53:00 Test Item Value Reference Range Interpretation Comments MAGNESIUM (BEAKER) (test code = 1.8 mg/dL 1.6-2.6 627) BASIC METABOLIC [id number] 04:53:00 Test Item Value Reference Range Interpretation [...] APPLICABLE FOR DIALYSIS PATIEN TS. HEPATIC FUNCTION [id number] 04:53:00 Test Item Value Reference Range Interpretation [...] code = 12 U/L 6-55 347) PROTHROMBIN [id number] 04:19:00 Test Item Value Reference Range Interpretation [...] mechanical heart valves.CBC W/PLT COUNT & AUTO [id number] 04:14:00 Test Item Value Reference Range Interpretation [...] 0-1 PERCENT (BEAKER) (test code = 2801) [id number] 14:44:00 Test Item Value Reference Range Interpretation Comments LIPASE (BEAKER) (test code = 749) 972 U/L 8-78 H [id number] 13:06:00 Test Item Value Reference Range Interpretation Comments PHOSPHORUS (BEAKER) (test code = 3.3 mg/dL 2.3-4.7 604) [id number] 13:06:00 Test Item Value Reference Range Interpretation Comments MAGNESIUM (BEAKER) (test code = 2.0 mg/dL 1.6-2.6 627) BASIC METABOLIC [id number] 13:06:00 Test Item Value Reference Range Interpretation [...] GFR I S NOT APPLICABLE FOR DIALYSIS PATISAMIR TS. LIPID [id number] 13:06:00 Test Item Value Reference Range Interpretation [...] 130-159 High 160-189 Very High >=190HEPATIC FUNCTION [id number] 13:06:00 Test Item Value Reference Range Interpretation [...] 6-55 347) CBC W/PLT COUNT & AUTO [id number] 12:46:00 Test Item Value Reference Range Interpretation [...] PERCENT (BEAKER) (test code = 2801) PROTHROMBIN [id number] 12:39:00 Test Item Value Reference Range Interpretation [...]
[2022-05-09] MEDS ORDERED: NA CHLORIDE 0.9% 500 ML ONE (11:04)
[2022-05-09 11:17] LABS: Urine Blood Trace-intact (Negative); Urine Glucose 3+ (Negative); Urine Protein Trace (Negative); Urine Specific Gravity 1.015 (1.005-1.030); Urine pH 6.5 (5.0-7.0)
[2022-05-09 11:31] LABS: Absolute Lymphocytes (CBC) 1.5 K/uL (0.7-4.9); Hematocrit 36.6 % (36.0-45.0); Lymphocytes % 21.2 % (15.3-44.8); MCV 76.1 fL (80-100); MPV 8.2 fL (7.6-11.3); RBC Red Blood Cell Count 4.81 M/uL (3.86-4.86)
[2022-05-09 11:38] LABS: Urine Bacteria Loaded /HPF (<20); Urine RBC <5 /HPF (None Seen); Urine WBC Clump Few /HPF (None Seen)
[2022-05-09 11:43] LABS: Albumin 3.2 g/dL (3.4-5.0); Bilirubin Total 0.7 mg/dL (0.2-1.0); Protein, Total 7.3 g/dL (6.4-8.2)
--- NOTE | 2022-05-09 12:09 | EDPHYS ---
Physician Documentation [facility] Name: Isadora Bettencourt Age: 76 yrs Sex: Female : 1945 Arrival Date: 05/09/2022 Time: 10:42 Bed 19 Private MD: ED Physician Lincoln Powell HPI: 05/09 11:01 This 76 yrs old Female presents to ER via EMS with complaints of Pain With Urination. sp3 11:01 76 old female with a history of multiple UTIs, prior kidney stones, pancreatitis, sp3 anxiety, hypertension presents to the ED with chief complaint dysuria and urinary frequency stating that she feels like she has another urinary tract infection. She denies back pain or flank pain, fever, upper abdominal pain, chest pain, rash, syncope, near syncope, URI symptoms, or any other symptoms on ROS at this time.. Historical: - Allergies: 10:43 No Known Allergies; ll1 - PMHx: 10:43 Kidney stones; Pancreatitis; Hypertension; Anxiety; ll1 - PSHx: 10:43 None; ll1 - Immunization history:: Client reports receiving the 2nd dose of the Covid vaccine. - Social history:: Smoking status: Patient/guardian denies using tobacco, the patient reports quitting approximately 20 years ago. ROS: 11:02 Constitutional: Negative for fever, chills, and weight loss, Eyes: Negative for injury, sp3 pain, redness, and discharge, ENT: Negative for injury, pain, and discharge, Neck: Negative for injury, pain, and swelling, Cardiovascular: Negative for chest pain, palpitations, and edema, Respiratory: Negative for shortness of breath, cough, wheezing, and pleuritic chest pain, Abdomen/GI: Negative for abdominal pain, nausea, vomiting, diarrhea, and constipation, Back: Negative for injury and pain, MS/Extremity: Negative for injury and deformity, Skin: Negative for injury, rash, and discoloration, Neuro: Negative for headache, weakness, numbness, tingling, and seizure, Psych: Negative for depression, anxiety, suicide ideation, homicidal ideation, and hallucinations, Allergy/Immunology: Negative for hives, rash, and allergies, Endocrine: Negative for neck swelling, polydipsia, polyuria, polyphagia, and marked weight changes. 11:02 All other systems are negative. Exam: 11:02 Constitutional: This is a well developed, well nourished patient who is awake, alert, sp3 and in no acute distress. Head/Face: Normocephalic, atraumatic. Neck: Trachea midline, no thyromegaly or masses palpated, and no cervical lymphadenopathy. Supple, full range of motion without nuchal rigidity, or vertebral point tenderness. No Meningismus. Chest/axilla: Normal chest wall appearance and motion. Nontender with no deformity. No lesions are appreciated. Cardiovascular: Regular rate and rhythm with a normal S1 and S2. No gallops, murmurs, or rubs. Normal PMI, no JVD. No pulse deficits. Respiratory: Lungs have equal breath sounds bilaterally, clear to auscultation and percussion. No rales, rhonchi or wheezes noted. No increased work of breathing, no retractions or nasal flaring. Abdomen/GI: Soft, non-tender, with normal bowel sounds. No distension or tympany. No guarding or rebound. No evidence of tenderness throughout. Skin: Warm, dry with normal turgor. Normal color with no rashes, no lesions, and no evidence of cellulitis. MS/ Extremity: Pulses equal, no cyanosis. Neurovascular intact. Full, normal range of motion. Neuro: Awake and alert, GCS 15, oriented to person, place, time, and situation. Cranial nerves II-XII grossly intact. Motor strength 5/5 in all extremities. Sensory grossly intact. Cerebellar exam normal. Normal gait. Psych: Awake, alert, with orientation to person, place and time. Behavior, mood, and affect are within normal limits. Vital Signs: 10:42 BP 151 / 103; Pulse 73; Resp 18; Temp 98.8; Pulse Ox 94% on R/A; Weight 81.65 kg; ll1 Height 5 ft. 1 in. (154.94 cm); 13:20 BP 173 / 79; Pulse 81; Resp 17; Pulse Ox 95% on R/A; ll1 10:42 Body Mass Index 34.01 (81.65 kg, 154.94 cm) ll1 MDM: 10:43 Patient medically screened. sp3 11:03 Data reviewed: vital signs, nurses notes, EMS record, lab test result(s). ED course: sp3 76-year-old female with dysuria and urinary symptoms. Differential diagnosis includes UTI, pyelonephritis, other intra-abdominal pathology, among others. I am not highly suspicious for kidney stone, sepsis, shock, aortic pathology including dissection and aneurysm, mesenteric ischemia, or any other critical findings at this time. We will treat for any infection that is found and likely discharge patient home. Disposition is pending patient course and work-up results.. 12:07 ED course: Urinalysis demonstrates large urinary tract infection. Rem[facility]der [facility] laboratory values demonstrate no significant abnormality. We will administer cefepime 1 g IV given multiple UTIs in the past and likely chance of antibiotic resistance. We will discharge patient home on Levaquin p.o. and PCP follow-up. There are no admission criteria at this time.. 05/09 10:44 Order name: CBC with Diff 3 05/09 10:44 Order name: CMP 3 05/09 10:44 Order name: Lipase 3 05/09 10:44 Order name: Urine Microscopic Only 3 05/09 10:44 Order name: IV Saline Lock; Complete Time: 10:51 3 05/09 10:44 Order name: Labs collected and sent; Complete Time: 10:51 3 05/09 10:44 Order name: Urine Dipstick-Ancillary (obtain specimen); Complete Time: 11:21 3 05/09 11:18 Order name: Urine Dipstick-Ancillary; Complete Time: 12:05 EDMS 05/09 11:25 Order name: Straight Cath; Complete Time: 11:25 [facility] 05/09 11:31 Order name: CBC with Automated Diff; Complete Time: 12:05 EDMS 05/09 11:44 Order name: Comprehensive Metabolic Panel; Complete Time: 12:05 EDMS 05/09 11:44 Order name: Lipase; Complete Time: 12:05 EDMS 05/09 11:53 Order name: Urine Microscopic Only; Complete Time: 12:05 EDMS Administered Medications: 11:21 Drug: NS 0.9% 500 ml Route: IV; Rate: bolus; Site: right forearm; ll1 12:35 Follow up: Response: No adverse reaction; IV Status: Completed infusion; IV Intake: ll1 500ml 12:35 Drug: Cefepime 1 grams Route: IVPB; Rate: 200 ml/hr; Infused Over: 30 mins; Site: right ll1 forearm; 13:21 Follow up: Response: No adverse reaction; IV Status: Completed infusion; IV Intake: ll1 100ml 12:35 Drug: HYDROcodone-acetaminophen 5 mg-325 mg 2 tabs {Note: rass 0.} Route: PO; ll1 13:21 Follow up: Response: No adverse reaction; Pain is decreased; RASS: Alert and Calm (0) ll1 Disposition Summary: 05/09/22 12:08 Discharge Ordered Location: Home sp3 Condition: Stable sp3 Diagnosis - UTI/ Urinary tract infection, site not specified sp3 Followup: sp3 - With: Private Physician - When: Upon discharge from the Emergency Department - Reason: Continuance of care Discharge Instructions: - Discharge Summary Sheet sp3 - Urinary Tract Infection, Adult sp3 Forms: - Medication Reconciliation Form sp3 - Thank You Letter sp3 - Antibiotic Education sp3 - Prescription Opioid Use sp3 Prescriptions: - levofloxacin 500 mg Oral Tablet - take 1 tablet by ORAL route once daily for 7 days; 7 tablet; Refills: 0, sp3 Product Selection Permitted Signatures: Dispatcher [employer] Jag Frank RN RN ll1 Lincoln Powell MD MD sp3
--- NOTE | 2022-05-09 12:09 | ER ---
Nurse's Notes [facility] Jaswinder Name: Isadora Bettencourt Age: 76 yrs Sex: Female : 1945 Arrival Date: 05/09/2022 Time: 10:42 Bed 19 Private MD: Diagnosis: UTI/ Urinary tract infection, site not specified Presentation: 05/09 10:42 Chief complaint: Patient states: Painful urination and unable to control urination for ll1 a few days. Chief complaint: EMS states: VSS. Fingerstick 333. Coronavirus screen: Vaccine status: Patient reports receiving the 2nd dose of the covid vaccine. Client denies travel out of the [place] in the last 14 days. At this time, the client does not indicate any symptoms associated with coronavirus-19. Ebola Screen: Patient denies travel to an Ebola-affected area in the 21 days before illness onset. Initial Sepsis Screen: Does the patient meet any 2 criteria? No. Patient's initial sepsis screen is negative. Does the patient have a suspected source of infection? Yes: Dysuria/Frequency/Urgency/UTI. Risk Assessment: Do you want to hurt yourself or someone else? Patient reports no desire to harm self or others. Onset of symptoms was May 06, 2022. 10:42 Method Of Arrival: EMS ll1 10:42 Acuity: FRANDY 3 ll1 Triage Assessment: 10:44 General: Appears in no apparent distress. Behavior is calm, cooperative, appropriate ll1 for age. Pain: Complains of pain in back Quality of pain is described as aching. Neuro: No deficits noted. Cardiovascular: No deficits noted. : Reports burning with urination, incontinence, urgency. Musculoskeletal: Reports pain in back. Historical: - Allergies: 10:43 No Known Allergies; ll1 - PMHx: 10:43 Kidney stones; Pancreatitis; Hypertension; Anxiety; ll1 - PSHx: 10:43 None; ll1 - Immunization history:: Client reports receiving the 2nd dose of the Covid vaccine. - Social history:: Smoking status: Patient/guardian denies using tobacco, the patient reports quitting approximately 20 years ago. Screenin:21 [facility] ED Fall Risk Assessment (Adult) Score/Fall Risk Level 0 - 2 = Low Risk ll1 Oriented to surroundings, Maintained a safe environment, Educated pt \T\ family on fall prevention, incl call for assistance when getting out of bed, Hourly rounding (assess needs \T\ fall precautionary measures) done. Abuse screen: Denies threats or abuse. Nutritional screening: No deficits noted. Tuberculosis screening: No symptoms or risk factors identified. Assessment: 11:21 Reassessment: No changes from previously documented assessment. Patient and/or family ll1 updated on plan of care and expected duration. Pain level reassessed. Patient is alert, oriented x 3, equal unlabored respirations, skin warm/dry/pink. 11:48 Reassessment: No changes from previously documented assessment. Patient and/or family ll1 updated on plan of care and expected duration. Pain level reassessed. Patient is alert, oriented x 3, equal unlabored respirations, skin warm/dry/pink. 12:35 Reassessment: No changes from previously documented assessment. Patient and/or family ll1 updated on plan of care and expected duration. Pain level reassessed. Patient is alert, oriented x 3, equal unlabored respirations, skin warm/dry/pink. 13:20 Reassessment: No changes from previously documented assessment. Patient and/or family ll1 updated on plan of care and expected duration. Pain level reassessed. Patient is alert, oriented x 3, equal unlabored respirations, skin warm/dry/pink. Vital Signs: 10:42 BP 151 / 103; Pulse 73; Resp 18; Temp 98.8; Pulse Ox 94% on R/A; Weight 81.65 kg; ll1 Height 5 ft. 1 in. (154.94 cm); 13:20 BP 173 / 79; Pulse 81; Resp 17; Pulse Ox 95% on R/A; ll1 10:42 Body Mass Index 34.01 (81.65 kg, 154.94 cm) ll1 ED Course: 10:42 Patient arrived in ED. ll1 10:43 Lincoln Powell MD is Attending Physician. sp3 10:43 Triage completed. ll1 10:44 Arm band placed on Patient placed in an exam room, on a stretcher. ll1 10:51 Jag Forte RN is Primary Nurse. ll1 11:05 Speci-cath kit inserted, using sterile technique, 14 Fr., specimen obtained. Patient ll1 tolerated well. 11:18 Initial lab(s) drawn, by me, sent to lab. Inserted saline lock: 22 gauge in right jl7 forearm, using aseptic technique. Blood collected. 11:21 Urine Microscopic Only Sent. ll1 13:20 No provider procedures requiring assistance completed. IV discontinued, intact, ll1 bleeding controlled, No redness/swelling at site. Pressure dressing applied. 13:22 Patient has correct armband on for positive identification. Bed in low position. Call ll1 light in reach. Side rails up X2. Cardiac monitoring not applicable on this patient. Administered Medications: 11:21 Drug: NS 0.9% 500 ml Route: IV; Rate: bolus; Site: right forearm; ll1 12:35 Follow up: Response: No adverse reaction; IV Status: Completed infusion; IV Intake: ll1 500ml 12:35 Drug: Cefepime 1 grams Route: IVPB; Rate: 200 ml/hr; Infused Over: 30 mins; Site: right ll1 forearm; 13:21 Follow up: Response: No adverse reaction; IV Status: Completed infusion; IV Intake: ll1 100ml 12:35 Drug: HYDROcodone-acetaminophen 5 mg-325 mg 2 tabs {Note: rass 0.} Route: PO; ll1 13:21 Follow up: Response: No adverse reaction; Pain is decreased; RASS: Alert and Calm (0) ll1 Medication: 13:22 VIS not applicable for this client. ll1 Intake: 12:35 IV: 500ml; Total: 500ml. ll1 13:21 IV: 100ml; Total: 600ml. ll1 Outcome: 12:08 Discharge ordered by . sp3 13:21 Discharged to home via wheelchair. ll1 13:21 Condition: stable 13:21 Discharge instructions given to patient, Instructed on discharge instructions, follow up and referral plans. medication usage, Demonstrated understanding of instructions, follow-up care, medications, Prescriptions given X 1. 13:22 Patient left the ED. ll1 Signatures: Darrin Rodriguez RN RN jl7 Jag Forte RN RN ll1 Lincoln Powell MD MD sp3
[2022-05-09] MEDS ORDERED: NA CHLORIDE 0.9% 100 ML ONE (12:18)
[2022-05-09] MEDS ORDERED: HYDROCODONE/APAP 5/325 MG TAB ONE (12:18)
[2022-05-09] MEDS ORDERED: CEFEPIME 1 GM/VIAL ONE (12:19)
[2022-05-09 13:44] VITALS: TEMP 98.8
[2022-05-09 13:45] VITALS: BP 173/79; O2SAT 95
== END 2022-05-09 13:22 | disposition home or self-care (01) ==
LOC: ER 10:38
DX: N39.0 Urinary tract infection, site not specified (principal); I10 Essential (primary) hypertension; Z87.442 Personal history of urinary calculi
CPT/HCPCS: 96365; 96361; 87088; 85025; 87086; 36415; 87077; 87186; 83690; 80053; 99284; J7040; J0692; 81003; 81015

== ENCOUNTER 2022-05-14 01:38 | Emergency (ER) | payer MEDICARE ==
--- OUTSIDE RECORDS SUMMARY | 2022-05-14 01:51 | XMS REPORT | Continuity of Care Document ---
:1945 Author Organization [facility] t Address [address] [place] [address] Care Team Providers Name Role Phone Dmitry Powell DO Primary Care Physician [phone] Dmitry Powell Attending Clinician Unavailable Ogdestiny_B Attending Clinician Unavailable GAY QIU Attending Clinician Unavailable Campos Admitting Clinician Unavailable GAY QIU Admitting Clinician Unavailable Payers Payer Name Policy Type Policy Effective Date Expiration Date Sour ce Number MEDICARE A B [id number] 2012 00:00:00 [employer] [id number] (MEDICARE 00:00:00 REPLACEMENT HMO) [employer] [id number] Common Spi rit - [facility] [employer] C1 [id number] Common Spi rit - [facility] C1 [id number] Common Spi rit - [facility] [employer] C1 [id number] Common Spi rit - [facility] [employer] [id number] Common Spi rit - [facility] [employer] C1 [id number] Common Spi rit - [facility] [employer] [id number] Common Spi rit - [facility] [employer] C1 [id number] Common Spi rit - [facility] [employer] C1 [id number] Common Spi rit [facility] Problems Condition Condition Condition Status [...] stricture 11-09 Luke s 00:00: Medical 00 [place] Mixed Depression Problem Commo n anxiety with Spirit and anxiety - CHI depressive [facility] Hiatal Hiatal Problem Common hernia hernia [facility] Benign Benign Problem Common essential essential Spir it hypertensi hypertensi - CHI on on [facility] Mixed Hyperlipid Problem Commo n hyperlipid emia, Spirit emia mixed [facility] Ulcer of Ulcer of Problem Commo n esophagus esophagus Spir it without - CHI bleeding [facility] [id number] Cystocele Problem Com mon and Spirit rectocele - CHI with [facility] uterovagin Medica l al Center prolapse [id number] Urinary Problem Commo n incontinen Spirit ce, - CHI unspecifie [facility] Kidney Left Problem Common stone nephrolith [facility] iasis [facility] Vitamin D Vitamin D Problem Com mon deficiency deficiency Sp nahed [facility] [id number] Chronic Problem Common gastritis Spirit without - [facility] type [id number] Insomnia, Problem Com mon unspecifie Spirit d type [facility] [id number] Chronic Problem Commo n GERD Spirit [facility] [id number] Fatigue, Problem Commo n unspecifie Spirit d type CH[facility] [id number] Peripheral Problem Com mon polyneurop Spirit athy [facility] [id number] Nocturnal Problem Commo n enuresis [facility] [id number] Gross Problem Common hematuria Spirit [facility] [id number] Stress Problem Common incontinen Spirit ce due to - CHI pelvic 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 [facility] [id number] 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 - CHI with [facility] long-term current use of insulin [id number] Status Problem Common post Spirit placement - [facility] of ureteral [facility] stent Medical [place] [id number] Type 2 [place] [address] diabetes Spirit mellitus - CHI with other diabetic [facility] kidney Medical complicati Center on [id number] Incontinen Problem Com mon ce of Spirit feces, - CHI unspecifie [facility] incontinen Medica l ce type Center [id number] Cystitis Problem Commo n Spirit - [facility] [id number] Bladder Problem Commo n spasms Spirit [facility] [id number] Lower Problem Common urinary Spirit tract - CHI symptoms ([facility] [id number] Incomplete Problem Co mmon emptying Spirit of bladder - [facility] [id number] [place], [place] [address] joint, Spirit knee, - CHI right [facility] [id number] Pain, Problem Commo n [id number] joint, Spirit ankle, - CHI right [facility] [id number] Detrusor Problem Comm on instabilit Spirit y - CHI [facility] [id number] Vulvovagin Problem Com mon itis Spirit - CH[facility] [id number] Pelvic Problem Common pain Spirit - [facility] [id number] Urge Problem Common incontinen Spirit ce - [facility] [id number] Chronic Problem Commo n recurrent Spirit pancreatit - CHI is [facility] [id number] Primary Problem 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 itis of - CHI right knee [facility] Chronic Other Problem Common pancreatit chronic Spiri t is pancreatit - CHI is [facility] Disorder Bladder Problem Common of urinary disorder, Spi rit bladder unspecifie - [facility] d [facility] 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 Spirit n of the dysfunctio - CH I urinary n of St bladder bladder, [facility] unspecifie Medica l d [place] [id number] Acute Problem Common vaginitis [facility] Allergies, Adverse Reactions, Alerts Allergy Allergy Status Severity Reaction(s) Onset Inactive Treating Comm ents Source Name Type Date Date Clinician NO KNOWN Allergy Active [facility] Social History Social Habit Start Date Stop Date Quantity Comments Source History of Tobacco Common Spirit - Use [facility] History [facility]OO[facility] Alcohol Std Drinks Medica [facility] History [facility] Alcohol Binge Medical Carl [facility] History [facility] Alcohol Comment Medical C enter Tobacco use and 2018-11-09 2018-11-09 Never used [facility] exposure 00:00:00 00:00:00 [facility] Alcohol intake 2018-11-09 2018[facility]11-09 [facility] non-drinker of Medical Ce nter alcohol (finding) History COOH 2018-11-09 2018-11-[address] [facility] Alcohol Frequency 00:00:00 00:00:00 [facility] Sex Ass[birth year] [facility] 00:00:00 00:00:00 [facility] Smoking Status Start Date Stop Date Source Unknown if ever smoked Common Sp nahed - [facility] Ce nter Never Smoker Common Spirit - [facility] nter Former smoker 2018-11-09 00:00:00 2018-11-09 00:00:00 [facility] Medications Ordered Filled Start Stop Current Ordering [...] Com 07-31 Spirit 00:00: - CHI 00 [facility] Kenalog Kenalog 2-0 No 40mg Common (Triamcinol (Triamcinol 5-26 S pirit one) one) 00:00: - CHI 00 [facility] Lidocaine Lidocaine 2022-0 No 10mg Com 07-31 Spirit 00:00: - CHI 00 [facility] Kenalog Kenalog 2022-0 No 40mg Common (Triamcinol (Triamcinol 5-26 S pirit one) one) 00:00: - CHI 00 [facility] Lidocaine Lidocaine 2-0 No 10mg Com 07-31 Spirit 00:00: - [facility]I [facility] Kenalog Kenalog 2022-0 No 40mg Common (Triamcinol (Triamcinol 5-26 S pirit one) one) 00:00: - CHI 00 [facility] Lidocaine Lidocaine 2022-0 No 10mg Com 07-31 Spirit 00:00: - CHI 00 [facility] Kenalog Kenalog 2022-0 No 40mg Common (Triamcinol (Triamcinol 5-26 S pirit one) one) 00:00: - CHI 00 [facility] Lidocaine Lidocaine 2022-0 No 10mg Com 07-31 Spirit 00:00: - CHI 00 [facility] Kenalog Kenalog 2022-0 No 40mg Common (Triamcinol (Triamcinol 5-26 S pirit one) one) 00:00: - CHI 00 [facility] Lidocaine Lidocaine 2-0 No 10mg Com 07-31 Spirit 00:00: - CHI 00 [facility] Kenalog Kenalog 2-0 No 40mg Common (Triamcinol (Triamcinol 5-26 S pirit one) one) 00:00: - CHI 00 [facility] Lidocaine Lidocaine 2-0 No 10mg Com 07-31 Spirit 00:00: - CHI 00 [facility] Kenalog Kenalog 2-0 No 40mg Common (Triamcinol (Triamcinol 5-26 S pirit one) one) 00:00: - CHI 00 [facility] Lidocaine Lidocaine 2-0 No 10mg Com 07-31 Spirit 00:00: - CHI 00 [facility] Kenalog Kenalog 2-0 No 40mg Common (Triamcinol (Triamcinol 5-26 S pirit one) one) 00:00: - CHI [facility] Lidocaine Lidocaine 2-0 No 10mg Com 07-31 Spirit 00:00: - CHI 00 [facility] Kenalog Kenalog 2-0 No 40mg Common (Triamcinol (Triamcinol 5-26 S pirit one) one) 00:00: - CHI 00 [facility] Lidocaine Lidocaine 2-0 No 10mg Com 07-31 Spirit 00:00: - CHI 00 [facility] Kenalog Kenalog 2-0 No 40mg Common (Triamcinol (Triamcinol 5-26 S pirit one) one) 00:00: - CHI [facility] Lidocaine Lidocaine 2-0 No 10mg Com 07-31 Spirit 00:00: - CHI 00 [facility] Kenalog Kenalog 2-0 No 40mg Common (Triamcinol (Triamcinol 5-26 S pirit one) one) 00:00: - CHI [facility] Lidocaine Lidocaine 2-0 No 10mg Com 07-31 Spirit 00:00: - CHI 00 [facility] Kenalog Kenalog 2-0 No 40mg Common (Triamcinol (Triamcinol 5-26 S pirit one) one) 00:00: - CHI 00 [facility] Lidocaine Lidocaine 2-0 No 10mg Com 07-31 Spirit 00:00: - CHI 00 [facility] Kenalog Kenalog 2-0 No 40mg Common (Triamcinol (Triamcinol 5-26 S pirit one) one) 00:00: - CHI 00 [facility] Lidocaine Lidocaine 2-0 No 10mg Com 07-31 Spirit 00:00: - CHI 00 [facility] Kenalog Kenalog 2-0 No 40mg Common (Triamcinol (Triamcinol 5-26 S pirit one) one) 00:00: - CHI 00 [facility] Lidocaine Lidocaine 2-0 No 10mg Com 07-31 Spirit 00:00: - CHI 00 [facility] Kenalog Kenalog 2-0 No 40mg Common (Triamcinol (Triamcinol 5-26 S pirit one) one) 00:00: - CHI 00 [facility] Lidocaine Lidocaine 2-0 No 10mg Com 07-31 Spirit 00:00: - CHI 00 [facility] Kenalog Kenalog 2-0 No 40mg Common (Triamcinol (Triamcinol 5-26 S pirit one) one) 00:00: - CHI 00 [facility] Lidocaine Lidocaine 2-0 No 10mg Com 07-31 Spirit 00:00: - CHI 00 [facility] Kenalog Kenalog 2-0 No 40mg Common (Triamcinol (Triamcinol 5-26 S pirit one) one) 00:00: - CHI 00 [facility] Lidocaine Lidocaine 2-0 No 10mg Com 07-31 Spirit 00:00: - CHI 00 [facility] Kenalog Kenalog 2-0 No 40mg Common (Triamcinol (Triamcinol 5-26 S pirit one) one) 00:00: - CHI 00 [facility] Lidocaine Lidocaine 2-0 No 10mg Com 07-31 Spirit 00:00: - CHI 00 [facility] Kenalog Kenalog 2-0 No 40mg Common (Triamcinol (Triamcinol 5-26 S pirit one) one) 00:00: - CHI 00 [facility] amitriptyli amitriptyli 0 No amitriptyl [...] pirit e) e) 00:00: - CHI 00 [facility] Rocephin Rocephin 2020- No 1g Commo n (Ceftriaxon (Ceftriaxon 1-22 S pirit e) e) 00:00: - CHI 00 [facility] Rocephin Rocephin 2020- No 1g Commo n (Ceftriaxon (Ceftriaxon 1-22 S pirit e) e) 00:00: - CHI 00 [facility] Rocephin Rocephin 2020- No 1g Commo n (Ceftriaxon (Ceftriaxon 1-22 S pirit e) e) 00:00: - CHI 00 [facility] Rocephin Rocephin 2020-03 No 1g Commo n (Ceftriaxon (Ceftriaxon 1-22 S pirit e) e) 00:00: - CHI 00 [facility] 2020-03 No 1g Commo n (Ceftriaxon (Ceftriaxon 1-22 S pirit e) e) 00:00: - CHI 00 [facility] 2020-03 No 1g Commo n (Ceftriaxon (Ceftriaxon 1-22 S pirit e) e) 00:00: - CHI 00 [facility] 2020-03 No 1g Commo n (Ceftriaxon (Ceftriaxon 1-22 S pirit e) e) 00:00: - CHI 00 [facility] 2020-03 No 1g Commo n (Ceftriaxon (Ceftriaxon 1-22 S pirit e) e) 00:00: - [facility]I 00 [facility] 2020-03 No 1g Commo n (Ceftriaxon (Ceftriaxon 1-22 S pirit e) e) 00:00: - [facility]I 00 [facility] 2020-03 No 1g Commo n (Ceftriaxon (Ceftriaxon 1-22 S pirit e) e) 00:00: - [facility]I 00 [facility] 2020-03 No 1g Commo n (Ceftriaxon (Ceftriaxon 1-22 S pirit e) e) 00:00: - CHI 00 [facility] No 1g Commo n (Ceftriaxon (Ceftriaxon 1-22 S pirit e) e) 00:00: - CHI 00 [facility] 2020-03 No 1g Commo n (Ceftriaxon (Ceftriaxon 1-22 S pirit e) e) 00:00: - CHI 00 [facility] 2020[facility]03 No 1g Commo n (Ceftriaxon (Ceftriaxon 1-22 S pirit e) e) 00:00: - CHI 00 [facility] 2020-03 No 1g Commo n (Ceftriaxon (Ceftriaxon 1-22 S pirit e) e) 00:00: - CHI 00 [facility] 2020-03 No 1g Commo n (Ceftriaxon (Ceftriaxon 1-22 S pirit e) e) 00:00: - CHI 00 [facility] 2020-03 No 1g Commo n (Ceftriaxon (Ceftriaxon 1-22 S pirit e) e) 00:00: - CHI 00 [facility] 2020-03 No 1g Commo n (Ceftriaxon (Ceftriaxon 1-22 S pirit e) e) 00:00: - CHI 00 [facility] 2020-03 No 1g Commo n (Ceftriaxon (Ceftriaxon 1-22 S pirit e) e) 00:00: - CHI 00 [facility] 2020-03 No 1g Commo n (Ceftriaxon (Ceftriaxon 1-22 S pirit e) e) 00:00: - CHI 00 [facility] 2020[facility]03 No 1g Commo n (Ceftriaxon (Ceftriaxon 1-22 S pirit e) e) 00:00: - CHI 00 [facility] 2020-03 No 1g Commo n (Ceftriaxon (Ceftriaxon 1-22 S pirit e) e) 00:00: - CHI 00 [facility] 2020-03 No 1g Commo n (Ceftriaxon (Ceftriaxon 1-22 S pirit e) e) 00:00: - CHI 00 [facility] 2020-03 No 1g Commo n (Ceftriaxon (Ceftriaxon 1-22 S pirit e) e) 00:00: - CHI 00 [facility] 2020-03 No 1g Commo n (Ceftriaxon (Ceftriaxon 1-22 S pirit e) e) 00:00: - CHI 00 [facility] 2020-03 No 1g Commo n (Ceftriaxon (Ceftriaxon 1-22 S pirit e) e) 00:00: - CHI 00 [facility] VESIcare 10 VESIcare 10 2020-032- [...] Center tablet daily . lipase-prot 2019-0 Yes [id number]{ Take [facility] 9-06 lipase} 36,000 [...] Center tablet daily . lipase-prot 2019-0 Yes [id number]{ Take [facility] 9-06 lipase} 36,000 [...] Center tablet daily . lipase-prot 2019-0 Yes [id number]{ Take [facility] 9-06 lipase} 36,000 [...] Center tablet daily . lipase-prot 2019-0 Yes [id number]{ Take [facility] 9-06 lipase} 36,000 [...] Center tablet daily . lipase-prot 2019-0 Yes [id number]{ Take [facility] 9-06 lipase} 36,000 [...] Center tablet daily . lipase-prot 2019-0 Yes [id number]{ Take [facility] 9-06 lipase} 36,000 [...] Medic al MG tablet 08 Center albuterol 2018-0 Yes 2.5mg Take 0.[address] (PROVENTIL) 9-06 mLs (2.5 Luke s 2.5 mg/0.5 00:00: mg total) Me dical mL Nebu 00 by Center nebulizer nebulizati solution on every 4 (four) hours as needed. albuterol 0 Yes 2.5mg Take 0.[address] (PROVENTIL) [...] every 4 (four) hours as needed. albuterol 2018-0 Yes 2.5mg Take 0.[address] (PROVENTIL) 9-06 mLs (2.5 Luke s 2.5 mg/0.5 00:00: mg total) Me dical mL Nebu 00 by Center nebulizer nebulizati solution on every 4 (four) hours as needed. Kenalog Kenalog No 40mg Common (Triamcinol (Triamcinol 2-18 S pirit one) one) 00:00: - CHI 00 [facility] Kenalog Kenalog 2019-0 No 40mg Common (Triamcinol (Triamcinol 2-18 S pirit one) one) 00:00: - CHI 00 [facility] Kenalog Kenalog 2019-0 No 40mg Common (Triamcinol (Triamcinol 2-18 S pirit one) one) 00:00: - CHI 00 [facility] Kenalog Kenalog 2019-0 No 40mg Common (Triamcinol (Triamcinol 2-18 S pirit one) one) 00:00: - CHI 00 [facility] Kenalog Kenalog 2019-0 No 40mg Common (Triamcinol (Triamcinol 2-18 S pirit one) one) 00:00: - CHI 00 [facility] Kenalog Kenalog 2019-0 No 40mg Common (Triamcinol (Triamcinol 2-18 S pirit one) one) 00:00: - CHI 00 [facility] Kenalog Kenalog 2019-0 No 40mg Common (Triamcinol (Triamcinol 2-18 S pirit one) one) 00:00: - CHI 00 [facility] Kenalog Kenalog 2019-0 No 40mg Common (Triamcinol (Triamcinol 2-18 S pirit one) one) 00:00: - CHI 00 [facility] Kenalog Kenalog 2019-0 No 40mg Common (Triamcinol (Triamcinol 2-18 S pirit one) one) 00:00: - CHI 00 [facility] Kenalog Kenalog 2019-0 No 40mg Common (Triamcinol (Triamcinol 2-18 S pirit one) one) 00:00: - CHI 00 [facility] Kenalog Kenalog 2019-0 No 40mg Common (Triamcinol (Triamcinol 2-18 S pirit one) one) 00:00: - CHI 00 [facility] Kenalog Kenalog 2019-0 No 40mg Common (Triamcinol (Triamcinol 2-18 S pirit one) one) 00:00: - CHI 00 [facility] Kenalog Kenalog 2019-0 No 40mg Common (Triamcinol (Triamcinol 2-18 S pirit one) one) 00:00: - CHI 00 [facility] Kenalog Kenalog 2019-0 No 40mg Common (Triamcinol (Triamcinol 2-18 S pirit one) one) 00:00: - CHI 00 [facility] Kenalog Kenalog 2019-0 No 40mg Common (Triamcinol (Triamcinol 2-18 S pirit one) one) 00:00: - CHI 00 [facility] Kenalog Kenalog 2019-0 No 40mg Common (Triamcinol (Triamcinol 2-18 S pirit one) one) 00:00: - CHI 00 [facility] Kenalog Kenalog 2019-0 No 40mg Common (Triamcinol (Triamcinol 2-18 S pirit one) one) 00:00: - CHI 00 [facility] Kenalog Kenalog 2019-0 No 40mg Common (Triamcinol (Triamcinol 2-18 S pirit one) one) 00:00: - CHI 00 [facility] Kenalog Kenalog 2019-0 No 40mg Common (Triamcinol (Triamcinol 2-18 S pirit one) one) 00:00: - CHI 00 [facility] Kenalog Kenalog 2019-0 No 40mg Common (Triamcinol (Triamcinol 2-18 S pirit one) one) 00:00: - CHI 00 [facility] Kenalog Kenalog 2019-0 No 40mg Common (Triamcinol (Triamcinol 2-18 S pirit one) one) 00:00: - CHI 00 [facility] Kenalog Kenalog 2019-0 No 40mg Common (Triamcinol (Triamcinol 2-18 S pirit one) one) 00:00: - CHI 00 [facility] Kenalog Kenalog 2019-0 No 40mg Common (Triamcinol (Triamcinol 2-18 S pirit one) one) 00:00: - CHI 00 [facility] Kenalog Kenalog 2019-0 No 40mg Common (Triamcinol (Triamcinol 2-18 S pirit one) one) 00:00: - CHI 00 [facility] Kenalog Kenalog 2019-0 No 40mg Common (Triamcinol (Triamcinol 2-18 S pirit one) one) 00:00: - CHI 00 [facility] Kenalog Kenalog 2019-0 No 40mg Common (Triamcinol (Triamcinol 2-18 S pirit one) one) 00:00: - CHI [facility] Kenalog Kenalog 2019-0 No 40mg Common (Triamcinol (Triamcinol 2-18 S pirit one) one) 00:00: - CHI 00 [facility] Gentamicin Gentamicin 2018-1 No 80mg C ommon 80mg 80mg 0-30 Spirit 00:00: - CHI [facility] Gentamicin Gentamicin 2017-1 No 80mg C ommon 80mg 80mg 0-30 Spirit 00:00: - CHI [facility] Gentamicin Gentamicin 2017-1 No 80mg C ommon 80mg 80mg 0-30 Spirit 00:00: - CHI [facility] Gentamicin Gentamicin 2017-1 No 80mg C ommon 80mg 80mg 0-30 Spirit 00:00: - CHI [facility] Gentamicin Gentamicin 2017-1 No 80mg C ommon 80mg 80mg 0-30 Spirit 00:00: - CHI 00 [facility] Gentamicin Gentamicin 2018-1 No 80mg C ommon 80mg 80mg 0-30 Spirit 00:00: - CHI [facility] Gentamicin Gentamicin 2018-1 No 80mg C ommon 80mg 80mg 0-30 Spirit 00:00: - CHI [facility] Gentamicin Gentamicin 2018-1 No 80mg C ommon 80mg 80mg 0-30 Spirit 00:00: - CHI [facility] Gentamicin Gentamicin 2018-1 No 80mg C ommon 80mg 80mg 0-30 Spirit 00:00: - CHI [facility] Gentamicin Gentamicin 2018-1 No 80mg C ommon 80mg 80mg 0-30 Spirit 00:00: - CHI [facility] Gentamicin Gentamicin 2018-1 No 80mg C ommon 80mg 80mg 0-30 Spirit 00:00: - CHI [facility] Gentamicin Gentamicin 2017-1 No 80mg C ommon 80mg 80mg 0-30 Spirit 00:00: - CHI [facility] Gentamicin Gentamicin 2017-1 No 80mg C ommon 80mg 80mg 0-30 Spirit 00:00: - CHI 00 [facility] Gentamicin Gentamicin 2017-1 No 80mg C ommon 80mg 80mg 0-30 Spirit 00:00: - CHI 00 [facility] Gentamicin Gentamicin 2017-1 No 80mg C ommon 80mg 80mg 0-30 Spirit 00:00: - CHI 00 [facility] Gentamicin Gentamicin 2017-1 No 80mg C ommon 80mg 80mg 0-30 Spirit 00:00: - CHI 00 [facility] Gentamicin Gentamicin 2017-1 No 80mg C ommon 80mg 80mg 0-30 Spirit 00:00: - CHI 00 [facility] Gentamicin Gentamicin 2017- No 80mg C ommon 80mg 80mg 0-30 Spirit 00:00: - CHI 00 [facility] Gentamicin Gentamicin 2017-1 No 80mg C ommon 80mg 80mg 0-30 Spirit 00:00: - CHI [facility] Gentamicin Gentamicin 2017-1 No 80mg C ommon 80mg 80mg 0-30 Spirit 00:00: - CHI 00 [facility] Gentamicin Gentamicin 2017-1 No 80mg C ommon 80mg 80mg 0-30 Spirit 00:00: - CHI [facility] Gentamicin Gentamicin 2017-1 No 80mg C ommon 80mg 80mg 0-30 Spirit 00:00: - CHI 00 [facility] Gentamicin Gentamicin 2017-1 No 80mg C ommon 80mg 80mg 0-30 Spirit 00:00: - CHI [facility] Gentamicin Gentamicin 2017-1 No 80mg C ommon 80mg 80mg 0-30 Spirit 00:00: - CHI 00 [facility] Gentamicin Gentamicin 2017-1 No 80mg C ommon 80mg 80mg 0-30 Spirit 00:00: - CHI 00 [facility] Gentamicin Gentamicin 2017-1 No 80mg C ommon 80mg 80mg 0-30 Spirit 00:00: - CHI 00 [facility] Gentamicin Gentamicin 2017-1 No 80mg C ommon 80mg 80mg 0-30 Spirit 00:00: - CHI [facility] Gentamicin Gentamicin 2018-0 No 240mg Common 80mg 80mg 7 Spirit 00:00: - CHI 00 [facility] Gentamicin Gentamicin 2018-0 No 240mg Common 80mg 80mg 09-30 Spirit 00:00: - CHI [facility] Gentamicin Gentamicin 2018-0 No 240mg Common 80mg 80mg 09-30 Spirit 00:00: - CHI [facility] Gentamicin Gentamicin 2018-0 No 240mg Common 80mg 80mg 09-30 Spirit 00:00: - CHI [facility] Gentamicin Gentamicin 2018-0 No 240mg Common 80mg 80mg 09-30 Spirit 00:00: - CHI [facility] Gentamicin Gentamicin 2018-0 No 240mg Common 80mg 80mg 09-30 Spirit 00:00: - CHI [facility] Gentamicin Gentamicin 2018-0 No 240mg Common 80mg 80mg 09-30 Spirit 00:00: - CHI [facility] Gentamicin Gentamicin 2018-0 No 240mg Common 80mg 80mg 09-30 Spirit 00:00: - CHI [facility] Gentamicin Gentamicin 2018-0 No 240mg Common 80mg 80mg 09-30 Spirit 00:00: - CHI [facility] Gentamicin Gentamicin 2018-0 No 240mg Common 80mg 80mg 09-30 [facility] 00:00: - [facility] Gentamicin Gentamicin 2018-0 No 240mg Common 80mg 80mg 09-30 Spirit 00:00: - [facility] Gentamicin Gentamicin 2018-0 No 240mg Common 80mg 80mg 09-30 Spirit 00:00: - [facility] Gentamicin Gentamicin 2018-0 No 240mg Common 80mg 80mg 09-30 Spirit 00:00: - [facility] Gentamicin Gentamicin 2018-0 No 240mg Common 80mg 80mg 09-30 Spirit 00:00: - [facility] Gentamicin Gentamicin 2018-0 No 240mg Common 80mg 80mg 09-30 Spirit 00:00: - [facility] Gentamicin Gentamicin 2018-0 No 240mg Common 80mg 80mg 09-30 Spirit 00:00: - [facility] Gentamicin Gentamicin 2018-0 No 240mg Common 80mg 80mg 09-30 Spirit 00:00: - [facility] Gentamicin Gentamicin 2018-0 No 240mg Common 80mg 80mg 09-30 [facility] 00:00: - [facility] Gentamicin Gentamicin 2018-0 No 240mg Common 80mg 80mg 09-30 Spirit 00:00: - [facility] Gentamicin Gentamicin 2018-0 No 240mg Common 80mg 80mg 09-30 [facility] 00:00: - [facility] Gentamicin Gentamicin 2018-0 No 240mg Common 80mg 80mg 09-30 Spirit 00:00: - [facility] Gentamicin Gentamicin 2018-0 No 240mg Common 80mg 80mg 09-30 [facility] 00:00: - [facility] Gentamicin Gentamicin 2018-0 No 240mg Common 80mg 80mg 09-30 Spirit 00:00: - [facility] Gentamicin Gentamicin 2018-0 No 240mg Common 80mg 80mg 09-30 [facility] 00:00: - [facility] Gentamicin Gentamicin 2018-0 No 240mg Common 80mg 80mg 09-30 [facility] 00:00: - [facility] Gentamicin Gentamicin 2018-0 No 240mg Common 80mg 80mg 09-30 Spirit 00:00: - [facility] Gentamicin Gentamicin 2018-0 No 240mg Common 80mg 80mg 09-30 [facility] 00:00: - [facility] Culturelle Culturelle No Culturelle - - - HYDROcodone HYDROcodone No 1{table QID HYDROcodon -Acetaminop -Acetaminop t_as_ne e-Acetamin hen 7.5-325 hen 7.5-325 eded} ophen MG MG 7.5-325 MG Protonix 40 Protonix 40 No 1{table QD Protonix MG MG t} 40 MG Creon Creon No TID Creon 41364-74789 19805-48289 12[address]-8004 UNIT UNIT 0 UNIT Neurontin Neurontin No [...] 40 MG Creon Creon No TID Creon 48021-59100 38523-14015 59120-3070 UNIT UNIT 0 UNIT Protonix 40 Protonix [...] - - Creon Creon No TID Creon 16152-62901 37927-02109 6[address]40[address] UNIT UNIT 0 UNIT Protonix 40 Protonix [...] MG eded} Creon Creon No TID Creon 73968-37195 51083-94104 193[address]3531 UNIT UNIT 0 UNIT Pantoprazol Pantoprazol No [...] e_eveni ng} Creon Creon No TID Creon 66187-04541 01592-16474 [address] UNIT UNIT 0 UNIT Metoprolol Metoprolol No [...] e_eveni ng} Creon Creon No TID Creon 29098-40069 61921-04627 [address] UNIT UNIT 0 UNIT Metoprolol Metoprolol No [...] e_eveni ng} Creon Creon No TID Creon 58702-54521 21849-72388 [address] UNIT UNIT 0 UNIT Metoprolol Metoprolol No [...] MG 300 MG le_befo 300 MG re_bedt rsoalia} Creon Creon No TID Creon 64530-85727 38238-87216 [address] UNIT UNIT 0 UNIT Metoprolol Metoprolol No [...] re_bedt rosalia} Creon Creon No TID Creon 31459-64809 98936-61469 11032[address]43[address] UNIT UNIT 0 UNIT Metoprolol Metoprolol No [...] re_bedt rosalia} Creon Creon No TID Creon 21549-43376 59008-76221 67936[address]155 UNIT UNIT 0 UNIT Metoprolol Metoprolol No [...] 40 MG Creon Creon No TID Creon 79463-94392 18017-39510 [address] UNIT UNIT 0 UNIT cloNIDine cloNIDine No [...] 40 MG Creon Creon No TID Creon 34222-33906 37443-08020 [address] UNIT UNIT 0 UNIT cloNIDine cloNIDine No [...] 40 MG Creon Creon No TID Creon 46324-64439 78377-66332 75053-5498 UNIT UNIT 0 UNIT traZODone traZODone No [...] 40 MG Creon Creon No TID Creon 26970-37704 09885-11497 [address] UNIT UNIT 0 UNIT cloNIDine cloNIDine No [...] MG dtime} Creon Creon No TID Creon 47878-01403 58503-27946 [address] UNIT UNIT 0 UNIT Citalopram Citalopram No [...] MG dtime} Creon Creon No TID Creon 53421-74747 69693-88501 [address] UNIT UNIT 0 UNIT Citalopram Citalopram No [...] MG dtime} Creon Creon No TID Creon 08581-32976 50054-32880 [address] UNIT UNIT 0 UNIT Citalopram Citalopram No [...] MG dtime} Creon Creon No TID Creon 17786-76274 23604-06218 311[address] UNIT UNIT 0 UNIT traZODone traZODone No [...] 40 MG Creon Creon No TID Creon 01923-78146 58310-85159 9[address] UNIT UNIT 0 UNIT Zestoretic Zestoretic No [...] MG eded} Creon Creon No TID Creon 73195-58202 06247-73543 188[address]6391 UNIT UNIT 0 UNIT Citalopram Citalopram No [...] MG eded} Creon Creon No TID Creon 56542-38610 35766[address]91005 [address] UNIT UNIT 0 UNIT Citalopram Citalopram No [...] MG eded} Creon Creon No TID Creon 90430-65539 90011-22185 [address] UNIT UNIT 0 UNIT Citalopram Citalopram No [...] MG eded} Creon Creon No TID Creon 21897-40217 74289-39572 5[address] UNIT UNIT 0 UNIT Citalopram Citalopram No [...] MG eded} Creon Creon No TID Creon 90067-26780 67624-06540 [address] UNIT UNIT 0 UNIT Citalopram Citalopram No [...] MG eded} Creon Creon No TID Creon 54985-14673 06091-31196 107[address] UNIT UNIT 0 UNIT Citalopram Citalopram No [...] 50 MG Creon Creon No TID Creon 01213-99267 21091-84568 [address] UNIT UNIT 0 UNIT Culturelle Culturelle No [...] 50 MG Creon Creon No TID Creon 02959-21394 15779-06133 9[address]50[address] UNIT UNIT 0 UNIT Culturelle Culturelle No [...] 40 MG Creon Creon No TID Creon 59847-54785 41203-86904 8[address]455 UNIT UNIT 0 UNIT Metoprolol Metoprolol No 1{table BID Metoprolol Tartrate 50 Tartrate 50 t_with_ Tartrate MG MG food} 50 MG Metoprolol Metoprolol No 1{table BID Metoprolol Tartrate 50 Tartrate 50 t_with_ Tartrate MG MG food} 50 MG Creon Creon No TID Creon 52216-74194 43107-08980 [address] UNIT UNIT 0 UNIT Culturelle Culturelle No [...] 40 MG Creon Creon No TID Creon 47200-77769 25008-44221 85147[address] UNIT UNIT 0 UNIT HYDROcodone HYDROcodone No [...] 40 MG Creon Creon No TID Creon 50231-67620 21326-92823 [address] UNIT UNIT 0 UNIT Neurontin Neurontin No [...] 40 MG Creon Creon No TID Creon 43787-88500 94602-60265 [address] UNIT UNIT 0 UNIT Neurontin Neurontin No [...] 40 MG Creon Creon No TID Creon 13662-99906 26323-80577 265[address] UNIT UNIT 0 UNIT Neurontin Neurontin No [...] 40 MG Creon Creon No TID Creon 67849-14933 55280-80675 [address] UNIT UNIT 0 UNIT Neurontin Neurontin No [...] 40 MG Creon Creon No TID Creon 35903-32368 41803-30740 [address] UNIT UNIT 0 UNIT Neurontin Neurontin No [...] 40 MG Creon Creon No TID Creon 71260-79633 45671-69113 43116[address]0705 UNIT UNIT 0 UNIT Neurontin Neurontin No [...] 40 MG Creon Creon No TID Creon 66570-37507 22522-53148 9[address]14[address] UNIT UNIT 0 UNIT Neurontin Neurontin No [...] re_bedt rosalia} Creon Creon No TID Creon 23839-08104 38319-86010 [address] UNIT UNIT 0 UNIT HYDROcodone HYDROcodone No 1{table QID HYDROcodon -Acetaminop -Acetaminop t_as_ne e-Acetamin hen 7.5-325 hen 7.5-325 eded} ophen MG MG 7.5-325 MG Famotidine Famotidine No 1{table BID Famotidine 10 MG 10 MG t_as_ne 10 MG eded} Culturelle Culturelle No Culturelle - - - Protonix 40 Protonix 40 No 1{table QD Protonix MG MG t} 40 MG Creon Creon No TID Creon 49191-73612 54119-50773 5[address]23[address]62 UNIT UNIT 0 UNIT Neurontin Neurontin No 1{capsu QD Neurontin 300 MG 300 MG le_befo 300 MG re_bedt rosalia} Pantoprazol Pantoprazol No 1{table QD Pantoprazo e Sodium 40 e Sodium 40 t} le Sodium MG MG 40 MG Famotidine Famotidine No 1{table BID Famotidine 10 MG 10 MG t_as_ne 10 MG eded} Clotrimazol Clotrimazol 2020- No Dmitry 1 Common e e 10-12 [facility] applicatio [facility] 00:00 n to - [facility] :00 affected [facility] Immunizations Ordered Immunization Filled Immunization Date Status Commen ts Source Name Name Mina Enriquez 2018-04-25 Completed [facility] (Triamcinolone) (Triamcinolone) 09:55:00 - [facility] Mina Enriquez 2018-04-25 Completed [facility] (Triamcinolone) (Triamcinolone) 09:55:00 - [facility] Mina Enriquez 2018-04-25 Completed [facility] (Triamcinolone) (Triamcinolone) 09:55:00 - [facility] Mina Enriquez 2018-04-25 Completed [facility] (Triamcinolone) (Triamcinolone) 09:55:00 - [facility] Mina Enriquez 2018-04-25 Completed [facility] (Triamcinolone) (Triamcinolone) 09:55:00 - [facility] Mina Enriquez 2018-04-25 Completed [facility] (Triamcinolone) (Triamcinolone) 09:55:00 - [facility] Mina Enriquez 2018-04-25 Completed [facility] (Triamcinolone) (Triamcinolone) 09:55:00 [facility] Gentamicin 80mg Gentamicin 80mg 2018-01-04 Completed Comm on [facility] 11:59:00 - [facility] Gentamicin 80mg Gentamicin 80mg 2018-01-04 Completed Comm on [facility] 11:59:00 [facility] Gentamicin 80mg Gentamicin 80mg 2018-01-04 Completed Comm on [facility] 11:59:00 [facility] Gentamicin 80mg Gentamicin 80mg 2018-01-04 Completed [facility] on [facility] 11:59:00 [facility] Gentamicin 80mg Gentamicin 80mg 2018-01-04 Completed Comm on [facility] 11:59:00 [facility] Gentamicin 80mg Gentamicin 80mg 2018-01-04 Completed [facility] on [facility] 11:59:00 [facility] Gentamicin 80mg Gentamicin 80mg 2018-01-04 Completed [facility] on [facility] 11:59:00 [facility] Gentamicin 80mg Gentamicin 80mg 2017-09-30 Completed [facility] on [facility] 15:54:00 [facility] Gentamicin 80mg Gentamicin 80mg 2017-09-30 Completed [facility] on [facility] 15:54:00 - [facility] Gentamicin 80mg Gentamicin 80mg 2017-09-30 Completed [facility] on [facility] 15:54:00 - [facility] Gentamicin 80mg Gentamicin 80mg 2017-09-30 Completed [facility] on [facility] 15:54:00 - [facility] Gentamicin 80mg Gentamicin 80mg 2017-09-30 Completed [facility] on [facility] 15:54:00 - [facility] Gentamicin 80mg Gentamicin 80mg 2017-09-30 Completed [facility] 15:54:00 - [facility] Gentamicin 80mg Gentamicin 80mg 2017-09-30 Completed [facility] on [facility] 15:54:00 [facility] Vital Signs Vital Name Observation Time Observation Value Comments Source height 2022-03-11 13:00:00 61 [in_i] [facility] weight 2022-03-11 13:00:00 170 [lb_av] [facility] temperature 2022-03-11 13:00:00 97.3 [degF] [facility] bmi 2022-03-11 13:00:00 32.12 kg/m2 [facility] oximetry 2022-03-11 13:00:00 96 % [facility] respiratory rate 2022-03-11 13:00:00 16 /min Comm on [facility] blood pressure 2022-03-11 13:00:00 138 mm[Hg] [facility] [place] [facility] blood pressure 2022-03-11 13:00:00 96 mm[Hg] Common [facility] diastolic [facility] blood pressure 2022-02-19 09:45:00 132 mm[Hg] Common [facility] systolic [facility] blood pressure 2022-02-19 09:45:00 68 mm[Hg] [facility] [place] [place] [facility] height 2022-02-19 09:45:00 61 [in_i] [facility] weight 2022-02-19 09:45:00 165 [lb_av] Common [facility] temperature 2022-02-19 09:45:00 97.8 [degF] Common [facility] bmi 2022-02-19 09:45:00 31.17 kg/m2 Common [facility] oximetry 2022-02-19 09:45:00 96 % Common [facility] respiratory rate 2022-02-19 09:45:00 18 /min Comm on [facility] height 2022-01-14 11:00:00 61 [in_i] Common [facility] weight 2022-01-14 11:00:00 165 [lb_av] [facility] temperature 2022-01-14 11:00:00 97.8 [degF] [facility] bmi 2022-01-14 11:00:00 31.17 kg/m2 [facility] oximetry 2022-01-14 11:00:00 97 % [facility] respiratory rate 2022-01-14 11:00:00 16 /min Comm on [facility] blood pressure 2022-01-14 11:00:00 142 mm[Hg] Common [facility] - systolic [facility] blood pressure 2022-01-14 11:00:00 89 mm[Hg] Common [facility] - diastolic [facility] height 2021-08-01 13:30:00 61 [in_i] Common [facility] weight 2021-08-01 13:30:00 181 [lb_av] Common [facility] temperature 2021-08-01 13:30:00 98 [degF] Common [facility] bmi 2021-08-01 13:30:00 34.2 kg/m2 [facility] blood pressure 2021-08-01 13:30:00 136 mm[Hg] Common [facility] - systolic [facility] blood pressure 2021-08-01 13:30:00 76 mm[Hg] [facility] - diastolic [facility] height 2021-07-31 09:30:00 61 [in_i] Common S pirit - [facility] weight 2021-07-31 09:30:00 180 [lb_av] Common S pirit [facility] bmi 2021-07-31 09:30:00 34.01 kg/m2 Common S pirit - [facility] blood pressure 2021-07-31 09:30:00 144 mm[Hg] [facility] - systolic [facility] blood pressure 2021-07-31 09:30:00 80 mm[Hg] [facility] - diastolic [facility] height 2021-07-25 11:30:00 61 [in_i] [facility] weight 2021-07-25 11:30:00 180 [lb_av] [facility] [place] [place] [facility] temperature 2021-07-25 11:30:00 98.1 [degF] [facility] S pirit [facility] bmi 2021-07-25 11:30:00 34.01 kg/m2 [facility] oximetry 2021-07-25 11:30:00 96 % [facility] respiratory rate 2021-07-25 11:30:00 16 /min [facility] on [facility] - [facility] blood pressure 2021-07-25 11:30:00 146 mm[Hg] [facility] - systolic [facility] blood pressure 2021-07-25 11:30:00 88 mm[Hg] [facility] - diastolic [facility] height 2021-04-21 14:15:00 61 [in_i] Common [facility] weight 2021-04-21 14:15:00 180 [lb_av] [facility] [place] [place] [facility] temperature 2021-04-21 14:15:00 97.6 [degF] Common S pirit [facility] bmi 2021-04-21 14:15:00 34.01 kg/m2 Common S pirit - [facility] oximetry 2021-04-21 14:15:00 94 % Common S pirit [facility] respiratory rate 2021-04-21 14:15:00 18 /min Comm on [facility] blood pressure 2021-04-21 14:15:00 136 mm[Hg] Common [facility] - systolic [facility] blood pressure 2021-04-21 14:15:00 68 mm[Hg] [facility] - diastolic [facility] height 2021-04-14 14:00:00 61 [in_i] Common S pirit [facility] weight 2021-04-14 14:00:00 180 [lb_av] Common S pirit [facility] bmi 2021-04-14 14:00:00 34.01 kg/m2 Common S pirit - [facility] blood pressure 2021-04-14 14:00:00 132 mm[Hg] [facility] - systolic [facility] blood pressure 2021-04-14 14:00:00 80 mm[Hg] [facility] - diastolic [facility] height 2021-03-06 16:30:00 61 [in_i] Common [facility] weight 2021-03-06 16:30:00 180 [lb_av] Common S pirit [facility] temperature 2021-03-06 16:30:00 97.8 [degF] Common S pirit [facility] bmi 2021-03-06 16:30:00 34.01 kg/m2 [facility] S pirit [facility] oximetry 2021-03-06 16:30:00 99 % [facility] respiratory rate 2021-03-06 16:30:00 18 /min [facility] on [facility] blood pressure 2021-03-06 16:30:00 135 mm[Hg] Common [facility] - systolic [facility] blood pressure 2021-03-06 16:30:00 90 mm[Hg] [facility] - diastolic [facility] height 2021-01-27 16:20:00 61 [in_i] Common S pirit - [facility] weight 2021-01-27 16:20:00 180 [lb_av] Common S pirit - [facility] temperature 2021-01-27 16:20:00 97.6 [degF] Common S pirit [facility] bmi 2021-01-27 16:20:00 34.01 kg/m2 Common S pirit - [facility] oximetry 2021-01-27 16:20:00 98 % Common S pirit - [facility] blood pressure 2021-01-27 16:20:00 132 mm[Hg] [facility] - systolic [facility] blood pressure 2021-01-27 16:20:00 68 mm[Hg] [facility] - diastolic [facility] height 2020-12-25 14:45:00 61 [in_i] [facility] weight 2020-12-25 14:45:00 180 [lb_av] Common S pirit [facility] temperature 2020-12-25 14:45:00 97.6 [degF] Common S pirit [facility] bmi 2020-12-25 14:45:00 34.01 kg/m2 Common S pirit [facility] oximetry 2020-12-25 14:45:00 97 % Common S pirit [facility] blood pressure 2020-12-25 14:45:00 147 mm[Hg] [facility] - systolic [facility] blood pressure 2020-12-25 14:45:00 84 mm[Hg] [facility] - diastolic [facility] height 2020-12-02 15:40:00 61 [in_i] Common S pirit [facility] weight 2020-12-02 15:40:00 180 [lb_av] Common S pirit [facility] temperature 2020-12-02 15:40:00 97.8 [degF] Common S pirit [facility] bmi 2020-12-02 15:40:00 34.01 kg/m2 Common S pirit - [facility] oximetry 2020-12-02 15:40:00 96 % Common S pirit - [facility] blood pressure 2020-12-02 15:40:00 184 mm[Hg] [facility] - systolic [facility] blood pressure 2020-12-02 15:40:00 104 mm[Hg] [facility] - diastolic [facility] height 2020-10-16 13:40:00 61 [in_i] Common [facility] weight 2020-10-16 13:40:00 178 [lb_av] Common [facility] temperature 2020-10-16 13:40:00 97.4 [degF] Common [facility] bmi 2020-10-16 13:40:00 33.63 kg/m2 Common [facility] blood pressure 2020-10-16 13:40:00 128 mm[Hg] [facility] - systolic [facility] blood pressure 2020-10-16 13:40:00 76 mm[Hg] [facility] - diastolic [facility] height 2020-10-16 16:30:00 61 [in_i] Common [facility] weight 2020-10-16 16:30:00 180 [lb_av] [facility] temperature 2020-10-16 16:30:00 97.7 [degF] [facility] bmi 2020-10-16 16:30:00 34.01 kg/m2 [facility] oximetry 2020-10-16 16:30:00 97 % Common [facility] blood pressure 2020-10-16 16:30:00 162 mm[Hg] [facility] - systolic [facility] blood pressure 2020-10-16 16:30:00 96 mm[Hg] Common [facility] - diastolic [facility] Procedures This patient has no known procedures. Plan of Care Planned Activity Planned Date Details Comments Source Future Scheduled 2020-11-06 INFLUENZA VACCINE [facility] Test 00:00:00 (Season Ended) [code = Medic [facility] ([address] [facility] [id number] PCV13) [code = PNEUMOCOCCAL 65+ YRS (1 of 1 - [id number] PCV13)] Future Scheduled 2012-12-28 PNEUMOCOCCAL 65+ Y[facility] Test 00:00:00 (1 of 1 [facility] [id number] PCV13) [code = PNEUMOCOCCAL 65+ YRS (1 of 1 - [id number] PCV13)] Future Scheduled 2012-12-28 PNEUMOCOCCAL 65+ [facility] Test 00:00:00 ([address] [facility] [id number] PCV13) [code = PNEUMOCOCCAL 65+ YRS (1 of 1 - [id number] PCV13)] Future Scheduled 1997-12-28 SHINGLES VACCINES (1 [...] [facility] breast (procedure) [code = 041557628] Future Scheduled [address] [facility] colon (procedure) [code = 992378284] Future Scheduled [address] [facility] 00:[facility]:00 [facility] breast (procedure) [code = 256397316] Future Scheduled [address] [facility] 00:[facility]:00 [facility] colon (procedure) [code = 806149256] Future Scheduled [address] [facility] 00:[facility]:00 [facility] breast (procedure) [code = 215449642] Future Scheduled [address] [facility] 00:[facility]:00 [facility] colon (procedure) [code = 254537227] Encounters Start End Encounter Admission Attending Care Care Encounter Source Date/Time Date/Time Type Type Clinicians Facility Department ID 2021-07-31 Outpatient Powell, [facility] [id number] Common 09:46:01 Dmitry [facility] 2021-04-02 Outpatient Powell, [facility] [id number] Common 14:02:15 Dmitry 33150 [facility] 2021-04-02 Outpatient Powell, [facility] [id number] Common 14:01:19 Dmitry 47388 [facility] 2021-04-02 Outpatient Powell, [facility] [id number] Common 13:38:40 Dmitry [id number] [facility] 2021-04-02 Outpatient Powell, [facility] [id number] Common 13:36:48 Dmitry 39347 [facility] 2021-04-02 [facility] [id number] Common 13:28:35 Dmitry 88627 [facility] 2021-04-02 Outpatient Powell, STLMLC STLMLC [id number] Common 13:28:20 Dmitry 63776 [facility] 2021-04-02 Outpatient Powell, STLMLC STLMLC [id number] Common 13:04:41 Dmitry 25843 [facility] 2021-04-02 Outpatient Powell, STLMLC STLMLC [id number] Common 12:55:20 Dmitry 18607 [facility] 2021-04-02 Outpatient Powell, STLMLC STLMLC [id number] Common 12:37:32 Dmitry 76919 [facility] 2021-04-02 Outpatient Powell, STLMLC STLMLC [id number] Common 11:40:56 Dmitry 37949 [facility] 2021-04-02 Outpatient Powell, STLMLC STLMLC [id number] Common 11:32:24 Dmitry 58303 [facility] 2021-04-02 Outpatient Powell, STLMLC STLMLC [id number] Common 10:59:26 Dmitry 97356 [facility] 2021-04-02 Outpatient Powell, STLMLC STLMLC [id number] Common 10:59:05 Dmitry 34726 [facility] 2020-12-[address] [facility] Urology [id number] [facility] 2022-03-26 2022-03-26 Outpatient [place] [facility] [id number] [facility]:00:00 00:00:00 [id number] [facility] 2022-03-26 2022-03-26 Outpatient Ogweno_B [facility] [facility] [place] [id number] [facility] 00:00:00 00:00:00 [id number] [facility] 2022-03-24 2022-03-24 (TEL) STLMLC STLMLC [id number] Co mmon 00:00:00 00:00:00 [facility] 2022-03-11 2022-03-11 OFFICE STLMLC STLC [id number] Co mmon 00:00:00 00:00:00 VISIT Spirit ESTAB PT - [facility]I LEVEL 4 [facility] 2022-03-06 2022-03-06 (TEL) STLMLC STLMLC [id number] Co mmon 00:00:00 00:00:00 [facility] 2022-02-23 2022-02-23 [place]patient DMG [place] [id number] [facility] 00:00:00 00:00:00 [id number] [facility] 2022-02-19 2022-02-19 OFFICE STLMLC STLMLC [id number] Co mmon 00:00:00 00:00:00 VISIT EST Spir it PT LEVEL 3 - [facility] 2022-01-14 2022-01-14 OFFICE STLMLC STLMLC [id number] Co mmon 00:00:00 00:00:00 VISIT EST Spir it PT LEVEL 3 - [facility] 2021-12-23 2021-12-23 (TEL) STLMLC STLMLC [id number] Co mmon 00:00:00 00:00:00 [facility] 2021-12-19 2021-12-19 OFFICE STLMLC STLMLC [id number] Co mmon 00:00:00 00:00:00 VISIT [facility] ESTAB PT - [facility]I LEVEL 1 [facility] 2021-10-10 2021-10-10 Phone Only STLMLC STLMLC [id number] Common 00:00:00 00:00:00 Visit for Spir it Est MCR - [facility] 2021-10-01 2021-10-01 (TEL) STLMLC STLMLC [id number] Co mmon 00:00:00 00:00:00 [facility] 2021-09-23 2021-09-23 (TEL) STLMLC STLMLC [id number] Co mmon 00:00:00 00:00:00 [facility] 2021-09-22 2021-09-22 (TEL) STLMLC STLMLC [id number] Co mmon 00:00:00 00:00:00 [facility] 2021-09-22 2021-09-22 OFFICE STLMLC STLMLC [id number] Co mmon 00:00:00 00:00:00 VISIT [facility] ESTAB PT - [facility]I LEVEL 1 [facility] 2021-09-19 2021-09-19 Outpatient DMG DMG [id number] [facility] 03:36:00 03:36:00 [id number] [facility] 2021-08-15 2021-08-15 (TEL) STLMLC STLMLC [id number] Co mmon 00:00:00 00:00:00 [facility] 2021-08-12 2021-08-12 (TEL) STLMLC STLMLC [id number] Co mmon 00:00:00 00:00:00 [facility] 2021-08-01 2021-08-01 (TEL) STLMLC STLMLC [id number] Co mmon 00:00:00 00:00:00 [facility] 2021-08-01 2021-08-01 (EST. STLMLC STLMLC [id number] Co mmon 00:00:00 00:00:00 VIDEO) EST Spi rit VIRTUAL - CHI VIDEO [facility] 2021-07-31 2021-07-31 (TEL) STLMLC STLMLC [id number] Co mmon 00:00:00 00:00:00 [facility] 2021-07-31 2021-07-31 OFFICE STLMLC STLMLC [id number] Co mmon 00:00:00 00:00:00 VISIT EST Spir it PT LEVEL 3 - [facility] 2021-07-30 2021-07-30 (TEL) STLMLC STLMLC [id number] Co mmon 00:00:00 00:00:00 [facility] 2021-07-25 2021-07-25 OFFICE STLMLC STLMLC [id number] Co mmon 00:00:00 00:00:00 VISIT Spirit ESTAB PT - [facility] LEVEL 4 [facility] 2021-07-22 2021-07-22 (TEL) STLMLC STLMLC [id number] Co mmon 00:00:00 00:00:00 [facility] 2021-07-14 2021-07-14 (TEL) STLMLC STLMLC [id number] Co mmon 00:00:00 00:00:00 [facility] 2021-07-12 2021-07-12 (TEL) STLMLC STLMLC [id number] Co mmon 00:00:00 00:00:00 [facility] 2021-07-05 2021-07-05 [place] [facility] [id number] [facility] 09:00:00 09:00:00 [facility] 2021-05-20 2021-05-20 [place] [id number] [facility] 09:01:00 09:01:00 [facility] 2021-05-14 2021-05-14 (PROC) STLMLC STLMLC [id number] Co mmon 00:00:00 00:00:00 Procedure Spir it - [facility] 2021-05-07 2021-05-07 (TEL) STLMLC STLMLC [id number] Co mmon 00:00:00 00:00:00 [facility] 2021-05-07 2021-05-07 OFFICE STLMLC STLMLC [id number] Co mmon 00:00:00 00:00:00 VISIT Spirit ESTAB PT - [facility] LEVEL 4 [facility] 2021-05-06 2021-05-06 (TEL) STLMLC STLMLC [id number] Co mmon 00:00:00 00:00:00 [facility] 2021-04-21 2021-04-21 (TEL) STLMLC STLMLC [id number] Co mmon 00:00:00 00:00:00 [facility] 2021-04-21 2021-04-21 OFFICE STLMLC STLMLC [id number] Co mmon 00:00:00 00:00:00 VISIT EST Spir it PT LEVEL 3 - [facility] 2021-04-18 2021-04-18 (TEL) STLMLC STLMLC [id number] Co mmon 00:00:00 00:00:00 [facility] 2021-04-16 2021-04-16 (TEL) STLMLC STLMLC [id number] Co mmon 00:00:00 00:00:00 [facility] 2021-04-14 2021-04-14 (CONE TENDER) New STLMLC STLMLC [id number] C ommon 00:00:00 00:00:00 Patient [facility] 2021-04-10 2021-04-10 (TEL) STLMLC STLMLC [id number] Co mmon 00:00:00 00:00:00 [facility] 2021-04-03 2021-04-03 (TEL) STLMLC STLMLC [id number] Co mmon 00:00:00 00:00:00 [facility] 2021-03-10 2021-03-10 (TEL) STLMLC STLMLC [id number] Co mmon 00:00:00 00:00:00 [facility] 2021-03-06 2021-03-06 OFFICE STLMLC STLMLC [id number] Co mmon 00:00:00 00:00:00 VISIT [facility] ESTAB PT - [facility] LEVEL 2 [facility] 2021-03-05 2021-03-05 (TEL) STLMLC STLMLC [id number] Co mmon 00:00:00 00:00:00 [facility] 2021-01-27 2021-01-27 OFFICE STLMLC STLMLC [id number] Co mmon 00:00:00 00:00:00 VISIT Spirit ESTAB PT - [facility] LEVEL 4 [facility] 2020-12-25 2020-12-25 OFFICE STLMLC STLMLC [id number] Co mmon 00:00:00 00:00:00 VISIT EST Spir it PT LEVEL 3 - [facility] 2020-12-20 2020-12-20 (TEL) STLMLC STLMLC [id number] Co mmon 00:00:00 00:00:00 [facility] 2020-12-02 2020-12-02 (TEL) STLMLC STLMLC [id number] Co mmon 00:00:00 00:00:00 [facility] 2020-12-022020-12-02 (TEL) STLMLC STLMLC [id number] Co mmon 00:00:00 00:00:00 [facility] 2020-12-02 2020-12-02 OFFICE STLMLC STLMLC [id number] Co mmon 00:00:00 00:00:00 VISIT EST Spir it PT LEVEL 3 - [facility] 2020-10-16 2020-10-16 OFFICE STLMLC STLMLC [id number] Co mmon 00:00:00 00:00:00 VISIT [facility] PT - [facility] LEVEL 4 [facility] 2020-10-16 2020-10-16 OFFICE STLMLC STLMLC [id number] Co mmon 00:00:00 00:00:00 VISIT [facility] PT - [facility] LEVEL 4 [facility] 2020-10-10 2020-10-10 (TEL) STLMLC STLMLC [id number] Co mmon 00:00:00 00:00:00 [facility] 2020-09-25 2020-09-25 Outpatient STLMLC STLMLC [id number] Common 00:00:00 00:00:00 [facility] 2020-09-20 2020-09-20 Outpatient STLMLC STLMLC [id number] Common 00:00:00 00:00:00 [facility] 2020-09-04 2020-09-04 Outpatient STLMLC STLMLC [id number] Common 00:00:00 00:00:00 [facility] 2020-09-04 2020-09-04 Outpatient STLMLC STLMLC [id number] Common 00:00:00 00:00:00 [facility] 2020-09-04 2020-09-04 Outpatient STLMLC STLMLC [id number] Common 00:00:00 00:00:00 [facility] 2020-09-03 2020-09-03 Outpatient STLMLC STLMLC [id number] Common 00:00:00 00:00:00 [facility] 2020-08-27 2020-08-27 Outpatient STLMLC STLMLC [id number] Common 00:00:00 00:00:00 [facility] 2020-08-15 2020-08-15 Outpatient STLMLC STLMLC [id number] Common 00:00:00 00:00:00 [facility] 2020-08-14 2020-08-14 Outpatient STLMLC STLMLC [id number] Common 00:00:00 00:00:00 [facility] 2020-08-01 2020-08-01 Outpatient STLMLC STLMLC [id number] Common 00:00:00 00:00:00 [facility] 2020-07-24 2020-07-24 Outpatient STLMLC STLMLC [id number] Common 00:00:00 00:00:00 [facility] 2020-07-16 2020-07-16 Outpatient STLMLC STLMLC [id number] Common 00:00:00 00:00:00 [facility] 2020-07-16 2020-07-16 Outpatient STLMLC STLMLC [id number] Common 00:00:00 00:00:00 [facility] 2020-07-10 2020-07-10 Outpatient STLMLC STLMLC [id number] Common 00:00:00 00:00:00 [facility] 2020-07-05 2020-07-05 Outpatient STLMLC STLMLC [id number] Common 00:00:00 00:00:00 [facility] 2020-06-27 2020-06-27 Outpatient STLMLC STLMLC [id number] Common 00:00:00 00:00:00 [facility] 2020-06-24 2020-06-24 Outpatient STLMLC STLMLC [id number] Common 00:00:00 00:00:00 [facility] 2020-06-19 2020-06-19 Outpatient STLMLC STLMLC [id number] Common 00:00:00 00:00:00 [facility] 2020-05-20 2020-05-20 Outpatient STLMLC STLMLC [id number] Common 00:00:00 00:00:00 [facility] 2020-05-14 2020-05-14 Outpatient STLMLC STLMLC [id number] Common 00:00:00 00:00:00 [facility] 2020-04-19 2020-04-19 Outpatient STLMLC STLMLC [id number] Common 00:00:00 00:00:00 [facility] 2020-04-16 2020-04-16 Outpatient STLMLC STLMLC [id number] Common 00:00:00 00:00:00 [facility] 2019-09-29 2019-09-29 [id number] Common 13:46:00 13:46:[address] [facility] [address] [facility] 2019-09-28 2019-09-28 [facility] [id number] Common 11:00:00 11:00:[address] [facility] 2019-09-28 2019-09-28 [facility] [id number] Common 10:30:00 10:30:[address] [facility] 2019-07-14 2019-07-14 [facility] [id number] Common 10:31:00 10:31:[address] [facility] 2018-12-15 2018-12-15 Out[facility] [id number] Common 16:00:00 16:00:[address] [facility] 2018-09-14 2018-09-14 [facility] [id number] Common 15:45:00 15:45:[address] [facility] 2018-08-30 2018-08-30 [facility] [id number] Common 08:00:00 08:00:[address] [facility] 2018-06-10 2018-06-10 [facility] [id number] Common 16:46:00 16:46:[address] [facility] 2018-06-09 2018-06-09 [facility] [id number] Common 09:18:00 09:18:00 [address] [facility] [address] [facility] 2018-06-07 2018-06-07 Out[facility] [id number] Common 15:00:00 15:00:[address] [facility] 2018-04-25 2018-04-25 [facility] [id number] Common 09:15:00 09:15:[address] [facility] 2018-03-09 2018-03-09 [facility] [id number] Common 16:00:00 16:00:[address] [facility] 2018-03-03 2018-03-03 [facility] [id number] Common 08:52:00 08:52:[address] [facility] 2017-11-30 2017-11-30 [facility] [id number] Common 15:00:00 15:00:[address] [facility] 2017-09-30 2017-09-30 [facility] [id number] Common 15:00:00 15:00:00 t Specialty/U Sp nahed Specialty rology - [facility] 2017-09-29 2017-09-29 [facility] [id number] Common 10:13:00 10:13:[address] [facility] 2017-09-28 2017-09-28 [facility] [id number] Common 14:00:00 14:00:[address] [facility] Results Test Description Test Time Test Comments Results Result Comments Source PHOSPHORUS 2018-11-11 05:54:00 Test Item Value Reference Range Interpretation Comme nts PHOSPHORUS (BEAKER) (test code = 604) 3.6 mg/dL 2.3-4.7 [id number] 05:54:00 Test Item Value Reference Range Interpretation Comments MAGNESIUM (BEAKER) (test code = 1.8 mg/dL 1.6-2.6 627) BASIC METABOLIC [id number] 05:54:00 Test Item Value Reference Range Interpretation [...] APPLICABLE FOR DIALYSIS PATIEN TS. HEPATIC FUNCTION [id number] 05:54:00 Test Item Value Reference Range Interpretation [...] 6-55 347) CBC W/PLT COUNT & AUTO [id number] 05:43:00 Test Item Value Reference Range Interpretation [...] PERCENT (BEAKER) (test code = 2801) PROTHROMBIN [id number] 05:42:00 Test Item Value Reference Range Interpretation [...] 2.5-3.5 for patients wiht mechanical heart valves.HEMOGLOBIN [id number] 07:50:00 Test Item Value Reference Range Interpretation Comments HEMOGLOBIN A1C (BEAKER) (test code = 7.1 % 4.3-6.1 H 368) [id number] 04:53:00 Test Item Value Reference Range Interpretation Comments PHOSPHORUS (BEAKER) (test code = 3.2 mg/dL 2.3-4.7 604) [id number] 04:53:00 Test Item Value Reference Range Interpretation Comments MAGNESIUM (BEAKER) (test code = 1.8 mg/dL 1.6-2.6 627) BASIC METABOLIC [id number] 04:53:00 Test Item Value Reference Range Interpretation [...] APPLICABLE FOR DIALYSIS PATIEN TS. HEPATIC FUNCTION [id number] 04:53:00 Test Item Value Reference Range Interpretation [...] code = 12 U/L 6-55 347) PROTHROMBIN [id number] 04:19:00 Test Item Value Reference Range Interpretation [...] mechanical heart valves.CBC W/PLT COUNT & AUTO [id number] 04:14:00 Test Item Value Reference Range Interpretation [...] 0-1 PERCENT (BEAKER) (test code = 2801) [id number] 14:44:00 Test Item Value Reference Range Interpretation Comments LIPASE (BEAKER) (test code = 749) 972 U/L 8-78 H [id number] 13:06:00 Test Item Value Reference Range Interpretation Comments PHOSPHORUS (BEAKER) (test code = 3.3 mg/dL 2.3-4.7 604) [id number] 13:06:00 Test Item Value Reference Range Interpretation Comments MAGNESIUM (BEAKER) (test code = 2.0 mg/dL 1.6-2.6 627) BASIC METABOLIC [id number] 13:06:00 Test Item Value Reference Range Interpretation [...] NOT APPLICABLE FOR DIALYSIS PATIEN TS. LIPID [id number] 13:06:00 Test Item Value Reference Range Interpretation [...] 130-159 High 160-189 Very High >=190HEPATIC FUNCTION [id number] 13:06:00 Test Item Value Reference Range Interpretation [...] 6-55 347) CBC W/PLT COUNT & AUTO [id number] 12:46:00 Test Item Value Reference Range Interpretation [...] PERCENT (BEAKER) (test code = 2801) PROTHROMBIN [id number] 12:39:00 Test Item Value Reference Range Interpretation [...]
[2022-05-14] MEDS ORDERED: SUCRALFATE 1 GM TABLET ONE (02:07)
[2022-05-14] MEDS ORDERED: PANTOPRAZOLE 40 MG INJ ONE (02:07)
[2022-05-14] MEDS ORDERED: MAGNES/ALUMIN/SIMET 30ML UCUP ONE (03:02)
[2022-05-14 03:23] LABS: Urine Blood Trace-intact (Negative); Urine Glucose 2+ (Negative); Urine Protein Negative (Negative); Urine Specific Gravity 1.015 (1.005-1.030)
[2022-05-14 04:19] LABS: Absolute Lymphocytes (CBC) 1.7 K/uL (0.7-4.9); Lymphocytes % 28.7 % (15.3-44.8); RBC Red Blood Cell Count 4.34 M/uL (3.86-4.86)
[2022-05-14] MEDS ORDERED: ONDANSETRON 4 MG/2 ML VIAL ONE (04:20)
[2022-05-14 04:31] LABS: Albumin 3.1 g/dL (3.4-5.0); Bilirubin Total 0.4 mg/dL (0.2-1.0); Potassium 3.3 mmol/L (3.5-5.1); Protein, Total 6.7 g/dL (6.4-8.2); Troponin High Sensitivity 15.8 pg/mL (<58.9)
[2022-05-14 05:54] LABS: Urine Bacteria <20 /HPF (<20); Urine Mucus Slight /HPF (None Seen); Urine RBC <5 /HPF (None Seen)
[2022-05-14 07:06] VITALS: BP 144/103; TEMP 98.1; O2SAT 95
--- NOTE | 2022-05-14 15:01 | RAD REPORT ---
EXAM DESCRIPTION: CT - Abdomen Pelvis W Contrast - 05/14/2022 5:58 am CLINICAL HISTORY: Abd pain, nausea, diarrhea, hx of pancreatitis COMPARISON: 03/29/2022 TECHNIQUE: CT of the abdomen and pelvis performed following IV administration of iodinated contras t. This exam was performed according to our departmental dose-optimization program, which includes au tomated exposure control, adjustment of the mA and/or kV according to patient size and/or use of iter ative reconstruction technique. FINDINGS: Lung Bases: The visualized lung bases are clear. Bones: Levoconvex curvature of the lumbar spine. Osteoarthritic changes hips. Multilevel endplate spo ndylosis and facet arthropathy of the visualized spine. Abdomen: Liver: The liver has normal size and decreased density. Pneumobilia again identified. Gallbladder: Prior cholecystectomy. Spleen, Pancreas, and Adrenal Glands: Atrophy body and tail of pancreas again identified. Minimal p eripancreatic haziness. Spleen and adrenal glands are unremarkable. Kidneys: No hydronephrosis or obstructing calculus. Vasculature: Aortoiliac atherosclerosis. IVC is unremarkable. The portal vein is patent. The proxim al visceral and renal arteries are patent. Stomach: Large hiatal hernia. Other: No free intraperitoneal air. No free fluid or lymphadenopathy. Pelvis: Bladder: Wall thickening of the urinary bladder. Bowel: No dilated loops of large or small bowel. Scattered reticula colon. Appendix: Not well identified. Pelvis: Prior hysterectomy. IMPRESSION: 1. Minimal peripancreatic haziness. This could be seen with acute pancreatitis. Correl ation with serum lipase recommended. 2. Wall thickening of the urinary bladder. This could be seen with cystitis. 3. Hepatic steatosis. 4. Large hiatal hernia. 5. Diverticulosis without evidence of acute diverticulitis. Electronically signed by: Mikel Pulido 05/14/2022 5:52 AM LUMBER RACKER Due to temporary technical issues with the PACS/Fluency reporting system, reports are being signed by the in house radiologists without review as a courtesy to insure prompt reporting. The interpreting radiologist is fully responsible for the content of the report.
--- NOTE | 2022-05-14 16:20 | EKG ---
Test Date: 2022-05-14 Test Time: 03:07:10 [employer] Services Coordinator: DIA MEASUREMENT RESULTS: Intervals: Rate: 70 NC: 162 QRSD: 146 QT: 456 QTc: 492 [place]: P: 66 NC: 162 QRS: -25 T: 127 INTERPRETIVE STATEMENTS: Normal sinus rhythm Left bundle branch block Abnormal ECG Compared to ECG 03/29/2022 00:02:10 No significant changes Electronically Signed On 05-14-22 16:19:15 REHABILITATOR by Adán Bennett
--- NOTE | 2022-05-29 15:34 | EDPHYS ---
Physician Documentation [facility] Name: Isadora Bettencourt Age: 76 yrs Sex: Female : 1945 Arrival Date: 05/14/2022 Time: 01:44 Bed 10 Private MD: ED Physician Pankaj Russ HPI: 05/14 01:53 This 76 yrs old Female presents to ER via EMS with complaints of Abdominal bs3 Pain. 01:53 76-year-old history of anxiety, hypertension, kidney stones, pancreatitis reportedly bs3 chronic pancreatitis with unknown etiology prior lipase on chart review has always been normal unclear if patient has had CT imaging consistent with pancreatitis presents with abdominal pain which she feels like is similar to her prior episodes of pancreatitis she denies fevers chills chest pain shortness of breath or anything else bothering her. Historical: - Allergies: 01:48 No Known Allergies; bb - PMHx: 01:48 Anxiety; Hypertension; Kidney stones; Pancreatitis; bb - Immunization history:: vaccinated x 1. - Social history:: Smoking status: Patient denies any tobacco usage or history of. Patient/guardian denies using alcohol. ROS: 01:56 Constitutional: Negative for fever, chills bs3 01:56 All other systems are negative. Exam: 01:56 Constitutional: This is a well developed, well nourished patient who is awake, alert, bs3 and in no acute distress. Head/Face: Normocephalic, atraumatic. Eyes: Pupils equal round and reactive to light, extra-ocular motions intact. Lids and lashes normal. Neck: Trachea midline, no thyromegaly, no neck stiffness Chest/axilla: Normal chest wall appearance and motion. Nontender with no deformity. No lesions are appreciated. Cardiovascular: Regular rate and rhythm with a normal S1 and S2. symmetric pulses in upper extremities Respiratory: Lungs have equal breath sounds bilaterally, clear to auscultation, no respiratory distress Abdomen/GI: Soft, non-tender, no rebound or guarding MS/ Extremity: Pulses equal, no cyanosis. Neurovascular intact. Full, normal range of motion. Neuro: Awake and alert, GCS 15, oriented to person, place, time, and situation. Cranial nerves II-XII grossly intact. Motor strength 5/5 in all extremities. Sensory grossly intact. Psych: Awake, alert, with orientation to person, place and time. Behavior, mood, and affect are within normal limits. 03:11 nsr 70 lbbb neg sgarbossa qtc 492 as inter by myself bs3 Vital Signs: 01:44 BP 179 / 79; Pulse 71; Resp 18 S; Temp 98.3(O); Pulse Ox 98% on R/A; Weight 74.84 kg bb (R); Height 5 ft. 1 in. (R); Pain 10/10; 03:15 BP 182 / 77; Pulse 67; Resp 18 S; Pulse Ox 93% on R/A; bb 06:00 BP 180 / 90; Pulse 80; Resp 16 S; Pulse Ox 97% on R/A; bb 06:50 BP 144 / 103; Pulse 70; Resp 16 S; Temp 98.1(O); Pulse Ox 95% on R/A; bb 01:44 Body Mass Index 31.18 (74.84 kg, 154.94 cm) bb 01:44 Pain Scale: Adult bb MDM: 01:47 Patient medically screened. bs3 01:56 Differential diagnosis: AAA, acute coronary syndrome, appendicitis, bowel obstruction, bs3 cholecystitis, Cholelithiasis, Hepatitis, Herpes Zoster, Mesenteric ischemia or infarction, myocardia ischemia or infarction, non-specific abd pain, pancreatitis, Peptic Ulcer Disease. Data reviewed: vital signs, nurses notes, old medical records, recent admission. Consideration of Admission/Observation Patient was admitted/placed on observation. 04:51 ED course: Labs notable for elevated glucose but no anion gap, prior urine culture was bs3 E. coli sensitive to cephalosporin anticipate discharge home pending CT. 06:04 ED course: CT consistent with possible very mild pancreatitis as well as cystitis her bs3 last urinalysis grew E. coli which was resistant to levofloxacin which was prescribed we will consider switching treatment patient is tolerating oral intake and her pancreatitis is chronic we will discuss with her regarding inpatient vs outpatient workup. 06:29 ED course: Discussed with patient and she did not require significant pain medicine bs3 here her CT was consistent with possible mild pancreatitis although she had a CT with something very similar in the past her labs were otherwise normal and she was feeling better on reassessment we had a shared decision-making conversation and patient wanted to try to go home we will switch antibiotic given recent urine culture, return prec given. 05/14 01:53 Order name: CBC with Diff; Complete Time: 04:36 bs3 05/14 01:53 Order name: Comprehensive Metabolic Panel; Complete Time: 04:36 bs3 05/14 01:53 Order name: Lipase; Complete Time: 04:36 bs3 05/14 01:53 Order name: Troponin High Sensitivity; Complete Time: 04:36 bs3 05/14 03:23 Order name: Urine Dipstick-Ancillary; Complete Time: 03:32 EDMS 05/14 05:31 Order name: UMIC; Complete Time: 06:03 bs3 05/14 01:56 Order name: CT Abd/Pelvis - IV Contrast Only bs3 05/14 01:53 Order name: EKG - Nurse/Tech; Complete Time: 03:09 bs3 05/14 01:55 Order name: Urine Dipstick-Ancillary (obtain specimen); Complete Time: 03:16 bs3 Administered Medications: 02:30 Drug: Sucralfate PO 1 grams Route: PO; bb 04:14 Follow up: Response: No adverse reaction bb 02:33 Drug: Pantoprazole IVP 40 mg Route: IVP; Site: right forearm; bb 04:14 Follow up: Response: No adverse reaction bb 03:09 Drug: Alum-Mag Hydroxide-Simeth PO Suspension (200 mg-200 mg-20 mg/5 mL) 30 ml Route: bb PO; 04:14 Follow up: Response: No adverse reaction bb 04:18 Drug: Ondansetron IVP 4 mg Route: IVP; Site: right forearm; bb 06:52 Follow up: Response: No adverse reaction bb Disposition Summary: 05/14/22 06:31 Discharge Ordered Location: Home bs3 Problem: new bs3 Symptoms: have improved bs3 Condition: Fair bs3 Diagnosis - Acute cystitis bs3 - Hyperglycemia, unspecified bs3 - Other chronic pancreatitis bs3 Followup: bs3 - With: Private Physician - When: 48 Hours - Reason: Re-evaluation by your physician Discharge Instructions: - Discharge Summary Sheet bs3 - Hyperglycemia bs3 - Acute Pancreatitis, None-pb-Gsdt bs3 - Urinary Tract Infection, Adult, Cvup-hz-Ylir bs3 Forms: - Medication Reconciliation Form bs3 - Thank You Letter bs3 - Antibiotic Education bs3 - Prescription Opioid Use bs3 Prescriptions: - cefdinir 300 mg Oral capsule - take 1 capsule by ORAL route 2 times per day for 7 days; 14 capsule; Refills: bs3 0, Product Selection Permitted - ondansetron 8 mg Oral tablet,disintegrating - take 1 tablet by ORAL route every 8 hours; 12 tablet; Refills: 0, Product bs3 Selection Permitted Signatures: Dispatcher [employer] Mari Lujan RN RN Pankaj Mata MD MD bs3 Corrections: (The following items were deleted from the chart) 02:05 01:53 76-year-old history of anxiety, hypertension, kidney stones, pancreatitis bs3 reportedly chronic pancreatitis with unknown etiology prior lipase on chart review has always been normal unclear if patient has had CT imaging consistent with pancreatitis presents with abdominal pain which she feels like is similar to her prior episodes of pancreatitis she denies fevers chills chest pain shortness of breath or anything else bothering her. bs3 02:31 01:55 Abdomen Pelvis Wo Con+CT.RAD.BRZ ordered. EDMS EDMS
--- NOTE | 2022-05-29 15:34 | ER ---
Nurse's Notes [facility] Name: Isadora Bettencourt Age: 76 yrs Sex: Female : 1945 Arrival Date: 05/14/2022 Time: 01:44 Bed 10 Private MD: Diagnosis: Acute cystitis;Hyperglycemia, unspecified;Other chronic pancreatitis Presentation: 05/14 01:44 Chief complaint: EMS states: they were toned out for report of pt with abdominal pain, bb nausea, and diarrhea she has chronic pancreatitis and thinks this is a flare-up. Coronavirus screen: At this time, the client does not indicate any symptoms associated with coronavirus-19. Ebola Screen: No symptoms or risks identified at this time. Initial Sepsis Screen: Does the patient meet any 2 criteria? No. Patient's initial sepsis screen is negative. Does the patient have a suspected source of infection? No. Patient's initial sepsis screen is negative. Risk Assessment: Do you want to hurt yourself or someone else? Patient reports no desire to harm self or others. Onset of symptoms was May 14, 2022. 01:44 Method Of Arrival: EMS: [facility] 01:44 Acuity: FRANDY 3 bb 01:51 Care prior to arrival: Medication(s) given: Normal saline infusion, toradol 15 mg, bb Zofran 4 mg IV initiated. 22 GA, in the right forearm. Triage Assessment: 01:48 General: Appears in no apparent distress. uncomfortable, Behavior is calm, cooperative. bb Pain: Complains of pain in abdomen Pain currently is 10 out of 10 on a pain scale. Neuro: Level of Consciousness is awake, alert, obeys commands, Oriented to person, place, time, situation. Cardiovascular: Capillary refill < 3 seconds Patient's skin is warm and dry. Respiratory: Respiratory effort is unlabored. GI: Reports lower abdominal pain, upper abdominal pain, diarrhea. Derm: Skin is pink, warm \T\ dry. Musculoskeletal: Circulation, motion, and sensation intact. Historical: - Allergies: 01:48 No Known Allergies; bb - PMHx: 01:48 Anxiety; Hypertension; Kidney stones; Pancreatitis; bb - Immunization history:: vaccinated x 1. - Social history:: Smoking status: Patient denies any tobacco usage or history of. Patient/guardian denies using alcohol. Screenin:10 [facility] ED Fall Risk Assessment (Adult) History of falling in the last 3 months, bb including since admission. Abuse screen: Denies threats or abuse. Nutritional screening: No deficits noted. Tuberculosis screening: No symptoms or risk factors identified. Assessment: 02:10 Reassessment: No changes from previously documented assessment. Patient is alert, bb oriented x 3, equal unlabored respirations, skin warm/dry/pink. 03:15 Reassessment: Patient is alert, oriented x 3, equal unlabored respirations, skin bb warm/dry/pink. awaiting diagnostic results. 04:22 Reassessment: Patient is alert, oriented x 3, equal unlabored respirations, skin bb warm/dry/pink. pt medicated for nausea see MAR awaiting diagnostic results. 05:59 Reassessment: Patient is alert, oriented x 3, equal unlabored respirations, skin bb warm/dry/pink. assisted pt to bathroom via wheelchair pt awaiting CT scan results, IV site without erythema or edema. 06:49 Reassessment: Patient is alert, oriented x 3, equal unlabored respirations, skin bb warm/dry/pink. pt verbalized understanding of and agrees to plan of care discharge instructions given pt assisted to exit via wheelchair. Vital Signs: 01:44 BP 179 / 79; Pulse 71; Resp 18 S; Temp 98.3(O); Pulse Ox 98% on R/A; Weight 74.84 kg bb (R); Height 5 ft. 1 in. (R); Pain 10/10; 03:15 BP 182 / 77; Pulse 67; Resp 18 S; Pulse Ox 93% on R/A; bb 06:00 BP 180 / 90; Pulse 80; Resp 16 S; Pulse Ox 97% on R/A; bb 06:50 BP 144 / 103; Pulse 70; Resp 16 S; Temp 98.1(O); Pulse Ox 95% on R/A; bb 01:44 Body Mass Index 31.18 (74.84 kg, 154.94 cm) bb 01:44 Pain Scale: Adult bb ED Course: 01:44 Patient arrived in ED. bb 01:48 Triage completed. bb 01:48 Arm band placed on. bb 01:49 Pankaj Russ MD is Attending Physician. bs3 02:10 Patient has correct armband on for positive identification. Bed in low position. Call bb light in reach. Side rails up X 1. 02:10 Maintain EMS IV. Dressing intact. Site clean \T\ dry. Gauge \T\ site: 22g R FA. bb 02:41 Mari Greer, RN is Primary Nurse. bb 05:35 CT Abd/Pelvis - IV Contrast Only In Process Unspecified. EDMS 06:51 No provider procedures requiring assistance completed. IV discontinued, intact, bb bleeding controlled, No redness/swelling at site. Pressure dressing applied. Administered Medications: 02:30 Drug: Sucralfate PO 1 grams Route: PO; bb 04:14 Follow up: Response: No adverse reaction bb 02:33 Drug: Pantoprazole IVP 40 mg Route: IVP; Site: right forearm; bb 04:14 Follow up: Response: No adverse reaction bb 03:09 Drug: Alum-Mag Hydroxide-Simeth PO Suspension (200 mg-200 mg-20 mg/5 mL) 30 ml Route: bb PO; 04:14 Follow up: Response: No adverse reaction bb 04:18 Drug: Ondansetron IVP 4 mg Route: IVP; Site: right forearm; bb 06:52 Follow up: Response: No adverse reaction bb Medication: 02:10 VIS not applicable for this client. bb Outcome: 06:31 Discharge ordered by . bs3 06:51 Discharged to home via wheelchair. bb 06:51 Condition: stable 06:51 Discharge instructions given to patient, Instructed on discharge instructions, follow up and referral plans. medication usage, Demonstrated understanding of instructions, follow-up care, medications, Prescriptions given X 2. 06:52 Patient left the ED. bb Signatures: Dispatcher [employer] EDMI Mari Greer, SHARMAINE RN Pankaj Mata MD MD bs3
== END 2022-05-14 06:52 | disposition home or self-care (01) ==
LOC: ER 01:38
DX: N30.00 Acute cystitis without hematuria (principal); R73.9 Hyperglycemia, unspecified; K86.1 Other chronic pancreatitis; I10 Essential (primary) hypertension; Z87.442 Personal history of urinary calculi
CPT/HCPCS: 93005; 85025; 36415; 84484; 83690; 80053; 74177; 96375; 96374; 99284; Q9967; C9113; J2405; 81003; 81015

== ENCOUNTER 2022-08-10 11:02 | Emergency (ER) | payer MEDICARE ==
--- OUTSIDE RECORDS SUMMARY | 2022-08-10 11:12 | XMS REPORT | Continuity of Care Document ---
:1945 Author Organization [facility] t Address [address] [place] [address] Care Team Providers Name Role Phone Dmitry Powell DO Primary Care Physician [phone] Dmitry Powell Attending Clinician Unavailable Ogdestiny_B Attending Clinician Unavailable GAY QIU Attending Clinician Unavailable Campos Admitting Clinician Unavailable GAY QIU Admitting Clinician Unavailable Payers Payer Name Policy Type Policy Effective Date Expiration Date Sour ce Number MEDICARE A B [id number] 2012 00:00:00 [employer] [id number] (MEDICARE 00:00:00 REPLACEMENT HMO) [employer] [id number] Common Spi rit - [facility] [employer] C1 [id number] Common Spi rit - [facility] [facility] C1 [id number] Common Spi rit - [facility] [facility] C1 [id number] Common Spi rit - [facility]I [facility] [facility] [id number] Common Spi rit - [facility]I [facility] [employer] [facility] C1 [id number] Common Spi rit - CHI [facility] [employer] [id number] Common Spi rit - [facility]I [facility] [employer] C1 [id number] Common Spi rit - [facility] [employer] C1 [id number] Common Spi rit [facility] Problems Condition Condition Condition Status Onset Resolution [...] stricture 11-09 Luke s 00:00: Medical 00 [place] Mixed Depression Problem Commo n anxiety with Spirit and anxiety - CHI depressive [facility] Hiatal Hiatal Problem Common hernia hernia [facility] Benign Benign Problem Common essential essential Spir it hypertensi hypertensi - CHI on on [facility] Mixed Hyperlipid Problem Commo n hyperlipid emia, Spirit emia mixed CHI [facility] Ulcer of Ulcer of Problem Commo n esophagus esophagus Spir it without - CHI bleeding [facility] [id number] Cystocele Problem Com mon and Spirit rectocele - CHI with [facility] uterovagin Medica l al Center prolapse [id number] Urinary Problem Commo n incontinen Spirit ce, - CHI unspecifie [facility] Kidney Left Problem Common stone nephrolith [facility] iasis [facility] Vitamin D Vitamin D Problem Com mon deficiency deficiency Sp nahed [facility] [id number] Chronic Problem Common gastritis Spirit without - [facility] type [id number] Insomnia, Problem Com mon unspecifie Spirit d type CHI [facility] [id number] Chronic Problem Commo n GERD Spirit [facility] [id number] Fatigue, Problem Commo n unspecifie Spirit d type [facility]I [facility] [id number] Peripheral Problem Com mon polyneurop Spirit athy [facility] [id number] Nocturnal Problem Commo n enuresis [facility] [id number] Gross Problem Common hematuria Spirit [facility] [id number] Stress Problem Common incontinen Spirit ce due to - CHI pelvic 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 stent Medical [place] [id number] Type 2 [place] [id number] diabetes Spirit mellitus - CHI with other diabetic [facility] kidney Medical complicati Center on [id number] Incontinen Problem Com mon ce of Spirit feces, - CHI unspecifie [facility] incontinen Medica l ce type Center [id number] Cystitis Problem Commo n Spirit - CHI [facility] [id number] Bladder Problem Commo n spasms Spirit [facility] [id number] Lower Problem Common urinary Spirit tract - CHI symptoms ([facility] [id number] Incomplete Problem Co mmon emptying Spirit of bladder - [facility] [id number] [place], [place] [address] joint, Spirit knee, - CHI right [facility] [id number] Pain, Problem Commo n [id number] joint, Spirit ankle, - CHI right [facility] [id number] Detrusor Problem Comm on instabilit Spirit y - [facility]I [facility] [id number] Vulvovagin Problem Com mon itis Spirit - [facility] [id number] Pelvic Problem Common pain Spirit - [facility] [id number] Urge Problem Common incontinen Spirit ce - [facility]I [facility] [id number] Chronic Problem Commo n recurrent Spirit pancreatit - CHI is [facility] [id number] Primary Problem 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 itis of - CHI right knee [facility] Chronic Other Problem Common pancreatit chronic Spiri t is pancreatit - CHI is [facility] Disorder Bladder Problem Common of urinary disorder, Spi rit bladder unspecifie - [facility] d [facility] 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 Spirit n of the dysfunctio - CH I urinary n of St bladder bladder, [facility] unspecifie Medica l d [place] [id number] Acute Problem Common vaginitis [facility] Allergies, Adverse Reactions, Alerts Allergy Allergy Status Severity Reaction(s) Onset Inactive Treating Comm ents Source Name Type Date Date Clinician NO KNOWN Allergy Active [facility] Social History Social Habit Start Date Stop Date Quantity Comments Source History [facility] Alcohol Comment Medical C enter History of Tobacco Common Spirit - Use [facility] History [facility] History [facility] Alcohol Binge Medical Carl ter Tobacco use and 2018-11-09 2018-11-[address] [facility] exposure 00:00:00 00:00:00 non-user [facility] Center Alcohol intake 2018-11-09 2018-11-09 Current [facility] St Cheyanne es 00:00:00 00:00:00 non-drinker of Medical Ce nter alcohol (finding) History NDOH 2018-11-09 2018-11-[address] [facility] Alcohol Frequency 00:00:00 00:00:00 [facility] Sex [birth year] [facility] kes 00:00:00 00:00:00 [facility] Center Smoking Status Start Date Stop Date Source Unknown if ever smoked Common Sp nahed - [facility] Ce nter Never Smoker Common Spirit - [facility] nter Ex-smoker 2018-11-09 00:00:00 2018-11-09 00:00:00 [facility] Medications Ordered Filled Start Stop [...] TID Cephalexin 500 MG 500 MG 0-18 10-23 le} 500 MG 00:00: 00:00 00 :00 [...] MG 00:00: dtime} MG 00 Amitriptyli Amitriptyli 2022-0 No 1{table QD Amitriptyl ne HCl 75 [...] Com 07-31 Spirit 00:00: - CHI 00 [facility] Kenalog Kenalog 2022-0 No 40mg Common (Triamcinol (Triamcinol 5-26 S pirit one) one) 00:00: - [facility]I [facility] Lidocaine Lidocaine 2022-0 No 10mg Com 07-31 Spirit 00:00: - CHI 00 [facility] Kenalog Kenalog 2022-0 No 40mg Common (Triamcinol (Triamcinol 5-26 S pirit one) one) 00:00: - CHI 00 [facility] Lidocaine Lidocaine 2022-0 No 10mg Com 07-31 Spirit 00:00: - [facility] Kenalog Kenalog 2022-0 No 40mg Common (Triamcinol (Triamcinol 5-26 S pirit one) one) 00:00: - CHI 00 [facility] Lidocaine Lidocaine 2022-0 No 10mg Com mon 07-31 Spirit 00:00: - CHI 00 [facility] Kenalog Kenalog 2022-0 No 40mg Common (Triamcinol (Triamcinol 5-26 S pirit one) one) 00:00: - CHI 00 [facility] Lidocaine Lidocaine 2022-0 No 10mg Com mon 07-31 Spirit 00:00: - [facility]I [facility] Kenalog Kenalog 2022-0 No 40mg Common (Triamcinol (Triamcinol 5-26 S pirit one) one) 00:00: - CHI 00 [facility] Lidocaine Lidocaine 2-0 No 10mg Com 07-31 Spirit 00:00: - CHI 00 [facility] Kenalog Kenalog 2-0 No 40mg Common (Triamcinol (Triamcinol 5-26 S pirit one) one) 00:00: - CHI 00 [facility] Lidocaine Lidocaine 2-0 No 10mg Com 07-31 Spirit 00:00: - CHI 00 [facility] Kenalog Kenalog 2-0 No 40mg Common (Triamcinol (Triamcinol 5-26 S pirit one) one) 00:00: - CHI 00 [facility] Lidocaine Lidocaine 2-0 No 10mg Com 07-31 Spirit 00:00: - CHI 00 [facility] Kenalog Kenalog 2-0 No 40mg Common (Triamcinol (Triamcinol 5-26 S pirit one) one) 00:00: - [facility]I [facility] Lidocaine Lidocaine 2-0 No 10mg Com 07-31 Spirit 00:00: - CHI 00 [facility] Kenalog Kenalog 2-0 No 40mg Common (Triamcinol (Triamcinol 5-26 S pirit one) one) 00:00: - CHI 00 [facility] Lidocaine Lidocaine 2-0 No 10mg Com 07-31 Spirit 00:00: - [facility]I [facility] Kenalog Kenalog 2-0 No 40mg Common (Triamcinol (Triamcinol 5-26 S pirit one) one) 00:00: - CHI 00 [facility] Lidocaine Lidocaine 2-0 No 10mg Com 07-31 Spirit 00:00: - CHI 00 [facility] Kenalog Kenalog 2-0 No 40mg Common (Triamcinol (Triamcinol 5-26 S pirit one) one) 00:00: - CHI 00 [facility] Lidocaine Lidocaine 2022-0 No 10mg Com 07-31 Spirit 00:00: - CHI 00 [facility] Kenalog Kenalog 2-0 No 40mg Common (Triamcinol (Triamcinol 5-26 S pirit one) one) 00:00: - CHI 00 [facility] Lidocaine Lidocaine 2-0 No 10mg Com 07-31 Spirit 00:00: - CHI 00 [facility] Kenalog Kenalog 2-0 No 40mg Common (Triamcinol (Triamcinol 5-26 S pirit one) one) 00:00: - CHI 00 [facility] Lidocaine Lidocaine 2-0 No 10mg Com 07-31 Spirit 00:00: - CHI 00 [facility] Kenalog Kenalog 2-0 No 40mg Common (Triamcinol (Triamcinol 5-26 S pirit one) one) 00:00: - CHI 00 [facility] Lidocaine Lidocaine 2-0 No 10mg Com 07-31 Spirit 00:00: - CHI 00 [facility] Kenalog Kenalog 2-0 No 40mg Common (Triamcinol (Triamcinol 5-26 S pirit one) one) 00:00: - [facility]I [facility] Lidocaine Lidocaine 2-0 No 10mg Com 07-31 Spirit 00:00: - CHI 00 [facility] Kenalog Kenalog 2-0 No 40mg Common (Triamcinol (Triamcinol 5-26 S pirit one) one) 00:00: - CHI 00 [facility] Lidocaine Lidocaine 2-0 No 10mg Com 07-31 Spirit 00:00: - CHI 00 [facility] Kenalog Kenalog 2-0 No 40mg Common (Triamcinol (Triamcinol 5-26 S pirit one) one) 00:00: - CHI 00 [facility] Lidocaine Lidocaine 2-0 No 10mg Com 07-31 Spirit 00:00: - CHI 00 [facility] Kenalog Kenalog 2-0 No 40mg Common (Triamcinol (Triamcinol 5-26 S pirit one) one) 00:00: - CHI 00 [facility] Lidocaine Lidocaine 2022-0 No 10mg Com 07-31 Spirit 00:00: - CHI 00 [facility] Kenalog Kenalog 2-0 No 40mg Common (Triamcinol (Triamcinol 5-26 S pirit one) one) 00:00: - CHI [facility] amitriptyli amitriptyli 2021-0 No amitriptyl ne 25 [...] ine 25 mg 00:00: 00 Fluconazole Fluconazole 2021- No 1{table QD Fluconazol 100 MG 100 MG 07-17 t} e 100 MG 00:00: 00:00 00 :00 Bactrim DS Bactrim DS 0 2021- No 1{table BID Bactrim DS 800-160 MG 800-160 MG 07-12 t} 800-160 MG 00:00: 00:00 00 :00 Bactrim DS Bactrim DS 2021-0 2021- No 1{table BID Bactrim DS 800-160 MG 800-160 MG 07-12 t} 800-160 MG 00:00: 00:00 00 :00 Uribel 118 Uribel 118 2021-0 2- No 1{capsu BID Uribel 118 MG MG 05-09 le} MG 00:00: 00:00 00 :00 Uribel 118 Uribel 118 2021-0 2- No 1{capsu BID Uribel 118 MG MG 05-09 le} MG 00:00: 00:00 00 :00 Clotrimazol Clotrimazol 2021- No 1{appli BID Clotrimazo e-Betametha e-Betametha 3-02 05-25 cation} le-Betamet sone 1-0.05 sone 1-0.05 00:00: 00:00 hasone % % 00 :00 1-0.05 % Clotrimazol Clotrimazol 2021-2- No 1{appli BID Clotrimazo e-Betametha e-Betametha 3-02 05-25 cation} le-Betamet sone 1-0.05 sone 1-0.05 00:00: 00:00 hasone % % 00 :00 1-0.05 % Clotrimazol Clotrimazol 2- No 1{appli BID Clotrimazo e-Betametha e-Betametha 3-02 05-25 cation} le-Betamet sone 1-0.05 sone 1-0.05 00:00: 00:00 hasone % % 00 :00 1-0.05 % Clotrimazol Clotrimazol 2021-2021- No 1{appli BID Clotrimazo e-Betametha e-Betametha 3-02 05-25 cation} le-Betamet sone 1-0.05 sone 1-0.05 00:00: 00:00 hasone % % 00 :00 1-0.05 % Clotrimazol Clotrimazol 2021-2- No 1{appli BID Clotrimazo e-Betametha e-Betametha 3- 05-25 cation} le-Betamet sone 1-0.05 sone 1-0.05 00:00: 00:00 hasone % % 00 :00 1-0.05 % Clotrimazol Clotrimazol 2021-0 2- No 1{appli BID Clotrimazo e-Betametha e-Betametha [...] pirit e) e) 00:00: - CHI 00 [facility] Rocephin Rocephin 2020- No 1g Commo n (Ceftriaxon (Ceftriaxon 1-22 S pirit e) e) 00:00: - CHI 00 [facility] Rocephin Rocephin 2020- No 1g Commo n (Ceftriaxon (Ceftriaxon 1-22 S pirit e) e) 00:00: - CHI 00 [facility] Rocephin Rocephin 2020- No 1g Commo n (Ceftriaxon (Ceftriaxon 1-22 S pirit e) e) 00:00: - CHI 00 [facility] Rocephin Rocephin 2020-03 No 1g Commo n (Ceftriaxon (Ceftriaxon 1-22 S pirit e) e) 00:00: - CHI 00 [facility] No 1g Commo n (Ceftriaxon (Ceftriaxon 1-22 S pirit e) e) 00:00: - CHI 00 [facility]-03 No 1g Commo n (Ceftriaxon (Ceftriaxon 1-22 S pirit e) e) 00:00: - CHI 00 [facility]03 No 1g Commo n (Ceftriaxon (Ceftriaxon 1-22 S pirit e) e) 00:00: - CHI 00 [facility] 2020-03 No 1g Commo n (Ceftriaxon (Ceftriaxon 1-22 S pirit e) e) 00:00: - CHI 00 [facility] 2020-03 No 1g Commo n (Ceftriaxon (Ceftriaxon 1-22 S pirit e) e) 00:00: - CHI 00 [facility] 2020-03 No 1g Commo n (Ceftriaxon (Ceftriaxon 1-22 S pirit e) e) 00:00: - CHI 00 [facility] 2020-03 No 1g Commo n (Ceftriaxon (Ceftriaxon 1-22 S pirit e) e) 00:00: - CHI 00 [facility] No 1g Commo n (Ceftriaxon (Ceftriaxon 1-22 S pirit e) e) 00:00: - CHI 00 [facility] 2020-03 No 1g Commo n (Ceftriaxon (Ceftriaxon 1-22 S pirit e) e) 00:00: - CHI 00 [facility] 2020[facility] No 1g Commo n (Ceftriaxon (Ceftriaxon 1-22 S pirit e) e) 00:00: - CHI 00 [facility] 2020-03 No 1g Commo n (Ceftriaxon (Ceftriaxon 1-22 S pirit e) e) 00:00: - CHI 00 [facility] 2020-03 No 1g Commo n (Ceftriaxon (Ceftriaxon 1-22 S pirit e) e) 00:00: - CHI 00 [facility] 2020-03 No 1g Commo n (Ceftriaxon (Ceftriaxon 1-22 S pirit e) e) 00:00: - CHI 00 [facility] 2020-03 No 1g Commo n (Ceftriaxon (Ceftriaxon 1-22 S pirit e) e) 00:00: - CHI 00 [facility] 2020-03 No 1g Commo n (Ceftriaxon (Ceftriaxon 1-22 S pirit e) e) 00:00: - CHI 00 [facility] 2020-03 No 1g Commo n (Ceftriaxon (Ceftriaxon 1-22 S pirit e) e) 00:00: - CHI 00 [facility] 2020-03 No 1g Commo n (Ceftriaxon (Ceftriaxon 1-22 S pirit e) e) 00:00: - CHI 00 [facility] 2020-03 No 1g Commo n (Ceftriaxon (Ceftriaxon 1-22 S pirit e) e) 00:00: - CHI 00 [facility] No 1g Commo n (Ceftriaxon (Ceftriaxon 1-22 S pirit e) e) 00:00: - CHI 00 [facility] 2020-03 No 1g Commo n (Ceftriaxon (Ceftriaxon 1-22 S pirit e) e) 00:00: - CHI 00 [facility] 2020-03 No 1g Commo n (Ceftriaxon (Ceftriaxon 1-22 S pirit e) e) 00:00: - CHI 00 [facility] 2020-03 No 1g Commo n (Ceftriaxon (Ceftriaxon 03-29 S pirit e) e) 00:00: - CHI 00 [facility] VESIcare 10 VESIcare 10 2020-032- No 1{table QD VESIcare MG MG 03-29 06-30 t} 10 MG 00:00: 00:00 00 :00 VESIcare 10 VESIcare 10 2020-03 2022- No 1{table QD VESIcare MG MG 03-29 06-30 t} 10 MG 00:00: 00:00 00 :00 VESIcare 10 VESIcare 10 2020-032- No 1{table QD VESIcare MG MG 03-29 06-30 t} 10 MG 00:00: 00:00 00 :00 VESIcare 10 VESIcare 10 2020-03- No 1{table QD VESIcare MG MG 03-29 06-30 t} 10 MG 00:00: 00:00 00 :00 VESIcare 10 VESIcare 10 2020-03- No 1{table QD VESIcare MG MG 03-29-30 t} 10 MG 00:00: 00:00 00 :00 VESIcare 10 VESIcare 10 2020-032- No 1{table QD VESIcare MG MG 03-29-30 t} 10 MG 00:00: 00:00 00 :00 VESIcare 10 VESIcare 10 2020-032- No 1{table QD VESIcare MG MG 03-29 06-30 t} 10 MG 00:00: 00:00 00 :00 VESIcare 10 VESIcare 10 2020-032- No 1{table QD VESIcare MG MG 03-29 06-30 t} 10 MG 00:00: 00:00 00 :00 VESIcare 10 VESIcare 10 2020-032- No 1{table QD VESIcare MG MG 03-29 06-30 t} 10 MG 00:00: 00:00 00 :00 VESIcare 10 VESIcare 10 2020-032- No 1{table QD VESIcare MG MG 03-29 06-30 t} 10 MG 00:00: 00:00 00 :00 VESIcare 10 VESIcare 10 2020-032- No 1{table QD VESIcare MG MG 03-2930 t} 10 MG 00:00: 00:00 00 :00 VESIcare 10 VESIcare 10 2020-032- No 1{table QD VESIcare MG MG 03-2930 t} 10 MG 00:00: 00:00 00 :00 VESIcare 10 VESIcare 10 2020-03 2022- No 1{table QD VESIcare MG MG 03-2930 [...] 1{table QD Oxybutynin Chloride ER Chloride ER 12-02-25 t} Chloride 15 MG 15 MG 00:00: 00:00 ER 15 MG 00 :00 Oxybutynin Oxybutynin 2020- No 1{table QD Oxybutynin Chloride ER Chloride ER 12-02-25 t} Chloride 15 MG 15 MG 00:00: 00:00 ER 15 MG 00 :00 Oxybutynin Oxybutynin 2020- No 1{table QD Oxybutynin Chloride ER Chloride ER 12-02-25 t} Chloride 15 MG 15 MG 00:00: 00:00 ER 15 MG 00 :00 Oxybutynin Oxybutynin 2020- No 1{table QD Oxybutynin Chloride ER Chloride ER 12-02 12-25 t} Chloride 15 MG 15 MG 00:00: 00:00 ER 15 MG 00 :00 Oxybutynin Oxybutynin 2020- No 1{table QD Oxybutynin Chloride ER Chloride ER 12-02-25 t} Chloride 15 MG 15 MG 00:00: [...] Center tablet daily . lipase-prot 2019-0 Yes [id number]{ Take [facility]06 lipase} 36,000 [...] Medic al MG tablet 08 Center pantoprazol 0 Yes 40mg Q.5D Take [address] [facility] 9-06 by mouth [facility] (PROTONIX) 17:24: (two) Medica l 40 MG 08 times Center tablet daily . lipase-prot 2018-0 Yes [id number]{ Take [facility] 9[facility]06 lipase} 36,000 [...] Center tablet daily . lipase-prot 2019-0 Yes [id number]{ Take [facility] lipase} 36,000 [...] Center tablet daily . lipase-prot 2019-0 Yes [id number]{ Take [facility] lipase} 36,000 [...] Center tablet daily . lipase-prot 2019-0 Yes [id number]{ Take [facility] lipase} 36,000 [...] Center tablet daily . lipase-prot 2019-0 Yes [id number]{ Take [facility] 9[facility] lipase} 36,000 [...] Center tablet daily . lipase-prot 2019-0 Yes [id number]{ Take [facility] lipase} 36,000 [...] Center tablet daily . lipase-prot 2019-0 Yes [id number]{ Take [facility] 9[facility] lipase} 36,000 [...] pirit one) one) 00:00: - CHI 00 [facility] Kenalog Kenalog 2019-0 No 40mg Common (Triamcinol (Triamcinol 2-18 S pirit one) one) 00:00: - CHI 00 [facility] Kenalog Kenalog 2019-0 No 40mg Common (Triamcinol (Triamcinol 2-18 S pirit one) one) 00:00: - CHI 00 [facility] Kenalog Kenalog 2019-0 No 40mg Common (Triamcinol (Triamcinol 2-18 S pirit one) one) 00:00: - CHI 00 [facility] Kenalog Kenalog 2019-0 No 40mg Common (Triamcinol (Triamcinol 2-18 S pirit one) one) 00:00: - CHI 00 [facility] Kenalog Kenalog 2019-0 No 40mg Common (Triamcinol (Triamcinol 2-18 S pirit one) one) 00:00: - CHI 00 [facility] Kenalog Kenalog 2019-0 No 40mg Common (Triamcinol (Triamcinol 2-18 S pirit one) one) 00:00: - CHI 00 [facility] Kenalog Kenalog 2019-0 No 40mg Common (Triamcinol (Triamcinol 2-18 S pirit one) one) 00:00: - CHI 00 [facility] Kenalog Kenalog 2019-0 No 40mg Common (Triamcinol (Triamcinol 2-18 S pirit one) one) 00:00: - CHI 00 [facility] Kenalog Kenalog 2019-0 No 40mg Common (Triamcinol (Triamcinol 2-18 S pirit one) one) 00:00: - CHI 00 [facility] Kenalog Kenalog 2019-0 No 40mg Common (Triamcinol (Triamcinol 2-18 S pirit one) one) 00:00: - CHI 00 [facility] Kenalog Kenalog 2019-0 No 40mg Common (Triamcinol (Triamcinol 2-18 S pirit one) one) 00:00: - CHI 00 [facility] Kenalog Kenalog 2019-0 No 40mg Common (Triamcinol (Triamcinol 2-18 S pirit one) one) 00:00: - CHI 00 [facility] Kenregulo Kenalog 2019-0 No 40mg Common (Triamcinol (Triamcinol 2-18 S pirit one) one) 00:00: - CHI 00 [facility] Kenalog Kenalog 2019-0 No 40mg Common (Triamcinol (Triamcinol 2-18 S pirit one) one) 00:00: - CHI 00 [facility] Kenalog Kenalog 2019-0 No 40mg Common (Triamcinol (Triamcinol 2-18 S pirit one) one) 00:00: - CHI 00 [facility] Kenalog Kenalog 2019-0 No 40mg Common (Triamcinol (Triamcinol 2-18 S pirit one) one) 00:00: - CHI 00 [facility] Kenalog Kenalog 2019-0 No 40mg Common (Triamcinol (Triamcinol 2-18 S pirit one) one) 00:00: - CHI 00 [facility] Kenalog Kenalog 2019-0 No 40mg Common (Triamcinol (Triamcinol 2-18 S pirit one) one) 00:00: - CHI 00 [facility] Kenalog Kenalog 2019-0 No 40mg Common (Triamcinol (Triamcinol 2-18 S pirit one) one) 00:00: - [facility] 00 [facility] [facility] Ken[facility] Kenalog 2019-0 No 40mg Common (Triamcinol (Triamcinol 2-18 S pirit one) one) 00:00: - [facility] 00 [facility] Mina Kenalog 2019-0 No 40mg [facility] (Triamcinol (Triamcinol 2-18 S pirit one) one) 00:00: - [facility] 00 [facility] Mina Kenalog 2019-0 No 40mg [facility] (Triamcinol (Triamcinol 2-18 S pirit one) one) 00:00: - [facility] 00 [facility] Mina Kenalog 2019-0 No 40mg [facility] (Triamcinol (Triamcinol 2-18 S pirit one) one) 00:00: - [facility] 00 [facility] Mina Kenalog 2019-0 No 40mg [facility] (Triamcinol (Triamcinol 2-18 S pirit one) one) 00:00: - [facility] 00 [facility] Mina Kenalog 2019-0 No 40mg [facility] (Triamcinol (Triamcinol 2-18 S pirit one) one) 00:00: - [facility] 00 [facility] Mina Kenalog 2019-0 No 40mg [facility] (Triamcinol (Triamcinol 2-18 S pirit one) one) 00:00: - [facility] 00 [facility] Gentamicin Gentamicin 2018-1 No 80mg C ommon 80mg 80mg 0-30 Spirit 00:00: - [facility] 00 [facility] Gentamicin Gentamicin 2018-1 No 80mg C ommon 80mg 80mg 0-30 [facility] 00:00: - [facility] 00 [facility] Gentamicin Gentamicin 2018-1 No 80mg C ommon 80mg 80mg 0-30 [facility] 00:00: - [facility] 00 [facility] Gentamicin Gentamicin 2018-1 No 80mg C ommon 80mg 80mg 0-30 Spirit 00:00: - [facility] 00 [facility] Gentamicin Gentamicin 2018-1 No 80mg C ommon 80mg 80mg 0-30 [facility] 00:00: - [facility] 00 [facility] Gentamicin Gentamicin 2018-1 No 80mg C ommon 80mg 80mg 0-30 [facility] 00:00: - [facility] 00 [facility] Gentamicin Gentamicin 2018-1 No 80mg C ommon 80mg 80mg 0-30 [facility] 00:00: - [facility] 00 [facility] Gentamicin Gentamicin 2017-1 No 80mg C ommon 80mg 80mg 0-30 [facility] 00:00: - [facility] 00 [facility] Gentamicin Gentamicin 2017-1 No 80mg C ommon 80mg 80mg 0-30 [facility] 00:00: - [facility] 00 [facility] Gentamicin Gentamicin 2017-1 No 80mg C ommon 80mg 80mg 0-30 [facility] 00:00: - [facility] 00 [facility] Gentamicin Gentamicin 2017-1 No 80mg C ommon 80mg 80mg 0-30 [facility] 00:00: - [facility] 00 [facility] Gentamicin Gentamicin 2017-1 No 80mg C ommon 80mg 80mg 0-30 [facility] 00:00: - [facility] 00 [facility] Gentamicin Gentamicin 2017- No 80mg C ommon 80mg 80mg 0-30 [facility] 00:00: - [facility] 00 [facility] Gentamicin Gentamicin 2017- No 80mg C ommon 80mg 80mg 0-30 [facility] 00:00: - [facility] Gentamicin Gentamicin 2017- No 80mg C ommon 80mg 80mg 0-30 [facility] 00:00: - [facility] 00 [facility] Gentamicin Gentamicin 2017-1 No 80mg C ommon 80mg 80mg 0-30 [facility] 00:00: - [facility] 00 [facility] Gentamicin Gentamicin 2017- No 80mg C ommon 80mg 80mg 0-30 [facility] 00:00: - [facility] 00 [facility] Gentamicin Gentamicin 2017-1 No 80mg C ommon 80mg 80mg 0-30 [facility] 00:00: - [facility] 00 [facility] Gentamicin Gentamicin 2017-1 No 80mg C ommon 80mg 80mg 0-30 [facility] 00:00: - [facility] 00 [facility] Gentamicin Gentamicin 2017-1 No 80mg C ommon 80mg 80mg 0-30 [facility] 00:00: - [facility] 00 [facility] Gentamicin Gentamicin 2017-1 No 80mg C ommon 80mg 80mg 0-30 [facility] 00:00: - [facility] 00 [facility] Gentamicin Gentamicin 2017-1 No 80mg C ommon 80mg 80mg 0-30 [facility] 00:00: - [facility] 00 [facility] Gentamicin Gentamicin 2017-1 No 80mg C ommon 80mg 80mg 0-30 [facility] 00:00: - [facility] 00 [facility] Gentamicin Gentamicin 2018-1 No 80mg C ommon 80mg 80mg 030 Spirit 00:00: - [facility] Gentamicin Gentamicin 2018-1 No 80mg C ommon 80mg 80mg 0 Spirit 00:00: - [facility] Gentamicin Gentamicin 2018-1 No 80mg C ommon 80mg 80mg 0 [facility] 00:00: - [facility] Gentamicin Gentamicin 2018-1 No 80mg C ommon 80mg 80mg 0 [facility] 00:00: - [facility] Gentamicin Gentamicin 2018-0 No 240mg Common 80mg 80mg 09-30 [facility] 00:00: - [facility] Gentamicin Gentamicin 2018-0 No 240mg [facility] 80mg 80mg 09-30 [facility] 00:00: - [facility] Gentamicin Gentamicin 2018-0 No 240mg Common 80mg 80mg 09-30 [facility] 00:00: - [facility] Gentamicin Gentamicin 2018-0 No 240mg Common 80mg 80mg 09-30 [facility] 00:00: - [facility] Gentamicin Gentamicin 2018-0 No 240mg [facility] 80mg 80mg 09-30 [facility] 00:00: - [facility] Gentamicin Gentamicin 2018-0 No 240mg Common 80mg 80mg 09-30 [facility] 00:00: - [facility] Gentamicin Gentamicin 2018-0 No 240mg Common 80mg 80mg 09-30 [facility] 00:00: - [facility] Gentamicin Gentamicin 2018-0 No 240mg Common 80mg 80mg 09-30 [facility] 00:00: - [facility] Gentamicin Gentamicin 2018-0 No 240mg Common 80mg 80mg 09-30 [facility] 00:00: - [facility] Gentamicin Gentamicin 2018-0 No 240mg [facility] 80mg 80mg 09-30 [facility] 00:00: - [facility] Gentamicin Gentamicin 2018-0 No 240mg Common 80mg 80mg 09-30 [facility] 00:00: - [facility] Gentamicin Gentamicin 2018-0 No 240mg Common 80mg 80mg 09-30 [facility] 00:00: - [facility] Gentamicin Gentamicin 2018-0 No 240mg Common 80mg 80mg 09-30 [facility] 00:00: - [facility] Gentamicin Gentamicin 2018-0 No 240mg Common 80mg 80mg 09-30 [facility] 00:00: - [facility] Gentamicin Gentamicin 2018-0 No 240mg Common 80mg 80mg 09-30 [facility] 00:00: - [facility] Gentamicin Gentamicin 2018-0 No 240mg Common 80mg 80mg 09-30 [facility] 00:00: - [facility] Gentamicin Gentamicin 2018-0 No 240mg Common 80mg 80mg 09-30 [facility] 00:00: - [facility] Gentamicin Gentamicin 2018-0 No 240mg Common 80mg 80mg 09-30 [facility] 00:00: - [facility] Gentamicin Gentamicin 2018-0 No 240mg Common 80mg 80mg 09-30 [facility] 00:00: - [facility] Gentamicin Gentamicin 2018-0 No 240mg Common 80mg 80mg 09-30 [facility] 00:00: - [facility] Gentamicin Gentamicin 2018-0 No 240mg Common 80mg 80mg 09-30 [facility] 00:00: - [facility] Gentamicin Gentamicin 2018-0 No 240mg Common 80mg 80mg 09-30 [facility] 00:00: - [facility] Gentamicin Gentamicin 2018-0 No 240mg Common 80mg 80mg 09-30 [facility] 00:00: - [facility] Gentamicin Gentamicin 2017-0 No 240mg Common 80mg 80mg 09-30 [facility] 00:00: - [facility] Gentamicin Gentamicin 2018-0 No 240mg Common 80mg 80mg 09-30 [facility] 00:00: - [facility] Gentamicin Gentamicin 2018-0 No 240mg Common 80mg 80mg 09-30 [facility] 00:00: - [facility] Gentamicin Gentamicin 2018-0 No 240mg Common 80mg 80mg 09-30 [facility] 00:00: - [facility] Pantoprazol Pantoprazol No 1{table QD Pantoprazo e [...] 40 MG Creon Creon No TID Creon [id number] [phone] UNIT UNIT 0 UNIT Neurontin Neurontin No [...] re_bedt rosalia} Creon Creon No TID Creon [id number] [phone] UNIT UNIT 0 UNIT HYDROcodone HYDROcodone No 1{table QID HYDROcodon -Acetaminop -Acetaminop t_as_ne e-Acetamin hen 7.5-325 hen 7.5-325 eded} ophen MG MG 7.5-325 MG Famotidine Famotidine No 1{table BID Famotidine 10 MG 10 MG t_as_ne 10 MG eded} Culturelle Culturelle No Culturelle - - - Protonix 40 Protonix 40 No 1{table QD Protonix MG MG t} 40 MG Creon Creon No TID Creon [id number] [phone] UNIT UNIT 0 UNIT Neurontin Neurontin No [...] 40 MG Creon Creon No TID Creon 45867-17809 [phone] [phone] UNIT UNIT 0 UNIT Neurontin Neurontin No [...] 40 MG Creon Creon No TID Creon 65449-16304 [phone] [phone] UNIT UNIT 0 UNIT Protonix 40 Protonix [...] - - Creon Creon No TID Creon 49660-92545 [phone] [phone] UNIT UNIT 0 UNIT Protonix 40 Protonix [...] MG eded} Creon Creon No TID Creon 34300-54875 [phone] [phone] UNIT UNIT 0 UNIT Pantoprazol Pantoprazol No [...] e_eveni ng} Creon Creon No TID Creon 50310-49506 [phone] [phone] UNIT UNIT 0 UNIT Metoprolol Metoprolol No [...] e_eveni ng} Creon Creon No TID Creon 13989-58773 [phone] 9[address] UNIT UNIT 0 UNIT Metoprolol Metoprolol No 1{table BID Metoprolol Tartrate 50 Tartrate 50 t_with_ Tartrate MG MG food} 50 MG cloNIDine cloNIDine No 1{table QD cloNIDine HCl 0.1 MG HCl 0.1 MG t_at_be HCl 0.1 MG dtime} Culturelle Culturelle No Culturelle - - - Neurontin Neurontin No 1{capsu QD Neurontin 300 MG 300 MG le_befo 300 MG re_bedt orsalia} Zestoretic Zestoretic No 1{table QD Zestoretic 20-25 [...] e_eveni ng} Creon Creon No TID Creon [id number] [phone] 9[address]14-[address] UNIT UNIT 0 UNIT Metoprolol Metoprolol No [...] re_bedt rosalia} Creon Creon No TID Creon 22885-50371 [phone] [phone] UNIT UNIT 0 UNIT Metoprolol Metoprolol No [...] re_bedt rosalia} Creon Creon No TID Creon 76357-09451 [phone] 585[address] UNIT UNIT 0 UNIT Metoprolol Metoprolol No [...] re_bedt rosalia} Creon Creon No TID Creon 31796-29403 [phone] [phone] UNIT UNIT 0 UNIT Metoprolol Metoprolol No [...] 40 MG Creon Creon No TID Creon 25719-98843 [phone] [phone] UNIT UNIT 0 UNIT cloNIDine cloNIDine No [...] 40 MG Creon Creon No TID Creon 88781-39977 [phone] [phone] UNIT UNIT 0 UNIT cloNIDine cloNIDine No [...] 40 MG Creon Creon No TID Creon 82721-44049 [phone] [address] UNIT UNIT 0 UNIT traZODone traZODone No [...] 40 MG Creon Creon No TID Creon 82094-77739 [phone] [address] UNIT UNIT 0 UNIT cloNIDine cloNIDine No [...] MG dtime} Creon Creon No TID Creon 10936-79363 [phone] 0[address] UNIT UNIT 0 UNIT Citalopram Citalopram No [...] MG dtime} Creon Creon No TID Creon 64542-29881 [phone] [address] UNIT UNIT 0 UNIT Citalopram Citalopram No [...] MG dtime} Creon Creon No TID Creon 09197-56724 [phone] [address] UNIT UNIT 0 UNIT Citalopram Citalopram No [...] MG dtime} Creon Creon No TID Creon 53908-07285 [phone] [phone] UNIT UNIT 0 UNIT traZODone traZODone No [...] 40 MG Creon Creon No TID Creon 25067-63320 85213-24308 98[address] UNIT UNIT 0 UNIT Zestoretic Zestoretic No [...] MG eded} Creon Creon No TID Creon 98860-53699 [phone] [address] UNIT UNIT 0 UNIT Citalopram Citalopram No [...] MG eded} Creon Creon No TID Creon 99155-74861 [phone] [address] UNIT UNIT 0 UNIT Citalopram Citalopram No [...] MG eded} Creon Creon No TID Creon 96178-65941 [phone] [address] UNIT UNIT 0 UNIT Citalopram Citalopram No [...] MG eded} Creon Creon No TID Creon 60959-80109 [phone] [address] UNIT UNIT 0 UNIT Citalopram Citalopram No [...] MG eded} Creon Creon No TID Creon 48095-52963 [phone] 55[address] UNIT UNIT 0 UNIT Citalopram Citalopram No [...] MG eded} Creon Creon No TID Creon 78731-91509 56992-37503 [address] UNIT UNIT 0 UNIT Citalopram Citalopram No [...] 50 MG Creon Creon No TID Creon 70706-53632 [phone] [address] UNIT UNIT 0 UNIT Culturelle Culturelle No [...] 50 MG Creon Creon No TID Creon 07520-99115 22092-93173 13247[address]5956 UNIT UNIT 0 UNIT Culturelle Culturelle No [...] 40 MG Creon Creon No TID Creon 28597-92428 [phone] [address] UNIT UNIT 0 UNIT Metoprolol Metoprolol No 1{table BID Metoprolol Tartrate 50 Tartrate 50 t_with_ Tartrate MG MG food} 50 MG Metoprolol Metoprolol No 1{table BID Metoprolol Tartrate 50 Tartrate 50 t_with_ Tartrate MG MG food} 50 MG Creon Creon No TID Creon 62745-53731 [phone] 0[address] UNIT UNIT 0 UNIT Culturelle Culturelle No [...] 40 MG Creon Creon No TID Creon 87775-46737 54749-08745 [address] UNIT UNIT 0 UNIT HYDROcodone HYDROcodone No [...] 40 MG Creon Creon No TID Creon 96718-19136 16380-08158 7[address] UNIT UNIT 0 UNIT Neurontin Neurontin No [...] 40 MG Creon Creon No TID Creon 32976-97422 19351-66060 269[address] UNIT UNIT 0 UNIT Neurontin Neurontin No [...] 40 MG Creon Creon No TID Creon 07214-04935 34108-29131 29[address] UNIT UNIT 0 UNIT Neurontin Neurontin No [...] 40 MG Creon Creon No TID Creon 81347-13660 88658-70994 [address] UNIT UNIT 0 UNIT Neurontin Neurontin No [...] 40 MG Creon Creon No TID Creon 30348-03012 92895-89358 46967-8845 UNIT UNIT 0 UNIT Neurontin Neurontin No [...] 40 MG Creon Creon No TID Creon 81080-52665 11959-15108 14878-5508 UNIT UNIT 0 UNIT Neurontin Neurontin No 1{capsu QD Neurontin 300 MG 300 MG le_befo 300 MG re_bedt rosalia} Clotrimazol Clotrimazol 2020- No Dmitry 1 Common e e 10-12 [place] applicatio [facility] 00:00 n to - [facility] :00 affected [facility] Immunizations Ordered Immunization Filled Immunization Date Status Commen ts Source Name Name Mina Enriquez 2018-04-25 Completed [facility] (Triamcinolone) (Triamcinolone) 09:55:00 [facility] Mina Enriquez 2018-04-25 Completed [facility] ([facility] (Triamcinolone[facility] (Triamcinolone) 09:55:00 [facility] Mina 2018-04-25 Completed [facility] (Triamcinolone) (Triamcinolone) 09:55:00 [facility] Mina Enriquez 2018-04-25 Completed [facility] (Triamcinolone) (Triamcinolone) 09:55:00 [facility] Mina Enriquez 2018-04-25 Completed [facility] (Triamcinolone) (Triamcinolone) 09:55:00 - [facility] Mina 2018-04-25 Completed [facility] (Triamcinolone) (Triamcinolone) 09:55:00 [facility] Gentamicin 80mg Gentamicin 80mg 2018-01-04 Completed Comm on [facility] 11:59:00 [facility] Gentamicin 80mg Gentamicin 80mg 2018-01-04 Completed Comm on [facility] 11:59:00 [facility] Gentamicin 80mg Gentamicin 80mg 2018-01-04 Completed Comm on [facility] 11:59:00 [facility] Gentamicin 80mg Gentamicin 80mg 2018-01-04 Completed Comm on [facility] 11:59:00 [facility] Gentamicin 80mg Gentamicin 80mg 2018-01-04 Completed Comm on [facility] 11:59:00 [facility] Gentamicin 80mg Gentamicin 80mg 2018-01-04 Completed [facility] on [facility] 11:59:00 [facility] Gentamicin 80mg Gentamicin 80mg 2018-01-04 Completed Comm on [facility] 11:59:00 [facility] Gentamicin 80mg Gentamicin 80mg 2017-09-30 Completed [facility] on [facility] 15:54:00 [facility] Gentamicin 80mg Gentamicin 80mg 2017-09-30 Completed [facility] on [facility] 15:54:00 [facility] Gentamicin 80mg Gentamicin 80mg 2017-09-30 Completed Comm on [facility] 15:54:00 [facility] Gentamicin 80mg Gentamicin 80mg 2017-09-30 Completed [facility] on [facility] 15:54:00 [facility] Gentamicin 80mg Gentamicin 80mg 2017-09-30 Completed [facility] on [facility] 15:54:00 [facility] Gentamicin 80mg Gentamicin 80mg 2017-09-30 Completed Comm on [facility] 15:54:00 [facility] Gentamicin 80mg Gentamicin 80mg 2017-09-30 Completed Comm on [facility] 15:54:00 [facility] Vital Signs Vital Name Observation Time Observation Value Comments Source height 2022-03-11 13:00:00 61 [in_i] [facility] weight 2022-03-11 13:00:00 170 [lb_av] [facility] temperature 2022-03-11 13:00:00 97.3 [degF] [facility] bmi 2022-03-11 13:00:00 32.12 kg/m2 [facility] oximetry 2022-03-11 13:00:00 96 % [facility] respiratory rate 2022-03-11 13:00:00 16 /min Comm on [facility] blood pressure 2022-03-11 13:00:00 138 mm[Hg] Common [facility] - systolic [facility] blood pressure 2022-03-11 13:00:00 96 mm[Hg] Common [facility] - diastolic [facility] blood pressure 2022-02-19 09:45:00 132 mm[Hg] Common [facility] - systolic [facility] blood pressure 2022-02-19 09:45:00 68 mm[Hg] [facility] - diastolic [facility] height 2022-02-19 09:45:00 61 [in_i] Common [facility] weight 2022-02-19 09:45:00 165 [lb_av] Common [facility] temperature 2022-02-19 09:45:00 97.8 [facility]degF[facility] 2022-02-19 09:45:00 31.17 [facility] 2022-02-19 09:45:00 96 % Common [facility] respiratory rate 2022-02-19 09:45:00 18 /min Comm on [facility] height 2022-01-14 11:00:00 61 [in_i] Common [facility] weight 2022-01-14 11:00:00 165 [[facility]_av[facility] temperature 2022-01-14 11:00:00 97.8 [degF] [facility] bmi 2022-01-14 11:00:00 31.17 kg/m2 Common [facility] oximetry 2022-01-14 11:00:00 97 % Common S [facility] respiratory rate 2022-01-14 11:00:00 16 /min Comm on [facility] blood pressure 2022-01-14 11:00:00 142 mm[Hg] Common [facility] - systolic [facility] blood pressure 2022-01-14 11:00:00 89 mm[Hg] [facility] - diastolic [facility] height 2021-08-01 13:30:00 61 [in_i] Common S [facility]irit - [facility] weight 2021-08-01 13:30:00 181 [lb_av] Common S pirit [facility] temperature 2021-08-01 13:30:00 98 [degF] Common S pirit [facility] bmi 2021-08-01 13:30:00 34.2 kg/m2 Common S pirit - [facility] blood pressure 2021-08-01 13:30:00 136 mm[Hg] [facility] - systolic [facility] blood pressure 2021-08-01 13:30:00 76 mm[Hg] [facility] - diastolic [facility] height 2021-07-31 09:30:00 61 [in_i] Common [facility] weight 2021-07-31 09:30:00 180 [lb_av] Common S pirit [facility] bmi 2021-07-31 09:30:00 34.01 kg/m2 Common S pirit [facility] blood pressure 2021-07-31 09:30:00 144 mm[Hg] [facility] - systolic [facility] blood pressure 2021-07-31 09:30:00 80 mm[Hg] [facility] - diastolic [facility] height 2021-07-25 11:30:00 61 [in_i] Common S pirit [facility] weight 2021-07-25 11:30:00 180 [lb_av] Common [facility] - [facility] temperature 2021-07-25 11:30:00 98.1 [degF] Common S pirit [facility] bmi 2021-07-25 11:30:00 34.01 kg/m2 [facility] S pirit [facility] oximetry 2021-07-25 11:30:00 96 % [facility] S [facility] respiratory rate 2021-07-25 11:30:00 16 /min Comm on [facility] blood pressure 2021-07-25 11:30:00 146 mm[Hg] [facility] - systolic [facility] blood pressure 2021-07-25 11:30:00 88 mm[Hg] [facility] - diastolic [facility] height 2021-04-21 14:15:00 61 [in_i] Common S [facility] weight 2021-04-21 14:15:00 180 [lb_av] Common S pirit [facility] temperature 2021-04-21 14:15:00 97.6 [degF] [facility] bmi 2021-04-21 14:15:00 34.01 kg/m2 [facility] oximetry 2021-04-21 14:15:00 94 % [facility] respiratory rate 2021-04-21 14:15:00 18 /min Comm on [facility] blood pressure 2021-04-21 14:15:00 136 mm[Hg] [facility] - systolic [facility] blood pressure 2021-04-21 14:15:00 68 mm[Hg] [facility] - diastolic [facility] height 2021-04-14 14:00:00 61 [in_i] Common [facility] weight 2021-04-14 14:00:00 180 [lb_av] [facility] bmi 2021-04-14 14:00:00 34.01 kg/m2 Common S pirit - [facility] blood pressure 2021-04-14 14:00:00 132 mm[Hg] [facility] - systolic [facility] blood pressure 2021-04-14 14:00:00 80 mm[Hg] [facility] - diastolic [facility] height 2021-03-06 16:30:00 61 [in_i] Common S [facility] weight 2021-03-06 16:30:00 180 [lb_av] [facility] S [facility] temperature 2021-03-06 16:30:00 97.8 [degF] Common S pirit [facility] bmi 2021-03-06 16:30:00 34.01 kg/m2 Common S pirit - [facility] oximetry 2021-03-06 16:30:00 99 % Common S [facility] - [facility] respiratory rate 2021-03-06 16:30:00 18 /min Comm on [facility] - [facility] blood pressure 2021-03-06 16:30:00 135 mm[Hg] [facility] - systolic [facility] blood pressure 2021-03-06 16:30:00 90 mm[Hg] [facility] - diastolic [facility] height 2021-01-27 16:20:00 61 [in_i] Common S pirit [facility] weight 2021-01-27 16:20:00 180 [lb_av] Common S pirit [facility] temperature 2021-01-27 16:20:00 97.6 [degF] Common S [facility]irit - [facility] bmi 2021-01-27 16:20:00 34.01 kg/m2 Common S [facility] - [facility] oximetry 2021-01-27 16:20:00 98 % Common S pirit [facility] blood pressure 2021-01-27 16:20:00 132 mm[Hg] [facility] - systolic [facility] blood pressure 2021-01-27 16:20:00 68 mm[Hg] [facility] - diastolic [facility] height 2020-12-25 14:45:00 61 [in_i] Common [facility] - [facility] weight 2020-12-25 14:45:00 180 [lb_av] Common [facility] - [facility] temperature 2020-12-25 14:45:00 97.6 [degF] Common S [facility] - [facility] bmi 2020-12-25 14:45:00 34.01 kg/m2 Common S [facility] - [facility] oximetry 2020-12-25 14:45:00 97 % Common [facility] - [facility] blood pressure 2020-12-25 14:45:00 147 mm[Hg] [facility] - systolic [facility] blood pressure 2020-12-25 14:45:00 84 mm[Hg] [facility] - diastolic [facility] height 2020-12-02 15:40:00 61 [in_i] Common [facility] - [facility] weight 2020-12-02 15:40:00 180 [lb_av] Common [facility] - [facility] temperature 2020-12-02 15:40:00 97.8 [degF] Common [facility] - [facility] bmi 2020-12-02 15:40:00 34.01 kg/m2 Common S [facility] - [facility] oximetry 2020-12-02 15:40:00 96 % Common S [facility] - [facility] blood pressure 2020-12-02 15:40:00 184 mm[Hg] [facility] - systolic [facility] blood pressure 2020-12-02 15:40:00 104 mm[Hg] [facility] - diastolic [facility] height 2020-10-16 13:40:00 61 [in_i] Common S pirit [facility] weight 2020-10-16 13:40:00 178 [lb_av] Common S [facility] - [facility] temperature 2020-10-16 13:40:00 97.4 [degF] Common S pirit [facility] bmi 2020-10-16 13:40:00 33.63 kg/m2 Common S pirit - [facility] blood pressure 2020-10-16 13:40:00 128 mm[Hg] [facility] - systolic [facility] blood pressure 2020-10-16 13:40:00 76 mm[Hg] [facility] - diastolic [facility] height 2020-10-16 16:30:00 61 [in_i] Common [facility] - [facility] weight 2020-10-16 16:30:00 180 [lb_av] [facility] - [facility] temperature 2020-10-16 16:30:00 97.7 [degF] [facility] - [facility] bmi 2020-10-16 16:30:00 34.01 kg/m2 [facility] - [facility] oximetry 2020-10-16 16:30:00 97 % [facility] - [facility] blood pressure 2020-10-16 16:30:00 162 mm[Hg] [facility] - systolic [facility] blood pressure 2020-10-16 16:30:00 96 mm[Hg] [facility] - diastolic [facility] Procedures This patient has no [...] 00:00:00 (1 of 1 - Medical Center [id number]_Ibzkbta PCV13) [code = PNEUMOCOCCAL 65+ YRS (1 of 1 - CTUV13_Mnlflqb PCV13)] Future Scheduled 2012-12-28 PNEUMOCOCCAL 65+ YRS [facility] Test 00:00:00 (1 of 1 - Medical Center SENS04_Yiuznjy PCV13) [code = PNEUMOCOCCAL 65+ YRS (1 of 1 - VKQC02_Qwncxya PCV13)] Future Scheduled 2012-12-28 PNEUMOCOCCAL 65+ YRS [facility] Test 00:00:00 (1 of 1 - Medical Center UVEN90_Kgmlucm PCV13) [code = PNEUMOCOCCAL 65+ YRS (1 of 1 - UTFE18_Ptysjtf PCV13)] Future Scheduled 1997-12-28 SHINGLES VACCINES (1 [...] [facility] breast (procedure) [code = 398667869] Future Scheduled [address] [facility]:00 [facility] colon (procedure) [code = 242892921] Future Scheduled [address] [facility] Test 00:00:00 [facility] breast (procedure) [code = 337575002] Future Scheduled [address] [facility] Test 00:00:00 [facility] colon (procedure) [code = 367779715] Future Scheduled [address] [facility] Test 00:00:00 [facility] breast (procedure) [code = 554479005] Future Scheduled [address] [facility] Test 00:00:00 [facility] colon (procedure) [code = 586895985] Encounters Start End Encounter Admission Attending Care Care Encounter Source Date/Time Date/Time Type Type Clinicians Facility Department ID 2022-08-[address] [facility] [id number] Common 10:09:00 [facility] [address] [facility] 2022-07-31 Outpatient Powell, [facility] [id number] Common 09:48:00 [facility] 99133 [facility] 2022-06-15 Outpatient Powell, STLMLC STLMLC [id number] Common 10:10:00 Dmitry 59297 [facility] 2022-05-21 Outpatient Powell, STLMLC STLMLC [id number] Common 13:22:01 Dmitry 02489 [facility] 2021-07-31 Outpatient Powell, STLMLC STLMLC [id number] Common 09:46:01 Dmitry [facility] 2021-04-02 Outpatient Powell, STLMLC STLMLC [id number] Common 14:02:15 Dmitry 89154 [facility] 2021-04-02 Outpatient Powell, STLMLC STLC [id number] Common 14:01:19 Dmitry 53993 [facility] 2021-04-02 Outpatient Powell, STLMLC STLC [id number] Common 13:38:40 Dmitry 19465 [facility] 2021-04-02 Outpatient Powell, STLMLC STLC [id number] Common 13:36:48 Dmitry 74753 [facility] 2021-04-02 Outpatient Powell, STLMLC STLC [id number] Common 13:28:35 Dmitry 28881 [facility] 2021-04-02 Outpatient Powell, STLMLC STLC [id number] Common 13:28:20 Dmitry 85614 [facility] 2021-04-02 Outpatient Powell, STLMLC STLMLC [id number] Common 13:04:41 Dmitry 90694 [facility] 2021-04-02 Outpatient Powell, STLMLC STLMLC [id number] Common 12:55:20 Dmitry 09611 [facility] 2021-04-02 Outpatient Powell, STLMLC STLMLC [id number] Common 12:37:32 Dmitry 13438 [facility] 2021-04-02 Outpatient Powell, STLMLC STLC [id number] Common 11:40:56 Dmitry 44054 [facility] 2021-04-02 Outpatient Powell, STLMLC STLMLC [id number] Common 11:32:24 Dmitry 16092 [facility] 2021-04-02 Outpatient Powell, STLMLC STLMLC [id number] Common 10:59:26 Dmitry 27160 [facility] 2021-04-02 Outpatient Powell, STLMLC STLMLC [id number] Common 10:59:05 Dmitry 13504 [facility] 2020-12-15 Inpatient UR [facility] Urology [id number] [facility] 2022-05-14 2022-05-14 Outpatient Ogweno_B DMG DMG [id number] [facility] 00:00:00 00:00:00 0309 [facility] 2022-05-14 2022-05-14 Outpatient Ogweno_B DMG DMG [id number] [facility] 00:00:00 00:00:00 0506 [facility] 2022-03-26 2022-03-26 Outpatient Ogweno_B DMG DMG [id number] [facility] 00:00:00 00:00:00 0217 [facility] 2022-03-26 2022-03-26 Outpatient Ogweno_B DMG DMG [id number] [facility] 00:00:00 00:00:00 0119 [facility] 2022-03-24 2022-03-24 (TEL) STLMLC STLC [id number] Co mmon 00:00:00 00:00:00 [facility] 2022-03-11 2022-03-11 OFFICE STLMLC STLMLC [id number] Co mmon 00:00:00 00:00:00 VISIT [facility] LEVEL 4 [facility] 2022-03-06 2022-03-06 (TEL) STLMLC STLMLC [id number] Co mmon 00:00:00 00:00:00 [facility] 2022-02-23 2022-02-23 Outpatient DMG DMG [id number] [facility] 00:00:00 00:00:00 1219 [facility] 2022-02-19 2022-02-19 OFFICE STLMLC STLMLC [id number] Co mmon 00:00:00 00:00:00 VISIT EST Spir it PT LEVEL 3 - [facility] 2022-01-14 2022-01-14 OFFICE STLMLC STLMLC [id number] Co mmon 00:00:00 00:00:00 VISIT EST Spir it PT LEVEL 3 - [facility] 2021-12-23 2021-12-23 (TEL) STLMLC STLMLC [id number] Co mmon 00:00:00 00:00:00 [facility] 2021-12-19 2021-12-19 OFFICE STLMLC STLMLC [id number] Co mmon 00:00:00 00:00:00 VISIT [facility] ESTAB PT - CHI LEVEL 1 [facility] 2021-10-10 2021-10-10 Phone Only STLMLC STLMLC [id number] Common 00:00:00 00:00:00 Visit for Spir it Est MCR - [facility] 2021-10-01 2021-10-01 (TEL) STLMLC STLMLC [id number] Co mmon 00:00:00 00:00:00 [facility] 2021-09-23 2021-09-23 (TEL) STLMLC STLMLC [id number] Co mmon 00:00:00 00:00:00 [facility] 2021-09-22 2021-09-22 (TEL) STLMLC STLMLC [id number] Co mmon 00:00:00 00:00:00 [facility] 2021-09-22 2021-09-22 OFFICE STLMLC STLMLC [id number] Co mmon 00:00:00 00:00:00 VISIT [facility] ESTAB PT - CHI LEVEL 1 [facility] 2021-09-19 2021-09-19 Outpatient DMG DMG [id number] [facility] 03:36:00 03:36:00 0715 [facility] 2021-08-15 2021-08-15 (TEL) STLMLC STLMLC [id number] Co mmon 00:00:00 00:00:00 [facility] 2021-08-12 2021-08-12 (TEL) STLMLC STLMLC [id number] Co mmon 00:00:00 00:00:00 [facility] 2021-08-01 2021-08-01 (TEL) STLMLC STLMLC [id number] Co mmon 00:00:00 00:00:00 [facility] 2021-08-01 2021-08-01 (EST. STLMLC STLMLC [id number] Co mmon 00:00:00 00:00:00 VIDEO) EST Spi rit VIRTUAL - [facility] VIDEO [facility] 2021-07-31 2021-07-31 (TEL) STLMLC STLMLC [id number] Co mmon 00:00:00 00:00:00 [facility] 2021-07-31 2021-07-31 OFFICE STLMLC STLMLC [id number] Co mmon 00:00:00 00:00:00 VISIT EST Spir it PT LEVEL 3 - [facility] 2021-07-30 2021-07-30 (TEL) STLMLC STLMLC [id number] Co mmon 00:00:00 00:00:00 [facility] 2021-07-25 2021-07-25 OFFICE STLMLC STLMLC [id number] Co mmon 00:00:00 00:00:00 VISIT [facility] PT - CHI LEVEL 4 [facility] 2021-07-22 2021-07-22 (TEL) STLMLC STLMLC [id number] Co mmon 00:00:00 00:00:00 [facility] 2021-07-14 2021-07-14 (TEL) STLMLC STLMLC [id number] Co mmon 00:00:00 00:00:00 [facility] 2021-07-12 2021-07-12 (TEL) STLMLC STLMLC [id number] Co mmon 00:00:00 00:00:00 [facility] 2021-07-05 2021-07-05 Outpatient DMG DMG [id number] [facility] 09:00:00 09:00:00 0430 [facility] 2021-05-20 2021-05-20 Outpatient DMG DMG [id number] [facility] 09:01:00 09:01:00 0315 [facility] 2021-05-14 2021-05-14 (PROC) STLMLC STLMLC [id number] Co mmon 00:00:00 00:00:00 Procedure Spir it - [facility] 2021-05-07 2021-05-07 (TEL) STLMLC STLMLC [id number] Co mmon 00:00:00 00:00:00 [facility] 2021-05-07 2021-05-07 OFFICE STLMLC STLMLC [id number] Co mmon 00:00:00 00:00:00 VISIT [facility] PT - CHI LEVEL 4 [facility] 2021-05-06 2021-05-06 (TEL) STLMLC STLMLC [id number] Co mmon 00:00:00 00:00:00 [facility] 2021-04-21 2021-04-21 (TEL) STLMLC STLMLC [id number] Co mmon 00:00:00 00:00:00 [facility] 2021-04-21 2021-04-21 OFFICE STLMLC STLMLC [id number] Co mmon 00:00:00 00:00:00 VISIT EST Spir it PT LEVEL 3 - [facility] 2021-04-18 2021-04-18 (TEL) STLMLC STLMLC [id number] Co mmon 00:00:00 00:00:00 [facility] 2021-04-16 2021-04-16 (TEL) STLMLC STLMLC [id number] Co mmon 00:00:00 00:00:00 [facility] 2021-04-14 2021-04-14 (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) New STLMLC STLMLC [id number] C ommon 00:00:00 00:00:00 Patient [facility] 2021-04-10 2021-04-10 (TEL) STLMLC STLMLC [id number] Co mmon 00:00:00 00:00:00 [facility] 2021-04-03 2021-04-03 (TEL) STLMLC STLMLC [id number] Co mmon 00:00:00 00:00:00 [facility] 2021-03-10 2021-03-10 (TEL) STLMLC STLMLC [id number] Co mmon 00:00:00 00:00:00 [facility] 2021-03-06 2021-03-06 OFFICE STLMLC STLMLC [id number] Co mmon 00:00:00 00:00:00 VISIT [facility] PT - CHI LEVEL 2 [facility] 2021-03-05 2021-03-05 (TEL) STLMLC STLMLC [id number] Co mmon 00:00:00 00:00:00 [facility] 2021-01-27 2021-01-27 OFFICE STLMLC STLMLC [id number] Co mmon 00:00:00 00:00:00 VISIT [facility] PT - CHI LEVEL 4 [facility] 2020-12-25 2020-12-25 OFFICE STLMLC STLMLC [id number] Co mmon 00:00:00 00:00:00 VISIT EST Spir it PT LEVEL 3 [facility] 2020-12-20 2020-12-20 (TEL) STLMLC STLMLC [id number] Co mmon 00:00:00 00:00:00 [facility] 2020-12-02 2020-12-02 (TEL) STLMLC STLMLC [id number] Co mmon 00:00:00 00:00:00 [facility] 2020-12-02 2020-12-02 (TEL) STLMLC STLMLC [id number] Co mmon 00:00:00 00:00:00 [facility] 2020-12-02 2020-12-02 OFFICE STLMLC STLMLC [id number] Co mmon 00:00:00 00:00:00 VISIT EST Spir it PT LEVEL 3 [facility] 2020-10-16 2020-10-16 OFFICE STLMLC STLMLC [id number] Co mmon 00:00:00 00:00:00 VISIT [facility] PT - [facility] LEVEL 4 [facility] 2020-10-16 2020-10-16 OFFICE STLMLC STLMLC [id number] Co mmon 00:00:00 00:00:00 VISIT [facility] PT - CHI LEVEL 4 [facility] 2020-10-10 2020-10-10 (TEL) STLMLC STLMLC [id number] Co mmon 00:00:00 00:00:00 [facility] 2020-09-25 2020-09-25 Outpatient STLMLC STLMLC [id number] Common 00:00:00 00:00:00 [facility] 2020-09-20 2020-09-20 Outpatient STLMLC STLMLC [id number] Common 00:00:00 00:00:00 [facility] 2020-09-04 2020-09-04 Outpatient STLMLC STLMLC [id number] Common 00:00:00 00:00:00 [facility] 2020-09-04 2020-09-04 Outpatient STLMLC STLMLC [id number] Common 00:00:00 00:00:00 [facility] 2020-09-04 2020-09-04 Outpatient STLMLC STLMLC [id number] Common 00:00:00 00:00:00 [facility] 2020-09-03 2020-09-03 Outpatient STLMLC STLMLC [id number] Common 00:00:00 00:00:00 [facility] 2020-08-27 2020-08-27 Outpatient STLMLC STLMLC [id number] Common 00:00:00 00:00:00 [facility] 2020-08-15 2020-08-15 Outpatient STLMLC STLMLC [id number] Common 00:00:00 00:00:00 [facility] 2020-08-14 2020-08-14 Outpatient STLMLC STLMLC [id number] Common 00:00:00 00:00:00 [facility] 2020-08-01 2020-08-01 Outpatient STLMLC STLMLC [id number] Common 00:00:00 00:00:00 [facility] 2020-07-24 2020-07-24 Outpatient STLMLC STLMLC [id number] Common 00:00:00 00:00:00 [facility] 2020-07-16 2020-07-16 Outpatient STLMLC STLMLC [id number] Common 00:00:00 00:00:00 [facility] 2020-07-16 2020-07-16 Outpatient STLMLC STLMLC [id number] Common 00:00:00 00:00:00 [facility] 2020-07-10 2020-07-10 Outpatient STLMLC STLMLC [id number] Common 00:00:00 00:00:00 [facility] 2020-07-05 2020-07-05 Outpatient STLMLC STLMLC [id number] Common 00:00:00 00:00:00 [facility] 2020-06-27 2020-06-27 Outpatient STLMLC STLMLC [id number] Common 00:00:00 00:00:00 [facility] 2020-06-24 2020-06-24 Outpatient STLMLC STLMLC [id number] Common 00:00:00 00:00:00 [facility] 2020-06-19 2020-06-19 Outpatient STLMLC STLMLC [id number] Common 00:00:00 00:00:00 [facility] 2020-05-20 2020-05-20 Outpatient STLMLC STLMLC [id number] Common 00:00:00 00:00:00 [facility] 2020-05-14 2020-05-14 Outpatient STLMLC STLMLC [id number] Common 00:00:00 00:00:00 [facility] 2020-04-19 2020-04-19 Outpatient STLMLC STLMLC [id number] Common 00:00:00 00:00:00 [facility] 2020-04-16 2020-04-16 Outpatient STLMLC STLMLC [id number] Common 00:00:00 00:00:00 [facility] 2019-09-29 2019-09-29 [facility] [id number] Common 13:46:00 13:46:[address] [facility] [address] [facility] 2019-09-28 2019-09-28 [facility] [id number] Common 11:00:00 11:00:[address] [facility] 2019-09-28 2019-09-28 [facility] [id number] Common 10:30:00 10:30:[address] [facility] 2019-07-14 2019-07-14 [facility] [id number] Common 10:31:00 10:31:[address] [facility] 2018-12-15 2018-12-15 [facility] [id number] Common 16:00:00 16:00:[address] [facility] 2018-09-14 2018-09-14 [facility] [id number] Common 15:45:00 15:45:[address] [facility] 2018-08-30 2018-08-30 [facility] [id number] Common 08:00:00 08:00:[address] [facility] 2018-06-10 2018-06-10 [facility] [id number] Common 16:46:00 16:46:[address] [facility] 2018-06-09 2018-06-09 [facility] [id number] Common 09:18:00 09:18:00 t [facility] [address] [facility] 2018-06-07 2018-06-07 [facility] [id number] Common 15:00:00 15:00:[address] [facility] 2018-04-25 2018-04-25 [facility] [id number] Common 09:15:00 09:15:[address] [facility] 2018-03-09 2018-03-09 [facility] [id number] Common 16:00:00 16:00:[address] [facility] 2018-03-03 2018-03-03 [facility] [id number] Common 08:52:00 08:52:[address] [facility] 2017-11-30 2017-11-30 [facility] [id number] Common 15:00:00 15:00:[address] [facility] 2017-09-30 2017-09-30 [facility] [id number] Common 15:00:00 15:00:00 t Specialty/U Sp nahed Specialty rology - [facility] /Urology Clinic [facility] 2017-09-29 2017-09-29 [facility] [id number] Common 10:13:00 10:13:[address] [facility] 2017-09-28 2017-09-28 [facility] [id number] Common 14:00:00 14:00:[address] [facility] Results Test Description Test Time Test Comments Results Result Comments Source PHOSPHORUS 2018-11-11 05:54:00 Test Item Value Reference Range Interpretation Comme nts PHOSPHORUS (BEAKER) (test code = 604) 3.6 mg/dL 2.3-4.7 [id number] 05:54:00 Test Item Value Reference Range Interpretation Comments MAGNESIUM (BEAKER) (test code = 1.8 mg/dL 1.6-2.6 627) BASIC METABOLIC [id number] 05:54:00 Test Item Value Reference Range Interpretation [...] APPLICABLE FOR DIALYSIS PATIEN TS. HEPATIC FUNCTION [id number] 05:54:00 Test Item Value Reference Range Interpretation [...] 6-55 347) CBC W/PLT COUNT & AUTO [id number] 05:43:00 Test Item Value Reference Range Interpretation [...] PERCENT (BEAKER) (test code = 2801) PROTHROMBIN [id number] 05:42:00 Test Item Value Reference Range Interpretation [...] 2.5-3.5 for patients wiht mechanical heart valves.HEMOGLOBIN [id number] 07:50:00 Test Item Value Reference Range Interpretation Comments HEMOGLOBIN A1C (BEAKER) (test code = 7.1 % 4.3-6.1 H 368) [id number] 04:53:00 Test Item Value Reference Range Interpretation Comments PHOSPHORUS (BEAKER) (test code = 3.2 mg/dL 2.3-4.7 604) [id number] 04:53:00 Test Item Value Reference Range Interpretation Comments MAGNESIUM (BEAKER) (test code = 1.8 mg/dL 1.6-2.6 627) BASIC METABOLIC [id number] 04:53:00 Test Item Value Reference Range Interpretation [...] APPLICABLE FOR DIALYSIS PATIEN TS. HEPATIC FUNCTION [id number] 04:53:00 Test Item Value Reference Range Interpretation [...] code = 12 U/L 6-55 347) PROTHROMBIN [id number] 04:19:00 Test Item Value Reference Range Interpretation [...] mechanical heart valves.CBC W/PLT COUNT & AUTO [id number] 04:14:00 Test Item Value Reference Range Interpretation [...] 0-1 PERCENT (BEAKER) (test code = 2801) [id number] 14:44:00 Test Item Value Reference Range Interpretation Comments LIPASE (BEAKER) (test code = 749) 972 U/L 8-78 H [id number] 13:06:00 Test Item Value Reference Range Interpretation Comments PHOSPHORUS (BEAKER) (test code = 3.3 mg/dL 2.3-4.7 604) [id number] 13:06:00 Test Item Value Reference Range Interpretation Comments MAGNESIUM (BEAKER) (test code = 2.0 mg/dL 1.6-2.6 627) BASIC METABOLIC [id number] 13:06:00 Test Item Value Reference Range Interpretation [...] NOT APPLICABLE FOR DIALYSIS PATISAMIR TS. LIPID [id number] 13:06:00 Test Item Value Reference Range Interpretation [...] 130-159 High 160-189 Very High >=190HEPATIC FUNCTION [id number] 13:06:00 Test Item Value Reference Range Interpretation [...] 6-55 347) CBC W/PLT COUNT & AUTO [id number] 12:46:00 Test Item Value Reference Range Interpretation [...] PERCENT (BEAKER) (test code = 2801) PROTHROMBIN [id number] 12:39:00 Test Item Value Reference Range Interpretation [...]
[2022-08-10] MEDS ORDERED: NA CHLORIDE 0.9% 1,000 ML ONE ×2 (12:00→16:59)
[2022-08-10 16:04] LABS: Albumin 2.8 g/dL (3.4-5.0); Bilirubin Total 0.3 mg/dL (0.2-1.0); Protein, Total 6.6 g/dL (6.4-8.2); Troponin High Sensitivity 14.8 pg/mL (<58.9)
[2022-08-10 16:26] LABS: Absolute Lymphocytes (CBC) 2.3 K/uL (0.7-4.9); Hematocrit 33.1 % (36.0-45.0); Lymphocytes % 30.8 % (15.3-44.8); MCV 78.4 fL (80-100); RBC Red Blood Cell Count 4.22 M/uL (3.86-4.86)
--- NOTE | 2022-08-10 16:36 | ER ---
Nurse's Notes [facility] Jaswinder Name: Isadora Bettencourt Age: 76 yrs Sex: Female : 1945 Arrival Date: 08/10/2022 Time: 11:02 Bed 13 Private MD: Diagnosis: Type 2 diabetes mellitus with hyperglycemia Presentation: 08/10 11:25 Chief complaint: Patient states: she has been having nausea and vomiting since ap3 yesterday. patient states she recently moved and hasn't been able to locate her metformin. Coronavirus screen: At this time, the client does not indicate any symptoms associated with coronavirus-19. Ebola Screen: No symptoms or risks identified at this time. Initial Sepsis Screen: Does the patient meet any 2 criteria? No. Patient's initial sepsis screen is negative. Does the patient have a suspected source of infection? No. Patient's initial sepsis screen is negative. Risk Assessment: Do you want to hurt yourself or someone else? Patient reports no desire to harm self or others. Onset of symptoms was August 09, 2022. 11:25 Method Of Arrival: EMS: [facility] ap3 11:25 Acuity: FRANDY 3 ap3 11:27 Care prior to arrival: Medication(s) given: Normal saline infusion, zofran 4 mg, IV ap3 initiated. in the right wrist. Triage Assessment: 11:27 General: Appears in no apparent distress. Behavior is calm, cooperative. Pain: Denies ap3 pain. Neuro: Level of Consciousness is awake, alert, obeys commands, Oriented to person, place, time, situation, Reports dizziness. Cardiovascular: Patient's skin is warm and dry. Respiratory: Airway is patent Respiratory effort is even, unlabored, Respiratory pattern is regular, symmetrical. GI: Reports nausea. Historical: - Allergies: 11:26 No Known Allergies; ap3 - PMHx: 11:26 Anxiety; Hypertension; Kidney stones; Pancreatitis; ap3 - PSHx: 11:26 Appendectomy; Cholecystectomy; Total abdominal hysterectomy; ap3 - Immunization history:: Client reports receiving the 2nd dose of the Covid vaccine. - Social history:: Smoking status: Patient/guardian denies using tobacco. - Family history:: not pertinent. Screenin:28 Abuse screen: Denies threats or abuse. Nutritional screening: No deficits noted. ap3 Tuberculosis screening: No symptoms or risk factors identified. 17:11 [facility] ED Fall Risk Assessment (Adult) History of falling in the last 3 months, ap3 including since admission Yes- single mechanical fall (1 pt). Assessment: 12:16 General: called lab for lab draw assistance. they informed me they would come assist in ap3 collecting the labs. 13:58 General: called lab to follow up with request for lab assistance. ap3 14:01 Reassessment: pt cleaned and placed on purewic. mb9 14:05 Reassessment: provider updated on delay of lab collection. ap3 15:06 General: provider updated on delay of lab collection. provider called lab himself. ap3 issue with lab collection escalated to supervisor warping department. . 15:12 Reassessment: lab arrived to patients bedside. ap3 16:17 Reassessment: Patient and/or family updated on plan of care and expected duration. Pain ap3 level reassessed. Patient is alert, oriented x 3, equal unlabored respirations, skin warm/dry/pink. Vital Signs: 11:25 BP 165 / 83; Pulse 72; Resp 17; Temp 98.2; Pulse Ox 100% ; Weight 77.11 kg; Height 5 ap3 ft. 1 in. ; 16:17 Pulse 69; Pulse Ox 98% on R/A; ap3 11:25 Body Mass Index 32.12 (77.11 kg, 154.94 cm) ap3 ED Course: 11:15 Patient arrived in ED. em1 11:15 Efrain Smith MD is Attending Physician. rt 11:25 Janene Babin, RN is Primary Nurse. ap3 11:26 Triage completed. ap3 11:28 Arm band placed on right wrist. ap3 11:28 Patient has correct armband on for positive identification. Call light in reach. Side ap3 rails up X2. Pulse ox on. NIBP on. Door closed. Noise minimized. 12:01 EKG done, by ED staff, reviewed by Efrain Smith MD. em1 17:11 No provider procedures requiring assistance completed. IV discontinued, intact, ap3 bleeding controlled, No redness/swelling at site. Pressure dressing applied. Administered Medications: 12:19 Drug: NS 0.9% IV 1000 ml Route: IV; Rate: 1 bolus; Site: right wrist; ap3 17:11 Follow up: IV Status: Completed infusion ap3 17:11 Drug: metFORMIN PO 500 mg Route: PO; ap3 17:27 Follow up: Response: No adverse reaction ap3 Medication: 11:28 VIS not applicable for this client. ap3 Outcome: 16:35 Discharge ordered by . rt 17:11 Discharged to home via wheelchair. ap3 17:11 Condition: good 17:11 Discharge instructions given to patient, Instructed on discharge instructions, follow up and referral plans. medication usage, Demonstrated understanding of instructions, follow-up care, medications, Prescriptions given X 1. 17:30 Patient left the ED. ap3 Signatures: Ry Lacey em1 Janene Babin RN RN ap3 Ratna Huffman RN RN mb9 Efrain Smith MD MD rt
--- NOTE | 2022-08-10 16:36 | EDPHYS ---
Physician Documentation [facility] Name: Isadora Bettencourt Age: 76 yrs Sex: Female : 1945 Arrival Date: 08/10/2022 Time: 11:02 Bed 13 Private MD: ED Physician Efrain Smith HPI: 08/10 11:43 This 76 yrs old Female presents to ER via EMS with complaints of Nausea/Vomiting. rt 11:43 Patient presents to the ED with dizziness, hyperglycemia. Patient attributes this to rt not taking her metformin for several days due to losing her or moving. The patient had a blood sugar over 400 by EMS, was given about 600 cc of fluid, blood sugars improved to the 380s. She states that her symptoms have somewhat improved. Denies chest pain. Denies other acute complaints at this time, symptoms are moderate severity, no other aggravating alleviating factors.. Historical: - Allergies: 11:26 No Known Allergies; ap3 - PMHx: 11:26 Anxiety; Hypertension; Kidney stones; Pancreatitis; ap3 - PSHx: 11:26 Appendectomy; Cholecystectomy; Total abdominal hysterectomy; ap3 - Immunization history:: Client reports receiving the 2nd dose of the Covid vaccine. - Social history:: Smoking status: Patient/guardian denies using tobacco. - Family history:: not pertinent. ROS: 11:43 Constitutional: Negative for fever, chills, and weight loss, Cardiovascular: Negative rt for chest pain, palpitations, and edema, Respiratory: Negative for shortness of breath, cough, wheezing, and pleuritic chest pain, Abdomen/GI: Negative for abdominal pain, nausea, vomiting, diarrhea, and constipation, MS/Extremity: Negative for injury and deformity, Skin: Negative for injury, rash, and discoloration, Psych: Negative for depression, anxiety, suicide ideation, homicidal ideation, and hallucinations. 11:43 Neuro: Positive for dizziness, Negative for altered mental status. Exam: 11:43 Constitutional: This is a well developed, well nourished patient who is awake, alert, rt and in no acute distress. Head/Face: Normocephalic, atraumatic. Chest/axilla: Normal chest wall appearance and motion. Nontender with no deformity. No lesions are appreciated. Cardiovascular: Regular rate and rhythm with a normal S1 and S2. No gallops, murmurs, or rubs. Normal PMI, no JVD. No pulse deficits. Respiratory: Lungs have equal breath sounds bilaterally, clear to auscultation and percussion. No rales, rhonchi or wheezes noted. No increased work of breathing, no retractions or nasal flaring. Abdomen/GI: Soft, non-tender, with normal bowel sounds. No distension or tympany. No guarding or rebound. No evidence of tenderness throughout. Skin: Warm, dry with normal turgor. Normal color with no rashes, no lesions, and no evidence of cellulitis. MS/ Extremity: Pulses equal, no cyanosis. Neurovascular intact. Full, normal range of motion. Neuro: Awake and alert, GCS 15, oriented to person, place, time, and situation. Cranial nerves II-XII grossly intact. Motor strength 5/5 in all extremities. Sensory grossly intact. Cerebellar exam normal. Normal gait. Psych: Awake, alert, with orientation to person, place and time. Behavior, mood, and affect are within normal limits. 12:17 ECG was reviewed by the Attending Physician. rt Vital Signs: 11:25 BP 165 / 83; Pulse 72; Resp 17; Temp 98.2; Pulse Ox 100% ; Weight 77.11 kg; Height 5 ap3 ft. 1 in. ; 16:17 Pulse 69; Pulse Ox 98% on R/A; ap3 11:25 Body Mass Index 32.12 (77.11 kg, 154.94 cm) ap3 MDM: 11:16 Patient medically screened. rt 16:47 Differential diagnosis: Hyperglycemia, nonadherence, DKA. Differential diagnosis:. Data rt reviewed: vital signs, nurses notes, lab test result(s), radiologic studies. Test considered but Not performed: CT: No abdominal pain, physical exam is not consistent with pancreatitis, CT scan not indicated. Care significantly affected by the following chronic conditions: Diabetes. Counseling: I had a detailed discussion with the patient and/or guardian regarding: the historical points, exam findings, and any diagnostic results supporting the discharge/admit diagnosis, lab results, the need for outpatient follow up. 08/10 11:23 Order name: CBC with Diff; Complete Time: 16:34 rt 08/10 11:23 Order name: CMP; Complete Time: 16:05 rt 08/10 11:23 Order name: Troponin High Sensitivity; Complete Time: 16:05 rt 08/10 11:23 Order name: EKG; Complete Time: : rt 08/10 11:23 Order name: EKG - Nurse/Tech; Complete Time: 12:01 rt EC:17 Rate is 72 beats/min. Rhythm is regular, Normal Sinus Rhythm with Left bundle branch rt block. QRS [place] is Normal. [place] interval is normal. QRS interval is normal. QT interval is normal. No Q waves. Interpreted by me. Administered Medications: 12: Drug: NS 0.9% IV 1000 ml Route: IV; Rate: 1 bolus; Site: right wrist; ap3 17:11 Follow up: IV Status: Completed infusion ap3 17:11 Drug: metFORMIN PO 500 mg Route: PO; ap3 17:27 Follow up: Response: No adverse reaction ap3 Disposition Summary: 08/10/22 16:35 Discharge Ordered Location: Home rt Problem: new rt Symptoms: have improved rt Condition: Stable rt Diagnosis - Type 2 diabetes mellitus with hyperglycemia rt Followup: rt - With: Private Physician - When: 2 - 3 days - Reason: Discharge Instructions: - Discharge Summary Sheet rt - Hyperglycemia rt Forms: - Medication Reconciliation Form rt - Thank You Letter rt - Antibiotic Education rt - Prescription Opioid Use rt Prescriptions: - metformin 500 mg Oral tablet - take 1 tablet by ORAL route 2 times per day; 60 tablet; Refills: 0, Product rt Selection Permitted Signatures: Dispatcher [employer] Janene Barron RN RN ap3 Efrain Smith MD MD rt
[2022-08-10] MEDS ORDERED: METFORMIN HCL 500 MG TAB ONE (16:59)
[2022-08-10 17:55] VITALS: O2SAT 98
[2022-08-10 17:59] VITALS: TEMP 98.8
[2022-08-10 18:01] VITALS: BP 148/74
--- NOTE | 2022-08-12 07:22 | EKG ---
Test Date: 2022-08-10 Test Time: 11:58:04 Back Tufter: GURINDER MEASUREMENT RESULTS: Intervals: Rate: 72 MS: 164 QRSD: 136 QT: 470 QTc: 514 [place]: P: 31 MS: 164 QRS: -24 T: 143 INTERPRETIVE STATEMENTS: Normal sinus rhythm Left bundle branch block Abnormal ECG Compared to ECG 05/14/2022 03:07:10 No significant changes Electronically Signed On 08-12-22 07:15:18 CDT by Artemio Bolivar
== END 2022-08-10 17:30 | disposition home or self-care (01) ==
LOC: ER 11:02
DX: E11.65 Type 2 diabetes mellitus with hyperglycemia (principal); R11.2 Nausea with vomiting, unspecified; I10 Essential (primary) hypertension; Z87.442 Personal history of urinary calculi
CPT/HCPCS: 96361; 93005; 85025; 36415; 84484; 80053; 96360; 99284; J7030 ×2

== ENCOUNTER 2022-09-04 12:12 | Emergency (ER) | payer MEDICARE ==
--- OUTSIDE RECORDS SUMMARY | 2022-09-04 12:21 | XMS REPORT | Continuity of Care Document ---
:1945 Author Organization [facility] t Address [address] [place] [address] Care Team Providers Name Role Phone Dmitry Powell DO Primary Care Physician [phone] Dmitry Powell Attending Clinician Unavailable Ogdestiny_B Attending Clinician Unavailable GAY QIU Attending Clinician Unavailable Campos Admitting Clinician Unavailable GAY QIU Admitting Clinician Unavailable Payers Payer Name Policy Type Policy Effective Date Expiration Date Sour ce Number MEDICARE A B [id number] 2012 00:00:00 [employer] [id number] (MEDICARE 00:00:00 REPLACEMENT HMO) [employer] [id number] Common Spi rit - [facility] [employer] C1 [id number] Common Spi rit - [facility] [employer] C1 [id number] Common Spi rit - [facility] [employer] C1 [id number] Common Spi rit - [facility] [employer] [id number] Common Spi rit - [facility] [employer] C1 [id number] Common Spi rit - [facility] [employer] [id number] Common Spi rit - [facility] [employer] [facility] C1 [id number] Common Spi rit - [facility] [employer] C1 [id number] Common Spi rit [facility] Problems Condition Condition Condition Status [...] stricture 11-09 Luke s 00:00: Medical 00 [place] Mixed Depression Problem Commo n anxiety with Spirit and anxiety - CHI depressive [facility] Hiatal Hiatal Problem Common hernia hernia [facility] Benign Benign Problem Common essential essential Spir it hypertensi hypertensi - CHI on on [facility] Mixed Hyperlipid Problem Commo n hyperlipid emia, Spirit emia mixed [facility] Ulcer of Ulcer of Problem Commo n esophagus esophagus Spir it without - CHI bleeding [facility] [id number] Cystocele Problem Com mon and Spirit rectocele - CHI with [facility] uterovagin Medica l al Center prolapse [id number] Urinary Problem Commo n incontinen Spirit ce, - CHI unspecifie [facility] Kidney Left Problem Common stone nephrolith [facility] iasis [facility] Vitamin D Vitamin D Problem Com mon deficiency deficiency Sp nahed [facility] [id number] Chronic Problem Common gastritis Spirit without - [facility] type [id number] Insomnia, Problem Com mon unspecifie Spirit d type [facility] [id number] Chronic Problem Commo n GERD Spirit [facility] [id number] Fatigue, Problem Commo n unspecifie Spirit d type [facility] [id number] Peripheral Problem Com mon polyneurop Spirit athy [facility] [id number] Nocturnal Problem Commo n enuresis [facility] [id number] Gross Problem Common hematuria Spirit [facility] [id number] Stress Problem Common incontinen Spirit ce due to - CHI pelvic [facility] [id number] Urinary Problem Common tract Spirit infection - CHI without [facility] site Medical unspecifie Center d [id number] Full Problem Commo n [id number] incontinen Spirit ce of - CHI feces [facility] Mixed Urinary Problem Common incontinen incontinen Sp nahed ce ce, mixed - [facility] [id number] Recurrent Problem Com mon UTI Spirit [facility] Duodenitis Duodenitis Problem C ommon Spirit - [facility] 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 [facility] [id number] 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 - [facility]I with [facility] long-term current use of insulin [id number] Status Problem Common post Spirit placement - [facility] of ureteral [facility] stent Medical [place] [id number] Type 2 [place] [address] diabetes Spirit mellitus - CHI with other diabetic [facility] kidney Medical complicati Center on [id number] Incontinen Problem Com mon ce of Spirit feces, - CHI unspecifie [facility] incontinen Medica l ce type Center [id number] Cystitis Problem Commo n Spirit - [facility] [id number] Bladder Problem Commo n spasms Spirit [facility] [id number] Lower Problem Common urinary Spirit tract - CHI symptoms ([facility] [id number] Incomplete Problem Co mmon emptying Spirit of bladder - [facility] [id number] [place], [place] [address] joint, Spirit knee, - CHI right [facility] [id number] Pain, Problem Commo n [id number] joint, Spirit ankle, - CHI right [facility] [id number] Detrusor Problem Comm on instabilit Spirit y - [facility] [id number] Vulvovagin Problem Com mon itis Spirit - [facility] [id number] Pelvic Problem Common pain Spirit - [facility] [id number] Urge Problem Common incontinen Spirit ce - [facility] [id number] Chronic Problem Commo n recurrent Spirit pancreatit - CHI is [facility] [id number] Primary Problem 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 Allergies, Adverse Reactions, Alerts Allergy Allergy Status Severity Reaction(s) Onset Inactive Treating Comm ents Source Name Type Date Date Clinician NO KNOWN Allergy Active [facility] Social History Social Habit Start Date Stop Date Quantity Comments Source History SDOH [facility] Alcohol Comment Medical C enter History of Tobacco Common Spirit - Use [facility] History [facility] Alcohol Std Drinks [facility] History [facility] Alcohol Binge Medical [facility] Alcohol intake 2018-11-09 2018-11-09 [facility] non-drinker of Medical Ce nter alcohol (finding) Tobacco use and 2018-11-09 2018-11-09 Smokeless tobacco [facility] exposure 00:00:00 00:00:00 non-user Medical Center History SDOH 2018-11-09 2018-11-[address] [facility] Alcohol Frequency 00:00:00 00:00:00 [facility] Sex [birth year] [facility] 00:00:00 00:00:00 [facility] Smoking Status Start Date Stop Date Source Unknown if ever smoked Common Sp nahed - [facility] Ce nter Never Smoker Common Spirit - [facility] nter Ex-smoker 2018-11-09 00:00:00 2018-11-09 00:00:00 [facility] Medications Ordered Filled Start Stop [...] Com 07-31 Spirit 00:00: - CHI 00 [facility] Kenalog Kenalog 2022-0 No 40mg Common (Triamcinol (Triamcinol 5-26 S pirit one) one) 00:00: - [facility]I [facility] Lidocaine Lidocaine 2022-0 No 10mg Com 07-31 Spirit 00:00: - CHI 00 [facility] Kenalog Kenalog 2022-0 No 40mg Common (Triamcinol (Triamcinol 5-26 S pirit one) one) 00:00: - CHI 00 [facility] Lidocaine Lidocaine 2022-0 No 10mg Com 07-31 Spirit 00:00: - [facility] Kenalog Kenalog 2022-0 No 40mg Common (Triamcinol (Triamcinol 5-26 S pirit one) one) 00:00: - CHI 00 [facility] Lidocaine Lidocaine 2022-0 No 10mg Com mon 07-31 Spirit 00:00: - CHI 00 [facility] Kenalog Kenalog 2022-0 No 40mg Common (Triamcinol (Triamcinol 5-26 S pirit one) one) 00:00: - CHI 00 [facility] Lidocaine Lidocaine 2022-0 No 10mg Com mon 07-31 Spirit 00:00: - [facility] Kenalog Kenalog 2022-0 No 40mg Common (Triamcinol (Triamcinol 5-26 S pirit one) one) 00:00: - CHI 00 [facility] Lidocaine Lidocaine 2-0 No 10mg Com 07-31 Spirit 00:00: - CHI 00 [facility] Kenalog Kenalog 2-0 No 40mg Common (Triamcinol (Triamcinol 5-26 S pirit one) one) 00:00: - CHI 00 [facility] Lidocaine Lidocaine 2-0 No 10mg Com 07-31 Spirit 00:00: - CHI 00 [facility] Kenalog Kenalog 2-0 No 40mg Common (Triamcinol (Triamcinol 5-26 S pirit one) one) 00:00: - CHI 00 [facility] Lidocaine Lidocaine 2-0 No 10mg Com 07-31 Spirit 00:00: - CHI 00 [facility] Kenalog Kenalog 2-0 No 40mg Common (Triamcinol (Triamcinol 5-26 S pirit one) one) 00:00: - CHI [facility] Lidocaine Lidocaine 2-0 No 10mg Com 07-31 Spirit 00:00: - CHI 00 [facility] Kenalog Kenalog 2-0 No 40mg Common (Triamcinol (Triamcinol 5-26 S pirit one) one) 00:00: - CHI 00 [facility] Lidocaine Lidocaine 2-0 No 10mg Com 07-31 Spirit 00:00: - [facility] Kenalog Kenalog 2-0 No 40mg Common (Triamcinol (Triamcinol 5-26 S pirit one) one) 00:00: - CHI 00 [facility] Lidocaine Lidocaine 2-0 No 10mg Com 07-31 Spirit 00:00: - CHI 00 [facility] Kenalog Kenalog 2-0 No 40mg Common (Triamcinol (Triamcinol 5-26 S pirit one) one) 00:00: - CHI 00 [facility] Lidocaine Lidocaine 2022-0 No 10mg Com 07-31 Spirit 00:00: - CHI 00 [facility] Kenalog Kenalog 2-0 No 40mg Common (Triamcinol (Triamcinol 5-26 S pirit one) one) 00:00: - CHI 00 [facility] Lidocaine Lidocaine 2-0 No 10mg Com 07-31 Spirit 00:00: - CHI 00 [facility] Kenalog Kenalog 2-0 No 40mg Common (Triamcinol (Triamcinol 5-26 S pirit one) one) 00:00: - CHI 00 [facility] Lidocaine Lidocaine 2-0 No 10mg Com 07-31 Spirit 00:00: - CHI 00 [facility] Kenalog Kenalog 2-0 No 40mg Common (Triamcinol (Triamcinol 5-26 S pirit one) one) 00:00: - CHI 00 [facility] Lidocaine Lidocaine 2-0 No 10mg Com 07-31 Spirit 00:00: - CHI 00 [facility] Kenalog Kenalog 2-0 No 40mg Common (Triamcinol (Triamcinol 5-26 S pirit one) one) 00:00: - CHI [facility] Lidocaine Lidocaine 2-0 No 10mg Com 07-31 Spirit 00:00: - CHI 00 [facility] Kenalog Kenalog 2-0 No 40mg Common (Triamcinol (Triamcinol 5-26 S pirit one) one) 00:00: - CHI 00 [facility] Lidocaine Lidocaine 2-0 No 10mg Com 07-31 Spirit 00:00: - CHI 00 [facility] Kenalog Kenalog 2-0 No 40mg Common (Triamcinol (Triamcinol 5-26 S pirit one) one) 00:00: - CHI 00 [facility] Lidocaine Lidocaine 2-0 No 10mg Com 07-31 Spirit 00:00: - CHI 00 [facility] Kenalog Kenalog 2-0 No 40mg Common (Triamcinol (Triamcinol 5-26 S pirit one) one) 00:00: - CHI 00 [facility] Lidocaine Lidocaine 2022-0 No 10mg Com 07-31 Spirit 00:00: - CHI 00 [facility] Kenalog Kenalog 2-0 No 40mg Common (Triamcinol (Triamcinol 5-26 S pirit one) one) 00:00: - CHI [facility] amitriptyli amitriptyli 2021-0 No amitriptyl [...] pirit e) e) 00:00: - CHI 00 [facility] Rocephin Rocephin 2020- No 1g Commo n (Ceftriaxon (Ceftriaxon 1-22 S pirit e) e) 00:00: - CHI 00 [facility] Rocephin Rocephin 2020- No 1g Commo n (Ceftriaxon (Ceftriaxon 1-22 S pirit e) e) 00:00: - CHI 00 [facility] Rocephin Rocephin 2020- No 1g Commo n (Ceftriaxon (Ceftriaxon 1-22 S pirit e) e) 00:00: - CHI 00 [facility] Rocephin Rocephin 2020-03 No 1g Commo n (Ceftriaxon (Ceftriaxon 1-22 S pirit e) e) 00:00: - CHI 00 [facility] No 1g Commo n (Ceftriaxon (Ceftriaxon 1-22 S pirit e) e) 00:00: - CHI 00 [facility]-03 No 1g Commo n (Ceftriaxon (Ceftriaxon 1-22 S pirit e) e) 00:00: - CHI 00 [facility] 2020-03 No 1g Commo n (Ceftriaxon (Ceftriaxon 1-22 S pirit e) e) 00:00: - CHI 00 [facility] 2020-03 No 1g Commo n (Ceftriaxon (Ceftriaxon 1-22 S pirit e) e) 00:00: - CHI 00 [facility] 2020-03 No 1g Commo n (Ceftriaxon (Ceftriaxon 1-22 S pirit e) e) 00:00: - CHI 00 [facility] 2020-03 No 1g Commo n (Ceftriaxon (Ceftriaxon 1-22 S pirit e) e) 00:00: - CHI 00 [facility] 2020-03 No 1g Commo n (Ceftriaxon (Ceftriaxon 1-22 S pirit e) e) 00:00: - CHI 00 [facility] No 1g Commo n (Ceftriaxon (Ceftriaxon 1-22 S pirit e) e) 00:00: - CHI 00 [facility] 2020-03 No 1g Commo n (Ceftriaxon (Ceftriaxon 1-22 S pirit e) e) 00:00: - CHI 00 [facility]03 No 1g Commo n (Ceftriaxon (Ceftriaxon 1-22 S pirit e) e) 00:00: - CHI 00 [facility] 2020-03 No 1g Commo n (Ceftriaxon (Ceftriaxon 1-22 S pirit e) e) 00:00: - CHI 00 [facility] 2020-03 No 1g Commo n (Ceftriaxon (Ceftriaxon 1-22 S pirit e) e) 00:00: - CHI 00 [facility] 2020-03 No 1g Commo n (Ceftriaxon (Ceftriaxon 1-22 S pirit e) e) 00:00: - CHI 00 [facility] 2020-03 No 1g Commo n (Ceftriaxon (Ceftriaxon 1-22 S pirit e) e) 00:00: - CHI 00 [facility] 2020-03 No 1g Commo n (Ceftriaxon (Ceftriaxon 1-22 S pirit e) e) 00:00: - CHI 00 [facility] 2020-03 No 1g Commo n (Ceftriaxon (Ceftriaxon 1-22 S pirit e) e) 00:00: - CHI 00 [facility] 2020-03 No 1g Commo n (Ceftriaxon (Ceftriaxon 1-22 S pirit e) e) 00:00: - CHI 00 [facility] 2020-03 No 1g Commo n (Ceftriaxon (Ceftriaxon 1-22 S pirit e) e) 00:00: - CHI 00 [facility] No 1g Commo n (Ceftriaxon (Ceftriaxon 1-22 S pirit e) e) 00:00: - CHI 00 [facility] 2020-03 No 1g Commo n (Ceftriaxon (Ceftriaxon 1-22 S pirit e) e) 00:00: - CHI 00 [facility] 2020-03 No 1g Commo n (Ceftriaxon (Ceftriaxon 1-22 S pirit e) e) 00:00: - CHI 00 [facility] 2020-03 No 1g Commo n (Ceftriaxon (Ceftriaxon 03-29 S pirit e) e) 00:00: - CHI 00 [facility] VESIcare 10 VESIcare 10 2020-032- [...] Center tablet daily . lipase-prot 2019-0 Yes [id number]{ Take [facility] 9-06 lipase} 36,000 [...] Center tablet daily . lipase-prot 2018-0 Yes [id number]{ Take [facility] 9-06 lipase} 36,000 [...] Center tablet daily . lipase-prot 2019-0 Yes [id number]{ Take [facility] 9-06 lipase} 36,000 [...] Center tablet daily . lipase-prot 2019-0 Yes [id number]{ Take [facility] 9-06 lipase} 36,000 [...] Center tablet daily . lipase-prot 2019-0 Yes [id number]{ Take [facility] 9-06 lipase} 36,000 [...] Center tablet daily . lipase-prot 2019-0 Yes [id number]{ Take [facility] 9-06 lipase} 36,000 [...] Center tablet daily . lipase-prot 2019-0 Yes [id number]{ Take [facility] 9-06 lipase} 36,000 Cheyanne es e (CREON) 17:24: units of Medi oralai 36,000-114, [address] 000- [...] Center tablet daily . lipase-prot 2019-0 Yes [id number]{ Take [facility] 9-06 lipase} 36,000 [...] Center tablet daily . lipase-prot 2019-0 Yes [id number]{ Take [facility] 9-06 lipase} 36,000 Cheyanne es e (CREON) 17:24: units of Medi oralia 36,000-114, [address] 000- mouth 3 180,000 (three) unit CpDR times capsule daily with meals. metoprolol 2019-0 Yes 50mg QD Take [address] (LOPRESSOR) 9-06 by mouth Luke s 50 MG 17:24: daily. Medical tablet 08 [place] gabapentin 0 Yes 100mg Q.5D Take 100 [...] pirit one) one) 00:00: - CHI 00 [facility] Kenalog Kenalog 2019-0 No 40mg Common (Triamcinol (Triamcinol 2-18 S pirit one) one) 00:00: - CHI 00 [facility] Kenalog Kenalog 2019-0 No 40mg Common (Triamcinol (Triamcinol 2-18 S pirit one) one) 00:00: - CHI 00 [facility] Kenalog Kenalog 2019-0 No 40mg Common (Triamcinol (Triamcinol 2-18 S pirit one) one) 00:00: - CHI 00 [facility] Kenalog Kenalog 2019-0 No 40mg Common (Triamcinol (Triamcinol 2-18 S pirit one) one) 00:00: - CHI 00 [facility] Kenalog Kenalog 2019-0 No 40mg Common (Triamcinol (Triamcinol 2-18 S pirit one) one) 00:00: - CHI 00 [facility] Kenalog Kenalog 2019-0 No 40mg Common (Triamcinol (Triamcinol 2-18 S pirit one) one) 00:00: - CHI 00 [facility] Kenalog Kenalog 2019-0 No 40mg Common (Triamcinol (Triamcinol 2-18 S pirit one) one) 00:00: - CHI 00 [facility] Kenalog Kenalog 2019-0 No 40mg Common (Triamcinol (Triamcinol 2-18 S pirit one) one) 00:00: - CHI 00 [facility] Kenalog Kenalog 2019-0 No 40mg Common (Triamcinol (Triamcinol 2-18 S pirit one) one) 00:00: - CHI 00 [facility] Kenalog Kenalog 2019-0 No 40mg Common (Triamcinol (Triamcinol 2-18 S pirit one) one) 00:00: - CHI 00 [facility] Kenalog Kenalog 2019-0 No 40mg Common (Triamcinol (Triamcinol 2-18 S pirit one) one) 00:00: - CHI 00 [facility] Kenalog Kenalog 2019-0 No 40mg Common (Triamcinol (Triamcinol 2-18 S pirit one) one) 00:00: - CHI 00 [facility] Kenalog Kenalog 2019-0 No 40mg Common (Triamcinol (Triamcinol 2-18 S pirit one) one) 00:00: - CHI 00 [facility] Kenalog Kenalog 2019-0 No 40mg Common (Triamcinol (Triamcinol 2-18 S pirit one) one) 00:00: - CHI 00 [facility] Kenalog Kenalog 2019-0 No 40mg Common (Triamcinol (Triamcinol 2-18 S pirit one) one) 00:00: - CHI 00 [facility] Kenalog Kenalog 2019-0 No 40mg Common (Triamcinol (Triamcinol 2-18 S pirit one) one) 00:00: - CHI 00 [facility] Kenregulo Kenalog 2019-0 No 40mg Common (Triamcinol (Triamcinol 2-18 S pirit one) one) 00:00: - CHI 00 [facility] Kenregulo Kenalog 2019-0 No 40mg Common (Triamcinol (Triamcinol 2-18 S pirit one) one) 00:00: - CHI 00 [facility] Kenregulo Kenalog 2019-0 No 40mg Common (Triamcinol (Triamcinol 2-18 S pirit one) one) 00:00: - CHI 00 [facility] Kenregulo Kenalog 2019-0 No 40mg Common (Triamcinol (Triamcinol 2-18 S pirit one) one) 00:00: - CHI 00 [facility] Kenalog Kenalog 2019-0 No 40mg Common (Triamcinol (Triamcinol 2-18 S pirit one) one) 00:00: - CHI 00 [facility] Kenalog Kenalog 2019-0 No 40mg Common (Triamcinol (Triamcinol 2-18 S pirit one) one) 00:00: - CHI 00 [facility] Kenalog Kenalog 2019-0 No 40mg Common (Triamcinol (Triamcinol 2-18 S pirit one) one) 00:00: - CHI 00 [facility] Kenalog Kenalog 2019-0 No 40mg Common (Triamcinol (Triamcinol 2-18 S pirit one) one) 00:00: - CHI 00 [facility] Kenalog Kenalog 2019-0 No 40mg Common (Triamcinol (Triamcinol 2-18 S pirit one) one) 00:00: - CHI 00 [facility] Kenalog Kenalog 2019-0 No 40mg Common (Triamcinol (Triamcinol 2-18 S pirit one) one) 00:00: - CHI 00 [facility] Gentamicin Gentamicin 2018-1 No 80mg C ommon 80mg 80mg 0-30 Spirit 00:00: - CHI 00 [facility] Gentamicin Gentamicin 2017-1 No 80mg C ommon 80mg 80mg 0-30 Spirit 00:00: - CHI 00 [facility] Gentamicin Gentamicin 2017-1 No 80mg C ommon 80mg 80mg 0-30 Spirit 00:00: - CHI [facility] Gentamicin Gentamicin 2017-1 No 80mg C ommon 80mg 80mg 0-30 Spirit 00:00: - CHI 00 [facility] Gentamicin Gentamicin 2017-1 No 80mg C ommon 80mg 80mg 0-30 Spirit 00:00: - CHI 00 [facility] Gentamicin Gentamicin 2017-1 No 80mg C ommon 80mg 80mg 0-30 Spirit 00:00: - CHI 00 [facility] Gentamicin Gentamicin 2017-1 No 80mg C ommon 80mg 80mg 0-30 Spirit 00:00: - CHI 00 [facility] Gentamicin Gentamicin 2018-1 No 80mg C ommon 80mg 80mg 0-30 Spirit 00:00: - CHI 00 [facility] Gentamicin Gentamicin 2017-1 No 80mg C ommon 80mg 80mg 0-30 Spirit 00:00: - CHI 00 [facility] Gentamicin Gentamicin 2017-1 No 80mg C ommon 80mg 80mg 0-30 Spirit 00:00: - CHI 00 [facility] Gentamicin Gentamicin 2017-1 No 80mg C ommon 80mg 80mg 0-30 [facility] 00:[facility]: - [facility] 00 [facility] Gentamicin Gentamicin 2017-1 No 80mg C ommon 80mg 80mg 0-30 [facility] 00:00: - [facility] Gentamicin Gentamicin 2017-1 No 80mg C ommon 80mg 80mg 0-30 [facility] 00:00: - [facility] 00 [facility] Gentamicin Gentamicin 2018-1 No 80mg C ommon 80mg 80mg 0-30 [facility] 00:00: - [facility] Gentamicin Gentamicin 2017-1 No 80mg C ommon 80mg 80mg 0-30 [facility] 00:00: - [facility] Gentamicin Gentamicin 2017-1 No 80mg C ommon 80mg 80mg 0-30 [facility] 00:00: - [facility] Gentamicin Gentamicin 2017- No 80mg C ommon 80mg 80mg 0-30 [facility] 00:00: - [facility] Gentamicin Gentamicin 2017- No 80mg C ommon 80mg 80mg 0-30 [facility] 00:00: - [facility] Gentamicin Gentamicin 2017- No 80mg C ommon 80mg 80mg 0-30 [facility] 00:00: - [facility] Gentamicin Gentamicin 2017- No 80mg C ommon 80mg 80mg 0-30 [facility] 00:00: - [facility] Gentamicin Gentamicin 2017- No 80mg C ommon 80mg 80mg 0-30 [facility] 00:00: - [facility] Gentamicin Gentamicin 2017-1 No 80mg C ommon 80mg 80mg 0-30 [facility] 00:00: - [facility] Gentamicin Gentamicin 2017- No 80mg C ommon 80mg 80mg 0-30 [facility] 00:00: - [facility] Gentamicin Gentamicin 2017- No 80mg C ommon 80mg 80mg 0-30 [facility] 00:00: - [facility] Gentamicin Gentamicin 2017- No 80mg C ommon 80mg 80mg 0-30 [facility] 00:00: - [facility] Gentamicin Gentamicin 2017-1 No 80mg C ommon 80mg 80mg 0-30 [facility] 00:00: - [facility] Gentamicin Gentamicin 2017-1 No 80mg C ommon 80mg 80mg 0-30 [facility] 00:00: - [facility] Gentamicin Gentamicin 2018-0 No 240mg Common 80mg 80mg 7 [facility] 00:00: - [facility] Gentamicin Gentamicin 2018-0 No 240mg Common 80mg 80mg 7 [facility] 00:00: - [facility] Gentamicin Gentamicin 2018-0 No 240mg Common 80mg 80mg 09-30 [facility] 00:00: - [facility] Gentamicin Gentamicin 2018-0 No 240mg Common 80mg 80mg 09-30 [facility] 00:00: - [facility] Gentamicin Gentamicin 2018-0 No 240mg Common 80mg 80mg 09-30 [facility] 00:00: - [facility] Gentamicin Gentamicin 2018-0 No 240mg Common 80mg 80mg 09-30 [facility] 00:00: - [facility] Gentamicin Gentamicin 2018-0 No 240mg Common 80mg 80mg 09-30 [facility] 00:00: - [facility] Gentamicin Gentamicin 2018-0 No 240mg Common 80mg 80mg 09-30 [facility] 00:00: - [facility] Gentamicin Gentamicin 2018-0 No 240mg Common 80mg 80mg 09-30 [facility] 00:00: - [facility] Gentamicin Gentamicin 2018-0 No 240mg Common 80mg 80mg 09-30 [facility] 00:00: - [facility] Gentamicin Gentamicin 2018-0 No 240mg Common 80mg 80mg 09-30 [facility] 00:00: - [facility] Gentamicin Gentamicin 2018-0 No 240mg Common 80mg 80mg 09-30 [facility] 00:00: - [facility] Gentamicin Gentamicin 2018-0 No 240mg Common 80mg 80mg 09-30 [facility] 00:00: - [facility] Gentamicin Gentamicin 2018-0 No 240mg Common 80mg 80mg 09-30 [facility] 00:00: - [facility] Gentamicin Gentamicin 2018-0 No 240mg Common 80mg 80mg 09-30 [facility] 00:00: - [facility] Gentamicin Gentamicin 2018-0 No 240mg Common 80mg 80mg 09-30 [facility] 00:00: - [facility] Gentamicin Gentamicin 2018-0 No 240mg Common 80mg 80mg 09-30 [facility] 00:00: - [facility] Gentamicin Gentamicin 2018-0 No 240mg Common 80mg 80mg 09-30 [facility] 00:00: - [facility] Gentamicin Gentamicin 2018-0 No 240mg Common 80mg 80mg 09-30 [facility] 00:00: - [facility] Gentamicin Gentamicin 2018-0 No 240mg Common 80mg 80mg 09-30 [facility] 00:00: - [facility] Gentamicin Gentamicin 2018-0 No 240mg Common 80mg 80mg 09-30 [facility] 00:00: - [facility] Gentamicin Gentamicin 2018-0 No 240mg Common 80mg 80mg 09-30 [facility] 00:00: - [facility] Gentamicin Gentamicin 2018-0 No 240mg Common 80mg 80mg 09-30 [facility] 00:00: - [facility] Gentamicin Gentamicin 2018-0 No 240mg Common 80mg 80mg 09-30 [facility] 00:00: - [facility] Gentamicin Gentamicin 2018-0 No 240mg Common 80mg 80mg 09-30 [facility] 00:00: - [facility] Gentamicin Gentamicin 2018-0 No 240mg Common 80mg 80mg 09-30 [facility] 00:00: - [facility] Gentamicin Gentamicin 2018-0 No 240mg Common 80mg 80mg 09-30 [facility] 00:00: - [facility] HYDROcodone HYDROcodone No 1{table QID HYDROcodon -Acetaminop -Acetaminop t_as_ne e-Acetamin hen 7.5-325 hen 7.5-325 eded} ophen MG MG 7.5-325 MG Famotidine Famotidine No 1{table BID Famotidine 10 MG 10 MG t_as_ne 10 MG eded} Culturelle Culturelle No Culturelle - - - Protonix 40 Protonix 40 No 1{table QD Protonix MG MG t} 40 MG Creon Creon No TID Creon [id number] [phone] UNIT UNIT 0 UNIT Neurontin Neurontin No [...] 40 MG Creon Creon No TID Creon 35091-85491 [id number] [phone] UNIT UNIT 0 UNIT Neur[place]in Neurontin No [...] re_bedt rosalia} Creon Creon No TID Creon [id number] [phone] [phone] UNIT UNIT 0 UNIT HYDROcodone HYDROcodone No 1{table QID HYDROcodon -Acetaminop -Acetaminop t_as_ne e-Acetamin hen 7.5-325 hen 7.5-325 eded} ophen MG MG 7.5-325 MG Famotidine Famotidine No 1{table BID Famotidine 10 MG 10 MG t_as_ne 10 MG eded} Culturelle Culturelle No Culturelle - - - Protonix 40 Protonix 40 No 1{table QD Protonix MG MG t} 40 MG Creon Creon No TID Creon [id number] [phone] [phone] UNIT UNIT 0 UNIT Neurontin Neurontin No [...] 40 MG Creon Creon No TID Creon 74481-93012 [phone] [phone] UNIT UNIT 0 UNIT Neurontin Neurontin No [...] 40 MG Creon Creon No TID Creon 75512-68627 43055-68952 [address] UNIT UNIT 0 UNIT Protonix 40 Protonix [...] - - Creon Creon No TID Creon 10738-76988 35165-06157 [phone] UNIT UNIT 0 UNIT Protonix 40 Protonix [...] MG eded} Creon Creon No TID Creon 66159-75806 [phone] [phone] UNIT UNIT 0 UNIT Pantoprazol Pantoprazol No [...] e_eveni ng} Creon Creon No TID Creon 94040-65150 [phone] [address] UNIT UNIT 0 UNIT Metoprolol Metoprolol No [...] e_eveni ng} Creon Creon No TID Creon 83218-02119 [phone] [phone] UNIT UNIT 0 UNIT Metoprolol Metoprolol No [...] e_eveni ng} Creon Creon No TID Creon 70715-10956 [phone] 713[address] UNIT UNIT 0 UNIT Metoprolol Metoprolol No [...] re_bedt rosalia} Creon Creon No TID Creon 86029-71190 [phone] [phone] UNIT UNIT 0 UNIT Metoprolol Metoprolol No [...] re_bedt rosalia} Creon Creon No TID Creon 44237-27687 50208-44288 9[address] UNIT UNIT 0 UNIT Metoprolol Metoprolol No [...] re_bedt rosalia} Creon Creon No TID Creon 41565-59336 [phone] [address] UNIT UNIT 0 UNIT Metoprolol Metoprolol No [...] 40 MG Creon Creon No TID Creon 69042-28324 10093-50443 [address] UNIT UNIT 0 UNIT cloNIDine cloNIDine No [...] 40 MG Creon Creon No TID Creon 58753-22073 39650-67999 [address] UNIT UNIT 0 UNIT cloNIDine cloNIDine No [...] 40 MG Creon Creon No TID Creon 48048-04143 [phone] 404[address]-9951 UNIT UNIT 0 UNIT traZODone traZODone No [...] 40 MG Creon Creon No TID Creon 53301-40690 98574-01610 [phone] UNIT UNIT 0 UNIT cloNIDine cloNIDine No [...] MG dtime} Creon Creon No TID Creon 13085-18865 [phone] 6[address] UNIT UNIT 0 UNIT Citalopram Citalopram No [...] MG dtime} Creon Creon No TID Creon 60755-32148 85259-24502 [phone] UNIT UNIT 0 UNIT Citalopram Citalopram No [...] MG dtime} Creon Creon No TID Creon 48785-74740 55030-55318 [phone] UNIT UNIT 0 UNIT Citalopram Citalopram No [...] MG dtime} Creon Creon No TID Creon 61025-89491 [phone] [address] UNIT UNIT 0 UNIT traZODone traZODone No [...] 40 MG Creon Creon No TID Creon 25347-05273 [phone] 52959-0358 UNIT UNIT 0 UNIT Zestoretic Zestoretic No [...] MG eded} Creon Creon No TID Creon 43166-91278 70107-22863 [phone] UNIT UNIT 0 UNIT Citalopram Citalopram No [...] MG eded} Creon Creon No TID Creon 64562-54797 84229-24038 [address] UNIT UNIT 0 UNIT Citalopram Citalopram No [...] MG eded} Creon Creon No TID Creon 97948-10610 32933-34890 [phone] UNIT UNIT 0 UNIT Citalopram Citalopram No [...] MG eded} Creon Creon No TID Creon 54982-49609 57119-51074 [phone] UNIT UNIT 0 UNIT Citalopram Citalopram No [...] MG eded} Creon Creon No TID Creon 51409-55238 68101-19510 [phone] UNIT UNIT 0 UNIT Citalopram Citalopram No [...] MG eded} Creon Creon No TID Creon 70505-92440 [phone] [phone] UNIT UNIT 0 UNIT Citalopram Citalopram No [...] 50 MG Creon Creon No TID Creon 81879-84319 [phone] [address] UNIT UNIT 0 UNIT Culturelle Culturelle No [...] 50 MG Creon Creon No TID Creon 44990-88467 19000-21962 7[address] UNIT UNIT 0 UNIT Culturelle Culturelle No [...] 40 MG Creon Creon No TID Creon 74197-74657 46818-37485 [address] UNIT UNIT 0 UNIT Metoprolol Metoprolol No 1{table BID Metoprolol Tartrate 50 Tartrate 50 t_with_ Tartrate MG MG food} 50 MG Metoprolol Metoprolol No 1{table BID Metoprolol Tartrate 50 Tartrate 50 t_with_ Tartrate MG MG food} 50 MG Creon Creon No TID Creon 34580-73599 51559-10758 33538[address]6720 UNIT UNIT 0 UNIT Culturelle Culturelle No [...] 40 MG Creon Creon No TID Creon 64857-99695 15544-90107 0[address] UNIT UNIT 0 UNIT HYDROcodone HYDROcodone No [...] 40 MG Creon Creon No TID Creon 57217-55105 82881-47315 [phone] UNIT UNIT 0 UNIT Neurontin Neurontin No [...] 40 MG Creon Creon No TID Creon 15288-25973 43203-43552 [address] UNIT UNIT 0 UNIT Neurontin Neurontin No [...] 40 MG Creon Creon No TID Creon 08104-26611 09798-02747 13535-9533 UNIT UNIT 0 UNIT Neurontin Neurontin No [...] 40 MG Creon Creon No TID Creon 59839-56159 92809-36109 [address] UNIT UNIT 0 UNIT Neurontin Neurontin No [...] 40 MG Creon Creon No TID Creon 76633-09429 72654-33502 [phone] UNIT UNIT 0 UNIT Neurontin Neurontin No 1{capsu QD Neurontin 300 MG 300 MG le_befo 300 MG re_bedt rosalia} Clotrimazol Clotrimazol 2020- No Dmitry 1 Common e e 10-12 [facility] applicatio [facility] 00:00 n to - [facility] :00 affected [facility] Immunizations Ordered Immunization Filled Immunization Date Status Commen ts Source Name Name Mina Enriquez 2018-04-25 Completed [facility] (Triamcinolone) (Triamcinolone) 09:55:00 - [facility] Mina Enriquez 2018-04-25 Completed [facility] (Triamcinolone) (Triamcinolone) 09:55:00 - [facility] Mina Enriquez 2018-04-25 Completed [facility] (Triamcinolone) (Triamcinolone) 09:55:00 - [facility] Mina Enriquez 2018-04-25 Completed [facility] (Triamcinolone) (Triamcinolone) 09:55:00 - [facility] Mina Enriquez 2018-04-25 Completed [facility] (Triamcinolone) (Triamcinolone) 09:55:00 - [facility] Mina Enriquez 2018-04-25 Completed [facility] (Triamcinolone) (Triamcinolone) 09:55:00 - [facility] Mina Enriquez 2018-04-25 Completed [facility] (Triamcinolone) (Triamcinolone) 09:55:00 - [facility] Gentamicin 80mg Gentamicin 80mg 2018-01-04 Completed Comm on [facility] 11:59:00 - [facility] Gentamicin 80mg Gentamicin 80mg 2018-01-04 Completed Comm on [facility] 11:59:[address] [facility] Gentamicin 80mg Gentamicin 80mg 2018-01-04 Completed [facility] on [facility] 11:59:[address] [facility] Gentamicin 80mg Gentamicin 80mg 2018-01-04 Completed [facility] on [facility] 11:59:[address] [facility] Gentamicin 80mg Gentamicin 80mg 2018-01-04 Completed [facility] on [facility] 11:59:[address] [facility] Gentamicin 80mg Gentamicin 80mg 2018-01-04 Completed [facility] on [facility] 11:59:[address] [facility] Gentamicin 80mg Gentamicin 80mg 2018-01-04 Completed [facility] on [facility] 11:59:[address] [facility] Gentamicin 80mg Gentamicin 80mg 2017-09-30 Completed [facility] on [facility] 15:54:[address] [facility] Gentamicin 80mg Gentamicin 80mg 2017-09-30 Completed [facility] on [facility] 15:54:[address] [facility] Gentamicin 80mg Gentamicin 80mg 2017-09-30 Completed [facility] 15:54:00 - [facility] Gentamicin 80mg Gentamicin 80mg 2017-09-30 Completed [facility] 15:54:00 - [facility] Gentamicin 80mg Gentamicin 80mg 2017-09-30 Completed [facility] on [facility] 15:54:[address] [facility] Gentamicin 80mg Gentamicin 80mg 2017-09-30 Completed [facility] on [facility] 15:54:[address] [facility] Gentamicin 80mg Gentamicin 80mg 2017-09-30 Completed [facility] on [facility] 15:54:[address] [facility] Vital Signs Vital Name Observation Time Observation Value Comments Source height 2022-03-11 13:00:00 61 [in_i] [facility] weight 2022-03-11 13:00:00 170 [lb_av] [facility] temperature 2022-03-11 13:00:00 97.3 [degF] [facility] bmi 2022-03-11 13:00:00 32.12 kg/m2 [facility] oximetry 2022-03-11 13:00:00 96 % [facility] respiratory rate 2022-03-11 13:00:00 16 /min Comm on [facility] blood pressure 2022-03-11 13:00:00 138 mm[Hg] [facility] - systolic [facility] blood pressure 2022-03-11 13:00:00 96 mm[Hg] [facility] - diastolic [facility] blood pressure 2022-02-19 09:45:00 132 mm[Hg] [facility] systolic [facility] blood pressure 2022-02-19 09:45:00 68 mm[Hg] [facility] diastolic [facility] height 2022-02-19 09:45:00 61 [in_i] [facility] weight 2022-02-19 09:45:00 165 [lb_av] [facility] temperature 2022-02-19 09:45:00 97.8 [degF] Common [facility] bmi 2022-02-19 09:45:00 31.17 kg/m2 Common [facility] oximetry 2022-02-19 09:45:00 96 % Common [facility] respiratory rate 2022-02-19 09:45:00 18 /min Comm on [facility] height 2022-01-14 11:00:00 61 [in_i] Common [facility] weight 2022-01-14 11:00:00 165 [lb_av] Common [facility] temperature 2022-01-14 11:00:00 97.8 [degF] [facility] bmi 2022-01-14 11:00:00 31.17 kg/m2 [facility] oximetry 2022-01-14 11:00:00 97 % [facility] respiratory rate 2022-01-14 11:00:00 16 /min [facility] on [facility] blood pressure 2022-01-14 11:00:00 142 mm[Hg] Common [facility] - systolic [facility] blood pressure 2022-01-14 11:00:00 89 mm[Hg] [facility] - diastolic [facility] height 2021-08-01 13:30:00 61 [in_i] [facility] weight 2021-08-01 13:30:00 181 [lb_av] Common [facility] temperature 2021-08-01 13:30:00 98 [degF] [facility] bmi 2021-08-01 13:30:00 34.2 kg/m2 [facility] blood pressure 2021-08-01 13:30:00 136 mm[Hg] Common [facility] - systolic [facility] blood pressure 2021-08-01 13:30:00 76 mm[Hg] [facility] - diastolic [facility] height 2021-07-31 09:30:00 61 [in_i] [facility] weight 2021-07-31 09:30:00 180 [lb_av] [facility] - [facility] bmi 2021-07-31 09:30:00 34.01 kg/m2 [facility] - [facility] blood pressure 2021-07-31 09:30:00 144 mm[Hg] [facility] - systolic [facility] blood pressure 2021-07-31 09:30:00 80 mm[Hg] [facility] - diastolic [facility] height 2021-07-25 11:30:00 61 [in_i] [facility] weight 2021-07-25 11:30:00 180 [lb_av] [facility] - [facility] temperature 2021-07-25 11:30:00 98.1 [degF] [facility] bmi 2021-07-25 11:30:00 34.01 kg/m2 [facility] oximetry 2021-07-25 11:30:00 96 % [facility] S pirit [facility] respiratory rate 2021-07-25 11:30:00 16 /min [facility] - [facility] blood pressure 2021-07-25 11:30:00 146 mm[Hg] [facility] - systolic [facility] blood pressure 2021-07-25 11:30:00 88 mm[Hg] [facility] - diastolic [facility] height 2021-04-21 14:15:00 61 [in_i] [facility] weight 2021-04-21 14:15:00 180 [lb_av] [facility] temperature 2021-04-21 14:15:00 97.6 [degF] [facility] - [facility] bmi 2021-04-21 14:15:00 34.01 kg/m2 [facility] - [facility] oximetry 2021-04-21 14:15:00 94 % [facility] - [facility] respiratory rate 2021-04-21 14:15:00 18 /min [facility] blood pressure 2021-04-21 14:15:00 136 mm[Hg] [facility] - systolic [facility] blood pressure 2021-04-21 14:15:00 68 mm[Hg] [facility] - diastolic [facility] height 2021-04-14 14:00:00 61 [in_i] [facility] - [facility] weight 2021-04-14 14:00:00 180 [lb_av] [facility] - [facility] bmi 2021-04-14 14:00:00 34.01 kg/m2 [facility] - [facility] blood pressure 2021-04-14 14:00:00 132 mm[Hg] Common [facility] - systolic [facility] blood pressure 2021-04-14 14:00:00 80 mm[Hg] [facility] - diastolic [facility] height 2021-03-06 16:30:00 61 [in_i] Common [facility] weight 2021-03-06 16:30:00 180 [lb_av] [facility] - [facility] temperature 2021-03-06 16:30:00 97.8 [degF] [facility] bmi 2021-03-06 16:30:00 34.01 kg/m2 [facility] S pirit [facility] oximetry 2021-03-06 16:30:00 99 % [facility] - [facility] respiratory rate 2021-03-06 16:30:00 18 /min Comm on [facility] blood pressure 2021-03-06 16:30:00 135 mm[Hg] Common [facility] - systolic [facility] blood pressure 2021-03-06 16:30:00 90 mm[Hg] [facility] - diastolic [facility] height 2021-01-27 16:20:00 61 [in_i] [facility] weight 2021-01-27 16:20:00 180 [lb_av] [facility] temperature 2021-01-27 16:20:00 97.6 [degF] [facility] bmi 2021-01-27 16:20:00 34.01 kg/m2 [facility] oximetry 2021-01-27 16:20:00 98 % [facility] blood pressure 2021-01-27 16:20:00 132 mm[Hg] [facility] - systolic [facility] blood pressure 2021-01-27 16:20:00 68 mm[Hg] [facility] - diastolic [facility] height 2020-12-25 14:45:00 61 [in_i] [facility] weight 2020-12-25 14:45:00 180 [lb_av] [facility] temperature 2020-12-25 14:45:00 97.6 [degF] [facility] bmi 2020-12-25 14:45:00 34.01 kg/m2 [facility] oximetry 2020-12-25 14:45:00 97 % [facility] blood pressure 2020-12-25 14:45:00 147 mm[Hg] [facility] - systolic [facility] blood pressure 2020-12-25 14:45:00 84 mm[Hg] [facility] - diastolic [facility] height 2020-12-02 15:40:00 61 [in_i] [facility] weight 2020-12-02 15:40:00 180 [lb_av] [facility] temperature 2020-12-02 15:40:00 97.8 [degF] [facility] bmi 2020-12-02 15:40:00 34.01 kg/m2 [facility] oximetry 2020-12-02 15:40:00 96 % [facility] - [facility] blood pressure 2020-12-02 15:40:00 184 mm[Hg] [facility] - systolic [facility] blood pressure 2020-12-02 15:40:00 104 mm[Hg] [facility] - diastolic [facility] height 2020-10-16 13:40:00 61 [in_i] [facility] weight 2020-10-16 13:40:00 178 [lb_av] [facility] temperature 2020-10-16 13:40:00 97.4 [degF] [facility] bmi 2020-10-16 13:40:00 33.63 kg/m2 [facility] - [facility] blood pressure 2020-10-16 13:40:00 128 mm[Hg] [facility] - systolic [facility] blood pressure 2020-10-16 13:40:00 76 mm[Hg] [facility] - diastolic [facility] height 2020-10-16 16:30:00 61 [in_i] [facility] - [facility] weight 2020-10-16 16:30:00 180 [lb_av] [facility] temperature 2020-10-16 16:30:00 97.7 [degF] [facility] bmi 2020-10-16 16:30:00 34.01 kg/m2 [facility] pirit [facility] oximetry 2020-10-16 16:30:00 97 % [facility] blood pressure 2020-10-16 16:30:00 162 mm[Hg] [facility] - systolic [facility] blood pressure 2020-10-16 16:30:00 96 mm[Hg] [facility] - diastolic [facility] Procedures This patient has no known procedures. Plan of Care Planned Activity Planned Date Details Comments Source Future Scheduled 2020-11-[address] [facility] Test 00:00:00 (Season Ended) [code = [facility] INFLUENZA VACCINE (Season Ended)] Future Scheduled [...] Test 00:00:00 ([address] [facility] [id number] PCV13) [code = PNEUMOCOCCAL 65+ YRS (1 of 1 - [id number] PCV13)] Future Scheduled 2012-12-28 PNEUMOCOCCAL 65+ YRS [facility] Test 00:00:00 ([address] [facility] [id number] PCV13) [code = PNEUMOCOCCAL 65+ YRS (1 of 1 - [id number] PCV13)] Future Scheduled 2012-12-28 PNEUMOCOCCAL 65+ Y[address] [facility] Test 00:00:00 ([address] [facility] [id number] PCV13) [code = PNEUMOCOCCAL 65+ YRS (1 of 1 - [id number] PCV13)] Future Scheduled 1997-12-28 SHINGLES VACCINES (1 [...] [facility] [code = 943592210] Future Scheduled [address] [facility] colon (procedure) [code = 210170041] Future Scheduled [address] [facility] 00:[facility]:00 [facility] breast (procedure) [code = 155819027] Future Scheduled [address] [facility]:00 [facility] (procedure) [code = 020980848] Future Scheduled [address] [facility] 00:[facility]:00 [facility] breast (procedure) [code = 044660669] Future Scheduled [address] [facility] 00:[facility]:00 [facility] colon (procedure) [code = 586454538] Encounters Start End Encounter Admission Attending Care Care Encounter Source Date/Time Date/Time Type Type Clinicians Facility Department ID 2022-08-05 Outpatient [facility], [facility] [id number] Common 10:09:00 Dmitry [id number] [facility] 2022-07-31 Outpatient Powell, STLMLC STLC [id number] Common 09:48:00 Dmitry 11295 [facility] 2022-06-15 Outpatient Powell, STLMLC STLMLC [id number] Common 10:10:00 Dmitry 81394 [facility] 2022-05-21 Outpatient Powell, STLMLC STLMLC [id number] Common 13:22:01 Dmitry 37289 [facility] 2021-07-31 Outpatient Powell, STLMLC STLMLC [id number] Common 09:46:01 Dmitry 80921 [facility] 2021-04-02 Outpatient Powell, STLMLC STLMLC [id number] Common 14:02:15 Dmitry 43970 [facility] 2021-04-02 Outpatient Powell, STLMLC STLMLC [id number] Common 14:01:19 Dmitry 33178 [facility] 2021-04-02 Outpatient Powell, STLMLC STLMLC [id number] Common 13:38:40 Dmitry 84371 [facility] 2021-04-02 Outpatient Powell, STLMLC STLMLC [id number] Common 13:36:48 Dmitry 11108 [facility] 2021-04-02 Outpatient Powell, STLMLC STLMLC [id number] Common 13:28:35 Dmitry 35740 [facility] 2021-04-02 Outpatient Powell, STLMLC STLMLC [id number] Common 13:28:20 Dmitry 21620 [facility] 2021-04-02 Outpatient Powell, STLMLC STLC [id number] Common 13:04:41 Dmitry 62882 [facility] 2021-04-02 Outpatient Powell, STLMLC STLC [id number] Common 12:55:20 Dmitry 46854 [facility] 2021-04-02 Outpatient Powell, STLMLC STLC [id number] Common 12:37:32 Dmitry 63657 [facility] 2021-04-02 Outpatient Powell, STLMLC STLC [id number] Common 11:40:56 Dmitry 87036 [facility] 2021-04-02 Outpatient Powell, STLMLC STLC [id number] Common 11:32:24 Dmitry 41972 [facility] 2021-04-02 Outpatient Powell, STLMLC STLC [id number] Common 10:59:26 Dmitry 76814 [facility] 2021-04-02 Outpatient Powell, STLMLC STLC [id number] Common 10:59:05 Dmitry 33422 [facility] 2020-12-15 Inpatient UR [facility] Urology [id number] [facility] 01:17:39 [facility] 2022-05-14 2022-05-14 Outpatient Ogweno_B DMG DMG [id number] [facility] 00:00:00 00:00:00 0309 [facility] 2022-05-14 2022-05-14 Outpatient Ogweno_B DMG [facility] [id number] [facility]oted 00:00:00 00:00:00 0506 [facility] 2022-03-26 2022-03-26 Outpatient Ogweno_B DMG [facility] [id number] [facility] 00:00:00 00:00:00 0217 [facility] 2022-03-26 2022-03-26 Outpatient Ogweno_B DMG [facility] [id number] [facility] 00:00:00 00:00:00 0119 [facility] 2022-03-24 2022-03-24 (TEL) STLMLC STLMLC [id number] Co mmon 00:00:00 00:00:00 [facility] 2022-03-11 2022-03-11 OFFICE STLMLC STLMLC [id number] Co mmon 00:00:00 00:00:00 VISIT Spirit ESTAB PT - [facility]I LEVEL 4 [facility] 2022-03-06 2022-03-06 (TEL) STLMLC STLMLC [id number] Co mmon 00:00:00 00:00:00 [facility] 2022-02-23 2022-02-23 Outpatient DMG [id number] [facility] 00:00:00 00:00:00 1219 [facility] 2022-02-19 2022-02-19 OFFICE STLMLC STLMLC [id number] Co mmon 00:00:00 00:00:00 VISIT EST Spir it PT LEVEL 3 - CHI [facility] 2022-01-14 2022-01-14 OFFICE STLMLC STLMLC [id number] Co mmon 00:00:00 00:00:00 VISIT EST Spir it PT LEVEL 3 - CHI [facility] 2021-12-23 2021-12-23 (TEL) STLMLC STLMLC [id number] Co mmon 00:00:00 00:00:00 [facility] 2021-12-19 2021-12-19 OFFICE STLMLC STLMLC [id number] Co mmon 00:00:00 00:00:00 VISIT Spirit ESTAB PT - [facility]I LEVEL 1 [facility] 2021-10-10 2021-10-10 Phone Only STLMLC STLMLC [id number] Common 00:00:00 00:00:00 Visit for Spir it Est MCR - CHI [facility] 2021-10-01 2021-10-01 (TEL) STLMLC STLMLC [id number] Co mmon 00:00:00 00:00:00 [facility] 2021-09-23 2021-09-23 (TEL) STLMLC STLMLC [id number] Co mmon 00:00:00 00:00:00 [facility] 2021-09-22 2021-09-22 (TEL) STLMLC STLMLC [id number] Co mmon 00:00:00 00:00:00 [facility] 2021-09-22 2021-09-22 OFFICE STLMLC STLMLC [id number] Co mmon 00:00:00 00:00:00 VISIT Spirit ESTAB PT - CHI LEVEL 1 [facility] 2021-09-19 2021-09-19 Outpatient DMG DMG [id number] [facility] 03:36:00 03:36:00 0715 [facility] 2021-08-15 2021-08-15 (TEL) STLMLC STLMLC [id number] Co mmon 00:00:00 00:00:00 [facility] 2021-08-12 2021-08-12 (TEL) STLMLC STLMLC [id number] Co mmon 00:00:00 00:00:00 [facility] 2021-08-01 2021-08-01 (TEL) STLMLC STLMLC [id number] Co mmon 00:00:00 00:00:00 [facility] 2021-08-01 2021-08-01 (EST. STLMLC STLMLC [id number] Co mmon 00:00:00 00:00:00 VIDEO) EST Spi rit VIRTUAL - CHI VIDEO [facility] 2021-07-31 2021-07-31 (TEL) STLMLC STLMLC [id number] Co mmon 00:00:00 00:00:00 [facility] 2021-07-31 2021-07-31 OFFICE STLMLC STLMLC [id number] Co mmon 00:00:00 00:00:00 VISIT EST Spir it PT LEVEL [address] [facility] 2021-07-30 2021-07-30 (TEL) STLMLC STLMLC [id number] Co mmon 00:00:00 00:00:00 [facility] 2021-07-25 2021-07-25 OFFICE STLMLC STLMLC [id number] Co mmon 00:00:00 00:00:00 VISIT Spirit ESTAB PT - [facility] LEVEL 4 [facility] 2021-07-22 2021-07-22 (TEL) STLMLC STLMLC [id number] Co mmon 00:00:00 00:00:00 [facility] 2021-07-14 2021-07-14 (TEL) STLMLC STLMLC [id number] Co mmon 00:00:00 00:00:00 [facility] 2021-07-12 2021-07-12 (TEL) STLMLC STLMLC [id number] Co mmon 00:00:00 00:00:00 [facility] 2021-07-05 2021-07-05 Outpatient DMG [facility] [id number] [facility] 09:00:00 09:00:00 0430 [facility] 2021-05-20 2021-05-20 Outpatient DMG [facility] [id number] [facility] 09:01:00 09:01:00 0315 [facility] 2021-05-14 2021-05-14 (PROC) STLMLC STLMLC [id number] Co mmon 00:00:00 00:00:00 Procedure [address] [facility] 2021-05-07 2021-05-07 (TEL) STLMLC STLMLC [id number] Co mmon 00:00:00 00:00:00 [facility] 2021-05-07 2021-05-07 OFFICE STLMLC STLMLC [id number] Co mmon 00:00:00 00:00:00 VISIT [facility] PT - CHI LEVEL 4 [facility] 2021-05-06 2021-05-06 (TEL) STLMLC STLMLC [id number] Co mmon 00:00:00 00:00:00 [facility] 2021-04-21 2021-04-21 (TEL) STLMLC STLMLC [id number] Co mmon 00:00:00 00:00:00 [facility] 2021-04-21 2021-04-21 OFFICE STLMLC STLMLC [id number] Co mmon 00:00:00 00:00:00 VISIT EST Spir it PT LEVEL 3 - [facility] 2021-04-18 2021-04-18 (TEL) STLMLC STLMLC [id number] Co mmon 00:00:00 00:00:00 [facility] 2021-04-16 2021-04-16 (TEL) STLMLC STLMLC [id number] Co mmon 00:00:00 00:00:00 [facility] 2021-04-14 2021-04-14 (FIRE CAPTAIN) New STLMLC STLMLC [id number] C ommon 00:00:00 00:00:00 Patient [facility] 2021-04-10 2021-04-10 (TEL) STLMLC STLMLC [id number] Co mmon 00:00:00 00:00:00 [facility] 2021-04-03 2021-04-03 (TEL) STLMLC STLMLC [id number] Co mmon 00:00:00 00:00:00 [facility] 2021-03-10 2021-03-10 (TEL) STLMLC STLMLC [id number] Co mmon 00:00:00 00:00:00 [facility] 2021-03-06 2021-03-06 OFFICE STLMLC STLMLC [id number] Co mmon 00:00:00 00:00:00 VISIT [facility] PT - CHI LEVEL 2 [facility] 2021-03-05 2021-03-05 (TEL) STLMLC STLMLC [id number] Co mmon 00:00:00 00:00:00 [facility] 2021-01-27 2021-01-27 OFFICE STLMLC STLMLC [id number] Co mmon 00:00:00 00:00:00 VISIT Spirit ESTAB PT - CHI LEVEL 4 [facility] 2020-12-25 2020-12-25 OFFICE STLMLC STLMLC [id number] Co mmon 00:00:00 00:00:00 VISIT EST Spir it PT LEVEL 3 - [facility] 2020-12-20 2020-12-20 (TEL) STLMLC STLMLC [id number] Co mmon 00:00:00 00:00:00 [facility] 2020-12-02 2020-12-02 (TEL) STLMLC STLMLC [id number] Co mmon 00:00:00 00:00:00 [facility] 2020-12-02 2020-12-02 (TEL) STLMLC STLMLC [id number] Co mmon 00:00:00 00:00:00 [facility] 2020-12-02 2020-12-02 OFFICE STLMLC STLMLC [id number] Co mmon 00:00:00 00:00:00 VISIT EST Spir it PT LEVEL [address] [facility] 2020-10-16 2020-10-16 OFFICE STLMLC STLMLC [id number] Co mmon 00:00:00 00:00:00 VISIT Spirit ESTAB PT - CHI LEVEL 4 [facility] 2020-10-16 2020-10-16 OFFICE STLMLC STLMLC [id number] Co mmon 00:00:00 00:00:00 VISIT [facility] ESTAB PT - CHI LEVEL 4 [facility] 2020-10-10 2020-10-10 (TEL) STLMLC STLMLC [id number] Co mmon 00:00:00 00:00:00 [facility] 2020-09-25 2020-09-25 Outpatient STLMLC STLMLC [id number] Common 00:00:00 00:00:00 [facility] 2020-09-20 2020-09-20 Outpatient STLMLC STLMLC [id number] Common 00:00:00 00:00:00 [facility] 2020-09-04 2020-09-04 Outpatient STLMLC STLMLC [id number] Common 00:00:00 00:00:00 [facility] 2020-09-04 2020-09-04 Outpatient STLMLC STLMLC [id number] Common 00:00:00 00:00:00 [facility] 2020-09-04 2020-09-04 Outpatient STLMLC STLMLC [id number] Common 00:00:00 00:00:00 [facility] 2020-09-03 2020-09-03 Outpatient STLMLC STLMLC [id number] Common 00:00:00 00:00:00 [facility] 2020-08-27 2020-08-27 Outpatient STLMLC STLMLC [id number] Common 00:00:00 00:00:00 [facility] 2020-08-15 2020-08-15 Outpatient STLMLC STLMLC [id number] Common 00:00:00 00:00:00 [facility] 2020-08-14 2020-08-14 Outpatient STLMLC STLMLC [id number] Common 00:00:00 00:00:00 [facility] 2020-08-01 2020-08-01 Outpatient STLMLC STLMLC [id number] Common 00:00:00 00:00:00 [facility] 2020-07-24 2020-07-24 Outpatient STLMLC STLMLC [id number] Common 00:00:00 00:00:00 [facility] 2020-07-16 2020-07-16 Outpatient STLMLC STLMLC [id number] Common 00:00:00 00:00:00 [facility] 2020-07-16 2020-07-16 Outpatient STLMLC STLMLC [id number] Common 00:00:00 00:00:00 [facility] 2020-07-10 2020-07-10 Outpatient STLMLC STLMLC [id number] Common 00:00:00 00:00:00 [facility] 2020-07-05 2020-07-05 Outpatient STLMLC STLMLC [id number] Common 00:00:00 00:00:00 [facility] 2020-06-27 2020-06-27 Outpatient STLMLC STLMLC [id number] Common 00:00:00 00:00:00 [facility] 2020-06-24 2020-06-24 Outpatient STLMLC STLMLC [id number] Common 00:00:00 00:00:00 [facility] 2020-06-19 2020-06-19 Outpatient STLMLC STLMLC [id number] Common 00:00:00 00:00:00 [facility] 2020-05-20 2020-05-20 Outpatient STLMLC STLMLC [id number] Common 00:00:00 00:00:00 [facility] 2020-05-14 2020-05-14 Outpatient STLMLC STLMLC [id number] Common 00:00:00 00:00:00 [facility] 2020-04-19 2020-04-19 Outpatient STLMLC STLMLC [id number] Common 00:00:00 00:00:00 [facility] 2020-04-16 2020-04-16 Outpatient STLMLC STLMLC [id number] Common 00:00:00 00:00:00 [facility] 2019-09-29 2019-09-29 [facility] [id number] Common 13:46:00 13:46:[address] [facility] [address] [facility] 2019-09-28 2019-09-28 [facility] [id number] Common 11:00:00 11:00:[address] [facility] 2019-09-28 2019-09-28 [facility] [id number] Common 10:30:00 10:30:[address] [facility] 2019-07-14 2019-07-14 [facility] [id number] Common 10:31:00 10:31:[address] [facility] 2018-12-15 2018-12-15 [facility] [id number] Common 16:00:00 16:00:[address] [facility] 2018-09-14 2018-09-14 [facility] [id number] Common 15:45:00 15:45:[address] [facility] 2018-08-30 2018-08-30 [facility] [id number] Common 08:00:00 08:00:[address] [facility] 2018-06-10 2018-06-10 [facility] [id number] Common 16:46:00 16:46:[address] [facility] 2018-06-09 2018-06-09 [facility] [id number] Common 09:18:00 09:18:[address] [facility] [address] [facility] 2018-06-07 2018-06-07 [facility] [id number] Common 15:00:00 15:00:[address] [facility] 2018-04-25 2018-04-25 [facility] [id number] Common 09:15:00 09:15:[address] [facility] 2018-03-09 2018-03-09 [facility] [id number] Common 16:00:00 16:00:[address] [facility] 2018-03-03 2018-03-03 [facility] [id number] Common 08:52:00 08:52:[address] [facility] 2017-11-30 2017-11-30 [facility] [id number] Common 15:00:00 15:00:[address] [facility] 2017-09-30 2017-09-30 Outpatient Jaswinder Sant [id number] Common 15:00:00 15:00:00 t Specialty/U Sp nahed Specialty rology - [facility] /Urology Clinic [facility] 2017-09-29 2017-09-29 [facility] [id number] Common 10:13:00 10:13:[address] [facility] 2017-09-28 2017-09-28 [facility] [id number] Common 14:00:00 14:00:[address] [facility] Results Test Description Test Time Test Comments Results Result Comments Source PHOSPHORUS 2018-11-11 05:54:00 Test Item Value Reference Range Interpretation Comme nts PHOSPHORUS (BEAKER) (test code = 604) 3.6 mg/dL 2.3-4.7 [id number] 05:54:00 Test Item Value Reference Range Interpretation Comments MAGNESIUM (BEAKER) (test code = 1.8 mg/dL 1.6-2.6 627) BASIC METABOLIC [id number] 05:54:00 Test Item Value Reference Range Interpretation [...] APPLICABLE FOR DIALYSIS PATIEN TS. HEPATIC FUNCTION [id number] 05:54:00 Test Item Value Reference Range Interpretation [...] 6-55 347) CBC W/PLT COUNT & AUTO [id number] 05:43:00 Test Item Value Reference Range Interpretation [...] PERCENT (BEAKER) (test code = 2801) PROTHROMBIN [id number] 05:42:00 Test Item Value Reference Range Interpretation [...] 2.5-3.5 for patients wiht mechanical heart valves.HEMOGLOBIN [id number] 07:50:00 Test Item Value Reference Range Interpretation Comments HEMOGLOBIN A1C (BEAKER) (test code = 7.1 % 4.3-6.1 H 368) [id number] 04:53:00 Test Item Value Reference Range Interpretation Comments PHOSPHORUS (BEAKER) (test code = 3.2 mg/dL 2.3-4.7 604) [id number] 04:53:00 Test Item Value Reference Range Interpretation Comments MAGNESIUM (BEAKER) (test code = 1.8 mg/dL 1.6-2.6 627) BASIC METABOLIC [id number] 04:53:00 Test Item Value Reference Range Interpretation [...] APPLICABLE FOR DIALYSIS PATIEN TS. HEPATIC FUNCTION [id number] 04:53:00 Test Item Value Reference Range Interpretation [...] code = 12 U/L 6-55 347) PROTHROMBIN [id number] 04:19:00 Test Item Value Reference Range Interpretation [...] mechanical heart valves.CBC W/PLT COUNT & AUTO [id number] 04:14:00 Test Item Value Reference Range Interpretation [...] 0-1 PERCENT (BEAKER) (test code = 2801) [id number] 14:44:00 Test Item Value Reference Range Interpretation Comments LIPASE (BEAKER) (test code = 749) 972 U/L 8-78 H [id number] 13:06:00 Test Item Value Reference Range Interpretation Comments PHOSPHORUS (BEAKER) (test code = 3.3 mg/dL 2.3-4.7 604) [id number] 13:06:00 Test Item Value Reference Range Interpretation Comments MAGNESIUM (BEAKER) (test code = 2.0 mg/dL 1.6-2.6 627) BASIC METABOLIC [id number] 13:06:00 Test Item Value Reference Range Interpretation [...] NOT APPLICABLE FOR DIALYSIS PATIEN TS. LIPID [id number] 13:06:00 Test Item Value Reference Range Interpretation [...] 130-159 High 160-189 Very High >=190HEPATIC FUNCTION [id number] 13:06:00 Test Item Value Reference Range Interpretation [...] 6-55 347) CBC W/PLT COUNT & AUTO [id number] 12:46:00 Test Item Value Reference Range Interpretation [...] PERCENT (BEAKER) (test code = 2801) PROTHROMBIN [id number] 12:39:00 Test Item Value Reference Range Interpretation [...]
[2022-09-04] MEDS ORDERED: HYDROCODONE/APAP 10/325 TAB ONE (12:54)
[2022-09-04] MEDS ORDERED: FLUCONAZOLE 100 MG TAB ONE (12:54)
[2022-09-04 13:01] LABS: Urine Bacteria >50 /HPF (<20); Urine Bilirubin NEGATIVE (Negative); Urine Blood 1+ (Negative); Urine Clarity Extremely Turbid (Clear); Urine Color Light-Yellow (Yellow); Urine Glucose 3+ (Negative); Urine Mucus Slight /HPF (None Seen); Urine Protein TRACE (Negative); Urine Urobilinogen Normal (Normal); Urine WBC Clump Occasional /HPF (None Seen); Urine pH 5.5 (5.0-7.0)
[2022-09-04] MEDS ORDERED: ONDANSETRON 4 MG (ODT) TAB ONE (13:01)
--- NOTE | 2022-09-04 13:39 | EDPHYS ---
Physician Documentation [facility] Name: Isadora Bettencourt Age: 76 yrs Sex: Female : 1945 Arrival Date: 09/04/2022 Time: 12:12 Bed 8 Private MD: NEHEMIAS Physician Anthony Kaminski HPI: 09/04 13:30 This 76 yrs old Female presents to ER via EMS with complaints of DYSURIA james AFTER BOTOX. 13:30 The patient presents with urinary symptoms, frequency, hesitancy, urgency. Onset: The james symptoms/episode began/occurred 3 day(s) ago. Modifying factors: The symptoms are alleviated by nothing, the symptoms are aggravated by nothing. Associated signs and symptoms: Pertinent positives: dysuria. Severity of symptoms: At their worst the symptoms were mild, in the emergency department the symptoms are unchanged. The patient is not sexually active. The patient has experienced similar episodes in the past, multiple times. Historical: - Allergies: 12:16 No Known Allergies; ld1 - PMHx: 12:16 Anxiety; Hypertension; Kidney stones; Pancreatitis; ld1 - PSHx: 12:16 Appendectomy; Cholecystectomy; Total abdominal hysterectomy; ld1 - Immunization history:: Adult Immunizations up to date, Client reports receiving the 2nd dose of the Covid vaccine. - Social history:: Smoking status: Patient denies any tobacco usage or history of. Patient/guardian denies using alcohol. ROS: 13:32 Constitutional: Negative for fever, chills, and weight loss, Eyes: Negative for injury, james pain, redness, and discharge, ENT: Negative for injury, pain, and discharge, Neck: Negative for injury, pain, and swelling, Cardiovascular: Negative for chest pain, palpitations, and edema, Respiratory: Negative for shortness of breath, cough, wheezing, and pleuritic chest pain, Abdomen/GI: Negative for abdominal pain, nausea, vomiting, diarrhea, and constipation, Back: Negative for injury and pain, MS/Extremity: Negative for injury and deformity, Neuro: Negative for headache, weakness, numbness, tingling, and seizure, Psych: Negative for depression, anxiety, suicide ideation, homicidal ideation, and hallucinations, Allergy/Immunology: Negative for hives, rash, and allergies, Endocrine: Negative for neck swelling, polydipsia, polyuria, polyphagia, and marked weight changes, Hematologic/Lymphatic: Negative for swollen nodes, abnormal bleeding, and unusual bruising. 13:32 : Positive for urinary symptoms, hematuria, burning with urination, difficulty urinating, bladder incontinence vaginal itching. Exam: 13:32 Constitutional: This is a well developed, well nourished patient who is awake, alert, james and in no acute distress. Head/Face: Normocephalic, atraumatic. Eyes: Pupils equal round and reactive to light, extra-ocular motions intact. Lids and lashes normal. Conjunctiva and sclera are non-icteric and not injected. Cornea within normal limits. Periorbital areas with no swelling, redness, or edema. ENT: Nares patent. No nasal discharge, no septal abnormalities noted. Tympanic membranes are normal and external auditory canals are clear. Oropharynx with no redness, swelling, or masses, exudates, or evidence of obstruction, uvula midline. Mucous membranes moist. Neck: Trachea midline, no thyromegaly or masses palpated, and no cervical lymphadenopathy. Supple, full range of motion without nuchal rigidity, or vertebral point tenderness. No Meningismus. Chest/axilla: Normal chest wall appearance and motion. Nontender with no deformity. No lesions are appreciated. Cardiovascular: Regular rate and rhythm with a normal S1 and S2. No gallops, murmurs, or rubs. Normal PMI, no JVD. No pulse deficits. Respiratory: Lungs have equal breath sounds bilaterally, clear to auscultation and percussion. No rales, rhonchi or wheezes noted. No increased work of breathing, no retractions or nasal flaring. Abdomen/GI: Soft, non-tender, with normal bowel sounds. No distension or tympany. No guarding or rebound. No evidence of tenderness throughout. Back: No spinal tenderness. No costovertebral tenderness. Full range of motion. MS/ Extremity: Pulses equal, no cyanosis. Neurovascular intact. Full, normal range of motion. Neuro: Awake and alert, GCS 15, oriented to person, place, time, and situation. Cranial nerves II-XII grossly intact. Motor strength 5/5 in all extremities. Sensory grossly intact. Cerebellar exam normal. Normal gait. Psych: Awake, alert, with orientation to person, place and time. Behavior, mood, and affect are within normal limits. 13:32 : CVA tenderness, is absent, Pelvic Exam: External exam: erythema is noted, no appreciated Bartholin's cyst, not excoriated, no evidence of foreign body, no lesions, no ulcerations, no warts seen, Bladder: is normal, non-distended, non-tender, Sexual behavior: the patient is not sexually active. Vital Signs: 12:15 Weight 70.31 kg; Height 5 ft. 1 in. ; Pain 8/10; ld1 12:17 BP 189 / 96; Pulse 75; Resp 18; Temp 98.4(TE); Pulse Ox 98% on R/A; ld1 14:00 BP 116 / 86; Pulse 74; Resp 15; Pulse Ox 99% on R/A; hb 12:15 Body Mass Index 29.29 (70.31 kg, 154.94 cm) ld1 12:15 Pain Scale: Adult ld1 MDM: 12:14 Patient medically screened. james 12:15 Patient medically screened. [facility] 09/04 12:35 Order name: Urinalysis w/ reflexes; Complete Time: 13:29 ld1 09/04 13:05 Order name: Urine Culture EDMS Administered Medications: 12:55 Drug: [place] PO 10 mg-325 mg 1 tabs Route: PO; hb 12:55 Drug: Fluconazole PO 200 mg Route: PO; hb 12:55 Drug: Ondansetron PO 4 mg Route: PO; hb 12:55 CANCELLED (Duplicate Order): Ondansetron PO 4 mg PO once hb 14:07 Drug: Rocephin (cefTRIAXone) IM 1 grams Route: IM; Site: right deltoid; ll1 14:07 Drug: Ciprofloxacin PO 500 mg Route: PO; ll1 Disposition Summary: 09/04/22 13:39 Discharge Ordered Location: Home james Problem: new james Symptoms: have improved james Condition: Stable james Diagnosis - UTI/ Urinary tract infection, site not specified james - Candidiasis, unspecified james - Candidiasis of vulva and vagina james Followup: james - With: Private Physician - When: 2 - 3 days - Reason: Recheck today's complaints, Continuance of care, Re-evaluation by your physician Followup: james - With: Jonh Garcia MD - When: 2 - 3 days - Reason: Recheck today's complaints, Continuance of care, Re-evaluation by your physician Discharge Instructions: - Discharge Summary Sheet james - Dysuria james - Urinary Tract Infection, Adult james - Vaginal Yeast Infection, Adult james - Urinary Tract Infection, Adult, [id number] james - Antibiotic Medicine, Adult, [id number] [facility] Forms: - Medication Reconciliation Form [facility] - Thank You Letter james - Antibiotic Education james - Prescription Opioid Use [facility] - [email or web address] [facility] Prescriptions: - Cipro 250 mg Oral Tablet - take 1 tablet by ORAL route every 12 hours; 14 tablet; Refills: 0, Product [facility] Selection Permitted - Pyridium 200 mg Oral Tablet - take 1 tablet by ORAL route every 8 hours for 3 days; 9 tablet; Refills: 0, [facility] Product Selection Permitted - Fluconazole 200 mg Oral Tablet - take 1 tablet by ORAL route once daily; 3 tablet; Refills: 0, Product Selection james Permitted Signatures: Dispatcher [employer] Anthony Peralta MD MD cha Baxter, Heather, RN RN hb Lewis, Lynsay RN RN ll1 Balbina Linares RN RN ld1 Corrections: (The following items were deleted from the chart) 12:55 12:55 Ondansetron PO 4 mg PO once ordered. hb hb
--- NOTE | 2022-09-04 13:39 | ER ---
Nurse's Notes [facility] Name: Isadora Bettencourt Age: 76 yrs Sex: Female : 1945 Arrival Date: 09/04/2022 Time: 12:12 Bed 8 Private MD: Diagnosis: UTI/ Urinary tract infection, site not specified;Candidiasis, unspecified;Candidiasis of vulva and vagina Presentation: 09/04 12:15 Chief complaint: Patient states: 1 week ago pt received Botox in vagina by Dr. Garcia ld1 for incontinence. Pt c/o pain to vagina, incontinence \\T\\ "raw feeling.". Coronavirus screen: At this time, the client does not indicate any symptoms associated with coronavirus-19. Ebola Screen: No symptoms or risks identified at this time. Risk Assessment: Do you want to hurt yourself or someone else? Patient reports no desire to harm self or others. Onset of symptoms was September 04, 2022. 12:15 Method Of Arrival: EMS: [facility] ld1 12:15 Acuity: FRANDY 3 ld1 Historical: - Allergies: 12:16 No Known Allergies; ld1 - PMHx: 12:16 Anxiety; Hypertension; Kidney stones; Pancreatitis; ld1 - PSHx: 12:16 Appendectomy; Cholecystectomy; Total abdominal hysterectomy; ld1 - Immunization history:: Adult Immunizations up to date, Client reports receiving the 2nd dose of the Covid vaccine. - Social history:: Smoking status: Patient denies any tobacco usage or history of. Patient/guardian denies using alcohol. Screenin:00 [facility] ED Fall Risk Assessment (Adult) Score/Fall Risk Level 0 - 2 = Low Risk hb Oriented to surroundings, Maintained a safe environment. Abuse screen: Denies threats or abuse. Denies injuries from another. Nutritional screening: No deficits noted. Tuberculosis screening: No symptoms or risk factors identified. Assessment: 13:00 General: Appears in no apparent distress. Behavior is calm, cooperative. Pain: Pain hb currently is 8 out of 10 on a pain scale. Neuro: Level of Consciousness is awake, alert, obeys commands, Oriented to person, place, time, situation. Cardiovascular: Patient's skin is warm and dry. Respiratory: Respiratory effort is even, unlabored, Respiratory pattern is regular, symmetrical. GI: No signs and/or symptoms were reported involving the gastrointestinal system. : Reports incontinence, pain. EENT: No signs and/or symptoms were reported regarding the EENT system. Derm: Skin is pink, warm \\T\\ dry. Musculoskeletal: No signs and/or symptoms reported regarding the musculoskeletal system. 14:00 Reassessment: Patient appears in no apparent distress at this time. Patient and/or hb family updated on plan of care and expected duration. Pain level reassessed. Patient is alert, oriented x 3, equal unlabored respirations, skin warm/dry/pink. Vital Signs: 12:15 Weight 70.31 kg; Height 5 ft. 1 in. ; Pain 8/10; ld1 12:17 BP 189 / 96; Pulse 75; Resp 18; Temp 98.4(TE); Pulse Ox 98% on R/A; ld1 14:00 BP 116 / 86; Pulse 74; Resp 15; Pulse Ox 99% on R/A; hb 12:15 Body Mass Index 29.29 (70.31 kg, 154.94 cm) ld1 12:15 Pain Scale: Adult ld1 ED Course: 12:14 Patient arrived in ED. james 12:14 Anthony Kaminski MD is Attending Physician. james 12:15 Balbina Linares, SHARMAINE is Primary Nurse. ld1 12:16 Triage completed. ld1 12:17 Arm band placed on right wrist. ld1 12:30 Patient has correct armband on for positive identification. hb 13:38 Jonh Garcia MD is Referral Physician. james 14:19 No provider procedures requiring assistance completed. Patient did not have IV access hb during this emergency room visit. Administered Medications: 12:55 Drug: [place] PO 10 mg-325 mg 1 tabs Route: PO; hb 12:55 Drug: Fluconazole PO 200 mg Route: PO; hb 12:55 Drug: Ondansetron PO 4 mg Route: PO; hb 12:55 CANCELLED (Duplicate Order): Ondansetron PO 4 mg PO once hb 14:07 Drug: Rocephin (cefTRIAXone) IM 1 grams Route: IM; Site: right deltoid; ll1 14:07 Drug: Ciprofloxacin PO 500 mg Route: PO; ll1 Medication: 14:00 VIS not applicable for this client. hb Outcome: 13:39 Discharge ordered by . james 14:19 Discharged to home hb 14:19 Condition: stable 14:19 Discharge instructions given to patient, Instructed on discharge instructions, follow up and referral plans. medication usage, Demonstrated understanding of instructions, follow-up care, medications, Prescriptions given X 2. 14:20 Patient left the ED. hb Signatures: Anthony Kaminski MD MD cha Baxter, Heather, RN RN Jag Gold RN RN ll1 Balbina Linares RN RN ld1
[2022-09-04] MEDS ORDERED: LIDOCAINE 1% MPF 2 ML AMPULE ONE (14:04)
[2022-09-04] MEDS ORDERED: CEFTRIAXONE 1000 MG/VIAL ONE (14:04)
[2022-09-04] MEDS ORDERED: CIPROFLOXACIN HCL 500 MG TAB ONE (14:04)
[2022-09-04 14:27] VITALS: TEMP 98.4
[2022-09-04 14:29] VITALS: BP 116/86; O2SAT 99
== END 2022-09-04 14:20 | disposition home or self-care (01) ==
LOC: ER 12:12
DX: N39.0 Urinary tract infection, site not specified (principal); B37.31 Acute candidiasis of vulva and vagina; I10 Essential (primary) hypertension; Z87.442 Personal history of urinary calculi
CPT/HCPCS: 87088; 81001; 87086; 87077; 87186; 96372; 99284; Q0162; J0696

== ENCOUNTER 2023-01-20 06:35 | Emergency (ER) | payer OTHER ==
--- OUTSIDE RECORDS SUMMARY | 2023-01-20 06:43 | XMS REPORT | Continuity of Care Document ---
:1945 Author Organization [facility] t Address [address] [facility] [address] [place] [address] Care Team Providers Name Role Phone Dmitry Powell DO Primary Care Physician [phone] Dmitry Powell Attending Clinician Unavailable Ogweno_B Attending Clinician Unavailable GAY QIU Attending Clinician Unavailable Campos Admitting Clinician Unavailable GAY QIU Admitting Clinician Unavailable Payers Payer Name Policy Type Policy Number Effective Date Expiration Date S wilfredo MEDICARE A B [id number] 2012 00:00:00 [employer] Preferred 53 [id number] 2019 Common Medicare (HMO) 00:00:00 Spirit - C [facility] [employer]OTED HEALTH [id number] (MEDICARE 00:00:00 REPLACEMENT HMO) [employer] [id number] Common [facility] - [facility] [place] [id number] Common [facility] - [facility] [employer] C1 [id number] Common [facility] - [facility] [employer] C1 [id number] Common [facility] - [facility] [employer] [id number] Common [facility] - [facility] [employer] [id number] Common [facility] - [facility] [employer] [id number] Common [facility] - [facility] [employer] [id number] Common [facility] - [facility] [employer] [id number] Common [facility] - [facility] Problems Condition Condition Condition Status Onset Resolution Last Treating Co mments Source Name Details Category Date Date Treatment Clinician Date 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 11-09 Luke s 00:00: Medical 00 Center Acute Acute Disease Active [facility] pancreatit pancreatit 11-09 Mansi kes is is 00:00: Medical 00 [place] Essential Essential Disease Active [facility] hypertensi hypertensi 11-09 Mansi kes on on 00:00: Medical 00 [place] [id number] 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 - CHI , single [facility] [id number] Hypertensi Problem Co mmon ve urgency Spirit - CHI [facility] [id number] Urinary Problem Commo n catheter Spirit dysfunctio - CHI n, initial [facility] [id number] Cataract, Problem Com mon unspecifie Spirit d cataract - [facility] laterality Center Mixed Depression Problem Commo n anxiety with Spirit and anxiety - CHI depressive [facility] Hiatal Hiatal Problem Common hernia hernia Spirit - CHI [facility] Benign Benign Problem Common essential essential Spir it hypertensi hypertensi - CHI on on [facility] Mixed Hyperlipid Problem Commo n hyperlipid emia, Spirit emia mixed - CHI [facility] Ulcer of Ulcer of Problem Commo n esophagus esophagus Spir it without - CHI bleeding [facility] [id number] Cystocele Problem Com mon and Spirit rectocele - [facility]I with [facility] uterovagin [facility] prolapse [id number] Urinary Problem Commo n incontinen Spirit ce, - CHI unspecifie [facility] Kidney Nephrolith Problem Commo n stone iasis Spirit - CHI [facility] Vitamin D Vitamin D Problem Com mon deficiency deficiency Sp nahed - CHI [facility] [id number] Chronic Problem Common gastritis Spirit without - [facility] bleeding[facility] Center type [id number] Insomnia, Problem Com mon unspecifie Spirit d type - CHI [facility] [id number] Chronic Problem Commo n GERD Spirit - CHI [facility] [id number] Fatigue, Problem Commo n unspecifie Spirit d type - CHI [facility] 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 - [facility] [id number] Nocturnal Problem Commo n enuresis Spirit - [facility] [id number] Gross Problem Common hematuria Spirit [facility] [id number] Stress Problem Common incontinen Spirit ce due to - CHI pelvic [facility] Center Urinary Urinary Problem Common tract tract Spirit infectious infection - C HI disease without St hematuria, [facility] site Medical unspecifie Center d [id number] Full Problem Commo n [id number] incontinen Spirit ce of - CHI feces [facility] Mixed Urinary Problem Common incontinen incontinen Sp nahed ce ce, mixed - [facility] [id number] Recurrent Problem Com mon UTI Spirit - [facility] Duodenitis Duodenitis Problem C ommon Spirit CHI [facility] 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 [facility] [id number] 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 - CHI with [facility] without Center long-term current use of insulin [id number] Status Problem Common post Spirit placement - CHI of ureteral [facility] stent Medical Center [id number] Type 2 [place] [id number] diabetes Spirit mellitus - CHI with other diabetic [facility] kidney Medical complicati Center on [id number] Incontinen Problem Com mon ce of Spirit feces, - CHI unspecifie [facility] incontinen Medica l ce type Center [id number] Cystitis Problem Commo n Spirit - CHI [facility] [id number] Bladder Problem Commo n spasms Spirit - [facility] [id number] Lower Problem Common urinary Spirit tract - CHI symptoms (LU) [facility] [id number] Incomplete Problem Co mmon emptying Spirit of bladder - [facility] [id number] [place], [place] [address] joint, Spirit knee, - [facility] right [facility] [id number] Pain, Problem Commo n [id number] joint, Spirit ankle, - [facility] right [facility] [id number] Detrusor Problem Comm on instabilit Spirit y [facility] [id number] Vulvovagin Problem Com mon itis Spirit [facility] [id number] Pelvic Problem Common pain [facility] [id number] Urge Problem Common incontinen Spirit ce [facility] [id number] Chronic Problem Commo n recurrent Spirit pancreatit [facility] [id number] Primary Problem 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 itis of 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 Social History Social Habit Start Date Stop Date Quantity Comments Source History [facility] Alcohol Std Drinks Medica l Center History SDOH [facility] Alcohol Comment Medical C enter History SDOH [facility] Alcohol Binge Medical [facility] History of Tobacco Common Spirit - Use [facility] Sexual orientation [facility] Tobacco use and 2018-11-09 2018-11-09 Smokeless tobacco [facility] exposure 00:00:00 00:00:00 non-user Medical Center History SDOH 2018-11-09 2018-11-[address] [facility] Alcohol Frequency 00:00:00 00:00:00 Medical Center Alcohol intake 2018-11-09 2018-11-[address] [facility] es 00:00:00 00:00:00 non-drinker of Medical Ce nter alcohol (finding) Sex Ass[birth year] [facility] kes 00:00:00 00:00:00 Medical Center Smoking Status Start Date Stop Date Source Unknown if ever smoked Common Sp nahed - [facility] Ce nter Never Smoker Common Spirit [facility] nter Ex-smoker 2018-11-09 00:00:00 2018-11-09 00:00:00 [facility] Medications Ordered Filled Start Stop Current Ordering Indication Dosage Frequency Signature Comments Components Source Medication Medication Date Date Medication? Clinician (SIG) Name Name Botox Botox 3-0 No Common 6- Spirit 00:00: - CHI [facility] Botox Botox 3-0 No Common 6- Spirit 00:00: - CHI [facility] Botox Botox 2023-0 No Common 6- Spirit 00:00: - CHI [facility] Botox Botox 2023-0 No Common 6-21 Spirit 00:00: - CHI [facility] Botox Botox 3-0 No Common 6-21 Spirit 00:00: - CHI [facility] Botox Botox 3-0 No Common 6-21 Spirit 00:00: - CHI 00 [facility] Solifenacin Solifenacin 2022- No 1{table QD Solifenaci Succinate Succinate 03-11 t} n 10 MG 10 MG 00:00: 00:00 Succinate 00 :00 10 MG Solifenacin Solifenacin 2023- No 1{table QD Solifenaci Succinate Succinate 03-11 t} n 10 MG 10 MG 00:00: 00:00 Succinate 00 :00 10 MG Clotrimazol Clotrimazol 3- No 1{appli BID Clotrimazo e-Betametha e-Betametha 03-11 cation} le-Betamet sone 1-0.05 sone 1-0.05 00:00: 00:00 hasone % % 00 :00 1-0.05 % Fluconazole Fluconazole 3- No 1{table Fluconazol 150 MG 150 MG [...] 1{capsu TID Cephalexin 500 MG 500 MG 012-28 le} 500 MG 00:00: 00:00 00 :00 Amitriptyli Amitriptyli 0 No 1{table QD Amitriptyl ne HCl 75 ne HCl 75 8-05 t_at_be ine HCl 75 MG MG 00:00: dtime} MG 00 Amitriptyli Amitriptyli 2021- No 1{table QD Amitriptyl ne HCl 75 ne HCl 75 8-05 t_at_be ine HCl 75 MG MG 00:00: dtime} MG 00 Amitriptyli Amitriptyli 2021- No 1{table QD Amitriptyl ne HCl 75 [...] MG 00:00: dtime} MG 00 Amitriptyli Amitriptyli 2021- No 1{table QD Amitriptyl ne HCl 75 ne HCl 75 10-10 t_at_be ine HCl 75 MG MG 00:00: dtime} MG 00 Solifenacin Solifenacin 2-0 2023- No 1{table QD [...] Succinate 00 :00 10 MG Lidocaine Lidocaine 2-0 No 10mg Com 07-31 Spirit 00:00: - CHI 00 [facility] Kenalog Kenalog 2-0 No 40mg Common (Triamcinol (Triamcinol 5-26 S pirit one) one) 00:00: - CHI 00 [facility] Lidocaine Lidocaine 2-0 No 10mg Com 07-31 Spirit 00:00: - CHI 00 [facility] Kenalog Kenalog 2-0 No 40mg Common (Triamcinol (Triamcinol 5-26 S pirit one) one) 00:00: - CHI 00 [facility] Lidocaine Lidocaine 2-0 No 10mg Com 07-31 Spirit 00:00: - CHI 00 [facility] Kenalog Kenalog 2-0 No 40mg Common (Triamcinol (Triamcinol 5-26 S pirit one) one) 00:00: - CHI 00 [facility] Lidocaine Lidocaine 2-0 No 10mg Com 07-31 Spirit 00:00: - CHI 00 [facility] Kenalog Kenalog 2-0 No 40mg Common (Triamcinol (Triamcinol 5-26 S pirit one) one) 00:00: - CHI 00 [facility] Lidocaine Lidocaine 2-0 No 10mg Com 07-31 Spirit 00:00: - CHI 00 [facility] Kenalog Kenalog 2-0 No 40mg Common (Triamcinol (Triamcinol 5-26 S pirit one) one) 00:00: - CHI 00 [facility] Lidocaine Lidocaine 2-0 No 10mg Com 07-31 Spirit 00:00: - CHI 00 [facility] Kenalog Kenalog 2-0 No 40mg Common (Triamcinol (Triamcinol 5-26 S pirit one) one) 00:00: - CHI 00 [facility] Lidocaine Lidocaine 2022-0 No 10mg Com 07-31 Spirit 00:00: - CHI 00 [facility] Kenalog Kenalog 2-0 No 40mg Common (Triamcinol (Triamcinol 5-26 S pirit one) one) 00:00: - CHI 00 [facility] Lidocaine Lidocaine 2-0 No 10mg Com 07-31 Spirit 00:00: - CHI 00 [facility] Kenalog Kenalog 2-0 No 40mg Common (Triamcinol (Triamcinol 5-26 S pirit one) one) 00:00: - CHI 00 [facility] Lidocaine Lidocaine 2-0 No 10mg Com 07-31 Spirit 00:00: - CHI 00 [facility] Kenalog Kenalog 2-0 No 40mg Common (Triamcinol (Triamcinol 5-26 S pirit one) one) 00:00: - CHI 00 [facility] Lidocaine Lidocaine 2-0 No 10mg Com 07-31 Spirit 00:00: - CHI 00 [facility] Kenalog Kenalog 2-0 No 40mg Common (Triamcinol (Triamcinol 5-26 S pirit one) one) 00:00: - CHI [facility] Lidocaine Lidocaine 2-0 No 10mg Com 07-31 Spirit 00:00: - CHI 00 [facility] Kenalog Kenalog 2-0 No 40mg Common (Triamcinol (Triamcinol 5-26 S pirit one) one) 00:00: - CHI 00 [facility] Lidocaine Lidocaine 2-0 No 10mg Com 07-31 Spirit 00:00: - CHI 00 [facility] Kenalog Kenalog 2-0 No 40mg Common (Triamcinol (Triamcinol 5-26 S pirit one) one) 00:00: - CHI 00 [facility] Lidocaine Lidocaine 2-0 No 10mg Com 07-31 Spirit 00:00: - CHI 00 [facility] Kenalog Kenalog 2-0 No 40mg Common (Triamcinol (Triamcinol 5-26 S pirit one) one) 00:00: - CHI 00 [facility] Lidocaine Lidocaine 2022-0 No 10mg Com 07-31 Spirit 00:00: - CHI 00 [facility] Kenalog Kenalog 2022-0 No 40mg Common (Triamcinol (Triamcinol 5-26 S pirit one) one) 00:00: - CHI 00 [facility] Lidocaine Lidocaine 2-0 No 10mg Com 07-31 Spirit 00:00: - CHI 00 [facility] Kenalog Kenalog 2-0 No 40mg Common (Triamcinol (Triamcinol 5-26 S pirit one) one) 00:00: - CHI 00 [facility] Lidocaine Lidocaine 2-0 No 10mg Com 07-31 Spirit 00:00: - CHI 00 [facility] Kenalog Kenalog 2-0 No 40mg Common (Triamcinol (Triamcinol 5-26 S pirit one) one) 00:00: - CHI 00 [facility] Lidocaine Lidocaine 2-0 No 10mg Com 07-31 Spirit 00:00: - CHI 00 [facility] Kenalog Kenalog 2-0 No 40mg Common (Triamcinol (Triamcinol 5-26 S pirit one) one) 00:00: - CHI [facility] Lidocaine Lidocaine 2-0 No 10mg Com 07-31 Spirit 00:00: - CHI 00 [facility] Kenalog Kenalog 2-0 No 40mg Common (Triamcinol (Triamcinol 5-26 S pirit one) one) 00:00: - CHI [facility] Lidocaine Lidocaine 2-0 No 10mg Com 07-31 Spirit 00:00: - CHI 00 [facility] Kenalog Kenalog 2-0 No 40mg Common (Triamcinol (Triamcinol 5-26 S pirit one) one) 00:00: - CHI [facility] Lidocaine Lidocaine 2-0 No 10mg Com 07-31 Spirit 00:00: - CHI 00 [facility] Kenalog Kenalog 2-0 No 40mg Common (Triamcinol (Triamcinol 5-26 S pirit one) one) 00:00: - CHI 00 [facility] Lidocaine Lidocaine 2-0 No 10mg Com 07-31 Spirit 00:00: - CHI 00 [facility] Kenalog Kenalog 2-0 No 40mg Common (Triamcinol (Triamcinol 5-26 S pirit one) one) 00:00: - CHI [facility] Lidocaine Lidocaine 2022-0 No 10mg Com 07-31 Spirit 00:00: - CHI 00 [facility] Kenalog Kenalog 2021-0 No 40mg Common (Triamcinol (Triamcinol 5-26 S pirit one) one) 00:00: - CHI 00 [facility] Lidocaine Lidocaine 2-0 No 10mg Com 07-31 Spirit 00:00: - CHI 00 [facility] Kenalog Kenalog 2021-0 No 40mg Common (Triamcinol (Triamcinol 5-26 S pirit one) one) 00:00: - CHI 00 [facility] Lidocaine Lidocaine 2-0 No 10mg Com 07-31 Spirit 00:00: - CHI 00 [facility] Kenalog Kenalog 2021-0 No 40mg Common (Triamcinol (Triamcinol 5-26 S pirit one) one) 00:00: - CHI 00 [facility] Lidocaine Lidocaine 2-0 No 10mg Com 07-31 Spirit 00:00: - CHI 00 [facility] Kenalog Kenalog 2021-0 No 40mg Common (Triamcinol (Triamcinol 5-26 S pirit one) one) 00:00: - CHI 00 [facility] amitriptyli amitriptyli 2021-0 No amitriptyl ne 25 [...] ine 25 mg 00:00: 00 amitriptyli amitriptyli 2-0 No amitriptyl ne 25 mg ne 25 [...] 1{table QD Fluconazol 100 MG 100 MG 07-1717 t} e 100 MG 00:00: 00:00 00 :00 Bactrim DS Bactrim DS 2021- No 1{table BID Bactrim DS 800-160 MG 800-160 MG 07-12-14 t} 800-160 MG 00:00: 00:00 00 :00 Bactrim DS Bactrim DS 2021- No 1{table BID Bactrim DS 800-160 MG 800-160 MG 07-12-14 t} 800-160 MG 00:00: 00:00 00 :00 Uribel 118 Uribel 118 2021- No 1{capsu BID Uribel 118 MG MG 05-09- le} MG 00:00: 00:00 00 :00 Uribel 118 Uribel 118 2021- No 1{capsu BID Uribel 118 MG MG 05-09- le} MG 00:00: 00:00 00 :00 Clotrimazol Clotrimazol 2021- No 1{appli BID Clotrimazo e-Betametha e-Betametha - 05-25 cation} le-Betamet sone 1-0.05 sone 1-0.05 00:00: 00:00 hasone % % 00 :00 1-0.05 % Clotrimazol Clotrimazol 2021- No 1{appli BID Clotrimazo e-Betametha e-Betametha - 05-25 cation} le-Betamet sone 1-0.05 sone 1-0.05 00:00: 00:00 hasone % % 00 :00 1-0.05 % Clotrimazol Clotrimazol 2021- No 1{appli BID Clotrimazo e-Betametha e-Betametha 3- 05-25 cation} le-Betamet sone 1-0.05 sone 1-0.05 00:00: 00:00 hasone % % 00 :00 1-0.05 % Clotrimazol Clotrimazol 2021- No 1{appli BID Clotrimazo e-Betametha e-Betametha 3- 05-25 cation} le-Betamet sone 1-0.05 sone 1-0.05 00:00: 00:00 hasone % % 00 :00 1-0.05 % Clotrimazol Clotrimazol 2021- No 1{appli BID Clotrimazo e-Betametha e-Betametha 3- 05-25 cation} le-Betamet sone 1-0.05 sone 1-0.05 00:00: 00:00 hasone % % 00 :00 1-0.05 % Clotrimazol Clotrimazol 2021- No 1{appli BID Clotrimazo e-Betametha e-Betametha 3- [...] No 1{capsu TID Pentosan Polysulfate Polysulfate 05-07 04- le_on_a Polysulfat Sodium 100 Sodium 100 00:00: 00:00 n_empty e Sodium MG MG 00 :00 _stomac 100 MG h} Bactrim DS Bactrim DS 2021- No 1{table BID Bactrim DS 800-160 MG 800-160 MG -05 07- t} 800-160 MG 00:00: 00:00 00 :00 Fluconazole Fluconazole 2021-0 2- No 1{table QD Fluconazol 150 MG 150 MG 04-10 t} e 150 MG 00:00: 00:00 00 :00 Fluconazole Fluconazole 2021-0 2- No 1{table QD Fluconazol 200 MG 200 MG 03-10 t} e 200 MG 00:00: 00:00 00 :00 Rocephin Rocephin 2020-03 No 1g Commo n (Ceftriaxon (Ceftriaxon 1-22 S pirit e) e) 00:00: - CHI 00 [facility] Rocepnen Rocephin 2020-03 No 1g Commo n (Ceftriaxon (Ceftriaxon 1-22 S pirit e) e) 00:00: - CHI 00 [facility] Rocepnen Rocephin 2020-03 No 1g Commo n (Ceftriaxon (Ceftriaxon 1-22 S pirit e) e) 00:00: - CHI 00 [facility] Rocepnen Rocepnen 2020-03 No 1g Commo n (Ceftriaxon (Ceftriaxon 1-22 S pirit e) e) 00:00: - CHI 00 [facility] Rocepnen Rocepnen 2020- No 1g Commo n (Ceftriaxon (Ceftriaxon 1-22 S pirit e) e) 00:00: - CHI 00 [facility] Rocepnen Rocephin 2020- No 1g Commo n (Ceftriaxon (Ceftriaxon 1-22 S pirit e) e) 00:00: - CHI 00 [facility] Rocepnen Rocephin 2020- No 1g Commo n (Ceftriaxon (Ceftriaxon 1-22 S pirit e) e) 00:00: - CHI 00 [facility] Rocepnen Rocephin 2020- No 1g Commo n (Ceftriaxon (Ceftriaxon 1-22 S pirit e) e) 00:00: - CHI 00 [facility] Rocepnen Rocephin 2020- No 1g Commo n (Ceftriaxon (Ceftriaxon 1-22 S pirit e) e) 00:00: - CHI 00 [facility] Rocephin Rocepnen 2020-03 No 1g Commo n (Ceftriaxon (Ceftriaxon 1-22 S pirit e) e) 00:00: - CHI 00 [facility] Rocepnen Rocepnen 2020-03 No 1g Commo n (Ceftriaxon (Ceftriaxon 1-22 S pirit e) e) 00:00: - CHI 00 [facility] Rocepnen Rocepnen 2020-03 No 1g Commo n (Ceftriaxon (Ceftriaxon 1-22 S pirit e) e) 00:00: - CHI 00 [facility] Rocepnen Rocepnen 2020-03 No 1g Commo n (Ceftriaxon (Ceftriaxon 1-22 S pirit e) e) 00:00: - CHI 00 [facility]-03 No 1g Commo n (Ceftriaxon (Ceftriaxon 1-22 S pirit e) e) 00:00: - CHI 00 [facility] 2020-03 No 1g Commo n (Ceftriaxon (Ceftriaxon 1-22 S pirit e) e) 00:00: - CHI 00 [facility] 2020-03 No 1g Commo n (Ceftriaxon (Ceftriaxon 1-22 S pirit e) e) 00:00: - CHI 00 [facility] 2020-03 No 1g Commo n (Ceftriaxon (Ceftriaxon 1-22 S pirit e) e) 00:00: - CHI 00 [facility] Rocepnen Rocepnen 2020-03 No 1g Commo n (Ceftriaxon (Ceftriaxon 1-22 S pirit e) e) 00:00: - CHI 00 [facility] Ro[facility] 2020-03 No 1g Commo n (Ceftriaxon (Ceftriaxon 1-22 S pirit e) e) 00:00: - CHI 00 [facility] 2020-03 No 1g Commo n (Ceftriaxon (Ceftriaxon 1-22 S pirit e) e) 00:00: - CHI 00 [facility] 2020-03 No 1g Commo n (Ceftriaxon (Ceftriaxon 1-22 S pirit e) e) 00:00: - CHI 00 [facility] 2020-03 No 1g Commo n (Ceftriaxon (Ceftriaxon 1-22 S pirit e) e) 00:00: - CHI 00 [facility] 2020-03 No 1g Commo n (Ceftriaxon (Ceftriaxon 1-22 S pirit e) e) 00:00: - CHI 00 [facility] 2020-03 No 1g Commo n (Ceftriaxon (Ceftriaxon 1-22 S pirit e) e) 00:00: - CHI 00 [facility] 2020-03 No 1g Commo n (Ceftriaxon (Ceftriaxon 1-22 S pirit e) e) 00:00: - CHI 00 [facility] 2020-03 No 1g Commo n (Ceftriaxon (Ceftriaxon 1-22 S pirit e) e) 00:00: - CHI 00 [facility] 2020-03 No 1g Commo n (Ceftriaxon (Ceftriaxon 1-22 S pirit e) e) 00:00: - CHI 00 [facility] 2020-03 No 1g Commo n (Ceftriaxon (Ceftriaxon 1-22 S pirit e) e) 00:00: - CHI 00 [facility]03 No 1g Commo n (Ceftriaxon (Ceftriaxon 1-22 S pirit e) e) 00:00: - CHI 00 [facility] 2020-03 No 1g Commo n (Ceftriaxon (Ceftriaxon 1-22 S pirit e) e) 00:00: - CHI 00 [facility] 2020-03 No 1g Commo n (Ceftriaxon (Ceftriaxon 1-22 S pirit e) e) 00:00: - CHI 00 [facility] 2021-1 No 1g Commo n (Ceftriaxon (Ceftriaxon -22 S pirit e) e) 00:00: - [facility] 00 [facility] [facility] Shaniqua Mcgovern 2020- No 1g Commo n (Ceftriaxon (Ceftriaxon -22 S pirit e) e) 00:00: - [facility] VESIcare 10 VESIcare 10 2020-032- No 1{table [...] QD Oxybutynin Chloride ER Chloride ER 12-02 t} Chloride 15 MG 15 MG 00:00: [...] 2020- No QD Nitrofuran oin oin 8-11 02-13 toin Macrocrysta Macrocrysta 00:00: 00:00 Macrocryst l 50 MG l 50 MG 00 :00 al 50 MG pantoprazol Yes 40mg Q.5D Take [address] [facility] (PROTONIX) 17:24: (two) Medica l 40 MG 08 times Center tablet daily . lipase-prot Yes [id number]{ Take [facility] lipase} 36,000 [...] capsule 08 (two) Center times daily. lisinopril 0 Yes 40mg QD Take [address] (PRINIVIL,Z 9-06 by mouth [facility] ESTRIL) 40 17:24: daily. Medic al MG tablet 08 Center pantoprazol Yes 40mg Q.5D Take [address] [facility] (PROTONIX) 17:24: (two) Medica l 40 MG 08 times Center tablet daily . lipase-prot 0 Yes [id number]{ Take [facility] lipase} 36,000 Che[place]ne es e (CREON) 17:24: units of Medi oralia 36,000-114, [address] 000- mouth 3 180,000 (three) unit CpDR times capsule daily with meals. metoprolol 20190 Yes 50mg QD Take [address] (LOPRESSOR) 9-06 by mouth [facility] 50 MG 17:24: daily. Medical tablet 08 Center gabapentin 20190 Yes 100mg Q.5D Take 100 [facility] [...] Center tablet daily . lipase-prot 2019-0 Yes [id number]{ Take [facility] lipase} 36,000 [...] Center tablet daily . lipase-prot 2019-0 Yes [id number]{ Take [facility] lipase} 36,000 [...] Center tablet daily . lipase-prot 2019-0 Yes [id number]{ Take [facility] lipase} 36,000 [...] Center tablet daily . lipase-prot 2019-0 Yes [id number]{ Take [facility] lipase} 36,000 [...] Center tablet daily . lipase-prot 2019-0 Yes [id number]{ Take [facility] lipase} 36,000 [...] Center tablet daily . lipase-prot 2019-0 Yes [id number]{ Take [facility] lipase} 36,000 [...] Center tablet daily . lipase-prot 2019-0 Yes [id number]{ Take [facility] lipase} 36,000 Cehyanne es e (CREON) 17:24: units of Medi [...] Center tablet daily . lipase-prot 2019-0 Yes [id number]{ Take [facility] lipase} 36,000 [...] Center tablet daily . lipase-prot 2019-0 Yes [id number]{ Take [facility] lipase} 36,000 [...] on every 4 (four) hours as needed. Mina Kenalog 2019-0 No 40mg Common (Triamcinol (Triamcinol 2-18 S pirit one) one) 00:00: - [facility] Mina Kenalog 2018-0 No 40mg Common (Triamcinol (Triamcinol 2-18 S pirit one) one) 00:00: - [facility] Kenalog Kenalog 2019-0 No 40mg Common (Triamcinol (Triamcinol 2-18 S pirit one) one) 00:00: - [facility] Kenalog Kenalog 2019-0 No 40mg Common (Triamcinol (Triamcinol 2-18 S pirit one) one) 00:00: - [facility] Kenalog Kenalog 2019-0 No 40mg Common (Triamcinol (Triamcinol 2-18 S pirit one) one) 00:00: - [facility] Kenalog Kenalog 2019-0 No 40mg Common (Triamcinol (Triamcinol 2-18 S pirit one) one) 00:00: - [facility] Kenalog Kenalog 2019-0 No 40mg Common (Triamcinol (Triamcinol 2-18 S pirit one) one) 00:00: - [facility] Kenalog Kenalog 2019-0 No 40mg Common (Triamcinol (Triamcinol 2-18 S pirit one) one) 00:00: - [facility] Kenalog Kenalog 2019-0 No 40mg Common (Triamcinol (Triamcinol 2-18 S pirit one) one) 00:00: - [facility] Kenalog Kenalog 2019-0 No 40mg Common (Triamcinol (Triamcinol 2-18 S pirit one) one) 00:00: - [facility] Kenalog Kenalog 2019-0 No 40mg Common (Triamcinol (Triamcinol 2-18 S pirit one) one) 00:00: - [facility] Kenalog Kenalog 2019-0 No 40mg Common (Triamcinol (Triamcinol 2-18 S pirit one) one) 00:00: - [facility] Kenalog Kenalog 2019-0 No 40mg Common (Triamcinol (Triamcinol 2-18 S pirit one) one) 00:00: - [facility] Kenalog Kenalog 2019-0 No 40mg Common (Triamcinol (Triamcinol 2-18 S pirit one) one) 00:00: - [facility] Kenalog Kenalog 2019-0 No 40mg Common (Triamcinol (Triamcinol 2-18 S pirit one) one) 00:00: - [facility] Kenalog Kenalog 2019-0 No 40mg Common (Triamcinol (Triamcinol 2-18 S pirit one) one) 00:00: - [facility] Kenalog Kenalog 2019-0 No 40mg Common (Triamcinol (Triamcinol 2-18 S pirit one) one) 00:00: - [facility] Kenalog Kenalog 2019-0 No 40mg Common (Triamcinol (Triamcinol 2-18 S pirit one) one) 00:00: - [facility] Kenalog Kenalog 2019-0 No 40mg Common (Triamcinol (Triamcinol 2-18 S pirit one) one) 00:00: - [facility] Kenalog Kenalog 2019-0 No 40mg Common (Triamcinol (Triamcinol 2-18 S pirit one) one) 00:00: - [facility] Kenalog Kenalog 2019-0 No 40mg Common (Triamcinol (Triamcinol 2-18 S pirit one) one) 00:00: - [facility] Kenalog Kenalog 2019-0 No 40mg Common (Triamcinol (Triamcinol 2-18 S pirit one) one) 00:00: - [facility] Kenalog Kenalog 2019-0 No 40mg Common (Triamcinol (Triamcinol 2-18 S pirit one) one) 00:00: - [facility] Kenalog Kenalog 2019-0 No 40mg Common (Triamcinol (Triamcinol 2-18 S pirit one) one) 00:00: - [facility] Mina Kenalog 2019-0 No 40mg Common (Triamcinol (Triamcinol 2-18 S pirit one) one) 00:00: - [facility] Kenregulo Kenalog 2019-0 No 40mg Common (Triamcinol (Triamcinol 2-18 S pirit one) one) 00:00: - [facility] Kenregulo Kenalog 2019-0 No 40mg Common (Triamcinol (Triamcinol 2-18 S pirit one) one) 00:00: - [facility] Kenregulo Kenalog 2019-0 No 40mg Common (Triamcinol (Triamcinol 2-18 S pirit one) one) 00:00: - [facility] Kenalog Kenalog 2019-0 No 40mg Common (Triamcinol (Triamcinol 2-18 S pirit one) one) 00:00: - [facility] Kenalog Kenalog 2019-0 No 40mg Common (Triamcinol (Triamcinol 2-18 S pirit one) one) 00:00: - [facility] Kenregulo Kenalog 2019-0 No 40mg Common (Triamcinol (Triamcinol 2-18 S pirit one) one) 00:00: - [facility] Kenalog Kenalog 2019-0 No 40mg Common (Triamcinol (Triamcinol 2-18 S pirit one) one) 00:00: - [facility] Kenalog Kenalog 2019-0 No 40mg Common (Triamcinol (Triamcinol 2-18 S pirit one) one) 00:00: - [facility] Gentamicin Gentamicin 2017-1 No 80mg C ommon 80mg 80mg 0-30 Spirit 00:00: - [facility] Gentamicin Gentamicin 2017-1 No 80mg C ommon 80mg 80mg 0-30 Spirit 00:00: - [facility] Gentamicin Gentamicin 2017-1 No 80mg C ommon 80mg 80mg 0-30 Spirit 00:00: - [facility] Gentamicin Gentamicin 2017-1 No 80mg C ommon 80mg 80mg 0-30 Spirit 00:00: - [facility] Gentamicin Gentamicin 2017-1 No 80mg C ommon 80mg 80mg 0-30 Spirit 00:00: - [facility] Gentamicin Gentamicin 2017-1 No 80mg C ommon 80mg 80mg 0-30 Spirit 00:00: - [facility] Gentamicin Gentamicin 2017-1 No 80mg C ommon 80mg 80mg 0-30 Spirit 00:00: - [facility] Gentamicin Gentamicin 2017-1 No 80mg C ommon 80mg 80mg 0-30 Spirit 00:00: - [facility] Gentamicin Gentamicin 2017-1 No 80mg C ommon 80mg 80mg 0-30 Spirit 00:00: - [facility] Gentamicin Gentamicin 2017-1 No 80mg C ommon 80mg 80mg 0-30 Spirit 00:00: - [facility] Gentamicin Gentamicin 2017-1 No 80mg C ommon 80mg 80mg 0-30 Spirit 00:00: - [facility] Gentamicin Gentamicin 2017-1 No 80mg C ommon 80mg 80mg 0-30 Spirit 00:00: - [facility] Gentamicin Gentamicin 2017-1 No 80mg C ommon 80mg 80mg 0-30 Spirit 00:00: - [facility] Gentamicin Gentamicin 2017-1 No 80mg C ommon 80mg 80mg 0-30 Spirit 00:00: - [facility] Gentamicin Gentamicin 2017-1 No 80mg C ommon 80mg 80mg 0-30 Spirit 00:00: - [facility] Gentamicin Gentamicin 2017-1 No 80mg C ommon 80mg 80mg 0-30 Spirit 00:00: - [facility] Gentamicin Gentamicin 2017-1 No 80mg C ommon 80mg 80mg 0-30 Spirit 00:00: - [facility] Gentamicin Gentamicin 2017- No 80mg C ommon 80mg 80mg 0-30 Spirit 00:00: - [facility] Gentamicin Gentamicin 2017-1 No 80mg C ommon 80mg 80mg 0-30 Spirit 00:00: - [facility] Gentamicin Gentamicin 2017- No 80mg C ommon 80mg 80mg 0-30 Spirit 00:00: - [facility] Gentamicin Gentamicin 2017-1 No 80mg C ommon 80mg 80mg 0-30 Spirit 00:00: - [facility] Gentamicin Gentamicin 2017- No 80mg C ommon 80mg 80mg 0-30 Spirit 00:00: - [facility] Gentamicin Gentamicin 2017-1 No 80mg C ommon 80mg 80mg 0-30 Spirit 00:00: - [facility] Gentamicin Gentamicin 2017- No 80mg C ommon 80mg 80mg 0-30 Spirit 00:00: - [facility] Gentamicin Gentamicin 2017-1 No 80mg C ommon 80mg 80mg 0-30 Spirit 00:00: - [facility] Gentamicin Gentamicin 2017- No 80mg C ommon 80mg 80mg 0-30 Spirit 00:00: - [facility] 00 [facility] Gentamicin Gentamicin 2017-1 No 80mg C ommon 80mg 80mg 0-30 Spirit 00:00: - [facility] 00 [facility] Gentamicin Gentamicin 2017-1 No 80mg C ommon 80mg 80mg 0-30 Spirit 00:00: - [facility] Gentamicin Gentamicin 2017-1 No 80mg C ommon 80mg 80mg 0-30 Spirit 00:00: - [facility] Gentamicin Gentamicin 2017-1 No 80mg C ommon 80mg 80mg 0-30 Spirit 00:00: - [facility] Gentamicin Gentamicin 2017-1 No 80mg C ommon 80mg 80mg 030 Spirit 00:00: - [facility] Gentamicin Gentamicin 2018-1 No 80mg C ommon 80mg 80mg 0 Spirit 00:00: - [facility] Gentamicin Gentamicin 2018-1 No 80mg C ommon 80mg 80mg 0 Spirit 00:00: - [facility] Gentamicin Gentamicin 2018-0 No 240mg Common 80mg 80mg 09-30 Spirit 00:00: - [facility] Gentamicin Gentamicin 2018-0 No 240mg Common 80mg 80mg 09-30 Spirit 00:00: - [facility] Gentamicin Gentamicin 2018-0 No 240mg Common 80mg 80mg 09-30 Spirit 00:00: - [facility] Gentamicin Gentamicin 2018-0 No 240mg Common 80mg 80mg 09-30 Spirit 00:00: - [facility] Gentamicin Gentamicin 2018-0 No 240mg Common 80mg 80mg 09-30 Spirit 00:00: - [facility] Gentamicin Gentamicin 2018-0 No 240mg Common 80mg 80mg 09-30 Spirit 00:00: - [facility] Gentamicin Gentamicin 2018-0 No 240mg Common 80mg 80mg 09-30 Spirit 00:00: - [facility] Gentamicin Gentamicin 2018-0 No 240mg Common 80mg 80mg 09-30 Spirit 00:00: - [facility] Gentamicin Gentamicin 2018-0 No 240mg Common 80mg 80mg 09-30 Spirit 00:00: - [facility] Gentamicin Gentamicin 2018-0 No 240mg Common 80mg 80mg 09-30 Spirit 00:00: - [facility] Gentamicin Gentamicin 2018-0 No 240mg Common 80mg 80mg 09-30 Spirit 00:00: - [facility] Gentamicin Gentamicin 2018-0 No 240mg Common 80mg 80mg 09-30 Spirit 00:00: - [facility] Gentamicin Gentamicin 2018-0 No 240mg Common 80mg 80mg 09-30 Spirit 00:00: - [facility] Gentamicin Gentamicin 2018-0 No 240mg Common 80mg 80mg 09-30 Spirit 00:00: - [facility] Gentamicin Gentamicin 2018-0 No 240mg Common 80mg 80mg 09-30 Spirit 00:00: - [facility] Gentamicin Gentamicin 2018-0 No 240mg Common 80mg 80mg 09-30 Spirit 00:00: - [facility] Gentamicin Gentamicin 2018-0 No 240mg Common 80mg 80mg 09-30 Spirit 00:00: - [facility] Gentamicin Gentamicin 2018-0 No 240mg Common 80mg 80mg 09-30 Spirit 00:00: - [facility] Gentamicin Gentamicin 2018-0 No 240mg Common 80mg 80mg 09-30 Spirit 00:00: - [facility] Gentamicin Gentamicin 2018-0 No 240mg Common 80mg 80mg 09-30 Spirit 00:00: - [facility] Gentamicin Gentamicin 2018-0 No 240mg Common 80mg 80mg 09-30 Spirit 00:00: - [facility] Gentamicin Gentamicin 2018-0 No 240mg Common 80mg 80mg 09-30 Spirit 00:00: - [facility] Gentamicin Gentamicin 2018-0 No 240mg Common 80mg 80mg 09-30 Spirit 00:00: - [facility] Gentamicin Gentamicin 2018-0 No 240mg Common 80mg 80mg 09-30 Spirit 00:00: - [facility] Gentamicin Gentamicin 2018-0 No 240mg Common 80mg 80mg 09-30 Spirit 00:00: - [facility] Gentamicin Gentamicin 2018-0 No 240mg Common 80mg 80mg 09-30 Spirit 00:00: - [facility] Gentamicin Gentamicin 2018-0 No 240mg Common 80mg 80mg 09-30 Spirit 00:00: - [facility] Gentamicin Gentamicin 2018-0 No 240mg Common 80mg 80mg 09-30 Spirit 00:00: - [facility] Gentamicin Gentamicin 2018-0 No 240mg Common 80mg 80mg 09-30 Spirit 00:00: - [facility] Gentamicin Gentamicin 2018-0 No 240mg Common 80mg 80mg 09-30 Spirit 00:00: - [facility] Gentamicin Gentamicin 2018-0 No 240mg Common 80mg 80mg 09-30 Spirit 00:00: - [facility] Gentamicin Gentamicin 2018-0 No 240mg Common 80mg 80mg 09-30 Spirit 00:00: - [facility] Gentamicin Gentamicin 2018-0 No 240mg Common 80mg 80mg 09-30 Spirit 00:00: - [facility] Zestoretic Zestoretic No 1{table QD Zestoretic 20-25 [...] MG eded} Creon Creon No TID Creon [id number] [phone] UNIT UNIT 0 UNIT Citalopram Citalopram No [...] MG eded} Creon Creon No TID Creon [id number] [phone] UNIT UNIT 0 UNIT Citalopram Citalopram No [...] MG eded} Creon Creon No TID Creon [id number] [phone] [phone] UNIT UNIT 0 UNIT Citalopram Citalopram No [...] MG eded} Creon Creon No TID Creon [id number] [phone] [phone] UNIT UNIT 0 UNIT Citalopram Citalopram No [...] 50 MG Creon Creon No TID Creon [id number] [phone] UNIT UNIT 0 UNIT Culturelle Culturelle No [...] 50 MG Creon Creon No TID Creon [id number] [phone] [phone] UNIT UNIT 0 UNIT Culturelle Culturelle No [...] 40 MG Creon Creon No TID Creon [phone] [phone] UNIT UNIT 0 UNIT Metoprolol Metoprolol No 1{table BID Metoprolol Tartrate 50 Tartrate 50 t_with_ Tartrate MG MG food} 50 MG Metoprolol Metoprolol No 1{table BID Metoprolol Tartrate 50 Tartrate 50 t_with_ Tartrate MG MG food} 50 MG Creon Creon No TID Creon [id number] [phone] UNIT UNIT 0 UNIT Culturelle Culturelle No [...] 40 MG Creon Creon No TID Creon [id number] [phone] [phone] UNIT UNIT 0 UNIT HYDROcodone HYDROcodone No [...] 40 MG Creon Creon No TID Creon [id number] [phone] [phone] UNIT UNIT 0 UNIT Neurontin Neurontin No [...] 40 MG Creon Creon No TID Creon 25508-67943 [phone] [phone] UNIT UNIT 0 UNIT Neurontin Neurontin No [...] 40 MG Creon Creon No TID Creon 18376-23748 [phone] [phone] UNIT UNIT 0 UNIT Neurontin Neurontin No [...] 40 MG Creon Creon No TID Creon 25199-40972 [phone] UNIT UNIT 0 UNIT Neurontin Neurontin No [...] 40 MG Creon Creon No TID Creon 03296-74354 [phone] [phone] UNIT UNIT 0 UNIT Neurontin Neurontin No [...] 40 MG Creon Creon No TID Creon [id number] [phone] UNIT UNIT 0 UNIT Neurontin Neurontin No [...] 40 MG Creon Creon No TID Creon 94452-16407 [phone] [phone] UNIT UNIT 0 UNIT Neurontin Neurontin No [...] re_bedt rosalia} Creon Creon No TID Creon 07356-23708 [phone] [phone] UNIT UNIT 0 UNIT HYDROcodone HYDROcodone No 1{table QID HYDROcodon -Acetaminop -Acetaminop t_as_ne e-Acetamin hen 7.5-325 hen 7.5-325 eded} ophen MG MG 7.5-325 MG Famotidine Famotidine No 1{table BID Famotidine 10 MG 10 MG t_as_ne 10 MG eded} Culturelle Culturelle No Culturelle - - - Protonix 40 Protonix 40 No 1{table QD Protonix MG MG t} 40 MG Creon Creon No TID Creon [phone] [phone] [phone] UNIT UNIT 0 UNIT Neurontin Neurontin No [...] 40 MG Creon Creon No TID Creon 91602-40951 [phone] [phone] UNIT UNIT 0 UNIT Neurontin Neurontin No [...] 40 MG Creon Creon No TID Creon 93666-78991 [phone] [phone] UNIT UNIT 0 UNIT Protonix 40 Protonix [...] - - Creon Creon No TID Creon 96044-02367 [phone] [phone] UNIT UNIT 0 UNIT Protonix 40 Protonix [...] MG eded} Creon Creon No TID Creon 13610-45605 [phone] UNIT UNIT 0 UNIT Pantoprazol Pantoprazol No [...] MG 10 MG t_as_ne 10 MG eded} metFORMIN metFORMIN No 1{table BID metFORMIN HCl 500 MG HCl 500 MG t_with_ HCl 500 MG a_meal} Creon Creon No TID Creon [id number] [phone] [phone] UNIT UNIT 0 UNIT Zestoretic Zestoretic No 1{table QD Zestoretic 20-25 MG 20-25 MG t} 20-25 MG Culturelle Culturelle No Culturelle - - - Neurontin Neurontin No 1{capsu QD Neurontin 300 MG 300 MG le_befo 300 MG re_bedt rosalia} Protonix 40 Protonix 40 No 1{table QD Protonix MG MG t} 40 MG Fluconazole Fluconazole No 1{table Fluconazol 200 MG 200 MG t} e 200 MG Solifenacin Solifenacin No 1{table QD Solifenaci Succinate Succinate t} n 10 MG 10 MG Succinate 10 MG Pantoprazol Pantoprazol No 1{table QD Pantoprazo e Sodium 40 e Sodium 40 t} le Sodium MG MG 40 MG Phenazopyri Phenazopyri No 1{table TID Phenazopyr dine HCl dine HCl t_after idine HCl 200 MG 200 MG _meals} 200 MG Famotidine Famotidine No 1{table BID Famotidine 10 MG 10 MG t_as_ne 10 MG eded} metFORMIN metFORMIN No 1{table BID metFORMIN HCl 1000 MG HCl 1000 MG t_with_ HCl 1000 a_meal} MG Protonix 40 Protonix 40 No 1{table QD Protonix MG MG t} 40 MG Zestoretic Zestoretic No 1{table QD Zestoretic 20-25 MG 20-25 MG t} 20-25 MG Famotidine Famotidine No 1{table BID Famotidine 10 MG 10 MG t_as_ne 10 MG eded} Solifenacin Solifenacin No 1{table QD Solifenaci Succinate Succinate t} n 10 MG 10 MG Succinate 10 MG Phenazopyri Phenazopyri No 1{table TID Phenazopyr dine HCl dine HCl t_after idine HCl 200 MG 200 MG _meals} 200 MG Neurontin Neurontin No 1{capsu QD Neurontin 300 MG 300 MG le_befo 300 MG re_bedt rosalia} Culturelle Culturelle No Culturelle - - - Creon Creon No TID Creon [id number] [phone] UNIT UNIT 0 UNIT Pantoprazol Pantoprazol No 1{table QD Pantoprazo e Sodium 40 e Sodium 40 t} le Sodium MG MG 40 MG Fluconazole Fluconazole No 1{table Fluconazol 200 MG 200 MG t} e 200 MG metFORMIN metFORMIN No 1{table BID metFORMIN HCl 1000 MG HCl 1000 MG t_with_ HCl 1000 a_meal} MG Protonix 40 Protonix 40 No 1{table QD Protonix MG MG t} 40 MG Zestoretic Zestoretic No 1{table QD Zestoretic 20-25 MG 20-25 MG t} 20-25 MG Famotidine Famotidine No 1{table BID Famotidine 10 MG 10 MG t_as_ne 10 MG eded} Solifenacin Solifenacin No 1{table QD Solifenaci Succinate Succinate t} n 10 MG 10 MG Succinate 10 MG Phenazopyri Phenazopyri No 1{table TID Phenazopyr dine HCl dine HCl t_after idine HCl 200 MG 200 MG _meals} 200 MG Neurontin Neurontin No 1{capsu QD Neurontin 300 MG 300 MG le_befo 300 MG re_bedt rosalia} [facility] No [facility] - - - Creon Creon No TID Creon [id number] [phone] UNIT UNIT 0 UNIT Pantoprazol Pantoprazol No 1{table QD Pantoprazo e Sodium 40 e Sodium 40 t} le Sodium MG MG 40 MG Fluconazole Fluconazole No 1{table Fluconazol 200 MG 200 MG t} e 200 MG metFORMIN metFORMIN No 1{table BID metFORMIN HCl 1000 MG HCl 1000 MG t_with_ HCl 1000 a_meal} MG Protonix 40 Protonix 40 No 1{table QD Protonix MG MG t} 40 MG Zestoretic Zestoretic No 1{table QD Zestoretic 20-25 MG 20-25 MG t} 20-25 MG Famotidine Famotidine No 1{table BID Famotidine 10 MG 10 MG t_as_ne 10 MG eded} Solifenacin Solifenacin No 1{table QD Solifenaci Succinate Succinate t} n 10 MG 10 MG Succinate 10 MG Phenazopyri Phenazopyri No 1{table TID Phenazopyr dine HCl dine HCl t_after idine HCl 200 MG 200 MG _meals} 200 MG Neurontin Neurontin No 1{capsu QD Neurontin 300 MG 300 MG le_befo 300 MG re_bedt rosalia} [facility] No [facility] - - - Creon Creon No TID Creon [id number] [phone] [phone] UNIT UNIT 0 UNIT Pantoprazol Pantoprazol No 1{table QD Pantoprazo e Sodium 40 e Sodium 40 t} le Sodium MG MG 40 MG Fluconazole Fluconazole No 1{table Fluconazol 200 MG 200 MG t} e 200 MG metFORMIN metFORMIN No 1{table BID metFORMIN HCl 1000 MG HCl 1000 MG t_with_ HCl 1000 a_meal} MG Protonix 40 Protonix 40 No 1{table QD Protonix MG MG t} 40 MG Zestoretic Zestoretic No 1{table QD Zestoretic 20-25 MG 20-25 MG t} 20-25 MG Famotidine Famotidine No 1{table BID Famotidine 10 MG 10 MG t_as_ne 10 MG eded} Solifenacin Solifenacin No 1{table QD Solifenaci Succinate Succinate t} n 10 MG 10 MG Succinate 10 MG Phenazopyri Phenazopyri No 1{table TID Phenazopyr dine HCl dine HCl t_after idine HCl 200 MG 200 MG _meals} 200 MG Neurontin Neurontin No 1{capsu QD Neurontin 300 MG 300 MG le_befo 300 MG re_bedt rosalia} [facility] No [facility] - - - Creon Creon No TID Creon [id number] [phone] UNIT UNIT 0 UNIT Pantoprazol Pantoprazol No 1{table QD Pantoprazo e Sodium 40 e Sodium 40 t} le Sodium MG MG 40 MG Fluconazole Fluconazole No 1{table Fluconazol 200 MG 200 MG t} e 200 MG metFORMIN metFORMIN No 1{table BID metFORMIN HCl 1000 MG HCl 1000 MG t_with_ HCl 1000 a_meal} MG Protonix 40 Protonix 40 No 1{table QD Protonix MG MG t} 40 MG Zestoretic Zestoretic No 1{table QD Zestoretic 20-25 MG 20-25 MG t} 20-25 MG Famotidine Famotidine No 1{table BID Famotidine 10 MG 10 MG t_as_ne 10 MG eded} Solifenacin Solifenacin No 1{table QD Solifenaci Succinate Succinate t} n 10 MG 10 MG Succinate 10 MG Phenazopyri Phenazopyri No 1{table TID Phenazopyr dine HCl dine HCl t_after idine HCl 200 MG 200 MG _meals} 200 MG Neurontin Neurontin No 1{capsu QD Neurontin 300 MG 300 MG le_befo 300 MG re_bedt rosalia} Culturelle Culturelle No Culturelle - - - Creon Creon No TID Creon [id number] 17050-30077 [address] UNIT UNIT 0 UNIT Pantoprazol Pantoprazol No 1{table QD Pantoprazo e Sodium 40 e Sodium 40 t} le Sodium MG MG 40 MG Fluconazole Fluconazole No 1{table Fluconazol 200 MG 200 MG t} e 200 MG Simvastatin Simvastatin No 1{table QD Simvastati 20 MG 20 MG t_in_th n 20 MG e_eveni ng} Creon Creon No TID Creon 14459-35064 87968-12304 [address] UNIT UNIT 0 UNIT Metoprolol Metoprolol No [...] e_eveni ng} Creon Creon No TID Creon 83900-54427 04279-04953 [address] UNIT UNIT 0 UNIT Metoprolol Metoprolol No [...] e_eveni ng} Creon Creon No TID Creon 87541-81367 48934-58131 90[address] UNIT UNIT 0 UNIT Metoprolol Metoprolol No [...] re_bedt rosalia} Creon Creon No TID Creon 00242-79223 48219-40046 [address] UNIT UNIT 0 UNIT Metoprolol Metoprolol No [...] re_bedt rosalia} Creon Creon No TID Creon 82415-27686 18360-15773 [phone] UNIT UNIT 0 UNIT Metoprolol Metoprolol No [...] re_bedt rosalia} Creon Creon No TID Creon 14883-25751 96489-64038 [address] UNIT UNIT 0 UNIT Metoprolol Metoprolol No [...] 40 MG Creon Creon No TID Creon 82242-18122 24480-74909 [address] UNIT UNIT 0 UNIT cloNIDine cloNIDine No [...] 40 MG Creon Creon No TID Creon 38458-55491 99635-53045 [address] UNIT UNIT 0 UNIT cloNIDine cloNIDine No [...] 40 MG Creon Creon No TID Creon 48145-81875 78387-09433 53559-75[address] UNIT UNIT 0 UNIT traZODone traZODone No [...] 40 MG Creon Creon No TID Creon 17195-37248 88632-75878 [address] UNIT UNIT 0 UNIT cloNIDine cloNIDine No [...] MG dtime} Creon Creon No TID Creon 21537-01123 74764-63585 [phone] UNIT UNIT 0 UNIT Citalopram Citalopram No [...] MG dtime} Creon Creon No TID Creon 38638-66134 76824-78746 [address] UNIT UNIT 0 UNIT Citalopram Citalopram No [...] MG dtime} Creon Creon No TID Creon 44850-31489 54208-23356 32949[address]42[address] UNIT UNIT 0 UNIT Citalopram Citalopram No [...] MG dtime} Creon Creon No TID Creon 05636-71829 16933-08807 [address] UNIT UNIT 0 UNIT traZODone traZODone No [...] 40 MG Creon Creon No TID Creon 85471-13929 74082-80398 [address] UNIT UNIT 0 UNIT Zestoretic Zestoretic No [...] MG eded} Creon Creon No TID Creon 38938-67975 27786-49956 [phone] UNIT UNIT 0 UNIT Citalopram Citalopram No [...] MG eded} Creon Creon No TID Creon 20047-61090 86160-48396 [phone] UNIT UNIT 0 UNIT Citalopram Citalopram No 1{table QD Citalopram Hydrobromid Hydrobromid t} Hydrobromi e 40 MG e 40 MG de 40 MG Protonix 40 Protonix 40 No 1{table QD Protonix MG MG t} 40 MG Simvastatin Simvastatin No 1{table QD Simvastati 20 MG 20 MG t_in_th n 20 MG e_eveni ng} Clotrimazol Clotrimazol 2019- No Dmitry 1 Common e e 10-12 [facility] applicatio [facility] 00:00 n to - [facility] :00 affected [facility] Vital Signs Vital Name Observation Time Observation Value Comments Source height 2022-05-27 09:45:00 61 [in_i] Common [facility] weight 2022-05-27 09:45:00 165 [lb_av] Common [facility] temperature 2022-05-27 09:45:00 97.5 [degF] Common [facility] bmi 2022-05-27 09:45:00 31.17 kg/m2 [facility] oximetry 2022-05-27 09:45:00 96 % [facility] respiratory rate 2022-05-27 09:45:00 16 /min Comm on [facility] blood pressure 2022-05-27 09:45:00 130 mm[Hg] Common [facility] - systolic [facility] blood pressure 2022-05-27 09:45:00 80 mm[Hg] Common [facility] - diastolic [facility] height 2022-03-11 13:00:00 61 [in_i] Common [facility] weight 2022-03-11 13:00:00 170 [lb_av] [facility] temperature 2022-03-11 13:00:00 97.3 [degF] Common [facility] bmi 2022-03-11 13:00:00 32.12 kg/m2 [facility] oximetry 2022-03-11 13:00:00 96 % Common [facility] respiratory rate 2022-03-11 13:00:00 16 /min Comm on [facility] blood pressure 2022-03-11 13:00:00 138 mm[Hg] Common [facility] - systolic [facility] blood pressure 2022-03-11 13:00:00 96 mm[Hg] Common [facility] - diastolic [facility] blood pressure 2022-02-19 09:45:00 132 mm[Hg] [facility] - systolic [facility] blood pressure 2022-02-19 09:45:00 68 mm[Hg] [facility] - diastolic [facility] height 2022-02-19 09:45:00 61 [in_i] Common [facility] weight 2022-02-19 09:45:00 165 [lb_av] [facility] temperature 2022-02-19 09:45:00 97.8 [degF] [facility] bmi 2022-02-19 09:45:00 31.17 kg/m2 Common [facility] oximetry 2022-02-19 09:45:00 96 % [facility] respiratory rate 2022-02-19 09:45:00 18 /min Comm on [facility] height 2022-01-14 11:00:00 61 [in_i] Common [facility] weight 2022-01-14 11:00:00 165 [lb_av] Common [facility] temperature 2022-01-14 11:00:00 97.8 [degF] Common [facility] bmi 2022-01-14 11:00:00 31.17 kg/m2 [facility] oximetry 2022-01-14 11:00:00 97 % [facility] respiratory rate 2022-01-14 11:00:00 16 /min Comm on [facility] blood pressure 2022-01-14 11:00:00 142 mm[Hg] Common [facility] - systolic [facility] blood pressure 2022-01-14 11:00:00 89 mm[Hg] Common [facility] - diastolic [facility] height 2021-08-01 13:30:00 61 [in_i] Common [facility] weight 2021-08-01 13:30:00 181 [lb_av] Common S pirit [facility] temperature 2021-08-01 13:30:00 98 [degF] Common S pirit - [facility] bmi 2021-08-01 13:30:00 34.2 kg/m2 Common S pirit - [facility] blood pressure 2021-08-01 13:30:00 136 mm[Hg] Common [facility] - systolic [facility] blood pressure 2021-08-01 13:30:00 76 mm[Hg] Common [facility] - diastolic [facility] height 2021-07-31 09:30:00 61 [in_i] Common S pirit [facility] weight 2021-07-31 09:30:00 180 [lb_av] Common S pirit [facility] bmi 2021-07-31 09:30:00 34.01 kg/m2 Common S pirit - [facility] blood pressure 2021-07-31 09:30:00 144 mm[Hg] Common [facility] - systolic [facility] blood pressure 2021-07-31 09:30:00 80 mm[Hg] [facility] - diastolic [facility] height 2021-07-25 11:30:00 61 [in_i] Common S pirit [facility] weight 2021-07-25 11:30:00 180 [lb_av] [facility] S pirit [facility] temperature 2021-07-25 11:30:00 98.1 [degF] Common S pirit - [facility] bmi 2021-07-25 11:30:00 34.01 kg/m2 Common S pirit - [facility] oximetry 2021-07-25 11:30:00 96 % [facility] S pirit [facility] respiratory rate 2021-07-25 11:30:00 16 /min Comm on Spirit - [facility] blood pressure 2021-07-25 11:30:00 146 mm[Hg] Common [facility] - systolic [facility] blood pressure 2021-07-25 11:30:00 88 mm[Hg] Common [facility] - diastolic [facility] height 2021-04-21 14:15:00 61 [in_i] Common S pirit [facility] weight 2021-04-21 14:15:00 180 [lb_av] [facility] temperature 2021-04-21 14:15:00 97.6 [degF] [facility] bmi 2021-04-21 14:15:00 34.01 kg/m2 [facility] oximetry 2021-04-21 14:15:00 94 % [facility] respiratory rate 2021-04-21 14:15:00 18 /min Comm on Spirit [facility] blood pressure 2021-04-21 14:15:00 136 mm[Hg] Common [facility] - systolic [facility] blood pressure 2021-04-21 14:15:00 68 mm[Hg] Common [facility] - diastolic [facility] height 2021-04-14 14:00:00 61 [in_i] Common [facility] weight 2021-04-14 14:00:00 180 [lb_av] Common [facility] bmi 2021-04-14 14:00:00 34.01 kg/m2 [facility] blood pressure 2021-04-14 14:00:00 132 mm[Hg] Common [facility] - systolic [facility] blood pressure 2021-04-14 14:00:00 80 mm[Hg] Common [facility] - diastolic [facility] height 2021-03-06 16:30:00 61 [in_i] Common [facility] weight 2021-03-06 16:30:00 180 [lb_av] Common [facility] temperature 2021-03-06 16:30:00 97.8 [degF] Common [facility] bmi 2021-03-06 16:30:00 34.01 kg/m2 [facility] oximetry 2021-03-06 16:30:00 99 % [facility] respiratory rate 2021-03-06 16:30:00 18 /min Comm on [facility] - [facility] blood pressure 2021-03-06 16:30:00 135 mm[Hg] Common [facility] - systolic [facility] blood pressure 2021-03-06 16:30:00 90 mm[Hg] Common [facility] - diastolic [facility] height 2021-01-27 16:20:00 61 [in_i] Common S pirit - [facility] weight 2021-01-27 16:20:00 180 [lb_av] Common S pirit - [facility] temperature 2021-01-27 16:20:00 97.6 [degF] Common S pirit - [facility] bmi 2021-01-27 16:20:00 34.01 kg/m2 Common S pirit - [facility] oximetry 2021-01-27 16:20:00 98 % Common S pirit - [facility] blood pressure 2021-01-27 16:20:00 132 mm[Hg] Common [facility] - systolic [facility] blood pressure 2021-01-27 16:20:00 68 mm[Hg] [facility] - diastolic [facility] height 2020-12-25 14:45:00 61 [in_i] Common S pirit - [facility] weight 2020-12-25 14:45:00 180 [lb_av] Common S pirit - [facility] temperature 2020-12-25 14:45:00 97.6 [degF] Common S pirit - [facility] bmi 2020-12-25 14:45:00 34.01 kg/m2 Common S pirit - [facility] oximetry 2020-12-25 14:45:00 97 % Common S pirit - [facility] blood pressure 2020-12-25 14:45:00 147 mm[Hg] [facility] - systolic [facility] blood pressure 2020-12-25 14:45:00 84 mm[Hg] [facility] - diastolic [facility] height 2020-12-02 15:40:00 61 [in_i] Common S pirit - [facility] weight 2020-12-02 15:40:00 180 [lb_av] Common S pirit - [facility] temperature 2020-12-02 15:40:00 97.8 [degF] Common S pirit - [facility] bmi 2020-12-02 15:40:00 34.01 kg/m2 Common S pirit [facility] oximetry 2020-12-02 15:40:00 96 % Common S pirit - [facility] blood pressure 2020-12-02 15:40:00 184 mm[Hg] [facility] - systolic [facility] blood pressure 2020-12-02 15:40:00 104 mm[Hg] [facility] - diastolic [facility] height 2020-10-16 13:40:00 61 [in_i] [facility] weight 2020-10-16 13:40:00 178 [lb_av] Common S pirit [facility] temperature 2020-10-16 13:40:00 97.4 [degF] Common S pirit [facility] bmi 2020-10-16 13:40:00 33.63 kg/m2 Common S pirit - [facility] blood pressure 2020-10-16 13:40:00 128 mm[Hg] [facility] - systolic [facility] blood pressure 2020-10-16 13:40:00 76 mm[Hg] [facility] - diastolic [facility] height 2020-10-16 16:30:00 61 [in_i] Common S pirit - [facility] weight 2020-10-16 16:30:00 180 [lb_av] Common S pirit - [facility] temperature 2020-10-16 16:30:00 97.7 [degF] Common S pirit [facility] bmi 2020-10-16 16:30:00 34.01 kg/m2 Common S pirit - [facility] oximetry 2020-10-16 16:30:00 97 % Common S pirit [facility] blood pressure 2020-10-16 16:30:00 162 mm[Hg] [facility] - systolic [facility] blood pressure 2020-10-16 16:30:00 96 mm[Hg] [facility] - diastolic [facility] Procedures This patient has no [...] [facility]00 (Season Ended) [code = [facility] INFLUENZA VACCINE (Season Ended)] Future Scheduled [...] 00:00:00 (1 of 1 - Medical Center [id number] PCV13) [code = PNEUMOCOCCAL 65+ YRS (1 of 1 - [id number] PCV13)] Future Scheduled 2012-12-28 PNEUMOCOCCAL 65+ [facility] 00:00:00 (1 of 1 - Medical Center [id number] PCV13) [code = PNEUMOCOCCAL 65+ YRS (1 of 1 - [id number] PCV13)] Future Scheduled 2012-12-28 PNEUMOCOCCAL 65+ [facility] Test 00:00:00 (1 of 1 - Medical Center [id number] PCV13) [code = PNEUMOCOCCAL 65+ YRS (1 of 1 - [id number] PCV13)] Future Scheduled 1997-12-28 SHINGLES VACCINES (1 [...] [facility] breast (procedure) [code = 763582944] Future Scheduled [address] [facility] colon (procedure) [code = 637104123] Future Scheduled [address] [facility] 00:[facility]:00 [facility] breast (procedure) [code = 838504188] Future Scheduled [address] [facility] 00:[facility]:00 [facility] colon (procedure) [code = 270775056] Future Scheduled [address] [facility] 00:[facility]:00 [facility] breast (procedure) [code = 539512146] Future Scheduled [address] [facility] 00:00:00 [facility] colon (procedure) [code = 561552566] Encounters Start End Encounter Admission Attending Care Care Encounter Source Date/Time Date/Time Type Type Clinicians Facility Department ID 2022-12-17 Outpatient [facility], [facility] [id number] Common 09:51:00 Dmitry 27017 [facility] 2022-10-27 [facility] [id number] Common 09:39:00 Dmitry 86616 [facility] 2022-10-07 Outpatient Powell, [facility] [id number] Common 09:18:00 Dmitry 21264 [facility] 2022-09-04 Outpatient Powell, [facility] [id number] Common 14:37:00 Dmitry 37784 [facility] 2022-08-05 Outpatient Powell, [facility] [id number] Common 10:09:00 Dmitry 90142 [facility] 2022-07-31 Outpatient Powell, STLMLC [facility] [id number] Common 09:48:00 Dmitry 22558 [facility] 2022-06-15 Outpatient Powell, STL[facility] [id number] Common 10:10:00 Dmitry 43409 [facility] 2022-05-21 Outpatient Powell, STL[facility]C [facility] [id number] Common 13:22:01 Dmitry 68606 [facility] 2021-07-31 Outpatient Powell, [facility] Common 09:46:01 Dmitry [facility] 2021-04-02 Outpatient Powell, STLMLC [facility] [id number] Common 14:02:15 Dmitry 00393 [facility] 2021-04-02 Outpatient Powell, [facility] Common 14:01:19 Dmitry 40330 [facility] 2021-04-02 Outpatient Powell, STLC ST[facility] Common 13:38:40 Dmitry 39303 [facility] 2021-04-02 Outpatient Powell, STLMLC [facility] [id number] Common 13:36:48 Dmitry 98089 [facility] 2021-04-02 Outpatient Powell, [facility] [id number] Common 13:28:35 Dmitry 62206 [facility] 2021-04-02 Outpatient Powell, STL[facility] [id number] Common 13:28:20 Dmitry 99889 [facility] 2021-04-02 Outpatient Powell, STLC ST[facility] [id number] Common 13:04:41 Dmitry 11865 [facility] 2021-04-02 Outpatient Powell, STLMLC [facility] [id number] Common 12:55:20 Dmitry 95035 [facility] 2021-04-02 Outpatient Powell, STLMLC STLMLC [id number] Common 12:37:32 Dmitry 64877 [facility] 2021-04-02 Outpatient Powell, STLMLC STLMLC [id number] Common 11:40:56 Dmitry 56725 [facility] 2021-04-02 Outpatient Powell, STLMLC STLMLC [id number] Common 11:32:24 Dmitry 38592 [facility] 2021-04-02 Outpatient Powell, STLMLC STLMLC [id number] Common 10:59:26 Dmitry 60556 [facility] 2021-04-02 Outpatient Powell, STLMLC STLMLC [id number] Common 10:59:05 Dmitry 22108 [facility] 2020-12-15 Inpatient UR [facility] Urology [id number] [facility] 2022-07-01 2022-07-01 ([place]) Nurse STLMLC STLMLC [id number] Common 00:00:00 00:00:00 Visit [facility] 2022-05-27 2022-05-27 OFFICE STLMLC STLMLC [id number] Co mmon 00:00:00 00:00:00 VISIT [facility] LEVEL 4 [facility] 2022-05-27 2022-05-27 (TEL) STLMLC STLMLC [id number] Co mmon 00:00:00 00:00:00 [facility] 2022-05-21 2022-05-21 (TEL) STLMLC STLMLC [id number] Co mmon 00:00:00 00:00:00 [facility] 2022-05-19 2022-05-19 (TEL) STLMLC STLMLC [id number] Co mmon 00:00:00 00:00:00 [facility] 2022-05-14 2022-05-14 Outpatient Ogweno_B DMG DMG [id number] [facility] 00:00:00 00:00:00 0309 [facility] 2022-05-14 2022-05-14 Outpatient Ogweno_B DMG [facility] [place] [id number]- 2022 [facility] 00:00:00 00:00:00 0506 [facility] 2022-03-26 2022-03-26 Outpatient Ogweno_B DMG [facility] [place] [id number] 2022 [facility] 00:00:00 00:00:00 0217 [facility] 2022-03-26 2022-03-26 Outpatient Ogweno_B DMG [facility] [place] [id number] [facility] 00:00:00 00:00:00 0119 [facility] 2022-03-24 2022-03-24 (TEL) STLMLC STLMLC [id number] Co mmon 00:00:00 00:00:00 [facility] 2022-03-11 2022-03-11 OFFICE STLMLC STLMLC [id number] Co mmon 00:00:00 00:00:00 VISIT Spirit ESTAB PT - [facility] LEVEL 4 [facility] 2022-03-06 2022-03-06 (TEL) STLMLC STLMLC [id number] Co mmon 00:00:00 00:00:00 [facility] 2022-02-23 2022-02-23 Outpatient DMG [facility] [place] [id number] [facility] 00:00:00 00:00:00 [id number] [facility] 2022-02-19 2022-02-19 OFFICE STLMLC STLMLC [id number] Co mmon 00:00:00 00:00:00 VISIT EST Spir it PT LEVEL 3 - [facility] 2022-01-14 2022-01-14 OFFICE STLMLC STLMLC [id number] Co mmon 00:00:00 00:00:00 VISIT EST Spir it PT LEVEL 3 - [facility] 2021-12-23 2021-12-23 (TEL) STLMLC STLMLC [id number] Co mmon 00:00:00 00:00:00 [facility] 2021-12-19 2021-12-19 OFFICE STLMLC STLMLC [id number] Co mmon 00:00:00 00:00:00 VISIT [facility] ESTAB PT - [facility]I LEVEL 1 [facility] 2021-10-10 2021-10-10 Phone Only STLMLC STLMLC [id number] Common 00:00:00 00:00:00 Visit for Spir it Est [facility] 2021-10-01 2021-10-01 (TEL) STLMLC STLMLC [id number] Co mmon 00:00:00 00:00:00 [facility] 2021-09-23 2021-09-23 (TEL) STLMLC STLMLC [id number] Co mmon 00:00:00 00:00:00 [facility] 2021-09-22 2021-09-22 (TEL) STLMLC STLMLC [id number] Co mmon 00:00:00 00:00:00 [facility] 2021-09-22 2021-09-22 OFFICE STLMLC STLMLC [id number] Co mmon 00:00:00 00:00:00 VISIT Spirit ESTAB PT - [facility] LEVEL 1 [facility] 2021-09-19 2021-09-19 Outpatient DMG DMG [id number] [facility] 03:36:00 03:36:00 [id number] [facility] 2021-08-26 2021-08-26 (TEL) STLMLC STLMLC [id number] Co mmon 00:00:00 00:00:00 [facility] 2021-08-15 2021-08-15 (TEL) STLMLC STLMLC [id number] Co mmon 00:00:00 00:00:00 [facility] 2021-08-12 2021-08-12 (TEL) STLMLC STLMLC [id number] Co mmon 00:00:00 00:00:00 [facility] 2021-08-01 2021-08-01 (TEL) STLMLC STLMLC [id number] Co mmon 00:00:00 00:00:00 [facility] 2021-08-01 2021-08-01 (EST. STLMLC STLMLC [id number] Co mmon 00:00:00 00:00:00 VIDEO) EST Spi rit VIRTUAL - CHI VIDEO [facility] 2021-07-31 2021-07-31 (TEL) STLMLC STLMLC [id number] Co mmon 00:00:00 00:00:00 [facility] 2021-07-31 2021-07-31 OFFICE STLMLC STLMLC [id number] Co mmon 00:00:00 00:00:00 VISIT EST Spir it PT LEVEL 3 - [facility] 2021-07-30 2021-07-30 (TEL) STLMLC STLMLC [id number] Co mmon 00:00:00 00:00:00 [facility] 2021-07-25 2021-07-25 OFFICE STLMLC STLMLC [id number] Co mmon 00:00:00 00:00:00 VISIT Spirit ESTAB PT - [facility] LEVEL 4 [facility] 2021-07-22 2021-07-22 (TEL) STLMLC STLMLC [id number] Co mmon 00:00:00 00:00:00 [facility] 2021-07-14 2021-07-14 (TEL) STLMLC STLMLC [id number] Co mmon 00:00:00 00:00:00 [facility] 2021-07-12 2021-07-12 (TEL) STLMLC STLMLC [id number] Co mmon 00:00:00 00:00:00 [facility] 2021-07-05 2021-07-05 Outpatient DMG [facility] [place] [id number] [facility] 09:00:00 09:00:00 0430 [facility] 2021-05-20 2021-05-20 [place] [id number] [facility] 09:01:00 09:01:00 0315 [facility] 2021-05-14 2021-05-14 (PROC) STLMLC STLMLC [id number] Co mmon 00:00:00 00:00:00 Procedure Spir it - [facility] 2021-05-07 2021-05-07 (TEL) STLMLC STLMLC [id number] Co mmon 00:00:00 00:00:00 [facility] 2021-05-07 2021-05-07 OFFICE STLMLC STLMLC [id number] Co mmon 00:00:00 00:00:00 VISIT [facility] ESTAB PT - CHI LEVEL 4 [facility] 2021-05-06 2021-05-06 (TEL) STLMLC STLMLC [id number] Co mmon 00:00:00 00:00:00 [facility] 2021-04-21 2021-04-21 (TEL) STLMLC STLMLC [id number] Co mmon 00:00:00 00:00:00 [facility] 2021-04-21 2021-04-21 OFFICE STLMLC STLMLC [id number] Co mmon 00:00:00 00:00:00 VISIT EST Spir it PT LEVEL 3 [facility] 2021-04-18 2021-04-18 (TEL) STLMLC STLMLC [id number] Co mmon 00:00:00 00:00:00 [facility] 2021-04-16 2021-04-16 (TEL) STLMLC STLMLC [id number] Co mmon 00:00:00 00:00:00 [facility] 2021-04-14 2021-04-14 ([employer]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) New STLMLC STLMLC [id number] C ommon 00:00:00 00:00:00 Patient [facility] 2021-04-10 2021-04-10 (TEL) STLMLC STLMLC [id number] Co mmon 00:00:00 00:00:00 [facility] 2021-04-03 2021-04-03 (TEL) STLMLC STLMLC [id number] Co mmon 00:00:00 00:00:00 [facility] 2021-03-10 2021-03-10 (TEL) STLMLC STLMLC [id number] Co mmon 00:00:00 00:00:00 [facility] 2021-03-06 2021-03-06 OFFICE STLMLC STLMLC [id number] Co mmon 00:00:00 00:00:00 VISIT Spirit ESTAB PT - [facility]I LEVEL 2 [facility] 2021-03-05 2021-03-05 (TEL) STLMLC STLMLC [id number] Co mmon 00:00:00 00:00:00 [facility] 2021-01-27 2021-01-27 OFFICE STLMLC STLMLC [id number] Co mmon 00:00:00 00:00:00 VISIT [facility] ESTAB PT - CHI LEVEL 4 [facility] 2020-12-25 2020-12-25 OFFICE STLMLC STLMLC [id number] Co mmon 00:00:00 00:00:00 VISIT EST Spir it PT LEVEL 3 - [facility] 2020-12-20 2020-12-20 (TEL) STLMLC STLMLC [id number] Co mmon 00:00:00 00:00:00 [facility] 2020-12-02 2020-12-02 (TEL) STLMLC STLMLC [id number] Co mmon 00:00:00 00:00:00 [facility] 2020-12-02 2020-12-02 (TEL) STLMLC STLMLC [id number] Co mmon 00:00:00 00:00:00 [facility] 2020-12-02 2020-12-02 OFFICE STLMLC STLMLC [id number] Co mmon 00:00:00 00:00:00 VISIT EST Spir it PT LEVEL 3 - [facility] 2020-10-16 2020-10-16 OFFICE STLMLC STLMLC [id number] Co mmon 00:00:00 00:00:00 VISIT [facility] ESTAB PT - [facility] LEVEL 4 [facility] 2020-10-16 2020-10-16 OFFICE STLMLC STLMLC [id number] Co mmon 00:00:00 00:00:00 VISIT Spirit ESTAB PT - CHI LEVEL 4 [facility] 2020-10-10 2020-10-10 (TEL) STLMLC STLMLC [id number] Co mmon 00:00:00 00:00:00 [facility] 2020-09-25 2020-09-25 Outpatient STLMLC STLMLC [id number] Common 00:00:00 00:00:00 [facility] 2020-09-20 2020-09-20 Outpatient STLMLC STLMLC [id number] Common 00:00:00 00:00:00 [facility] 2020-09-04 2020-09-04 Outpatient STLMLC STLMLC [id number] Common 00:00:00 00:00:00 [facility] 2020-09-04 2020-09-04 Outpatient STLMLC STLMLC [id number] Common 00:00:00 00:00:00 [facility] 2020-09-04 2020-09-04 Outpatient STLMLC STLMLC [id number] Common 00:00:00 00:00:00 [facility] 2020-09-03 2020-09-03 Outpatient STLMLC STLMLC [id number] Common 00:00:00 00:00:00 [facility] 2020-08-27 2020-08-27 Outpatient STLMLC STLMLC [id number] Common 00:00:00 00:00:00 [facility] 2020-08-15 2020-08-15 Outpatient STLMLC STLMLC [id number] Common 00:00:00 00:00:00 [facility] 2020-08-14 2020-08-14 Outpatient STLMLC STLMLC [id number] Common 00:00:00 00:00:00 [facility] 2020-08-01 2020-08-01 Outpatient STLMLC STLMLC [id number] Common 00:00:00 00:00:00 [facility] 2020-07-24 2020-07-24 Outpatient STLMLC STLMLC [id number] Common 00:00:00 00:00:00 [facility] 2020-07-16 2020-07-16 Outpatient STLMLC STLMLC [id number] Common 00:00:00 00:00:00 [facility] 2020-07-16 2020-07-16 Outpatient STLMLC STLMLC [id number] Common 00:00:00 00:00:00 [facility] 2020-07-10 2020-07-10 Outpatient STLMLC STLMLC [id number] Common 00:00:00 00:00:00 [facility] 2020-07-05 2020-07-05 Outpatient STLMLC STLMLC [id number] Common 00:00:00 00:00:00 [facility] 2020-06-27 2020-06-27 Outpatient STLMLC STLMLC [id number] Common 00:00:00 00:00:00 [facility] 2020-06-24 2020-06-24 Outpatient STLMLC STLMLC [id number] Common 00:00:00 00:00:00 [facility] 2020-06-19 2020-06-19 Outpatient STLMLC STLMLC [id number] Common 00:00:00 00:00:00 [facility] 2020-05-20 2020-05-20 Outpatient STLMLC STLMLC [id number] Common 00:00:00 00:00:00 [facility] 2020-05-14 2020-05-14 Outpatient STLMLC STLMLC [id number] Common 00:00:00 00:00:00 [facility] 2020-04-19 2020-04-19 Outpatient STLMLC STLMLC [id number] Common 00:00:00 00:00:00 [facility] 2020-04-16 2020-04-16 Outpatient STLMLC STLMLC [id number] Common 00:00:00 00:00:00 [facility] 2019-09-29 2019-09-29 [id number] Common 13:46:00 13:46:[address] [facility] [address] [facility] 2019-09-28 2019-09-28 [facility] [id number] Common 11:00:00 11:00:[address] [facility] 2019-09-28 2019-09-28 [facility] [id number] Common 10:30:00 10:30:00 [address] [place] [address] [facility] 2019-07-14 2019-07-14 [facility] [id number] Common 10:31:00 10:31:00 [address] [place] [address] [facility] 2018-12-15 2018-12-15 [facility] [id number] Common 16:00:00 16:00:00 [address] [place] [address] [facility] 2018-09-14 2018-09-14 [facility] [id number] Common 15:45:00 15:45:00 [address] [place] [address] [facility] 2018-08-30 2018-08-30 [facility] [id number] Common 08:00:00 08:00:00 [address] [place] [address] [facility] 2018-06-10 2018-06-10 [facility] [id number] Common 16:46:00 16:46:00 [address] [place] [address] [facility] 2018-06-09 2018-06-09 [facility] [id number] Common 09:18:00 09:18:[address] [facility] [address] [facility] 2018-06-07 2018-06-07 [facility] [id number] Common 15:00:00 15:00:00 [address] [place] [address] [facility] 2018-04-25 2018-04-25 [facility] [id number] Common 09:15:00 09:15:00 [address] [place] [address] [facility] 2018-03-09 2018-03-09 [facility] [id number] Common 16:00:00 16:00:00 [address] [place] [address] [facility] 2018-03-03 2018-03-03 [facility] [id number] Common 08:52:00 08:52:00 [address] [place] [address] [facility] 2017-11-30 2017-11-30 Outpatient Jaswinder Sant [id number] Common 15:00:00 15:00:00 [address] [place] [address] [facility] 2017-09-30 2017-09-30 Outpatient Jaswinder Sant [id number] Common 15:00:00 15:00:00 t Specialty/U Sp nahed Specialty rology - [facility] 2017-09-29 2017-09-29 Outpatient Jaswinder Smithvitalyt [id number] Common 10:13:00 10:13:[address] [place] [address] [facility] 2017-09-28 2017-09-28 Outpatient Jaswinder Sant [id number] Common 14:00:00 14:00:00 [address] [place] [address] [facility] Results Test Description Test Time Test Comments Results Result Comments Source PHOSPHORUS 2018-11-11 05:54:00 Test Item Value Reference Range Interpretation Comme nts PHOSPHORUS (BEAKER) (test code = 604) 3.6 mg/dL 2.3-4.7 [id number] 05:54:00 Test Item Value Reference Range Interpretation Comments MAGNESIUM (BEAKER) (test code = 1.8 mg/dL 1.6-2.6 627) BASIC METABOLIC [id number] 05:54:00 Test Item Value Reference Range Interpretation [...] APPLICABLE FOR DIALYSIS PATIEN TS. HEPATIC FUNCTION [id number] 05:54:00 Test Item Value Reference Range Interpretation [...] 6-55 347) CBC W/PLT COUNT & AUTO [id number] 05:43:00 Test Item Value Reference Range Interpretation [...] PERCENT (BEAKER) (test code = 2801) PROTHROMBIN [id number] 05:42:00 Test Item Value Reference Range Interpretation [...] 2.5-3.5 for patients wiht mechanical heart valves.HEMOGLOBIN [id number] 07:50:00 Test Item Value Reference Range Interpretation Comments HEMOGLOBIN A1C (BEAKER) (test code = 7.1 % 4.3-6.1 H 368) [id number] 04:53:00 Test Item Value Reference Range Interpretation Comments PHOSPHORUS (BEAKER) (test code = 3.2 mg/dL 2.3-4.7 604) [id number] 04:53:00 Test Item Value Reference Range Interpretation Comments MAGNESIUM (BEAKER) (test code = 1.8 mg/dL 1.6-2.6 627) BASIC METABOLIC [id number] 04:53:00 Test Item Value Reference Range Interpretation [...] APPLICABLE FOR DIALYSIS PATIEN TS. HEPATIC FUNCTION [id number] 04:53:00 Test Item Value Reference Range Interpretation [...] code = 12 U/L 6-55 347) PROTHROMBIN [id number] 04:19:00 Test Item Value Reference Range Interpretation [...] mechanical heart valves.CBC W/PLT COUNT & AUTO [id number] 04:14:00 Test Item Value Reference Range Interpretation [...] 0-1 PERCENT (BEAKER) (test code = 2801) [id number] 14:44:00 Test Item Value Reference Range Interpretation Comments LIPASE (BEAKER) (test code = 749) 972 U/L 8-78 H [id number] 13:06:00 Test Item Value Reference Range Interpretation Comments PHOSPHORUS (BEAKER) (test code = 3.3 mg/dL 2.3-4.7 604) [id number] 13:06:00 Test Item Value Reference Range Interpretation Comments MAGNESIUM (BEAKER) (test code = 2.0 mg/dL 1.6-2.6 627) BASIC METABOLIC [id number] 13:06:00 Test Item Value Reference Range Interpretation [...] NOT APPLICABLE FOR DIALYSIS PATIEN TS. LIPID [id number] 13:06:00 Test Item Value Reference Range Interpretation [...] 130-159 High 160-189 Very High >=190HEPATIC FUNCTION [id number] 13:06:00 Test Item Value Reference Range Interpretation [...] 6-55 347) CBC W/PLT COUNT & AUTO [id number] 12:46:00 Test Item Value Reference Range Interpretation [...] PERCENT (BEAKER) (test code = 2801) PROTHROMBIN [id number] 12:39:00 Test Item Value Reference Range Interpretation [...]
[2023-01-20] MEDS ORDERED: ONDANSETRON 4 MG/2 ML VIAL ONE (07:58)
[2023-01-20 08:01] LABS: Absolute Lymphocytes (CBC) 1.3 K/uL (0.7-4.9); Lymphocytes % 21.6 % (15.3-44.8); MCV 82.7 fL (80-100); MPV 8.3 fL (7.6-11.3); Platelets 193 thou/uL (152-406); RBC Red Blood Cell Count 5.33 M/uL (3.86-4.86)
[2023-01-20 09:34] LABS: Albumin 3.2 g/dL (3.4-5.0); Bilirubin Total 0.5 mg/dL (0.2-1.0); Potassium 4.6 mEq/L (3.5-5.1); Protein, Total 7.7 g/dL (6.4-8.2)
--- NOTE | 2023-01-20 10:22 | RAD REPORT ---
EXAM DESCRIPTION: CT - Abdomen Pelvis W Contrast - 01/20/2023 9:49 am CLINICAL HISTORY: ABD PAIN COMPARISON: Abdomen Pelvis W Contrast dated 05/14/2022; Abdomen Pelvis W Contrast dated 10/01/2021; Abdomen Pelvis W Contrast dated 02/12/2021; Abdomen Pelvis W Contrast dated 12/17/2020 TECHNIQUE: Thin cut axial CT imaging of the abdomen and pelvis was performed following intravenous a dministration of 100 mL Isovue 300. Multiplanar reformats were generated and reviewed. All CT scans are performed using dose optimization technique as appropriate and may include automated exposure control or mA/KV adjustment according to patient size. FINDINGS: No suspicious findings in the lung bases. The liver, spleen, and adrenal gland show no suspicious findings. Mild haziness extending from the du odenum pancreatic groove towards the root of the mesentery is stable. Atrophic changes at the tail an d adjacent body of the pancreas with tortuous and dilated main pancreatic duct in this region. These findings are stable. Gallbladder and biliary tree are also without suspicious finding. Symmetric renal function is seen with no hydronephrosis or suspicious renal mass. Stable prominence o f the renal pelvis, more so on the left. Small to moderate hiatal hernia. Fluid opacification within mid to distal small bowel loops and cecum . No dilated bowel loops or bowel wall thickening. Colonic diverticulosis. No free air, free fluid or inflammatory stranding. No hernia, mass or bulky lymphadenopathy. The urinary bladder is without sig nificant finding. No suspicious bony findings. IMPRESSION: Findings suggestive of chronic pancreatitis at the distal body and tail. Stable nonspecific mild fat stranding extending from the duodenal pancreatic groove towards the root of the mesentery. This is favored to be idiopathic or related to sequelae of chronic inflammation. Po ssibility of recurrent mild acute pancreatitis is considered less likely. Please correlate clinically and with pancreatic enzyme levels. No other acute abdominal process.
--- NOTE | 2023-01-20 11:12 | ER ---
Nurse's Notes [facility] Name: Isadora Bettencourt Age: 77 yrs Sex: Female : 1945 Arrival Date: 01/20/2023 Time: 06:35 Bed 6 Private MD: Diagnosis: Other chronic pancreatitis Presentation: 01/20 06:41 Chief complaint: EMS states: upper abdominal pain and nausea that started this morning. as6 pt has a history of pancreatitis and states this feels like an attack. Coronavirus screen: At this time, the client does not indicate any symptoms associated with coronavirus-19. Ebola Screen: No symptoms or risks identified at this time. Initial Sepsis Screen: Does the patient meet any 2 criteria? No. Patient's initial sepsis screen is negative. Does the patient have a suspected source of infection? No. Patient's initial sepsis screen is negative. Risk Assessment: Do you want to hurt yourself or someone else? Patient reports no desire to harm self or others. Onset of symptoms was January 20, 2023 at 04:45. 06:41 Method Of Arrival: EMS: [facility] as6 06:41 Acuity: FRANDY 3 as6 Triage Assessment: 06:45 General: Appears uncomfortable, Behavior is calm, cooperative. Pain: Complains of pain as6 in epigastric area, right upper quadrant and left upper quadrant Also complains of nausea. Pain: Aggravated by increased activity, repositioning. EENT: No deficits noted. No signs and/or symptoms were reported regarding the EENT system. Neuro: Level of Consciousness is awake, alert, obeys commands, Oriented to person, place, time, situation. Neuro: Cardiovascular: Capillary refill < 3 seconds JVD is absent Patient's skin is warm and dry. Respiratory: Airway is patent Trachea midline Respiratory effort is even, unlabored, Respiratory pattern is regular, symmetrical. GI: Abdomen is tender to palpation in epigastric area, right upper quadrant and left upper quadrant Guarding noted in epigastric area, right upper quadrant and left upper quadrant Reports upper abdominal pain, nausea. : Reports bedwetting, incontinence. Derm: Skin is intact, is healthy with good turgor. Musculoskeletal: Circulation, motion, and sensation intact. Historical: - Allergies: 06:44 No Known Allergies; as6 - PMHx: 06:44 Anxiety; Hypertension; Kidney stones; Pancreatitis; Diabetes mellitus; as6 - PSHx: 06:44 Appendectomy; Cholecystectomy; Total abdominal hysterectomy; bladder; knee; wrist; back;as6 - Immunization history:: Adult Immunizations up to date. - Social history:: Smoking status: Patient/guardian denies using tobacco, the patient reports quitting approximately 22 years ago. Screenin:47 [facility] ED Fall Risk Assessment (Adult) Score/Fall Risk Level 0 - 2 = Low Risk. Abuse as6 screen: Denies threats or abuse. Denies injuries from another. Nutritional screening: No deficits noted. Tuberculosis screening: No symptoms or risk factors identified. Assessment: 06:50 General: see triage assessment . as6 07:35 Reassessment: Purewick placed per pt's request for elimination needs. Pt states she is aa5 incontinent. . 07:35 Reassessment: Patient is alert, oriented x 3, equal unlabored respirations, skin aa5 warm/dry/pink. 07:40 Reassessment: Socks provided for comfort. . aa5 08:07 Reassessment: Patient appears in no apparent distress at this time. Patient and/or iw family updated on plan of care and expected duration. Pain level reassessed. Patient is alert, oriented x 3, equal unlabored respirations, skin warm/dry/pink. 09:17 Reassessment: Patient appears in no apparent distress at this time. Patient and/or iw family updated on plan of care and expected duration. Pain level reassessed. Patient is alert, oriented x 3, equal unlabored respirations, skin warm/dry/pink. Patient states feeling better. 10:42 Reassessment: Patient appears in no apparent distress at this time. Patient and/or iw family updated on plan of care and expected duration. Pain level reassessed. Patient is alert, oriented x 3, equal unlabored respirations, skin warm/dry/pink. 11:38 Reassessment: Patient is alert, oriented x 3, equal unlabored respirations, skin aa5 warm/dry/pink. Vital Signs: 06:41 BP 194 / 111; Pulse 78; Resp 20 S; Temp 98.3(O); Pulse Ox 98% on R/A; Weight 75.3 kg as6 (R); Height 5 ft. 1 in. (R); Pain 10/10; 08:07 BP 185 / 87; Pulse 76; Resp 16; Pulse Ox 97% on R/A; Pain 7/10; iw 09:17 BP 175 / 75; Pulse 60; Resp 16; Pulse Ox 95% on R/A; iw 11:30 BP 175 / 67; Pulse 60; Resp 16 S; Pulse Ox 98% on R/A; aa5 06:41 Body Mass Index 31.37 (75.30 kg, 154.94 cm) as6 06:41 Pain Scale: Adult as6 08:07 Pain Scale: Adult iw ED Course: 06:41 Patient arrived in ED. as6 06:43 Triage completed. as6 06:47 Arm band placed on right wrist. as6 06:48 Bed in low position. Call light in reach. Side rails up X2. Pulse ox on. NIBP on. as6 07:03 Ortega Cotton MD is Attending Physician. ec2 07:17 Maddy Lopez RN is Primary Nurse. iw 07:45 Initial lab(s) drawn, by me, sent to lab. Inserted saline lock: 22 gauge in right aa5 forearm, using aseptic technique. Blood collected. 09:51 CT Abd/Pelvis - IV Contrast Only In Process Unspecified. EDMS 11:26 Provided Education on: . iw 11:26 No provider procedures requiring assistance completed. iw 11:38 IV discontinued, intact, bleeding controlled, No redness/swelling at site. Pressure aa5 dressing applied. Administered Medications: 08:06 Drug: NS 0.9% IV 1000 ml IV at 1 bolus Per protocol; 1000 mL bolus Route: IV; Rate: 1 iw bolus; Site: right antecubital; 09:00 Follow up: IV Status: Completed infusion iw 08:06 Drug: TORadol - Ketorolac IVP 15 mg IVP once Route: IVP; Site: right antecubital; iw 09:30 Follow up: Response: No adverse reaction iw 08:06 Drug: Ondansetron IVP 4 mg IVP once; over 2 minutes Route: IVP; Site: right antecubital;iw 09:00 Follow up: Response: No adverse reaction iw 08:07 Drug: morphine IVP or IV 4 mg IVP once over 4 mins Route: IVP; Infused Over: 4 mins; iw Site: right antecubital; 09:00 Follow up: Response: No adverse reaction; Pain is decreased iw Medication: 06:47 VIS not applicable for this client. as6 Outcome: 11:11 Discharge ordered by . ec2 11:38 Discharged to home via wheelchair, with family, aa5 11:38 Condition: stable 11:38 Discharge instructions given to patient, Instructed on discharge instructions, follow up and referral plans. medication usage, Demonstrated understanding of instructions, follow-up care, medications, Prescriptions given X 1, 11:39 Patient left the ED. aa5 Signatures: Dispatcher [employer] Maddy May RN RN iw Noemi Bonner RN RN aa5 Woo Francis RN RN as6 Ortega Cotton MD MD ec2
--- NOTE | 2023-01-20 11:12 | EDPHYS ---
Physician Documentation [facility] Name: Isadora Bettencourt Age: 77 yrs Sex: Female : 1945 Arrival Date: 01/20/2023 Time: 06:35 Bed 6 Private MD: ED Physician Ortega Cotton HPI: 01/20 07:18 This 77 yrs old Female presents to ER via EMS with complaints of Abdominal ec2 Pain. 07:18 Patient arrives today with complaint of abdominal pain. States that she has a history ec2 of pancreatitis, states this feels similar. Patient reports the pain started several hours ago, is in the upper abdomen. Patient reports nausea without vomiting. Denies any diarrhea symptoms. Reports no urinary complaints. Patient reports previous history of cholecystectomy, hysterectomy. She denies any alcohol use or drug use.. Historical: - Allergies: 06:44 No Known Allergies; as6 - PMHx: 06:44 Anxiety; Hypertension; Kidney stones; Pancreatitis; Diabetes mellitus; as6 - PSHx: 06:44 Appendectomy; Cholecystectomy; Total abdominal hysterectomy; bladder; knee; wrist; back;as6 - Immunization history:: Adult Immunizations up to date. - Social history:: Smoking status: Patient/guardian denies using tobacco, the patient reports quitting approximately 22 years ago. ROS: 07:21 Constitutional: as per hpi ec2 Exam: 07:21 Constitutional: GEN: NAD Head: atraumatic Eyes: EOMI Ears: External ears are ec2 normal. CV: regular rate LUNGS: no respiratory distress ABD: non-distended, tender in the epigastrium, no guarding, not rigid SKIN: no evidence of rashes MSK: no evidence of trauma NEURO: moves all extremities equally Vital Signs: 06:41 BP 194 / 111; Pulse 78; Resp 20 S; Temp 98.3(O); Pulse Ox 98% on R/A; Weight 75.3 kg as6 (R); Height 5 ft. 1 in. (R); Pain 10/10; 08:07 BP 185 / 87; Pulse 76; Resp 16; Pulse Ox 97% on R/A; Pain 7/10; iw 09:17 BP 175 / 75; Pulse 60; Resp 16; Pulse Ox 95% on R/A; iw 11:30 BP 175 / 67; Pulse 60; Resp 16 S; Pulse Ox 98% on R/A; aa5 06:41 Body Mass Index 31.37 (75.30 kg, 154.94 cm) as6 06:41 Pain Scale: Adult as6 08:07 Pain Scale: Adult iw MDM: 07:03 Patient medically screened. ec2 07:21 Data reviewed: vital signs. ED course: Patient with history of pancreatitis arrives ec2 today due to concern for abdominal pain. Examination remarkable for abdominal findings as noted above. Will obtain lab work, CT scan and treat the patient's symptoms with morphine, Toradol and antiemetic and crystalloid. Currently considering process such as pancreatitis, diverticulitis, intra-abdominal infection.. 09:35 ED course: CBC is reassuring, lipase is elevated at 139, metabolic profile overall ec2 reassuring. . 11:10 ED course: On reassessment patient reports improvement in her symptoms. I offered her ec2 inpatient admission however she declined and felt she felt comfortable going home, states she has not had an issue with p.o. intake and will discharge her home with pain medications. Return precautions given. Instructed her if he changes her mind to return to the ED.. 01/20 07:18 Order name: CBC with Diff; Complete Time: 08:56 ec2 01/20 07:18 Order name: CMP; Complete Time: 09:35 ec2 01/20 07:18 Order name: Lipase; Complete Time: 09:35 ec2 01/20 07:18 Order name: CT Abd/Pelvis - IV Contrast Only; Complete Time: 11:05 2 01/20 07:18 Order name: IV Saline Lock; Complete Time: 07:52 2 01/20 07:18 Order name: Labs collected and sent; Complete Time: 07:52 2 01/20 08:14 Order name: Labs - recollect needed: recollect green top; Complete Time: 08:53 bd Administered Medications: 08:06 Drug: NS 0.9% IV 1000 ml IV at 1 bolus Per protocol; 1000 mL bolus Route: IV; Rate: 1 iw bolus; Site: right antecubital; 09:00 Follow up: IV Status: Completed infusion iw 08:06 Drug: TORadol - Ketorolac IVP 15 mg IVP once Route: IVP; Site: right antecubital; iw 09:30 Follow up: Response: No adverse reaction iw 08:06 Drug: Ondansetron IVP 4 mg IVP once; over 2 minutes Route: IVP; Site: right antecubital;iw 09:00 Follow up: Response: No adverse reaction iw 08:07 Drug: morphine IVP or IV 4 mg IVP once over 4 mins Route: IVP; Infused Over: 4 mins; iw Site: right antecubital; 09:00 Follow up: Response: No adverse reaction; Pain is decreased iw Disposition Summary: 01/20/23 11:11 Discharge Ordered Notes: Location: Home ec2 Condition: Stable ec2 Diagnosis - Other chronic pancreatitis ec2 Followup: ec2 - With: Private Physician - When: - Reason: Continuance of care Discharge Instructions: - Discharge Summary Sheet ec2 - Chronic Pancreatitis ec2 Forms: - Medication Reconciliation Form ec2 - Thank You Letter ec2 - Antibiotic Education ec2 - Prescription Opioid Use ec2 - Patient Portal Instructions ec2 - Leadership Thank You Letter ec2 Prescriptions: - acetaminophen-codeine 300-15 mg Oral tablet - take 1 tablet ORAL route 2 times per day as needed for pain; 10 tablet; ec2 Refills: 0, Product Selection Permitted Signatures: Dispatcher [employer] EDMS Jayda Lala Irene, RN RN iw Slawson, Ashby, RN RN as6 Ortega Cotton MD MD ec2 Corrections: (The following items were deleted from the chart) 07:21 07:18 Patient arrives today with complaint of abdominal pain. States that she has a ec2 history of pancreatitis, states this feels similar. Patient reports the pain started several hours ago, is in the upper abdomen. Patient reports nausea without vomiting. Denies any diarrhea symptoms. Reports no urinary complaints. Patient reports previous history of cholecystectomy, hysterectomy.. ec2
[2023-01-20 12:02] VITALS: TEMP 98.3
[2023-01-20 12:06] VITALS: BP 175/67; O2SAT 98
== END 2023-01-20 11:39 | disposition home or self-care (01) ==
LOC: ER 06:35
DX: K86.1 Other chronic pancreatitis (principal)
CPT/HCPCS: 96361; 85025; 36415; 83690; 80053; 74177; 96375; 96374; 99284; Q9967; J2405

== ENCOUNTER 2023-03-02 11:39 | Day surgery (SDC) | payer OTHER ==
--- NOTE | 2023-02-24 10:46 | RAD REPORT ---
EXAM DESCRIPTION: RAD - Chest Pa And Lat (2 Views) - 02/24/2023 10:37 am CLINICAL HISTORY: pre op pending cystoscopy bladder biopsy Chest pain. COMPARISON: Chest Pa And Lat (2 Views) dated 09/12/2021; Chest Single View dated 07/27/2021; Chest Sing le View dated 12/16/2020; Abdomen 1 View (KUB) dated 09/26/2020 FINDINGS: The lungs are clear. The heart is normal in size. Small hiatal hernia. No displaced fractu res. Right port catheter has tip in the SVC. IMPRESSION: No acute or concerning finding suspected. The USPSTF recommends annual screening for lung cancer with low-dose CT (LDCT) in adults aged 50 to 8 0 years who have a 20 pack-year smoking history and currently smoke or have quit within the past 15 y ears.
[2023-02-24 11:03] LABS: Protime INR 1.11
--- NOTE | 2023-02-26 15:15 | EKG ---
Test Date: 2023-02-24 Test Time: 11:15:38 [employer] Specialist: LILLY MEASUREMENT RESULTS: Intervals: Rate: 65 KS: 170 QRSD: 136 QT: 468 QTc: 486 [place]: P: 48 KS: 170 QRS: -36 T: 142 INTERPRETIVE STATEMENTS: Normal sinus rhythm Left axis deviation Left bundle branch block Abnormal ECG Compared to ECG 08/10/2022 11:58:04 Left-axis deviation now present Electronically Signed On 02-26-23 15:10:15 PLATE WORKER HELPER by Adán Bennett
[2023-03-02] MEDS ORDERED: NA CHLORIDE 0.9% 1,000 ML ONE (12:12)
[2023-03-02] MEDS ORDERED: FAMOTIDINE 20 MG/2 ML VIAL IV ONE (12:42)
[2023-03-02] MEDS ORDERED: LIDOCAINE 1% MPF 5 ML VIAL ONE (13:44)
[2023-03-02] MEDS ORDERED: ONDANSETRON 4 MG/2 ML VIAL ONE ×2 (13:44→15:36)
[2023-03-02] MEDS ORDERED: FENTANYL CITR 100 MCG/2 ML ONE (13:45)
[2023-03-02] MEDS ORDERED: propofoL 200 MG/20 ML VIAL IV ONE (13:45)
[2023-03-02] MEDS ORDERED: MIDAZOLAM HCL 2 MG/2 ML INJ ONE (13:52)
[2023-03-02] MEDS ORDERED: Levofloxacin500mg IV 500 MG/100 ML BAG IV ONE (13:59)
[2023-03-02] MEDS: HYDROMORPHONE HCL 1 MG/ML INJ ONE ×4 (15:08→15:24)
[2023-03-02] MEDS ORDERED: PHENAZOPYRIDINE 100MG TAB PO ONE ×2 (15:15→15:32)
[2023-03-02] MEDS ORDERED: CODEINE 30MG/APAP 300MG TAB PO PRN (15:15)
[2023-03-02] MEDS ORDERED: KETOROLAC 30 MG/ML INJ ONE (15:19)
[2023-03-02] MEDS ORDERED: KETOROLAC 30 MG/ML INJ IV ONE (15:20)
[2023-03-02] MEDS ORDERED: OXYBUTYNIN ER 5 MG TAB PO ONE (15:32)
--- NOTE | 2023-03-02 16:29 | OP ---
Surgeon: RAUL SHAIKH Preoperative Diagnoses: 1.Recurrent urinary tract infections. 2.Florid incontinence. 3.Detrusor instability. Postoperative Diagnoses: 1.Recurrent urinary tract infections. 2.Florid incontinence. 3.Detrusor instability. 4.Cystitis. Principal Procedures: 1.Cystoscopy with hydrodistention. 2.Random bladder biopsies and fulguration. 3.Targeted incision of trabeculated muscle bundles. Indication For Procedure: Ms. Bettencourt is a 77-year-old woman, well known to me with multiple medical c omorbidities, who has presented with an issue with recurrent urinary tract infections refractory to a ttempts at suppressive antimicrobial therapy. Associated with this, she has had issues with florid i ncontinence that we have studied and attempted to manage with intradetrusor Botox administration with only transient to no success. As a result, because of the concern for the source of these recurrent infections as well as the refractory incontinence, I recommended repeat operative investigation elise use also of the appearance of chronic inflammatory change/cystitis of the bladder. Procedure Note: The patient was consented in the preoperative holding area before being transferred to the operative suite where general anesthesia was induced. She was given Levaquin 500 mg IV antimi crobial prophylaxis, and pneumo boots were provided for DVT prophylaxis. She was placed in the litho kevin position, padded and secured to the table appropriately. Her genitalia were prepped with Hibicl ens and she was draped in standard fashion. The case was begun using a 22-Swedish rigid cystoscope to traverse the urethra and into the bladder with ease. The bladder was decompressed of fluid and shelbie r urine. I then surveyed the bladder mucosa in its entirety, and there were no papillary mucosal les ions, foreign bodies, or stones. The ureteral orifices were orthotopic in location and the urine was clear and free of blood. There was evidence of mild cystitis throughout with erythematous regions o f the bladder and some residual mild cystitis cystica. Of note, she was treated with Levaquin in adv ance of the surgical procedure today. As a result, I proceeded to hydrodistend her bladder using nor mal saline at about 50 cm of water pressure or as much as her bladder would tolerate before being inc ontinent around the scope. Significant trabeculated muscle bundles were identified at this time and I allowed the bladder to remain distended for several minutes. I then decompressed the bladder and s witched for a cold cup biopsy forceps and then proceeded with biopsies of the bladder. Biopsies were taken from the trigone, posteriorly, the dome, the left lateral wall, and the right lateral wall. I then switched to sterile water irrigation and carefully fulgurated each of the biopsy sites performe d. Of note, I attempted to biopsy across a trabeculated muscle bundle where appropriate. Once adequ ate hemostasis had been obtained, I then again distended her bladder and observed the trabeculations and muscle bundles associated. I thus utilized the Bugbee electrode, which I had used to fulgurate t he base of the biopsy sites, to now incise, using cut at a level of 30 in a targeted fashion incise t he most dense and prominent of the trabeculations seen throughout her bladder. Approximately 6 or 7 targeted incisions of these muscle bundles were made through the muscle, but avoiding going through t he detrusor completely and entering extravesical fat. In the end, her bladder was hemostatic and was much less trabeculated following the hydrodistention, incision of the trabeculations and bladder bio psies. As a result, I decompressed her bladder of fluid and urine, and she was taken out of the lith otomy position. She was then awakened from general anesthesia, transferred to a stretcher, and then transferred to the recovery room in good condition. Complications: None. Discharge Disposition: She will complete the course of Levaquin prescribed, and then we will remind her to resume the once daily Macrobid after she finishes the Levaquin. Subsequent followup should be established where we will consider arranging repeat anatomic imaging with oral and rectal contrast a gain to rule out a fistulous connection potentially explaining her recurrent UTIs. Otherwise, if jael lure to control her detrusor instability related incontinence, consideration must be given beyond Botox therapy to implantable neuromodulation. LUCHO/MODL Voice ID: [id number] Report ID: [id number]
[2023-03-02 18:36] VITALS: BP 192/66; TEMP 97.7; O2SAT 96
[2023-03-03] MEDS ORDERED: OXYBUTYNIN ER 5 MG TAB PO ONE (15:32)
== END 2023-03-02 18:30 | disposition home or self-care (01) ==
LOC: OR 11:39
PROVIDERS: ATTEND Urology
PROC: 0TBB8ZX Excision of Bladder, Via Natural or Artificial Opening Endoscopic, Diagnostic (ICD-10-PCS; principal; 2023-03-02 14:30)
DX: N32.9 Bladder disorder, unspecified (principal); N39.0 Urinary tract infection, site not specified; R39.81 Functional urinary incontinence; N90.89 Other specified noninflammatory disorders of vulva and perineum; Z87.440 Personal history of urinary (tract) infections
CPT/HCPCS: 52204; 52260; 53899; 20999; 93005; 87088; 87086; 36415; 85610; 82947 ×2; 88305; 87077; 87186; 71046; J2704; J2250; J3010; J1170 ×2; J2405 ×2; J7030; J2001

== ENCOUNTER → 2023-03-22 | Emergency (ER) | payer OTHER ==
[~2023-03-22] MED LIST changes: -AMPICILLIN SODIUM 2 GM in NA CHLORIDE 0.9% 100 ML IVPB SCH; +FAMOTIDINE 20 MG TAB ONE; +FAMOTIDINE 20 MG/2 ML VIAL IV ONE; -Gentamicin Inj 240 MG in NA CHLORIDE 0.9% 100 ML IV SCH; +KETOROLAC 30 MG/ML INJ ONE; +METOCLOPRAMIDE 10 MG/2mL INJ ONE; +MORPHINE 4 MG/ML SYR ONE; +ONDANSETRON 4 MG/2 ML VIAL ONE; -Ringers Lactate 1,000 ML IV ONE
[2023-03-22 22:51] LABS: Absolute Lymphocytes (CBC) 1.9 K/uL (0.7-4.9); Hematocrit 43.2 % (36.0-45.0); Lymphocytes % 26.9 % (15.3-44.8); MPV 8.2 fL (7.6-11.3); Platelets 202 thou/uL (152-406); RBC Red Blood Cell Count 5.14 M/uL (3.86-4.86)
[2023-03-22 23:10] LABS: Protime INR 1.02
[2023-03-22 23:12] LABS: Albumin 3.6 g/dL (3.4-5.0); Bilirubin Direct 0.1 mg/dL (0-0.2); Bilirubin Indirect, Calculated 0.4 mg/dL (0.2-0.8); Bilirubin Total 0.5 mg/dL (0.2-1.0); Magnesium 1.9 mg/dL (1.6-2.4); Potassium 3.8 mEq/L (3.5-5.1); Protein, Total 8.2 g/dL (6.4-8.2); Troponin High Sensitivity 39.9 pg/mL (<58.9)
--- NOTE | 2023-03-23 01:07 | ER ---
Nurse's Notes [facility] Name: Isadora Bettencourt Age: 77 yrs Sex: Female : 1945 Arrival Date: 03/22/2023 Time: 22:15 Bed 18 Private MD: Diagnosis: Upper abdominal pain, unspecified;Nausea with vomiting, unspecified Presentation: 03/22 22:21 Chief complaint: EMS states: 77 year old female has a history of chronic pancreatitis [facility] and she believes she thinks her pancreas is acting out again. 22:21 Coronavirus screen: Vaccine status:. Ebola Screen: No symptoms or risks identified at [facility] this time. Initial Sepsis Screen: Does the patient meet any 2 criteria? No. Patient's initial sepsis screen is negative. Does the patient have a suspected source of infection? No. Patient's initial sepsis screen is negative. Risk Assessment: Do you want to hurt yourself or someone else? Patient reports no desire to harm self or others. Onset of symptoms was March 23, 2023. 22:21 Method Of Arrival: EMS: [facility] 22:21 Acuity: FRANDY 3 1 Triage Assessment: 22:21 General: Appears uncomfortable, Behavior is calm, cooperative. Pain: Complains of pain ha1 in left upper quadrant Pain does not radiate. Pain currently is 8 out of 10 on a pain scale. Quality of pain is described as crampy, throbbing. Neuro: Level of Consciousness is awake, alert, obeys commands, Oriented to person, place, time, situation. Cardiovascular: Capillary refill < 3 seconds Patient's skin is warm and dry. Respiratory: Airway is patent Respiratory effort is even, unlabored, Respiratory pattern is regular, symmetrical. GI: Abdomen is round obese, Bowel sounds present X 4 quads. Reports lower abdominal pain, upper abdominal pain, nausea, vomiting. : No signs and/or symptoms were reported regarding the genitourinary system. Derm: Skin is pink, warm \T\ dry. Musculoskeletal: Circulation, motion, and sensation intact. Range of motion: intact in all extremities. Historical: - Allergies: 22:25 No Known Allergies; ha1 - PMHx: 22:25 Anxiety; diabetes mellitus; Hypertension; Kidney stones; Pancreatitis; ha1 - PSHx: 22:25 Appendectomy; back; Bladder; Cholecystectomy; knee; Total abdominal hysterectomy; wrist;ha1 - Immunization history:: Adult Immunizations not up to date. - Social history:: Smoking status: Patient/guardian denies using tobacco, the patient reports quitting approximately 30 years ago. Screenin:30 [facility] ED Fall Risk Assessment (Adult) History of falling in the last 3 months, ha1 including since admission Yes- single mechanical fall (1 pt) Confusion or Disorientation No (0 pts) Intoxicated or Sedated No (0 pts) Impaired Gait Yes (1 pt) Mobility Assist Device Used Yes (1 pt) Altered Elimination No (0 pt) Score/Fall Risk Level 0 - 2 = Low Risk Oriented to surroundings, Maintained a safe environment, Educated pt \T\ family on fall prevention, incl call for assistance when getting out of bed, Hourly rounding (assess needs \T\ fall precautionary measures) done. Abuse screen: Denies threats or abuse. Denies injuries from another. Nutritional screening: No deficits noted. Tuberculosis screening: No symptoms or risk factors identified. Assessment: 22:21 Reassessment: see triage assessment. ha1 23:00 Reassessment: Patient and/or family updated on plan of care and expected duration. Pain ha1 level reassessed. Patient is alert, oriented x 3, equal unlabored respirations, skin warm/dry/pink. 03/23 00:00 Reassessment: Patient and/or family updated on plan of care and expected duration. Pain ha1 level reassessed. Patient is alert, oriented x 3, equal unlabored respirations, skin warm/dry/pink. 01:00 Reassessment: Patient and/or family updated on plan of care and expected duration. Pain ha1 level reassessed. Patient is alert, oriented x 3, equal unlabored respirations, skin warm/dry/pink. reports nausea. 01:30 Reassessment: Patient and/or family updated on plan of care and expected duration. Pain ha1 level reassessed. Patient is alert, oriented x 3, equal unlabored respirations, skin warm/dry/pink. Patient states feeling better. Patient states symptoms have improved. Vital Signs: 03/22 22:21 BP 202 / 102; Pulse 95; Resp 17 S; Temp 98.2(O); Pulse Ox 97% on R/A; Weight 75.3 kg; ha1 Height 5 ft. 1 in. ; 23:00 BP 194 / 95; Pulse 87; Resp 17 S; Pulse Ox 96% on R/A; ha1 03/23 00:00 BP 165 / 86; Pulse 89; Resp 17 S; Pulse Ox 95% on R/A; ha1 01:00 BP 168 / 82; Pulse 83; Resp 17 S; Pulse Ox 95% on R/A; ha1 03/22 22:21 Body Mass Index 31.37 (75.30 kg, 154.94 cm) ha1 ED Course: 03/22 22:21 Patient arrived in ED. ha1 22:21 Patient has correct armband on for positive identification. Placed in gown. Bed in low ha1 position. Call light in reach. Side rails up X 1. 22:21 Arm band placed on right wrist. ha1 22:22 Anthony Osorio PA is PHCP. cp 22:22 Ortega Cotton MD is Attending Physician. cp 22:35 Danni Hudson RN is Primary Nurse. ha1 22:49 XRAY Chest (1 view) In Process Unspecified. EDMS 23:00 Inserted saline lock: 20 gauge in left forearm, using aseptic technique. Blood ha1 collected. 03/23 00:13 CT Abd/Pelvis - IV Contrast Only In Process Unspecified. EDMS 00:33 Triage completed. ha1 01:37 No provider procedures requiring assistance completed. IV discontinued, intact, ha1 bleeding controlled, No redness/swelling at site. Pressure dressing applied. 01:39 Provided Education on: follow up with PCP. ha1 Administered Medications: 03/22 22:45 Drug: Famotidine IVP 20 mg IVP once; dilute with 10 mL 0.9% NaCl; give over 2 minutes ha1 Route: IVP; Site: left forearm; 23:00 Follow up: Response: No adverse reaction; Marked relief of symptoms ha1 22:47 Drug: Ondansetron IVP 4 mg IVP once; over 2 minutes Route: IVP; Site: left forearm; ha1 23:00 Follow up: Response: No adverse reaction; Marked relief of symptoms ha1 22:50 Drug: morphine IVP or IV 4 mg IVP once over 4 mins Route: IVP; Infused Over: 4 mins; ha1 Site: left forearm; 23:15 Follow up: Response: No adverse reaction; Pain is decreased; RASS: Alert and Calm (0) ha1 03/23 01:02 Drug: metoCLOPramide IVP 10 mg IVP once; over 1 to 2 minutes Route: IVP; Site: left ha forearm; 01:30 Follow up: Response: No adverse reaction; Nausea is decreased ha1 01:04 Drug: Ketorolac IM 15 mg IM once {Note: given IV as ordered by provider .} Route: IM; ha1 Site: Other; 01:30 Follow up: Response: No adverse reaction ha1 Medication: 01:39 VIS not applicable for this client. ha1 Outcome: 01:06 Discharge ordered by MD. marmolejo 01:37 Discharged to home ha1 01:37 Condition: stable 01:37 Discharge instructions given to patient, Instructed on discharge instructions, follow up and referral plans. medication usage, Demonstrated understanding of instructions, follow-up care, medications, Prescriptions given X 2, 01:40 Patient left the ED. ha1 Signatures: Dispatcher [employer] EDMS Anthony Osorio PA PA cp Ayala, Heidy, RN RN 1 Corrections: (The following items were deleted from the chart) 01:29 01:28 Ketorolac IM 15 mg IM in Other; given IV as ordered by provider ha1 ha1
--- NOTE | 2023-03-23 01:07 | EDPHYS ---
Physician Documentation [facility] Name: Isadora Bettencourt Age: 77 yrs Sex: Female : 1945 Arrival Date: 03/22/2023 Time: 22:15 Bed 18 Private MD: ED Physician Ortega Cotton HPI: 03/22 22:30 This 77 yrs old Female presents to ER via EMS with complaints of Upper Abdomen Pain. cp 22:30 The patient presents with abdominal pain in the upper abdomen. cp 22:30 Onset: The symptoms/episode began/occurred 2 day(s) ago. cp 22:30 Associated signs and symptoms: Pertinent positives: nausea and vomiting, chest pain, cp Pertinent negatives: constipation, diarrhea, fever, vomiting blood. The symptoms are described as waxing/waning. The patient has experienced similar episodes in the past, multiple times, today's symptoms are similar, to when the patient was apparently diagnosed with pancreatitis. Historical: - Allergies: 22:25 No Known Allergies; ha1 - PMHx: 22:25 Anxiety; diabetes mellitus; Hypertension; Kidney stones; Pancreatitis; ha1 - PSHx: 22:25 Appendectomy; back; Bladder; Cholecystectomy; knee; Total abdominal hysterectomy; wrist;ha1 - Immunization history:: Adult Immunizations not up to date. - Social history:: Smoking status: Patient/guardian denies using tobacco, the patient reports quitting approximately 30 years ago. ROS: 22:35 Constitutional: Negative for body aches, chills, fever, cp 22:35 Eyes: Negative for injury, pain, redness, and discharge, cp 22:35 ENT: Negative for drainage from ear(s), ear pain, sore throat, difficulty swallowing, difficulty handling secretions, 22:35 Cardiovascular: Negative for chest pain, palpitations, 22:35 Respiratory: Negative for cough, shortness of breath, wheezing, 22:35 Abdomen/GI: Positive for abdominal pain, nausea and vomiting, of the epigastric area, Negative for diarrhea, constipation, hematemesis, 22:35 Neuro: Negative for altered mental status, dizziness, headache, syncope, weakness, 22:35 All other systems are negative, Exam: 22:40 Constitutional: The patient appears in no acute distress, alert, awake, cp non-diaphoretic, non-toxic, well developed, well nourished, uncomfortable, 22:40 Head/Face: Normocephalic, atraumatic. cp 22:40 Eyes: Periorbital structures: appear normal, Conjunctiva: normal, no exudate, no injection, Sclera: no appreciated abnormality, Lids and lashes: appear normal, bilaterally, 22:40 ENT: External ear(s): are unremarkable, Nose: is normal, Mouth: Lips: moist, Oral mucosa: pink and intact, moist, Posterior pharynx: Airway: no evidence of obstruction, patent, 22:40 Chest/axilla: Inspection: normal, 22:40 Cardiovascular: Rate: normal, Rhythm: regular, Edema: is not appreciated, JVD: is not appreciated, 22:40 Respiratory: the patient does not display signs of respiratory distress, Respirations: normal, no use of accessory muscles, no retractions, labored breathing, is not present, Breath sounds: are clear throughout, no decreased breath sounds, no stridor, no wheezing, 22:40 Abdomen/GI: Inspection: abdomen appears normal, Bowel sounds: active, all quadrants, Palpation: soft, in all quadrants, moderate abdominal tenderness, in the epigastric area, right upper quadrant and left upper quadrant, rebound tenderness, is not appreciated, involuntary guarding, is not appreciated, 22:40 Back: CVA tenderness, is absent, 22:40 Neuro: Orientation: to person, place \T\ time. Mentation: is normal, Motor: is normal, Sensation: is normal, Vital Signs: 22:21 BP 202 / 102; Pulse 95; Resp 17 S; Temp 98.2(O); Pulse Ox 97% on R/A; Weight 75.3 kg; ha1 Height 5 ft. 1 in. ; 23:00 BP 194 / 95; Pulse 87; Resp 17 S; Pulse Ox 96% on R/A; ha1 03/23 00:00 BP 165 / 86; Pulse 89; Resp 17 S; Pulse Ox 95% on R/A; ha1 01:00 BP 168 / 82; Pulse 83; Resp 17 S; Pulse Ox 95% on R/A; ha1 03/22 22:21 Body Mass Index 31.37 (75.30 kg, 154.94 cm) [facility] MDM: 03/22 22:23 Patient medically screened. cp 23:00 Differential diagnosis: AAA, acute coronary syndrome, bowel obstruction, non-specific cp abd pain, pancreatitis, Peptic Ulcer Disease, Perf. Duodenal Ulcer, Perf. Gastric Ulcer, Peritonitis, Ureterolithiasis, urinary tract infection. 03/23 01:05 Data reviewed: vital signs, nurses notes, lab test result(s), EKG, radiologic studies, cp CT scan, plain films, and as a result, I will discharge patient. 01:05 I considered the following discharge prescriptions or medication management in the emergency department Medications were administered in the Emergency Department. See MAR. Care significantly affected by the following chronic conditions: Diabetes, Hypertension, pancreatitis. Response to treatment: the patient's symptoms have markedly improved after treatment, and as a result, I will discharge patient. Special discussion: Based on the patient's Hx, exam, and Dx evaluation, there is no indication for emergent surgery or inpatient Tx. It is understood by the patient/guardian that if the Sx's persist or worsen they need to return immediately for re-evaluation. 03/22 22:23 Order name: Basic Metabolic Panel; Complete Time: 23:16 03/23 00:58 Interpretation: Normal except: GLUC 227; GFR 66. 03/22 22:23 Order name: CBC with Diff; Complete Time: 23:07 03/22 23:07 Interpretation: Normal except: RBC 5.14; HGB 15.2; RDW 15.5. 03/22 22:23 Order name: LFT's; Complete Time: 23:16 03/23 00:58 Interpretation: Normal except: AST 14; GLOB 4.6; A/G 0.8. 03/22 22:23 Order name: Magnesium; Complete Time: 23:16 03/22 22:23 Order name: PT-INR; Complete Time: 23:16 03/22 22:23 Order name: Troponin HS; Complete Time: 23:16 03/22 22:23 Order name: Lipase; Complete Time: 23:16 03/22 22:23 Order name: XRAY Chest (1 view) 03/22 23:17 Order name: CT Abd/Pelvis - IV Contrast Only 03/22 22:23 Order name: EKG; Complete Time: 22:24 03/22 22:23 Order name: Cardiac monitoring; Complete Time: 23:14 03/22 22:23 Order name: EKG - Nurse/Tech; Complete Time: 23:14 cp 03/22 22:23 Order name: IV Saline Lock; Complete Time: 23:14 cp 03/22 22:23 Order name: Labs collected and sent; Complete Time: 23:14 cp 03/22 22:23 Order name: O2 Per Protocol; Complete Time: 23:14 cp 03/22 22:23 Order name: O2 Sat Monitoring; Complete Time: 23:14 cp 03/22 23:51 Order name: Vital Signs; Complete Time: 00:01 cp 03/23 00:56 Order name: PO challenge; Complete Time: 01:18 cp Administered Medications: 03/22 22:45 Drug: Famotidine IVP 20 mg IVP once; dilute with 10 mL 0.9% NaCl; give over 2 minutes ha1 Route: IVP; Site: left forearm; 23:00 Follow up: Response: No adverse reaction; Marked relief of symptoms ha1 22:47 Drug: Ondansetron IVP 4 mg IVP once; over 2 minutes Route: IVP; Site: left forearm; ha1 23:00 Follow up: Response: No adverse reaction; Marked relief of symptoms ha1 22:50 Drug: morphine IVP or IV 4 mg IVP once over 4 mins Route: IVP; Infused Over: 4 mins; 1 Site: left forearm; 23:15 Follow up: Response: No adverse reaction; Pain is decreased; RASS: Alert and Calm (0) [facility] 03/23 01:02 Drug: metoCLOPramide IVP 10 mg IVP once; over 1 to 2 minutes Route: IVP; Site: left ha1 forearm; 01:30 Follow up: Response: No adverse reaction; Nausea is decreased 1 01:04 Drug: Ketorolac IM 15 mg IM once {Note: given IV as ordered by provider .} Route: IM; [facility] Site: Other; 01:30 Follow up: Response: No adverse reaction [facility] Disposition Summary: 03/23/23 01:06 Discharge Ordered Notes: Location: Home cp Problem: an ongoing problem cp Symptoms: have improved cp Condition: Stable cp Diagnosis - Upper abdominal pain, unspecified cp - Nausea with vomiting, unspecified cp Followup: cp - With: Private Physician - When: 2 - 3 days - Reason: Recheck today's complaints Discharge Instructions: - Discharge Summary Sheet cp - Abdominal Pain, Adult cp - Nausea and Vomiting, Adult cp Forms: - Medication Reconciliation Form cp - Thank You Letter cp - Antibiotic Education cp - Prescription Opioid Use cp - Patient Portal Instructions cp - Leadership Thank You Letter cp Prescriptions: - Pepcid 20 mg Oral Tablet - take 1 tablet ORAL route every 12 hours for 10 days; 20 tablet; Refills: 0, cp Product Selection Permitted - Zofran 4 mg Oral Tablet - take 1 tablet ORAL route every 12 hours As needed; 20 tablet; Refills: 0, cp Product Selection Permitted Signatures: Dispatcher [employer] EDMS Anthony Osorio PA PA cp Danni Hudson RN RN ha1 Corrections: (The following items were deleted from the chart) 00:57 00:56 This 77 yrs old Female presents to ER via EMS with complaints of Upper Abdomen cp Pain. cp 20:19 20:16 Constitutional: The patient appears in no acute distress, alert, awake, cp cp
[2023-03-23 02:53] VITALS: TEMP 98.2
[2023-03-23 03:09] VITALS: BP 168/82; O2SAT 95
--- NOTE | 2023-03-24 14:29 | RAD REPORT ---
CLINICAL HISTORY: Epigastric pain. COMPARISON: None. TECHNIQUE: Single view AP chest radiograph(s). FINDINGS: Right IJ infusion port catheter terminates in the distal SVC. No pulmonary consolidation. No pleural effusion. No pneumothorax. Nonenlarged cardiomediastinal silhouette. No significant osseou s abnormality. No free air beneath the diaphragm. IMPRESSION: No acute cardiopulmonary abnormality identified by radiograph. Electronically signed by: Kellie Toure MD 03/22/2023 10:54 PM ZIPPER MEASURER Due to temporary technical issues with the PACS/Fluency reporting system, reports are being signed by the in house radiologists without review as a courtesy to insure prompt reporting. The interpreting radiologist is fully responsible for the content of the report.
--- NOTE | 2023-03-24 15:24 | RAD REPORT ---
EXAM DESCRIPTION: CT ABDOMEN AND PELVIS WITH CONTRAST CLINICAL HISTORY: ABD PAIN COMPARISON: 01/20/2023 TECHNIQUE: CT of the abdomen and pelvis performed following IV administration of iodinated contras t. This exam was performed according to our departmental dose-optimization program, which includes au tomated exposure control, adjustment of the mA and/or kV according to patient size and/or use of iter ative reconstruction technique. FINDINGS: Lung Bases: The visualized lung bases are clear. Bones: Levoconvex scoliosis of the lumbar spine. Multilevel endplate spondylosis, disc narrowing, and facet arthropathy. Osteopenia. Osteoarthritic change of the hips. Abdomen: Liver: Hepatomegaly and decreased density. No intrahepatic biliary dilatation. Gallbladder: No calcified gallstones. Spleen, Pancreas, and Adrenal Glands: The spleen and adrenal glands are unremarkable. Stable atroph y of the tail of the pancreas. Kidneys: No hydronephrosis or obstructing calculus. Vasculature: Aortoiliac atherosclerosis. IVC is unremarkable. The portal vein is patent. The proxim al visceral and renal arteries are patent. Stomach: Large hiatal hernia. Other: No free intraperitoneal air. No free fluid or lymphadenopathy. Mild hazy appearance of the mid abdominal mesentery is stable. Pelvis: Bladder: Urinary bladder is unremarkable. Bowel: No dilated loops of large or small bowel. Scattered diverticula of the colon. Moderate amoun t of stool. Appendix: Normal appendix. Pelvis: Prior hysterectomy. IMPRESSION: 1. Stable haziness of the mid abdominal mesentery could be related to nonspecific mese nteritis or related to previous episodes of pancreatitis. 2. Hepatomegaly and hepatic steatosis. 3. Large hiatal hernia. 4. Diverticulosis without evidence of acute diverticulitis. Electronically signed by: Mikel Pulido DO 03/23/2023 12:35 AM INDUSTRIAL TRUCK MECHANIC M Due to temporary technical issues with the PACS/Fluency reporting system, reports are being signed by the in house radiologists without review as a courtesy to insure prompt reporting. The interpreting radiologist is fully responsible for the content of the report.
== END ==
LOC: ER 22:15
DX: R10.13 Epigastric pain (principal); R11.2 Nausea with vomiting, unspecified; I10 Essential (primary) hypertension
CPT/HCPCS: 93005; 85025; 80048; 36415; 83735; 85610; 80076; 84484; 83690; 74177; 71045; Q9967; J2405

== ENCOUNTER → 2023-05-20 | Emergency (ER) | payer OTHER ==
[~2023-05-20] MED LIST changes: -FAMOTIDINE 20 MG TAB ONE; -FAMOTIDINE 20 MG/2 ML VIAL IV ONE; -KETOROLAC 30 MG/ML INJ ONE; +LIDOCAINE VISCOUS 2% 10ML ORAL SOLN ONE; +MAGNES/ALUMIN/SIMET 30ML UCUP ONE; -METOCLOPRAMIDE 10 MG/2mL INJ ONE; +MORPHINE 2 MG/ML SYR ONE
--- NOTE | 2023-05-20 16:25 | RAD REPORT ---
EXAM DESCRIPTION: RAD - Forearm Right - 05/20/2023 4:18 pm CLINICAL HISTORY: PAIN COMPARISON: <Comparisons> FINDINGS: Mild radiocarpal joint arthritic changes. No fracture or dislocation.
--- NOTE | 2023-05-20 16:25 | RAD REPORT ---
EXAM DESCRIPTION: RAD - Knee Left 3 View - 05/20/2023 4:18 pm CLINICAL HISTORY: PAIN COMPARISON: <Comparisons> FINDINGS: Study is limited by nonstandard anatomic positioning. Within this limitation, no fracture or dislocation seen.
--- NOTE | 2023-05-20 16:26 | RAD REPORT ---
EXAM DESCRIPTION: RAD - Hip Left 2 View - 05/20/2023 4:18 pm CLINICAL HISTORY: PAIN COMPARISON: <Comparisons> FINDINGS: No acute fracture, dislocation or AVN seen.
[2023-05-20 17:07] LABS: Absolute Eosinophils 0.1 K/uL (0-0.5); Absolute Lymphocytes (CBC) 1.6 K/uL (0.7-4.9); Absolute Monocytes 0.6 K/uL (0.1-1.3); Absolute Neutrophil 4.7 K/uL (1.8-8.0); Basophils % 0.4 % (0-1.3); Eosinophils % 1.8 % (0-4.4); Hematocrit 41.8 % (36.0-45.0); Hemoglobin 14.2 g/dL (12.0-15.0); Lymphocytes % 22.7 % (15.3-44.8); MCH 29.7 pg (27.0-35.0); MCV 87.1 fL (80-100); MPV 8.1 fL (7.6-11.3); Monocytes % 8.5 % (3.3-12.3); Neutrophils % 66.6 % (41.7-73.7); Nucleated Red Blood Cells % 0.1 % (0-0); Platelets 211 thou/uL (152-406); Red Cell Distribution Width 14.1 % (12.1-15.2)
--- NOTE | 2023-05-20 17:17 | RAD REPORT ---
EXAM DESCRIPTION: RAD - Chest Single View - 05/20/2023 4:58 pm CLINICAL HISTORY: CHEST PAIN Chest pain. COMPARISON: <Comparisons> FINDINGS: Portable technique limits examination quality. The lungs are grossly clear. The heart is normal in size. No displaced fractures.Right-sided venous c atheter its tip in the SVC. IMPRESSION: No acute intrathoracic process suspected.
[2023-05-20 17:38] LABS: Albumin 3.3 g/dL (3.4-5.0); Albumin/Globulin Ratio 0.8 (1.1-1.8); Bilirubin Direct 0.1 mg/dL (0-0.2); Bilirubin Indirect, Calculated 0.3 mg/dL (0.2-0.8); Bilirubin Total 0.4 mg/dL (0.2-1.0); Globulin 4.1 g/dL (2.3-3.5); Protein, Total 7.4 g/dL (6.4-8.2); Troponin High Sensitivity 10.3 pg/mL (<58.9)
[2023-05-20 17:39] LABS: Magnesium 2.2 mg/dL (1.6-2.4)
--- NOTE | 2023-05-20 18:41 | RAD REPORT ---
EXAM DESCRIPTION: CT - Thorax Wo Con CLINICAL HISTORY: Chest pain PAIN COMPARISON: <Comparisons> FINDINGS: The lungs are clear. No pleural thickening or pleural effusion. No pneumothorax. No axillary, mediastinal or hilar adenopathy. Moderate hiatal hernia. No concerning bony finding. Pneumobilia in the liver. Right-sided port catheter. All CT scans are performed using dose optimization technique as appropriate and may include automated exposure control or mA/KV adjustment according to patient size. IMPRESSION: No acute finding evident.
--- NOTE | 2023-05-20 18:49 | RAD REPORT ---
EXAM DESCRIPTION: CT - Pelvis Wo Cont - 05/20/2023 6:32 pm CLINICAL HISTORY: TRAUMA Trauma, pain COMPARISON: Pelvis Wo Cont dated 08/16/2020; Hip Left 2 View dated 05/20/2023; Chest Single View dated 05/20/2023; Knee Left 2 View dated 05/20/2023 TECHNIQUE: All CT scans are performed using dose optimization technique as appropriate and may inclu de automated exposure control or mA/KV adjustment according to patient size. FINDINGS: No pelvic mass or hematoma. Moderate sigmoid diverticulosis coli without diverticulitis. Both sacroiliac joints are intact. No acute fracture or dislocation seen. No femoral head AVN. IMPRESSION: No acute process seen. All CT scans are performed using dose optimization technique as appropriate and may include automated exposure control or mA/KV adjustment according to patient size.
--- NOTE | 2023-05-20 19:35 | ER ---
Nurse's Notes [facility] Name: Isadora Bettencourt Age: 77 yrs Sex: Female : 1945 Arrival Date: 05/20/2023 Time: 14:56 Bed 8 Private MD: Diagnosis: Mechanical fall;Left hip pain;Chest wall pain Presentation: 05/19 15:34 Chief complaint: Patient states: Tripped and fell while ambulating with cane, c/o pain ph to L hip, leg shortened and externally rotated, abrasion to RAC area, denies hitting head or LOC, VSS, 24G to L wrist. Coronavirus screen: Vaccine status: Patient reports receiving the 2nd dose of the covid vaccine. Ebola Screen: No symptoms or risks identified at this time. Initial Sepsis Screen: Does the patient meet any 2 criteria? No. Patient's initial sepsis screen is negative. Does the patient have a suspected source of infection? No. Patient's initial sepsis screen is negative. Risk Assessment: Do you want to hurt yourself or someone else? Patient reports no desire to harm self or others. Onset of symptoms was May 20, 2023. 15:34 Method Of Arrival: EMS: [facility] 15:34 Acuity: FRANDY 3 ph Triage Assessment: 15:41 General: Appears in no apparent distress. uncomfortable, Behavior is calm, cooperative. ph Pain: Complains of pain in left hip. Pain: Complains of pain in left huerta. Pain: Complains of pain in right arm. Neuro: Level of Consciousness is awake, alert, obeys commands, Oriented to person, place, time, situation. Cardiovascular: Capillary refill < 3 seconds in bilateral fingers toes Patient's skin is warm and dry. Historical: - Allergies: 15:39 No Known Allergies; ph - PMHx: 15:39 Anxiety; diabetes mellitus; Hypertension; Kidney stones; Pancreatitis; ph - PSHx: 15:39 Appendectomy; back; Bladder; Cholecystectomy; knee; Total abdominal hysterectomy; wrist;ph - Immunization history:: Adult Immunizations unknown. - Social history:: Smoking status: unknown. - Family history:: not pertinent. Screenin:51 [facility] ED Fall Risk Assessment (Adult) History of falling in the last 3 months, ph including since admission Yes- fall prone (multiple falls) (3 pts) Confusion or Disorientation No (0 pts) Intoxicated or Sedated No (0 pts) Impaired Gait Yes (1 pt) Mobility Assist Device Used Yes (1 pt) Altered Elimination No (0 pt) Score/Fall Risk Level 3 or more points = High Risk Oriented to surroundings, Maintained a safe environment, Educated pt \T\ family on fall prevention, incl call for assistance when getting out of bed, Hourly rounding (assess needs \T\ fall precautionary measures) done, Used ambulatory aids as needed (educated on \T\ assisted with). Abuse screen: Denies threats or abuse. Denies injuries from another. Nutritional screening: No deficits noted. Tuberculosis screening: No symptoms or risk factors identified. Assessment: 15:52 General: Appears in no apparent distress. uncomfortable, Behavior is calm, cooperative, ph appropriate for age. Pain: Complains of pain in right arm and left huerta and left hip. Neuro: Level of Consciousness is awake, alert, obeys commands, Oriented to person, place, time, situation. Cardiovascular: Capillary refill < 3 seconds in bilateral fingers toes Patient's skin is warm and dry. Respiratory: Airway is patent Respiratory effort is even, unlabored, Respiratory pattern is regular, symmetrical. GI: No signs and/or symptoms were reported involving the gastrointestinal system. Derm: Skin is pink, warm \T\ dry. Musculoskeletal: Circulation, motion, and sensation intact. Injury Description: Abrasion sustained to right antecubital area. 16:15 Reassessment: Pt c/o L sided chest pain, ERP notified, EKG obtained, see [facility] for ph further orders. 18:09 Reassessment: Patient appears in no apparent distress at this time. Patient and/or ph family updated on plan of care and expected duration. Pain level reassessed. Patient is alert, oriented x 3, equal unlabored respirations, skin warm/dry/pink. 19:34 General: Appears in no apparent distress. uncomfortable, Behavior is calm, cooperative, vc1 appropriate for age. Pain: Complains of pain in right arm and left leg Pain does not radiate. Pain currently is 4 out of 10 on a pain scale. Quality of pain is described as tender, Pain began suddenly, Is intermittent, Alleviated by rest, Aggravated by increased activity, repositioning, weight bearing. Neuro: Level of Consciousness is awake, alert, obeys commands, Oriented to person, place, time, situation. Cardiovascular: Heart tones S1 S2 Capillary refill Patient's skin is warm and dry. Respiratory: Airway is patent Respiratory effort is even, unlabored, Respiratory pattern is regular, symmetrical, Breath sounds are clear bilaterally. GI: No signs and/or symptoms were reported involving the gastrointestinal system. : No deficits noted. No signs and/or symptoms were reported regarding the genitourinary system. EENT: No deficits noted. No signs and/or symptoms were reported regarding the EENT system. Derm: Skin is pink, warm \T\ dry. Wound noted right arm. Musculoskeletal: Circulation, motion, and sensation intact. Reports pain in left leg. Vital Signs: 15:34 BP 123 / 106; Pulse 71; Resp 18; Temp 97.9; Pulse Ox 100% on R/A; Weight 74.84 kg; ph Height 5 ft. 1 in. ; 16:44 BP 179 / 84; Pulse 75; Resp 18; Pulse Ox 98% on R/A; ph 18:09 BP 175 / 77; Pulse 64; Resp 18; Pulse Ox 97% on R/A; ph 19:08 BP 150 / 56; Pulse 62; Resp 18; Pulse Ox 95% on R/A; ph 19:37 BP 107 / 91; Pulse 81; Resp 18; Pulse Ox 98% ; vc1 15:34 Body Mass Index 31.18 (74.84 kg, 154.94 cm) ph Vitals: 16:44 Cardiac Rhythm Assessment Sinus rhythm W/unifocal PVC's. ph ED Course: 15:11 Patient arrived in ED. as6 15:14 Efrain Smith MD is Attending Physician. rt 15:27 Elizabeth Desai, SHARMAINE is Primary Nurse. ph 15:39 Triage completed. ph 15:45 Antipyretic given from triage as ordered by the ER provider. Arm band placed on. ph 15:51 Maintain EMS IV. Dressing intact. Site clean \T\ dry. Gauge \T\ site: 24 L wrist. ph 15:52 Patient has correct armband on for positive identification. Bed in low position. Call ph light in reach. Side rails up X2. Pulse ox on. NIBP on. Door closed. Noise minimized. Warm blanket given. 16:20 Hip Left 2 View XRAY In Process Unspecified. EDMS 16:20 Forearm Right XRAY In Process Unspecified. EDMS 16:25 Knee Left 2 View In Process Unspecified. EDMS 16:43 Basic Metabolic Panel Sent. ph 16:43 CBC with Diff Sent. ph 16:43 LFT's Sent. ph 16:43 Magnesium Sent. ph 16:43 Troponin HS Sent. ph 16:46 Initial lab(s) drawn, by me, sent to lab. EKG done, by ED staff, reviewed by Efrain Smith MD. Inserted saline lock: 22 gauge in left forearm, using aseptic technique. 17:00 XRAY Chest (1 view) In Process Unspecified. EDMS 18:34 CT Chest Wo Con In Process Unspecified. EDMS 18:34 CT Pelvis wo Cont In Process Unspecified. EDMS 20:28 Provided Education on: follow up with ortho, fall safety. vc1 20:28 No provider procedures requiring assistance completed. IV discontinued, intact, vc1 bleeding controlled, No redness/swelling at site. Pressure dressing applied. Administered Medications: 15:50 Drug: morphine IVP or IV 4 mg IVP once over 4 mins Route: IVP; Infused Over: 4 mins; ph Site: left wrist; 19:42 Follow up: Response: No adverse reaction; Marked relief of symptoms vc1 15:50 Drug: Ondansetron IVP 4 mg IVP once; over 2 minutes Route: IVP; Site: left wrist; ph 19:42 Follow up: Response: No adverse reaction; Marked relief of symptoms vc1 20:07 Drug: morphine IVP or IV 2 mg IVP once over 4 mins Route: IVP; Infused Over: 4 mins; vc1 Site: left forearm; 20:30 Follow up: Response: No adverse reaction; Marked relief of symptoms; Pain is decreased vc1 20:07 Drug: Alum-Mag Hydroxide-Simeth PO Suspension (200 mg-200 mg-20 mg/5 mL) 30 ml PO once vc1 Route: PO; 20:29 Follow up: Response: Medication administered at discharge. vc1 Medication: 15:51 VIS not applicable for this client. ph Outcome: 19:35 Discharge ordered by . rt 20:28 Discharged to home via wheelchair, with family, vc1 20:28 Condition: good 20:28 Discharge instructions given to patient, Instructed on discharge instructions, follow up and referral plans. medication usage, Demonstrated understanding of instructions, follow-up care, medications, Prescriptions given X 1, 20:29 Patient left the ED. vc1 Signatures: Dispatcher [employer] Elizabeth Gale RN RN Woo Adair RN RN as6 Clotilde Means RN RN vc1 Efrain Smith MD MD rt Corrections: (The following items were deleted from the chart) 16:25 16:20 In radiology for Knee Left 3 View+RAD.RAD.BRZ. ALISA CUELLAR
--- NOTE | 2023-05-20 19:36 | EDPHYS ---
Physician Documentation [facility] Name: Isadora Bettencourt Age: 77 yrs Sex: Female : 1945 Arrival Date: 05/20/2023 Time: 14:56 Bed 8 Private MD: ED Physician Efrain Smith HPI: 05/19 16:57 This 77 yrs old Female presents to ER via EMS with complaints of Hip Pain, Fall Injury. rt 16:57 Patient presents to the ED with a left hip pain after mechanical fall. Patient denies rt syncopal event. Reports pain to the left hip, left knee. Ports bruising to the right elbow. Denies other acute complaints, symptoms are moderate in severity, no other aggravating or alleviating factors.. Historical: - Allergies: 15:39 No Known Allergies; ph - PMHx: 15:39 Anxiety; diabetes mellitus; Hypertension; Kidney stones; Pancreatitis; ph - PSHx: 15:39 Appendectomy; back; Bladder; Cholecystectomy; knee; Total abdominal hysterectomy; wrist;ph - Immunization history:: Adult Immunizations unknown. - Social history:: Smoking status: unknown. - Family history:: not pertinent. ROS: 16:57 Constitutional: Negative for fever, chills, and weight loss, Cardiovascular: Negative rt for chest pain, palpitations, and edema, Respiratory: Negative for shortness of breath, cough, wheezing, and pleuritic chest pain, Abdomen/GI: Negative for abdominal pain, nausea, vomiting, diarrhea, and constipation, MS/Extremity: Negative for injury and deformity, Skin: Negative for injury, rash, and discoloration, Neuro: Negative for headache, weakness, numbness, tingling, and seizure, 16:57 MS/extremity: Positive for contusion, pain, Exam: 16:57 Constitutional: This is a well developed, well nourished patient who is awake, alert, rt and in no acute distress. Head/Face: Normocephalic, atraumatic. Chest/axilla: Normal chest wall appearance and motion. Nontender with no deformity. No lesions are appreciated. Cardiovascular: Regular rate and rhythm with a normal S1 and S2. No gallops, murmurs, or rubs. Normal PMI, no JVD. No pulse deficits. Respiratory: Lungs have equal breath sounds bilaterally, clear to auscultation and percussion. No rales, rhonchi or wheezes noted. No increased work of breathing, no retractions or nasal flaring. Abdomen/GI: Soft, non-tender, with normal bowel sounds. No distension or tympany. No guarding or rebound. No evidence of tenderness throughout. Skin: Warm, dry with normal turgor. Normal color with no rashes, no lesions, and no evidence of cellulitis. Neuro: Awake and alert, GCS 15, oriented to person, place, time, and situation. Cranial nerves II-XII grossly intact. Motor strength 5/5 in all extremities. Sensory grossly intact. Cerebellar exam normal. Normal gait. Psych: Awake, alert, with orientation to person, place and time. Behavior, mood, and affect are within normal limits. 16:57 ECG was reviewed by the Attending Physician. 16:57 Musculoskeletal/extremity: Tenderness to the left hip, left knee, bruising noted to the right elbow. Vital Signs: 15:34 BP 123 / 106; Pulse 71; Resp 18; Temp 97.9; Pulse Ox 100% on R/A; Weight 74.84 kg; ph Height 5 ft. 1 in. ; 16:44 BP 179 / 84; Pulse 75; Resp 18; Pulse Ox 98% on R/A; ph 18:09 BP 175 / 77; Pulse 64; Resp 18; Pulse Ox 97% on R/A; ph 19:08 BP 150 / 56; Pulse 62; Resp 18; Pulse Ox 95% on R/A; ph 19:37 BP 107 / 91; Pulse 81; Resp 18; Pulse Ox 98% ; vc1 15:34 Body Mass Index 31.18 (74.84 kg, 154.94 cm) ph MDM: 15:28 Patient medically screened. rt 20:43 Differential diagnosis: Hip fracture, contusion. Data reviewed: vital signs, nurses rt notes, lab test result(s), EKG, radiologic studies. Consideration of Admission/Observation Escalation of care including admission/observation considered. Pain is improving with treatment in the ED. Patient did complain of chest pain, EKG showed no acute findings, troponin was negative, CT scan of the chest and CT scan of the pelvis with showed no acute findings. The pain in the chest does seem to be mostly reproducible on palpation. I discussed with the patient admission versus discharge, offered admission. Patient states that he strongly wishes to be discharged. She understands she states that she feels safe getting around at home. She will return if she changes her mind or develops any worsening symptoms.. I considered the following discharge prescriptions or medication management in the emergency department Medications were administered in the Emergency Department. See MAR. Independent interpretation of the following test(s) in the Emergency Department X-Ray: My interpretation is No hip fracture seen on interpretation of x-ray images. Care significantly affected by the following chronic conditions: Diabetes, Hypertension. Counseling: I had a detailed discussion with the patient and/or guardian regarding the historical points, exam findings, and any diagnostic results supporting the discharge/admit diagnosis, lab results, radiology results, the need for outpatient follow up, to return to the emergency department if symptoms worsen or persist or if there are any questions or concerns that arise at home. Response to treatment: the patient's symptoms have markedly improved after treatment. 05/19 16:17 Order name: Basic Metabolic Panel; Complete Time: 17:42 rt 05/19 16:17 Order name: CBC with Diff; Complete Time: 17:29 rt 05/19 16:17 Order name: LFT's; Complete Time: 17:42 rt 05/19 16:17 Order name: Magnesium; Complete Time: 17:42 rt 05/19 16:17 Order name: Troponin HS; Complete Time: 17:42 rt 05/19 15:34 Order name: Hip Left 2 View XRAY; Complete Time: 16:56 rt 05/19 15:34 Order name: Forearm Right XRAY; Complete Time: 16:56 rt 05/19 16:17 Order name: XRAY Chest (1 view); Complete Time: 17:29 rt 05/19 16:25 Order name: Knee Left 2 View; Complete Time: 16:56 EDMS 05/19 18:00 Order name: CT Chest Wo Con; Complete Time: 18:51 rt 05/19 18:00 Order name: CT Pelvis wo Cont; Complete Time: 18:51 rt 05/19 16:17 Order name: EKG; Complete Time: 16:18 rt 05/19 16:17 Order name: Cardiac monitoring; Complete Time: 16:43 rt 05/19 16:17 Order name: EKG - Nurse/Tech; Complete Time: 16:43 rt 05/19 16:17 Order name: IV Saline Lock; Complete Time: 16:43 rt 05/19 16:17 Order name: Labs collected and sent; Complete Time: 16:43 rt 05/19 16:17 Order name: O2 Per Protocol; Complete Time: :43 rt 05/19 16:17 Order name: O2 Sat Monitoring; Complete Time: 16:43 rt EC:57 Rate is 69 beats/min. Rhythm is regular, Normal Sinus Rhythm with Left bundle branch rt block. Left axis deviation noted. PA interval is normal. QRS interval is normal. QT interval is normal. No Q waves. Administered Medications: 15:50 Drug: morphine IVP or IV 4 mg IVP once over 4 mins Route: IVP; Infused Over: 4 mins; ph Site: left wrist; 19:42 Follow up: Response: No adverse reaction; Marked relief of symptoms vc1 15:50 Drug: Ondansetron IVP 4 mg IVP once; over 2 minutes Route: IVP; Site: left wrist; ph 19:42 Follow up: Response: No adverse reaction; Marked relief of symptoms vc1 20:07 Drug: morphine IVP or IV 2 mg IVP once over 4 mins Route: IVP; Infused Over: 4 mins; vc1 Site: left forearm; 20:30 Follow up: Response: No adverse reaction; Marked relief of symptoms; Pain is decreased vc1 20:07 Drug: Alum-Mag Hydroxide-Simeth PO Suspension (200 mg-200 mg-20 mg/5 mL) 30 ml PO once vc1 Route: PO; 20:29 Follow up: Response: Medication administered at discharge. vc1 Disposition Summary: 05/20/23 19:35 Discharge Ordered Notes: Location: Home rt Problem: new rt Symptoms: have improved rt Condition: Stable rt Diagnosis - Mechanical fall rt - Left hip pain rt - Chest wall pain rt Followup: rt - With: Private Physician - When: 2 - 3 days - Reason: Discharge Instructions: - Discharge Summary Sheet rt - Fall Prevention in the Home, Adult rt - Hip Pain rt Forms: - Medication Reconciliation Form rt - Thank You Letter rt - Antibiotic Education rt - Prescription Opioid Use rt - Patient Portal Instructions rt - Leadership Thank You Letter rt Prescriptions: - acetaminophen-codeine 300-30 mg Oral tablet - take 1 tablet ORAL route every 6 hours; 12 tablet; Refills: 0, Product rt Selection Permitted Signatures: Dis[facility] Elizabeth Gale RN RN ph Clotilde Means RN RN vc1 Efrain Smith MD MD rt Corrections: (The following items were deleted from the chart) 16:25 15:35 Knee Left 3 View+RAD.RAD.BRZ ordered. EDMS EDMS
[2023-05-20 20:55] VITALS: BP 107/91; TEMP 97.9; O2SAT 98
--- NOTE | 2023-05-21 17:23 | EKG ---
Test Date: 2023-05-20 Test Time: 15:22:43 Helicopter Specialist: PH MEASUREMENT RESULTS: Intervals: Rate: 69 CO: 172 QRSD: 138 QT: 462 QTc: 495 [place]: P: 67 CO: 172 QRS: -8 T: 138 INTERPRETIVE STATEMENTS: Normal sinus rhythm Left bundle branch block Abnormal ECG Compared to ECG 03/22/2023 23:06:32 No significant changes Electronically Signed On 05-21-23 17:20:28 CDT by Adán Bennett
== END ==
LOC: ER 14:56
DX: M25.552 Pain in left hip (principal); R07.89 Other chest pain; W18.30XA Fall on same level, unspecified, initial encounter; E11.9 Type 2 diabetes mellitus without complications; I10 Essential (primary) hypertension
CPT/HCPCS: 93005; 85025; 80048; 36415; 83735; 80076; 84484; 71250; 72192; 71045; 73502; 73090; 73560; 99285; J2270; J2405

== ENCOUNTER 2023-06-29 02:16 | Inpatient (IN) | payer OTHER ==
[2023-06-29] MEDS ORDERED: MORPHINE 4 MG/ML SYR ONE (02:42)
[2023-06-29] MEDS ORDERED: ONDANSETRON 4 MG/2 ML VIAL ONE (02:42)
[2023-06-29] MEDS ORDERED: NA CHLORIDE 0.9% 1,000 ML ONE (02:42)
[2023-06-29 03:32] LABS: Specific Gravity 1.008 (1.005-1.030); Sqamous Epithelial <5 /HPF (None Seen); Urine Bacteria 20-50 /HPF (<20); Urine Bilirubin NEGATIVE (Negative); Urine Blood Trace (Negative); Urine Clarity Extremely Turbid (Clear); Urine Color Colorless (Yellow); Urine Culture Reflex Order REFLEXED; Urine Glucose 2+ (Negative); Urine Ketones NEGATIVE (Negative); Urine Microscopic Reflex YN ORDER UMIC; Urine Nitrite NEGATIVE (Negative); Urine Protein NEGATIVE (Negative); Urine RBC 21-50 /HPF (None Seen); Urine Urobilinogen Normal (Normal); Urine WBC >50 /HPF (<5); Urine pH 6.5 (5.0-7.0)
[2023-06-29 03:43] LABS: Absolute Eosinophils 0.1 K/uL (0-0.5); Absolute Lymphocytes (CBC) 1.9 K/uL (0.7-4.9); Absolute Monocytes 0.7 K/uL (0.1-1.3); Absolute Neutrophil 3.6 K/uL (1.8-8.0); Basophils % 0.4 % (0-1.3); Hematocrit 40.6 % (36.0-45.0); Hemoglobin 13.7 g/dL (12.0-15.0); Lymphocytes % 29.8 % (15.3-44.8); MCH 29.2 pg (27.0-35.0); MCHC 33.9 g/dL (32.0-36.0); MCV 86.3 fL (80-100); MPV 8.1 fL (7.6-11.3); Monocytes % 10.9 % (3.3-12.3); Neutrophils % 56.9 % (41.7-73.7); Platelets 211 thou/uL (152-406); Red Cell Distribution Width 13.8 % (12.1-15.2)
[2023-06-29 03:56] LABS: Albumin 3.1 g/dL (3.4-5.0); Albumin/Globulin Ratio 0.7 (1.1-1.8); Anion Gap 8.7 mEq/L (5.0-15.0); Bilirubin Total 0.4 mg/dL (0.2-1.0); Globulin 4.2 g/dL (2.3-3.5); Potassium 3.7 mEq/L (3.5-5.1); Protein, Total 7.3 g/dL (6.4-8.2); Troponin High Sensitivity 11.3 pg/mL (<58.9)
[2023-06-29] MEDS ORDERED: CEFTRIAXONE 1000 MG/VIAL ONE (04:19)
[2023-06-29] MEDS ORDERED: NA CHLORIDE 0.9% 50 ML ONE (04:19)
[2023-06-29] MEDS ORDERED: KETOROLAC 30 MG/ML INJ ONE (04:43)
[2023-06-29] MEDS ORDERED: FAMOTIDINE 20 MG/2 ML VIAL IV ONE (04:44)
--- NOTE | 2023-06-29 06:34 | EDPHYS ---
Physician Documentation [facility] Name: Isadora Bettencourt Age: 77 yrs Sex: Female : 1945 Arrival Date: 06/29/2023 Time: 02:16 Bed 8 Private MD: ED Physician Uriel Hart HPI: 06/28 04:10 This 77 yrs old Female presents to ER via EMS with complaints of Abdominal Pain. ci 04:10 Patient is a 77-year-old female with PMH DM2, hypertension, pancreatitis who presents ci to the ED with epigastric pain that began yesterday. Pain is sharp, constant, nonradiating, feels like her typical pancreatitis pain. She has had nausea but no vomiting. Endorses dysuria, increased urinary frequency. No diarrhea/constipation.. Historical: - Allergies: 02:21 No Known Allergies; km8 - PMHx: 02:21 Anxiety; diabetes mellitus; Hypertension; Kidney stones; Pancreatitis; km8 - PSHx: 02:21 Appendectomy; back; Bladder; Cholecystectomy; knee; Total abdominal hysterectomy; wrist;km8 - Immunization history:: Adult Immunizations up to date. - Infectious Disease History:: Denies. - Social history:: Smoking status: Patient/guardian denies using tobacco, the patient reports quitting approximately 30 years ago. ROS: 04:10 Constitutional: Negative for fever, chills, and weight loss, ci 04:10 Cardiovascular: Negative for chest pain, edema, orthopnea, 04:10 Respiratory: Negative for orthopnea, shortness of breath, wheezing, 04:10 Abdomen/GI: Positive for abdominal pain, nausea, Negative for vomiting, diarrhea, constipation, Exam: 04:20 Constitutional: This is a well developed, well nourished patient who is awake, alert, ci and in no acute distress. Head/Face: Normocephalic, atraumatic. Eyes: Pupils equal round and reactive to light, extra-ocular motions intact. Lids and lashes normal. Conjunctiva and sclera are non-icteric and not injected. Cornea within normal limits. Periorbital areas with no swelling, redness, or edema. ENT: Nares patent. No nasal discharge, no septal abnormalities noted. Tympanic membranes are normal and external auditory canals are clear. Oropharynx with no redness, swelling, or masses, exudates, or evidence of obstruction, uvula midline. Mucous membranes moist. Neck: Trachea midline, no thyromegaly or masses palpated, and no cervical lymphadenopathy. Supple, full range of motion without nuchal rigidity, or vertebral point tenderness. No Meningismus. Chest/axilla: Normal chest wall appearance and motion. Nontender with no deformity. No lesions are appreciated. Cardiovascular: Regular rate and rhythm with a normal S1 and S2. No gallops, murmurs, or rubs. Normal PMI, no JVD. No pulse deficits. Respiratory: Lungs have equal breath sounds bilaterally, clear to auscultation and percussion. No rales, rhonchi or wheezes noted. No increased work of breathing, no retractions or nasal flaring. 04:20 Back: No spinal tenderness. No costovertebral tenderness. Full range of motion. Skin: Warm, dry with normal turgor. Normal color with no rashes, no lesions, and no evidence of cellulitis. MS/ Extremity: Pulses equal, no cyanosis. Neurovascular intact. Full, normal range of motion. Neuro: Awake and alert, GCS 15, oriented to person, place, time, and situation. Cranial nerves II-XII grossly intact. Motor strength 5/5 in all extremities. Sensory grossly intact. Cerebellar exam normal. Normal gait. Psych: Awake, alert, with orientation to person, place and time. Behavior, mood, and affect are within normal limits. 04:20 Abdomen/GI: Palpation: soft, moderate abdominal tenderness, in the epigastric area, rebound tenderness, is not appreciated, voluntary guarding, involuntary guarding, no appreciated organomegaly, 04:26 ECG was reviewed by the Attending Physician. EKG shows normal sinus rhythm, HR 71, ci LBBB, QTc 515, unchanged from 05/20/2023 Vital Signs: 02:19 BP 155 / 116; Pulse 81; Resp 18; Temp 98.2(O); Pulse Ox 98% on R/A; Weight 74.84 kg km8 (R); Height 5 ft. 1 in. (R); Pain 10/; 02:38 BP 184 / 89; Pulse 74; Resp 17; Pulse Ox 90% on R/A; Pain 9/10; bm8 04:24 BP 135 / 99; Pulse 73; Resp 18; Temp 98.2; Pulse Ox 96% on 2 lpm NC; Pain 6/10; bm8 06:08 BP 151 / 101; Pulse 63; Resp 16; Temp 98.2; Pulse Ox 97% on 2 lpm NC; Pain 4/10; bm8 06:53 BP 193 / 84; Pulse 65; Resp 16; Temp 98.2; Pulse Ox 96% on R/A; Pain 4/10; bm8 02:19 Body Mass Index 31.18 (74.84 kg, 154.94 cm) km8 02:19 Pain Scale: Adult km8 02:38 Pain Scale: Adult bm8 04:24 Pain Scale: Adult bm8 06:08 Pain Scale: Adult bm8 06:53 Pain Scale: Adult bm8 Darcie Coma Score: 02:22 Eye Response: spontaneous(4). Motor Response: obeys commands(6). Verbal Response: km8 oriented(5). Total: 15. 04:24 Eye Response: spontaneous(4). Motor Response: obeys commands(6). Verbal Response: bm8 oriented(5). Total: 15. MDM: 02:24 Patient medically screened. ci 04:20 Differential Diagnosis Pancreatitis, gastritis, GERD, SBO, colitis, ACS. Data reviewed: ci vital signs, nurses notes. 04:28 Awaiting: CT scan results, Awaiting radiology read. ci 06:30 ED course: CT shows indeterminate air within the urinary bladder, possible ci emphysematous cystitis, will require IV antibiotics. Given age and comorbidities, high risk for decompensation. Will admit for further management. I discussed case with hospitalist who accepted patient for admission.. 06/28 02:33 Order name: CBC with Diff; Complete Time: 03:56 ci 06/28 02:33 Order name: CMP; Complete Time: 03:57 ci 06/28 03:57 Interpretation: Abnormal: GLUC 226. ci 06/28 02:33 Order name: Lipase; Complete Time: 03:57 ci 06/28 02:33 Order name: Urinalysis w/ reflexes; Complete Time: 03:56 ci 06/28 03:56 Interpretation: Abnormal: URBC 21-50; UESTR 500. ci 06/28 02:33 Order name: Troponin High Sensitivity; Complete Time: 03:57 ci 06/28 03:37 Order name: Urine Culture EDHI 06/28 06:33 Order name: Blood Culture Adult (2) ci 06/28 06:33 Order name: Lactate w/ 2H reflex if indic. ci 06/28 06:58 Order name: CBC with Automated Diff EDMS 06/28 06:58 Order name: CBC with Automated Diff EDMS 06/28 06:58 Order name: CBC with Automated Diff EDMS 06/28 06:58 Order name: CBC with Automated Diff EDMS 06/28 06:58 Order name: Comprehensive Metabolic Panel EDMS 06/28 06:58 Order name: Comprehensive Metabolic Panel EDMS 06/28 06:58 Order name: Comprehensive Metabolic Panel EDMS 06/28 06:58 Order name: Comprehensive Metabolic Panel EDMS 06/28 06:58 Order name: Lipid Profile EDMS 06/28 06:58 Order name: Lipid Profile EDMS 06/28 06:58 Order name: Magnesium EDMS 06/28 06:58 Order name: Magnesium EDMS 06/28 06:58 Order name: Phosphorus EDMS 06/28 06:58 Order name: Phosphorus EDMS 06/28 02:33 Order name: CT Abd/Pelvis - IV Contrast Only ci 06/28 02:33 Order name: EKG; Complete Time: 02:33 ci 06/28 06:58 Order name: CONS Physician Consult EDMS 06/28 02:33 Order name: IV Saline Lock; Complete Time: 02:39 ci 06/28 02:33 Order name: Labs collected and sent; Complete Time: 02:39 ci 06/28 02:33 Order name: Cardiac monitoring; Complete Time: 02:40 ci 06/28 02:33 Order name: EKG - Nurse/Tech; Complete Time: 02:39 ci 06/28 02:33 Order name: O2 Per Protocol; Complete Time: 02:39 ci 06/28 02:33 Order name: O2 Sat Monitoring; Complete Time: 02:39 ci Administered Medications: 02:54 Drug: NS 0.9% IV 1000 ml IV at 1 bolus Per protocol; 1000 mL bolus Route: IV; Rate: 1 km8 bolus; Site: left antecubital; 04:49 Follow up: Response: No adverse reaction; IV Status: Completed infusion; IV Intake: bm8 1000ml 02:54 Drug: Ondansetron IVP 4 mg IVP once; over 2 minutes Route: IVP; Site: left antecubital; km8 03:25 Follow up: Response: No adverse reaction bm8 04:49 Follow up: Response: No adverse reaction bm8 02:54 Drug: morphine IVP or IV 4 mg IVP once over 4 mins Route: IVP; Infused Over: 4 mins; km8 Site: left antecubital; 03:26 Follow up: Response: No adverse reaction bm8 04:49 Follow up: Response: No adverse reaction bm8 04:35 Drug: Rocephin IV 1 grams IV at calculated rate once; Given slow IV push per pharmacy bm8 instructions Route: IV; Rate: calculated rate; Site: left antecubital; 04:48 Follow up: Response: No adverse reaction; IV Status: Completed infusion; IV Intake: [id number] 04:48 Drug: Famotidine IVP 20 mg IVP once; dilute with 10 mL 0.9% NaCl; give over 2 minutes bm8 Route: IVP; Site: left antecubital; 06:01 Follow up: Response: No adverse reaction bm8 04:48 Drug: Ketorolac IVP 15 mg IVP once Route: IVP; Site: left antecubital; bm8 06:01 Follow up: Response: No adverse reaction bm8 06:07 CANCELLED (cancel per mdd): [id number] mg PO once bm8 06:07 CANCELLED (canceled per mdd): metoclopramide5 mg IVP once; over 1 to 2 minutes bm8 06:59 Drug: GI Cocktail with - (Maalox PO 30 ml, Lidocaine Mucous Membrane 2 % 20 bm8 ml, Phenobarbital-Belladonna PO 10 ml) PO once Route: PO; Disposition Summary: 06/29/23 06:33 Hospitalization Ordered Notes: Hospitalization Status: Observation ci Provider: Sher Luciano ci Location: Telemetry/MedSurg (observation) ci Condition: Stable ci Problem: an acute exacerbation ci Symptoms: are unchanged ci Bed/Room Type: Standard ci Room Assignment: 429(06/29/23 07:04) hb Diagnosis - Abdominal pain, Generalized ci - UTI/ Urinary tract infection, site not specified ci Forms: - Medication Reconciliation Form ci - SBAR form ci - Leadership Thank You Letter ci Signatures: Dispatcher [employer] Radha Roman RN RN Uriel Flanagan, Venessa, RN RN km8 Hugh Stewart, RN RN bm8 Corrections: (The following items were deleted from the chart) 02:33 02:33 CBC+H.LAB.BRZ ordered. EDMS EDMS 02:33 02:33 COMPREHENSIVE METABOLIC PANEL+C.LAB.BRZ ordered. EDMS EDMS 02:33 02:33 LIPASE+C.LAB.BRZ ordered. EDMS EDMS 02:33 02:33 Urinalysis+U.LAB.BRZ ordered. EDMS EDMS 02:33 02:33 Troponin High Sensitivity+C.LAB.BRZ ordered. EDMS EDMS 04:41 04:26 ECG was reviewed by the Attending Physician. EKG shows normal sinus rhythm, HR ci 71, LBBB, QTc 515 ci 06:07 05:49 Dicyclomine PO 20 mg PO once ordered. ci bm8 06:07 05:49 metoCLOPramide IVP 5 mg IVP once; over 1 to 2 minutes ordered. ci bm8 07:04 06:33 ci hb
--- NOTE | 2023-06-29 06:34 | ER ---
Nurse's Notes [facility] Name: Isadora Bettencourt Age: 77 yrs Sex: Female : 1945 Arrival Date: 06/29/2023 Time: 02:16 Bed 8 Private MD: Diagnosis: Abdominal pain, Generalized;UTI/ Urinary tract infection, site not specified Presentation: 06/28 02:19 Chief complaint: EMS states: toned out for ABD pain; pt has hx of pancreatitis. km8 Coronavirus screen: Client denies travel out of the [place] in the last 14 days. Ebola Screen: No symptoms or risks identified at this time. Initial Sepsis Screen: Does the patient meet any 2 criteria? No. Patient's initial sepsis screen is negative. Does the patient have a suspected source of infection? No. Patient's initial sepsis screen is negative. Risk Assessment: Do you want to hurt yourself or someone else? Patient reports no desire to harm self or others. Onset of symptoms was June 28, 2023. 02:19 Method Of Arrival: EMS: [facility] km8 02:19 Acuity: FRANDY 3 km8 Triage Assessment: 02:21 General: Appears in no apparent distress. uncomfortable, Behavior is calm, cooperative, km8 appropriate for age. Pain: Complains of pain in abdomen Pain currently is 10 out of 10 on a pain scale. EENT: No signs and/or symptoms were reported regarding the EENT system. Neuro: Level of Consciousness is awake, alert, obeys commands, Oriented to person, place, time, situation. Cardiovascular: Denies chest pain, shortness of breath, Patient's skin is warm and dry. Respiratory: Airway is patent Respiratory effort is even, unlabored, Respiratory pattern is regular, symmetrical. GI: Abdomen is non-distended, Abdomen is tender to palpation Reports lower abdominal pain, upper abdominal pain, nausea. : No signs and/or symptoms were reported regarding the genitourinary system. Derm: No signs and/or symptoms reported regarding the dermatologic system. Skin is intact, is healthy with good turgor, Skin is dry, Skin is pink, warm \T\ dry. normal, Skin temperature is warm. Musculoskeletal: No signs and/or symptoms reported regarding the musculoskeletal system. Range of motion: intact in all extremities. Historical: - Allergies: 02:21 No Known Allergies; km8 - PMHx: 02:21 Anxiety; diabetes mellitus; Hypertension; Kidney stones; Pancreatitis; km8 - PSHx: 02:21 Appendectomy; back; Bladder; Cholecystectomy; knee; Total abdominal hysterectomy; wrist;km8 - Immunization history:: Adult Immunizations up to date. - Infectious Disease History:: Denies. - Social history:: Smoking status: Patient/guardian denies using tobacco, the patient reports quitting approximately 30 years ago. Screenin:22 [facility] ED Fall Risk Assessment (Adult) History of falling in the last 3 months, km8 including since admission Yes- fall prone (multiple falls) (3 pts) Confusion or Disorientation No (0 pts) Intoxicated or Sedated No (0 pts) Impaired Gait Yes (1 pt) Mobility Assist Device Used Yes (1 pt) Altered Elimination No (0 pt) Score/Fall Risk Level 3 or more points = High Risk Oriented to surroundings, Maintained a safe environment, Educated pt \T\ family on fall prevention, incl call for assistance when getting out of bed, Assessed \T\ reinforced patient's understanding of fall precautions, Provided non-skid footwear, Hourly rounding (assess needs \T\ fall precautionary measures) done, Used ambulatory aids as needed (educated on \T\ assisted with), Used gait belt as appropriate Implemented a Fall Risk Plan of Care, Remained w/in arm's length of patient and in sight while toileting, Offered frequent toileting (1:1 observation), Remained with patient while ambulating. Abuse screen: Denies threats or abuse. Denies injuries from another. Nutritional screening: No deficits noted. Tuberculosis screening: No symptoms or risk factors identified. Assessment: :22 Reassessment: see triage assessment. km8 04:24 Reassessment: pt c/o nausea and pain. provider informed and awaiting further orders. bm8 04:36 General: Appears in no apparent distress. uncomfortable, Behavior is calm, cooperative, bm8 appropriate for age. Pain: Complains of pain in right upper quadrant and left upper quadrant Pain does not radiate. Pain currently is 6 out of 10 on a pain scale. Quality of pain is described as sharp. Neuro: No deficits noted. Level of Consciousness is awake, alert, obeys commands, Oriented to person, place, time, situation, Appropriate for age. Cardiovascular: Denies chest pain, Capillary refill < 3 seconds Patient's skin is warm and dry. Respiratory: Airway is patent Respiratory effort is even, unlabored, Respiratory pattern is regular, symmetrical, pt on 2L nc. GI: Abdomen is round non-distended, Bowel sounds present X 4 quads. Abd is soft Abdomen is tender to palpation in right upper quadrant and left upper quadrant Reports upper abdominal pain, nausea. : Urine is cloudy. 06:08 Reassessment: Patient appears in no apparent distress at this time. Patient and/or bm8 family updated on plan of care and expected duration. Pain level reassessed. Patient is alert, oriented x 3, equal unlabored respirations, skin warm/dry/pink. Patient states feeling better. Patient states symptoms have improved. Pain: Complains of pain in left upper quadrant Pain currently is 4 out of 10 on a pain scale. 06:53 Reassessment: Patient appears in no apparent distress at this time. Patient and/or bm8 family updated on plan of care and expected duration. Pain level reassessed. Patient is alert, oriented x 3, equal unlabored respirations, skin warm/dry/pink. c/o burning pain in epi gastric area. MD notified and awaiting further orders. GI: Reports upper abdominal pain. 06:53 Reassessment: removed pt off of nasal canula. bm8 Vital Signs: 02:19 BP 155 / 116; Pulse 81; Resp 18; Temp 98.2(O); Pulse Ox 98% on R/A; Weight 74.84 kg km8 (R); Height 5 ft. 1 in. (R); Pain 1010; 02:38 BP 184 / 89; Pulse 74; Resp 17; Pulse Ox 90% on R/A; Pain 9/10; bm8 04:24 BP 135 / 99; Pulse 73; Resp 18; Temp 98.2; Pulse Ox 96% on 2 lpm NC; Pain 6/10; bm8 06:08 BP 151 / 101; Pulse 63; Resp 16; Temp 98.2; Pulse Ox 97% on 2 lpm NC; Pain 4/10; bm8 06:53 BP 193 / 84; Pulse 65; Resp 16; Temp 98.2; Pulse Ox 96% on R/A; Pain 4/; bm8 02:19 Body Mass Index 31.18 (74.84 kg, 154.94 cm) km8 02:19 Pain Scale: Adult km8 02:38 Pain Scale: Adult bm8 04:24 Pain Scale: Adult bm8 06:08 Pain Scale: Adult bm8 06:53 Pain Scale: Adult bm8 Darcie Coma Score: 02:22 Eye Response: spontaneous(4). Motor Response: obeys commands(6). Verbal Response: km8 oriented(5). Total: 15. 04:24 Eye Response: spontaneous(4). Motor Response: obeys commands(6). Verbal Response: bm8 oriented(5). Total: 15. ED Course: 02:18 Patient arrived in ED. 8 02:19 Venessa Mcgee, RN is Primary Nurse. km8 02:21 Triage completed. km8 02:21 Arm band placed on right wrist. 8 02:22 Patient has correct armband on for positive identification. Placed in gown. Bed in low km8 position. Call light in reach. Side rails up X2. Pulse ox on. NIBP on. Door closed. Warm blanket given. 02:24 Uriel Hart is Attending Physician. ci 02:38 Head of bed elevated. Elevated leg s. bm8 02:38 Initial lab(s) drawn, by me, sent to lab. Urine collected: clean catch specimen, bm8 cloudy, EKG done, by ED staff, reviewed by Uriel Hart. Accessed peripheral vein via ultrasound, utilizing dynamic ultrasound technique Blood collected. using 20G Nexia IV catheter ,sterile technique, Clean \T\ dry. Dressing intact. Good blood return. Flushes easily. Missed attempt(s): 20 gauge in right forearm. Bleeding controlled, band aid applied, catheter tip intact. 02:39 CBC with Diff Sent. km8 02:39 CMP Sent. km8 02:39 Lipase Sent. km8 02:55 pt placed on purewick. km8 03:32 Oxygen administration via nasal cannula \T\ 2L/min. bm8 03:33 Primary Nurse role handed off by Venessa Mcgee, RN km8 04:05 Hugh Stewart, RN is Primary Nurse. bm8 04:24 Cleaned of incontinence. Linen changed. New pure wic placed as old hand become bm8 saturated during time at CT. 04:27 CT Abd/Pelvis - IV Contrast Only In Process Unspecified. EDMS 06:08 Provided Education on: need for admission. bm8 06:08 No provider procedures requiring assistance completed. Patient admitted, IV remains in bm8 place. 06:30 First set of blood cultures drawn by me. bm8 06:31 Sher Luciano MD is Hospitalizing Provider. ci 06:45 Second set of blood cultures drawn lactate drawn. bm8 07:04 Report given to neville powell. bm8 07:05 Primary Nurse role handed off by Hugh Stewart RN bm8 07:30 No apparent distress. Resting quietly. Awaiting bed assignment. socks given to patient. ld2 07:30 Patient has correct armband on for positive identification. Bed in low position. Call ld2 light in reach. Side rails up X 1. Door closed. Noise minimized. Lights dimmed. Warm blanket given. Verbal reassurance given. Head of bed lowered. 08:47 Elizaebth Desai RN is Primary Nurse. ph Administered Medications: 02:54 Drug: NS 0.9% IV 1000 ml IV at 1 bolus Per protocol; 1000 mL bolus Route: IV; Rate: 1 km8 bolus; Site: left antecubital; 04:49 Follow up: Response: No adverse reaction; IV Status: Completed infusion; IV Intake: bm8 1000ml 02:54 Drug: Ondansetron IVP 4 mg IVP once; over 2 minutes Route: IVP; Site: left antecubital; km8 03:25 Follow up: Response: No adverse reaction bm8 04:49 Follow up: Response: No adverse reaction bm8 02:54 Drug: morphine IVP or IV 4 mg IVP once over 4 mins Route: IVP; Infused Over: 4 mins; km8 Site: left antecubital; 03:26 Follow up: Response: No adverse reaction bm8 04:49 Follow up: Response: No adverse reaction bm8 04:35 Drug: Rocephin IV 1 grams IV at calculated rate once; Given slow IV push per pharmacy bm8 instructions Route: IV; Rate: calculated rate; Site: left antecubital; 04:48 Follow up: Response: No adverse reaction; IV Status: Completed infusion; IV Intake: [id number] 04:48 Drug: Famotidine IVP 20 mg IVP once; dilute with 10 mL 0.9% NaCl; give over 2 minutes bm8 Route: IVP; Site: left antecubital; 06:01 Follow up: Response: No adverse reaction bm8 04:48 Drug: Ketorolac IVP 15 mg IVP once Route: IVP; Site: left antecubital; bm8 06:01 Follow up: Response: No adverse reaction bm8 06:07 CANCELLED (cancel per mdd): [id number] mg PO once bm8 06:07 CANCELLED (canceled per mdd): metoclopramide5 mg IVP once; over 1 to 2 minutes bm8 06:59 Drug: GI Cocktail with - (Maalox PO 30 ml, Lidocaine Mucous Membrane 2 % 20 bm8 ml, Phenobarbital-Belladonna PO 10 ml) PO once Route: PO; Medication: 02:22 VIS not applicable for this client. km8 Intake: 04:48 IV: 50ml; Total: 50ml. bm8 04:49 IV: 1000ml; Total: 1050ml. bm8 Outcome: 06:33 Decision to Hospitalize by Provider. ci 08:47 Patient left the ED. ph Signatures: Dispatcher [employer] EDMS Elizabeth Desai RN RN Uriel Hart Katie RN RN km8 Hugh Stewart RN RN bm8 Anh Leyva, RN RN ld2 Corrections: (The following items were deleted from the chart) 06:56 06:08 BP 151 / 101; Pulse 63bpm; Resp 1bpm; Pulse Ox 97% 2 lpm Nasal Cannula; Temp bm8 98.2F; Pain 4/10, Adult; bm8
[2023-06-29] MEDS ORDERED: MAGNES/ALUMIN/SIMET 30ML UCUP ONE (06:49)
[2023-06-29] MEDS ORDERED: LIDOCAINE VISCOUS 2% 10ML ORAL SOLN ONE (06:49)
--- NOTE | 2023-06-29 06:49 | P.HP ---
Certification for Inpatient Patient admitted to: Inpatient With expected LOS: >2 Midnights <Ambar Roper - Last Filed: 06/29/23 07:02> Patient History Date of Service: 06/29/23 Reason for admission: Complicated cystitis History of Present Illness: Ms. Bettencourt is a 77-year-old female with past medical history of hypertension, chronic pancreatitis, xaw-fqjeeve-yxgwhfeiy diabetes, gastric ulcers, kidney stones, and frequent urinary tract infections who presents to the ER with a 2- day history of abdominal pain. She reports a subjective fever. Denies nausea, vomiting, or diarrhea. CT evaluation in the emergency department reveals potential emphysematous cystitis. Ms. Bettencourt reports chronic history of back to back antibiotic treatment for urinary tract infections. She has seen Dr. Garcia multiple times for stenting, lithotripsy, bladder stimulator implantation, and cystitis. We will admit her for IV antibiotics: Urine has been sent for culture. - Past Medical/Surgical History Has patient received pneumonia vaccine in the past: No Diabetic: Yes -: kidney stones -: Gastroesophageal reflux disease w Hiatal hernia -: Esophageal spasm -: Attention deficit disorder -: Hypertension -: Depression with anxiety -: Hyperlipidemia -: Chronic pain -: Fatty liver, nonalcoholic -: Urinary incontinence/Nephrolithiasis -: Recurrent UTI -: Hysterectomy -: Cholecystectomy -: Appendectomy -: back surgery -: knee surgery -: foot surgery -: EGD/ERCP -: Cardiac catheterization, no stent Psychosocial/ Personal History: Patient lives at home alone - Family History Father -: Diabetes, Cancer Notes: Type 2 Mother -: Hypertension, Diabetes, Other (see notes) Notes: Hypoglycemia Sister Notes: epilepsy - Social History Smoking Status: Former smoker Alcohol use: No CD- Drugs: No Caffeine use: No Place of Residence: Home <Ambar Roper - Last Filed: 06/29/23 07:02> Date of Service: 06/29/23 <Sher Luciano - Last Filed: 06/29/23 11:12> Allergies No Known Allergies Allergy (Verified 03/02/23 13:06) Home Medications: Metformin HCl 1,000 mg PO BID 02/24/23 Nitrofurantoin Macrocrystal [Macrodantin] 100 mg PO BID 02/24/23 Hydrocodone 7.5/APAP 325 [[place] 7.5/325 mg] 1 tab PO Q6H PRN #12 tab 03/02/23 Solifenacin Succinate [Vesicare] 10 mg PO DAILY #90 tab 03/02/23 Review of Systems 10-point ROS is otherwise unremarkable General: Fever, Chills, Weakness, Malaise, As per HPI Gastrointestinal: Abdominal Pain, As per HPI Genitourinary: As per HPI <Ambar Roper - Last Filed: 06/29/23 07:02> Physical Examination - Physical Exam General: Alert, In no apparent distress, Oriented x3 HEENT: Atraumatic, Normocephalic Neck: JVD not distended Respiratory: Normal air movement Cardiovascular: Normal pulses, Regular rate/rhythm Capillary refill: <2 Seconds Gastrointestinal: No rebound, Tenderness (mild generalized) Musculoskeletal: No swelling, No contractures Integumentary: No rashes Neurological: Normal speech, Normal tone Lymphatics: No axilla or inguinal lymphadenopathy Urinary: Other (Pure wick) External genitalia: Deferred Rectal: Deferred - Studies Laboratory Data (last 24 hrs) 06/29/23 06/29/23 03:04 03:04 WBC 6.40 Hgb 13.7 Hct 40.6 Plt Count 211 Sodium 138 Potassium 3.7 BUN 17 Creatinine 0.92 Glucose 226 H Total Bilirubin 0.4 AST 5 L ALT 18 Alkaline Phosphatase 102 Lipase 21 <Ambar Roper - Last Filed: 06/29/23 07:02> - Studies Laboratory Data (last 24 hrs) 06/29/23 06/29/23 03:04 03:04 WBC 6.40 Hgb 13.7 Hct 40.6 Plt Count 211 Sodium 138 Potassium 3.7 BUN 17 Creatinine 0.92 Glucose 226 H Total Bilirubin 0.4 AST 5 L ALT 18 Alkaline Phosphatase 102 Lipase 21 <Sher Luciano - Last Filed: 06/29/23 11:12> Assessment and Plan - Plan Emphysematous cystitis Merrem PICC line request Consult Dr. Garcia Urine culture & sensitivity pending Hypertension Home medications Ukc-zyltsnx-pkvjfdwoz diabetes Fingerstick blood sugar before meals and at bedtime with mild sliding scale insulin per Chronic pancreatitis Gentle hydration DVT/GI prophylaxis Lovenox/Protonix - Advance Directives Does patient have a Living Will: No Does patient have a Durable POA for Healthcare: No <Ambar Roper Sesar - Last Filed: 06/29/23 07:02> - Plan Pt seen and examined. I agree with the note by the JIG BORING MACHINE OPERATOR FOR METAL. Pt is a 77yo female with past medical history of hypertension, chronic pancreatitis, lqq-wcslhob-ddoyjsuji diabetes, gastric ulcers, kidney stones, and frequent urinary tract infections who presents with abdominal pain and subjective fever for 2 days. On admission, lab studies show wbc 6.4, Hgb 13.7, K 3.7, Cr 0.92. CT abd shows potential emphysematous cystitis. Of note, pt has been on abx for UTI. Dr. Garcia has done multiple stenting, lithotripsy, bladder stimulator implantation, and treated cystitis. At bedside, pt is in NAD. A/P: Emphysematous cystitis: per CT abd. Will continue iv merrem and follow up urine cx. Continue home med for other chronic medical problems. <Sher Luciano - Last Filed: 06/29/23 11:12>
[2023-06-29] MEDS ORDERED: ACETAMINOPHEN 325 MG TABLET PO PRN (06:50)
[2023-06-29] MEDS ORDERED: SODIUM CHLORIDE 0.9% 10ML INJ IV PRN (06:50)
[2023-06-29] MEDS: NA CHLORIDE 0.9% 1,000 ML IV SCH (09:31)
[2023-06-29] MEDS: INSULIN REGULAR (HUMAN) 100 UNIT/ML SQ SCH (09:31)
[2023-06-29] MEDS: ENOXAPARIN 40 MG/0.4 ML SQ SCH (09:32)
[2023-06-29] MEDS: PANTOPRAZOLE 40 MG INJ IVP SCH (09:32)
[2023-06-29] MEDS: Meropenem 1,000 MG in NA CHLORIDE 0.9% 100 ML IV SCH (09:32)
[2023-06-29] MEDS: MORPHINE 2 MG/ML SYR IV PRN (09:33)
[2023-06-29] MEDS: Mupirocin NASAL 2 APPL/1 GM TUBE NAS SCH (09:33)
[2023-06-29] MEDS: PROMETHAZINE INJ 25 MG/ML AMP IV PRN (11:33)
--- NOTE | 2023-06-29 11:42 | RAD REPORT ---
EXAM DESCRIPTION: CT - Pelvis Wo Cont - 06/29/2023 11:00 am CLINICAL HISTORY: suspected enterovesical fistula COMPARISON: Pelvis Wo Cont dated 05/20/2023; Pelvis Wo Cont dated 08/16/2020; Abdomen Pelvis W Contr ast dated 06/29/2023 TECHNIQUE: Thin cut axial CT imaging of the pelvis was performed without IV contrast. Multiplanar re formats were generated and reviewed. All CT scans are performed using dose optimization technique as appropriate and may include automated exposure control or mA/KV adjustment according to patient size. FINDINGS: A Dobson catheter is present within the urinary bladder, with small volume of air layering anti dependently. Bladder is moderately distended. Mild wall thickening along the dome and anterior w all of the bladder with minimal fat stranding. Preserved fat planes between the dome of the bladder a nd small bowel and sigmoid colon more superiorly, as well as preserved posterior rectovesical fat omid ne. No extravasated contrast. No soft tissue tracts or abnormal fat stranding elsewhere to suggest si nus or fistula formation. Contrast opacifies the included lower aspects of the renal pelves and upper ureters. These demonstrat e no abnormality to the extent evaluated. No dilated bowel loops or bowel wall thickening. Distal colonic diverticulosis. Nonspecific mild cent ral mesenteric fat stranding, stable. No free air, free fluid or inflammatory stranding. No hernia, m ass or bulky lymphadenopathy. No suspicious bony findings. Advanced spondylitic changes at the lower lumbar spine, with our center articular as defect at L5 on the right. IMPRESSION: No contrast extravasation from the bladder. No abnormal fistulous or sinus tract to expl ain the intravesical gas. Mild wall thickening and adjacent fat stranding again seen along the dome a nd anterior bladder wall which may relate to cystitis. Other findings as above.
[2023-06-29 12:22] VITALS: BMI 31.1
[2023-06-29] MEDS: lisinopriL 5 MG TAB PO ONE (12:58)
--- NOTE | 2023-06-29 13:38 | RAD REPORT ---
EXAM DESCRIPTION: CT - Abdomen Pelvis W Contrast - 06/29/2023 6:35 am CLINICAL HISTORY: Abd pain, hx of pancreatits COMPARISON: None. TECHNIQUE: CT ABDOMEN PELVIS WITH IV CONTRAST on 06/29/2023 2:33 AM CDT This exam was performed according to our departmental dose-optimization program, which includes autom ated exposure control, adjustment of the mA and/or kV according to patient size and/or use of iterati ve reconstruction technique. FINDINGS: Lower lungs are clear. Abdomen: The liver is normal in appearance. There is no biliary dilatation. The gallbladder is not we ll seen. There is a moderate hiatal hernia associated with perigastric/paraesophageal varices. There is mild pneumobilia. The pancreas and spleen are normal in appearance. The adrenal glands and kidneys are unremarkable. Abdominal aorta is normal in course and caliber without aneurysm. There is no free air. There is no r etroperitoneal adenopathy. Pelvis: There is severe diverticulosis of the distal colon. There is small amount of air in the urina ry bladder. There is no free fluid. Appendix is not seen. Skeleton: There are no acute osseous findings. No suspicious bony lesions. IMPRESSION: No definite acute inflammatory process. Hiatal hernia with paraesophageal varices. Indeterminate air within the urinary bladder. Electronically signed by: Roosevelt Collins MD 06/29/2023 05:49 AM CDT Due to temporary technical issues with the PACS/[employer] reporting system, reports are being signed by the in house radiologists without review as a courtesy to insure prompt reporting. The interpreting radiologist is fully responsible for the content of the report
--- NOTE | 2023-06-29 16:10 | RAD REPORT ---
EXAM DESCRIPTION: RAD - Chest Single View - 06/29/2023 3:46 pm CLINICAL HISTORY: Device placement PICC line placement . IMPRESSION: PICC line with its tip in the mid superior vena cava
[2023-06-30 06:59] LABS: Absolute Eosinophils 0.2 K/uL (0-0.5); Absolute Lymphocytes (CBC) 1.1 K/uL (0.7-4.9); Absolute Monocytes 0.7 K/uL (0.1-1.3); Basophils % 0.5 % (0-1.3); Eosinophils % 2.3 % (0-4.4); Hematocrit 37.8 % (36.0-45.0); Hemoglobin 12.3 g/dL (12.0-15.0); Lymphocytes % 15.5 % (15.3-44.8); MCH 28.7 pg (27.0-35.0); MCHC 32.5 g/dL (32.0-36.0); MCV 88.2 fL (80-100); MPV 8.4 fL (7.6-11.3); Monocytes % 10.4 % (3.3-12.3); Neutrophils % 71.3 % (41.7-73.7); Platelets 170 thou/uL (152-406); RBC Red Blood Cell Count 4.28 M/uL (3.86-4.86); Red Cell Distribution Width 13.8 % (12.1-15.2)
[2023-06-30 07:20] LABS: Albumin 2.7 g/dL (3.4-5.0); Albumin/Globulin Ratio 0.7 (1.1-1.8); Anion Gap 8.8 mEq/L (5.0-15.0); Globulin 3.7 g/dL (2.3-3.5); Magnesium 2.2 mg/dL (1.6-2.4); Phosphorus 2.8 mg/dL (2.5-4.9); Potassium 3.8 mEq/L (3.5-5.1); Protein, Total 6.4 g/dL (6.4-8.2)
[2023-06-30] MEDS: lisinopriL 5 MG TAB PO SCH (08:44)
[2023-06-30 09:36] LABS: ALT/SGPT 298 U/L (13-56); AST/SGOT 338 U/L (15-37); Albumin 2.7 g/dL (3.4-5.0); Albumin/Globulin Ratio 0.7 (1.1-1.8); Alkaline Phosphatase 156 U/L (45-117); Bilirubin Direct 0.3 mg/dL (0-0.2); Bilirubin Indirect, Calculated 0.8 mg/dL (0.2-0.8); Bilirubin Total 1.1 mg/dL (0.2-1.0); Globulin 3.7 g/dL (2.3-3.5); Protein, Total 6.4 g/dL (6.4-8.2)
--- NOTE | 2023-06-30 12:16 | P.PN ---
Subjective Date of Service: 06/30/23 Chief Complaint: Complicated cystitis Subjective: No new changes (Pt states her pain at top of abdomen and up esophageal area is better. Awaiting UC results + beta hemolytic strep and 4+ gram neg rods.) <Ambar Roper - Last Filed: 06/30/23 12:08> Date of Service: 06/30/23 <Sher Luciano C - Last Filed: 06/30/23 13:39> Review of Systems 10-point ROS is otherwise unremarkable Gastrointestinal: As per HPI Genitourinary: As per HPI Neurological: As per HPI <Ambar Roperlen - Last Filed: 06/30/23 12:08> Physical Examination - Vital Signs Temperature: 97.4 F Blood Pressure: 158/70 Pulse: 72 Respirations: 17 Pulse Ox (%): 93 - Physical Exam General: Alert, In no apparent distress, Oriented x3, Other (pt's family and Nurse state she talks about "off the wall things" and then acts as if she were not confused. ) HEENT: Atraumatic, Normocephalic Neck: Supple Respiratory: Normal air movement Cardiovascular: Normal pulses Capillary refill: <2 Seconds Gastrointestinal: Soft and benign Musculoskeletal: No swelling Integumentary: No rashes, Other (no jaundice) Lymphatics: No axilla or inguinal lymphadenopathy Urinary: Dobson catheter External genitalia: Deferred Rectal: Deferred <Ambar Roper - Last Filed: 06/30/23 12:08> Assessment And Plan - Plan Emphysematous cystitis Merrem PICC placed to right arm Consult Dr. Garcia Urine culture & sensitivity pending Hypertension Home medications Xoc-viiblbr-jmvpsypbd diabetes Fingerstick blood sugar before meals and at bedtime with mild sliding scale insulin per Chronic pancreatitis Gentle hydration liver enzymes markedly elevated from yesterday. No reported tylenol, norco, new medications, tylenol level drawn = <2.5, repeated LFTs for verification, remain high. No worsening pain, s/p summer, CT abd yesterday did not show any biliary tree dilatation. Will order MRCP to re-eval. Spoke with Pharmacist Lissette, less than 1% hepatotoxicity with Merrem. Will draw Hepatitis panel DVT/GI prophylaxis Lovenox/Protonix - Code Status/Comfort Care Code Status Assessed: Yes (Full) <Ambar Roper - Last Filed: 06/30/23 12:08> - Plan Pt seen and examined. I agree with the note by the INSPECTOR OPTICAL INSTRUMENT. Will continue iv merrem. Lab studies show transaminitis. Will f/u MRCP to r/o biliary obstruction. <Sher Luciano - Last Filed: 06/30/23 13:39>
[2023-06-30] MEDS ORDERED: lisinopriL 5 MG TAB PO ONE (12:29)
[2023-06-30 17:24] LABS: Hepatitis B Core IgM Nonreactive (Nonreactive); Hepatitis B surface AG Interp. Nonreactive (Nonreactive); Hepatitis C Virus Ab Nonreactive (Nonreactive)
[2023-06-30 17:25] LABS: HBsAG Nonreactive Report Report
--- NOTE | 2023-06-30 18:10 | RAD REPORT ---
EXAM DESCRIPTION: MRI - Cholangiogram - 06/30/2023 2:17 pm CLINICAL HISTORY: tripled LFT overnight COMPARISON: Cholangiogram dated 05/03/2019; MRICHOLANGIOGRAM dated 10/04/2012; MRICHOLANGIOGRAM dated 09/28/2011; Abdomen Pelvis W Contrast dated 06/29/2023 TECHNIQUE: Multiplanar multisequence MRI of the abdomen, obtained without IV contrast, utilizing M TELEVISION WRITER sequences. FINDINGS: Status post cholecystectomy. No intrahepatic biliary ductal dilation. Common bile duct is normal in caliber, 4 millimeter. Heterogeneous filling defect along the distal as pect of the common bile duct on series 9 image 13 measures 4 mm. Questionable partially occlusive debby ling defects along the proximal common bile duct, up to 5 mm, see series 9, image 20. Two other small filling defects within the left hepatic duct and the most proximal common bile duct, see series 9, i mage 18, not exceeding 5 mm as well. Smooth tapering at the ampulla. Main pancreatic duct is not dila valentin. The visualized aspects of the liver, spleen, adrenal glands, pancreas, and kidneys are unremarkable a part from stable prominence of the renal pelvis bilaterally. Moderate hiatal hernia. Visualized aspects of the bowel are otherwise unremarkable. No suspicious osseous lesions. Visualized lung bases are unremarkable. IMPRESSION: No intra or extrahepatic biliary ductal dilation. Multiple small calculi along the common bile duct, common hepatic duct, and left hepatic duct.
[2023-07-01] MEDS: HYDRALAZINE HCL 20 MG/ML VIAL IV PRN (00:29)
[2023-07-01 05:05] LABS: Absolute Eosinophils 0.2 K/uL (0-0.5); Absolute Lymphocytes (CBC) 1.5 K/uL (0.7-4.9); Absolute Monocytes 0.7 K/uL (0.1-1.3); Absolute Neutrophil 5.2 K/uL (1.8-8.0); Basophils % 0.3 % (0-1.3); Eosinophils % 2.5 % (0-4.4); Hematocrit 36.3 % (36.0-45.0); Hemoglobin 12.4 g/dL (12.0-15.0); Lymphocytes % 19.5 % (15.3-44.8); MCH 29.7 pg (27.0-35.0); MCHC 34.3 g/dL (32.0-36.0); MCV 86.7 fL (80-100); MPV 8.2 fL (7.6-11.3); Monocytes % 9.3 % (3.3-12.3); Neutrophils % 68.4 % (41.7-73.7); Platelets 176 thou/uL (152-406); RBC Red Blood Cell Count 4.19 M/uL (3.86-4.86); Red Cell Distribution Width 13.5 % (12.1-15.2)
[2023-07-01 05:25] LABS: Albumin 2.7 g/dL (3.4-5.0); Albumin/Globulin Ratio 0.7 (1.1-1.8); Anion Gap 8.7 mEq/L (5.0-15.0); Bilirubin Total 0.8 mg/dL (0.2-1.0); Globulin 3.7 g/dL (2.3-3.5); Potassium 3.7 mEq/L (3.5-5.1); Protein, Total 6.4 g/dL (6.4-8.2)
[2023-07-01] MEDS: MORPHINE 4 MG/ML SYR IV PRN (08:49)
--- NOTE | 2023-07-01 13:19 | P.PN ---
Subjective Date of Service: 07/01/23 Chief Complaint: Complicated cystitis Pti s resting comfortably in bed. She reports nausea and vomiting. LFTs are trending down. Continue abx for klebsiella pneumonia in urine cx. MRCP is unremarkable. No other complaints. Review of Systems General: Unremarkable Eyes: Unremarkable ENT: Unremarkable Respiratory: Unremarkable Cardiovascular: Unremarkable Gastrointestinal: Abdominal Pain Genitourinary: Unremarkable Musculoskeletal: Unremarkable Integumentary: Unremarkable Neurological: Unremarkable Lymphatics: Unremarkable Physical Examination - Vital Signs Temperature: 97.0 F Blood Pressure: 176/82 Pulse: 76 Respirations: 18 Pulse Ox (%): 97 - Physical Exam General: Alert, In no apparent distress, Oriented x3 HEENT: Atraumatic, Normocephalic, PERRLA Neck: Supple, 2+ carotid pulse no bruit, JVD not distended Respiratory: Clear to auscultation bilaterally, Normal air movement Cardiovascular: No edema, Normal pulses, Regular rate/rhythm, Normal S1 S2 Capillary refill: <2 Seconds Gastrointestinal: Normal bowel sounds, Soft and benign, Non-distended Musculoskeletal: No clubbing, No swelling, No contractures Integumentary: No rashes, No breakdown, No significant lesion Neurological: Normal speech, Normal strength at 5/5 x4 extr, Normal tone, Sensation intact Lymphatics: No axilla or inguinal lymphadenopathy Assessment And Plan - Plan Emphysematous cystitis: Will continue iv rocephin. Urine cx is growing klebsiella. Off merrem. Consulted Urologist. Hypertension: Continue home meds. Gih-cyhbmlr-hldxfkdvi diabetes: Will continue accuchek, SSI and ADA diet Chronic pancreatitis: Will continue gentle hydration and trend lipase. Transaminitis: likely due to vesicare. Will hold it. Continue IVF and trend LFTs ( AST 338 -> 114, ALT 298 -> 186). Pt denies use of any tylenol, norco, new medications, tylenol level drawn = <2.5. S/p summer, CT abd did not show any biliary tree dilatation. MRCP is unremarkable. Will check hepatitis panel. DVT ppx: Lovenox GI ppx:pronix Dispo : pending hospital course.
[2023-07-01] MEDS: CEFTRIAXONE 1,000 MG in NA CHLORIDE 0.9% 50 ML IVPB SCH (13:43)
--- NOTE | 2023-07-01 16:52 | EKG ---
Test Date: 2023-06-29 Test Time: 02:45:23 Route Clerk: INA MEASUREMENT RESULTS: Intervals: Rate: 71 ID: [id number] QRSD: 142 QT: 474 QTc: 515 [place]: P: 57 ID: [id number] QRS: -4 T: 126 INTERPRETIVE STATEMENTS: Normal sinus rhythm Left bundle branch block Abnormal ECG Compared to ECG 05/20/2023 15:22:43 No significant changes Electronically Signed On 07-01-23 16:44:32 CDT by Adán Bennett
[2023-07-01] MEDS: SIMETHICONE 125 MG TAB PO ONE (20:42)
[2023-07-01] MEDS: HYDROCODONE/APAP 5/325 MG TAB PO ONE (21:51)
[2023-07-01 23:19] VITALS: O2SAT 95
[2023-07-02] MEDS: MAGNESIUM HYDROXIDE 8% 30 ML PO PRN (05:02)
[2023-07-02 05:26] LABS: Absolute Eosinophils 0.1 K/uL (0-0.5); Absolute Lymphocytes (CBC) 1.3 K/uL (0.7-4.9); Absolute Monocytes 0.7 K/uL (0.1-1.3); Absolute Neutrophil 4.7 K/uL (1.8-8.0); Basophils % 0.4 % (0-1.3); Eosinophils % 1.7 % (0-4.4); Hematocrit 36.9 % (36.0-45.0); Hemoglobin 12.5 g/dL (12.0-15.0); Lymphocytes % 18.8 % (15.3-44.8); MCH 29.5 pg (27.0-35.0); MCV 86.6 fL (80-100); MPV 8.2 fL (7.6-11.3); Neutrophils % 69.1 % (41.7-73.7); Platelets 195 thou/uL (152-406); RBC Red Blood Cell Count 4.26 M/uL (3.86-4.86)
[2023-07-02 05:44] LABS: Albumin 2.8 g/dL (3.4-5.0); Albumin/Globulin Ratio 0.7 (1.1-1.8); Anion Gap 8.1 mEq/L (5.0-15.0); Bilirubin Total 0.6 mg/dL (0.2-1.0); Globulin 4.2 g/dL (2.3-3.5); Potassium 4.1 mEq/L (3.5-5.1)
[2023-07-02] MEDS: Meropenem 1,000 MG in NA CHLORIDE 0.9% 100 ML IV SCH (07:55)
[2023-07-02] MEDS ORDERED: MORPHINE 2 MG/ML SYR IV PRN (14:45)
--- NOTE | 2023-07-02 15:31 | P.DS ---
Admission Date: 06/29/23 Discharge Date: 07/02/23 Disposition: DC HOME/HOME HEALTH CARE Discharge Condition: GOOD Reason for Admission: Complicated cystitis Brief History of Present Illness: Ms. Bettencourt is a 77-year-old female with past medical history of hypertension, chronic pancreatitis, pnp-ivycqzv-hfrppmhgk diabetes, gastric ulcers, kidney stones, and frequent urinary tract infections who presents to the ER with a 2- day history of abdominal pain. She reports a subjective fever. Denies nausea, vomiting, or diarrhea. CT evaluation in the emergency department reveals potential emphysematous cystitis. Ms. Bettencourt reports chronic history of back to back antibiotic treatment for urinary tract infections. She has seen Dr. Garcia multiple times for stenting, lithotripsy, bladder stimulator implantation, and cystitis. We will admit her for IV antibiotics: Urine has been sent for culture. Hospital Course: Pt is a 77yo male with past medical history of hypertension, chronic pancreatitis, bfp-muioahg-umqutgpkl diabetes, gastric ulcers, kidney stones, and frequent urinary tract infections who presented to the ER with a 2-day history of abdominal pain. She reported a subjective fever but denied nausea, vomiting, or diarrhea. On admission, urinalysis suggested UTI. CT abd /pelvis showed potential emphysematous cystitis. We admitted pt for complicated UTI and consulted Dr. Garcia, urologist. She has had multiple stenting, lithotripsy, bladder stimulator implantation, and cystitis treatment under the care of Dr. Garcia. We gave iv rocephin and follow up urine cx. Urine cx grew proteus mi rabilis ESBL. We changed rocephin to Merrem. Pt will take Merrem for 1 week. Lipase was normal. We continued IVF and prn pain med. Pt had elevated LFTs due to vesicare. We stopped vesicare and the transaminitis resolved. Pt was in NAD prior to discharge. Vital Signs/Physical Exam: Temp Pulse Resp BP Pulse Ox 97.3 F 8 L 19 150/67 H 97 07/02/23 12:00 07/02/23 12:00 07/02/23 12:00 07/02/23 12:00 07/02/23 12:00 Laboratory Data at Discharge: WBC 6.80 thou/uL (4.3-10.9) 07/02/23 05:06 Hgb 12.5 g/dL (12.0-15.0) 07/02/23 05:06 Hct 36.9 % (36.0-45.0) 07/02/23 05:06 Plt Count 195 thou/uL (152-406) 07/02/23 05:06 Sodium 136 mEq/L (136-145) 07/02/23 05:06 Potassium 4.1 mEq/L (3.5-5.1) 07/02/23 05:06 BUN 9 mg/dL (7-18) 07/02/23 05:06 Creatinine 0.65 mg/dL (0.55-1.02) 07/02/23 05:06 Glucose 212 mg/dL (74-106) H 07/02/23 05:06 Phosphorus 2.8 mg/dL (2.5-4.9) 06/30/23 06:37 Magnesium 2.2 mg/dL (1.6-2.4) 06/30/23 06:37 Total Bilirubin 0.6 mg/dL (0.2-1.0) 07/02/23 05:06 AST 36 U/L (15-37) 07/02/23 05:06 ALT 119 U/L (13-56) H 07/02/23 05:06 Alkaline Phosphatase 134 U/L (45-117) H 07/02/23 05:06 Triglycerides 144 mg/dL (<150) 06/30/23 06:37 Cholesterol 129 mg/dL (<200) 06/30/23 06:37 HDL Cholesterol 55 mg/dL (40-60) 06/30/23 06:37 Cholesterol/HDL Ratio 2.35 06/30/23 06:37 Lipase 21 U/L (13-75) 06/29/23 03:04 Home Medications: Metformin HCl 1,000 mg PO BID 02/24/23 Amlodipine [Norvasc*] 5 mg PO DAILY 30 Days #30 tab 07/02/23 lisinopriL [Prinivil*] 5 mg PO DAILY 30 Days #30 tab 07/02/23 New Medications: Amlodipine [Norvasc*] 5 mg PO DAILY 30 Days #30 tab lisinopriL [Prinivil*] 5 mg PO DAILY 30 Days #30 tab Physician Discharge Instructions: Continue ad ange activity. Take Merrem 1000mg iv daily for 1 week. Continue other hoe meds. Stop taking vesicare due to liver toxicity. Follow up with PCP within 1 - 2 weeks. Home Health arranged: [facility] [place] P:[phone] F:[phone] Home IV antibiotics: [facility]-[id number], [place], [place] [id number] P/ [place]: [phone] F Diet: AHA Activity: Ad ange Followup: Dmitry Powell, [Primary Care Provider] -
[2023-07-02 16:23] VITALS: BP 147/68; TEMP 98.1
== END 2023-07-02 17:54 | disposition home health service (06) | DRG 690 ==
LOC: ER 02:16 → 4TH 06:50
PROVIDERS: ADMIT Hospitalist; ATTEND Hospitalist
PROC: 02HV33Z Insertion of Infusion Device into Superior Vena Cava, Percutaneous Approach (ICD-10-PCS; principal; 2023-06-29)
PROC: 0T9B70Z Drainage of Bladder with Drainage Device, Via Natural or Artificial Opening (ICD-10-PCS; 2023-06-29)
DX: N30.80 Other cystitis without hematuria (principal); K86.1 Other chronic pancreatitis; Z16.12 Extended spectrum beta lactamase (ESBL) resistance; E11.9 Type 2 diabetes mellitus without complications; I10 Essential (primary) hypertension; E78.5 Hyperlipidemia, unspecified; K21.9 Gastro-esophageal reflux disease without esophagitis; B96.1 Klebsiella pneumoniae [K. pneumoniae] as the cause of diseases classified elsewhere; B96.4 Proteus (mirabilis) (morganii) as the cause of diseases classified elsewhere; T44.3X5A Adverse effect of other parasympatholytics [anticholinergics and antimuscarinics] and spasmolytics, initial encounter; R79.89 Other specified abnormal findings of blood chemistry; R74.01 Elevation of levels of liver transaminase levels; Z60.2 Problems related to living alone; Z79.84 Long term (current) use of oral hypoglycemic drugs; Z90.49 Acquired absence of other specified parts of digestive tract; Z90.710 Acquired absence of both cervix and uterus; Z87.891 Personal history of nicotine dependence; Z79.899 Other long term (current) drug therapy
CPT/HCPCS: 36415; 71045; 72192; 74177; 74181; 80053; 80061; 80074; 80076; 80143; 81001; 82947; 83605; 83690; 83735; 84100; 84484; 85025; 87040; 87077; 87086; 87088; 87186; 93005; 96361; 96374; 96375; 99285; C9113; J0360; J0696; J1650; J1815; J2185; J2270; J2405; J2550; J7030; Q9967

== ENCOUNTER 2023-12-14 04:00 | Inpatient (IN) | payer OTHER ==
[2023-12-14] MEDS ORDERED: ONDANSETRON 4 MG/2 ML VIAL ONE ×2 (04:22→06:06)
[2023-12-14] MEDS ORDERED: MORPHINE 4 MG/ML SYR ONE ×2 (04:23→06:58)
[2023-12-14 04:58] LABS: Absolute Eosinophils 0.1 K/uL (0-0.5); Absolute Lymphocytes (CBC) 1.7 K/uL (0.7-4.9); Absolute Monocytes 0.8 K/uL (0.1-1.3); Absolute Neutrophil 5.7 K/uL (1.8-8.0); Basophils % 0.4 % (0-1.3); Eosinophils % 1.7 % (0-4.4); Hematocrit 41.1 % (36.0-45.0); Hemoglobin 13.6 g/dL (12.0-15.0); Lymphocytes % 20.6 % (15.3-44.8); MCV 84.7 fL (80-100); MPV 8.2 fL (7.6-11.3); Neutrophils % 67.3 % (41.7-73.7); Nucleated Red Blood Cells % 0.1 % (0-0); Platelets 214 thou/uL (152-406); RBC Red Blood Cell Count 4.86 M/uL (3.86-4.86); Red Cell Distribution Width 14.3 % (12.1-15.2)
[2023-12-14 05:16] LABS: ALT/SGPT 16 U/L (13-56); AST/SGOT 11 U/L (15-37); Albumin 3.3 g/dL (3.4-5.0); Albumin/Globulin Ratio 0.8 (1.1-1.8); Alkaline Phosphatase 100 U/L (45-117); Anion Gap 11.1 mEq/L (5.0-15.0); BUN Blood Urea Nitrogen 18 mg/dL (7-18); Bicarbonate 26 mEq/L (21-32); Bilirubin Total 0.5 mg/dL (0.2-1.0); Globulin 4.4 g/dL (2.3-3.5); Glomerular Filtration Rate 76 ml/min (=/>90); Glucose Level 215 mg/dL (74-106); Potassium 4.1 mEq/L (3.5-5.1); Protein, Total 7.7 g/dL (6.4-8.2); Sodium Level 138 mEq/L (136-145); Troponin High Sensitivity 10.5 pg/mL (<58.9)
[2023-12-14 05:20] LABS: Bilirubin Direct < 0.2 mg/dL (0-0.2); Bilirubin Indirect, Calculated 0.3 mg/dL (0.2-0.8); Lipase > 5000 U/L (13-75)
[2023-12-14] MEDS ORDERED: PROMETHAZINE INJ 25 MG/ML AMP ONE (06:08)
--- NOTE | 2023-12-14 06:46 | RAD REPORT ---
EXAMINATION: CT CHEST ABDOMEN PELVIS ANGIOGRAPHY WITH IV CONTRAST INDICATION: Female, 77 years old, ABD PAIN COMPARISON(S): CT abdomen/pelvis 11/18/2023 TECHNIQUE: CT acquisition of the chest, abdomen, and pelvis following the administration of IV contra st in angiographic phase. Coronal and sagittal reformatted images provided. Maximal intensity projection and/or 3D sequences were created by the technologist. This exam was performed according to departmental dose-optimization program which includes automated exposure control, adjustment of the mA and/or kV according to patient size, and/or use of iterative reconstruction technique. FINDINGS: SUPPORTIVE DEVICES: Right-sided chest port with tip terminating in the caudal SVC. Dobson catheter bal loon within the bladder. LOWER NECK: Unremarkable. VASCULAR: Aorta: No evidence of dissection. Normal caliber. Mild atherosclerosis. Aortic branches: Four-vessel arch. Arch and splanchnic neck branches are patent with mild-moderate at herosclerosis, most notable of the splenic artery. Pulmonary arteries: Normal caliber. No obvious central filling defect. Veins: Limited unremarkable assessment due to contrast bolus timing. CHEST: Mediastinum/tamar: No evident thoracic adenopathy. Normal esophagus with moderate-sized hiatal hernia. Heart: Normal size. No pericardial thickening or effusion. No significant coronary atherosclerosis. Lungs: Hazy peripheral groundglass attenuation within the peripheral mid to lower lungs, with a few s uperimposed tree-in-bud micronodular opacities in a similar distribution. No consolidation. Central airways are clear. Pleural Space: No pleural effusion or pneumothorax. ABDOMEN AND PELVIS: Selected contrast bolus timing limits evaluation of the abdominal and pelvic viscera. Liver: Unremarkable. Gallbladder and bile ducts: Postcholecystectomy without evidence of ductal dilation. Unchanged distri bution of pneumobilia in the left greater than right hepatic lobes. Pancreas: Moderate parenchymal and surrounding soft tissue stranding at the head and uncinate process . No evidence of necrosis or new fluid collection. Unchanged ill-defined cystic appearance of the tail. Spleen: Unremarkable. Adrenal glands: Unremarkable. Kidneys and ureters: No acute findings. Mild bilateral renal atrophy. Bladder: Collapsed around a Dobson catheter. Reproductive organs: Absent uterus. No identified pelvic mass. GI tract: Moderate-sized hiatal hernia as above. Inflammation along the duodenal loop with mild wall thickening likely reactive to pancreatic inflammation. Otherwise normal caliber without wall thickening. No evidence of appendicitis. Colonic diverticulosis without diverticulitis. Peritoneum: No evidence of ascites, fluid collection, or free air. Lymph nodes: No evident adenopathy. Abdominal wall: No significant hernia. MUSCULOSKELETAL: No acute osseous abnormality. Degenerative change of the spine and pelvis. Lumbar le vocurvature with partial osseous fusion of L4-L5. IMPRESSION: 1. No acute arterial finding of the chest, abdomen, or pelvis. 2. Acute interstitial pancreatitis without evidence of necrosis or acute fluid collection. Ill-defi chad cystic attenuation of the tail is unchanged from prior exam. 3. Reactive inflammation of the duodenal loop. 4. Peripheral groundglass and tree-in-bud micronodular opacities in both lungs consistent with atyp ical infection. 5. Moderate-sized hiatal hernia. Uncomplicated colonic diverticulosis. 6. Additional chronic and incidental findings above. Electronically signed by: Pola Gonzalez MD 12/14/2023 06:40 AM CDT RP Due to temporary technical issues with the PACS/[employer] reporting system, reports are being primo d by the in-house radiologist without review as a courtesy to ensure prompt reporting the interpreting radiologist is fully responsible for the content of the report. Transcribed Date/Time: 12/14/2023 6:46 AM
[2023-12-14] MEDS ORDERED: NA CHLORIDE 0.9% 0 ML ONE (06:56)
--- NOTE | 2023-12-14 06:59 | EDPHYS ---
Physician Documentation [facility] Name: Isadora Bettencourt Age: 77 yrs Sex: Female : 1945 Arrival Date: 12/14/2023 Time: 04:00 Bed 8 Private MD: ED Physician Efrain Smith HPI: 12/13 04:33 This 77 yrs old Female presents to ER via EMS with complaints of Chest Pain, Epigastric rt Pain. 04:33 Patient presents to the ED with epigastric pain associated with nausea without vomiting rt starting an hour prior to arrival waking her from sleep. Patient states that this feels similar to previous episodes of pancreatitis. Denies other acute to this time, symptoms are moderate in severity, no other aggravating or alleviating factors.. Historical: - Allergies: 04:10 No Known Allergies; al5 - PMHx: 04:10 Anxiety; diabetes mellitus; Hypertension; Kidney stones; Pancreatitis; al5 - PSHx: 04:10 Appendectomy; back; Bladder; Cholecystectomy; knee; Total abdominal hysterectomy; wrist;al5 - Immunization history:: Adult Immunizations up to date. - Infectious Disease History:: Denies. - Social history:: Smoking status: Patient denies any tobacco usage or history of. - Family history:: not pertinent. ROS: 04:33 Constitutional: Negative for fever, chills, and weight loss, Cardiovascular: Negative rt for chest pain, palpitations, and edema, Respiratory: Negative for shortness of breath, cough, wheezing, and pleuritic chest pain, MS/Extremity: Negative for injury and deformity, Skin: Negative for injury, rash, and discoloration, Neuro: Negative for headache, weakness, numbness, tingling, and seizure, 04:33 Abdomen/GI: Positive for abdominal pain, nausea, Exam: 04:33 Constitutional: This is a well developed, well nourished patient who is awake, alert, rt and in no acute distress. Head/Face: Normocephalic, atraumatic. Chest/axilla: Normal chest wall appearance and motion. Nontender with no deformity. No lesions are appreciated. Cardiovascular: Regular rate and rhythm with a normal S1 and S2. No gallops, murmurs, or rubs. Normal PMI, no JVD. No pulse deficits. Respiratory: Lungs have equal breath sounds bilaterally, clear to auscultation and percussion. No rales, rhonchi or wheezes noted. No increased work of breathing, no retractions or nasal flaring. Skin: Warm, dry with normal turgor. Normal color with no rashes, no lesions, and no evidence of cellulitis. MS/ Extremity: Pulses equal, no cyanosis. Neurovascular intact. Full, normal range of motion. Neuro: Awake and alert, GCS 15, oriented to person, place, time, and situation. Cranial nerves II-XII grossly intact. Motor strength 5/5 in all extremities. Sensory grossly intact. Cerebellar exam normal. Normal gait. 04:33 ECG was reviewed by the Attending Physician. 04:33 Abdomen/GI: Tenderness to the epigastrium with mild guarding, no rebound, distention, Vital Signs: 04:00 BP 220 / 98; Pulse 72; Resp 18; Pulse Ox 96% on R/A; al5 04:08 BP 211 / 119; Pulse 75; Resp 18; Temp 97.1; Pulse Ox 95% on R/A; Weight 72.12 kg; al5 Height 5 ft. 9 in. ; Pain 10/10; 04:15 BP 187 / 85; Pulse 72; Resp 18; Pulse Ox 95% on R/A; al5 05:00 BP 189 / 101; Pulse 70; Resp 21; Pulse Ox 96% on R/A; al5 05:52 BP 189 / 90; Pulse 73; Resp 17; Pulse Ox 94% on R/A; al5 06:13 BP 193 / 82; Pulse 74; Resp 18 S; Pulse Ox 97% on R/A; br2 06:46 BP 173 / 82; Pulse 73; Resp 18 S; Pulse Ox 94% on R/A; br2 07:09 BP 157 / 69; Pulse 70; Resp 15; Pulse Ox 95% on R/A; ss 07:11 BP 109 / 54; Pulse 66; Resp 16; Pulse Ox 99% on R/A; ss 04:08 Body Mass Index 23.48 (72.12 kg, 175.26 cm) al5 04:08 Pain Scale: Adult al5 MDM: 04:03 Patient medically screened. rt 06:53 Differential diagnosis: Pancreatitis, aortic dissection, ACS, aortic aneurysm. Data rt reviewed: vital signs, nurses notes, lab test result(s), EKG, radiologic studies. Consideration of Admission/Observation Patient was admitted/placed on observation. Management of patient was discussed with the following: Hospitalist: Agrees to admit. I considered the following discharge prescriptions or medication management in the emergency department Medications were administered in the Emergency Department. See MAR. Independent interpretation of the following test(s) in the Emergency Department CT Scan: My interpretation is Pancreatitis syndrome interpretation of CT scan images. Test considered but Not performed: Ultrasound Postcholecystectomy, ultrasound not indicated. Care significantly affected by the following chronic conditions: Diabetes. Counseling: I had a detailed discussion with the patient and/or guardian regarding the historical points, exam findings, and any diagnostic results supporting the discharge/admit diagnosis, lab results, radiology results. Response to treatment: the patient's symptoms have markedly improved after treatment. 12/13 04:11 Order name: CT Aorta for Dissection rt 12/13 04:11 Order name: Basic Metabolic Panel; Complete Time: 05:21 rt 12/13 04:11 Order name: CBC with Diff; Complete Time: 05:21 rt 12/13 04:11 Order name: LFT's; Complete Time: 05:21 rt 12/13 04:11 Order name: Magnesium; Complete Time: 05:21 rt 12/13 04:11 Order name: Troponin HS; Complete Time: 05:21 rt 12/13 04:11 Order name: Lipase; Complete Time: 05:21 rt 12/13 07:29 Order name: Lipid Profile la1 12/13 04:11 Order name: EKG; Complete Time: 04:12 rt 12/13 04:11 Order name: Cardiac monitoring; Complete Time: 04:54 rt 12/13 04:11 Order name: EKG - Nurse/Tech; Complete Time: 04:14 rt 12/13 04:11 Order name: IV Saline Lock; Complete Time: 04:49 rt 12/13 04:11 Order name: Labs collected and sent; Complete Time: 04:49 rt 12/13 04:11 Order name: O2 Per Protocol; Complete Time: 04:14 rt 12/13 04:11 Order name: O2 Sat Monitoring; Complete Time: 04:14 rt EC:33 Rate is 75 beats/min. Rhythm is regular, Normal Sinus Rhythm with Left bundle branch rt block. Left axis deviation noted. OR interval is normal. QRS interval is normal. QT interval is normal. No Q waves. Administered Medications: 04:48 Drug: morphine IVP or IV 4 mg IVP once over 4 mins Route: IVP; Infused Over: 4 mins; br2 Site: right antecubital; 06:14 Follow up: Response: No adverse reaction; Pain is decreased br2 04:48 Drug: Ondansetron IVP 4 mg IVP once; over 2 minutes Route: IVP; Site: right antecubital;br2 06:15 Follow up: Response: No adverse reaction br2 06:09 Drug: Promethazine IVP 12.5 mg IVP once Route: IVP; Site: right antecubital; br2 06:50 Follow up: Response: No adverse reaction; Nausea is decreased al5 06:58 Drug: NS 0.9% IV 1000 ml IV at 1 bolus Per protocol; 1000 mL bolus Route: IV; Rate: 1 al5 bolus; Site: right antecubital; 09:07 Follow up: IV Status: Infusion continued upon admission iw 06:58 Drug: morphine IVP or IV 4 mg IVP once over 4 mins Route: IVP; Infused Over: 4 mins; al5 Site: right antecubital; 09:08 Not Given (still receiving first boluss): ns 0.9% 1000 ml IV at 1000 ml once iw Disposition Summary: 12/14/23 06:59 Hospitalization Ordered Notes: Hospitalization Status: Inpatient Admission rt Provider: Jeremiah Prater rt Location: Telemetry/MedSurg (Inpatient) rt Condition: Stable rt Problem: an acute exacerbation rt Symptoms: have improved rt Bed/Room Type: Standard rt Room Assignment: 224(12/14/23 07:46) bd Diagnosis - Acute pancreatitis rt Forms: - Medication Reconciliation Form rt - SBAR form rt - Leadership Thank You Letter rt Signatures: Dispatcher [employer] EDMS Jayda Lala Lee, SERJIO-Kathy DIRECT CARE PROFESSIONAL-Cla1 Efrain Smith MD MD rt Janene Latham RN RN al5 Allison Joy RN RN br2 Maddy Lopez RN iw Corrections: (The following items were deleted from the chart) 04:12 04:12 BASIC METABOLIC PANEL+C.LAB.BRZ ordered. EDMS EDMS 04:12 04:12 CBC+H.LAB.BRZ ordered. EDMS EDMS 04:12 04:12 HEPATIC FUNCTION+C.LAB.BRZ ordered. EDMS EDMS 04:12 04:12 MAGNESIUM+C.LAB.BRZ ordered. EDMS EDMS 04:12 04:12 Troponin High Sensitivity+C.LAB.BRZ ordered. EDMS EDMS 04:12 04:12 LIPASE+C.LAB.BRZ ordered. EDMS EDMS 07:29 07:29 LIPID PROFILE+C.LAB.BRZ ordered. EDMS EDMS 07:46 06:59 rt bd
--- NOTE | 2023-12-14 06:59 | ER ---
Nurse's Notes [facility] Name: Isadora Bettencourt Age: 77 yrs Sex: Female : 1945 Arrival Date: 12/14/2023 Time: 04:00 Bed 8 Private MD: Diagnosis: Acute pancreatitis Presentation: 12/13 04:08 Chief complaint: Patient states: c/o substernal chest pain radiating to epigastric area al5 x1 hour, states it woke her up out of her sleep. Coronavirus screen: At this time, the client does not indicate any symptoms associated with coronavirus-19. Ebola Screen: No symptoms or risks identified at this time. Initial Sepsis Screen: Does the patient meet any 2 criteria? No. Patient's initial sepsis screen is negative. Does the patient have a suspected source of infection? No. Patient's initial sepsis screen is negative. Risk Assessment: Do you want to hurt yourself or someone else? Patient reports no desire to harm self or others. Onset of symptoms was December 14, 2023. 04:08 Method Of Arrival: EMS: [facility] al5 04:08 Acuity: FRANDY 3 al5 Triage Assessment: 04:11 General: Appears in no apparent distress. uncomfortable, Behavior is calm, cooperative. al5 Pain: Complains of pain in chest Pain radiates to abdomen Pain currently is 10 out of 10 on a pain scale. EENT: No signs and/or symptoms were reported regarding the EENT system. Neuro: Level of Consciousness is awake, alert, obeys commands, Oriented to person, place, time, situation. Cardiovascular: Reports chest pain, Capillary refill < 3 seconds Patient's skin is warm and dry. Rhythm is sinus rhythm. Respiratory: Airway is patent Respiratory effort is even, unlabored, Respiratory pattern is regular, symmetrical. GI: Abdomen is flat, non-distended, Reports upper abdominal pain, nausea. : Nation in place to gravity drainage clamped nation for incontinence, prior to arrival. Derm: Skin is intact, Skin is pink, warm \T\ dry. normal. Musculoskeletal: No signs and/or symptoms reported regarding the musculoskeletal system. Historical: - Allergies: 04:10 No Known Allergies; al5 - PMHx: 04:10 Anxiety; diabetes mellitus; Hypertension; Kidney stones; Pancreatitis; al5 - PSHx: 04:10 Appendectomy; back; Bladder; Cholecystectomy; knee; Total abdominal hysterectomy; wrist;al5 - Immunization history:: Adult Immunizations up to date. - Infectious Disease History:: Denies. - Social history:: Smoking status: Patient denies any tobacco usage or history of. - Family history:: not pertinent. Screenin:13 [facility] ED Fall Risk Assessment (Adult) History of falling in the last 3 months, al5 including since admission No falls in past 3 months (0 pts) Confusion or Disorientation No (0 pts) Intoxicated or Sedated No (0 pts) Impaired Gait No (0 pts) Mobility Assist Device Used No (0 pt) Altered Elimination No (0 pt) Score/Fall Risk Level 0 - 2 = Low Risk Oriented to surroundings, Maintained a safe environment, Hourly rounding (assess needs \T\ fall precautionary measures) done. Abuse screen: Denies threats or abuse. Denies injuries from another. Nutritional screening: No deficits noted. Tuberculosis screening: No symptoms or risk factors identified. Assessment: 04:13 Reassessment: see triage assessment. Pain: Pain currently is 10 out of 10 on a pain al5 scale. Pain began 1 hour ago. 05:46 Reassessment: Patient appears in no apparent distress at this time. No changes from al5 previously documented assessment. Patient and/or family updated on plan of care and expected duration. Pain level reassessed. Patient is alert, oriented x 3, equal unlabored respirations, skin warm/dry/pink. 06:49 Reassessment: Patient appears in no apparent distress at this time. No changes from al5 previously documented assessment. Patient and/or family updated on plan of care and expected duration. Pain level reassessed. Patient is alert, oriented x 3, equal unlabored respirations, skin warm/dry/pink. 07:09 Reassessment: Report received from SHARMAINE Watters. 07:10 Reassessment: Pt is resting at this time. Eyes closed. RR even and unlabored. Lights ss dimmed for comfort. Awaiting room assignment for admission. Call light remains within reach. 07:13 Reassessment: TASHI Villalobos at bedside assessing pt at this time and discussing plan of care. Vital Signs: 04:00 BP 220 / 98; Pulse 72; Resp 18; Pulse Ox 96% on R/A; al5 04:08 BP 211 / 119; Pulse 75; Resp 18; Temp 97.1; Pulse Ox 95% on R/A; Weight 72.12 kg; al5 Height 5 ft. 9 in. ; Pain 10/10; 04:15 BP 187 / 85; Pulse 72; Resp 18; Pulse Ox 95% on R/A; al5 05:00 BP 189 / 101; Pulse 70; Resp 21; Pulse Ox 96% on R/A; al5 05:52 BP 189 / 90; Pulse 73; Resp 17; Pulse Ox 94% on R/A; al5 06:13 BP 193 / 82; Pulse 74; Resp 18 S; Pulse Ox 97% on R/A; br2 06:46 BP 173 / 82; Pulse 73; Resp 18 S; Pulse Ox 94% on R/A; br2 07:09 BP 157 / 69; Pulse 70; Resp 15; Pulse Ox 95% on R/A; ss 07:11 BP 109 / 54; Pulse 66; Resp 16; Pulse Ox 99% on R/A; ss 04:08 Body Mass Index 23.48 (72.12 kg, 175.26 cm) al5 04:08 Pain Scale: Adult al5 ED Course: 04:03 Patient arrived in ED. rv1 04:03 Efrain Smith MD is Attending Physician. rt 04:08 Janene Latham RN is Primary Nurse. al5 04:10 Triage completed. al5 04:13 Arm band placed on right wrist. Patient placed in the treatment room, on a stretcher. al5 04:13 No provider procedures requiring assistance completed. Patient maintains SpO2 al5 saturation greater than 95% on room air. 04:14 Patient has correct armband on for positive identification. Bed in low position. Call al5 light in reach. Side rails up X2. Provided Education on: plan of care. Client placed on continuous cardiac and pulse oximetry monitoring. NIBP monitoring applied. phototypesetting equipment monitor on. 04:14 Basic Metabolic Panel Sent. al5 04:14 CBC with Diff Sent. al5 04:14 LFT's Sent. al5 04:14 Magnesium Sent. al5 04:14 Troponin HS Sent. al5 04:14 Lipase Sent. al5 04:49 Magnesium Sent. br2 04:49 LFT's Sent. br2 04:49 CBC with Diff Sent. br2 04:49 Troponin HS Sent. br2 04:49 Lipase Sent. br2 05:00 Inserted saline lock: 22 gauge in right antecubital area, using aseptic technique. al5 ,using aseptic technique. done via ultrasound Blood collected. Flushed with 10 mL NS. 05:52 CT Aorta for Dissection In Process Unspecified. EDMS 06:58 Jeremiah Prater MD is Hospitalizing Provider. rt 08:41 Patient admitted, IV remains in place. ss Administered Medications: 04:48 Drug: morphine IVP or IV 4 mg IVP once over 4 mins Route: IVP; Infused Over: 4 mins; br2 Site: right antecubital; 06:14 Follow up: Response: No adverse reaction; Pain is decreased br2 04:48 Drug: Ondansetron IVP 4 mg IVP once; over 2 minutes Route: IVP; Site: right antecubital;br2 06:15 Follow up: Response: No adverse reaction br2 06:09 Drug: Promethazine IVP 12.5 mg IVP once Route: IVP; Site: right antecubital; br2 06:50 Follow up: Response: No adverse reaction; Nausea is decreased al5 06:58 Drug: NS 0.9% IV 1000 ml IV at 1 bolus Per protocol; 1000 mL bolus Route: IV; Rate: 1 al5 bolus; Site: right antecubital; 09:07 Follow up: IV Status: Infusion continued upon admission iw 06:58 Drug: morphine IVP or IV 4 mg IVP once over 4 mins Route: IVP; Infused Over: 4 mins; al5 Site: right antecubital; 09:08 Not Given (still receiving first boluss): ns 0.9% 1000 ml IV at 1000 ml once iw Medication: 04:14 VIS not applicable for this client. al5 Outcome: 06:59 Decision to Hospitalize by Provider. rt 08:41 Admitted to Med/surg accompanied by nurse, accompanied by tech, via stretcher, room ss 224, with chart, Report called to SHARMAINE Lozoya 08:41 Condition: good 08:41 Instructed on the need for admit, 08:42 Patient left the ED. ss Signatures: Dispatcher [facility] NEHEMIAST[facility] Maddy Lopez RN RN Mica Welch RN RN ss Efrain Smith MD MD rt Vandana Davis rv1 Janene Latham, RN RN al5 Allison Joy, RN RN br2
[2023-12-14] MEDS ORDERED: NA CHLORIDE 0.9% 1,000 ML ONE (07:30)
[2023-12-14] MEDS: HYDROMORPHONE HCL 1 MG/ML INJ IV PRN (09:45)
[2023-12-14] MEDS: NA CHLORIDE 0.9% 1,000 ML IV SCH (09:45)
[2023-12-14] MEDS: ENOXAPARIN 40 MG/0.4 ML SQ SCH (09:45)
[2023-12-14] MEDS: FAMOTIDINE 20 MG/2 ML VIAL IV SCH (10:13)
[2023-12-14] MEDS: HYDRALAZINE HCL 20 MG/ML VIAL IV PRN (10:13)
--- NOTE | 2023-12-14 12:25 | EKG ---
Test Date: 2023-12-14 Test Time: 04:06:14 Cloud Operations Engineer: ALEXANDRA MEASUREMENT RESULTS: Intervals: Rate: 75 ND: 164 QRSD: 138 QT: 444 QTc: 495 [place]: P: 78 ND: 164 QRS: -32 T: 124 INTERPRETIVE STATEMENTS: Normal sinus rhythm Left axis deviation Left bundle branch block Abnormal ECG Compared to ECG 11/18/2023 23:37:07 No significant changes Electronically Signed On 12-14-23 12:24:45 CDT by Gautam Tompkins
--- NOTE | 2023-12-14 13:14 | P.HP ---
Certification for Inpatient Patient admitted to: Inpatient With expected LOS: >2 Midnights Patient will require the following post-hospital care: None Practitioner: I am a practitioner with admitting privileges, knowledge of patient current condition, hospital course, and medical plan of care. Services: Services provided to patient in accordance with Admission requirements found in Title 42 Section 412.3 of the Code of Federal Regulations Patient History Date of Service: 12/14/23 Reason for admission: Pancreatitis History of Present Illness: 77-year-old female with history of chronic pancreatitis, hypertension, diabetes mellitus type [id number], hyperlipidemia presents to the emergency department chief complaint of epigastric pain, nausea. She reports this is similar to her previous episodes of pancreatitis which she has had for many years. She was evaluated in the emergency department her labs were significant for a lipase level of greater than 5000, glucose [address] dissection protocol was performed which showed acute interstitial pancreatitis without evidence of necrosis or acute fluid collection. Ill-defined cystic attenuation of the tail is unchanged from previous exams. Reactive inflammation of the duodenal loop. Peripheral groundglass and tree-in-bud micronodular opacities in both lungs consistent with atypical infection. ED provider wishes to admit patient for further management of her acute on chronic pancreatitis. Allergies No Known Allergies Allergy (Verified 03/02/23 13:06) Home Medications: Metformin HCl 1,000 mg PO BID 02/24/23 Amlodipine [Norvasc*] 5 mg PO DAILY 30 Days #30 tab 07/02/23 Polyethylene Glycol 3350 [Miralax] 17 gm PO DAILY 10 Days #10 pkt 07/02/23 lisinopriL [Prinivil*] 5 mg PO DAILY 30 Days #30 tab 07/02/23 - Past Medical/Surgical History Has patient received pneumonia vaccine in the past: Yes Diabetic: Yes -: kidney stones -: Gastroesophageal reflux disease w Hiatal hernia -: Esophageal spasm -: Attention deficit disorder -: Hypertension -: Depression with anxiety -: Hyperlipidemia -: Chronic pain -: Fatty liver, nonalcoholic -: Urinary incontinence/Nephrolithiasis -: Recurrent UTI -: Hysterectomy -: Cholecystectomy -: Appendectomy -: back surgery -: knee surgery -: foot surgery -: EGD/ERCP -: Cardiac catheterization, no stent Psychosocial/ Personal History: Patient lives at home alone - Family History Father -: Diabetes, Cancer Notes: Type 2 Mother -: Hypertension, Diabetes, Other (see notes) Notes: Hypoglycemia Sister Notes: epilepsy - Social History Smoking Status: Former smoker Alcohol use: No CD- Drugs: No Caffeine use: No Place of Residence: Home Review of Systems 10-point ROS is otherwise unremarkable Gastrointestinal: Nausea, Abdominal Pain Physical Examination - Vital Signs Temperature: 97.7 F Blood Pressure: 124/55 Pulse: 82 Respirations: 17 Pulse Ox (%): 92 - Physical Exam General: Alert, In no apparent distress, Oriented x3 HEENT: Atraumatic, PERRLA, EOMI, Sclerae nonicteric Neck: Supple, 2+ carotid pulse no bruit, No LAD, Without JVD or thyroid abnormality Respiratory: Clear to auscultation bilaterally, Normal air movement Cardiovascular: Regular rate/rhythm, Normal S1 S2 Gastrointestinal: Normal bowel sounds, No tenderness Musculoskeletal: No tenderness Integumentary: No rashes Neurological: Normal gait, Normal speech, Normal strength at 5/5 x4 extr, Normal tone Urinary: Dobson catheter - Studies Laboratory Data (last 24 hrs) 12/14/23 12/14/23 04:45 04:45 WBC 8.50 Hgb 13.6 Hct 41.1 Plt Count 214 Sodium 138 Potassium 4.1 BUN 18 Creatinine 0.81 Glucose 215 H Magnesium 2.0 Total Bilirubin 0.5 AST 11 L ALT 16 Alkaline Phosphatase 100 Lipase > 5000 H Assessment and Plan - Plan Assessment: Acute on chronic pancreatitis Diabetes mellitus type [id number] with hyperglycemia Hypertension Hyperlipidemia Plan: Acute on chronic pancreatitis N.p.o., IVF, as needed pain medications and antiemetics Received 2 L IV bolus in ED, continue IV fluids at 150 an hour overnight Diabetes mellitus type 8osy-dlefdtg-ddglkfwod with hyperglycemia Every 6 hours Accu-Chek, sign scale [place] Hypertension Hyperlipidemia Resume home medications when tolerating p.o. DVT PPX: Lovenox Code status: Full Discharge Plan: Home Plan to discharge in: Greater than 2 days - Advance Directives Does patient have a Living Will: No Does patient have a Durable POA for Healthcare: No - Code Status/Comfort Care Code Status Assessed: Yes (Full code) Critical Care: No Time Spent Managing Pts Care (In Minutes): 62
[2023-12-15 07:03] LABS: Absolute Eosinophils 0.3 K/uL (0-0.5); Absolute Lymphocytes (CBC) 1.6 K/uL (0.7-4.9); Absolute Monocytes 0.7 K/uL (0.1-1.3); Basophils % 0.5 % (0-1.3); Eosinophils % 5.2 % (0-4.4); Hematocrit 35.9 % (36.0-45.0); Hemoglobin 11.9 g/dL (12.0-15.0); MCH 28.5 pg (27.0-35.0); MCHC 33.1 g/dL (32.0-36.0); MCV 86.2 fL (80-100); MPV 8.4 fL (7.6-11.3); Monocytes % 10.5 % (3.3-12.3); Neutrophils % 59.8 % (41.7-73.7); Platelets 171 thou/uL (152-406); RBC Red Blood Cell Count 4.16 M/uL (3.86-4.86); Red Cell Distribution Width 14.2 % (12.1-15.2)
[2023-12-15 07:06] LABS: AST/SGOT 12 U/L (15-37); Albumin 2.5 g/dL (3.4-5.0); Albumin/Globulin Ratio 0.7 (1.1-1.8); Alkaline Phosphatase 81 U/L (45-117); Anion Gap 8.1 mEq/L (5.0-15.0); BUN Blood Urea Nitrogen 13 mg/dL (7-18); Bicarbonate 24 mEq/L (21-32); Bilirubin Total 0.9 mg/dL (0.2-1.0); Globulin 3.6 g/dL (2.3-3.5); Glomerular Filtration Rate 90 ml/min (=/>90); Glucose Level 137 mg/dL (74-106); Lipase 179 U/L (13-75); Magnesium 2.1 mg/dL (1.6-2.4); Potassium 4.1 mEq/L (3.5-5.1); Protein, Total 6.1 g/dL (6.4-8.2); Sodium Level 139 mEq/L (136-145)
[2023-12-15 07:07] LABS: ALT/SGPT < 14 U/L (13-56)
--- NOTE | 2023-12-15 09:19 | P.PN ---
Date of Service: 12/15/23 Subjective: Pains improving overnight, still with significant nausea ROS: 10 point ROS as noted above, otherwise negative Physical exam GEN: Alert, oriented, NAD HEENT: Normal conjunctiva, sclera anicteric CV: Regular rate and rhythm, no edema Pulm: Nonlabored respirations on room air ABD: Soft, moderate epigastric/left upper quadrant tenderness, nondistended MSK: No joint tenderness Integumentary: No rashes Neuro: Normal speech, normal affect Vitals reviewed Assessment: Acute on chronic pancreatitis Diabetes mellitus type 1flm-chxawec-qjptloqxl with hyperglycemia Hypertension Hyperlipidemia Plan: Acute on chronic pancreatitis N.p.o., IVF, as needed pain medications and antiemetics Received 2 L IV bolus in ED, continue IV fluids Symptoms slowly improving, lipase improved Consider trial of clear liquids this evening versus tomorrow Diabetes mellitus type [id number]-[id number]-dpycffzwc with hyperglycemia Every 6 hours Accu-Chek, sign scale insulin Hypertension Hyperlipidemia Resume home medications when tolerating p.o. DVT PPX: Lovenox Code status: Full Discharge Plan: Home Plan to discharge in: Greater than 2 days Time Spent Managing Pts Care (In Minutes): 35
[2023-12-15] MEDS: NA CHLORIDE 0.9% 1,000 ML IV SCH (09:21)
[2023-12-15] MEDS: AMLODIPINE 5 MG TAB PO SCH (09:56)
[2023-12-15] MEDS: lisinopriL 5 MG TAB PO SCH (09:57)
[2023-12-15 11:20] VITALS: BMI 23.4
[2023-12-15] MEDS: ONDANSETRON 4 MG/2 ML VIAL IV PRN (20:20)
[2023-12-15] MEDS: ATORVASTATIN 40 MG TAB PO SCH (20:21)
[2023-12-15] MEDS: MAGNES/ALUMIN/SIMET 30ML UCUP PO PRN (21:45)
[2023-12-16 05:01] LABS: Absolute Eosinophils 0.4 K/uL (0-0.5); Absolute Lymphocytes (CBC) 1.5 K/uL (0.7-4.9); Absolute Monocytes 0.7 K/uL (0.1-1.3); Absolute Neutrophil 3.9 K/uL (1.8-8.0); Basophils % 0.6 % (0-1.3); Eosinophils % 5.4 % (0-4.4); Hematocrit 33.4 % (36.0-45.0); Hemoglobin 11.1 g/dL (12.0-15.0); Lymphocytes % 23.2 % (15.3-44.8); MCH 28.3 pg (27.0-35.0); MCHC 33.2 g/dL (32.0-36.0); MCV 85.3 fL (80-100); MPV 7.9 fL (7.6-11.3); Monocytes % 11.2 % (3.3-12.3); Neutrophils % 59.6 % (41.7-73.7); Platelets 160 thou/uL (152-406); RBC Red Blood Cell Count 3.91 M/uL (3.86-4.86); Red Cell Distribution Width 14.1 % (12.1-15.2)
[2023-12-16 05:17] LABS: AST/SGOT 11 U/L (15-37); Albumin 2.4 g/dL (3.4-5.0); Albumin/Globulin Ratio 0.7 (1.1-1.8); Alkaline Phosphatase 76 U/L (45-117); BUN Blood Urea Nitrogen 7 mg/dL (7-18); Bicarbonate 25 mEq/L (21-32); Bilirubin Total 0.8 mg/dL (0.2-1.0); Globulin 3.5 g/dL (2.3-3.5); Glomerular Filtration Rate 91 ml/min (=/>90); Glucose Level 138 mg/dL (74-106); Lipase 59 U/L (13-75); Magnesium 1.9 mg/dL (1.6-2.4); Protein, Total 5.9 g/dL (6.4-8.2); Sodium Level 138 mEq/L (136-145)
[2023-12-16 05:21] LABS: ALT/SGPT < 14 U/L (13-56)
[2023-12-16] MEDS: SOLIFENACIN 5 MG PO SCH (08:48)
[2023-12-16] MEDS: FAMOTIDINE 20 MG/2 ML VIAL IV SCH (09:00)
--- NOTE | 2023-12-16 14:16 | P.PN ---
Date of Service: 12/16/23 Subjective: Pains improving overnight Developed diarrhea yesterday and today ROS: 10 point ROS as noted above, otherwise negative Physical exam GEN: Alert, oriented, NAD HEENT: Normal conjunctiva, sclera anicteric CV: Regular rate and rhythm, no edema Pulm: Nonlabored respirations on room air ABD: Soft, moderate epigastric/left upper quadrant tenderness, nondistended MSK: No joint tenderness Integumentary: No rashes Neuro: Normal speech, normal affect Vitals reviewed Assessment: Acute on chronic pancreatitis Diabetes mellitus type 1rru-boowdrq-qzvyibghc with hyperglycemia Hypertension Hyperlipidemia Plan: Acute on chronic pancreatitis Full liquids for now, IVF, as needed pain medications and antiemetics Received 2 L IV bolus in ED, continue IV fluids Symptoms slowly improving, lipase improved Possible DC tomorrow Diabetes mellitus type 8ccv-tgvvpyu-qezwixgtk with hyperglycemia Every 6 hours Accu-Chek, sign scale insulin Hypertension Hyperlipidemia Home meds resumed DVT PPX: Lovenox Code status: Full Discharge Plan: Home Plan to discharge in: Greater than 2 days Time Spent Managing Pts Care (In Minutes): 35
[2023-12-16] MEDS: INSULIN REGULAR (HUMAN) 100 UNIT/ML SQ SCH (16:30)
[2023-12-16] MEDS: LOPERAMIDE HCL 2 MG CAPSULE PO STA (16:43)
[2023-12-16] MEDS: LOPERAMIDE HCL 2 MG CAPSULE PO ONE (16:44)
[2023-12-17 06:05] LABS: Absolute Eosinophils 0.3 K/uL (0-0.5); Absolute Monocytes 0.6 K/uL (0.1-1.3); Absolute Neutrophil 2.6 K/uL (1.8-8.0); Basophils % 0.7 % (0-1.3); Eosinophils % 6.1 % (0-4.4); Hematocrit 32.1 % (36.0-45.0); Hemoglobin 10.7 g/dL (12.0-15.0); MCH 28.5 pg (27.0-35.0); MCHC 33.2 g/dL (32.0-36.0); MCV 85.8 fL (80-100); MPV 8.1 fL (7.6-11.3); Monocytes % 12.3 % (3.3-12.3); Neutrophils % 57.9 % (41.7-73.7); Platelets 144 thou/uL (152-406); RBC Red Blood Cell Count 3.75 M/uL (3.86-4.86); Red Cell Distribution Width 13.8 % (12.1-15.2)
[2023-12-17 06:28] LABS: Albumin 2.2 g/dL (3.4-5.0); Albumin/Globulin Ratio 0.6 (1.1-1.8); Alkaline Phosphatase 74 U/L (45-117); Anion Gap 6.9 mEq/L (5.0-15.0); BUN Blood Urea Nitrogen 3 mg/dL (7-18); Bicarbonate 26 mEq/L (21-32); Bilirubin Total 0.5 mg/dL (0.2-1.0); Globulin 3.4 g/dL (2.3-3.5); Glomerular Filtration Rate 93 ml/min (=/>90); Glucose Level 145 mg/dL (74-106); Lipase 24 U/L (13-75); Potassium 3.9 mEq/L (3.5-5.1); Protein, Total 5.6 g/dL (6.4-8.2); Sodium Level 143 mEq/L (136-145)
[2023-12-17 06:32] LABS: ALT/SGPT < 14 U/L (13-56); AST/SGOT < 10 U/L (15-37)
[2023-12-17] MEDS: KCL 20 MEQ/100 mL IVPB 20 MEQ/100 ML BAG IV SCH (06:44)
[2023-12-17] MEDS: PROMETHAZINE INJ 25 MG/ML AMP IV PRN (08:53)
[2023-12-17] MEDS: HYDROCODONE/APAP 5/325 MG TAB PO PRN (11:20)
[2023-12-17] MEDS: NA CHLORIDE 0.9% 1,000 ML IV SCH (12:58)
--- NOTE | 2023-12-17 13:30 | P.PN ---
Date of Service: 12/17/23 Subjective: Pains improving overnight Developed diarrhea yesterday but improved now Still having nausea ROS: 10 point ROS as noted above, otherwise negative Physical exam GEN: Alert, oriented, NAD HEENT: Normal conjunctiva, sclera anicteric CV: Regular rate and rhythm, no edema Pulm: Nonlabored respirations on room air ABD: Soft, moderate epigastric/left upper quadrant tenderness, nondistended MSK: No joint tenderness Integumentary: No rashes Neuro: Normal speech, normal affect Vitals reviewed Assessment: Acute on chronic pancreatitis Diabetes mellitus type [id number]-kahimvj-qvumvwgix with hyperglycemia Hypertension Hyperlipidemia Plan: Acute on chronic pancreatitis Full liquids for now, IVF discontinued Symptoms slowly improving, lipase improved Still having nausea today, less after lunch Diabetes mellitus type 6ito-wicuetj-vlexzoqyj with hyperglycemia ACHS Accu-Chek, sliding scale insulin Hypertension Hyperlipidemia Home meds resumed DVT PPX: Lovenox Code status: Full Discharge Plan: Home Plan to discharge in: 1 day Time Spent Managing Pts Care (In Minutes): 35
[2023-12-18] MEDS: HYDROMORPHONE HCL 1 MG/ML INJ IV PRN (04:46)
[2023-12-18 06:18] LABS: Absolute Eosinophils 0.3 K/uL (0-0.5); Absolute Lymphocytes (CBC) 1.3 K/uL (0.7-4.9); Absolute Monocytes 0.7 K/uL (0.1-1.3); Absolute Neutrophil 3.2 K/uL (1.8-8.0); Basophils % 0.8 % (0-1.3); Eosinophils % 5.2 % (0-4.4); Hematocrit 35.4 % (36.0-45.0); Hemoglobin 11.6 g/dL (12.0-15.0); Lymphocytes % 24.1 % (15.3-44.8); MCH 28.1 pg (27.0-35.0); MCHC 32.9 g/dL (32.0-36.0); MCV 85.5 fL (80-100); MPV 8.2 fL (7.6-11.3); Monocytes % 11.8 % (3.3-12.3); Neutrophils % 58.1 % (41.7-73.7); Platelets 188 thou/uL (152-406); RBC Red Blood Cell Count 4.13 M/uL (3.86-4.86); Red Cell Distribution Width 13.9 % (12.1-15.2)
[2023-12-18 06:34] LABS: ALT/SGPT < 14 U/L (13-56); AST/SGOT 13 U/L (15-37); Albumin 2.5 g/dL (3.4-5.0); Albumin/Globulin Ratio 0.7 (1.1-1.8); Alkaline Phosphatase 83 U/L (45-117); Anion Gap 7.9 mEq/L (5.0-15.0); BUN Blood Urea Nitrogen 3 mg/dL (7-18); Bicarbonate 28 mEq/L (21-32); Bilirubin Total 0.5 mg/dL (0.2-1.0); Globulin 3.8 g/dL (2.3-3.5); Glomerular Filtration Rate 91 ml/min (=/>90); Glucose Level 146 mg/dL (74-106); Lipase 17 U/L (13-75); Potassium 3.9 mEq/L (3.5-5.1); Protein, Total 6.3 g/dL (6.4-8.2); Sodium Level 139 mEq/L (136-145)
[2023-12-18 09:22] VITALS: BP 175/82; TEMP 97.8
[2023-12-18 10:42] VITALS: O2SAT 93
--- NOTE | 2023-12-18 12:43 | P.DS ---
Admission Date: 12/14/23 Discharge Date: 12/18/23 Disposition: [facility] HOME/HOME HEALTH CARE Discharge Condition: GOOD Reason for Admission: Pancreatitis Brief History of Present Illness: 77-year-old female with history of chronic pancreatitis, hypertension, diabetes mellitus type 8nsk-krphwer-jwiuzukqu, hyperlipidemia presents to the emergency department chief complaint of epigastric pain, nausea. She reports this is similar to her previous episodes of pancreatitis which she has had for many years. She was evaluated in the emergency department her labs were significant for a lipase level of greater than 5000, glucose [address] dissection protocol was performed which showed acute interstitial pancreatitis without evidence of necrosis or acute fluid collection. Ill-defined cystic attenuation of the tail is unchanged from previous exams. Reactive inflammation of the duodenal loop. Peripheral groundglass and tree-in-bud micronodular opacities in both lungs consistent with atypical infection. ED provider wishes to admit patient for further management of her acute on chronic pancreatitis. Hospital Course: Assessment: Acute on chronic pancreatitis Diabetes mellitus type 7gvh-kfmrpix-kqmzfrgcd with hyperglycemia Hypertension Hyperlipidemia Patient was admitted to the hospital for acute pancreatitis. Her initial lipase was greater than 5000. She was treated conservatively with IV fluids, as needed pain medications and antiemetics and had improvement in her symptoms gradually. She has been tolerating a liquid diet for the last 2 days, off IV fluids for 1 day and having some pain relief with the oral pain medications. She reports that she has oral Phenergan at home. She has also been dealing with some significant reflux/GERD symptoms during her hospitalization and is on twice daily PPI here. She follows with GI outpatient, we will prescribe her physical/Protonix twice daily for 2 weeks followed by once daily for the rest of the month and she will need to follow-up with GI on an outpatient basis. She also be sent a prescription for as needed pain medication. Vital Signs/Physical Exam: Temp Pulse Resp BP Pulse Ox 97.8 F 67 16 175/82 H 93 12/18/23 08:00 12/18/23 08:00 12/18/23 08:00 12/18/23 08:00 12/18/23 08:00 General: Alert, In no apparent distress, Oriented x3 HEENT: Atraumatic, PERRLA Neck: Supple, JVD not distended Respiratory: Clear to auscultation bilaterally, Normal air movement Cardiovascular: Regular rate/rhythm, Normal S1 S2 Gastrointestinal: Normal bowel sounds, No tenderness Musculoskeletal: No tenderness Integumentary: No rashes Neurological: Normal speech, Normal tone, Normal affect Laboratory Data at Discharge: WBC 5.50 thou/uL (4.3-10.9) 12/18/23 06:07 Hgb 11.6 g/dL (12.0-15.0) L D 12/18/23 06:07 Hct 35.4 % (36.0-45.0) L 12/18/23 06:07 Plt Count 188 thou/uL (152-406) D 12/18/23 06:07 Sodium 139 mEq/L (136-145) 12/18/23 06:07 Potassium 3.9 mEq/L (3.5-5.1) 12/18/23 06:07 BUN 3 mg/dL (7-18) L 12/18/23 06:07 Creatinine 0.66 mg/dL (0.55-1.02) 12/18/23 06:07 Glucose 146 mg/dL (74-106) H 12/18/23 06:07 Magnesium 2.0 mg/dL (1.6-2.4) 12/18/23 06:07 Total Bilirubin 0.5 mg/dL (0.2-1.0) 12/18/23 06:07 AST 13 U/L (15-37) L 12/18/23 06:07 ALT < 14 U/L (13-56) 12/18/23 06:07 Alkaline Phosphatase 83 U/L (45-117) 12/18/23 06:07 Triglycerides 164 mg/dL (<150) H 12/14/23 07:43 Cholesterol 173 mg/dL (<200) 12/14/23 07:43 HDL Cholesterol 53 mg/dL (40-60) 12/14/23 07:43 Cholesterol/HDL Ratio 3.26 12/14/23 07:43 Lipase 17 U/L (13-75) 12/18/23 06:07 Home Medications: Metformin HCl 1,000 mg PO BID 02/24/23 Amlodipine [Norvasc*] 5 mg PO DAILY 30 Days #30 tab 07/02/23 lisinopriL [Prinivil*] 5 mg PO DAILY 30 Days #30 tab 07/02/23 Atorvastatin Calcium 40 mg PO BEDTIME 12/14/23 Solifenacin [Vesicare*] 10 mg PO DAILY 12/14/23 Hydrocodone 5/APAP 325 [[place] 5/325*] 1 tab PO Q8H PRN #10 tab 12/18/23 Pantoprazole [Protonix Tab*] 40 mg PO BID #44 tab 12/18/23 New Medications: Hydrocodone 5/APAP 325 [[place] 5/325*] 1 tab PO Q8H PRN #10 tab PRN Reason: Pain Scale 5-7 (Moderate) Pantoprazole [Protonix Tab*] 40 mg PO BID #44 tab Physician Discharge Instructions: Patient was admitted to the hospital for acute pancreatitis. Her initial lipase was greater than 5000. She was treated conservatively with IV fluids, as needed pain medications and antiemetics and had improvement in her symptoms gradually. She has been tolerating a liquid diet for the last 2 days, off IV fluids for 1 day and having some pain relief with the oral pain medications. She reports that she has oral Phenergan at home. She has also been dealing with some significant reflux/GERD symptoms during her hospitalization and is on twice daily PPI here. She follows with GI outpatient, we will prescribe her physical/Protonix twice daily for 2 weeks followed by once daily for the rest of the month and she will need to follow-up with GI on an outpatient basis. She also be sent a prescription for as needed pain medication. Diet: [place] Activity: Ad ange Followup: NONE,NONE [Primary Care Provider] - Mariam White MD [ACTIVE - CAN ADMIT] - 1-2 Weeks Time spent managing pt's care (in minutes): 46
== END 2023-12-18 13:06 | disposition home health service (06) | DRG 440 ==
LOC: ER 04:00 → ERHOLD 07:27 → 2ND 07:56
PROVIDERS: ADMIT Hospitalist; ATTEND Hospitalist
DX: K85.80 Other acute pancreatitis without necrosis or infection (principal); I10 Essential (primary) hypertension; E78.5 Hyperlipidemia, unspecified; K86.1 Other chronic pancreatitis; E11.65 Type 2 diabetes mellitus with hyperglycemia; K21.9 Gastro-esophageal reflux disease without esophagitis; Z60.2 Problems related to living alone; Z79.84 Long term (current) use of oral hypoglycemic drugs; Z90.49 Acquired absence of other specified parts of digestive tract; Z79.899 Other long term (current) drug therapy; Z90.710 Acquired absence of both cervix and uterus; Z87.891 Personal history of nicotine dependence
CPT/HCPCS: 36415; 71275; 74175; 80048; 80053; 80061; 80076; 82947; 83690; 83735; 84484; 85025; 93005; 96361; 96374; 96375; 97116; 97161; 99285; J0360; J1170; J1650; J2405; J2550; J3480; J7030; Q9967

== ENCOUNTER 2024-01-08 16:24 | Emergency (ER) | payer OTHER ==
[2024-01-08] MEDS ORDERED: NA CHLORIDE 0.9% 1,000 ML ONE (16:51)
[2024-01-08] MEDS ORDERED: droPERidol 5 MG/2 ML VIAL ONE (16:51)
[2024-01-08] MEDS ORDERED: DIPHENHYDRAMINE 50 MG/ML VIAL ONE (16:51)
[2024-01-08] MEDS ORDERED: KETOROLAC 30 MG/ML INJ ONE (16:51)
[2024-01-08 17:32] LABS: Absolute Eosinophils 0.3 K/uL (0-0.5); Absolute Lymphocytes (CBC) 1.8 K/uL (0.7-4.9); Absolute Monocytes 0.6 K/uL (0.1-1.3); Absolute Neutrophil 3.8 K/uL (1.8-8.0); Basophils % 0.7 % (0-1.3); Eosinophils % 4.1 % (0-4.4); Hematocrit 41.1 % (36.0-45.0); Hemoglobin 13.7 g/dL (12.0-15.0); Lymphocytes % 27.5 % (15.3-44.8); MCH 28.2 pg (27.0-35.0); MCHC 33.3 g/dL (32.0-36.0); MCV 84.5 fL (80-100); MPV 8.4 fL (7.6-11.3); Monocytes % 9.3 % (3.3-12.3); Neutrophils % 58.4 % (41.7-73.7); Platelets 218 thou/uL (152-406); RBC Red Blood Cell Count 4.86 M/uL (3.86-4.86); Red Cell Distribution Width 14.7 % (12.1-15.2)
[2024-01-08 17:49] LABS: Albumin 3.6 g/dL (3.4-5.0); Albumin/Globulin Ratio 0.8 (1.1-1.8); Anion Gap 6.9 mEq/L (5.0-15.0); Bilirubin Total 0.5 mg/dL (0.2-1.0); Globulin 4.6 g/dL (2.3-3.5); Potassium 3.9 mEq/L (3.5-5.1); Protein, Total 8.2 g/dL (6.4-8.2)
--- NOTE | 2024-01-08 18:25 | RAD REPORT ---
EXAMINATION: CT ABDOMEN AND PELVIS WITH CONTRAST CLINICAL INDICATION: ABD PAIN TECHNIQUE: CT abdomen and pelvis was performed, after the administration of IV contrast, as per [facility] protocol. Axial, sagittal and coronal reconstructions were obtained. One or more of the following dose reduction techniques were used: Automated exposure control, adjustment of the mA and k V according to patient size, and iterative reconstruction. Unless otherwise specified, incidental findings do not require dedicated imaging follow-up. COMPARISON: 12/14/2023 FINDINGS: LOWER CHEST: The visualized lung bases are clear. Moderate hiatal hernia. LIVER: Normal in size and contour. No focal lesion. Absent. Mild pneumobilia. SPLEEN: Normal size. No focal lesion. PANCREAS: No mass, ductal dilation, or jose-pancreatic fluid. ADRENALS: Normal; no mass. KIDNEYS: Enhancement of the uroepithelium bilaterally and urinary bladder. GASTROINTESTINAL TRACT: No evidence of free air, significant intra-abdominal free fluid, bowel obstru ction or abscess. There is moderate diverticulosis coli of the sigmoid colon without diverticulitis. APPENDIX: Appendix not visualized, but no inflammatory changes in region of appendix. LYMPH NODES: No lymphadenopathy. MUSCULOSKELETAL: Mild lower lumbar degenerative changes. ADDITIONAL FINDINGS: None. IMPRESSION: The findings are suspicious for ascending urinary tract infection.
--- NOTE | 2024-01-08 18:50 | EDPHYS ---
Physician Documentation [facility] Name: Isadora Bettencourt Age: 78 yrs Sex: Female : 1945 Arrival Date: 01/08/2024 Time: 16:24 Bed 16 Private MD: ED Physician Ortega Cotton HPI: 01/07 16:41 This 78 yrs old Female presents to ER via EMS with complaints of ec2 Nausea/Vomiting. 16:41 Patient arrives today for evaluation of abdominal pain. History of pancreatitis, ec2 chronic. Reports that she has upper abdominal pain that started several hours ago. Reports feeling nauseous. History of cholecystectomy, hysterectomy. Historical: - Allergies: 16:26 No Known Allergies; rs5 - PMHx: 16:26 diabetes mellitus; Anxiety; Hypertension; Kidney stones; Pancreatitis; rs5 - PSHx: 16:26 Appendectomy; back; Bladder; Cholecystectomy; knee; Total abdominal hysterectomy; wrist;rs5 - Immunization history:: Adult Immunizations up to date. - Infectious Disease History:: Denies. - Social history:: Smoking status: Patient denies any tobacco usage or history of. ROS: 16:41 Constitutional: as per hpi ec2 Exam: 16:41 Constitutional: GEN: NAD Head: atraumatic Eyes: EOMI Ears: External ears are ec2 normal. CV: regular rate LUNGS: no respiratory distress ABD: non-distended, soft, tender in the epigastrium, not guarding, not rigid SKIN: no evidence of rashes MSK: no evidence of trauma Vital Signs: 16:25 BP 181 / 98; Pulse 67; Resp 17; Pulse Ox 98% on R/A; rs5 18:02 BP 165 / 83; Pulse 72; Resp 17; Pulse Ox 99% on R/A; rs5 MDM: 16:27 Medical Screening Exam initiated ec2 16:41 Data reviewed: vital signs. ED course: Arrives today for evaluation of abdominal pain. ec2 Examination remarkable for abdominal findings above. Will obtain lab work, CT imaging and treat the patient's pain. Differential includes pancreatitis, gastritis, electrolyte disturbances.. 17:54 ED course: CBC, metabolic profile, lipase are nonactionable.. ec2 18:48 ED course: CT imaging with likely ascending urinary tract infection, will send urine ec2 specimen from patient's catheter. Without the patient on empiric antibiotic therapy and have the patient follow-up outpatient with primary care. Return precautions given.. 01/07 16:32 Order name: CBC with Diff; Complete Time: 17:54 ec2 01/07 16:32 Order name: CMP; Complete Time: 17:54 ec2 01/07 16:32 Order name: Lipase; Complete Time: 17:54 ec2 01/07 18:42 Order name: UAM ec2 01/07 19:22 Order name: Urine Culture EDMS 01/07 16:32 Order name: CT Abd/Pelvis - IV Contrast Only; Complete Time: 18:42 ec2 01/07 16:32 Order name: IV Saline Lock; Complete Time: 17:31 ec2 01/07 16:32 Order name: Labs collected and sent; Complete Time: 17:31 ec2 Administered Medications: 16:40 Drug: TORadol - Ketorolac IVP 15 mg IVP once Route: IVP; Site: right antecubital; rs5 19:05 Follow up: Response: No adverse reaction; Pain is decreased rs5 16:40 Drug: Droperidol IVP 2.5 mg IVP once Route: IVP; Site: right antecubital; rs5 19:04 Follow up: Response: No adverse reaction rs5 17:49 Drug: NS 0.9% IV 1000 ml IV at 1 bolus Per protocol; to be given as a bolus over 60 rs5 minutes Route: IV; Rate: 1 bolus; Site: right antecubital; 19:04 Follow up: IV Status: Completed infusion; IV Intake: 1000ml rs5 17:49 Drug: diphenhydrAMINE IVP 50 mg IVP once Route: IVP; Site: right antecubital; rs5 19:04 Follow up: Response: No adverse reaction rs5 19:07 Drug: Trimethoprim-Sulfamethoxazole PO (160 mg-800 mg (DS) 1 tablet PO once Route: PO; rg5 19:23 Follow up: Response: No adverse reaction; Pain is decreased rg5 19:07 Drug: HYDROcodone-acetaminophen PO 5 mg-325 mg 1 tabs PO once Route: PO; rg5 19:23 Follow up: Response: No adverse reaction rg5 Disposition Summary: 01/08/24 18:49 Discharge Ordered Notes: Location: Home ec2 Condition: Stable ec2 Diagnosis - UTI/ Urinary tract infection, site not specified ec2 - Upper abdominal pain, unspecified ec2 Followup: ec2 - With: Private Physician - When: - Reason: Re-evaluation by your physician Discharge Instructions: - Discharge Summary Sheet ec2 - Urinary Tract Infection, Adult ec2 Forms: - Medication Reconciliation Form ec2 - Antibiotic Education ec2 - Prescription Opioid Use ec2 - Patient Portal Instructions ec2 - Leadership Thank You Letter ec2 Prescriptions: - acetaminophen-codeine 300-30 mg Oral tablet - take 1 tablet ORAL route every 4 hours; 10 tablet; Refills: 0, Product ec2 Selection Permitted - Bactrim DS 800-160 mg Oral Tablet - take 1 tablet ORAL route every 12 hours for 7 days; 14 tablet; Refills: 0, ec2 Product Selection Permitted Signatures: Dispatcher [employer] Demarco Green, RN RN rs5 Ortega Cotton MD MD ec2 Dre Sousa RN RN rg5 Corrections: (The following items were deleted from the chart) 18:42 18:42 Urinalysis W/Microscopic+U.LAB.BRZ ordered. ALISA CUELLAR
--- NOTE | 2024-01-08 18:50 | ER ---
Nurse's Notes [facility] Name: Isadora Bettencourt Age: 78 yrs Sex: Female : 1945 Arrival Date: 01/08/2024 Time: 16:24 Bed 16 Private MD: Diagnosis: UTI/ Urinary tract infection, site not specified;Upper abdominal pain, unspecified Presentation: 01/07 16:25 Chief complaint: EMS states: N/V and abdominal pain that started 2 hours prior to rs5 arrival. Recently hospitalized for pancreatitis one week ago for similar symptoms. Coronavirus screen: At this time, the client does not indicate any symptoms associated with coronavirus-19. Ebola Screen: No symptoms or risks identified at this time. Initial Sepsis Screen: Does the patient meet any 2 criteria? No. Patient's initial sepsis screen is negative. Does the patient have a suspected source of infection? No. Patient's initial sepsis screen is negative. Risk Assessment: Do you want to hurt yourself or someone else? Patient reports no desire to harm self or others. Onset of symptoms was January 08, 2024. 16:25 Method Of Arrival: EMS: [facility] rs5 16:25 Acuity: FRANDY 3 rs5 Historical: - Allergies: 16:26 No Known Allergies; rs5 - PMHx: 16:26 diabetes mellitus; Anxiety; Hypertension; Kidney stones; Pancreatitis; rs5 - PSHx: 16:26 Appendectomy; back; Bladder; Cholecystectomy; knee; Total abdominal hysterectomy; wrist;rs5 - Immunization history:: Adult Immunizations up to date. - Infectious Disease History:: Denies. - Social history:: Smoking status: Patient denies any tobacco usage or history of. Screenin:30 [facility] ED Fall Risk Assessment (Adult) History of falling in the last 3 months, rs5 including since admission No falls in past 3 months (0 pts) Confusion or Disorientation No (0 pts) Intoxicated or Sedated No (0 pts) Impaired Gait No (0 pts) Mobility Assist Device Used No (0 pt) Altered Elimination No (0 pt) Score/Fall Risk Level 0 - 2 = Low Risk Oriented to surroundings, Maintained a safe environment. Abuse screen: Denies threats or abuse. Nutritional screening: No deficits noted. Tuberculosis screening: No symptoms or risk factors identified. Assessment: 16:30 General: Appears in no apparent distress. uncomfortable, Behavior is calm, cooperative. rs5 Pain: Complains of pain in abdomen Pain currently is 6 out of 10 on a pain scale. Quality of pain is described as aching. Neuro: Level of Consciousness is awake, alert, obeys commands, Oriented to person, place, time, situation. Cardiovascular: Patient's skin is warm and dry. Respiratory: Airway is patent Respiratory effort is even, unlabored, Respiratory pattern is regular, symmetrical. GI: Abdomen is round non-distended, Abd is soft and non tender X 4 quads. Reports nausea. : No signs and/or symptoms were reported regarding the genitourinary system. EENT: No signs and/or symptoms were reported regarding the EENT system. Derm: Skin is intact, Skin is pink, warm \\T\\ dry. Musculoskeletal: Range of motion: intact in all extremities. 17:55 Reassessment: Patient and/or family updated on plan of care and expected duration. Pain rs5 level reassessed. Patient is alert, oriented x 3, equal unlabored respirations, skin warm/dry/pink. 19:09 Reassessment: Patient and/or family updated on plan of care and expected duration. Pain rs5 level reassessed. Patient is alert, oriented x 3, equal unlabored respirations, skin warm/dry/pink. pt up for discharge, pt states "I am going to call my family to come and pick me up". Vital Signs: 16:25 BP 181 / 98; Pulse 67; Resp 17; Pulse Ox 98% on R/A; rs5 18:02 BP 165 / 83; Pulse 72; Resp 17; Pulse Ox 99% on R/A; rs5 ED Course: 16:25 Patient arrived in ED. rs5 16:25 Ortega Cotton MD is Attending Physician. ec2 16:26 Triage completed. rs5 16:30 No provider procedures requiring assistance completed. rs5 16:30 Patient has correct armband on for positive identification. Placed in gown. Bed in low rs5 position. Call light in reach. Side rails up X2. 16:38 Demarco Palmer, RN is Primary Nurse. rs5 17:25 Initial lab(s) drawn, by me, sent to lab. Inserted saline lock: 24 gauge in right iw forearm, using aseptic technique. Blood collected. Flushed with 10 mL NS. 18:14 CT Abd/Pelvis - IV Contrast Only In Process Unspecified. EDMS 19:24 IV discontinued, bleeding controlled, No redness/swelling at site. Pressure dressing rg5 applied. 19:24 Provided Education on: post er care. rg5 Administered Medications: 16:40 Drug: TORadol - Ketorolac IVP 15 mg IVP once Route: IVP; Site: right antecubital; rs5 19:05 Follow up: Response: No adverse reaction; Pain is decreased rs5 16:40 Drug: Droperidol IVP 2.5 mg IVP once Route: IVP; Site: right antecubital; rs5 19:04 Follow up: Response: No adverse reaction rs5 17:49 Drug: NS 0.9% IV 1000 ml IV at 1 bolus Per protocol; to be given as a bolus over 60 rs5 minutes Route: IV; Rate: 1 bolus; Site: right antecubital; 19:04 Follow up: IV Status: Completed infusion; IV Intake: 1000ml rs5 17:49 Drug: diphenhydrAMINE IVP 50 mg IVP once Route: IVP; Site: right antecubital; rs5 19:04 Follow up: Response: No adverse reaction rs5 19:07 Drug: Trimethoprim-Sulfamethoxazole PO (160 mg-800 mg (DS) 1 tablet PO once Route: PO; rg5 19:23 Follow up: Response: No adverse reaction; Pain is decreased rg5 19:07 Drug: HYDROcodone-acetaminophen PO 5 mg-325 mg 1 tabs PO once Route: PO; rg5 19:23 Follow up: Response: No adverse reaction rg5 Medication: 17:55 VIS not applicable for this client. rs5 Intake: 19:04 IV: 1000ml; Total: 1000ml. rs5 Outcome: 18:49 Discharge ordered by . ec2 19:23 Discharged to home via wheelchair, rg5 19:23 Condition: stable 19:23 Discharge instructions given to patient, Instructed on discharge instructions, Demonstrated understanding of instructions, 19:24 Patient left the ED. rg5 Signatures: Dispatcher [employer] Maddy May RN RN iw Demarco Palmer RN RN rs5 Ortega Cotton MD MD ec2 Dre Sousa RN RN rg5
[2024-01-08] MEDS ORDERED: SMZ./TMP. 800/160 MG TABLET ONE (19:10)
[2024-01-08] MEDS ORDERED: HYDROCODONE/APAP 5/325 MG TAB ONE (19:11)
[2024-01-08 19:19] LABS: Specific Gravity 1.016 (1.005-1.030); Sqamous Epithelial <5 /HPF (None Seen); Urine Bacteria <20 /HPF (<20); Urine Bilirubin NEGATIVE (Negative); Urine Blood 1+ (Negative); Urine Clarity Extremely Turbid (Clear); Urine Color Light-Yellow (Yellow); Urine Crystals Unidentified Few /HPF (None Seen); Urine Culture Reflex Order REFLEXED; Urine Glucose 1+ (Negative); Urine Ketones NEGATIVE (Negative); Urine Micro Reflex YN NO BILL MICROSCOPIC; Urine Nitrite 1+ (Negative); Urine Protein TRACE (Negative); Urine Urobilinogen Normal (Normal); Urine WBC >50 /HPF (<5); Urine WBC Clump Occasional /HPF (None Seen); Urine Yeast (Budding) Few /HPF (None Seen); Urine pH 5.5 (5.0-7.0)
[2024-01-08 19:39] VITALS: BP 165/83; O2SAT 99
== END 2024-01-08 19:24 | disposition home or self-care (01) ==
LOC: ER 16:24
DX: N39.0 Urinary tract infection, site not specified (principal); R10.13 Epigastric pain; E11.9 Type 2 diabetes mellitus without complications; I10 Essential (primary) hypertension
CPT/HCPCS: 96361; 87088; 85025; 81001; 87086; 36415; 83690; 80053; 74177; 96375; 96374; 99284; Q9967; J1200; J1790; J7030; 87077; 87186

== ENCOUNTER 2024-01-15 15:59 | Emergency (ER) | payer OTHER ==
--- NOTE | 2024-01-15 16:52 | ER ---
Nurse's Notes [facility] Name: Isadora Bettencourt Age: 78 yrs Sex: Female : 1945 Arrival Date: 01/15/2024 Time: 15:59 Bed 20 Private MD: Diagnosis: Leakage of urinary (indwelling) catheter Presentation: 01/14 16:07 Chief complaint: EMS states: they were toned out for pain and drainage to her urinary kc6 catheter that was changed today by home health. pt states she was told to come her by Dr. Garcia to have it changed out. Coronavirus screen: At this time, the client does not indicate any symptoms associated with coronavirus-19. Ebola Screen: No symptoms or risks identified at this time. Initial Sepsis Screen: Does the patient meet any 2 criteria? No. Patient's initial sepsis screen is negative. Does the patient have a suspected source of infection? No. Patient's initial sepsis screen is negative. Risk Assessment: Do you want to hurt yourself or someone else? Patient reports no desire to harm self or others. Onset of symptoms was January 15, 2024. 16:07 Method Of Arrival: EMS: [facility] kc6 16:07 Acuity: FRANDY 4 kc6 Triage Assessment: 16:09 General: Appears in no apparent distress. comfortable, well groomed, well developed, kc6 Behavior is calm, cooperative, appropriate for age. Pain: Complains of pain in pelvis. EENT: No signs and/or symptoms were reported regarding the EENT system. Neuro: Level of Consciousness is awake, alert, obeys commands, Oriented to person, place, time, situation, Appropriate for age. Cardiovascular: Capillary refill < 3 seconds. Respiratory: Airway is patent Trachea midline Respiratory effort is even, unlabored, Respiratory pattern is regular, symmetrical. GI: No signs and/or symptoms were reported involving the gastrointestinal system. : Dobson in place to gravity drainage clamped Urine is clear, Reports incontinence, pain in suprapubic area. Derm: No signs and/or symptoms reported regarding the dermatologic system. Skin is intact, is healthy with good turgor, Skin is pink, warm \T\ dry. Musculoskeletal: No signs and/or symptoms reported regarding the musculoskeletal system. Circulation, motion, and sensation intact. Capillary refill < 3 seconds, Range of motion: intact in all extremities. Historical: - Allergies: 16:09 No Known Allergies; kc6 - PMHx: 16:09 Anxiety; diabetes mellitus; Hypertension; Kidney stones; Pancreatitis; kc6 - PSHx: 16:09 Appendectomy; back; Bladder; Cholecystectomy; knee; Total abdominal hysterectomy; wrist;kc6 - Immunization history:: Adult Immunizations up to date. - Infectious Disease History:: Denies. - Social history:: Smoking status: Patient denies any tobacco usage or history of. Screenin:11 [facility] ED Fall Risk Assessment (Adult) History of falling in the last 3 months, kc6 including since admission No falls in past 3 months (0 pts) Confusion or Disorientation No (0 pts) Intoxicated or Sedated No (0 pts) Impaired Gait Yes (1 pt) Mobility Assist Device Used Yes (1 pt) Altered Elimination Yes (1 pt) Score/Fall Risk Level 3 or more points = High Risk Oriented to surroundings, Maintained a safe environment. Abuse screen: Denies threats or abuse. Denies injuries from another. Nutritional screening: No deficits noted. Tuberculosis screening: No symptoms or risk factors identified. Assessment: 16:10 Reassessment: please see triage. kc6 17:35 Reassessment: Patient appears in no apparent distress at this time. No changes from [facility] previously documented assessment. Patient and/or family updated on plan of care and expected duration. Pain level reassessed. Patient is alert, oriented x 3, equal unlabored respirations, skin warm/dry/pink. Patient states feeling better. Patient states symptoms have improved. Vital Signs: 16:07 BP 179 / 84; Pulse 73; Resp 17 S; Temp 98.5(O); Pulse Ox 97% on R/A; Weight 71.67 kg kc6 (R); Height 5 ft. 1 in. (R); 17:35 BP 163 / 90; Pulse 63; Resp 18 S; Pulse Ox 99% on R/A; kc6 16:07 Body Mass Index 29.85 (71.67 kg, 154.94 cm) [facility] ED Course: 16:01 Patient arrived in ED. kb 16:02 Mecca Sullivan F[facility]-C [facility]. kb 16:02 Efrain Smith MD is Attending Physician. kb 16:04 Angela Glass RN is Primary Nurse. kc6 16:09 Triage completed. kc6 16:09 Arm band placed on. kc6 16:10 Patient has correct armband on for positive identification. Bed in low position. Call kc6 light in reach. Side rails up X2. Pulse ox on. NIBP on. Door closed. Noise minimized. Lights dimmed. Pillow given. 16:11 Patient maintains SpO2 saturation greater than 95% on room air. kc6 16:33 Removal of urinary catheter. kc6 16:34 Dobson cath inserted, using sterile technique, 16 Fr., by az, balloon inflated, to kc6 gravity drainage, clamped. urine specimen collected. returned clear yellow urine. Patient tolerated well. 17:36 No provider procedures requiring assistance completed. Patient did not have IV access kc6 during this emergency room visit. Administered Medications: No medications were administered Medication: 17:36 VIS not applicable for this client. kc6 Outcome: 16:52 Discharge ordered by . ortiz 17:36 Discharged to home via wheelchair, with family, kc6 17:36 Condition: improved 17:36 Discharge instructions given to patient, Instructed on discharge instructions, follow up and referral plans. Demonstrated understanding of instructions, follow-up care, 17:36 Patient left the ED. kc6 Signatures: Mecca Sullivan, GENERAL HOUSE WORKER-C GENERAL HOUSE WORKER-Angela Martino, RN RN kc6
--- NOTE | 2024-01-15 16:52 | EDPHYS ---
Physician Documentation [facility] Name: Isadora Bettencourt Age: 78 yrs Sex: Female : 1945 Arrival Date: 01/15/2024 Time: 15:59 Bed 20 Private MD: ED Physician Efrain Smith HPI: 01/14 16:50 This 78 yrs old Female presents to ER via EMS with complaints of Problem With Urinary kb Catheter. 16:50 Pt is a 78 year old female who presents for leaking catheter that started today. Denies kb abd pain, n/v/d, fever. States urine is coming out around the tubing. . Historical: - Allergies: 16:09 No Known Allergies; kc6 - PMHx: 16:09 Anxiety; diabetes mellitus; Hypertension; Kidney stones; Pancreatitis; kc6 - PSHx: 16:09 Appendectomy; back; Bladder; Cholecystectomy; knee; Total abdominal hysterectomy; wrist;kc6 - Immunization history:: Adult Immunizations up to date. - Infectious Disease History:: Denies. - Social history:: Smoking status: Patient denies any tobacco usage or history of. ROS: 16:50 Constitutional: As per HPI kb Exam: 16:50 Constitutional: This is a well developed, well nourished patient who is awake, alert, kb and in no acute distress. Head/Face: Normocephalic, atraumatic. ENT: Moist Mucous membranes Cardiovascular: Regular rate Respiratory: Respirations even and unlabored. No increased work of breathing. Talking in full sentences Abdomen/GI: Soft, non-tender. No distention Skin: Warm, dry with normal turgor. Normal color. MS/ Extremity: Pulses equal, no cyanosis. Neurovascular intact. Full, normal range of motion. Neuro: Awake and alert, GCS 15, oriented to person, place, time, and situation. Vital Signs: 16:07 BP 179 / 84; Pulse 73; Resp 17 S; Temp 98.5(O); Pulse Ox 97% on R/A; Weight 71.67 kg kc6 (R); Height 5 ft. 1 in. (R); 17:35 BP 163 / 90; Pulse 63; Resp 18 S; Pulse Ox 99% on R/A; kc6 16:07 Body Mass Index 29.85 (71.67 kg, 154.94 cm) kc6 MDM: 16:02 Medical Screening Exam initiated kb 16:51 Differential diagnosis: nation malfunction, nation displaced, uti. Data reviewed: vital kb signs, nurses notes. 16:51 Historians other than the Patient: EMS: [facility]. Counseling: I had a detailed kb discussion with the patient and/or guardian regarding the historical points, exam findings, and any diagnostic results supporting the discharge/admit diagnosis, the need for outpatient follow up, a family practitioner, to return to the emergency department if symptoms worsen or persist or if there are any questions or concerns that arise at home. 16:52 ED course: Pt reports she is currently on antibiotics for a UTI. kb 01/14 16:31 Order name: Urinalysis w/ reflexes; Complete Time: 17:30 kb 01/14 17:32 Order name: Urine Culture EDIL 01/14 16:02 Order name: Nation: remove nation and place new one please; Complete Time: 16:33 kb Administered Medications: No medications were administered Disposition: 19:10 Co-signature as Attending Physician, Efrain Smith MD I reviewed the patient's care rt provided by the Advanced Practice Provider and agree with the diagnosis and treatment plan. Disposition Summary: 01/15/24 16:52 Discharge Ordered Notes: Location: Home kb Condition: Stable kb Diagnosis - Leakage of urinary (indwelling) catheter kb Followup: kb - With: Emergency Department - When: As needed - Reason: Worsening of condition Followup: kb - With: Private Physician - When: 2 - 3 days - Reason: Recheck today's complaints, Continuance of care, Re-evaluation by your physician Discharge Instructions: - Discharge Summary Sheet kb - Indwelling Urinary Catheter Care, Adult, [id number] kb Forms: - Medication Reconciliation Form kb - Antibiotic Education kb - Prescription Opioid Use kb - Patient Portal Instructions kb - Leadership Thank You Letter kb Signatures: Dispatcher [employer] EDMS Mecca Sullivan FNP-C FNP-Angela Martino RN RN kcEfrain Dos Santos MD MD rt
[2024-01-15 17:21] LABS: Sqamous Epithelial <5 /HPF (None Seen); Urine Bacteria <20 /HPF (<20); Urine Bilirubin NEGATIVE (Negative); Urine Blood 2+ (Negative); Urine Clarity Extremely Turbid (Clear); Urine Color Yellow (Yellow); Urine Culture Reflex Order REFLEXED; Urine Glucose 3+ (Negative); Urine Ketones NEGATIVE (Negative); Urine Microscopic Reflex YN ORDER UMIC; Urine Mucus Slight /HPF (None Seen); Urine Nitrite NEGATIVE (Negative); Urine Protein 2+ (Negative); Urine RBC 21-50 /HPF (None Seen); Urine Urobilinogen Normal (Normal); Urine WBC >50 /HPF (<5); Urine Yeast (Budding) Occasional /HPF (None Seen); Urine pH 5.5 (5.0-7.0)
[2024-01-15 17:27] LABS: Transitional Epithelial <5 /HPF (None Seen)
[2024-01-15 17:45] VITALS: TEMP 98.5
[2024-01-15 17:46] VITALS: BP 163/90; O2SAT 99
== END 2024-01-15 17:36 | disposition home or self-care (01) ==
LOC: ER 15:59
DX: T83.038A Leakage of other urinary catheter, initial encounter (principal)
CPT/HCPCS: 51702; 81001; 87077; 87086; 87088; 87186; 99284

== ENCOUNTER 2024-01-28 20:02 | Emergency (ER) | payer OTHER ==
[2024-01-28] MEDS ORDERED: NA CHLORIDE 0.9% 1,000 ML ONE (21:46)
[2024-01-28] MEDS ORDERED: ONDANSETRON 4 MG/2 ML VIAL ONE (21:46)
[2024-01-28] MEDS ORDERED: MORPHINE 4 MG/ML SYR ONE (21:46)
[2024-01-28 22:25] LABS: ALT/SGPT 15 U/L (13-56); Albumin 3.6 g/dL (3.4-5.0); Albumin/Globulin Ratio 0.8 (1.1-1.8); Alkaline Phosphatase 103 U/L (45-117); Anion Gap 10.7 mEq/L (5.0-15.0); BUN Blood Urea Nitrogen 15 mg/dL (7-18); Bicarbonate 24 mEq/L (21-32); Bilirubin Total 0.6 mg/dL (0.2-1.0); Globulin 4.3 g/dL (2.3-3.5); Glomerular Filtration Rate 87 ml/min (=/>90); Glucose Level 185 mg/dL (74-106); Lipase 31 U/L (13-75); Potassium 3.7 mEq/L (3.5-5.1); Protein, Total 7.9 g/dL (6.4-8.2); Sodium Level 136 mEq/L (136-145)
[2024-01-28 22:28] LABS: AST/SGOT < 10 U/L (15-37)
[2024-01-28 22:40] LABS: Specific Gravity 1.009 (1.005-1.030); Sqamous Epithelial <5 /HPF (None Seen); Urine Bacteria 20-50 /HPF (<20); Urine Bilirubin NEGATIVE (Negative); Urine Blood 1+ (Negative); Urine Clarity Extremely Turbid (Clear); Urine Color Light-Orange (Yellow); Urine Crystals Unidentified Few /HPF (None Seen); Urine Culture Reflex Order REFLEXED; Urine Glucose NEGATIVE (Negative); Urine Ketones NEGATIVE (Negative); Urine Microscopic Reflex YN ORDER UMIC; Urine Mucus Slight /HPF (None Seen); Urine Nitrite 2+ (Negative); Urine Protein TRACE (Negative); Urine Urobilinogen Normal (Normal); Urine WBC >50 /HPF (<5); Urine WBC Clump Many /HPF (None Seen); Urine Yeast (Budding) Many /HPF (None Seen)
[2024-01-29 00:16] LABS: Absolute Basophils 0.1 K/uL (0-0.5); Absolute Eosinophils 0.1 K/uL (0-0.5); Absolute Lymphocytes (CBC) 2.1 K/uL (0.7-4.9); Absolute Monocytes 0.5 K/uL (0.1-1.3); Absolute Neutrophil 4.3 K/uL (1.8-8.0); Eosinophils % 1.8 % (0-4.4); Hematocrit 41.1 % (36.0-45.0); Hemoglobin 13.8 g/dL (12.0-15.0); Lymphocytes % 29.8 % (15.3-44.8); MCH 28.3 pg (27.0-35.0); MCHC 33.5 g/dL (32.0-36.0); MCV 84.5 fL (80-100); MPV 8.7 fL (7.6-11.3); Monocytes % 7.4 % (3.3-12.3); Platelets 186 thou/uL (152-406); RBC Red Blood Cell Count 4.87 M/uL (3.86-4.86); Red Cell Distribution Width 15.2 % (12.1-15.2)
--- NOTE | 2024-01-29 00:17 | ER ---
Nurse's Notes [facility] Name: Isadora Bettencourt Age: 78 yrs Sex: Female : 1945 Arrival Date: 01/28/2024 Time: 20:02 Bed 8 Private MD: Diagnosis: Abdominal pain Presentation: 01/27 20:04 Chief complaint: EMS states: Pt brought via EMS from home for c/o upper abdominal pain dd2 beginning earlier today. Per EMS pt has Hx of Hiatal hernia. Coronavirus screen: At this time, the client does not indicate any symptoms associated with coronavirus-19. Ebola Screen: No symptoms or risks identified at this time. Initial Sepsis Screen: Does the patient meet any 2 criteria? No. Patient's initial sepsis screen is negative. Does the patient have a suspected source of infection? No. Patient's initial sepsis screen is negative. Risk Assessment: Do you want to hurt yourself or someone else? Patient reports no desire to harm self or others. Onset of symptoms was January 28, 2024. Care prior to arrival: Glucose check: 119. 20:04 Method Of Arrival: EMS: [facility] dd2 20:04 Acuity: FRANDY 3 dd2 Triage Assessment: 20:08 General: Appears in no apparent distress. Behavior is calm, cooperative, appropriate dd2 for age. Pain: Complains of pain in right upper quadrant and left upper quadrant Pain does not radiate. Pain currently is 8 out of 10 on a pain scale. EENT: No deficits noted. No signs and/or symptoms were reported regarding the EENT system. Neuro: No deficits noted. Level of Consciousness is awake, alert, obeys commands, Oriented to person, place, time, situation, Appropriate for age. Cardiovascular: Patient's skin is warm and dry. Respiratory: No deficits noted. Airway is patent Respiratory effort is even, unlabored, Respiratory pattern is regular, symmetrical. GI: Abdomen is non-distended, Bowel sounds present X 4 quads. Abd is soft X 4 quads Abdomen is tender to palpation in epigastric area, right upper quadrant and left upper quadrant. : No deficits noted. No signs and/or symptoms were reported regarding the genitourinary system. Derm: No deficits noted. No signs and/or symptoms reported regarding the dermatologic system. Musculoskeletal: No deficits noted. No signs and/or symptoms reported regarding the musculoskeletal system. Circulation, motion, and sensation intact. Range of motion: intact in all extremities. Historical: - Allergies: 20:08 No Known Allergies; dd2 - PMHx: 20:08 Anxiety; diabetes mellitus; Hypertension; Kidney stones; Pancreatitis; Hiatal hernia dd2 (Pancreatitis); - PSHx: 20:08 Appendectomy; back; Bladder; Cholecystectomy; knee; Total abdominal hysterectomy; wrist;dd2 - Immunization history:: Adult Immunizations up to date. - Infectious Disease History:: Denies. - Social history:: Smoking status: Patient denies any tobacco usage or history of. Screenin:04 [facility] ED Fall Risk Assessment (Adult) History of falling in the last 3 months, dd2 including since admission No falls in past 3 months (0 pts) Confusion or Disorientation No (0 pts) Intoxicated or Sedated No (0 pts) Impaired Gait No (0 pts) Mobility Assist Device Used No (0 pt) Altered Elimination No (0 pt) Score/Fall Risk Level 0 - 2 = Low Risk Oriented to surroundings, Maintained a safe environment, Educated pt \T\ family on fall prevention, incl call for assistance when getting out of bed, Assessed \T\ reinforced patient's understanding of fall precautions, Hourly rounding (assess needs \T\ fall precautionary measures) done. Abuse screen: Denies threats or abuse. Nutritional screening: No deficits noted. Tuberculosis screening: No symptoms or risk factors identified. Assessment: 20:10 Reassessment: SEE TRIAGE FOR FULL ASSESSMENT. dd2 Vital Signs: 20:04 BP 172 / 75 LA Sitting (auto/reg); Pulse 81; Resp 18 S; Temp 97.4(TE); Pulse Ox 98% on ty R/A; Weight 72.57 kg (R); Height 5 ft. 1 in. (R); Pain 10/10; 20:04 BP 190 / 89; Pulse 89; Resp 16; Temp 98.7; Pulse Ox 97% ; dd2 22:17 BP 162 / 72; Pulse 77; Resp 17; Pulse Ox 97% on R/A; dd2 01/28 00:12 BP 138 / 72; Pulse 71; Resp 18; Pulse Ox 95% ; cp4 01/27 20:04 Body Mass Index 30.23 (72.57 kg, 154.94 cm) ty 01/27 20:04 Pain Scale: Adult ty [place] Coma Score: 01/27 20:04 Eye Response: spontaneous(4). Motor Response: obeys commands(6). Verbal Response: dd2 oriented(5). Total: 15. ED Course: 20:03 Patient arrived in ED. dd2 20:04 BENJI LOPEZ, RN is Primary Nurse. dd2 20:04 Patient has correct armband on for positive identification. Bed in low position. Call dd2 light in reach. Side rails up X2. Client placed on continuous cardiac and pulse oximetry monitoring. NIBP monitoring applied. Door closed. Noise minimized. Warm blanket given. Pillow given. Verbal reassurance given. 20:08 Triage completed. dd2 20:08 Lincoln Powell MD is Attending Physician. sp3 20:08 Arm band placed on right wrist. Patient placed in an exam room, on a stretcher, on dd2 pulse oximetry. 21:35 Inserted saline lock: 22 gauge in right forearm, using aseptic technique. Blood kmf collected. Flushed with 10 mL NS. 22:14 CBC with Diff Sent. dd2 22:14 CMP Sent. dd2 22:14 Lipase Sent. dd2 22:14 Urinalysis w/ reflexes Sent. dd2 22:14 No provider procedures requiring assistance completed. Initial lab(s) drawn, by ED dd2 staff, sent to lab. Urine collected: Dobson catheter specimen, cloudy. Patient maintains SpO2 saturation greater than 95% on room air. 23:36 CT Abd/Pelvis - IV Contrast Only In Process Unspecified. EDMS 01/28 00:51 Provided Education on: D/C INSTRUCTIONS. dd2 00:51 IV discontinued, intact, bleeding controlled, No redness/swelling at site. Pressure dd2 dressing applied. Administered Medications: 01/27 22:06 Drug: Ondansetron IVP 4 mg IVP once; over 2 minutes Route: IVP; Site: right forearm; dd2 22:21 Follow up: Response: No adverse reaction dd2 22:06 Drug: NS 0.9% IV 1000 ml IV at 1 bolus Per protocol; to be given as a bolus over 60 dd2 minutes Route: IV; Rate: 1 bolus; Site: right forearm; 22:21 Follow up: Response: No adverse reaction dd2 23:10 Follow up: IV Status: Completed infusion; IV Intake: 1000ml dd2 22:07 Drug: morphine IVP or IV 4 mg IVP once over 4 mins Route: IVP; Infused Over: 4 mins; dd2 Site: right forearm; 22:22 Follow up: Response: No adverse reaction dd2 01/28 00:37 CANCELLED (Physician Discretion): ondansetron 4 mg IVP once; over 2 minutes dd2 00:51 Drug: Ondansetron PO 4 mg PO once Route: PO; dd2 00:52 Follow up: Response: Medication administered at discharge. dd2 Medication: 01/27 20:04 VIS not applicable for this client. dd2 Intake: 23:10 IV: 1000ml; Total: 1000ml. dd2 Outcome: 01/28 00:16 Discharge ordered by . sp3 00:51 Discharged to home via wheelchair, dd2 00:51 Condition: stable 00:51 Discharge instructions given to patient, Instructed on discharge instructions, follow up and referral plans. Demonstrated understanding of instructions, follow-up care, 00:52 Patient left the ED. dd2 Addendum: 02/02/2024 13:41 Addendum: Culture Results: Positive urine culture. taking Cipro, already followed up l l1 with PCP yesterday. States she had her catheter replaced. Will continue follow-up with PCP. Will return to ED for worsening symptoms. Signatures: Dispatcher [employer] Jag Frank, RN RN ll1 Lincoln Powell MD MD sp3 Erica Charles cp4 Carline Limon Tylor ty DAVIS, DIANA, RN RN dd2
--- NOTE | 2024-01-29 00:17 | EDPHYS ---
Physician Documentation [facility] Name: Isadora Bettencourt Age: 78 yrs Sex: Female : 1945 Arrival Date: 01/28/2024 Time: 20:02 Bed 8 Private MD: ED Physician Lincoln Powell HPI: 01/27 20:21 This 78 yrs old Female presents to ER via EMS with complaints of Abdominal Pain. sp3 20:21 78-year-old female with history of diabetes, hypertension, chronic and acute sp3 pancreatitis episodes in the past, hiatal hernia, chronic indwelling Dobson now presents to the ED with chief complaint epigastric abdominal pain with concerns of recurrent pancreatitis. She denies any vomiting, diarrhea, fever, back pain, chest pain, shortness of breath, rash, bleeding or any other signs or symptoms on ROS at this time.. Historical: - Allergies: 20:08 No Known Allergies; dd2 - PMHx: 20:08 Anxiety; diabetes mellitus; Hypertension; Kidney stones; Pancreatitis; Hiatal hernia dd2 (Pancreatitis); - PSHx: 20:08 Appendectomy; back; Bladder; Cholecystectomy; knee; Total abdominal hysterectomy; wrist;dd2 - Immunization history:: Adult Immunizations up to date. - Infectious Disease History:: Denies. - Social history:: Smoking status: Patient denies any tobacco usage or history of. ROS: 20:22 Constitutional: Negative for fever, chills, and weight loss, Eyes: Negative for injury, sp3 pain, redness, and discharge, ENT: Negative for injury, pain, and discharge, Neck: Negative for injury, pain, and swelling, Cardiovascular: Negative for chest pain, palpitations, and edema, Respiratory: Negative for shortness of breath, cough, wheezing, and pleuritic chest pain, Back: Negative for injury and pain, MS/Extremity: Negative for injury and deformity, Skin: Negative for injury, rash, and discoloration, Neuro: Negative for headache, weakness, numbness, tingling, and seizure, Psych: Negative for depression, anxiety, suicide ideation, homicidal ideation, and hallucinations, Allergy/Immunology: Negative for hives, rash, and allergies, Endocrine: Negative for neck swelling, polydipsia, polyuria, polyphagia, and marked weight changes, Hematologic/Lymphatic: Negative for swollen nodes, abnormal bleeding, and unusual bruising, 20:22 All other systems are negative, Exam: 20:23 Constitutional: This is a well developed, well nourished patient who is awake, alert, sp3 and in no acute distress. Head/Face: Normocephalic, atraumatic. Eyes: Pupils equal round and reactive to light, extra-ocular motions intact. Lids and lashes normal. Conjunctiva and sclera are non-icteric and not injected. Cornea within normal limits. Periorbital areas with no swelling, redness, or edema. Neck: Trachea midline, no thyromegaly or masses palpated, and no cervical lymphadenopathy. Supple, full range of motion without nuchal rigidity, or vertebral point tenderness. No Meningismus. Chest/axilla: Normal chest wall appearance and motion. Nontender with no deformity. No lesions are appreciated. Cardiovascular: Regular rate and rhythm with a normal S1 and S2. No gallops, murmurs, or rubs. Normal PMI, no JVD. No pulse deficits. Respiratory: Lungs have equal breath sounds bilaterally, clear to auscultation and percussion. No rales, rhonchi or wheezes noted. No increased work of breathing, no retractions or nasal flaring. Back: No spinal tenderness. No costovertebral tenderness. Full range of motion. Skin: Warm, dry with normal turgor. Normal color with no rashes, no lesions, and no evidence of cellulitis. MS/ Extremity: Pulses equal, no cyanosis. Neurovascular intact. Full, normal range of motion. Neuro: Awake and alert, GCS 15, oriented to person, place, time, and situation. Cranial nerves II-XII grossly intact. Motor strength 5/5 in all extremities. Sensory grossly intact. Cerebellar exam normal. Normal gait. Psych: Awake, alert, with orientation to person, place and time. Behavior, mood, and affect are within normal limits. 20:23 Abdomen/GI: Epigastric pain to palpation without peritoneal signs, rebound or guarding., Vital Signs: 20:04 BP 172 / 75 LA Sitting (auto/reg); Pulse 81; Resp 18 S; Temp 97.4(TE); Pulse Ox 98% on ty R/A; Weight 72.57 kg (R); Height 5 ft. 1 in. (R); Pain 10/10; 20:04 BP 190 / 89; Pulse 89; Resp 16; Temp 98.7; Pulse Ox 97% ; dd2 22:17 BP 162 / 72; Pulse 77; Resp 17; Pulse Ox 97% on R/A; dd2 01/28 00:12 BP 138 / 72; Pulse 71; Resp 18; Pulse Ox 95% ; cp4 01/27 20:04 Body Mass Index 30.23 (72.57 kg, 154.94 cm) ty 01/27 20:04 Pain Scale: Adult ty [place] Coma Score: 01/27 20:04 Eye Response: spontaneous(4). Motor Response: obeys commands(6). Verbal Response: dd2 oriented(5). Total: 15. MDM: 20:08 Medical Screening Exam initiated sp3 : Data reviewed: vital signs, nurses notes, old medical records, lab test result(s), sp3 radiologic studies. ED course: 78-year-old female with a history of chronic pancreatitis now with epigastric abdominal pain radiating toward mid abdomen without peritoneal signs, rebound or guarding. Differential diagnosis includes pancreatitis, biliary pathology, gastritis, hiatal hernia, other functional abdominal pain, UTI, pyelonephritis, among others. I am not highly suspicious for acute coronary syndrome, thoracic pathology, vascular pathology or any other critical process at this time. Workup will include CT scan of the abdomen pelvis, general labs and urine analysis. Morphine and Zofran and IV fluids for symptomatic control. Disposition pending workup and patient course.. 01/28 00:16 ED course: Patient states she is already on antibiotics for UTI. No other sp3 intra-abdominal abnormalities have been found. Vital signs are normal. We will safely discharge patient home at this time. CT demonstrates hiatal hernia and constipation without other abnormality.. 01/27 20:21 Order name: CBC with Diff; Complete Time: 00:34 sp3 01/27 20:21 Order name: CMP; Complete Time: 00:11 sp3 01/27 20:21 Order name: Lipase; Complete Time: 00:11 sp3 01/27 20:21 Order name: Urinalysis w/ reflexes; Complete Time: 00:11 sp3 01/27 20:21 Order name: Lactate w/ 2H reflex if indic.; Complete Time: 00:11 sp3 01/27 22:44 Order name: Urine Culture EDMS 01/27 20:21 Order name: CT Abd/Pelvis - IV Contrast Only sp3 01/27 20:21 Order name: IV Saline Lock; Complete Time: 22:13 sp3 01/27 20:21 Order name: Labs collected and sent; Complete Time: 22:13 sp3 Administered Medications: 01/27 22:06 Drug: Ondansetron IVP 4 mg IVP once; over 2 minutes Route: IVP; Site: right forearm; dd2 22:21 Follow up: Response: No adverse reaction dd2 22:06 Drug: NS 0.9% IV 1000 ml IV at 1 bolus Per protocol; to be given as a bolus over 60 dd2 minutes Route: IV; Rate: 1 bolus; Site: right forearm; 22:21 Follow up: Response: No adverse reaction dd2 23:10 Follow up: IV Status: Completed infusion; IV Intake: 1000ml dd2 22:07 Drug: morphine IVP or IV 4 mg IVP once over 4 mins Route: IVP; Infused Over: 4 mins; dd2 Site: right forearm; 22:22 Follow up: Response: No adverse reaction dd2 01/28 00:37 CANCELLED (Physician Discretion): ondansetron 4 mg IVP once; over 2 minutes dd2 00:51 Drug: Ondansetron PO 4 mg PO once Route: PO; dd2 00:52 Follow up: Response: Medication administered at discharge. dd2 Disposition Summary: 01/29/24 00:16 Discharge Ordered Notes: Location: Home sp3 Condition: Stable sp3 Diagnosis - Abdominal pain sp3 Followup: sp3 - With: Private Physician - When: Upon discharge from the Emergency Department - Reason: Continuance of care Discharge Instructions: - Discharge Summary Sheet sp3 - Abdominal Pain, Adult sp3 Forms: - Medication Reconciliation Form sp3 - Antibiotic Education sp3 - Prescription Opioid Use sp3 - Patient Portal Instructions sp3 - Leadership Thank You Letter sp3 Signatures: Dispatcher [employer] Lincoln Lion MD MD sp3 BENJI LOPEZ RN RN dd2 Corrections: (The following items were deleted from the chart) 00:37 00:16 Ondansetron IVP 4 mg IVP once; over 2 minutes ordered. sp3 dd2
--- NOTE | 2024-01-29 00:28 | RAD REPORT ---
Clinical Indication: IV ONLY Bed Name: 8. Abdominal pain Comparison: January 08, 2024. TECHNIQUE: Helical imaging was performed from diaphragm through the pelvis after IV contrast administ ration with multiplanar reformations obtained. Coronal and sagittal reformats were performed and provided as separate series. IV CONTRAST: IV contrast dose was not provided GI CONTRAST: GI contrast was not administered CT Radiation Dose: DLP = 865.5 mGy-cm All CT scans at this location are performed using dose optimization techniques as appropriate to perf orm the study. Radiation dose reduction technique was utilized including one or more of the following: Automated exp osure control, adjustment of the mA and/or kV according to patient size and use of iterative reconstruction technique. FINDINGS: LOWER CHEST: The visualized lung bases are clear. LIVER: Pneumobilia is noted bilaterally. The liver is otherwise unremarkable. GALLBLADDER: The gallbladder is contracted and can be seen on image 20 of series 201. INTRAHEPATIC BILE DUCT AND EXTRAHEPATIC BILE DUCT: Unremarkable. PANCREAS: Unremarkable. SPLEEN: Unremarkable. ADRENALS: Unremarkable. KIDNEYS AND URETERS: The renal contours are normal. Mild bilateral pelviectasis is noted. This is unc hanged compared to January 08, 2024.. No calcified renal stones are noted. No surrounding fat stranding is noted. Interval resolution of left urothelial prominence. STOMACH: Evaluation of the stomach and bowel is limited due to lack of oral contrast. No gross abno rmalities of the stomach are noted. Moderate hiatal hernia is noted. Gastroesophageal varices are noted in the hiatal hernia. Clinical correlation is recommended. BOWEL: The small bowel loops in the abdomen and pelvis appear unremarkable. Moderate amount of stool is noted throughout the colon. Scattered diverticuli are noted in the sigmoid colon. No surrounding inflammatory changes are seen to suggest acute diverticulitis. APPENDIX: Not well seen on the exam. PERITONEUM AND RETROPERITONEUM: No ascites or free air. No loculated fluid collection is noted. The re is no aortic aneurysm or dissection. Mild nonspecific fat stranding is noted at the root of the mesentery. This can be seen on image 35 of series 201. PELVIS: The patient is status post hysterectomy. BLADDER: The urinary bladder is decompressed by Dobson catheter. LYMPH NODES: Unremarkable. OSSEOUS STRUCTURES: No acute abnormality seen. Levoconvex rotoscoliosis is noted with compensatory de generative changes. SOFT TISSUES: Unremarkable. IMPRESSION: 1. Diverticulosis without CT evidence of acute diverticulitis. 2. Moderate hiatal hernia with gastroesophageal varices. Clinical correlation is recommended. 3. Moderate amount of stool is consistent with constipation. Electronically signed by: Corey Eng MD 01/29/2024 12:04 AM [facility] Due to temporary technical issues with the PACS/[employer] reporting system, reports are being primo d by the in-house radiologist without review as a courtesy to ensure prompt reporting the interpreting radiologist is fully responsible for the content of the report. Transcribed Date/Time: 01/29/2024 12:28 AM
[2024-01-29] MEDS ORDERED: ONDANSETRON 4 MG (ODT) TAB ONE (00:40)
[2024-01-29 04:44] VITALS: TEMP 97.4
[2024-01-29 04:55] VITALS: BP 138/72; O2SAT 95
== END 2024-01-29 00:52 | disposition home or self-care (01) ==
LOC: ER 20:02
DX: R10.13 Epigastric pain (principal); E11.9 Type 2 diabetes mellitus without complications; I10 Essential (primary) hypertension; Z87.442 Personal history of urinary calculi
CPT/HCPCS: 87088; 85025; 81001; 87086; 36415; 83605; 87077; 87186; 83690; 80053; 74177; Q9967; Q0162; J2405; J7030

== ENCOUNTER 2024-05-06 14:58 | Inpatient (IN) | payer OTHER ==
[2024-05-06] MEDS ORDERED: droPERidol 5 MG/2 ML VIAL ONE (15:33)
[2024-05-06] MEDS ORDERED: MORPHINE 4 MG/ML SYR ONE ×2 (15:34→18:27)
[2024-05-06 16:00] LABS: Absolute Basophils 0.1 K/uL (0-0.5); Absolute Eosinophils 0.1 K/uL (0-0.5); Absolute Lymphocytes (CBC) 1.7 K/uL (0.7-4.9); Absolute Monocytes 1.1 K/uL (0.1-1.3); Absolute Neutrophil 10.1 K/uL (1.8-8.0); Basophils % 0.7 % (0-1.3); Eosinophils % 0.8 % (0-4.4); Hematocrit 38.9 % (36.0-45.0); Hemoglobin 13.2 g/dL (12.0-15.0); Lymphocytes % 12.7 % (15.3-44.8); MCH 28.1 pg (27.0-35.0); MCV 82.7 fL (80-100); MPV 8.7 fL (7.6-11.3); Monocytes % 8.7 % (3.3-12.3); Neutrophils % 77.1 % (41.7-73.7); Platelets 195 thou/uL (152-406); Red Cell Distribution Width 14.4 % (12.1-15.2)
[2024-05-06 16:11] LABS: Specific Gravity 1.015 (1.005-1.030); Urine Bacteria <20 /HPF (<20); Urine Bilirubin NEGATIVE (Negative); Urine Blood Negative (Negative); Urine Clarity Extremely Turbid (Clear); Urine Color Light-Yellow (Yellow); Urine Crystals Unidentified Few /HPF (None Seen); Urine Culture Reflex Order REFLEXED; Urine Glucose 3+ (Negative); Urine Ketones NEGATIVE (Negative); Urine Micro Reflex YN NO BILL MICROSCOPIC; Urine Mucus Slight /HPF (None Seen); Urine Nitrite NEGATIVE (Negative); Urine Protein TRACE (Negative); Urine RBC 21-50 /HPF (None Seen); Urine Urobilinogen Normal (Normal); Urine WBC 20-50 /HPF (<5); Urine WBC Clump Rare /HPF (None Seen); Urine Yeast (Budding) Many /HPF (None Seen); Urine pH 7.5 (5.0-7.0)
[2024-05-06 16:28] LABS: ALT/SGPT 19 U/L (13-56); AST/SGOT 14 U/L (15-37); Albumin 3.1 g/dL (3.4-5.0); Albumin/Globulin Ratio 0.7 (1.1-1.8); Alkaline Phosphatase 105 U/L (45-117); BUN Blood Urea Nitrogen 14 mg/dL (7-18); Bicarbonate 25 mEq/L (21-32); Bilirubin Total 0.4 mg/dL (0.2-1.0); Globulin 4.6 g/dL (2.3-3.5); Glomerular Filtration Rate 69 ml/min (=/>90); Glucose Level 254 mg/dL (74-106); Protein, Total 7.7 g/dL (6.4-8.2); Sodium Level 134 mEq/L (136-145); Troponin High Sensitivity 6.6 pg/mL (<58.9)
[2024-05-06 16:29] LABS: Lipase > 5000 U/L (13-75)
--- NOTE | 2024-05-06 17:21 | RAD REPORT ---
EXAMINATION: CT ABDOMEN AND PELVIS WITH CONTRAST CLINICAL INDICATION: Female, 78 years old.ABD PAIN TECHNIQUE: CT abdomen and pelvis was performed, after the administration of IV contrast, [facility]. Axial, sagittal and coronal reconstructions were obtained. One or more of the following dose reduction techniques were used: Automated exposure control, adjustment of the mA and/o r kV according to patient size, and/or iterative reconstruction. Unless otherwise specified, incidental findings do not require dedicated imaging follow-up. [id number]. COMPARISON: 01/28/2024 FINDINGS: LOWER CHEST: No acute process identified.No significant pericardial effusion. Coronary artery calcifi cations present.Moderate hiatal hernia UPPER GI: Thickening present at the first second portions of the duodenum. LIVER: Hepatic steatosis, but otherwise unremarkable. Pneumobilia is a chronic finding. GALLBLADDER/BILE DUCTS: Cholecystectomy. Moderate extra-hepatic biliary ductal dilatation is likely r elated to the post-cholecystectomy state. Consider correlating with LFT's.? PANCREAS: Edema around the head, neck, and uncinate of the pancreas. Pancreatic body and tail are atr ophic. No pancreatic duct dilatation. SPLEEN: Mild splenomegaly. ADRENALS: No adrenal masses. KIDNEYS AND URETERS: No hydronephrosis.No suspicious renal mass.No renal calculi. ABDOMINAL AORTA AND OTHER VESSELS: Mild atherosclerotic changes. PERITONEUM: No abnormal free fluid. No free air. LYMPH NODES: No pathologic lymphadenopathy. ABDOMINAL WALL: Unremarkable SMALL BOWEL/COLON: Small bowel has normal course and caliber. No colonic wall thickening or pericolon ic inflammatory changes. Moderate diverticulosis without diverticulitis. URINARY BLADDER: Decompressed, not well assessed. Dobson catheter present. The wall does appear thicke chad. REPRODUCTIVE ORGANS: Uterus surgically absent. No adnexal abnormality. MUSCULOSKELETAL: Multilevel degenerative changes in the spine. No acute fracture. Grade 1 anterolisth esis of L4 and L5. ADDITIONAL FINDINGS: None. IMPRESSION: Stranding is present around the head, neck, and uncinate of the pancreas suspicious for acute pancrea titis. Presumably reactive thickening at the duodenum. Similar extrahepatic biliary duct dilatation and pneumobilia.
--- NOTE | 2024-05-06 18:06 | ER ---
Nurse's Notes [facility]inder Name: Isadora Bettencourt Age: 78 yrs Sex: Female : 1945 Arrival Date: 05/06/2024 Time: 14:58 Bed 8 Private MD: Diagnosis: Acute pancreatitis without necrosis or infection, unspecified Presentation: 05/06 15:00 Chief complaint: EMS states: mid abd pain X 1 hour , hx of pancreatitis. Coronavirus iw screen: At this time, the client does not indicate any symptoms associated with coronavirus-19. Ebola Screen: No symptoms or risks identified at this time. Initial Sepsis Screen: Does the patient meet any 2 criteria? No. Patient's initial sepsis screen is negative. Does the patient have a suspected source of infection? No. Patient's initial sepsis screen is negative. Risk Assessment: Do you want to hurt yourself or someone else? Patient reports no desire to harm self or others. Onset of symptoms was May 06, 2024. 15:00 Method Of Arrival: EMS: [facility] iw 15:00 Acuity: FRANDY 3 iw Historical: - Allergies: 15:05 No Known Allergies; iw - PMHx: 15:02 Anxiety; diabetes mellitus; hiatal hernia; Hypertension; Kidney stones; Pancreatitis; iw - PSHx: 15:02 Total abdominal hysterectomy; knee; Cholecystectomy; Bladder; back; Appendectomy; wrist;iw - Immunization history:: Adult Immunizations up to date. - Infectious Disease History:: Denies. - Social history:: Smoking status: Patient/guardian denies using tobacco, the patient reports quitting approximately 23 years ago. Screenin:10 Abuse screen: Denies threats or abuse. Nutritional screening: No deficits noted. aa5 Tuberculosis screening: No symptoms or risk factors identified. 15:10 [facility] ED Fall Risk Assessment (Adult) History of falling in the last 3 months, aa5 including since admission No falls in past 3 months (0 pts) Confusion or Disorientation No (0 pts) Intoxicated or Sedated No (0 pts) Impaired Gait Yes (1 pt) Mobility Assist Device Used Yes (1 pt) Altered Elimination Yes (1 pt) Score/Fall Risk Level 3 or more points = High Risk Oriented to surroundings, Maintained a safe environment, Educated pt \T\ family on fall prevention, incl call for assistance when getting out of bed. Assessment: 15:10 General: Appears comfortable, Behavior is calm, cooperative. Pain: Complains of pain in aa5 mid abdomen Pain currently is 8 out of 10 on a pain scale. Quality of pain is described as sharp, Is continuous. Neuro: Level of Consciousness is awake, alert, obeys commands, Oriented to person, place, time, situation. Cardiovascular: Patient's skin is warm and dry. Respiratory: Airway is patent Respiratory effort is even, unlabored, Respiratory pattern is regular, symmetrical. GI: Abdomen is round non-distended, Bowel sounds present X 4 quads. Abd is soft and non tender X 4 quads. Reports nausea. : Dobson in place to gravity drainage. EENT: No signs and/or symptoms were reported regarding the EENT system. Derm: Skin is pink, warm \T\ dry. Musculoskeletal: ambulatory with walker. 16:00 Reassessment: Mica Welch RN at bedside attempting IV access. . aa5 16:45 Reassessment: Patient is alert, oriented x 3, equal unlabored respirations, skin aa5 warm/dry/pink. 16:49 Reassessment: PT to CT scan . aa5 17:35 Reassessment: Patient is alert, oriented x 3, equal unlabored respirations, skin aa5 warm/dry/pink. Patient states feeling better. Patient states symptoms have improved. Pain: Pain currently is 5 out of 10 on a pain scale. 19:28 Reassessment: Patient appears in no apparent distress at this time. Patient and/or bm8 family updated on plan of care and expected duration. Pain level reassessed. Patient is alert, oriented x 3, equal unlabored respirations, skin warm/dry/pink. Patient states feeling better. Patient states symptoms have improved. Pain: Complains of pain in abdomen Pain currently is 4 out of 10 on a pain scale. GI: Reports nausea. Vital Signs: 15:00 BP 198 / 99; Pulse 92; Resp 16; Temp 98.4; Pulse Ox 97% on R/A; Weight 74.84 kg; Height iw 5 ft. 1 in. ; Pain 10/10; 17:35 BP 157 / 91; Pulse 85; Resp 14 S; Pulse Ox 95% ; aa5 18:30 BP 168 / 89; Pulse 78; Resp 16 S; Pulse Ox 95% on R/A; aa5 18:30 Pulse Ox 98% on 2 lpm NC; aa5 19:28 BP 177 / 90; Pulse 78; Resp 18; Temp 98.8; Pulse Ox 100% on 3 lpm NC; Pain 4/10; bm8 15:00 Body Mass Index 31.18 (74.84 kg, 154.94 cm) iw 15:00 Pain Scale: Adult iw 19:28 Pain Scale: Adult bm8 Hematite Coma Score: 19:28 Eye Response: spontaneous(4). Motor Response: obeys commands(6). Verbal Response: bm8 oriented(5). Total: 15. ED Course: 15:00 Patient arrived in ED. iw 15:02 Triage completed. iw 15:03 Ortega Cotton MD is Attending Physician. ec2 15:05 Arm band placed on. iw 15:10 Patient has correct armband on for positive identification. Bed in low position. Call aa5 light in reach. Side rails up X2. Pulse ox on. NIBP on. 15:30 Noemi Bonner, SHARMAINE is Primary Nurse. aa5 15:40 Missed attempt(s): 22 gauge in left forearm. Bleeding controlled, band aid applied, aa5 catheter tip intact. 15:45 Missed attempt(s): 22 gauge in right upper arm. Bleeding controlled, band aid applied, aa5 catheter tip intact. 15:55 Initial lab(s) drawn, by me, sent to lab. aa5 15:55 Missed attempt(s): 22 gauge in right forearm. Bleeding controlled, band aid applied, aa5 catheter tip intact. 16:30 Accessed peripheral vein via ultrasound, utilizing dynamic ultrasound technique using ss 20G Nexia IV catheter ,sterile technique, per hospital protocol. Clean \T\ dry. Good blood return. Flushes easily. R AC. 17:03 CT Abd/Pelvis - IV Contrast Only In Process Unspecified. EDMS 18:05 Kale Mosher is Hospitalizing Provider. ec2 19:03 Report given to SHARMAINE Watters and SHARMAINE Reese. aa5 19:28 Provided Education on: need for admission. bm8 19:28 No provider procedures requiring assistance completed. Patient admitted, IV remains in bm8 place. Administered Medications: 16:45 Drug: Droperidol IVP 1.25 mg IVP once Route: IVP; Site: right antecubital; aa5 17:00 Follow up: Response: No adverse reaction aa5 16:47 Drug: morphine IVP or IV 4 mg IVP once over 4 mins Route: IVP; Infused Over: 4 mins; aa5 Site: right antecubital; 17:00 Follow up: Response: No adverse reaction aa5 18:35 Drug: morphine IVP or IV 4 mg IVP once over 4 mins Route: IVP; Infused Over: 4 mins; aa5 Site: right antecubital; 18:40 Follow up: Response: No adverse reaction aa5 18:35 Drug: NS 0.9% IV 1000 ml IV at 1 bolus Per protocol; to be given as a bolus over 60 aa5 minutes Route: IV; Rate: 1 bolus; Site: right antecubital; 19:29 Follow up: Response: No adverse reaction; IV Status: Completed infusion bm8 Medication: 16:18 VIS not applicable for this client. aa5 Outcome: 18:05 Decision to Hospitalize by Provider. ec2 19:28 Admitted to Med/surg accompanied by nurse, accompanied by tech, via stretcher, room bm8 212, with oxygen, with chart, 19:30 Condition: stable bm8 19:30 Instructed on follow up and referral plans. the need for admit, Demonstrated understanding of instructions, follow-up care, medications, 20:01 Patient left the ED. bm8 Signatures: Dispatcher [employer] Maddy May, RN SHARMAINE Noemi Bonner RN RN aa5 Mica Welch RN RN Ortega Cotton MD MD ec2 Hugh Stewart, RN RN bm8 Corrections: (The following items were deleted from the chart) 16:00 15:50 Missed attempt(s): 22 gauge in right forearm. Bleeding controlled, band aid aa5 applied, catheter tip intact. aa5 16:30 16:30 Accessed peripheral vein via ultrasound, utilizing dynamic ultrasound technique ss using 20G Nexia IV catheter ,sterile technique, per hospital protocol. Clean \T\ dry. Good blood return. Flushes easily. ss 19:31 19:28 Admitted to Med/surg bm8 bm8
--- NOTE | 2024-05-06 18:06 | EDPHYS ---
Physician Documentation [facility] Name: Isadora Bettencourt Age: 78 yrs Sex: Female : 1945 Arrival Date: 05/06/2024 Time: 14:58 Bed 8 Private MD: ED Physician Ortega Cotton HPI: 05/06 15:33 This 78 yrs old Female presents to ER via EMS with complaints of Abdominal ec2 Pain. 15:33 Patient arrives today with complaints of abdominal pain. Patient complained of upper ec2 abdominal pain that started just prior to arrival. Reports some nausea as well. Patient reports no issues with bowel movements, no urinary complaints. Reports history of pancreatitis.. Historical: - Allergies: 15:05 No Known Allergies; iw - PMHx: 15:02 Anxiety; diabetes mellitus; hiatal hernia; Hypertension; Kidney stones; Pancreatitis; iw - PSHx: 15:02 Total abdominal hysterectomy; knee; Cholecystectomy; Bladder; back; Appendectomy; wrist;iw - Immunization history:: Adult Immunizations up to date. - Infectious Disease History:: Denies. - Social history:: Smoking status: Patient/guardian denies using tobacco, the patient reports quitting approximately 23 years ago. ROS: 15:34 Constitutional: as per hpi ec2 Exam: 15:34 Constitutional: GEN: NAD Head: atraumatic Eyes: EOMI Ears: External ears are ec2 normal. CV: regular rate LUNGS: no respiratory distress ABD: Soft, generally tender SKIN: no evidence of rashes MSK: no evidence of trauma Vital Signs: 15:00 BP 198 / 99; Pulse 92; Resp 16; Temp 98.4; Pulse Ox 97% on R/A; Weight 74.84 kg; Height iw 5 ft. 1 in. ; Pain 10/10; 17:35 BP 157 / 91; Pulse 85; Resp 14 S; Pulse Ox 95% ; aa5 18:30 BP 168 / 89; Pulse 78; Resp 16 S; Pulse Ox 95% on R/A; aa5 18:30 Pulse Ox 98% on 2 lpm NC; aa5 19:28 BP 177 / 90; Pulse 78; Resp 18; Temp 98.8; Pulse Ox 100% on 3 lpm NC; Pain 4/10; bm8 15:00 Body Mass Index 31.18 (74.84 kg, 154.94 cm) iw 15:00 Pain Scale: Adult iw 19:28 Pain Scale: Adult bm8 Darcie Coma Score: 19:28 Eye Response: spontaneous(4). Motor Response: obeys commands(6). Verbal Response: bm8 oriented(5). Total: 15. MDM: 15:13 Medical Screening Exam initiated ec2 15:34 Data reviewed: vital signs, nurses notes. ED course: Patient arrives today with concern ec2 for upper abdominal pain. Examination yields abdominal findings as above. Will obtain lab work, CT imaging and treat the patient's symptoms. EKG obtained, independently reviewed and interpreted by me, shows normal sinus rhythm, rate of 90, no acute ST segment elevations, intervals are nonactionable.. 17:26 ED course: CT imaging shows pancreatitis. Shows unchanged pneumobilia compared to ec2 previous studies in December as well. Patient does meet SIRS right ear however no evidence of infection, can see similar systemic inflammatory response of pancreatitis. Will forego antibiotic therapy at this time. Will admit for pain control, pancreatitis.. 05/06 15:15 Order name: CBC with Diff ec2 05/06 15:15 Order name: CMP; Complete Time: 16:52 ec2 05/06 15:15 Order name: Lipase; Complete Time: 16:52 ec2 05/06 15:15 Order name: UAM; Complete Time: 16:52 ec2 05/06 15:59 Order name: Troponin High Sensitivity; Complete Time: 16:52 EDMS 05/06 16:28 Order name: Urine Culture EDMS 05/06 19:19 Order name: Urinalysis w/ reflexes EDMS 05/06 19:20 Order name: CBC with Automated Diff EDMS 05/06 19:20 Order name: CBC with Automated Diff EDMS 05/06 19:20 Order name: Comprehensive Metabolic Panel EDMS 05/06 19:20 Order name: Comprehensive Metabolic Panel EDMS 05/06 19:20 Order name: Lipase EDMS 05/06 19:20 Order name: Lipase EDMS 05/06 19:20 Order name: Lipase EDMS 05/06 19:20 Order name: Lipase EDMS 05/06 19:20 Order name: Magnesium EDMS 05/06 19:20 Order name: Magnesium EDMS 05/06 19:20 Order name: Phosphorus EDMS 05/06 19:20 Order name: Phosphorus EDMS 05/06 19:21 Order name: Lipid Profile [facility] 05/06 19:35 Order name: Blood Culture [facility] 05/06 15:18 Order name: CT Abd/Pelvis - IV Contrast Only; Complete Time: 17:23 ec2 05/06 15:15 Order name: IV Saline Lock; Complete Time: 16:30 ec2 05/06 15:15 Order name: Labs collected and sent; Complete Time: 15:58 ec2 05/06 15:18 Order name: EKG - Nurse/Tech; Complete Time: 15:30 ec2 Administered Medications: 16:45 Drug: Droperidol IVP 1.25 mg IVP once Route: IVP; Site: right antecubital; aa5 17:00 Follow up: Response: No adverse reaction aa5 16:47 Drug: morphine IVP or IV 4 mg IVP once over 4 mins Route: IVP; Infused Over: 4 mins; aa5 Site: right antecubital; 17:00 Follow up: Response: No adverse reaction aa5 18:35 Drug: morphine IVP or IV 4 mg IVP once over 4 mins Route: IVP; Infused Over: 4 mins; aa5 Site: right antecubital; 18:40 Follow up: Response: No adverse reaction aa5 18:35 Drug: NS 0.9% IV 1000 ml IV at 1 bolus Per protocol; to be given as a bolus over 60 aa5 minutes Route: IV; Rate: 1 bolus; Site: right antecubital; 19:29 Follow up: Response: No adverse reaction; IV Status: Completed infusion bm8 Disposition Summary: 05/06/24 18:05 Hospitalization Ordered Notes: Hospitalization Status: Inpatient Admission ec2 Provider: Kale Mosher ec2 Location: Telemetry/[facility] (Inpatient) ec2 Condition: Stable ec2 Problem: new ec2 Symptoms: have improved ec2 Bed/Room Type: Standard ec2 Room Assignment: [facility](05/06/24 19:19) Diagnosis - Acute pancreatitis without necrosis or infection, unspecified ec2 Forms: - Medication Reconciliation Form ec2 - SBAR form ec2 - Leadership Thank You Letter ec2 Signatures: Dispatcher [employer] Maddy May RN RN Noemi Bonner RN RN aa5 Ortega Cotton MD MD ec2 Kenna Urbano Brad RN bm8 Corrections: (The following items were deleted from the chart) 15:58 15:18 Troponin High Sensitivity+C.ASIM.MARISOL ordered. EDMS EDMS 19:19 18:05 ec2
[2024-05-06] MEDS ORDERED: NA CHLORIDE 0.9% 1,000 ML ONE (18:27)
[2024-05-06] MEDS ORDERED: ACETAMINOPHEN 325 MG TABLET PO PRN (19:14)
--- NOTE | 2024-05-06 19:27 | P.HP ---
Certification for Inpatient Patient admitted to: Inpatient With expected LOS: >2 Midnights Practitioner: I am a practitioner with admitting privileges, knowledge of patient current condition, hospital course, and medical plan of care. Services: Services provided to patient in accordance with Admission requirements found in Title 42 Section 412.3 of the Code of Federal Regulations Patient History Date of Service: 05/06/24 Reason for admission: Abdominal pain History of Present Illness: 78-year-old woman with a history of recurrent pancreatitis and recurrent UTI, history of [id number] diabetes presented to the emergency department with a complaint of sudden onset abdominal pain this afternoon, associated nausea, no vomiting. Patient denied any diarrhea. Last bowel movement was this morning and last meal was lunch today. Patient denied any fever. Patient rated her abdominal pain as 8/10, no relieving factors, no associated bloating. She was evaluated in the ED, and lipase level noted to be elevated to greater than 5000, CT abdomen pelvis demonstrated pancreatic stranding. UA obtained in the ED suggest the presence of UTI. Patient states she is on chronic antibiotics for UTI prophylaxis. Patient admitted for further management. Allergies No Known Allergies Allergy (Verified 03/02/23 13:06) Home Medications: Metformin HCl 1,000 mg PO BID 02/24/23 Amlodipine [Norvasc*] 5 mg PO DAILY 30 Days #30 tab 07/02/23 lisinopriL [Prinivil*] 5 mg PO DAILY 30 Days #30 tab 07/02/23 Atorvastatin Calcium 40 mg PO BEDTIME 12/14/23 Solifenacin [Vesicare*] 10 mg PO DAILY 12/14/23 Hydrocodone 5/APAP 325 [[place]antador 5/325*] 1 tab PO Q8H PRN #10 tab 12/18/23 Pantoprazole [Protonix Tab*] 40 mg PO BID #44 tab 12/18/23 - Past Medical/Surgical History Diabetic: Yes -: kidney stones -: Gastroesophageal reflux disease w Hiatal hernia -: Esophageal spasm -: Attention deficit disorder -: Hypertension -: Depression with anxiety -: Hyperlipidemia -: Chronic pain -: Fatty liver, nonalcoholic -: Urinary incontinence/Nephrolithiasis -: Recurrent UTI -: Hysterectomy -: Cholecystectomy -: Appendectomy -: back surgery -: knee surgery -: foot surgery -: EGD/ERCP -: Cardiac catheterization, no stent Psychosocial/ Personal History: Patient lives at home alone - Family History Father -: Diabetes, Cancer Notes: Type 2 Mother -: Hypertension, Diabetes, Other (see notes) Notes: Hypoglycemia Sister Notes: epilepsy - Social History Alcohol use: No CD- Drugs: No Caffeine use: No Review of Systems Other: Patient denied any chest pain, she denied any shortness of breath, she denied any wheezing or cough, or orthopnea. She denied any headache, no reported confusion. Except as documented, all other systems reviewed and negative. Physical Examination - Physical Exam General: Alert, In no apparent distress, Obese HEENT: Atraumatic, Normocephalic, Mucous membr. moist/pink, Sclerae nonicteric Neck: Supple, JVD not distended Respiratory: Clear to auscultation bilaterally, Normal air movement Cardiovascular: No edema, Regular rate/rhythm, Normal S1 S2, No murmurs Capillary refill: <2 Seconds Gastrointestinal: Normal bowel sounds, Soft and benign, Other (Protuberant abdomen), Tenderness (Epigastrium) Musculoskeletal: No swelling, No erythema, No tenderness Integumentary: No rashes, No erythema, No cyanosis Neurological: Normal speech, Normal strength at 5/5 x4 extr, Cranial nerves 3-12 intact Lymphatics: No axilla or inguinal lymphadenopathy - Studies Laboratory Data (last 24 hrs) 05/06/24 05/06/24 15:53 15:53 WBC 13.10 H Hgb 13.2 Hct 38.9 Plt Count 195 Sodium 134 L Potassium 4.0 BUN 14 Creatinine 0.87 Glucose 254 H Total Bilirubin 0.4 AST 14 L ALT 19 Alkaline Phosphatase 105 Lipase > 5000 H Assessment and Plan - Problems (Diagnosis) (1) History of ESBL E. coli infection Current Visit: Yes Status: Acute (2) Acute on chronic pancreatitis Current Visit: No Status: Acute (3) Chronic pain Onset Date: 10/18/15 Current Visit: No Status: Acute (4) Detrusor instability Current Visit: No Status: Acute (5) Recurrent UTI (urinary tract infection) Current Visit: No Status: Acute (6) Diabetes mellitus type 2 in obese Current Visit: No Status: Chronic - Plan Acute on chronic pancreatitis Pneumobilia Dilated CBD Pneumobilia appears chronic compared to prior CT scan in December 2023. CBD dilatation likely related to history of cholecystectomy. Admit patient to the medical floor Supportive measures with IV fluids, analgesics. Keep n.p.o. overnight Monitor lipase level. Check lipid panel Trial of clear liquid diet if lipase level trend down in a.m. Empiric IV meropenem. Serial abdominal examination. Recurrent UTI History of ESBL infection UA suggested presence of UTI. Associated leukocytosis Start IV meropenem Follow urine culture. Obtain blood culture. Diabetes mellitus type 2 Hold metformin Insulin sliding scale for glucose management. Chronic pain syndrome Patient is on morphine as needed IV Resume home dose Mantador. DVT prophylaxis: Lovenox. Advanced directive: Full code - Advance Directives Does patient have a Living Will: No Does patient have a Durable POA for Healthcare: No
[2024-05-06] MEDS: PIPER TAZO 3.375 GM in NA CHLORIDE 0.9% 100 ML IV ONE (19:30)
[2024-05-06] MEDS: D5 0.45 NS 1,000 ML IV SCH (20:40)
[2024-05-06] MEDS: ONDANSETRON 4 MG/2 ML VIAL IV PRN (21:00)
[2024-05-06] MEDS: Meropenem 1,000 MG in NA CHLORIDE 0.9% 100 ML IV SCH (22:06)
[2024-05-06 23:40] VITALS: BMI 31.1
[2024-05-07] MEDS: PIPER TAZO 3.375 GM in NA CHLORIDE 0.9% 100 ML IV SCH (01:02)
[2024-05-07] MEDS: MORPHINE 2 MG/ML SYR IV PRN (01:08)
[2024-05-07] MEDS: INSULIN REGULAR (HUMAN) 100 UNIT/ML SQ SCH (06:11)
[2024-05-07] MEDS: FLU (Fluarix Triv) TS24-25(6MOS UP)/PF 45 MCG/0.5 ML Syringe IM ONE (08:00)
[2024-05-07] MEDS: ENOXAPARIN 40 MG/0.4 ML SQ SCH (08:05)
[2024-05-07 08:12] LABS: Absolute Eosinophils 0.1 K/uL (0-0.5); Absolute Lymphocytes (CBC) 1.4 K/uL (0.7-4.9); Absolute Monocytes 0.5 K/uL (0.1-1.3); Absolute Neutrophil 4.5 K/uL (1.8-8.0); Basophils % 0.4 % (0-1.3); Eosinophils % 1.7 % (0-4.4); Hematocrit 36.9 % (36.0-45.0); Hemoglobin 12.4 g/dL (12.0-15.0); MCH 28.1 pg (27.0-35.0); MCHC 33.7 g/dL (32.0-36.0); MCV 83.5 fL (80-100); MPV 9.1 fL (7.6-11.3); Monocytes % 7.9 % (3.3-12.3); Platelets 162 thou/uL (152-406); RBC Red Blood Cell Count 4.41 M/uL (3.86-4.86); Red Cell Distribution Width 14.4 % (12.1-15.2)
[2024-05-07 09:37] LABS: Albumin 2.8 g/dL (3.4-5.0); Albumin/Globulin Ratio 0.7 (1.1-1.8); Alkaline Phosphatase 91 U/L (45-117); Anion Gap 8.2 mEq/L (5.0-15.0); BUN Blood Urea Nitrogen 9 mg/dL (7-18); Bicarbonate 25 mEq/L (21-32); Bilirubin Total 0.7 mg/dL (0.2-1.0); Glomerular Filtration Rate 76 ml/min (=/>90); Glucose Level 249 mg/dL (74-106); Lipase 582 U/L (13-75); Phosphorus 2.6 mg/dL (2.5-4.9); Potassium 4.2 mEq/L (3.5-5.1); Protein, Total 6.8 g/dL (6.4-8.2); Sodium Level 136 mEq/L (136-145)
[2024-05-07 09:38] LABS: ALT/SGPT < 14 U/L (13-56); AST/SGOT < 10 U/L (15-37)
--- NOTE | 2024-05-07 10:19 | P.PN ---
Date of Service: 05/07/24 Subjective: No acute events overnight Doing a little better today OK for sips of water, PO meds and ice chips ROS: 10 point ROS as noted above, otherwise negative Physical exam GEN: Alert, oriented, NAD HEENT: Normal conjunctiva, sclera anicteric CV: Regular rate and rhythm, no edema Pulm: Nonlabored respirations on room air ABD: Soft, mild generalized and tenderness, nondistended, chronic nation MSK: No joint tenderness Integumentary: No rashes Neuro: Normal speech, normal affect Vitals reviewed Assessment and Plan Acute on chronic pancreatitis Pneumobilia Dilated CBD Pneumobilia appears chronic compared to prior CT scan in December 2023. CBD dilatation likely related to history of cholecystectomy. LFTs normal-consider MRCP tomorrow if worsening clinically or LFTs elevated Supportive measures with IV fluids, analgesics. Sips and ice chips today Lipase improving Check lipid panel Empiric IV meropenem. Serial abdominal examination. Recurrent UTI-catheter associated-POA History of ESBL infection UA suggested presence of UTI. Associated leukocytosis Start IV meropenem Follow urine culture. Obtain blood culture. Diabetes mellitus type 2 Hold metformin Insulin sliding scale for glucose management. Chronic pain syndrome Patient is on morphine as needed IV Resume home dose [place]. DVT prophylaxis: Lovenox. Time Spent Managing Pts Care (In Minutes): 35
[2024-05-07] MEDS: lisinopriL 5 MG TAB PO ONE (12:24)
[2024-05-07] MEDS: AMLODIPINE 5 MG TAB PO ONE (12:24)
[2024-05-07] MEDS: PANTOPRAZOLE 40MG TABLET PO SCH (15:12)
[2024-05-07] MEDS: MORPHINE 4 MG/ML SYR IV PRN (17:41)
[2024-05-07] MEDS ORDERED: Meropenem 1,000 MG in NA CHLORIDE 0.9% 100 ML IV SCH (20:00)
[2024-05-08] MEDS: ONDANSETRON 4 MG (ODT) TAB PO PRN (08:19)
[2024-05-08] MEDS: AMLODIPINE 5 MG TAB PO SCH (08:24)
[2024-05-08] MEDS: lisinopriL 5 MG TAB PO SCH (08:25)
[2024-05-08] MEDS: OXYBUTYNIN ER 5 MG TAB PO SCH (08:30)
[2024-05-08] MEDS ORDERED: SOLIFENACIN SUCCIN 5 MG TAB PO SCH (09:00)
--- NOTE | 2024-05-08 12:08 | EKG ---
Test Date: 2024-05-06 Test Time: 15:27:58 Orthopedic Surgeon: AM MEASUREMENT RESULTS: Intervals: Rate: 90 AK: 160 QRSD: 138 QT: 408 QTc: 499 [place]: P: 52 AK: 160 QRS: -36 T: 107 INTERPRETIVE STATEMENTS: Normal sinus rhythm Left axis deviation Nonspecific intraventricular block T wave abnormality, consider lateral ischemia Abnormal ECG Compared to ECG 12/14/2023 04:06:14 T-wave abnormality now present Possible ischemia now present Left bundle-branch block no longer present Electronically Signed On 05-08-24 12:04:30 MOUNTER by Gautam Tompkins
[2024-05-08] MEDS ORDERED: GLUCAGON 1 MG/VIAL IM PRN (12:44)
[2024-05-08] MEDS ORDERED: D10W 125 ML IV PRN (12:44)
[2024-05-08] MEDS: FLUCONAZOLE 200mg IVPB 200 MG/100 ML BAG IV SCH (13:51)
--- NOTE | 2024-05-08 14:03 | P.PN ---
Date of Service: 05/08/24 Subjective: Continues to feel nauseous with sips of water will attempt CLD tonight Unable to obtain labs, Midline ordered ROS: 10 point ROS as noted above, otherwise negative Physical exam GEN: Alert and oriented x4, NAD, uncomfortable HEENT: Normal conjunctiva, sclera anicteric CV: RRR, no edema Pulm: Nonlabored respirations, clear BBS, on room air ABD: Soft on palpation, mild generalized and tenderness, chronic nation MSK: No joint tenderness Integumentary: No rashes Neuro: Normal speech, normal affect Vitals reviewed Assessment and Plan Acute on chronic pancreatitis Pneumobilia Dilated CBD Pneumobilia appears chronic compared to prior CT scan in December 2023. CBD dilatation likely related to history of cholecystectomy. LFTs normal-consider MRCP Supportive measures with IV fluids, analgesics. Sips and ice chips today, start CLD tonight Lipase improving Monitor lipid panel Empiric IV meropenem Serial abdominal examination Recurrent UTI-catheter associated-POA History of ESBL infection UA suggested presence of UTI. Associated leukocytosis Start IV meropenem and fluconazole Follow urine culture, growing yeast blood culture NGTD Chronic nation Diabetes mellitus type 2 Holding metformin Insulin sliding scale for glucose management, improved Chronic pain syndrome Patient is on morphine as needed IV Resume home dose [place] prior to discharge DVT prophylaxis: Lovenox
[2024-05-08] MEDS: Meropenem 1,000 MG in NA CHLORIDE 0.9% 100 ML IV SCH (16:59)
[2024-05-08 19:02] LABS: Absolute Eosinophils 0.1 K/uL (0-0.5); Absolute Lymphocytes (CBC) 1.3 K/uL (0.7-4.9); Absolute Monocytes 0.6 K/uL (0.1-1.3); Absolute Neutrophil 4.6 K/uL (1.8-8.0); Basophils % 0.5 % (0-1.3); Eosinophils % 2.2 % (0-4.4); Hematocrit 36.7 % (36.0-45.0); Hemoglobin 12.3 g/dL (12.0-15.0); Lymphocytes % 19.9 % (15.3-44.8); MCH 28.3 pg (27.0-35.0); MCHC 33.5 g/dL (32.0-36.0); MCV 84.6 fL (80-100); MPV 8.6 fL (7.6-11.3); Monocytes % 8.4 % (3.3-12.3); Nucleated Red Blood Cells % 0.1 % (0-0); Platelets 174 thou/uL (152-406); RBC Red Blood Cell Count 4.34 M/uL (3.86-4.86); Red Cell Distribution Width 14.4 % (12.1-15.2)
[2024-05-08 19:17] LABS: ALT/SGPT < 14 U/L (13-56); AST/SGOT < 10 U/L (15-37); Albumin 2.4 g/dL (3.4-5.0); Albumin/Globulin Ratio 0.6 (1.1-1.8); Alkaline Phosphatase 87 U/L (45-117); Anion Gap 7.5 mEq/L (5.0-15.0); BUN Blood Urea Nitrogen 4 mg/dL (7-18); Bicarbonate 26 mEq/L (21-32); Bilirubin Total 0.5 mg/dL (0.2-1.0); Glomerular Filtration Rate 73 ml/min (=/>90); Glucose Level 255 mg/dL (74-106); Lipase 109 U/L (13-75); Potassium 3.5 mEq/L (3.5-5.1); Protein, Total 6.4 g/dL (6.4-8.2); Sodium Level 138 mEq/L (136-145)
[2024-05-08] MEDS: Mupirocin NASAL 2 APPL/1 GM TUBE NAS SCH (20:58)
[2024-05-09 06:08] LABS: Absolute Eosinophils 0.1 K/uL (0-0.5); Absolute Lymphocytes (CBC) 1.3 K/uL (0.7-4.9); Absolute Monocytes 0.7 K/uL (0.1-1.3); Absolute Neutrophil 3.4 K/uL (1.8-8.0); Basophils % 0.6 % (0-1.3); Eosinophils % 2.3 % (0-4.4); Hematocrit 34.6 % (36.0-45.0); Hemoglobin 11.8 g/dL (12.0-15.0); Lymphocytes % 22.9 % (15.3-44.8); MCH 28.6 pg (27.0-35.0); MCHC 34.3 g/dL (32.0-36.0); MCV 83.6 fL (80-100); MPV 8.7 fL (7.6-11.3); Monocytes % 11.9 % (3.3-12.3); Neutrophils % 62.3 % (41.7-73.7); Platelets 171 thou/uL (152-406); RBC Red Blood Cell Count 4.14 M/uL (3.86-4.86); Red Cell Distribution Width 14.1 % (12.1-15.2)
[2024-05-09 06:21] LABS: Albumin 2.3 g/dL (3.4-5.0); Albumin/Globulin Ratio 0.6 (1.1-1.8); Alkaline Phosphatase 87 U/L (45-117); Anion Gap 6.7 mEq/L (5.0-15.0); BUN Blood Urea Nitrogen 3 mg/dL (7-18); Bicarbonate 28 mEq/L (21-32); Bilirubin Total 0.6 mg/dL (0.2-1.0); Globulin 3.8 g/dL (2.3-3.5); Glomerular Filtration Rate 88 ml/min (=/>90); Glucose Level 193 mg/dL (74-106); Lipase 58 U/L (13-75); Potassium 3.7 mEq/L (3.5-5.1); Protein, Total 6.1 g/dL (6.4-8.2); Sodium Level 139 mEq/L (136-145)
[2024-05-09 06:37] LABS: ALT/SGPT < 14 U/L (13-56); AST/SGOT < 10 U/L (15-37)
[2024-05-09] MEDS: POTASSIUM CL SA 10 MEQ TAB PO ONE (11:02)
[2024-05-09 12:56] VITALS: O2SAT 90
--- NOTE | 2024-05-09 17:38 | P.PN ---
Date of Service: 05/09/24 Subjective: Reports feeling better tolerating CLD, lipase normalized no new complaints ROS: 10 point ROS as noted above, otherwise negative Physical exam GEN: Alert and oriented x4, NAD CV: RRR, no edema Pulm: Nonlabored respirations, clear BBS, on room air ABD: Soft on palpation, chronic nation MSK: No joint tenderness Integumentary: No rashes Neuro: Normal speech, normal affect Vitals reviewed Assessment and Plan Acute on chronic pancreatitis Pneumobilia Dilated CBD Pneumobilia appears chronic compared to prior CT scan in December 2023. CBD dilatation likely related to history of cholecystectomy. LFTs normal-consider MRCP Supportive measures with IV fluids, analgesics. Sips and ice chips today, start CLD tonight Lipase improving Monitor lipid panel Empiric IV meropenem Serial abdominal examination Recurrent UTI-catheter associated-POA History of ESBL infection UA suggested presence of UTI. Associated leukocytosis Start IV meropenem and fluconazole Follow urine culture, growing yeast blood culture NGTD Chronic nation Diabetes mellitus type 2 Holding metformin Insulin sliding scale for glucose management, improved Chronic pain syndrome Patient is on morphine as needed IV Resume home dose [place] prior to discharge DVT prophylaxis: Lovenox Interval hospital course: 05/09/24 -tolerating CLD, advanced to FLD -PT consulted, Left extremity strength and endurance needed -lipase normalized -reports flatulance
--- NOTE | 2024-05-09 17:45 | CON ---
History Of Present Illness: This is a 78-year-old female I was consulted to evaluate the patient for recurrent urinary tract infection. The patient's urine is growing 4+ yeast. The patient has signif icant history of chronic pancreatitis. Recurrent pancreatitis and recurrent urinary tract infection with urine incontinence. The patient has chronic indwelling Dobson catheter and diabetes mellitus. C oming in with abdominal pain associated with nausea, no vomiting, no diarrhea. The patient has impro alee since and slowly upgraded to liquid diet. The patient is currently being treated with meropenem and Diflucan and tolerating antibiotic well. Past Medical History: As per HPI. Social History: Nonsmoker, nondrinker. Family History: Noncontributory. Medications: Meropenem and fluconazole. See MARS for other medications. Allergies: NO KNOWN DRUG ALLERGIES. Review of Systems: A 10-point review was performed. Physical Examination: General: This is a 78-year-old female, sitting in bed, not in any acute cardiopulmonary distress. Vital Signs: Temperature 98, pulse 79, respirations 16, blood pressure 185/85. HEENT: Unremarkable. Neck: Supple. Lungs: Basal crackles. Heart: S1, S2, regular. Abdomen: Soft. Bowel sounds present. Abdominal tenderness in the right upper quadrant, otherwise u nremarkable. Extremities: No edema. Laboratory Data: Shows WBC 5.5, down from 13.1, hemoglobin 11.8, platelets are 171. Chemistry shows BUN of 3, creatinine 0.7. Lipase was 109 on 05/08. Today is 58. Urine cultures are growing 4+ yea st. Blood cultures are negative to date from May 07. Her abdominal and pelvis CT scan done on [facility] shows that the patient has stranding around the head, neck and uncinate of the pancreas, susp icious of acute pancreatitis. Also extrahepatic biliary duct dilation and pneumobilia were noted. Assessment And Plan: A 78-year-old female with recurrent pancreatitis and urinary tract infection se condary to indwelling Dobson catheter. Cultures are showing funguria. Currently being treated with m eropenem and Diflucan. We will recommend to continue Diflucan for 7 days, meropenem for 10 days. Le ukocytosis has subsided. Diabetes mellitus. Monitor for signs of infection with WBC and fever trend s. Thank you for consult. NF/MODL Voice ID: [id number] Report ID: [id number]
[2024-05-10 12:10] VITALS: BP 160/64; TEMP 98.8
[2024-05-10] MEDS ORDERED: PHENAZOPYRIDINE 100MG TAB PO PRN (12:44)
[2024-05-10] MEDS: FLUCONAZOLE 100 MG TAB PO SCH (12:50)
--- NOTE | 2024-05-10 12:52 | RAD REPORT ---
EXAMINATION: CT Thorax Wo Con CLINICAL INDICATION: Female, 78 years old. [facility] MA[facility] c/o clavicle swollen lymph nodes Y TECHNIQUE: Axial CT scan of the chest without intravenous contrast. Multiplanar reformats were genera valentin and reviewed. One or more of the following dose reduction techniques were used: Automated exposure control, adjustment of the mA and/or kV according patient size, and/or iterative reconstruct ion. Unless otherwise specified, incidental findings do not require dedicated imaging follow-up. COMPARISON: 05/20/2023. FINDINGS: LOWER NECK: Visualized thyroid gland and soft tissues are normal. LUNGS: Confluent patchy left lower lobe upper segment airspace opacities. No evidence of airspace or interstitial process on the right. No worrisome nodules. PLEURA: No pleural effusion. No pneumothorax. . MEDIASTINUM AND LYMPH NODES: No mediastinal mass or fluid collection. Normal size mediastinal, hilar, and axillary lymph nodes. OSSEOUS STRUCTURES AND CHEST WALL: Intact. UPPER ABDOMEN: Swelling/bulky appearance of the head of the pancreas with adjacent fat stranding, bet ter evaluated on abdomen CT of 05/06/2024. Moderate hiatal hernia. IMPRESSION: Confluent patchy left lower lobe upper segment airspace opacities, concerning for pneumonia. Swollen/bulky appearance of the head of the pancreas with adjacent fat stranding, better evaluated on recent abdominal CT.
--- NOTE | 2024-05-10 14:03 | P.DS ---
Admission Date: 05/06/24 Discharge Date: 05/10/24 Disposition: [place] HOME/HOME HEALTH CARE Discharge Condition: GOOD Reason for Admission: Abdominal pain Brief History of Present Illness: Diagnosis Acute on chronic pancreatitis Pneumobilia Dilated CBD Recurrent UTI-catheter associated-POA History of ESBL infection Diabetes mellitus type 2 Chronic pain syndrome HPI 05/06/24 78-year-old woman with a history of recurrent pancreatitis and recurrent UTI, history of [id number]-tnnmugveg diabetes presented to the emergency department with a complaint of sudden onset abdominal pain this afternoon, associated naus ea, no vomiting. Patient denied any diarrhea. Last bowel movement was this morning and last meal was lunch today. Patient denied any fever. Patient rated her abdominal pain as 8/10, no relieving factors, no associated bloating. She was evaluated in the ED, and lipase level noted to be elevated to greater than 5000, CT abdomen pelvis demonstrated pancreatic stranding. UA obtained in the ED suggest the presence of UTI. Patient states she is on chronic antibiotics for UTI prophylaxis. Patient admitted for further management. Hospital Course: Patient was admitted and treated for the following diagnosis Acute on chronic pancreatitis Pneumobilia Dilated CBD Pneumobilia appears chronic compared to prior CT scan in December 2023 CBD dilatation likely related to history of cholecystectomy tolerated slow diet advancement Lipase normalized tolerated Empiric IV meropenem Serial abdominal examination Recurrent UTI-catheter associated-POA History of ESBL infection tolerated IV meropenem and fluconazole, will continue floconazole at discharge urine culture, growing yeast blood culture NGTD Chronic nation, home health changes monthy Diabetes mellitus type 2 Held metformin Insulin sliding scale, serum glucose improved Chronic pain syndrome Resumed home dose [place] On 05/10/24, Isadora expressed concern for enlarged lymph nodes to right clanicle area. CT chest reports no acute findings but mentions a suspicion of PNA. Isadora was seen on morning rounds and deemed hemodynamically stable for discharge. Levaquin and diflucan prescribed per Dr. Kwan's approval. Follow up with PCP for continued monitoring. Physical exam GEN: AAOx4, NAD, afebrile CV: Regular rate and rhythm, S1-S2 present Pulm: Nonlabored respirations, symmetrical chest wall movement, on room air ABD: Soft on palpation, nontender, chronic nation MSK: No joint tenderness Integumentary: No rashes Neuro: Normal speech, normal affect Vital Signs/Physical Exam: Temp Pulse Resp BP Pulse Ox 98.8 F 76 15 160/64 H 98 05/10/24 12:00 05/10/24 12:00 05/10/24 12:00 05/10/24 12:00 05/10/24 12:00 Laboratory Data at Discharge: WBC 5.50 thou/uL (4.3-10.9) 05/09/24 05:50 Hgb 11.8 g/dL (12.0-15.0) L 05/09/24 05:50 Hct 34.6 % (36.0-45.0) L 05/09/24 05:50 Plt Count 171 thou/uL (152-406) 05/09/24 05:50 Sodium 139 mEq/L (136-145) 05/09/24 05:50 Potassium 3.7 mEq/L (3.5-5.1) 05/09/24 05:50 BUN 3 mg/dL (7-18) L 05/09/24 05:50 Creatinine 0.71 mg/dL (0.55-1.02) 05/09/24 05:50 Glucose 193 mg/dL (74-106) H 05/09/24 05:50 Phosphorus 2.6 mg/dL (2.5-4.9) 05/07/24 07:51 Magnesium 2.0 mg/dL (1.6-2.4) 05/07/24 07:51 Total Bilirubin 0.6 mg/dL (0.2-1.0) 05/09/24 05:50 AST < 10 U/L (15-37) L 05/09/24 05:50 ALT < 14 U/L (13-56) 05/09/24 05:50 Alkaline Phosphatase 87 U/L (45-117) 05/09/24 05:50 Triglycerides 199 mg/dL (<150) H 05/07/24 07:51 Cholesterol 128 mg/dL (<200) 05/07/24 07:51 HDL Cholesterol 48 mg/dL (40-60) 05/07/24 07:51 Cholesterol/HDL Ratio 2.67 05/07/24 07:51 Lipase 58 U/L (13-75) 05/09/24 05:50 Home Medications: Metformin HCl 1,000 mg PO BID 02/24/23 Amlodipine [Norvasc*] 5 mg PO DAILY 30 Days #30 tab 07/02/23 lisinopriL [Prinivil*] 5 mg PO DAILY 30 Days #30 tab 07/02/23 Atorvastatin Calcium 40 mg PO BEDTIME 12/14/23 Solifenacin [Vesicare*] 10 mg PO DAILY 12/14/23 Hydrocodone 5/APAP 325 [[place] 5/325*] 1 tab PO Q8H PRN #10 tab 12/18/23 Pantoprazole [Protonix Tab*] 40 mg PO BID #44 tab 12/18/23 Cholecalciferol (Vitamin D3) [Vitamin D 5,000 IU Cap*] 5,000 unit PO DAILY 05/07/24 Insulin Glargine-Yfgn [Semglee (Yfgn) Pen] 7 unit SQ SEECOM 05/07/24 Fluconazole [Diflucan] 200 mg PO DAILY 2 Days #2 tab 05/10/24 Levofloxacin [Levaquin] 500 mg PO DAILY 7 Days #7 tab 05/10/24 Phenazopyrididine [Pyridium*] 100 mg PO TID PRN 5 Days #8 tab 05/10/24 New Medications: Fluconazole [Diflucan] 200 mg PO DAILY 2 Days #2 tab Levofloxacin [Levaquin] 500 mg PO DAILY 7 Days #7 tab Phenazopyrididine [Pyridium*] 100 mg PO TID PRN 5 Days #8 tab PRN Reason: Abdominal Cramps Followup: NONE,NONE [Primary Care Provider] - Mariam White MD [ACTIVE - CAN ADMIT] - 1-2 Weeks
--- NOTE | 2024-05-10 15:00 | PN ---
Subjective: Patient complaining of neck and chest and left axillary discomfort. Also has burning w hen she urinates. Denies any other problems at this time. Also having some abdominal discomfort. T he patient is currently on liquid diet. Objective: Vital signs: Reviewed. Lungs: Basal crackles. Heart: S1, S2. Regular. Abdomen: Soft, nontender. Bowel sounds present. Extremities: Trace edema. Axillary lymph node negative. Laboratory Data: Shows WBC 5.5, hemoglobin 11.8, platelets 171. Chemistry is pending. Blood cultur es are negative to date. Urine cultures growing 100,000 yeast. Assessment And Plan: Acute on chronic pancreatitis, improving. Leukocytosis has improved. Urinary tract infection. CT chest shows appearance of the head of the pancreas with adjacent for fat stranding. Recommend to get abdominal CT if not improved. Assessment and plan: Acute on chronic pancreatitis. Urinary tract infection. Continue antibiotic a nd supportive care total of 10 days plan for 7 days. We will follow the patient closely. No other recommendations. NF/MODL Voice ID: [id number] Report ID: [id number]
== END 2024-05-10 17:19 | disposition home health service (06) | DRG 698 ==
LOC: ER 14:58 → 2ND 19:12
PROVIDERS: ADMIT Internal Medicine; ATTEND Internal Medicine
PROC: 02HV33Z Insertion of Infusion Device into Superior Vena Cava, Percutaneous Approach (ICD-10-PCS; principal; 2024-05-08)
DX: T83.518A Infection and inflammatory reaction due to other urinary catheter, initial encounter (principal); K85.90 Acute pancreatitis without necrosis or infection, unspecified; N39.0 Urinary tract infection, site not specified; R65.10 Systemic inflammatory response syndrome (SIRS) of non-infectious origin without acute organ dysfunction; K86.1 Other chronic pancreatitis; I10 Essential (primary) hypertension; E78.5 Hyperlipidemia, unspecified; G89.4 Chronic pain syndrome; K83.8 Other specified diseases of biliary tract; E11.9 Type 2 diabetes mellitus without complications; Z79.4 Long term (current) use of insulin; Z60.2 Problems related to living alone; Z68.31 Body mass index [BMI] 31.0-31.9, adult; Z79.84 Long term (current) use of oral hypoglycemic drugs; Z90.49 Acquired absence of other specified parts of digestive tract; Z87.891 Personal history of nicotine dependence; Z79.899 Other long term (current) drug therapy; Z90.710 Acquired absence of both cervix and uterus
CPT/HCPCS: 36415; 71250; 74177; 80053; 80061; 81001; 82947; 83690; 83735; 84100; 84484; 85025; 87040; 87086; 87088; 93005; 96361; 96374; 96375; 97116; 97161; 97530; 99285; J1450; J1650; J1790; J1815; J2185; J2270; J2405; J2543; J7030; J7799; Q0162; Q9967

== ENCOUNTER 2024-05-17 15:31 | Inpatient (IN) | payer OTHER ==
[2024-05-17 18:00] LABS: Absolute Eosinophils 0.2 K/uL (0-0.5); Absolute Lymphocytes (CBC) 1.8 K/uL (0.7-4.9); Absolute Monocytes 0.5 K/uL (0.1-1.3); Absolute Neutrophil 3.2 K/uL (1.8-8.0); Basophils % 0.5 % (0-1.3); Eosinophils % 2.7 % (0-4.4); Hematocrit 37.5 % (36.0-45.0); Hemoglobin 12.5 g/dL (12.0-15.0); Lymphocytes % 32.2 % (15.3-44.8); MCHC 33.4 g/dL (32.0-36.0); MCV 83.7 fL (80-100); Monocytes % 8.1 % (3.3-12.3); Neutrophils % 56.5 % (41.7-73.7); Nucleated Red Blood Cells % 0.1 % (0-0); Platelets 229 thou/uL (152-406); RBC Red Blood Cell Count 4.48 M/uL (3.86-4.86); Red Cell Distribution Width 14.4 % (12.1-15.2)
[2024-05-17 18:07] LABS: PT Prothrombin Time 12.3 SECONDS (10-13.0); PTT, Activated Partial Thromb 31.4 SECONDS (27.2-37.4); Protime INR 1.08
[2024-05-17] MEDS ORDERED: Meropenem 1000 MG/VIAL IV ONE (18:12)
[2024-05-17] MEDS ORDERED: NA CHLORIDE 0.9% 100 ML ONE (18:12)
[2024-05-17 18:21] LABS: Albumin 3.2 g/dL (3.4-5.0); Albumin/Globulin Ratio 0.7 (1.1-1.8); Bilirubin Total 0.3 mg/dL (0.2-1.0); Globulin 4.4 g/dL (2.3-3.5); Protein, Total 7.6 g/dL (6.4-8.2)
--- NOTE | 2024-05-17 18:58 | EDPHYS ---
Physician Documentation [facility] Name: Isadora Bettencourt Age: 78 yrs Sex: Female : 1945 Arrival Date: 05/17/2024 Time: 15:31 Bed 25 Private MD: ED Physician Efrain Smith HPI: 05/17 15:50 This 78 yrs old Female presents to ER via EMS with complaints of Sent by Dr for ESBL. kb 15:50 Pt is a 78 year old female who presents for ESBL in urine. States her dr called her and kb told her to come to the ER for evaluation and IV antibiotics. Denies any symptoms. States she has had a nation for over a year and has it changed out once a month. . Historical: - Allergies: 15:38 No Known Allergies; me1 - PMHx: 15:38 Anxiety; hiatal hernia; diabetes mellitus; Hypertension; Kidney stones; Pancreatitis; me1 - PSHx: 15:38 Appendectomy; back; Bladder; Cholecystectomy; knee; Total abdominal hysterectomy; wrist;me1 - Immunization history:: Adult Immunizations up to date. - Infectious Disease History:: Denies. - Social history:: Smoking status: Patient/guardian denies using tobacco, but has a distant history of tobacco abuse. ROS: 15:52 Constitutional: As per HPI kb Exam: 15:52 Constitutional: This is a well developed, well nourished patient who is awake, alert, kb and in no acute distress. Head/Face: Normocephalic, atraumatic. ENT: Moist Mucous membranes Cardiovascular: Regular rate Respiratory: Respirations even and unlabored. No increased work of breathing. Talking in full sentences Abdomen/GI: Soft, non-tender. No distention Skin: Warm, dry with normal turgor. Normal color. MS/ Extremity: Pulses equal, no cyanosis. Neurovascular intact. Full, normal range of motion. Neuro: Awake and alert, GCS 15, oriented to person, place, time, and situation. 17:16 ECG was reviewed by the Attending Physician. Vital Signs: 15:35 BP 147 / 83; Pulse 99; Resp 19; Temp 97.9; Pulse Ox 95% ; Weight 74.84 kg; Height 5 ft. me1 1 in. ; Pain 0/10; 16:00 BP 141 / 92; Pulse 76; Resp 19; Pulse Ox 95% ; me1 17:00 BP 131 / 62; Pulse 69; Resp 18; Pulse Ox 95% ; me1 18:00 BP 121 / 75; Pulse 68; Resp 16; Pulse Ox 96% ; me1 19:00 BP 125 / 88; Pulse 72; Resp 19; Pulse Ox 97% ; me1 20:00 BP 132 / 75; Pulse 72; Resp 17; Pulse Ox 98% ; me1 21:00 BP 121 / 74; Pulse 68; Resp 20; Pulse Ox 96% ; me1 22:00 BP 126 / 82; Pulse 71; Resp 18; Temp 98.4; Pulse Ox 98% ; me1 15:35 Body Mass Index 31.18 (74.84 kg, 154.94 cm) me1 15:35 Pain Scale: Adult me1 MDM: 15:38 Medical Screening Exam initiated kb 15:52 Data reviewed: vital signs, nurses notes. kb 18:56 Differential diagnosis: UTI. Consideration of Admission/Observation Patient was kb admitted/placed on observation. Escalation of care including admission/observation considered. Management of patient was discussed with the following: Hospitalist: Dr Ayala accepts pt for admission. Historians other than the Patient: EMS: [facility]. Counseling: I had a detailed discussion with the patient and/or guardian regarding the historical points, exam findings, and any diagnostic results supporting the discharge/admit diagnosis, lab results, the need for further work-up and treatment in the hospital. 05/17 15:39 Order name: Blood Culture Adult (2) 05/17 15:39 Order name: CBC with Diff; Complete Time: 18:04 kb 05/17 15:39 Order name: CMP; Complete Time: 18:22 kb 05/17 15:39 Order name: Lactate w/ 2H reflex if indic.; Complete Time: 18:27 kb 05/17 15:39 Order name: Protime (+inr); Complete Time: 18:11 kb 05/17 15:39 Order name: Ptt, Activated; Complete Time: 18:11 kb 05/17 18:25 Order name: Urinalysis w/ reflexes; Complete Time: 19:32 kb 05/17 18:27 Order name: Ghost Lactate-NO COLLECT Timer; Complete Time: 20:44 EDMA 05/17 19:27 Order name: Urine Culture [facility] 05/17 19:33 Order name: Urinalysis w/ reflexes EDMA 05/17 19:33 Order name: CBC with Automated Diff EDMA 05/17 19:33 Order name: CBC with Automated Diff EDMA 05/17 19:33 Order name: Comprehensive Metabolic Panel EDMA 05/17 19:33 Order name: Comprehensive Metabolic Panel EDMA 05/17 22:03 Order name: Lactate Sepsis 2 HR Follow-up; Complete Time: 22:32 EDMS 05/17 15:39 Order name: EKG; Complete Time: 15:39 kb 05/17 15:39 Order name: EKG - Nurse/Tech; Complete Time: 17:01 kb 05/17 15:39 Order name: IV Saline Lock - Large Bore; Complete Time: 17:01 kb 05/17 15:39 Order name: Labs collected and sent; Complete Time: 18:00 kb 05/17 15:39 Order name: O2 Per Protocol; Complete Time: 16:48 kb 05/17 15:39 Order name: O2 Sat Monitoring; Complete Time: 16:48 kb 05/17 15:39 Order name: Vital Signs; Complete Time: 16:48 kb 05/17 20:44 Order name: Misc. Order: please draw repeat lactate; Complete Time: 22:02 kb EC:16 Rate is 73 beats/min. Rhythm is regular. QRS [place] is Normal. CT interval is normal at kb 160 msec. QRS interval is normal at 138 msec. QT interval is normal at 489 msec. Administered Medications: 18:18 Drug: Meropenem IV 1 grams IV at calculated rate once; (mix in NS 100 mL) Route: IV; me1 Rate: calculated rate; Site: left wrist; 18:48 Follow up: Response: No adverse reaction; IV Status: Completed infusion me1 Disposition: 20:57 Co-signature as Attending Physician, Efrain Smith MD I reviewed the patient's care rt provided by the Advanced Practice Provider and agree with the diagnosis and treatment plan. Disposition Summary: 05/17/24 18:57 Hospitalization Ordered Notes: Hospitalization Status: Inpatient Admission kb Provider: Tim Ayala Location: Telemetry/MedSurg (Inpatient) kb Condition: Stable kb Problem: new kb Symptoms: are unchanged kb Bed/Room Type: [facility] Room Assignment: [facility](05/17/24 20:34) [facility] Diagnosis - UTI/ Urinary tract infection, site not specified - ESBL kb Forms: - Medication Reconciliation Form kb - SBAR form kb - Leadership Thank You Letter kb Signatures: Dispatcher [employer] EDMecca Levi, INSURANCE ADMINISTRATOR-Kathy BASSETT-Efrain Lerma MD MD rt Devora Lawrence, RN RN me1 Carline Limon [facility] Corrections: (The following items were deleted from the chart) 15:39 15:39 BLOOD CULTURE*+BA.LAB.BRZ ordered. EDMS EDMS 15:39 15:39 CBC+H.LAB.BRZ ordered. EDMS EDMS 15:39 15:39 COMPREHENSIVE METABOLIC PANEL+C.LAB.BRZ ordered. EDMS EDMS 15:39 15:39 LACTATE+C.LAB.BRZ ordered. EDMS EDMS 15:39 15:39 PROTIME (+INR)+COAG.LAB.BRZ ordered. EDMS EDMS 15:39 15:39 PTT, ACTIVATED+COAG.LAB.BRZ ordered. EDMS EDMS 20:34 18:57 kb [facility]
--- NOTE | 2024-05-17 18:58 | ER ---
Nurse's Notes [facility] Name: Isadora Bettencourt Age: 78 yrs Sex: Female : 1945 Arrival Date: 05/17/2024 Time: 15:31 Bed 25 Private MD: Diagnosis: UTI/ Urinary tract infection, site not specified-ESBL Presentation: 05/17 15:35 Chief complaint: EMS states: toned out for transport to hospital. Sent by Dr for ESBL me1 in urine. Patient has a nation catheter all the time for incontinence. Coronavirus screen: Vaccine status: Patient reports receiving the 2nd dose of the covid vaccine. Ebola Screen: No symptoms or risks identified at this time. Initial Sepsis Screen: Does the patient meet any 2 criteria? No. Patient's initial sepsis screen is negative. Does the patient have a suspected source of infection? No. Patient's initial sepsis screen is negative. Risk Assessment: Do you want to hurt yourself or someone else? Patient reports no desire to harm self or others. Onset of symptoms is unknown. 15:35 Method Of Arrival: EMS nv1 15:35 Acuity: FRANDY 3 me1 Triage Assessment: 15:38 General: Appears in no apparent distress. Behavior is calm, cooperative, appropriate me1 for age. Pain: Denies pain. EENT: No signs and/or symptoms were reported regarding the EENT system. Neuro: Level of Consciousness is awake, alert, obeys commands, Oriented to person, place, time, situation, Appropriate for age. Cardiovascular: Patient's skin is warm and dry. Respiratory: Airway is patent Respiratory effort is even, unlabored, Respiratory pattern is regular, symmetrical. GI: No signs and/or symptoms were reported involving the gastrointestinal system. : Nation in place to gravity drainage. Derm: Skin is intact, is healthy with good turgor, Skin is pink, warm \T\ dry. Musculoskeletal: No signs and/or symptoms reported regarding the musculoskeletal system. Historical: - Allergies: 15:38 No Known Allergies; me1 - PMHx: 15:38 Anxiety; hiatal hernia; diabetes mellitus; Hypertension; Kidney stones; Pancreatitis; me1 - PSHx: 15:38 Appendectomy; back; Bladder; Cholecystectomy; knee; Total abdominal hysterectomy; wrist;me1 - Immunization history:: Adult Immunizations up to date. - Infectious Disease History:: Denies. - Social history:: Smoking status: Patient/guardian denies using tobacco, but has a distant history of tobacco abuse. Screenin:[facility] ED Fall Risk Assessment (Adult) History of falling in the last 3 months, me1 including since admission No falls in past 3 months (0 pts) Confusion or Disorientation No (0 pts) Intoxicated or Sedated No (0 pts) Impaired Gait Yes (1 pt) Mobility Assist Device Used Yes (1 pt) Altered Elimination Yes (1 pt) Score/Fall Risk Level 3 or more points = High Risk Maintained a safe environment, Hourly rounding (assess needs \T\ fall precautionary measures) done, Used ambulatory aids as needed (educated on \T\ assisted with). Abuse screen: Denies threats or abuse. Nutritional screening: No deficits noted. Tuberculosis screening: No symptoms or risk factors identified. Assessment: 15:39 General: See triage assessment. me1 Vital Signs: 15:35 BP 147 / 83; Pulse 99; Resp 19; Temp 97.9; Pulse Ox 95% ; Weight 74.84 kg; Height 5 ft. me1 1 in. ; Pain 0/10; 16:00 BP 141 / 92; Pulse 76; Resp 19; Pulse Ox 95% ; me1 17:00 BP 131 / 62; Pulse 69; Resp 18; Pulse Ox 95% ; me1 18:00 BP 121 / 75; Pulse 68; Resp 16; Pulse Ox 96% ; me1 19:00 BP 125 / 88; Pulse 72; Resp 19; Pulse Ox 97% ; me1 20:00 BP 132 / 75; Pulse 72; Resp 17; Pulse Ox 98% ; me1 21:00 BP 121 / 74; Pulse 68; Resp 20; Pulse Ox 96% ; me1 22:00 BP 126 / 82; Pulse 71; Resp 18; Temp 98.4; Pulse Ox 98% ; me1 15:35 Body Mass Index 31.18 (74.84 kg, 154.94 cm) me1 15:35 Pain Scale: Adult me1 ED Course: 15:35 Patient arrived in ED. me1 15:37 Triage completed. me1 15:38 Mecca Sullivan [facility]NP[facility]C [facility] kb 15:38 Efrain Smith MD is Attending Physician. kb 15:38 Arm band placed on Patient placed in an exam room. me1 15:39 Patient has correct armband on for positive identification. Bed in low position. Call me1 light in reach. Side rails up X2. Provided Education on: POC. Verbalized understanding.. Client placed on continuous cardiac and pulse oximetry monitoring. NIBP monitoring applied. Pulse ox on. NIBP on. 15:39 No provider procedures requiring assistance completed. me1 15:41 Devora Lawrence, RN is Primary Nurse. me1 15:55 Missed attempt(s): 22 gauge in left forearm. me1 18:57 Tim Ayala MD is Hospitalizing Provider. kb 21:26 Patient admitted, IV remains in place. me1 22:02 Urine Culture Sent. me1 Administered Medications: 18:18 Drug: Meropenem IV 1 grams IV at calculated rate once; (mix in NS 100 mL) Route: IV; me1 Rate: calculated rate; Site: left wrist; 18:48 Follow up: Response: No adverse reaction; IV Status: Completed infusion me1 Medication: 15:39 VIS not applicable for this client. me1 Outcome: 18:57 Decision to Hospitalize by Provider. kb 21:26 Admitted to Med/surg accompanied by tech, via stretcher, room 228, with chart, Report me1 called to faxed, receipt confirmed with Taya. 21:26 Condition: stable 21:26 Instructed on the need for admit, 22:34 Patient left the ED. me1 Signatures: Mecca Sullivan, ASSEMBLER BODY-C ASSEMBLER BODY-Ckb Devora Lawrence, RN RN me1
[2024-05-17 19:24] LABS: Urine Bacteria <20 /HPF (<20); Urine Bilirubin NEGATIVE (Negative); Urine Blood 1+ (Negative); Urine Clarity Extremely Turbid (Clear); Urine Color Light-Yellow (Yellow); Urine Crystals Unidentified Few /HPF (None Seen); Urine Culture Reflex Order REFLEXED; Urine Glucose NEGATIVE (Negative); Urine Ketones NEGATIVE (Negative); Urine Microscopic Reflex YN ORDER UMIC; Urine Mucus Slight /HPF (None Seen); Urine Nitrite NEGATIVE (Negative); Urine Protein TRACE (Negative); Urine RBC 21-50 /HPF (None Seen); Urine Urobilinogen Normal (Normal); Urine WBC >50 /HPF (<5); Urine Yeast (Budding) Few /HPF (None Seen); Urine pH 5.5 (5.0-7.0)
--- NOTE | 2024-05-17 19:27 | P.HP ---
Certification for Inpatient Patient admitted to: Inpatient With expected LOS: >2 Midnights Practitioner: I am a practitioner with admitting privileges, knowledge of patient current condition, hospital course, and medical plan of care. Services: Services provided to patient in accordance with Admission requirements found in Title 42 Section 412.3 of the Code of Federal Regulations Patient History Date of Service: 05/17/24 Reason for admission: UTI History of Present Illness: 78 yrs old Female with past medical history of anxiety, hiatal hernia, GERD, diabetes, hypertension, kidney stones, pancreatitis who was sent to ER as she was found to have UTI with ESBL and was advised to come to ER for further management. Patient denies any fever or chills. No nausea vomiting diarrhea. No chest pain or shortness of breath. No sick contacts. Patient was assessed in the ER and is admitted for further management of ESBL UTI Allergies No Known Allergies Allergy (Verified 05/06/24 20:28) Home medications list reviewed: Yes Home Medications: Metformin HCl 1,000 mg PO BID 02/24/23 Amlodipine [Norvasc*] 5 mg PO DAILY 30 Days #30 tab 07/02/23 lisinopriL [Prinivil*] 5 mg PO DAILY 30 Days #30 tab 07/02/23 Atorvastatin Calcium 40 mg PO BEDTIME 12/14/23 Solifenacin [Vesicare*] 10 mg PO DAILY 12/14/23 Hydrocodone 5/APAP 325 [[place] 5/325*] 1 tab PO Q8H PRN #10 tab 12/18/23 Pantoprazole [Protonix Tab*] 40 mg PO BID #44 tab 12/18/23 Cholecalciferol (Vitamin D3) [Vitamin D 5,000 IU Cap*] 5,000 unit PO DAILY 05/07/24 Insulin Glargine-Yfgn [Semglee (Yfgn) Pen] 7 unit SQ SEECOM 05/07/24 Fluconazole [Diflucan] 200 mg PO DAILY 2 Days #2 tab 05/10/24 Levofloxacin [Levaquin] 500 mg PO DAILY 7 Days #7 tab 05/10/24 Phenazopyrididine [Pyridium*] 100 mg PO TID PRN 5 Days #8 tab 05/10/24 - Past Medical/Surgical History Diabetic: Yes Past Medical History: Reviewed- Non-Contributory -: kidney stones -: Gastroesophageal reflux disease w Hiatal hernia -: Esophageal spasm -: Attention deficit disorder -: Hypertension -: Depression with anxiety -: Hyperlipidemia -: Chronic pain -: Fatty liver, nonalcoholic -: Urinary incontinence/Nephrolithiasis -: Recurrent UTI Past Surgical History: Reviewed- Non-Contributory -: Hysterectomy -: Cholecystectomy -: Appendectomy -: back surgery -: knee surgery -: foot surgery -: EGD/ERCP -: Cardiac catheterization, no stent Psychosocial/ Personal History: Patient lives at home alone - Family History Family History: Reviewed- Non-Contributory - Family History Father -: Diabetes, Cancer Notes: Type 2 Mother -: Hypertension, Diabetes, Other (see notes) Notes: Hypoglycemia Sister Notes: epilepsy - Social History Smoking Status: Never smoker Alcohol use: No CD- Drugs: No Caffeine use: No Review of Systems 10-point ROS is otherwise unremarkable Physical Examination - Vital Signs Temperature: 97.8 F Blood Pressure: 132/62 Pulse: 80 Respirations: 18 Pulse Ox (%): 94 - Physical Exam General: Alert, In no apparent distress, Oriented x3, Cooperative HEENT: Atraumatic, Normocephalic Neck: Supple, No Thyromegaly Respiratory: Clear to auscultation bilaterally, Normal air movement Cardiovascular: Normal pulses, Regular rate/rhythm Capillary refill: <2 Seconds Gastrointestinal: Soft and benign, W/out hepatosplenomegaly Musculoskeletal: No clubbing, No swelling Integumentary: No rashes, No breakdown Neurological: Normal speech, Normal strength at 5/5 x4 extr, Cranial nerves 3-12 intact, Normal reflexes 2+ Lymphatics: No axilla or inguinal lymphadenopathy - Studies Laboratory Data (last 24 hrs) 05/17/24 05/17/24 05/17/24 17:45 17:45 17:45 WBC 5.60 Hgb 12.5 Hct 37.5 Plt Count 229 PT 12.3 INR 1.08 APTT 31.4 Sodium 138 Potassium 4.0 BUN 16 Creatinine 0.80 Glucose 155 H Total Bilirubin 0.3 AST 14 L ALT 16 Alkaline Phosphatase 102 Assessment and Plan - Plan UTI with ESBL Started IV antibiotic Started on meropenem Monitor closely Hypertension Antihypertensives titrated Continue home medications and titrate as needed Hyperlipidemia Continue statin GERD Continue home medications and titrate as needed Diabetes Insulin sliding scale Accu-Chek before every meal and at bedtime Lactic acidosis IV hydration Monitor renal parameters GI/DVT prophylaxis Advanced directive full code Discharge Plan: Home Plan to discharge in: 48 Hours - Advance Directives Does patient have a Living Will: No Does patient have a Durable POA for Healthcare: No - Code Status/Comfort Care Code Status: Full Code Time Spent Managing Pts Care (In Minutes): 53
[2024-05-17] MEDS ORDERED: GLUCAGON 1 MG/VIAL IM PRN (22:39)
[2024-05-17] MEDS ORDERED: D10W 125 ML IV PRN (22:39)
[2024-05-17] MEDS: NA CHLORIDE 0.9% 1,000 ML IV SCH (23:29)
[2024-05-18 00:25] VITALS: BMI 31.1
[2024-05-18] MEDS: Meropenem 500 MG in NA CHLORIDE 0.9% 100 ML IV SCH (00:40)
[2024-05-18] MEDS: ACETAMINOPHEN 325 MG TABLET PO PRN (00:40)
[2024-05-18] MEDS: HYDROCODONE/APAP 5/325 MG TAB PO PRN (01:36)
[2024-05-18] MEDS: HYDRALAZINE HCL 20 MG/ML VIAL IV PRN (01:37)
[2024-05-18 07:58] LABS: Absolute Eosinophils 0.1 K/uL (0-0.5); Absolute Lymphocytes (CBC) 1.1 K/uL (0.7-4.9); Absolute Monocytes 0.4 K/uL (0.1-1.3); Absolute Neutrophil 2.4 K/uL (1.8-8.0); Basophils % 0.9 % (0-1.3); Eosinophils % 3.6 % (0-4.4); Hematocrit 39.1 % (36.0-45.0); Hemoglobin 13.3 g/dL (12.0-15.0); Lymphocytes % 25.8 % (15.3-44.8); MCH 28.4 pg (27.0-35.0); MCV 83.5 fL (80-100); MPV 8.3 fL (7.6-11.3); Monocytes % 10.7 % (3.3-12.3); Platelets 197 thou/uL (152-406); RBC Red Blood Cell Count 4.69 M/uL (3.86-4.86); Red Cell Distribution Width 14.6 % (12.1-15.2)
[2024-05-18] MEDS: lisinopriL 5 MG TAB PO SCH (08:22)
[2024-05-18] MEDS: Meropenem 1,000 MG in NA CHLORIDE 0.9% 100 ML IV SCH (08:22)
[2024-05-18] MEDS: PANTOPRAZOLE 40MG TABLET PO SCH (08:22)
[2024-05-18] MEDS: ENOXAPARIN 40 MG/0.4 ML SQ SCH (08:22)
[2024-05-18] MEDS: VITAMIN D 5,000 UNIT CAP PO SCH (08:22)
[2024-05-18] MEDS: AMLODIPINE 5 MG TAB PO SCH (08:22)
[2024-05-18] MEDS: INSULIN REGULAR (HUMAN) 100 UNIT/ML SQ SCH (08:23)
[2024-05-18 08:27] LABS: Albumin 3.1 g/dL (3.4-5.0); Albumin/Globulin Ratio 0.8 (1.1-1.8); Anion Gap 9.5 mEq/L (5.0-15.0); Bilirubin Total 0.6 mg/dL (0.2-1.0); Globulin 3.9 g/dL (2.3-3.5); Potassium 3.5 mEq/L (3.5-5.1)
[2024-05-18] MEDS ORDERED: SOLIFENACIN SUCCIN 5 MG TAB PO SCH (09:00)
[2024-05-18] MEDS: POTASSIUM CL SA 10 MEQ TAB PO ONE (09:33)
[2024-05-18] MEDS: ONDANSETRON 4 MG/2 ML VIAL IV PRN (10:33)
--- NOTE | 2024-05-18 11:01 | P.PN ---
Date of Service: 05/18/24 Subjective: dealing with some increased heartburn/reflux this morning continues with burning sensation when urinating breathing okay afebrile ROS: 10 point ROS as noted above, otherwise negative Physical Exam: GEN: Alert, oriented, NAD CV: Regular rate and rhythm, no edema ABD: soft, nontender, nondistended Neuro: Normal speech, normal affect Chronic nation in place Problem List: UTI POA - ESBL Hx of Incontinence/Nephrolithiasis Chronic gastritis / GERD Chronic recurrent Pancreatitis Chronic pain syndrome IDDM2 Dementia Depression/anxiety Hypertension BPH UTI POA - ESBL Hx of Incontinence/Nephrolithiasis on admission, presents to ER per physician recommendation for ESBL UTI. Unclear what exactly grew and when culture was obtained. Will reach out to Dr. White's office regarding culture results/sensitivities Per OSH records, urine cx from 04/23/24 grew Proteus Mirabilis ESBL - sensitivities below. Urine culture from last hospitalization grew 4+ yeast. Treated with 5 days of IV merrem and was discharged on Diflucan/Levaquin (05/06) Has chronic nation in place; replaced ~2 weeks ago per patient Continue IV merrem (05/18-) for now - started in ER most recent urine culture without bacterial growth now having dysuria - unclear if new bacterial infxn in last few days vs yeast Follow urine and blood cultures Chronic gastritis / GERD Chronic recurrent Pancreatitis Protonix BID 05/18 - carafate added Chronic pain syndrome Pain control. Confirm home regimen. IDDM2 accu-cheks, SSI A1c 9.5 (per outside recs 04/23/2024) Dementia Depression/anxiety Hypertension BPH confirm home meds, restart as appropriate VTE: Lovenox Code: Full Dispo: Home, 2-3 days Time Spent Managing Pts Care (In Minutes): 55
[2024-05-18] MEDS: SUCRALFATE 1 GM TABLET PO SCH (11:51)
--- NOTE | 2024-05-18 15:05 | CON ---
History Of Present Illness: This is a patient known to me from previous admission, coming in with re current urinary tract infection, was recently diagnosed with ESBL infection. The patient has an indw elling Dobson catheter, which keeps causing her reinfection. The patient denies any headache, nausea, vomiting, chest pain, abdominal pain, constipation, or diarrhea. Past Medical History: Diabetes mellitus, kidney stones, gastroesophageal reflux disease, hyperlipide francisco j, recurrent urinary tract infections. Social History: Nonsmoker, nondrinker. Family History: Noncontributory. Medications: Meropenem. See MARs for other medications. Allergies: NO KNOWN DRUG ALLERGIES. Review of Systems: A 10-point review was performed. Physical Examination: General: This is a 78-year-old female, lying in bed, not in any acute distress. Vital Signs: Temperature 98, pulse 90, respirations 16, blood pressure 149/70. HEENT: Unremarkable. Neck: Supple. Lungs: Clear to auscultation. Heart: S1, S2. Regular. Abdomen: Soft, nontender. Bowel sounds present. Extremities: No edema. Urine cultures are pending. Blood cultures are pending. Assessment And Plan: Pending culture results, continue current antibiotic. On discharge, patient ca n be switched to Macrobid to keep it suppressed. Continue Macrobid for 30 days. Follow up with urol ogist for possible suprapubic catheter. Monitor signs of infection with WBC and fever trends. NF/MODL Voice ID: [id number] Report ID: [id number]
[2024-05-18] MEDS: MAGNES/ALUMIN/SIMET 30ML UCUP PO PRN (19:13)
[2024-05-18] MEDS: ATORVASTATIN 40 MG TAB PO SCH (20:50)
[2024-05-19 07:07] LABS: Absolute Eosinophils 0.2 K/uL (0-0.5); Absolute Monocytes 0.5 K/uL (0.1-1.3); Absolute Neutrophil 2.5 K/uL (1.8-8.0); Basophils % 0.7 % (0-1.3); Eosinophils % 5.7 % (0-4.4); Hematocrit 35.6 % (36.0-45.0); Hemoglobin 11.8 g/dL (12.0-15.0); Lymphocytes % 24.1 % (15.3-44.8); MCH 28.1 pg (27.0-35.0); MCHC 33.2 g/dL (32.0-36.0); MCV 84.7 fL (80-100); Monocytes % 10.8 % (3.3-12.3); Neutrophils % 58.7 % (41.7-73.7); Platelets 205 thou/uL (152-406); RBC Red Blood Cell Count 4.21 M/uL (3.86-4.86); Red Cell Distribution Width 14.6 % (12.1-15.2)
[2024-05-19] MEDS: POTASSIUM CL SA 10 MEQ TAB PO ONE (08:53)
[2024-05-19] MEDS: FLUCONAZOLE 100 MG TAB PO SCH (08:53)
--- NOTE | 2024-05-19 10:26 | P.PN ---
Date of Service: 05/19/24 Subjective: continues with heartburn/reflux, minimal to no relief with current medications abdominal pain and heartburn worsened with intake vitals stable, afebrile. +nausea this morning continues with a burning sensation when having jose-catheter incontinence ROS: 10 point ROS as noted above, otherwise negative Physical Exam: GEN: Alert, oriented, NAD CV: Regular rate and rhythm, no edema ABD: soft, nontender, nondistended Neuro: Normal speech, normal affect Chronic nation in place Problem List: Fungal UTI Hx of Incontinence/Nephrolithiasis Hx recurrent UTIs / Hx of ESBL Acute abdominal pain Chronic gastritis / GERD Chronic recurrent Pancreatitis Chronic pain syndrome IDDM2 Dementia Depression/anxiety Hypertension BPH Fungal UTI Hx of Incontinence/Nephrolithiasis Hx recurrent UTIs / Hx of ESBL on admission, presents to ER per physician recommendation for ?ESBL UTI. Unclear what exactly grew and when culture was obtained. Will reach out to Dr. White's office regarding culture results/sensitivities Per OSH records, urine cx from 04/23/24 grew Proteus Mirabilis ESBL - sensitivities below. Urine culture from last hospitalization (for pancreatitis_ grew 4+ yeast. Treated with 5 days of IV merrem and was discharged on Diflucan/Levaquin (05/06) Has chronic nation in place; replaced ~2 weeks ago per patient merrem started in ER Blood cx (05/17): NGTD 05/18 - ID consulted 05/19 - oral diflucan added to cover yeast urine culture grew 3+ yeast, no bacteria. afebrile, no leukocytosis dc merrem no clear bacterial infxn, reports burning sensation when having jose-catheter incontinence. has chronic bladder spasms and incontinence, but burning sensation is new Acute abdominal pain Chronic gastritis / GERD Chronic recurrent Pancreatitis Protonix BID 05/18 - carafate, protonix, maalox added 05/19 - Reflux/Heartburn symptoms continues. Reports minimal to no relief with current medications. NPO for now. Okay for ice chips/sips of water CT abd/pelvis ordered to further evaluate check LFTs/lipase Chronic pain syndrome Pain control. Confirm home regimen. IDDM2 accu-cheks, SSI A1c 9.5 (per outside recs 04/23/2024) Dementia Depression/anxiety Hypertension BPH confirm home meds, restart as appropriate 05/18 Home amlodipine, cholecalciferol, lisinopril, and statin resumed VTE: Lovenox Code: Full Dispo: Home, 2 days Time Spent Managing Pts Care (In Minutes): 55
[2024-05-19 10:45] LABS: Albumin 2.6 g/dL (3.4-5.0); Albumin/Globulin Ratio 0.7 (1.1-1.8); Alkaline Phosphatase 85 U/L (45-117); Bilirubin Total 0.4 mg/dL (0.2-1.0); Globulin 3.8 g/dL (2.3-3.5); Lipase 65 U/L (13-75); Protein, Total 6.4 g/dL (6.4-8.2)
[2024-05-19 10:51] LABS: ALT/SGPT < 14 U/L (13-56); AST/SGOT 15 U/L (15-37); Bilirubin Direct < 0.2 mg/dL (0-0.2); Bilirubin Indirect, Calculated 0.2 mg/dL (0.2-0.8)
--- NOTE | 2024-05-19 11:24 | RAD REPORT ---
EXAMINATION: CT ABDOMEN AND PELVIS WITH CONTRAST CLINICAL INDICATION: epigastric pain, nausea, h/o pancreatitis TECHNIQUE: CT abdomen and pelvis was performed, after the administration of IV contrast, as per [facility] protocol. Axial, sagittal and coronal reconstructions were obtained. One or more of the following dose reduction techniques were used: Automated exposure control, adjustment of the mA and k V according to patient size, and iterative reconstruction. Unless otherwise specified, incidental findings do not require dedicated imaging follow-up. COMPARISON: 05/06/2024 FINDINGS: LOWER CHEST: The visualized lung bases are clear. Moderate hiatal hernia. LIVER: Mild fatty liver is present. No focal lesion or biliary dilatation is seen. Tiny focus of ai r in left lobe liver. Nonvisualized gallbladder. SPLEEN: Normal size. No focal lesion. PANCREAS: Atrophic changes involving the body and tail the pancreas. There is a slightly edematous ap pearance to the pancreatic head and uncinate process slight reticulation of the adjacent fat, mildly improved since comparison study. Mild edema affects the transverse duodenum. ADRENALS: Normal; no mass. KIDNEYS: Normal size and contour. No hydronephrosis. GASTROINTESTINAL TRACT: No evidence of free air, significant intra-abdominal free fluid, bowel obstru ction or abscess. There is moderate diverticulosis coli of the sigmoid colon without diverticulitis. Moderate stool retention noted. APPENDIX: Appendix not visualized, but no inflammatory changes in region of appendix. LYMPH NODES: No lymphadenopathy. MUSCULOSKELETAL: Moderate degenerative levoscoliosis. ADDITIONAL FINDINGS: Decompression of the urinary bladder by means of Dobson catheter. IMPRESSION: There is a subtle inflammatory and edematous appearance to the pancreatic head, uncinate process and adjacent duodenum. This can be seen in duodenitis or pancreatitis. Overall, the appearance is mildly improved since comparison study. Moderate hiatal hernia.
--- NOTE | 2024-05-19 14:45 | EKG ---
Test Date: 2024-05-17 Test Time: 16:56:29 Clam Shucker: MARITZA MEASUREMENT RESULTS: Intervals: Rate: 73 WI: 160 QRSD: 138 QT: 444 QTc: 489 [place]: P: 83 WI: 160 QRS: 15 T: 96 INTERPRETIVE STATEMENTS: Normal sinus rhythm Nonspecific intraventricular block T wave abnormality, consider lateral ischemia Abnormal ECG Compared to ECG 05/06/2024 15:27:58 Left-axis deviation no longer present T-wave abnormality still present Possible ischemia still present Electronically Signed On 05-19-24 14:41:44 CDT by Gautam Tompkins
[2024-05-20 06:56] LABS: Albumin 2.6 g/dL (3.4-5.0); Albumin/Globulin Ratio 0.7 (1.1-1.8); Alkaline Phosphatase 92 U/L (45-117); BUN Blood Urea Nitrogen 7 mg/dL (7-18); Bicarbonate 26 mEq/L (21-32); Bilirubin Total 0.4 mg/dL (0.2-1.0); Globulin 3.9 g/dL (2.3-3.5); Glomerular Filtration Rate 77 ml/min (=/>90); Glucose Level 133 mg/dL (74-106); Lipase 50 U/L (13-75); Magnesium 2.2 mg/dL (1.6-2.4); Protein, Total 6.5 g/dL (6.4-8.2); Sodium Level 139 mEq/L (136-145)
[2024-05-20 07:01] LABS: ALT/SGPT < 14 U/L (13-56); AST/SGOT < 10 U/L (15-37)
[2024-05-20] MEDS ORDERED: PHENAZOPYRIDINE 100MG TAB PO PRN (07:15)
--- NOTE | 2024-05-20 10:59 | P.PN ---
Date of Service: 05/20/24 Subjective: heartburn significantly improved this morning. feeling some improvement overall denies any new / worsening problems afebrile ROS: 10 point ROS as noted above, otherwise negative Physical Exam: GEN: Alert, oriented, NAD CV: Regular rate and rhythm, no edema ABD: soft, mildly TTP in epigastrium, nondistended Neuro: Normal speech, normal affect Chronic nation in place Problem List: dysuria Hx of Incontinence/Nephrolithiasis Hx recurrent UTIs / Hx of ESBL Acute abdominal pain Chronic gastritis / GERD Chronic recurrent Pancreatitis Chronic pain syndrome IDDM2 Dementia Depression/anxiety Hypertension BPH dysuria Hx of Incontinence/Nephrolithiasis Hx recurrent UTIs / Hx of ESBL on admission, presents to ER per physician recommendation for ESBL UTI. Per OSH records, urine cx from 04/23/24 grew Proteus Mirabilis ESBL - sensitivities below. Urine culture from last hospitalization (for pancreatitis- grew 4+ yeast. Treated with 5 days of IV merrem and was discharged on Diflucan/Levaquin (05/06) Has chronic nation in place; replaced ~2 weeks ago per patient merrem started in ER Blood cx (05/17): NGTD 05/18 - ID consulted 05/19 - oral diflucan added to cover yeast urine culture grew 3+ yeast, no bacteria. dc merrem given no bacterial growth. no clear bacterial infxn, reports burning sensation when having jose-catheter incontinence. has chronic bladder spasms and incontinence, but burning sensation is new 05/20 - Stable. Doesn't feel worse. dc oral diflucan (05/19-) monitor for fever/leukocytosis / worsening symptoms symptoms seem to be chronic; no clear evidence of infection, stop antibacterial / antifungal and monitor Acute abdominal pain Chronic gastritis / GERD Chronic recurrent Pancreatitis Protonix BID 05/18 - carafate, protonix, maalox added 05/19 - Reflux/Heartburn symptoms continues. Reports minimal to no relief with current medications. Made NPO given concern for possible pancreatitis flare up; advanced to full liquids for dinner CT abd/pelvis: Subtle inflammatory and edematous appearance to pancreatic head, overall improved compared to prior study. Trend LFTs/lipase 05/20 - Heartburn improved. Tolerating liquid diet. LFTs/lipase wnl. home Pyridium/Bentyl restarted Chronic pain syndrome Pain control. Confirm home regimen. IDDM2 accu-cheks, SSI A1c 9.5 (per outside recs 04/23/2024) Dementia Depression/anxiety Hypertension BPH 05/18 Home amlodipine, cholecalciferol, lisinopril, and statin resumed VTE: Lovenox Code: Full Dispo: Home, ~1-2 days Time Spent Managing Pts Care (In Minutes): 45
[2024-05-20 23:40] VITALS: O2SAT 96
[2024-05-21 09:39] LABS: Absolute Eosinophils 0.2 K/uL (0-0.5); Absolute Lymphocytes (CBC) 1.8 K/uL (0.7-4.9); Absolute Monocytes 0.5 K/uL (0.1-1.3); Absolute Neutrophil 3.3 K/uL (1.8-8.0); Basophils % 0.9 % (0-1.3); Eosinophils % 3.9 % (0-4.4); Hemoglobin 12.5 g/dL (12.0-15.0); Lymphocytes % 30.5 % (15.3-44.8); MCH 28.3 pg (27.0-35.0); MCHC 33.8 g/dL (32.0-36.0); MCV 83.6 fL (80-100); MPV 8.3 fL (7.6-11.3); Monocytes % 8.6 % (3.3-12.3); Neutrophils % 56.1 % (41.7-73.7); Platelets 221 thou/uL (152-406); RBC Red Blood Cell Count 4.42 M/uL (3.86-4.86); Red Cell Distribution Width 14.4 % (12.1-15.2)
[2024-05-21 09:54] LABS: Albumin 2.9 g/dL (3.4-5.0); Albumin/Globulin Ratio 0.7 (1.1-1.8); Anion Gap 10.1 mEq/L (5.0-15.0); Bilirubin Total 0.4 mg/dL (0.2-1.0); Magnesium 2.1 mg/dL (1.6-2.4); Phosphorus 2.6 mg/dL (2.5-4.9); Potassium 4.1 mEq/L (3.5-5.1); Protein, Total 6.9 g/dL (6.4-8.2)
[2024-05-21] MEDS: DICYCLOMINE HCL 10 MG CAP PO PRN (09:58)
--- NOTE | 2024-05-21 10:58 | P.PN ---
Date of Service: 05/21/24 Subjective: denies any new / worsening problems improving afebrile ROS: 10 point ROS as noted above, otherwise negative Physical Exam: GEN: Alert, oriented, NAD CV: Regular rate and rhythm, no edema ABD: soft, minimal TTP in epigastrium, nondistended Neuro: Normal speech, normal affect Chronic nation in place Problem List: dysuria Hx of Incontinence/Nephrolithiasis Hx recurrent UTIs / Hx of ESBL Acute abdominal pain Chronic gastritis / GERD Chronic recurrent Pancreatitis Chronic pain syndrome IDDM2 Dementia Depression/anxiety Hypertension BPH dysuria Hx of Incontinence/Nephrolithiasis Hx recurrent UTIs / Hx of ESBL on admission, presents to ER per physician recommendation for ESBL UTI. Per OSH records, urine cx from 04/23/24 grew Proteus Mirabilis ESBL - sensitivities below. Urine culture from last hospitalization (for pancreatitis- grew 4+ yeast. Treated with 5 days of IV merrem and was discharged on Diflucan/Levaquin (05/06) Has chronic nation in place; replaced ~2 weeks ago per patient merrem started in ER Blood cx (05/17): NGTD 05/18 - ID consulted 05/19 - oral diflucan added to cover yeast urine culture grew 3+ yeast, no bacteria. dc merrem given no bacterial growth. no clear bacterial infxn, reports burning sensation when having jose-catheter incontinence. has chronic bladder spasms and incontinence, but burning sensation is new 05/20 - Stable. Doesn't feel worse. dc oral diflucan (05/19-05/20) monitor for fever/leukocytosis / worsening symptoms symptoms seem to be chronic; no clear evidence of infection, stop antibacterial / antifungal and monitor 05/21 - Labs and Vitals stable off abx/antifungal. Afebrile, no leukocytosis. continue to monitor off abx/antifungal, possible dc tomorrow Acute abdominal pain Chronic gastritis / GERD Chronic recurrent Pancreatitis Protonix BID 05/18 - carafate, protonix, maalox added 05/19 - Reflux/Heartburn symptoms continues. Reports minimal to no relief with current medications. Made NPO given concern for possible pancreatitis flare up; advanced to full liquids for dinner CT abd/pelvis: Subtle inflammatory and edematous appearance to pancreatic head, overall improved compared to prior study. Trend LFTs/lipase 05/20 - Heartburn improved. Tolerating liquid diet. LFTs/lipase wnl. home Pyridium/Bentyl restarted 05/21 - Stable. Tolerating diet. continue carafate, ppi Chronic pain syndrome Pain control. Confirm home regimen. IDDM2 accu-cheks, SSI A1c 9.5 (per outside recs 04/23/2024) Dementia Depression/anxiety Hypertension BPH 05/18 Home amlodipine, cholecalciferol, lisinopril, and statin resumed VTE: Lovenox Code: Full Dispo: Home, ~1 day Time Spent Managing Pts Care (In Minutes): 45
[2024-05-21] MEDS ORDERED: GUAIFENESIN/DM 5 ML UCUP PO PRN (21:27)
[2024-05-22 05:49] LABS: Absolute Basophils 0.1 K/uL (0-0.5); Absolute Eosinophils 0.2 K/uL (0-0.5); Absolute Lymphocytes (CBC) 2.2 K/uL (0.7-4.9); Absolute Monocytes 0.7 K/uL (0.1-1.3); Absolute Neutrophil 3.4 K/uL (1.8-8.0); Eosinophils % 2.8 % (0-4.4); Hematocrit 36.8 % (36.0-45.0); Hemoglobin 12.4 g/dL (12.0-15.0); Lymphocytes % 33.9 % (15.3-44.8); MCH 28.3 pg (27.0-35.0); MCHC 33.7 g/dL (32.0-36.0); MCV 83.9 fL (80-100); MPV 8.1 fL (7.6-11.3); Neutrophils % 52.3 % (41.7-73.7); Nucleated Red Blood Cells % 0.1 % (0-0); Platelets 230 thou/uL (152-406); RBC Red Blood Cell Count 4.38 M/uL (3.86-4.86); Red Cell Distribution Width 14.5 % (12.1-15.2)
[2024-05-22 08:07] VITALS: BP 140/65; TEMP 97.8
--- NOTE | 2024-05-22 08:14 | P.DS ---
Admission Date: 05/17/24 Discharge Date: 05/22/24 Disposition: DC HOME/HOME HEALTH CARE Discharge Condition: GOOD Reason for Admission: UTI Consultations: ID - Dr. Kwan Brief History of Present Illness: 78 yo F, PMH: anxiety, hiatal hernia, GERD, diabetes, hypertension, kidney stones, pancreatitis Patient who was sent to ER as she was found to have UTI with ESBL and was advised to come to ER for further management. Patient denies any fever or chills. No nausea vomiting diarrhea. No chest pain or shortness of breath. No sick contacts. Patient was assessed in the ER and is admitted for further management of ESBL UTI Hospital Course: Problem List: Dysuria, improved Hx of Incontinence/Nephrolithiasis Hx recurrent UTIs / Hx of ESBL Chronic gastritis / GERD Chronic recurrent Pancreatitis Chronic pain syndrome IDDM2 Dementia Depression/anxiety Hypertension BPH Physician discharge instructions: Patient presented to ER per PCP recommendation for reported UTI with ESBL organism. IV merrem was started in the ER given uncertainty of organism/sensitivities. After reviewing OSH records and discussing case with patient's PCP, her urine cx from 04/23/24 grew Proteus Mirabilis ESBL. However she was just recently hospitalized from 05/06-05/10, and urine culture at the time grew 4+ yeast, no bacteria. She was treated with 5 days of IV merrem at the time and was discharged on oral Diflucan/Levaquin. Due to the uncertaintly, IV diflucan was initially started 05/19 given recent culture grew 4+ yeast from 04/23. Urine culture from 05/17 grew 3+ yeast, no bacteria. Infectious Disease, Dr. Kwan, was consulted who recommended prophylactic macrobid - Nitrofurantoin for 30 days.. Antibiotics and antifungal were stopped as there was no clear evidence of infection and patient continued to improve. She remained afebrile without leukocytosis throughout hospitalization after stopping treatment, and her symptoms resolved. Her symptoms seem to be chronic. She reports burning sensation when having jose- catheter incontinence and has chronic bladder spasms and incontinence. No evidence of active infection at this time. Briefly discussed case with Dr. Garcia who shared patient's medical history and symptom history with me. Recommended to follow up with him as outpatient for further management. Patient reported having a follow up appointment already scheduled in 2 days. The day after admission, she did report new/worsening heartburn / reflux symptoms with some epigastric tenderness. She initially felt minimal relief with carafate, maalox, and protonix. Patient was briefly made NPO 05/19 given the concern for possible pancreatitis flare up. CT abdomen noted subtle inflammatory and edematous appearance to pancreatic head, overall improved compared to prior study ~2 weeks ago. Diet was advanced 05/[address] imaging and normal LFTs/lipase and improvement of symptoms. LFTs and lipase remained within normal limits throughout hospitalization She reported significant improvement of heartburn on 05/20 and was further advanced. She reported history of gastritis/gastric ulcer, recommended follow up with GI in near future, and to continue taking omeprazole as previously prescribed. Medications: Carafate Nitrofurantoin x30 days for prophylaxis Follow up: PCP 3-5 days PCP within 3-[address] Garcia, urology. Patient reports having upcoming follow up already scheduled. GI 2-4 weeks Please call to schedule / confirm appointments Physical Exam: GEN: Alert, oriented, NAD CV: Regular rate and rhythm, no edema ABD: soft, nontender, nondistended Neuro: Normal speech, normal affect Chronic nation in place Vital Signs/Physical Exam: Temp Pulse Resp BP Pulse Ox 97.8 F 63 16 140/65 95 05/22/24 08:00 05/22/24 08:00 05/22/24 08:00 05/22/24 08:00 05/22/24 08:00 Laboratory Data at Discharge: WBC 6.50 thou/uL (4.3-10.9) 05/22/24 05:31 Hgb 12.4 g/dL (12.0-15.0) 05/22/24 05:31 Hct 36.8 % (36.0-45.0) 05/22/24 05:31 Plt Count 230 thou/uL (152-406) 05/22/24 05:31 PT 12.3 SECONDS (10-13.0) 05/17/24 17:45 INR 1.08 05/17/24 17:45 APTT 31.4 SECONDS (27.2-37.4) 05/17/24 17:45 Sodium 138 mEq/L (136-145) 05/22/24 05:31 Potassium 4.0 mEq/L (3.5-5.1) 05/22/24 05:31 BUN 14 mg/dL (7-18) 05/22/24 05:31 Creatinine 0.74 mg/dL (0.55-1.02) 05/22/24 05:31 Glucose 160 mg/dL (74-106) H 05/22/24 05:31 Phosphorus 2.6 mg/dL (2.5-4.9) 05/21/24 09:28 Magnesium 2.0 mg/dL (1.6-2.4) 05/22/24 05:31 Total Bilirubin 0.4 mg/dL (0.2-1.0) 05/21/24 09:28 AST 14 U/L (15-37) L 05/21/24 09:28 ALT 17 U/L (13-56) 05/21/24 09:28 Alkaline Phosphatase 102 U/L (45-117) 05/21/24 09:28 Lipase 55 U/L (13-75) 05/21/24 09:28 Home Medications: Metformin HCl 1,000 mg PO BID 02/24/23 Amlodipine [Norvasc*] 5 mg PO DAILY 30 Days #30 tab 07/02/23 lisinopriL [Prinivil*] 5 mg PO DAILY 30 Days #30 tab 07/02/23 Atorvastatin Calcium 40 mg PO BEDTIME 12/14/23 Solifenacin [Vesicare*] 10 mg PO DAILY 12/14/23 Hydrocodone 5/APAP 325 [[place] 5/325*] 1 tab PO Q8H PRN #10 tab 12/18/23 Pantoprazole [Protonix Tab*] 40 mg PO BID #44 tab 12/18/23 Cholecalciferol (Vitamin D3) [Vitamin D 5,000 IU Cap*] 5,000 unit PO DAILY 05/07/24 Insulin Glargine-Yfgn [Semglee (Yfgn) Pen] 7 unit SQ SEECOM 05/07/24 Phenazopyrididine [Pyridium*] 100 mg PO TID PRN 5 Days #8 tab 05/10/24 Diazepam [Valium] 5 mg PO 05/17/24 Dicyclomine [Bentyl*] 20 mg PO PRN 05/17/24 Famotidine 40 mg PO 05/17/24 Nitrofurantoin Monohyd/M-Cryst [Macrobid 100 mg Capsule] 100 mg PO DAILY 30 Days #30 tab 05/22/24 Sucralfate [Carafate*] 1 tab PO TIDWM 30 Days #90 tab 05/22/24 New Medications: Sucralfate [Carafate*] 1 tab PO TIDWM 30 Days #90 tab Nitrofurantoin Monohyd/M-Cryst [Macrobid 100 mg Capsule] 100 mg PO DAILY 30 Days #30 tab Physician Discharge Instructions: Physician discharge instructions: Patient presented to ER per PCP recommendation for reported UTI with ESBL organism. IV merrem was started in the ER given uncertainty of organism/sensitivities. After reviewing OSH records and discussing case with patient's PCP, her urine cx from 04/23/24 grew Proteus Mirabilis ESBL. However she was just recently hospitalized from 05/06-05/10, and urine culture at the time grew 4+ yeast, no bacteria. She was treated with 5 days of IV merrem at the time and was discharged on oral Diflucan/Levaquin. Due to the uncertaintly, IV diflucan was initially started 05/19 given recent culture grew 4+ yeast from 04/23. Urine culture from 05/17 grew 3+ yeast, no bacteria. Infectious Disease, Dr. Kwan, was consulted who recommended prophylactic macrobid - Nitrofurantoin for 30 days.. Antibiotics and antifungal were stopped as there was no clear evidence of infection and patient continued to improve. She remained afebrile without leukocytosis throughout hospitalization after stopping treatment, and her symptoms resolved. Her symptoms seem to be chronic. She reports burning sensation when having jose- catheter incontinence and has chronic bladder spasms and incontinence. No evidence of active infection at this time. Briefly discussed case with Dr. Garcia who shared patient's medical history and symptom history with me. Recommended to follow up with him as outpatient for further management. Patient reported having a follow up appointment already scheduled in 2 days. The day after admission, she did report new/worsening heartburn / reflux symptoms with some epigastric tenderness. She initially felt minimal relief with carafate, maalox, and protonix. Patient was briefly made NPO 05/19 given the concern for possible pancreatitis flare up. CT abdomen noted subtle inflammatory and edematous appearance to pancreatic head, overall improved compared to prior study ~2 weeks ago. Diet was advanced 05/[address] imaging and normal LFTs/lipase and improvement of symptoms. LFTs and lipase remained within normal limits throughout hospitalization She reported significant improvement of heartburn on 05/20 and was further advanced. She reported history of gastritis/gastric ulcer, recommended follow up with GI in near future, and to continue taking omeprazole as previously prescribed. Medications: Carafate Nitrofurantoin x30 days for prophylaxis Follow up: PCP 3-5 days PCP within 3-[address] Garcia, urology. Patient reports having upcoming follow up already scheduled. GI 2-4 weeks Please call to schedule / confirm appointments Followup: Mariam White MD [Primary Care Provider] - Time spent managing pt's care (in minutes): 45
== END 2024-05-22 10:28 | disposition home health service (06) | DRG 690 ==
LOC: ER 15:31 → ERHOLD 19:28 → 2ND 21:29
PROVIDERS: ADMIT Family Medicine; ATTEND Hospitalist
DX: N39.0 Urinary tract infection, site not specified (principal); Z16.12 Extended spectrum beta lactamase (ESBL) resistance; E87.20 Acidosis, unspecified; K86.1 Other chronic pancreatitis; F03.94 Unspecified dementia, unspecified severity, with anxiety; F03.93 Unspecified dementia, unspecified severity, with mood disturbance; I10 Essential (primary) hypertension; G89.4 Chronic pain syndrome; E11.9 Type 2 diabetes mellitus without complications; K21.9 Gastro-esophageal reflux disease without esophagitis; K29.50 Unspecified chronic gastritis without bleeding; Z60.2 Problems related to living alone; Z79.4 Long term (current) use of insulin; Z90.49 Acquired absence of other specified parts of digestive tract; Z90.710 Acquired absence of both cervix and uterus; Z87.891 Personal history of nicotine dependence; Z79.84 Long term (current) use of oral hypoglycemic drugs; Z79.890 Hormone replacement therapy; Z79.899 Other long term (current) drug therapy
CPT/HCPCS: 36415; 74177; 80048; 80053; 80076; 81001; 82947; 83605; 83690; 83735; 84100; 85025; 85610; 85730; 87040; 87086; 87088; 93005; 96365; 99285; J0360; J1650; J1815; J2185; J2405; J7030; Q9967

== ENCOUNTER 2024-06-02 21:21 | Emergency (ER) | payer OTHER ==
[2024-06-02] MEDS ORDERED: Meropenem 1000 MG/VIAL IV ONE (21:54)
[2024-06-02] MEDS ORDERED: ONDANSETRON 4 MG/2 ML VIAL ONE (21:54)
[2024-06-02] MEDS ORDERED: FAMOTIDINE 20 MG/2 ML VIAL IV ONE (21:55)
[2024-06-02] MEDS ORDERED: MORPHINE 4 MG/ML SYR ONE (21:55)
[2024-06-02] MEDS ORDERED: NA CHLORIDE 0.9% 1,000 ML ONE (21:55)
[2024-06-02] MEDS ORDERED: NA CHLORIDE 0.9% 100 ML ONE (21:55)
[2024-06-02 22:36] LABS: Absolute Basophils 0.1 K/uL (0-0.5); Absolute Eosinophils 0.1 K/uL (0-0.5); Absolute Lymphocytes (CBC) 2.3 K/uL (0.7-4.9); Absolute Monocytes 0.6 K/uL (0.1-1.3); Absolute Neutrophil 5.5 K/uL (1.8-8.0); Basophils % 1.5 % (0-1.3); Eosinophils % 1.5 % (0-4.4); Hematocrit 41.4 % (36.0-45.0); MCH 28.1 pg (27.0-35.0); MCHC 33.9 g/dL (32.0-36.0); MCV 82.8 fL (80-100); MPV 8.5 fL (7.6-11.3); Monocytes % 6.6 % (3.3-12.3); Neutrophils % 63.4 % (41.7-73.7); Nucleated Red Blood Cells % 0.1 % (0-0); Platelets 242 thou/uL (152-406); Red Cell Distribution Width 14.7 % (12.1-15.2)
[2024-06-02 23:28] LABS: Albumin 3.6 g/dL (3.4-5.0); Albumin/Globulin Ratio 0.8 (1.1-1.8); Anion Gap 14.8 mEq/L (5.0-15.0); Bilirubin Total 0.6 mg/dL (0.2-1.0); Globulin 4.6 g/dL (2.3-3.5); Potassium 3.8 mEq/L (3.5-5.1); Protein, Total 8.2 g/dL (6.4-8.2)
--- NOTE | 2024-06-03 00:47 | ER ---
Nurse's Notes [facility] Name: Isadora Bettencourt Age: 78 yrs Sex: Female : 1945 Arrival Date: 06/02/2024 Time: 21:21 Bed 2 Private MD: Diagnosis: Other mechanical complication of urinary (indwelling) catheter;Dysuria Presentation: 06/02 21:52 Chief complaint: Patient states: spasmi ng pain in urethra since yesterday. Coronavirus bm8 screen: At this time, the client does not indicate any symptoms associated with coronavirus-19. Ebola Screen: Patient negative for fever greater than or equal to 101.5 degrees Fahrenheit, and additional compatible Ebola Virus Disease symptoms Patient denies exposure to infectious person. Patient denies travel to an Ebola-affected area in the 21 days before illness onset. No symptoms or risks identified at this time. Initial Sepsis Screen: Does the patient meet any 2 criteria? No. Patient's initial sepsis screen is negative. Risk Assessment: Do you want to hurt yourself or someone else? Patient reports no desire to harm self or others. 21:52 Method Of Arrival: EMS: [facility] bm8 21:52 Acuity: FRANDY 2 bm8 Triage Assessment: 21:31 General: Appears in no apparent distress. comfortable, Behavior is calm, cooperative, bm8 appropriate for age. Pain: Complains of pain in groin and suprapubic area Pain currently is 9 out of 10 on a pain scale. : Reports burning with urination, pain with urination, Pain is 9 out of 10 on a pain scale. urinary frequency. 21:55 General: Appears in no apparent distress. uncomfortable, Behavior is calm, cooperative, bm8 appropriate for age. Pain: Complains of pain in pelvis and suprapubic area and groin Pain currently is 10 out of 10 on a pain scale. : Reports pain in suprapubic area Pain is 10 out of 10 on a pain scale. pain around urinary cath. and I was peeing around the cath. Historical: - Allergies: 21:55 No Known Allergies; bm8 - Home Meds: 21:55 Unable to obtain [Active]; bm8 - PMHx: 21:55 Unable to Obtain; bm8 - PSHx: 21:55 Unable to Obtain; bm8 - Immunization history:: Adult Immunizations up to date, Adult Immunizations up to date. - Infectious Disease History:: Denies. Denies. - Social history:: Smoking status: Patient denies any tobacco usage or history of. Smoking status: Patient denies any tobacco usage or history of. - Family history:: not pertinent. Screenin/29 00:25 [facility] ED Fall Risk Assessment (Adult) History of falling in the last 3 months, jb4 including since admission No falls in past 3 months (0 pts) Confusion or Disorientation No (0 pts) Intoxicated or Sedated No (0 pts) Impaired Gait No (0 pts) Mobility Assist Device Used No (0 pt) Altered Elimination No (0 pt) Score/Fall Risk Level 0 - 2 = Low Risk. Abuse screen: Denies threats or abuse. Nutritional screening: No deficits noted. Tuberculosis screening: No symptoms or risk factors identified. Assessment: 06/02 22:30 General: Appears in no apparent distress. uncomfortable, Behavior is calm, cooperative, jb4 appropriate for age. Pain: Complains of pain in groin Pain does not radiate. Pain currently is 8 out of 10 on a pain scale. Quality of pain is described as crampy. Neuro: Level of Consciousness is awake, alert, obeys commands, Oriented to person, place, time, situation. Cardiovascular: Patient's skin is warm and dry. Respiratory: Airway is patent Respiratory effort is even, unlabored, Respiratory pattern is regular, symmetrical. : Dobson in place to gravity drainage. Derm: Skin is intact, Skin is pink, warm \T\ dry. Musculoskeletal: Circulation, motion, and sensation intact. Range of motion: intact in all extremities. 06/03 00:00 Reassessment: Patient appears in no apparent distress at this time. Patient and/or jb4 family updated on plan of care and expected duration. Pain level reassessed. Patient is alert, oriented x 3, equal unlabored respirations, skin warm/dry/pink. Vital Signs: 06/02 21:52 BP 160 / 107; Pulse 98; Resp 18; Temp 97.1; Pulse Ox 97% ; Weight 70.76 kg; Height 5 bm8 ft. 1 in. ; Pain 10/10; 06/03 00:00 BP 159 / 87; Pulse 82; Resp 16; Pulse Ox 96% ; jb4 01:14 BP 142 / 78; Pulse 84; Resp 16; Pulse Ox 96% ; cp4 06/02 21:52 Body Mass Index 29.48 (70.76 kg, 154.94 cm) bm8 06/02 21:52 Pain Scale: Adult bm8 ED Course: 06/02 21:22 Patient arrived in ED. jj6 21:31 Triage completed. bm8 21:31 Arm band placed on right wrist. bm8 21:40 Anthony Kaminski MD is Attending Physician. james 21:55 Arm band placed on right wrist. bm8 22:30 No provider procedures requiring assistance completed. Initial lab(s) drawn, by ri, jb4 sent to lab. Inserted saline lock: 24 gauge in right wrist, using aseptic technique. Blood collected. 23:22 All Avila, SHARMAINE is Primary Nurse. jb4 06/03 00:25 Patient has correct armband on for positive identification. Bed in low position. Call jb4 light in reach. Side rails up X 1. Provided Education on: plan of care. 00:46 Jonh Garcia MD is Referral Physician. james 01:13 Dobson cath inserted, using sterile technique, 18 Fr., by software project engineer, balloon inflated, cp4 Patient tolerated well. 01:31 intact, bleeding controlled, No redness/swelling at site. Pressure dressing applied. cp4 Administered Medications: 00:07 Drug: Famotidine IVP 20 mg IVP once; dilute with 10 mL 0.9% NaCl; give over 2 minutes cp4 Route: IVP; Site: right wrist; 01:29 Follow up: Response: No adverse reaction cp4 00:07 Drug: Ondansetron IVP 4 mg IVP once; over 2 minutes Route: IVP; Site: right wrist; cp4 01:30 Follow up: Response: No adverse reaction cp4 00:07 Drug: NS 0.9% IV 1000 ml IV at 1 bolus Per protocol; to be given as a bolus over 60 cp4 minutes Route: IV; Rate: 1 bolus; Site: right wrist; :29 Follow up: IV Status: Completed infusion cp4 00:07 Drug: Meropenem IV 1 grams IV at per protocol once; (mix in NS 100 mL) Route: IV; Rate: cp4 per protocol; Site: right wrist; 00:08 Drug: morphine IVP or IV 4 mg IVP once over 4 mins Route: IVP; Infused Over: 4 mins; cp4 Site: right wrist; 01:30 Follow up: Response: No adverse reaction cp4 Medication: :31 VIS not applicable for this client. cp4 Outcome: 00:47 Discharge ordered by . james 01:31 Discharged to home via wheelchair, cp4 01:31 Condition: stable 01:31 Discharge instructions given to patient, Instructed on discharge instructions, follow up and referral plans. medication usage, Demonstrated understanding of instructions, follow-up care, medications, Prescriptions given X 2, 01:32 Patient left the ED. cp4 Signatures: Anthnoy Kaminski MD MD cha Bryson, James, RN RN jb4 Padmini Rivera Christina cp4 Hugh Stewart, RN RN bm8 Corrections: (The following items were deleted from the chart) 06/02 21:54 21:29 Chief complaint: Patient states: I have burning urinary pain that started two bm8 days ago. I have been taking an antibiotic but it does seem to be working bm8 :54 21:29 Coronavirus screen: At this time, the client does not indicate any symptoms bm8 associated with coronavirus-19. 8 :54 21:29 Ebola Screen: Patient negative for fever greater than or equal to 101.5 degrees bm8 Fahrenheit, and additional compatible Ebola Virus Disease symptoms Patient denies exposure to infectious person. Patient denies travel to an Ebola-affected area in the 21 days before illness onset. No symptoms or risks identified at this time. 8 :54 21:29 Initial Sepsis Screen: Does the patient meet any 2 criteria? No. Patient's bm8 initial sepsis screen is negative. Does the patient have a suspected source of infection? No. Patient's initial sepsis screen is negative. 8 :54 21:29 Risk Assessment: Do you want to hurt yourself or someone else? Patient reports no bm8 desire to harm self or others. 8 :54 21:29 Onset of symptoms was May 31, 2024 at 08:00 [facility] 54 21:29 Method Of Arrival: Ambulatory [facility] 54 21:29 BP 143 / 70; Pulse 93bpm; Resp 18bpm; Pulse Ox 95%; Temp 97.3F; 90.72 kg; Height bm8 5 ft. 7 in.; BMI: 31.3; Pain 9/10, Adult; bm8 21:54 21:29 Acuity: FRANDY 3 bm8 bm8 21:56 21:31 Allergies: Levaquin; bm8 bm8 21:56 21:31 Allergies: Zithromax; bm8 bm8 21:56 21:31 Allergies: Vicodin; bm8 bm8 21:56 21:31 Home Meds: atorvastatin 20 mg oral tablet 1 tab every day at bedtime; bm8 bm8 21:56 21:31 Home Meds: prednisone 5 mg Oral tablet 1 tab 2 times per day; bm8 bm8 21:56 21:31 Home Meds: Advair Diskus 100-50 mcg/dose Inhl Blister, With Inhalation Device 1 bm8 inhalation 2 times per day; bm8 21:56 21:31 Home Meds: ibandronate 150 mg oral tablet 1 tab every month; bm8 bm8 21:56 21:31 Home Meds: aspirin 81 mg Oral capsule 1 cap daily; bm8 bm8 21:56 21:31 Home Meds: levothyroxine 112 mcg capsule 1 cap daily; bm8 bm8 21:56 21:31 Home Meds: Macrobid 100 mg Oral capsule 1 cap daily; bm8 bm8 21:56 21:31 Home Meds: amlodipine 5 mg oral tablet 1 tab daily; bm8 bm8 21:56 21:31 PMHx: Anxiety; bm8 bm8 21:56 21:31 PMHx: diabetes mellitus; bm8 bm8 21:56 21:31 PMHx: hiatal hernia; bm8 bm8 21:56 21:31 PMHx: Hypertension; bm8 bm8 21:56 21:31 PMHx: Kidney stones; bm8 bm8 21:56 21:31 PMHx: Pancreatitis; bm8 bm8 21:56 21:31 PSHx: Appendectomy; bm8 bm8 21:56 21:31 PSHx: back; bm8 bm8 21:56 21:31 PSHx: Bladder; bm8 bm8 :56 21:31 PSHx: Cholecystectomy; bm8 bm8 21:56 21:31 PSHx: knee; bm8 bm8 21:56 21:31 PSHx: Total abdominal hysterectomy; bm8 bm8 21:56 21:31 PSHx: wrist; bm8 bm8
--- NOTE | 2024-06-03 00:47 | EDPHYS ---
Physician Documentation [facility] Name: Isadora Bettencourt Age: 78 yrs Sex: Female : 1945 Arrival Date: 06/02/2024 Time: 21:21 Bed 2 Private MD: NEHEMIAS Physician Anthony Kaminski HPI: 06/03 00:42 This 78 yrs old Female presents to ER via EMS with complaints of Pelvic Pain. james 00:42 The patient presents with urinary symptoms, dysuria, frequency. Onset: The james symptoms/episode began/occurred. Modifying factors: The symptoms are alleviated by nothing, the symptoms are aggravated by nothing. Associated signs and symptoms: The patient has no apparent associated signs or symptoms. Associated signs and symptoms: Pertinent positives: cramping. The patient is not sexually active. The patient has experienced similar episodes in the past, multiple times. Historical: - Allergies: 06/02 21:55 No Known Allergies; bm8 - Home Meds: 21:55 Unable to obtain [Active]; bm8 - PMHx: 21:55 Unable to Obtain; bm8 - PSHx: 21:55 Unable to Obtain; bm8 - Immunization history:: Adult Immunizations up to date, Adult Immunizations up to date. - Infectious Disease History:: Denies. Denies. - Social history:: Smoking status: Patient denies any tobacco usage or history of. Smoking status: Patient denies any tobacco usage or history of. - Family history:: not pertinent. ROS: 06/03 00:42 Constitutional: Negative for fever, chills, and weight loss, Eyes: Negative for injury, james pain, redness, and discharge, ENT: Negative for injury, pain, and discharge, Neck: Negative for injury, pain, and swelling, Cardiovascular: Negative for chest pain, palpitations, and edema, Respiratory: Negative for shortness of breath, cough, wheezing, and pleuritic chest pain, Abdomen/GI: Negative for abdominal pain, nausea, vomiting, diarrhea, and constipation, Back: Negative for injury and pain, MS/Extremity: Negative for injury and deformity, Skin: Negative for injury, rash, and discoloration, Neuro: Negative for headache, weakness, numbness, tingling, and seizure, Psych: Negative for depression, anxiety, suicide ideation, homicidal ideation, and hallucinations, Allergy/Immunology: Negative for hives, rash, and allergies, Endocrine: Negative for neck swelling, polydipsia, polyuria, polyphagia, and marked weight changes, : Positive for urinary symptoms, pelvic pain, burning with urination, nation pain , urine aroun nation, Exam: 00:45 Constitutional: This is a well developed, well nourished patient who is awake, alert, james and in no acute distress. Head/Face: Normocephalic, atraumatic. Eyes: Pupils equal round and reactive to light, extra-ocular motions intact. Lids and lashes normal. Conjunctiva and sclera are non-icteric and not injected. Cornea within normal limits. Periorbital areas with no swelling, redness, or edema. ENT: Nares patent. No nasal discharge, no septal abnormalities noted. Tympanic membranes are normal and external auditory canals are clear. Oropharynx with no redness, swelling, or masses, exudates, or evidence of obstruction, uvula midline. Mucous membranes moist. Neck: Trachea midline, no thyromegaly or masses palpated, and no cervical lymphadenopathy. Supple, full range of motion without nuchal rigidity, or vertebral point tenderness. No Meningismus. Chest/axilla: Normal chest wall appearance and motion. Nontender with no deformity. No lesions are appreciated. Cardiovascular: Regular rate and rhythm with a normal S1 and S2. No gallops, murmurs, or rubs. Normal PMI, no JVD. No pulse deficits. Respiratory: Lungs have equal breath sounds bilaterally, clear to auscultation and percussion. No rales, rhonchi or wheezes noted. No increased work of breathing, no retractions or nasal flaring. Abdomen/GI: Soft, non-tender, with normal bowel sounds. No distension or tympany. No guarding or rebound. No evidence of tenderness throughout. Back: No spinal tenderness. No costovertebral tenderness. Full range of motion. Female : Normal external genitalia. Skin: Warm, dry with normal turgor. Normal color with no rashes, no lesions, and no evidence of cellulitis. MS/ Extremity: Pulses equal, no cyanosis. Neurovascular intact. Full, normal range of motion., bilateral aka Neuro: Awake and alert, GCS 15, oriented to person, place, time, and situation. Cranial nerves II-XII grossly intact. Motor strength 5/5 in all extremities. Sensory grossly intact. Cerebellar exam normal. Normal gait. Psych: Awake, alert, with orientation to person, place and time. Behavior, mood, and affect are within normal limits. Vital Signs: 06/02 21:52 BP 160 / 107; Pulse 98; Resp 18; Temp 97.1; Pulse Ox 97% ; Weight 70.76 kg; Height 5 bm8 ft. 1 in. ; Pain 10/10; 06/03 00:00 BP 159 / 87; Pulse 82; Resp 16; Pulse Ox 96% ; jb4 01:14 BP 142 / 78; Pulse 84; Resp 16; Pulse Ox 96% ; cp4 06/02 21:52 Body Mass Index 29.48 (70.76 kg, 154.94 cm) bm8 06/02 21:52 Pain Scale: Adult bm8 MDM: 06/02 21:40 Medical Screening Exam initiated [facility] 06/02 21:44 Order name: CBC with Diff; Complete Time: 00:17 [facility] 06/02 21:44 Order name: CMP; Complete Time: 00:17 [facility] 06/02 21:44 Order name: Lipase; Complete Time: 00:17 [facility] 06/02 21:44 Order name: Urinalysis w/ reflexes [facility] 06/03 01:01 Order name: Urine Culture [facility] 06/02 21:44 Order name: IV Saline Lock; Complete Time: 23:22 [facility] 06/02 21:44 Order name: Labs collected and sent; Complete Time: 22:27 [facility] 06/03 00:41 Order name: Nation Leg Bag; Complete Time: 01:13 [facility] Administered Medications: 06/03 00:07 Drug: Famotidine IVP 20 mg IVP once; dilute with 10 mL 0.9% NaCl; give over 2 minutes cp4 Route: IVP; Site: right wrist; 01:29 Follow up: Response: No adverse reaction cp4 00:07 Drug: Ondansetron IVP 4 mg IVP once; over 2 minutes Route: IVP; Site: right wrist; cp4 01:30 Follow up: Response: No adverse reaction cp4 00:07 Drug: NS 0.9% IV 1000 ml IV at 1 bolus Per protocol; to be given as a bolus over 60 cp4 minutes Route: IV; Rate: 1 bolus; Site: right wrist; 01:29 Follow up: IV Status: Completed infusion cp4 00:07 Drug: Meropenem IV 1 grams IV at per protocol once; (mix in NS 100 mL) Route: IV; Rate: cp4 per protocol; Site: right wrist; 00:08 Drug: morphine IVP or IV 4 mg IVP once over 4 mins Route: IVP; Infused Over: 4 mins; cp4 Site: right wrist; 01:30 Follow up: Response: No adverse reaction cp4 Disposition Summary: 06/03/24 00:47 Discharge Ordered Notes: Location: Home james Problem: new james Symptoms: have improved james Condition: Stable james Diagnosis - Other mechanical complication of urinary (indwelling) catheter james - Dysuria james Followup: james - With: Private Physician - When: 2 - 3 days - Reason: Recheck today's complaints, Continuance of care, Re-evaluation by your physician Followup: james - With: Jonh Garcia MD - When: 2 - 3 days - Reason: Recheck today's complaints, Continuance of care, Re-evaluation by your physician Discharge Instructions: - Discharge Summary Sheet james - Dysuria james - Indwelling Urinary Catheter Care, Adult [facility] Forms: - Medication Reconciliation Form james - Antibiotic Education james - Prescription Opioid Use james - Patient Portal Instructions [facility] - Leadership Thank You Letter [facility] Prescriptions: - Pyridium 200 mg Oral tablet - take 1 tablet ORAL route every 12 hours for 5 days; 10 tablet; Refills: 0, [facility] Product Selection Permitted - Macrobid 100 mg Oral Capsule - take 1 capsule ORAL route every 12 hours for 7 days; 14 capsule; Refills: 0, [facility] Product Selection Permitted Signatures: Dispatcher [employer] Anthony Peralta MD MD cha Potter, Christina cp4 Hugh Stewart, RN RN bm8 Corrections: (The following items were deleted from the chart) 06/02 21:56 21:31 Allergies: Levaquin; bm8 bm8 21:56 21:31 Allergies: Zithromax; bm8 bm8 21:56 21:31 Allergies: Vicodin; bm8 bm8 21:56 21:31 Home Meds: atorvastatin 20 mg oral tablet 1 tab every day at bedtime; bm8 bm8 21:56 21:31 Home Meds: prednisone 5 mg Oral tablet 1 tab 2 times per day; bm8 bm8 21:56 21:31 Home Meds: Advair Diskus 100-50 mcg/dose Inhl Blister, With Inhalation Device 1 bm8 inhalation 2 times per day; bm8 21:56 21:31 Home Meds: ibandronate 150 mg oral tablet 1 tab every month; bm8 bm8 :56 21:31 Home Meds: aspirin 81 mg Oral capsule 1 cap daily; bm8 bm8 :56 21:31 Home Meds: levothyroxine 112 mcg capsule 1 cap daily; bm8 bm8 21:56 21:31 Home Meds: Macrobid 100 mg Oral capsule 1 cap daily; bm8 bm8 21:56 21:31 Home Meds: amlodipine 5 mg oral tablet 1 tab daily; bm8 bm8 :56 21:31 PMHx: Anxiety; bm8 bm8 :56 21:31 PMHx: diabetes mellitus; bm8 bm8 21:56 21:31 PMHx: hiatal hernia; bm8 bm8 :56 21:31 PMHx: Hypertension; bm8 bm8 :56 21:31 PMHx: Kidney stones; bm8 bm8 :56 21:31 PMHx: Pancreatitis; bm8 bm8 :56 21:31 PSHx: Appendectomy; bm8 bm8 :56 21:31 PSHx: back; bm8 bm8 :56 21:31 PSHx: Bladder; bm8 bm8 :56 21:31 PSHx: Cholecystectomy; bm8 bm8 :56 21:31 PSHx: knee; bm8 bm8 :56 21:31 PSHx: Total abdominal hysterectomy; bm8 bm8 :56 21:31 PSHx: wrist; bm8 bm8 06/03 00:19 00:19 Abdomen Pelvis W Con+CT.RAD.BRZ ordered. EDMS EDMS
[2024-06-03 00:52] LABS: Renal Epithelial <5 /HPF (None Seen); Sqamous Epithelial <5 /HPF (None Seen); Urine Bacteria 20-50 /HPF (<20); Urine Bilirubin NEGATIVE (Negative); Urine Blood Trace (Negative); Urine Clarity Turbid (Clear); Urine Color Yellow (Yellow); Urine Culture Reflex Order REFLEXED; Urine Glucose NEGATIVE (Negative); Urine Ketones NEGATIVE (Negative); Urine Microscopic Reflex YN ORDER UMIC; Urine Mucus Slight /HPF (None Seen); Urine Nitrite NEGATIVE (Negative); Urine Protein NEGATIVE (Negative); Urine RBC <5 /HPF (None Seen); Urine Urobilinogen Normal (Normal); Urine Yeast (Budding) Trace /HPF (None Seen); Urine pH 5.5 (5.0-7.0)
[2024-06-03 01:56] VITALS: TEMP 97.1
[2024-06-03 01:57] VITALS: O2SAT 96
[2024-06-03 01:58] VITALS: BP 142/78
== END 2024-06-03 01:32 | disposition home or self-care (01) ==
LOC: ER 21:21
DX: T83.098A Other mechanical complication of other urinary catheter, initial encounter (principal); R30.0 Dysuria; R10.2 Pelvic and perineal pain
CPT/HCPCS: 87088; 85025; 81001; 87086; 36415; 83690; 80053; J2185; J2405; J7030; 51702; 87077; 87186; 96361; 96374; 96375; 99285

== ENCOUNTER 2024-06-18 00:34 | Emergency (ER) | payer OTHER ==
[2011-09-29 16:55] VITALS: BP 113/72
[2024-06-18] MEDS ORDERED: ONDANSETRON 4 MG/2 ML VIAL ONE (00:52)
[2024-06-18] MEDS ORDERED: NA CHLORIDE 0.9% 1,000 ML ONE (00:53)
[2024-06-18] MEDS ORDERED: MORPHINE 4 MG/ML SYR ONE (00:53)
[2024-06-18 01:21] LABS: Absolute Eosinophils 0.1 K/uL (0-0.5); Absolute Lymphocytes (CBC) 2.1 K/uL (0.7-4.9); Absolute Monocytes 0.8 K/uL (0.1-1.3); Absolute Neutrophil 6.9 K/uL (1.8-8.0); Basophils % 0.4 % (0-1.3); Eosinophils % 1.5 % (0-4.4); Hematocrit 39.9 % (36.0-45.0); Hemoglobin 13.8 g/dL (12.0-15.0); Lymphocytes % 21.4 % (15.3-44.8); MCH 28.1 pg (27.0-35.0); MCHC 34.6 g/dL (32.0-36.0); MCV 81.4 fL (80-100); MPV 8.4 fL (7.6-11.3); Monocytes % 7.7 % (3.3-12.3); Nucleated Red Blood Cells % 0.2 % (0-0); Platelets 257 thou/uL (152-406); Red Cell Distribution Width 14.7 % (12.1-15.2)
[2024-06-18 01:44] LABS: ALT/SGPT 20 U/L (13-56); Albumin 3.6 g/dL (3.4-5.0); Albumin/Globulin Ratio 0.8 (1.1-1.8); Alkaline Phosphatase 98 U/L (45-117); Anion Gap 10.8 mEq/L (5.0-15.0); BUN Blood Urea Nitrogen 18 mg/dL (7-18); Bicarbonate 24 mEq/L (21-32); Bilirubin Total 0.4 mg/dL (0.2-1.0); Globulin 4.6 g/dL (2.3-3.5); Glomerular Filtration Rate 57 ml/min (=/>90); Glucose Level 191 mg/dL (74-106); Lipase 40 U/L (13-75); Potassium 3.8 mEq/L (3.5-5.1); Protein, Total 8.2 g/dL (6.4-8.2); Sodium Level 138 mEq/L (136-145); Troponin High Sensitivity 12.6 pg/mL (<58.9)
[2024-06-18 01:54] LABS: AST/SGOT < 10 U/L (15-37)
--- NOTE | 2024-06-18 02:02 | ER ---
Nurse's Notes [facility] Name: Isadora Bettencourt Age: 78 yrs Sex: Female : 1945 Arrival Date: 06/18/2024 Time: 00:34 Bed 18 Private MD: Diagnosis: Chronic abdominal pain Presentation: 06/18 00:34 Chief complaint: Patient states: I have abd pain that started at 2200 this evening out bm8 of nowhere. 00:34 Coronavirus screen: At this time, the client does not indicate any symptoms associated bm8 with coronavirus-19. Ebola Screen: Patient negative for fever greater than or equal to 101.5 degrees Fahrenheit, and additional compatible Ebola Virus Disease symptoms Patient denies exposure to infectious person. Patient denies travel to an Ebola-affected area in the 21 days before illness onset. No symptoms or risks identified at this time. Initial Sepsis Screen: Does the patient meet any 2 criteria? No. Patient's initial sepsis screen is negative. Does the patient have a suspected source of infection? No. Patient's initial sepsis screen is negative. Risk Assessment: Do you want to hurt yourself or someone else? Patient reports no desire to harm self or others. Onset of symptoms was June 17, 2024 at 22:00. 00:34 Method Of Arrival: EMS: [facility] bm8 00:34 Acuity: FRANDY 3 bm8 Triage Assessment: 01:01 General: Appears distressed, uncomfortable, Behavior is agitated. Pain: Complains of bm8 pain in right upper quadrant and left upper quadrant Pain currently is 10 out of 10 on a pain scale. EENT: No deficits noted. No signs and/or symptoms were reported regarding the EENT system. Neuro: No deficits noted. Level of Consciousness is awake, alert, obeys commands. Cardiovascular: Denies chest pain, Heart tones S1 S2 present Capillary refill < 3 seconds in bilateral fingers Patient's skin is warm and dry. Respiratory: Airway is patent Respiratory effort is even, unlabored. GI: Abdomen is flat, non-distended, Bowel sounds present X 4 quads. Reports upper abdominal pain, nausea, Pain is 10 out of 10 on a pain scale. : Dobson in place to gravity drainage pt has indwelling cath in place from home due to incontinence. Derm: No signs and/or symptoms reported regarding the dermatologic system. Musculoskeletal: No signs and/or symptoms reported regarding the musculoskeletal system. Historical: - Allergies: : No Known Allergies; bm8 - Home Meds: : Unable to obtain [Active]; bm8 - PMHx: : Unable to Obtain; bm8 - PSHx: : Unable to Obtain; bm8 - Immunization history:: Adult Immunizations up to date. - Infectious Disease History:: Denies. - Social history:: Smoking status: Patient denies any tobacco usage or history of. Screenin:03 [facility] ED Fall Risk Assessment (Adult) History of falling in the last 3 months, bm8 including since admission No falls in past 3 months (0 pts) Confusion or Disorientation No (0 pts) Intoxicated or Sedated No (0 pts) Impaired Gait No (0 pts) Mobility Assist Device Used No (0 pt) Altered Elimination Yes (1 pt) Score/Fall Risk Level 0 - 2 = Low Risk Oriented to surroundings, Maintained a safe environment, Educated pt \T\ family on fall prevention, incl call for assistance when getting out of bed, Provided non-skid footwear, Hourly rounding (assess needs \T\ fall precautionary measures) done, Used ambulatory aids as needed (educated on \T\ assisted with), Used gait belt as appropriate. Abuse screen: Denies threats or abuse. Nutritional screening: No deficits noted. Tuberculosis screening: No symptoms or risk factors identified. Assessment: 01:03 Reassessment: Patient appears in no apparent distress at this time. Patient and/or bm8 family updated on plan of care and expected duration. Pain level reassessed. Patient is alert, oriented x 3, equal unlabored respirations, skin warm/dry/pink. Pain: Complains of pain in left upper quadrant and right upper quadrant Pain currently is 8 out of 10 on a pain scale. GI: Bowel sounds present X 4 quads. Abdomen is tender to palpation in right upper quadrant and left upper quadrant. 02:18 Reassessment: Patient appears in no apparent distress at this time. Patient and/or bm8 family updated on plan of care and expected duration. Pain level reassessed. Patient is alert, oriented x 3, equal unlabored respirations, skin warm/dry/pink. Pain: Complains of pain in abdomen Pain currently is 10 out of 10 on a pain scale. Vital Signs: 00:34 bm8 01:03 BP 192 / 88; Pulse 85; Resp 17; Temp 98.1; Pulse Ox 93% ; Weight 73.94 kg; Height 5 ft. bm8 0 in. ; Pain 8/10; 02:13 BP 195 / 92; Pulse 88; Resp 18; Temp 98.1; Pulse Ox 94% ; Pain 10/10; bm8 01:03 Body Mass Index 31.83 (73.94 kg, 152.4 cm) bm8 01:03 Pain Scale: Adult bm8 02:13 Pain Scale: Adult bm8 00:34 Pt declined initial vitals signs,d ue to discomfort in the abd bm8 [place] Coma Score: 01:03 Eye Response: spontaneous(4). Motor Response: obeys commands(6). Verbal Response: bm8 oriented(5). Total: 15. 02:13 Eye Response: spontaneous(4). Motor Response: obeys commands(6). Verbal Response: bm8 oriented(5). Total: 15. ED Course: 00:36 Patient arrived in ED. jj6 00:40 Lincoln Powell MD is Attending Physician. sp3 00:52 EKG done, by alternative energy technician. af3 00:59 Hugh Stewart, RN is Primary Nurse. bm8 01:01 Triage completed. bm8 01:01 Arm band placed on left wrist. bm8 01:03 No provider procedures requiring assistance completed. Inserted saline lock: 20 gauge bm8 in right antecubital area, using aseptic technique. Blood collected. Flushed with 10 mL NS. Patient maintains SpO2 saturation greater than 95% on room air. 01:03 Patient has correct armband on for positive identification. Bed in low position. Call bm8 light in reach. Side rails up X 1. Client placed on continuous cardiac and pulse oximetry monitoring. NIBP monitoring applied. shelter monitor on. Pulse ox on. NIBP on. Door closed. Noise minimized. Warm blanket given. Pillow given. Verbal reassurance given. Head of bed elevated. 02:18 Provided Education on: post er care. bm8 02:20 IV discontinued, intact, bleeding controlled, No redness/swelling at site. Pressure bm8 dressing applied. Administered Medications: 00:59 Drug: NS 0.9% IV 1000 ml IV at 1 bolus Per protocol; to be given as a bolus over 60 bm8 minutes Route: IV; Rate: 1 bolus; Site: right antecubital; 02:13 Follow up: Response: No adverse reaction; IV Status: Completed infusion bm8 00:59 Drug: Ondansetron IVP 4 mg IVP once; over 2 minutes Route: IVP; Site: right antecubital;bm8 02:13 Follow up: Response: No adverse reaction bm8 00:59 Drug: morphine IVP or IV 4 mg IVP once over 4 mins Route: IVP; Infused Over: 4 mins; bm8 Site: right antecubital; 02:12 Follow up: Response: No adverse reaction bm8 Medication: 01:03 VIS not applicable for this client. bm8 Outcome: 02:02 Discharge ordered by . sp3 02:18 Discharged to home via wheelchair, bm8 02:18 Condition: stable 02:18 Discharge instructions given to patient, Instructed on discharge instructions, follow up and referral plans. no drinking with medication, no driving heavy equipment, medication usage, safety practices, Demonstrated understanding of instructions, follow-up care, medications, 02:20 Patient left the ED. bm8 Signatures: Lincoln Powell MD MD sp3 Padmini Rivera6 Hugh Stewart, RN RN bm8 Sadaf Olivo3 Corrections: (The following items were deleted from the chart) 01:02 01:01 Home Meds: None; bm8 bm8
--- NOTE | 2024-06-18 02:03 | EDPHYS ---
Physician Documentation [facility] Name: Isadora Bettencourt Age: 78 yrs Sex: Female : 1945 Arrival Date: 06/18/2024 Time: 00:34 Bed 18 Private MD: ED Physician Lincoln Powell HPI: 06/18 01:25 This 78 yrs old Female presents to ER via EMS with complaints of Abdominal Pain. sp3 01:25 78-year-old female with history of hypertension, diabetes, chronic pancreatitis, and sp3 past surgical history including cholecystectomy, appendectomy and hysterectomy now presents to the ED with recurrent abdominal pain. Patient has had multiple visits in the ED for similar symptoms in the past. Tonight she states she was in the process of going to sleep when she started to have epigastric pain. She denies any fever, vomiting, diarrhea, chest pain, shortness of breath, lower abdominal pain, symptoms, SOFTWARE QUALITY ASSURANCE SPECIALIST symptoms, or any other signs or symptoms on ROS at this time.. Historical: - Allergies: 01:01 No Known Allergies; bm8 - Home Meds: 01: Unable to obtain [Active]; bm8 - PMHx: : Unable to Obtain; bm8 - PSHx: 01:01 Unable to Obtain; bm8 - Immunization history:: Adult Immunizations up to date. - Infectious Disease History:: Denies. - Social history:: Smoking status: Patient denies any tobacco usage or history of. ROS: 01:26 Constitutional: Negative for fever, chills, and weight loss, Eyes: Negative for injury, sp3 pain, redness, and discharge, ENT: Negative for injury, pain, and discharge, Neck: Negative for injury, pain, and swelling, Cardiovascular: Negative for chest pain, palpitations, and edema, Respiratory: Negative for shortness of breath, cough, wheezing, and pleuritic chest pain, Back: Negative for injury and pain, MS/Extremity: Negative for injury and deformity, Skin: Negative for injury, rash, and discoloration, Neuro: Negative for headache, weakness, numbness, tingling, and seizure, Psych: Negative for depression, anxiety, suicide ideation, homicidal ideation, and hallucinations, Allergy/Immunology: Negative for hives, rash, and allergies, Endocrine: Negative for neck swelling, polydipsia, polyuria, polyphagia, and marked weight changes, 01:26 All other systems are negative, Exam: 01:26 Constitutional: This is a well developed, well nourished patient who is awake, alert, sp3 and in no acute distress. Head/Face: Normocephalic, atraumatic. Eyes: Pupils equal round and reactive to light, extra-ocular motions intact. Lids and lashes normal. Conjunctiva and sclera are non-icteric and not injected. Cornea within normal limits. Periorbital areas with no swelling, redness, or edema. Neck: Trachea midline, no thyromegaly or masses palpated, and no cervical lymphadenopathy. Supple, full range of motion without nuchal rigidity, or vertebral point tenderness. No Meningismus. Chest/axilla: Normal chest wall appearance and motion. Nontender with no deformity. No lesions are appreciated. Cardiovascular: Regular rate and rhythm with a normal S1 and S2. No gallops, murmurs, or rubs. Normal PMI, no JVD. No pulse deficits. Respiratory: Lungs have equal breath sounds bilaterally, clear to auscultation and percussion. No rales, rhonchi or wheezes noted. No increased work of breathing, no retractions or nasal flaring. Back: No spinal tenderness. No costovertebral tenderness. Full range of motion. Skin: Warm, dry with normal turgor. Normal color with no rashes, no lesions, and no evidence of cellulitis. MS/ Extremity: Pulses equal, no cyanosis. Neurovascular intact. Full, normal range of motion. Neuro: Awake and alert, GCS 15, oriented to person, place, time, and situation. Cranial nerves II-XII grossly intact. Motor strength 5/5 in all extremities. Sensory grossly intact. Cerebellar exam normal. Normal gait. Psych: Awake, alert, with orientation to person, place and time. Behavior, mood, and affect are within normal limits. 01:26 Abdomen/GI: Mild epigastric pain to palpation without peritoneal signs, rebound or guarding. Nonsurgical abdomen. Vital signs are normal except for mild hypertension at 192/88., :29 ECG was reviewed by the Attending Physician. EKG demonstrates normal sinus rhythm at 91 sp3 bpm with normal intervals except QTc of 504, left bundle branch block and nonspecific diffuse ST/T changes without evidence of acute ischemia. No concordance noted on bundle branch block. Vital Signs: 00:34 bm8 01:03 BP 192 / 88; Pulse 85; Resp 17; Temp 98.1; Pulse Ox 93% ; Weight 73.94 kg; Height 5 ft. bm8 0 in. ; Pain 8/10; 02:13 BP 195 / 92; Pulse 88; Resp 18; Temp 98.1; Pulse Ox 94% ; Pain 10/10; bm8 01:03 Body Mass Index 31.83 (73.94 kg, 152.4 cm) bm8 01:03 Pain Scale: Adult bm8 02:13 Pain Scale: Adult bm8 00:34 Pt declined initial vitals signs,d ue to discomfort in the abd bm8 [place] Coma Score: 01:03 Eye Response: spontaneous(4). Motor Response: obeys commands(6). Verbal Response: bm8 oriented(5). Total: 15. 02:13 Eye Response: spontaneous(4). Motor Response: obeys commands(6). Verbal Response: bm8 oriented(5). Total: 15. MDM: 00:51 Medical Screening Exam initiated sp3 01:27 Data reviewed: vital signs, nurses notes, old medical records, lab test result(s). ED sp3 course: 78-year-old female with multiple episodes of acute on chronic pancreatitis. Other PMH above. Differential diagnosis includes acute on chronic pancreatitis, gastritis, functional abdominal pain, chronic abdominal pain, constipation, among others. I am not highly suspicious for AAA or other aortic pathology, sepsis, shock, pathology, SOFTWARE QUALITY ASSURANCE SPECIALIST pathology, acute coronary syndrome, PE or any other critical process. Workup will include general labs including lipase. IV fluids and morphine for symptomatic control. If lipase not significantly high, we will safely discharge patient home to PCP follow-up.. 02:01 ED course: Lipase at 40 and WBC normal. Vital signs continue to be with no significant sp3 findings. Will discharge patient home at this time. No further intervention indicated.. 04 00:43 Order name: CBC with Diff; Complete Time: 02:01 sp3 06/18 00:43 Order name: CMP; Complete Time: 02:01 sp3 06/18 00:43 Order name: Lipase; Complete Time: 02:01 sp3 06/18 00:44 Order name: Troponin High Sensitivity; Complete Time: 02: sp3 06/18 00:44 Order name: EKG; Complete Time: 00:44 sp3 06/18 00:44 Order name: IV Saline Lock; Complete Time: 00:59 sp3 06/18 00:44 Order name: Labs collected and sent; Complete Time: 00:59 sp3 06/18 00:44 Order name: EKG - Nurse/Tech; Complete Time: 00:52 sp3 Administered Medications: 00:59 Drug: NS 0.9% IV 1000 ml IV at 1 bolus Per protocol; to be given as a bolus over 60 bm8 minutes Route: IV; Rate: 1 bolus; Site: right antecubital; 02:13 Follow up: Response: No adverse reaction; IV Status: Completed infusion bm8 00:59 Drug: Ondansetron IVP 4 mg IVP once; over 2 minutes Route: IVP; Site: right antecubital;bm8 02:13 Follow up: Response: No adverse reaction bm8 00:59 Drug: morphine IVP or IV 4 mg IVP once over 4 mins Route: IVP; Infused Over: 4 mins; bm8 Site: right antecubital; 02:12 Follow up: Response: No adverse reaction bm8 Disposition Summary: 06/18/24 02:02 Discharge Ordered Notes: Location: Home sp3 Condition: Stable sp3 Diagnosis - Chronic abdominal pain sp3 Followup: sp3 - With: Private Physician - When: Upon discharge from the Emergency Department - Reason: If symptoms return Discharge Instructions: - Discharge Summary Sheet sp3 - Chronic Pain, Adult sp3 Forms: - Medication Reconciliation Form sp3 - Antibiotic Education sp3 - Prescription Opioid Use sp3 - Patient Portal Instructions sp3 - Leadership Thank You Letter sp3 Signatures: Dispatcher [employer] Lincoln Lion MD MD sp3 Danni Hudson RN RN haHugh Aguilar RN RN bm8 Corrections: (The following items were deleted from the chart) 01:02 01:01 Home Meds: None; bm8 bm8
--- NOTE | 2024-06-19 10:51 | EKG ---
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
== END 2024-06-18 02:20 | disposition home or self-care (01) ==
LOC: ER 00:34
DX: R10.13 Epigastric pain (principal)
CPT/HCPCS: 96361; 93005; 85025; 36415; 84484; 83690; 80053; 96375; 96374; 99285; J2405; J7030

== ENCOUNTER 2024-06-20 16:38 | Emergency (ER) | payer OTHER ==
[2024-06-20 19:07] LABS: Absolute Basophils 0.1 K/uL (0-0.5); Absolute Lymphocytes (CBC) 0.6 K/uL (0.7-4.9); Absolute Monocytes 1.5 K/uL (0.1-1.3); Absolute Neutrophil 21.5 K/uL (1.8-8.0); Basophils % 0.4 % (0-1.3); Hemoglobin 14.4 g/dL (12.0-15.0); Lymphocytes % 2.7 % (15.3-44.8); MCH 27.6 pg (27.0-35.0); MCHC 33.5 g/dL (32.0-36.0); MCV 82.2 fL (80-100); MPV 8.6 fL (7.6-11.3); Monocytes % 6.3 % (3.3-12.3); Neutrophils % 90.6 % (41.7-73.7); Platelets 244 thou/uL (152-406); RBC Red Blood Cell Count 5.23 M/uL (3.86-4.86); Red Cell Distribution Width 15.3 % (12.1-15.2)
[2024-06-20 19:10] LABS: PT Prothrombin Time 14.6 SECONDS (10-13.0); PTT, Activated Partial Thromb 27.4 SECONDS (27.2-37.4); Protime INR 1.3
[2024-06-20 19:22] LABS: Albumin 3.2 g/dL (3.4-5.0); Albumin/Globulin Ratio 0.7 (1.1-1.8); Anion Gap 20.5 mEq/L (5.0-15.0); Bilirubin Direct 0.3 mg/dL (0-0.2); Bilirubin Indirect, Calculated 0.9 mg/dL (0.2-0.8); Bilirubin Total 1.2 mg/dL (0.2-1.0); Globulin 4.3 g/dL (2.3-3.5); Protein, Total 7.5 g/dL (6.4-8.2)
[2024-06-20 19:27] LABS: Potassium 4.5 mEq/L (3.5-5.1)
[2024-06-20 19:28] LABS: Magnesium 1.5 mg/dL (1.6-2.4)
[2024-06-20] MEDS ORDERED: ONDANSETRON 4 MG/2 ML VIAL ONE (19:32)
[2024-06-20] MEDS ORDERED: PANTOPRAZOLE 40 MG INJ ONE ×2 (19:32→21:41)
[2024-06-20 19:33] LABS: Troponin High Sensitivity 251.5 pg/mL (<58.9)
--- NOTE | 2024-06-20 20:12 | RAD REPORT ---
EXAM: CT brain without contrast HISTORY: fall;Confused COMPARISON: None TECHNIQUE: Multiple contiguous axial images were obtained and a CT of the brain without contrast. Sag ittal and coronal reformats were performed. One or more of the following dose reduction techniques were used: Automated exposure control, adjust ment of the mA and/or kV according to patient size, and/or iterative reconstruction. FINDINGS: No evidence of hydrocephalus, intracranial hemorrhage, or extra-axial fluid collection. Mild brain atrophy with mild periventricular and deep white matter chronic microvascular ischemic ch anges present. No evidence of midline shift or areas of brain edema. The calvarium is intact. The visualized paranasal sinuses and mastoid air cells are essentially clear . IMPRESSION: No evidence of acute intracranial abnormality. EXAM: CT of the cervical spine without contrast HISTORY: Neck pain, injury fall;Confused TECHNIQUE: Multiple contiguous axial images were obtained in a CT of the cervical spine without contr ast. Sagittal and coronal reformats were performed. FINDINGS: 3-4 anterolisthesis C4 on 5. No evidence of acute fracture or subluxation.. This signal pos terior osteophyte lower cervical levels. No prevertebral soft tissue swelling is seen. The posterior facets are well aligned. Normal alignment of the skull base with the cervical spine is seen. The lung apices are unremarkable. IMPRESSION: 3-4 mm anterolisthesis C4 on 5. This is similar to 2020 study and likely degenerative in etiology No acute cervical spine abnormality seen.
--- NOTE | 2024-06-20 20:15 | RAD REPORT ---
EXAMINATION: CT ABDOMEN AND PELVIS WITHOUT CONTRAST CLINICAL INDICATION: ABD PAIN TECHNIQUE: CT abdomen and pelvis was performed, without IV contrast, as per department protocol. Axia l, sagittal and coronal reconstructions were obtained. One or more of the following dose reduction techniques were used: Automated exposure control, adjustment of the mA and kV according to the patien t size, and iterative reconstruction. Unless otherwise specified, incidental findings do not require dedicated imaging follow-up. COMPARISON: No prior exam. FINDINGS: The lack of intravenous contrast limits the sensitivity of this exam for evaluation of solid visceral organs, vascular structures, and retroperitoneum. LOWER CHEST: The visualized lung bases are clear. Moderate to large hiatal hernia. LIVER:Normal in size and contour. No focal lesion. Grossly unremarkable gallbladder. SPLEEN: Normal size. No focal lesion. PANCREAS: No mass, ductal dilation, or jose-pancreatic fluid. ADRENALS: Normal; no mass. KIDNEYS AND URETERS: Moderate bilateral hydronephrosis and hydroureter, greater on the left. No obstr ucting calculus. URINARY BLADDER: Normal contour. Tiny air bubble. GASTROINTESTINAL TRACT: No evidence of bowel obstruction, significant free fluid, free air or abscess . Prominent sigmoid diverticulosis coli. APPENDIX: Appendix not visualized, but no inflammatory changes in region of appendix. LYMPH NODES: No lymphadenopathy. MUSCULOSKELETAL: Moderate lower lumbar degenerative changes. ADDITIONAL FINDINGS: Mild indeterminant fat stranding quadrant and posterior pelvic fat. IMPRESSION: Moderate bilateral hydronephrosis and hydroureter, greater on the left, without obstructing calculus seen. Tiny air bubble urinary bladder. Cystitis is not excluded. Prominent diverticulosis of the sigmoid colon.
[2024-06-20 20:39] LABS: Blood Morphology Comment NOT SEEN (NOT SEEN); Platelet Estimate ADEQ; White Blood Cell Scan OK (OK)
--- NOTE | 2024-06-20 21:12 | ER ---
Nurse's Notes [facility] Name: Isadora Bettencourt Age: 78 yrs Sex: Female : 1945 Arrival Date: 06/20/2024 Time: 16:38 Bed 6 Private MD: Diagnosis: Acute kidney failure, unspecified;Chest pain, unspecified-NSTEMI;Elevated white blood cell count;GI Bleed/ Gastrointestinal hemorrhage, unspecified Presentation: 06/20 16:52 Chief complaint: EMS states: she had called her neighbor at 0400 this morning saying ap3 she needed help with her insulin but seemed confused and didn't realize it was the middle of the night. EMS reports the neighbor then rechecked on the patient approx one hour prior to her arrival and she was on the floor of her home. Patient states she has been on the floor of her home all day. Patient also reports vomiting for a week, but that three days ago her vomit and her stools have turned black. patient also reports upper abdominal pain. patient currently rates her pain as a 10/10 on the pain scale. Coronavirus screen: At this time, the client does not indicate any symptoms associated with coronavirus-19. Ebola Screen: No symptoms or risks identified at this time. Initial Sepsis Screen: Does the patient meet any 2 criteria? HR > 90 bpm. Does the patient have a suspected source of infection? No. Patient's initial sepsis screen is negative. Risk Assessment: Do you want to hurt yourself or someone else? Patient reports no desire to harm self or others. Onset of symptoms is unknown. Care prior to arrival: None. Activity prior to arrival: vomiting. Transition of care: patient was not received from another setting of care. 16:52 Method Of Arrival: EMS: [facility] ap3 16:52 Acuity: FRANDY 2 ap3 Triage Assessment: 16:56 General: Appears uncomfortable, Behavior is cooperative, appropriate for age. Pain: ap3 Complains of pain in abdomen Pain currently is 10 out of 10 on a pain scale. Neuro: Level of Consciousness is awake, alert, obeys commands, Oriented to person, place, situation, Appropriate for age. Cardiovascular: Patient's skin is warm and dry. Respiratory: Airway is patent Respiratory effort is even, unlabored, Respiratory pattern is regular, symmetrical. GI: Reports diarrhea, nausea, vomiting. : Dobson in place to gravity drainage. Historical: - Allergies: 16:56 No Known Allergies; ap3 - Infectious Disease History:: Denies. Screenin:57 [facility] ED Fall Risk Assessment (Adult) History of falling in the last 3 months, ap3 including since admission Yes- fall prone (multiple falls) (3 pts) Confusion or Disorientation Yes (5 pts) Intoxicated or Sedated No (0 pts) Impaired Gait Yes (1 pt) Mobility Assist Device Used Yes (1 pt) Altered Elimination Yes (1 pt) Score/Fall Risk Level 3 or more points = High Risk Oriented to surroundings, Maintained a safe environment, Educated pt \T\ family on fall prevention, incl call for assistance when getting out of bed, Provided non-skid footwear, Hourly rounding (assess needs \T\ fall precautionary measures) done, Offered frequent toileting (1:1 observation), Remained with patient while ambulating. Abuse screen: Denies threats or abuse. Nutritional screening: No deficits noted. Tuberculosis screening: No symptoms or risk factors identified. Assessment: 19:20 General: Appears in no apparent distress. comfortable, Behavior is calm. Pain: Unable al5 to use pain scale. Patient is disoriented. Neuro: Level of Consciousness is awake, confused, Oriented to person. Cardiovascular: Capillary refill < 3 seconds Patient's skin is warm and dry. Respiratory: Airway is patent Respiratory effort is even, unlabored, Respiratory pattern is regular, symmetrical. GI: Abdomen is flat, non-distended. GI: reports of black stool from previous nurse. : No signs and/or symptoms were reported regarding the genitourinary system. EENT: No signs and/or symptoms were reported regarding the EENT system. Derm: Skin is intact, is healthy with good turgor, Skin is pink, warm \T\ dry. normal. Musculoskeletal: No signs and/or symptoms reported regarding the musculoskeletal system. 21:23 Reassessment: Patient appears in no apparent distress at this time. No changes from al5 previously documented assessment. Patient and/or family updated on plan of care and expected duration. Pain level reassessed. 23:00 Reassessment: Patient appears in no apparent distress at this time. No changes from al5 previously documented assessment. Patient and/or family updated on plan of care and expected duration. Pain level reassessed. 23:50 Reassessment: report given to NEVILLE haile at [facility]. al5 23:56 Reassessment: Patient appears in no apparent distress at this time. No changes from al5 previously documented assessment. Patient and/or family updated on plan of care and expected duration. Pain level reassessed. report given to [facility] for transfer. Vital Signs: 16:52 BP 145 / 82; Pulse 98; Resp 19; Temp 98.2; Pulse Ox 96% on R/A; Weight 73.94 kg; Pain ap3 10/10; 19:17 Pulse 92; Resp 19; ap3 19:24 BP 153 / 78; Pulse 93; ap3 19:35 BP 167 / 78; Pulse 89; Resp 18; Pulse Ox 96% on R/A; al5 20:00 BP 157 / 89; Pulse 92; Resp 16; Pulse Ox 95% ; al5 20:30 BP 162 / 91; Pulse 89; Resp 17; Pulse Ox 96% ; al5 21:21 BP 171 / 86; Pulse 97; Resp 18; Pulse Ox 95% ; al5 22:00 BP 160 / 93; Pulse 103; Resp 16; Pulse Ox 95% ; al5 23:00 BP 167 / 97; Pulse 102; Resp 16; Pulse Ox 96% ; al5 23:55 BP 145 / 77; Pulse 79; Resp 16; Pulse Ox 96% ; al5 16:52 Pain Scale: Adult ap3 ED Course: 16:40 Patient arrived in ED. bd 16:40 Mecca Sullivan [facility]C [facility] kb 16:40 Efrain Smith MD is Attending Physician. kb 16:52 Janene Babin RN is Primary Nurse. ap3 16:56 Triage completed. ap3 16:57 Patient has correct armband on for positive identification. Bed in low position. Call ap3 light in reach. Side rails up X2. Client placed on continuous cardiac and pulse oximetry monitoring. NIBP monitoring applied. library monitor on. Pulse ox on. NIBP on. 16:58 Arm band placed on left wrist. ap3 17:10 EKG done, by ED staff, reviewed by Mecca BEACH. ap3 17:50 Missed attempt(s): 22 gauge in right antecubital area. ap3 18:56 Accessed peripheral vein via ultrasound, utilizing dynamic ultrasound technique using ss ,sterile technique, per hospital protocol. Clean \T\ dry. Dressing intact. 20 gauge R AC. Good blood return. Flushes easily. 19:45 Report given to Ronn RN. ap3 20:02 CT Head C Spine In Process Unspecified. EDMS 20:02 Abdomen In Process Unspecified. EDMS 20:38 Initiated transfer at [facility] with Lanie \T\ 2037. kmf 22:00 IV discontinued, intact, bleeding controlled, No redness/swelling at site. Pressure al5 dressing applied, IV no longer flush. 22:30 pt was accepted to [facility]. Accepting Dr. Tomlinson, S \T\[id number]. Admin approval given by Lanie calix J \T\ 2229. [facility] with transfer pt once nurse to nurse is complete. 23:00 Provided Education on: need for transfer. al5 23:00 IV discontinued, intact, bleeding controlled, No redness/swelling at site. Pressure al5 dressing applied, IV infiltrated. 23:47 Inserted saline lock: 20 gauge in left antecubital area, using aseptic technique. al5 ,using aseptic technique. via ultrasound guide iv done by neville england Blood collected. Flushed with 10 mL NS. 06/21 00:03 No provider procedures requiring assistance completed. Patient transferred, IV remains al5 in place. Administered Medications: 06/20 19:37 Drug: Pantoprazole IVP 40 mg IVP once Route: IVP; Site: right antecubital; ap3 06/21 00:01 Follow up: Response: No adverse reaction al5 06/20 19:37 Drug: Ondansetron IVP 4 mg IVP once; over 2 minutes Route: IVP; Site: right antecubital;ap3 06/21 00:00 Follow up: Response: No adverse reaction; Nausea is decreased al5 06/20 22:25 Drug: NS 0.9% IV 1000 ml IV at 1000 ml once; to be given as a bolus over 60 minutes ha1 Route: IV; Rate: 1000 ml; Site: left forearm; 23:59 Follow up: Response: No adverse reaction; IV Status: Infusion continued upon transfer al5 22:25 Drug: Pantoprazole IVP 40 mg IVP once Route: IVP; Site: left forearm; ha1 06/21 00:00 Follow up: Response: No adverse reaction al5 06/20 23:59 Drug: Pantoprazole IV 8 mg/hr IV at 25 ml/hr continuous; (Standard dilution is 80 mg in al5 250 mL NS) Route: IV; Rate: 25 ml/hr; Site: left antecubital; 06/21 00:00 Follow up: Response: No adverse reaction; IV Status: Infusion continued upon transfer al5 06/20 23:59 Drug: Meropenem IV 1 grams IV at calculated rate once; (mix in NS 100 mL) Route: IV; al5 Rate: calculated rate; Site: left antecubital; 23:59 Follow up: Response: No adverse reaction; IV Status: Infusion continued upon transfer al5 Medication: 19:00 VIS not applicable for this client. al5 Outcome: 21:12 ER care complete, transfer ordered by MD. alcantar 23:56 Transferred by [facility]. al5 23:56 Condition: stable 23:56 Instructed on the need for transfer, 06/21 00:12 Patient left the ED. al5 Signatures: Dispatcher [employer] EDMS Mecca Sullivan, LIME VAT TENDER-C LIME VAT TENDER-CkJayda Hancock Shelby, RN RN ss Prokisch, Amanda, RN RN ap3 Danni Hudson RN RN ha1 Carline Limon [facility] Janene Latham RN RN al5 Corrections: (The following items were deleted from the chart) 00:01 06/20 23:57 Initiated transfer at [facility] with Lanie \T\ 2037 [facility]
--- NOTE | 2024-06-20 21:12 | EDPHYS ---
Physician Documentation [facility] Name: Isadora Bettencourt Age: 78 yrs Sex: Female : 1945 Arrival Date: 06/20/2024 Time: 16:38 Bed 6 Private MD: ED Physician Efrain Smith HPI: 06/20 18:59 This 78 yrs old Female presents to ER via EMS with complaints of kb Nausea/Vomiting/Diarrhea - abdominal pain. 18:59 Patient is a 78-year-old female who presents for upper abdominal pain, nausea, kb vomiting, diarrhea that started 3 to 4 days ago. Reports diarrhea has been black and vomit has been coffee-ground. Family reported that patient was confused whenever they spoke to her on the phone and when they went to check on her just prior to arrival they found her on the floor.. Historical: - Allergies: 16:56 No Known Allergies; ap3 - Infectious Disease History:: Denies. ROS: 18:59 Constitutional: As per HPI kb Exam: 18:59 Constitutional: This is a well developed, well nourished patient who is awake, alert, kb and in no acute distress. Head/Face: Normocephalic, atraumatic. ENT: Moist Mucous membranes Cardiovascular: Regular rate Respiratory: Respirations even and unlabored. No increased work of breathing. Talking in full sentences Skin: Warm, dry with normal turgor. Normal color. MS/ Extremity: Pulses equal, no cyanosis. Neurovascular intact. Full, normal range of motion. Neuro: Awake and alert, GCS 15, oriented to person, place, time, and situation. 18:59 Abdomen/GI: Inspection: abdomen appears normal, Bowel sounds: normal, Palpation: soft, in all quadrants, moderate abdominal tenderness, in the right upper quadrant and left upper quadrant, 20:01 ECG was reviewed by the Attending Physician. kb Vital Signs: 16:52 BP 145 / 82; Pulse 98; Resp 19; Temp 98.2; Pulse Ox 96% on R/A; Weight 73.94 kg; Pain ap3 10/10; 19:17 Pulse 92; Resp 19; ap3 19:24 BP 153 / 78; Pulse 93; ap3 19:35 BP 167 / 78; Pulse 89; Resp 18; Pulse Ox 96% on R/A; al5 20:00 BP 157 / 89; Pulse 92; Resp 16; Pulse Ox 95% ; al5 20:30 BP 162 / 91; Pulse 89; Resp 17; Pulse Ox 96% ; al5 21:21 BP 171 / 86; Pulse 97; Resp 18; Pulse Ox 95% ; al5 22:00 BP 160 / 93; Pulse 103; Resp 16; Pulse Ox 95% ; al5 23:00 BP 167 / 97; Pulse 102; Resp 16; Pulse Ox 96% ; al5 23:55 BP 145 / 77; Pulse 79; Resp 16; Pulse Ox 96% ; al5 16:52 Pain Scale: Adult ap3 MDM: 16:40 Medical Screening Exam initiated kb 19:00 Data reviewed: vital signs, nurses notes. 21:12 Differential diagnosis: gi bleed, dehydration, abnormal electrolytes, acute renal kb failure. Consideration of Admission/Observation Patient was admitted/placed on observation. Escalation of care including admission/observation considered. pt will be transferred for GI. Management of patient was discussed with the following: Dr Donis. States pt is borderline so she wants to reach out to the mortgage loan reviewer prior to accepting. Historians other than the Patient: Daughter/Son: daughter. Counseling: I had a detailed discussion with the patient and/or guardian regarding the historical points, exam findings, and any diagnostic results supporting the discharge/admit diagnosis, lab results, radiology results, the need to transfer to another facility, [facility] does not immediately have the required specialist. 22:48 Management of patient was discussed with the following: Discussed case with mortgage loan reviewer, Dr Eckert, who accepts pt for transfer. Pt was awaiting bed, one found in a different ICU. Dr Eckert gave report to Dr Tomlinson who accepted pt. 06/20 16:42 Order name: Basic Metabolic Panel; Complete Time: 19:35 kb 06/20 16:42 Order name: CBC with Diff; Complete Time: 20:40 kb 06/20 16:42 Order name: Hepatic Function; Complete Time: 19:35 kb 06/20 16:42 Order name: Magnesium; Complete Time: 19:35 kb 06/20 16:42 Order name: Protime (+inr); Complete Time: 19:11 kb 06/20 16:42 Order name: Ptt, Activated; Complete Time: 19:11 kb 06/20 16:42 Order name: Troponin High Sensitivity; Complete Time: 19:35 kb 06/20 20:39 Order name: CBC Smear Scan; Complete Time: 20:40 EDMS 06/20 20:40 Order name: Blood Culture Adult (2) kb 06/20 20:40 Order name: Lactate w/ 2H reflex if indic. kb 06/20 16:42 Order name: CT Head C Spine; Complete Time: 20:13 kb 06/20 19:41 Order name: Abdomen ; Complete Time: 20:17 EDMS 06/20 16:42 Order name: Cardiac monitoring; Complete Time: 16:58 kb 06/20 16:42 Order name: EKG - Nurse/Tech; Complete Time: 17:10 kb 06/20 16:42 Order name: IV Saline Lock; Complete Time: 19:01 kb 06/20 16:42 Order name: Labs collected and sent; Complete Time: 19:01 kb 06/20 16:42 Order name: NPO; Complete Time: 16:58 kb 06/20 16:42 Order name: O2 Per Protocol; Complete Time: 16:58 kb 06/20 16:42 Order name: O2 Sat Monitoring; Complete Time: 16:58 kb 06/20 20:40 Order name: Vital Signs; Complete Time: 21:50 kb EC:01 Rate is 100 beats/min. Rhythm is regular. QRS [place] is Normal. [place] interval is normal at kb 148 msec. QRS interval is normal at 136 msec. QT interval is prolonged at 549 msec. Administered Medications: 19:37 Drug: Pantoprazole IVP 40 mg IVP once Route: IVP; Site: right antecubital; ap3 06/21 00:01 Follow up: Response: No adverse reaction 06/20 19:37 Drug: Ondansetron IVP 4 mg IVP once; over 2 minutes Route: IVP; Site: right antecubital;ap3 06/21 00:00 Follow up: Response: No adverse reaction; Nausea is decreased 06/20 22:25 Drug: NS 0.9% IV 1000 ml IV at 1000 ml once; to be given as a bolus over 60 minutes ha1 Route: IV; Rate: 1000 ml; Site: left forearm; 23:59 Follow up: Response: No adverse reaction; IV Status: Infusion continued upon transfer 22:25 Drug: Pantoprazole IVP 40 mg IVP once Route: IVP; Site: left forearm; ha1 06/21 00:00 Follow up: Response: No adverse reaction 5 06/20 23:59 Drug: Pantoprazole IV 8 mg/hr IV at 25 ml/hr continuous; (Standard dilution is 80 mg in al5 250 mL NS) Route: IV; Rate: 25 ml/hr; Site: left antecubital; 06/21 00:00 Follow up: Response: No adverse reaction; IV Status: Infusion continued upon transfer 5 06/20 23:59 Drug: Meropenem IV 1 grams IV at calculated rate once; (mix in NS 100 mL) Route: IV; al5 Rate: calculated rate; Site: left antecubital; 23:59 Follow up: Response: No adverse reaction; IV Status: Infusion continued upon transfer al Disposition: 06/21 07:02 Co-signature as Attending Physician, Efrain Smith MD I reviewed the patient's care rt provided by the Advanced Practice Provider and agree with the diagnosis and treatment plan. Disposition Summary: 06/20/24 21:12 Transfer Ordered Notes: Transfer Location: [facility] kb Reason: Higher level of care kb Condition: Stable kb Problem: new kb Symptoms: are unchanged kb Accepting Physician: Dr Tomlinson(06/21/24 00:12) al5 Diagnosis - Acute kidney failure, unspecified kb - Chest pain, unspecified - NSTEMI kb - Elevated white blood cell count kb - GI Bleed/ Gastrointestinal hemorrhage, unspecified kb Forms: - Medication Reconciliation Form kb - SBAR form kb Critical care time excluding procedures: 06/20 23:52 Critical care time: Bedside Care: 10 minutes, Consultation: 10 minutes, Family kb Intervention: 10 minutes. Total time: 30 minutes Signatures: Dispatcher [employer] EDMS Mecca Sullivan, SERJIO-C PLASTIC SURGERY MANAGER-Janene Pires RN RN ap3 Danni Hudson RN RN ha1 Efrain Smith MD MD rt Janene Latham RN RN al5 Corrections: (The following items were deleted from the chart) 16:42 16:42 BASIC METABOLIC PANEL+C.LAB.BRZ ordered. EDMS EDMS 16:42 16:42 CBC+H.LAB.BRZ ordered. EDMS EDMS 16:42 16:42 HEPATIC FUNCTION+C.LAB.BRZ ordered. EDMS EDMS 16:42 16:42 MAGNESIUM+C.LAB.BRZ ordered. EDMS EDMS 16:42 16:42 PROTIME (+INR)+COAG.LAB.BRZ ordered. EDMS EDMS 16:42 16:42 PTT, ACTIVATED+COAG.LAB.BRZ ordered. EDMS EDMS 16:42 16:42 Troponin High Sensitivity+C.LAB.BRZ ordered. EDMS EDMS 16:42 16:42 Head C Spine MPR Wo Con+CT.RAD.BRZ ordered. EDMS EDMS 16:42 16:42 Abdomen Pelvis W Con+CT.RAD.BRZ ordered. EDMS EDMS 19:45 16:42 Orthostatics ordered. ortiz al5 22:49 21:12 Dr ortiz alcantar 06/21 00:12 06/20 22:49 Dr Bushra alcantar al5
[2024-06-20] MEDS ORDERED: NA CHLORIDE 0.9% 250 ML ONE (21:41)
[2024-06-20] MEDS ORDERED: NA CHLORIDE 0.9% 1,000 ML ONE (21:42)
[2024-06-20] MEDS ORDERED: Meropenem 1000 MG/VIAL IV ONE (21:57)
[2024-06-20] MEDS ORDERED: NA CHLORIDE 0.9% 100 ML ONE (21:58)
[2024-06-21 00:59] VITALS: TEMP 98.2
[2024-06-21 01:35] VITALS: O2SAT 96
[2024-06-21 01:37] VITALS: BP 145/77
== END 2024-06-21 00:12 | disposition short-term general hospital (02) ==
LOC: ER 16:38
DX: I21.4 Non-ST elevation (NSTEMI) myocardial infarction (principal); N17.9 Acute kidney failure, unspecified; K92.2 Gastrointestinal hemorrhage, unspecified; D72.829 Elevated white blood cell count, unspecified
CPT/HCPCS: 93005; 87040 ×2; 85025; 80048; 36415; 83735; 87205 ×4; 85610; 80076; 83605; 85730; 87077 ×2; 87186 ×2; 84484; 70450; 72125; 74176; J2470 ×2; J2185; J2405; J7050; J7030

== ENCOUNTER 2024-10-12 15:03 | Inpatient (IN) | payer OTHER ==
--- NOTE | 2024-10-12 16:45 | RAD REPORT ---
EXAMINATION: CT Abdomen Pelvis Wo Contrast CLINICAL INDICATION: Female, 78 years old. ABD PAIN TECHNIQUE: CT abdomen and pelvis was performed, without IV contrast, as per department protocol. Axia l, sagittal and coronal reconstructions were obtained. One or more of the following dose reduction techniques were used: Automated exposure control, adjustment of the mA and kV according to the patien t size, and iterative reconstruction. Unless otherwise specified, incidental findings do not require dedicated imaging follow-up. COMPARISON: 09/09/2024 FINDINGS: The lack of intravenous contrast limits the sensitivity of this exam for evaluation of solid visceral organs, vascular structures, and retroperitoneum. LOWER CHEST: The visualized lung bases are clear. LIVER: Normal in size and contour. No focal lesion. BILIARY SYSTEM: Gallbladder not visualized and could be surgically removed. Central pneumobilia again seen. SPLEEN: Normal size. No focal lesion. PANCREAS: Similar prominent appearance of the uncinate process, and atrophic changes of the body and tail of the pancreas. Progressive fat stranding around the pancreatic head and uncinate process extending along the mesenteric root.. No appreciable cystic lesions or mass within limits of noncontr ast evaluation. ADRENALS: Normal; no mass. KIDNEYS AND URETERS: Normal size and contour. Mild to moderate prominence of the renal pelvis more so on the left again seen. No radiopaque calculi. URINARY BLADDER: Satisfactory positioning of the suprapubic catheter. No wall thickening or pericysti c inflammatory changes. GASTROINTESTINAL TRACT: Moderate sliding hiatal hernia. No evidence of bowel obstruction, significant free fluid, free air or abscess. Extensive distal colonic diverticulosis again seen, without evidence of acute diverticulitis. APPENDIX: Normal appendix. LYMPH NODES: No lymphadenopathy. MUSCULOSKELETAL: No acute or suspicious osseous abnormality. Segmentation anomaly at L5 with dextroco nvex scoliosis of the level and advanced degenerative changes, stable in appearance. ADDITIONAL FINDINGS: None. IMPRESSION: Progressive inflammatory changes centered around the uncinate process and extending along the mesente javed root, could relate to acute on top of chronic pancreatitis. Alternatively, mesenteric panniculitis, or portal vein pathology can also be considered. Other stable findings as above. THIS REPORT CONTAINS FINDINGS THAT MAY BE CRITICAL TO PATIENT CARE. The findings were verbally commun icated via telephone to Lincoln Powell on 10/12/2024 4:38 PM.
[2024-10-12 16:57] LABS: Absolute Lymphocytes (CBC) 1.8 K/uL (0.7-4.9); Hematocrit 34.4 % (36.0-45.0); Hemoglobin 11.1 g/dL (12.0-15.0); MCH 24.9 pg (27.0-35.0); MCHC 32.2 g/dL (32.0-36.0); MCV 77.2 fL (80-100); MPV 8.2 fL (7.6-11.3); Nucleated RBC Absolute Count 0.0 (0-0); Nucleated Red Blood Cells % 0.0 % (0-0); RBC Red Blood Cell Count 4.45 M/uL (3.86-4.86); White Blood Count 6.90 thou/uL (4.3-10.9)
[2024-10-12 17:20] LABS: PT Prothrombin Time 12.3 SECONDS (10-13.0); Protime INR 1.09
[2024-10-12 17:28] LABS: ALT/SGPT 15 U/L (13-56); AST/SGOT 11 U/L (15-37); Albumin 3.3 g/dL (3.4-5.0); Albumin/Globulin Ratio 0.8 (1.1-1.8); Alkaline Phosphatase 71 U/L (45-117); Anion Gap 12.1 mEq/L (5.0-15.0); BUN Blood Urea Nitrogen 17 mg/dL (7-18); Globulin 4.3 g/dL (2.3-3.5); Glucose Level 121 mg/dL (74-106); Magnesium 2.1 mg/dL (1.6-2.4); NT PRO-BNP 781 pg/mL (<450); Potassium 4.1 mEq/L (3.5-5.1); Troponin High Sensitivity 14.9 pg/mL (<58.9)
[2024-10-12 17:36] LABS: Bilirubin Indirect, Calculated 0.1 mg/dL (0.2-0.8)
[2024-10-12] MEDS ORDERED: FAMOTIDINE 20 MG/2 ML VIAL IV ONE (18:14)
[2024-10-12] MEDS ORDERED: HYDROMORPHONE HCL 1 MG/ML INJ ONE (18:14)
[2024-10-12] MEDS ORDERED: ONDANSETRON 4 MG/2 ML VIAL ONE ×2 (18:14→19:37)
--- NOTE | 2024-10-12 18:33 | EDPHYS ---
Physician Documentation [facility] Name: Isadora Bettencourt Age: 78 yrs Sex: Female : 1945 Arrival Date: 10/12/2024 Time: 15:03 Bed 2 Private MD: ED Physician Elijah Olivarez HPI: 10/12 16:24 This 78 yrs old Female presents to ER via EMS with complaints of Problem With Urinary sp3 Catheter. 16:24 78-year-old female with history of chronic pain, suprapubic catheter, pancreatitis, sp3 diabetes, hypertension, diverticulitis now presents for her suprapubic catheter not flowing well as well as left upper quadrant abdominal pain. This catheter was placed 3 weeks ago. Abdominal pain started approximately 48 hours ago. 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 Historical: - Allergies: 15:10 No Known Allergies; db - PMHx: 15:10 Diverticulitis; HTN; DM; Pancreatitis; suprapubic catheter.; db - Immunization history:: Adult Immunizations unknown. - Infectious Disease History:: Denies. - Social history:: Smoking status: Patient/guardian denies using tobacco, but has a distant history of tobacco abuse. ROS: 16:27 Constitutional: Negative for fever, chills, and weight loss, Eyes: Negative for injury, sp3 pain, redness, and discharge, ENT: Negative for injury, pain, and discharge, Neck: Negative for injury, pain, and swelling, Cardiovascular: Negative for chest pain, palpitations, and edema, Respiratory: Negative for shortness of breath, cough, wheezing, and pleuritic chest pain, Back: Negative for injury and pain, MS/Extremity: Negative for injury and deformity, Skin: Negative for injury, rash, and discoloration, Neuro: Negative for headache, weakness, numbness, tingling, and seizure, Psych: Negative for depression, anxiety, suicide ideation, homicidal ideation, and hallucinations, Allergy/Immunology: Negative for hives, rash, and allergies, Endocrine: Negative for neck swelling, polydipsia, polyuria, polyphagia, and marked weight changes, 16:27 All other systems are negative, Exam: 16:27 Constitutional: This is a well developed, well nourished patient who is awake, alert, sp3 and in no acute distress. Head/Face: Normocephalic, atraumatic. Eyes: Pupils equal round and reactive to light, extra-ocular motions intact. Lids and lashes normal. Conjunctiva and sclera are non-icteric and not injected. Cornea within normal limits. Periorbital areas with no swelling, redness, or edema. ENT: Nares patent. No nasal discharge, no septal abnormalities noted. External auditory canals are clear. Oropharynx with no redness, swelling, or masses, exudates, or evidence of obstruction, uvula midline. Mucous membranes moist. Neck: Trachea midline, no thyromegaly or masses palpated, and no cervical lymphadenopathy. Supple, full range of motion without nuchal rigidity, or vertebral point tenderness. No Meningismus. Chest/axilla: Normal chest wall appearance and motion. Nontender with no deformity. No lesions are appreciated. Cardiovascular: Regular rate and rhythm with a normal S1 and S2. No gallops, murmurs, or rubs. Normal PMI, no JVD. No pulse deficits. Respiratory: Lungs have equal breath sounds bilaterally, clear to auscultation and percussion. No rales, rhonchi or wheezes noted. No increased work of breathing, no retractions or nasal flaring. Back: No spinal tenderness. No costovertebral tenderness. Full range of motion. Skin: Warm, dry with normal turgor. Normal color with no rashes, no lesions, and no evidence of cellulitis. MS/ Extremity: Pulses equal, no cyanosis. Neurovascular intact. Full, normal range of motion. Neuro: Awake and alert, GCS 15, oriented to person, place, time, and situation. Cranial nerves II-XII grossly intact. Motor strength 5/5 in all extremities. Sensory grossly intact. Cerebellar exam normal. Normal gait. Psych: Awake, alert, with orientation to person, place and time. Behavior, mood, and affect are within normal limits. 17:03 ECG was reviewed by the Attending Physician. EKG demonstrates normal sinus rhythm with sp3 PVCs and a left bundle branch block pattern with no concordance. Vital Signs: 14:58 BP 166 / 86; Pulse 80; Resp 16; Temp 99; Pulse Ox 99% ; Weight 68.04 kg; Height 5 ft. 1 db in. ; 16:30 BP 168 / 85; Pulse 76; Resp 18; Pulse Ox 98% ; db 17:31 BP 168 / 101; Pulse 79; Resp 18; Pulse Ox 98% on R/A; ph 18:51 BP 155 / 108; Pulse 91; Resp 18; Pulse Ox 93% on R/A; ph 19:44 BP 167 / 100; Pulse 78; Resp 17 S; Pulse Ox 95% on R/A; lg3 21:01 BP 149 / 64; Pulse 64; Resp 16 S; Pulse Ox 96% on R/A; lg3 22:13 BP 141 / 72; Pulse 69; Resp 17 S; Pulse Ox 96% on R/A; lg3 14:58 Body Mass Index 28.34 (68.04 kg, 154.94 cm) db MDM: 15:18 Medical Screening Exam initiated sp3 16:27 Data reviewed: vital signs, nurses notes, old medical records, lab test result(s), EKG, sp3 radiologic studies. ED course: 78-year-old female with left upper quadrant abdominal pain and Nation catheter suprapubic that is not working for her. Differential diagnosis includes catheter malfunction, other intra-abdominal pathology, UTI/pyelonephritis, colitis, constipation, functional abdominal pain, and to lesser degree of vascular or cardiac pathology. Workup will include EKG, general labs including troponin, lipase, UA and CT scan of the abdomen pelvis noncontrast. We will also try and flush her suprapubic catheter. Disposition pending workup and patient course.. 18:31 ED course: Lipase at 30. CT demonstrates progressive inflammation. Will treat with pain sp3 control. Limit IV fluid secondary to catheter situation. Dr. Garcia will see patient in the morning. She does have overflow urine output through her urethra. I discussed the case with Dr. Garcia as well.. 10/12 15:32 Order name: Basic Metabolic Panel; Complete Time: 17:38 sp3 10/12 15:32 Order name: CBC with Diff; Complete Time: 17:03 sp3 10/12 15:32 Order name: LFT's; Complete Time: 17:38 sp3 10/12 15:32 Order name: Magnesium; Complete Time: 17:38 sp3 10/12 15:32 Order name: NT PRO-BNP; Complete Time: 17:38 sp3 10/12 15:32 Order name: PT-INR; Complete Time: 17:31 sp3 10/12 15:32 Order name: Troponin HS; Complete Time: 17:38 sp3 10/12 15:32 Order name: UA Rfx Rocael Cult if indicated sp3 10/12 17:38 Order name: Lipase; Complete Time: 20:28 sp3 10/12 20:57 Order name: CBC with Automated Diff EDMS 10/12 20:57 Order name: CBC with Automated Diff EDMS 10/12 20:57 Order name: Comprehensive Metabolic Panel EDMS 10/12 20:57 Order name: Comprehensive Metabolic Panel EDMS 10/12 15:32 Order name: CT Abd/Pelvis - Without Contrast; Complete Time: 16:49 sp3 10/12 15:32 Order name: EKG; Complete Time: 15:32 sp3 10/12 20:56 Order name: Social Service Consult EDMS 10/12 21:01 Order name: CONS Physician Consult EDMS 10/12 15:32 Order name: Cardiac monitoring; Complete Time: 16:49 sp3 10/12 15:32 Order name: EKG - Nurse/Tech; Complete Time: 16:49 sp3 10/12 15:32 Order name: IV Saline Lock; Complete Time: 16:49 sp3 10/12 15:32 Order name: Labs collected and sent; Complete Time: 16:49 sp3 10/12 15:32 Order name: O2 Per Protocol; Complete Time: 16:49 sp3 10/12 15:32 Order name: O2 Sat Monitoring; Complete Time: 16:49 sp3 10/12 15:32 Order name: Misc. Order: flush nation; Complete Time: 16:49 sp3 Administered Medications: 18:14 Drug: HYDROmorphone IVP 1 mg IVP once Route: IVP; Site: left antecubital; db 19:47 Follow up: Response: No adverse reaction; No change in condition lg3 18:14 Drug: Ondansetron IVP 4 mg IVP once; over 2 minutes Route: IVP; Site: left antecubital; db 19:47 Follow up: Response: No adverse reaction; No change in condition lg3 18:14 Drug: Famotidine IVP 20 mg IVP once; dilute with 10 mL 0.9% NaCl; give over 2 minutes db Route: IVP; Site: left antecubital; 19:47 Follow up: Response: No adverse reaction lg3 19:46 Drug: Ondansetron IVP 4 mg IVP once; over 2 minutes Route: IVP; Site: left antecubital; lg3 20:35 Follow up: Response: No adverse reaction lg3 19:47 Drug: morphine IVP or IV 4 mg IVP once over 4 mins Route: IVP; Infused Over: 4 mins; lg3 Site: left antecubital; 20:35 Follow up: Response: No adverse reaction; Marked relief of symptoms lg3 20:35 Drug: Phenergan 25 mg IV at calculated rate once Route: IV; Rate: calculated rate; lg3 Site: left antecubital; 22:16 Follow up: Response: No adverse reaction; Marked relief of symptoms; IV Status: lg3 Completed infusion; IV Intake: 50ml Disposition Summary: 10/12/24 18:33 Hospitalization Ordered Notes: Hospitalization Status: Observation sp3 Provider: Kale Mosher sp3 Location: Telemetry/[facility] (observation) sp3 Condition: Stable sp3 Problem: an acute exacerbation sp3 Symptoms: have worsened sp3 Bed/Room Type: Standard sp3 Room Assignment: 219(10/12/24 21:01) kl Diagnosis - Suprapubic catheter malfunction, abdominal pain, pancreatitis sp3 Forms: - Medication Reconciliation Form sp3 - SBAR form sp3 - Leadership Thank You Letter sp3 Signatures: Dispatcher [employer] EDMS Minnie Forte RN RN kl Able, Lacie, RN RN lg3 Lincoln Powell MD MD sp3 Judith Ricks RN RN db Potepalov, Sergey, MD MD sp4 Corrections: (The following items were deleted from the chart) 17:39 17:39 LIPASE+C.LAB.BRZ ordered. EDLA EDMS 21:01 18:33 sp3 lupe
--- NOTE | 2024-10-12 18:33 | ER ---
Nurse's Notes [facility] Jaswinder Name: Isadora Bettencourt Age: 78 yrs Sex: Female : 1945 Arrival Date: 10/12/2024 Time: 15:03 Bed 2 Private MD: Diagnosis: Suprapubic catheter malfunction, abdominal pain, pancreatitis Presentation: 10/12 14:58 Chief complaint: EMS states: CATHETER LEAKING X 2 WEEKS. STATES HAS BEEN IN X 3 WEEKS db AND WAS SURGICALLY PLACED. Coronavirus screen: Client denies travel out of the [place] in the last 14 days. At this time, the client does not indicate any symptoms associated with coronavirus-19. Ebola Screen: Patient negative for fever greater than or equal to 101.5 degrees Fahrenheit, and additional compatible Ebola Virus Disease symptoms Patient denies exposure to infectious person. Patient denies travel to an Ebola-affected area in the 21 days before illness onset. No symptoms or risks identified at this time. Initial Sepsis Screen: Does the patient meet any 2 criteria? No. Patient's initial sepsis screen is negative. Does the patient have a suspected source of infection? No. Patient's initial sepsis screen is negative. Risk Assessment: Do you want to hurt yourself or someone else? Patient reports no desire to harm self or others. Onset of symptoms was October 01, 2024. 14:58 Method Of Arrival: EMS: [facility] db 14:58 Acuity: FRANDY 3 db Triage Assessment: 15:10 General: Appears in no apparent distress. comfortable, Behavior is calm, cooperative. db Pain: Denies pain. Neuro: Level of Consciousness is awake, alert, obeys commands, Oriented to person, place, time, situation. Respiratory: Airway is patent Respiratory effort is even, unlabored, Respiratory pattern is regular, symmetrical. : suprapubic catheter in place Urine is cloudy. Historical: - Allergies: 15:10 No Known Allergies; db - PMHx: 15:10 Diverticulitis; HTN; DM; Pancreatitis; suprapubic catheter.; db - Immunization history:: Adult Immunizations unknown. - Infectious Disease History:: Denies. - Social history:: Smoking status: Patient/guardian denies using tobacco, but has a distant history of tobacco abuse. Screenin:12 [facility] ED Fall Risk Assessment (Adult) History of falling in the last 3 months, db including since admission No falls in past 3 months (0 pts) Confusion or Disorientation No (0 pts) Intoxicated or Sedated No (0 pts) Impaired Gait No (0 pts) Mobility Assist Device Used No (0 pt) Altered Elimination Yes (1 pt) Score/Fall Risk Level 0 - 2 = Low Risk Oriented to surroundings, Maintained a safe environment. Abuse screen: Denies threats or abuse. Denies injuries from another. Nutritional screening: No deficits noted. Tuberculosis screening: No symptoms or risk factors identified. Assessment: 15:12 Reassessment: SEE TRIAGE FOR INITIAL ASSESSMENT. db 16:08 Reassessment: PT REQUEST TO HAVE PICC LINE REFUSED ACCESS AT THIS TIME. db 16:50 Reassessment: ATTEMPTED TO FLUSH CATHETER. BALLOON IN PLACE AND INTACT. CATHETER NOT db FLUSHING. NOTED SMALL AMOUNT OF WHITE PUSS. 18:45 Reassessment: Patient appears in no apparent distress at this time. Patient and/or db family updated on plan of care and expected duration. Pain level reassessed. Patient is alert, oriented x 3, equal unlabored respirations, skin warm/dry/pink. PT CLEANED, LINEN CHANGED. PURWICK PLACED. PT PLACED IN GOWN REQUESTS TO KEEP SHIRT ON UNDER GOWN. General: Appears in no apparent distress. comfortable, Behavior is calm, cooperative. Neuro: Level of Consciousness is awake, alert, obeys commands, Oriented to person, place, time, situation. 19:44 General: Appears in no apparent distress. uncomfortable, Behavior is calm, cooperative. lg3 Pain: Complains of pain in abdomen Pain does not radiate. Pain currently is 9 out of 10 on a pain scale. Noted to be guarding, resistant to movement. Neuro: No deficits noted. Moreira Agitation-Sedation Scale (RASS): 0 - Alert and Calm Level of Consciousness is awake, alert, obeys commands, Oriented to person, place, time, situation. Cardiovascular: No deficits noted. Denies chest pain, shortness of breath, Capillary refill < 3 seconds Clubbing of nail beds is absent JVD is absent Patient's skin is warm and dry. Respiratory: No deficits noted. Airway is patent Respiratory effort is even, unlabored, Respiratory pattern is regular, symmetrical. GI: Abdomen is round non-distended, Pt is actively vomiting bile, clear fluid, Bowel sounds present X 4 quads. Reports upper abdominal pain, nausea, vomiting. : suprapubic catheter in place. EENT: No deficits noted. No signs and/or symptoms were reported regarding the EENT system. Derm: No deficits noted. No signs and/or symptoms reported regarding the dermatologic system. Skin is intact, is healthy with good turgor, Skin is dry, Skin is normal, Skin temperature is warm. Musculoskeletal: No deficits noted. No signs and/or symptoms reported regarding the musculoskeletal system. Circulation, motion, and sensation intact. Range of motion: intact in all extremities. 22:13 Reassessment: Patient appears in no apparent distress at this time. No changes from lg3 previously documented assessment. Patient and/or family updated on plan of care and expected duration. Pain level reassessed. Patient is alert, oriented x 3, equal unlabored respirations, skin warm/dry/pink. Patient states feeling better. Patient states symptoms have improved. Vital Signs: 14:58 BP 166 / 86; Pulse 80; Resp 16; Temp 99; Pulse Ox 99% ; Weight 68.04 kg; Height 5 ft. 1 db in. ; 16:30 BP 168 / 85; Pulse 76; Resp 18; Pulse Ox 98% ; db 17:31 BP 168 / 101; Pulse 79; Resp 18; Pulse Ox 98% on R/A; ph 18:51 BP 155 / 108; Pulse 91; Resp 18; Pulse Ox 93% on R/A; ph 19:44 BP 167 / 100; Pulse 78; Resp 17 S; Pulse Ox 95% on R/A; lg3 21:01 BP 149 / 64; Pulse 64; Resp 16 S; Pulse Ox 96% on R/A; lg3 22:13 BP 141 / 72; Pulse 69; Resp 17 S; Pulse Ox 96% on R/A; lg3 14:58 Body Mass Index 28.34 (68.04 kg, 154.94 cm) db ED Course: 15:08 Patient arrived in ED. db 15:10 Triage completed. db 15:11 Arm band placed on Patient placed in an exam room. db 15:12 Lincoln Powell MD is Attending Physician. sp3 15:26 Judith Ricks, RN is Primary Nurse. db 15:[address] via stretcher. db 15:56 CT Abd/Pelvis - Without Contrast In Process Unspecified. EDMS 16:48 Initial lab(s) drawn, by me, sent to lab. Inserted saline lock: 20 gauge in left aa5 antecubital area, using aseptic technique. Blood collected. Flushed with 10 mL NS. 18:32 Kale Mosher is Hospitalizing Provider. sp3 18:46 Patient has correct armband on for positive identification. Bed in low position. Call db light in reach. Side rails up X 1. Pulse ox on. NIBP on. Warm blanket given. Pillow given. 18:58 Oxygen administration via nasal cannula \T\ 2L/min O2 via Patient O2 sat 87% on RA. ar8 Patient placed on 2LNC. 19:35 Attending Physician role handed off by Lincoln Powell MD sp4 19:35 Elijah Olivarez MD is Attending Physician. sp4 22:16 No provider procedures requiring assistance completed. Patient admitted, IV remains in lg3 place. Administered Medications: 18:14 Drug: HYDROmorphone IVP 1 mg IVP once Route: IVP; Site: left antecubital; db 19:47 Follow up: Response: No adverse reaction; No change in condition lg3 18:14 Drug: Ondansetron IVP 4 mg IVP once; over 2 minutes Route: IVP; Site: left antecubital; db 19:47 Follow up: Response: No adverse reaction; No change in condition lg3 18:14 Drug: Famotidine IVP 20 mg IVP once; dilute with 10 mL 0.9% NaCl; give over 2 minutes db Route: IVP; Site: left antecubital; 19:47 Follow up: Response: No adverse reaction lg3 19:46 Drug: Ondansetron IVP 4 mg IVP once; over 2 minutes Route: IVP; Site: left antecubital; lg3 20:35 Follow up: Response: No adverse reaction lg3 19:47 Drug: morphine IVP or IV 4 mg IVP once over 4 mins Route: IVP; Infused Over: 4 mins; lg3 Site: left antecubital; 20:35 Follow up: Response: No adverse reaction; Marked relief of symptoms lg3 20:35 Drug: Phenergan 25 mg IV at calculated rate once Route: IV; Rate: calculated rate; lg3 Site: left antecubital; 22:16 Follow up: Response: No adverse reaction; Marked relief of symptoms; IV Status: lg3 Completed infusion; IV Intake: 50ml Medication: 19:44 VIS not applicable for this client. lg3 Intake: 22:16 IV: 50ml; Total: 50ml. lg3 Outcome: 18:33 Decision to Hospitalize by Provider. sp3 22:16 Admitted to Med/surg accompanied by tech, via stretcher, room 219, lg3 22:16 Condition: stable 22:16 Instructed on the need for admit, 22:16 Patient left the ED. lg3 Signatures: Dispatcher [employer] EDMS Noemi Bonner RN RN aa5 Elizabeth Desai RN RN ph AbleTanna RN RN lg3 Lincoln Powell MD MD sp3 Judith Ricks RN RN Elijah Bragg MD MD sp4 Stef Andrade RN RN ar8 Corrections: (The following items were deleted from the chart) 15:27 15:10 : Dobson in place Urine is cloudy, roma brandon
[2024-10-12] MEDS ORDERED: MORPHINE 4 MG/ML SYR ONE (19:37)
[2024-10-12] MEDS ORDERED: NA CHLORIDE 0.9% 100 ML ONE (20:30)
[2024-10-12] MEDS ORDERED: PROMETHAZINE INJ 25 MG/ML AMP ONE (20:30)
[2024-10-12] MEDS ORDERED: ALBUTEROL 2.5 MG/3 ML NEB SOL NEB PRN (20:52)
--- NOTE | 2024-10-12 20:52 | P.HP ---
Certification for Inpatient With expected LOS: <2 Midnights Patient will require the following post-hospital care: Retirement Practitioner: I am a practitioner with admitting privileges, knowledge of patient current condition, hospital course, and medical plan of care. Services: Services provided to patient in accordance with Admission requirements found in Title 42 Section 412.3 of the Code of Federal Regulations Patient History Date of Service: 10/12/24 Reason for admission: Leaking suprapubic catheter History of Present Illness: 78-year-old female past medical history of HTN/DM/diverticulitis/urinary retention with Botox injection, indwelling chronic Dobson catheter since the last 1 year, recently placed suprapubic catheter since 3 weeks ago but noted to be persistently leaking since then. Developed abdominal cramps today. Admits to nausea and vomiting since that today. She was sent from correction because of the leaking suprapubic catheter. On arrival in the ED suprapubic catheter unable to be changed. Urology was discussed with and recommended evaluation and possible replacement of catheter in a.m. Patient CT of the abdomen shows bilateral mild hydronephrosis with some stranding. Also noted inflammatory changes around the pancreatic with signet process worrisome for chronic pancreatitis. Patient still having recurrent nausea vomiting. She admits to abdominal pain more of like generalized. Notes around the suprapubic area pain in the epigastric region. She denies any fever or chills. Vital signs stable. Laboratory workup shows normal CBC and BMP, with normal lipase, urinalysis pending Allergies No Known Allergies Allergy (Verified 08/08/24 13:06) Home Medications: Metformin HCl 500 mg PO BID 02/24/23 Pantoprazole [Protonix Tab*] 40 mg PO BID #44 tab 12/18/23 Cholecalciferol (Vitamin D3) [Vitamin D 5,000 IU Cap*] 5,000 unit PO DAILY 05/07/24 Amitriptyline HCl 150 mg PO BEDTIME 08/08/24 Phenazopyrididine [Pyridium*] 200 mg PO TIDP PRN 08/08/24 Nitrofurantoin Monohyd/M-Cryst [Macrobid 100 mg Capsule] 100 mg PO DAILY 90 Days #90 cap 08/22/24 Apixaban [Eliquis] 5 mg PO DAILY 09/16/24 lisinopriL [Lisinopril] 20 mg PO DAILY 09/16/24 - Past Medical/Surgical History Diabetic: Yes -: kidney stones -: Gastroesophageal reflux disease w Hiatal hernia -: Esophageal spasm -: Attention deficit disorder -: Hypertension -: Depression with anxiety -: Hyperlipidemia -: Chronic pain -: Fatty liver, nonalcoholic -: Urinary incontinence/Nephrolithiasis -: Recurrent UTI -: Indwelling Dobson. -: Hysterectomy -: Cholecystectomy -: Appendectomy -: back surgery -: knee surgery -: foot surgery -: EGD/ERCP -: Cardiac catheterization, no stent Psychosocial/ Personal History: Patient lives at home alone - Family History Father -: Diabetes, Cancer Notes: Type 2 Mother -: Hypertension, Diabetes, Other (see notes) Notes: Hypoglycemia Sister Notes: epilepsy - Social History Smoking Status: Never smoker Alcohol use: No CD- Drugs: No Caffeine use: No Review of Systems Gastrointestinal: Nausea, Vomiting, Abdominal Pain Physical Examination - Physical Exam General: Alert, In no apparent distress, Obese HEENT: Atraumatic, Normocephalic, PERRLA Neck: Supple, 2+ carotid pulse no bruit, JVD not distended Respiratory: Clear to auscultation bilaterally, Normal air movement Cardiovascular: No edema, Normal pulses, Regular rate/rhythm, Normal S1 S2 Gastrointestinal: Normal bowel sounds, Soft and benign, No ascites, No tenderness, No rebound, No guarding, Other (Suprapubic catheter in situ, fleshy sites. No erythema or discharge) Musculoskeletal: No clubbing, No swelling Integumentary: No rashes, No breakdown, No significant lesion Neurological: Normal speech, Normal strength at 5/5 x4 extr, Sensation intact, Cranial nerves 3-12 intact Urinary: Suprapubic catheter - Studies Laboratory Data (last 24 hrs) 10/12/24 10/12/24 10/12/24 16:47 16:47 16:47 WBC 6.90 Hgb 11.1 L Hct 34.4 L Plt Count 234 PT 12.3 INR 1.09 Sodium Potassium BUN Creatinine Glucose Magnesium Total Bilirubin AST ALT Alkaline Phosphatase Lipase 30 10/12/24 16:47 WBC Hgb Hct Plt Count PT INR Sodium 139 Potassium 4.1 BUN 17 Creatinine 0.78 Glucose 121 H Magnesium 2.1 Total Bilirubin 0.3 AST 11 L ALT 15 Alkaline Phosphatase 71 Lipase Assessment and Plan - Plan Impression Leaking suprapubic catheter/dysfunction History of urinary retention Acute on chronic pancreatitis Presumed UTI Hypertension DM History of diverticulitis Plan Will admit patient to observation Urology consult in a.m. for Dobson catheter/suprapubic catheter change Follow UA Start empiric antibiotics with Rocephin Clinical findings of pancreatitis as well as on imaging but normal lipase Keep n.p.o. for now Insulin sliding scale with Accu-Cheks Start gentle IV fluid with LR Pain control Obtain home med records and resume DVT prophylaxis Advance directivefull code Total time spent in evaluation discussion with patient greater than 70 minutes. - Advance Directives Does patient have a Living Will: Yes Does patient have a Durable POA for Healthcare: No Time Spent Managing Pts Care (In Minutes): 70
[2024-10-12] MEDS ORDERED: PROMETHAZINE INJ 25 MG/ML AMP IM PRN (20:54)
[2024-10-12 22:36] VITALS: O2SAT 96
[2024-10-12 22:43] VITALS: BMI 28.3
[2024-10-12] MEDS: MORPHINE 2 MG/ML SYR IV PRN (22:44)
[2024-10-12] MEDS: HYDRALAZINE HCL 20 MG/ML VIAL IV PRN (22:45)
[2024-10-12] MEDS: FAMOTIDINE 20 MG/2 ML VIAL IV SCH (22:45)
[2024-10-12] MEDS: CEFEPIME 1 GM in NA CHLORIDE 0.9% 100 ML IV SCH (22:48)
[2024-10-12] MEDS: Ringers Lactate 1,000 ML IV SCH (22:50)
[2024-10-13 05:24] LABS: Absolute Lymphocytes (CBC) 1.3 K/uL (0.7-4.9); Hematocrit 34.2 % (36.0-45.0); Hemoglobin 11.4 g/dL (12.0-15.0); MCH 25.5 pg (27.0-35.0); MCHC 33.4 g/dL (32.0-36.0); MCV 76.4 fL (80-100); MPV 8.1 fL (7.6-11.3); Nucleated RBC Absolute Count 0.0 (0-0); Nucleated Red Blood Cells % 0.1 % (0-0); RBC Red Blood Cell Count 4.47 M/uL (3.86-4.86); White Blood Count 8.90 thou/uL (4.3-10.9)
[2024-10-13 05:44] LABS: AST/SGOT 13 U/L (15-37); Albumin 3.2 g/dL (3.4-5.0); Albumin/Globulin Ratio 0.8 (1.1-1.8); Alkaline Phosphatase 70 U/L (45-117); Anion Gap 8.9 mEq/L (5.0-15.0); BUN Blood Urea Nitrogen 16 mg/dL (7-18); Globulin 4.0 g/dL (2.3-3.5); Glucose Level 145 mg/dL (74-106); Potassium 3.9 mEq/L (3.5-5.1)
[2024-10-13 05:45] LABS: ALT/SGPT < 14 U/L (13-56)
[2024-10-13] MEDS: PNEUMOCOCCAL VACCINE 0.5 ML IMVAC ONE (08:00)
[2024-10-13] MEDS: PANTOPRAZOLE 40MG TABLET PO SCH (09:00)
--- NOTE | 2024-10-13 13:38 | P.PN ---
Subjective Date of Service: 10/13/24 Chief Complaint: Leaking suprapubic catheter Patient is complaining epigastric pain. Suprapubic catheter continues to leak, No recorded fever. No vomiting today. Patient denies any diarrhea. Physical Examination - Vital Signs Temperature: 98.1 F Blood Pressure: 119/56 Pulse: 70 Respirations: 16 Pulse Ox (%): 92 - Studies Laboratory Data (last 24 hrs) 10/12/24 10/12/24 10/12/24 16:47 16:47 16:47 WBC 6.90 Hgb 11.1 L Hct 34.4 L Plt Count 234 PT 12.3 INR 1.09 Sodium Potassium BUN Creatinine Glucose Magnesium Total Bilirubin AST ALT Alkaline Phosphatase Lipase 30 10/12/24 16:47 WBC Hgb Hct Plt Count PT INR Sodium 139 Potassium 4.1 BUN 17 Creatinine 0.78 Glucose 121 H Magnesium 2.1 Total Bilirubin 0.3 AST 11 L ALT 15 Alkaline Phosphatase 71 Lipase Assessment And Plan - Plan Physical examination General: Alert and oriented x 3, NAD, HEENT: Anicteric sclera Heart: Heart sounds 1 and 2 normal, regular rhythm, normal rate, no pedal edema Lungs: Clear to auscultation bilaterally, adequate breath sounds bilaterally, no rhonchi or crackles. Abdomen: Soft, nondistended, nontender, normal bowel sounds. Suprapubic catheter in place Extremities: No tenderness, no deformity Skin: Normal skin turgor, no rash, no nodules or ulcers. Neuro: No focal motor deficit. Normal speech. Psychiatry: Normal mood, no agitation. Diagnosis: Leaking suprapubic catheter/dysfunction History of urinary retention Acute on chronic pancreatitis Hypertension DM Plan: Leaking suprapubic catheter Suprapubic catheter dysfunction History of urinary incontinence I spoke to urology Dr. Garcia. Suprapubic catheter can be changed as an outpatient and not emergent according to Dr. Garcia. Patient was complaining of urinary retention. Will obtain bladder scan to see if she is retaining urine. Plan is to use insert urethral Dobson catheter if she is retaining urine and she can follow-up with Dr. Garcia as outpatient. Urine analysis is pending. Empiric IV cefepime until UTI is ruled out. Acute on chronic pancreatitis Supportive measures with IV hydration Analgesics as needed. Clear liquid diet. Diabetes mellitus type 2 Insulin sliding scale for glucose management. DVT prophylaxis: Lovenox Advanced directive: Full code
[2024-10-13] MEDS: AMITRIPTYLINE 50 MG TAB PO SCH (20:56)
[2024-10-13] MEDS: INSULIN REGULAR (HUMAN) 100 UNIT/ML SQ SCH ×2 (20:57)
[2024-10-13] MEDS: ONDANSETRON 4 MG/2 ML VIAL IV PRN (21:10)
[2024-10-14] MEDS: ENOXAPARIN 40 MG/0.4 ML SQ SCH (09:41)
[2024-10-14] MEDS: VITAMIN D 5,000 UNIT CAP PO SCH (09:42)
--- NOTE | 2024-10-14 13:53 | P.PN ---
Subjective Date of Service: 10/14/24 Chief Complaint: Leaking suprapubic catheter Patient states his pain is better today. She is tolerating clear liquid diet No vomiting. Patient denies any diarrhea. Physical Examination - Vital Signs Temperature: 98 F Blood Pressure: 136/62 Pulse: 56 Respirations: 20 Pulse Ox (%): 92 Assessment And Plan - Plan Physical examination General: Alert and oriented x 3, NAD, HEENT: Anicteric sclera Heart: Heart sounds 1 and 2 normal, regular rhythm, normal rate, no pedal edema Lungs: Clear to auscultation bilaterally, adequate breath sounds bilaterally, no rhonchi or crackles. Abdomen: Soft, nondistended, nontender, normal bowel sounds. Suprapubic catheter in place Extremities: No tenderness, no deformity Skin: Normal skin turgor, no rash, no nodules or ulcers. Neuro: No focal motor deficit. Normal speech. Psychiatry: Normal mood, no agitation. Diagnosis: Leaking suprapubic catheter/dysfunction History of urinary retention Acute on chronic pancreatitis Hypertension DM Plan: Leaking suprapubic catheter Suprapubic catheter dysfunction History of urinary incontinence I spoke to urology Dr. Garcia. Suprapubic catheter can be changed as an outpatient and not emergent according to Dr. Garcia. Patient was complaining of urinary retention. Will obtain bladder scan to see if she is retaining urine. Plan is to use insert urethral Dobson catheter if she is retaining urine and she can follow-up with Dr. Garcia as outpatient. Urine analysis is pending. Empiric IV cefepime until UTI is ruled out. Acute on chronic pancreatitis Supportive measures with IV hydration Analgesics as needed. Clear liquid diet. Diabetes mellitus type 2 Insulin sliding scale for glucose management. 10/14 Patient with symptoms improved. Advance to full liquid diet and monitor response. Purewick is in place. Obtain UA with reflex culture Continue IV cefepime Continue IV hydration DVT prophylaxis: Lovenox Advanced directive: Full code
[2024-10-14 14:40] LABS: Sqamous Epithelial <5 /HPF (None Seen); Urine Crystals Unidentified Few /HPF (None Seen); Urine Culture Reflex Order REFLEXED; Urine Microscopic Reflex YN ORDER UMIC; Urine WBC Clump Occasional /HPF (None Seen); Urine Yeast (Budding) Occasional /HPF (None Seen)
[2024-10-14] MEDS ORDERED: ALBUTEROL 2.5 MG/3 ML NEB SOL NEB PRN (14:52)
[2024-10-15 04:28] LABS: Absolute Lymphocytes (CBC) 1.3 K/uL (0.7-4.9); Hematocrit 29.4 % (36.0-45.0); Hemoglobin 9.7 g/dL (12.0-15.0); MCH 25.4 pg (27.0-35.0); MCHC 33.2 g/dL (32.0-36.0); MCV 76.5 fL (80-100); MPV 8.2 fL (7.6-11.3); Nucleated RBC Absolute Count 0.0 (0-0); Nucleated Red Blood Cells % 0.1 % (0-0); RBC Red Blood Cell Count 3.84 M/uL (3.86-4.86); White Blood Count 3.80 thou/uL (4.3-10.9)
[2024-10-15 04:44] LABS: Anion Gap 7.8 mEq/L (5.0-15.0); BUN Blood Urea Nitrogen 11.0 mg/dL (7-18); Glucose Level 151.0 mg/dL (74-106); Potassium 3.8 mEq/L (3.5-5.1)
[2024-10-15 09:32] LABS: Sqamous Epithelial <5 /HPF (None Seen); Urine Crystals Unidentified Few /HPF (None Seen); Urine Culture Reflex Order REFLEXED; Urine Microscopic Reflex YN ORDER UMIC; Urine WBC Clump Rare /HPF (None Seen); Urine Yeast (Budding) Trace /HPF (None Seen)
--- NOTE | 2024-10-15 15:47 | P.PN ---
Subjective Date of Service: 10/15/24 Chief Complaint: Leaking suprapubic catheter Patient has no new complaint. She is tolerating diet. No vomiting. Patient denies any diarrhea. Noted patient is voiding mostly via the urethra into the purewick with little or no amount coming through the suprapubic catheter. Physical Examination - Vital Signs Temperature: 98.1 F Blood Pressure: 172/76 Pulse: 67 Respirations: 18 Pulse Ox (%): 96 Assessment And Plan - Plan Physical examination General: Alert and oriented x 3, NAD, HEENT: Anicteric sclera Heart: Heart sounds 1 and 2 normal, regular rhythm, normal rate, no pedal edema Lungs: Clear to auscultation bilaterally, adequate breath sounds bilaterally, no rhonchi or crackles. Abdomen: Soft, nondistended, nontender, normal bowel sounds. Suprapubic catheter in place Extremities: No tenderness, no deformity Skin: Normal skin turgor, no rash, no nodules or ulcers. Neuro: No focal motor deficit. Normal speech. Psychiatry: Normal mood, no agitation. Diagnosis: Leaking suprapubic catheter/dysfunction History of urinary retention Acute on chronic pancreatitis Hypertension DM Plan: Leaking suprapubic catheter Suprapubic catheter dysfunction History of urinary incontinence I spoke to urology Dr. Garcia. Suprapubic catheter can be changed as an outpatient and not emergent according to Dr. Garcia. Patient was complaining of urinary retention. Will obtain bladder scan to see if she is retaining urine. Plan is to use insert urethral Dobson catheter if she is retaining urine and she can follow-up with Dr. Garcia as outpatient. Urine analysis is pending. Empiric IV cefepime until UTI is ruled out. Acute on chronic pancreatitis Supportive measures with IV hydration Analgesics as needed. Clear liquid diet. Diabetes mellitus type 2 Insulin sliding scale for glucose management. 10/14 Patient with symptoms improved. Advance to full liquid diet and monitor response. Purewick is in place. Obtain UA with reflex culture Continue IV cefepime Continue IV hydration 10/15 Patient with a history of recurrent UTI. UA suggest the presence of UTI, urine cultures pending. Prior history of ESBL Proteus mirabilis and E. coli, both organisms sensitive to cefepime. Will change IV cefepime to meropenem while we wait for the urine culture to result. Organism isolation may also be a colonization since no fever or significant urinary symptoms. Infectious disease consulted Advance diet to soft consistency as tolerated DVT prophylaxis: Lovenox Advanced directive: Full code
[2024-10-15] MEDS: Meropenem 1,000 MG in NA CHLORIDE 0.9% 100 ML IV SCH (16:43)
[2024-10-16 12:01] VITALS: TEMP 98
--- NOTE | 2024-10-16 12:16 | P.CNS ---
Date of Consult: 10/16/24 reason for consult:UTI, hx ESBL infection HPI:78-year-old female past medical history stated below who is from [facility] recently had suprapubic catheter 3 weeks ago but report leakage as well as nausea and vomiting. On arrival in the ED suprapubic catheter unable to be changed. Urology was consulted and was told Suprapubic catheter can be changed as outpatient. CT of the abdomen shows Progressive inflammatory changes centered around the uncinate process and extending along the mesenteric root, could relate to acute on top of chronic pancreatitis. Alternatively, mesenteric panniculitis, or portal vein pathology can also be considered. She denies any fever or chills. Vital signs stable. WbC 3.8, urine pending. pt is currently on merrem ROS; please see hpi Allergies No Known Allergies Allergy (Verified 08/08/24 13:06) Current Medications Albuterol Sulfate (Albuterol 2.5 Mg/3 Ml Neb Kristin) 2.5 mg NEB TIDRESP PRN PRN Reason: SHORTNESS OF BREATH Amitriptyline HCl (Amitriptyline 50 Mg Tab) 150 mg PO BEDTIME RAJI Last Admin: 10/15/24 21:07 Dose: 150 mg Cholecalciferol (Vitamin D 5,000 Unit Cap) 5,000 unit PO DAILY RAJI Last Admin: 10/16/24 08:18 Dose: 5,000 unit Enoxaparin Sodium (Enoxaparin 40 Mg/0.4 Ml) 40 mg SQ DAILY RAJI Last Admin: 10/16/24 08:19 Dose: 40 mg Hydralazine HCl (Hydralazine Hcl 20 Mg/Ml Vial) 10 mg IV Q6HP PRN PRN Reason: FOR SBP>160 OR DBP>100 MMHG Last Admin: 10/15/24 15:41 Dose: 10 mg Lactated Ringer's (Lactated Ringers) 1,000 mls @ 50 mls/hr IV .Q20H RAJI Last Admin: 10/16/24 04:42 Dose: 1,000 mls Meropenem 1,000 mg/ Sodium (Chloride) 100 mls @ 200 mls/hr IV Q8HR RAJI Last Admin: 10/16/24 08:18 Dose: 100 mls Insulin Human Regular (Insulin Regular (Human) 100 Unit/Ml) 0 unit SQ ACHS RAJI; Protocol Last Admin: 10/16/24 11:29 Dose: 4 unit Lisinopril (Lisinopril 20 Mg Tab) 20 mg PO DAILY [facility] Last Admin: 10/16/24 08:19 Dose: 20 mg Morphine Sulfate (Morphine 2 Mg/Ml Syr) 2 mg IV Q4H PRN PRN Reason: Pain scale 5-7 (Moderate) Last Admin: 10/13/24 10:05 Dose: 2 mg Ondansetron HCl (Ondansetron 4 Mg/2 Ml Vial) 4 mg IV Q8H PRN PRN Reason: NAUSEA / VOMITING Last Admin: 10/13/24 21:10 Dose: 4 mg Pantoprazole Sodium (Pantoprazole 40mg Tablet) 40 mg PO BID [facility]; Protocol Last Admin: 10/16/24 08:18 Dose: 40 mg Promethazine HCl (Promethazine Inj 25 Mg/Ml Amp) 12.5 mg IM Q6H PRN PRN Reason: NAUSEA / VOMITING - Past Medical/Surgical History Diabetic: Yes -: kidney stones -: Gastroesophageal reflux disease w Hiatal hernia -: Esophageal spasm -: Attention deficit disorder -: Hypertension -: Depression with anxiety -: Hyperlipidemia -: Chronic pain -: Fatty liver, nonalcoholic -: Urinary incontinence/Nephrolithiasis -: Recurrent UTI -: Indwelling Dobson. -: Hysterectomy -: Cholecystectomy -: Appendectomy -: back surgery -: knee surgery -: foot surgery -: EGD/ERCP -: Cardiac catheterization, no stent Psychosocial/ Personal History: Patient lives at home alone - Family History Father -: Diabetes, Cancer Notes: Type 2 Mother -: Hypertension, Diabetes, Other (see notes) Notes: Hypoglycemia Sister Notes: epilepsy - Social History Smoking Status: Never smoker Alcohol use: No CD- Drugs: No Caffeine use: No Objective Temp Pulse Resp BP Pulse Ox 98.0 F 72 17 145/73 H 94 10/16/24 12:00 10/16/24 12:00 10/16/24 12:00 10/16/24 12:00 10/16/24 12:00 - Physical Exam General: Alert, In no apparent distress, HEENT: Atraumatic, Normocephalic, PERRLA Neck: Supple Respiratory: CTA Cardiovascular: RRR Gastrointestinal: normal BS, ND, NT : Suprapubic catheter and female purwick seen. No erythema or discharge Musculoskeletal: no swelling Neurological: respond to questions appropriately Labs: wbc 3.8, Hgb 9.7, plt count 169, bun 11, cr 0.79, albumin 3.2 assessment and planning Leaking suprapubic catheter/dysfunction Pyuria History of urinary retention Acute on chronic pancreatitis DM moderate protein calories malnourishment f/u with urologist outpatient urine culture pending continue merrem. anticipating 5 days abx treatment thank you for the consult case discussed and in agreement with Dr Kwan
--- NOTE | 2024-10-16 14:30 | P.DS ---
Admission Date: 10/14/24 Discharge Date: 10/16/24 Disposition: DC HOME/HOME HEALTH CARE Discharge Condition: FAIR Reason for Admission: Leaking suprapubic catheter Brief History of Present Illness: 78-year-old female past medical history of HTN/DM/diverticulitis/urinary retention with Botox injection, indwelling chronic suprapubic catheter since the last 1 year, recently replaced 3 weeks ago but noted to be persistently leaking since then. She reported abdominal cramps, associated nausea and vomiting on the day of presentation. On arrival in the ED staff could not change the suprapubic catheter. Patient CT of the abdomen showed bilateral mild hydronephrosis with some stranding. Also noted inflammatory changes around the pancreatic with signet process worrisome for chronic pancreatitis. Laboratory workup shows normal CBC and BMP, with normal lipase. Patient was hospitalized for further management. Hospital Course: Diagnosis: Leaking suprapubic catheter/dysfunction History of urinary retention Acute on chronic pancreatitis Hypertension DM Patient admitted to the medical floor for medical problems addressed: Leaking suprapubic catheter Suprapubic catheter dysfunction History of urinary incontinence I spoke to urology Dr. Garcia. Suprapubic catheter can be changed as an outpatient and not emergent according to Dr. Garcia. Patient was complaining of urinary retention. Patient voided mostly via the urethra, Dobson was removed was coming from the suprapubic catheter. She has a history of urinary symptoms as needed purewick. Urine cultures taken on 10/12/2024 and 10/14/2024 all showed no growth. Blood cultures yielded no growth. Patient treated briefly with IV cefepime and changed to IV meropenem. Most recent urine culture during previous hospitalization 1 month ago grew E. coli and ESBL Proteus are sensitive to cefepime. Urine culture showed no growth. Patient received 5 days of antibiotics. She is on prophylactic nitrofurantoin which is resumed on discharge. Patient informed to follow-up with Dr. Garcia within 1 to 2 weeks for suprapubic catheter exchange due to the leak. Acute on chronic pancreatitis Treated with supportive measures with IV hydration and analgesics as needed. Patient tolerated diet advancement to soft consistency Diabetes mellitus type 2 Managed with insulin sliding scale during the hospital stay. Home dose metformin resumed on discharge. Vital Signs/Physical Exam: Temp Pulse Resp BP Pulse Ox 98.0 F 72 17 145/73 H 94 10/16/24 12:00 10/16/24 12:00 10/16/24 12:00 10/16/24 12:00 10/16/24 12:00 General: Alert, In no apparent distress, Oriented x3 HEENT: Mucous membr. moist/pink, Sclerae nonicteric Neck: Supple, JVD not distended Respiratory: Clear to auscultation bilaterally, Normal air movement Cardiovascular: No edema, Regular rate/rhythm, Normal S1 S2 Gastrointestinal: Normal bowel sounds, Soft and benign, Non-distended Musculoskeletal: No swelling Integumentary: No rashes, No cyanosis Neurological: Normal speech, Normal strength at 5/5 x4 extr Laboratory Data at Discharge: WBC 3.80 thou/uL (4.3-10.9) L 10/15/24 03:58 Hgb 9.7 g/dL (12.0-15.0) L 10/15/24 03:58 Hct 29.4 % (36.0-45.0) L 10/15/24 03:58 Plt Count 169 thou/uL (152-406) 10/15/24 03:58 PT 12.3 SECONDS (10-13.0) 10/12/24 16:47 INR 1.09 10/12/24 16:47 Sodium 140 mEq/L (136-145) 10/15/24 03:58 Potassium 3.8 mEq/L (3.5-5.1) 10/15/24 03:58 BUN 11 mg/dL (7-18) 10/15/24 03:58 Creatinine 0.79 mg/dL (0.55-1.02) 10/15/24 03:58 Glucose 151 mg/dL (74-106) H 10/15/24 03:58 Magnesium 2.1 mg/dL (1.6-2.4) 10/12/24 16:47 Total Bilirubin 0.4 mg/dL (0.2-1.0) 10/13/24 05:15 AST 13 U/L (15-37) L 10/13/24 05:15 ALT < 14 U/L (13-56) 10/13/24 05:15 Alkaline Phosphatase 70 U/L (45-117) 10/13/24 05:15 Lipase 30 U/L (13-75) 10/12/24 16:47 Home Medications: Metformin HCl 500 mg PO BID 02/24/23 Pantoprazole [Protonix Tab*] 40 mg PO BID #44 tab 12/18/23 Cholecalciferol (Vitamin D3) [Vitamin D 5,000 IU Cap*] 5,000 unit PO DAILY 05/07/24 Amitriptyline HCl 150 mg PO BEDTIME 08/08/24 Nitrofurantoin Monohyd/M-Cryst [Macrobid 100 mg Capsule] 100 mg PO DAILY 90 Days #90 cap 08/22/24 Apixaban [Eliquis] 5 mg PO DAILY 09/16/24 lisinopriL [Lisinopril] 20 mg PO DAILY 09/16/24 Hydrocodone 5/APAP 325 [Sanford 5/325] 1 tab PO Q6H PRN #15 tab 10/16/24 New Medications: Hydrocodone 5/APAP 325 [[place]ford 5/325] 1 tab PO Q6H PRN #15 tab PRN Reason: Pain Physician Discharge Instructions: PROBLEM: (list out Acute Problems for the Current visit) GOAL: Clear understanding of disease process INSTRUCTIONS: Call the 2nd floor nurses station if you have any questions at [phone] Follow up with your PCP in 1-2 weeks. Follow up with Dr. Garcia in 1-2 weeks. If your symptoms worsen return to the ER or call 911. Diet: ADA Activity: Fall precautions Follow up with an Internal Medicine Physician of your choice: TONI CASSIDY MD [address] [facility], [address] [place] [address] ACCEPTING NEW PATIENTS! GAURAV CARMONA MD [address] [facility], [place] [address] SWATI LIMA MD [address] [place] [address] MATTY ALMENDAREZ MD [address] [facility], [place] [address] WILDA MORE MD [address] [place] [address] Diet: ADA Activity: Fall precautions Followup: NONE,NONE [Primary Care Provider] - 1-2 Weeks Jonh Garcia [ACTIVE - CAN ADMIT] - 1-2 Weeks Time spent managing pt's care (in minutes): 38
[2024-10-16 16:10] VITALS: BP 130/75
== END 2024-10-16 17:12 | disposition home health service (06) | DRG 698 ==
LOC: ER 15:03 → 2ND 20:52 → OBSVTOIN 10-14 09:56
PROVIDERS: ADMIT Internal Medicine; ATTEND Internal Medicine
DX: T83.010A Breakdown (mechanical) of cystostomy catheter, initial encounter (principal); K85.90 Acute pancreatitis without necrosis or infection, unspecified; K86.1 Other chronic pancreatitis; N13.6 Pyonephrosis; E44.0 Moderate protein-calorie malnutrition; I10 Essential (primary) hypertension; E11.9 Type 2 diabetes mellitus without complications; K21.9 Gastro-esophageal reflux disease without esophagitis; R33.9 Retention of urine, unspecified; Z60.2 Problems related to living alone; Z79.01 Long term (current) use of anticoagulants; Z79.84 Long term (current) use of oral hypoglycemic drugs; Z90.49 Acquired absence of other specified parts of digestive tract; Z79.899 Other long term (current) drug therapy; Z87.891 Personal history of nicotine dependence; Z68.28 Body mass index [BMI] 28.0-28.9, adult
CPT/HCPCS: 36415; 74176; 80048; 80053; 80076; 81001; 82947; 83690; 83735; 83880; 84484; 85025; 85610; 87086; 87088; 93005; 96365; 96366; 96375; 99285; G0378; J0360; J0692; J1171; J1650; J1815; J2185; J2270; J2405; J2550; J7120; J7613

== ENCOUNTER 2024-12-03 15:45 | Emergency (ER) | payer OTHER ==
[2024-12-03 17:12] LABS: Absolute Lymphocytes (CBC) 1.8 K/uL (0.7-4.9); Hematocrit 35.7 % (36.0-45.0); Hemoglobin 11.9 g/dL (12.0-15.0); MCH 26.4 pg (27.0-35.0); MCHC 33.2 g/dL (32.0-36.0); MCV 79.5 fL (80-100); MPV 7.9 fL (7.6-11.3); Nucleated RBC Absolute Count 0.0 (0-0); Nucleated Red Blood Cells % 0.0 % (0-0); RBC Red Blood Cell Count 4.49 M/uL (3.86-4.86); White Blood Count 7.80 thou/uL (4.3-10.9)
[2024-12-03 17:38] LABS: ALT/SGPT 20 U/L (13-56); Albumin 3.3 g/dL (3.4-5.0); Albumin/Globulin Ratio 0.8 (1.1-1.8); Alkaline Phosphatase 79 U/L (45-117); Anion Gap 11.0 mEq/L (5.0-15.0); BUN Blood Urea Nitrogen 16 mg/dL (7-18); Globulin 4.2 g/dL (2.3-3.5); Glucose Level 94 mg/dL (74-106); Magnesium 2.0 mg/dL (1.6-2.4); Potassium 4.0 mEq/L (3.5-5.1); Troponin High Sensitivity 12.3 pg/mL (<58.9)
--- NOTE | 2024-12-03 17:47 | RAD REPORT ---
EXAM: CT brain without contrast HISTORY: DIZZINESS COMPARISON: 09/21/2024 TECHNIQUE: Multiple contiguous axial images were obtained and a CT of the brain without contrast. Sag ittal and coronal reformats were performed. FINDINGS: No evidence of hydrocephalus, intracranial hemorrhage, or extra-axial fluid collection. Moderate brain atrophy with moderate periventricular and deep white matter hypodensities, suggestive of chronic microvascular ischemic changes, stable. The calvarium is intact. The visualized paranasal sinuses and mastoid air cells are essentially clear . IMPRESSION: No evidence of acute intracranial abnormality. EXAM: CT of the cervical spine without contrast HISTORY: DIZZINESS COMPARISON: None TECHNIQUE: Multiple contiguous axial images were obtained in a CT of the cervical spine without contr ast. Sagittal and coronal reformats were performed. FINDINGS: The vertebral bodies demonstrate normal height and alignment. No evidence of acute fracture or subluxation.. Stable moderate degenerative changes are present. No prevertebral soft tissue swelling is seen. The posterior facets are well aligned. Diminutive appearance of the right first rib again seen. Vane l alignment of the skull base with the cervical spine is seen. The lung apices are unremarkable. IMPRESSION: No evidence of acute osseous abnormality of the cervical spine.
[2024-12-03 17:49] LABS: AST/SGOT < 10 U/L (15-37); Bilirubin Indirect, Calculated 0.3 mg/dL (0.2-0.8)
[2024-12-03 17:51] LABS: Sqamous Epithelial <5 /HPF (None Seen); Urine Culture Reflex Order REFLEXED; Urine Microscopic Reflex YN ORDER UMIC
--- NOTE | 2024-12-03 18:22 | EDPHYS ---
Physician Documentation [facility] Name: Isadora Bettencourt Age: 78 yrs Sex: Female : 1945 Arrival Date: 12/03/2024 Time: 15:45 Bed 20 Private MD: ED Physician Lincoln Powell HPI: 12/03 15:49 This 78 yrs old Female presents to ER via EMS with complaints of Fall Injury. kb 15:49 Patient is a 78-year-old female who presents for fall that occurred just prior to kb arrival. Patient is also reports falling yesterday. States she hit her head both days, denies LOC. States she was walking across her living room got dizzy and fell. States she might of gotten dizzy yesterday but she is not sure. Reports nausea.. Historical: - Allergies: 15:48 No Known Allergies; jp5 - PMHx: 15:48 Diverticulitis; DM; HTN; HTN; Pancreatitis; suprapubic catheter.; jp5 - Immunization history: Last tetanus immunization: - up to date. - Infectious Disease History:: Denies. - Social history:: Smoking status: unknown. ROS: 15:49 Constitutional: As per HPI kb Exam: 15:49 Constitutional: This is a well developed, well nourished patient who is awake, alert, kb and in no acute distress. Head/Face: Normocephalic, atraumatic. ENT: Moist Mucous membranes Cardiovascular: Regular rate Respiratory: Respirations even and unlabored. No increased work of breathing. Talking in full sentences Abdomen/GI: Soft, non-tender. No distention Skin: Warm, dry with normal turgor. Normal color. MS/ Extremity: Pulses equal, no cyanosis. Neurovascular intact. Full, normal range of motion. Neuro: Awake and alert, GCS 15, oriented to person, place, time, and situation. 15:49 Abdomen/GI: suprapubic catheter in place, 16:01 ECG was reviewed by the Attending Physician. Vital Signs: 15:59 BP 178 / 81 LA Supine (auto/reg); Pulse 68; Resp 20 S; Temp 98(O); Pulse Ox 97% on R/A; jp5 17:00 BP 175 / 83; Pulse 69; Resp 18; Pulse Ox 99% on R/A; jp5 18:00 BP 177 / 71; Pulse 66; Resp 18; Temp 97.8; Pulse Ox 97% on R/A; jp5 19:15 BP 168 / 72; Pulse 68; Resp 20; Temp 98; Pulse Ox 100% ; kj2 MDM: 15:47 Medical Screening Exam initiated kb 18:20 Differential diagnosis: closed head injury, contusion, hematoma, abnormal electrolytes, kb uti. Data reviewed: vital signs, nurses notes. Consideration of Admission/Observation Escalation of care including admission/observation considered. admission considered but pt denies dizziness at this time. Will treat UTI. Pt in agreement with plan of care. Historians other than the Patient: EMS: [facility]. Counseling: I had a detailed discussion with the patient and/or guardian regarding the historical points, exam findings, and any diagnostic results supporting the discharge/admit diagnosis, lab results, radiology results, the need for outpatient follow up, a family practitioner, to return to the emergency department if symptoms worsen or persist or if there are any questions or concerns that arise at home. 12/03 15:48 Order name: Basic Metabolic Panel; Complete Time: 17:49 kb 12/03 15:48 Order name: CBC with Diff; Complete Time: 17:20 kb 12/03 15:48 Order name: Hepatic Function; Complete Time: 17:49 kb 12/03 15:48 Order name: Magnesium; Complete Time: 17:49 kb 12/03 15:48 Order name: Troponin High Sensitivity; Complete Time: 17:49 kb 12/03 15:48 Order name: UA Rfx Rocael Cult if indicated; Complete Time: 18:00 kb 12/03 17:59 Order name: Urine Culture [facility] 12/03 15:48 Order name: CT Head C Spine; Complete Time: 17:49 kb 12/03 15:48 Order name: Cardiac monitoring; Complete Time: 15:53 kb 12/03 15:48 Order name: EKG - Nurse/Tech; Complete Time: 15:53 kb 12/03 15:48 Order name: IV Saline Lock; Complete Time: 17:12 kb 12/03 15:48 Order name: Labs collected and sent; Complete Time: 17:12 kb 12/03 15:48 Order name: NPO; Complete Time: 17:15 kb 12/03 15:48 Order name: O2 Per Protocol; Complete Time: 15:53 kb 12/03 15:48 Order name: O2 Sat Monitoring; Complete Time: 15:53 kb 12/03 15:48 Order name: Orthostatics; Complete Time: 17:19 kb EC:01 Rate is 68 beats/min. Rhythm is regular. QRS Blessing is Normal. FL interval is normal at kb 166 msec. QRS interval is normal at 146 msec. QT interval is prolonged at 514 msec. Administered Medications: 18:27 Drug: Rocephin IV 1 grams IV at calculated rate once; Given slow IV push per pharmacy jp5 instructions Route: IV; Rate: calculated rate; Site: left forearm; 20:02 Follow up: IV Status: Completed infusion; IV Intake: 10ml kj2 Disposition Summary: 12/03/24 18:22 Discharge Ordered Notes: Location: Home kb Condition: Stable kb Diagnosis - UTI/ Urinary tract infection, site not specified kb Followup: kb - With: Emergency Department - When: As needed - Reason: Worsening of condition Followup: kb - With: Private Physician - When: 2 - 3 days - Reason: Recheck today's complaints, Continuance of care, Re-evaluation by your physician Discharge Instructions: - Discharge Summary Sheet kb - Urinary Tract Infection, Adult, [id number] kb Forms: - Medication Reconciliation Form kb - Antibiotic Education kb - Prescription Opioid Use kb - Patient Portal Instructions kb - Leadership Thank You Letter kb Prescriptions: - cefpodoxime 100 mg Oral Tablet - take 1 tablet ORAL route every 12 hours for 10 days take with food; 20 tablet; kb Refills: 0, Product Selection Permitted Signatures: Dispatcher [employer] EDMecca Levi FNP-C FNP-Ckb Pena, Jailene RN RN jp5 Olivia Stone RN kj2 Corrections: (The following items were deleted from the chart) 15:48 15:48 Head C Spine MPR Wo Con+CT.RAD.BRZ ordered. EDMS EDMS
--- NOTE | 2024-12-03 18:22 | ER ---
Nurse's Notes [facility] Name: Isadora Bettencourt Age: 78 yrs Sex: Female : 1945 Arrival Date: 12/03/2024 Time: 15:45 Bed 20 Private MD: Diagnosis: UTI/ Urinary tract infection, site not specified Presentation: 12/03 15:46 Chief complaint: EMS states: Pt BIB EMS due to fall yesterday and today, pt states she jp5 hit her head both falls, unsure if she had LOC and unsure if she is on blood thinners. Pt states she feels dizzy. Pt is A\T\Ox4. Care prior to arrival: None. Mechanism of Injury: Fall from standing position. 15:46 Acuity: FRANDY 3 jp5 15:46 Method Of Arrival: EMS: [facility] 5 15:46 Coronavirus screen: Client denies travel out of the [place] in the last 14 days. At this jp5 time, the client does not indicate any symptoms associated with coronavirus-19. Ebola Screen: No symptoms or risks identified at this time. Initial Sepsis Screen: Does the patient meet any 2 criteria? No. Patient's initial sepsis screen is negative. Does the patient have a suspected source of infection? No. Patient's initial sepsis screen is negative. Risk Assessment: Do you want to hurt yourself or someone else? Patient reports no desire to harm self or others. Onset of symptoms was December 02, 2024. Triage Assessment: 15:50 General: Appears in no apparent distress. Behavior is calm, cooperative. Pain: jp5 Complains of pain in back of head. Neuro: Level of Consciousness is awake, alert, obeys commands, Oriented to person, place, time, situation, Appropriate for age Reports dizziness. Historical: - Allergies: 15:48 No Known Allergies; jp5 - PMHx: 15:48 Diverticulitis; DM; HTN; HTN; Pancreatitis; suprapubic catheter.; jp5 - Immunization history: Last tetanus immunization: - up to date. - Infectious Disease History:: Denies. - Social history:: Smoking status: unknown. Screenin:50 Abuse screen: Denies threats or abuse. Denies injuries from another. Tuberculosis jp5 screening: No symptoms or risk factors identified. 15:51 [facility] ED Fall Risk Assessment (Adult) History of falling in the last 3 months, jp5 including since admission Yes- fall prone (multiple falls) (3 pts) Confusion or Disorientation No (0 pts) Intoxicated or Sedated No (0 pts) Impaired Gait Yes (1 pt) Mobility Assist Device Used Yes (1 pt) Altered Elimination Yes (1 pt) Score/Fall Risk Level 3 or more points = High Risk Oriented to surroundings, Maintained a safe environment, Educated pt \T\ family on fall prevention, incl call for assistance when getting out of bed, Assessed \T\ reinforced patient's understanding of fall precautions, Provided non-skid footwear, Hourly rounding (assess needs \T\ fall precautionary measures) done, Used ambulatory aids as needed (educated on \T\ assisted with), Used gait belt as appropriate Implemented a Fall Risk Plan of Care, Apply high fall risk patient identification: yellow non skid footwear/ fall signage, Remained w/in arm's length of patient and in sight while toileting, Offered frequent toileting (1:1 observation), Remained with patient while ambulating. Nutritional screening: No deficits noted. Primary Survey: 15:49 NO uncontrolled hemorrhage observed. A: The client is awake and alert. The airway is jp5 patent. The client is alert. Airway: patent. Breathing/Chest: Spontaneous respiratory effort, equal unlabored respirations, breath sounds clear bilaterally, regular pattern, symmetrical chest rise and fall. Respiratory effort: spontaneous, unlabored, Breath sounds: clear, bilaterally. Respiratory pattern: regular, Chest inspection: symmetrical rise and fall of the chest. Circulation: No external hemorrhage present. Regular and strong central pulse, skin warm/dry/normal color. Disability Client is alert. Exposure/Environment: A warming method has been applied: A warm blanket has been provided to the patient. Secondary Survey: 15:52 HEENT: No deficits noted. Gastrointestinal: No deficits noted. : No deficits noted. jp5 Musculoskeletal: No deficits noted. Assessment: 15:48 General: Appears in no apparent distress. Behavior is calm, cooperative. Pain: jp5 Complains of pain in back of head. Neuro: Level of Consciousness is awake, alert, obeys commands, Oriented to person, place, time, situation, Appropriate for age Reports dizziness. 16:45 Reassessment: Patient appears in no apparent distress at this time. No changes from jp5 previously documented assessment. Patient and/or family updated on plan of care and expected duration. Pain level reassessed. Patient is alert, oriented x 3, equal unlabored respirations, skin warm/dry/pink. 19:15 Reassessment: No changes from previously documented assessment. Patient and/or family kj2 updated on plan of care and expected duration. Pain level reassessed. Patient is alert, oriented x 3, equal unlabored respirations, skin warm/dry/pink. 19:50 Reassessment: patient daughter has arrived to transport her home. kj2 Vital Signs: 15:59 BP 178 / 81 LA Supine (auto/reg); Pulse 68; Resp 20 S; Temp 98(O); Pulse Ox 97% on R/A; jp5 17:00 BP 175 / 83; Pulse 69; Resp 18; Pulse Ox 99% on R/A; jp5 18:00 BP 177 / 71; Pulse 66; Resp 18; Temp 97.8; Pulse Ox 97% on R/A; jp5 19:15 BP 168 / 72; Pulse 68; Resp 20; Temp 98; Pulse Ox 100% ; kj2 ED Course: 15:46 Patient arrived in ED. jp5 15:46 Arm band placed on right wrist. jp5 15:47 Mecca Sullivan [facility]C [facility] kb 15:47 Lincoln Powell MD is Attending Physician. kb 15:48 Triage completed. jp5 15:50 Patient has correct armband on for positive identification. Bed in low position. Call jp5 light in reach. Side rails up X 1. 15:50 Patient maintains SpO2 saturation greater than 95% on room air. jp5 15:52 Provided Education on: call light use. jp5 15:52 No provider procedures requiring assistance completed. jp5 15:53 Chyna Wong, RN is Primary Nurse. jp5 16:33 CT Head C Spine In Process Unspecified. EDMS 17:00 Inserted saline lock: 20 gauge in left forearm, using aseptic technique. ,using aseptic jp5 technique. started with US Blood collected. Flushed with 10 mL NS. 17:12 Basic Metabolic Panel Sent. jp5 17:12 CBC with Diff Sent. jp5 17:12 Hepatic Function Sent. jp5 17:12 Magnesium Sent. jp5 17:12 Troponin High Sensitivity Sent. jp5 17:19 UA Rfx Rocael Cult if indicated Sent. jp5 18:33 IV discontinued, intact, bleeding controlled, No redness/swelling at site. Pressure jp5 dressing applied. 18:34 Pt given d/c paperwork, pt waiting in room while attempting to call family for picker/puller. jp5 18:58 pt still trying to call family for a ride. jp5 19:09 Report given to SHARMAINE Ramirez. jp5 20:01 Olivia Stone, RN is Primary Nurse. kj2 Administered Medications: 18:27 Drug: Rocephin IV 1 grams IV at calculated rate once; Given slow IV push per pharmacy jp5 instructions Route: IV; Rate: calculated rate; Site: left forearm; 20:02 Follow up: IV Status: Completed infusion; IV Intake: 10ml kj2 Medication: 15:51 VIS not applicable for this client. jp5 Intake: 20:02 IV: 10ml; Total: 10ml. kj2 Outcome: 18:22 Discharge ordered by . ortiz 18:33 Discharged to home via wheelchair, with family, jp5 18:33 Condition: stable 18:33 Discharge instructions given to patient, Instructed on discharge instructions, follow up and referral plans. medication usage, Demonstrated understanding of instructions, follow-up care, medications, Prescriptions given X 1, 20:03 Patient left the ED. kj2 Signatures: Dispatcher [employer] EDMecca Levi, YONG BURNSP-Chyna Ochoa RN RN jp5 Olivia Stone, RN RN kj2
[2024-12-03] MEDS ORDERED: CEFTRIAXONE 1000 MG/VIAL ONE (18:26)
[2024-12-03 21:05] VITALS: BP 168/72; TEMP 98; O2SAT 100
== END 2024-12-03 20:03 | disposition home or self-care (01) ==
LOC: ER 15:45
DX: N39.0 Urinary tract infection, site not specified (principal); W18.30XA Fall on same level, unspecified, initial encounter
CPT/HCPCS: 96365; 93005; 87088; 85025; 81001; 87086; 80048; 36415; 83735; 80076; 87077; 87186; 84484; 70450; 72125; 99284; 96366; J0696